=== PATIENT | female | born 1955 | race Caucasian/White ===

== ENCOUNTER → 2017-12-06 16:01 | Outpatient (CLI) | payer BC, SELFPAY | PROVIDERS: Family Provider Family Medicine; PCP Family Medicine; Visit Provider Otolaryngology | DX: J32.9 Chronic sinusitis, unspecified (principal) | CPT/HCPCS: 87070; 87186; 87205 ==

== ENCOUNTER 2018-03-26 16:38 | Emergency (ER) | payer BC, SELFPAY ==
[2018-03-26 16:39] VITALS: BP 154/73; PULSE 101; RESP 16; TEMP 36.1; O2SAT 100; BMI 22.3
--- NOTE | 2018-03-26 17:12 | ED.DCSUM_ITS ---
- ER Visit Summary Date of Service: 03/26/18 Chief Complaint: [Bruising to right hand and wrist] History of Present Illness: The patient is a 63 F [presents the emergency department complaint of bruising to right hand and wrist that started today. Patient was just discharged 2 days ago from the hospital after having a thoracoscopy to remove fluid from her right lung. Patient noticed some swelling to the dorsal aspect of the right hand near the base of the thumb this morning and then increase discoloration to the dorsum of the hand. Patient also noticed some discoloration to the volar aspect of the wrist. Patient denies any recent trauma although she did have 3 IVs in her right arm and hand during her stay at [facility]. Patient denies any chest pain or shortness of breath. Patient denies any injury to the hand or wrist.] Physical Examination: [HEENT-PERRLA, EOMI. Cranial nerves II through XII grossly intact. TMs clear. Mucous membranes moist. No adenopathy. Cardiovascular-regular rate and rhythm without murmur or ectopy Lungs-clear to auscultation, chest wall stable without crepitus or subcu emphysema Abdomen-normoactive bowel sounds, soft, nontender, no rebound or rigidity, no peritoneal signs. Extremities-intact ?4, normal range of motion, normal pulses. Patient has ecchymosis to the volar aspect of the wrist as well as the dorsal aspect of the hand. Normal cap refill in all digits. No edema noted. No evidence of cellulitis. She is neurovascular intact. Test Results: [None indicated] Emergency Department Course and Treatment: [I did review with patient CBC from 2 days ago she had normal hemoglobin and her platelet count was over 500,000. At this point I suspect likely bruising or hematoma related to either IV start or spontaneous blood vessel rupture.] Treatment Plan: [Advised use ice to the area] Disposition: [Discharged home in stable condition] Impression: [Hematoma/bruising right hand and wrist] This note was generated with [employer] dictation software. It may contain incorrect words, spelling, and punctuation that were not noted in review of the chart prior to signing ED Disposition - Plan for ED Patient: Chief Complaint: Upper Extremity Injury Referrals: Atul Garcia MD [Primary Care Provider] -
--- NOTE | 2018-03-26 17:12 | ED.DEP ---
ED Disposition - Plan for ED Patient: Chief Complaint: Upper Extremity Injury Instructions: ED Hematoma Referrals: Atul Garcia MD [Primary Care Provider] - 5-7 Days
== END 2018-03-26 17:27 | disposition home or self-care (01) ==
PROVIDERS: Emergency Provider Emergency Medicine; Family Provider Family Medicine; PCP Family Medicine
DX: S60.221A Contusion of right hand, initial encounter (principal); S60.211A Contusion of right wrist, initial encounter; X58.XXXA Exposure to other specified factors, initial encounter; Y93.9 Activity, unspecified; Y92.9 Unspecified place or not applicable; J44.9 Chronic obstructive pulmonary disease, unspecified; Z79.82 Long term (current) use of aspirin; Z79.899 Other long term (current) drug therapy
CPT/HCPCS: 99282

== ENCOUNTER 2020-06-17 21:23 | Inpatient (IN) | payer BC, SELFPAY ==
[2020-06-17 21:23] VITALS: BP 166/94; PULSE 89; RESP 28; TEMP 36.2; O2SAT 87; BMI 20.6
--- NOTE | 2020-06-17 21:35 | EKG12_ITS ---
Test Reason : CP Blood Pressure : / mmHG Vent. Rate : 083 BPM Atrial Rate : 083 BPM P-R Int : 128 ms QRS Dur : 074 ms QT Int : 384 ms P-R-T Axes : 057 025 034 degrees QTc Int : 451 ms Normal sinus rhythm Possible Inferior infarct , age undetermined Abnormal ECG Confirmed by NABEEL WELCH, RAJESH ([id number]), slot editor LIV HOPKINS ([id number]) on 06/19/2020 1:49:14 PM Referred By: JOÃO Confirmed By:RAJESH LEES MD
--- NOTE | 2020-06-17 21:35 | ED.VIS.CHEST ---
History of Present Illness Chief Complaint: Chest Pain Informant: Patient Onset: Hours - 2 Activity at onset: Rest Timing: Continuous Quality: Pain Location: Substernal - without radiation Current Severity: Mild Maximum Severity: Severe Worsened By: Nothing Relieved By: - - unknown; pt took antacid, drank carbonated beverage and milk, and discomfort is not as bad now. Narrative: Patient had this discomfort is started about 2 hours ago when she was standing in her kitchen. It was associated with feeling diaphoretic, near syncopal, she did not feel her heart skipping or racing. He does not recall having had this before. She has COPD and is not on home oxygen. She has had pleural effusions in the past, and in the process of treating and working those up, she had a heart cath within the past month, she states it was abnormal and it was done at [facility] but she did not receive any stents. As a result of this, she is scheduled for a stress test this week. CVD Risk Factors: Smoking - Quit. Negative for: Hypertension, Diabetes, Hypercholesterolemia, Family History 1' </=55 - Past Medical History (1) COPD (chronic obstructive pulmonary disease) Status: Chronic (2) Bronchiectasis Status: Chronic Past Medical History - Allergies and Home Meds Allergies/Adverse Reactions: Allergies amoxicillin [From Augmentin] Allergy (Verified 06/17/20 21:28) Rash clavulanic acid [From Augmentin] Allergy (Verified 06/17/20 21:28) Rash doxycycline Allergy (Verified 06/17/20 21:28) Rash budesonide [From Symbicort] Adverse Reaction (Verified 06/17/20 21:28) Other fluticasone [From Flonase] Adverse Reaction (Verified 06/17/20 21:28) HEADACHES formoterol [From Symbicort] Adverse Reaction (Verified 06/17/20 21:28) HIGH FEELING Primary Care Physician: Atul Garcia MD [Primary Care Provider] - Doctors: [facility] - Dr. Pittman Lives: Alone Smoking Status: Former smoker - Family History Maternal Family History: Reports: No pertinent history Review of Systems General: Reports: Malaise - Near syncopal, Sweats. Denies: Chills, Fever Eyes: Denies: Visual changes - bilaterally, Diplopia ENT: Denies: Bilateral ear pain, Rhinorrhea, Sore throat Cardiovascular: Reports: Chest pain. Denies: Palpitations, Heart racing Respiratory: Reports: Dyspnea - Resolved. Denies: Cough, Dyspnea on exertion Gastrointestinal: Denies: Abdominal pain, Nausea, Vomiting, Diarrhea, Melena, Hematochezia Genitourinary: Denies: Dysuria, Hematuria, Frequency Musculoskeletal: Denies: Myalgias, Back pain, Swelling, Extremity Pain Skin: Denies: Rash, Wounds Neurological: Denies: Headache, Weakness, Numbness Physical Exam Vital Signs/Narrative: Vital Signs Temp Pulse Resp BP Pulse Ox 06/17/20 21:23 97.2 F L 89 28 H 166/94 H 87 Inital Vital Signs reviewed: Yes General: Well nourished, Well developed, No Acute Distress Head: Normocephalic, Atraumatic Eyes: Perrl, EOMI ENT: Moist mucous membranes, No rhinorrhea Neck: Supple, Nontender, No lymphadenopathy, No JVD Cardiovascular: Regular rate, Regular rhythm, No murmurs, - - Equal bilateral 2+/4 radial pulses Respiratory: No distress, CTA bilaterally, Chest nontender Abdomen: Soft, Nontender, Nondistended, Normal bowel sounds Back: Nontender, Normal Inspection Extremities: Nontender, No edema. Negative for: Calf Tenderness Skin: Normal color, No rash, No Trauma Neurological: Alert, Oriented x3, Cranial nerves II-XII grossly intact, Normal Strength, Normal Sensation Psychological: Normal affect, Normal Mood Diagnostic/Tx/Re-eval Impressions Chest X-Ray 06/17/20 21:44 IMPRESSION: Bilateral pleural effusions, left more than right. Basilar consolidations cannot be excluded. Right apical pleural thickening. Electronically Signed: Goran Restrepo DO at 22:11 EDT Tel [phone], Service support , 06/17/20 21:44 Chest 1 View (Portable) [RAD] Stat Laboratory Results 06/17/20 06/17/20 06/18/20 21:28 21:28 00:45 WBC 11.4 H RBC 4.91 Hgb 11.6 L Hct 38.2 MCV 77.8 L MCH 23.6 L MCHC 30.4 L RDW Std Deviation 52.6 H RDW Coeff of Angie 19.1 H Plt Count 511 H MPV 10.7 Immature Gran % (Auto) 0.300 Neut % (Auto) 79.2 H Lymph % (Auto) 5.4 L [place] % (Auto) 8.8 Eos % (Auto) 5.5 H Baso % (Auto) 0.8 Absolute Neuts (auto) 9.0 H Absolute Lymphs (auto) 0.61 L Nucleated RBC % 0 Sodium 136 Potassium 4.1 Chloride 103 Carbon Dioxide 27.0 Anion Gap 6 BUN 20 H Creatinine 1.12 H Estim Creat Clear Calc 38.80 Est GFR (MDRD) Af Amer 63 Est GFR (MDRD) Non-Af 52 L BUN/Creatinine Ratio 17.9 Glucose 92 Calcium 9.1 Troponin I 0.035 1.140 H* - Rhythm Strip Rhythm Strip: Sinus Rhythm Rate: 83 Ectopy: None - EKG Initial EKG Interpretation: Sinus Rhythm, No Acute Injury Pattern, - - Inferior Q waves without ST segment depression or elevation, or any reciprocal changes. 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 She was pain-free after nitroglycerin, and did not have any recurrence of chest discomfort during her ED stay. Given her recently diagnosed history of coronary disease, I was very concerned about her history tonight. Patient was able to bring up some of her chart in the [facility] system, and about 1 month ago or more she had CT and MRI of the chest, which showed good cardiac function and bilateral pleural effusions and a pericardial effusion. Currently, clinically, she does not have any evidence of pericardial tamponade. She did not have the effusion drained. She is supposed to follow-up at [facility] after her stress test with the semiconductor packages leak tester that she has seen so far there. Patient does not want to go there tonight, so I discussed with cardiology here. They advised doing a delta troponin since the patient is pain-free, and if negative, she can go home and talk with her doctor and get her scheduled stress test if they are comfortable with that. However her delta troponin came back well over 1, indicating a non-STEMI was likely. She is still pain-free. Nitroglycerin paste was placed on her chest. After discussing all this with her, I attempted to transfer to [facility], however they do not have the capacity to accept her at this time due to lack of bed availability. The patient prefers to stay here at [place] if possible. After this I was able to secure a report of her heart cath which was performed 04/30/2020 and shows moderate to severe stenosis (angiographically indeterminate) in the mid and distal segments of the dominant RCA. There are mild luminal irregularities elsewhere and a normal left main. After discussing all this again with Dr. Pulido, he agrees to see the patient and that she may stay here for possible intervention. He advises to make sure she got aspirin and Plavix 300 mg, the patient is still pain-free so no anticoagulation at this time. Discussed with hospitalist. ED Disposition - Plan for ED Patient: Disposition: [facility] Diagnosis: NSTEMI (non-ST elevated myocardial infarction) Referrals: Atul Garcia MD [Primary Care Provider] -
[2020-06-17 21:37] VITALS: O2SAT 94
--- NOTE | 2020-06-17 21:44 | RAD_ITS ---
STUDY: X-RAY CHEST REASON FOR EXAM: Female, 65 years old. CHEST PAIN x2 HOURS -- HX OF CAD, CHF, HTN AND COPD/ ASTHMA TECHNIQUE: Frontal view COMPARISON: 09/07/2016 FINDINGS: The lungs are expanded. Bilateral pleural effusions, left more than right. Basilar consolidations cannot be excluded. Right apical pleural thickening. Normal size heart. Normal mediastinum and agapito. Normal visualized pulmonary arteries. Normal visualized aortic arch and descending thoracic aorta. Normal visualized thoracic spine. Normal visualized ribs, clavicles, and shoulders. There is no demonstrated abnormality of the visualized soft tissue structures of the upper abdomen. RAD/Chest 1 View (Portable) IMPRESSION: Bilateral pleural effusions, left more than right. Basilar consolidations cannot be excluded. Right apical pleural thickening. Electronically Signed: Goran Restrepo DO at 22:11 EDT Tel [phone], Service support ,
[2020-06-17 21:47] VITALS: BP 129/85; PULSE 98; RESP 18; O2SAT 94
[2020-06-17 22:08] LABS: Anion Gap 6 (5-15); BUN 20 mg/dL (7-18); BUN/Creat Ratio 17.9 RATIO (10-20); Calcium,Total 9.1 mg/dL (8.5-10.1); Chloride 103 mmol/L (98-107); Creatinine, Serum 1.12 mg/dL (0.55-1.02); EST Glomerular Filtration Rate 52 mL/min (>60); Est Glom Filt Rate - Afr Amer 63 mL/min (>60); Glucose 92 mg/dL (74-106); Potassium 4.1 mmol/L (3.5-5.1); Sodium Level 136 mmol/L (136-145)
[2020-06-17 22:17] LABS: Absolute Lymphocyte Count 0.61 X10^3/uL (0.83-4.51); Basophil# 0.09 X10^3/uL; Basophil% 0.8 % (0-1); Eosinophil# 0.63 X10^3/uL; Eosinophils% 5.5 % (0-5); Hematocrit 38.2 % (37-47); Hemoglobin 11.6 g/dL (12.0-15.0); Lymphocyte # 0.61 X10^3/ul (4.0); Lymphocyte % 5.4 % (19-41); Mean Corp Hgb Conc 30.4 g/dL (32-36); Mean Corpuscular Hgb 23.6 pg (27.0-32.0); Mean Corpuscular Volume 77.8 fL (81-99); Mean Platelet Vol. 10.7 fl (6.2-12.0); Monocyte% 8.8 % (0-10); NRBC Flagged by Analyzer 0 % (0-5); Neutrophil # 9.01 X10^3/uL (2.7-7.7); Neutrophil % 79.2 % (47-70); Platelet Count 511 K/mm3 (150-450); RBC Distribution Width CV 19.1 % (11.6-14.6); RBC Distribution Width SD 52.6 fl (35.1-43.9); Red Blood Count 4.91 M/mm3 (4.2-5.4); White Blood Count 11.4 K/mm3 (4.4-11.0)
[2020-06-17 22:20] VITALS: BP 129/85; PULSE 89
[2020-06-17] MEDS: Nitroglycerin SL (ED/IMG/CATH) 0.4 MG TABLET SUBLINGUAL (22:20)
[2020-06-17] MEDS: 0.9% Normal Saline 1,000 ML 150 ML IV (22:39)
[2020-06-17 23:00] VITALS: BP 127/78; PULSE 89; RESP 18; O2SAT 96
[2020-06-18] VITALS (27 sets, daily range): BP systolic 94–147; BP diastolic 63–86; PULSE 71–100; RESP 16–19; TEMP 36.4–36.9; O2SAT 91–96; BMI 19.3
[2020-06-18] MEDS: Nitroglycerin Oint 1 INCH PACKET TRANSDERM. (01:47)
--- NOTE | 2020-06-18 02:58 | HP.PCM_ITS ---
Problem List (1) NSTEMI (non-ST elevated myocardial infarction) Status: Acute (2) Bronchiectasis Status: Chronic (3) Former smoker Status: Resolved (4) COPD (chronic obstructive pulmonary disease) Status: Chronic Qualifiers: COPD type: unspecified COPD Qualified Code(s): J44.9 - Chronic obstructive pulmonary disease, unspecified History of Present Illness Date of Admission: 06/18/20 Chief Complaint: chest pain The patient is a 65 year old F with a significant history of COPD and bronchiectasis who presented to the emergency department with substernal chest pain that started about 2 hours before presentation. Her chest pain occurred while at rest. She thought she was having a heart attack. She called her son. Patient and family called her PCP's office who advised the patient to come to the emergency department. Her pain is nonradiating. Associated with her symptom was shortness of breath; diaphoresis and presyncope. She denies nausea or vomiting. She denies any aggravating factors to the pain. She took 2 tablets of 325 mg of aspirin at home. She thinks that the aspirin helped improve the pain. She has a history of pleural effusion and has had thoracentesis. She saw cardiothoracic surgeon and cardiology at [facility]. She had a CT scan and MRI chest. In April 2019 heart cath was done. Her cath showed RCA lesions that were radiographically indeterminate. Stress test was scheduled on 06/19/2020 at [facility]. Emergency department discussed the case with [facility]. Unfortunately [facility] did not have a bed. Emergent department doctor reportedly discussed the case with mechanical and auto body car checker on-call at [facility]. Cardiology accepted to see the patient on consult. Per ED doctor a loading dose of Plavix was recommended by cardiology. Past Medical History Past Medical History (Chronic Problems): Chronic Problems Bronchiectasis (Chronic) COPD (chronic obstructive pulmonary disease) (Chronic) Allergies amoxicillin [From Augmentin] Allergy (Verified 06/17/20 21:28) Rash clavulanic acid [From Augmentin] Allergy (Verified 06/17/20 21:28) Rash doxycycline Allergy (Verified 06/17/20 21:28) Rash budesonide [From Symbicort] Adverse Reaction (Verified 06/17/20 21:28) Other fluticasone [From Flonase] Adverse Reaction (Verified 06/17/20 21:28) HEADACHES formoterol [From Symbicort] Adverse Reaction (Verified 06/17/20 21:28) HIGH FEELING Home Medications: Ambulatory Orders Medication Instructions Recorded Albuterol Inhaler [Ventolin Hfa] 2 puff INHALATION Q4H PRN PRN 09/07/16 Guaifenesin/Pseudoephedrne HCl 1 each PO BID 09/07/16 [Mucinex D ER 1,200-120 mg Tab] Montelukast [Singulair] 10 mg PO DAILY 09/07/16 Multivitamin [Daily Multiple 1 each PO DAILY 09/07/16 Vitamin] Omeprazole [Prilosec] 20 mg PO DAILY 09/07/16 Vitamin B Complex 1 tab PO DAILY 09/07/16 Ascorbic Acid [Vitamin C] 500 mg PO DAILY 09/26/16 Aspirin/Caffeine [Anacin 400-32 mg 1 each PO DAILY PRN 09/26/16 Tablet] Lorazepam [Ativan] 0.5 mg PO BID PRN PRN 09/26/16 Budesonide Inhaler 180 mcg 1 puff INHALATION BID 06/17/20 [Pulmicort Inhaler 180 mcg] Bumetanide [Bumex] 0.5 mg PO DAILY 06/17/20 Colchicine [Colcrys] 0.6 mg PO DAILY 06/17/20 Ipratropium/Albuterol Respimat 1 puff INHALATION 4X/DAY 06/17/20 [Combivent Respimat Inhal [place]] Levothyroxine [Synthroid] 100 mcg PO DAILY 06/17/20 Potassium Chloride 30 meq PO BID 06/17/20 Spironolactone 12.5 mg PO DAILY 06/17/20 Azithromycin 250 mg PO 06/18/20 Surgical History: - - History of thoracentesis. Lives: Alone Smoking Status: Former smoker - *Family History Maternal History Items: Cancer - Colon, Diabetes Paternal History Items: Heart Disease Review of Systems Constitutional: Denies: Chills, Fever, Weight Change HEENT: Denies: Head Aches, Sinus Congestion, Sinus Drainage Cardiovascular: Reports: Chest Pain. Denies: Palpitations Respiratory: Denies: Cough, Shortness of breath at rest, Sputum production Gastrointestinal: Denies: Abdominal Pain, Nausea, Vomiting Genitourinary: Denies: Dysuria Musculoskeletal: Denies: Joint Pain, Joint Tenderness Skin: Denies: Rash, Wounds Neurological: Denies: Numbness, Tingling, Focal weakness Psychiatric: Denies: Anxiety, Depression, Homicidal Ideations, Suicidal Ideations Hematologic/ Lymphatic: Denies: Easy Bruising, Easy Bleeding VTE Information - Inpt Only VTE Present on Admission: No VTE Mechan Device Prophylaxis: None VTE Pharm Prophylaxis ordered?: Yes Patient Problems: Active and Suspected Problems NSTEMI (non-ST elevated myocardial infarction) (Acute) - Physical Exam Vitals/I&O's: Vital Signs Temp Pulse Resp BP Pulse Ox 97.2 F L 87 18 145/84 H 93 06/17/20 21:23 06/18/20 01:50 06/18/20 01:50 06/18/20 01:50 06/18/20 01:50 Oxygen Delivery Method Room Air Weight: 49.6 kg Body Mass Index (BMI) 20.6 General: Alert, Oriented x3, Cooperative HEENT: Atraumatic, PERRLA, EOMI, Normocephalic Neck: Supple, No JVD, Negative Carotid Bruits Lungs: Clear to auscultation, Normal air movement Cardiovascular: Regular rate, No murmurs Abdomen: Bowel Sounds Present, Soft, Non Tender Extremities: No edema, Capillary Refill Less than 3 Seconds, Edema - Bilateral feet edema left more than right. Skin: No rashes, No breakdown Musculoskeletal: No Tenderness to Palpation of Joints or Extremities Neurological: Cranial nerves II-XII grossly intact Psych/Mental Status: Normal Affect, Appropriate Laboratory Results 06/17/20 21:28: WBC 11.4 H, RBC 4.91, Hgb 11.6 L, Hct 38.2, MCV 77.8 L, MCH 23.6 L, MCHC 30.4 L, RDW Std Deviation 52.6 H, RDW Coeff of Angie 19.1 H, Plt Count 511 H, MPV 10.7, Immature Gran % (Auto) 0.300, Neut % (Auto) 79.2 H, Lymph % (Auto) 5.4 L, [place] % (Auto) 8.8, Eos % (Auto) 5.5 H, Baso % (Auto) 0.8, Absolute Neuts (auto) 9.0 H, Absolute Lymphs (auto) 0.61 L, Nucleated RBC % 0 06/17/20 21:28: Sodium 136, Potassium 4.1, Chloride 103, Carbon Dioxide 27.0, Anion Gap 6, BUN 20 H, Creatinine 1.12 H, Estim Creat Clear Calc 38.80, Est GFR (MDRD) Af Amer 63, Est GFR (MDRD) Non-Af 52 L, BUN/Creatinine Ratio 17.9, Glucose 92, Calcium 9.1, Troponin I 0.035 06/18/20 00:45: Troponin I 1.140 H* Current Medications Sodium Chloride () 1,000 mls @ 150 mls/hr IV .Q6H40M ADRIANA Last Admin: 06/17/20 22:39 Dose: 150 mls/hr Documented by: Nitroglycerin (Nitroglycerin Sl (Ed/Img/Cath) 0.4 Mg Tablet) 0.4 mg SUBLINGUAL Q5M PRN PRN Reason: Chest pain Last Admin: 06/17/20 22:20 Dose: 0.4 mg Documented by: Assessment/Plan All Active Problems NSTEMI (non-ST elevated myocardial infarction) (Acute) Former smoker (Resolved) Non-ST elevation AR Place on a monitored bed at PCU Chest x-ray was interpreted by radiologist and actual chest x-ray image reviewed by me: Bilateral pleural effusion, left more than right. Basilar consolidation, excluded. Right apical pleural thickening. EKG shows sinus rhythm. ASA 81 mg p.o. daily ordered Nitroglycerin paste was placed at the emergency department, continued. Morphine as needed for pain ordered We will check lipid panel. Statin: Lipitor 40 mg nightly. Initial troponin was 0.035. He trended to 1.140. Continue trend troponin. Stat EKG as needed for chest pain We will keep patient n.p.o. On home bumetanide for pleural effusion and pericardial effusion held in the setting of a possible cardiac cath. Gentle IV hydration. Cardiology consult Hypothyroidism Synthroid continued HTN Blood pressure was not within goal Aldactone continued Demadex held secondary to possible cardiac cath. Trend blood pressure and adjust blood pressure medications. DVT prophylaxis SCD ordered. Inpatient E&M: [id number] Init Hosp L3
[2020-06-18] MEDS: Clopidogrel Bisulfate 300 MG Tablet PO (03:14)
--- NOTE | 2020-06-18 03:27 | EKG12_ITS ---
Test Reason : ADMISSION EKG Blood Pressure : / mmHG Vent. Rate : 092 BPM Atrial Rate : 092 BPM P-R Int : 134 ms QRS Dur : 074 ms QT Int : 372 ms P-R-T Axes : 052 011 016 degrees QTc Int : 460 ms Normal sinus rhythm Inferior infarct , age undetermined Abnormal ECG When compared with ECG of 17-JUN-2020 21:30, MANUAL COMPARISON REQUIRED, DATA IS UNCONFIRMED Confirmed by NABEEL WELCH, RAJESH ([id number]), content editor LIV HOPKINS ([id number]) on 06/19/2020 1:59:58 PM Referred By: CHRISTINE Confirmed By:RAJESH LEES MD
[2020-06-18] MEDS: 0.9% Normal Saline 1,000 ML 75 ML IV (03:30)
[2020-06-18 04:00] LABS: Cholesterol 148 mg/dL (200); High Density Lipoprotein 54 mg/dL; Triglycerides 112 mg/dL; Very Low Density Lipoprotein 22 mg/dL (5-40)
[2020-06-18] MEDS: Atorvastatin Calcium 40 MG Tablet PO ×2 (04:56→21:29)
[2020-06-18] MEDS: Levothyroxine 100 MCG Tablet PO (04:57)
[2020-06-18] MEDS: Budesonide Respules 0.5 MG/2 ML AMPUL.NEB. INHALATION ×2 (06:41→18:45)
[2020-06-18] MEDS: Ipratropium/Albuterol Sulfate 3 ML AMPUL.NEB INHALATION ×2 (06:41→18:45)
[2020-06-18] MEDS: Clopidogrel Bisulfate 75 MG Tablet PO (07:46)
[2020-06-18] MEDS: Aspirin E.C. 81 MG Tablet PO (07:46)
[2020-06-18] MEDS: Pantoprazole Sodium 20 MG Tablet PO (07:46)
[2020-06-18] MEDS: guaiFENesin 1,200 MG Tablet 1200 MG PO ×2 (07:46→21:30)
--- NOTE | 2020-06-18 07:50 | CON.PCM_ITS ---
Reason for Consult Date of Consultation: 06/18/20 Reason for Consultation: Chest discomfort. History of Present Illness: The patient is a 65 year old F with a history of bronchiectasis who was being followed by the cable repairer at the [facility] system. She apparently has had bilateral pleural effusions which have been undergoing investigation. She was transferred to [facility] where she underwent a cardiac catheterization according to her in April of this year. She was noted to have indeterminate lesions in the right coronary artery and she was scheduled to have a stress test in a few days presumably to assess the significance of these lesions. She presented to the emergency room yesterday with chest discomfort which was retrosternal woke her up from sleep. Her initial EKG was unremarkable and troponins were unremarkable. Attempts to campbell sfer her to her primary injection maintenance technician at the [facility] in [place] were unsuccessful due to bed issues. In the meantime her troponins were noted to be elevated. We were asked to see her for further consideration and treatment. At this particular time she appears to be free of any chest discomfort. She has been short of breath with minimal exertion. She has a history of previous bilateral pleural effusions which are being investigated. [] Past Medical History Allergies/Adverse Reactions: Allergies amoxicillin [From Augmentin] Allergy (Verified 06/17/20 21:28) Rash clavulanic acid [From Augmentin] Allergy (Verified 06/17/20 21:28) Rash doxycycline Allergy (Verified 06/17/20 21:28) Rash tiotropium Adverse Reaction (Unknown, Verified 06/18/20 03:54) PT UNSURE OF REACTION budesonide [From Symbicort] Adverse Reaction (Verified 06/17/20 21:28) Other bumetanide Adverse Reaction (Verified 06/18/20 03:54) PT UNSURE OF REACTION cefdinir Adverse Reaction (Verified 06/18/20 03:54) Bleeding pt reported red stool clindamycin Adverse Reaction (Verified 06/18/20 03:54) Abd cramps/diarrhea GI upset fluticasone [From Flonase] Adverse Reaction (Verified 06/17/20 21:28) HEADACHES formoterol [From Symbicort] Adverse Reaction (Verified 06/17/20 21:28) HIGH FEELING furosemide Adverse Reaction (Verified 06/18/20 03:54) NEEDS FOLLOW-UP pt reports dry mouth and weakness w/ many diuretics spironolactone Adverse Reaction (Verified 06/18/20 03:54) NEEDS FOLLOW-UP pt reports dry mouth and weakness w/ many diuretics umeclidinium Adverse Reaction (Verified 06/18/20 03:54) Shortness of breath SOB, myalgia Home Medications: Ambulatory Orders Medication Instructions Recorded Albuterol Inhaler [Ventolin Hfa] 2 puff INHALATION Q4H PRN PRN 09/07/16 Guaifenesin/Pseudoephedrne HCl 1 each PO BID 09/07/16 [Mucinex D ER 1,200-120 mg Tab] Montelukast [Singulair] 10 mg PO DAILY 09/07/16 Multivitamin [Daily Multiple 1 each PO DAILY 09/07/16 Vitamin] Omeprazole [Prilosec] 20 mg PO DAILY 09/07/16 Vitamin B Complex 1 tab PO DAILY 09/07/16 Ascorbic Acid [Vitamin C] 500 mg PO DAILY 09/26/16 Aspirin/Caffeine [Anacin 400-32 mg 1 each PO DAILY PRN 09/26/16 Tablet] Lorazepam [Ativan] 0.5 mg PO BID PRN PRN 09/26/16 Budesonide Inhaler 180 mcg 1 puff INHALATION BID 06/17/20 [Pulmicort Inhaler 180 mcg] Bumetanide [Bumex] 0.5 mg PO DAILY 06/17/20 Colchicine [Colcrys] 0.6 mg PO DAILY 06/17/20 Ipratropium/Albuterol Respimat 1 puff INHALATION 4X/DAY 06/17/20 [Combivent Respimat Inhal [place]] Levothyroxine [Synthroid] 100 mcg PO DAILY 06/17/20 Potassium Chloride 30 meq PO BID 06/17/20 Spironolactone 12.5 mg PO DAILY 06/17/20 Azithromycin 250 mg PO 06/18/20 Past Medical History (Chronic Problems): Chronic Problems Bronchiectasis (Chronic) COPD (chronic obstructive pulmonary disease) (Chronic) Surgical History: - - History of thoracentesis. - *Family History Maternal History Items: Cancer - Colon, Diabetes Paternal History Items: Heart Disease Lives: Alone Smoking Status: Former smoker Tobacco Use: Cigarettes Review of Systems - Review of Systems General: Denies: Fever, Night Sweats, Fatigue HEENT: Denies: Vision Change Cardiovascular: Reports: Chest Discomfort, Chest Discomfort at Rest, Shortness of Breath. Denies: Orthopnea, PND, Peripheral Edema, Palpitations, Lightheadedness, Dizziness, Near Syncope, Syncope Respiratory: Denies: Cough, Sputum Production, Hemoptysis Gastrointestinal: Denies: Hematemesis, Hematochezia, Melena Genitourinary: Denies: Dysuria, Hematuria Muscoloskeletal: Denies: Myalgias Skin: Denies: Rash Neurological: Denies: Dizziness Hematologic/ Lymphatic: Denies: Lymph Node Enlargement Subjectve: Patient seen and evaluated. Appears to be stable Objective: Vital Signs Temp Pulse Resp BP Pulse Ox 98.4 F 97 19 H 147/86 H 93 06/18/20 03:27 06/18/20 04:02 06/18/20 03:27 06/18/20 03:27 06/18/20 03:27 Oxygen Delivery Method Room Air Weight: 102 lb 4.712 oz Body Mass Index (BMI) 19.3 Intake and Output for Last 24 Hours 06/16/20 06/17/20 06/18/20 23:59 23:59 23:59 Intake Total 885 / 885 Balance 885 / 885 General: Awake, Alert, Oriented x 3 HEENT: PERRL, EOMI, Sclera Non Icteric Neck: Supple, Good ROM, No Lymph Node Enlargement Lungs: Clear to auscultation Cardiovascular: Regular Rhythm, Normal S1, Normal S2, No Murmurs, No Rubs, No Gallops Vascular: No Carotid Bruits, Normal Femoral Pulses, Normal Radial Pulses, Normal Dorsalis Pedal Pulse, Normal Posterior Tibial Pulses Abdomen: Bowel Sounds Present, Soft, Non Tender, No HSM, No Organomegaly Extremities: No Cyanosis, No Clubbing, No edema Musculoskeletal: No Erythema Skin: No Rashes Lymphatic: No Lymph Node Enlargement Neurological: No Focal Motor or Sensory Deficit Psych/Mental Status: Appropriate 06/17/20 21:28: WBC 11.4 H, RBC 4.91, Hgb 11.6 L, Hct 38.2, MCV 77.8 L, MCH 23.6 L, MCHC 30.4 L, Plt Count 511 H, MPV 10.7, Immature Gran % (Auto) 0.300, Neut % (Auto) 79.2 H, Lymph % (Auto) 5.4 L, [place] % (Auto) 8.8, Eos % (Auto) 5.5 H, Baso % (Auto) 0.8, Absolute Neuts (auto) 9.0 H, Nucleated RBC % 0 06/17/20 21:28: Sodium 136, Potassium 4.1, Chloride 103, Carbon Dioxide 27.0, Anion Gap 6, BUN 20 H, Creatinine 1.12 H, Est GFR (MDRD) Af Amer 63, Est GFR (MDRD) Non-Af 52 L, BUN/Creatinine Ratio 17.9, Glucose 92, Calcium 9.1, Troponin I 0.035 06/18/20 00:45: Troponin I 1.140 H* 06/18/20 03:38: Triglycerides 112, Cholesterol 148, LDL Cholesterol 72, VLDL Cholesterol 22, HDL Cholesterol 54 06/18/20 03:38: Troponin I 1.480 H* Rhythm: EKG: Normal sinus rhythm with no acute changes ECHO: Stress Test: Cardiac Cath: PCI: CT Surgery: Holter monitor: EPS: PPM: CXR: Chest CT Scan: Assessment/Plan 1. Non-ST elevation myocardial infarction. * Patient presents with chest discomfort and is noted to have a non-ST elevation myocardial infarction. On the basis of the above the patient will be evaluated with a cardiac catheterization. The risk benefits and alternatives have been explained to her she understands and agrees to proceed. * Would administer aspirin * Continue clopidogrel * Will attempt low-dose beta-guzman * High intensity statin. * Depending on the findings further recommendations will be made. * 2. Bilateral pleural effusions the * The above will be evaluated and investigated per the previous regimen. * * Thank you for allowing me to participate in the care of your patient. Please don't hesitate to call if any issues arise. * Addendum: Normal left main coronary artery. Left anterior descending artery with minimal disease. Left circumflex artery with minimal disease. Right coronary artery which is calcified tortuous with multiple areas of moderate to moderately severe disease. Preserved left ventricular ejection fraction with almost hypertrophic cardiomyopathy appearance. Based on the above angiographic findings we will consider angioplasty and stenting to the right coronary artery.
--- NOTE | 2020-06-18 09:00 | CASEMGMT ---
According to the [place] website, the following are in-network tertiary facilities: [facility], [place], [facility], [facility], [facility], [facility], [facility], and . Miky MEDRANO CM
[2020-06-18 10:15] LABS: ACT Activated Clotting Time 197 sec (74-137)
--- NOTE | 2020-06-18 10:48 | CASEMGMT ---
MARCELA JAIMES assessment: Face to Face with patient for initial transition planning/care coordination assessment. MARCELA JAIMES introduced self and role at [facility], pt voices understanding and consents to assessment at this time. Pt is sitting up in bed in no distress at this time. Pt's son, Damion Everett, is at bedside. Pt is A/Ox4 at this time and answers all questions appropriately at this time. Care providers, pharmacy, and demographics verified/updated at this time. Presentation: Pt presents with CP starting about 2 hours ago when she was changing clothes Admitting dx: NSTEMI PCP: Jose Specialists: scottie Tripathi; Everette, cardio in [place] Preferred Pharmacy: [facility] Insurance: [employer] Prescription Benefit: [employer] Living Will/HPOA: Pt states has HPOA and her son brought it in to be copied at this time. Copy placed on chart by Raheem U special education secretary and copy back to pt/son at this time. Pt's son, Damion Everett, is HPOA. LNOK: Damion Everett, son Living Arrangements: Pt states lives alone in 1 story home with laundry in basement and states no concerns at home at this time. Pt states is independent with ADL's. Transportation: Pt states drives self and states no transportation concerns at this time. DME/HHC: Pt states no current DME or need for any at this time. Pt states no hx of HHC or SNF in the past. Pt states no concerns with going home at time of discharge. Pt states is retired. Pt states does not smoke cigarettes but does occasionally drink ETOH. Pt states no further concerns/needs at this time. CM to follow for any further discharge planning/needs. Advised pt to ask for CM if any further questions/concerns/needs arise, voices understanding. Pt Goal: Home Plan[place] MARCELA JAIMES
[2020-06-18] MEDS: 0.9% Normal Saline 1,000 ML 30 ML IV (11:00)
--- NOTE | 2020-06-18 11:00 | EKG12_ITS ---
Test Reason : AM EKG Blood Pressure : / mmHG Vent. Rate : 073 BPM Atrial Rate : 073 BPM P-R Int : 138 ms QRS Dur : 080 ms QT Int : 410 ms P-R-T Axes : 048 005 021 degrees QTc Int : 451 ms Normal sinus rhythm Inferior infarct (cited on or before 17-JUN-2020) Abnormal ECG When compared with ECG of 18-JUN-2020 11:21, Nonspecific T wave abnormality has replaced inverted T waves in Inferior leads Confirmed by NABEEL WELCH, RAJESH ([id number]), publications editor LIV HOPKINS ([id number]) on 06/24/2020 1:47:16 PM Referred By: GÉNESIS Confirmed By:RAJESH LEES MD
--- NOTE | 2020-06-18 11:00 | CL.PCI_ITS ---
PCI Cardiac Cath Report PCI Report: Procedure: Stenting of the proximal and distal right coronary artery Clinical history: 65-year-old Y female with non-STEMI and no history of severe distal right coronary artery stenosis Indication: Non-STEMI Heart failure: Chronic diastolic left ventricular dysfunction Stress/imaging: Not available CAD presentation: Non-STEMI with functional class IV angina Summary: #1 successful stenting of the distal right coronary artery before bifurcation. 80% stenosis was reduced to 0%. HELENA-3 flow was maintained. Type A lesion #2 Successful stenting of the proximal to mid right coronary artery type B2 lesion with some calcification. Pre intervention stenoses was 60 to 70%. Post residual stenosis was 0%. HELENA-3 flow was maintained #3 preserved left ventricular systolic wall motion #4 beta-guzman and diuretic as well as RASHAUN inhibitor with statin will be managed by Dr. Pulido Procedure Details The risks, benefits, complications, treatment options, and expected outcomes were discussed with the patient. The patient and/or family concurred with the proposed plan, giving informed consent. Patient was brought to the label stitcher after IV hydration . Patient was further sedated with IV conscious sedation. Subject was prepped and draped in the usual manner. Using the modified Seldinger access technique, a 6 Persian sheath was placed in the right radial artery. Standard diagnostic catheters were used. Exchanges were performed over J-wire. At the end of the procedures, all catheters and sheaths were removed and bleeding was stopped with closure device using TR band Findings: Moderate Sedation: Conscious sedation was administered under my supervision with cardiorespiratory monitoring performed by independent and qualified nursing personnel. Medications and dosages are recorded separately in the electronic medical record. Hemodynamics: Dominance: Right Coronary Anatomy: Right Coronary Artery: The PCI was performed after the diagnostic angiogram. The left coronary system anatomy has been mentioned in Dr. Pulido cardiac catheterization report. The right coronary artery was a large ectatic vessel with mild degree of calcification. There was 60 to 70% stenoses in multiple area in the proximal to mid segment. The distal right coronary artery had a short segment of stenosis compromising lumen by 80%. The posterolateral branches and posterior descending were normal in caliber and free of significant disease Intervention Lesion: Stenting of the right coronary artery Guiding Catheter used 6 Persian AL 0.75 Guide Wire used: Run-through balloon used: [place] Cutting Balloon: 2.5x10 stents Used: Synergy: 3.0x20, 3.5x24. Guide liner was used Procedure in detail: Run-through had no difficulty passing down the distal right coronary artery. With the guide liner, the cutting balloon was able to go down to the distal right coronary artery. 2 inflation was done at 16 carter. A 3.0 stent was then deployed distally and inflated to 12 carter. Residual stenosis was 0%. HELENA-3 flow was maintained. The 3.5 stent was then deployed from the proximal to the midportion and inflated to 18 carter. This was postdilated with a 4.0 NC balloon at 16 carter. Residual stenosis was 0%. HELENA-3 flow was maintained Estimated Blood Loss: Minimal} Complications: None Disposition condition: Stable This note was generated with [employer] dictation software. It may contain incorrect words, spelling, and punctuation that were not noted in checking the note before signing.
--- NOTE | 2020-06-18 11:16 | PCM.PN.HOSP ---
Patient Problems: Active and Suspected Problems NSTEMI (non-ST elevated myocardial infarction) (Acute) Subjective: He was better, no chest pain this morning. Vitals/I&O's: Vital Signs Temp Pulse Resp BP Pulse Ox 97.5 F L 91 18 118/83 H 93 06/18/20 10:30 06/18/20 11:00 06/18/20 11:00 06/18/20 11:00 06/18/20 11:00 Oxygen Flow Rate (L/min) 2 Oxygen Delivery Method Room Air Weight: 102 lb 4.712 oz Body Mass Index (BMI) 19.3 Intake and Output for Last 24 Hours 06/16/20 06/17/20 06/18/20 23:59 23:59 23:59 Intake Total 885 / 885 Balance 885 / 885 General: Alert, Oriented x3, Cooperative, No apparent distress HEENT: Atraumatic, PERRLA, EOMI, Normocephalic Oral: Moist Mucosa Neck: Supple, No JVD Lungs: Clear to auscultation, Normal air movement, No rhonchi, No wheeze, No rales, Diminished Cardiovascular: Regular rate, Regular Rhythm, Normal S1, Normal S2, No murmurs Abdomen: Soft, Non Tender, Non-Distended, No Hepato-splenomegaly Extremities: No edema, Capillary Refill Less than 3 Seconds Skin: No rashes, No breakdown Neurological: Neuro grossly intact, Sensory exam intact to light touch and pain Psych/Mental Status: Normal Affect, Appropriate Laboratory Results 06/17/20 21:28: WBC 11.4 H, RBC 4.91, Hgb 11.6 L, Hct 38.2, MCV 77.8 L, MCH 23.6 L, MCHC 30.4 L, RDW Std Deviation 52.6 H, RDW Coeff of Angie 19.1 H, Plt Count 511 H, MPV 10.7, Immature Gran % (Auto) 0.300, Neut % (Auto) 79.2 H, Lymph % (Auto) 5.4 L, [place] % (Auto) 8.8, Eos % (Auto) 5.5 H, Baso % (Auto) 0.8, Absolute Neuts (auto) 9.0 H, Absolute Lymphs (auto) 0.61 L, Nucleated RBC % 0 06/17/20 21:28: Sodium 136, Potassium 4.1, Chloride 103, Carbon Dioxide 27.0, Anion Gap 6, BUN 20 H, Creatinine 1.12 H, Estim Creat Clear Calc 38.80, Est GFR (MDRD) Af Amer 63, Est GFR (MDRD) Non-Af 52 L, BUN/Creatinine Ratio 17.9, Glucose 92, Calcium 9.1, Troponin I 0.035 06/18/20 00:45: Troponin I 1.140 H* 06/18/20 03:38: Triglycerides 112, Cholesterol 148, LDL Cholesterol 72, VLDL Cholesterol 22, HDL Cholesterol 54 06/18/20 03:38: Troponin I 1.480 H* 06/18/20 09:43: Activated Clotting Time 197 H Current Medications Albuterol Sulfate (Albuterol 2.5 Mg/3 Ml Vial.Neb.) 2.5 mg INHALATION Q4H PRN PRN PRN Reason: Bronchodialation Albuterol/Ipratropium (Ipratropium/Albuterol Sulfate 3 Ml Ampul.Neb) 3 ml INHALATION Q6HWA.RT [facility] Last Admin: 06/18/20 06:41 Dose: 3 ml Documented by: Ascorbic Acid (Ascorbic Acid 500 Mg Tablet) 500 mg PO DAILY [facility] Aspirin (Aspirin E.C. 81 Mg Tablet) 81 mg PO DAILY@0800 [facility] Last Admin: 06/18/20 07:46 Dose: 81 mg Documented by: Atorvastatin Calcium (Atorvastatin Calcium 40 Mg Tablet) 40 mg PO QHS [facility] Last Admin: 06/18/20 04:56 Dose: 40 mg Documented by: Budesonide (Budesonide Respules 0.5 Mg/2 Ml Ampul.Neb.) 0.5 mg INHALATION Q12H.RT [facility] Last Admin: 06/18/20 06:41 Dose: 0.5 mg Documented by: Clopidogrel Bisulfate (Clopidogrel Bisulfate 75 Mg Tablet) 75 mg PO DAILY [facility] Last Admin: 06/18/20 07:46 Dose: 75 mg Documented by: Colchicine (Colchicine 0.6 Mg Tablet) 0.6 mg PO DAILY [facility] Guaifenesin (Guaifenesin 1,200 Mg Tablet) 1,200 mg PO BID [facility] Last Admin: 06/18/20 07:46 Dose: 1,200 mg Documented by: Heparin Sodium (Beef Lung) (Heparin Lock 500 Unit/5 Ml In 10 Ml Syringe) 500 unit IV UD PRN PRN Reason: HEPARIN FLUSH Sodium Chloride () 1,000 mls @ 30 mls/hr IV .[id number] [facility] Labetalol HCl (Labetalol (Prefilled) 20 Mg/4 Ml) 5 mg IV X1 PRN PRN Reason: SBP >160 when pulling sheath Stop: 06/20/20 10:54 Levothyroxine Sodium (Levothyroxine 100 Mcg Tablet) 100 mcg PO DAILY@0600 [facility] Last Admin: 06/18/20 04:57 Dose: 100 mcg Documented by: Lorazepam (Lorazepam 0.5 Mg Tablet) 0.5 mg PO BID PRN PRN PRN Reason: ANXIETY Metoprolol Tartrate (Metoprolol Tartrate 50 Mg Tablet) 50 mg PO BID [facility] Montelukast Sodium (Montelukast 10 Mg Tablet) 10 mg PO DAILY [facility] Morphine Sulfate (Morphine 2 Mg/Ml Syringe) 2 mg IV Q3H PRN PRN PRN Reason: Pain Score 6-10 Multivitamins (Multivitamins,Therapeutic Tablet) [facility] Multivitamins (Vitamin B Comp W-C Capsule) 1 capsule PO DAILY [facility] Nutritional Formula (Lactose Free) (Ensure Enlive 120 Ml Liquid) 120 ml PO 4X/DAY [facility] Ondansetron HCl (Ondansetron 4 Mg/2 Ml Vial) 4 mg IV Q8H PRN PRN PRN Reason: NAUSEA/VOMITING Pantoprazole Sodium (Pantoprazole Sodium 20 Mg Tablet) 20 mg PO DAILY [facility] Last Admin: 06/18/20 07:46 Dose: 20 mg Documented by: Pseudoephedrine HCl (Pseudoephedrine 60 Mg Tablet) 60 mg PO Q6 [facility] Last Admin: 06/18/20 04:57 Dose: 60 mg Documented by: Sodium Chloride (0.9% Saline Lock 10 Ml Syringe) 10 - 40 ml IV UD PRN PRN Reason: SALINE FLUSH Sodium Chloride (0.9% Normal Saline 500 Ml Iv.Soln.) 500 ml IV BOLUS PRN PRN Reason: VASO-VAGAL PROTOCOL Spironolactone (Spironolactone 25 Mg Tablet) 12.5 mg PO DAILY [facility] STROKE Vital Signs/Narrative: Vital Signs Temp Pulse Resp BP Pulse Ox 06/18/20 11:00 91 18 118/83 H 93 06/18/20 10:46 100 18 121/79 H 96 06/18/20 10:30 97.5 F L 91 18 118/84 H 95 Medical Necessity - Tobacco Use Smoking Status: Former smoker Tobacco Use: Cigarettes Assessment/Plan All Active Problems NSTEMI (non-ST elevated myocardial infarction) (Acute) Former smoker (Resolved) 1. Non-STEMI/HTN/HLD -Says that her doctor was concerned that it could possibly either coronary artery disease or pericarditis. They were slow in starting any medications given all of her allergies to medications. -She underwent a cardiac cath 06/18/2020, and she had 2 drug-eluting stents placed in her right coronary artery -Continue with beta-guzman and diuretics as well as RASHAUN inhibitor and a statin. She also need to be on dual antiplatelets -Given the fact that she had significant coronary artery disease, can likely discontinue her colchicine on discharge 2. COPD not in exacerbation -Stable -Continue with budesonide -Continue with Singulair as well as duo nebs 3. Hypothyroidism -Stable -Continue with Synthroid 4. GERD -Stable -Continue with PPI DVT: SCDs
[2020-06-18] MEDS: Furosemide 40 MG/4 ML Vial IV (11:25)
[2020-06-18] MEDS: 0.9% Saline Lock 10 ML Syringe IV (11:25)
[2020-06-18] MEDS: Metoprolol Tartrate 50 MG Tablet PO ×2 (11:27→21:29)
[2020-06-18 11:52] LABS: Ferritin 5 ng/mL (8-252); Iron 22 ug/dL (50-170); Iron Binding Capacity,Total 327 ug/dL (250-450); PERCENT IRON SATURATION 6.7 % (15.0-55.0)
[2020-06-18] MEDS: Vitamin B Comp W-C Capsule 1 CAP PO (13:02)
[2020-06-18] MEDS: Ascorbic Acid 500 MG Tablet PO (13:02)
[2020-06-18] MEDS: Spironolactone 25 MG Tablet 12.5 MG PO (13:03)
[2020-06-18] MEDS: Multivitamins,Therapeutic Tablet 1 TABLET PO (13:03)
--- NOTE | 2020-06-18 13:31 | CRPHASE1_ITS ---
Patient Communication PHII Cardiac Rehab Discussed with Patient:: Yes Guide to Cardiac Rehab Given to Patient:: Yes Cardiac Rehab Facility Choice List Given to Patient:: Yes Choice Program [facility] CR PHII:: Communication Given to CR Choice Program Other:: Communication Given to CR Last Repairer Helper:: Carlos Pulido Phase II Cardiac Rehab:: Yes Sessions:: 36 sessions - 3 days/wk, 12 weeks Risk Factors/Lifestyle Smoking Status: Former smoker Second-Hand Smoke:: No Hx Hypertension: No Hx Diabetes Mellitus Type 1: No Hx Diabetes Mellitus Type 2: No Hx Metabolic Disorders: No Hx Dyslipidemia: No Hx Obesity: No Post-Menopausal: Yes ETOH: No Caffeine: No Substance Abuse: No Risk Factor for Sedentary Lifestyle: Moderate Risk Past Cardiac Illness: Coronary Artery Disease, Myocardial Infarction Laboratory Values: Cardiac Rehab Phase I Labs Triglycerides 112 mg/dL (-199) 06/18/20 03:38 Cholesterol 148 mg/dL (200) 06/18/20 03:38 LDL Cholesterol 72 mg/dL (0-130) 06/18/20 03:38 HDL Cholesterol 54 mg/dL (40-) 06/18/20 03:38 Phase I Education Given On:: [place], Nutrition, Antiplatelet medication Issues Affecting Care:: None Knowledge of Condition:: No Learning Preferences: Verbal Cardiac Rehabilitation Info Cardiac Rehabilitation Program Information: Cardiac Rehabilitation is important for patients like you who are recovering from a heart problem. Cardiac rehabilitation programs are recognized as integral to the continued care of the patient with coronary heart disease. The cardiac rehabilitation program is designed to optimize a patient's physical, psychological, and social functioning. Health neonatal intensive care nurse work in cardiac rehabilitation programs and assist you with getting the treatments you need to get stronger and healthier - like exercise, healthy eating habits, and medications. Cardiac rehabilitation has been show to help people with heart problems live longer and have better life enjoyment than people who do not go to cardiac rehabilitation. Please contact the Cardiac Rehabilitation Program at [facility] at in two weeks if you have not heard from them.
--- NOTE | 2020-06-18 13:35 | CRPH1.INSTRU ---
General Education CAD and cardiac anatomy and function:: Patient communicates acknowledgment, Family communicates acknowledgment Explanation of diagnoses and procedures:: Patient communicates acknowledgment, Family communicates acknowledgment Sign/Symptoms of PA:: Patient communicates acknowledgment, Family communicates acknowledgment Antiplatelet therapy: Patient communicates acknowledgment, Family communicates acknowledgment Proper use of NTG-SL: Patient communicates acknowledgment, Family communicates acknowledgment Emergency procedures and activation of EMS: Patient communicates acknowledgment, Family communicates acknowledgment Compliance of all prescribed medications: Patient communicates acknowledgment, Family communicates acknowledgment Smoking Recommendations Include:: Previous smoker; encourage continued cessation Nicotine/Smoking Response Code:: Patient communicates acknowledgment Sedentary Patient Sedentary Risk Factors Are:: Lack of regular exercise Recommendations Include:: Aerobic exercise 5-7 times/week for 20-30 minutes continuously, Benefits of regular exercise, Discussed home walking program, Monitored Outpatient Cardiac Rehab Sedentary Response Code:: Patient communicates acknowledgment
--- NOTE | 2020-06-18 17:07 | CL.D_ITS ---
Patient Name: LOUISE ROSALES Study Date: 06/18/2020 Performing: Carlos Pulido MD Ht: 61 inches 155 cm : 1955 Wt: 101.5 lbs 46 kg Age: 65 Gender: female BSA: 1.42 PROCEDURE(S) PERFORMED [id number] W OR WO PTCA, SINGLE CORONARY ARTERY CLINICAL PROFILE AND INDICATIONS Indications: Suspected CAD Heart Failure: None Stress/Imaging Stress/Image Study Performed: No CONCLUSIONS Significant diffuse ectatic disease noted in the right coronary artery in a vessel which is mildly ca lcified. The distal right coronary artery appears to be more significantly diseased with a 75% steno tic lesion. Minimal disease noted in the left anterior descending artery and circumflex artery.. RECOMMENDATIONS Referred for immediate PCI DESCRIPTION OF PROCEDURE The patient arrived to the procedure lab. The risks and benefits of the procedure as well as a full d escription of our services here and current unavailability of surgical backup were fully explained to the patient and/or their significant other prior to the catheterization. The Timeout was completed, verifying the correct patient and procedure. The patient's procedural site was prepped and draped in the usual fashion. Local anesthetic was given subcutaneously to right radial region with Lidocaine 2% . Using a modified Seldinger technique, arterial access was obtained via the right radial artery, a 6 Fr sheath was inserted. Right Coronary Artery selective angiography was then performed in multiple v iews using a 5 Fr. 4.0 [place] catheter. Left Coronary Artery selective angiography was performed in mu ltiple views using a 5 Fr. 4.0 [place] catheter. Left Ventriculography was performed in YATES projection using a 5 Fr. Pig[place] catheter. LV to AO pullback pressures were then recorded.The arterial sheath was pulled and a TR Band was applied for hemostasis CORONARY ANGIOGRAPHY DOMINANCE: Right Dominant LEFT HEART ASSESSMENT Left Ventricular Ejection Fraction: by LV Gram 70 % Normal LV wall motion Normal Left Ventricular systolic function LEFT MAIN: Mild calcification, Angiographically normal LEFT ANTERIOR DESCENDING ARTERY: Mild luminal irregularities less than 30% CIRCUMFLEX ARTERY: Mild luminal irregularities less than 30% RIGHT CORONARY ARTERY: PROX RCA: Diffusely diseased up to 60 % MID RCA: Diffusely diseased up to 60 % DISTAL RCA: Diffusely diseased up to 75 % COMPLICATIONS No Complications PROCEDURE MEDICATIONS Versed 1 mg IV Fentanyl 50 mcg IV Oxygen: 2 L/min via nasal cannula Heparin given IA 06/18/2020 08:49:24 Heparin 4000 unit(s) IV 06/18/2020 09:36:31 Heparin 2000 unit(s) IV 06/18/2020 09:46:45 Nitro 100 mcg IC 06/18/2020 10:03:48 Verapamil 2.5mg, Ntg 100mcgs, 2000 units of Heparin given IA 06/18/2020 08:49:24 SUMMARY OF HEMODYNAMIC DATA Time AIR REST ECG 08:43:12 AO 134/100 (115) SA 08:50:15 LV 149/40, 42 08:56:07 LV 144/31, 34 08:56:14 LV 141/35, 37 08:57:06 LV 136/35, 38 08:57:12 LVp 145/39, 41 08:57:19 AOp 146/100 (123) 08:57:24 AO 137/76 (106) 10:04:30 Signed By Carlos Pulido MD On 06/18/2020 17:06:18 Carlos Pulido MD
[2020-06-19] VITALS (16 sets, daily range): BP systolic 98–108; BP diastolic 61–66; PULSE 71–86; RESP 16–20; TEMP 36.5–37.2; O2SAT 87–98
[2020-06-19] MEDS: Acetaminophen 325 MG Tablet 650 MG PO (05:39)
[2020-06-19] MEDS: Levothyroxine 100 MCG Tablet PO (05:39)
[2020-06-19] MEDS: Ipratropium/Albuterol Sulfate 3 ML AMPUL.NEB INHALATION ×3 (06:55→19:54)
[2020-06-19] MEDS: Budesonide Respules 0.5 MG/2 ML AMPUL.NEB. INHALATION ×2 (06:55→19:54)
[2020-06-19 06:57] LABS: Absolute Lymphocyte Count 0.42 X10^3/uL (0.83-4.51); Absolute Neutrophil Count 6.6 X10^3/uL (2.0-7.7); Basophil# 0.05 X10^3/uL; Basophil% 0.6 % (0-1); Eosinophil# 0.37 X10^3/uL; Eosinophils% 4.5 % (0-5); Hematocrit 33.3 % (37-47); Hemoglobin 10.3 g/dL (12.0-15.0); Lymphocyte # 0.42 X10^3/ul (4.0); Lymphocyte % 5.1 % (19-41); Mean Corp Hgb Conc 30.9 g/dL (32-36); Mean Corpuscular Hgb 23.6 pg (27.0-32.0); Mean Corpuscular Volume 76.4 fL (81-99); Mean Platelet Vol. 10.3 fl (6.2-12.0); Monocyte# 0.83 X10^3/uL; NRBC Flagged by Analyzer 0 % (0-5); Neutrophil # 6.59 X10^3/uL (2.7-7.7); Neutrophil % 79.4 % (47-70); POSITIVE DIFFERENTIAL YES; Platelet Count 430 K/mm3 (150-450); RBC Distribution Width CV 18.5 % (11.6-14.6); RBC Distribution Width SD 50.8 fl (35.1-43.9); Red Blood Count 4.36 M/mm3 (4.2-5.4); White Blood Count 8.3 K/mm3 (4.4-11.0)
[2020-06-19 07:06] LABS: Differential Indicated SCAN CRITERIA MET
[2020-06-19 07:27] LABS: Differential Comment SCANNED
[2020-06-19 07:29] LABS: ALB/GLOB Ratio 0.9 RATIO (0.9-2.4); AST(SGOT) 20 U/L (15-37); Alanine Aminotransfer ALT/SGPT 22 U/L (13-56); Alkaline Phosphatase 80 U/L (45-117); Anion Gap 5 (5-15); BUN 18 mg/dL (7-18); BUN/Creat Ratio 29.8 RATIO (10-20); Calcium,Total 8.5 mg/dL (8.5-10.1); Chloride 99 mmol/L (98-107); EST Glomerular Filtration Rate 106 mL/min (>60); Est Glom Filt Rate - Afr Amer 129 mL/min (>60); Globulin 3.4 g/dL (2.2-4.2); Glucose 107 mg/dL (74-106); Potassium 3.6 mmol/L (3.5-5.1); Protein, Total 6.4 g/dL (6.4-8.2); Sodium Level 130 mmol/L (136-145)
--- NOTE | 2020-06-19 08:20 | PN.CARD_ITS ---
Subjectve: Patient seen and evaluated. Objective: Vital Signs Temp Pulse Resp BP Pulse Ox 99.0 F 76 16 104/62 90 06/19/20 02:20 06/19/20 06:56 06/19/20 06:56 06/19/20 02:20 06/19/20 06:56 Oxygen Flow Rate (L/min) 2 Oxygen Delivery Method Room Air Weight: 102 lb 4.712 oz Body Mass Index (BMI) 19.3 Intake and Output for Last 24 Hours 06/17/20 06/18/20 06/19/20 23:59 23:59 23:59 Intake Total 2487.25 / 2847.25 660 / 660 Output Total 1200 / 1550 675 / 675 Balance 1287.25 / 1297.25 -15 / -15 General: Awake, Alert, Oriented x 3 HEENT: PERRL, EOMI, Sclera Non Icteric Neck: Supple, Good ROM, No Lymph Node Enlargement Lungs: Clear to auscultation Cardiovascular: Regular Rhythm, Normal S1, Normal S2, No Murmurs, No Rubs, No Gallops Vascular: No Carotid Bruits, Normal Femoral Pulses, Normal Radial Pulses, Normal Dorsalis Pedal Pulse, Normal Posterior Tibial Pulses Abdomen: Bowel Sounds Present, Soft, Non Tender, No HSM, No Organomegaly Extremities: No Cyanosis, No Clubbing, No edema Musculoskeletal: No Erythema Skin: No Rashes Lymphatic: No Lymph Node Enlargement Neurological: No Focal Motor or Sensory Deficit Psych/Mental Status: Appropriate 06/18/20 03:38: Iron 22 L, TIBC 327, Iron Saturation 6.7 L, Ferritin 5 L 06/19/20 06:34: WBC 8.3, RBC 4.36, Hgb 10.3 L, Hct 33.3 L, MCV 76.4 L, MCH 23.6 L, MCHC 30.9 L, Plt Count 430, MPV 10.3, Immature Gran % (Auto) 0.400, Neut % (Auto) 79.4 H, Lymph % (Auto) 5.1 L, [place] % (Auto) 10.0, Eos % (Auto) 4.5, Baso % (Auto) 0.6, Absolute Neuts (auto) 6.6, Nucleated RBC % 0 06/19/20 06:34: Sodium 130 L, Potassium 3.6, Chloride 99, Carbon Dioxide 26.0, Anion Gap 5, BUN 18, Creatinine 0.60, Est GFR (MDRD) Af Amer 129, Est GFR (MDRD) Non-Af 106, BUN/Creatinine Ratio 29.8 H, Glucose 107 H, Calcium 8.5, Total Bilirubin 0.30 Rhythm: EKG: ECHO: Stress Test: Cardiac Cath: PCI: CT Surgery: Holter monitor: EPS: PPM: CXR: Chest CT Scan: Medical Necessity - Tobacco Use Smoking Status: Former smoker Tobacco Use: Cigarettes Assessment/Plan 1. Non-ST elevation myocardial infarction. * Patient presents with chest discomfort and is noted to have a non-ST elevation myocardial infarction. * Would administer aspirin * Continue clopidogrel * Will continue low-dose beta-guzman * High intensity statin. * Depending on the findings further recommendations will be made. * 2. Bilateral pleural effusions the * The above will be evaluated and investigated per the previous regimen. * Would also recommend low-dose diuretic with Bumex 0.5 mg a day as well as spinal lactone 12.5 mg daily. * Thank you for allowing me to participate in the care of your patient. Please don't hesitate to call if any issues arise. * Addendum: Normal left main coronary artery. Left anterior descending artery with minimal disease. Left circumflex artery with minimal disease. Right coronary artery which is calcified tortuous with multiple areas of mode rate to moderately severe disease. Preserved left ventricular ejection fraction with almost hypertrophic cardiomyopathy appearance. Based on the above angiographic findings we will consider angioplasty and stenting to the right coronary artery. The patient underwent the above procedure and is doing quite well this morning and will be discharged for outpatient follow-up.
[2020-06-19] MEDS: Aspirin E.C. 81 MG Tablet PO (09:01)
[2020-06-19] MEDS: Montelukast 10 MG Tablet PO (09:01)
[2020-06-19] MEDS: guaiFENesin 1,200 MG Tablet 1200 MG PO ×2 (09:01→21:49)
[2020-06-19] MEDS: Metoprolol Tartrate 50 MG Tablet PO ×2 (09:01→21:48)
[2020-06-19] MEDS: Pantoprazole Sodium 20 MG Tablet PO (09:01)
[2020-06-19] MEDS: Clopidogrel Bisulfate 75 MG Tablet PO (09:01)
[2020-06-19] MEDS: Vitamin B Comp W-C Capsule 1 CAP PO (09:01)
[2020-06-19] MEDS: Multivitamins,Therapeutic Tablet 1 TABLET PO (09:01)
[2020-06-19] MEDS: Spironolactone 25 MG Tablet 12.5 MG PO (09:02)
[2020-06-19] MEDS: Bumetanide 0.5 MG Tablet PO (09:14)
--- NOTE | 2020-06-19 10:43 | CASEMGMT ---
Addendum entered by Catalina De Leon 06/20/20 10:48: 06/19/2020 1445 Pt still qualifies for home oxygen at this time and Dr. Bunn states will keep pt one more night at this time. Miky MEDRANO CM Original Note: Pt does qualify for home oxygen, 2liters w/ exertion at this time. This RN CM to room to discuss with pt at this time. Per pt and Jami MEDRANO, pt work with incentive spirometer and will be re-checked this afternoon. Pt states would rather not go home with O2 but states would like [employer] for [employer] company, if she needs to go home with oxygen at discharge. CM to follow. Miky MEDRANO CM
--- NOTE | 2020-06-19 11:00 | EKG12_ITS ---
Test Reason : Blood Pressure : / mmHG Vent. Rate : 092 BPM Atrial Rate : 092 BPM P-R Int : 140 ms QRS Dur : 070 ms QT Int : 392 ms P-R-T Axes : 038 000 004 degrees QTc Int : 484 ms Normal sinus rhythm Inferior infarct , age undetermined , cannot be excluded Abnormal ECG Confirmed by RIA WELCH, JOHNATHAN ([id number]), electronic news gathering editor LIV HOPKINS ([id number]) on 06/20/2020 9:19:47 AM Referred By: CHRISTINE Confirmed By:JOHNATHAN ROLLINS MD
[2020-06-19] MEDS: Ascorbic Acid 500 MG Tablet PO ×2 (12:17→17:09)
[2020-06-19] MEDS: Ferrous Sulfate 325 MG Tablet PO ×2 (12:17→17:09)
--- NOTE | 2020-06-19 12:54 | PCM.PN.HOSP ---
Patient Problems: Active and Suspected Problems NSTEMI (non-ST elevated myocardial infarction) (Acute) Subjective: Doing well today, no chest pain however she is requiring oxygen. Vitals/I&O's: Vital Signs Temp Pulse Resp BP Pulse Ox 97.7 F L 83 18 102/66 96 06/19/20 08:55 06/19/20 09:01 06/19/20 08:55 06/19/20 09:01 06/19/20 08:55 Oxygen Flow Rate (L/min) [ 2 AMBULATION with Oxygen] Oxygen Flow Rate (L/min) [ 0 AMBULATING on Room Air] Oxygen Flow Rate (L/min) [At 0 REST on Room Air] Oxygen Flow Rate (L/min) 2 Oxygen Delivery Method Nasal Cannula Weight: 102 lb 4.712 oz Body Mass Index (BMI) 19.3 Intake and Output for Last 24 Hours 06/17/20 06/18/20 06/19/20 23:59 23:59 23:59 Intake Total 2487.25 / 2847.25 1020 / 1020 Output Total 1200 / 1550 675 / 675 Balance 1287.25 / 1297.25 345 / 345 General: Alert, Oriented x3, Cooperative, No apparent distress HEENT: Atraumatic, PERRLA, EOMI, Normocephalic Oral: Moist Mucosa Neck: Supple, No JVD Lungs: Clear to auscultation, Normal air movement, No rhonchi, No wheeze, No rales, Diminished Cardiovascular: Regular rate, Regular Rhythm, Normal S1, Normal S2, No murmurs Abdomen: Soft, Non Tender, Non-Distended, No Hepato-splenomegaly Extremities: No edema, Capillary Refill Less than 3 Seconds Skin: No rashes, No breakdown Neurological: Neuro grossly intact, Sensory exam intact to light touch and pain Psych/Mental Status: Normal Affect, Appropriate Laboratory Results 06/19/20 06:34: WBC 8.3, RBC 4.36, Hgb 10.3 L, Hct 33.3 L, MCV 76.4 L, MCH 23.6 L, MCHC 30.9 L, RDW Std Deviation 50.8 H, RDW Coeff of Angie 18.5 H, Plt Count 430, MPV 10.3, Immature Gran % (Auto) 0.400, Neut % (Auto) 79.4 H, Lymph % (Auto) 5.1 L, [place] % (Auto) 10.0, Eos % (Auto) 4.5, Baso % (Auto) 0.6, Absolute Neuts (auto) 6.6, Absolute Lymphs (auto) 0.42 L, Nucleated RBC % 0, Differential Comment SCANNED 06/19/20 06:34: Sodium 130 L, Potassium 3.6, Chloride 99, Carbon Dioxide 26.0, Anion Gap 5, BUN 18, Creatinine 0.60, Estim Creat Clear Calc 70.30, Est GFR (MDRD) Af Amer 129, Est GFR (MDRD) Non-Af 106, BUN/Creatinine Ratio 29.8 H, Glucose 107 H, Calcium 8.5, Total Bilirubin 0.30, AST 20, ALT 22, Alkaline Phosphatase 80, Total Protein 6.4, Albumin 3.0 L, Globulin 3.4, Albumin/Globulin Ratio 0.9 Current Medications Acetaminophen (Acetaminophen 325 Mg Tablet) 650 mg PO Q6H PRN PRN PRN Reason: Pain Score 1-10 Last Admin: 06/19/20 05:39 Dose: 650 mg Documented by: Albuterol Sulfate (Albuterol 2.5 Mg/3 Ml Vial.Neb.) 2.5 mg INHALATION Q4H PRN PRN PRN Reason: Bronchodialation Albuterol/Ipratropium (Ipratropium/Albuterol Sulfate 3 Ml Ampul.Neb) 3 ml INHALATION Q6HWA.RT [facility] Last Admin: 06/19/20 06:55 Dose: 3 ml Documented by: Ascorbic Acid (Ascorbic Acid 500 Mg Tablet) 500 mg PO BID@1200,1700 [facility] Last Admin: 06/19/20 12:17 Dose: 500 mg Documented by: Aspirin (Aspirin E.C. 81 Mg Tablet) 81 mg PO DAILY@0800 [facility] Last Admin: 06/19/20 09:01 Dose: 81 mg Documented by: Atorvastatin Calcium (Atorvastatin Calcium 40 Mg Tablet) 40 mg PO QHS [facility] Last Admin: 06/18/20 21:29 Dose: 40 mg Documented by: Budesonide (Budesonide Respules 0.5 Mg/2 Ml Ampul.Neb.) 0.5 mg INHALATION Q12H.RT [facility] Last Admin: 06/19/20 06:55 Dose: 0.5 mg Documented by: Bumetanide (Bumetanide 0.5 Mg Tablet) 0.5 mg PO DAILY [facility] Last Admin: 06/19/20 09:14 Dose: 0.5 mg Documented by: Clopidogrel Bisulfate (Clopidogrel Bisulfate 75 Mg Tablet) 75 mg PO DAILY [facility] Last Admin: 06/19/20 09:01 Dose: 75 mg Documented by: Ferrous Sulfate (Ferrous Sulfate 325 Mg Tablet) 325 mg PO 1200,1700 [facility] Last Admin: 06/19/20 12:17 Dose: 325 mg Documented by: Guaifenesin (Guaifenesin 1,200 Mg Tablet) 1,200 mg PO BID [facility] Last Admin: 06/19/20 09:01 Dose: 1,200 mg Documented by: Heparin Sodium (Beef Lung) (Heparin Lock 500 Unit/5 Ml In 10 Ml Syringe) 500 unit IV UD PRN PRN Reason: HEPARIN FLUSH Labetalol HCl (Labetalol (Prefilled) 20 Mg/4 Ml) 5 mg IV X1 PRN PRN Reason: SBP >160 when pulling sheath Stop: 06/20/20 10:54 Levothyroxine Sodium (Levothyroxine 100 Mcg Tablet) 100 mcg PO DAILY@0600 [facility] Last Admin: 06/19/20 05:39 Dose: 100 mcg Documented by: Lorazepam (Lorazepam 0.5 Mg Tablet) 0.5 mg PO BID PRN PRN PRN Reason: ANXIETY Metoprolol Tartrate (Metoprolol Tartrate 50 Mg Tablet) 50 mg PO BID [facility] Last Admin: 06/19/20 09:01 Dose: 50 mg Documented by: Montelukast Sodium (Montelukast 10 Mg Tablet) 10 mg PO DAILY [facility] Last Admin: 06/19/20 09:01 Dose: 10 mg Documented by: Morphine Sulfate (Morphine 2 Mg/Ml Syringe) 2 mg IV Q3H PRN PRN PRN Reason: Pain Score 6-10 Multivitamins ([facility]it[facility],Therapeutic Tablet) [facility] Last Admin: 06/19/20 09:01 Dose: 1 tablet Documented by: Multivitamins (Vitamin B Comp W-C Capsule) 1 capsule PO DAILY [facility] Last Admin: 06/19/20 09:01 Dose: 1 capsule Documented by: Nutritional Formula (Lactose Free) (Ensure Enlive 120 Ml Liquid) 120 ml PO 4X/DAY [facility] Last Admin: 06/19/20 09:02 Dose: 120 ml Documented by: Ondansetron HCl (Ondansetron 4 Mg/2 Ml Vial) 4 mg IV Q8H PRN PRN PRN Reason: NAUSEA/VOMITING Pantoprazole Sodium (Pantoprazole Sodium 20 Mg Tablet) 20 mg PO DAILY [facility] Last Admin: 06/19/20 09:01 Dose: 20 mg Documented by: Pseudoephedrine HCl (Pseudoephedrine 60 Mg Tablet) 60 mg PO Q6 [facility] Last Admin: 06/19/20 12:17 Dose: 60 mg Documented by: Sodium Chloride (0.9% Saline Lock 10 Ml Syringe) 10 - 40 ml IV UD PRN PRN Reason: SALINE FLUSH Last Admin: 06/18/20 11:25 Dose: 20 ml Documented by: Sodium Chloride (0.9% Normal Saline 500 Ml Iv.Soln.) 500 ml IV BOLUS PRN PRN Reason: VASO-VAGAL PROTOCOL Spironolactone (Spironolactone 25 Mg Tablet) 12.5 mg PO DAILY [facility] Last Admin: 06/19/20 09:02 Dose: 12.5 mg Documented by: STROKE Vital Signs/Narrative: Vital Signs Temp Pulse Resp BP Pulse Ox 06/19/20 09:01 83 102/66 06/19/20 08:55 97.7 F L 83 18 102/66 96 Medical Necessity - Tobacco Use Smoking Status: Former smoker Tobacco Use: Cigarettes Assessment/Plan All Active Problems NSTEMI (non-ST elevated myocardial infarction) (Acute) Former smoker (Resolved) 1. Non-STEMI/HTN/HLD -Says that her doctor was concerned that it could possibly either coronary artery disease or pericarditis. They were slow in starting any medications given all of her allergies to medications. -She underwent a cardiac cath 06/18/2020, and she had 2 drug-eluting stents placed in her right coronary artery -Continue with beta-guzman and diuretics as well as RASHAUN inhibitor and a statin. She also need to be on dual antiplatelets -Given the fact that she had significant coronary artery disease, can likely discontinue her colchicine on discharge 2. COPD not in exacerbation -Stable -Continue with budesonide -Continue with Singulair as well as duo nebs 3. Hypothyroidism -Stable -Continue with Synthroid 4. GERD -Stable -Continue with PPI 5. Iron deficiency anemia -Iron is low as is iron saturation and ferritin -Continue with twice daily iron supplementation DVT: SCDs Inpatient E&M: 02891 Subs Hosp L2
[2020-06-19] MEDS: Atorvastatin Calcium 40 MG Tablet PO (21:44)
[2020-06-20] VITALS (11 sets, daily range): BP systolic 103–116; BP diastolic 66–69; PULSE 69–95; RESP 16–18; TEMP 36.4–36.9; O2SAT 90–94
[2020-06-20] MEDS: Levothyroxine 100 MCG Tablet PO (05:45)
[2020-06-20] MEDS: Ipratropium/Albuterol Sulfate 3 ML AMPUL.NEB INHALATION (06:55)
[2020-06-20] MEDS: Budesonide Respules 0.5 MG/2 ML AMPUL.NEB. INHALATION (06:55)
[2020-06-20] MEDS: Pantoprazole Sodium 20 MG Tablet PO (08:45)
[2020-06-20] MEDS: Clopidogrel Bisulfate 75 MG Tablet PO (08:45)
[2020-06-20] MEDS: Bumetanide 0.5 MG Tablet PO (08:45)
[2020-06-20] MEDS: guaiFENesin 1,200 MG Tablet 1200 MG PO (08:45)
[2020-06-20] MEDS: Aspirin E.C. 81 MG Tablet PO (08:46)
[2020-06-20] MEDS: Spironolactone 25 MG Tablet 12.5 MG PO (08:46)
[2020-06-20] MEDS: Montelukast 10 MG Tablet PO (08:46)
[2020-06-20] MEDS: Multivitamins,Therapeutic Tablet 1 TABLET PO (08:47)
[2020-06-20] MEDS: Vitamin B Comp W-C Capsule 1 CAP PO (08:47)
[2020-06-20] MEDS: Metoprolol Tartrate 50 MG Tablet PO (08:49)
--- NOTE | 2020-06-20 10:25 | PCM.DC ---
- Discharge Diagnoses Current Active Problems: Current Active and Chronic Problems NSTEMI (non-ST elevated myocardial infarction) (Acute) Bronchiectasis (Chronic) COPD (chronic obstructive pulmonary disease) (Chronic) You will use the following diet at home:: Cardiac Your food should be the consistency of: Regular Your liquids should be the consistency of: Regular/Thin Discharge Activity: Return to Normal Activity Call your doctor if you observe: Fever of 101 or Higher, Shortness of breath, Dizziness, Fainting spells, Swelling in the ankles, Chest pain, Increased palpitations (irregular heartbeat) Allergies/Adverse Reactions: Allergies amoxicillin [From Augmentin] Allergy (Verified 06/17/20 21:28) Rash clavulanic acid [From Augmentin] Allergy (Verified 06/17/20:) Rash doxycycline Allergy (Verified 06/17/20:) Rash tiotropium Adverse Reaction (Unknown, Verified 06/18/20 03:54) PT UNSURE OF REACTION budesonide [From Symbicort] Adverse Reaction (Verified 06/17/20 21:28) Other bumetanide Adverse Reaction (Verified 06/18/20 03:54) PT UNSURE OF REACTION cefdinir Adverse Reaction (Verified 06/18/20 03:54) Bleeding pt reported red stool clindamycin Adverse Reaction (Verified 06/18/20 03:54) Abd cramps/diarrhea GI upset fluticasone [From Flonase] Adverse Reaction (Verified 06/17/20 21:28) HEADACHES formoterol [From Symbicort] Adverse Reaction (Verified 06/17/20 21:28) HIGH FEELING furosemide Adverse Reaction (Verified 06/18/20 03:54) NEEDS FOLLOW-UP pt reports dry mouth and weakness w/ many diuretics spironolactone Adverse Reaction (Verified 06/18/20 03:54) NEEDS FOLLOW-UP pt reports dry mouth and weakness w/ many diuretics umeclidinium Adverse Reaction (Verified 06/18/20 03:54) Shortness of breath SOB, myalgia Medications to take at Discharge Albuterol Inhaler [Ventolin Hfa] 2 puff INHALATION Q4H PRN PRN 09/07/16 Guaifenesin/Pseudoephedrne HCl [Mucinex D ER 1,200-120 mg Tab] 1 each PO BID 09/07/16 Montelukast [Singulair] 10 mg PO DAILY 09/07/16 Multivitamin [Daily Multiple Vitamin] 1 each PO DAILY 09/07/16 Omeprazole [Prilosec] 20 mg PO DAILY 09/07/16 Vitamin B Complex 1 tab PO DAILY 09/07/16 Lorazepam [Ativan] 0.5 mg PO BID PRN PRN 09/26/16 Budesonide Inhaler 180 mcg [Pulmicort Inhaler 180 mcg] 1 puff INHALATION BID 06/17/20 Bumetanide [Bumex] 0.5 mg PO DAILY 06/17/20 Ipratropium/Albuterol Respimat [Combivent Respimat Inhal [place]] 1 puff INHALATION 4X/DAY 06/17/20 Levothyroxine [Synthroid] 100 mcg PO DAILY 06/17/20 Potassium Chloride 30 meq PO BID 06/17/20 Spironolactone 12.5 mg PO DAILY 06/17/20 Ascorbic Acid [Vitamin C] 500 mg PO BIDCM #0 06/20/20 Aspirin E.C. [Ecotrin] 81 mg PO DAILY@0800 #90 tab 06/20/20 Atorvastatin Calcium [Lipitor] 40 mg PO QHS #90 tab 06/20/20 Clopidogrel Bisulfate [Plavix] 75 mg PO DAILY #90 tab 06/20/20 Ferrous Sulfate 325 mg PO 1200,1700 #120 tab 06/20/20 Metoprolol Tartrate [Lopressor (beta guzman)] 50 mg PO BID #120 tab 06/20/20 The following prescriptions were given: Aspirin E.C. [Ecotrin] 81 mg PO DAILY@0800 #90 tab Transmission Status: Pending to [facility] Ferrous Sulfate 325 mg PO 1200,1700 #120 tab Transmission Status: Pending to [facility] Atorvastatin Calcium [Lipitor] 40 mg PO QHS #90 tab Transmission Status: Pending to [facility] Metoprolol Tartrate [Lopressor (beta guzman)] 50 mg PO BID #120 tab Transmission Status: Pending to [facility] Clopidogrel Bisulfate [Plavix] 75 mg PO DAILY #90 tab Transmission Status: Pending to [facility] Primary Care Physician: Atul Garcia MD [Primary Care Provider] - Please follow up with your Primary Care Physician in: 3-5 days Test Results: Test results from this visit will be discussed in further detail at your follow-up appointment, if applicable. Please Follow Up With: Carlos Pulido MD When: 2-4 weeks
--- NOTE | 2020-06-20 10:50 | CASEMGMT ---
Pt testes for home oxygen again at this time and pt does not need home oxygen at this time. Pt ambulates well in hallway and states no need for any further resources/therapy at this time. Miky MEDRANO CM
[2020-06-20] MEDS: Ferrous Sulfate 325 MG Tablet PO (11:15)
[2020-06-20] MEDS: Ascorbic Acid 500 MG Tablet PO (11:16)
--- NOTE | 2020-06-20 14:17 | DS.PCM_ITS ---
Discharge Date and Diagnosis - Problem List Patient Problems: Active and Suspected Problems NSTEMI (non-ST elevated myocardial infarction) (Acute) Date of Admission: 06/18/20 Date of Discharge: 06/20/20 - Primary Discharge Diagnosis Acute Problems: Active Problems NSTEMI (non-ST elevated myocardial infarction) (Acute) - Secondary Discharge Diagnosis Chronic Problems: Chronic Problems Bronchiectasis (Chronic) COPD (chronic obstructive pulmonary disease) (Chronic) Hospital Course and Treatment Imaging Results: Clinical Impression(s) from Imaging Studies Chest X-Ray 06/17/20 21:44 IMPRESSION: Bilateral pleural effusions, left more than right. Basilar consolidations cannot be excluded. Right apical pleural thickening. Electronically Signed: Goran Restrepo DO at 22:11 EDT Tel [phone], Service support , Cardiac Cath: PROCEDURE(S) PERFORMED [id number] W OR WO PTCA, SINGLE CORONARY ARTERY CLINICAL PROFILE AND INDICATIONS Indications: Suspected CAD Heart Failure: None Stress/Imaging Stress/Image Study Performed: No CONCLUSIONS Significant diffuse ectatic disease noted in the right coronary artery in a vessel which is mildly calcified. The distal right coronary artery appears to be more significantly diseased with a 75% stenotic lesion. Minimal disease noted in the left anterior descending artery and circumflex artery.. RECOMMENDATIONS Referred for immediate PCI PCI Cardiac Cath Report PCI Report: Procedure: Stenting of the proximal and distal right coronary artery Clinical history: 65-year-old Y female with non-STEMI and no history of severe distal right coronary artery stenosis Indication: Non-STEMI Heart failure: Chronic diastolic left ventricular dysfunction Stress/imaging: Not available CAD presentation: Non-STEMI with functional class IV angina Summary: #1 successful stenting of the distal right coronary artery before bifurcation. 80% stenosis was reduced to 0%. HELENA-3 flow was maintained. Type A lesion #2 Successful stenting of the proximal to mid right coronary artery type B2 lesion with some calcification. Pre intervention stenoses was 60 to 70%. Post residual stenosis was 0%. HELENA-3 flow was maintained #3 preserved left ventricular systolic wall motion #4 beta-guzman and diuretic as well as RASHAUN inhibitor with statin will be managed by Dr. Pulido Operations: None Procedures: Cardiac catheterization Summary of Care Provided: Per HPI: The patient is a 65 year old F with a significant history of COPD and bronchiectasis who presented to the emergency department with substernal chest pain that started about 2 hours before presentation. Her chest pain occurred while at rest. She thought she was having a heart attack. She called her son. Patient and family called her PCP's office who advised the patient to come to the emergency department. Her pain is nonradiating. Associated with her symptom was shortness of breath; diaphoresis and presyncope. She denies nausea or vomiting. She denies any aggravating factors to the pain. She took 2 tablets of 325 mg of aspirin at home. She thinks that the aspirin helped improve the pain. She has a history of pleural effusion and has had thoracentesis. She saw cardiothoracic surgeon and cardiology at [facility]. She had a CT scan and MRI chest. In April 2019 heart cath was done. Her cath showed RCA lesions that were radiographically indeterminate. Stress test was scheduled on 06/19/2020 at [facility]. Emergency department discussed the case with [facility]. Unfortunately [facility] did not have a bed. Emergent department doctor reportedly discussed the case with consumer electronics merchandiser on-call at [facility]. Cardiology accepted to see the patient on consult. Per ED doctor a loading dose of Plavix was recommended by cardiology. Hospital Course: 1. Non-STEMI/HTN/HLD -Says that her doctor was concerned that it could possibly either be be coronary artery disease or pericarditis. They were slow in starting any medications given all of her allergies to medications. -She underwent a cardiac cath 06/18/2020, and she had 2 drug-eluting stents placed in her right coronary artery -Continue with beta-guzman and diuretics as well as a statin. She also need to be on dual antiplatelets -Given the fact that she had significant coronary artery disease, can likely discontinue her colchicine on discharge -After the procedure she did require some oxygen which improved with ambulation, and senna spirometry, and her diuretic. -Today she did not require any further oxygen. The plan for discharge was discussed with her and she expressed understanding of the risks and benefits of going home today. 2. COPD not in exacerbation -Stable -Continue with budesonide -Continue with Singulair as well as duo nebs 3. Hypothyroidism -Stable -Continue with Synthroid 4. GERD -Stable -Continue with PPI 5. Iron deficiency anemia -Iron is low as is iron saturation and ferritin -Continue with twice daily iron supplementation Patient Problems: Active and Suspected Problems NSTEMI (non-ST elevated myocardial infarction) (Acute) - Physical Exam Vitals/I&O's: Vital Signs Temp Pulse Resp BP Pulse Ox 97.7 F L 85 16 103/66 93 06/20/20 10:32 06/20/20 10:32 06/20/20 10:32 06/20/20 10:32 06/20/20 10:32 Oxygen Flow Rate (L/min) [ 2 AMBULATION with Oxygen] Oxygen Flow Rate (L/min) [ 0 AMBULATING on Room Air] Oxygen Flow Rate (L/min) [At 0 REST on Room Air] Oxygen Flow Rate (L/min) 1 Oxygen Delivery Method Room Air Weight: 102 lb 4.712 oz Body Mass Index (BMI) 19.3 Intake and Output for Last 24 Hours 06/18/20 06/19/20 06/20/20 23:59 23:59 23:59 Intake Total 2487.25 / 2847.25 1380 / 1380 460 / 460 Output Total 1200 / 1550 1675 / 1675 900 / 900 Balance 1287.25 / 1297.25 -295 / -295 -440 / -440 General: Alert, Oriented x3, Cooperative, No apparent distress HEENT: Atraumatic, PERRLA, EOMI, Normocephalic Oral: Moist Mucosa Neck: Supple, No JVD Lungs: Clear to auscultation, Normal air movement, No rhonchi, No wheeze, No rales, Diminished Cardiovascular: Regular rate, Regular Rhythm, Normal S1, Normal S2, No murmurs Abdomen: Soft, Non Tender, Non-Distended, No Hepato-splenomegaly Extremities: No edema, Capillary Refill Less than 3 Seconds Skin: No rashes, No breakdown Neurological: Neuro grossly intact, Sensory exam intact to light touch and pain Psych/Mental Status: Normal Affect, Appropriate Discharge Activity: Return to Normal Activity Call your doctor if you observe: Fever of 101 or Higher, Shortness of breath, Dizziness, Fainting spells, Swelling in the ankles, Chest pain, Increased palpitations (irregular heartbeat) Home Medications: Medications to take at Discharge Albuterol Inhaler [Ventolin Hfa] 2 puff INHALATION Q4H PRN PRN 09/07/16 Guaifenesin/Pseudoephedrne HCl [Mucinex D ER 1,200-120 mg Tab] 1 each PO BID 09/07/16 Montelukast [Singulair] 10 mg PO DAILY 09/07/16 Multivitamin [Daily Multiple Vitamin] 1 each PO DAILY 09/07/16 Omeprazole [Prilosec] 20 mg PO DAILY 09/07/16 Vitamin B Complex 1 tab PO DAILY 09/07/16 Lorazepam [Ativan] 0.5 mg PO BID PRN PRN 09/26/16 Budesonide Inhaler 180 mcg [Pulmicort Inhaler 180 mcg] 1 puff INHALATION BID 06/17/20 Bumetanide [Bumex] 0.5 mg PO DAILY 06/17/20 Ipratropium/Albuterol Respimat [Combivent Respimat Inhal [place]] 1 puff INHALATION 4X/DAY 06/17/20 Levothyroxine [Synthroid] 100 mcg PO DAILY 06/17/20 Potassium Chloride 30 meq PO BID 06/17/20 Spironolactone 12.5 mg PO DAILY 06/17/20 Ascorbic Acid [Vitamin C] 500 mg PO BIDCM #0 06/20/20 Aspirin E.C. [Ecotrin] 81 mg PO DAILY@0800 #90 tab 06/20/20 Atorvastatin Calcium [Lipitor] 40 mg PO QHS #90 tab 06/20/20 Clopidogrel Bisulfate [Plavix] 75 mg PO DAILY #90 tab 06/20/20 Ferrous Sulfate 325 mg PO 1200,1700 #120 tab 06/20/20 Metoprolol Tartrate [Lopressor (beta guzman)] 50 mg PO BID #120 tab 06/20/20 Following Prescriptions Were Given to Patient: Aspirin E.C. [Ecotrin] 81 mg PO DAILY@0800 #90 tab Transmission Status: Received by [facility] Ferrous Sulfate 325 mg PO 1200,1700 #120 tab Transmission Status: Received by [facility] Atorvastatin Calcium [Lipitor] 40 mg PO QHS #90 tab Transmission Status: Received by [facility] Metoprolol Tartrate [Lopressor (beta guzman)] 50 mg PO BID #120 tab Transmission Status: Received by [facility] Clopidogrel Bisulfate [Plavix] 75 mg PO DAILY #90 tab Transmission Status: Received by [facility] Primary Care Physician: Atul Garcia MD [Primary Care Provider] - Please follow up with your Primary Care Physician in: 3-5 days Please Follow Up With: Carlos Pulido MD When: 2-4 weeks Please Follow Up With: Dr. Garcia When: 3-5 days Disposition: Home Minutes spent on discharge:: 35 Patient Condition:: Stable Medical Necessity - Tobacco Use Smoking Status: Former smoker Tobacco Use: Cigarettes Meaningful Use Info Meaningful Use Diagnoses (Choose all that apply): None applicable Inpatient E&M: 54714 Disch Hosp
--- NOTE | 2020-06-21 15:07 | CASEMGMT ---
MARCELA JAIMES Discharge Follow-up Phone Call: CASSANDRA: Jerica Strata: 3 Call Date: 06/21/2020 Discharge Date: 06/20/2020 Time of Call: [id number] Duration: 1 min Admitting Diagnosis: NSTEMI RN THEODORE attempted to complete follow-up phone call after recent hospitalization. No answer, voice message left with return contact information.
== END 2020-06-20 13:10 | disposition home health service (06) | DRG 247 ==
LOC: ED 06-18 02:13 → PCU 06-18 02:42
PROVIDERS: Admitting Provider Hospitalist; Emergency Provider Emergency Medicine; PCP Family Medicine; Visit Provider Family Medicine
DX: I21.4 Non-ST elevation (NSTEMI) myocardial infarction (principal); I50.32 Chronic diastolic (congestive) heart failure; I11.0 Hypertensive heart disease with heart failure; I25.119 Atherosclerotic heart disease of native coronary artery with unspecified angina pectoris; E03.9 Hypothyroidism, unspecified; J44.9 Chronic obstructive pulmonary disease, unspecified; K21.9 Gastro-esophageal reflux disease without esophagitis; D50.9 Iron deficiency anemia, unspecified; Z87.891 Personal history of nicotine dependence; Z79.02 Long term (current) use of antithrombotics/antiplatelets; Z79.82 Long term (current) use of aspirin; Z79.890 Hormone replacement therapy; Z79.899 Other long term (current) drug therapy
CPT/HCPCS: 36415; 71045; 80048; 80053; 80061; 82728; 83540; 83550; 84484; 85025; 85347; 92928; 93005; 93458; 94640; 97802; 99152; 99153; 99251; 99285; C1725; J7030; A4216; C1769; C1874; C1887; C1894; C9600; G0463; J1940; J2405; Q9967

== ENCOUNTER → 2020-07-30 17:13 | Outpatient (CLI) | payer BC, SELFPAY ==
[2020-07-30 11:25] VITALS: BMI 19.4
== END ==
PROVIDERS: PCP Family Medicine; Referring Provider Physician Assistant Medical; Visit Provider Physician Assistant Medical
DX: R06.00 Dyspnea, unspecified (principal); J90 Pleural effusion, not elsewhere classified
CPT/HCPCS: 87635; C9803; U0003

== ENCOUNTER 2020-10-07 11:58 | Emergency (ER) | payer BC, SELFPAY ==
[2020-07-30 11:25] VITALS: BMI 19.4
[2020-10-07] VITALS (8 sets, daily range): BP systolic 129–147; BP diastolic 84–96; PULSE 66–86; RESP 16–18; TEMP 36.2–36.8; O2SAT 92–97; BMI 19.1
--- NOTE | 2020-10-07 12:37 | EKG12_ITS ---
Test Reason : SOB Blood Pressure : / mmHG Vent. Rate : 070 BPM Atrial Rate : 070 BPM P-R Int : 142 ms QRS Dur : 072 ms QT Int : 394 ms P-R-T Axes : 042 002 018 degrees QTc Int : 425 ms Normal sinus rhythm Low voltage QRS Cannot rule out Inferior infarct (cited on or before 17-JUN-2020) Abnormal ECG Confirmed by RIA WELCH, JOHNATHAN ([id number]), online editor LAKEISHA KHAN ([id number]) on 10/10/2020 1:35:42 PM Referred By: BEBETO Confirmed By:JOHNATHAN ROLLINS MD
--- NOTE | 2020-10-07 12:38 | ED.VIS.GEN ---
History of Present Illness Chief Complaint: Shortness of Breath Informant: Patient Narrative: 65-year-old female presenting with shortness of breath. She states she has a history of COPD and CHF. Patient states she is more short of breath over the last month. She was seen by her PCP outpatient and had a BNP that was elevated. Patient states that she does have some left upper chest discomfort. She not had a fever. She has the same cough she always has. She states she can only ambulate short distances without becoming significantly short of breath. No history of DVT/PE. - Past Medical History (1) History of coronary artery stent placement Status: Chronic Comment: [id number] RCA w/ 3.0 x 20 mm Synergy Stent and Prox-Mid RCA w/ 3.5 x 24 mm Synergy Stent 06/18/2020 (2) History of non-ST elevation myocardial infarction (NSTEMI) Status: Resolved Past Medical History - Allergies and Home Meds Allergies/Adverse Reactions: Allergies amoxicillin [From Augmentin] Allergy (Verified 10/07/20 12:00) Rash clavulanic acid [From Augmentin] Allergy (Verified 10/07/20 12:00) Rash doxycycline Allergy (Verified 10/07/20 12:00) Rash tiotropium Adverse Reaction (Unknown, Verified 10/07/20 12:00) PT UNSURE OF REACTION budesonide [From Symbicort] Adverse Reaction (Verified 10/07/20 12:00) Other bumetanide Adverse Reaction (Verified 10/07/20 12:00) PT UNSURE OF REACTION cefdinir Adverse Reaction (Verified 10/07/20 12:00) Bleeding pt reported red stool clindamycin Adverse Reaction (Verified 10/07/20 12:00) Abd cramps/diarrhea GI upset fluticasone [From Flonase] Adverse Reaction (Verified 10/07/20 12:00) HEADACHES formoterol [From Symbicort] Adverse Reaction (Verified 10/07/20 12:00) HIGH FEELING furosemide Adverse Reaction (Verified 10/07/20 12:00) NEEDS FOLLOW-UP pt reports dry mouth and weakness w/ many diuretics spironolactone Adverse Reaction (Verified 10/07/20 12:00) NEEDS FOLLOW-UP pt reports dry mouth and weakness w/ many diuretics umeclidinium Adverse Reaction (Verified 10/07/20 12:00) Shortness of breath SOB, myalgia Primary Care Physician: Atul Garcia MD [Primary Care Provider] - Prior records reviewed: Yes Past Medical History: - - CHF, COPD Surgical History: - - History of thoracentesis. Cardiac stents Smoking Status: Former smoker Alcohol: None Drugs: None - Family History Maternal Family History: Family History (Last Reviewed 07/30/20 @ 12:03 by Lilliam Samuels PA, PA) Mother Colon cancer Father Heart disease Family History: Reports: Cancer - Colon, Diabetes Paternal Family History: Family History (Last Reviewed 07/30/20 @ 12:03 by Lilliam Samuels PA, PA) Mother Colon cancer Father Heart disease Family History: Reports: Heart Disease Review of Systems General: Denies: Chills, Fever, Sweats Eyes: Denies: Visual changes - bilaterally, Diplopia ENT: Denies: Rhinorrhea, Sore throat Cardiovascular: Reports: Chest pain Respiratory: Reports: Dyspnea, Cough, Dyspnea on exertion Gastrointestinal: Denies: Abdominal pain, Nausea Genitourinary: Denies: Dysuria, Hematuria Musculoskeletal: Denies: Myalgias, Arthralgias Skin: Denies: Rash, Abscess Neurological: Denies: Headache, Weakness, Parasthesia Psych: Denies: Depression, Anxiety Physical Exam Vital Signs/Narrative: Vital Signs Temp Pulse Resp BP Pulse Ox 10/07/20 12:24 97.1 F L 66 16 147/91 H 96 10/07/20 12:00 97.1 F L 66 16 147/91 H 96 Inital Vital Signs reviewed: Yes General: Well nourished, No Acute Distress Head: Normocephalic, Atraumatic Eyes: Perrl ENT: Moist mucous membranes, No rhinorrhea Cardiovascular: Regular rate, Regular rhythm Abdomen: Nondistended Extremities: Nontender, No edema Skin: Normal color, No rash. Negative for: Cyanosis, Diaphoresis Neurological: Alert, Oriented x3, Cranial nerves II-XII grossly intact Psychological: Normal affect, Normal Mood Diagnostic/Tx/Re-eval Clinical Impression(s) from Imaging Studies Chest X-Ray 10/07/20 12:39 IMPRESSION: Stable pleural parenchymal changes at the left lung base. Interval increase in size of the right pleural effusion with right basilar atelectasis. Electronically Signed: Bert Hirsch MD at 13:10 EST , Service support , Laboratory Data 10/07/20 10/07/20 10/07/20 12:15 12:15 12:15 WBC 7.0 RBC 4.64 Hgb 14.2 Hct 42.6 MCV 91.8 MCH 30.6 MCHC 33.3 RDW Std Deviation 47.4 H RDW Coeff of Angie 14.8 H Plt Count 371 MPV 10.8 Immature Gran % (Auto) 0.400 Neut % (Auto) 75.5 H Lymph % (Auto) 7.3 L Gibson % (Auto) 10.2 H Eos % (Auto) 6.0 H Baso % (Auto) 0.6 Absolute Neuts (auto) 5.3 Absolute Lymphs (auto) 0.51 L Nucleated RBC % 0 D-Dimer Quant (PE/DVT) 0.42 Sodium 132 L Potassium 3.8 Chloride 97 L Carbon Dioxide 30.0 Anion Gap 5 BUN 12 Creatinine 0.70 Estim Creat Clear Calc 59.49 Est GFR (MDRD) Af Amer 108 Est GFR (MDRD) Non-Af 89 BUN/Creatinine Ratio 17.0 Glucose 93 Calcium 9.2 Troponin I < 0.015 B-Natriuretic Peptide 10/07/20 12:15 WBC RBC Hgb Hct MCV MCH MCHC RDW Std Deviation RDW Coeff of Angie Plt Count MPV Immature Gran % (Auto) Neut % (Auto) Lymph % (Auto) Gibson % (Auto) Eos % (Auto) Baso % (Auto) Absolute Neuts (auto) Absolute Lymphs (auto) Nucleated RBC % D-Dimer Quant (PE/DVT) Sodium Potassium Chloride Carbon Dioxide Anion Gap BUN Creatinine Estim Creat Clear Calc Est GFR (MDRD) Af Amer Est GFR (MDRD) Non-Af BUN/Creatinine Ratio Glucose Calcium Troponin I B-Natriuretic Peptide 73.4 - EKG Initial EKG Interpretation: Sinus Rhythm, No Acute Injury Pattern - Medical Decision Making 64-year-old female presenting because she had an elevated proBNP. She does state that she has been more short of breath recently. She states she has known pleural effusions and had to have thoracentesis bilaterally previously. She states she currently has pleural effusion on the right. Patient's not having any chest pain. EKG performed on arrival shows a sinus rhythm without signs of ischemic change. Chest x-ray is interpreted by myself shows an increase in size of the size of her right pleural effusion however no other acute findings. Work showed no leukocytosis. Renal function is normal. Ambulatory pulse ox is 93%. Her BNP was normal given patient's symptoms I did test her for Covid-19. She will go home and quarantine. She is counseled on return precautions. 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 Impression: 1. Shortness of breath 2. Pleural effusion ED Disposition - Plan for ED Patient: Disposition: Home or Assisted Living Instructions: Coronavirus Disease 2019 (COVID-19): Overview, ED Dyspnea Referrals: Atul Garcia MD [Primary Care Provider] -
--- NOTE | 2020-10-07 12:39 | RAD_ITS ---
STUDY: X-RAY CHEST REASON FOR EXAM: Female, 65 years old. SOB, LEFT SHOULDER PAIN -- HX OF ASTHMA AND CARDIAC STENT TECHNIQUE: Single AP portable view of the chest. COMPARISON: Comparison is made with prior study 06/17/2020. FINDINGS: EKG electrodes are seen. Persistent left pleural effusion with left basilar infiltration and/or atelectasis. Since prior study, there has been progressive infiltrate in the right lower lobe and small right pleural effusion. Surgical sutures are seen in the right lower lobe. Normal size heart. Normal mediastinum and agapito. Normal visualized pulmonary arteries. Normal visualized aortic arch and descending thoracic aorta. Normal visualized thoracic spine. Normal visualized ribs, clavicles, and shoulders. There is no demonstrated abnormality of the visualized soft tissue structures of the upper abdomen. RAD/Chest 1 View (Portable) IMPRESSION: Stable pleural parenchymal changes at the left lung base. Interval increase in size of the right pleural effusion with right basilar atelectasis. Electronically Signed: Bert Hirsch MD at 13:10 EST , Service support ,
[2020-10-07 12:51] LABS: Absolute Lymphocyte Count 0.51 X10^3/uL (0.83-4.51); Absolute Neutrophil Count 5.3 X10^3/uL (2.0-7.7); Basophil# 0.04 X10^3/uL; Basophil% 0.6 % (0-1); Eosinophil# 0.42 X10^3/uL; Hematocrit 42.6 % (37-47); Hemoglobin 14.2 g/dL (12.0-15.0); Lymphocyte # 0.51 X10^3/ul (4.0); Lymphocyte % 7.3 % (19-41); Mean Corp Hgb Conc 33.3 g/dL (32-36); Mean Corpuscular Hgb 30.6 pg (27.0-32.0); Mean Corpuscular Volume 91.8 fL (81-99); Mean Platelet Vol. 10.8 fl (6.2-12.0); Monocyte# 0.71 X10^3/uL; Monocyte% 10.2 % (0-10); NRBC Flagged by Analyzer 0 % (0-5); Neutrophil # 5.25 X10^3/uL (2.7-7.7); Neutrophil % 75.5 % (47-70); POSITIVE DIFFERENTIAL YES; Platelet Count 371 K/mm3 (150-450); RBC Distribution Width CV 14.8 % (11.6-14.6); RBC Distribution Width SD 47.4 fl (35.1-43.9); Red Blood Count 4.64 M/mm3 (4.2-5.4)
[2020-10-07 12:53] LABS: Differential Indicated SCAN CRITERIA MET
[2020-10-07 12:56] LABS: D-Dimer Quantitative (DVT/PE) 0.42 FEU/ug/m (0.27-0.49)
[2020-10-07 13:01] LABS: Anion Gap 5 (5-15); BUN 12 mg/dL (7-18); Calcium,Total 9.2 mg/dL (8.5-10.1); Chloride 97 mmol/L (98-107); EST Glomerular Filtration Rate 89 mL/min (>60); Est Glom Filt Rate - Afr Amer 108 mL/min (>60); Estimated Creatinine Clearance 59.49 ml/min; Glucose 93 mg/dL (74-106); Potassium 3.8 mmol/L (3.5-5.1); Sodium Level 132 mmol/L (136-145)
[2020-10-07 13:11] LABS: BNP,B-Type NATRIURETIC PEPTIDE 73.4 pg/mL (0-100)
== END 2020-10-07 16:51 | disposition home or self-care (01) ==
PROVIDERS: Emergency Provider Student in an Organized Health Care Education/Training Program; PCP Family Medicine
DX: J90 Pleural effusion, not elsewhere classified (principal); I25.2 Old myocardial infarction; I50.9 Heart failure, unspecified; J44.9 Chronic obstructive pulmonary disease, unspecified; Z95.5 Presence of coronary angioplasty implant and graft; Z79.82 Long term (current) use of aspirin; Z79.899 Other long term (current) drug therapy; Z87.891 Personal history of nicotine dependence
CPT/HCPCS: 71045; 80048; 83880; 84484; 85025; 85379; 87635; 93005; 99284; A4216; U0002

== ENCOUNTER → 2020-11-27 09:44 | Outpatient (CLI) | payer BC, SELFPAY ==
[2020-11-12 11:12] VITALS: BMI 19.3
--- NOTE | 2020-11-27 09:48 | ECHOD_ITS ---
Version 3 Reason For Study: Pericardial disease Procedure This was a 2D Doppler, Color Flow transthoracic echocardiogram. Myocardial strain analysis was performed in this exam to aid in the assessment of cardiac function. Exam performed in department. Left Ventricle Normal LV size. Left ventricular systolic function is normal. The estimated ejection fraction is 55 %. Stage 1 diastolic dysfunction. No regional wall motion abnormalities noted. Right Ventricle Normal RV size. Normal systolic function. Atria Normal left atrium. Normal right atrium. Mitral Valve Normal mitral valve. Tricuspid Valve Normal tricuspid valve. Aortic Valve Trisinus/trileaflet aortic valve. Mild focal aortic valve calcification. Pulmonic Valve Normal pulmonic valve. Trivial pulmonic valve insufficiency. Pericardium/Pleural Small pericardial effusion. There are no echocardiographic indications of cardiac tamponade. Moderate size left pleural effusion. MMode/2D Measurements & Calculations LVIDd: 3.1 cm IVSd: 1.2 cm Ao root diam: 3.1 cm LVIDs: 1.8 cm LVPWd: 0.83 cm RVDd: 2.9 cm FS: 40.8 % LAV(MOD-bp): 32.8 ml EDV(MOD-sp4): 37.5 ml EDV(MOD-sp2): 41.3 ml LAV(MOD-bp) Indexed: 23.1 ml/m2 ESV(MOD-sp4): 14.1 ml EF(MOD-sp2): 59.0 % LAV(MOD-sp2): 37.4 ml EF(MOD-sp4): 62.5 % LAV(MOD-sp4): 25.9 ml SV(MOD-sp4): 23.4 ml SV(MOD-sp2): 24.4 ml LA A4 area: 12.4 cm2 RA A4 area: 10.0 cm2 Doppler Measurements & Calculations MV E max sandro: 88.5 cm/sec Lat Peak E' Sandro: 8.0 cm/sec Med Peak E' Sandro: 7.5 cm/sec MV A max sandro: 108.9 cm/sec E/E' lat: 11.0 E/E' med: 11.8 MV E/A: 0.81 Ao V2 max: 109.9 cm/sec LV V1 max: 91.4 cm/sec PA V2 max: 57.1 cm/sec Ao max P.8 mmHg LV V1 max P.3 mmHg ECHO/Echo Complete Interpretation Summary Normal LV size. Left ventricular systolic function is normal. The estimated ejection fraction is 55 %. Small pericardial effusion. There are no echocardiographic indications of cardiac tamponade. Stage 1 diastolic dysfunction. Moderate size left pleural effusion. The global longitudinal strain is normal. The global longitudinal strain = -19. 7 % (normal). Ordering Physician: Carlos Pulido Referring Physician: MD Jose Atul Performed By: Tanisha Berry, [facility]
== END ==
PROVIDERS: PCP Family Medicine; Referring Provider Internal Medicine Cardiovascular Disease; Visit Provider Internal Medicine Cardiovascular Disease
DX: I31.3 Pericardial effusion (noninflammatory) (principal); I31.9 Disease of pericardium, unspecified
CPT/HCPCS: 93306

== ENCOUNTER → 2021-02-17 12:57 | Outpatient (CLI) | payer BC, SELFPAY ==
[2020-11-12 11:12] VITALS: BMI 19.3
[2021-02-11 12:50] VITALS: BMI 19.4
--- NOTE | 2021-02-17 13:01 | ECHOD_ITS ---
Reason For Study: Pericardial effusion Procedure This was a 2D Doppler, Color Flow transthoracic echocardiogram. Bubble study performed. Exam performed in department. Left Ventricle Normal LV size. Left ventricular systolic function is normal. The estimated ejection fraction is 60 %. Stage 1 diastolic dysfunction. No regional wall motion abnormalities noted. Right Ventricle Normal RV size. Normal systolic function. Atria Normal left atrium. Normal right atrium. Bubble contrast study negative for right to left interatrial shunt. Mitral Valve Normal mitral valve. Tricuspid Valve Normal tricuspid valve. Aortic Valve Normal aortic valve. Trisinus/trileaflet aortic valve. Pulmonic Valve Normal pulmonic valve. Great Vessels Normal aortic root. The pulmonary artery is normal size. Normal inferior vena cava. Pericardium/Pleural No pericardial effusion. Moderate size left pleural effusion. Medication 22 gauge I.V. with prn adaptor inserted into right arm. Performed a rapid injection of agitated mix of 9 cc saline and 1cc air to assess for atrial septal defect. MMode/2D Measurements & Calculations LVIDd: 3.1 cm IVSd: 0.61 cm LA dimension: 3.4 cm LVIDs: 1.7 cm LVPWd: 0.73 cm FS: 44.5 % LAV(MOD-bp): 31.1 ml LA A4 area: 12.8 cm2 RA A4 area: 8.8 cm2 LAV(MOD-bp) Indexed: 21.8 ml/m2 LAV(MOD-sp2): 31.9 ml LAV(MOD-sp4): 29.7 ml Time Measurements MV dec time: 0.22 sec Doppler Measurements & Calculations MV E max sandro: 106.9 cm/sec Lat Peak E' Sandro: 9.0 cm/sec Med Peak E' Sandro: 7.8 cm/sec MV A max sandro: 120.0 cm/sec E/E' lat: 11.9 E/E' med: 13.7 MV E/A: 0.89 MV V2 max: 115.1 cm/sec MV P1/2t max sandro: 106.1 cm/sec Ao V2 max: 103.0 cm/sec MV max P.3 mmHg MV P1/2t: 95.3 msec Ao max P.2 mmHg MV V2 mean: 67.0 cm/sec MV dec slope: 326.1 cm/sec2 MV mean P.1 mmHg MV V2 VTI: 35.1 cm MVA(P1/2t): 2.3 cm2 LV V1 max: 107.2 cm/sec PA V2 max: 61.6 cm/sec LV V1 max P.6 mmHg ECHO/Echo Complete Interpretation Summary Normal LV size. Left ventricular systolic function is normal. The estimated ejection fraction is 60 %. Bubble contrast study negative for right to left interatrial shunt. Stage 1 diastolic dysfunction. Moderate size left pleural effusion. The global longitudinal strain is normal. The global longitudinal strain = -18. 8 % (normal). Ordering Physician: Lilliam Samuels Referring Physician: MD Jose Atul Performed By: Kerwin Lamb RCS
== END ==
PROVIDERS: PCP Family Medicine; Referring Provider Physician Assistant Medical; Visit Provider Physician Assistant Medical
DX: I31.3 Pericardial effusion (noninflammatory) (principal); I31.9 Disease of pericardium, unspecified
CPT/HCPCS: 93306; A4216

== ENCOUNTER → 2022-01-20 | Outpatient (CLI) | payer BC, SELFPAY ==
[2022-01-20 17:20] LABS: Anion Gap 4 (5-15); BUN 22 mg/dL (7-18); BUN/Creat Ratio 25.4 RATIO (10-20); Chloride 107 mmol/L (98-107); Creatinine, Serum 0.86 mg/dL (0.55-1.02); EST Glomerular Filtration Rate 70 mL/min (>60); Est Glom Filt Rate - Afr Amer 85 mL/min (>60); Glucose 130 mg/dL (74-106); Potassium 4.3 mmol/L (3.5-5.1); Sodium Level 139 mmol/L (136-145); Thyroid Stim Hormone (TSH) 1.17 uIU/mL (0.358-3.74)
== END | disposition home or self-care (01) ==
LOC: LAB 16:28
PROVIDERS: PCP Family Medicine; Referring Provider Internal Medicine Cardiovascular Disease; Visit Provider Internal Medicine Cardiovascular Disease
DX: R06.00 Dyspnea, unspecified (principal); J90 Pleural effusion, not elsewhere classified
CPT/HCPCS: 36415; 80048; 83735; 84443

== ENCOUNTER 2022-02-01 10:21 | Emergency (ER) | payer OTHER, BC, SELFPAY ==
[2022-02-01 10:22] VITALS: BP 94/69; PULSE 98; RESP 98; TEMP 37.1; O2SAT 91; BMI 18.5
--- NOTE | 2022-02-01 10:32 | EDS_ITS ---
HPI <MICHAEL Pierce - Last Filed: 02/01/22 11:53> History of Present Illness Chief Complaint: Laceration Narrative Narrative: 66-year-old female with history of COPD presents the emergency department with a right lower leg injury. Patient was on her way to work, she works at [employer] when a another employee accidentally struck her in the back of the leg with a shopping cart. Patient has a 5 to 6 cm laceration to the medial aspect of her left right lower leg just above her ankle. She denies any other injury. She is on Plavix for cardiac issues. She arrives by EMS [facility] <MICHAEL Pierce - Last Filed: 02/01/22 11:53> [facility] Medical History (Updated 02/01/22 @ 11:53 by MICHAEL Pierce) Angioedema Atherosclerotic heart disease of [place] coronary artery without angina pectoris Bronchiectasis COPD (chronic obstructive pulmonary disease) Elevated transaminase level Former smoker GERD (gastroesophageal reflux disease) History of non-ST elevation myocardial infarction (NSTEMI) (06/18/20) Hypothyroidism Iron deficiency anemia Pericardial effusion Restrictive pericarditis Secondary pulmonary arterial hypertension Home Medications albuterol sulfate 2 puff INHALATION Q4H PRN PRN 09/07/16 [History Last Taken 09/07/16] multivitamin 1 ea PO DAILY 09/07/16 [History Last Taken 09/06/16] omeprazole 20 mg PO DAILY 09/07/16 [History Last Taken 09/07/16] lorazepam 0.5 mg PO BID PRN PRN 09/26/16 [History Last Taken Unknown] ipratropium-albuterol 1 puff INHALATION 4X/DAY 06/17/20 [History Last Taken Unknown] ascorbic acid (vitamin C) 500 mg PO BIDCM #0 06/20/20 [Rx Last Taken Unknown] budesonide 180 mcg/actuation breath activated powder inhaler 1 inh INHALATION BID 02/11/21 [History Last Taken Unknown] montelukast 10 mg tablet 10 mg PO DAILY tab 02/11/21 [History Last Taken Unknown] vitamin B complex 1 tab PO DAILY 02/11/21 [History Last Taken Unknown] spironolactone 25 mg tablet 25 mg PO DAILY #90 tablet 03/31/21 [Rx Last Taken Unknown] aspirin 81 mg tablet,delayed release 81 mg PO DAILY #90 tab 08/20/21 [Rx Last Taken Unknown] atorvastatin 40 mg tablet 40 mg PO QHS #90 tab 08/20/21 [Rx Last Taken Unknown] bumetanide 1 mg tablet 1 mg PO DAILY #90 tab 08/20/21 [Rx Last Taken Unknown] clopidogrel 75 mg tablet 75 mg PO DAILY #90 tab 08/21/21 [Rx Last Taken Unknown] colchicine 0.6 mg tablet 0.6 mg PO DAILY #30 tablet 01/14/22 [Rx Last Taken Unknown] levothyroxine 88 mcg tablet 88 mcg PO DAILY tablet 01/20/22 [History Last Taken Unknown] metoprolol tartrate 25 mg tablet 12.5 mg PO BID #120 tab 01/20/22 [Rx Last Taken Unknown] potassium chloride 10 mEq tablet,extended release 10 meq PO TID tab 01/20/22 [History Last Taken Unknown] Allergy/AdvReac Type Severity Reaction Status Date / Time amoxicillin [From Augmentin] Allergy Rash Verified 02/01/22 10:22 clavulanic acid Allergy Rash Verified 02/01/22 10:22 [From Augmentin] doxycycline Allergy Rash Verified 02/01/22 10:22 tiotropium AdvReac Unknown PT UNSURE Verified 02/01/22 10:22 OF REACTION budesonide [From Symbicort] AdvReac Other Verified 02/01/22 10:22 bumetanide AdvReac PT UNSURE Verified 02/01/22 10:22 OF REACTION cefdinir AdvReac Bleeding Verified 02/01/22 10:22 clindamycin AdvReac Abd Verified 02/01/22 10:22 cramps/diarrhea fluticasone [From Flonase] AdvReac HEADACHES Verified 02/01/22 10:22 formoterol [From Symbicort] AdvReac HIGH Verified 02/01/22 10:22 FEELING furosemide AdvReac NEEDS Verified 02/01/22 10:22 FOLLOW-UP spironolactone AdvReac NEEDS Verified 02/01/22 10:22 FOLLOW-UP umeclidinium AdvReac Shortness Verified 02/01/22 10:22 of breath Family History Mother Colon cancer Father Heart disease Surgical History History of coronary artery stent placement (06/18/20) History of right and left heart catheterization (05/01/20) History of thoracentesis (11/06/20) Social History Smoking Status: Former smoker ROS <MICHAEL Pierce - Last Filed: 02/01/22 11:53> ROS ED ROS Narrative Constitutional: Negative for fever, chills, weight loss, weakness Eyes: Negative for vision loss, vision change, double vision ENT: Negative for any sore throat, ear pain, congestion Cardiovascular: Negative for any chest pain, tightness, palpitations Respiratory: Negative for any cough, sputum production, hemoptysis, dyspnea, dyspnea on exertion, orthopnea Gastrointestinal: Negative for any abdominal pain, nausea, vomiting, diarrhea, constipation, blood in stool, blood in vomit : Negative for any urinary frequency, dysuria, retention, blood in urine Muscle skeletal: Negative for any muscle joint pain, stiffness, myalgias, arthralgias, neck pain, back pain Neurological: Negative for any headache, syncope, numbness or tingling, dizziness Skin: Negative for any rashes, lumps, itching, abrasions, positive laceration of the right lower leg Psychiatric: Negative for any depression, anxiety, stress, suicidal ideation, homicidal ideation Hematologic: Negative for any easy bruising, excessive bruising, easy bleeding Allergies: Negative for any eczema, hives, rash EXAM <MICHAEL Pierce - Last Filed: 02/01/22 11:53> Physical Exam Narrative Exam Narrative: Vital signs reviewed. Extremities: Patient has a 6 cm diagonal linear laceration to the distal tibia- fibula, there is soft tissue exposed. Negative for any foreign body. There is ecchymosis, edema. Patient has full range of motion of the foot. +2 pedal pulse. Neuro: Cranial nerves II through XII intact, no focal neurological deficits. Skin: Clean dry and intact with no rash, purpura, petechiae, vesicles or pustules. Backs/flank: No CVA tenderness, no midline spinal tenderness, no deformity. Psych: Normal mood and affect. No SI, HI or acute psychosis. Const Vital Signs: 02/01/22 10:22 Temperature 98.7 F Temperature Source Temporal Pulse Rate 98 Respiratory Rate 98 H Blood Pressure 94/69 Blood Pressure Mean 77 Pulse Ox 91 Oxygen Delivery Method Room Air Positive well nourished and well developed General Appearance ED: well developed <Dr. Giovanny Wallace DO - Last Filed: 02/01/22 10:39> Physical Exam Const Vital Signs: 02/01/22 10:22 Temperature 98.7 F Temperature Source Temporal Pulse Rate 98 Respiratory Rate 98 H Blood Pressure 94/69 Blood Pressure Mean 77 Pulse Ox 91 Oxygen Delivery Method Room Air MDM <Alexandro CallesMICHAEL - Last Filed: 02/01/22 11:53> [facility] Narrative Medical decision making narrative: Patient appears well, patient appears nontoxic, vital signs are stable. Patient presents to the emergency department with a laceration to the right leg that happened at [facility] at her job. Patient 's wound is sick centimeters in a diagonal linear fashion to the posterior medial right lower leg just above the ankle. This area was anesthetized with lidocaine with epinephrine, irrigated copiously with 500 cc of normal saline. There is no foreign body found. Patient's wound was closed with 15 simple interrupted 4-0 Ethilon sutures. Patient tolerated well. The edges approximated nicely. Sterile gloves, sterile drapes were used. The patient had a bacitracin dressing applied with Coban for pressure. Patient was ambulatory and did well. All proper Workmen's Comp. paperwork was completed, the patient will follow up with corporate care. Patient was given wound care instructions. And will follow-up for any worsening redness, drainage from the wound. Patient will have these removed in 10 to 14 days <Dr. Giovanny Wallace, DO - Last Filed: 02/01/22 10:39> [facility] Narrative Medical decision making narrative: I have personally performed a face to face assessment of the patient and have reviewed the HERBER Note. I performed a substantive portion of the visit including all aspects of the following. My oliveira findings include: History is [patient presents to the emergency department via EMS after sustaining an injury to her right lower extremity. Patient states that she was walking into work at [facility] when an employee accidentally pushed a cart into her leg. Patient sustained a laceration. EMS was called and patient was brought to the emergency department. She was not allowed to walk afterwards. Patient unsure of her last tetanus. Patient is on Plavix.] Exam is [HEENT-PERRLA, EOMI. Cranial nerves II through XII grossly intact. TMs clear. Mucous membranes moist. No adenopathy. Cardiovascular-regular rate and rhythm without murmur or ectopy Lungs-clear to auscultation, chest wall stable without crepitus or subcu emphysema Abdomen-normoactive bowel sounds, soft, nontender, no rebound or rigidity, no peritoneal signs. Extremities-intact ?4, normal range of motion, normal pulses. Right lower extremity-patient has a 7.5 cm laceration to the posterior aspect of the distal calf. She has no bony tenderness on exam over the tibia or fibula. She has normal flexion extension of the foot with no defect palpated in the Achilles tendon. Neurovascular intact.] Medical Decison Making [patient will require suture repair. Patient was seen in conjunction with physician physical therapy assistant instructor who will repair the wound. Please see his note. Patient to follow-up with corporate care to have sutures removed in 10 days. Patient advised to return if increasing pain, redness, swelling, purulent drainage, or condition should worsen anyway.] Other additions or changes: [None] Procedures <MICHAEL Pierce - Last Filed: 02/01/22 11:53> Lacerations Leg Lacerations: Length: 2.36 in Depth: Sub Q Shape: Linear Prep: Micha Laceration repair: Irrigated and Lidocaine with epi Irrigated (ml): 500 Number of Sutures/[place]: 15 Suture Information: Ethilon Comment: Sterile gloves, sterile drapes were used. Discharge Plan Triage Chief Complaint: Laceration ED Midlevel Provider: Alexandro Calles ED Provider: Giovanny Wallace Dx/Rx/DC Orders Clinical Impression: Laceration Instructions: ED Laceration: All Closures, ED Scar Tips to Minimize, ED Wound Check (No Infection) Prescriptions: No Action potassium chloride 10 mEq tablet extended release 10 meq PO TID RF: 0 levothyroxine 88 mcg tablet 88 mcg PO DAILY RF: 0 montelukast 10 mg tablet 10 mg PO DAILY RF: 0 vitamin B complex [B Complex-Vitamin B12] Tablet 1 tab PO DAILY RF: 0 bumetanide 1 mg tablet 1 mg PO DAILY Qty: 90 RF: 3 aspirin 81 mg tablet,delayed release (DR/EC) 81 mg PO DAILY Qty: 90 RF: 3 atorvastatin 40 mg tablet 40 mg PO QHS Qty: 90 RF: 3 metoprolol tartrate 25 mg tablet 12.5 mg PO BID Qty: 120 RF: 3 multivitamin 1 EACH tablet 1 ea PO DAILY RF: 0 omeprazole 20 MG capsule 20 mg PO DAILY RF: 0 albuterol sulfate 1 INHALER inhaler 2 puff INHALATION Q4H PRN PRN (Reason: Bronchodialation) RF: 0 lorazepam 0.5 MG tablet 0.5 mg PO BID PRN PRN (Reason: Anxiety) RF: 0 ipratropium-albuterol 1 PUFF inhaler 1 puff INHALATION 4X/DAY RF: 0 ascorbic acid (vitamin C) 500 MG tablet,chewable 500 mg PO BIDCM Qty: 0 RF: 0 budesonide 180 mcg/actuation aerosol powdr breath activated 1 inh INHALATION BID RF: 0 spironolactone 25 mg tablet 25 mg PO DAILY Qty: 90 RF: 3 clopidogrel 75 mg tablet 75 mg PO DAILY Qty: 90 RF: 3 colchicine 0.6 mg tablet 0.6 mg PO DAILY Qty: 30 RF: 11 Primary Care Provider: Atul Garcia Referrals: [facility] [GROUP OF PHYSICIANS] - Atul Garcia MD [Primary Care Provider] - Activity Restrictions/Additional Instructions: You had 15 sutures, he will keep this area clean and dry. Please have a bandage. Some drainage of clear bloody fluid is acceptable. Please return for any signs or symptoms of infection. These need to be removed in 10 to 14 days. Please follow-up with [facility] care. Print Language: Mongolian Disposition Disposition: Home, Self Care
[2022-02-01] MEDS: Acetaminophen 500 MG Tablet 1000 MG PO (10:39)
[2022-02-01] MEDS: Diphth,Pertuss(Acell),Tet Vac 0.5 ML Vial IM (10:40)
[2022-02-01] MEDS: Lidocaine 1% /Epi 1:100 (20ml) 20 ML Vial 5 ML INFILT (11:00)
== END 2022-02-01 12:13 | disposition home or self-care (01) ==
PROVIDERS: Emergency Provider Emergency Medicine; PCP Family Medicine; Visit Provider Emergency Medicine
DX: S81.811A Laceration without foreign body, right lower leg, initial encounter (principal); J44.9 Chronic obstructive pulmonary disease, unspecified; I27.21 Secondary pulmonary arterial hypertension; Z87.891 Personal history of nicotine dependence; I10 Essential (primary) hypertension; I25.10 Atherosclerotic heart disease of native coronary artery without angina pectoris; W22.8XXA Striking against or struck by other objects, initial encounter; Y92.512 Supermarket, store or market as the place of occurrence of the external cause; Z79.02 Long term (current) use of antithrombotics/antiplatelets; Z79.899 Other long term (current) drug therapy; K21.9 Gastro-esophageal reflux disease without esophagitis; E03.9 Hypothyroidism, unspecified; I25.2 Old myocardial infarction; D50.9 Iron deficiency anemia, unspecified; Z79.82 Long term (current) use of aspirin; Z95.5 Presence of coronary angioplasty implant and graft; Z23 Encounter for immunization
CPT/HCPCS: 12002; 90471; 90715; 99284

== ENCOUNTER 2022-02-11 17:42 | Emergency (ER) | payer OTHER, BC, SELFPAY ==
[2022-02-11 17:42] VITALS: BP 110/78; PULSE 104; RESP 14; TEMP 36.8; O2SAT 97; BMI 19.1
--- NOTE | 2022-02-11 18:23 | ED.RN ---
Patient see on February 01 for work injury. Patient seen today for same work injury. FROI filled out from original visit on
--- NOTE | 2022-02-11 18:36 | EX.ED.DYSGE1 ---
HPI History of Present Illness Chief Complaint: Lower Extremity Injury Informant: patient Onset/Context/Timing Onset: Days Narrative Narrative: Patient presents secondary to right leg swelling. She was hit by a cart on the back of her right lower leg on February 01 at [facility]. She was seen here for laceration repair. She has been following with Worker's Comp. and has just recently been referred to wound center. She was started on Bactrim yesterday for some surrounding erythema. She has now noted some increased swelling of her right lower leg. [facility] Medical History (Updated 02/11/22 @ 19:[address] Cassidy Tello MD) Angioedema Atherosclerotic heart disease of [place] coronary artery without angina pectoris Bronchiectasis COPD (chronic obstructive pulmonary disease) Elevated transaminase level Former smoker GERD (gastroesophageal reflux disease) History of non-ST elevation myocardial infarction (NSTEMI) (06/18/20) Hypothyroidism Iron deficiency anemia Pericardial effusion Restrictive pericarditis Secondary pulmonary arterial hypertension Home Medications albuterol sulfate 90 mcg/actuation aerosol inhaler 2 puff inhalation Q4H PRN PRN Bronchodialation 09/07/16 [History Last Taken 09/07/16] multivitamin 1 ea PO DAILY supplement 09/07/16 [History Last Taken 09/06/16] omeprazole 20 mg capsule,delayed release 20 mg PO DAILY GERD 09/07/16 [History Last Taken 09/07/16] lorazepam 0.5 mg tablet 0.5 mg PO BID PRN PRN Anxiety 09/26/16 [History Last Taken Unknown] ipratropium 20 mcg-albuterol 100 mcg/actuation mist for inhalation 1 puff inhalation 4X/DAY COPD 06/17/20 [History Last Taken Unknown] ascorbic acid (vitamin C) 500 mg chewable tablet 500 mg PO BIDCM supplement ##0 06/20/20 [Rx Last Taken Unknown] budesonide 180 mcg/actuation breath activated powder inhaler 1 inh inhalation BID COPD 02/11/21 [History Last Taken Unknown] montelukast 10 mg tablet 10 mg PO DAILY 02/11/21 [History Last Taken Unknown] vitamin B complex (B Complex-Vitamin B12) 1 tab PO DAILY 02/11/21 [History Last Taken Unknown] spironolactone 25 mg tablet 25 mg PO DAILY #90 tabs 03/31/21 [Rx Last Taken Unknown] aspirin 81 mg tablet,delayed release 81 mg PO DAILY #90 tabs 08/20/21 [Rx Last Taken Unknown] atorvastatin 40 mg tablet 40 mg PO QHS #90 tabs 08/20/21 [Rx Last Taken Unknown] bumetanide 1 mg tablet 1 mg PO DAILY water pill #90 tabs 08/20/21 [Rx Last Taken Unknown] clopidogrel 75 mg tablet 75 mg PO DAILY #90 tabs 08/21/21 [Rx Last Taken Unknown] colchicine 0.6 mg tablet 0.6 mg PO DAILY gout #30 tabs 01/14/22 [Rx Last Taken Unknown] levothyroxine 88 mcg tablet 88 mcg PO DAILY 01/20/22 [History Last Taken Unknown] metoprolol tartrate 25 mg tablet 12.5 mg PO BID #120 tabs 01/20/22 [Rx Last Taken Unknown] potassium chloride 10 mEq tablet,extended release 10 meq PO TID 01/20/22 [History Last Taken Unknown] sulfamethoxazole 800 mg-trimethoprim 160 mg tablet (Bactrim DS) 1 tab PO Q12H 7 days #14 tabs 02/10/22 [Rx Last Taken Unknown] Allergy/AdvReac Type Severity Reaction Status Date / Time amoxicillin [From Augmentin] Allergy Rash Verified 02/11/22 17:42 clavulanic acid Allergy Rash Verified 02/11/22 17:42 [From Augmentin] doxycycline Allergy Rash Verified 02/11/22 17:42 tiotropium AdvReac Unknown PT UNSURE Verified 02/11/22 17:42 OF REACTION budesonide [From Symbicort] AdvReac Other Verified 02/11/22 17:42 bumetanide AdvReac PT UNSURE Verified 02/11/22 17:42 OF REACTION cefdinir AdvReac Bleeding Verified 02/11/22 17:42 clindamycin AdvReac Abd Verified 02/11/22 17:42 cramps/diarrhea fluticasone [From Flonase] AdvReac HEADACHES Verified 02/11/22 17:42 formoterol [From Symbicort] AdvReac HIGH Verified 02/11/22 17:42 FEELING furosemide AdvReac NEEDS Verified 02/11/22 17:42 FOLLOW-UP spironolactone AdvReac NEEDS Verified 02/11/22 17:42 FOLLOW-UP umeclidinium AdvReac Shortness Verified 02/11/22 17:42 of breath Family History Mother Colon cancer Father Heart disease Surgical History History of coronary artery stent placement (06/18/20) History of right and left heart catheterization (05/01/20) History of thoracentesis (11/06/20) Social History Smoking Status: Former smoker ROS ROS ED Constitutional Constitutional ED: Denies chills or fever(s) Eyes Eyes: Denies change in vision or discharge from eye(s) ENT ENT ED: Denies discharge from eye(s), rhinorrhea or sore throat Cardiovascular Cardiovascular: Denies chest pain or palpitations Respiratory/Chest Respiratory/Chest: Denies cough or dyspnea Gastrointestinal Gastrointestinal: Denies abdominal pain, diarrhea, nausea or vomiting Genitourinary Genitourinary ED: Denies difficulty urinating or dysuria Musculoskeletal Musculoskeletal: Reports extremity pain; Denies back pain Integumentary Reports other Details: Right calf laceration wound Neurologic Neurologic: Denies headache(s) or weakness Allergic/Immunologic Allergic/Immunologic ED: Denies lip swelling or urticaria EXAM Physical Exam Const Vital Signs: 02/11/22 17:42 Temperature 98.2 F Temperature Source Temporal Pulse Rate 104 H Respiratory Rate 14 Blood Pressure 110/78 Blood Pressure Mean 88 Pulse Ox 97 Oxygen Delivery Method Room Air Positive well nourished and well developed General Appearance ED: well developed HEENT Reports normocephalic and head/scalp atraumatic Eyes PERRL and EOMs intact bilaterally Neck supple Chest Wall inspection of chest normal and palpation of chest normal Resp normal respiratory effort and clear to auscultation bilaterally Cardio regular rate and regular rhythm GI normal to inspection, nondistended, normoactive bowel sounds Palpation: soft Extremity Extremity Narrative: Healing 7 cm laceration with sutures intact over the right posterior calf. Surrounding ecchymosis/eschar. Mild erythema noted from her ankle to mid ro. No wound drainage. Mild edema is noted to the right leg. Neuro oriented x3 and no sensory deficits noted Sensorium / Orientation: alert Motor Exam: strength 5/5 throughout Psych mental status grossly normal MDM MDM MDM Narrative Medical decision making narrative: Patient sent for venous ultrasound of the right leg. Radiography Diagnostic Testing: Clinical Impression(s) from Imaging Studies Venous Duplex 02/11/22 18:40 IMPRESSION: There is no demonstrated deep venous thrombosis. Electronically Signed: Gee Cloud MD at 19:24 EDT Reading Location ID and State: [facility] / [place] , Service support , Treatment and Re-Evaluation Narrative: Venous ultrasound reveals no evidence of DVT. Wound is cleansed and 5 of the sutures are removed. In light of her slow healing I only removed a fraction of the total sutures. Antibiotic ointment is placed and dressing applied. Should be written off work the next 2 days. She is to follow-up with [facility] on Wednesday. Discharge Plan Triage Chief Complaint: Lower Extremity Injury ED Provider: Cassidy Tello Dx/Rx/DC Orders Clinical Impression: Leg wound, right Instructions: ED Contusion, Lower Extremity, ED Wound Care Prescriptions: No Action potassium chloride 10 mEq tablet extended release 10 meq PO TID levothyroxine 88 mcg tablet 88 mcg PO DAILY Rx Instructions: one and one half tablet wednesday montelukast 10 mg tablet 10 mg PO DAILY vitamin B complex [B Complex-Vitamin B12] Tablet 1 tab PO DAILY bumetanide 1 mg tablet 1 mg PO DAILY Qty: 90 3RF aspirin 81 mg tablet,delayed release (DR/EC) 81 mg PO DAILY Qty: 90 3RF atorvastatin 40 mg tablet 40 mg PO QHS Qty: 90 3RF metoprolol tartrate 25 mg tablet 12.5 mg PO BID Qty: 120 3RF sulfamethoxazole-trimethoprim [Bactrim DS] 800-160 mg tablet 1 tab PO Q12H 7 Days Qty: 14 0RF multivitamin 1 EACH tablet 1 ea PO DAILY Label Comments: SUPPLEMENT omeprazole 20 MG capsule 20 mg PO DAILY Label Comments: ACID REFLUX albuterol sulfate 1 INHALER inhaler 2 puff INHALATION Q4H PRN PRN (Reason: Bronchodialation) Label Comments: SHORTNESS OF BREATH lorazepam 0.5 MG tablet 0.5 mg PO BID PRN PRN (Reason: Anxiety) Label Comments: Anxiety ipratropium-albuterol 1 PUFF inhaler 1 puff INHALATION 4X/DAY Label Comments: INHALE 1 PUFF BY MOUTH DIRECTED 4 TIMES DAILY ascorbic acid (vitamin C) 500 MG tablet,chewable 500 mg PO BIDCM Qty: 0 0RF Rx Instructions: Take with iron budesonide 180 mcg/actuation aerosol powdr breath activated 1 inh INHALATION BID spironolactone 25 mg tablet 25 mg PO DAILY Qty: 90 3RF clopidogrel 75 mg tablet 75 mg PO DAILY Qty: 90 3RF colchicine 0.6 mg tablet 0.6 mg PO DAILY Qty: 30 11RF Stand Alone Forms: ED Work / School Excuse Primary Care Provider: Atul Garcia Referrals: Atul Garcia MD [Primary Care Provider] - Activity Restrictions/Additional Instructions: Follow-up with Worker's Comp. on Wednesday as scheduled. Disposition Disposition: Home, Self Care
--- NOTE | 2022-02-11 18:40 | US_ITS ---
STUDY: VENOUS DOPPLER ULTRASOUND - RIGHT LOWER EXTREMITY REASON FOR EXAM: Female, 66 years old. LEG PAIN AND SWELLING RT LOWER MEDIAL LEG SWELLING/REDNESS- HIT BY A SHOPPING CART-- STITCHES TECHNIQUE: Ultrasound evaluation of the deep vein system to include parrish-scale imaging and compression was performed. Parrish-scale imaging and Doppler sonographic evaluation, including duplex spectral analysis and qualitative color flow sonography, was performed. COMPARISON: None. FINDINGS: Common Femoral Vein: Normal compression, spontaneity and augmentation. Normal color Doppler. Common Femoral Vein/Greater Saphenous Junction: Normal compression, spontaneity and augmentation. Normal color Doppler. Superficial Femoral Proximal: Normal compression, spontaneity and augmentation. Normal color Doppler. Superficial Femoral Middle: Normal compression, spontaneity and augmentation. Normal color Doppler. Superficial Femoral Distal: Normal compression, spontaneity and augmentation. Normal color Doppler. Popliteal Vein: Normal compression, spontaneity and augmentation. Normal color Doppler. Posterior Tibial Vein: Normal compression, spontaneity and augmentation. Normal color Doppler. Peroneal Vein: Normal compression, spontaneity and augmentation. Normal color Doppler. Leg swelling. There is no demonstrated deep venous thrombosis. US/Venous Duplex Imag/Limited/Uni IMPRESSION: There is no demonstrated deep venous thrombosis. Electronically Signed: Gee Cloud MD at 19:24 EDT ,
[2022-02-11 20:07] VITALS: PULSE 90; RESP 16; O2SAT 96
== END 2022-02-11 20:08 | disposition home or self-care (01) ==
PROVIDERS: Emergency Provider Emergency Medicine; PCP Family Medicine; Visit Provider Emergency Medicine
DX: S81.801A Unspecified open wound, right lower leg, initial encounter (principal); J44.9 Chronic obstructive pulmonary disease, unspecified; I27.21 Secondary pulmonary arterial hypertension; W22.8XXA Striking against or struck by other objects, initial encounter; I25.10 Atherosclerotic heart disease of native coronary artery without angina pectoris; Z87.891 Personal history of nicotine dependence; I25.2 Old myocardial infarction; K21.9 Gastro-esophageal reflux disease without esophagitis; E03.9 Hypothyroidism, unspecified; D50.9 Iron deficiency anemia, unspecified; Z79.899 Other long term (current) drug therapy; Z79.82 Long term (current) use of aspirin; Z95.5 Presence of coronary angioplasty implant and graft
CPT/HCPCS: 93971; 99282

== ENCOUNTER → 2022-02-17 | Outpatient (CLI) | payer BC, SELFPAY | END | disposition home or self-care (01) | LOC: LABSPEC 15:27 | PROVIDERS: PCP Family Medicine; Referring Provider Physician Assistant Surgical; Visit Provider Physician Assistant Surgical | DX: S81.801A Unspecified open wound, right lower leg, initial encounter (principal) | CPT/HCPCS: 87070; 87205 ==

== ENCOUNTER 2022-03-20 07:50 | Outpatient (RCR) | payer OTHER, SELFPAY ==
[2022-03-20 08:06] VITALS: BP 144/93; PULSE 100; TEMP 36.2
--- NOTE | 2022-03-20 10:14 | PCM.WC.HP ---
History of Present Illness Date of Service: 03/20/22 Chief Complaint: Right posterior leg ulcers after being hit with a shopping cart. History of Wound: Patient is a 67 year old female who presents to the wound center with a workman's comp injury to her right leg on 02/01/2022 when a cart was pushed into her leg. She initially went to the ED and received 15 sutures. Since then she has been seeing [facility] until she was approved to come see the wound center. She has been putting antibiotic ointment on the wounds and covering with non adherent gauze and co band. She had a Venous Duplex on 02/11/22 of her right lower extremity which showed no demonstrated deep venous thrombosis. She has a significant cardiac history with placement of stents x2, COPD, quit smoking 10 years ago, she is on Plavix. Today she denies fever, chills, nausea and vomiting. Progress of Wound: Right posterior leg ulcers with significant amount of slough and nonviable tissue. On the superior ulcer is a thick area of eschar. She has a significant amount of swelling in her right lower extremity. [facility] Medical History (Updated 03/20/22 @ 15:11 by Alivia Liriano DIRECTOR OF PATIENT FINANCIAL SERVICES, DIRECTOR OF PATIENT FINANCIAL SERVICES-C) Angioedema Atherosclerotic heart disease of [place] coronary artery without angina pectoris Bronchiectasis COPD (chronic obstructive pulmonary disease) Elevated transaminase level Former smoker GERD (gastroesophageal reflux disease) History of non-ST elevation myocardial infarction (NSTEMI) (06/18/20) Hypothyroidism Iron deficiency anemia Pericardial effusion Restrictive pericarditis Secondary pulmonary arterial hypertension Home Medications albuterol sulfate 90 mcg/actuation aerosol inhaler 2 puff inhalation Q4H PRN PRN Bronchodialation 09/07/16 [History Last Taken 09/07/16] multivitamin 1 ea PO DAILY supplement 09/07/16 [History Last Taken 09/06/16] omeprazole 20 mg capsule,delayed release 20 mg PO DAILY GERD 09/07/16 [History Last Taken 09/07/16] lorazepam 0.5 mg tablet 0.5 mg PO BID PRN PRN Anxiety 09/26/16 [History Last Taken Unknown] ipratropium 20 mcg-albuterol 100 mcg/actuation mist for inhalation 1 puff inhalation 4X/DAY COPD 06/17/20 [History Last Taken Unknown] ascorbic acid (vitamin C) 500 mg chewable tablet 500 mg PO BIDCM supplement ##0 06/20/20 [Rx Last Taken Unknown] budesonide 180 mcg/actuation breath activated powder inhaler 1 inh inhalation BID COPD 02/11/21 [History Last Taken Unknown] montelukast 10 mg tablet 10 mg PO DAILY 02/11/21 [History Last Taken Unknown] vitamin B complex (B Complex-Vitamin B12 tablet) 1 tab PO DAILY 02/11/21 [History Last Taken Unknown] spironolactone 25 mg tablet 25 mg PO DAILY #90 tabs 03/31/21 [Rx Last Taken Unknown] aspirin 81 mg tablet,delayed release 81 mg PO DAILY #90 tabs 08/20/21 [Rx Last Taken Unknown] atorvastatin 40 mg tablet 40 mg PO QHS #90 tabs 08/20/21 [Rx Last Taken Unknown] bumetanide 1 mg tablet 1 mg PO DAILY water pill #90 tabs 08/20/21 [Rx Last Taken Unknown] clopidogrel 75 mg tablet 75 mg PO DAILY #90 tabs 08/21/21 [Rx Last Taken Unknown] colchicine 0.6 mg tablet 0.6 mg PO DAILY gout #30 tabs 01/14/22 [Rx Last Taken Unknown] levothyroxine 88 mcg tablet 88 mcg PO DAILY 01/20/22 [History Last Taken Unknown] metoprolol tartrate 25 mg tablet 12.5 mg PO BID #120 tabs 01/20/22 [Rx Last Taken Unknown] potassium chloride 10 mEq tablet,extended release 10 meq PO TID 01/20/22 [History Last Taken Unknown] Allergy/AdvReac Type Severity Reaction Status Date / Time amoxicillin [From Augmentin] Allergy Rash Verified 03/10/22 10:50 clavulanic acid Allergy Rash Verified 03/10/22 10:50 [From Augmentin] doxycycline Allergy Rash Verified 03/10/22 10:50 tiotropium AdvReac Unknown PT UNSURE Verified 03/10/22 10:50 OF REACTION budesonide [From Symbicort] AdvReac Other Verified 03/10/22 10:50 bumetanide AdvReac PT UNSURE Verified 03/10/22 10:50 OF REACTION cefdinir AdvReac Bleeding Verified 03/10/22 10:50 clindamycin AdvReac Abd Verified 03/10/22 10:50 cramps/diarrhea fluticasone [From Flonase] AdvReac HEADACHES Verified 03/10/22 10:50 formoterol [From Symbicort] AdvReac HIGH Verified 03/10/22 10:50 FEELING furosemide AdvReac NEEDS Verified 03/10/22 10:50 FOLLOW-UP spironolactone AdvReac NEEDS Verified 03/10/22 10:50 FOLLOW-UP umeclidinium AdvReac Shortness Verified 03/10/22 10:50 of breath Family History (Reviewed 03/20/22 @ 13:56 by Alivia Liriano DIRECTOR OF PATIENT FINANCIAL SERVICES, DIRECTOR OF PATIENT FINANCIAL SERVICES-C) Mother Colon cancer Father Heart disease Surgical History (Reviewed 03/20/22 @ 13:56 by Alivia Liriano DIRECTOR OF PATIENT FINANCIAL SERVICES, DIRECTOR OF PATIENT FINANCIAL SERVICES-C) History of coronary artery stent placement (06/18/20) History of right and left heart catheterization (05/01/20) History of thoracentesis (11/06/20) Social History (Reviewed 03/20/22 @ 13:56 by Alivia Liriano DIRECTOR OF PATIENT FINANCIAL SERVICES, DIRECTOR OF PATIENT FINANCIAL SERVICES-C) Smoking Status: Former smoker ROS Constitutional Constitutional: Denies chills, fatigue, fever(s) or frequent falls Eyes Eyes: Reports none ENT HEENT: Reports none Cardiovascular Cardiovascular: Reports dyspnea on exertion, leg edema and leg ulcers; Denies chest pain or dizziness Respiratory/Chest Respiratory/Chest: Reports cough, dyspnea and dyspnea on exertion Gastrointestinal Gastrointestinal: Reports none Musculoskeletal Musculoskeletal: Denies atrophy Integumentary Integumentary: Reports skin pain and skin ulcer Psychiatric Psychiatric: Reports systems reviewed and no addt'l complaints, except as documented Endocrine Endocrinology: Reports cold intolerance and fatigue Vital Signs Vital Signs Vital Signs: 03/20/22 08:06 Temperature 97.2 F L Temperature Source Temporal Pulse Rate 100 Blood Pressure 144/93 H Blood Pressure Mean 110 Blood Pressure Source Monitor Blood Pressure Position Sitting Blood Pressure Location Right Arm Physical Exam Const alert and oriented x3 General Appearance: cooperative, comfortable and well kempt HEENT normocephalic, head/scalp atraumatic and hearing grossly normal bilaterally Neck full ROM Resp normal respiratory effort, normal air movement and no retractions Effort and Inspection: able to speak in complete sentences Cardio regular rate and regular rhythm Peripheral Pulses: dorsalis pedis pulses present right 1+ and diminished GI soft to palpation and non-tender Extremity full ROM and normal capillary refill Extremity Narrative: Right lower leg with +2 pitting edema. The surrounding skin is darker and shiny in appearance. Pedal pulses are diminished +1 bilaterally. Skin Wound Narrative: Right posterior superior ulcer with thick eschar in place. It was removed along with nonviable tissue. The right posterior, inferior incision with increased non viable, fibrous tissue. Tunneling present. Neuro oriented x3 Psych mental status grossly normal Debridement Note Debridement Note Wound debrided: posterior, superior ulcer Laterality: Right Wound Grade/Stage: Stage IV Type of Debridement: Excisional debridement Anesthesia Used: 5% Lidocaine Gel Depth: Down to and including healthy tissue and in the subcutaneous layer Percentage of wound debrided: 100 Instrument Used: 5mm curette Tissue Removed: Non viable tissue and slough Severity: Fat Layer Exposed Amount of bleeding with debridement: Mild Bleeding Controlled with: Pressure and Compression and gauze Patient tolerated procedure: Patient tolerated procedure well Debridement Free Text: Patient did well with debridement, even though it was very painful for her. Post-Debridement Measurements and Additional Note: Post-Debridement Measurements/Treatment - Nurse 1 - General Ulcer Assessment Start: 03/20/22 08:06 Freq: Status: Active Protocol: AB.EDWINAT Activity Type Activity Date Activity User E-sign Co-sign Detail Recorded Client Recorded Date Recorded By Document 03/20/22 08:06 [id number] 03/20/22 08:16 TOOTIE 03/20/22 08:06 - Today's Visit Information Type of service Initial Visit Arrival Mode Ambulatory,Cane Patient Identification Verified (Name & Yes ) Vital Signs Temperature (97.8 F-99.1 F) 97.2 F L Temperature Source Temporal Pulse Rate (60-100) 100 Pulse Location Monitor Blood Pressure (90/60-120/80) 144/93 H Blood Pressure Mean 110 Source Monitor Position Sitting Blood Pressure Location Right Arm History Since Last Visit- (Skip if this is Patient's initial visit) Have you changed medications since your No last visit? Any new allergies or adverse reactions No Had a fall/change in ADL's that may No increase risk of falls Signs or symptoms of abuse and/or No neglect since last visit Have you been in the hospital since your No last visit? Has dressing in place as prescribed Yes Has compression in place as prescribed Yes Has offloadiing in place as prescribed N/A Experienced any changes in pain level or No management Left Footwear Regular Shoe Right Footwear Regular Shoe Pain Scale: 0-10 Numeric Is Patient Pain Free? Yes WC - Nurse 1 - General Ulcer Measurement Start: 03/20/22 08:06 Freq: Status: Active Protocol: Activity Type Activity Date Activity User E-sign Co-sign Detail Recorded Client Recorded Date Recorded By Document 03/20/22 08:06 TOOTIE [id number] 03/20/22 08:16 TOOTIE 03/20/22 08:06 Wound Center Nurse 1 #2 Right Inferior calf cluster -Current Size (cm) - Length 2.4 -Current Size (cm) - Width 5 -Current Size (cm) - Depth 0.2 -Total Square Cm 12.0 -Exudate Amt Medium -Exudate Type Yellow/Green -Wound Margin Distinct, Outline Attached -Granulation Amt Small (1-33%) -Granulation Quality Cool -Necrosis Amt Large (67-100%) -Necrotic Tissue Type Adherent Slough -Texture (Aneta-wound Skin Appearance) Assessed, Scarring -Moisture (Aneta-wound Skin Appearance) No Abnormality, Assessed -Color (Aneta-wound Skin Appearance) No Abnormality, Assessed -Temperature (Aneta-wound Skin No Abnormality Appearance) (Pt Warm) -Tenderness on Palpation (Aneta-wound No Skin Appearance) -Ulcer Cleansing Rinsed/ Irrigated with Saline -Foul Odor after Cleansing No -Anesthetic Used 5% Lidocaine Gel #1 Right Superior -Current Size (cm) - Length 3.4 -Current Size (cm) - Width 3.8 -Current Size (cm) - Depth 0.1 -Total Square Cm 12.92 -Exudate Amt Medium -Exudate Type Serosanguineous -Wound Margin Distinct, Outline Attached -Granulation Amt None Present (0 %) -Necrosis Amt Large (67-100%) -Necrotic Tissue Type Eschar -Texture (Aneta-wound Skin Appearance) Assessed, Scarring -Moisture (Aneta-wound Skin Appearance) No Abnormality, Assessed -Color (Aneta-wound Skin Appearance) No Abnormality, Assessed -Temperature (Aneta-wound Skin No Abnormality Appearance) (Pt Warm) -Tenderness on Palpation (Aneta-wound No Skin Appearance) -Ulcer Cleansing Rinsed/ Irrigated with Saline -Foul Odor after Cleansing No -Anesthetic Used 5% Lidocaine Gel Right Calf (cm) 31.7 Right Ankle (cm) 32.4 WC - Nurse 2 - General Ulcer CM Notes Start: 03/20/22 08:06 Freq: Status: Active Protocol: Activity Type Activity Date Activity User E-sign Co-sign Detail Recorded Client Recorded Date Recorded By Document 03/20/22 08:37 [id number] 03/20/22 08:56 03/20/22 08:37 Wound Center Nurse 2 #2 Right Inferior calf cluster -Time 08:37 -Correct Patient Yes -Correct Side, Site, Position Yes -Correct Procedure Yes -Procedure Performed Yes -Type of Procedure Debridement -Clinical Debridement Subcutaneous -Tissue Removed Dermis -Post Debridement (cm) - Length 2.8 -Post Debridement (cm) - Width 2.8 -Post Debridement (cm) - Depth 2.0 -Total Square (Post) (cm) 7.84 -Area of Debridement (cm) - Length 2.8 -Area of Debridement (cm) - Width 2.8 -Total Square (Area) (cm) 7.84 -Tunneling Yes -Tunneling Position (O'clock) 5 -Tunneling Distance (cm) 2.7 -Undermining/Tunneling No -Circular Undermining No -Wound/Ulcer Outcome Not Healed -Ulcer Cleansing Rinsed/ Irrigated with Saline -Foul Odor after Cleansing No -Bioengineered Tissue No -Bleeding Controlled with Pressure -Treatment Response Procedure Tolerated Well -Offloading No -Debridement - Subq, 1st 20sq cm No #1 Right Superior -Time 08:38 -Correct Patient Yes -Correct Side, Site, Position Yes -Correct Procedure Yes -Procedure Performed Yes -Type of Procedure Debridement -Clinical Debridement Subcutaneous -Tissue Removed Subcutaneous -Post Debridement (cm) - Length 3.5 -Post Debridement (cm) - Width 3.6 -Post Debridement (cm) - Depth 0.3 -Total Square (Post) (cm) 12.60 -Area of Debridement (cm) - Length 3.5 -Area of Debridement (cm) - Width 3.6 -Total Square (Area) (cm) 12.60 -Tunneling No -Undermining/Tunneling Yes -Undermining/Tunneling Starts (O'clock 11 ) -Undermining/Tunneling Ends (O'clock) 5 -Maximum Distance (cm) 0.3 -Circular Undermining No -Wound/Ulcer Outcome Not Healed -Ulcer Cleansing Rinsed/ Irrigated with Saline -Foul Odor after Cleansing No -Bioengineered Tissue No -Bleeding Controlled with Pressure -Treatment Response Procedure Tolerated Well -Offloading No -Debridement - Subq, 1st 20sq cm Yes Pain Scale: 0-10 Numeric Is Patient Pain Free? Yes - Nurse 3 - General Ulcer D/C NN Start: 03/20/22 08:06 Freq: Status: Active Protocol: Activity Type Activity Date Activity User E-sign Co-sign Detail Recorded Client Recorded Date Recorded By Document 03/20/22 09:57 TOOTIE [id number] 03/20/22 09:58 TOOTIE 03/20/22 09:57 Wound Care Nurse 3 #2 Right Inferior calf cluster -Ulcer Cleansing Rinsed/ Irrigated with Saline -Primary Dressing Applied Aquacel AG 4x4 -Primary Dressing Covered/Secured with Dry Gauze, Secured with Tape -Aquacel AG 4x4 1 #1 Right Superior -Ulcer Cleansing Rinsed/ Irrigated with Saline -Primary Dressing Applied Aquacel AG 4x4 -Primary Dressing Covered/Secured with Dry Gauze,Dry Gauze & Roll Gauze,Secured with Tape -Aquacel AG 4x4 1 Right -Tubular Bandage Double Layer -Size of Tubigrip Used Size D -Size D ($) 2 Left -Tubular Bandage Double Layer -Size of Tubigrip Used Size D -Size D ($) 2 Pain Scale: 0-10 Numeric Is Patient Pain Free? Yes - Visit Discharge Discharge Condition Stable Ambulatory Status Ambulatory,Cane Transportation Private Auto Additional Wound Wound debrided: posterior, inferior ulcer Laterality: Right Wound Grade/Stage: Stage IV Type of Debridement: Excisional debridement Anesthesia Used: 5% Lidocaine Gel Depth: Down to and including healthy tissue and in the subcutaneous layer Percentage of wound debrided: 100 Instrument Used: 3mm curette Tissue Removed: Non viable tissue and slough Severity: Fat Layer Exposed Amount of bleeding with debridement: Mild Bleeding Controlled with: Pressure and Compression and gauze Patient tolerated procedure: Patient tolerated procedure well Charges/Coding Visit Charges Office Visits / Consults: 28712 OV L4 Est (25 modifier) Procedures Integumentary [id number]: [id number] Susie subq tissue 20 sq cm/< Add On Codes: [id number] Susie subq tissue add-on (x 1) Assessment/Plan Assessment/Plan (1) Ulcer of right lower extremity with fat layer exposed: CODE(S): L97.912 - Non-pressure chronic ulcer of unspecified part of right lower leg with fat layer exposed (2) Edema of right lower extremity: CODE(S): R60.0 - Localized edema (3) Non-healing ulcer of ankle with fat layer exposed: CODE(S): L97.302 - Non-pressure chronic ulcer of unspecified ankle with fat layer exposed (4) Leg wound, right: CODE(S): S81.801A - Unspecified open wound, right lower leg, initial encounter PLAN: Plan Patient was evaluated in the wound center today. Subcutaneous debridement was performed as previously documented. The ulcers had a significant amount of nonviable tissue. Hopefully with proper management of the ulcers and helping get edema under control, she will start to be able to heal this ulcer. Wound care -we will place Aquacel?AG into the base of both ulcers. She will need to pack the Aquacel into the posterior inferior ulcer tunnel. She will cover these ulcers with gauze. The dressing changes will be done daily. At the time of the dressing change she will wash with soap and water and pat dry. A wound culture was obtained today. Depending on the results of the wound culture it may necessitate the need for treatment with antibiotics. Will order arterial studies. She already had an ultrasound on 02/11/22. Will use double layer tubigrip for compression until arterial studies are complete. Instructed her to keep leg elevated when sitting. Encouraged her to walk and to avoid standing for long periods of time. She is back to work with as 10 lb weight lifting/pushing/pulling restriction. Encouraged her to elevate her right leg when she is on her break. Encouraged increase protein in take and to increase vitamin C intake to 1,000 mg daily. Follow up one week. She is to call or come in sooner if she develops any concerns. Over 35 minutes was spent with patient, organizing plan of care, reviewing previous records and test results.
== END 2022-03-22 23:59 | disposition home or self-care (01) ==
LOC: WC 07:50
PROVIDERS: PCP Family Medicine; Referring Provider Nurse Practitioner Family; Visit Provider Nurse Practitioner Family
DX: S81.811A Laceration without foreign body, right lower leg, initial encounter (principal); L97.812 Non-pressure chronic ulcer of other part of right lower leg with fat layer exposed; L97.302 Non-pressure chronic ulcer of unspecified ankle with fat layer exposed; J44.9 Chronic obstructive pulmonary disease, unspecified; I27.21 Secondary pulmonary arterial hypertension; J47.9 Bronchiectasis, uncomplicated; R60.0 Localized edema; B96.1 Klebsiella pneumoniae [K. pneumoniae] as the cause of diseases classified elsewhere; W22.8XXA Striking against or struck by other objects, initial encounter; Y99.0 Civilian activity done for income or pay; M79.89 Other specified soft tissue disorders; I25.10 Atherosclerotic heart disease of native coronary artery without angina pectoris; D50.9 Iron deficiency anemia, unspecified; E03.9 Hypothyroidism, unspecified; K21.9 Gastro-esophageal reflux disease without esophagitis; Z79.51 Long term (current) use of inhaled steroids; Z79.82 Long term (current) use of aspirin; Z79.02 Long term (current) use of antithrombotics/antiplatelets; Z79.890 Hormone replacement therapy; Z79.899 Other long term (current) drug therapy; I25.2 Old myocardial infarction; Z87.891 Personal history of nicotine dependence; Z95.5 Presence of coronary angioplasty implant and graft
CPT/HCPCS: 11042; 11045; 87070; 87075; 87077; 87186; 87205; 99214; G0463

== ENCOUNTER 2022-04-15 14:30 | Outpatient (RCR) | payer OTHER, SELFPAY ==
[2022-03-23 00:41] VITALS: BP 144/93; PULSE 100; TEMP 36.2
[2022-03-27 08:09] VITALS: BP 119/70; PULSE 89; TEMP 36.3
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
[2022-04-08 13:35] VITALS: BP 128/78; PULSE 94; TEMP 35.7
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
[2022-04-15 14:40] VITALS: BP 101/68; PULSE 72; TEMP 36.1
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
== END 2022-04-22 23:59 | disposition home or self-care (01) ==
LOC: WC 14:30
PROVIDERS: PCP Family Medicine; Visit Provider Nurse Practitioner Family
DX: L97.812 Non-pressure chronic ulcer of other part of right lower leg with fat layer exposed (principal); L97.302 Non-pressure chronic ulcer of unspecified ankle with fat layer exposed; J44.9 Chronic obstructive pulmonary disease, unspecified; S80.11XS Contusion of right lower leg, sequela; S81.811S Laceration without foreign body, right lower leg, sequela; Y99.0 Civilian activity done for income or pay; R60.0 Localized edema; Z79.02 Long term (current) use of antithrombotics/antiplatelets; Z87.891 Personal history of nicotine dependence; Z95.5 Presence of coronary angioplasty implant and graft
CPT/HCPCS: 11042

== ENCOUNTER 2022-05-18 13:00 | Outpatient (RCR) | payer OTHER, SELFPAY ==
[2022-04-23 00:38] VITALS: BP 101/68; PULSE 72; TEMP 36.1
[2022-04-30 15:04] VITALS: BP 114/72; PULSE 96; RESP 18; TEMP 36.4
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
[2022-05-11 08:54] VITALS: BP 118/74; PULSE 93; RESP 18; TEMP 36.3
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
--- NOTE | 2022-05-18 10:53 | ART_ITS ---
Reason For Study: Ulcer Procedure A bilateral lower extremity continuous wave Doppler with analog waveform analysis,segmental pressures,and ankle brachial indexes without exercise. Left Segmental Pressures Left brachial= 103mmHg. Left posterior tibial artery = 117mmHg. Left dorsalis pedis artery = 112mmHg. Left digit = 79 mmHg. Right Segmental Pressures Right brachial= 103mmHg. Right posterior tibial artery = 122mmHg. Right dorsalis pedis artery = 137mmHg. Right digit = 62 mmHg. Indices The right ankle brachial index by the posterior tibial artery is 1.18. The right ankle brachial index by the dorsalis pedis is 1.33. The right digital-brachial index is 0.60. The left ankle brachial index by the posterior tibial artery is 1.14. The left ankle brachial index by the dorsalis pedis is 1.09. The left digital-brachial index is 0.77. VL/Lower Ext Art Exam w/o Exercis Interpretation Summary Triphasic Doppler waveforms are noted at ankle level bilaterally. Pulse-volume recordings appear diminished at digital level bilaterally, but satisfactory at all other levels b ilaterally. Resting ankle-brachial indices are normal bilaterally. The right digital-brachial index is mildly diminished. The left digital-brachial index is normal. Arterial flow appears normal at ankle level bilaterally, and at digital level o n the left. There is evidence of mild arterial occlusive disease at digital level on the right. Ordering Physician: Alivia Liriano Referring Physician: Atul Garcia Performed By: Arline Grullon RDCS/RVT
[2022-05-18 12:47] VITALS: BP 119/99; PULSE 96; TEMP 36.8
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
== END 2022-05-22 23:59 | disposition home or self-care (01) ==
LOC: WC 13:00
PROVIDERS: PCP Family Medicine; Referring Provider Nurse Practitioner Family; Visit Provider Nurse Practitioner Family
DX: L97.812 Non-pressure chronic ulcer of other part of right lower leg with fat layer exposed (principal); I70.238 Atherosclerosis of native arteries of right leg with ulceration of other part of lower leg; J44.9 Chronic obstructive pulmonary disease, unspecified; Z87.891 Personal history of nicotine dependence; R53.1 Weakness; S81.811S Laceration without foreign body, right lower leg, sequela; S80.11XS Contusion of right lower leg, sequela; R60.0 Localized edema; Z79.02 Long term (current) use of antithrombotics/antiplatelets; W22.8XXS Striking against or struck by other objects, sequela; Y99.0 Civilian activity done for income or pay
CPT/HCPCS: 11042; 15271; 93923; Q4186

== ENCOUNTER 2022-06-08 08:30 | Outpatient (RCR) | payer OTHER, SELFPAY ==
[2022-05-23 01:29] VITALS: BP 119/99; PULSE 96; RESP 18; TEMP 36.8
[2022-05-25 08:33] VITALS: BP 122/101; PULSE 76; TEMP 36.1
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
[2022-06-01 08:36] VITALS: BP 118/77; PULSE 79; TEMP 36.1
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
[2022-06-08 08:40] VITALS: BP 128/81; PULSE 79; TEMP 36.4
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
== END 2022-06-10 15:08 | disposition home or self-care (01) ==
LOC: WC 08:30
PROVIDERS: PCP Family Medicine; Referring Provider Nurse Practitioner Family; Visit Provider Nurse Practitioner Family
DX: L97.312 Non-pressure chronic ulcer of right ankle with fat layer exposed (principal); J44.9 Chronic obstructive pulmonary disease, unspecified; R60.0 Localized edema; S81.811S Laceration without foreign body, right lower leg, sequela; S80.11XS Contusion of right lower leg, sequela; W22.8XXS Striking against or struck by other objects, sequela; Y99.0 Civilian activity done for income or pay; Z79.82 Long term (current) use of aspirin; Z79.02 Long term (current) use of antithrombotics/antiplatelets; Z79.899 Other long term (current) drug therapy; Z95.5 Presence of coronary angioplasty implant and graft; Z87.891 Personal history of nicotine dependence
CPT/HCPCS: 15271; 97597; 99213; Q4186; G0463

== ENCOUNTER 2022-06-17 10:27 | Inpatient (IN) | payer BC, MEDICARE, SELFPAY ==
[2022-06-17] VITALS (15 sets, daily range): BP systolic 109–145; BP diastolic 71–77; PULSE 78–113; RESP 16–24; TEMP 36.5–37.3; O2SAT 75–98; BMI 18.6; BMI 14.7
--- NOTE | 2022-06-17 10:50 | RAD_ITS ---
EXAM: XR CHEST, 1 VIEW CLINICAL INDICATION: sob TECHNIQUE: Frontal view of the chest. This report was created using [employer] report generation technology. COMPARISON: XR Chest dated 10/07/2020 FINDINGS: LUNGS AND PLEURAL SPACES: Bilateral pleural effusions greater in size on the left than right associated with compression atelectasis of lower lobes. Similar findings noted on prior exam. No pneumothorax. HEART: Stable heart size. MEDIASTINUM: No mediastinal or hilar mass. BONES/JOINTS: No acute abnormality. SOFT TISSUES: Normal. RAD/Chest 1 View (Portable) IMPRESSION: Bilateral pleural effusions with compression atelectasis of the lower lobe/pneumonia. Electronically Signed: Liam Duggan MD at 11:09 EDT ,
[2022-06-17 10:54] LABS: Absolute Lymphocyte Count 0.28 X10^3/uL (0.83-4.51); Absolute Neutrophil Count 10.2 X10^3/uL (2.0-7.7); Basophil# 0.03 X10^3/uL; Basophil% 0.3 % (0-1); Eosinophil# 0.07 X10^3/uL; Eosinophils% 0.6 % (0-5); Hematocrit 37.6 % (37-47); Hemoglobin 11.5 g/dL (12.0-15.0); Lymphocyte # 0.28 X10^3/ul (0.83-4.51); Lymphocyte % 2.4 % (19-41); Mean Corp Hgb Conc 30.6 g/dL (32-36); Mean Corpuscular Hgb 25.7 pg (27.0-32.0); Mean Corpuscular Volume 83.9 fL (81-99); Monocyte# 0.89 X10^3/uL; Monocyte% 7.7 % (0-10); NRBC Flagged by Analyzer 0 % (0-5); Neutrophil # 10.18 X10^3/uL (2.7-7.7); Neutrophil % 88.6 % (47-70); POSITIVE DIFFERENTIAL YES; Platelet Count 414 K/mm3 (150-450); RBC Distribution Width CV 16.8 % (11.6-14.6); RBC Distribution Width SD 51.8 fl (35.1-43.9); Red Blood Count 4.48 M/mm3 (4.2-5.4); White Blood Count 11.5 K/mm3 (4.4-11.0)
[2022-06-17 10:58] LABS: Differential Indicated SCAN CRITERIA MET
[2022-06-17 11:06] LABS: Anion Gap 6 (5-15); BUN 24 mg/dL (7-18); BUN/Creat Ratio 30.3 RATIO (10-20); Calcium,Total 9.1 mg/dL (8.5-10.1); Chloride 101 mmol/L (98-107); Creatinine, Serum 0.79 mg/dL (0.55-1.02); EST Glomerular Filtration Rate 77 mL/min (>60); Est Glom Filt Rate - Afr Amer 94 mL/min (>60); Estimated Creatinine Clearance 48.42 ml/min; Glucose 125 mg/dL (74-106); Sodium Level 135 mmol/L (136-145)
[2022-06-17 11:17] LABS: Differential Comment SCANNED
--- NOTE | 2022-06-17 12:02 | CT_ITS ---
EXAM: CT HEAD WITHOUT INTRAVENOUS CONTRAST CLINICAL INDICATION: Trauma TECHNIQUE: Multiple axial images were obtained of the head without intravenous contrast. This CT exam was performed using one or more of the following dose reduction techniques: automated exposure control, adjustment of the mA and/or kV according to patient size, and/or use of iterative reconstruction technique. This report was created using [employer] report generation technology. COMPARISON: None. FINDINGS: BRAIN AND EXTRA-AXIAL SPACES: Areas of diminished white matter density noted within both cerebral hemispheres suggestive of chronic microvascular change. No intra- or extra-axial hemorrhage. No evidence of acute infarct. No intracranial mass or mass effect. There is preservation of the lebron/white matter interface. Posterior fossa structures are unremarkable. Ventricles are appropriate for age. No hydrocephalus. Basal cisterns are patent. BONES/JOINTS: Normal. No discrete lytic or blastic abnormalities. SINUSES: Partial opacification of the paranasal and right mastoid sinuses. MASTOID AIR CELLS: See above. ORBITS: Visualized globes, extraocular muscles, optic nerves and retrobulbar fat appear unremarkable. CT/Brain/Head without Contrast IMPRESSION: 1. No acute intracranial abnormality. 2. Chronic microvascular changes. 3. Paranasal and right mastoid sinusitis Electronically Signed: Liam Duggan MD at 12:15 EDT ,
--- NOTE | 2022-06-17 12:53 | EDS_ITS ---
HPI History of Present Illness Chief Complaint: Syncope Informant: patient Narrative Narrative: 67-year-old female appearing older than stated age presenting to the emergency room following syncopal episode. Patient states that today she was preparing in her normal fashion and was scheduled to have a thoracentesis for recurrent pleural effusion this afternoon. She states that she had a syncopal episode at the table and struck her head on the table. She denies any current bleeding. She states that she has noticed that her dyspnea is worse than normal. She is still been able to lay flat however but would prefer not to. She does not know why she has pleural effusions but from what she describes it sounds like she underwent pleurodesis on the right side. [facility] Medical History (Updated 06/17/22 @ 16:[address] 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 Bronchiectasis COPD (chronic obstructive pulmonary disease) Elevated transaminase level Former smoker GERD (gastroesophageal reflux disease) History of non-ST elevation myocardial infarction (NSTEMI) (06/18/20) Hypothyroidism Iron deficiency anemia Pericardial effusion Restrictive pericarditis Secondary pulmonary arterial hypertension Home Medications albuterol sulfate 90 mcg/actuation aerosol inhaler 2 puff inhalation Q4H PRN PRN Bronchodialation 09/07/16 [History Last Taken 06/17/22] multivitamin 1 ea PO DAILY supplement 09/07/16 [History Last Taken 09/06/16] omeprazole 20 mg capsule,delayed release 20 mg PO DAILY GERD 09/07/16 [History Last Taken 06/17/22] lorazepam 0.5 mg tablet 0.5 mg PO BID PRN PRN Anxiety 09/26/16 [History Last Taken 06/17/22] ascorbic acid (vitamin C) 500 mg chewable tablet 500 mg PO BIDCM supplement ##0 06/20/20 [Rx Last Taken 06/16/22] budesonide 180 mcg/actuation breath activated powder inhaler 1 inh inhalation BID COPD 02/11/21 [History Last Taken 06/17/22] montelukast 10 mg tablet 10 mg PO DAILY 02/11/21 [History Last Taken 06/16/22] vitamin B complex (B Complex-Vitamin B12 tablet) 1 tab PO DAILY 02/11/21 [History Last Taken 06/17/22] aspirin 81 mg tablet,delayed release 81 mg PO DAILY #90 tabs 08/20/21 [Rx Last Taken 06/16/22] atorvastatin 40 mg tablet 40 mg PO QHS #90 tabs 08/20/21 [Rx Last Taken 06/16/22] bumetanide 1 mg tablet 1 mg PO DAILY water pill #90 tabs 08/20/21 [Rx Last Taken 06/17/22] clopidogrel 75 mg tablet 75 mg PO DAILY #90 tabs 08/21/21 [Rx Last Taken 06/17/22] colchicine 0.6 mg tablet 0.6 mg PO DAILY gout #30 tabs 01/14/22 [Rx Last Taken 06/16/22] levothyroxine 88 mcg tablet 88 mcg PO MOTUWETHFRSA 01/20/22 [History Last Taken 06/17/22] metoprolol tartrate 25 mg tablet 12.5 mg PO BID #120 tabs 01/20/22 [Rx Last Taken 06/17/22] potassium chloride 10 mEq tablet,extended release 30 meq PO BID 01/20/22 [History Last Taken 06/17/22] spironolactone 25 mg tablet 25 mg PO DAILY #90 tabs 03/23/22 [Rx Last Taken 06/16/22] guaifenesin 1,200 mg tablet, extended release 12 hr (Mucinex) 1,200 mg PO BID CONGESTION 06/17/22 [History Last Taken 06/17/22] levothyroxine 88 mcg tablet 132 mcg PO GEORGES 06/17/22 [History Last Taken 06/14/22] Allergy/AdvReac Type Severity Reaction Status Date / Time amoxicillin [From Augmentin] Allergy Rash Verified 05/29/22 09:07 clavulanic acid Allergy Rash Verified 05/29/22 09:07 [From Augmentin] doxycycline Allergy Rash Verified 05/29/22 09:07 tiotropium AdvReac Unknown PT UNSURE Verified 05/29/22 09:07 OF REACTION budesonide [From Symbicort] AdvReac Other Verified 05/29/22 09:07 bumetanide AdvReac PT UNSURE Verified 05/29/22 09:07 OF REACTION cefdinir AdvReac Bleeding Verified 05/29/22 09:07 clindamycin AdvReac Abd Verified 05/29/22 09:07 cramps/diarrhea fluticasone [From Flonase] AdvReac HEADACHES Verified 05/29/22 09:07 formoterol [From Symbicort] AdvReac HIGH Verified 05/29/22 09:07 FEELING furosemide AdvReac NEEDS Verified 05/29/22 09:07 FOLLOW-UP spironolactone AdvReac NEEDS Verified 05/29/22 09:07 FOLLOW-UP umeclidinium AdvReac Shortness Verified 05/29/22 09:07 of breath Family History Mother Colon cancer Father Heart disease Surgical History (Updated 06/17/22 @ 15:[address] Bertin Frost DO) History of coronary artery stent placement (06/18/20) History of right and left heart catheterization (05/01/20) History of thoracentesis (11/06/20) Social History (Updated 06/17/22 @ 12:[address] Bertin Frost DO) Smoking Status: Never smoker substance use type: does not use ROS ROS ED Constitutional Constitutional ED: Denies chills or weight loss Eyes Eyes: Denies change in vision or diplopia ENT ENT ED: Denies ear pain, rhinorrhea or sore throat Cardiovascular Cardiovascular: Reports other Details: Syncope ; Denies chest pain, orthopnea, palpitations or racing heartbeat Respiratory/Chest Respiratory/Chest: Reports cough, dyspnea and dyspnea on exertion; Denies orthopnea Gastrointestinal Gastrointestinal: Denies abdominal pain, diarrhea, nausea or vomiting Genitourinary Genitourinary ED: Denies dysuria, hematuria or urinary frequency Musculoskeletal Musculoskeletal: Denies arthralgias or myalgias Integumentary Denies abscess or rash Neurologic Neurologic: Denies headache(s) or weakness Psychiatric Psychiatric: Denies anxiety, depression, suicidal ideation or suicidal thoughts Endocrine Endocrinology: Denies polydipsia, polyphagia or polyuria Allergic/Immunologic Allergic/Immunologic ED: Denies mouth swelling, tongue swelling or urticaria EXAM Physical Exam Const Vital Signs: 06/17/22 10:27 06/17/22 10:34 06/17/22 10:36 Temperature 98.1 F 98.1 F Temperature Source Oral Temporal Pulse Rate 92 96 Respiratory Rate 18 20 H Respiratory Pattern Normal Blood Pressure 133/77 H 133/77 H Blood Pressure Mean 95 95 Pulse Ox 80 97 Oxygen Delivery Method Room Air Nasal Cannula Oxygen Flow Rate (L/min) 2 06/17/22 13:00 06/17/22 13:07 06/17/22 15:40 Temperature 97.8 F 98.6 F Temperature Source Temporal Pulse Rate 88 78 Respiratory Rate 16 16 20 H Respiratory Pattern Normal Blood Pressure 145/72 H 142/72 H Blood Pressure Mean 96 Pulse Ox 94 93 Oxygen Delivery Method Nasal Cannula Oxygen Flow Rate (L/min) 2 06/17/22 16:02 06/17/22 16:11 Temperature 98.9 F Temperature Source Temporal Pulse Rate 99 Respiratory Rate 20 H Respiratory Pattern Blood Pressure 122/71 H Blood Pressure Mean 88 Pulse Ox 97 98 Oxygen Delivery Method Nasal Cannula Nasal Cannula Oxygen Flow Rate (L/min) 2 2 Positive well nourished and well developed General Appearance ED: well developed HEENT Reports normocephalic, head/scalp atraumatic and moist mucous membranes Eyes PERRL and EOMs intact bilaterally Neck no lymphadenopathy, supple and no JVD Resp normal respiratory effort Auscultation: diminished lung sounds Cardio regular rate, regular rhythm and no murmurs GI normal to inspection, nondistended, normoactive bowel sounds and non-tender Palpation: soft Back/Spine no CVA tenderness and normal ROM Extremity normal to inspection General Extremety ED: Negative for edema General Extremity: Negative for edema Neuro oriented x3 and CN's II-XII intact bilaterally Sensorium / Orientation: alert Motor Exam: strength 5/5 throughout Psych mental status grossly normal Mood & Affect: Negative for depressed or tearful Skin no rashes or lesions noted and no wounds MDM MDM MDM Narrative Medical decision making narrative: Basic blood work was negative. White count 11.5. BMP with a glucose of 125. Chest x-ray shows bilateral pleural effusions. CT of the brain was negative. Patient was discussed with radiology and they are able to do her thoracentesis earlier than scheduled. She does not have home oxygen. After the thoracentesis she was noted to be hypoxic on room air. She is brought back to the emergency room. She states that she has not felt this short of breath in the past. She does not know why she would be so short of breath. She has had an increasing cough but no change in sputum. Her lungs are not particularly wheezy. I suspect that she does not have much reserve. CTA of the chest was obtained. This demonstrated a small pneumothorax. I do not think the patient needs a pigtail catheter or chest tube. I spoke with Dr. Mcguire from pulmonology as well as Dr. Bunn from medicine. Plan is admission. Lab Data Labs: Laboratory Results - last 24 hr 06/17/22 06/17/22 10:38 10:38 WBC 11.5 H RBC 4.48 Hgb 11.5 L Hct 37.6 MCV 83.9 MCH 25.7 L MCHC 30.6 L RDW Std Deviation 51.8 H RDW Coeff of Angie 16.8 H Plt Count 414 MPV 11.0 Immature Gran % (Auto) 0.400 Neut % (Auto) 88.6 H Lymph % (Auto) 2.4 L Tucker % (Auto) 7.7 Eos % (Auto) 0.6 Baso % (Auto) 0.3 Absolute Neuts (auto) 10.2 H Absolute Lymphs (auto) 0.28 L Nucleated RBC % 0 Differential Comment SCANNED Sodium 135 L Potassium 4.0 Chloride 101 Carbon Dioxide 28.0 Anion Gap 6 BUN 24 H Creatinine 0.79 Estim Creat Clear Calc 48.42 Est GFR (MDRD) Af Amer 94 Est GFR (MDRD) Non-Af 77 BUN/Creatinine Ratio 30.3 H Glucose 125 H Calcium 9.1 Radiography Diagnostic Testing: Clinical Impression(s) from Imaging Studies Chest X-Ray 06/17/22 10:50 IMPRESSION: Bilateral pleural effusions with compression atelectasis of the lower lobe/pneumonia. Electronically Signed: Liam Duggan MD at 11:09 EDT , Brain CT 06/17/22 12:02 IMPRESSION: 1. No acute intracranial abnormality. 2. Chronic microvascular changes. 3. Paranasal and right mastoid sinusitis Electronically Signed: Liam Duggan MD at 12:15 EDT , Chest CTA 06/17/22 14:58 IMPRESSION: 1. No evidence of acute pulmonary embolism. 2. Bilateral pleural effusions with bibasilar right middle lobe atelectasis. 3. Pulmonary emphysema. 4. 20% left pneumothorax without evidence of tension. Electronically Signed: Liam Duggan MD at 15:50 EDT , ADDENDUM: 06/17/22 1614 IMPRESSION: 1. No evidence of acute pulmonary embolism. 2. Bilateral pleural effusions with bibasilar right middle lobe atelectasis. 3. Pulmonary emphysema. 4. 20% left pneumothorax without evidence of tension. N.B. : The above Results were Read Back by Liam Duggan MD to Dr. Prabha MD, and understanding confirmed on 06/17/2022 16:07:41 (ET). Electronically Signed: Liam Duggan MD at 15:50 EDT , Discharge Plan Dx/Rx/DC Orders Clinical Impression: Bilateral pleural effusion, Syncope and collapse, Abrasion of forehead, Secondary pulmonary arterial hypertension, History of coronary artery stent placement, Atherosclerotic heart disease of nondalton coronary artery without angina pectoris, Pneumothorax Disposition Disposition: Acute Care Hospital [facility] Discharge Date/Time: 06/17/22 13:08
--- NOTE | 2022-06-17 14:17 | ED.RN ---
PT RETURNS TO ED FROM RADIOLOGY AFTER THORACENTESIS. PT HAD 550ML DRAINED FROM LEFT SIDE PER WINDOW [employer]AMER SREEDHAR. PT VS BP 107/70, HR 101, RESPIRES 22, AND PT SATTING 98% ON 2LNC. PT REPORTS 09/01 TO LEFT SIDE.
--- NOTE | 2022-06-17 14:58 | CT_ITS ---
We are attempting to reach an attending provider to discuss findings. An addendum with communication details will be sent when the communication is complete. EXAM: CT ANGIOGRAPHY CHEST WITHOUT AND WITH INTRAVENOUS CONTRAST CLINICAL INDICATION: dyspnea TECHNIQUE: Helically acquired angiography images were obtained of the chest without and with intravenous contrast. This CT exam was performed using one or more of the following dose reduction techniques: automated exposure control, adjustment of the mA and/or kV according to patient size, and/or use of iterative reconstruction technique. This report was created using [employer] report generation technology. MIP reconstructed images were created and reviewed. CONTRAST: IV 75mL [id number] COMPARISON: Chest radiograph 06/17/2022 FINDINGS: PULMONARY ARTERIES: Normal. Normal in caliber. No evidence of pulmonary embolism. AORTA: Normal. Normal in caliber. No evidence of dissection. GREAT VESSELS OF AORTIC ARCH: Normal. Normal in caliber. No evidence of dissection. INFERIOR VENA CAVA: Contrast refluxes into distended inferior vena cava and hepatic veins indicative of increased right-sided heart pressure. LUNGS AND PLEURAL SPACES: Bilateral pleural effusions noted with compression atelectasis of the lower lobes and right middle lobe. Prominent centrilobular emphysematous changes of the upper lobes. Less than 20% left-sided pneumothorax. No mass. HEART: Small pericardial effusion. Mild coronary artery calcification. MEDIASTINUM: Normal. No mediastinal or hilar adenopathy. Esophagus is unremarkable. No hiatal hernia. THYROID: Normal. No thyroid lesions. BONES/JOINTS: Normal. No suspicious lytic or blastic abnormality. CT/CTA Chest W/WO Contrast IMPRESSION: 1. No evidence of acute pulmonary embolism. 2. Bilateral pleural effusions with bibasilar right middle lobe atelectasis. 3. Pulmonary emphysema. 4. 20% left pneumothorax without evidence of tension. Electronically Signed: Liam Duggan MD at 15:50 EDT ,
[2022-06-17] MEDS: Ipratropium/Albuterol Sulfate 3 ML AMPUL.NEB INHALATION ×2 (15:40→19:54)
[2022-06-17] MEDS: MethylPREDNISolone 125 MG/2 ML Vial IV (15:51)
--- NOTE | 2022-06-17 16:26 | NURSING ---
MED SURG KOTSONIS HYPOXIA WITH PNEUMOTHORAX
--- NOTE | 2022-06-17 16:27 | HP.PCM.HOS_ITS ---
HPI - General General Date of Admission: 06/17/22 HPI Narrative LOUISE ROSALES, is a 67 F who presents to the hospital after syncopal episode. She states that it occurred when she was having a coughing fit, she is note that she is been coughing more in the last several days. No fevers or sick contacts at home. She does have a history of pleural effusions on the left and she is had previous thoracenteses, she states that she has been worked up as an outpatient for these and states that she does not know why she has a thoracocentesis. On presentation to the hospital she was hypoxic requiring oxygen and she proceeded with her thoracentesis and the plan was for discharge after the procedure however she needed more oxygen after the procedure and a CTA of her chest when she returned to the ER from radiology demonstrated a 20% left pneumothorax. [facility] Medical History (Updated 06/17/22 @ 16:[address] Bertin Frost, ) Angioedema Atherosclerotic heart disease of [place] coronary artery without angina pectoris Bronchiectasis COPD (chronic obstructive pulmonary disease) Elevated transaminase level Former smoker GERD (gastroesophageal reflux disease) History of non-ST elevation myocardial infarction (NSTEMI) (06/18/20) Hypothyroidism Iron deficiency anemia Pericardial effusion Restrictive pericarditis Secondary pulmonary arterial hypertension Home Medications albuterol sulfate 90 mcg/actuation aerosol inhaler 2 puff inhalation Q4H PRN PRN Bronchodialation 09/07/16 [History Last Taken 06/17/22] multivitamin 1 ea PO DAILY supplement 09/07/16 [History Last Taken 09/06/16] omeprazole 20 mg capsule,delayed release 20 mg PO DAILY GERD 09/07/16 [History Last Taken 06/17/22] lorazepam 0.5 mg tablet 0.5 mg PO BID PRN PRN Anxiety 09/26/16 [History Last Taken 06/17/22] ascorbic acid (vitamin C) 500 mg chewable tablet 500 mg PO BIDCM supplement ##0 06/20/20 [Rx Last Taken 06/16/22] budesonide 180 mcg/actuation breath activated powder inhaler 1 inh inhalation BID COPD 02/11/21 [History Last Taken 06/17/22] montelukast 10 mg tablet 10 mg PO DAILY 02/11/21 [History Last Taken 06/16/22] vitamin B complex (B Complex-Vitamin B12 tablet) 1 tab PO DAILY 02/11/21 [History Last Taken 06/17/22] aspirin 81 mg tablet,delayed release 81 mg PO DAILY #90 tabs 08/20/21 [Rx Last Taken 06/16/22] atorvastatin 40 mg tablet 40 mg PO QHS #90 tabs 08/20/21 [Rx Last Taken 06/16/22] bumetanide 1 mg tablet 1 mg PO DAILY water pill #90 tabs 08/20/21 [Rx Last Taken 06/17/22] clopidogrel 75 mg tablet 75 mg PO DAILY #90 tabs 08/21/21 [Rx Last Taken 06/17/22] colchicine 0.6 mg tablet 0.6 mg PO DAILY gout #30 tabs 01/14/22 [Rx Last Taken 06/16/22] levothyroxine 88 mcg tablet 88 mcg PO MOTUWETHFRSA 01/20/22 [History Last Taken 06/17/22] metoprolol tartrate 25 mg tablet 12.5 mg PO BID #120 tabs 01/20/22 [Rx Last Taken 06/17/22] potassium chloride 10 mEq tablet,extended release 30 meq PO BID 01/20/22 [History Last Taken 06/17/22] spironolactone 25 mg tablet 25 mg PO DAILY #90 tabs 03/23/22 [Rx Last Taken 06/16/22] guaifenesin 1,200 mg tablet, extended release 12 hr (Mucinex) 1,200 mg PO BID CONGESTION 06/17/22 [History Last Taken 06/17/22] levothyroxine 88 mcg tablet 132 mcg PO GEORGES 06/17/22 [History Last Taken 06/14/22] Allergy/AdvReac Type Severity Reaction Status Date / Time amoxicillin [From Augmentin] Allergy Rash Verified 05/29/22 09:07 clavulanic acid Allergy Rash Verified 05/29/22 09:07 [From Augmentin] doxycycline Allergy Rash Verified 05/29/22 09:07 tiotropium AdvReac Unknown PT UNSURE Verified 05/29/22 09:07 OF REACTION budesonide [From Symbicort] AdvReac Other Verified 05/29/22 09:07 bumetanide AdvReac PT UNSURE Verified 05/29/22 09:07 OF REACTION cefdinir AdvReac Bleeding Verified 05/29/22 09:07 clindamycin AdvReac Abd Verified 05/29/22 09:07 cramps/diarrhea fluticasone [From Flonase] AdvReac HEADACHES Verified 05/29/22 09:07 formoterol [From Symbicort] AdvReac HIGH Verified 05/29/22 09:07 FEELING furosemide AdvReac NEEDS Verified 05/29/22 09:07 FOLLOW-UP spironolactone AdvReac NEEDS Verified 05/29/22 09:07 FOLLOW-UP umeclidinium AdvReac Shortness Verified 05/29/22 09:07 of breath Family History Mother Colon cancer Father Heart disease Surgical History (Updated 06/17/22 @ 15:[address] Bertin Frost DO) History of coronary artery stent placement (06/18/20) History of right and left heart catheterization (05/01/20) History of thoracentesis (11/06/20) Social History (Updated 06/17/22 @ 12:[address] Bertin Frost DO) Smoking Status: Never smoker substance use type: does not use ROS Constitutional Constitutional: Denies chills, fatigue, fever(s) or malaise Eyes Eyes: Denies blurry vision ENT HEENT: Denies headache(s) or nasal discharge Cardiovascular Cardiovascular: Reports syncope; Denies chest pain or dyspnea on exertion Respiratory/Chest Respiratory/Chest: Reports cough and shortness of breath at rest; Denies shortness of breath with exertion Gastrointestinal Gastrointestinal: Denies constipation, diarrhea, nausea or vomiting Genitourinary Genitourinary: Denies dysuria Neurologic Neurologic: Denies focal weakness, numbness or tremor(s) Psychiatric Psychiatric: Denies anxiety or depression Vital Signs Vital Signs Vital Signs: 06/17/22 10:27 06/17/22 10:34 06/17/22 10:36 Temperature 98.1 F 98.1 F Temperature Source Oral Temporal Pulse Rate 92 96 Respiratory Rate 18 20 H Respiratory Pattern Normal Blood Pressure 133/77 H 133/77 H Blood Pressure Mean 95 95 Pulse Ox 80 97 Oxygen Delivery Method Room Air Nasal Cannula Oxygen Flow Rate (L/min) 2 06/17/22 13:00 06/17/22 13:07 06/17/22 15:40 Temperature 97.8 F 98.6 F Temperature Source Temporal Pulse Rate 88 78 Respiratory Rate 16 16 20 H Respiratory Pattern Normal Blood Pressure 145/72 H 142/72 H Blood Pressure Mean 96 Pulse Ox 94 93 Oxygen Delivery Method Nasal Cannula Oxygen Flow Rate (L/min) 2 06/17/22 16:02 06/17/22 16:11 Temperature 98.9 F Temperature Source Temporal Pulse Rate 99 Respiratory Rate 20 H Respiratory Pattern Blood Pressure 122/71 H Blood Pressure Mean 88 Pulse Ox 97 98 Oxygen Delivery Method Nasal Cannula Nasal Cannula Oxygen Flow Rate (L/min) 2 2 Weight Weight: 95 lb 3.835 oz Body Mass Index (BMI) 18.6 Physical Exam Narrative General: Alert, Oriented x3, Cooperative, No apparent distress HEENT: Atraumatic, PERRLA, EOMI, Normocephalic, respiratory cachexia Oral: Moist Mucosa Neck: Supple, No JVD Lungs: Diminished left greater than right, Normal air movement, No rhonchi, No w heeze, No rales Cardiovascular: Regular rate, Regular Rhythm, Normal S1, Normal S2, No murmurs Abdomen: Soft, Non Tender, Non-Distended, No Hepato-splenomegaly Extremities: No edema, Capillary Refill Less than 3 Seconds Skin: No rashes, No breakdown Musculoskeletal: No Tenderness to Palpation of Joints or Extremities Neurological: Cranial nerves II-XII grossly intact, Motor Exam 5/5 strength throughout, Sensory exam intact to light touch and pain Psych/Mental Status: Normal Affect, Appropriate Results Lab / Micro Data Result Diagrams: 06/17/22 10:38 06/17/22 10:38 Labs: Laboratory Results - last 24 hr 06/17/22 10:38: WBC 11.5 H, RBC 4.48, Hgb 11.5 L, Hct 37.6, MCV 83.9, MCH 25.7 L , MCHC 30.6 L, RDW Std Deviation 51.8 H, RDW Coeff of Angie 16.8 H, Plt Count 414, MPV 11.0, Immature Gran % (Auto) 0.400, Neut % (Auto) 88.6 H, Lymph % (Auto) 2.4 L, [place] % (Auto) 7.7, Eos % (Auto) 0.6, Baso % (Auto) 0.3, Absolute Neuts (auto) 10.2 H, Absolute Lymphs (auto) 0.28 L, Nucleated RBC % 0, Differential Comment SCANNED 06/17/22 10:38: Sodium 135 L, Potassium 4.0, Chloride 101, Carbon Dioxide 28.0, Anion Gap 6, BUN 24 H, Creatinine 0.79, Estim Creat Clear Calc 48.42, Est GFR (MDRD) Af Amer 94, Est GFR (MDRD) Non-Af 77, BUN/Creatinine Ratio 30.3 H, Glucose 125 H, Calcium 9.1 Radiology Impression Chest X-Ray 06/17/22 10:50 IMPRESSION: Bilateral pleural effusions with compression atelectasis of the lower lobe/pneumonia. Electronically Signed: Liam Duggan MD at 11:09 EDT , Brain CT 06/17/22 12:02 IMPRESSION: 1. No acute intracranial abnormality. 2. Chronic microvascular changes. 3. Paranasal and right mastoid sinusitis Electronically Signed: Liam Duggan MD at 12:15 EDT , Chest CTA 06/17/22 14:58 IMPRESSION: 1. No evidence of acute pulmonary embolism. 2. Bilateral pleural effusions with bibasilar right middle lobe atelectasis. 3. Pulmonary emphysema. 4. 20% left pneumothorax without evidence of tension. Electronically Signed: Liam Duggan MD at 15:50 EDT , ADDENDUM: 06/17/22 1614 IMPRESSION: 1. No evidence of acute pulmonary embolism. 2. Bilateral pleural effusions with bibasilar right middle lobe atelectasis. 3. Pulmonary emphysema. 4. 20% left pneumothorax without evidence of tension. N.B. : The above Results were Read Back by Liam Duggan MD to Dr. Prabha MD, and understanding confirmed on 06/17/2022 16:07:41 (ET). Electronically Signed: Liam Duggan MD at 15:50 EDT , Assessment & Plan Assessment/Plan (1) Syncope and collapse: (2) Pneumothorax: PLAN: Plan 1. Vasovagal syncope due to coughing/acute hypoxic respiratory failure secondary to bronchitis as well as pleural effusion and 20% pneumothorax on the left in the setting of emphysema and possible COPD exacerbation ? We will continue to liters nasal cannula, she does not normally require oxygen at home. ? We will consult pulmonology can repeat chest x-ray in 4 hours per the recommendation we will also repeat chest x-ray in the morning ? We will start her on prednisone as well as breathing treatments ? We will place her on Levaquin and obtain a sputum culture ? Continue with her montelukast ? Because this thoracentesis was an outpatient order there was no lab work done on the fluid 2. HTN/HLD/CAD status post stents ? Blood pressures are stable, can resume her home blood pressure medication ? We will hold her aspirin and a statin secondary to a possible chest tube placement if her pneumothorax gets worse, her last stent was placed in 2019 ? Continue with Lipitor ? She does have stage I diastolic dysfunction on echo was in 2020 with a normal EF ? Continue with her Bumex as well as her Aldactone 3. Hypothyroidism ? Stable ? Continue with thyroid 4. GERD ? Stable ? Continue with PPI neck line 5. Gout ? Stable ? Continue with colchicine DVT: SCDs Charges/Coding Visit Charges Inpatient E&M: 83353 Init Hosp L3
[2022-06-17] MEDS: levoFLOXacin IV 500 MG/100 ML BAG 100 MG IV (19:44)
--- NOTE | 2022-06-17 20:00 | RAD_ITS ---
STUDY: X-RAY CHEST REASON FOR EXAM: Female, 67 years old. Left pneumothorax TECHNIQUE: XR Chest 1 View COMPARISON: Study done earlier today. FINDINGS: There is atherosclerotic calcification of the aortic arch with tortuosity. There are diffuse degenerative changes of the visualized thoracic spine. There is degenerative osteoarthritis of the bilateral shoulders. There are bilateral pleural effusions. There are bilateral infiltrates. Left pneumothorax. Normal size heart. Normal mediastinum and agapito. Normal visualized pulmonary arteries. There is no demonstrated abnormality of the visualized soft tissue structures of the upper abdomen. RAD/Chest 1 View (Portable) IMPRESSION: Stable left pneumothorax. Electronically Signed: Gee Cloud MD at 20:35 EDT ,
[2022-06-17] MEDS: Metoprolol Tartrate 25 MG Tablet 12.5 MG PO (21:48)
[2022-06-17] MEDS: 0.9% Saline Lock 10 ML Syringe IV (21:48)
[2022-06-17] MEDS: guaiFENesin 1,200 MG Tablet 1200 MG PO (21:48)
[2022-06-17] MEDS: Atorvastatin Calcium 40 MG Tablet PO (21:48)
[2022-06-17] MEDS: LORazepam 0.5 MG Tablet PO (21:48)
[2022-06-18] VITALS (11 sets, daily range): BP systolic 105–119; BP diastolic 72–87; PULSE 88–110; RESP 18–20; TEMP 36.4–36.9; O2SAT 92–100
[2022-06-18] MEDS: Acetaminophen 325 MG Tablet 650 MG PO (04:01)
[2022-06-18] MEDS: Levothyroxine 88 MCG Tablet PO (04:01)
--- NOTE | 2022-06-18 05:55 | RAD_ITS ---
INDICATION: Left pneumothorax EXAMINATION/TECHNIQUE: X-RAY - AP view of chest COMPARISON: Chest x-ray and chest CT from one day prior. FINDINGS: LINES/DEVICES: None. LUNGS: Emphysematous upper lungs. Persistent bibasilar opacification with bilateral pleural effusions. Sutures within right lower lung. Stable small left pneumothorax. MEDIASTINUM AND CARDIOVASCULAR STRUCTURES: Heart size within normal limits for imaging technique. Atherosclerotic calcifications along aorta. BONES AND SOFT TISSUES: Skeletal degenerative changes. RAD/Chest 1 View (Portable) IMPRESSION: COPD with persistent bibasilar opacification, bilateral pleural effusions and small left pneumothorax. Electronically Signed: Atul Davila MD at 7:36 EDT ,
[2022-06-18 06:57] LABS: Absolute Lymphocyte Count 0.24 X10^3/uL (0.83-4.51); Absolute Neutrophil Count 4.4 X10^3/uL (2.0-7.7); Basophil# 0.01 X10^3/uL; Basophil% 0.2 % (0-1); Hematocrit 32.9 % (37-47); Hemoglobin 10.3 g/dL (12.0-15.0); Lymphocyte # 0.24 X10^3/ul (0.83-4.51); Lymphocyte % 4.9 % (19-41); Mean Corp Hgb Conc 31.3 g/dL (32-36); Mean Corpuscular Hgb 25.7 pg (27.0-32.0); Mean Platelet Vol. 10.9 fl (6.2-12.0); Monocyte# 0.23 X10^3/uL; Monocyte% 4.7 % (0-10); NRBC Flagged by Analyzer 0 % (0-5); Neutrophil # 4.38 X10^3/uL (2.7-7.7); Neutrophil % 89.6 % (47-70); POSITIVE DIFFERENTIAL YES; Platelet Count 399 K/mm3 (150-450); RBC Distribution Width CV 16.6 % (11.6-14.6); RBC Distribution Width SD 50.2 fl (35.1-43.9); Red Blood Count 4.01 M/mm3 (4.2-5.4); White Blood Count 4.9 K/mm3 (4.4-11.0)
[2022-06-18 07:04] LABS: Differential Indicated SCAN CRITERIA MET
[2022-06-18] MEDS: Ipratropium/Albuterol Sulfate 3 ML AMPUL.NEB INHALATION ×4 (07:06→19:20)
[2022-06-18 07:21] LABS: Anion Gap 6 (5-15); BUN 19 mg/dL (7-18); BUN/Creat Ratio 26.6 RATIO (10-20); Calcium,Total 8.7 mg/dL (8.5-10.1); Chloride 100 mmol/L (98-107); Creatinine, Serum 0.71 mg/dL (0.55-1.02); EST Glomerular Filtration Rate 87 mL/min (>60); Est Glom Filt Rate - Afr Amer 106 mL/min (>60); Estimated Creatinine Clearance 48.65 ml/min; Glucose 161 mg/dL (74-106); Potassium 4.1 mmol/L (3.5-5.1); Sodium Level 133 mmol/L (136-145)
[2022-06-18] MEDS: predniSONE 20 MG Tablet 40 MG PO (08:56)
[2022-06-18] MEDS: guaiFENesin 1,200 MG Tablet 1200 MG PO ×2 (08:56→20:55)
[2022-06-18] MEDS: Vitamin B Comp W-C Capsule 1 CAP PO (08:56)
[2022-06-18] MEDS: Potassium Chloride Oral Tablet 10 MEQ 30 MEQ PO ×2 (08:56→17:20)
[2022-06-18] MEDS: Spironolactone 25 MG Tablet PO (08:56)
[2022-06-18] MEDS: Colchicine 0.6 MG TABLET PO (08:56)
[2022-06-18] MEDS: Metoprolol Tartrate 25 MG Tablet 12.5 MG PO ×2 (08:57→20:56)
[2022-06-18] MEDS: Bumetanide 2 MG Tablet 1 MG PO (08:57)
[2022-06-18] MEDS: Pantoprazole Sodium 20 MG Tablet PO (08:57)
[2022-06-18] MEDS: 0.9% Saline Lock 10 ML Syringe IV (09:07)
[2022-06-18] MEDS: levoFLOXacin IV 500 MG/100 ML BAG 100 MG IV (09:07)
--- NOTE | 2022-06-18 09:40 | CON.PCM.CC_ITS ---
Assessment & Plan Assessment/Plan (1) Iatrogenic pneumothorax: (2) Restrictive pericarditis: (3) Syncope and collapse: PLAN: Plan RECOMMENDATIONS: 1. Continue oxygen at 4 to 5 L/min to help with pneumothorax resolution 2. Add nasal saline 3. Obtain records from [facility] to establish baseline 4. No chest tube at this time 5. Repeat chest x-ray in a.m. 6. Walking oximetry prior to discharge IMPRESSIONS: 1. Acute hypoxic respiratory insufficiency secondary to a 20% iatrogenic pneumothorax in the setting of reported COPD/bronchiectasis Patient reportedly does not require supplemental oxygen at baseline, but did saturate 80% on presentation. Clinical suspicion for multifactorial etiology with underlying lung disease, history of congestive heart failure and pneumothorax leading to current condition. X-ray shows no worsening of pneumothorax. Will use hyper oxygen therapy to attempt to resolve pneumothorax quickly. Patient will need a walking oximetry prior to discharge. Patient is requesting follow-up in our office following this procedure. Cannot exclude the need for eventual pleurodesis on the left. Clinical suspicion is for transudate pattern as labs were not ordered on repeat thoracentesis, but this needs to be confirmed. Patient does not have a significant leukocytosis, so likely okay to discontinue Levaquin once cultures are negative. 2. Hypertension/hyperlipidemia/CAD/chronic diastolic CHF Patient typically followed by the heart group. Okay to continue with diuretics at this time. Patient is not showing any stigmata of acute heart failure from my perspective. Defer to hospitalist on involving cardiology, but I believe the patient is doing okay from my perspective. 3. Hypothyroidism/GERD/gout/advanced age/frailty Complicates care, management, recovery and prognosis. Okay to continue with baseline medications. We will need to watch renal function closely given diuretic therapy. Glucose is slightly elevated today, but we will hold on any basal insulin at this time HPI Consult Data Date of Consult: 06/18/22 HPI Narrative Reason for Consultation: Pneumothorax HPI Narrative: LOUISE ROSALES is a 67 F, with past medical history listed below, who presents to [facility] on 06/17/2022 secondary to a syncopal episode. Patient reportedly had a thoracentesis earlier in the day and then had a syncopal episode following. Patient did strike her head, but denied any bleeding. Patient states that her shortness of breath had progressed and she was having difficulty lying flat. Patient does have a history of bilateral pleural effusions but underwent a pleurodesis on the right side previously, so was only getting thoracentesis on the left. Patient states that this is the quickest she is required a procedure. In the ER, patient was afebrile, but tachypneic at 20 breaths/min. Patient was placed on supplemental oxygen after being found to have a saturation of 80% on room air. Patient does not wear supplemental oxygen at baseline. Laboratory data showed a white blood cell count of 11.5, hemoglobin of 11.5 and platelets of 414. Chemistries were relatively unremarkable except for a bicarbonate of 28. Chest x-ray earlier in the day showed bilateral pleural effusions with lower lobe atelectasis. However, following thoracentesis a CTA of the chest showed no PE, but a 20% left pneumothorax with no evidence of tension. Given the minimal pneumothorax, patient was admitted without a chest tube. Since being admitted, patient still reports more shortness of breath than her baseline. Patient has also reported some nasal congestion that she attributes to the use of supplemental oxygen. Patient was clear that she does not feel worse than yesterday. Patient states that she has been seen by Dr. Tripathi in the past. Patient also follows with Dr. Pulido for cardiac issues. Patient states that she has been slow to establish with a new mid level clinician. Patient states that she is not aware of the underlying etiology of the recurrent pleural effusions. Patient states she did have a chest tube with pleurodesis on the right, but was fearful of getting this on the left because then where would the fluid go. Patient states she has been compliant with her diuretic therapy as prescribed by [facility]. Patient is not reporting any increase in salt intake. Patient does not report any chest trauma, but did have a syncopal event while at work. Patient states that she did have PFTs earlier in the year, but is unaware of the results. Review of systems otherwise negative from a constitutional, HEENT, respiratory, cardiovascular, GI, genitourinary, musculoskeletal, skin, neurologic, psychiat sharon and hematologic system unless stated above. [facility] Medical History Angioedema Anxiety Atherosclerotic heart disease of [place] coronary artery without angina pectoris Bronchiectasis COPD (chronic obstructive pulmonary disease) Elevated transaminase level Former smoker GERD (gastroesophageal reflux disease) History of non-ST elevation myocardial infarction (NSTEMI) (06/18/20) Hypothyroidism Iron deficiency anemia Pericardial effusion Restrictive pericarditis Secondary pulmonary arterial hypertension Home Medications albuterol sulfate 90 mcg/actuation aerosol inhaler 2 puff inhalation Q4H PRN PRN Bronchodialation 09/07/16 [History Last Taken 06/17/22] multivitamin 1 ea PO DAILY supplement 09/07/16 [History Last Taken 09/06/16] omeprazole 20 mg capsule,delayed release 20 mg PO DAILY GERD 09/07/16 [History Last Taken 06/17/22] lorazepam 0.5 mg tablet 0.5 mg PO BID PRN PRN Anxiety 09/26/16 [History Last Taken 06/17/22] ascorbic acid (vitamin C) 500 mg chewable tablet 500 mg PO BIDCM supplement ##0 06/20/20 [Rx Last Taken 06/16/22] budesonide 180 mcg/actuation breath activated powder inhaler 1 inh inhalation BID COPD 02/11/21 [History Last Taken 06/17/22] montelukast 10 mg tablet 10 mg PO DAILY 02/11/21 [History Last Taken 06/16/22] vitamin B complex (B Complex-Vitamin B12 tablet) 1 tab PO DAILY 02/11/21 [History Last Taken 06/17/22] aspirin 81 mg tablet,delayed release 81 mg PO DAILY #90 tabs 08/20/21 [Rx Last Taken 06/16/22] atorvastatin 40 mg tablet 40 mg PO QHS #90 tabs 08/20/21 [Rx Last Taken 06/16/22] bumetanide 1 mg tablet 1 mg PO DAILY water pill #90 tabs 08/20/21 [Rx Last Taken 06/17/22] clopidogrel 75 mg tablet 75 mg PO DAILY #90 tabs 08/21/21 [Rx Last Taken 06/17/22] colchicine 0.6 mg tablet 0.6 mg PO DAILY gout #30 tabs 01/14/22 [Rx Last Taken 06/16/22] levothyroxine 88 mcg tablet 88 mcg PO MOTUWETHFRSA 01/20/22 [History Last Taken 06/17/22] metoprolol tartrate 25 mg tablet 12.5 mg PO BID #120 tabs 01/20/22 [Rx Last Taken 06/17/22] potassium chloride 10 mEq tablet,extended release 30 meq PO BID 01/20/22 [History Last Taken 06/17/22] spironolactone 25 mg tablet 25 mg PO DAILY #90 tabs 03/23/22 [Rx Last Taken 06/16/22] acetaminophen 500 mg tablet 1,000 mg PO Q6H PRN Pain 06/17/22 [History Last Mendoza en 06/16/22] guaifenesin 1,200 mg tablet, extended release 12 hr (Mucinex) 1,200 mg PO BID CONGESTION 06/17/22 [History Last Taken 06/17/22] levothyroxine 88 mcg tablet 132 mcg PO GEORGES 06/17/22 [History Last Taken 06/14/22] Allergy/AdvReac Type Severity Reaction Status Date / Time amoxicillin [From Augmentin] Allergy Rash Verified 05/29/22 09:07 clavulanic acid Allergy Rash Verified 05/29/22 09:07 [From Augmentin] doxycycline Allergy Rash Verified 05/29/22 09:07 tiotropium AdvReac Unknown PT UNSURE Verified 05/29/22 09:07 OF REACTION budesonide [From Symbicort] AdvReac Other Verified 05/29/22 09:07 bumetanide AdvReac PT UNSURE Verified 05/29/22 09:07 OF REACTION cefdinir AdvReac Bleeding Verified 05/29/22 09:07 clindamycin AdvReac Abd Verified 05/29/22 09:07 cramps/diarrhea fluticasone [From Flonase] AdvReac HEADACHES Verified 05/29/22 09:07 formoterol [From Symbicort] AdvReac HIGH Verified 05/29/22 09:07 FEELING furosemide AdvReac NEEDS Verified 05/29/22 09:07 FOLLOW-UP spironolactone AdvReac NEEDS Verified 05/29/22 09:07 FOLLOW-UP umeclidinium AdvReac Shortness Verified 05/29/22 09:07 of breath Family History Mother Colon cancer Father Heart disease Surgical History History of coronary artery stent placement (06/18/20) History of right and left heart catheterization (05/01/20) History of thoracentesis (11/06/20) Social History Smoking Status: Former smoker substance use type: does not use ROS ROS Narrative See HPI Physical Exam Const oriented x3 and no apparent distress General Appearance: frail; Negative for in distress HEENT normocephalic and head/scalp atraumatic; Negative for moist oral mucous membranes Eyes PERRL, EOMs intact bilaterally and conjunctivae normal Neck full ROM Lymph Lymphatic: no lymphadenopathy noted Resp Effort and Inspection: tachypneic and prolonged expiratory phase; Negative for actively coughing or uses accessory muscles Auscultation: diminished lung sounds; Negative for rales, rhonchi or wheezes Cardio regular rhythm, S1 normal heart sound, S2 normal heart sound, no murmurs, no rub, no gallops and no JVD Rate: tachycardic GI normal to inspection, nondistended, normoactive bowel sounds and soft to pal pation Narrative: Mild CVA tenderness noted Extremity no clubbing, cyanosis or edema Skin no rashes or lesions noted Neuro oriented x3, CN's II-XII intact bilaterally and moves all extremities Psych cooperative and affect normal Lab / Micro Data Attestation: I reviewed the patient's lab results. Result Diagrams: 06/18/22 06:00 06/18/22 06:00 Labs: Laboratory Results - last 24 hr 06/17/22 10:38: WBC 11.5 H, RBC 4.48, Hgb 11.5 L, Hct 37.6, MCV 83.9, MCH 25.7 L , MCHC 30.6 L, RDW Std Deviation 51.8 H, RDW Coeff of Angie 16.8 H, Plt Count 414, MPV 11.0, Immature Gran % (Auto) 0.400, Neut % (Auto) 88.6 H, Lymph % (Auto) 2.4 L, [place] % (Auto) 7.7, Eos % (Auto) 0.6, Baso % (Auto) 0.3, Absolute Neuts (auto) 10.2 H, Absolute Lymphs (auto) 0.28 L, Nucleated RBC % 0, Differential Comment SCANNED 06/17/22 10:38: Sodium 135 L, Potassium 4.0, Chloride 101, Carbon Dioxide 28.0, Anion Gap 6, BUN 24 H, Creatinine 0.79, Estim Creat Clear Calc 48.42, Est GFR (MDRD) Af Amer 94, Est GFR (MDRD) Non-Af 77, BUN/Creatinine Ratio 30.3 H, Glucose 125 H, Calcium 9.1 06/18/22 06:00: WBC 4.9, RBC 4.01 L, Hgb 10.3 L, Hct 32.9 L, MCV 82.0, MCH 25.7 L, MCHC 31.3 L, RDW Std Deviation 50.2 H, RDW Coeff of Angie 16.6 H, Plt Count 399, MPV 10.9, Immature Gran % (Auto) 0.600, Neut % (Auto) 89.6 H, Lymph % (Auto) 4.9 L, [place] % (Auto) 4.7, Eos % (Auto) 0.0, Baso % (Auto) 0.2, Absolute Neuts (auto) 4.4, Absolute Lymphs (auto) 0.24 L, Nucleated RBC % 0 06/18/22 06:00: Sodium 133 L, Potassium 4.1, Chloride 100, Carbon Dioxide 27.0, Anion Gap 6, BUN 19 H, Creatinine 0.71, Estim Creat Clear Calc 48.65, Est GFR (MDRD) Af Amer 106, Est GFR (MDRD) Non-Af 87, BUN/Creatinine Ratio 26.6 H, Glucose 161 H, Calcium 8.7 Radiology Impression Chest X-Ray 06/17/22 10:50 IMPRESSION: Bilateral pleural effusions with compression atelectasis of the lower lobe/pneumonia. Electronically Signed: Liam Duggan MD at 11:09 EDT , Brain CT 06/17/22 12:02 IMPRESSION: 1. No acute intracranial abnormality. 2. Chronic microvascular changes. 3. Paranasal and right mastoid sinusitis Electronically Signed: Liam Duggan MD at 12:15 EDT , Chest CTA 06/17/22 14:58 IMPRESSION: 1. No evidence of acute pulmonary embolism. 2. Bilateral pleural effusions with bibasilar right middle lobe atelectasis. 3. Pulmonary emphysema. 4. 20% left pneumothorax without evidence of tension. Electronically Signed: Liam Duggan MD at 15:50 EDT , ADDENDUM: 06/17/22 1614 IMPRESSION: 1. No evidence of acute pulmonary embolism. 2. Bilateral pleural effusions with bibasilar right middle lobe atelectasis. 3. Pulmonary emphysema. 4. 20% left pneumothorax without evidence of tension. N.B. : The above Results were Read Back by Liam Duggan MD to Dr. Prabha MD, and understanding confirmed on 06/17/2022 16:07:41 (ET). Electronically Signed: Liam Duggan MD at 15:50 EDT , Chest X-Ray 06/17/22 20:00 IMPRESSION: Stable left pneumothorax. Electronically Signed: Gee Cloud MD at 20:35 EDT , Chest X-Ray 06/18/22 05:55 IMPRESSION: COPD with persistent bibasilar opacification, bilateral pleural effusions and small left pneumothorax. Electronically Signed: Atul Davila MD at 7:36 EDT , Charges/Coding Visit Charges Inpatient E&M: 35476 Init Hosp L3
--- NOTE | 2022-06-18 11:20 | CASEMGMT ---
MARCELA JAIMES Assessment: Face to Face with pt for initial transition planning/care coordination assessment. MARCELA JAIMES introduced self and role at [facility], pt voices understanding and consents to assessment. Pt is A/O x4 and answers all questions appropriately at this time. Pt in bed. Appears to be in no distress. Care providers, pharmacy, and demographics verified/updated. Admitting Dx: Hypoxia with Pneumothorax. PCP: Jose. Specialists: Tess, Cardio; Maynor, Pulmonary. Preferred [facility]acy[facility]. Insurance: [employer], Medicare A. Prescription Benefit: yes. LW/HPOA: Son, Damion, as HPOA. Advised LW not on file. Encouraged to bring a copy in if desired. LNOK: Damion Everett, son. Bijan Everett, son. Living Arrangements: Pt's son, Damion, stays with the pt when help is needed. Pt lives in a one story home with a couple steps leading into the home. Pt denied having a hand rail. Pt reports being I in ADLs. Pt advised she tries to remain independent and still works at [employer]. Transportation: Pt drives self and denies concerns with transportation. If pt would need transportation to medical appointments, pt advised she will find someone. DME/HHC/SNF: Pt denied any DME at home. Pt denied current or past HHC, including therapy. Pt denied any past SNF stays. Pt currently is wearing oxygen. Pt denied using oxygen at home. Verbal, local in-network list of DME providers given. Pt chose [facility]. Pt reports having a pulse ox at home. Pt states no concerns with going home at time of dc. Pt states no further concerns/needs. CM to follow. Advised pt to ask CM if any further question/concerns/needs arise, voices understanding. Pt Goal: Home. Plan: Home.
--- NOTE | 2022-06-18 16:11 | CASEMGMT ---
Social Work Pt has a Health care POA on file naming his son Damion Everett. Pt made aware by RNCM that Living will is not on file and can be brought in for scanning into EMR. JACOB Hay
--- NOTE | 2022-06-18 16:12 | PCM.PN.HOSP ---
Subjective Subjective Patient reports that her shortness of breath is better today. She reports that she had previously followed with pulmonology but they have since retired and she has not followed up probably within the last year for pulmonology. She does indicate she had a slight change in sputum production and therefore antibiotics were initiated on admission. Objective Data Objective Data Vital Signs: Vital Signs Temp Pulse Resp BP Pulse Ox O2 Del Method O2 Flow Rate 97.6 F L 95 20 H 105/72 100 Nasal Cannula 5 06/18/22 14:55 06/18/22 14:55 06/18/22 14:55 06/18/22 14:55 06/18/22 14:55 06/18/22 14:57 06/18/22 14:57 Oxygen Flow Rate (L/min) 5 Oxygen Delivery Method Nasal Cannula Weight: 39.009 kg Body Mass Index (BMI) 14.7 Intake & Output: Intake and Output for Last 24 Hours 06/16/22 06/17/22 06/18/22 23:59 23:59 23:59 Intake Total 100 / 100 100 / 100 Balance 100 / 100 100 / 100 Medical Nutrition Assessment Dietitian: Malnutrition Criteria Met Start: 06/18/22 14:11 Freq: Status: Active Protocol: Document 06/18/22 14:23 (Rec: 06/18/22 14:23 [id number]) Nutrition Malnutrition Evidence of Malnutrition Exists Yes Malnutrition (severe): Chronic Evidenced By Suboptimal Energy Intake ( Severe),Weight Loss (Severe), Physical Changes (Severe) Clinical Problem Chronic Disease or Condition Related Malnutrition Etiology severe, related to COPD Signs/Symptoms as evidenced by 10.7lbs (11%) weight loss in 6 months, <75% PO intake of estimated energy needs for >1 month, and severe temporal and orbital fat and muscle loss. Status Active Problem Recommendation Dietitian Recommendations/Changes RD will liberalize diet to Regular ERIKA to optimize oral intakes. RD will order 118mL Ensure Compact with medpass 4x daily. Lab / Micro Data Result Diagrams: 06/18/22 06:00 06/18/22 06:00 Labs: Laboratory Results - last 24 hr 06/18/22 06:00: WBC 4.9, RBC 4.01 L, Hgb 10.3 L, Hct 32.9 L, MCV 82.0, MCH 25.7 L, MCHC 31.3 L, RDW Std Deviation 50.2 H, RDW Coeff of Angie 16.6 H, Plt Count 399, MPV 10.9, Immature Gran % (Auto) 0.600, Neut % (Auto) 89.6 H, Lymph % (Auto) 4.9 L, [place] % (Auto) 4.7, Eos % (Auto) 0.0, Baso % (Auto) 0.2, Absolute Neuts (auto) 4.4, Absolute Lymphs (auto) 0.24 L, Nucleated RBC % 0 06/18/22 06:00: Sodium 133 L, Potassium 4.1, Chloride 100, Carbon Dioxide 27.0, Anion Gap 6, BUN 19 H, Creatinine 0.71, Estim Creat Clear Calc 48.65, Est GFR (MDRD) Af Amer 106, Est GFR (MDRD) Non-Af 87, BUN/Creatinine Ratio 26.6 H, Glucose 161 H, Calcium 8.7 Micro: Microbiology 06/18/22 07:50 Sputum, Expectorated/Coughed Gram Stain - Final 06/18/22 11:10 Interface Orders Legionella Antigen - Final 06/18/22 11:10 Interface Orders Streptococcus pneumoniae Antigen (M - Final Radiography Diagnostic Testing: Radiology Impression Chest CTA 06/17/22 14:58 IMPRESSION: 1. No evidence of acute pulmonary embolism. 2. Bilateral pleural effusions with bibasilar right middle lobe atelectasis. 3. Pulmonary emphysema. 4. 20% left pneumothorax without evidence of tension. Electronically Signed: Liam Duggan MD at 15:50 EDT , ADDENDUM: 06/17/22 3584 IMPRESSION: 1. No evidence of acute pulmonary embolism. 2. Bilateral pleural effusions with bibasilar right middle lobe atelectasis. 3. Pulmonary emphysema. 4. 20% left pneumothorax without evidence of tension. N.B. : The above Results were Read Back by Liam Duggan MD to Dr. Prabha MD, and understanding confirmed on 06/17/2022 16:07:41 (ET). Electronically Signed: Liam Duggan MD at 15:50 EDT , Chest X-Ray 06/17/22 20:00 IMPRESSION: Stable left pneumothorax. Electronically Signed: Gee Cloud MD at 20:35 EDT , Chest X-Ray 06/18/22 05:55 IMPRESSION: COPD with persistent bibasilar opacification, bilateral pleural effusions and small left pneumothorax. Electronically Signed: Atul Davila MD at 7:36 EDT , Physical Exam Const alert and oriented x3 Constitutional Narrative: Enrique Olivares Assessment & Plan Assessment/Plan (1) Severe malnutrition: (2) Iatrogenic pneumothorax: (3) Hypoxia: PLAN: Plan Acute hypoxia without failure secondary to iatrogenic pneumothorax -Patient has been undergoing periodic thoracenteses for some time -? For pleurodesis -Will need to obtain labs if follow-up thoracentesis is performed to assess because of recurrent pleural effusion -Cause is yet to be determined -Unfortunately suffered an iatrogenic pneumothorax--> seems to be resolving with chest x-ray -Continue hyperoxygenation to help with resolution -Repeat chest x-ray in a.m. -Strep pneumo and Legionella antigens negative -Sputum cultures pending -We will continue antibiotics until cultures result and if negative will discontinue -Continue steroids -Continue aerosols -Pulmonary medicine following-appreciate input -Patient to establish with [place] pulmonary medicine after discharge History of recurrent pleural effusion -Patient to follow-up outpatient with pulmonary medicine after discharge -? need for pleurodesis versus VATS -We will need follow-up fluid analysis on next Thora -Continue home diuretics Severe malnutrition -BMI 14.8 -Suspect pulmonary cachexia -Dietitian is following -Supplements were added -Would recommend outpatient supplements be ordered at the time of discharge COPD -History of tobacco abuse-remote -Restart inhalers on discharge -Continue current pulmonary toilet -Pulmonary medicine following CAD -Continue home aspirin Plavix -No current active disease -Continue home Bumex Hypothyroidism -Continue home levothyroxine Hypertension -Continue home metoprolol -Continue home Aldactone GERD -Continue PPI Hyperlipidemia -Continue home atorvastatin Chronic diastolic heart failure -Currently compensated -Continue home diuretics History of gout -No active issues History of tobacco abuse -Remote -Continue to encourage cessation DVT prophylaxis -Start subcu heparin CODE STATUS -Full code Charges/Coding Visit Charges Inpatient E&M: 50825 Subs Hosp L2
[2022-06-18] MEDS: Atorvastatin Calcium 40 MG Tablet PO (20:55)
[2022-06-18] MEDS: Heparin Injection (Vial) 5,000 UNIT/ML VIAL 5000 UNIT SC (20:55)
[2022-06-18] MEDS: Montelukast 10 MG Tablet PO (20:56)
[2022-06-18] MEDS: LORazepam 0.5 MG Tablet PO (22:29)
[2022-06-19] VITALS (13 sets, daily range): BP systolic 90–122; BP diastolic 56–78; PULSE 71–97; RESP 12–24; TEMP 36.5–36.9; O2SAT 78–98
[2022-06-19] MEDS: Levothyroxine 88 MCG Tablet PO (03:48)
--- NOTE | 2022-06-19 05:55 | RAD_ITS ---
STUDY: X-RAY CHEST REASON FOR EXAM: Female, 67 years old. PTX TECHNIQUE: Single AP portable view of the chest. COMPARISON: Comparison is made with prior study dated 06/18/2022. FINDINGS: Stable tiny right apical pneumothorax. Stable small bilateral pleural effusions and bibasilar atelectasis. RAD/Chest 1 View (Portable) IMPRESSION: Stable tiny left apical pneumothorax. Stable small bilateral pleural effusions with bibasilar atelectasis. Electronically Signed: Bert Hirsch MD at 8:55 EDT ,
--- NOTE | 2022-06-19 07:13 | PN.HOSP_ITS ---
Subjective Subjective Follow-up for acute hypoxic respiratory insufficiency due to pneumothorax Patient has a history of COPD/bronchiectasis. Patient is still has conversational dyspnea. On walking her oxygen requirement went high 6 L along with shortness of breath Objective Data Objective Data Vital Signs: Vital Signs Temp Pulse Resp BP Pulse Ox O2 Del Method O2 Flow Rate 98.5 F 92 18 122/78 H 94 Nasal Cannula 5 06/19/22 03:30 06/19/22 03:30 06/19/22 03:30 06/19/22 03:30 06/19/22 03:30 06/19/22 03:30 06/19/22 03:30 Oxygen Flow Rate (L/min) 5 Oxygen Delivery Method Nasal Cannula Weight: 86 lb 0.002 oz Body Mass Index (BMI) 14.7 Intake & Output: Intake and Output for Last 24 Hours 06/17/22 06/18/22 06/19/22 23:59 23:59 23:59 Intake Total 100 / 100 100 / 100 Balance 100 / 100 100 / 100 Medical Nutrition Assessment Dietitian: Malnutrition Criteria Met Start: 06/18/22 14:11 Freq: Status: Active Protocol: Document 06/18/22 14:23 (Rec: 06/18/22 14:23 [id number]) Nutrition Malnutrition Evidence of Malnutrition Exists Yes Malnutrition (severe): Chronic Evidenced By Suboptimal Energy Intake ( Severe),Weight Loss (Severe), Physical Changes (Severe) Clinical Problem Chronic Disease or Condition Related Malnutrition Etiology severe, related to COPD Signs/Symptoms as evidenced by 10.7lbs (11%) weight loss in 6 months, <75% PO intake of estimated energy needs for >1 month, and severe temporal and orbital fat and muscle loss. Status Active Problem Recommendation Dietitian Recommendations/Changes RD will liberalize diet to Regular ERIKA to optimize oral intakes. RD will order 118mL Ensure Compact with medpass 4x daily. Lab / Micro Data Result Diagrams: 06/18/22 06:00 06/18/22 06:00 Labs: Laboratory Results - last 24 hr 06/18/22 06:00: Sodium 133 L, Potassium 4.1, Chloride 100, Carbon Dioxide 27.0, Anion Gap 6, BUN 19 H, Creatinine 0.71, Estim Creat Clear Calc 48.65, Est GFR (MDRD) Af Amer 106, Est GFR (MDRD) Non-Af 87, BUN/Creatinine Ratio 26.6 H, Glucose 161 H, Calcium 8.7 Micro: Microbiology 06/18/22 07:50 Sputum, Expectorated/Coughed Gram Stain - Final 06/18/22 11:10 Interface Orders Legionella Antigen - Final 06/18/22 11:10 Interface Orders Streptococcus pneumoniae Antigen (M - Final Radiography Diagnostic Testing: Radiology Impression Chest X-Ray 06/18/22 05:55 IMPRESSION: COPD with persistent bibasilar opacification, bilateral pleural effusions and small left pneumothorax. Electronically Signed: Atul Davila MD at 7:36 EDT , Physical Exam Narrative General: Alert, Oriented x3, Cooperative HEENT: Atraumatic, PERRLA, EOMI, Normocephalic Oral: No Gingival or Mucosal Lesions/ Ulcerations Neck: Supple, No JVD, Negative Carotid Bruits Lungs: Mild conversational dyspnea probably chronic. Air entry severely diminished in bilateral lung bases. No crepitation/rhonchi Cardiovascular: Regular rate, Regular Rhythm, Normal S1, Normal S2, No murmurs Abdomen: Bowel Sounds Present, Soft, Non Tender, Non-Distended : No renal angle tenderness. No suprapubic tenderness. Extremities: No edema, Capillary Refill Less than 3 Seconds Skin: No rashes, No breakdown Musculoskeletal: No Tenderness to Palpation of Joints or Extremities. Moderate muscle atrophy of extremities Neurological: Cranial nerves II-XII grossly intact, DTR 2+/4, muscle strength 4+/5 at major joints of LE Psych/Mental Status: Normal Affect, Appropriate. Assessment & Plan Assessment/Plan (1) Severe malnutrition: (2) Iatrogenic pneumothorax: (3) Hypoxia: PLAN: Plan Acute respiratory insufficiency with acute hypoxia without respiratory failure secondary to iatrogenic pneumothorax: Patient had iatrogenic pneumothorax after routine periodic thoracocentesis. He had chest x-ray done in the morning shows a small left pneumothorax and bilateral pleural effusion. Discussed with the pin machine tender. On walking, pulse ox 78% on room air, 88% on 4 L and she required 6 L of oxygen for 91%. Currently on 5 L of oxygen at rest. -Strep pneumo and Legionella antigens negative -Sputum cultures pending continue antibiotics until cultures result and if negative will discontinue -Continue steroids -Continue aerosols -Pulmonary medicine following-appreciate input -Patient to establish with [facility] after discharge History of recurrent pleural effusion -Patient to follow-up outpatient with pulmonary medicine after discharge Resident further determination of pleurodesis versus VATS as outpatient after recovery from pneumothorax as an outpatient. On diuretic Severe malnutrition -BMI 14.8 -Suspect pulmonary cachexia -Dietitian is following -Supplements were added -Would recommend outpatient supplements be ordered at the time of discharge COPD -History of tobacco abuse-remote -Restart inhalers on discharge -Continue current pulmonary toilet -Pulmonary medicine following CAD -Continue home aspirin Plavix -No current active disease -Continue home Bumex Hypothyroidism -Continue home levothyroxine Hypertension -Continue home metoprolol -Continue home Aldactone GERD -Continue PPI Hyperlipidemia -Continue home atorvastatin Chronic diastolic heart failure -Currently compensated -Continue home diuretics History of gout -No active issues History of tobacco abuse -Remote -Continue to encourage cessation DVT prophylaxis -Start subcu heparin CODE STATUS -Full code Charges/Coding Visit Charges Inpatient E&M: 07121 Subs Hosp L2
[2022-06-19] MEDS: Ipratropium/Albuterol Sulfate 3 ML AMPUL.NEB INHALATION ×5 (07:37→23:24)
[2022-06-19] MEDS: Sodium Chloride 0.65% 1 SPRAY SPRAY.BTL 2 SPRAY NASAL (07:58)
[2022-06-19] MEDS: Vitamin B Comp W-C Capsule 1 CAP PO (08:01)
[2022-06-19] MEDS: predniSONE 20 MG Tablet 40 MG PO (08:01)
[2022-06-19] MEDS: Potassium Chloride Oral Tablet 10 MEQ 30 MEQ PO ×2 (08:01→16:55)
--- NOTE | 2022-06-19 09:48 | PN.CC_ITS ---
Assessment & Plan Assessment/Plan (1) Iatrogenic pneumothorax: (2) Restrictive pericarditis: (3) Syncope and collapse: PLAN: Plan RECOMMENDATIONS: 1. Attempt room air walking oximetry 2. Potential discharge if able to tolerate room air 3. If require supplemental oxygen with ambulation, reinitiate 5 L and repeat chest x-ray tomorrow morning 4. No chest tube at this time 5. Potential discharge later today with follow-up in our office in 2 to 3 weeks IMPRESSIONS: 1. Acute hypoxic respiratory insufficiency secondary to a 20% iatrogenic pneumothorax in the setting of reported COPD/bronchiectasis Patient reportedly does not require supplemental oxygen at baseline, but did saturate 80% on presentation. Clinical suspicion for multifactorial etiology with underlying lung disease, history of congestive heart failure and pneumothorax leading to current condition. X-ray shows no worsening of pneumothorax. Likely okay to discontinue antibiotics from my perspective. Pneumothorax has not significantly changed despite 24 hours. Patient likely okay to be discharged if able to ambulate without supplemental oxygen. If patient does require supplemental oxygen, reinitiate 5 L/min and repeat chest x- ray tomorrow morning. 2. Hypertension/hyperlipidemia/CAD/chronic diastolic CHF Patient typically followed by the heart group. Okay to continue with diuretics at this time. Patient is not showing any stigmata of acute heart failure from my perspective. Defer to hospitalist on involving cardiology, but I believe the patient is doing okay from my perspective. Review of the [facility] medical record shows patient has a history of restrictive pericarditis. 3. Hypothyroidism/GERD/gout/advanced age/frailty Complicates care, management, recovery and prognosis. Okay to continue with baseline medications. We will need to watch renal function closely given diuretic therapy. Glucose is slightly elevated today, but we will hold on any basal insulin at this time Subjective Subjective Patient did well overnight. No acute issues were reported. Patient overall feels subjectively unchanged compared to previous. Patient is not reporting any chest pain. Objective Data Objective Data Vital Signs: Vital Signs Temp Pulse Resp BP Pulse Ox O2 Del Method O2 Flow Rate 36.6 C 92 18 103/70 96 Nasal Cannula 5 06/19/22 08:08 06/19/22 08:08 06/19/22 08:08 06/19/22 08:08 06/19/22 08:08 06/19/22 08:25 06/19/22 08:25 Oxygen Flow Rate (L/min) 5 Oxygen Delivery Method Nasal Cannula Weight: 39.009 kg Body Mass Index (BMI) 14.7 Intake & Output: Intake and Output for Last 24 Hours 06/17/22 06/18/22 06/19/22 23:59 23:59 23:59 Intake Total 100 / 100 100 / 100 Balance 100 / 100 100 / 100 Medical Nutrition Assessment Dietitian: Malnutrition Criteria Met Start: 06/18/22 14:11 Freq: Status: Active Protocol: Document 06/18/22 14:23 LO (Rec: 06/18/22 14:23 [id number]) Nutrition Malnutrition Evidence of Malnutrition Exists Yes Malnutrition (severe): Chronic Evidenced By Suboptimal Energy Intake ( Severe),Weight Loss (Severe), Physical Changes (Severe) Clinical Problem Chronic Disease or Condition Related Malnutrition Etiology severe, related to COPD Signs/Symptoms as evidenced by 10.7lbs (11%) weight loss in 6 months, <75% PO intake of estimated energy needs for >1 month, and severe temporal and orbital fat and muscle loss. Status Active Problem Recommendation Dietitian Recommendations/Changes RD will liberalize diet to Regular ERIKA to optimize oral intakes. RD will order 118mL Ensure Compact with medpass 4x daily. Lab / Micro Data Attestation: I reviewed the patient's lab results. Result Diagrams: 06/18/22 06:00 06/18/22 06:00 Micro: Microbiology 06/18/22 07:50 Sputum, Expectorated/Coughed Gram Stain - Final 06/18/22 11:10 Interface Orders Legionella Antigen - Final 06/18/22 11:10 Interface Orders Streptococcus pneumoniae Antigen (M - Final Radiography Diagnostic Testing: Radiology Impression Chest X-Ray 06/19/22 05:55 IMPRESSION: Stable tiny left apical pneumothorax. Stable small bilateral pleural effusions with bibasilar atelectasis. Electronically Signed: Bert Hirsch MD at 8:55 EDT , Physical Exam Const oriented x3 and no apparent distress General Appearance: frail; Negative for in distress HEENT normocephalic and head/scalp atraumatic; Negative for moist oral mucous membranes Eyes PERRL, EOMs intact bilaterally and conjunctivae normal Neck full ROM Lymph Lymphatic: no lymphadenopathy noted Resp Effort and Inspection: tachypneic and prolonged expiratory phase; Negative for actively coughing or uses accessory muscles Auscultation: diminished lung sounds; Negative for rales, rhonchi or wheezes Cardio regular rhythm, S1 normal heart sound, S2 normal heart sound, no murmurs, no rub, no gallops and no JVD Rate: tachycardic GI normal to inspection, nondistended, normoactive bowel sounds and soft to palpa tion Narrative: Mild CVA tenderness noted Extremity no clubbing, cyanosis or edema Skin no rashes or lesions noted Neuro oriented x3, CN's II-XII intact bilaterally and moves all extremities Psych cooperative and affect normal Charges/Coding Visit Charges Inpatient E&M: 38426 Subs Hosp L2
[2022-06-19] MEDS: Pantoprazole Sodium 20 MG Tablet PO (10:03)
[2022-06-19] MEDS: Metoprolol Tartrate 25 MG Tablet 12.5 MG PO ×2 (10:03→20:38)
[2022-06-19] MEDS: guaiFENesin 1,200 MG Tablet 1200 MG PO ×2 (10:03→20:39)
[2022-06-19] MEDS: 0.9% Saline Lock 10 ML Syringe IV (10:04)
[2022-06-19] MEDS: Heparin Injection (Vial) 5,000 UNIT/ML VIAL 5000 UNIT SC ×2 (10:04→20:38)
[2022-06-19] MEDS: Colchicine 0.6 MG TABLET PO (10:04)
[2022-06-19] MEDS: levoFLOXacin IV 500 MG/100 ML BAG 100 MG IV (10:05)
[2022-06-19] MEDS: Spironolactone 25 MG Tablet PO (10:05)
[2022-06-19] MEDS: Bumetanide 2 MG Tablet 1 MG PO (12:26)
[2022-06-19] MEDS: FLU VACC QS2022-23(6MOS UP)/PF 60 MCG/0.5 ML SYRINGE IM (12:27)
[2022-06-19] MEDS: Atorvastatin Calcium 40 MG Tablet PO (20:38)
[2022-06-19] MEDS: Montelukast 10 MG Tablet PO (20:38)
[2022-06-19] MEDS: LORazepam 0.5 MG Tablet PO (23:19)
[2022-06-20] VITALS (15 sets, daily range): BP systolic 112–122; BP diastolic 61–78; PULSE 72–108; RESP 16–22; TEMP 36.6–36.8; O2SAT 88–98
[2022-06-20] MEDS: Acetaminophen 325 MG Tablet 650 MG PO (02:44)
--- NOTE | 2022-06-20 05:05 | RAD_ITS ---
INDICATION: Follow-up pneumothorax EXAMINATION/TECHNIQUE: X-RAY - XR Chest 1 View COMPARISON: 06/19/2022. FINDINGS: LINES/DEVICES: None. LUNGS: No definite pneumothorax is seen at this time. Persistent bibasilar atelectatic changes and effusions unchanged. MEDIASTINUM AND CARDIOVASCULAR STRUCTURES: Cardiac silhouette not enlarged. Central airways and mediastinal contour are unremarkable. BONES AND SOFT TISSUES: Unchanged. RAD/Chest 1 View (Portable) IMPRESSION: No definite pneumothorax. Otherwise no significant change. Electronically Signed: Chaz Concepcion MD at 14:55 EDT ,
[2022-06-20 06:00] LABS: Basophil# 0.01 X10^3/uL; Basophil% 0.1 % (0-1); Eosinophil# 0.01 X10^3/uL; Eosinophils% 0.1 % (0-5); Hemoglobin 10.3 g/dL (12.0-15.0); Lymphocyte % 5.1 % (19-41); Mean Corp Hgb Conc 31.2 g/dL (32-36); Mean Corpuscular Hgb 26.3 pg (27.0-32.0); Mean Corpuscular Volume 84.2 fL (81-99); Mean Platelet Vol. 10.7 fl (6.2-12.0); Monocyte# 1.24 X10^3/uL; Monocyte% 12.7 % (0-10); NRBC Flagged by Analyzer 0 % (0-5); Neutrophil # 7.99 X10^3/uL (2.7-7.7); Neutrophil % 81.6 % (47-70); POSITIVE DIFFERENTIAL YES; Platelet Count 427 K/mm3 (150-450); RBC Distribution Width CV 16.8 % (11.6-14.6); RBC Distribution Width SD 52.4 fl (35.1-43.9); Red Blood Count 3.92 M/mm3 (4.2-5.4); White Blood Count 9.8 K/mm3 (4.4-11.0)
[2022-06-20 06:02] LABS: Differential Indicated SCAN CRITERIA MET
[2022-06-20] MEDS: Levothyroxine 88 MCG Tablet PO (06:30)
[2022-06-20 06:36] LABS: Anion Gap 6 (5-15); BUN 27 mg/dL (7-18); BUN/Creat Ratio 36.6 RATIO (10-20); Calcium,Total 8.8 mg/dL (8.5-10.1); Chloride 97 mmol/L (98-107); Creatinine, Serum 0.74 mg/dL (0.55-1.02); EST Glomerular Filtration Rate 84 mL/min (>60); Est Glom Filt Rate - Afr Amer 102 mL/min (>60); Estimated Creatinine Clearance 46.67 ml/min; Glucose 97 mg/dL (74-106); Sodium Level 135 mmol/L (136-145)
[2022-06-20] MEDS: Sodium Chloride 0.65% 1 SPRAY SPRAY.BTL 2 SPRAY NASAL ×2 (06:36→20:13)
[2022-06-20 06:41] LABS: Differential Comment SCANNED
[2022-06-20] MEDS: Ipratropium/Albuterol Sulfate 3 ML AMPUL.NEB INHALATION ×4 (07:04→18:50)
[2022-06-20] MEDS: predniSONE 20 MG Tablet 40 MG PO (08:48)
[2022-06-20] MEDS: Potassium Chloride Oral Tablet 10 MEQ 30 MEQ PO ×2 (08:48→16:56)
[2022-06-20] MEDS: guaiFENesin 1,200 MG Tablet 1200 MG PO ×2 (08:49→20:05)
[2022-06-20] MEDS: Metoprolol Tartrate 25 MG Tablet 12.5 MG PO ×2 (08:50→20:05)
[2022-06-20] MEDS: Vitamin B Comp W-C Capsule 1 CAP PO (08:50)
[2022-06-20] MEDS: Pantoprazole Sodium 20 MG Tablet PO (08:50)
[2022-06-20] MEDS: Spironolactone 25 MG Tablet PO (08:51)
--- NOTE | 2022-06-20 08:51 | PCM.PN.INT ---
Assessment & Plan Assessment/Plan (1) Iatrogenic pneumothorax: (2) Restrictive pericarditis: (3) Syncope and collapse: PLAN: Plan RECOMMENDATIONS: 1. Attempt room air walking oximetry 2. Okay to discharge if patient is willing to go on supplemental oxygen 3. If require supplemental oxygen with ambulation, reinitiate 5 L and repeat chest x-ray tomorrow morning 4. No chest tube at this time 5. Potential discharge later today with follow-up in our office in 2 to 3 weeks 6. Wean steroids over 12 to 14 days if discharge IMPRESSIONS: 1. Acute hypoxic respiratory insufficiency secondary to a 20% iatrogenic pneumothorax in the setting of reported COPD/bronchiectasis Patient reportedly does not require supplemental oxygen at baseline, but did saturate 80% on presentation. Clinical suspicion for multifactorial etiology with underlying lung disease, history of congestive heart failure and pneumothorax leading to current condition. X-ray shows no worsening of pneumothorax. Discontinue antibiotics. Wean steroids over 12 to 14 days. Pneumothorax has not significantly changed despite 24 hours. Patient likely okay to be discharged if open to being discharged on supplemental oxygen. If patient does require supplemental oxygen, reinitiate 5 L/min and repeat chest x-ray tomorrow morning. 2. Hypertension/hyperlipidemia/CAD/chronic diastolic CHF Patient typically followed by the heart group. Okay to continue with diuretics at this time. Patient is not showing any stigmata of acute heart failure from my perspective. Defer to hospitalist on involving cardiology, but I believe the patient is doing okay from my perspective. Review of the electronic medical record shows patient has a history of restrictive pericarditis. 3. Hypothyroidism/GERD/gout/advanced age/frailty Complicates care, management, recovery and prognosis. Okay to continue with baseline medications. We will need to watch renal function closely given diuretic therapy. Glucose is slightly elevated today, but we will hold on any basal insulin at this time Subjective Subjective Patient overall feels subjectively slightly improved compared to yesterday. Patient was not able to be discharged yesterday secondary to high oxygen requirements with ambulation. Patient is a little apprehensive about going home with oxygen as this is never been needed before. Objective Data Objective Data Vital Signs: Vital Signs Temp Pulse Resp BP Pulse Ox O2 Del Method O2 Flow Rate 36.6 C 100 18 122/77 H 97 Nasal Cannula 5 06/20/22 02:35 06/20/22 07:02 06/20/22 07:02 06/20/22 02:35 06/20/22 07:02 06/20/22 07:02 06/20/22 07:02 Oxygen Flow Rate (L/min) [ 6 AMBULATING with Oxygen #2] Oxygen Flow Rate (L/min) [ 4 AMBULATING with Oxygen #1] Oxygen Flow Rate (L/min) [At 4 REST with Oxygen] Oxygen Flow Rate (L/min) 5 Oxygen Delivery Method Nasal Cannula Weight: 39.009 kg Body Mass Index (BMI) 14.7 Intake & Output: Intake and Output for Last 24 Hours 06/18/22 06/19/22 06/20/22 23:59 23:59 23:59 Intake Total 100 / 100 1300 / 1300 Balance 100 / 100 1300 / 1300 Medical Nutrition Assessment Dietitian: Malnutrition Criteria Met Start: 06/18/22 14:11 Freq: Status: Active Protocol: Document 06/18/22 14:23 LO (Rec: 06/18/22 14:23 [id number]) Nutrition Malnutrition Evidence of Malnutrition Exists Yes Malnutrition (severe): Chronic Evidenced By Suboptimal Energy Intake ( Severe),Weight Loss (Severe), Physical Changes (Severe) Clinical Problem Chronic Disease or Condition Related Malnutrition Etiology severe, related to COPD Signs/Symptoms as evidenced by 10.7lbs (11%) weight loss in 6 months, <75% PO intake of estimated energy needs for >1 month, and severe temporal and orbital fat and muscle loss. Status Active Problem Recommendation Dietitian Recommendations/Changes RD will liberalize diet to Regular ERIKA to optimize oral intakes. RD will order 118mL Ensure Compact with medpass 4x daily. Lab / Micro Data Attestation: I reviewed the patient's lab results. Result Diagrams: 06/20/22 05:00 06/20/22 05:00 Labs: Laboratory Results - last 24 hr 06/20/22 05:00: WBC 9.8, RBC 3.92 L, Hgb 10.3 L, Hct 33.0 L, MCV 84.2, MCH 26.3 L, MCHC 31.2 L, RDW Std Deviation 52.4 H, RDW Coeff of Angie 16.8 H, Plt Count 427, MPV 10.7, Immature Gran % (Auto) 0.400, Neut % (Auto) 81.6 H, Lymph % (Auto) 5.1 L, [place] % (Auto) 12.7 H, Eos % (Auto) 0.1, Baso % (Auto) 0.1, Absolute Neuts (auto) 8.0 H, Absolute Lymphs (auto) 0.50 L, Nucleated RBC % 0, Differential Comment SCANNED 06/20/22 05:00: Sodium 135 L, Potassium 4.0, Chloride 97 L, Carbon Dioxide 32.0, Anion Gap 6, BUN 27 H, Creatinine 0.74, Estim Creat Clear Calc 46.67, Est GFR (MDRD) Af Amer 102, Est GFR (MDRD) Non-Af 84, BUN/Creatinine Ratio 36.6 H, Glucose 97, Calcium 8.8 Micro: Microbiology 06/18/22 07:50 Sputum, Expectorated/Coughed Gram Stain - Final 06/18/22 07:50 Sputum, Expectorated/Coughed Respiratory Culture - Preliminary Appears to be normal respiratory dayana. Further studies to follow. 06/18/22 11:10 Interface Orders Legionella Antigen - Final 06/18/22 11:10 Interface Orders Streptococcus pneumoniae Antigen (M - Final Radiography Diagnostic Testing: Radiology Impression Chest X-Ray 06/19/22 05:55 IMPRESSION: Stable tiny left apical pneumothorax. Stable small bilateral pleural effusions with bibasilar atelectasis. Electronically Signed: Bert Hirsch MD at 8:55 EDT , Physical Exam Const oriented x3 and no apparent distress General Appearance: frail; Negative for in distress HEENT normocephalic and head/scalp atraumatic; Negative for moist oral mucous membranes Eyes PERRL, EOMs intact bilaterally and conjunctivae normal Neck full ROM Lymph Lymphatic: no lymphadenopathy noted Resp Effort and Inspection: tachypneic and prolonged expiratory phase; Negative for actively coughing or uses accessory muscles Auscultation: diminished lung sounds; Negative for rales, rhonchi or wheezes Cardio regular rhythm, S1 normal heart sound, S2 normal heart sound, no murmurs, no rub, no gallops and no JVD Rate: tachycardic GI normal to inspection, nondistended, normoactive bowel sounds and soft to palpation Narrative: Mild CVA tenderness noted Extremity no clubbing, cyanosis or edema Skin no rashes or lesions noted Neuro oriented x3, CN's II-XII intact bilaterally and moves all extremities Psych cooperative and affect normal Charges/Coding Visit Charges Inpatient E&M: 20671 Subs Hosp L2
[2022-06-20] MEDS: Colchicine 0.6 MG TABLET PO (08:52)
[2022-06-20] MEDS: Heparin Injection (Vial) 5,000 UNIT/ML VIAL 5000 UNIT SC ×2 (08:53→20:07)
--- NOTE | 2022-06-20 09:57 | DCINST_ITS ---
Discharge Instructions Diet Discharge Diet: 2000 mg Sodium Diet Dressing / Incision Call your doctor if you observe: Fever of 101 or Higher, Coldness, Increased Pain, Numbness or Tingling, Change in Color, Inability to urinate, Inability to have a bowel movement, Using more than 1 pad per hour, Shortness of breath, Dizziness, Fainting spells, Swelling in the ankles, Chest pain, Prolonged hiccupping, Increased palpitations (irregular heartbeat), Calf discomfort and Uncontrolled pain Follow Up Care Test Results: Test results from this visit will be discussed in further detail at your follow- up appointment, if applicable. Discharge Plan Admission Admit Date/Time: 06/17/22 16:17 Primary Reason for Your Visit: Acute hypoxic respiratory insufficiency. Echogenic pneumothorax Attending Provider: Adrian Mcmanus Primary Care Provider: Atul Garcia Consulting Providers: Bernard Mcguire ; Darrin Meredith ; Navi Peterson ; Mal Iniguez ; Vicki Sahu [employer] ; Nomi Bunn ; Bailey Mcelroy Discharge Orders/Prescriptions Prescriptions: [place] Nasal 0.65 % Aerosol,[place] 2 spray NASAL TID PRN PRN (Reason: NASAL DRYNESS) Qty: 0 0RF prednisone 10 mg tablets,dose pack See Taper PO DAILY Qty: 40 0RF Taper: Prednisone Taper 40 mg WITH BREAKFAST for 4 Days and 0 Hour 30 mg WITH BREAKFAST for 4 Days and 0 Hour 20 mg WITH BREAKFAST for 4 Days and 0 Hour 10 mg WITH BREAKFAST for 4 Days and 0 Hour Continued potassium chloride 10 mEq tablet extended release 30 meq PO BID levothyroxine 88 mcg tablet 88 mcg PO MOTUWETHFRSA Rx Instructions: one and one half tablet wednesday montelukast 10 mg tablet 10 mg PO DAILY vitamin B complex [B Complex-Vitamin B12] Tablet 1 tab PO DAILY bumetanide 1 mg tablet 1 mg PO DAILY Qty: 90 3RF aspirin 81 mg tablet,delayed release (DR/EC) 81 mg PO DAILY Qty: 90 3RF atorvastatin 40 mg tablet 40 mg PO QHS Qty: 90 3RF metoprolol tartrate 25 mg tablet 12.5 mg PO BID Qty: 120 3RF multivitamin 1 EACH tablet 1 ea PO DAILY Label Comments: SUPPLEMENT omeprazole 20 MG capsule 20 mg PO DAILY Label Comments: ACID REFLUX albuterol sulfate 1 INHALER inhaler 2 puff INHALATION Q4H PRN PRN (Reason: Bronchodialation) Label Comments: SHORTNESS OF BREATH lorazepam 0.5 MG tablet 0.5 mg PO BID PRN PRN (Reason: Anxiety) Label Comments: Anxiety ascorbic acid (vitamin C) 500 MG tablet,chewable 500 mg PO BIDCM Qty: 0 0RF Rx Instructions: Take with iron budesonide 180 mcg/actuation aerosol powdr breath activated 1 inh INHALATION BID levothyroxine 88 mcg tablet 132 mcg PO GEORGES Label Comments: TAKE 1 TABLET BY MOUTH ONCE DAILY EXCEPT WEDNESDAY TAKE 1&1/2 TABLET ON AN EMPTY STOMACH Mucinex 1,200 mg Tablet Extended Release 12hr 1,200 mg PO BID acetaminophen 500 mg Tablet 1,000 mg PO Q6H PRN (Reason: Pain) clopidogrel 75 mg tablet 75 mg PO DAILY Qty: 90 3RF colchicine 0.6 mg tablet 0.6 mg PO DAILY Qty: 30 11RF spironolactone 25 mg tablet 25 mg PO DAILY Qty: 90 3RF Referrals / Follow Up: Brenard Mcguire MD [Med Staff - Active Staff] - Within 2 Weeks Atul Garcia MD [Primary Care Provider] - Keep [facility] appointment Disposition Disposition (needs filled in before D/C Order can be placed): Home, Self Care
--- NOTE | 2022-06-20 10:52 | NURSING ---
pt had emesis while coughing and does not wish to do walking pox at this time
--- NOTE | 2022-06-20 11:06 | PCM.DC.SUM ---
Providers Date of Admission: 06/17/22 Date of Discharge: 06/20/22 Primary Care Physician: Dr. 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 Code(s): I31.9 - Disease of pericardium, unspecified (3) Syncope and collapse: Status: Acute Code(s): R55 - Syncope and collapse Medications at Discharge Home Medications albuterol sulfate 90 mcg/actuation aerosol inhaler 2 puff inhalation Q4H PRN PRN Bronchodialation 09/07/16 multivitamin 1 ea PO DAILY supplement 09/07/16 omeprazole 20 mg capsule,delayed release 20 mg PO DAILY GERD 09/07/16 lorazepam 0.5 mg tablet 0.5 mg PO BID PRN PRN Anxiety 09/26/16 ascorbic acid (vitamin C) 500 mg chewable tablet 500 mg PO BIDCM supplement ##0 06/20/20 budesonide 180 mcg/actuation breath activated powder inhaler 1 inh inhalation BID COPD 02/11/21 montelukast 10 mg tablet 10 mg PO DAILY 02/11/21 vitamin B complex (B Complex-Vitamin B12 tablet) 1 tab PO DAILY 02/11/21 aspirin 81 mg tablet,delayed release 81 mg PO DAILY #90 tabs 08/20/21 atorvastatin 40 mg tablet 40 mg PO QHS #90 tabs 08/20/21 bumetanide 1 mg tablet 1 mg PO DAILY water pill #90 tabs 08/20/21 clopidogrel 75 mg tablet 75 mg PO DAILY #90 tabs 08/21/21 colchicine 0.6 mg tablet 0.6 mg PO DAILY gout #30 tabs 01/14/22 levothyroxine 88 mcg tablet 88 mcg PO MOTUWETHFRSA 01/20/22 metoprolol tartrate 25 mg tablet 12.5 mg PO BID #120 tabs 01/20/22 potassium chloride 10 mEq tablet,extended release 30 meq PO BID 01/20/22 spironolactone 25 mg tablet 25 mg PO DAILY #90 tabs 03/23/22 acetaminophen 500 mg tablet 1,000 mg PO Q6H PRN Pain 06/17/22 guaifenesin 1,200 mg tablet, extended release 12 hr (Mucinex) 1,200 mg PO BID CONGESTION 06/17/22 levothyroxine 88 mcg tablet 132 mcg PO GEORGES 06/17/22 prednisone 10 mg tablets in a dose pack See Taper PO DAILY #40 tabs 06/20/22 sodium chloride 0.65 % nasal spray aerosol (Deep Sea Nasal) 2 spray NASAL TID PRN PRN NASAL DRYNESS #0 mL 06/20/22 Hospital Course Summary of Care Provided Hospital Course: This 67-year-old female came to ED for syncopal episode probably due to coughing fit which has gotten worse for last several days prior to admission. No fever or sick. Patient has history of bilateral pleural effusion left more than right for which she had thoracocentesis as an outpatient and developed 20% left pneumothorax and thereafter admitted. Acute respiratory insufficiency with acute hypoxia without respiratory failure secondary to iatrogenic pneumothorax: Patient had iatrogenic pneumothorax after routine periodic thoracocentesis. He had chest x-ray done in the morning shows a small left pneumothorax and bilateral pleural effusion. 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 On walking, pulse ox 78% on room air, 88% on 4 L and she required 6 L of oxygen for 91%. Currently on 5 L of oxygen at rest. -Strep pneumo and Legionella antigens negative -Sputum cultures pending continue antibiotics until cultures result and if negative will discontinue -Continue steroids -Continue aerosols 06/20-Patient is still requires 5 L of oxygen, pulse ox 96%. Repeat chest x-ray did not show much change as compared to yesterday. Patient is discharged on patient is oxygen with follow-up in pulmonary clinic in 2 weeks. Patient is discharged on extended dose of prednisone taper over 16 days. History of recurrent pleural effusion -Patient to follow-up outpatient with pulmonary medicine after discharge Resident further determination of pleurodesis versus VATS as outpatient after recovery from pneumothorax as an outpatient. On diuretic Severe malnutrition -BMI 14.8 -Suspect pulmonary cachexia -Dietitian is following -Supplements were added -Would recommend outpatient supplements be ordered at the time of discharge COPD -History of tobacco abuse-remote -Restart inhalers on discharge -Continue current pulmonary toilet -Pulmonary medicine following CAD -Continue home aspirin Plavix -No current active disease -Continue home Bumex Hypothyroidism -Continue home levothyroxine Hypertension -Continue home metoprolol -Continue home Aldactone GERD -Continue PPI Hyperlipidemia -Continue home atorvastatin Chronic diastolic heart failure -Currently compensated -Continue home diuretics History of gout -No active issues History of tobacco abuse -Remote -Continue to encourage cessation DVT prophylaxis -Start subcu heparin CODE STATUS -Full code Discharge medication reconciliation done. Discharge follow-up instructions completed. Discharge process discussed with the patient and all questions were answered to patient's satisfaction. Total time spent, exact 35 minutes on discharge meds reconciliation, examination, coordination of care with nurses and ancillary staff, review of imaging and blood test and discussion with the patient on follow-up instructions. Physical Exam Narrative Seen and examined. Discussed with patient preference as patient might need oxygen for several days to week. She agreed for home oxygen. Patient discharged on oxygen. General: Alert, Oriented x3, Cooperative HEENT: Atraumatic, PERRLA, EOMI, Normocephalic Oral: No Gingival or Mucosal Lesions/ Ulcerations Neck: Supple, No JVD, Negative Carotid Bruits Lungs: Dyspnea is much improved. Air entry severely diminished in bilateral lung bases. No crepitation/rhonchi Cardiovascular: Regular rate, Regular Rhythm, Normal S1, Normal S2, No murmurs Abdomen: Bowel Sounds Present, Soft, Non Tender, Non-Distended : No renal angle tenderness. No suprapubic tenderness. Extremities: No edema, Capillary Refill Less than 3 Seconds Skin: No rashes, No breakdown Musculoskeletal: No Tenderness to Palpation of Joints or Extremities. Moderate muscle atrophy of extremities Neurological: Cranial nerves II-XII grossly intact, DTR 2+/4, muscle strength 4+/5 at major joints of LE Psych/Mental Status: Normal Affect, Appropriate. Medical Records Data Medical Nutrition Assessment Dietitian: Malnutrition Criteria Met Start: 06/18/22 14:11 Freq: Status: Active Protocol: Document 06/18/22 14:23 (Rec: 06/18/22 14:23 [id number]) Nutrition Malnutrition Evidence of Malnutrition Exists Yes Malnutrition (severe): Chronic Evidenced By Suboptimal Energy Intake ( Severe),Weight Loss (Severe), Physical Changes (Severe) Clinical Problem Chronic Disease or Condition Related Malnutrition Etiology severe, related to COPD Signs/Symptoms as evidenced by 10.7lbs (11%) weight loss in 6 months, <75% PO intake of estimated energy needs for >1 month, and severe temporal and orbital fat and muscle loss. Status Active Problem Recommendation Dietitian Recommendations/Changes RD will liberalize diet to Regular ERIKA to optimize oral intakes. RD will order 118mL Ensure Compact with medpass 4x daily. Weight / BMI Weight Weight: 86 lb 0.002 oz Body Mass Index (BMI) 14.7 ABG / Lab / Microbiology Data Result Diagrams: 06/20/22 05:00 06/20/22 05:00 Laboratory: Laboratory Results - last 24 hr 06/20/22 05:00: WBC 9.8, RBC 3.92 L, Hgb 10.3 L, Hct 33.0 L, MCV 84.2, MCH 26.3 L, MCHC 31.2 L, RDW Std Deviation 52.4 H, RDW Coeff of Angie 16.8 H, Plt Count 427, MPV 10.7, Immature Gran % (Auto) 0.400, Neut % (Auto) 81.6 H, Lymph % (Auto) 5.1 L, [place] % (Auto) 12.7 H, Eos % (Auto) 0.1, Baso % (Auto) 0.1, Absolute Neuts (auto) 8.0 H, Absolute Lymphs (auto) 0.50 L, Nucleated RBC % 0, Differential Comment SCANNED 06/20/22 05:00: Sodium 135 L, Potassium 4.0, Chloride 97 L, Carbon Dioxide 32.0, Anion Gap 6, BUN 27 H, Creatinine 0.74, Estim Creat Clear Calc 46.67, Est GFR (MDRD) Af Amer 102, Est GFR (MDRD) Non-Af 84, BUN/Creatinine Ratio 36.6 H, Glucose 97, Calcium 8.8 Microbiology: Microbiology 06/18/22 07:50 Sputum, Expectorated/Coughed Gram Stain - Final 06/18/22 07:50 Sputum, Expectorated/Coughed Respiratory Culture - Final 06/18/22 11:10 Interface Orders Legionella Antigen - Final 06/18/22 11:10 Interface Orders Streptococcus pneumoniae Antigen (M - Final D/C Instructions Discharge Diet: 2000 mg Sodium Diet Call your doctor if you observe: Fever of 101 or Higher, Coldness, Increased Pain, Numbness or Tingling, Change in Color, Inability to urinate, Inability to have a bowel movement, Using more than 1 pad per hour, Shortness of breath, Dizziness, Fainting spells, Swelling in the ankles, Chest pain, Prolonged hiccupping, Increased palpitations (irregular heartbeat), Calf discomfort and Uncontrolled pain Meaningful Use Info Meaningful Use Diagnoses (Choose all that apply): None applicable Discharge Plan Admission Admit Date/Time: 06/17/22 16:17 Primary Reason for Your Visit: Acute hypoxic respiratory insufficiency. Echogenic pneumothorax Attending Provider: Adrian Mcmanus Primary Care Provider: Atul Garcia Consulting Providers: Bernard Mcguire ; Darrin Meredith ; Navi Peterson ; Mal Iniguez ; Vicki Sahu NP ; Nomi Bunn ; Bailey Mcelroy Discharge Orders/Prescriptions Prescriptions: New Deep Sea Nasal 0.65 % Aerosol,[place] 2 spray NASAL TID PRN PRN (Reason: NASAL DRYNESS) Qty: 0 0RF prednisone 10 mg tablets,dose pack See Taper PO DAILY Qty: 40 0RF Taper: Prednisone Taper 40 mg WITH BREAKFAST for 4 Days and 0 Hour 30 mg WITH BREAKFAST for 4 Days and 0 Hour 20 mg WITH BREAKFAST for 4 Days and 0 Hour 10 mg WITH BREAKFAST for 4 Days and 0 Hour Continued potassium chloride 10 mEq tablet extended release 30 meq PO BID levothyroxine 88 mcg tablet 88 mcg PO MOTUWETHFRSA Rx Instructions: one and one half tablet wednesday montelukast 10 mg tablet 10 mg PO DAILY vitamin B complex [B Complex-Vitamin B12] Tablet 1 tab PO DAILY bumetanide 1 mg tablet 1 mg PO DAILY Qty: 90 3RF aspirin 81 mg tablet,delayed release (DR/EC) 81 mg PO DAILY Qty: 90 3RF atorvastatin 40 mg tablet 40 mg PO QHS Qty: 90 3RF metoprolol tartrate 25 mg tablet 12.5 mg PO BID Qty: 120 3RF multivitamin 1 EACH tablet 1 ea PO DAILY Label Comments: SUPPLEMENT omeprazole 20 MG capsule 20 mg PO DAILY Label Comments: ACID REFLUX albuterol sulfate 1 INHALER inhaler 2 puff INHALATION Q4H PRN PRN (Reason: Bronchodialation) Label Comments: SHORTNESS OF BREATH lorazepam 0.5 MG tablet 0.5 mg PO BID PRN PRN (Reason: Anxiety) Label Comments: Anxiety ascorbic acid (vitamin C) 500 MG tablet,chewable 500 mg PO BIDCM Qty: 0 0RF Rx Instructions: Take with iron budesonide 180 mcg/actuation aerosol powdr breath activated 1 inh INHALATION BID levothyroxine 88 mcg tablet 132 mcg PO GEORGES Label Comments: TAKE 1 TABLET BY MOUTH ONCE DAILY EXCEPT WEDNESDAY TAKE 1&1/2 TABLET ON AN EMPTY STOMACH Mucinex 1,200 mg Tablet Extended Release 12hr 1,200 mg PO BID acetaminophen 500 mg Tablet 1,000 mg PO Q6H PRN (Reason: Pain) clopidogrel 75 mg tablet 75 mg PO DAILY Qty: 90 3RF colchicine 0.6 mg tablet 0.6 mg PO DAILY Qty: 30 11RF spironolactone 25 mg tablet 25 mg PO DAILY Qty: 90 3RF Referrals / Follow Up: Bernard Mcguire MD [Med Staff - Active Staff] - Within 2 Weeks Atul Garcia MD [Primary Care Provider] - [facility] appointment Disposition Disposition (needs filled in before D/C Order can be placed): Home, Self Care Charges/Coding Visit Charges Inpatient E&M: 74602 Disch Hosp
[2022-06-20] MEDS: Bumetanide 2 MG Tablet 1 MG PO (16:58)
[2022-06-20] MEDS: Atorvastatin Calcium 40 MG Tablet PO (20:05)
[2022-06-20] MEDS: Montelukast 10 MG Tablet PO (20:05)
[2022-06-20] MEDS: 0.9% Saline Lock 10 ML Syringe IV (20:06)
[2022-06-20] MEDS: LORazepam 0.5 MG Tablet PO (22:19)
[2022-06-21] VITALS (8 sets, daily range): BP systolic 113–120; BP diastolic 78–80; PULSE 92–110; RESP 18–20; TEMP 36.6–36.7; O2SAT 86–99
[2022-06-21] MEDS: Levothyroxine 88 MCG Tablet 132 MCG PO (06:06)
[2022-06-21 06:52] LABS: Absolute Lymphocyte Count 0.47 X10^3/uL (0.83-4.51); Basophil# 0.01 X10^3/uL; Basophil% 0.1 % (0-1); Eosinophil# 0.01 X10^3/uL; Eosinophils% 0.1 % (0-5); Hematocrit 34.7 % (37-47); Hemoglobin 10.9 g/dL (12.0-15.0); Lymphocyte # 0.47 X10^3/ul (0.83-4.51); Lymphocyte % 6.1 % (19-41); Mean Corp Hgb Conc 31.4 g/dL (32-36); Mean Corpuscular Hgb 26.2 pg (27.0-32.0); Mean Corpuscular Volume 83.4 fL (81-99); Mean Platelet Vol. 10.3 fl (6.2-12.0); Monocyte# 1.13 X10^3/uL; Monocyte% 14.7 % (0-10); NRBC Flagged by Analyzer 0 % (0-5); Neutrophil # 6.04 X10^3/uL (2.7-7.7); Neutrophil % 78.7 % (47-70); POSITIVE DIFFERENTIAL YES; Platelet Count 468 K/mm3 (150-450); RBC Distribution Width CV 16.8 % (11.6-14.6); RBC Distribution Width SD 51.8 fl (35.1-43.9); Red Blood Count 4.16 M/mm3 (4.2-5.4); White Blood Count 7.7 K/mm3 (4.4-11.0)
[2022-06-21] MEDS: Ipratropium/Albuterol Sulfate 3 ML AMPUL.NEB INHALATION ×3 (07:10→15:16)
[2022-06-21 07:12] LABS: Differential Indicated SCAN CRITERIA MET
[2022-06-21 07:15] LABS: Anion Gap 4 (5-15); BUN 26 mg/dL (7-18); BUN/Creat Ratio 44.2 RATIO (10-20); Chloride 95 mmol/L (98-107); Creatinine, Serum 0.59 mg/dL (0.55-1.02); EST Glomerular Filtration Rate 109 mL/min (>60); Est Glom Filt Rate - Afr Amer 132 mL/min (>60); Estimated Creatinine Clearance 58.54 ml/min; Glucose 87 mg/dL (74-106); Sodium Level 134 mmol/L (136-145)
[2022-06-21 07:16] LABS: Differential Comment SCANNED
[2022-06-21] MEDS: Vitamin B Comp W-C Capsule 1 CAP PO (08:18)
[2022-06-21] MEDS: predniSONE 20 MG Tablet 40 MG PO (08:19)
[2022-06-21] MEDS: Potassium Chloride Oral Tablet 10 MEQ 30 MEQ PO ×2 (08:19→17:04)
--- NOTE | 2022-06-21 08:43 | PN.CC_ITS ---
Assessment & Plan Assessment/Plan (1) Iatrogenic pneumothorax: (2) Restrictive pericarditis: (3) Syncope and collapse: PLAN: Plan RECOMMENDATIONS: 1. Attempt room air walking oximetry 2. Okay to discharge if patient is willing to go on supplemental oxygen 3. Patient can be off work until evaluated in the office 4. No chest tube at this time 5. Potential discharge later today with follow-up in our office in 7 to 10 days 6. Wean steroids over 12 to 14 days if discharge IMPRESSIONS: 1. Acute hypoxic respiratory insufficiency secondary to a 20% iatrogenic pneumothorax in the setting of reported COPD/bronchiectasis Patient reportedly does not require supplemental oxygen at baseline, but did saturate 80% on presentation. Clinical suspicion for multifactorial etiology with underlying lung disease, history of congestive heart failure and pneumothorax leading to current condition. X-ray shows no worsening of pneumothorax. Discontinue antibiotics. Wean steroids over 12 to 14 days. Pneumothorax is resolved on chest x-ray from yesterday. This does not need to be repeated. Clinical suspicion is patient has comorbidities leading to continued oxygen requirement such as pulmonary hypertension 2. Hypertension/hyperlipidemia/CAD/chronic diastolic CHF Patient typically followed by the heart group. Okay to continue with diuretics at this time. Patient is not showing any stigmata of acute heart failure from my perspective. Defer to hospitalist on involving cardiology, but I believe the patient is doing okay from my perspective. Review of the electronic medical record shows patient has a history of restrictive pericarditis. 3. Hypothyroidism/GERD/gout/advanced age/frailty Complicates care, management, recovery and prognosis. Okay to continue with baseline medications. We will need to watch renal function closely given diuretic therapy. Glucose is slightly elevated today, but we will hold on any basal insulin at this time Subjective Subjective Patient did well overnight. No acute issues were reported. Patient's discharge was held secondary to a need for 6 L nasal cannula with ambulation. Patient states she feels subjectively unchanged compared to yesterday. Objective Data Objective Data Vital Signs: Vital Signs Temp Pulse Resp BP Pulse Ox O2 Del Method O2 Flow Rate 36.7 C 92 18 113/80 99 Nasal Cannula 3 06/21/22 05:44 06/21/22 07:10 06/21/22 07:10 06/21/22 05:44 06/21/22 07:10 06/21/22 07:10 06/21/22 07:10 Oxygen Flow Rate (L/min) [ 5 AMBULATING with Oxygen #3] Oxygen Flow Rate (L/min) [ 4 AMBULATING with Oxygen #2] Oxygen Flow Rate (L/min) [ 3 AMBULATING with Oxygen #1] Oxygen Flow Rate (L/min) [At 3 REST with Oxygen] Oxygen Flow Rate (L/min) 3 Oxygen Delivery Method Nasal Cannula Weight: 39.009 kg Body Mass Index (BMI) 14.7 Intake & Output: Intake and Output for Last 24 Hours 06/19/22 06/20/22 06/21/22 23:59 23:59 23:59 Intake Total 1300 / 1300 650 / 650 Balance 1300 / 1300 650 / 650 Medical Nutrition Assessment Dietitian: Malnutrition Criteria Met Start: 06/18/22 14:11 Freq: Status: Active Protocol: Document 06/18/22 14:23 LO (Rec: 06/18/22 14:23 [id number]) Nutrition Malnutrition Evidence of Malnutrition Exists Yes Malnutrition (severe): Chronic Evidenced By Suboptimal Energy Intake ( Severe),Weight Loss (Severe), Physical Changes (Severe) Clinical Problem Chronic Disease or Condition Related Malnutrition Etiology severe, related to COPD Signs/Symptoms as evidenced by 10.7lbs (11%) weight loss in 6 months, <75% PO intake of estimated energy needs for >1 month, and severe temporal and orbital fat and muscle loss. Status Active Problem Recommendation Dietitian Recommendations/Changes RD will liberalize diet to Regular ERIKA to optimize oral intakes. RD will order 118mL Ensure Compact with medpass 4x daily. Lab / Micro Data Result Diagrams: 06/21/22 06:25 06/21/22 06:25 Labs: Laboratory Results - last 24 hr 06/21/22 06:25: WBC 7.7, RBC 4.16 L, Hgb 10.9 L, Hct 34.7 L, MCV 83.4, MCH 26.2 L, MCHC 31.4 L, RDW Std Deviation 51.8 H, RDW Coeff of Angie 16.8 H, Plt Count 468 H, MPV 10.3, Immature Gran % (Auto) 0.300, Neut % (Auto) 78.7 H, Lymph % (Auto) 6.1 L, [place] % (Auto) 14.7 H, Eos % (Auto) 0.1, Baso % (Auto) 0.1, Absolute Neuts (auto) 6.0, Absolute Lymphs (auto) 0.47 L, Nucleated RBC % 0, Differential Co mment SCANNED 06/21/22 06:25: Sodium 134 L, Potassium 4.0, Chloride 95 L, Carbon Dioxide 35.0 H, Anion Gap 4 L, BUN 26 H, Creatinine 0.59, Estim Creat Clear Calc 58.54, Est GFR (MDRD) Af Amer 132, Est GFR (MDRD) Non-Af 109, BUN/Creatinine Ratio 44.2 H, Glucose 87, Calcium 9.0 Micro: Microbiology 06/18/22 07:50 Sputum, Expectorated/Coughed Gram Stain - Final 06/18/22 07:50 Sputum, Expectorated/Coughed Respiratory Culture - Final 06/18/22 11:10 Interface Orders Legionella Antigen - Final 06/18/22 11:10 Interface Orders Streptococcus pneumoniae Antigen (M - Final Radiography Diagnostic Testing: Radiology Impression Chest X-Ray 06/20/22 05:05 IMPRESSION: No definite pneumothorax. Otherwise no significant change. Electronically Signed: Chaz Concepcion MD at 14:55 EDT , Physical Exam Const oriented x3 and no apparent distress General Appearance: frail; Negative for in distress HEENT normocephalic and head/scalp atraumatic; Negative for moist oral mucous membranes Eyes PERRL, EOMs intact bilaterally and conjunctivae normal Neck full ROM Lymph Lymphatic: no lymphadenopathy noted Resp Effort and Inspection: tachypneic and prolonged expiratory phase; Negative for actively coughing or uses accessory muscles Auscultation: diminished lung sounds; Negative for rales, rhonchi or wheezes Cardio regular rhythm, S1 normal heart sound, S2 normal heart sound, no murmurs, no rub, no gallops and no JVD Rate: tachycardic GI normal to inspection, nondistended, normoactive bowel sounds and soft to palpation Narrative: Mild CVA tenderness noted Extremity no clubbing, cyanosis or edema Skin no rashes or lesions noted Neuro oriented x3, CN's II-XII intact bilaterally and moves all extremities Psych cooperative and affect normal Charges/Coding Visit Charges Inpatient E&M: 77362 Subs Hosp L2
--- NOTE | 2022-06-21 09:00 | PCM.DC.SUM ---
Providers Date of Admission: 06/17/22 Date of Discharge: 06/21/22 Primary Care Physician: Dr. 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 He had chest x-ray done in the morning shows a small left pneumothorax and bilateral pleural effusion. Discussed with the electronics technician. On walking, pulse ox 78% on room air, 88% on 4 L and she required 6 L of oxygen for 91%. Currently on 5 L of oxygen at rest. -Strep pneumo and Legionella antigens negative -Sputum cultures pending continue antibiotics until cultures result and if negative will discontinue -Continue steroids -Continue aerosols -Pulmonary medicine following-appreciate input -Patient to establish with [place] pulmonary medicine after discharge History of recurrent pleural effusion -Patient to follow-up outpatient with pulmonary medicine after discharge Resident further determination of pleurodesis versus VATS as outpatient after recovery from pneumothorax as an outpatient. On diuretic Severe malnutrition -BMI 14.8 -Suspect pulmonary cachexia -Dietitian is following -Supplements were added -Would recommend outpatient supplements be ordered at the time of discharge COPD -History of tobacco abuse-remote -Restart inhalers on discharge -Continue current pulmonary toilet -Pulmonary medicine following CAD -Continue home aspirin Plavix -No current active disease -Continue home Bumex Hypothyroidism -Continue home levothyroxine Hypertension -Continue home metoprolol -Continue home Aldactone GERD -Continue PPI Hyperlipidemia -Continue home atorvastatin Chronic diastolic heart failure -Currently compensated -Continue home diuretics History of gout -No active issues History of tobacco abuse -Remote -Continue to encourage cessation DVT prophylaxis -Start subcu heparin CODE STATUS -Full code Medications at Discharge Home Medications albuterol sulfate 90 mcg/actuation aerosol inhaler 2 puff inhalation Q4H PRN PRN Bronchodialation 09/07/16 multivitamin 1 ea PO DAILY supplement 09/07/16 omeprazole 20 mg capsule,delayed release 20 mg PO DAILY GERD 09/07/16 lorazepam 0.5 mg tablet 0.5 mg PO BID PRN PRN Anxiety 09/26/16 ascorbic acid (vitamin C) 500 mg chewable tablet 500 mg PO BIDCM supplement ##0 06/20/20 budesonide 180 mcg/actuation breath activated powder inhaler 1 inh inhalation BID COPD 02/11/21 montelukast 10 mg tablet 10 mg PO DAILY 02/11/21 vitamin B complex (B Complex-Vitamin B12 tablet) 1 tab PO DAILY 02/11/21 aspirin 81 mg tablet,delayed release 81 mg PO DAILY #90 tabs 08/20/21 atorvastatin 40 mg tablet 40 mg PO QHS #90 tabs 08/20/21 bumetanide 1 mg tablet 1 mg PO DAILY water pill #90 tabs 08/20/21 clopidogrel 75 mg tablet 75 mg PO DAILY #90 tabs 08/21/21 colchicine 0.6 mg tablet 0.6 mg PO DAILY gout #30 tabs 01/14/22 levothyroxine 88 mcg tablet 88 mcg PO MOTUWETHFRSA 01/20/22 metoprolol tartrate 25 mg tablet 12.5 mg PO BID #120 tabs 01/20/22 potassium chloride 10 mEq tablet,extended release 30 meq PO BID 01/20/22 spironolactone 25 mg tablet 25 mg PO DAILY #90 tabs 03/23/22 acetaminophen 500 mg tablet 1,000 mg PO Q6H PRN Pain 06/17/22 guaifenesin 1,200 mg tablet, extended release 12 hr (Mucinex) 1,200 mg PO BID CONGESTION 06/17/22 levothyroxine 88 mcg tablet 132 mcg PO GEORGES 06/17/22 prednisone 10 mg tablets in a dose pack See Taper PO DAILY #40 tabs 06/20/22 sodium chloride 0.65 % nasal spray aerosol (Deep Sea Nasal) 2 spray NASAL TID PRN PRN NASAL DRYNESS #0 mL 06/20/22 Hospital Course Summary of Care Provided Hospital Course: This 67-year-old female came to ED for syncopal episode probably due to coughing fit which has gotten worse for last several days prior to admission.? No fever or sick.? Patient has history of bilateral pleural effusion left more than right for which she had thoracocentesis as an outpatient and developed 20% left pneumothorax and thereafter admitted. Acute respiratory insufficiency with acute hypoxia without respiratory failure secondary to iatrogenic pneumothorax: Patient had iatrogenic pneumothorax after routine periodic thoracocentesis.? He had chest x-ray done in the morning shows a small left pneumothorax and bilateral? pleural effusion.? Discussed with the electronics technician.? On walking, pulse ox 78% on room air, 88% on 4 L and she required 6 L of oxygen for 91%.? Currently on 5 L of oxygen at rest. -Strep pneumo and Legionella antigens negative -Sputum cultures pending ?continue antibiotics until cultures result and if negative will discontinue -Continue steroids -Continue aerosols 06/20-Patient is still requires? 5 L of oxygen, pulse ox 96%.? Discharge was held as patient pulse ox was 93% on 6 L of oxygen on ambulation, 88% on 3 L of oxygen with ambulation. 06/21: Today, pulse ox 98% on 5 L of oxygen on ambulation and 95% on 3 L of oxygen at rest. Patient is discharged on patient? is oxygen with follow-up in pulmonary clinic in 2 weeks. Chest x-ray finding discussed with the patient which did not show definite pneumothorax. Discussed with the electronics technician and nevin for discharge and follow-up in pulmonary clinic. Patient is discharged on extended dose of prednisone taper over 16 days. History of recurrent pleural effusion -Patient to follow-up outpatient with pulmonary medicine after discharge Resident further determination of pleurodesis versus VATS as outpatient after recovery from pneumothorax as an outpatient. On diuretic Severe malnutrition -BMI 14.8 -Suspect pulmonary cachexia -Dietitian is following -Supplements were added -Would recommend outpatient supplements be ordered at the time of discharge COPD -History of tobacco abuse-remote -Restart inhalers on discharge -Continue current pulmonary toilet -Pulmonary medicine following CAD -Continue home aspirin Plavix -No current active disease -Continue home Bumex Hypothyroidism -Continue home levothyroxine Hypertension -Continue home metoprolol -Continue home Aldactone GERD -Continue PPI Hyperlipidemia -Continue home atorvastatin Chronic diastolic heart failure -Currently compensated -Continue home diuretics History of gout -No active issues History of tobacco abuse -Remote -Continue to encourage cessation DVT prophylaxis -Start subcu heparin CODE STATUS -Full code Discharge medication reconciliation done.? Discharge follow-up instructions completed.? Discharge process discussed with the patient and? all questions were answered to patient's satisfaction.? Total time spent, exact 35 minutes on discharge meds reconciliation, examination,? coordination of care with nurses and ancillary staff, review of imaging and blood test and discussion with the patient? on follow-up instructions. Physical Exam Narrative Seen and examined. Chest x-ray 06/20 shows no definite pneumothorax. Chest x-ray initially reviewed and discussed with electronics technician. Oxygen requirement decreased to 3 L/min at rest and 5 L on ambulation. Physical exam General: Alert, Oriented x3, Cooperative HEENT: Atraumatic, PERRLA, EOMI, Normocephalic Oral: No Gingival or Mucosal Lesions/ Ulcerations Neck: Supple, No JVD, Negative Carotid Bruits Lungs: No dyspnea at rest. Air entry severely diminished in bilateral lung bases. No crepitation/rhonchi Cardiovascular: Regular rate, Regular Rhythm, Normal S1, Normal S2, No murmurs Abdomen: Bowel Sounds Present, Soft, Non Tender, Non-Distended : No renal angle tenderness. No suprapubic tenderness. Extremities: No edema, Capillary Refill Less than 3 Seconds Skin: No rashes, No breakdown Musculoskeletal: No Tenderness to Palpation of Joints or Extremities. Moderate muscle atrophy of extremities Neurological: Cranial nerves II-XII grossly intact, DTR 2+/4, muscle strength 4+/5 at major joints of LE Psych/Mental Status: Normal Affect, Appropriate. Medical Records Data Medical Nutrition Assessment Dietitian: Malnutrition Criteria Met Start: 06/18/22 14:11 Freq: Status: Active Protocol: Document 06/18/22 14:23 (Rec: 06/18/22 14:23 [id number]) Nutrition Malnutrition Evidence of Malnutrition Exists Yes Malnutrition (severe): Chronic Evidenced By Suboptimal Energy Intake ( Severe),Weight Loss (Severe), Physical Changes (Severe) Clinical Problem Chronic Disease or Condition Related Malnutrition Etiology severe, related to COPD Signs/Symptoms as evidenced by 10.7lbs (11%) weight loss in 6 months, <75% PO intake of estimated energy needs for >1 month, and severe temporal and orbital fat and muscle loss. Status Active Problem Recommendation Dietitian Recommendations/Changes RD will liberalize diet to Regular ERIKA to optimize oral intakes. RD will order 118mL Ensure Compact with medpass 4x daily. Weight / BMI Weight Weight: 86 lb 0.002 oz Body Mass Index (BMI) 14.7 ABG / Lab / Microbiology Data Result Diagrams: 06/21/22 06:25 06/21/22 06:25 Laboratory: Laboratory Results - last 24 hr 06/21/22 06:25: WBC 7.7, RBC 4.16 L, Hgb 10.9 L, Hct 34.7 L, MCV 83.4, MCH 26.2 L, MCHC 31.4 L, RDW Std Deviation 51.8 H, RDW Coeff of Angie 16.8 H, Plt Count 468 H, MPV 10.3, Immature Gran % (Auto) 0.300, Neut % (Auto) 78.7 H, Lymph % (Auto) 6.1 L, [place] % (Auto) 14.7 H, Eos % (Auto) 0.1, Baso % (Auto) 0.1, Absolute Neuts (auto) 6.0, Absolute Lymphs (auto) 0.47 L, Nucleated RBC % 0, Differential Comment SCANNED 06/21/22 06:25: Sodium 134 L, Potassium 4.0, Chloride 95 L, Carbon Dioxide 35.0 H, Anion Gap 4 L, BUN 26 H, Creatinine 0.59, Estim Creat Clear Calc 58.54, Est GFR (MDRD) Af Amer 132, Est GFR (MDRD) Non-Af 109, BUN/Creatinine Ratio 44.2 H, Glucose 87, Calcium 9.0 Microbiology: Microbiology 06/18/22 07:50 Sputum, Expectorated/Coughed Gram Stain - Final 06/18/22 07:50 Sputum, Expectorated/Coughed Respiratory Culture - Final 06/18/22 11:10 Interface Orders Legionella Antigen - Final 06/18/22 11:10 Interface Orders Streptococcus pneumoniae Antigen (M - Final Radiography Diagnostic Testing: Radiology Impression Chest X-Ray 06/20/22 05:05 IMPRESSION: No definite pneumothorax. Otherwise no significant change. Electronically Signed: Chaz Concepcion MD at 14:55 EDT , D/C Instructions Discharge Diet: 2000 mg Sodium Diet Call your doctor if you observe: Fever of 101 or Higher, Coldness, Increased Pain, Numbness or Tingling, Change in Color, Inability to urinate, Inability to have a bowel movement, Using more than 1 pad per hour, Shortness of breath, Dizziness, Fainting spells, Swelling in the ankles, Chest pain, Prolonged hiccupping, Increased palpitations (irregular heartbeat), Calf discomfort and Uncontrolled pain Meaningful Use Info Meaningful Use Diagnoses (Choose all that apply): None applicable Discharge Plan Admission Admit Date/Time: 06/17/22 16:17 Primary Reason for Your Visit: Acute hypoxic respiratory insufficiency. Echogenic pneumothorax Attending Provider: Adrian Mcmanus Primary Care Provider: Atul Garcia Consulting Providers: Bernard Mcguire ; Darrin Meredith ; Navi Peterson ; Mal Iniguez ; Vicki Sahu CONSTRUCTION TECHNICIAN ; Nomi Bunn ; Bailey Mcelroy Discharge Orders/Prescriptions Prescriptions: New Deep Sea Nasal 0.65 % Aerosol,[place] 2 spray NASAL TID PRN PRN (Reason: NASAL DRYNESS) Qty: 0 0RF prednisone 10 mg tablets,dose pack See Taper PO DAILY Qty: 40 0RF Taper: Prednisone Taper 40 mg WITH BREAKFAST for 4 Days and 0 Hour 30 mg WITH BREAKFAST for 4 Days and 0 Hour 20 mg WITH BREAKFAST for 4 Days and 0 Hour 10 mg WITH BREAKFAST for 4 Days and 0 Hour Continued potassium chloride 10 mEq tablet extended release 30 meq PO BID levothyroxine 88 mcg tablet 88 mcg PO MOTUWETHFRSA Rx Instructions: one and one half tablet wednesday montelukast 10 mg tablet 10 mg PO DAILY vitamin B complex [B Complex-Vitamin B12] Tablet 1 tab PO DAILY bumetanide 1 mg tablet 1 mg PO DAILY Qty: 90 3RF aspirin 81 mg tablet,delayed release (DR/EC) 81 mg PO DAILY Qty: 90 3RF atorvastatin 40 mg tablet 40 mg PO QHS Qty: 90 3RF metoprolol tartrate 25 mg tablet 12.5 mg PO BID Qty: 120 3RF multivitamin 1 EACH tablet 1 ea PO DAILY Label Comments: SUPPLEMENT omeprazole 20 MG capsule 20 mg PO DAILY Label Comments: ACID REFLUX albuterol sulfate 1 INHALER inhaler 2 puff INHALATION Q4H PRN PRN (Reason: Bronchodialation) Label Comments: SHORTNESS OF BREATH lorazepam 0.5 MG tablet 0.5 mg PO BID PRN PRN (Reason: Anxiety) Label Comments: Anxiety ascorbic acid (vitamin C) 500 MG tablet,chewable 500 mg PO BIDCM Qty: 0 0RF Rx Instructions: Take with iron budesonide 180 mcg/actuation aerosol powdr breath activated 1 inh INHALATION BID levothyroxine 88 mcg tablet 132 mcg PO GEORGES Label Comments: TAKE 1 TABLET BY MOUTH ONCE DAILY EXCEPT WEDNESDAY TAKE 1&1/2 TABLET ON AN EMPTY STOMACH Mucinex 1,200 mg Tablet Extended Release 12hr 1,200 mg PO BID acetaminophen 500 mg Tablet 1,000 mg PO Q6H PRN (Reason: Pain) clopidogrel 75 mg tablet 75 mg PO DAILY Qty: 90 3RF colchicine 0.6 mg tablet 0.6 mg PO DAILY Qty: 30 11RF spironolactone 25 mg tablet 25 mg PO DAILY Qty: 90 3RF Referrals / Follow Up: Bernard Mcguire MD [Med Staff - Active Staff] - Within 2 Weeks Atul Garcia MD [Primary Care Provider] - Keep [facility] appointment Disposition Disposition (needs filled in before D/C Order can be placed): Home, Self Care Charges/Coding Visit Charges Inpatient E&M: 22137 Disch Hosp
[2022-06-21] MEDS: Pantoprazole Sodium 20 MG Tablet PO (10:04)
[2022-06-21] MEDS: guaiFENesin 1,200 MG Tablet 1200 MG PO (10:04)
[2022-06-21] MEDS: Heparin Injection (Vial) 5,000 UNIT/ML VIAL 5000 UNIT SC (10:05)
[2022-06-21] MEDS: Colchicine 0.6 MG TABLET PO (10:06)
[2022-06-21] MEDS: Metoprolol Tartrate 25 MG Tablet 12.5 MG PO (10:06)
[2022-06-21] MEDS: Spironolactone 25 MG Tablet PO (10:06)
[2022-06-21] MEDS: Sodium Chloride 0.65% 1 SPRAY SPRAY.BTL 2 SPRAY NASAL (10:14)
[2022-06-21] MEDS: Bumetanide 2 MG Tablet 1 MG PO (12:45)
--- NOTE | 2022-06-21 12:56 | NURSING ---
1245 decreased O2 to 2L NC pox 91-92%. patient comfortable will monitor Homa Cao RN
== END 2022-06-21 18:40 | disposition home or self-care (01) | DRG 199 ==
LOC: ED 12:53 → MS3 17:06
PROVIDERS: Admitting Provider Family Medicine; Emergency Provider Emergency Medicine; PCP Family Medicine; Visit Provider Internal Medicine
DX: J95.811 Postprocedural pneumothorax (principal); E43 Unspecified severe protein-calorie malnutrition; I31.9 Disease of pericardium, unspecified; I50.32 Chronic diastolic (congestive) heart failure; J90 Pleural effusion, not elsewhere classified; Z68.1 Body mass index [BMI] 19.9 or less, adult; I27.21 Secondary pulmonary arterial hypertension; I11.0 Hypertensive heart disease with heart failure; J43.9 Emphysema, unspecified; J47.9 Bronchiectasis, uncomplicated; M10.9 Gout, unspecified; S00.81XA Abrasion of other part of head, initial encounter; K21.9 Gastro-esophageal reflux disease without esophagitis; E78.5 Hyperlipidemia, unspecified; I25.10 Atherosclerotic heart disease of native coronary artery without angina pectoris; E03.9 Hypothyroidism, unspecified; J40 Bronchitis, not specified as acute or chronic; I25.2 Old myocardial infarction; W01.190A Fall on same level from slipping, tripping and stumbling with subsequent striking against furniture, initial encounter; R73.9 Hyperglycemia, unspecified; Z23 Encounter for immunization; R09.02 Hypoxemia; R55 Syncope and collapse; Z79.02 Long term (current) use of antithrombotics/antiplatelets; Z79.51 Long term (current) use of inhaled steroids; Z79.899 Other long term (current) drug therapy; Z79.82 Long term (current) use of aspirin; Z87.891 Personal history of nicotine dependence; Z95.5 Presence of coronary angioplasty implant and graft
CPT/HCPCS: 36415; 70450; 71045; 71275; 80048; 85025; 87070; 87205; 87449; 94640; 97802; 99285; Q9967; 90686; A4216

== ENCOUNTER → 2022-06-17 | Outpatient (CLI) | payer BC, SELFPAY ==
--- NOTE | 2022-06-17 13:14 | US_ITS ---
PROCEDURE: ULTRASOUND GUIDED THORACENTESIS. DATE: 06/17/2022.. INDICATION: Female, 67 years old. Left pleural effusion. PHYSICIAN: Bert Hirsch M.D. PROCEDURE: The risks, benefits, and alternatives to the procedure were explained to the patient. The specific risks of bleeding, infection, and pneumothorax requiring chest tube insertion were discussed and accepted. Written informed consent was obtained. Ultrasonographic evaluation of the left lower pleural space was carried out. An adequate pocket was identified. The patient was placed in the sitting, upright position. The overlying skin was prepped and draped in sterile fashion. 1% lidocaine was administered subcutaneously for local anesthesia. Under ultrasound guidance, a 5 [place] thoracentesis needle/catheter system was advanced into the left posterior lower pleural fluid collection. Approximately 550 mL of stephen-colored fluid was drained. The patient asked us to stop the procedure before completion. The catheter was removed, and a sterile dressing was applied. A specimen was collected and sent to the laboratory for analysis, as requested by the referring clinician. The patient tolerated the procedure well. A chest x-ray was ordered. US/Thoracentesis W US IMPRESSION: Ultrasound-guided left thoracentesis. Electronically Signed: Bert Hirsch MD at 14:39 EDT ,
[2022-06-17 13:35] VITALS: BP 103/63; BP 110/72; BP 111/69; BP 118/75; PULSE 102; PULSE 103; PULSE 104; PULSE 92; RESP 20; RESP 22; TEMP 37.3; O2SAT 90; O2SAT 92; O2SAT 93; O2SAT 94
--- NOTE | 2022-06-17 14:00 | RAD_ITS ---
STUDY: X-RAY CHEST REASON FOR EXAM: Female, 67 years old. Pneumothorax -- immediately post thoracentesis TECHNIQUE: AP inspiration and expiration views. COMPARISON: Comparison is made with prior study done earlier today at 10:56 AM. FINDINGS: The patient is status post left thoracentesis. Residual pleural parenchymal changes at the lung bases. Normal size heart. Normal mediastinum and agapito. Normal visualized pulmonary arteries. There is atherosclerotic calcification of the aortic arch with tortuosity. RAD/Chest Insp/Exp 2 View IMPRESSION: Status post left thoracentesis. There is no evidence of pneumothorax. Electronically Signed: Bert Hirsch MD at 14:14 EDT ,
== END | disposition home or self-care (01) ==
LOC: US 13:13
PROVIDERS: PCP Family Medicine; Referring Provider Physician Assistant; Visit Provider Physician Assistant
DX: J90 Pleural effusion, not elsewhere classified (principal)
CPT/HCPCS: 32555; 71046

== ENCOUNTER 2022-07-14 11:11 | Outpatient (CLI) | payer BC, SELFPAY ==
[2022-07-14 11:30] VITALS: PULSE 112; PULSE 114; PULSE 115; PULSE 116; PULSE 117; O2SAT 90; O2SAT 91; O2SAT 92; O2SAT 93; O2SAT 95
--- NOTE | 2022-07-15 06:14 | CPS ---
Testing done by Lucia Mccloud RRT. Documentation confirmed by her to be accurate.
--- NOTE | 2022-07-16 10:10 | PCM.PSN.6M ---
PSN 6 Minute Walk Test 6 Minute Walk Test 6 Minute Walk Test: 6 Minute Walk Test PSN:6-Minute Walk Test Start: 07/15/22 06:10 Freq: Status: Discharge Protocol: [id number] Document 07/14/22 11:30 [email or web address] (Rec: 07/15/22 06:15 [email or web address] [email or web address]) 6 Minute Walk Test Date Performed 07/14/22 Time Performed 11:30 Height 5 ft Weight: 40.37 kg Weight in Pounds 89.[address]: Vicki Sahu BUILDING AND CONSTRUCTION MANAGER Assistive device used: Cane Pre-test Oxygen Delivery Method Room Air Pulse Ox (%) 93 Pulse Rate (60-100 beats/min) 114 H Dyspnea Trevin Scale (0-10) 1 Exertion Trevin Scale (6-20) 6 1st minute Oxygen Delivery Method Room Air Pulse Ox (%) 93 Pulse Rate (60-100 beats/min) 116 H 2nd minute Oxygen Delivery Method Room Air Pulse Ox (%) 91 Pulse Rate (60-100 beats/min) 116 H 3rd minute Oxygen Delivery Method Room Air Pulse Ox (%) 92 Pulse Rate (60-100 beats/min) 116 H 4th minute Oxygen Delivery Method Room Air Pulse Ox (%) 92 Pulse Rate (60-100 beats/min) 117 H 5th minute Oxygen Delivery Method Room Air Pulse Ox (%) 90 Pulse Rate (60-100 beats/min) 115 H 6th minute Oxygen Delivery Method Room Air Pulse Ox (%) 90 Pulse Rate (60-100 beats/min) 112 H Dyspnea Trevin Scale (0-10) 2 Exertion Trevin Scale (6-20) 11 Post-test Oxygen Delivery Method Room Air Pulse Ox (%) 95 Pulse Rate (60-100 beats/min) 112 H Full Laps Walked 5 Partial Lap, Number of Tiles Walked 26 Total Distance Walked (ft) 321 07/15/22 06:14 Cardiopulmonary Services by Yudi Arriaga Testing done by Lucia Mccloud TRIM TECHNICIAN. Documentation confirmed by her to be accurate. Initialized on 07/15/22 06:14 - END OF NOTE Interpretation Interpretation: The patient was able to ambulate 321 feet over the course of 6 minutes on room air with the assistance of a cane and no breaks. The patient was noted to have a lower baseline saturation of 93% and did desaturate as low as 90% with ambulation. Patient did have persistent tachycardia throughout testing with a peak heart rate of 117 beats per minute. These findings are consistent with a cardiopulmonary limitation exercise tolerance. Further delineation would require a complex exercise oximetry Recommendations Recommendations: Patient requires no supplemental oxygen at this time, but does need to be followed closely given level of desaturation
== END 2022-07-14 23:59 | disposition home or self-care (01) ==
LOC: PSN 11:15
PROVIDERS: PCP Family Medicine; Visit Provider Nurse Practitioner Acute Care
DX: R09.02 Hypoxemia (principal)
CPT/HCPCS: 94618

== ENCOUNTER 2022-07-15 13:53 | Outpatient (CLI) | payer BC, SELFPAY ==
--- NOTE | 2022-07-15 13:57 | ECHOD_ITS ---
Reason For Study: DYSPNEA Procedure This was a 2D Doppler, Color Flow transthoracic echocardiogram. Exam performed in department. Left Ventricle Normal LV size. Left ventricular systolic function is normal. The estimated ejection fraction is 60 %. No regional wall motion abnormalities noted. Right Ventricle Normal RV size. Normal systolic function. Atria Normal left atrium. Normal right atrium. Mitral Valve Normal mitral valve. Tricuspid Valve Normal tricuspid valve. Unable to estimate RV systolic pressure due to insufficient tricuspid regurgitant envelope. Aortic Valve Trisinus/trileaflet aortic valve. Pulmonic Valve Normal pulmonic valve. Great Vessels Normal aortic root. The pulmonary artery is normal size. Inferior vena cava collapse with respiration. Pericardium/Pleural Trivial pericardial effusion. Small left pleural effusion. MMode/2D Measurements & Calculations RVDd: 2.9 cm LAV(MOD-bp): 23.4 ml LVAd ap4: 15.3 cm2 LAV(MOD-bp) Indexed: 17.7 ml/m2 LVLd ap4: 7.0 cm LAV(MOD-sp2): 29.6 ml EDV(MOD-sp4): 27.4 ml LAV(MOD-sp4): 17.4 ml EDV(sp4-el): 28.5 ml LVAs ap4: 7.5 cm2 LVLs ap4: 5.2 cm ESV(MOD-sp4): 9.2 ml ESV(sp4-el): 9.2 ml EF(MOD-sp4): 66.3 % EF(sp4-el): 67.5 % SV(MOD-sp4): 18.2 ml SV(sp4-el): 19.2 ml LA A4 area: 10.3 cm2 LA dimension(2D): 2.9 cm RA A4 area: 11.2 cm2 Time Measurements MV dec time: 0.17 sec Doppler Measurements & Calculations MV E max sandro: 77.9 cm/sec Lat Peak E' Sandro: 9.8 cm/sec Med Peak E' Sandro: 10.2 cm/sec MV A max sandro: 103.9 cm/sec E/E' lat: 7.9 E/E' med: 7.7 MV E/A: 0.75 MV V2 max: 116.6 cm/sec MV dec slope: 451.8 cm/sec2 Ao V2 max: 130.3 cm/sec MV max P.4 mmHg Ao max P.8 mmHg MV V2 mean: 63.6 cm/sec Ao V2 mean: 96.8 cm/sec MV mean P.0 mmHg Ao mean P.2 mmHg MV V2 VTI: 23.2 cm Ao V2 VTI: 26.1 cm LV V1 max: 141.5 cm/sec PA V2 max: 62.3 cm/sec LV V1 max P.0 mmHg PA V2 mean: 45.7 cm/sec LV V1 mean P.2 mmHg LV V1 mean: 95.5 cm/sec LV V1 VTI: 27.4 cm ECHO/Echo Complete Interpretation Summary Normal LV size. Left ventricular systolic function is normal. The estimated ejection fraction is 60 %. Trivial pericardial effusion. Ordering Physician: Carlos Pulido Referring Physician: Carlos Pulido Performed By: Rachna Portillo RCS
== END 2022-07-15 23:59 | disposition home or self-care (01) ==
LOC: CVS 13:56
PROVIDERS: PCP Family Medicine; Referring Provider Internal Medicine Cardiovascular Disease; Visit Provider Internal Medicine Cardiovascular Disease
DX: R06.00 Dyspnea, unspecified (principal)
CPT/HCPCS: 93306

== ENCOUNTER → 2022-09-15 | Outpatient (CLI) | payer BC, SELFPAY ==
--- NOTE | 2022-09-15 11:06 | US_ITS ---
PROCEDURE: ULTRASOUND GUIDED THORACENTESIS. DATE: 09/15/2022. INDICATION: Female, 67 years old. Left pleural effusion. PHYSICIAN: Bert Hirsch M.D. PROCEDURE: The risks, benefits, and alternatives to the procedure were explained to the patient. The specific risks of bleeding, infection, and pneumothorax requiring chest tube insertion were discussed and accepted. Written informed consent was obtained. Ultrasonographic evaluation of the left lower pleural space was carried out. An adequate pocket was identified. The patient was placed in the sitting, upright position. The overlying skin was prepped and draped in sterile fashion. 1% lidocaine was administered subcutaneously for local anesthesia. Under ultrasound guidance, a 5 Mosotho thoracentesis needle/catheter system was advanced into the left posterior lower pleural fluid collection. Approximately 600 mL of stephen-colored fluid fluid was drained. The catheter was removed, and a sterile dressing was applied. The patient tolerated the procedure well. A chest x-ray was ordered. US/Thoracentesis W US IMPRESSION: Ultrasound-guided left thoracentesis. Electronically Signed: Bert Hirsch MD at 12:56 EST ,
[2022-09-15 12:11] VITALS: BP 101/64; BP 112/59; PULSE 83; PULSE 85; PULSE 89; RESP 20; TEMP 37.1; O2SAT 91; O2SAT 93; O2SAT 96
[2022-09-15] MEDS: Lidocaine 2% (20 ml mdv) 20 ML Vial INFILT (12:15)
--- NOTE | 2022-09-15 12:20 | RAD_ITS ---
STUDY: X-RAY CHEST REASON FOR EXAM: Female, 67 years old. Post thora TECHNIQUE: AP inspiration and expiration views. COMPARISON: Comparison is made with prior study dated 06/20/2022. FINDINGS: The patient is status post left thoracentesis. There is no evidence of pneumothorax. RAD/Chest Insp/Exp 2 View IMPRESSION: No evidence of pneumothorax on the post left thoracentesis images. Electronically Signed: Bert Hirsch MD at 12:35 EST ,
== END | disposition home or self-care (01) ==
LOC: US 11:04
PROVIDERS: PCP Family Medicine; Referring Provider Nurse Practitioner Acute Care; Visit Provider Nurse Practitioner Acute Care
DX: J90 Pleural effusion, not elsewhere classified (principal)
CPT/HCPCS: 32555; 71046

== ENCOUNTER 2022-10-19 12:36 | Emergency (ER) | payer BC, SELFPAY ==
[2022-10-19 12:38] VITALS: BP 136/77; PULSE 109; RESP 18; TEMP 36.6; O2SAT 88
--- NOTE | 2022-10-19 13:19 | RAD_ITS ---
STUDY: X-RAY CHEST REASON FOR EXAM: Female, 67 years old. Chest pain TECHNIQUE: Single AP portable view of the chest. COMPARISON: Comparison is made with prior study dated 09/15/2022. FINDINGS: EKG electrodes are seen. Bilateral pleural effusions with bibasilar atelectasis and/or infiltrates worse on the left side. These have progressed as compared to prior study. Normal size heart. Normal mediastinum and agapito. Normal visualized pulmonary arteries. There is atherosclerotic calcification of the aortic arch with tortuosity. There is a mild dextroscoliosis of the thoracic spine. Normal visualized ribs, clavicles, and shoulders. There is no demonstrated abnormality of the visualized soft tissue structures of the upper abdomen. RAD/Chest 1 View (Portable) IMPRESSION: Increasing bilateral pleural effusions with bibasilar atelectasis and/or infiltrates worse at the left lung base. Electronically Signed: Bert Hirsch MD at 14:04 EST ,
--- NOTE | 2022-10-19 13:26 | EDS_ITS ---
HPI History of Present Illness Chief Complaint: Chest Pain Informant: patient and family Onset/Context/Timing Onset: Days Activity at onset: gradual Timing: Intermittent Quality: Positive for Indigestion Location: - (Epigastric.) Current Severity: Mild Maximum Severity: Mild Worsened By: Eating and - (Worsened by eating, drinking or ingesting pills. But able to swallow.); Not Worsened By Exertion, Movement of Arm or Movement of Torso Relieved By: Nothing Associated Symptoms: Negative for Nausea, Vomiting, Diaphoresis, Dyspnea, Cough, Fever, Lightheadedness, Acid Reflux or Palpitations Narrative Narrative: 67-year-old female. History of COPD on oxygen at home as needed. Prior GA with coronary artery disease and 1 stent. Patient states she has had chest discomfort intermittently the last several weeks. Worse with eating and drinking. Really does not have it associated with exertion. No worsening of her shortness of breath. Says she can swallow but notices difficulty swallowing pills. Not so much with food. She cannot remember any recent upper endoscopy. No history of DVT or PE. No hemoptysis. No leg pain or swelling. No recent travel, surgery or immobilization. Pain is not pleuritic. Prior Similar Symptoms: Yes Recent Illness/Hospitalization: No CVD Risk Factors: Negative for Hypertension or Diabetes PE Risk Factors: Negative for Recent Travel/Surgery, Recent Immobilization, Prior DVT or PE, Cancer or OCP + Smoking + >/=35 TAD Risk Factors: Negative for Marfan's Syndrome [facility] Medical History Angioedema Anxiety Atherosclerotic heart disease of [place] coronary artery without angina pectoris Bilateral pleural effusion Bronchiectasis Contusion of right lower leg, initial encounter COPD (chronic obstructive pulmonary disease) Edema of right lower extremity Elevated transaminase level Former smoker GERD (gastroesophageal reflux disease) History of non-ST elevation myocardial infarction (NSTEMI) (06/18/20) Hypothyroidism Hypoxia Iatrogenic pneumothorax (06/17/22) Iron deficiency anemia Laceration without foreign body, right lower leg, initial encounter Leg wound, right Non-healing ulcer of ankle with fat layer exposed Pericardial effusion Pneumothorax Recurrent pleural effusion Restrictive pericarditis Secondary pulmonary arterial hypertension Severe malnutrition Syncope (06/17/22) Ulcer of right lower extremity with fat layer exposed Home Medications albuterol sulfate 90 mcg/actuation aerosol inhaler 2 puff inhalation Q4H PRN PRN Bronchodialation 01/16/17 [History Last Taken 06/17/22] omeprazole 20 mg capsule,delayed release 20 mg PO DAILY GERD 09/07/16 [History Last Taken 06/17/22] lorazepam 0.5 mg tablet 0.5 mg PO BID PRN PRN Anxiety 09/26/16 [History Last Taken 06/17/22] ascorbic acid (vitamin C) 500 mg chewable tablet 500 mg PO BIDCM supplement ##0 06/20/20 [Rx Last Taken 06/16/22] budesonide 180 mcg/actuation breath activated powder inhaler 1 inh inhalation BID COPD 02/11/21 [History Last Taken 06/17/22] montelukast 10 mg tablet 10 mg PO DAILY 02/11/21 [History Last Taken 06/16/22] vitamin B complex (B Complex-Vitamin B12 tablet) 1 tab PO DAILY 02/11/21 [History Last Taken 06/17/22] colchicine 0.6 mg tablet 0.6 mg PO DAILY gout #30 tabs 01/14/22 [Rx Last Taken 06/16/22] levothyroxine 88 mcg tablet 88 mcg PO MOTUWETHFRSA 01/20/22 [History Last Taken 06/17/22] metoprolol tartrate 25 mg tablet 12.5 mg PO BID #120 tabs 01/20/22 [Rx Last Taken 06/17/22] potassium chloride 10 mEq tablet,extended release 30 meq PO BID 01/20/22 [History Last Taken 06/17/22] spironolactone 25 mg tablet 25 mg PO DAILY #90 tabs 03/23/22 [Rx Last Taken 06/16/22] acetaminophen 500 mg tablet 1,000 mg PO Q6H PRN Pain 06/17/22 [History Last Take n 06/16/22] guaifenesin 1,200 mg tablet, extended release 12 hr (Mucinex) 1,200 mg PO BID CONGESTION 06/17/22 [History Last Taken 06/17/22] levothyroxine 88 mcg tablet 132 mcg PO GEORGES 06/17/22 [History Last Taken 06/14/22] sodium chloride 0.65 % nasal spray aerosol (Deep Sea Nasal) 2 spray NASAL TID PRN PRN NASAL DRYNESS #0 mL 06/20/22 [Rx Last Taken Unknown] ipratropium 20 mcg-albuterol 100 mcg/actuation mist for inhalation 1 puff inhalation Q4H #4 grams 07/08/22 [Rx Last Taken Unknown] multivitamin 1 tab PO DAILY supplement 07/08/22 [History Last Taken Unknown] aspirin 81 mg tablet,delayed release 81 mg PO DAILY #90 tabs 09/01/22 [Rx Last Taken Unknown] atorvastatin 40 mg tablet 40 mg PO QHS #90 tabs 09/01/22 [Rx Last Taken Unknown] clopidogrel 75 mg tablet 75 mg PO DAILY #90 tabs 09/01/22 [Rx Last Taken Unknown] bumetanide 1 mg tablet 1 mg PO DAILY water pill #90 tabs 09/21/22 [Rx Last Taken Unknown] alendronate 70 mg tablet tablet PO 10/01/22 [History Last Taken Unknown] pantoprazole 20 mg tablet,delayed release (Protonix) 20 mg PO DAILY reflux #40 tabs 10/19/22 [Rx Last Taken Unknown] Allergy/AdvReac Type Severity Reaction Status Date / Time amoxicillin [From Augmentin] Allergy Rash Verified 10/19/22 12:38 clavulanic acid Allergy Rash Verified 10/19/22 12:38 [From Augmentin] doxycycline Allergy Rash Verified 10/19/22 12:38 tiotropium AdvReac Unknown PT UNSURE Verified 10/19/22 12:38 OF REACTION budesonide [From Symbicort] AdvReac Other Verified 10/19/22 12:38 bumetanide AdvReac PT UNSURE Verified 10/19/22 12:38 OF REACTION cefdinir AdvReac Bleeding Verified 10/19/22 12:38 clindamycin AdvReac Abd Verified 10/19/22 12:38 cramps/diarrhea fluticasone [From Flonase] AdvReac HEADACHES Verified 10/19/22 12:38 formoterol [From Symbicort] AdvReac HIGH Verified 10/19/22 12:38 FEELING furosemide AdvReac NEEDS Verified 10/19/22 12:38 FOLLOW-UP spironolactone AdvReac NEEDS Verified 10/19/22 12:38 FOLLOW-UP umeclidinium AdvReac Shortness Verified 10/19/22 12:38 of breath Family History Mother Colon cancer Father Heart disease Surgical History History of coronary artery stent placement (06/18/20) History of right and left heart catheterization (05/01/20) History of thoracentesis (06/17/22) Social History Smoking Status: Former smoker alcohol intake: current alcohol intake frequency: holidays/special occasions only substance use type: does not use caffeine: Yes Type: coffee Number of servings: 1 ROS ROS ED ROS Narrative Chest pain primarily with swallowing. Not exertional. Review of Systems ROS Unobtainable: Denies due to encephalopathy Constitutional Constitutional ED: Denies chills or fever(s) Eyes Eyes: Reports none ENT ENT ED: Denies ear pain Cardiovascular Cardiovascular: Reports as per HPI and chest pain; Denies palpitations or racing heartbeat Respiratory/Chest Respiratory/Chest: Denies cough or dyspnea Gastrointestinal Gastrointestinal: Denies abdominal pain, constipation, diarrhea, melena, nausea or vomiting Genitourinary Genitourinary ED: Denies dysuria Musculoskeletal Musculoskeletal: Denies arthralgias Integumentary Denies abscess Neurologic Neurologic: Denies headache(s) Psychiatric Psychiatric: Denies anxiety Endocrine Endocrinology: Denies cold intolerance Hematologic/Lymphatic Hematologic/Lymphatic: Denies easy bleeding or easy bruising Allergic/Immunologic Allergic/Immunologic ED: Denies mouth swelling or tongue swelling EXAM Physical Exam Narrative Exam Narrative: 67-year-old female vital signs are stable she is hypoxic at 80% she has stage III COPD is on oxygen and has pleural effusions in the past. She is in no respiratory distress. H EENT exam unremarkable. Neck nontender. Lungs clear to auscultation bilaterally. Heart tachycardic rate about 105 no murmur. Chest wall nontender. Abdomen soft nontender. No epigastric pain. Moving all 4 extremities. Calves are nontender that edema or cords. Neurologically she is awake and alert with no focal motor deficits. Const Vital Signs: 10/19/22 12:38 10/19/22 13:12 Temperature 97.8 F Temperature Source Temporal Pulse Rate 109 H Respiratory Rate 18 Respiratory Effort Normal Blood Pressure 136/77 H Blood Pressure Mean 96 Pulse Ox 88 Oxygen Delivery Method Room Air Positive well nourished and well developed; Negative for obese, cachectic, contractures or unkempt General Appearance ED: well developed and NAD; Negative for unkempt, cachectic, contractures or pallor Nutritional Appearance: Negative for cachectic or obese HEENT Reports moist mucous membranes normocephalic and atraumatic; Negative for trauma or tenderness Eyes PERRL and EOMs intact bilaterally General Eye ED: Negative for pale conjunctiva, scleral icterus or other Neck no lymphadenopathy, supple and no JVD General: Negative for tenderness Chest Wall inspection of chest normal and palpation of chest normal Chest: Negative for tenderness Resp normal respiratory effort and clear to auscultation bilaterally Effort and Inspection: Negative for respiratory distress Auscultation: Negative for rales, rhonchi or wheezes Cardio regular rhythm, S1 normal heart sound, S2 normal heart sound and no murmurs; Negative for regular rate Rate: tachycardic Peripheral Pulses: pulses 2+ throughout GI normal to inspection, nondistended, normoactive bowel sounds, soft to palpation, non-tender, non-distended and no masses Auscultation: Negative for hyperactive bowel sounds Palpation: Negative for splenomegaly or mass Back/Spine no CVA tenderness General Back: Negative for CVA tenderness Cervical Spine: Negative for cervical spine tenderness Extremity normal to inspection General Extremety ED: Negative for edema or pulses abnormal General Extremity: Negative for edema or pulses abnormal Neuro oriented x3 and CN's II-XII intact bilaterally Sensorium / Orientation: awake, alert, oriented to person, oriented to place and oriented to time; Negative for confused, lethargic or stuporous Psych mental status grossly normal Appearance: Negative for unkempt Attitude: No agitated Mood & Affect: Negative for depressed, anxious or tearful Skin no rashes or lesions noted and no wounds General Skin Exam: Negative for jaundice or pallor Rashes: No rashes noted Trauma: Negative for abrasion or laceration MDM MDM MDM Narrative Medical decision making narrative: 67-year-old atypical chest pain primarily with swallowing medications. Most likely secondary to reflux. Or other GI issues. Clinically I do not think it is cardiac but she will undergo a cardiac work-up because she had an atypical presentation of GA at 1 time. She will be given a GI cocktail and Protonix to see if it relieves her symptoms. Repeat exam patient is doing well at 2:50 PM. She had improvement of her symptoms with a GI cocktail and the Protonix. Clinically I think this is GI related. We discussed all of her lab and test results. She has improvement with decreasing hemoglobin. She has had the pleural effusions before. She will be discharged home with a prescription for Protonix 40 mg a day for 2 weeks and then 20 mg a day. Follow-up with her primary care physician she may need upper endoscopy for further evaluation and to make sure she is not developing esophageal narrowing. Patient and family are comfortable with the plan. She will be discharged home. Lab Data Attestation: I reviewed the patient's lab results. Lab results narrative: CBC shows normal white count 7.6. H&H 9.8 and 33. Platelets 444. Electrolytes show a gap of 7 normal BUN of 16 creatinine 0.67. Glucose 91. Liver enzymes normal. Troponin is normal at 5. Lipase is only 54. Patient's hemoglobins have been trending down slowly over the last 5 months. This is along her baseline at 9.8 she has been running around 10-10.5. Labs: Laboratory Results - last 24 hr 10/19/22 10/19/22 10/19/22 13:00 13:00 13:00 WBC 7.6 RBC 4.47 Hgb 9.8 L Hct 33.7 L MCV 75.4 L MCH 21.9 L MCHC 29.1 L RDW Std Deviation 53.0 H RDW Coeff of Angie 19.7 H Plt Count 444 MPV 10.6 Immature Gran % (Auto) 0.300 Neut % (Auto) 77.5 H Lymph % (Auto) 7.0 L Starke % (Auto) 9.5 Eos % (Auto) 4.5 Baso % (Auto) 1.2 H Absolute Neuts (auto) 5.9 Absolute Lymphs (auto) 0.53 L Nucleated RBC % 0 Hypochromasia 1+ Sodium 140 Potassium 3.7 Chloride 106 Carbon Dioxide 27.0 Anion Gap 7 BUN 16 Creatinine 0.67 Estim Creat Clear Calc 58.15 Est GFR (MDRD) Af Amer 114 Est GFR (MDRD) Non-Af 94 BUN/Creatinine Ratio 23.9 H Glucose 91 Calcium 9.0 Total Bilirubin 0.30 Direct Bilirubin 0.10 AST 20 ALT 19 Alkaline Phosphatase 95 Troponin I High Sens 5 Total Protein 7.2 Albumin 3.4 Globulin 3.8 Lipase 54 L Radiography Chest X-Ray - ED: 1 View, Read by ED Physician, Heart, Mediastinum, Bony Structures and Chronic Changes Diagnostic Testing: Clinical Impression(s) from Imaging Studies Chest X-Ray 10/19/22 13:19 IMPRESSION: Increasing bilateral pleural effusions with bibasilar atelectasis and/or infiltrates worse at the left lung base. Electronically Signed: Bert Hirsch MD at 14:04 EST , X-ray, portable, single view, interpreted both by myself and the radiologist shows bilateral pleural effusions left greater than right. Chronic changes. He thinks Rhythm Strip Rhythm Strip: Sinus Tach Rate: 102 Ectopy: None EKG Initial EKG: Attestation: I personally reviewed and interpreted this EKG as follows: Interpretation: No Acute Injury Pattern and Sinus Tachycardia Comments: Sinus tachycardia rate of 102. No acute signs of GA or ischemia. No significant change from an EKG from September 2020. Prior EKG tracings: available for review Prior: Unchanged Discharge Plan Triage Chief Complaint: Chest Pain Other Complaint: Abd Pain Shortness of Breath ED Provider: Fab Roberts Dx/Rx/DC Orders Clinical Impression: Acid reflux, Chronic anemia, History of pleural effusion, History of GA (myocardial infarction), History of COPD Instructions: ED GERD (Adult) Prescriptions: New pantoprazole [Protonix] 20 mg tablet,delayed release (DR/EC) 20 mg PO DAILY Qty: 40 0RF Rx Instructions: For the first 10 days take the Protonix 40 mg or 2 pills once a day. After the first 10 days take 1 pill a day. This should improve your symptoms. No Action potassium chloride 10 mEq tablet extended release 30 meq PO BID levothyroxine 88 mcg tablet 88 mcg PO MOTUWETHFRSA Rx Instructions: one and one half tablet wednesday montelukast 10 mg tablet 10 mg PO DAILY vitamin B complex [B Complex-Vitamin B12] Tablet 1 tab PO DAILY metoprolol tartrate 25 mg tablet 12.5 mg PO BID Qty: 120 3RF ipratropium-albuterol 20-100 mcg/actuation mist 1 puff inhalation Q4H Qty: 4 11RF alendronate 70 mg tablet PO omeprazole 20 MG capsule 20 mg PO DAILY Label Comments: ACID REFLUX albuterol sulfate 1 INHALER inhaler 2 puff INHALATION Q4H PRN PRN (Reason: Bronchodialation) Label Comments: SHORTNESS OF BREATH multivitamin Tablet 1 tab PO DAILY Label Comments: SUPPLEMENT lorazepam 0.5 MG tablet 0.5 mg PO BID PRN PRN (Reason: Anxiety) Label Comments: Anxiety ascorbic acid (vitamin C) 500 MG tablet,chewable 500 mg PO BIDCM Qty: 0 0RF Rx Instructions: Take with iron budesonide 180 mcg/actuation aerosol powdr breath activated 1 inh INHALATION BID levothyroxine 88 mcg tablet 132 mcg PO GEORGES Label Comments: TAKE 1 TABLET BY MOUTH ONCE DAILY EXCEPT WEDNESDAY TAKE 1&1/2 TABLET ON AN EMPTY STOMACH Mucinex 1,200 mg Tablet Extended Release 12hr 1,200 mg PO BID acetaminophen 500 mg Tablet 1,000 mg PO Q6H PRN (Reason: Pain) Deep Sea Nasal 0.65 % Aerosol,[place] 2 spray NASAL TID PRN PRN (Reason: NASAL DRYNESS) Qty: 0 0RF colchicine 0.6 mg tablet 0.6 mg PO DAILY Qty: 30 11RF spironolactone 25 mg tablet 25 mg PO DAILY Qty: 90 3RF atorvastatin 40 mg tablet 40 mg PO QHS Qty: 90 3RF aspirin 81 mg tablet,delayed release (DR/EC) 81 mg PO DAILY Qty: 90 3RF clopidogrel 75 mg tablet 75 mg PO DAILY Qty: 90 3RF bumetanide 1 mg tablet 1 mg PO DAILY Qty: 90 3RF Primary Care Provider: Atul Garcia Referrals: Atul Garcia MD [Primary Care Provider] - As soon as possible Activity Restrictions/Additional Instructions: Follow-up with your primary care physician. Chest x-ray your blood count is slowly getting lower today your hemoglobin was 9.8. They should recheck that in several moves. Today I I think the discomfort and trouble swallowing is most likely from reflux but could also be from narrowing of your lower esophagus. The Protonix for that. Also you may or may not need an upper scope to evaluate for reflux and/or esophageal narrowing. Protonic 2 pills or 40 mg once a day for 10 days and then 20 mg and after that. If it works well for a your doctor evaluated another prescription for it. Disposition Disposition: Home, Self Care
--- NOTE | 2022-10-19 13:30 | EKG12_ITS ---
Test Reason : Blood Pressure : / mmHG Vent. Rate : 102 BPM Atrial Rate : 102 BPM P-R Int : 118 ms QRS Dur : 064 ms QT Int : 340 ms P-R-T Axes : 050 010 023 degrees QTc Int : 443 ms Sinus tachycardia Possible Inferior infarct , age undetermined Abnormal ECG Confirmed by NABEEL WELCH, RAJESH ([id number]), story editor LIV HOPKINS ([id number]) on 10/20/2022 9:13:28 AM Referred By: TONY Confirmed By:RAJESH LEES MD
[2022-10-19] MEDS: Mag Hydrox/Al Hydrox/Simeth 30 ML UDC PO (13:41)
[2022-10-19] MEDS: Pantoprazole Sodium 40 MG Tablet PO (13:41)
[2022-10-19 13:44] LABS: Absolute Lymphocyte Count 0.53 X10^3/uL (0.83-4.51); Absolute Neutrophil Count 5.9 X10^3/uL (2.0-7.7); Basophil# 0.09 X10^3/uL; Basophil% 1.2 % (0-1); Differential Indicated SCAN CRITERIA MET; Eosinophil# 0.34 X10^3/uL; Eosinophils% 4.5 % (0-5); Hematocrit 33.7 % (37-47); Hemoglobin 9.8 g/dL (12.0-15.0); Lymphocyte # 0.53 X10^3/ul (0.83-4.51); Mean Corp Hgb Conc 29.1 g/dL (32-36); Mean Corpuscular Hgb 21.9 pg (27.0-32.0); Mean Corpuscular Volume 75.4 fL (81-99); Mean Platelet Vol. 10.6 fl (6.2-12.0); Monocyte# 0.72 X10^3/uL; Monocyte% 9.5 % (0-10); NRBC Flagged by Analyzer 0 % (0-5); Neutrophil # 5.86 X10^3/uL (2.7-7.7); Neutrophil % 77.5 % (47-70); POSITIVE DIFFERENTIAL YES; Platelet Count 444 K/mm3 (150-450); RBC Distribution Width CV 19.7 % (11.6-14.6); Red Blood Count 4.47 M/mm3 (4.2-5.4); White Blood Count 7.6 K/mm3 (4.4-11.0)
[2022-10-19 13:51] VITALS: BMI 18.9
[2022-10-19 14:00] LABS: Anion Gap 7 (5-15); BUN 16 mg/dL (7-18); BUN/Creat Ratio 23.9 RATIO (10-20); Chloride 106 mmol/L (98-107); Creatinine, Serum 0.67 mg/dL (0.55-1.02); EST Glomerular Filtration Rate 94 mL/min (>60); Est Glom Filt Rate - Afr Amer 114 mL/min (>60); Estimated Creatinine Clearance 58.15 ml/min; Glucose 91 mg/dL (74-106); Lipase 54 U/L (73-393); Potassium 3.7 mmol/L (3.5-5.1); Sodium Level 140 mmol/L (136-145); Troponin-I HS (w/2H Reflex) 5 pg/mL (3.0-54.0)
[2022-10-19 14:03] LABS: AST(SGOT) 20 U/L (15-37); Alanine Aminotransfer ALT/SGPT 19 U/L (13-56); Albumin, Serum 3.4 g/dL (3.2-5.0); Alkaline Phosphatase 95 U/L (45-117); Globulin 3.8 g/dL (2.2-4.2); Protein, Total 7.2 g/dL (6.4-8.2)
[2022-10-19 14:15] LABS: Hypochromasia 1+
[2022-10-19 15:25] VITALS: BP 108/77; PULSE 93; RESP 16; O2SAT 98
[2022-10-19 15:41] LABS: Reflex Troponin-HS? (from REC) Y
== END 2022-10-19 15:27 | disposition home or self-care (01) ==
PROVIDERS: Emergency Provider Emergency Medicine; PCP Family Medicine; Visit Provider Emergency Medicine
DX: K21.9 Gastro-esophageal reflux disease without esophagitis (principal); J44.9 Chronic obstructive pulmonary disease, unspecified; Z87.891 Personal history of nicotine dependence; R10.9 Unspecified abdominal pain; D64.9 Anemia, unspecified; I25.10 Atherosclerotic heart disease of native coronary artery without angina pectoris; R07.9 Chest pain, unspecified; R06.02 Shortness of breath; I25.2 Old myocardial infarction; Z87.09 Personal history of other diseases of the respiratory system
CPT/HCPCS: 71045; 80048; 80076; 83690; 84484; 85025; 93005; 99285; A4216

== ENCOUNTER 2022-10-26 12:30 | Outpatient (RCR) | payer BC, OTHER, SELFPAY ==
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
--- NOTE | 2022-08-27 14:29 | HP.PTREVAL ---
Alivia Liriano, DEQUAN-C, It has been my pleasure to treat LOUISE ROSALES over the last 9 visits for LE Weakness and Contusion to Right Leg. Please see the progress note below for an update on the physical therapy plan of care! Subjective: Patient reports that she feels that she is getting better. She feels that she is getting stronger and she can stand but its still painful. She stood for 2 hours and she was a 6-7/10 in the thighs and where the wound is. Feels like the tissue around the wound it stretching. She reports that if she is moving she is better. Some days are better than others. Objective/Function: Posture: FH, RS- can correct with verbal cues but does not maintain. Gait: no deviation noted but she does have a slow sergio and she tires quickly- poor endurance- does turn toes out on the right LE as she fatigues HR/TR: able with UE A. SLS: 12 sec. Sit to Stand: no UE . Stairs: reports asc/desc 8 recip with 1 HR. Palpation: mild tenderness to right lower leg with gentle palpation. Girth: 6 above patella: Right: 38.5 cm Left: 40 cm. ROM: WFL in all planes. Strength: Core: fair, Hip: 4/5, Knee: 4+/5 quad set visible but not strong- SLR: no lag. Flex: HS: moderate Gastroc: moderate Quad: moderate Plan Plan: 08/27/21: Hold- pt to reach out for new C9- she would be appropriate to continue towards goals and increase proprioception and endurance. Cont per POC to help increase ROM, strength and endurance to help assist in ADL tolerance. Balance/Gait/Functional tests - Balance/Special Test Scores Lower Extremity Functional Score: 39 Goals Goal 1:: Patient will be I with HEP and progression Goal Time Frame: 4-6 Weeks Goal Progress: Progressing Goal 2:: Patient will asc/desc 8 stairs recip with 1 HR Goal Time Frame: 4-6 Weeks Goal Progress: Progressing Goal 3:: Patient will ambulate >300 feet with a normalized gait pattern Goal Time Frame: 4-6 Weeks Goal Progress: Progressing Goal 4:: Patient will have equal girth 6 above Goal Time Frame: 4-6 Weeks Goal Progress: Progressing Goal 5:: Patient will report 80% improvement Goal Time Frame: 4-6 Weeks Goal Progress: Progressing Anticipated Interventions Patient/Client Instruction: Educate patient on: Benefits of Fitness Program Therapeutic Exercise to Include: Strength training, Endurance training, Balance training, Coordination, Agility training, Body mechanics, Postural training, Flexibilty training, Gait and locomotor training, Neuromotor development, Dynamic Lumbar Stabilization Please do not hesitate to contact me at [phone] by phone or if you have questions or concerns regarding this new plan of care! Sincerely, EDVIN BallesterosT
--- NOTE | 2022-10-14 10:29 | HP.PTREVAL ---
Alivia Liriano, DEQUAN-C, It has been my pleasure to treat LOUISE ROSALES over the last 10 visits for LE Weakness and Contusion to Right Leg. Please see the progress note below for an update on the physical therapy plan of care! Subjective: Patient reports that she feels like this all went backwards very quick even if she tried to keep up with some of it at home. She is standing at work but it hurts. By the end of the day she feels that she is going to fall. She is working 7.5 hour shifts but is working talking about cutting back. She has not had any falls. She has been doing sit to stands at home and doing some counter exercises. At the end of the last PT session she felt comfortable stepping on up the stools at work but not anymore. She does not have pain its more a weakness- as soon as she puts her compression stockings and shoes her right leg feels almost tingling but has a hard time describing the pain- the feeling goes away when she takes off the compression and shoes off. She has not been back to the wound clinic- she has not gone to see her PCP. She was suggested by the [facility] to see her supervisor [employer]. Last visit 49 days ago she felt that she was 60% better now she feels that she is only 10-20% better. She is working 5 days a week- she would like to keep working for awhile- but may need to cut back. Objective/Function: Posture: FH, RS- can correct with verbal cues but does not maintain. Gait: decreased stance on the right LE- slow sergio and she tires quickly- poor endurance- does turn toes out on the right LE as she fatigues HR/TR: able with UE A. SLS: 3 sec. Sit to Stand: no UE but slow and controlled . Stairs: reports asc/desc 8 recip with 2 HR. Palpation: mild tenderness to right lower leg with gentle palpation. ROM: WFL in all planes. Strength: Core: fair, Hip: 4/5, Knee: 4+/5 quad set visible but not strong- SLR: no lag. Flex: HS: moderate Gastroc: moderate Quad: moderate Plan Plan: 10/14/22: Continue 2-3x a week for 4 weeks focus on functional mobility. 08/27/21: Hold- pt to reach out for new C9- she would be appropriate to continue towards goals and increase proprioception and endurance. Cont per POC to help increase ROM, strength and endurance to help assist in ADL tolerance. Balance/Gait/Functional tests - Balance/Special Test Scores Lower Extremity Functional Score: 37 TUG Test Time Seconds: 21 Tug Test: 20-30sec.=variable mobility 30 Second Chair Rise Test Seconds: 4 Goals Goal 1:: Patient will be I with HEP and progression Goal Time Frame: 4-6 Weeks Goal Progress: Progressing Goal 2:: Patient will asc/desc 8 stairs recip with 1 HR Goal Time Frame: 4-6 Weeks Goal Progress: Progressing Goal 3:: Patient will ambulate >300 feet with a normalized gait pattern Goal Time Frame: 4-6 Weeks Goal Progress: Progressing Goal 4:: Patient will have equal girth 6 above Goal Time Frame: 4-6 Weeks Goal Progress: Progressing Goal 5:: Patient will report 80% improvement Goal Time Frame: 4-6 Weeks Goal Progress: Progressing Anticipated Interventions Patient/Client Instruction: Educate patient on: Benefits of Fitness Program Therapeutic Exercise to Include: Strength training, Endurance training, Balance training, Coordination, Agility training, Body mechanics, Postural training, Flexibilty training, Gait and locomotor training, Neuromotor development, Dynamic Lumbar Stabilization Please do not hesitate to contact me at [phone] by phone or if you have questions or concerns regarding this new plan of care! Sincerely, Jocelyn Amezquita DPT
== END 2022-10-26 19:00 | disposition home or self-care (01) ==
LOC: PT 12:30
PROVIDERS: PCP Family Medicine; Referring Provider Nurse Practitioner Family; Visit Provider Physician Assistant Surgical
DX: S80.11XD Contusion of right lower leg, subsequent encounter (principal); S81.811D Laceration without foreign body, right lower leg, subsequent encounter
CPT/HCPCS: 97110; 97161; 97164

== ENCOUNTER → 2022-11-09 | Outpatient (CLI) | payer BC, SELFPAY ==
--- NOTE | 2022-11-09 14:24 | RAD_ITS ---
STUDY: X-RAY CHEST REASON FOR EXAM: Female, 67 years old. Left pleural effusion. TECHNIQUE: PA and lateral views of the chest. COMPARISON: October 19, 2022. FINDINGS: The lungs are well expanded. Bilateral pleural effusions, left greater than right. These appear similar to the previous study. There is associated dependent change at the lung bases. Normal size heart. Normal mediastinum and agapito. Normal visualized pulmonary arteries. Normal visualized aortic arch and descending thoracic aorta. Normal visualized thoracic spine. Normal visualized ribs, clavicles, and shoulders. There is no demonstrated abnormality of the visualized soft tissue structures of the upper abdomen. RAD/Chest PA and Lateral IMPRESSION: Stable pleural effusions and atelectasis. Electronically Signed: Ori Maki DO at 19:11 EDT ,
== END | disposition home or self-care (01) ==
LOC: RAD 14:23
PROVIDERS: PCP Family Medicine; Visit Provider Internal Medicine Critical Care Medicine
DX: J90 Pleural effusion, not elsewhere classified (principal)
CPT/HCPCS: 71046

== ENCOUNTER → 2022-11-17 | Outpatient (CLI) | payer BC, SELFPAY ==
--- NOTE | 2022-11-17 07:34 | US_ITS ---
PROCEDURE: ULTRASOUND GUIDED THORACENTESIS. DATE: November 17, 2022. INDICATION: Female, 67 years old. Left pleural effusion. PHYSICIAN: Bert Hirsch M.D. PROCEDURE: The risks, benefits, and alternatives to the procedure were explained to the patient. The specific risks of bleeding, infection, and pneumothorax requiring chest tube insertion were discussed and accepted. Written informed consent was obtained. Ultrasonographic evaluation of the left lower pleural space was carried out. An adequate pocket was identified. The patient was placed in the sitting, upright position. The overlying skin was prepped and draped in sterile fashion. 1% lidocaine was administered subcutaneously for local anesthesia. Under ultrasound guidance, a 5 [place] thoracentesis needle/catheter system was advanced into the left posterior lower pleural fluid collection. Approximately 560 mL of stephen-colored fluid was drained. The catheter was removed, and a sterile dressing was applied. The patient tolerated the procedure well. A chest x-ray was ordered. US/Thoracentesis W US IMPRESSION: Ultrasound-guided left thoracentesis. Electronically Signed: Bert Hirsch MD at 8:43 EDT ,
[2022-11-17 07:59] VITALS: BP 88/64; BP 90/61; BP 91/65; PULSE 86; PULSE 88; PULSE 95; RESP 16; RESP 18; O2SAT 92; O2SAT 94; O2SAT 95
[2022-11-17] MEDS: Lidocaine 2% (20 ml mdv) 20 ML Vial INFILT (08:10)
--- NOTE | 2022-11-17 08:10 | RAD_ITS ---
STUDY: X-RAY CHEST REASON FOR EXAM: Female, 67 years old. Post thora TECHNIQUE: AP inspiration and expiration views. COMPARISON: Comparison is made with prior study dated November 09, 2022. FINDINGS: The patient is status post left thoracentesis. There is no evidence of pneumothorax. Mild persistent bibasilar pleural-parenchymal changes. RAD/Chest Insp/Exp 2 View IMPRESSION: Status post left thoracentesis. There is no evidence of pneumothorax. Electronically Signed: Bert Hirsch MD at 8:41 EDT ,
== END | disposition home or self-care (01) ==
LOC: US 07:33
PROVIDERS: PCP Family Medicine; Visit Provider Nurse Practitioner Acute Care
DX: J90 Pleural effusion, not elsewhere classified (principal)
CPT/HCPCS: 32555; 71046

== ENCOUNTER 2022-11-19 13:10 | Inpatient (IN) | payer BC, MEDICARE, SELFPAY ==
[2022-11-19] VITALS (13 sets, daily range): BP systolic 84–112; BP diastolic 58–80; PULSE 97–130; RESP 18–24; TEMP 36.6–37; O2SAT 87–97; BMI 17.9; BMI 17.7
--- NOTE | 2022-11-19 13:28 | EKG12_ITS ---
Test Reason : SOB Blood Pressure : / mmHG Vent. Rate : 109 BPM Atrial Rate : 109 BPM P-R Int : 118 ms QRS Dur : 072 ms QT Int : 320 ms P-R-T Axes : 037 030 031 degrees QTc Int : 430 ms Sinus tachycardia Low voltage QRS Borderline ECG Confirmed by JESSICA WELCH, SYDNEY ([id number]), legal editor JUAN C MAGUIRE ([id number]) on 11/23/2022 10:50:12 AM Referred By: SHARON Confirmed By:YIMI LOPEZ MD
--- NOTE | 2022-11-19 13:40 | RAD_ITS ---
STUDY: X-RAY CHEST REASON FOR EXAM: Female, 67 years old. Chest pain TECHNIQUE: PA and lateral views of the chest. COMPARISON: Comparison is made with prior study November 09, 2022. FINDINGS: EKG electrodes are seen. Since prior study, there has been an increase in the left pleural effusion with left basilar atelectasis. Stable pleural parenchymal changes at the right lung base. Normal size heart. Normal mediastinum and agapito. Normal visualized pulmonary arteries. Normal visualized aortic arch and descending thoracic aorta. Normal visualized thoracic spine. Normal visualized ribs, clavicles, and shoulders. There is no demonstrated abnormality of the visualized soft tissue structures of the upper abdomen. RAD/Chest PA and Lateral IMPRESSION: Increasing left pleural effusion with left basilar atelectasis and/or infiltration. Electronically Signed: Bert Hirsch MD at 14:24 EDT ,
[2022-11-19 13:46] LABS: Absolute Lymphocyte Count 0.28 X10^3/uL (0.83-4.51); Absolute Neutrophil Count 10.3 X10^3/uL (2.0-7.7); Basophil# 0.03 X10^3/uL; Basophil% 0.3 % (0-1); Eosinophil# 0.01 X10^3/uL; Eosinophils% 0.1 % (0-5); Hematocrit 35.7 % (37-47); Hemoglobin 11.1 g/dL (12.0-15.0); Lymphocyte # 0.28 X10^3/ul (0.83-4.51); Lymphocyte % 2.4 % (19-41); Mean Corp Hgb Conc 31.1 g/dL (32-36); Mean Corpuscular Hgb 23.2 pg (27.0-32.0); Mean Corpuscular Volume 74.7 fL (81-99); Mean Platelet Vol. 10.9 fl (6.2-12.0); Monocyte# 0.93 X10^3/uL; NRBC Flagged by Analyzer 0 % (0-5); Neutrophil # 10.34 X10^3/uL (2.7-7.7); Neutrophil % 88.5 % (47-70); POSITIVE DIFFERENTIAL YES; POSITIVE MORPHOLOGY YES; Platelet Count 332 K/mm3 (150-450); RBC Distribution Width CV 27.4 % (11.6-14.6); RBC Distribution Width SD 72.4 fl (35.1-43.9); Red Blood Count 4.78 M/mm3 (4.2-5.4); White Blood Count 11.7 K/mm3 (4.4-11.0)
[2022-11-19 13:48] LABS: Differential Indicated SCAN CRITERIA MET
[2022-11-19 13:56] LABS: Anion Gap 5 (5-15); BUN 29 mg/dL (7-18); BUN/Creat Ratio 37.2 RATIO (10-20); Calcium,Total 9.2 mg/dL (8.5-10.1); Chloride 103 mmol/L (98-107); Creatinine, Serum 0.78 mg/dL (0.55-1.02); EST Glomerular Filtration Rate 79 mL/min (>60); Est Glom Filt Rate - Afr Amer 95 mL/min (>60); Estimated Creatinine Clearance 47.11 ml/min; Glucose 103 mg/dL (74-106); Potassium 3.9 mmol/L (3.5-5.1); Sodium Level 134 mmol/L (136-145); Troponin-I HS 4 pg/mL (3.0-54.0)
--- NOTE | 2022-11-19 14:06 | ED.VIS.DYS ---
HPI History of Present Illness Chief Complaint: Shortness of Breath Detail of Chief Complaint: Status postthoracentesis yesterday. Informant: patient Onset/Context/Timing Onset: Today and Yesterday Context: gradual Timing: Continuous Current Severity: Mild Maximum Severity: Mild Worsened by: Exertion and Lying flat Relieved by: Nothing Associated Symptoms Chest Pain: Positive for Pleuritic Narrative Narrative: 67-year-old female history of pleural effusions, anemia, CHF, stage III COPD. She is on oxygen at home at night and as needed. She had a thoracentesis done yesterday here at the hospital they took fluid off. She states since that time she has had more pain in her back primarily with deep breathing and is felt short of breath. She denies any history of DVT or PE. No hemoptysis. No fever or chills. PE Risk Factors: Negative for Cancer, OCP + Smoking + > 35, Prior DVT or PE, Recent immobilization, Recent surgery or Recent travel Prior similar symptoms: Yes Recent Illness/Hospitalization: No PFSH PFSH Medical History Angioedema Anxiety Atherosclerotic heart disease of [place] coronary artery without angina pectoris Bilateral pleural effusion Bronchiectasis Contusion of right lower leg, initial encounter COPD (chronic obstructive pulmonary disease) Edema of right lower extremity Elevated transaminase level Former smoker GERD (gastroesophageal reflux disease) History of non-ST elevation myocardial infarction (NSTEMI) (06/18/20) Hypothyroidism Hypoxia Iatrogenic pneumothorax (06/17/22) Iron deficiency anemia Laceration without foreign body, right lower leg, initial encounter Leg wound, right Non-healing ulcer of ankle with fat layer exposed Pericardial effusion Pneumothorax Recurrent pleural effusion Restrictive pericarditis Secondary pulmonary arterial hypertension Severe malnutrition Syncope (06/17/22) Ulcer of right lower extremity with fat layer exposed Home Medications albuterol sulfate 90 mcg/actuation aerosol inhaler 2 puff inhalation Q4H PRN PRN Bronchodialation 09/07/16 [History Last Taken 06/17/22] omeprazole 20 mg capsule,delayed release 20 mg PO DAILY GERD 09/07/16 [History Last Taken 06/17/22] lorazepam 0.5 mg tablet 0.5 mg PO BID PRN PRN Anxiety 09/26/16 [History Last Taken 06/17/22] ascorbic acid (vitamin C) 500 mg chewable tablet 500 mg PO BIDCM supplement ##0 06/20/20 [Rx Last Taken 06/16/22] budesonide 180 mcg/actuation breath activated powder inhaler 1 inh inhalation BID COPD 02/11/21 [History Last Taken 06/17/22] montelukast 10 mg tablet 10 mg PO DAILY 02/11/21 [History Last Taken 06/16/22] vitamin B complex (B Complex-Vitamin B12 tablet) 1 tab PO DAILY 02/11/21 [History Last Taken 06/17/22] colchicine 0.6 mg tablet 0.6 mg PO DAILY gout #30 tabs 01/14/22 [Rx Last Taken 06/16/22] levothyroxine 88 mcg tablet 88 mcg PO MOTUWETHFRSA 01/20/22 [History Last Taken 06/17/22] metoprolol tartrate 25 mg tablet 12.5 mg PO BID #120 tabs 01/20/22 [Rx Last Taken 06/17/22] potassium chloride 10 mEq tablet,extended release 30 meq PO BID 01/20/22 [History Last Taken 06/17/22] spironolactone 25 mg tablet 25 mg PO DAILY #90 tabs 03/23/22 [Rx Last Taken 06/16/22] acetaminophen 500 mg tablet 1,000 mg PO Q6H PRN Pain 06/17/22 [History Last Taken 06/16/22] guaifenesin 1,200 mg tablet, extended release 12 hr (Mucinex) 1,200 mg PO BID CONGESTION 06/17/22 [History Last Taken 06/17/22] levothyroxine 88 mcg tablet 132 mcg PO GEORGES 06/17/22 [History Last Taken 06/14/22] sodium chloride 0.65 % nasal spray aerosol (Deep Sea Nasal) 2 spray NASAL TID PRN PRN NASAL DRYNESS #0 mL 06/20/22 [Rx Last Taken Unknown] ipratropium 20 mcg-albuterol 100 mcg/actuation mist for inhalation 1 puff inhalation Q4H #4 grams 07/08/22 [Rx Last Taken Unknown] multivitamin 1 tab PO DAILY supplement 07/08/22 [History Last Taken Unknown] aspirin 81 mg tablet,delayed release 81 mg PO DAILY #90 tabs 09/01/22 [Rx Last Taken Unknown] atorvastatin 40 mg tablet 40 mg PO QHS #90 tabs 09/01/22 [Rx Last Taken Unknown] clopidogrel 75 mg tablet 75 mg PO DAILY #90 tabs 09/01/22 [Rx Last Taken Unknown] bumetanide 1 mg tablet 1 mg PO DAILY water pill #90 tabs 09/21/22 [Rx Last Taken Unknown] alendronate 70 mg tablet tablet PO 10/01/22 [History Last Taken Unknown] pantoprazole 20 mg tablet,delayed release (Protonix) 20 mg PO DAILY reflux #40 tabs 10/19/22 [Rx Last Taken Unknown] Allergy/AdvReac Type Severity Reaction Status Date / Time amoxicillin [From Augmentin] Allergy Rash Verified 11/19/22 13:12 clavulanic acid Allergy Rash Verified 11/19/22 13:12 [From Augmentin] doxycycline Allergy Rash Verified 11/19/22 13:12 tiotropium AdvReac Unknown PT UNSURE Verified 11/19/22 13:12 OF REACTION budesonide [From Symbicort] AdvReac Other Verified 11/19/22 13:12 bumetanide AdvReac PT UNSURE Verified 11/19/22 13:12 OF REACTION cefdinir AdvReac Bleeding Verified 11/19/22 13:12 clindamycin AdvReac Abd Verified 11/19/22 13:12 cramps/diarrhea fluticasone [From Flonase] AdvReac HEADACHES Verified 11/19/22 13:12 formoterol [From Symbicort] AdvReac HIGH Verified 11/19/22 13:12 FEELING furosemide AdvReac NEEDS Verified 11/19/22 13:12 FOLLOW-UP spironolactone AdvReac NEEDS Verified 11/19/22 13:12 FOLLOW-UP umeclidinium AdvReac Shortness Verified 11/19/22 13:12 of breath Family History Mother Colon cancer Father Heart disease Surgical History History of coronary artery stent placement (06/18/20) History of right and left heart catheterization (05/01/20) History of thoracentesis (06/17/22) Social History Smoking Status: Former smoker alcohol intake: current alcohol intake frequency: holidays/special occasions only substance use type: does not use caffeine: Yes Type: coffee Number of servings: 1 ROS ROS ED ROS Narrative Shortness of breath. Pleuritic back pain. Review of Systems ROS Unobtainable: Denies due to encephalopathy Constitutional Constitutional ED: Denies chills or fever(s) Eyes Eyes: Denies blurry vision ENT ENT ED: Denies ear pain Cardiovascular Cardiovascular: Reports chest pain Respiratory/Chest Respiratory/Chest: Reports dyspnea Gastrointestinal Gastrointestinal: Denies abdominal pain Genitourinary Genitourinary ED: Denies dysuria or hematuria Musculoskeletal Musculoskeletal: Denies arthralgias Integumentary Denies abscess or Abrasions Neurologic Neurologic: Denies headache(s) Psychiatric Psychiatric: Denies anxiety or depression Endocrine Endocrinology: Denies cold intolerance Hematologic/Lymphatic Hematologic/Lymphatic: Denies easy bleeding Allergic/Immunologic Allergic/Immunologic ED: Denies mouth swelling EXAM Physical Exam Narrative Exam Narrative: 62-year-old female vital signs are stable. Pulse ox 87% on room air 96% on 2 L. She is on 2 L as needed at home. Heart rate 113. Afebrile. She is not septic or toxic. She is in no distress. H EENT exam unremarkable. Neck nontender. Lungs diminished in both bases. No rales or rhonchi. Heart tachycardic rate about 110. No murmur. Abdomen soft nontender. Moving all 4 extremities. Calves are nontender that edema or cords. Back there is no significant tenderness to her back. Where prior thoracentesis done the site looks good. There is no bruising. There is no cellulitis. There is no subcu air. There is no bony tenderness. Neurologically she is awake and alert with no focal motor deficits. Const Vital Signs: 11/19/22 13:12 11/19/22 13:16 11/19/22 13:16 Temperature 98.2 F 98.2 F Temperature Source Oral Oral Pulse Rate 113 H 114 H Respiratory Rate 24 H 24 H Respiratory Effort Respiratory Pattern Blood Pressure 104/64 104/64 Blood Pressure Mean 77 77 Pulse Ox 87 96 96 Oxygen Delivery Method Room Air Nasal Cannula Nasal Cannula Oxygen Flow Rate (L/min) 2 2 11/19/22 13:19 11/19/22 13:39 Temperature Temperature Source Pulse Rate Respiratory Rate Respiratory Effort Short of Breath Labored Respiratory Pattern Tachypnea Blood Pressure Blood Pressure Mean Pulse Ox Oxygen Delivery Method Room Air Nasal Cannula Oxygen Flow Rate (L/min) 2 Positive well nourished and well developed; Negative for obese, cachectic, contractures or unkempt General Appearance ED: well developed and NAD; Negative for unkempt, cachectic, contractures or pallor Nutritional Appearance: Negative for cachectic or obese HEENT Reports moist mucous membranes; Denies dry mucous membranes atraumatic; Negative for trauma or tenderness Mouth ED: No dry mucous membranes Mouth: No dry mucous membranes Eyes PERRL and EOMs intact bilaterally General Eye ED: Negative for pale conjunctiva or scleral icterus Neck no lymphadenopathy, supple, no meningeal signs and no JVD General: Negative for tenderness Lymph Lymphatic: Negative for other Chest Wall Chest: Negative for other Resp normal respiratory effort and clear to auscultation bilaterally Resp Narrative: Diminished breath sounds bilaterally in the bases. Auscultation: diminished lung sounds; Negative for rales, rhonchi or wheezes Cardio regular rhythm, S1 normal heart sound, S2 normal heart sound and no murmurs; Negative for regular rate Rate: tachycardic GI non-tender, non-distended and no masses Inspection: Negative for other Auscultation: normoactive bowel sounds Palpation: soft; Negative for tender or guarding Back/Spine no CVA tenderness and normal to inspection General Back: Negative for CVA tenderness Extremity normal to inspection General Extremety ED: Negative for edema or tenderness General Extremity: Negative for edema Neuro oriented x3 and CN's II-XII intact bilaterally Sensorium / Orientation: alert, oriented to person, oriented to place and oriented to time; Negative for orientation impaired or confused Speech: speech normal Motor Exam: strength 5/5 throughout Psych mental status grossly normal Appearance: Negative for unkempt Attitude: No agitated Mood & Affect: Negative for depressed or anxious Thought Process: normal thought process Skin no wounds General Skin Exam: Negative for jaundice or pallor Lesions: no lesions Rashes: no rashes Trauma: Negative for abrasion or laceration MDM MDM MDM Narrative Medical decision making narrative: 67-year-old female status post thoracentesis yesterday with recurrent shortness of breath and pleuritic chest pain. She underwent a cardiac work-up. Chest x-ray looks worse than it did after the thoracentesis yesterday with reaccumulation of fluid. Worse on the left but she has bilateral pleural effusions. Otherwise her labs are baseline anemia. I discussed this with our interventional radiology GI she saw and cared for the patient yesterday. He reviewed her films. He offered to draw off more fluid with a repeat thoracentesis which I discussed with the patient and she is okay with the plan. She will be taken down to radiology for a repeat thoracentesis. Jewelry Estimator found that the patient had a loculated pleural effusion. He did not feel that a thoracentesis would do her significant benefit and thought she needed a higher level of care. I also spoke to general surgery who reviewed her images and agrees. Patient will most likely need either interventional radiology or cardiothoracic surgery intervention. She has been evaluated for this before and treated in [facility]. I spoke to the transfer line. They will accept her in transfer they cannot take her at this time. They have 38 other patients awaiting transfer and admission. We will speak to our hospitalist here about admission. Currently the patient is doing well at 5:10 PM. She will be given for morphine for pain and Zofran to prevent nausea. Hospitalist is on page. The patient be checked out to the afternoon physician. History & Record Review Discussion w/independent historian: Patient Lab Data Attestation: I reviewed the patient's lab results. Lab results narrative: CBC shows a white 11.7. H&H 11.1 and 35.7. Platelets 332. Electrolytes show sodium 134 gap of 5 BUN 29 creatinine 0.70. Glucose 103. Troponin 4. Chest x-ray shows bilateral pleural effusions worse on the left. Compared to yesterday's chest x-ray the pleural effusion on the left is worse than after the thoracentesis was performed. Labs: Laboratory Results - last 24 hr 11/19/22 11/19/22 13:25 13:25 WBC 11.7 H RBC 4.78 Hgb 11.1 L Hct 35.7 L MCV 74.7 L MCH 23.2 L MCHC 31.1 L RDW Std Deviation 72.4 H RDW Coeff of Angie 27.4 H Plt Count 332 MPV 10.9 Immature Gran % (Auto) 0.700 Neut % (Auto) 88.5 H Lymph % (Auto) 2.4 L Kinney % (Auto) 8.0 Eos % (Auto) 0.1 Baso % (Auto) 0.3 Absolute Neuts (auto) 10.3 H Absolute Lymphs (auto) 0.28 L Nucleated RBC % 0 Differential Comment SCANNED Hypochromasia 2+ Target Cells 1+ Crenated Cell 1+ Sodium 134 L Potassium 3.9 Chloride 103 Carbon Dioxide 26.0 Anion Gap 5 BUN 29 H Creatinine 0.78 Estim Creat Clear Calc 47.11 Est GFR (MDRD) Af Amer 95 Est GFR (MDRD) Non-Af 79 BUN/Creatinine Ratio 37.2 H Glucose 103 Calcium 9.2 Troponin I High Sens 4 Radiography Chest X-Ray - ED: 1 View, Read by ED Physician, Heart, Mediastinum, Bony Structures, Right Effusion and Left Effusion Diagnostic Testing: Clinical Impression(s) from Imaging Studies Chest X-Ray 11/19/22 13:40 IMPRESSION: Increasing left pleural effusion with left basilar atelectasis and/or infiltration. Electronically Signed: Bert Hirsch MD at 14:24 EDT , Chest Ultrasound 11/19/22 14:08 IMPRESSION: Multiloculated collection at the left lung base. Electronically Signed: Bert Hirsch MD at 15:33 EDT , Chest x-ray, portable, single view interpreted by myself shows bilateral pleural effusions. Left greater than right. When compared to the chest x-ray from yesterday the pleural effusion on the left is reaccumulated and worse than it was postthoracentesis. Rhythm Strip Rhythm Strip: Sinus Tach Rate: 109 Differential Diagnosis Chest pain/SOB: pulmonary embolism, ACS, pneumothorax, pneumonia and CHF Management Discussion w/another healthcare provider: Digital Associate Media Director and Radiologist Discharge Plan Triage Chief Complaint: Shortness of Breath Other Complaint: Other, Pain/Inj ED Provider: Fab Roberts Dx/Rx/DC Orders Clinical Impression: Acute dyspnea, COPD (chronic obstructive pulmonary disease), Recurrent pleural effusion, History of acute heart failure Instructions: ANTONY RN Thoracentesis Dc Prescriptions: No Action potassium chloride 10 mEq tablet extended release 30 meq PO BID levothyroxine 88 mcg tablet 88 mcg PO MOTUWETHFRSA Rx Instructions: one and one half tablet wednesday montelukast 10 mg tablet 10 mg PO DAILY vitamin B complex [B Complex-Vitamin B12] Tablet 1 tab PO DAILY metoprolol tartrate 25 mg tablet 12.5 mg PO BID Qty: 120 3RF ipratropium-albuterol 20-100 mcg/actuation mist 1 puff inhalation Q4H Qty: 4 11RF alendronate 70 mg tablet PO omeprazole 20 MG capsule 20 mg PO DAILY Label Comments: ACID REFLUX albuterol sulfate 1 INHALER inhaler 2 puff INHALATION Q4H PRN PRN (Reason: Bronchodialation) Label Comments: SHORTNESS OF BREATH multivitamin Tablet 1 tab PO DAILY Label Comments: SUPPLEMENT lorazepam 0.5 MG tablet 0.5 mg PO BID PRN PRN (Reason: Anxiety) Label Comments: Anxiety ascorbic acid (vitamin C) 500 MG tablet,chewable 500 mg PO BIDCM Qty: 0 0RF Rx Instructions: Take with iron budesonide 180 mcg/actuation aerosol powdr breath activated 1 inh INHALATION BID levothyroxine 88 mcg tablet 132 mcg PO GEORGES Label Comments: TAKE 1 TABLET BY MOUTH ONCE DAILY EXCEPT WEDNESDAY TAKE 1&1/2 TABLET ON AN EMPTY STOMACH Mucinex 1,200 mg Tablet Extended Release 12hr 1,200 mg PO BID acetaminophen 500 mg Tablet 1,000 mg PO Q6H PRN (Reason: Pain) Deep Sea Nasal 0.65 % Aerosol,[place] 2 spray NASAL TID PRN PRN (Reason: NASAL DRYNESS) Qty: 0 0RF pantoprazole [Protonix] 20 mg tablet,delayed release (DR/EC) 20 mg PO DAILY Qty: 40 0RF Rx Instructions: For the first 10 days take the Protonix 40 mg or 2 pills once a day. After the first 10 days take 1 pill a day. This should improve your symptoms. colchicine 0.6 mg tablet 0.6 mg PO DAILY Qty: 30 11RF spironolactone 25 mg tablet 25 mg PO DAILY Qty: 90 3RF atorvastatin 40 mg tablet 40 mg PO QHS Qty: 90 3RF aspirin 81 mg tablet,delayed release (DR/EC) 81 mg PO DAILY Qty: 90 3RF clopidogrel 75 mg tablet 75 mg PO DAILY Qty: 90 3RF bumetanide 1 mg tablet 1 mg PO DAILY Qty: 90 3RF Primary Care Provider: Atul Garcia Referrals: Atul Garcia MD [Primary Care Provider] -
--- NOTE | 2022-11-19 14:08 | US_ITS ---
STUDY: SUPERFICIAL ULTRASOUND - LEFT PLEURAL SPACE. REASON FOR EXAM: Female, 67 years old. Shortness of breath with moderate left pleural eff TECHNIQUE: A superficial ultrasound was performed with real-time and static lebron-scale imaging. COMPARISON: Comparison is made with prior examination dated November 17, 2022. FINDINGS: There is evidence of heterogeneous infiltration the left lung base with multiple septated cystic structures. Thoracentesis is limited with this type of presentation. US/Chest IMPRESSION: Multiloculated collection at the left lung base. Electronically Signed: Bert Hirsch MD at 15:33 EDT ,
[2022-11-19 14:12] LABS: Differential Comment SCANNED; Hypochromasia 2+; Target Cells 1+
[2022-11-19 14:13] LABS: Crenated RBC 1+
--- NOTE | 2022-11-19 14:20 | ED.RN ---
PT TO RADIOLOGY PER RADIOLOGY STAFF FOR THORACENTESIS
[2022-11-19] MEDS: Acetaminophen 500 MG Tablet 1000 MG PO (14:54)
[2022-11-19] MEDS: Morphine 4 MG/ML Syringe IV (17:17)
[2022-11-19] MEDS: Ondansetron 4 MG/2 ML Vial IV (17:17)
--- NOTE | 2022-11-19 17:32 | ED.RN ---
[facility] CC CALLED BACK. ACCEPTING DOC IS . UPDATED THAT PT WILL BE ADMITTED TO [facility]
--- NOTE | 2022-11-19 19:53 | PCM.HP.STD ---
[facility] Date of Admission: 11/19/22 Date of Service: 11/19/22 Chief Complaint: Shortness of breath [facility] Narrative LOUISE ROSALES, is a 67 F who presents to the emergency room at [facility] with complaints of shortness of breath, she underwent a left thoracentesis yesterday due to a chronic left pleural effusion, she is on chronic oxygen at home at 2 L/min. She came to the emergency room today with increasing shortness of breath, work-up in the emergency room included a chest x-ray showing an increasing left pleural effusion with left basilar atelectasis and/or infiltration, she had a chest ultrasound performed today which showed a multiloculated collection at the left lung base. The emergency room physician talked with general surgery about her care and it was advised that the patient be sent to a tertiary hospital for further treatment of the left pleural effusion with insertion of chest tubes and or thoracoscopy. Unfortunately [facility] did not have a bed for the patient. She is currently on a waiting list for transfer there. Patient will be admitted to [place] [id number] for hypoxia and increased left pleural effusion, she will continue on her home medications and her pulse ox will be monitored. [facility], [facility] Medical History (Updated 11/19/22 @ 18:19 by Sonya Maldonado) Alcohol abuse Angioedema Anxiety Atherosclerotic heart disease of [place] coronary artery without angina pectoris Bilateral pleural effusion Bronchiectasis Congestive heart failure (CHF) Contusion of right lower leg, initial encounter COPD (chronic obstructive pulmonary disease) Edema of right lower extremity Elevated transaminase level Former smoker GERD (gastroesophageal reflux disease) History of non-ST elevation myocardial infarction (NSTEMI) (06/18/20) Hypothyroidism Hypoxia Iatrogenic pneumothorax (06/17/22) Iron deficiency anemia Laceration without foreign body, right lower leg, initial encounter Leg wound, right Myocardial infarct Non-healing ulcer of ankle with fat layer exposed Pericardial effusion Pneumothorax Recurrent pleural effusion Restrictive pericarditis Secondary pulmonary arterial hypertension Severe malnutrition Syncope (06/17/22) Ulcer of right lower extremity with fat layer exposed Home Medications albuterol sulfate 90 mcg/actuation aerosol inhaler 2 puff inhalation Q4H PRN PRN Bronchodialation 09/07/16 [History Last Taken 06/17/22] omeprazole 20 mg capsule,delayed release 40 mg PO DAILY GERD 09/07/16 [History Last Taken 06/17/22] lorazepam 0.5 mg tablet 0.5 mg PO BID PRN PRN Anxiety 09/26/16 [History Last Taken 06/17/22] ascorbic acid (vitamin C) 500 mg chewable tablet 500 mg PO BIDCM supplement ##0 06/20/20 [Rx Last Taken 06/16/22] budesonide 180 mcg/actuation breath activated powder inhaler 1 inh inhalation BID COPD 02/11/21 [History Last Taken 06/17/22] montelukast 10 mg tablet 10 mg PO DAILY 02/11/21 [History Last Taken 06/16/22] vitamin B complex (B Complex-Vitamin B12 tablet) 1 tab PO DAILY 02/11/21 [History Last Taken 06/17/22] colchicine 0.6 mg tablet 0.6 mg PO DAILY gout #30 tabs 01/14/22 [Rx Last Taken 06/16/22] levothyroxine 88 mcg tablet 88 mcg PO MOTUWETHFRSA 01/20/22 [History Last Taken 06/17/22] metoprolol tartrate 25 mg tablet 12.5 mg PO BID #120 tabs 01/20/22 [Rx Last Taken 06/17/22] potassium chloride 10 mEq tablet,extended release 60 meq PO BID 01/20/22 [History Last Taken 06/17/22] spironolactone 25 mg tablet 25 mg PO DAILY #90 tabs 03/23/22 [Rx Last Taken 06/16/22] acetaminophen 500 mg tablet 1,000 mg PO Q6H PRN Pain 06/17/22 [History Last Taken 06/16/22] guaifenesin 1,200 mg tablet, extended release 12 hr (Mucinex) 1,200 mg PO BID CONGESTION 06/17/22 [History Last Taken 06/17/22] levothyroxine 88 mcg tablet 132 mcg PO GEORGES 06/17/22 [History Last Taken 06/14/22] ipratropium 20 mcg-albuterol 100 mcg/actuation mist for inhalation 1 puff inhalation Q4H #4 grams 07/08/22 [Rx Last Taken Unknown] multivitamin 1 tab PO DAILY supplement 07/08/22 [History Last Taken Unknown] aspirin 81 mg tablet,delayed release 81 mg PO DAILY #90 tabs 09/01/22 [Rx Last Taken Unknown] atorvastatin 40 mg tablet 40 mg PO QHS #90 tabs 09/01/22 [Rx Last Taken Unknown] clopidogrel 75 mg tablet 75 mg PO DAILY #90 tabs 09/01/22 [Rx Last Taken Unknown] bumetanide 1 mg tablet 1 mg PO DAILY water pill #90 tabs 09/21/22 [Rx Last Taken Unknown] alendronate 70 mg tablet tablet PO 10/01/22 [History Last Taken 11/05/22 06:00] Allergy/AdvReac Type Severity Reaction Status Date / Time amoxicillin [From Augmentin] Allergy Rash Verified 11/19/22 18:15 clavulanic acid Allergy Rash Verified 11/19/22 18:15 [From Augmentin] doxycycline Allergy Rash Verified 11/19/22 18:15 tiotropium AdvReac Unknown PT UNSURE Verified 11/19/22 18:15 OF REACTION budesonide [From Symbicort] AdvReac high Verified 11/19/22 18:15 feeling bumetanide AdvReac PT UNSURE Verified 11/19/22 18:15 OF REACTION cefdinir AdvReac Bleeding Verified 11/19/22 18:15 clindamycin AdvReac Abd Verified 11/19/22 18:15 cramps/diarrhea fluticasone [From Flonase] AdvReac HEADACHES Verified 11/19/22 18:15 formoterol [From Symbicort] AdvReac HIGH Verified 11/19/22 18:15 FEELING furosemide AdvReac NEEDS Verified 11/19/22 13:12 FOLLOW-UP spironolactone AdvReac NEEDS Verified 11/19/22 13:12 FOLLOW-UP umeclidinium AdvReac Shortness Verified 11/19/22 13:12 of breath Family History Mother Colon cancer Father Heart disease Surgical History History of coronary artery stent placement (06/18/20) History of right and left heart catheterization (05/01/20) History of thoracentesis (06/17/22) Social History Smoking Status: Former smoker alcohol intake: current alcohol intake frequency: holidays/special occasions only substance use type: does not use caffeine: Yes Type: coffee Number of servings: 1 ROS Constitutional Constitutional: Denies anorexia, change in weight, fever(s), night sweats or weakness Eyes Eyes: Denies blurry vision, change in vision, discharge from eye(s) or eye pain Cardiovascular Cardiovascular: Reports dyspnea on exertion; Denies chest pain, claudication, edema or palpitations Respiratory/Chest Respiratory/Chest: Reports dyspnea, shortness of breath at rest and shortness of breath with exertion; Denies cough or hemoptysis Gastrointestinal Gastrointestinal: Denies abdominal pain, constipation, diarrhea, hematemesis, hematochezia, melena, nausea or vomiting Genitourinary Genitourinary: Denies dysuria, hematuria, urinary frequency, urinary hesitancy, urinary incontinence or urinary urgency Musculoskeletal Musculoskeletal: Denies back pain, joint pain, joint stiffness, joint swelling, myalgias or neck pain Neurologic Neurologic: Denies abnormal gait, abnormal speech, confusion, disequilibrium, dizziness, focal weakness, headache(s), loss of vision, numbness, other visual disturbances, paresthesias, syncope or tingling Psychiatric Psychiatric: Denies anxiety, cognitive impairment, depression, irritability, mood swings or suicidal ideation Endocrine Endocrinology: Denies change in body appearance, cold intolerance, excessive sweating, heat intolerance, polydipsia or polyuria Hematologic/Lymphatic Hematologic/Lymphatic: Denies none, anemia, easy bleeding, easy bruising or lymphadenopathy Allergic/Immunologic Allergic/Immunologic: Denies rhinitis, urticaria, eczemia or asthma Vital Signs Vital Signs Vital Signs: 11/19/22 13:12 11/19/22 13:16 11/19/22 13:16 Temperature 98.2 F 98.2 F Temperature Source Oral Oral Pulse Rate 113 H 114 H Respiratory Rate 24 H 24 H Respiratory Effort Respiratory Pattern Blood Pressure 104/64 104/64 Blood Pressure Mean 77 77 Blood Pressure Source Blood Pressure Position Blood Pressure Location Pulse Ox 87 96 96 Oxygen Delivery Method Room Air Nasal Cannula Nasal Cannula Oxygen Flow Rate (L/min) 2 2 11/19/22 13:19 11/19/22 13:39 11/19/22 15:11 Temperature Temperature Source Pulse Rate 114 H Respiratory Rate 24 H Respiratory Effort Short of Breath Labored Respiratory Pattern Tachypnea Blood Pressure 101/63 Blood Pressure Mean 75 Blood Pressure Source Blood Pressure Position Blood Pressure Location Pulse Ox 94 Oxygen Delivery Method Room Air Nasal Cannula Oxygen Flow Rate (L/min) 2 11/19/22 17:11 11/19/22 17:27 11/19/22 18:50 Temperature 98 F 98.6 F Temperature Source Temporal Temporal Pulse Rate 125 H 125 H 123 H Respiratory Rate 23 H 23 H 21 H Respiratory Effort Respiratory Pattern Blood Pressure 112/66 112/66 100/69 Blood Pressure Mean 81 81 79 Blood Pressure Source Monitor Blood Pressure Position Semi-Fowlers Blood Pressure Location Right Arm Pulse Ox 92 92 93 Oxygen Delivery Method Room Air Oxygen Flow Rate (L/min) 3 11/19/22 19:48 Temperature 98.5 F Temperature Source Oral Pulse Rate 113 H Respiratory Rate 24 H Respiratory Effort Respiratory Pattern Blood Pressure 105/69 Blood Pressure Mean 81 Blood Pressure Source Monitor Blood Pressure Position Semi-Fowlers Blood Pressure Location Right Arm Pulse Ox 95 Oxygen Delivery Method Nasal Cannula Oxygen Flow Rate (L/min) 3 Weight Weight: 38.51 kg Body Mass Index (BMI) 17.7 Physical Exam Const alert, oriented x3 and no apparent distress Constitutional Narrative: Patient appears frail and cachectic General Appearance: cooperative and well kempt Orientation / Consciousness: awake, oriented to person, oriented to place and oriented to time HEENT normocephalic, head/scalp atraumatic, hearing grossly normal bilaterally and moist oral mucous membranes Eyes PERRL, EOMs intact bilaterally and conjunctivae normal Neck supple, no JVD, thyroid normal and no carotid bruits General: trachea midline Resp normal respiratory effort, no retractions and no use of accessory muscles Resp Narrative: Breath sounds are distant bilaterally Auscultation: Negative for rales, rhonchi or wheezes Cardio regular rate, regular rhythm, S1 normal heart sound, S2 normal heart sound, no murmurs, no rub and no gallops GI normal to inspection, nondistended, normoactive bowel sounds, soft to palpation, non-tender and non-distended Extremity no clubbing, cyanosis or edema Skin no rashes or lesions noted General Skin Exam: no breakdown Neuro oriented x3, CN's II-XII intact bilaterally, moves all extremities, no focal motor deficits and no sensory deficits noted Sensorium / Orientation: awake, alert, oriented to person, oriented to place and oriented to time Speech: speech normal Psych affect normal Results Lab / Micro Data Result Diagrams: 11/20/22 06:21 11/19/22 13:25 Labs: Laboratory Results - last 24 hr 11/19/22 13:25: WBC 11.7 H, RBC 4.78, Hgb 11.1 L, Hct 35.7 L, MCV 74.7 L, MCH 23.2 L, MCHC 31.1 L, RDW Std Deviation 72.4 H, RDW Coeff of Angie 27.4 H, Plt Count 332, MPV 10.9, Immature Gran % (Auto) 0.700, Neut % (Auto) 88.5 H, Lymph % (Auto) 2.4 L, [place] % (Auto) 8.0, Eos % (Auto) 0.1, Baso % (Auto) 0.3, Absolute Neuts (auto) 10.3 H, Absolute Lymphs (auto) 0.28 L, Nucleated RBC % 0, Differential Comment SCANNED, Hypochromasia 2+, Target Cells 1+, Crenated Cell 1+ 11/19/22 13:25: Sodium 134 L, Potassium 3.9, Chloride 103, Carbon Dioxide 26.0, Anion Gap 5, BUN 29 H, Creatinine 0.78, Estim Creat Clear Calc 47.11, Est GFR (MDRD) Af Amer 95, Est GFR (MDRD) Non-Af 79, BUN/Creatinine Ratio 37.2 H, Glucose 103, Calcium 9.2, Troponin I High Sens 4 Rhythm Strip Rhythm Strip: Sinus Tach Rate: 109 Radiology Impression Chest X-Ray 11/19/22 13:40 IMPRESSION: Increasing left pleural effusion with left basilar atelectasis and/or infiltration. Electronically Signed: Bert Hirsch MD at 14:24 EDT , Chest Ultrasound 11/19/22 14:08 IMPRESSION: Multiloculated collection at the left lung base. Electronically Signed: Bert Hirsch MD at 15:33 EDT , Assessment & Plan Assessment/Plan (1) Acute dyspnea: PLAN: Plan 1. Dyspnea secondary to recurrent left pleural effusion-patient was admitted to [facility], she had been seen by general surgery who recommended transfer to a tertiary facility for thoracoscopy or chest tube placement, she is on a waiting list for [facility], she will remain in the hospital here until she is transferred to [facility]. #2 recurrent left pleural effusion-etiology unclear, provide supportive care including monitoring supplemental oxygen via pulse ox #3 chronic hypoxic respiratory failure-patient is on 2 L of oxygen at home, pulse ox will be monitored, oxygen will be adjusted accordingly #4 hyperlipidemia-patient is on Lipitor #5 chronic severe protein and caloric malnutrition-patient will be seen by nutritional services #6 chronic obstructive pulmonary disease-patient will continue on aerosol treatments #7 coronary artery disease-patient will remain on Plavix and aspirin #8 hypothyroidism-patient will remain on Synthroid #9 essential hypertension-patient will remain on her home medications #10 chronic diastolic congestive heart failure-patient remains on Bumex Total clinical time spent by myself addressing the patient's medical issues, reviewing all of her data, and collaborating with patient's care team: 75 minutes Charges/Coding Visit Charges Inpatient E&M: 98344 Init Hosp L3
[2022-11-19] MEDS: Acetaminophen 325 MG Tablet 650 MG PO (21:20)
[2022-11-19] MEDS: Heparin Injection (Vial) 5,000 UNIT/ML VIAL 5000 UNIT SC (21:20)
[2022-11-19] MEDS: Metoprolol Tartrate 25 MG Tablet 12.5 MG PO (21:21)
[2022-11-19] MEDS: Atorvastatin Calcium 40 MG Tablet PO (21:21)
[2022-11-19] MEDS: Temazepam 15 MG Capsule PO (21:21)
[2022-11-19] MEDS: guaiFENesin 1,200 MG Tablet 1200 MG PO (21:24)
[2022-11-19] MEDS: Montelukast 10 MG Tablet PO (21:31)
[2022-11-19] MEDS: Morphine 2 MG/ML Syringe IV (21:52)
[2022-11-19] MEDS: 0.9% Saline Lock 10 ML Syringe IV (21:53)
[2022-11-19] MEDS: Budesonide Respules 0.5 MG/2 ML AMPUL.NEB. INHALATION (23:10)
[2022-11-19] MEDS: Ipratropium/Albuterol Sulfate 3 ML AMPUL.NEB INHALATION (23:10)
[2022-11-20] VITALS (36 sets, daily range): BP systolic 87–143; BP diastolic 55–90; PULSE 78–134; RESP 15–33; TEMP 36.6–39.4; O2SAT 83–100
[2022-11-20] MEDS: Acetaminophen 325 MG Tablet 650 MG PO ×3 (03:25→21:56)
[2022-11-20] MEDS: Levothyroxine 88 MCG Tablet PO (04:52)
[2022-11-20] MEDS: 0.9% Normal Saline 1,000 ML 100 ML IV (06:02)
[2022-11-20 06:47] LABS: Absolute Lymphocyte Count 0.23 X10^3/uL (0.83-4.51); Absolute Neutrophil Count 9.9 X10^3/uL (2.0-7.7); Basophil# 0.04 X10^3/uL; Basophil% 0.4 % (0-1); Hematocrit 35.3 % (37-47); Hemoglobin 10.4 g/dL (12.0-15.0); Lymphocyte # 0.23 X10^3/ul (0.83-4.51); Lymphocyte % 2.1 % (19-41); Mean Corp Hgb Conc 29.5 g/dL (32-36); Mean Corpuscular Hgb 22.7 pg (27.0-32.0); Mean Corpuscular Volume 77.1 fL (81-99); Mean Platelet Vol. 11.1 fl (6.2-12.0); Monocyte# 0.98 X10^3/uL; Monocyte% 8.8 % (0-10); NRBC Flagged by Analyzer 0 % (0-5); Neutrophil # 9.89 X10^3/uL (2.7-7.7); Neutrophil % 88.2 % (47-70); POSITIVE DIFFERENTIAL YES; POSITIVE MORPHOLOGY YES; Platelet Count 322 K/mm3 (150-450); RBC Distribution Width CV 27.8 % (11.6-14.6); RBC Distribution Width SD 75.7 fl (35.1-43.9); Red Blood Count 4.58 M/mm3 (4.2-5.4); White Blood Count 11.2 K/mm3 (4.4-11.0)
[2022-11-20 07:17] LABS: Anisocytosis 1+; Differential Comment SCANNED
[2022-11-20] MEDS: Budesonide Respules 0.5 MG/2 ML AMPUL.NEB. INHALATION ×2 (07:43→19:30)
[2022-11-20] MEDS: Ipratropium/Albuterol Sulfate 3 ML AMPUL.NEB INHALATION ×2 (07:43→19:30)
[2022-11-20] MEDS: Potassium Chloride Oral Tablet 10 MEQ 30 MEQ PO (08:26)
[2022-11-20] MEDS: guaiFENesin 1,200 MG Tablet 1200 MG PO ×2 (10:41→21:34)
[2022-11-20] MEDS: Heparin Injection (Vial) 5,000 UNIT/ML VIAL 5000 UNIT SC ×2 (10:41→21:33)
[2022-11-20] MEDS: Colchicine 0.6 MG TABLET PO (10:41)
[2022-11-20] MEDS: Pantoprazole Sodium 20 MG Tablet PO (10:41)
[2022-11-20] MEDS: Aspirin E.C. 81 MG Tablet PO (10:41)
[2022-11-20] MEDS: Clopidogrel Bisulfate 75 MG Tablet PO (10:41)
[2022-11-20] MEDS: Ensure Plus High Protein 120 ML LIQUID PO (10:52)
[2022-11-20] MEDS: Albuterol 2.5 MG/3 ML VIAL.NEB. INHALATION ×2 (11:15→16:07)
[2022-11-20] MEDS: Metoprolol Tartrate 25 MG Tablet 12.5 MG PO ×2 (11:17→21:34)
[2022-11-20] MEDS: Spironolactone 25 MG Tablet PO (11:17)
[2022-11-20] MEDS: LORazepam 0.5 MG Tablet PO (11:37)
--- NOTE | 2022-11-20 11:50 | RAD_ITS ---
STUDY: X-RAY CHEST REASON FOR EXAM: Female, 67 years old. Hypoxia TECHNIQUE: Single AP portable view of the chest. COMPARISON: Comparison is made with prior study November 19, 2022. FINDINGS: EKG markings are seen. There now is evidence of complete opacification of the left hemithorax with shift of the heart and mediastinal structures to the left side of the midline suggestive of atelectasis of the left lung. Stable small right pleural effusion with right basilar atelectasis and/or infiltration. Normal size heart. Normal mediastinum and [place]. Normal visualized pulmonary arteries. Normal visualized aortic arch and descending thoracic aorta. There are diffuse degenerative changes of the visualized thoracic spine. Normal visualized ribs, clavicles, and shoulders. There is no demonstrated abnormality of the visualized soft tissue structures of the upper abdomen. RAD/Chest 1 View (Portable) IMPRESSION: Complete opacification of the left lung with shift of the heart and mediastinal structures towards the left side of the line suggestive of a atelectasis of the left lung and small left effusion. Small right pleural effusion with right basilar atelectasis. Electronically Signed: Bert Hirsch MD at 12:12 EDT ,
--- NOTE | 2022-11-20 12:42 | NURSING ---
1100 DrLeonardo notified of BP and patients c/o chest tightness with more difficulty breathing. Verbal to hold Bumex at this time and okay to give PRN medications with BP. Respiratory called at that time for PRN breathing tx and recommendations. O2 sat 87-88 at 6L O2 NC. Patient given Ativan to help with anxiety. Respiratory increased O2 high flow 8L- O2 sat not better with increase. Pulmonary in to see patient. IV flow rate decreased and start BiPAP per Respiratory therapy started Patient on BiPAP- at 100% on BiPAP before transfer to ICU.
--- NOTE | 2022-11-20 12:54 | EX.PCM.CONCC ---
Assessment & Plan Assessment/Plan (1) Acute and chronic respiratory failure with hypoxia: PLAN: The patient has been placed on noninvasive ventilation to stabilize her respiratory status, at current settings of 12/6, rate 22, FiO2 100%. This will be titrated as necessary - The patient stated she would want to be intubated if necessary, she may need a therapeutic bronchoscopy if routine bronchopulmonary hygiene and noninvasive ventilation fail to stabilize her respiratory status - Postural drainage - Bronchodilator treatment every 4 hours continuously [id number] - Titrate FiO2 to keep saturation greater than 92% - Avoid sedation that could impair her respiratory drive. (2) Complete atelectasis of left lung: PLAN: Bronchopulmonary hygiene initially, followed by therapeutic bronchoscopy if necessary (3) Bronchiectasis, non-tuberculous: PLAN: The etiology of her right middle lobe cystic bronchiectasis with associated bilateral exudative pleural effusions has not been diagnosed, despite a pleural biopsy in 2017, video-assisted thoracoscopy in February 2018 with pleurodesis, a Pleurx catheter and multiple thoracenteses. Notably however the AFB smear and culture on 1 occasion in October 2020 was negative. (4) Cachexia: PLAN: The patient has had approximately 20 pound weight loss since 1 year ago, documented by weight of [address] [facility] 10/28/2021. (5) Recurrent pleural effusion: PLAN: - After many years, the etiology of these bilateral effusions remain undiagnosed. The patient has had bilateral pleural effusions since at least 2019, noncardiac origin. I did not identify a prior bronchoscopy or evaluation for nontuberculous Mycobacterium, nocardia, Acinetobacter, actinomyces, fungus or HIV. I will look further into immunology work-up which may have been ordered by Darrin Meredith DO in October 2020. We will request old pathology, microbiology, mycobacterial, chemistry, and immunologic studies on her pleural fluid from the past. The results that are available in our EMR are summarized in the HPI. I believe the last time pleural fluid chemistries were done were in November 06, 2020. I did not identify a prior PPD or QuantiFERON test. - See orders for additional testing once the patient has been stabilized and old records have been located. (6) History of coronary artery stent placement: PLAN: Interestingly, her BNP's have always been normal except only mild elevation on 1 occasion in October 2020, her echocardiogram June 2022 showed normal left ventricular systolic function with ejection fraction of 60%, and normal RV, no pulmonary hypertension. She has had cardiac stents placed with a non-STEMI, but has no recent angina and her cardiac disease has been well controlled. Therefore it is very unlikely that her bilateral effusions are due to cardiac reasons. She is also showed no signs of right-sided failure or pulmonary hypertension on her single echocardiogram June 2022. (7) COPD (chronic obstructive pulmonary disease): QUALIFIERS: COPD type: unspecified COPD Qualified Code(s): J44.9 - Chronic obstructive pulmonary disease, unspecified PLAN: The patient's pulmonary function tests in February 2014 and October 2020 suggest but not diagnostic of mild to moderate restriction, and mild to moderate COPD which may be underestimated due to decreased forced vital capacity and lack of pre and postbronchodilator studies. No lung volume studies have been done in the records we have. Methacholine challenge testing was not clearly diagnostic of reactive airways disease (positive at high dose methacholine). PLAN: Plan Continue every 4 hour DuoNeb Would hold steroids for now. Manage mechanical impairment due to inability to raise sputum Complete cultures including C&S, AFB smear and culture x3, fungus, and unusual pathogens such as actinomyces, Acinetobacter, nocardia Complete respiratory PCR panel Urine for Legionella and strep QuantiFERON gold test HPI Consult Data Date of Consult: 11/20/22 HPI Narrative Reason for Consultation: Acute on chronic hypoxic respiratory failure, left lung atelectasis HPI Narrative: LOUISE ROSALES, is a 67 F former [id number] smoker quit July 2011, with a very complex pulmonary history. 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 including Dr. Masoud Tripathi. She has had chronic bilateral pleural effusions documented on CT scan with right late mid lung bronchiectasis, apical fibrotic changes, since before 2019, with no clear diagnosis. Highlights of her history include: Pleural biopsy in 2018 [facility] that showed lymphocytic chronic inflammatory change. She had no positive response to a trial of colchicine. Thoracentesis in October 2020 was exudative, with glucose of 105, LDH of 65, protein of 5.0, with negative AFB smear and culture, and negative cytology. At the time BNP was 58 TSH was 4.6 She had a right-sided video-assisted thoracoscopy with pleurodesis talc on the right side 03/14/2018. She had a left-sided Pleurx catheter placed October 06, 2019 for a brief period for chronic and recurrent left pleural effusion, this was removed in the pleural fluid reaccumulated with several subsequent thoracenteses. On 04/30/2021 she had a left thoracentesis of 800 cc, CT angiogram 06/17/2022 had right middle lobe atelectasis/infiltrate with bilateral effusions left greater than right. CT of the chest 06/23/2021 showed fibrocalcific scarring that was stable, loculated effusions and punctate calcified hepatic granuloma. Demeter medial right upper lobe multiple granulomas, 3 mm right apical nodule which was stable and bandlike atelectasis in the right middle/right lower lobes were again noted, with compressive atelectasis of the left lower lobe. On December 03, 2021 she had a left thoracentesis at [facility]. At that time her weight was 102 pounds and note was made of stable right lung apical fibrosis and bilateral left greater than right effusions. On November 17, 2022 she had another left thoracentesis yielding 560 mL of stephen fluid at [facility]. There were no chemistries or other studies available from this fluid. A follow-up thoracentesis on November 19, 2022 was canceled due to loculated fluid in the residual She carries a diagnosis of COPD and is maintained on Combivent which she finds helpful, albuterol as needed, and Singulair. Her exercise tolerance is very limited, but she works at [employer]. Pulmonary function testing 10/29/2020 had a forced vital capacity 53% predicted FEV1 36% predicted, FEV1/FVC 68%, and FEF 25 7519% predicted. No lung volume studies or DLCO was done. Pulmonary function testing February 26, 2014 had a FVC of 72% predicted, FEV1 54% predicted, FEV1/FVC 58%. Methacholine challenge testing was done at that time and showed a 29% drop in FEV1 at 10 mg/mL of methacholine, nonspecific reaction at high dose, and not diagnostic of reactive airways disease. Echocardiogram 07/15/2022 showed normal RV, normal left ventricular systolic function and ejection fraction of 60%. There was no significant tricuspid regurgitation therefore pulmonary artery pressure was not measured. There was a trivial trivial pericardial effusion and a small left pleural effusion. Multiple measurements of BNP were normal except for 1 elevation on 10/29/2020 of 296. Her immunizations are up-to-date including pneumonia vaccine in 2013, Tdap in 2011, 3 Moderna vaccines completed by 2020, yearly influenza vaccination. She came into the hospital today for worsening dyspnea after her thoracentesis of 11/17/2022. Chest x-ray today showed complete atelectasis of the left lung with leftward shift of the mediastinum contents. Clinically, she has a weak cough and rhonchi, unable to expectorate. Likely consistent with mucoid atelectasis. She has been started on noninvasive ventilation with aggressive bronchopulmonary hygiene, which will be followed up with therapeutic bronchoscopy if needed. My discussion with the patient today shows that she would want to be intubated if necessary to save her life. She therefore is verified as a full code. [facility] Medical History (Updated 11/20/22 @ 13:[address] Navi Peterson MD) Acute and chronic respiratory failure with hypoxia Alcohol abuse Angioedema Anxiety Atherosclerotic heart disease of [place] coronary artery without angina pectoris Bilateral pleural effusion Bronchiectasis Bronchiectasis, non-tuberculous Cachexia Complete atelectasis of left lung Congestive heart failure (CHF) Contusion of right lower leg, initial encounter COPD (chronic obstructive pulmonary disease) Edema of right lower extremity Elevated transaminase level Former smoker GERD (gastroesophageal reflux disease) History of non-ST elevation myocardial infarction (NSTEMI) (06/18/20) Hypothyroidism Hypoxia Iatrogenic pneumothorax (06/17/22) Iron deficiency anemia Laceration without foreign body, right lower leg, initial encounter Leg wound, right Myocardial infarct Non-healing ulcer of ankle with fat layer exposed Pericardial effusion Pneumothorax Recurrent pleural effusion Restrictive pericarditis Secondary pulmonary arterial hypertension Severe malnutrition Syncope (06/17/22) Ulcer of right lower extremity with fat layer exposed Home Medications albuterol sulfate 90 mcg/actuation aerosol inhaler 2 puff inhalation Q4H PRN PRN Bronchodialation 09/07/16 [History Last Taken 06/17/22] omeprazole 20 mg capsule,delayed release 40 mg PO DAILY GERD 09/07/16 [History Last Taken 06/17/22] lorazepam 0.5 mg tablet 0.5 mg PO BID PRN PRN Anxiety 09/26/16 [History Last Taken 06/17/22] ascorbic acid (vitamin C) 500 mg chewable tablet 500 mg PO BIDCM supplement ##0 06/20/20 [Rx Last Taken 06/16/22] budesonide 180 mcg/actuation breath activated powder inhaler 1 inh inhalation BID COPD 02/11/21 [History Last Taken 06/17/22] montelukast 10 mg tablet 10 mg PO DAILY 02/11/21 [History Last Taken 06/16/22] vitamin B complex (B Complex-Vitamin B12 tablet) 1 tab PO DAILY 02/11/21 [History Last Taken 06/17/22] colchicine 0.6 mg tablet 0.6 mg PO DAILY gout #30 tabs 01/14/22 [Rx Last Taken 06/16/22] levothyroxine 88 mcg tablet 88 mcg PO MOTUWETHFRSA 01/20/22 [History Last Taken 06/17/22] metoprolol tartrate 25 mg tablet 12.5 mg PO BID #120 tabs 01/20/22 [Rx Last Taken 06/17/22] potassium chloride 10 mEq tablet,extended release 60 meq PO BID 01/20/22 [History Last Taken 06/17/22] spironolactone 25 mg tablet 25 mg PO DAILY #90 tabs 03/23/22 [Rx Last Taken 06/16/22] acetaminophen 500 mg tablet 1,000 mg PO Q6H PRN Pain 06/17/22 [History Last Taken 06/16/22] guaifenesin 1,200 mg tablet, extended release 12 hr (Mucinex) 1,200 mg PO BID CONGESTION 06/17/22 [History Last Taken 06/17/22] levothyroxine 88 mcg tablet 132 mcg PO GEORGES 06/17/22 [History Last Taken 06/14/22] ipratropium 20 mcg-albuterol 100 mcg/actuation mist for inhalation 1 puff inhalation Q4H #4 grams 07/08/22 [Rx Last Taken Unknown] multivitamin 1 tab PO DAILY supplement 07/08/22 [History Last Taken Unknown] aspirin 81 mg tablet,delayed release 81 mg PO DAILY #90 tabs 09/01/22 [Rx Last Taken Unknown] atorvastatin 40 mg tablet 40 mg PO QHS #90 tabs 09/01/22 [Rx Last Taken Unknown] clopidogrel 75 mg tablet 75 mg PO DAILY #90 tabs 09/01/22 [Rx Last Taken Unknown] bumetanide 1 mg tablet 1 mg PO DAILY water pill #90 tabs 09/21/22 [Rx Last Taken Unknown] alendronate 70 mg tablet tablet PO 10/01/22 [History Last Taken 11/05/22 06:00] Allergy/AdvReac Type Severity Reaction Status Date / Time amoxicillin [From Augmentin] Allergy Rash Verified 11/19/22 18:15 clavulanic acid Allergy Rash Verified 11/19/22 18:15 [From Augmentin] doxycycline Allergy Rash Verified 11/19/22 18:15 tiotropium AdvReac Unknown PT UNSURE Verified 11/19/22 18:15 OF REACTION budesonide [From Symbicort] AdvReac high Verified 11/19/22 18:15 feeling bumetanide AdvReac PT UNSURE Verified 11/19/22 18:15 OF REACTION cefdinir AdvReac Bleeding Verified 11/19/22 18:15 clindamycin AdvReac Abd Verified 11/19/22 18:15 cramps/diarrhea fluticasone [From Flonase] AdvReac HEADACHES Verified 11/19/22 18:15 formoterol [From Symbicort] AdvReac HIGH Verified 11/19/22 18:15 FEELING furosemide AdvReac NEEDS Verified 11/19/22 13:12 FOLLOW-UP spironolactone AdvReac NEEDS Verified 11/19/22 13:12 FOLLOW-UP umeclidinium AdvReac Shortness Verified 11/19/22 13:12 of breath Family History Mother Colon cancer Father Heart disease Surgical History History of coronary artery stent placement (06/18/20) History of right and left heart catheterization (05/01/20) History of thoracentesis (06/17/22) Social History Smoking Status: Former smoker alcohol intake: current alcohol intake frequency: holidays/special occasions only substance use type: does not use caffeine: Yes Type: coffee Number of servings: 1 ROS ROS Narrative The patient was too short of breath today on 15 L of oxygen and saturation of 85% to 2 a review of systems. Physical Exam Narrative Well-developed cachectic woman, in moderate respiratory distress, somewhat lethargic after having been given Ativan 0.5 mg IV. Her weight and October 2021 was noted to be 102 pounds. Today she is 84 pounds. HEENT: Normocephalic atraumatic, musculature and soft tissue of the face neck?supraclavicular areas are sunken consistent with cachexia. Mouth has dry mucous membranes, no thrush Chest has bilateral rhonchi that are audible in the room, ineffective cough, states she produces brownish sputum which was not visible today. There are no wheezes. There is poor air movement. Rhonchi are present, diminished breath sounds on the left. Heart tachycardic S1-S2 with no murmurs Abdomen is soft, nontender, small umbilical hernia present easily reducible. No masses. Extremities have no clubbing cyanosis or edema. Neuro is grossly nonfocal, she is sleepy but able to give a reasonable short history about immediate symptoms. Skin is cool and dry. Hair is not coarse. Medical Records Data Attestation: I reviewed the patient's medical records Medical records narrative: Summarized in HPI from [facility]'s pulmonary consultations. 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 Status Active Problem Recommendation Dietitian Recommendations/Changes Continue regular diet as ordered Continue 4 oz ensure plus high protein 4x/day w/ medpass Provide 4 oz ensure clear tid w/ meals Lab / Micro Data Attestation: I reviewed the patient's lab results. Lab results narrative: Pleural fluid results from 11/06/2020 were as in HPI. Pulmonary function studies HPI. Result Diagrams: 11/20/22 06:21 11/19/22 13:25 Labs: Laboratory Results - last 24 hr 11/19/22 13:25: WBC 11.7 H, RBC 4.78, Hgb 11.1 L, Hct 35.7 L, MCV 74.7 L, MCH 23.2 L, MCHC 31.1 L, RDW Std Deviation 72.4 H, RDW Coeff of Angie 27.4 H, Plt Count 332, MPV 10.9, Immature Gran % (Auto) 0.700, Neut % (Auto) 88.5 H, Lymph % (Auto) 2.4 L, Lanier % (Auto) 8.0, Eos % (Auto) 0.1, Baso % (Auto) 0.3, Absolute Neuts (auto) 10.3 H, Absolute Lymphs (auto) 0.28 L, Nucleated RBC % 0, Differential Comment SCANNED, Hypochromasia 2+, Target Cells 1+, Crenated Cell 1+ 11/19/22 13:25: Sodium 134 L, Potassium 3.9, Chloride 103, Carbon Dioxide 26.0, Anion Gap 5, BUN 29 H, Creatinine 0.78, Estim Creat Clear Calc 47.11, Est GFR (MDRD) Af Amer 95, Est GFR (MDRD) Non-Af 79, BUN/Creatinine Ratio 37.2 H, Glucose 103, Calcium 9.2, Troponin I High Sens 4 11/20/22 06:21: WBC 11.2 H, RBC 4.58, Hgb 10.4 L, Hct 35.3 L, MCV 77.1 L, MCH 22.7 L, MCHC 29.5 L D, RDW Std Deviation 75.7 H, RDW Coeff of Angie 27.8 H, Plt Count 322, MPV 11.1, Immature Gran % (Auto) 0.500, Neut % (Auto) 88.2 H, Lymph % (Auto) 2.1 L, Lanier % (Auto) 8.8, Eos % (Auto) 0.0, Baso % (Auto) 0.4, Absolute Neuts (auto) 9.9 H, Absolute Lymphs (auto) 0.23 L, Nucleated RBC % 0, Differential Comment SCANNED, Anisocytosis 1+ Rhythm Strip Rhythm Strip: Sinus Tach Rate: 109 Radiology Impression Chest X-Ray 11/19/22 13:40 IMPRESSION: Increasing left pleural effusion with left basilar atelectasis and/or infiltration. Electronically Signed: Bert Hirsch MD at 14:24 EDT , Chest Ultrasound 11/19/22 14:08 IMPRESSION: Multiloculated collection at the left lung base. Electronically Signed: Bert Hirsch MD at 15:33 EDT , Chest X-Ray 11/20/22 11:50 IMPRESSION: Complete opacification of the left lung with shift of the heart and mediastinal structures towards the left side of the line suggestive of a atelectasis of the left lung and small left effusion. Small right pleural effusion with right basilar atelectasis. Electronically Signed: Bert Hirsch MD at 12:12 EDT , Charges/Coding Procedures Hospitalists Procedures: [id number] Critial Care 1st Hr (and [id number] due to 2 hours of critical care time, review of old complex records, bedside management of respiratory failure. No procedures are included. )
--- NOTE | 2022-11-20 13:25 | NURSING ---
Attempted to call son Bijan x 2 to update. Left message to return call.
--- NOTE | 2022-11-20 13:48 | NURSING ---
Spoke with Lavon Bruno and Bijan, Updated on transfer to ICU.
[2022-11-20 14:43] LABS: Lactic Acid 1.1 mmol/L (0.4-1.9)
--- NOTE | 2022-11-20 15:00 | RAD_ITS ---
INDICATION: L lung atelectasis, after BiPAP and chest PT EXAMINATION/TECHNIQUE: X-RAY - XR Chest 1 View COMPARISON: November 20, 2022 at 11:47 hours. FINDINGS: LINES/DEVICES: None. LUNGS: There is a moderate left pleural effusion with left infiltrates, improved since the previous study. Mild right pleural effusion with basilar consolidation/atelectasis. No pneumothorax. MEDIASTINUM AND CARDIOVASCULAR STRUCTURES: Cardiac silhouette not enlarged. Central airways and mediastinal contour are unremarkable. BONES AND SOFT TISSUES: Unremarkable. RAD/Chest 1 View (Portable) IMPRESSION: There is a moderate left pleural effusion with left infiltrates, improved since the previous study. Mild right pleural effusion with basilar consolidation/atelectasis. Electronically Signed: Goran Restrepo DO at 22:39 EDT Reading Location ID and State: [facility] / [place] Tel [phone], Service support ,
--- NOTE | 2022-11-20 15:01 | PCM.PN.HOSP ---
Reason for Visit Reason for Visit: Diagnoses Chronic obstructive pulmonary disease, unspecified (11/20/22) Bronchiectasis, uncomplicated (11/20/22) Pleural effusion, not elsewhere classified (11/20/22) Acute and chronic respiratory failure with hypoxia (11/20/22) Atelectasis (11/20/22) Dyspnea, unspecified (11/20/22) Cachexia (11/20/22) Presence of coronary angioplasty implant and graft (11/20/22) Subjective Subjective Was seen and examined today, her oxygen requirement elevated this morning and she had to be placed on BiPAP, she was transferred into the ICU and a chest x-ray was obtained which showed complete opacification of the left lung with a shift of the heart and mediastinal structures for the left side suggestive of atelectasis of the left lung with a small left effusion. Patient will be seen by critical care, early this afternoon she spiked a temperature and I placed her on meropenem, obtained a lactic acid and blood cultures as well as sputum cultures and urine cultures. Objective Data Objective Data Vital Signs: Vital Signs Temp Pulse Resp BP Pulse Ox O2 Del Method O2 Flow Rate 103 F H 115 H 22 H 107/71 94 Bi-pap 12 11/20/22 14:00 11/20/22 14:00 11/20/22 14:00 11/20/22 14:00 11/20/22 14:00 11/20/22 14:00 11/20/22 11:57 FiO2 75 11/20/22 14:00 Oxygen Flow Rate (L/min) 12 Oxygen Delivery Method Bi-pap Weight: 38.51 kg Body Mass Index (BMI) 17.7 Intake & Output: Intake and Output for Last 24 Hours 11/18/22 11/19/22 11/20/22 23:59 23:59 23:59 Intake Total 1005.67 / 1005.67 Balance 1005.67 / 1005.67 Medical Nutrition Assessment Dietitian: Malnutrition Criteria Met Start: 11/20/22 11:25 Freq: Status: Active Protocol: Document 11/20/22 11:26 JAYCE (Rec: 11/20/22 11:26 JAYCE [id number]) Nutrition Malnutrition Evidence of Malnutrition Exists Yes Malnutrition (moderate): Chronic Evidenced By Suboptimal Energy Intake ( Severe),Physical Changes ( Moderate) Clinical Problem Chronic Disease or Condition Related Malnutrition Etiology related to inadequate oral energy intake Signs/Symptoms as evidenced by lousy appetite and 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 Status Active Problem Recommendation Dietitian Recommendations/Changes Continue regular diet as ordered Continue 4 oz ensure plus high protein 4x/day w/ medpass Provide 4 oz ensure clear tid w/ meals Lab / Micro Data Result Diagrams: 11/20/22 06:21 11/19/22 13:25 Labs: Laboratory Results - last 24 hr 11/20/22 06:21: WBC 11.2 H, RBC 4.58, Hgb 10.4 L, Hct 35.3 L, MCV 77.1 L, MCH 22.7 L, MCHC 29.5 L D, RDW Std Deviation 75.7 H, RDW Coeff of Angie 27.8 H, Plt Count 322, MPV 11.1, Immature Gran % (Auto) 0.500, Neut % (Auto) 88.2 H, Lymph % (Auto) 2.1 L, [place] % (Auto) 8.8, Eos % (Auto) 0.0, Baso % (Auto) 0.4, Absolute Neuts (auto) 9.9 H, Absolute Lymphs (auto) 0.23 L, Nucleated RBC % 0, Differential Comment SCANNED, Anisocytosis 1+ 11/20/22 14:00: Lactic Acid 1.1 Radiography Diagnostic Testing: Radiology Impression Chest Ultrasound 11/19/22 14:08 IMPRESSION: Multiloculated collection at the left lung base. Electronically Signed: Bert Hirsch MD at 15:33 EDT , Chest X-Ray 11/20/22 11:50 IMPRESSION: Complete opacification of the left lung with shift of the heart and mediastinal structures towards the left side of the line suggestive of a atelectasis of the left lung and small left effusion. Small right pleural effusion with right basilar atelectasis. Electronically Signed: Bert Hirsch MD at 12:12 EDT , Rhythm Strip Rhythm Strip: Sinus Tach Rate: 109 Physical Exam Const alert and oriented x3 Constitutional Narrative: Patient appears much older than her stated age, she appears cachectic and unwell General Appearance: cooperative, well kempt and well developed Orientation / Consciousness: awake, oriented to person, oriented to place and oriented to time HEENT normocephalic, head/scalp atraumatic and moist oral mucous membranes Eyes PERRL, EOMs intact bilaterally and conjunctivae normal Neck supple, no JVD, thyroid normal and no carotid bruits General: trachea midline Resp Resp Narrative: Patient is using accessory muscles, she appears dyspneic, lung sounds are distant bilaterally worse on the left Auscultation: Negative for rales, rhonchi or wheezes Cardio regular rate, regular rhythm, S1 normal heart sound, S2 normal heart sound, no murmurs, no rub and no gallops GI normal to inspection, nondistended, normoactive bowel sounds, soft to palpation, non-tender and non-distended Extremity no clubbing, cyanosis or edema Skin no rashes or lesions noted General Skin Exam: no breakdown Neuro oriented x3, CN's II-XII intact bilaterally, moves all extremities, no focal motor deficits and no sensory deficits noted Sensorium / Orientation: awake, alert, oriented to person and oriented to place Speech: speech normal Psych affect normal Assessment & Plan Assessment/Plan (1) Acute and chronic respiratory failure with hypoxia: (2) Acute dyspnea: PLAN: Plan 1. Acute on chronic hypoxic respiratory failure-secondary to atelectasis of the left lung, left pleural effusion, and possible community-acquired pneumonia-again patient was moved to the ICU, she was placed on meropenem, she will be seen by pulmonary medicine and monitored closely, according to pulmonary medicine, patient wants to be a full code. At the present time, patient is on a waiting list for [facility] transfer to address her chronic left pleural effusion. #2 recurrent left pleural effusion-etiology unclear, patient is awaiting transfer to [facility] for evaluation of treatment for this pleural effusion. #3 chronic hypoxic respiratory failure-patient is on 2 L of oxygen at home #4 hyperlipidemia-patient is on Lipitor #5 chronic severe protein and caloric malnutrition-patient will be seen by nutritional services #6 chronic obstructive pulmonary disease-patient will continue on aerosol treatments #7 coronary artery disease-patient will remain on Plavix and aspirin #8 hypothyroidism-patient will remain on Synthroid #9 essential hypertension-patient will remain on her home medications #10 chronic diastolic congestive heart failure-patient remains on Bumex Total clinical time spent by myself addressing the patient's medical issues, reviewing all of her data, and collaborating with patient's care team: 35 minutes Charges/Coding Visit Charges Inpatient E&M: 68190 Subs Hosp L2
[2022-11-20 15:21] LABS: Base Excess 2 mmol/L (-2 to +2); Bicarbonate 27.1 mmol/L (22-26); Blood Gas Specimen Type ART; FI02 70; O2 Delivery Device BiPAP; PEEP 6; PO2 67 mmHG (75-100); PS 12; SITE R Brach; SO2 92 % (95-99); Total Carbon Dioxide 29 mmol/L; pH 7.37 (7.35-7.45)
--- NOTE | 2022-11-20 17:49 | CPS ---
Patient did not tolerate laying flat or trendelenbug for the vest. She could only tolerate 2 minutes of the vest.
[2022-11-20] MEDS: 0.9% Normal Saline 250 ML IV.SOLN. IV (20:55)
[2022-11-20] MEDS: Montelukast 10 MG Tablet PO (21:34)
[2022-11-20] MEDS: Atorvastatin Calcium 40 MG Tablet PO (21:34)
[2022-11-20] MEDS: Temazepam 15 MG Capsule PO (22:02)
[2022-11-21] VITALS (36 sets, daily range): BP systolic 78–108; BP diastolic 44–77; PULSE 100–128; RESP 11–28; TEMP 36.8–38.8; O2SAT 83–100; BMI 19.1
--- NOTE | 2022-11-21 00:13 | NURSING ---
[facility] call center called to check on pt status; informed that pt was transferred to ICU status on 11/20 around noon d/t increased O2 demands and placed on NIV for extended pleural effusion. This RN informed since pt was given a tele bed, and pt is no longer tele status she is being placed on a different wait list for one of [facility]'s unit beds.
[2022-11-21] MEDS: Ipratropium/Albuterol Sulfate 3 ML AMPUL.NEB INHALATION ×4 (01:30→19:16)
--- NOTE | 2022-11-21 06:03 | RAD_ITS ---
STUDY: XR Chest 1 View 11/21/2022 5:59 AM REASON FOR EXAM: Female, 67 years old. CHEST PAIN left pneumonia COMPARISON: Study done yesterday TECHNIQUE: XR Chest 1 View FINDINGS: There are bilateral pleural effusions. There are bilateral infiltrates. There are multiple overlying cardiac monitoring leads. There is no pneumothorax. Left apical mass. Enlarged heart size. Normal mediastinum. Normal agapito. Prominent appearing increased interstitial lung markings. Normal visualized pulmonary arteries. There is atherosclerotic calcification of the aortic arch with tortuosity. There are diffuse degenerative changes of the visualized thoracic spine. There is degenerative osteoarthritis of the bilateral shoulders. There is no demonstrated abnormality of the visualized soft tissue structures of the upper abdomen. RAD/Chest 1 View (Portable) IMPRESSION: Pulmonary findings appear worse. Electronically Signed: Gee Cloud MD at 16:37 EDT ,
--- NOTE | 2022-11-21 06:34 | NURSING ---
[facility] call center notified this RN that it will be days before a unit bed is open to accept this pt. Center recommended placing pt at a different facility. informed.
[2022-11-21] MEDS: Budesonide Respules 0.5 MG/2 ML AMPUL.NEB. INHALATION (07:23)
[2022-11-21] MEDS: Potassium Chloride Oral Tablet 10 MEQ 30 MEQ PO (08:07)
[2022-11-21] MEDS: Bumetanide 2 MG Tablet 1 MG PO (08:08)
[2022-11-21] MEDS: Spironolactone 25 MG Tablet PO (08:08)
[2022-11-21] MEDS: Metoprolol Tartrate 25 MG Tablet 12.5 MG PO (08:09)
[2022-11-21] MEDS: Colchicine 0.6 MG TABLET PO (08:09)
[2022-11-21] MEDS: Aspirin E.C. 81 MG Tablet PO (08:09)
[2022-11-21] MEDS: Heparin Injection (Vial) 5,000 UNIT/ML VIAL 5000 UNIT SC ×2 (08:11→22:25)
[2022-11-21] MEDS: Clopidogrel Bisulfate 75 MG Tablet PO (08:11)
[2022-11-21] MEDS: Pantoprazole Sodium 20 MG Tablet PO (08:11)
[2022-11-21] MEDS: Morphine 2 MG/ML Syringe IV (08:27)
[2022-11-21 08:55] LABS: Base Excess 0 mmol/L (-2 to +2); Bicarbonate 25.8 mmol/L (22-26); Blood Gas Specimen Type ART; Comment 12; FI02 80; O2 Delivery Device BiPAP; PEEP 8; PO2 53 mmHG (75-100); SITE R Radial; SO2 85 % (95-99); Total Carbon Dioxide 27 mmol/L; pCO2 48.3 mmHg (35-45); pH 7.34 (7.35-7.45)
[2022-11-21 11:06] LABS: Allen Test Positive; Base Excess 2 mmol/L (-2 to +2); Bicarbonate 28.1 mmol/L (22-26); Blood Gas Specimen Type ART; FI02 100; O2 Delivery Device BiPAP; PEEP 6; PO2 73 mmHG (75-100); SITE R Radial; SO2 93 % (95-99); Total Carbon Dioxide 30 mmol/L; pCO2 53.1 mmHg (35-45); pH 7.33 (7.35-7.45)
--- NOTE | 2022-11-21 12:51 | PN.HOSP_ITS ---
Reason for Visit Reason for Visit: Diagnoses Chronic obstructive pulmonary disease, unspecified (11/20/22) Bronchiectasis, uncomplicated (11/20/22) Pleural effusion, not elsewhere classified (11/20/22) Acute and chronic respiratory failure with hypoxia (11/20/22) Atelectasis (11/20/22) Dyspnea, unspecified (11/20/22) Cachexia (11/20/22) Presence of coronary angioplasty implant and graft (11/20/22) Subjective Subjective Patient was seen and examined today, she remains on BiPAP, chest x-ray shows continued atelectasis of the left lung. Patient is currently on BiPAP with 100% oxygen. Arterial blood gas today showed a pH of 7.33, PCO2 of 53, and a PO2 of 73. Objective Data Objective Data Vital Signs: Vital Signs Temp Pulse Resp BP Pulse Ox O2 Del Method O2 Flow Rate 101.8 F H 115 H 23 H 96/64 92 Bi-pap 15 11/21/22 12:00 11/21/22 12:00 11/21/22 12:00 11/21/22 12:00 11/21/22 12:00 11/21/22 12:00 11/20/22 16:00 FiO2 100 11/21/22 12:00 Oxygen Flow Rate (L/min) 15 Oxygen Delivery Method Bi-pap Weight: 41.2 kg Body Mass Index (BMI) 19.1 Intake & Output: Intake and Output for Last 24 Hours 11/19/22 11/20/22 11/21/22 23:59 23:59 23:59 Intake Total 1125.67 / 1365.67 360 / 360 Output Total 450 / 550 600 / 600 Balance 675.67 / 815.67 -240 / -240 Medical Nutrition Assessment Dietitian: Malnutrition Criteria Met Start: 11/20/22 11:25 Freq: Status: Active Protocol: Document 11/21/22 11:22 RMA (Rec: 11/21/22 11:22 RMA [id number]) Nutrition Malnutrition Evidence of Malnutrition Exists Yes Malnutrition (severe): Chronic Evidenced By Suboptimal Energy Intake ( Severe),Weight Loss (Severe), Physical Changes (Moderate) Intake Problem Inadequate Oral Intake Etiology related to increased oxygen needs/BiPAP Signs/Symptoms as evidenced by NPO Status Active Problem Clinical Problem Chronic Disease or Condition Related Malnutrition Etiology Severe protein-calorie malnutrition in the context of chronic disease related to inadequate oral/energy intake Signs/Symptoms as evidenced by currently NPO, 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 Resume PO diet as tolerated with liberalized regular diet and ONS for additional greyson/pro . Resume 120 ml ensure plus high protein 4 times per day w/ medpass as able to take PO nutrition. Enteral nutrition support as needed if pt will require intubation; will follow-up. Lab / Micro Data Result Diagrams: 11/20/22 06:21 11/19/22 13:25 Labs: Laboratory Results - last 24 hr 11/20/22 14:00: Lactic Acid 1.1 Micro: Microbiology 11/20/22 15:55 Sputum, Expectorated/Coughed Respiratory Culture - Preliminary Mixed normal respiratory dayana. No Haemophilus, Streptococcus pneumoniae, beta-hemolytic Streptococcus or Staphylococcus aureus isolated. 11/20/22 13:50 Urine Catheter - Catheter Urine Culture - Preliminary Culture exhibits no growth. 11/20/22 14:00 Blood Culture (Wb) - Anticubital Left Bacteria Detection (PCR) - Final Streptococcus pneumonia Ag 11/20/22 14:00 Blood Culture (Wb) - Anticubital Left Blood Culture - Preliminary 11/20/22 13:55 Blood Culture (Wb) - Anticubital Right Blood Culture - Preliminary 11/20/22 14:57 Mucosa - Nasopharyngeal Influenza Types A,B Direct FA (SAMANTHA) - Final 11/20/22 13:50 Urine Catheter - Catheter Legionella Antigen - Final 11/20/22 13:50 Urine Catheter - Catheter Streptococcus pneumoniae Antigen (M - Final ABG Data ABG results: ABG 11/20/22 11/21/22 11/21/22 15:17 08:52 11:00 Specimen Type ART ART ART Sample Site R Brach R Radial R Radial pH 7.37 7.34 L 7.33 L Bicarbonate Actual 27.1 H 25.8 28.1 H Total CO2 29 27 30 Base Excess 2 0 2 O2 Saturation 92 L 85 L 93 L O2 % 70 80 100 ABG pCO2 47.0 H 48.3 H 53.1 H ABG pO2 67 L 53 L 73 L Finesse Test Positive O2 Delivery Device BiPAP BiPAP BiPAP POC PEEP 6 8 6 POC Pressure Suppt 12 Clinical Comments 12 Rhythm Strip Rhythm Strip: Sinus Tach Rate: 109 Physical Exam Narrative alert, oriented x3 and no apparent distress Constitutional Narrative: Patient appears frail and cachectic and unwell General Appearance: cooperative and well kempt Orientation / Consciousness: awake, oriented to person, oriented to place and oriented to time HEENT normocephalic, head/scalp atraumatic, hearing grossly normal bilaterally and moist oral mucous membranes Eyes PERRL, EOMs intact bilaterally and conjunctivae normal Neck supple, no JVD, thyroid normal and no carotid bruits General: trachea midline Resp normal respiratory effort, no retractions and no use of accessory muscles Resp Narrative: Breath sounds are distant bilaterally Auscultation: Negative for rales, rhonchi or wheezes Cardio regular rate, regular rhythm, S1 normal heart sound, S2 normal heart sound, no murmurs, no rub and no gallops GI normal to inspection, nondistended, normoactive bowel sounds, soft to palpation, non-tender and non-distended Extremity no clubbing, cyanosis or edema Skin no rashes or lesions noted General Skin Exam: no breakdown Neuro oriented x3, CN's II-XII intact bilaterally, moves all extremities, no focal motor deficits and no sensory deficits noted Sensorium / Orientation: awake, alert, oriented to person, oriented to place and oriented to time Speech: speech normal Psych affect normal Assessment & Plan Assessment/Plan (1) Acute and chronic respiratory failure with hypoxia: (2) Acute dyspnea: PLAN: Plan 1. Acute on chronic hypoxic respiratory failure-secondary to atelectasis of the left lung, left pleural effusion, and possible community-acquired pneumonia- patient remains on IV antibiotics and BiPAP as well as aerosol treatments. [facility] had called last night and confirmed that she had been on a medical floor but because she was in the ICU, this transfer was canceled. I have elected at this time not to try to get the patient back up to [facility], I believe her condition is too frail right now for transport. Critical care is participating in her care at this time. #2 recurrent left pleural effusion-etiology unclear, at this time, patient's transfer to [facility] has been canceled #3 chronic hypoxic respiratory failure-patient is on 2 L of oxygen at home #4 hyperlipidemia-patient is on Lipitor #5 chronic severe protein and caloric malnutrition-patient will be seen by nutritional services #6 chronic obstructive pulmonary disease-patient will continue on aerosol treatments #7 coronary artery disease-patient will remain on Plavix and aspirin #8 hypothyroidism-patient will remain on Synthroid #9 essential hypertension-patient will remain on her home medications #10 chronic diastolic congestive heart failure-patient remains on Bumex Total clinical time spent by myself addressing the patient's medical issues, reviewing all of her data, and collaborating with patient's care team: 39 [address] Charges/Coding Visit Charges Inpatient E&M: 75508 Subs Hosp L2
[2022-11-21] MEDS: Propofol 10MG/Ml 1,000 MG/100 ML Bottle 2.5 MG CONT INF (14:45)
[2022-11-21] MEDS: Succinylcholine Chloride 200 MG/10 ML SYRINGE 50 MG IV (14:48)
[2022-11-21] MEDS: Midazolam 2 MG/2 ML Syringe 5 MG IV (14:48)
--- NOTE | 2022-11-21 14:52 | NURSING ---
Patient placed in trendelenberg by Dr Peterson after being placed on the ventilator.
--- NOTE | 2022-11-21 14:52 | NURSING ---
Per Dr. Peterson turn propofol up to 20mcg/kg/min at this time
--- NOTE | 2022-11-21 14:56 | PCM.OP.PRO ---
Assessment & Plan Assessment/Plan (1) Acute and chronic respiratory failure with hypoxia: PLAN: Patient failed ICU trial of bronchopulmonary hygiene with noninvasive ventilation, proceeding to intubation and ventilation for tenuous oxygenation and inability to manage secretions (2) Complete atelectasis of left lung: Procedure Report Date of Procedure: 11/21/22 The course of treatment was discussed with the patient, and the need to move to intubation for better airway and secretion management and stabilization of hypoxia was discussed. She agreed to intubation. Her son was also informed of the change in plan and the need to escalate care. Patient had been n.p.o. for 2 days except for morning meds with a sip of water. After giving 4 mg of Versed in divided aliquots, and succinylcholine 50 mg IV x1, she was intubated directly off BiPAP with a 7.5 endotracheal tube on the first pass without difficulty. The tube was secured at 23 cm at the teeth, with good color change in the CO2 colorimeter, equal breath sounds bilaterally, and maintenance of O2 saturation greater than 90% throughout the procedure. No significant hypotension was noted. Chest x-ray is ordered, initial ventilator settings are tidal volume 325 times rate 25 x 7 PEEP x 100% Tolerated well. Procedures Pulmonary 9xxxx: [id number] Insert emergency airway
--- NOTE | 2022-11-21 15:00 | RAD_ITS ---
STUDY: XR Chest 1 View 11/21/2022 2:55 PM REASON FOR EXAM: Female, 67 years old. CHEST PAIN intubated- ETT PLACEMENT COMPARISON: Study done earlier today. TECHNIQUE: XR Chest 1 View FINDINGS: There are bilateral pleural effusions. There are bilateral infiltrates. There is an NGT and ET tube in place. There is no pneumothorax. Left apical mass. Normal heart size. Normal mediastinum. Normal agapito. Prominent appearing increased interstitial lung markings. Normal visualized pulmonary arteries. There is atherosclerotic calcification of the aortic arch with tortuosity. There are diffuse degenerative changes of the visualized thoracic spine. There is degenerative osteoarthritis of the bilateral shoulders. There is no demonstrated abnormality of the visualized soft tissue structures of the upper abdomen. RAD/CXR for Line Placement IMPRESSION: Pulmonary findings appear improved. Electronically Signed: Gee Cloud MD at 16:18 EDT ,
--- NOTE | 2022-11-21 15:03 | PN.CC_ITS ---
Assessment & Plan Assessment/Plan (1) Acute and chronic respiratory failure with hypoxia: (2) Complete atelectasis of left lung: (3) Cachexia: (4) Bronchiectasis, non-tuberculous: (5) Recurrent pleural effusion: PLAN: Plan 1. Acute on chronic respiratory failure: Patient has been intubated, and the team was immediately able to suction copious amounts of green thick sputum, with rapid improvement in aeration of the left lung. See postintubation chest x-ray which shows residual left upper lobe atelectasis but clearing of most of the remainder of the left lung. Right side has basilar infiltrate/atelectasis. - Titrate vent settings as needed - Avoid barotrauma - Frequent suctioning and lavage of airway, add therapeutic bronchoscopy if necessary - Sedate to RASS of 0 to -2 - Monitor daily CBC, electrolytes, liver function, ABG and chest x-ray while on ventilator - Reactivate plan to transfer to [facility] for higher level of care regarding VATS pleurodesis of the left pleural space after her pneumonia improves. ([facility] rejected her this morning since she had deteriorated and was on constant BiPAP, making her too unstable for transfer.) 2. Atelectasis of the left lung: This was due to mucous plugging, at some point she should have bronchoscopy to rule out endobronchial lesion and consider biopsies to better understand why she has had recurrent bilateral pleural effusions that have been undiagnosed for years in the setting of a normal ejection fraction. - Sputum C&S, with special plating as needed for nocardia, actinomyces, Acinetobacter, pneumocystis -AFB smear and culture for atypical mycobacteria x3 - Sputum for fungal culture - Sputum for cytology 3. Cachexia - Tube feeds to start with high-protein supplements, caution regarding refeeding 4. Chronic bronchiectasis of right middle lobe 5. Recurrent bilateral pleural effusion, now only on the left due to previous right-sided VATS talc pleurodesis 2018 - Transfer to [facility] for thoracic surgery to consider talc pleurodesis on the left. Unfortunately patient may be a poor surgical candidate due to her progressive weight loss. Other problems as previously noted Subjective Subjective Patient only able to speak a few word sentences. She has been dependent on the BiPAP at 15/6, on 100% FiO2, rate of 15 and is overbreathing at 25. She has not been able to cough productively or manage her secretions. She is extremely weak and will require ventilation to which she agreed. Objective Data Objective Data Vital Signs: Vital Signs Temp Pulse Resp BP Pulse Ox O2 Del Method O2 Flow Rate 101.8 F H 120 H 28 H 96/64 91 Bi-pap 15 11/21/22 12:00 11/21/22 13:35 11/21/22 13:35 11/21/22 12:00 11/21/22 13:35 11/21/22 12:00 11/20/22 16:00 FiO2 100 11/21/22 13:35 Oxygen Flow Rate (L/min) 15 Oxygen Delivery Method Bi-pap changed to mechanical ventilation at 325 tidal volume AC, times rate 25, times PEEP of 7, FiO2 100%. Weight: 90 lb 13.287 oz Body Mass Index (BMI) 19.1 Intake & Output: Intake and Output for Last 24 Hours 11/19/22 11/20/22 11/21/22 23:59 23:59 23:59 Intake Total 1125.67 / 1365.67 480.33 / 480.33 Output Total 450 / 550 600 / 600 Balance 675.67 / 815.67 -119.67 / -119.67 Medical Nutrition Assessment Dietitian: Malnutrition Criteria Met Start: 11/20/22 11:25 Freq: Status: Active Protocol: Document 11/21/22 11:22 RMA (Rec: 11/21/22 11:22 RMA [id number]) Nutrition Malnutrition Evidence of Malnutrition Exists Yes Malnutrition (severe): Chronic Evidenced By Suboptimal Energy Intake ( Severe),Weight Loss (Severe), Physical Changes (Moderate) Intake Problem Inadequate Oral Intake Etiology related to increased oxygen needs/BiPAP Signs/Symptoms as evidenced by NPO Status Active Problem Clinical Problem Chronic Disease or Condition Related Malnutrition Etiology Severe protein-calorie malnutrition in the context of chronic disease related to inadequate oral/energy intake Signs/Symptoms as evidenced by currently NPO, 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 Resume PO diet as tolerated with liberalized regular diet and ONS for additional greyson/pro . Resume 120 ml ensure plus high protein 4 times per day w/ medpass as able to take PO nutrition. Enteral nutrition support as needed if pt will require intubation; will follow-up. Lab / Micro Data Result Diagrams: 11/20/22 06:21 11/19/22 13:25 Micro: Microbiology 11/20/22 15:55 Sputum, Expectorated/Coughed Gram Stain - Final 11/20/22 15:55 Sputum, Expectorated/Coughed Respiratory Culture - Preliminary Mixed normal respiratory dayana. No Haemophilus, Streptococcus pneumoniae, beta-hemolytic Streptococcus or Staphylococcus aureus isolated. 11/20/22 13:50 Urine Catheter - Catheter Urine Culture - Preliminary Culture exhibits no growth. 11/20/22 14:00 Blood Culture (Wb) - Anticubital Left Bacteria Detection (PCR) - Final Streptococcus pneumonia Ag 11/20/22 14:00 Blood Culture (Wb) - Anticubital Left Blood Culture - Prelimi nary 11/20/22 13:55 Blood Culture (Wb) - Anticubital Right Blood Culture - Preliminary 11/20/22 14:57 Mucosa - Nasopharyngeal Influenza Types A,B Direct FA (SAMANTHA) - Final 11/20/22 13:50 Urine Catheter - Catheter Legionella Antigen - Final 11/20/22 13:50 Urine Catheter - Catheter Streptococcus pneumoniae Antigen (M - Final ABG Data ABG results: ABG 11/20/22 11/21/22 11/21/22 15:17 08:52 11:00 Specimen Type ART ART ART Sample Site R Brach R Radial R Radial pH 7.37 7.34 L 7.33 L Bicarbonate Actual 27.1 H 25.8 28.1 H Total CO2 29 27 30 Base Excess 2 0 2 O2 Saturation 92 L 85 L 93 L O2 % 70 80 100 ABG pCO2 47.0 H 48.3 H 53.1 H ABG pO2 67 L 53 L 73 L Finesse Test Positive O2 Delivery Device BiPAP BiPAP BiPAP POC PEEP 6 8 6 POC Pressure Suppt 12 Clinical Comments 12 Attestation: I personally reviewed and interpreted this ABG as follows: Interpretation: 11 AM ABG was prior to intubation, on BiPAP at IPAP 15 EPAP 6 FiO2 100% rate 15, with progressive worsening and respiratory acidosis and adequate oxygenation Radiography Diagnostic Testing: Film and report reviewed. Persistent left lung atelectasis Rhythm Strip Rhythm Strip: Sinus Tach Rate: 109 Physical Exam Narrative Cachectic woman able to speak 3 word sentences in moderate respiratory distress. On BiPAP. HEENT normocephalic atraumatic, extraocular is intact, mucous membranes dry on BiPAP Mallampati 3 airway Lungs have diminished breath sounds on the left, rhonchi present, ineffective cough, moderate rhonchi on the right also. Heart normal tachycardic S1-S2 with no murmurs Abdomen is soft nontender Extremities have no clubbing cyanosis or edema Neuro is nonfocal, diffusely weak, unchanged. Alert and oriented x3. Skin is cool and dry. Charges/Coding Procedures Hospitalists Procedures: 42732 Critial Care 1st Hr
[2022-11-21 16:40] LABS: Absolute Lymphocyte Count 0.22 X10^3/uL (0.83-4.51); Absolute Neutrophil Count 9.4 X10^3/uL (2.0-7.7); Basophil# 0.03 X10^3/uL; Basophil% 0.3 % (0-1); Hematocrit 30.3 % (37-47); Lymphocyte # 0.22 X10^3/ul (0.83-4.51); Mean Corp Hgb Conc 29.7 g/dL (32-36); Mean Corpuscular Volume 77.3 fL (81-99); Monocyte% 11.8 % (0-10); NRBC Flagged by Analyzer 0 % (0-5); Neutrophil # 9.42 X10^3/uL (2.7-7.7); Neutrophil % 85.4 % (47-70); POSITIVE DIFFERENTIAL YES; POSITIVE MORPHOLOGY YES; Platelet Count 355 K/mm3 (150-450); RBC Distribution Width CV 28.3 % (11.6-14.6); RBC Distribution Width SD 77.4 fl (35.1-43.9); Red Blood Count 3.92 M/mm3 (4.2-5.4)
[2022-11-21 16:41] LABS: Differential Indicated SCAN CRITERIA MET
[2022-11-21 17:11] LABS: CPK Total, Creatine Kinase 37 U/L (26-192); Triglycerides 99 mg/dL
[2022-11-21 17:15] LABS: Base Excess -1 mmol/L (-2 to +2); Bicarbonate 23.5 mmol/L (22-26); Blood Gas Specimen Type ART; FI02 85; Mode AC; O2 Delivery Device Adult Vent; PEEP 7; PO2 66 mmHG (75-100); RR 25; SITE Art Line; SO2 94 % (95-99); Total Carbon Dioxide 25 mmol/L; Vt 325; pCO2 34.6 mmHg (35-45); pH 7.44 (7.35-7.45)
[2022-11-21 17:18] LABS: ALB/GLOB Ratio 0.4 RATIO (0.9-2.4); AST(SGOT) 25 U/L (15-37); Alanine Aminotransfer ALT/SGPT 25 U/L (13-56); Albumin, Serum 1.8 g/dL (3.2-5.0); Alkaline Phosphatase 119 U/L (45-117); Anion Gap 5 (5-15); BUN 26 mg/dL (7-18); BUN/Creat Ratio 39.4 RATIO (10-20); Calcium,Total 8.5 mg/dL (8.5-10.1); Chloride 108 mmol/L (98-107); Cholesterol 69 mg/dL (200); Creatinine, Serum 0.66 mg/dL (0.55-1.02); EST Glomerular Filtration Rate 95 mL/min (>60); Est Glom Filt Rate - Afr Amer 115 mL/min (>60); Estimated Creatinine Clearance 55.27 ml/min; Globulin 4.5 g/dL (2.2-4.2); Glucose 106 mg/dL (74-106); High Density Lipoprotein 15 mg/dL; Potassium 4.1 mmol/L (3.5-5.1); Protein, Total 6.3 g/dL (6.4-8.2); Sodium Level 140 mmol/L (136-145); Triglycerides 96 mg/dL; Troponin-I HS 305 pg/mL (3.0-54.0); Very Low Density Lipoprotein 19 mg/dL (5-40)
[2022-11-21 17:25] LABS: Differential Comment SCANNED
[2022-11-21 17:26] LABS: Anisocytosis 2+; Crenated RBC 1+; Hypochromasia 2+; Target Cells 1+
[2022-11-21 17:30] LABS: International Normalized Ratio 1.3; Prothrombin Time (Protime)PT. 15.6 SECONDS (11.7-14.9)
[2022-11-21] MEDS: Dext 5%-0.45% NS 1,000 ML 60 ML IV (18:59)
--- NOTE | 2022-11-21 20:32 | NURSING ---
Nursing communications entered by reviewed, no order entered to maintain pt position in trendelenburg at all times; trendelenburg position ordered for CPT duration to assist w/mobilization of secretions; as CPT is complete now, pt returned to semi-melendez's position w/HOB at 30degrees. Propofol titrated down as RASS was -3 and MAPs in low 60s.
[2022-11-21] MEDS: Chlorhexidine 15 ML PO (22:23)
[2022-11-21] MEDS: Metoprolol Tartrate 5 MG/5 ML Vial 2.5 MG IV (22:24)
[2022-11-21 23:00] LABS: Troponin-I HS 142 pg/mL (3.0-54.0)
[2022-11-22] VITALS (74 sets, daily range): BP systolic 71–111; BP diastolic 42–79; PULSE 89–205; RESP 18–27; TEMP 37.2–38.5; O2SAT 84–100; BMI 19.1
--- NOTE | 2022-11-22 | FLU_PTH ---
PATIENT: LOUISE ROSALES LOC: [facility] U#:[id number] AGE/SX: 67/F ROOM: [facility] RE11/20/[address]: Dr. Juana Cerda MD : 1955 BED: 1 DIS: 12/12/2022 SPEC #: [id number] RECD: 11/22/22 12:40 STATUS: ASTRID REJessica #: [id number] ANDRE: 11/22/22 00:[address]: Atul Mcfadden DEPT: CYTOLOGY RECD BY: Stan Schneider ENTERED: 11/23/22 09:17 SP TYPE: Fluid OTHR DR: MD Dr. Darrin Villegas DO Dr. Lee Ann Baggott, MD Dr. Mark Elderbrock, MD Dr. Tanmay Panchabhai, MD Christina Muller, ELECTRIC MELT OPERATOR-C Tissues: A - Lung, NOS B - Lung, NOS Procedures: PC (control) Special Stain Group II Special Stain Group I Surgery Specimen Level IV AFB Stain (control) GMS Stain (control) Cytospin Fluid HEADER OPERATION: Bronchoscopy with wash PRE-OP DIAGNOSIS: Respiratory failure, left lung atelectasis/pneumonia TISSUE SUBMITTED: A ? Right distal mainstem, B ? Left distal mainstem DIAGNOSIS CYTOLOGY A. Right distal mainstem washing fluid (cytospin and cell block): Negative for malignant cells. See comment. B. Left distal mainstem washing fluid (cytospin and cell block): Negative for malignant cells. See comment. SJ:shari 11/24/2022 COMMENT A & B. Special stains for acid fast bacilli, fungi and Pneumocystis carinii are negative for organisms; matched controls are appropriate. Correlation with clinical findings and appropriate follow up are necessary. CYTOLOGY STUDY Slides are reviewed. CYTOLOGY GROSS A - Received is 15 ml of clear fluid labeled with the patient's name and and designated per the requisition as right distal mainstem. Submitted for cytology preparation including cell block. B - Received is 20 ml of clear fluid labeled with the patient's name and and designated per the requisition as left distal mainstem. Submitted for cytology preparation including cell block. / shari 11/23/2022 TC:5 CPT: 04066 x2, 03691 x2, 65143 x6
[2022-11-22] MEDS: Acetaminophen 325 MG Tablet PO (00:48)
[2022-11-22] MEDS: Ipratropium/Albuterol Sulfate 3 ML AMPUL.NEB INHALATION ×4 (01:39→19:48)
[2022-11-22] MEDS: Propofol 10MG/Ml 1,000 MG/100 ML Bottle 1.2 MG CONT INF ×2 (02:53→15:27)
[2022-11-22 03:56] LABS: Absolute Lymphocyte Count 0.22 X10^3/uL (0.83-4.51); Absolute Neutrophil Count 11.2 X10^3/uL (2.0-7.7); Basophil# 0.03 X10^3/uL; Basophil% 0.2 % (0-1); Eosinophil# 0.01 X10^3/uL; Eosinophils% 0.1 % (0-5); Hematocrit 30.3 % (37-47); Hemoglobin 9.4 g/dL (12.0-15.0); Lymphocyte # 0.22 X10^3/ul (0.83-4.51); Lymphocyte % 1.7 % (19-41); Mean Corpuscular Hgb 22.9 pg (27.0-32.0); Mean Corpuscular Volume 73.7 fL (81-99); Mean Platelet Vol. 10.5 fl (6.2-12.0); Monocyte# 1.42 X10^3/uL; NRBC Flagged by Analyzer 0 % (0-5); Neutrophil # 11.21 X10^3/uL (2.7-7.7); Neutrophil % 86.6 % (47-70); POSITIVE DIFFERENTIAL YES; POSITIVE MORPHOLOGY YES; Platelet Count 387 K/mm3 (150-450); RBC Distribution Width CV 28.4 % (11.6-14.6); RBC Distribution Width SD 73.9 fl (35.1-43.9); Red Blood Count 4.11 M/mm3 (4.2-5.4); White Blood Count 12.9 K/mm3 (4.4-11.0)
[2022-11-22 03:59] LABS: International Normalized Ratio 1.3
[2022-11-22 04:06] LABS: Differential Indicated SCAN CRITERIA MET
[2022-11-22 04:15] LABS: ALB/GLOB Ratio 0.4 RATIO (0.9-2.4); AST(SGOT) 25 U/L (15-37); Alanine Aminotransfer ALT/SGPT 22 U/L (13-56); Albumin, Serum 1.7 g/dL (3.2-5.0); Alkaline Phosphatase 115 U/L (45-117); Anion Gap 6 (5-15); BUN 29 mg/dL (7-18); BUN/Creat Ratio 47.8 RATIO (10-20); Calcium,Total 8.2 mg/dL (8.5-10.1); Chloride 110 mmol/L (98-107); Creatinine, Serum 0.61 mg/dL (0.55-1.02); EST Glomerular Filtration Rate 105 mL/min (>60); Est Glom Filt Rate - Afr Amer 127 mL/min (>60); Globulin 4.2 g/dL (2.2-4.2); Glucose 130 mg/dL (74-106); Phosphorus 2.1 mg/dL (2.5-4.9); Potassium 3.8 mmol/L (3.5-5.1); Protein, Total 5.9 g/dL (6.4-8.2); Sodium Level 141 mmol/L (136-145); Thyroid Stim Hormone (TSH) 1.28 uIU/mL (0.358-3.74)
[2022-11-22 05:00] LABS: Base Excess -1 mmol/L (-2 to +2); Bicarbonate 23.7 mmol/L (22-26); Blood Gas Specimen Type ART; FI02 100; Mode AC; O2 Delivery Device Adult Vent; PEEP 7; PO2 140 mmHG (75-100); RR 18; SITE Art Line; SO2 99 % (95-99); Total Carbon Dioxide 25 mmol/L; Vt 325; pCO2 40.2 mmHg (35-45); pH 7.38 (7.35-7.45)
--- NOTE | 2022-11-22 05:00 | RAD_ITS ---
STUDY: X-RAY CHEST REASON FOR EXAM: Female, 67 years old. Follow-up. On mechanical ventilation. TECHNIQUE: Single frontal view of the chest. COMPARISON: November 21, 2022. FINDINGS: Stable support devices in anatomic position. Cardiomegaly, aortic tortuosity, marked diffuse interstitial pattern with bibasilar predominance, large left apical pulmonary mass and bilateral effusions, left greater than right. No acute or emergent finding. RAD/Chest 1 View (Portable) IMPRESSION: Stable chest with no acute or emergent finding. Electronically Signed: Antoine Sykes, at 10:54 EDT ,
[2022-11-22 05:01] LABS: Anisocytosis 1+; Differential Comment SCANNED
[2022-11-22] MEDS: CHLORHEXIDINE GLUC 2% CLOTH 1 EACH TOWELETTE TOPICAL (05:46)
[2022-11-22] MEDS: Levothyroxine 88 MCG Tablet 132 MCG PO (05:53)
[2022-11-22] MEDS: Chlorhexidine 15 ML PO ×2 (09:10→20:30)
[2022-11-22] MEDS: Lidocaine 2% (5ml sdv) 5 ML VIAL.MPF INFILT (10:55)
--- NOTE | 2022-11-22 11:50 | NURSING ---
Dr. Peterson at bedside performing bronch w/ OR staff
--- NOTE | 2022-11-22 11:57 | NURSING ---
HR 180s-200s, levo held per Dr. Peterson
[2022-11-22] MEDS: Aspirin 81 MG TAB.CHEW GT (12:12)
[2022-11-22] MEDS: Clopidogrel Bisulfate 75 MG Tablet GT (12:12)
[2022-11-22] MEDS: Acetaminophen 650 MG/20 ML UDC 325 MG GT (12:12)
[2022-11-22] MEDS: Lactulose 20 GM/30 ML UDC GT (12:12)
[2022-11-22 12:53] LABS: Cytology, Washings SEE PATHOLOGY REPORT
[2022-11-22 12:56] LABS: Cytology, Washings SEE PATHOLOGY REPORT
--- NOTE | 2022-11-22 12:57 | PCM.OP.PRO ---
Assessment & Plan Assessment/Plan (1) Acute and chronic respiratory failure with hypoxia: (2) Recurrent pleural effusion: (3) Complete atelectasis of left lung: (4) Bronchiectasis, non-tuberculous: (5) Cachexia: (6) History of coronary artery stent placement: PLAN: Plan 1. Acute on chronic respiratory failure: Multifactorial, due to recurrent pleural effusion, previous pleurodesis, severe cachexia with muscle wasting and weakness, ineffective cough, right middle lobe pneumonia, mucous plugging of the left lung. She required intubation and has been on mechanical ventilation 11/21/22. - Rapid improvement in aeration of the left lung with suctioning. - Bronchoscopy today (washings only, no biopsies or brushings) showed minimal thin mucoid secretions easily suctioned from both lungs, with severely swollen, edematous, narrowed (50% or greater proximally) bronchi bilaterally. There was no endobronchial lesion identified, but the procedure was stopped before complete airway inspection and biopsies could be obtained because of acute onset of rapid atrial fibrillation. - The patient's son stated she had a bronchoscopy November 17 at [facility], we will inquire regarding these results. - Titrate vent settings as needed, wean as tolerated. Patient may benefit from 1 or 2 extra days on the ventilator to get enough rest and begin to regain strength. She has been deteriorating steadily for quite some time. - Avoid barotrauma - Frequent suctioning and lavage of airway as needed - Sedate to RASS of 0 to -2 - Monitor daily CBC, electrolytes, liver function, ABG and chest x-ray while on ventilator - Reactivate plan to transfer to [facility] for higher level of care regarding VATS pleurodesis of the left pleural space after her pneumonia improves. ([facility] rejected her this morning since she had deteriorated and was on constant BiPAP, making her too unstable for transfer.) 2. Atelectasis of the left lung: This was due to mucous plugging, resolving with intubation 11/21 for airway control, suctioning, therapeutic bronchoscopy today. - Sputum C&S, with special plating as needed for nocardia, actinomyces, Acinetobacter, pneumocystis -AFB smear and culture for atypical mycobacteria daily x3 - Sputum and bronch wash for fungal culture - Sputum and bronch wash for cytology - if present, sample endobronchial lesion. 3. Pneumococcal sepsis with septic shock: Blood cultures returned positive in 2 out of 2 sets for pneumococcus. The patient was hypotensive this morning and febrile, she responded to fluid infusion sepsis protocol initially, required addition of low-dose norepinephrine. - Meropenem, and de-escalate to Rocephin if her respiratory cultures are negative. 4. cachexia - Tube feeds to start with high-protein supplements after bronch, caution regarding refeeding 5. Chronic bronchiectasis of right middle lobe 6. Recurrent bilateral pleural effusion, UNKNOWN ETIOLOGY - now only on the left due to previous right-sided VATS talc pleurodesis 2018 showing lymphocytic cells - Transfer to [facility] for thoracic surgery to consider talc pleurodesis on the left. Unfortunately patient may be a poor surgical candidate due to her progressive weight loss and arrhythmias. Other problems as previously noted Procedure Report Patient's son Mauri provided consent for the procedure. Prebronchoscopy labs were checked and found to be acceptable for the procedure. Patient was in sinus rhythm/sinus tachycardia prior to the procedure with adequate blood pressure on sedation and mechanical ventilation, intubated. Preprocedure timeout was done, she was given additional boluses of propofol and fentanyl, see nursing notes. After an adequate level of sedation was obtained, a large bronchoscope was introduced via the 7.5 endotracheal tube without difficulty. The trachea was normal throughout its length as visualized in a limited fashion through the endotracheal tube. The upper airway was not examined due to the presence of the ET tube. The kun was abnormal: It was swollen, the angle of the kun was not sharp. See photo in chart. There was no discrete endobronchial lesion seen, this did not seem to be due to extrinsic compression, was rather abnormal soft tissue throughout the airways bilaterally. Secretions were minimal thin, clear and mucoid bilaterally. They were easily suctioned clean, the purulent secretions that were seen when the patient was first intubated were resolved by the time of this procedure. There were no mucous plugs seen. No bleeding was encountered. Photos 1 and 2 were taken. The patient had a brief episode of rapid atrial fibrillation in the 190s, the procedure was paused with the scope out and the patient spontaneously converted to normal sinus tachycardia within a few minutes. See nursing notes. The scope was then changed to the small bronchoscope to better visualize right and left airway anatomy. After the patient had stable vital signs and oxygenation, the small scope was introduced into the endotracheal tube, and advanced to the distal right mainstem bronchus and left lower lobe. Photos 3 and 4 were taken. No endobronchial lesions were seen, but 50 to 70% diffuse narrowing of all proximal and distal airways were again noted, due to diffuse swelling of the airways circumferentially and bilaterally. The patient again developed rapid atrial fibrillation and the procedure was terminated before left lower lobe washes or biopsies could be obtained. Samples included washings of the right lung (sample 1) and left lung (sample 2). No biopsies or brushings were done. 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 The patient remained in the ICU, intubated and ventilated after the procedure. She had again spontaneously converted from rapid atrial fibrillation to normal sinus rhythm within a few minutes of scope withdrawal. Impression: 1. Mucous plugging and left lower lobe atelectasis relieved 2. Diffuse bilateral swelling of the airways from uncertain process was noted. No biopsies were possible due to atrial fibrillation. Plan: 1. Await results of the above samples 2. Request results from the bronchoscopy that the patient's son stated the patient had at [facility] on 11/17/2022. 3. Continue current treatments including antibiotics, ventilation, hemodynamic and nutritional support 4. Wean and extubate when patient is able to tolerate spontaneous ventilation, cough adequately, and maintaining her airway. 5. The patient's son Mauri was informed of the procedure, findings, and plans. Procedures Pulmonary CF Procedures 30xxx-[id number]: [id number] Dx bronchoscope/lavage
--- NOTE | 2022-11-22 13:24 | PCM.PN.INT ---
Assessment & Plan Assessment/Plan (1) Acute and chronic respiratory failure with hypoxia: (2) Recurrent pleural effusion: (3) Complete atelectasis of left lung: (4) Cachexia: (5) History of coronary artery stent placement: (6) Bronchiectasis, non-tuberculous: Objective Data Objective Data 2021: ECHO/Echo Complete Interpretation Summary Normal LV size. Left ventricular systolic function is normal. The estimated ejection fraction is 60 %. Trivial pericardial effusion. Vital Signs: Vital Signs Temp Pulse Resp BP Pulse Ox O2 Del Method O2 Flow Rate 100.9 F H 127 H 18 76/47 L 95 Mechanical Ventilator 15 11/22/22 12:00 11/22/22 12:30 11/22/22 12:30 11/22/22 12:30 11/22/22 12:30 11/22/22 12:30 11/20/22 16:00 FiO2 80 11/22/22 09:41 Oxygen Flow Rate (L/min) 15 Oxygen Delivery Method Mechanical Ventilator AC mode, tidal volume 350, rate 15, FiO2 80%, PEEP 7 Weight: 91 lb 0.815 oz Body Mass Index (BMI) 19.1 Intake & Output: Intake and Output for Last 24 Hours 11/20/22 11/21/22 11/22/22 23:59 23:59 23:59 Intake Total 1125.67 / 1365.67 1434.38 / 1440.58 1655.21 / 1655.21 Output Total 450 / 550 1250 / 1250 250 / 250 Balance 675.67 / 815.67 184.38 / 190.58 1405.21 / 1405.21 Medical Nutrition Assessment Dietitian: Malnutrition Criteria Met Start: 11/20/22 11:25 Freq: Status: Active Protocol: Document 11/22/22 11:26 RMA (Rec: 11/22/22 11:27 RMA [id number]) Nutrition Malnutrition Evidence of Malnutrition Exists Yes Malnutrition (severe): Chronic Evidenced By Suboptimal Energy Intake ( Severe),Weight Loss (Severe), Physical Changes (Moderate) Intake Problem Inadequate Oral Intake Etiology related to increased oxygen needs/intubated state Signs/Symptoms as evidenced by NPO Status Active Problem Clinical Problem Chronic Disease or Condition Related Malnutrition Etiology Severe protein-calorie malnutrition in the context of chronic disease related to inadequate oral/energy intake Signs/Symptoms as evidenced by currently NPO, 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 Peterson's order. Will order TF via OG tube to start with Vital AF 1.2 PATRICIO @ 20 ml/hr and increase rate as tolerated by 10 ml/hr Q 6-8 hours to goal rate of 40 ml/hr. Water flush with 120 ml Q 6 hours. TF at goal and water flushes will provide 1152 kcal, 72 gm pro and 1259 ml free water per day. Will monitor TF tolerance as established and adjust enteral nutrition support as indicated. Lab / Micro Data Result Diagrams: 11/22/22 03:30 11/22/22 03:30 Labs: Laboratory Results - last 24 hr 11/21/22 16:15: Total Creatine Kinase 37, Triglycerides 99 11/21/22 16:15: Sodium 140, Potassium 4.1, Chloride 108 H, Carbon Dioxide 27.0, Anion Gap 5, BUN 26 H, Creatinine 0.66, Estim Creat Clear Calc 55.27, Est GFR (MDRD) Af Amer 115, Est GFR (MDRD) Non-Af 95, BUN/Creatinine Ratio 39.4 H, Glucose 106, Calcium 8.5, Total Bilirubin 0.50, AST 25, ALT 25, Alkaline Phosphatase 119 H, Troponin I High Sens 305 H*, Total Protein 6.3 L, Albumin 1.8 L, Globulin 4.5 H, Albumin/Globulin Ratio 0.4 L, Triglycerides 96, Cholesterol 69, LDL Cholesterol 35, VLDL Cholesterol 19, HDL Cholesterol 15 L 11/21/22 16:15: WBC 11.0, RBC 3.92 L, Hgb 9.0 L, Hct 30.3 L, MCV 77.3 L, MCH 23.0 L, MCHC 29.7 L, RDW Std Deviation 77.4 H, RDW Coeff of Angie 28.3 H, Plt Count 355, MPV TNP, Immature Gran % (Auto) 0.500, Neut % (Auto) 85.4 H, Lymph % (Auto) 2.0 L, [place] % (Auto) 11.8 H, Eos % (Auto) 0.0, Baso % (Auto) 0.3, Absolute Neuts (auto) 9.4 H, Absolute Lymphs (auto) 0.22 L, Nucleated RBC % 0, Differential Comment SCANNED, Hypochromasia 2+, Anisocytosis 2+, Target Cells 1+, Crenated Cell 1+ 11/21/22 17:10: PT 15.6 H, INR 1.3 11/21/22 22:15: Troponin I High Sens 142 H* 11/22/22 03:30: WBC 12.9 H, RBC 4.11 L, Hgb 9.4 L, Hct 30.3 L, MCV 73.7 L, MCH 22.9 L, MCHC 31.0 L, RDW Std Deviation 73.9 H, RDW Coeff of Angie 28.4 H, Plt Count 387, MPV 10.5, Immature Gran % (Auto) 0.400, Neut % (Auto) 86.6 H, Lymph % (Auto) 1.7 L, [place] % (Auto) 11.0 H, Eos % (Auto) 0.1, Baso % (Auto) 0.2, Absolute Neuts (auto) 11.2 H, Absolute Lymphs (auto) 0.22 L, Nucleated RBC % 0, Differential Comment SCANNED, Anisocytosis 1+ 11/22/22 03:30: PT 16.0 H, INR 1.3 11/22/22 03:30: Sodium 141, Potassium 3.8, Chloride 110 H, Carbon Dioxide 25.0, Anion Gap 6, BUN 29 H, Creatinine 0.61, Estim Creat Clear Calc 59.80, Est GFR (MDRD) Af Amer 127, Est GFR (MDRD) Non-Af 105, BUN/Creatinine Ratio 47.8 H, Glucose 130 H, Calcium 8.2 L, Phosphorus 2.1 L, Magnesium 2.0, Total Bilirubin 0.40, AST 25, ALT 22, Alkaline Phosphatase 115, Total Protein 5.9 L, Albumin 1.7 L, Globulin 4.2, Albumin/Globulin Ratio 0.4 L, TSH 1.28 Micro: Microbiology 11/21/22 16:35 Sputum, Induced/Lukens Gram Stain - Final 11/21/22 16:35 Sputum, Induced/Lukens Respiratory Culture - Preliminary Appears to be normal respiratory dayana. Further studies to follow. 11/20/22 14:00 Blood Culture (Wb) - Anticubital Left Bacteria Detection (PCR) - Final Streptococcus pneumoniae 11/20/22 14:00 Blood Culture (Wb) - Anticubital Left Blood Culture - Preliminary Alpha hemolytic organism 11/20/22 13:55 Blood Culture (Wb) - Anticubital Right Blood Culture - Preliminary Alpha hemolytic organism 11/20/22 15:55 Sputum, Expectorated/Coughed Gram Stain - Final 11/20/22 15:55 Sputum, Expectorated/Coughed Respiratory Culture - Preliminary 11/20/22 13:50 Urine Catheter - Catheter Urine Culture - Final Culture exhibits no growth. 11/20/22 14:57 Mucosa - Nasopharyngeal Influenza Types A,B Direct FA (SAMANTHA) - Final 11/20/22 13:50 Urine Catheter - Catheter Legionella Antigen - Final 11/20/22 13:50 Urine Catheter - Catheter Streptococcus pneumoniae Antigen (M - Final ABG Data ABG results: ABG 11/21/22 11/22/22 17:12 05:55 Specimen Type ART ART Sample Site Art Line Art Line pH 7.44 7.38 Bicarbonate Actual 23.5 23.7 Total CO2 25 25 Base Excess -1 -1 O2 Saturation 94 L 99 O2 % 85 100 ABG pCO2 34.6 L 40.2 ABG pO2 66 L 140 H Respiration Rate 25 18 O2 Delivery Device Adult Vent Adult Vent Vent Mode AC AC Tidal Volume 325 325 POC PEEP 7 7 Attestation: I personally reviewed and interpreted this ABG as follows: Interpretation: Adequate ventilation and hyperoxygenation on mechanical ventilation at setting noted. Radiography Diagnostic Testing: Date of Exam: STUDY: ? X-RAY PORTABLE CHEST 11/22/22: [[id number]] REASON FOR EXAM: ? Female, 67 years old.? Follow-up. On mechanical ventilation. TECHNIQUE: ? Single frontal view of the chest. COMPARISON: ? November 21, 2022. FINDINGS: Stable support devices in anatomic position. Cardiomegaly, aortic tortuosity, marked diffuse interstitial pattern with bibasilar predominance, large left apical pulmonary mass and bilateral effusions, left greater than right. No acute or emergent finding. RAD/Chest 1 View (Portable) IMPRESSION: Stable chest with no acute or emergent finding. X ray chest portable 11/20/22 15:00 IMPRESSION: There is a moderate left pleural effusion with left infiltrates, improved since the previous study. Mild right pleural effusion with basilar consolidation/atelectasis. Electronically Signed: Goran Restrepo DO at 22:39 EDT , Chest X-Ray 11/21/22 06:03 IMPRESSION: Pulmonary findings appear worse. Electronically Signed: Gee Cloud MD at 16:37 EDT , Chest X-Ray 11/21/22 15:00 IMPRESSION: Pulmonary findings appear improved. Electronically Signed: Gee Cloud MD at 16:18 EDT , Chest X-Ray 11/22/22 05:00 IMPRESSION: Stable chest with no acute or emergent finding. Electronically Signed: Antoine Sykes, at 10:54 EDT , Rhythm Strip Rhythm Strip: Sinus Tach Rate: 109 Physical Exam Narrative Acutely and chronically ill cachectic woman who is sedated and comfortable on mechanical ventilation. She was able to communicate by writing during sedation lightening HEENT: Endotracheal tube is in good position 24 cm at the upper teeth, mucous membranes are dry Neck is supple with JVD present at 30 degrees custodial to the mandible Chest is mildly rhonchorous bilaterally with no wheezes rales or consolidation. Left base diminished Heart tachycardic S1-S2 regular rhythm (note patient went into atrial fibrillation with rapid rate twice and spontaneously converted today) Abdomen is soft nontender Extremities have no clubbing cyanosis or edema Neurologic exam is diffusely weak but nonfocal Skin is cool and dry. Charges/Coding Procedures Hospitalists Procedures: 67260 Critial Care 1st Hr
[2022-11-22 15:17] LABS: Appearance/Body Fluid CLEAR; Color/Body Fluid COLORLESS; Source- Body Fluid BRONCHIAL LAVAGE
[2022-11-22 15:18] LABS: Body Fluid QC Type(s) BF1Q; Red Cell Count/Body Fluid 25 /mm3; White Blood Count/Body Fluid 305 /mm3
[2022-11-22 15:20] LABS: Appearance/Body Fluid CLEAR; Body Fluid QC Type(s) BF1Q; Color/Body Fluid COLORLESS; Red Cell Count/Body Fluid 10 /mm3; Source- Body Fluid BRONCHIAL LAVAGE; White Blood Count/Body Fluid 175 /mm3
[2022-11-22] MEDS: Dext 5%-0.45% NS 1,000 ML 60 ML IV (15:26)
[2022-11-22] MEDS: 0.9% Saline Lock 10 ML Syringe IV (15:27)
[2022-11-22 15:49] LABS: Lymphocytes 8 %; Macrophages 1 %; Neutrophil (Segs) 7 %; Other Cell Type/BF 84 %
[2022-11-22 15:56] LABS: Lymphocytes 18 %; Macrophages 1 %; Mesothelial Cells 1 %; Monocytes 1 %; Neutrophil (Segs) 20 %; Other Cell Type/BF 59 %
[2022-11-22 16:14] LABS: Auto B Fluid Analyzer BKGD Ct COUNTS W/IN LIMITS (W/IN LIMITS)
[2022-11-22] MEDS: Vital AF 1.2 Cal Liquid 1,000 ML 20 ML GT (16:14)
--- NOTE | 2022-11-22 17:24 | PN.HOSP_ITS ---
Reason for Visit Reason for Visit: Diagnoses Chronic obstructive pulmonary disease, unspecified (11/20/22) Bronchiectasis, uncomplicated (11/20/22) Pleural effusion, not elsewhere classified (11/20/22) Acute and chronic respiratory failure with hypoxia (11/20/22) Atelectasis (11/20/22) Dyspnea, unspecified (11/20/22) Cachexia (11/20/22) Presence of coronary angioplasty implant and graft (11/20/22) Dependence on respirator [ventilator] status (11/20/22) Subjective Subjective Was seen and examined today, she remains sedated and on the ventilator, I talked with pulmonary medicine about her care. Patient underwent bronchoscopy today. Objective Data Objective Data Vital Signs: Vital Signs Temp Pulse Resp BP Pulse Ox O2 Del Method O2 Flow Rate 99.5 F H 110 H 19 H 88/54 L 97 Mechanical Ventilator 15 11/22/22 17:00 11/22/22 17:00 11/22/22 17:00 11/22/22 17:00 11/22/22 17:00 11/22/22 17:00 11/20/22 16:00 FiO2 100 11/22/22 16:00 Oxygen Flow Rate (L/min) 15 Oxygen Delivery Method Mechanical Ventilator Weight: 41.3 kg Body Mass Index (BMI) 19.1 Intake & Output: Intake and Output for Last 24 Hours 11/20/22 11/21/22 11/22/22 23:59 23:59 23:59 Intake Total 1125.67 / 1365.67 1434.38 / 1440.58 2587.79 / 2587.79 Output Total 450 / 550 1250 / 1250 310 / 310 Balance 675.67 / 815.67 184.38 / 190.58 2277.79 / 2277.79 Medical Nutrition Assessment Dietitian: Malnutrition Criteria Met Start: 11/20/22 11:25 Freq: Status: Active Protocol: Document 11/22/22 11:26 RMA (Rec: 11/22/22 11:27 RMA [id number]) Nutrition Malnutrition Evidence of Malnutrition Exists Yes Malnutrition (severe): Chronic Evidenced By Suboptimal Energy Intake ( Severe),Weight Loss (Severe), Physical Changes (Moderate) Intake Problem Inadequate Oral Intake Etiology related to increased oxygen needs/intubated state Signs/Symptoms as evidenced by NPO Status Active Problem Clinical Problem Chronic Disease or Condition Related Malnutrition Etiology Severe protein-calorie malnutrition in the context of chronic disease related to inadequate oral/energy intake Signs/Symptoms as evidenced by currently NPO, 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 Peterson's order. Will order TF via OG tube to start with Vital AF 1.2 PATRICIO @ 20 ml/hr and increase rate as tolerated by 10 ml/hr Q 6-8 hours to goal rate of 40 ml/hr. Water flush with 120 ml Q 6 hours. TF at goal and water flushes will provide 1152 kcal, 72 gm pro and 1259 ml free water per day. Will monitor TF tolerance as established and adjust enteral nutrition support as indicated. Lab / Micro Data Result Diagrams: 11/22/22 03:30 11/22/22 03:30 Labs: Laboratory Results - last 24 hr 11/21/22 16:15: Differential Comment SCANNED, Hypochromasia 2+, Anisocytosis 2+, Target Cells 1+, Crenated Cell 1+ 11/21/22 17:10: PT 15.6 H, INR 1.3 11/21/22 22:15: Troponin I High Sens 142 H* 11/22/22 03:30: WBC 12.9 H, RBC 4.11 L, Hgb 9.4 L, Hct 30.3 L, MCV 73.7 L, MCH 22.9 L, MCHC 31.0 L, RDW Std Deviation 73.9 H, RDW Coeff of Angie 28.4 H, Plt Count 387, MPV 10.5, Immature Gran % (Auto) 0.400, Neut % (Auto) 86.6 H, Lymph % (Auto) 1.7 L, [place] % (Auto) 11.0 H, Eos % (Auto) 0.1, Baso % (Auto) 0.2, Absolute Neuts (auto) 11.2 H, Absolute Lymphs (auto) 0.22 L, Nucleated RBC % 0, Differential Comment SCANNED, Anisocytosis 1+ 11/22/22 03:30: PT 16.0 H, INR 1.3 11/22/22 03:30: Sodium 141, Potassium 3.8, Chloride 110 H, Carbon Dioxide 25.0, Anion Gap 6, BUN 29 H, Creatinine 0.61, Estim Creat Clear Calc 59.80, Est GFR (MDRD) Af Amer 127, Est GFR (MDRD) Non-Af 105, BUN/Creatinine Ratio 47.8 H, Glucose 130 H, Calcium 8.2 L, Phosphorus 2.1 L, Magnesium 2.0, Total Bilirubin 0.40, AST 25, ALT 22, Alkaline Phosphatase 115, Total Protein 5.9 L, Albumin 1.7 L, Globulin 4.2, Albumin/Globulin Ratio 0.4 L, TSH 1.28 11/22/22 12:40: Fluid Source BRONCHIAL LAVAGE, Fluid Color COLORLESS, Fluid Appearance CLEAR, Fluid WBC 175, Fluid RBC 10, Fluid Tot Cell Count Not Reportable, Fluid Neutrophils 7, Fluid Lymphocytes 8, Fluid Macrophages 1, Fluid Other Cells 84, Fl Pathologist Comment May follow, Fluid Comment 2 Not Reportable 11/22/22 12:40: Fluid Source BRONCHIAL LAVAGE, Fluid Color COLORLESS, Fluid Appearance CLEAR, Fluid WBC 305, Fluid RBC 25, Fluid Tot Cell Count Not Rep ortable, Fluid Neutrophils 20, Fluid Lymphocytes 18, Fluid Monocytes 1, Fluid Macrophages 1, Fld Mesothelial Cells 1, Fluid Other Cells 59, Fl Pathologist Comment May follow, Fluid Comment 2 Not Reportable Micro: Microbiology 11/21/22 16:35 Sputum, Induced/Lukens Gram Stain - Final 11/21/22 16:35 Sputum, Induced/Lukens Respiratory Culture - Preliminary Appears to be normal respiratory dayana. Further studies to follow. 11/20/22 14:00 Blood Culture (Wb) - Anticubital Left Bacteria Detection (PCR) - Final Streptococcus pneumoniae 11/20/22 14:00 Blood Culture (Wb) - Anticubital Left Blood Culture - Preliminary Alpha hemolytic organism 11/20/22 13:55 Blood Culture (Wb) - Anticubital Right Blood Culture - Preliminary Alpha hemolytic organism 11/20/22 15:55 Sputum, Expectorated/Coughed Gram Stain - Final 11/20/22 15:55 Sputum, Expectorated/Coughed Respiratory Culture - Preliminary 11/20/22 13:50 Urine Catheter - Catheter Urine Culture - Final Culture exhibits no growth. 11/20/22 14:57 Mucosa - Nasopharyngeal Influenza Types A,B Direct FA (SAMANTHA) - Final 11/20/22 13:50 Urine Catheter - Catheter Legionella Antigen - Final 11/20/22 13:50 Urine Catheter - Catheter Streptococcus pneumoniae Antigen (M - Final ABG Data ABG results: ABG 11/22/22 05:55 Specimen Type ART Sample Site Art Line pH 7.38 Bicarbonate Actual 23.7 Total CO2 25 Base Excess -1 O2 Saturation 99 O2 % 100 ABG pCO2 40.2 ABG pO2 140 H Respiration Rate 18 O2 Delivery Device Adult Vent Vent Mode AC Tidal Volume 325 POC PEEP 7 Radiography Diagnostic Testing: Radiology Impression Chest X-Ray 11/20/22 15:00 IMPRESSION: There is a moderate left pleural effusion with left infiltrates, improved since the previous study. Mild right pleural effusion with basilar consolidation/atelectasis. Electronically Signed: Goran Restrepo, DO at 22:39 EDT , Chest X-Ray 11/22/22 05:00 IMPRESSION: Stable chest with no acute or emergent finding. Electronically Signed: Antoine Sykes, at 10:54 EDT , Rhythm Strip Rhythm Strip: Sinus Tach Rate: 109 Physical Exam Const average body habitus Constitutional Narrative: Patient is sedated and on the ventilator HEENT head/scalp atraumatic Eyes conjunctivae normal Neck no JVD Resp normal respiratory effort, no retractions, no use of accessory muscles and clear to auscultation bilaterally Cardio regular rate, regular rhythm, S1 normal heart sound, S2 normal heart sound and no murmurs GI normal to inspection, nondistended, normoactive bowel sounds and non-distended Extremity no clubbing, cyanosis or edema Neuro Neuro Narrative: Patient is sedated and on the ventilator Psych Psych Narrative: Patient is sedated and on the ventilator Assessment & Plan Assessment/Plan (1) Acute and chronic respiratory failure with hypoxia: (2) Acute dyspnea: PLAN: Plan 1. Acute on chronic hypoxic respiratory failure-secondary to atelectasis of the left lung, left pleural effusion, and possible community-acquired pneumonia- patient was intubated yesterday and remains on the ventilator at this time, pulmonary medicine is participating in her care #2 recurrent left pleural effusion-etiology unclear, at this time, patient's transfer to [facility] has been canceled #3 chronic hypoxic respiratory failure-patient is on 2 L of oxygen at home #4 hyperlipidemia-patient is on Lipitor #5 chronic severe protein and caloric malnutrition-patient will be seen by [facility] #6 chronic obstructive pulmonary disease-patient will continue on aerosol treatments #7 coronary artery disease-patient will remain on Plavix and aspirin #8 hypothyroidism-patient will remain on Synthroid #9 essential hypertension-patient will remain on her home medications #10 chronic diastolic congestive heart failure-patient remains on Bumex Total clinical time spent by myself addressing the patient's medical issues, reviewing all of her data, and collaborating with patient's care team: 35 minutes Charges/Coding Visit Charges Inpatient E&M: 91167 Subs Hosp L2
--- NOTE | 2022-11-22 20:07 | EKG12_ITS ---
Test Reason : TACHYCARDIA Blood Pressure : / mmHG Vent. Rate : 191 BPM Atrial Rate : 267 BPM P-R Int : 000 ms QRS Dur : 064 ms QT Int : 254 ms P-R-T Axes : 000 025 -61 degrees QTc Int : 452 ms Atrial fibrillation with right ventricular involvement Low voltage QRS Abnormal ECG Confirmed by JESSICA WELCH, SYDNEY ([id number]), fashion editor LIV HOPKINS ([id number]) on 11/25/2022 10:25:13 AM Referred By: SURAJ Confirmed By:YIMI LOPEZ MD
--- NOTE | 2022-11-22 20:08 | EKG12_ITS ---
Test Reason : TACHYCARDIA Blood Pressure : / mmHG Vent. Rate : 189 BPM Atrial Rate : 241 BPM P-R Int : 000 ms QRS Dur : 068 ms QT Int : 264 ms P-R-T Axes : 000 035 -39 degrees QTc Int : 468 ms Atrial fibrillation with premature ventricular or aberrantly conducted complexes Low voltage QRS Nonspecific T wave abnormality Abnormal ECG When compared with ECG of 22-NOV-2022 20:07, MANUAL COMPARISON REQUIRED, DATA IS UNCONFIRMED Confirmed by JESSICA WELCH, SYDNEY ([id number]), health editor LIV HOPKINS ([id number]) on 11/25/2022 10:24:41 AM Referred By: SURAJ Confirmed By:YIMI LOPEZ MD
[2022-11-22] MEDS: Heparin Injection (Vial) 5,000 UNIT/ML VIAL 5000 UNIT SC (20:30)
--- NOTE | 2022-11-22 22:02 | MDS.RN ---
Following respiratory therapy doing vest therapy, pt's HR was in the 180-210s. EKG obtained which showed afib RVR. After multiple unsuccessful attempts to deep suction pt, this RN called Dr. Peterson who gave orders for a cardizem gtt.
[2022-11-23] VITALS (51 sets, daily range): BP systolic 83–105; BP diastolic 52–70; PULSE 92–147; RESP 16–27; TEMP 37.1–37.9; O2SAT 84–98
[2022-11-23] MEDS: Ipratropium/Albuterol Sulfate 3 ML AMPUL.NEB INHALATION ×4 (01:49→20:01)
--- NOTE | 2022-11-23 02:20 | RAD_ITS ---
EXAM: XR CHEST, 1 VIEW CLINICAL INDICATION: hypoxia -- portable hypoxia -- portable TECHNIQUE: Frontal view of the chest. This report was created using [employer] report generation technology. COMPARISON: Chest x-rays 11/22/2022, 11/20/2022, and 11/09/2022. FINDINGS: LUNGS AND PLEURAL SPACES: There is a large left pleural effusion with loculation in the left upper lung field, not significantly different from last previous study. There is a small right pleural effusion, not significantly changed. There is overlying atelectasis and/or infiltration in the left lung, which appears worsened from last previous study. There is atelectasis or infiltration right lower lung field which appears slightly improved from last previous study. No pneumothorax. HEART: Unremarkable. Cardiac silhouette not enlarged. MEDIASTINUM: Central airways and mediastinal contour are unremarkable. BONES/JOINTS: Unremarkable. SOFT TISSUES: Unremarkable. TUBES, LINES AND DEVICES: The endotracheal tube (ETT) is in satisfactory position with tip 1.7 cm above the kun. There is a nasogastric tube in adequate position. There is a left-sided PICC line catheter with its tip overlying the distal superior vena cava. RAD/Chest 1 View (Portable) IMPRESSION: 1. Tubes are in adequate position. 2. Bilateral pleural effusions are not significantly changed from last previous study. 3. Slightly worsened infiltration or atelectasis in the left lung. Slightly improved infiltration or atelectasis in the right lower lung field. Electronically Signed: Kevyn Bowers MD at 3:38 EDT Reading Location ID and State: [facility] / [place] , Service support ,
[2022-11-23 03:48] LABS: Absolute Lymphocyte Count 0.16 X10^3/uL (0.83-4.51); Absolute Neutrophil Count 19.2 X10^3/uL (2.0-7.7); Basophil# 0.04 X10^3/uL; Basophil% 0.2 % (0-1); Eosinophil# 0.04 X10^3/uL; Eosinophils% 0.2 % (0-5); Hematocrit 31.5 % (37-47); Hemoglobin 9.5 g/dL (12.0-15.0); Lymphocyte # 0.16 X10^3/ul (0.83-4.51); Lymphocyte % 0.8 % (19-41); Mean Corp Hgb Conc 30.2 g/dL (32-36); Mean Corpuscular Hgb 22.6 pg (27.0-32.0); Mean Corpuscular Volume 74.8 fL (81-99); Mean Platelet Vol. 10.2 fl (6.2-12.0); Monocyte% 3.9 % (0-10); NRBC Flagged by Analyzer 0.1 % (0-5); Neutrophil # 19.22 X10^3/uL (2.7-7.7); Neutrophil % 94.1 % (47-70); POSITIVE DIFFERENTIAL YES; POSITIVE MORPHOLOGY YES; Platelet Count 438 K/mm3 (150-450); RBC Distribution Width CV 28.5 % (11.6-14.6); RBC Distribution Width SD 74.3 fl (35.1-43.9); Red Blood Count 4.21 M/mm3 (4.2-5.4); White Blood Count 20.4 K/mm3 (4.4-11.0)
[2022-11-23] MEDS: CHLORHEXIDINE GLUC 2% CLOTH 1 EACH TOWELETTE TOPICAL (03:59)
[2022-11-23] MEDS: Propofol 10MG/Ml 1,000 MG/100 ML Bottle 2.5 MG CONT INF (03:59)
[2022-11-23 04:06] LABS: Differential Indicated SCAN CRITERIA MET
[2022-11-23 04:10] LABS: Anisocytosis 2+; Microcytosis 1+
[2022-11-23 04:17] LABS: International Normalized Ratio 1.3
[2022-11-23 04:21] LABS: ALB/GLOB Ratio 0.3 RATIO (0.9-2.4); AST(SGOT) 84 U/L (15-37); Alanine Aminotransfer ALT/SGPT 66 U/L (13-56); Albumin, Serum 1.5 g/dL (3.2-5.0); Alkaline Phosphatase 485 U/L (45-117); Anion Gap 5 (5-15); BUN 30 mg/dL (7-18); BUN/Creat Ratio 48.3 RATIO (10-20); Calcium,Total 8.3 mg/dL (8.5-10.1); Chloride 112 mmol/L (98-107); Creatinine, Serum 0.62 mg/dL (0.55-1.02); EST Glomerular Filtration Rate 102 mL/min (>60); Est Glom Filt Rate - Afr Amer 124 mL/min (>60); Estimated Creatinine Clearance 58.98 ml/min; Globulin 4.7 g/dL (2.2-4.2); Glucose 216 mg/dL (74-106); Magnesium 2.1 mg/dL (1.6-2.6); Phosphorus 2.2 mg/dL (2.5-4.9); Protein, Total 6.2 g/dL (6.4-8.2); Sodium Level 140 mmol/L (136-145)
[2022-11-23] MEDS: Levothyroxine 88 MCG Tablet GT (05:23)
[2022-11-23] MEDS: TITRATION PARAMETER CHANGE 1 EACH IV (06:12)
[2022-11-23] MEDS: Dext 5%-0.45% NS 1,000 ML 60 ML IV (07:26)
--- NOTE | 2022-11-23 08:04 | PCM.PN.INT ---
Assessment & Plan Assessment/Plan (1) Acute and chronic respiratory failure with hypoxia: PLAN: Plan RECOMMENDATIONS: 1. Continue assist-control mode of mechanical ventilation. Wean FiO2 and PEEP for saturations greater than 90%. 2. Discontinue Cardizem. 3. Continue to hold diuretics. 4. Wean Levophed to maintain a mean arterial pressure at or above 65 mmHg. 5. Continue bronchodilators and steroids. 6. If pleural effusion were to enlarge, could consider repeat thoracentesis. 7. Initiate bowel regimen and resume tube feeds as tolerated. 8. Continue appropriate DVT prophylaxis. IMPRESSIONS: 1. Acute on chronic hypoxemic respiratory failure The patient has a known history of underlying bronchiectasis and recurrent pleural effusion, which according to documentation, was previously felt to be cardiac in etiology. The patient did undergo a VATS and pleurodesis on the right and in 2019 had a Pleurx catheter on the left side. There has been discussion in the past about the patient proceeding with thoracic surgery evaluation for left-sided pleural intervention. However, the patient has declined to pursue the work-up. The patient does appear on chest imaging to have bilateral pleural effusions, left greater than right, which appears loculated in appearance. The patient will be continued on assist control mode mechanical ventilation, with plans to wean FiO2 and PEEP to maintain oxygen saturations at or above 90%. Plan to continue empiric broad-spectrum antimicrobials. Ultimately, I do not feel that the patient requires any emergent intervention regarding her pleural space, as this is a chronic finding. If needed, the patient could be considered for an ultrasound-guided thoracentesis on the left if it meant assisting in weaning from invasive mechanical ventilatory support. The patient will require aggressive bronchopulmonary hygiene following extubation given her cachexia and generalized deconditioning. I do suspect that her acute decompensation during this hospitalization was likely secondary to mucous plugging coupled with atrial fibrillation with RVR. Ultimately, the patient would benefit from diuresis once hemodynamic status improves. 2. Septic shock secondary to pneumococcal bacteremia/pneumonia Continue antimicrobials as ordered. Continue to wean Levophed as tolerated to maintain a mean arterial pressure at or above 65 mmHg. 3. Paroxysmal atrial fibrillation The patient has transition back to normal sinus rhythm. Therefore, we will attempt to discontinue Cardizem at this time. 4. COPD with chronic bronchitis Continue bronchodilator therapy and steroids as ordered. 5. Pulmonary cachexia/hypothyroidism/GERD Complicates care, management, recovery and prognosis. Continue supportive measures as noted above including tube feeds as tolerated. TIME: 40 minutes of critical care time, independent of procedures, was spent addressing the patient's acute on chronic hypoxemic respiratory failure, septic shock, paroxysmal atrial fibrillation, COPD, review of all data and collaboration with the care team. Subjective Subjective The patient was seen and examined at the bedside this morning. Events from the last 24 hours have been reviewed. The patient currently has a low-grade fever and remains on Levophed at 10 mcg/min to maintain hemodynamic stability. The patient is being maintained on assist control mode mechanical ventilation with an FiO2 requirement of 100% and PEEP of 10. Today is vent day #3 for the patient. She is currently documented to be overall net +5.6 L for the hospitalization. White count is elevated at 20,000. The patient last underwent an ultrasound-guided thoracentesis on November 17 with 560 mL of fluid drained from the left hemithorax. However, pleural fluid studies were never sent. The patient does have a history of a recurrent bilateral pleural effusions, left greater than right with suspected cardiac etiology. The patient also has known severe COPD with elements of chronic bronchitis and emphysema. The patient has demonstrated exudative pleural fluid indices in the past, without any recent pleural fluid analyses being completed. The patient is status post VATS and pleurodesis on the right. In 2019, she also had a left Pleurx catheter in place. There has been discussion in the past about the patient proceeding with thoracic surgery evaluation for left-sided pleural intervention, which the patient has declined to pursue. Objective Data Objective Data The patient's most recent lab work, culture data and imaging studies have all been personally reviewed. Surface echocardiogram from January 2021 demonstrated normal LV size and function with an ejection fraction of 60% and stage I diastolic dysfunction. Vital Signs: Vital Signs Temp Pulse Resp BP Pulse Ox O2 Del Method O2 Flow Rate 99.7 F H 97 21 H 85/56 L 93 Mechanical Ventilator 15 11/23/22 06:00 11/23/22 07:03 11/23/22 07:03 11/23/22 07:00 11/23/22 07:03 11/23/22 07:00 11/20/22 16:00 FiO2 90 11/23/22 07:03 Oxygen Flow Rate (L/min) 15 Oxygen Delivery Method Mechanical Ventilator Weight: 95 lb 7.362 oz Body Mass Index (BMI) 20.0 Intake & Output: Intake and Output for Last 24 Hours 11/21/22 11/22/22 11/23/22 23:59 23:59 23:59 Intake Total 1434.38 / 1440.58 3240.68 / 3264.08 2118.78 / 78 Output Total 1250 / 1250 460 / 460 125 / 125 Balance 184.38 / 190.58 2780.68 / 2804.08 / Medical Nutrition Assessment Dietitian: Malnutrition Criteria Met Start: 11/20/22 11:25 Freq: Status: Active Protocol: Document 11/22/22 11:26 RMA (Rec: 11/22/22 11:27 RMA [id number]) Nutrition Malnutrition Evidence of Malnutrition Exists Yes Malnutrition (severe): Chronic Evidenced By Suboptimal Energy Intake ( Severe),Weight Loss (Severe), Physical Changes (Moderate) Intake Problem Inadequate Oral Intake Etiology related to increased oxygen needs/intubated state Signs/Symptoms as evidenced by NPO Status Active Problem Clinical Problem Chronic Disease or Condition Related Malnutrition Etiology Severe protein-calorie malnutrition in the context of chronic disease related to inadequate oral/energy intake Signs/Symptoms as evidenced by currently NPO, 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 Peterson's order. Will order TF via OG tube to start with Vital AF 1.2 PATRICIO @ 20 ml/hr and increase rate as tolerated by 10 ml/hr Q 6-8 hours to goal rate of 40 ml/hr. Water flush with 120 ml Q 6 hours. TF at goal and water flushes will provide 1152 kcal, 72 gm pro and 1259 ml free water per day. Will monitor TF tolerance as established and adjust enteral nutrition support as indicated. Lab / Micro Data Attestation: I reviewed the patient's lab results. Result Diagrams: 11/24/22 03:50 11/24/22 03:50 Labs: Laboratory Results - last 24 hr 11/22/22 12:40: Fluid Source BRONCHIAL LAVAGE, Fluid Color COLORLESS, Fluid Appearance CLEAR, Fluid WBC 175, Fluid RBC 10, Fluid Tot Cell Count Not Reportable, Fluid Neutrophils 7, Fluid Lymphocytes 8, Fluid Macrophages 1, Fluid Other Cells 84, Fl Pathologist Comment May follow, Fluid Comment 2 Not Reportable 11/22/22 12:40: Fluid Source BRONCHIAL LAVAGE, Fluid Color COLORLESS, Fluid Appearance CLEAR, Fluid WBC 305, Fluid RBC 25, Fluid Tot Cell Count Not Reportable, Fluid Neutrophils 20, Fluid Lymphocytes 18, Fluid Monocytes 1, Fluid Macrophages 1, Fld Mesothelial Cells 1, Fluid Other Cells 59, Fl Pathologist Comment May follow, Fluid Comment 2 Not Reportable 11/23/22 03:36: WBC 20.4 H, RBC 4.21, Hgb 9.5 L, Hct 31.5 L, MCV 74.8 L, MCH 22.6 L, MCHC 30.2 L, RDW Std Deviation 74.3 H, RDW Coeff of Angie 28.5 H, Plt Count 438, MPV 10.2, Immature Gran % (Auto) 0.800, Neut % (Auto) 94.1 H, Lymph % (Auto) 0.8 L, [place] % (Auto) 3.9, Eos % (Auto) 0.2, Baso % (Auto) 0.2, Absolute Neuts (auto) 19.2 H, Absolute Lymphs (auto) 0.16 L, Nucleated RBC % 0.1, Anisocytosis 2+, Microcytosis 1+ 11/23/22 03:36: PT 16.0 H, INR 1.3 11/23/22 03:36: Sodium 140, Potassium 4.0, Chloride 112 H, Carbon Dioxide 23.0, Anion Gap 5, BUN 30 H, Creatinine 0.62, Estim Creat Clear Calc 58.98, Est GFR (MDRD) Af Amer 124, Est GFR (MDRD) Non-Af 102, BUN/Creatinine Ratio 48.3 H, Glucose 216 H, Calcium 8.3 L, Phosphorus 2.2 L, Magnesium 2.1, Total Bilirubin 0.40, AST 84 H, ALT 66 H, Alkaline Phosphatase 485 H, Total Protein 6.2 L, Albumin 1.5 L, Globulin 4.7 H, Albumin/Globulin Ratio 0.3 L Micro: Microbiology 11/21/22 16:35 Sputum, Induced/Lukens Gram Stain - Final 11/21/22 16:35 Sputum, Induced/Lukens Respiratory Culture - Preliminary Appears to be normal respiratory dayana. Further studies to follow. 11/20/22 14:00 Blood Culture (Wb) - Anticubital Left Bacteria Detection (PCR) - Final Streptococcus pneumoniae 11/20/22 14:00 Blood Culture (Wb) - Anticubital Left Blood Culture - Preliminary Alpha hemolytic organism 11/20/22 13:55 Blood Culture (Wb) - Anticubital Right Blood Culture - Preliminary Alpha hemolytic organism 11/20/22 15:55 Sputum, Expectorated/Coughed Gram Stain - Final 11/20/22 15:55 Sputum, Expectorated/Coughed Respiratory Culture - Preliminary 11/20/22 13:50 Urine Catheter - Catheter Urine Culture - Final Culture exhibits no growth. 11/20/22 14:57 Mucosa - Nasopharyngeal Influenza Types A,B Direct FA (SAMANTHA) - Final 11/20/22 13:50 Urine Catheter - Catheter Legionella Antigen - Final 11/20/22 13:50 Urine Catheter - Catheter Streptococcus pneumoniae Antigen (M - Final Radiography Diagnostic Testing: Radiology Impression Chest X-Ray 11/22/22 05:00 IMPRESSION: Stable chest with no acute or emergent finding. Electronically Signed: Antoine Sykes, at 10:54 EDT , Chest X-Ray 11/23/22 02:20 IMPRESSION: 1. Tubes are in adequate position. 2. Bilateral pleural effusions are not significantly changed from last previous study. 3. Slightly worsened infiltration or atelectasis in the left lung. Slightly improved infiltration or atelectasis in the right lower lung field. Electronically Signed: Kevyn Bowers MD at 3:38 EDT , Rhythm Strip Rhythm Strip: Sinus Tach Rate: 109 Physical Exam Const Constitutional Narrative: Intubated, sedated and mechanically ventilated. No ventilator dyssynchrony. HEENT normocephalic and head/scalp atraumatic Mouth: endotracheal tube in place and OG tube in place Eyes PERRL Neck supple General: trachea midline Chest inspection of chest normal Resp normal respiratory effort Auscultation: rhonchi and diminished lung sounds Cardio S1 normal heart sound and S2 normal heart sound Rate: tachycardic GI normal to inspection, nondistended, normoactive bowel sounds Extremity no clubbing, cyanosis or edema Skin no rashes or lesions noted Neuro Sensorium / Orientation: sedated on vent Charges/Coding Procedures Hospitalists Procedures: 52476 Critial Care 1st Hr
--- NOTE | 2022-11-23 08:14 | ECHOD_ITS ---
Reason For Study: CONGENTIAL HEART DISEASE Procedure This was a limited 2D transthoracic echocardiogram. Exam performed portable in ICU/CCU. Left Ventricle Normal LV size. The estimated ejection fraction is 70 %. Unable to assess diastolic dysfunction. No regional wall motion abnormalities noted. Right Ventricle Severely dilated right ventricle. Moderate global right ventricular systolic dysfunction. Atria Normal left atrium. Normal right atrium. No doppler evidence for ASD. Mitral Valve There is moderate mitral annular calcification. There is no mitral valve stenosis. No mitral valve insufficiency. Tricuspid Valve There is no tricuspid stenosis. Trivial tricuspid valve insufficiency. Pulmonary artery systolic pressure is 55-60 mmHg. Aortic Valve Trisinus/trileaflet aortic valve. Aortic sclerosis, no stenosis. There is no aortic stenosis. No aortic valve insufficiency. Pulmonic Valve There is no pulmonic valvular stenosis. No pulmonic valve insufficiency. Great Vessels Normal aortic root. Pericardium/Pleural Trivial pericardial effusion. MMode/2D Measurements & Calculations LVIDd: 2.4 cm IVSd: 0.61 cm Ao root diam: 3.0 cm LVIDs: 1.7 cm LVPWd: 0.85 cm FS: 28.3 % LAV(MOD-sp4): 21.5 ml LVAd ap4: 17.4 cm2 SV(MOD-sp4): 23.3 ml LVLd ap4: 7.3 cm EDV(MOD-sp4): 34.2 ml EDV(sp4-el): 35.3 ml LVAs ap4: 8.4 cm2 LVLs ap4: 5.9 cm ESV(MOD-sp4): 10.9 ml ESV(sp4-el): 10.2 ml EF(MOD-sp4): 68.1 % EF(sp4-el): 71.1 % SV(sp4-el): 25.1 ml LA A4 area: 10.2 cm2 LA dimension(2D): 3.1 cm RA A4 area: 13.6 cm2 Doppler Measurements & Calculations TR max rin: 320.4 cm/sec TR max P.1 mmHg ECHO/Echo, Limited Study Interpretation Summary The estimated ejection fraction is 70 %. Severely dilated right ventricle. Moderate global right ventricular systolic dysfunction. Trivial pericardial effusion. Aortic sclerosis, no stenosis. Unable to assess diastolic dysfunction. Ordering Physician: Darrin Meredith Referring Physician: BO Performed By: Rachna Portillo RCS
[2022-11-23] MEDS: Chlorhexidine 15 ML PO ×2 (08:39→21:06)
[2022-11-23 08:49] LABS: BNP,B-Type NATRIURETIC PEPTIDE 1084.4 pg/mL (0-100)
[2022-11-23] MEDS: Polyethylene Glycol 3350 17 GM PACKET GT ×2 (10:02→20:55)
[2022-11-23] MEDS: Senna/Docusate Sodium 1 Tablet 2 TABLET GT ×2 (10:02→20:55)
[2022-11-23] MEDS: Heparin Injection (Vial) 5,000 UNIT/ML VIAL 5000 UNIT SC (10:02)
[2022-11-23] MEDS: Clopidogrel Bisulfate 75 MG Tablet GT (10:02)
[2022-11-23] MEDS: Aspirin 81 MG TAB.CHEW GT (10:03)
--- NOTE | 2022-11-23 12:15 | PN.HOSP_ITS ---
Reason for Visit Reason for Visit: Diagnoses Chronic obstructive pulmonary disease, unspecified (11/20/22) Bronchiectasis, uncomplicated (11/20/22) Pleural effusion, not elsewhere classified (11/20/22) Acute and chronic respiratory failure with hypoxia (11/20/22) Atelectasis (11/20/22) Dyspnea, unspecified (11/20/22) Cachexia (11/20/22) Presence of coronary angioplasty implant and graft (11/20/22) Dependence on respirator [ventilator] status (11/20/22) Subjective Subjective Patient was seen and examined today, she is sedated and on the ventilator, she is on an FiO2 of 0.9. 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 Meredith here. I do not think it is beneficial to try to get the patient transferred to a tertiary hospital at this time, she is on the vent on high flow oxygen, I do not think they would address the patient's left pleural effusion which appears to be chronic. Objective Data Objective Data Vital Signs: Vital Signs Temp Pulse Resp BP Pulse Ox O2 Del Method O2 Flow Rate 99.9 F H 94 18 91/53 L 95 Mechanical Ventilator 15 11/23/22 12:00 11/23/22 12:00 11/23/22 12:00 11/23/22 12:00 11/23/22 12:00 11/23/22 12:00 11/20/22 16:00 FiO2 90 11/23/22 12:00 Oxygen Flow Rate (L/min) 15 Oxygen Delivery Method Mechanical Ventilator Weight: 43.3 kg Body Mass Index (BMI) 20.0 Intake & Output: Intake and Output for Last 24 Hours 11/21/22 11/22/22 11/23/22 23:59 23:59 23:59 Intake Total 1434.38 / 1440.58 3240.68 / 3264.08 2743.78 / 2743.78 Output Total 1250 / 1250 460 / 460 350 / 350 Balance 184.38 / 190.58 2780.68 / 2804.08 2393.78 / 2393.78 Medical Nutrition Assessment Dietitian: Malnutrition Criteria Met Start: 11/20/22 11:25 Freq: Status: Active Protocol: Document 11/23/22 11:35 RMA (Rec: 11/23/22 11:35 RMA [id number]) Nutrition Malnutrition Evidence of Malnutrition Exists Yes Malnutrition (severe): Chronic Evidenced By Suboptimal Energy Intake ( Severe),Weight Loss (Severe), Physical Changes (Moderate) Intake Problem Inadequate Oral Intake Etiology related to increased oxygen needs/intubated state Signs/Symptoms as evidenced by NPO Status Resolved Problem Clinical Problem Chronic Disease or Condition Related Malnutrition Etiology Severe protein-calorie malnutrition in the context of chronic disease related to inadequate oral/energy intake Signs/Symptoms as evidenced by currently NPO, 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 TF via OG tube of Vital AF 1.2 PATRICIO @ 20 ml/hr and increase rate as tolerated by 10 ml/hr Q 6-8 hours to goal rate of 40 ml/hr . Water flush with 120 ml Q 6 hours. TF at goal and water flushes will provide 1152 kcal , 72 gm pro and 1259 ml free water per day. Will monitor TF tolerance as established and adjust enteral nutrition support as indicated. Lab / Micro Data Result Diagrams: 11/23/22 03:36 11/23/22 03:36 Labs: Laboratory Results - last 24 hr 11/22/22 12:40: Fluid Source BRONCHIAL LAVAGE, Fluid Color COLORLESS, Fluid Appearance CLEAR, Fluid WBC 175, Fluid RBC 10, Fluid Tot Cell Count Not Reportable, Fluid Neutrophils 7, Fluid Lymphocytes 8, Fluid Macrophages 1, Fluid Other Cells 84, Fl Pathologist Comment May follow, Fluid Comment 2 Not Reportable 11/22/22 12:40: Fluid Source BRONCHIAL LAVAGE, Fluid Color COLORLESS, Fluid Appearance CLEAR, Fluid WBC 305, Fluid RBC 25, Fluid Tot Cell Count Not Reportable, Fluid Neutrophils 20, Fluid Lymphocytes 18, Fluid Monocytes 1, Fluid Macrophages 1, Fld Mesothelial Cells 1, Fluid Other Cells 59, Fl Pathologist Comment May follow, Fluid Comment 2 Not Reportable 11/23/22 03:36: WBC 20.4 H, RBC 4.21, Hgb 9.5 L, Hct 31.5 L, MCV 74.8 L, MCH 22.6 L, MCHC 30.2 L, RDW Std Deviation 74.3 H, RDW Coeff of Angie 28.5 H, Plt Count 438, MPV 10.2, Immature Gran % (Auto) 0.800, Neut % (Auto) 94.1 H, Lymph % (Auto) 0.8 L, [place] % (Auto) 3.9, Eos % (Auto) 0.2, Baso % (Auto) 0.2, Absolute Neuts (auto) 19.2 H, Absolute Lymphs (auto) 0.16 L, Nucleated RBC % 0.1, Anisocytosis 2+, Microcytosis 1+ 11/23/22 03:36: PT 16.0 H, INR 1.3 11/23/22 03:36: Sodium 140, Potassium 4.0, Chloride 112 H, Carbon Dioxide 23.0, Anion Gap 5, BUN 30 H, Creatinine 0.62, Estim Creat Clear Calc 58.98, Est GFR (MDRD) Af Amer 124, Est GFR (MDRD) Non-Af 102, BUN/Creatinine Ratio 48.3 H, Glucose 216 H, Calcium 8.3 L, Phosphorus 2.2 L, Magnesium 2.1, Total Bilirubin 0.40, AST 84 H, ALT 66 H, Alkaline Phosphatase 485 H, Total Protein 6.2 L, Albumin 1.5 L, Globulin 4.7 H, Albumin/Globulin Ratio 0.3 L 11/23/22 03:36: B-Natriuretic Peptide 1084.4 H Micro: Microbiology 11/22/22 12:40 Wash - Bronchial Wash Respiratory Culture - Preliminary Appears to be normal respiratory dayana. Further studies to follow. 11/22/22 12:40 Wash - Bronchial Wash Respiratory Culture - Preliminary Appears to be normal respiratory dayana. Further studies to follow. 11/20/22 15:55 Sputum, Expectorated/Coughed Gram Stain - Final 11/20/22 15:55 Sputum, Expectorated/Coughed Respiratory Culture - Pre liminary Appears to be normal respiratory dayana. Further studies to follow. 11/21/22 16:35 Sputum, Induced/Lukens Gram Stain - Final 11/21/22 16:35 Sputum, Induced/Lukens Respiratory Culture - Final Presumptive C albicans 11/20/22 14:00 Blood Culture (Wb) - Anticubital Left Bacteria Detection (PCR) - Final Streptococcus pneumoniae 11/20/22 14:00 Blood Culture (Wb) - Anticubital Left Blood Culture - Final Alpha hemolytic organism 11/20/22 13:55 Blood Culture (Wb) - Anticubital Right Blood Culture - Final Streptococcus pneumoniae 11/20/22 13:50 Urine Catheter - Catheter Urine Culture - Final Culture exhibits no growth. 11/20/22 14:57 Mucosa - Nasopharyngeal Influenza Types A,B Direct FA (SAMANTHA) - Final 11/20/22 13:50 Urine Catheter - Catheter Legionella Antigen - Final 11/20/22 13:50 Urine Catheter - Catheter Streptococcus pneumoniae Antigen (M - Final Radiography Diagnostic Testing: Radiology Impression Chest X-Ray 11/23/22 02:20 IMPRESSION: 1. Tubes are in adequate position. 2. Bilateral pleural effusions are not significantly changed from last previous study. 3. Slightly worsened infiltration or atelectasis in the left lung. Slightly improved infiltration or atelectasis in the right lower lung field. Electronically Signed: Kevyn Bowers MD at 3:38 EDT Reading Location ID and State: [facility] / [place] , Service support , Rhythm Strip Rhythm Strip: Sinus Tach Rate: 109 Physical Exam Narrative Patient appears cachectic and older than her stated age Constitutional Narrative: Patient is sedated and on the ventilator HEENT head/scalp atraumatic Eyes conjunctivae normal Neck no JVD Resp normal respiratory effort, no retractions, no use of accessory muscles and clear to auscultation bilaterally Cardio regular rate, regular rhythm, S1 normal heart sound, S2 normal heart sound and no murmurs GI normal to inspection, nondistended, normoactive bowel sounds and non-distended Extremity no clubbing, cyanosis or edema Neuro Neuro Narrative: Patient is sedated and on the ventilator Psych Psych Narrative: Patient is sedated and on the ventilator Assessment & Plan Assessment/Plan (1) Acute and chronic respiratory failure with hypoxia: (2) Acute dyspnea: PLAN: Plan 1. Acute on chronic hypoxic respiratory failure-secondary to atelectasis of the left lung, left pleural effusion, and possible community-acquired pneumonia- patient remains on the ventilator at this time #2 recurrent left pleural effusion-etiology unclear, this appears to be chronic in nature according to medical records obtained from her physician, at this time, patient's transfer to [facility] has been canceled-I do not think it would be of benefit to the patient at this time to transfer to [facility]. #3 chronic hypoxic respiratory failure-patient is on 2 L of oxygen at home #4 hyperlipidemia-patient is on Lipitor #5 chronic severe protein and caloric malnutrition-patient will be seen by nutritional services #6 chronic obstructive pulmonary disease-patient will continue on aerosol treatments #7 coronary artery disease-patient will remain on Plavix and aspirin #8 hypothyroidism-patient will remain on Synthroid #9 essential hypertension-patient will remain on her home medications #10 chronic diastolic congestive heart failure-patient remains on Bumex #11 chronic severe protein and caloric malnutrition in the context of chronic disease related to inadequate oral/energy intake as evidenced by current n.p.o. status n.p.o. status meeting less than 50% of estimated nutritional needs more than 3 weeks with a BMI of 17.7-tube feeds were started with vital AF 1.2- calorie at 20 cc/h to increase rate as tolerated by 10 cc/h every 6-8 hours to goal rate of 40 MLS per hour water flushes 120 cc every 6 hours, nutritional services will monitor patient Total clinical time spent by myself addressing the patient's medical issues, reviewing all of her data, and collaborating with patient's care team: 37 minutes Charges/Coding Visit Charges Inpatient E&M: 01830 Subs Hosp L2
[2022-11-23] MEDS: 0.9% Saline Lock 10 ML Syringe IV (13:00)
[2022-11-23 13:17] LABS: Pathologist Comment/Body Fluid Reviewed
--- NOTE | 2022-11-23 13:18 | CHAPLAIN ---
Type of Pastoral Visit _x__ Initial Visit ___ Follow-up Visit ___ On-call Visit ___ General Patient Visit ___ Spiritual Assessment ___ Family Conference ___ Bereavement ___ Rapid Response ___ Code Blue ___ Other (describe below) Pastoral Care Referral From _x__ Patient ___ Family ___ Nurse ___ Physician ___ [employer] ___ Managing Manager ___ Other (describe below) Sacrament/Intervention ___ Active listening ___ Anointing ___ Latter Day ___ Bereavement ___ Communion ___ Angie exploration ___ ___ Life review _x__ Prayer ___ Reconciliation ___ Sacrament of Sick _x__ Supportive presence ___ Wedding ___ Other (describe below) Pastoral Comments patient is intubated but awake; pt can nod her head and does so when asked if she wanted prayer; gave calm presence and reassurance of care and support
[2022-11-23] MEDS: Propofol 10MG/Ml 1,000 MG/100 ML Bottle 2.6 MG CONT INF (14:51)
[2022-11-23] MEDS: Vital AF 1.2 Cal Liquid 1,000 ML 10 ML GT (15:57)
--- NOTE | 2022-11-23 17:22 | CT_ITS ---
We are attempting to reach an attending provider to discuss findings. An addendum with communication details will be sent when the communication is complete. EXAM: CT ANGIOGRAPHY CHEST WITHOUT AND WITH INTRAVENOUS CONTRAST CLINICAL INDICATION: suspicion of PE, respiratory failure TECHNIQUE: Helically acquired angiography images were obtained of the chest without and with intravenous contrast. This CT exam was performed using one or more of the following dose reduction techniques: automated exposure control, adjustment of the mA and/or kV according to patient size, and/or use of iterative reconstruction technique. This report was created using [employer] ([employer]) report generation technology. MIP reconstructed images were created and reviewed. CONTRAST: IV 75mL [id number] COMPARISON: 06/17/2022. FINDINGS: PULMONARY ARTERIES: Subsegmental pulmonary emboli noted in the right upper lobe. Normal in caliber. AORTA: Unremarkable. Normal in caliber. No evidence of dissection. GREAT VESSELS OF AORTIC ARCH: Unremarkable. Normal in caliber. No evidence of dissection. LUNGS AND PLEURAL SPACES: Moderate bilateral pleural effusions. Moderate centrilobular emphysema bilaterally. Extensive granulomatous calcifications, greatest in the lung bases. Moderate compressive atelectasis bilaterally. No mass. No pneumothorax. HEART: RV/LV ratio = 1.2, consistent with heart strain. No pericardial effusion. MEDIASTINUM: Unremarkable. No mediastinal or hilar adenopathy. Esophagus is unremarkable. No hiatal hernia. THYROID: Unremarkable. No thyroid lesions. BONES/JOINTS: Unremarkable. No suspicious lytic or blastic abnormality. TUBES, LINES AND DEVICES: ET tube terminates 5 mm above the kun. This should be repositioned. NG tube terminates in the stomach as seen on the correspondence representative view. CT/CTA Chest W/WO Contrast IMPRESSION: 1. Mild PE with heart strain. 2. ET tube at the kun. This should be retracted 1.5 to 2 cm. 3. Moderate bilateral pleural effusions. 4. COPD. 5. Old granulomatous disease. Electronically Signed: Anayeli Dailey MD at 20:27 EDT Reading Location ID and State: [id number] / Tel , Service support ,
--- NOTE | 2022-11-23 17:23 | PCM.HOSP.N ---
Hospitalist Note I received a call from cardiology today, patient had echocardiogram which showed right heart strain, I talked with critical care and they recommended the patient undergo CT of the chest to rule out pulmonary embolism, this was ordered this afternoon.
--- NOTE | 2022-11-23 20:53 | PN_ITS ---
Progress Note Notified by Dr. Allison Coffman who talked to [facility] radiology. Patient with mild pulmonary emboli in the upper lobe with evidence of heart strain. Echocardiogram has already been obtained. Per reports patient has ET tube at kun and she retracted. Notified nursing team who discussed with respiratory therapy. Stop prophylactic subcu heparin. Start patient on heparin drip.
[2022-11-23] MEDS: Heparin Injection (Vial) 5,000 UNIT/ML VIAL 3500 UNIT IV (22:15)
[2022-11-23] MEDS: HEPARIN/D5w 25,000 UNITS 25,000 UNITS/250 ML IV.SOLN. 7 UNITS CONT INF (22:16)
[2022-11-24] VITALS (60 sets, daily range): BP systolic 75–115; BP diastolic 44–101; PULSE 71–100; RESP 18–27; TEMP 37–37.5; O2SAT 90–96; BMI 20.7
[2022-11-24] MEDS: Ipratropium/Albuterol Sulfate 3 ML AMPUL.NEB INHALATION (01:45)
[2022-11-24] MEDS: Propofol 10MG/Ml 1,000 MG/100 ML Bottle 2.6 MG CONT INF ×2 (03:00→15:26)
--- NOTE | 2022-11-24 03:22 | CPS ---
MEDIA PROMOTER and RN discussed ETT Tube placement after suggestion from Dr. Pompa of moving tube out and found it would be best for patient to keep ETT tube remaining at 23cm. at patient lip. Due to the fact that this is where the ETT tube has been since intubated.
[2022-11-24 04:04] LABS: Absolute Neutrophil Count 25.5 X10^3/uL (2.0-7.7); Basophil# 0.06 X10^3/uL; Basophil% 0.2 % (0-1); Eosinophil# 0.06 X10^3/uL; Eosinophils% 0.2 % (0-5); Hematocrit 30.6 % (37-47); Hemoglobin 9.5 g/dL (12.0-15.0); Lymphocyte % 0.7 % (19-41); Mean Corpuscular Hgb 22.8 pg (27.0-32.0); Mean Corpuscular Volume 73.6 fL (81-99); Mean Platelet Vol. 10.6 fl (6.2-12.0); Monocyte# 1.08 X10^3/uL; NRBC Flagged by Analyzer 0.1 % (0-5); Neutrophil # 25.54 X10^3/uL (2.7-7.7); Neutrophil % 93.4 % (47-70); POSITIVE DIFFERENTIAL YES; POSITIVE MORPHOLOGY YES; Platelet Count 440 K/mm3 (150-450); RBC Distribution Width SD 72.9 fl (35.1-43.9); Red Blood Count 4.16 M/mm3 (4.2-5.4); White Blood Count 27.3 K/mm3 (4.4-11.0)
[2022-11-24 04:07] LABS: Differential Indicated SCAN CRITERIA MET
[2022-11-24 04:19] LABS: ALB/GLOB Ratio 0.3 RATIO (0.9-2.4); AST(SGOT) 189 U/L (15-37); Alanine Aminotransfer ALT/SGPT 137 U/L (13-56); Albumin, Serum 1.6 g/dL (3.2-5.0); Alkaline Phosphatase 205 U/L (45-117); Anion Gap 5 (5-15); BUN 32 mg/dL (7-18); BUN/Creat Ratio 56.3 RATIO (10-20); Calcium,Total 8.8 mg/dL (8.5-10.1); Chloride 111 mmol/L (98-107); Creatinine, Serum 0.57 mg/dL (0.55-1.02); EST Glomerular Filtration Rate 113 mL/min (>60); Est Glom Filt Rate - Afr Amer 137 mL/min (>60); Estimated Creatinine Clearance 67.26 ml/min; Globulin 4.7 g/dL (2.2-4.2); Glucose 166 mg/dL (74-106); Magnesium 2.5 mg/dL (1.6-2.6); Phosphorus 1.9 mg/dL (2.5-4.9); Potassium 3.9 mmol/L (3.5-5.1); Protein, Total 6.3 g/dL (6.4-8.2); Sodium Level 141 mmol/L (136-145)
[2022-11-24 04:21] LABS: Partial Thromboplast Time 74.7 Seconds (24.1-36.2)
[2022-11-24 04:28] LABS: International Normalized Ratio 1.3; Prothrombin Time (Protime)PT. 15.8 SECONDS (11.7-14.9)
[2022-11-24] MEDS: Levothyroxine 88 MCG Tablet GT (05:01)
[2022-11-24] MEDS: Metoprolol Tartrate 5 MG/5 ML Vial 2.5 MG IV (05:09)
--- NOTE | 2022-11-24 05:12 | RAD_ITS ---
STUDY: X-RAY CHEST REASON FOR EXAM: Female, 67 years old. Acute respiratory failure with hypoxemia TECHNIQUE: Single AP portable view of the chest. COMPARISON: Comparison is made with prior chest radiograph dated November 23, 2022. FINDINGS: An endotracheal tube is in situ. The tip is at the level of the kun. This should be withdrawn approximately 2 cm. An orogastric tube is seen with the tip below the left hemidiaphragm. A left-sided PICC line catheter is seen with the tip at the junction of the superior vena cava and right atrium. EKG electrodes are seen. Improved aeration of the left upper lobe as well as at the lung bases. Residual pleural parenchymal changes at the lung bases slightly worse on the left side. Normal size heart. Normal mediastinum and agapito. Normal visualized pulmonary arteries. There is atherosclerotic calcification of the aortic arch with tortuosity. Normal visualized thoracic spine. Normal visualized ribs, clavicles, and shoulders. There is no demonstrated abnormality of the visualized soft tissue structures of the upper abdomen. RAD/Chest 1 View (Portable) IMPRESSION: The tip of the endotracheal tube is at the level of the kun. This should be withdrawn approximately 2 cm. Improved aeration of both lungs with residual pleural-parenchymal changes seen at the lung bases. Electronically Signed: Bert Hirsch MD at 9:59 EDT ,
[2022-11-24 06:26] LABS: Macrocytosis 1+
[2022-11-24 06:28] LABS: Anisocytosis 2+
--- NOTE | 2022-11-24 07:39 | PCM.PN.INT ---
Assessment & Plan Assessment/Plan (1) Acute and chronic respiratory failure with hypoxia: PLAN: Plan RECOMMENDATIONS: 1. Continue assist-control mode of mechanical ventilation. Wean FiO2 and PEEP for saturations greater than 90%. 2. Continue amiodarone as ordered. Restart low-dose home beta-guzman. 3. Discontinue DuoNebs and transition to Atrovent aerosols. 4. Decrease Solu-Medrol to 40 mg once daily. 5. Continue to hold diuretics. 6. Wean Levophed to maintain a mean arterial pressure at or above 65 mmHg. 7. If pleural effusion were to enlarge, could consider repeat thoracentesis. 8. Continue bowel regimen and tube feeds as tolerated. 9. Continue heparin infusion as ordered. IMPRESSIONS: 1. Acute on chronic hypoxemic respiratory failure The patient has a known history of underlying bronchiectasis and recurrent pleural effusion, which according to documentation, was previously felt to be cardiac in etiology. The patient did undergo a VATS and pleurodesis on the right and in 2019 had a Pleurx catheter on the left side in 2019. There has been discussion in the past about the patient proceeding with thoracic surgery evaluation for left-sided pleural intervention. However, the patient has declined to pursue the work-up. The patient does appear on chest imaging to have bilateral pleural effusions, left greater than right, which appears loculated and chronic in appearance. The patient will be continued on assist control mode mechanical ventilation, with plans to wean FiO2 and PEEP to maintain oxygen saturations at or above 90%. Plan to continue empiric broad-spectrum antimicrobials. Ultimately, I do not feel that the patient requires any emergent intervention regarding her pleural space, as this is a chronic finding. If needed, the patient could be considered for an ultrasound-guided thoracentesis on the left if it meant assisting in weaning from invasive mechanical ventilatory support. The patient will require aggressive bronchopulmonary hygiene following extubation given her cachexia and generalized deconditioning. I do suspect that her acute decompensation during this hospitalization was likely secondary to mucous plugging coupled with atrial fibrillation with RVR and recently identified PE. Ultimately, the patient would benefit from diuresis once hemodynamic status improves. 2. Septic shock secondary to pneumococcal bacteremia/pneumonia Continue antimicrobials as ordered. Continue to wean Levophed as tolerated to maintain a mean arterial pressure at or above 65 mmHg. 3. Paroxysmal atrial fibrillation Plan to continue amiodarone as ordered. Okay to restart home low-dose beta-guzman regimen. 4. Subsegmental PE with RV dysfunction and pulmonary hypertension Continue systemic anticoagulation with heparin as ordered. The patient will require eventual diuresis once her hemodynamic status has improved. 5. COPD with chronic bronchitis In light of the patient's tachycardia, will transition from DuoNebs to Atrovent aerosols. Steroids will be decreased to 40 mg daily. 6. Pulmonary cachexia/hypothyroidism/GERD Complicates care, management, recovery and prognosis. Continue supportive measures as noted above including tube feeds as tolerated. TIME: 34 minutes of critical care time, independent of procedures, was spent addressing the patient's acute on chronic hypoxemic respiratory failure, septic shock, paroxysmal atrial fibrillation, COPD, review of all data and collaboration with the care team. Subjective Subjective The patient was seen and examined at the bedside this morning. Events from the last 24 hours have been reviewed. The patient is currently afebrile and maintaining appropriate hemodynamic status on Levophed at 4 mcg/min. Limited repeat echocardiogram yesterday demonstrated a severely dilated RV with moderate global RV systolic dysfunction and pulmonary hypertension. Therefore, a CTA chest was obtained, which demonstrated subsegmental pulmonary emboli in the right upper lobe. There was continued evidence of bilateral pleural effusions. The patient remains on assist control mode mechanical ventilation with an FiO2 requirement of 60% and PEEP of 8. The patient did go back into atrial fibrillation yesterday when her CT chest was completed. She was subsequently placed back on amiodarone and has since converted back to normal sinus rhythm. Objective Data Objective Data The patient's most recent lab work, culture data and imaging studies have all been personally reviewed. Surface echocardiogram from November 23, 2022 demonstrated an ejection fraction of 70% with a severely dilated RV and moderate global RV systolic dysfunction. Pulmonary artery systolic pressure was estimated to be 55 to 60 mmHg. Blood cultures dated November 20 were positive for Streptococcus pneumonia. Vital Signs: Vital Signs Temp Pulse Resp BP Pulse Ox O2 Del Method O2 Flow Rate 99.5 F H 94 18 101/60 94 Mechanical Ventilator 15 11/24/22 07:00 11/24/22 07:00 11/24/22 07:00 11/24/22 07:00 11/24/22 07:00 11/24/22 07:00 11/20/22 16:00 FiO2 60 11/24/22 07:00 Oxygen Flow Rate (L/min) 15 Oxygen Delivery Method Mechanical Ventilator Weight: 99 lb 3.328 oz Body Mass Index (BMI) 20.7 Intake & Output: Intake and Output for Last 24 Hours 11/22/22 11/23/22 11/24/22 23:59 23:59 23:59 Intake Total 3240.68 / 3264.08 3526.55 / 3601.95 702.92 / 702.92 Output Total 460 / 460 900 / 900 200 / 200 Balance 2780.68 / 2804.08 2626.55 / 2701.95 502.92 / 502.92 Medical Nutrition Assessment Dietitian: Malnutrition Criteria Met Start: 11/20/22 11:25 Freq: Status: Active Protocol: Document 11/23/22 11:35 RMA (Rec: 11/23/22 11:35 RMA [id number]) Nutrition Malnutrition Evidence of Malnutrition Exists Yes Malnutrition (severe): Chronic Evidenced By Suboptimal Energy Intake ( Severe),Weight Loss (Severe), Physical Changes (Moderate) Intake Problem Inadequate Oral Intake Etiology related to increased oxygen needs/intubated state Signs/Symptoms as evidenced by NPO Status Resolved Problem Clinical Problem Chronic Disease or Condition Related Malnutrition Etiology Severe protein-calorie malnutrition in the context of chronic disease related to inadequate oral/energy intake Signs/Symptoms as evidenced by currently NPO, 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 TF via OG tube of Vital AF 1.2 PATRICIO @ 20 ml/hr and increase rate as tolerated by 10 ml/hr Q 6-8 hours to goal rate of 40 ml/hr . Water flush with 120 ml Q 6 hours. TF at goal and water flushes will provide 1152 kcal , 72 gm pro and 1259 ml free water per day. Will monitor TF tolerance as established and adjust enteral nutrition support as indicated. Lab / Micro Data Attestation: I reviewed the patient's lab results. Result Diagrams: 11/24/22 03:50 11/24/22 03:50 Labs: Laboratory Results - last 24 hr 11/22/22 12:40: Fl Pathologist Comment Reviewed 11/23/22 03:36: B-Natriuretic Peptide 1084.4 H 11/23/22 22:05: APTT 31.0 11/24/22 03:50: WBC 27.3 H, RBC 4.16 L, Hgb 9.5 L, Hct 30.6 L, MCV 73.6 L, MCH 22.8 L, MCHC 31.0 L, RDW Std Deviation 72.9 H, RDW Coeff of Angie 28.0 H, Plt Count 440, MPV 10.6, Immature Gran % (Auto) 1.500 H, Neut % (Auto) 93.4 H, Lymph % (Auto) 0.7 L, Irion % (Auto) 4.0, Eos % (Auto) 0.2, Baso % (Auto) 0.2, Absolute Neuts (auto) 25.5 H, Absolute Lymphs (auto) 0.20 L, Nucleated RBC % 0.1, Anisocytosis 2+, Macrocytosis 1+ 11/24/22 03:50: PT 15.8 H, INR 1.3 11/24/22 03:50: Sodium 141, Potassium 3.9, Chloride 111 H, Carbon Dioxide 25.0, Anion Gap 5, BUN 32 H, Creatinine 0.57, Estim Creat Clear Calc 67.26, Est GFR (MDRD) Af Amer 137, Est GFR (MDRD) Non-Af 113, BUN/Creatinine Ratio 56.3 H, Glucose 166 H, Calcium 8.8, Phosphorus 1.9 L, Magnesium 2.5, Total Bilirubin 0.40, AST 189 H, ALT 137 H, Alkaline Phosphatase 205 H, Total Protein 6.3 L, Albumin 1.6 L, Globulin 4.7 H, Albumin/Globulin Ratio 0.3 L 11/24/22 03:50: APTT 74.7 H Micro: Microbiology 11/22/22 12:40 Wash - Bronchial Wash Gram Stain - Final 11/22/22 12:40 Wash - Bronchial Wash Respiratory Culture - Preliminary Appears to be normal respiratory dayana. Further studies to follow. 11/22/22 12:40 Wash - Bronchial Wash Gram Stain - Final 11/22/22 12:40 Wash - Bronchial Wash Respiratory Culture - Preliminary Appears to be normal respiratory dayana. Further studies to follow. 11/20/22 15:55 Sputum, Expectorated/Coughed Gram Stain - Final 11/20/22 15:55 Sputum, Expectorated/Coughed Respiratory Culture - Preliminary Appears to be normal respiratory dayana. Further studies to follow. 11/21/22 16:35 Sputum, Induced/Lukens Gram Stain - Final 11/21/22 16:35 Sputum, Induced/Lukens Respiratory Culture - Final Presumptive C albicans 11/20/22 14:00 Blood Culture (Wb) - Anticubital Left Bacteria Detection (PCR) - Final Streptococcus pneumoniae 11/20/22 14:00 Blood Culture (Wb) - Anticubital Left Blood Culture - Final Alpha hemolytic organism 11/20/22 13:55 Blood Culture (Wb) - Anticubital Right Blood Culture - Final Streptococcus pneumoniae 11/20/22 13:50 Urine Catheter - Catheter Urine Culture - Final Culture exhibits no growth. 11/20/22 14:57 Mucosa - Nasopharyngeal Influenza Types A,B Direct FA (SAMANTHA) - Final 11/20/22 13:50 Urine Catheter - Catheter Legionella Antigen - Final 11/20/22 13:50 Urine Catheter - Catheter Streptococcus pneumoniae Antigen (M - Final Radiography Diagnostic Testing: Radiology Impression Echocardiogram 11/23/22 08:14 Interpretation Summary The estimated ejection fraction is 70 %. Severely dilated right ventricle. Moderate global right ventricular systolic dysfunction. Trivial pericardial effusion. Aortic sclerosis, no stenosis. Unable to assess diastolic dysfunction. Ordering Physician: Darrin Meredith Referring Physician: BO Performed By: Rachna Portillo RCS Chest CTA 11/23/22 17:22 IMPRESSION: 1. Mild PE with heart strain. 2. ET tube at the kun. This should be retracted 1.5 to 2 cm. 3. Moderate bilateral pleural effusions. 4. COPD. 5. Old granulomatous disease. Electronically Signed: Anayeli Dailey MD at 20:27 EDT Reading Location ID and State: [place] Tel , Service support , ADDENDUM: 11/23/222050 IMPRESSION: 1. Mild PE with heart strain. 2. ET tube at the kun. This should be retracted 1.5 to 2 cm. 3. Moderate bilateral pleural effusions. 4. COPD. 5. Old granulomatous disease. N.B. : The above Results were Read Back by Anayeli Dailey MD to Allison berrios MD, and understanding confirmed on 11/23/2022 20:44:15 (ET). Electronically Signed: Anayeli Dailey MD at 20:27 EDT Reading Location ID and State: [place] Tel , Service support , Rhythm Strip Rhythm Strip: Sinus Tach Rate: 109 Physical Exam Const Constitutional Narrative: Intubated, sedated and mechanically ventilated. No ventilator dyssynchrony. HEENT normocephalic and head/scalp atraumatic Mouth: endotracheal tube in place and OG tube in place Eyes PERRL and EOMs intact bilaterally Neck supple General: trachea midline Chest inspection of chest normal Resp normal respiratory effort Auscultation: diminished lung sounds; Negative for rales, rhonchi or wheezes Cardio regular rhythm, S1 normal heart sound and S2 normal heart sound Cardio Narrative: Currently in normal sinus rhythm GI normal to inspection, nondistended, normoactive bowel sounds Extremity no clubbing, cyanosis or edema Skin no rashes or lesions noted Neuro Neuro Narrative: Alert and able to follow simple commands. Sensorium / Orientation: sedated on vent Charges/Coding Procedures Hospitalists Procedures: [id number] Critial Care 1st Hr
[2022-11-24] MEDS: Polyethylene Glycol 3350 17 GM PACKET GT ×2 (08:44→20:48)
[2022-11-24] MEDS: Senna/Docusate Sodium 1 Tablet 2 TABLET GT ×2 (08:45→20:48)
[2022-11-24] MEDS: Aspirin 81 MG TAB.CHEW GT (08:45)
[2022-11-24] MEDS: Chlorhexidine 15 ML PO ×2 (08:46→20:49)
[2022-11-24] MEDS: Clopidogrel Bisulfate 75 MG Tablet GT (08:46)
--- NOTE | 2022-11-24 09:49 | PN.HOSP_ITS ---
Subjective Subjective Intubated and sedated Objective Data Objective Data Vital Signs: Vital Signs Temp Pulse Resp BP Pulse Ox O2 Del Method O2 Flow Rate 99.5 F H 100 26 H 102/61 92 Mechanical Ventilator 15 11/24/22 08:00 11/24/22 09:16 11/24/22 09:16 11/24/22 09:00 11/24/22 09:16 11/24/22 09:00 11/20/22 16:00 FiO2 60 11/24/22 09:16 Oxygen Flow Rate (L/min) 15 Oxygen Delivery Method Mechanical Ventilator Weight: 99 lb 3.328 oz Body Mass Index (BMI) 20.7 Intake & Output: Intake and Output for Last 24 Hours 11/23/22 11/24/22 11/25/22 03:59 03:59 03:59 Intake Total 3740.66 / 3774.50 3431.82 / 3470.62 536.67 / 536.67 Output Total 460 / 460 900 / 900 200 / 200 Balance 3280.66 / 3314.50 2531.82 / 2570.62 336.67 / 336.67 Medical Nutrition Assessment Dietitian: Malnutrition Criteria Met Start: 11/20/22 11:25 Freq: Status: Active Protocol: Document 11/23/22 11:35 RMA (Rec: 11/23/22 11:35 RMA [id number]) Nutrition Malnutrition Evidence of Malnutrition Exists Yes Malnutrition (severe): Chronic Evidenced By Suboptimal Energy Intake ( Severe),Weight Loss (Severe), Physical Changes (Moderate) Intake Problem Inadequate Oral Intake Etiology related to increased oxygen needs/intubated state Signs/Symptoms as evidenced by NPO Status Resolved Problem Clinical Problem Chronic Disease or Condition Related Malnutrition Etiology Severe protein-calorie malnutrition in the context of chronic disease related to inadequate oral/energy intake Signs/Symptoms as evidenced by currently NPO, 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 TF via OG tube of Vital AF 1.2 PATRICIO @ 20 ml/hr and increase rate as tolerated by 10 ml/hr Q 6-8 hours to goal rate of 40 ml/hr . Water flush with 120 ml Q 6 hours. TF at goal and water flushes will provide 1152 kcal , 72 gm pro and 1259 ml free water per day. Will monitor TF tolerance as established and adjust enteral nutrition support as indicated. Lab / Micro Data Result Diagrams: 11/24/22 03:50 11/24/22 03:50 Labs: Laboratory Results - last 24 hr 11/22/22 12:40: Fl Pathologist Comment Reviewed 11/23/22 22:05: APTT 31.0 11/24/22 03:50: WBC 27.3 H, RBC 4.16 L, Hgb 9.5 L, Hct 30.6 L, MCV 73.6 L, MCH 22.8 L, MCHC 31.0 L, RDW Std Deviation 72.9 H, RDW Coeff of Angie 28.0 H, Plt C ount 440, MPV 10.6, Immature Gran % (Auto) 1.500 H, Neut % (Auto) 93.4 H, Lymph % (Auto) 0.7 L, [place] % (Auto) 4.0, Eos % (Auto) 0.2, Baso % (Auto) 0.2, Absolute Neuts (auto) 25.5 H, Absolute Lymphs (auto) 0.20 L, Nucleated RBC % 0.1, Anisocytosis 2+, Macrocytosis 1+ 11/24/22 03:50: PT 15.8 H, INR 1.3 11/24/22 03:50: Sodium 141, Potassium 3.9, Chloride 111 H, Carbon Dioxide 25.0, Anion Gap 5, BUN 32 H, Creatinine 0.57, Estim Creat Clear Calc 67.26, Est GFR (MDRD) Af Amer 137, Est GFR (MDRD) Non-Af 113, BUN/Creatinine Ratio 56.3 H, Glucose 166 H, Calcium 8.8, Phosphorus 1.9 L, Magnesium 2.5, Total Bilirubin 0.40, AST 189 H, ALT 137 H, Alkaline Phosphatase 205 H, Total Protein 6.3 L, Albumin 1.6 L, Globulin 4.7 H, Albumin/Globulin Ratio 0.3 L 11/24/22 03:50: APTT 74.7 H Micro: Microbiology 11/22/22 12:40 Wash - Bronchial Wash Gram Stain - Final 11/22/22 12:40 Wash - Bronchial Wash Respiratory Culture - Preliminary Culture exhibits no growth. 11/22/22 12:40 Wash - Bronchial Wash Gram Stain - Final 11/22/22 12:40 Wash - Bronchial Wash Respiratory Culture - Preliminary Culture exhibits no growth. 11/20/22 15:55 Sputum, Expectorated/Coughed Gram Stain - Final 11/20/22 15:55 Sputum, Expectorated/Coughed Respiratory Culture - Preliminary Streptococcus pneumoniae 11/21/22 16:35 Sputum, Induced/Lukens Gram Stain - Final 11/21/22 16:35 Sputum, Induced/Lukens Respiratory Culture - Final Presumptive C albicans 11/20/22 14:00 Blood Culture (Wb) - Anticubital Left Bacteria Detection (PCR) - Final Streptococcus pneumoniae 11/20/22 14:00 Blood Culture (Wb) - Anticubital Left Blood Culture - Final Alpha hemolytic organism 11/20/22 13:55 Blood Culture (Wb) - Anticubital Right Blood Culture - Final Streptococcus pneumoniae 11/20/22 13:50 Urine Catheter - Catheter Urine Culture - Final Culture exhibits no growth. 11/20/22 14:57 Mucosa - Nasopharyngeal Influenza Types A,B Direct FA (SAMANTHA) - Final 11/20/22 13:50 Urine Catheter - Catheter Legionella Antigen - Final 11/20/22 13:50 Urine Catheter - Catheter Streptococcus pneumoniae Antigen (M - Final Radiography Diagnostic Testing: Radiology Impression Echocardiogram 11/23/22 08:14 Interpretation Summary The estimated ejection fraction is 70 %. Severely dilated right ventricle. Moderate global right ventricular systolic dysfunction. Trivial pericardial effusion. Aortic sclerosis, no stenosis. Unable to assess diastolic dysfunction. Ordering Physician: Darrin Meredith Referring Physician: BO Performed By: Rachna Portillo RCS Chest CTA 11/23/22 17:22 IMPRESSION: 1. Mild PE with heart strain. 2. ET tube at the kun. This should be retracted 1.5 to 2 cm. 3. Moderate bilateral pleural effusions. 4. COPD. 5. Old granulomatous disease. Electronically Signed: Anayeli Dailey MD at 20:27 EDT Reading Location ID and State: [address] Tel , Service support , ADDENDUM: 11/23/222050 IMPRESSION: 1. Mild PE with heart strain. 2. ET tube at the kun. This should be retracted 1.5 to 2 cm. 3. Moderate bilateral pleural effusions. 4. COPD. 5. Old granulomatous disease. N.B. : The above Results were Read Back by Anayeli Dailey MD to Allison berrios MD, and understanding confirmed on 11/23/2022 20:44:15 (ET). Electronically Signed: Anayeli Dailey MD at 20:27 EDT Reading Location ID and State: [address] / Tel , Service support , Rhythm Strip Rhythm Strip: Sinus Tach Rate: 109 Physical Exam Const General Appearance: intubated and patient mechanically ventilated HEENT normocephalic Eyes PERRL and conjunctivae normal Neck supple and no JVD Resp normal respiratory effort, no retractions and no use of accessory muscles Auscultation: Negative for crackles, rales, rhonchi or wheezes Cardio regular rate, regular rhythm, S1 normal heart sound, S2 normal heart sound and no murmurs GI soft to palpation and non-distended; Negative for hepatosplenomegaly Extremity no clubbing, cyanosis or edema Skin no rashes or lesions noted Neuro Sensorium / Orientation: sedated on vent Psych Appearance: intubated Assessment & Plan Assessment/Plan (1) Acute and chronic respiratory failure with hypoxia: (2) Acute dyspnea: PLAN: Plan 1. Acute on chronic hypoxic respiratory failure secondary to continued left pleural effusion and community-acquired pneumonia and strep bacteremia with septic versus cardiogenic shock secondary to PEs and right heart strain/COPD ? Blood cultures demonstrates strep pneumonia ? We will continue with broad spectrum antibiotics ? Continue with anticoagulation for subsegmental PEs, echo did demonstrate right heart strain ? In discussions with the bottle carrier it does not appear that the left pleural effusion is significantly changed from baseline at this time no need to transfer ? Continue pressors wean as able ? Continue with treatments and steroids 2. CAD status post stent/HTN/HLD/chronic diastolic CHF ? Can continue with aspirin via G-tube as well as Lipitor ? Blood pressures are stable can continue with the low-dose metoprolol ? We will hold diuretics at this time 3. Hypothyroidism ? Stable ? Continue with Synthroid 4. Severe chronic protein calorie malnutrition ? Continue with nutritional evaluation 5. GERD ? Stable ? Continue with PPI DVT: Heparin drip Charges/Coding Visit Charges Inpatient E&M: 41659 Subs Hosp L2
[2022-11-24] MEDS: Metoprolol Tartrate 25 MG Tablet 12.5 MG GT ×2 (09:58→20:52)
[2022-11-24] MEDS: Lactulose 20 GM/30 ML UDC GT (09:59)
[2022-11-24 10:36] LABS: Partial Thromboplast Time 77.6 Seconds (24.1-36.2)
[2022-11-24] MEDS: Midodrine HCl 5 MG Tablet 10 MG PO ×2 (11:13→16:54)
[2022-11-24 12:09] LABS: Anti-Centromere B Ab <0.2 AI (0.0-0.9); Anti-Chromatin <0.2 AI (0.0-0.9); Anti-Jo <0.2 AI (0.0-0.9); Anti-Scleroderma-70 AB <0.2 AI (0.0-0.9); RNP Ab <0.2 AI (0.0-0.9); SJOGREN'S Anti-SS-A test < 0.2 AI (0.0-0.9); SJOGREN'S Anti-SS-B test < 0.2 AI (0.0-0.9); Smith Ab <0.2 AI (0.0-0.9)
[2022-11-24 13:16] LABS: Pathologist Comment/Body Fluid Reviewed
[2022-11-24] MEDS: Ipratropium 0.5 MG/2.5 ML SOLUTION INHALATION ×2 (13:42→19:00)
--- NOTE | 2022-11-24 13:58 | CASEMGMT ---
MARCELA JAIMES Assessment: TC to pt son/DPOA Damion Everett for initial transition planning/care coordination assessment. RN CM introduced self and role at [facility], pt son voices understanding and consents to assessment. Care providers, pharmacy, and demographics verified/updated. Admitting Dx: left pleural effusion, hypoxia PCP:Jose Specialists:scottie Ernst Preferred Pharmacy: [facility] Insurance: [employer] [facility] A Prescription Benefit: yes LNOK: Damion Everett, son; Bijan Everett, son Living Arrangements: Pt lives with son Damion in a single story home with 2 steps to enter without a rail. Pt son reports pt was I in ADL's prior to hospitalization. Pt son does laundry which is in the basement. Pt stays on main level. Transportation: Pt drove self prior to hospitalization. DME/HHC/SNF: Pt has oxygen through [employer], message to rep to verify liter flow. Pt has portable tanks at home as well. Pt has a pox at home and a cane. Pt typically does not use AD. Pt does not have any hx of HHC or SNF stays. Pt son states no further concerns/needs. CM to follow. Advised pt son to ask CM if any further question/concerns/needs arise, voices understanding. Pt Son Goal: Pt to return home Plan: TBD
[2022-11-24] MEDS: Vital AF 1.2 Cal Liquid 1,000 ML 40 ML GT (15:26)
[2022-11-24 16:36] LABS: Anti-dsDNA Ab 2 IU/mL (0-9)
[2022-11-24 17:04] LABS: Partial Thromboplast Time 48.6 Seconds (24.1-36.2)
[2022-11-24] MEDS: Heparin Injection (Vial) 5,000 UNIT/ML VIAL IV (17:56)
[2022-11-24 22:07] LABS: QNTFERON TB Mitogen Value 0.28 IU/mL (.); QNTFERON TB Nil Value 0 IU/mL (.); QNTFERON TB1+ Ag Value 0 IU/mL (.); QNTFERON TB2+ Ag Value 0 IU/mL (.)
[2022-11-25] VITALS (39 sets, daily range): BP systolic 77–136; BP diastolic 37–95; PULSE 62–102; RESP 12–27; TEMP 37–37.5; O2SAT 90–96; BMI 21.2
[2022-11-25 00:44] LABS: Partial Thromboplast Time 63.7 Seconds (24.1-36.2)
[2022-11-25] MEDS: Propofol 10MG/Ml 1,000 MG/100 ML Bottle 2.6 MG CONT INF (03:26)
[2022-11-25 04:01] LABS: Absolute Lymphocyte Count 0.33 X10^3/uL (0.83-4.51); Absolute Neutrophil Count 22.2 X10^3/uL (2.0-7.7); Basophil# 0.08 X10^3/uL; Basophil% 0.3 % (0-1); Hematocrit 30.1 % (37-47); Hemoglobin 9.3 g/dL (12.0-15.0); Lymphocyte # 0.33 X10^3/ul (0.83-4.51); Lymphocyte % 1.4 % (19-41); Mean Corp Hgb Conc 30.9 g/dL (32-36); Mean Corpuscular Hgb 22.6 pg (27.0-32.0); Mean Corpuscular Volume 73.1 fL (81-99); Mean Platelet Vol. 10.9 fl (6.2-12.0); Monocyte# 0.91 X10^3/uL; Monocyte% 3.8 % (0-10); NRBC Flagged by Analyzer 0.3 % (0-5); Neutrophil # 22.23 X10^3/uL (2.7-7.7); Neutrophil % 92.7 % (47-70); POSITIVE DIFFERENTIAL YES; POSITIVE MORPHOLOGY YES; Platelet Count 424 K/mm3 (150-450); RBC Distribution Width CV 28.6 % (11.6-14.6); RBC Distribution Width SD 72.9 fl (35.1-43.9); Red Blood Count 4.12 M/mm3 (4.2-5.4)
[2022-11-25 04:02] LABS: Differential Indicated SCAN CRITERIA MET
[2022-11-25 04:15] LABS: Microcytosis 2+
[2022-11-25 04:16] LABS: ALB/GLOB Ratio 0.4 RATIO (0.9-2.4); AST(SGOT) 422 U/L (15-37); Alanine Aminotransfer ALT/SGPT 378 U/L (13-56); Albumin, Serum 1.6 g/dL (3.2-5.0); Alkaline Phosphatase 229 U/L (45-117); Anion Gap 4 (5-15); Anisocytosis 2+; BUN 35 mg/dL (7-18); BUN/Creat Ratio 71.6 RATIO (10-20); Calcium,Total 8.9 mg/dL (8.5-10.1); Chloride 109 mmol/L (98-107); Creatinine, Serum 0.49 mg/dL (0.55-1.02); EST Glomerular Filtration Rate 135 mL/min (>60); Est Glom Filt Rate - Afr Amer 163 mL/min (>60); Estimated Creatinine Clearance 81.31 ml/min; Globulin 4.5 g/dL (2.2-4.2); Glucose 145 mg/dL (74-106); Protein, Total 6.1 g/dL (6.4-8.2); Sodium Level 140 mmol/L (136-145)
[2022-11-25] MEDS: Levothyroxine 88 MCG Tablet GT (04:53)
--- NOTE | 2022-11-25 05:55 | RAD_ITS ---
EXAM: XR CHEST, 1 VIEW CLINICAL INDICATION: acute respiratory failure with hypoxemia TECHNIQUE: Frontal view of the chest. This report was created using [employer] report generation technology. COMPARISON: 11/24/2022 FINDINGS: LUNGS AND PLEURAL SPACES: Moderate pleural effusions and patchy bilateral airspace disease. No pneumothorax. HEART: Unremarkable. Cardiac silhouette not enlarged. MEDIASTINUM: Central airways and mediastinal contour are unremarkable. BONES/JOINTS: Unremarkable. SOFT TISSUES: Unremarkable. TUBES, LINES AND DEVICES: Endotracheal tube with tip 1.4 cm above the kun. Stable left PICC and enteric tube. RAD/Chest 1 View (Portable) IMPRESSION: Moderate pleural effusions and patchy bilateral airspace disease. Findings likely indicate pneumonia. Electronically Signed: Gee Gilliland MD at 7:08 EDT ,
[2022-11-25 06:24] LABS: Partial Thromboplast Time 55.8 Seconds (24.1-36.2)
[2022-11-25] MEDS: Ipratropium 0.5 MG/2.5 ML SOLUTION INHALATION ×3 (07:21→19:05)
[2022-11-25] MEDS: Clopidogrel Bisulfate 75 MG Tablet GT (07:55)
[2022-11-25] MEDS: Senna/Docusate Sodium 1 Tablet 2 TABLET GT ×2 (07:55→20:50)
[2022-11-25] MEDS: Midodrine HCl 5 MG Tablet 10 MG PO ×3 (07:56→17:50)
[2022-11-25] MEDS: Aspirin 81 MG TAB.CHEW GT (07:56)
[2022-11-25] MEDS: Chlorhexidine 15 ML PO ×2 (07:56→20:50)
[2022-11-25] MEDS: Metoprolol Tartrate 25 MG Tablet 12.5 MG GT (07:57)
[2022-11-25] MEDS: Polyethylene Glycol 3350 17 GM PACKET GT ×2 (07:58→20:51)
[2022-11-25] MEDS: Bisacodyl 5 MG Tablet 10 MG PO (08:05)
[2022-11-25] MEDS: HEPARIN/D5w 25,000 UNITS 25,000 UNITS/250 ML IV.SOLN. 8 UNITS CONT INF (08:06)
--- NOTE | 2022-11-25 08:32 | PCM.PN.HOSP ---
Subjective Subjective Intubated and sedated no new issues overnight Objective Data Objective Data Vital Signs: Vital Signs Temp Pulse Resp BP Pulse Ox O2 Del Method O2 Flow Rate 99.3 F H 94 27 H 130/95 H 92 Mechanical Ventilator 15 11/25/22 07:00 11/25/22 07:57 11/25/22 07:22 11/25/22 07:57 11/25/22 07:22 11/25/22 07:22 11/20/22 16:00 FiO2 75 11/25/22 07:22 Oxygen Flow Rate (L/min) 15 Oxygen Delivery Method Mechanical Ventilator Weight: 101 lb 6.602 oz Body Mass Index (BMI) 21.2 Intake & Output: Intake and Output for Last 24 Hours 11/24/22 11/25/22 11/26/22 03:59 03:59 03:59 Intake Total 3431.82 / 3470.62 2370.88 / 2403.95 143.44 / 143.44 Output Total 900 / 900 675 / 675 0 / 0 Balance 2531.82 / 2570.62 1695.88 / 1728.95 143.44 / 143.44 Medical Nutrition Assessment Dietitian: Malnutrition Criteria Met Start: 11/20/22 11:25 Freq: Status: Active Protocol: Document 11/24/22 10:45 RMA (Rec: 11/24/22 10:45 RMA [id number]) Nutrition Malnutrition Evidence of Malnutrition Exists Yes Malnutrition (severe): Chronic Evidenced By Suboptimal Energy Intake ( Severe),Weight Loss (Severe), Physical Changes (Moderate) Intake Problem Inadequate Oral Intake Etiology related to increased oxygen needs/intubated state Signs/Symptoms as evidenced by NPO Status Resolved Problem Clinical Problem Chronic Disease or Condition Related Malnutrition Etiology Severe protein-calorie malnutrition in the context of chronic disease related to inadequate oral/energy intake Signs/Symptoms as evidenced by currently NPO, 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 TF via OG tube of Vital AF 1.2 PATRICIO @ 20 ml/hr and increase rate as tolerated by 10 ml/hr Q 6-8 hours to goal rate of 40 ml/hr . Water flush with 120 ml Q 6 hours. TF at goal and water flushes will provide 1152 kcal , 72 gm pro and 1259 ml free water per day. Will monitor TF tolerance as established and adjust enteral nutrition support/water flushes as indicated. Lab / Micro Data Result Diagrams: 11/25/22 03:45 11/25/22 03:45 Labs: Laboratory Results - last 24 hr 11/22/22 10:25: JOSIE-1 Antibody <0.2, SS-A/Ro IgG Antibody < 0.2, SS-B/La IgG Antibody < 0.2, Sm ([place]) Antibody <0.2, OCCUPATIONAL THERAPY ASSIST Antibody <0.2, Scl-70 Scleroderma Ab <0.2, Double Strand DNA Ab 2, Centromere B Antibody <0.2 11/22/22 12:40: Fl Pathologist Comment Reviewed 11/24/22 09:55: APTT 77.6 H 11/24/22 16:45: APTT 48.6 H 11/25/22 00:15: APTT 63.7 H 11/25/22 03:45: WBC 24.0 H, RBC 4.12 L, Hgb 9.3 L, Hct 30.1 L, MCV 73.1 L, MCH 22.6 L, MCHC 30.9 L, RDW Std Deviation 72.9 H, RDW Coeff of Angie 28.6 H, Plt Count 424, MPV 10.9, Immature Gran % (Auto) 1.800 H, Neut % (Auto) 92.7 H, Lymph % (Auto) 1.4 L, [place] % (Auto) 3.8, Eos % (Auto) 0.0, Baso % (Auto) 0.3, Absolute Neuts (auto) 22.2 H, Absolute Lymphs (auto) 0.33 L, Nucleated RBC % 0.3, Anisocytosis 2+, Microcytosis 2+ 11/25/22 03:45: Sodium 140, Potassium 4.0, Chloride 109 H, Carbon Dioxide 27.0, Anion Gap 4 L, BUN 35 H, Creatinine 0.49 L, Estim Creat Clear Calc 81.31, Est GFR (MDRD) Af Amer 163, Est GFR (MDRD) Non-Af 135, BUN/Creatinine Ratio 71.6 H, Glucose 145 H, Calcium 8.9, Total Bilirubin 0.30, AST 422 H, ALT 378 H, Alkaline Phosphatase 229 H, Total Protein 6.1 L, Albumin 1.6 L, Globulin 4.5 H, Albumin/Globulin Ratio 0.4 L 11/25/22 06:00: APTT 55.8 H Micro: Microbiology 11/22/22 12:40 Wash - Bronchial Wash Gram Stain - Final 11/22/22 12:40 Wash - Bronchial Wash Respiratory Culture - Final Culture exhibits no growth. 11/22/22 12:40 Wash - Bronchial Wash Gram Stain - Final 11/22/22 12:40 Wash - Bronchial Wash Respiratory Culture - Final Culture exhibits no growth. 11/20/22 15:55 Sputum, Expectorated/Coughed Gram Stain - Final 11/20/22 15:55 Sputum, Expectorated/Coughed Respiratory Culture - Final Streptococcus pneumoniae 11/21/22 16:35 Sputum, Induced/Lukens Gram Stain - Final 11/21/22 16:35 Sputum, Induced/Lukens Respiratory Culture - Final Presumptive C albicans 11/20/22 14:00 Blood Culture (Wb) - Anticubital Left Bacteria Detection (PCR) - Final Streptococcus pneumoniae 11/20/22 14:00 Blood Culture (Wb) - Anticubital Left Blood Culture - Final Alpha hemolytic organism 11/20/22 13:55 Blood Culture (Wb) - Anticubital Right Blood Culture - Final Streptococcus pneumoniae 11/20/22 13:50 Urine Catheter - Catheter Urine Culture - Final Culture exhibits no growth. 11/20/22 14:57 Mucosa - Nasopharyngeal Influenza Types A,B Direct FA (SAMANTHA) - Final 11/20/22 13:50 Urine Catheter - Catheter Legionella Antigen - Final 11/20/22 13:50 Urine Catheter - Catheter Streptococcus pneumoniae Antigen (M - Final Radiography Diagnostic Testing: Radiology Impression Chest X-Ray 11/24/22 05:12 IMPRESSION: The tip of the endotracheal tube is at the level of the kun. This should be withdrawn approximately 2 cm. Improved aeration of both lungs with residual pleural-parenchymal changes seen at the lung bases. Electronically Signed: Bert Hirsch MD at 9:59 EDT , Chest X-Ray 11/25/22 05:55 IMPRESSION: Moderate pleural effusions and patchy bilateral airspace disease. Findings likely indicate pneumonia. Electronically Signed: Gee Gilliland MD at 7:08 EDT Reading Location ID and State: [facility] / [place] Tel , Service support , Rhythm Strip Rhythm Strip: Sinus Tach Rate: 109 Physical Exam Narrative Const General Appearance: intubated and patient mechanically ventilated HEENT normocephalic Eyes PERRL and conjunctivae normal Neck supple and no JVD Resp normal respiratory effort, no retractions and no use of accessory muscles Auscultation: Negative for crackles, rales, rhonchi or wheezes Cardio regular rate, regular rhythm, S1 normal heart sound, S2 normal heart sound and no murmurs GI soft to palpation and non-distended; Negative for hepatosplenomegaly Extremity no clubbing, cyanosis or edema Skin no rashes or lesions noted Neuro Sensorium / Orientation: sedated on vent Psych Appearance: intubated Assessment & Plan Assessment/Plan (1) Acute and chronic respiratory failure with hypoxia: (2) Acute dyspnea: PLAN: Plan 1. Acute on chronic hypoxic respiratory failure secondary to continued left pleural effusion and community-acquired pneumonia and strep bacteremia with septic versus cardiogenic shock secondary to PEs and right heart strain/COPD ? Blood cultures demonstrates strep pneumonia ? We will continue with broad spectrum antibiotics ? We will initiate diuretics ? Continue with anticoagulation for subsegmental PEs, echo did demonstrate right heart strain ? In discussions with the project structural engineer it does not appear that the left pleural effusion is significantly changed from baseline at this time no need to transfer ? Continue pressors wean as able ? Continue with treatments and steroids 2. CAD status post stent/HTN/HLD/chronic diastolic CHF/paroxysmal A-fib ? Can continue with aspirin via G-tube as well as Lipitor ? Blood pressures are stable can continue with the low-dose metoprolol ? Can restart diuretics and continue with amiodarone 3. Hypothyroidism ? Stable ? Continue with Synthroid 4. Severe chronic protein calorie malnutrition ? Continue with nutritional evaluation 5. GERD ? Stable ? Continue with PPI DVT: Heparin drip Charges/Coding Visit Charges Inpatient E&M: 64534 Subs Hosp L2
--- NOTE | 2022-11-25 08:41 | PCM.PN.INT ---
Assessment & Plan Assessment/Plan (1) Acute and chronic respiratory failure with hypoxia: PLAN: Plan RECOMMENDATIONS: 1. Continue assist-control mode of mechanical ventilation. Wean FiO2 and PEEP for saturations greater than 90%. 2. Continue amiodarone and beta-guzman regimen. 3. Continue scheduled Atrovent aerosols. 4. Continue Solu-Medrol to 40 mg once daily. 5. Initiate low-dose Lasix today. 6. Wean Levophed to maintain a mean arterial pressure at or above 65 mmHg. 7. If pleural effusion were to enlarge, could consider repeat thoracentesis. 8. Continue bowel regimen and tube feeds as tolerated. 9. Continue heparin infusion as ordered. 10. Check GGT and liver ultrasound. IMPRESSIONS: 1. Acute on chronic hypoxemic respiratory failure The patient has a known history of underlying bronchiectasis and recurrent pleural effusion, which according to documentation, was previously felt to be cardiac in etiology. The patient did undergo a VATS and pleurodesis on the right and in 2019 had a Pleurx catheter on the left side in 2019. There has been discussion in the past about the patient proceeding with thoracic surgery evaluation for left-sided pleural intervention. However, the patient has declined to pursue the work-up. The patient does appear on chest imaging to have bilateral pleural effusions, left greater than right, which appears loculated and chronic in appearance. The patient will be continued on assist control mode mechanical ventilation, with plans to wean FiO2 and PEEP to maintain oxygen saturations at or above 90%. Plan to continue empiric broad-spectrum antimicrobials. Ultimately, I do not feel that the patient requires any emergent intervention regarding her pleural space, as this is a chronic finding. If needed, the patient could be considered for an ultrasound-guided thoracentesis on the left if it meant assisting in weaning from invasive mechanical ventilatory support. The patient will require aggressive bronchopulmonary hygiene following extubation given her cachexia and generalized deconditioning. I do suspect that her acute decompensation during this hospitalization was likely secondary to mucous plugging coupled with atrial fibrillation with RVR and hypervolemia. Ultimately, the patient would benefit from diuresis once hemodynamic status improves. 2. Septic shock secondary to pneumococcal bacteremia/pneumonia Continue antimicrobials as ordered. Continue to wean Levophed as tolerated to maintain a mean arterial pressure at or above 65 mmHg. 3. Paroxysmal atrial fibrillation Plan to continue amiodarone and beta-guzman as ordered. 4. Subsegmental PE with RV dysfunction and pulmonary hypertension Continue systemic anticoagulation with heparin as ordered. The patient will require eventual diuresis once her hemodynamic status has improved. 5. COPD with chronic bronchitis Continue scheduled Atrovent aerosols. Continue IV steroids 40 mg daily. 6. Pulmonary cachexia/hypothyroidism/GERD Complicates care, management, recovery and prognosis. Continue supportive measures as noted above including tube feeds as tolerated. TIME: 32 minutes of critical care time, independent of procedures, was spent addressing the patient's acute on chronic hypoxemic respiratory failure, septic shock, paroxysmal atrial fibrillation, COPD, review of all data and collaboration with the care team. Subjective Subjective The patient was seen and examined at the bedside this morning. Events from the last 24 hours have been reviewed. The patient is currently afebrile and remains on assist control mode mechanical ventilation with an FiO2 requirement of 65% and PEEP of 5. The patient is on low-dose Levophed at 1 mcg/min to maintain hemodynamic stability. Today is vent day #5. The patient remains on amiodarone. She is documented to be overall net +8.5 L for the hospitalization. White count is elevated at 24,000. AST and ALT are increased to 422 and 378, respectively. Objective Data Objective Data The patient's most recent lab work, culture data and imaging studies have all been personally reviewed. Surface echocardiogram from November 23, 2022 demonstrated an ejection fraction of 70% with a severely dilated RV and moderate global RV systolic dysfunction. Pulmonary artery systolic pressure was estimated to be 55 to 60 mmHg. Blood cultures dated November 20 were positive for Streptococcus pneumonia. Vital Signs: Vital Signs Temp Pulse Resp BP Pulse Ox O2 Del Method O2 Flow Rate 99.3 F H 94 27 H 130/95 H 92 Mechanical Ventilator 15 11/25/22 07:00 11/25/22 07:57 11/25/22 07:22 11/25/22 07:57 11/25/22 07:22 11/25/22 07:22 11/20/22 16:00 FiO2 75 11/25/22 07:22 Oxygen Flow Rate (L/min) 15 Oxygen Delivery Method Mechanical Ventilator Weight: 101 lb 6.602 oz Body Mass Index (BMI) 21.2 Intake & Output: Intake and Output for Last 24 Hours 11/23/22 11/24/22 11/25/22 23:59 23:59 23:59 Intake Total 3526.55 / 3601.95 2149.94 / 2521.81 794.43 / 794.43 Output Total 900 / 900 675 / 675 0 / 0 Balance 2626.55 / 2701.95 1474.94 / 1846.81 794.43 / 794.43 Medical Nutrition Assessment Dietitian: Malnutrition Criteria Met Start: 11/20/22 11:25 Freq: Status: Active Protocol: Document 11/24/22 10:45 RMA (Rec: 11/24/22 10:45 RMA [id number]) Nutrition Malnutrition Evidence of Malnutrition Exists Yes Malnutrition (severe): Chronic Evidenced By Suboptimal Energy Intake ( Severe),Weight Loss (Severe), Physical Changes (Moderate) Intake Problem Inadequate Oral Intake Etiology related to increased oxygen needs/intubated state Signs/Symptoms as evidenced by NPO Status Resolved Problem Clinical Problem Chronic Disease or Condition Related Malnutrition Etiology Severe protein-calorie malnutrition in the context of chronic disease related to inadequate oral/energy intake Signs/Symptoms as evidenced by currently NPO, PO meeting <50% of estimated nutritional needs x > 3 wks caregiver services home, 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 TF via OG tube of Vital AF 1.2 PATRICIO @ 20 ml/hr and increase rate as tolerated by 10 ml/hr Q 6-8 hours to goal rate of 40 ml/hr . Water flush with 120 ml Q 6 hours. TF at goal and water flushes will provide 1152 kcal , 72 gm pro and 1259 ml free water per day. Will monitor TF tolerance as established and adjust enteral nutrition support/water flushes as indicated. Lab / Micro Data Attestation: I reviewed the patient's lab results. Result Diagrams: 11/25/22 03:45 11/25/22 03:45 Labs: Laboratory Results - last 24 hr 11/22/22 10:25: JOSIE-1 Antibody <0.2, SS-A/Ro IgG Antibody < 0.2, SS-B/La IgG Antibody < 0.2, Sm (Sepulveda) Antibody <0.2, SALES APPLICATIONS ENGINEER Antibody <0.2, Scl-70 Scleroderma Ab <0.2, Double Strand DNA Ab 2, Centromere B Antibody <0.2 11/22/22 12:40: Fl Pathologist Comment Reviewed 11/24/22 09:55: APTT 77.6 H 11/24/22 16:45: APTT 48.6 H 11/25/22 00:15: APTT 63.7 H 11/25/22 03:45: WBC 24.0 H, RBC 4.12 L, Hgb 9.3 L, Hct 30.1 L, MCV 73.1 L, MCH 22.6 L, MCHC 30.9 L, RDW Std Deviation 72.9 H, RDW Coeff of Angie 28.6 H, Plt Count 424, MPV 10.9, Immature Gran % (Auto) 1.800 H, Neut % (Auto) 92.7 H, Lymph % (Auto) 1.4 L, Meagher % (Auto) 3.8, Eos % (Auto) 0.0, Baso % (Auto) 0.3, Absolute Neuts (auto) 22.2 H, Absolute Lymphs (auto) 0.33 L, Nucleated RBC % 0.3, Anisocytosis 2+, Microcytosis 2+ 11/25/22 03:45: Sodium 140, Potassium 4.0, Chloride 109 H, Carbon Dioxide 27.0, Anion Gap 4 L, BUN 35 H, Creatinine 0.49 L, Estim Creat Clear Calc 81.31, Est GFR (MDRD) Af Amer 163, Est GFR (MDRD) Non-Af 135, BUN/Creatinine Ratio 71.6 H, Glucose 145 H, Calcium 8.9, Total Bilirubin 0.30, AST 422 H, ALT 378 H, Alkaline Phosphatase 229 H, Total Protein 6.1 L, Albumin 1.6 L, Globulin 4.5 H, Albumin/Globulin Ratio 0.4 L 11/25/22 06:00: APTT 55.8 H Micro: Microbiology 11/22/22 12:40 Wash - Bronchial Wash Gram Stain - Final 11/22/22 12:40 Wash - Bronchial Wash Respiratory Culture - Final Culture exhibits no growth. 11/22/22 12:40 Wash - Bronchial Wash Gram Stain - Final 11/22/22 12:40 Wash - Bronchial Wash Respiratory Culture - Final Culture exhibits no growth. 11/20/22 15:55 Sputum, Expectorated/Coughed Gram Stain - Final 11/20/22 15:55 Sputum, Expectorated/Coughed Respiratory Culture - Final Streptococcus pneumoniae 11/21/22 16:35 Sputum, Induced/Lukens Gram Stain - Final 11/21/22 16:35 Sputum, Induced/Lukens Respiratory Culture - Final Presumptive C albicans 11/20/22 14:00 Blood Culture (Wb) - Anticubital Left Bacteria Detection (PCR) - Final Streptococcus pneumoniae 11/20/22 14:00 Blood Culture (Wb) - Anticubital Left Blood Culture - Final Alpha hemolytic organism 11/20/22 13:55 Blood Culture (Wb) - Anticubital Right Blood Culture - Final Streptococcus pneumoniae 11/20/22 13:50 Urine Catheter - Catheter Urine Culture - Final Culture exhibits no growth. 11/20/22 14:57 Mucosa - Nasopharyngeal Influenza Types A,B Direct FA (SAMANTHA) - Final 11/20/22 13:50 Urine Catheter - Catheter Legionella Antigen - Final 11/20/22 13:50 Urine Catheter - Catheter Streptococcus pneumoniae Antigen (M - Final Radiography Diagnostic Testing: Radiology Impression Chest X-Ray 11/24/22 05:12 IMPRESSION: The tip of the endotracheal tube is at the level of the kun. This should be withdrawn approximately 2 cm. Improved aeration of both lungs with residual pleural-parenchymal changes seen at the lung bases. Electronically Signed: Bert Hirsch MD at 9:59 EDT , Chest X-Ray 11/25/22 05:55 IMPRESSION: Moderate pleural effusions and patchy bilateral airspace disease. Findings likely indicate pneumonia. Electronically Signed: Gee Gilliland MD at 7:08 EDT , Rhythm Strip Rhythm Strip: Sinus Tach Rate: 109 Physical Exam Const Constitutional Narrative: Intubated, sedated and mechanically ventilated. No ventilator dyssynchrony. HEENT normocephalic and head/scalp atraumatic Mouth: endotracheal tube in place and OG tube in place Eyes PERRL and EOMs intact bilaterally Neck supple General: trachea midline Chest inspection of chest normal Resp normal respiratory effort Auscultation: diminished lung sounds; Negative for rales, rhonchi or wheezes Cardio regular rhythm, S1 normal heart sound and S2 normal heart sound Cardio Narrative: Currently in normal sinus rhythm GI normal to inspection, nondistended, normoactive bowel sounds Extremity no clubbing, cyanosis or edema Skin no rashes or lesions noted Neuro Neuro Narrative: Alert and able to follow simple commands. Sensorium / Orientation: sedated on vent Charges/Coding Procedures Hospitalists Procedures: 15535 Critial Care 1st Hr
--- NOTE | 2022-11-25 08:43 | US_ITS ---
STUDY: ABDOMINAL ULTRASOUND - RIGHT UPPER QUADRANT REASON FOR VISIT: Female, 67 years old Transaminitis -- TECHNIQUE: Ultrasound evaluation of the right upper quadrant was performed with real-time and static lebron-scale imaging. TECHNICAL QUALITY: Adequate. COMPARISON: None. FINDINGS: Liver: The liver measures 15.7 cm. There is normal echogenicity of the liver. The bile ducts are within normal limits. There is hepatic color flow. The direction of portal flow is hepatopetal. There is no demonstrated mass lesion. Gallbladder: Normal distended gallbladder. The gallbladder wall measures 3 mm. There is a negative sonographic Ashby''s sign. There is pericholecystic fluid. Sludge is seen within the gallbladder lumen. Common Bile Duct (C.B.D.): The common bile duct measures 4 mm. Pancreas: Normal size of the head, body and tail of the pancreas. There is normal echogenicity of the pancreas. There is no demonstrated pancreatic mass or cyst. Right Kidney: Normal size of the right kidney. The right kidney measures 9.4 cm x 4.7 cm x 3.7 cm. Normal renal cortex. The right cortex measures 1.4 cm. There is no demonstrated renal mass or cyst. There is no right hydronephrosis. Incidental note is made of a right pleural effusion. US/Liver IMPRESSION: Small amount of pericholecystic fluid. Sludge is seen within the gallbladder lumen. Electronically Signed: Bert Hirsch MD at 8:19 EDT ,
[2022-11-25] MEDS: CHLORHEXIDINE GLUC 2% CLOTH 1 EACH TOWELETTE TOPICAL (09:25)
[2022-11-25] MEDS: Furosemide 20 MG/2 ML VIAL IV ×2 (09:25→17:50)
[2022-11-25 09:39] LABS: QNTIFERON TB Positive Criteria Indeterminate (Negative)
[2022-11-25 09:48] LABS: GGTP 248 U/L (5-55)
[2022-11-26] VITALS (39 sets, daily range): BP systolic 77–122; BP diastolic 52–82; PULSE 51–84; RESP 18–23; TEMP 36.9–37.4; O2SAT 91–97; BMI 21.3
--- NOTE | 2022-11-26 | IMM_PTH ---
PATIENT: LOUISE ROSALSE LOC: [facility] U#:[id number] AGE/SX: 67/F ROOM: [facility] RE11/20/[address]: Dr. Juana Cerda MD : 1955 BED: 1 DIS: 12/12/2022 SPEC #: [id number] RECD: 11/30/22 13:32 STATUS: ASTRID REQ #: [id number] ANDRE: 11/26/22 00:[address]: Darrin Meredith DEPT: IMMUNOHISTOCHEMISTRY RECD BY: Faith Ybarra ENTERED: 11/30/22 13:33 SP TYPE: IMMUNO OTHR DR: MD Dr. Navi Villegas MD Dr. Mark Elderbrock, MD Dr. Mark Tereletsky, DO Dr. Nicholas F Kotsonis, MD Dr. Prakash Chand, MD Dr. Tanmay Panchabhai, MD Christina Muller, ASSISTANT FOREMAN-C Tissues: THORACIC FLUID Procedures: Supa Ret (add) CK20 (add) CK5-6 (add) CK7 (add) Pankeratin (initial) P40 (add) CD68 (ADD) PHYSICIAN & [place] [id number] SPECIMEN INFORMATION: Tissue Source: Thoracentesis fluid Clinical Info: Pleural effusion Specimen Number: [id number] CPT code: 46678, 01873 x6 METHODOLOGY: Deparaffinized sections of prefer/formalin-fixed tissue or PAP/DQ stained slides are incubated with monoclonal/polyclonal antibodies/oligonucleotide probes. Localization is made via biotin free immunoperoxidase method. Appropriate controls are performed and reacted as expected. Results on target cell population are indicated in the following table: RESULTS: ANTIBODY / CLONE RESULT AE1-3 (AE1/AE3/PCK26) positive CK7 (OV-TL12/30) positive CK20 (KS20.8) negative CD68 (KP-1) positive CALRET (polyclonal) positive CK5-6 (D5 & 1684) positive P40 (BC28) negative These tests were developed and their performance characteristics determined by [facility]. They may not have been cleared or approved by the U.S. Food and Drug Administration. The FDA has determined that such clearance or approval is not necessary. The above immunohistochemical/dualISH markers are ordered and reviewed by the Pathologist. INTERPRETATION: Thoracentesis fluid (cell block): No evidence of malignancy. AM:shari 12/01/2022
--- NOTE | 2022-11-26 | FLU_PTH ---
PATIENT: LOUISE ROSALES LOC: [facility] U#:[id number] AGE/SX: 67/F ROOM: [facility] RE11/20/[address]: Dr. Juana Cerda MD : 1955 BED: 1 DIS: 12/12/2022 SPEC #: [id number] RECD: 11/27/22 08:15 STATUS: SOUOlman REQ #: [id number] ANDRE: 11/26/22 00:[address]: Darrin Meredith DEPT: CYTOLOGY RECD BY: Stan Schneider ENTERED: 11/27/22 08:16 SP TYPE: Fluid OTHR DR: MD Dr. Darrin Villegas, DO MD Dr. Atul Arnett MD Dr. Mark Tereletsky, DO MD Dr. Adrian Corbett MD Dr. Tanmay Panchabhai, MD Christina Muller, COMMERCIAL SERVICE TECHNICIAN-C Tissues: THORACIC FLUID Procedures: Special Stain Group II Surgery Specimen Level IV Cytospin Fluid Comments: @ Ordering doctor for SSII edited from to [email or web address] Lux by LYNETTE at 11/27/221336 @ Ordering doctor for SUIV edited from to [email or web address] Lux by LYNETTE at 11/27/221336 @ Ordering doctor for CYSPIN edited from to [email or web address] Lux by LYNETTE at 11/27/221336 @ Submitting doctor edited from to [email or web address] Maci OJEDA at 11/27/221336 HEADER OPERATION: Thoracentesis PRE-OP DIAGNOSIS: Pleural effusion TISSUE SUBMITTED: Thoracentesis fluid for cytology DIAGNOSIS CYTOLOGY Thoracentesis fluid for cytology (cytospin and cell block): Negative for malignant cells. See comment. AM:shari 11/30/2022 COMMENT Immunohistochemistry ([id number]) supports the above diagnosis. CYTOLOGY STUDY Slides are reviewed. CYTOLOGY GROSS Received is 80 ml of yellow cloudy fluid labeled with the patient's name and and designated per the requisition as thoracentesis. Submitted for cytology preparation including cell block. / shari 11/27/2022 TC:5 CPT: 66848, 26336
[2022-11-26] MEDS: Levothyroxine 88 MCG Tablet GT (05:33)
--- NOTE | 2022-11-26 05:55 | RAD_ITS ---
INDICATION: acute respiratory failure with hypoxemia EXAMINATION/TECHNIQUE: X-RAY - XR Chest 1 View COMPARISON: November 25, 2022 FINDINGS: LINES/DEVICES: Endotracheal tube in place terminating 1.4 cm above the kun. There is a left-sided central venous catheter in place terminating within the expected region of the superior vena cava. There is an enteric tube in place terminating within the gastric fundus. LUNGS: There are stable bilateral pleural effusions, left greater than right. There is a round opacity within the left upper lung. MEDIASTINUM AND CARDIOVASCULAR STRUCTURES: Cardiac silhouette not enlarged. Central airways and mediastinal contour are unremarkable. BONES AND SOFT TISSUES: Unremarkable. RAD/Chest 1 View (Portable) IMPRESSION: Stable bilateral pleural effusions, left greater than right, cannot exclude associated bibasilar consolidation Indeterminate opacity within the left upper lung which may be secondary to a confluence of shadows however cannot exclude focal consolidation. Electronically Signed: Wanda Chavez MD at 13:43 EDT ,
[2022-11-26 06:08] LABS: Absolute Lymphocyte Count 0.31 X10^3/uL (0.83-4.51); Absolute Neutrophil Count 16.2 X10^3/uL (2.0-7.7); Basophil# 0.04 X10^3/uL; Basophil% 0.2 % (0-1); Eosinophil# 0.01 X10^3/uL; Eosinophils% 0.1 % (0-5); Hematocrit 26.6 % (37-47); Hemoglobin 8.5 g/dL (12.0-15.0); Lymphocyte # 0.31 X10^3/ul (0.83-4.51); Lymphocyte % 1.8 % (19-41); Mean Corpuscular Hgb 22.8 pg (27.0-32.0); Mean Corpuscular Volume 71.3 fL (81-99); Mean Platelet Vol. 11.1 fl (6.2-12.0); Monocyte# 0.88 X10^3/uL; NRBC Flagged by Analyzer 0.3 % (0-5); Neutrophil # 16.23 X10^3/uL (2.7-7.7); Neutrophil % 91.6 % (47-70); POSITIVE DIFFERENTIAL YES; POSITIVE MORPHOLOGY YES; Platelet Count 381 K/mm3 (150-450); RBC Distribution Width CV 28.6 % (11.6-14.6); RBC Distribution Width SD 70.5 fl (35.1-43.9); Red Blood Count 3.73 M/mm3 (4.2-5.4); White Blood Count 17.7 K/mm3 (4.4-11.0)
[2022-11-26 06:16] LABS: Differential Indicated SCAN CRITERIA MET
[2022-11-26 06:23] LABS: Platelet Estimate ADEQUATE (ADEQ)
[2022-11-26 06:24] LABS: Anisocytosis 2+
--- NOTE | 2022-11-26 06:43 | PN.CC_ITS ---
Assessment & Plan Assessment/Plan (1) Acute and chronic respiratory failure with hypoxia: PLAN: Plan RECOMMENDATIONS: 1. Continue assist-control mode of mechanical ventilation. Wean FiO2 and PEEP for saturations greater than 90%. 2. Continue amiodarone. 3. Continue scheduled Atrovent aerosols. 4. Continue Solu-Medrol to 40 mg once daily. 5. Plan to proceed with thoracentesis to facilitate weaning from invasive mechanical ventilatory support. 6. Continue bowel regimen and restart trophic tube feeds. 7. Continue heparin infusion as ordered. 8. Continue PPI therapy. 9. Electrolyte repletion as ordered. IMPRESSIONS: 1. Acute on chronic hypoxemic respiratory failure The patient has a known history of underlying bronchiectasis and recurrent pleural effusion, which according to documentation, was previously felt to be cardiac in etiology. The patient did undergo a VATS and pleurodesis on the right and in 2019 had a Pleurx catheter on the left side in 2019. There has been discussion in the past about the patient proceeding with thoracic surgery evaluation for left-sided pleural intervention. However, the patient has declined to pursue the work-up. The patient does appear on chest imaging to have bilateral pleural effusions, left greater than right, which appears loculated and chronic in appearance. The patient will be continued on assist control mode mechanical ventilation, with plans to wean FiO2 and PEEP to maintain oxygen saturations at or above 90%. Plan to continue empiric broad- spectrum antimicrobials. Ultimately, I do not feel that the patient requires any emergent intervention regarding her pleural space, as this is a chronic finding. If needed, the patient could be considered for an ultrasound-guided thoracentesis on the left if it meant assisting in weaning from invasive mechanical ventilatory support. The patient will require aggressive bronchopulmonary hygiene following extubation given her cachexia and generalized deconditioning. I do suspect that her acute decompensation during this hospitalization was likely secondary to mucous plugging coupled with atrial fibrillation with RVR and hypervolemia. Ultimately, the patient would benefit from diuresis once hemodynamic status improves. 2. Septic shock secondary to pneumococcal bacteremia/pneumonia Improved. Continue antimicrobials as ordered. The patient has been weaned from Levophed and at the present time is hemodynamically stable. 3. Paroxysmal atrial fibrillation Plan to continue amiodarone as ordered. Plan to restart beta-guzman regimen once hemodynamic status stabilizes. 4. Subsegmental PE with RV dysfunction and pulmonary hypertension Continue systemic anticoagulation with heparin as ordered. The patient will require eventual diuresis once her hemodynamic status has improved. 5. COPD with chronic bronchitis Continue scheduled Atrovent aerosols. Continue IV steroids 40 mg daily. 6. Pulmonary cachexia/hypothyroidism/GERD Complicates care, management, recovery and prognosis. Continue supportive measures as noted above including tube feeds as tolerated. TIME: 31 minutes of critical care time, independent of procedures, was spent addressing the patient's acute on chronic hypoxemic respiratory failure, septic shock, paroxysmal atrial fibrillation, COPD, review of all data and collaboration with the care team. Subjective Subjective The patient was seen and examined at the bedside this morning. Events from the last 24 hours have been reviewed. The patient is currently afebrile and hemodynamically stable on assist control mode of mechanical ventilation with an FiO2 requirement of 55% and PEEP of 5. The patient remains on amiodarone and fentanyl. Nursing staff did report that the patient had a witnessed large-volume emesis event overnight. She is documented to be overall net +6.8 L for the hospitalization. Potassium is low this morning at 3.3 with a normal creatinine. Phosphorus was low at 1.7. AST, ALT and alkaline phosphatase are slowly improving. Objective Data Objective Data The patient's most recent lab work, culture data and imaging studies have all been personally reviewed. Surface echocardiogram from November 23, 2022 demonstrated an ejection fraction of 70% with a severely dilated RV and moderate global RV systolic dysfunction. Pulmonary artery systolic pressure was estimated to be 55 to 60 mmHg. Blood cultures dated November 20 were positive for Streptococcus pneumonia. Vital Signs: Vital Signs Temp Pulse Resp BP Pulse Ox O2 Del Method O2 Flow Rate 98.6 F 76 19 H 77/52 L 91 Mechanical Ventilator 15 11/26/22 00:00 11/26/22 04:30 11/26/22 04:30 11/26/22 01:00 11/26/22 04:30 11/26/22 04:00 11/20/22 16:00 FiO2 65 11/26/22 04:30 Oxygen Flow Rate (L/min) 15 Oxygen Delivery Method Mechanical Ventilator Weight: 102 lb 1.184 oz Body Mass Index (BMI) 21.3 Intake & Output: Intake and Output for Last 24 Hours 11/24/22 11/25/22 11/26/22 23:59 23:59 23:59 Intake Total 2149.94 / 2521.81 1713.40 / 1735.10 183.40 / 183.40 Output Total 675 / 675 2800 / 2800 250 / 250 Balance 1474.94 / 1846.81 -1086.60 / -1064.90 -66.60 / -66.60 Medical Nutrition Assessment Dietitian: Malnutrition Criteria Met Start: 11/20/22 11:25 Freq: Status: Active Protocol: Document 11/25/22 09:50 AG (Rec: 11/25/22 09:50 AG [id number]) Nutrition Malnutrition Evidence of Malnutrition Exists Yes Malnutrition (severe): Chronic Evidenced By Suboptimal Energy Intake ( Severe),Weight Loss (Severe), Physical Changes (Moderate) Intake Problem Inadequate Oral Intake Etiology related to increased oxygen needs/intubated state Signs/Symptoms as evidenced by NPO Status Resolved Problem Clinical Problem Chronic Disease or Condition Related Malnutrition Etiology Severe protein-calorie malnutrition in the context of chronic disease related to inadequate oral/energy intake Signs/Symptoms as evidenced by estimated PO intake 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 Continue via OGT- Vital AF 1.2 @ 20 ml/ hr and increase rate as tolerated by 10 ml/hr every 6- 8 hours to goal rate of 40 ml/ hr. Water flush with 120 ml every 6 hours. TF at goal rate will provide 1152 calories, 72 g protein and 1259 ml water per day. Lab / Micro Data Attestation: I reviewed the patient's lab results. Result Diagrams: 11/26/22 03:25 11/26/22 06:50 Labs: Laboratory Results - last 24 hr 11/20/22 18:20: TB Test (QFT) Nil 0, TB Test (QFT) Mitogen 0.28, TB Test (QFT) Ag 1 0, TB Test (QFT) Ag 2 0, TB Test (QFT) Comment, TB Positive Criteria Indeterminate H 11/25/22 09:00: GGT 248 H 11/26/22 03:25: WBC 17.7 H, RBC 3.73 L, Hgb 8.5 L, Hct 26.6 L, MCV 71.3 L, MCH 22.8 L, MCHC 32.0, RDW Std Deviation 70.5 H, RDW Coeff of Angie 28.6 H, Plt Count 381, MPV 11.1, Immature Gran % (Auto) 1.300 H, Neut % (Auto) 91.6 H, Lymph % (Auto) 1.8 L, [place] % (Auto) 5.0, Eos % (Auto) 0.1, Baso % (Auto) 0.2, Absolute Neuts (auto) 16.2 H, Absolute Lymphs (auto) 0.31 L, Nucleated RBC % 0.3, Platelet Estimate ADEQUATE, Poikilocytosis , Anisocytosis 2+ Micro: Microbiology 11/22/22 12:40 Wash - Bronchial Wash Gram Stain - Final 11/22/22 12:40 Wash - Bronchial Wash Respiratory Culture - Final Culture exhibits no growth. 11/22/22 12:40 Wash - Bronchial Wash Gram Stain - Final 11/22/22 12:40 Wash - Bronchial Wash Respiratory Culture - Final Culture exhibits no growth. 11/20/22 15:55 Sputum, Expectorated/Coughed Gram Stain - Final 11/20/22 15:55 Sputum, Expectorated/Coughed Respiratory Culture - Final Streptococcus pneumoniae 11/21/22 16:35 Sputum, Induced/Lukens Gram Stain - Final 11/21/22 16:35 Sputum, Induced/Lukens Respiratory Culture - Final Presumptive C albicans 11/20/22 14:00 Blood Culture (Wb) - Anticubital Left Bacteria Detection (PCR) - Final Streptococcus pneumoniae 11/20/22 14:00 Blood Culture (Wb) - Anticubital Left Blood Culture - Final Alpha hemolytic organism 11/20/22 13:55 Blood Culture (Wb) - Anticubital Right Blood Culture - Final Streptococcus pneumoniae 11/20/22 13:50 Urine Catheter - Catheter Urine Culture - Final Culture exhibits no growth. 11/20/22 14:57 Mucosa - Nasopharyngeal Influenza Types A,B Direct FA (SAMANTHA) - Final 11/20/22 13:50 Urine Catheter - Catheter Legionella Antigen - Final 11/20/22 13:50 Urine Catheter - Catheter Streptococcus pneumoniae Antigen (M - Final Radiography Diagnostic Testing: Radiology Impression Chest X-Ray 11/25/22 05:55 IMPRESSION: Moderate pleural effusions and patchy bilateral airspace disease. Findings likely indicate pneumonia. Electronically Signed: Gee Gilliland MD at 7:08 EDT , Rhythm Strip Rhythm Strip: Sinus Tach Rate: 109 Physical Exam Const Constitutional Narrative: Intubated, minimally sedated and mechanically ventilated. No ventilator dyssynchrony. HEENT normocephalic and head/scalp atraumatic Mouth: endotracheal tube in place and OG tube in place Eyes PERRL and EOMs intact bilaterally Neck supple General: trachea midline Chest inspection of chest normal Resp normal respiratory effort Auscultation: diminished lung sounds; Negative for rales, rhonchi or wheezes Cardio regular rhythm, S1 normal heart sound and S2 normal heart sound Cardio Narrative: Currently in normal sinus rhythm GI normal to inspection, nondistended, normoactive bowel sounds Extremity no clubbing, cyanosis or edema Skin no rashes or lesions noted Neuro Neuro Narrative: Alert and able to follow simple commands. Sensorium / Orientation: sedated on vent Charges/Coding Procedures Hospitalists Procedures: 06628 Critial Care 1st Hr
--- NOTE | 2022-11-26 06:47 | US_ITS ---
PROCEDURE: ULTRASOUND GUIDED THORACENTESIS. DATE: November 26, 2022.. INDICATION: Female, 67 years old. Right pleural effusion. PHYSICIAN: Bert Hirsch M.D. PROCEDURE: The risks, benefits, and alternatives to the procedure were explained to the recent. The specific risks of bleeding, infection, and pneumothorax requiring chest tube insertion were discussed and accepted. Written informed consent was obtained. Ultrasonographic evaluation of the right lower pleural space was carried out. An adequate pocket was identified. The patient was placed in the sitting, upright position. The overlying skin was prepped and draped in sterile fashion. 1% lidocaine was administered subcutaneously for local anesthesia. Under ultrasound guidance, a 5 [place] thoracentesis needle/catheter system was advanced into the right posterior lower pleural fluid collection. Approximately 525 mL of stephen-colored fluid was drained. The catheter was removed, and a sterile dressing was applied. A specimen was collected and sent to the laboratory for analysis, as requested by the referring clinician. The patient tolerated the procedure well. A chest x-ray was ordered. US/Thoracentesis W US IMPRESSION: Ultrasound-guided right thoracentesis. Electronically Signed: Bert Hirsch MD at 14:08 EDT ,
[2022-11-26 07:11] LABS: International Normalized Ratio 1.2; Prothrombin Time (Protime)PT. 14.9 SECONDS (11.7-14.9)
[2022-11-26 07:20] LABS: ALB/GLOB Ratio 0.4 RATIO (0.9-2.4); AST(SGOT) 214 U/L (15-37); Alanine Aminotransfer ALT/SGPT 352 U/L (13-56); Albumin, Serum 1.5 g/dL (3.2-5.0); Alkaline Phosphatase 184 U/L (45-117); Anion Gap 5 (5-15); BUN 36 mg/dL (7-18); BUN/Creat Ratio 72.4 RATIO (10-20); Calcium,Total 8.4 mg/dL (8.5-10.1); Chloride 103 mmol/L (98-107); EST Glomerular Filtration Rate 132 mL/min (>60); Est Glom Filt Rate - Afr Amer 160 mL/min (>60); Estimated Creatinine Clearance 81.99 ml/min; Globulin 4.2 g/dL (2.2-4.2); Glucose 115 mg/dL (74-106); LDH 239 U/L (84-246); Phosphorus 1.7 mg/dL (2.5-4.9); Potassium 3.3 mmol/L (3.5-5.1); Protein, Total 5.7 g/dL (6.4-8.2); Sodium Level 140 mmol/L (136-145)
--- NOTE | 2022-11-26 07:51 | PCM.PN.HOSP ---
Objective Data Objective Data Vital Signs: Vital Signs Temp Pulse Resp BP Pulse Ox O2 Del Method O2 Flow Rate 98.9 F 77 18 101/77 91 Mechanical Ventilator 15 11/26/22 07:00 11/26/22 07:00 11/26/22 07:00 11/26/22 07:00 11/26/22 07:00 11/26/22 07:00 11/20/22 16:00 FiO2 70 11/26/22 07:00 Oxygen Flow Rate (L/min) 15 Oxygen Delivery Method Mechanical Ventilator Weight: 102 lb 1.184 oz Body Mass Index (BMI) 21.3 Intake & Output: Intake and Output for Last 24 Hours 11/25/22 11/26/22 11/27/22 03:59 03:59 03:59 Intake Total 2370.88 / 2403.95 1245.81 / 1245.81 442.83 / 442.83 Output Total 675 / 675 3050 / 3050 0 / 0 Balance 1695.88 / 1728.95 -1804.19 / -1804.19 442.83 / 442.83 Medical Nutrition Assessment Dietitian: Malnutrition Criteria Met Start: 11/20/22 11:25 Freq: Status: Active Protocol: Document 11/25/22 09:50 AG (Rec: 11/25/22 09:50 AG [id number]) Nutrition Malnutrition Evidence of Malnutrition Exists Yes Malnutrition (severe): Chronic Evidenced By Suboptimal Energy Intake ( Severe),Weight Loss (Severe), Physical Changes (Moderate) Intake Problem Inadequate Oral Intake Etiology related to increased oxygen needs/intubated state Signs/Symptoms as evidenced by NPO Status Resolved Problem Clinical Problem Chronic Disease or Condition Related Malnutrition Etiology Severe protein-calorie malnutrition in the context of chronic disease related to inadequate oral/energy intake Signs/Symptoms as evidenced by estimated PO intake meeting <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 Continue via OGT- Vital AF 1.2 @ 20 ml/ hr and increase rate as tolerated by 10 ml/hr every 6- 8 hours to goal rate of 40 ml/ hr. Water flush with 120 ml every 6 hours. TF at goal rate will provide 1152 calories, 72 g protein and 1259 ml water per day. Lab / Micro Data Result Diagrams: 11/26/22 03:25 11/26/22 06:50 Labs: Laboratory Results - last 24 hr 11/20/22 18:20: TB Test (QFT) Nil 0, TB Test (QFT) Mitogen 0.28, TB Test (QFT) Ag 1 0, TB Test (QFT) Ag 2 0, TB Test (QFT) Comment, TB Positive Criteria Indeterminate H 11/25/22 09:00: GGT 248 H 11/26/22 03:25: WBC 17.7 H, RBC 3.73 L, Hgb 8.5 L, Hct 26.6 L, MCV 71.3 L, MCH 22.8 L, MCHC 32.0, RDW Std Deviation 70.5 H, RDW Coeff of Angie 28.6 H, Plt Count 381, MPV 11.1, Immature Gran % (Auto) 1.300 H, Neut % (Auto) 91.6 H, Lymph % (Auto) 1.8 L, [place] % (Auto) 5.0, Eos % (Auto) 0.1, Baso % (Auto) 0.2, Absolute Neuts (auto) 16.2 H, Absolute Lymphs (auto) 0.31 L, Nucleated RBC % 0.3, Platelet Estimate ADEQUATE, Poikilocytosis , Anisocytosis 2+ 11/26/22 06:50: Sodium 140, Potassium 3.3 L, Chloride 103, Carbon Dioxide 32.0, Anion Gap 5, BUN 36 H, Creatinine 0.50 L, Estim Creat Clear Calc 81.99, Est GFR (MDRD) Af Amer 160, Est GFR (MDRD) Non-Af 132, BUN/Creatinine Ratio 72.4 H, Glucose 115 H, Calcium 8.4 L, Phosphorus 1.7 L, Magnesium 2.0, Total Bilirubin 0.40, AST 214 H, ALT 352 H, Alkaline Phosphatase 184 H, Lactate Dehydrogenase 239, Total Protein 5.7 L, Albumin 1.5 L, Globulin 4.2, Albumin/Globulin Ratio 0.4 L 11/26/22 06:50: PT 14.9, INR 1.2 Micro: Microbiology 11/22/22 12:40 Wash - Bronchial Wash Gram Stain - Final 11/22/22 12:40 Wash - Bronchial Wash Respiratory Culture - Final Culture exhibits no growth. 11/22/22 12:40 Wash - Bronchial Wash Gram Stain - Final 11/22/22 12:40 Wash - Bronchial Wash Respiratory Culture - Final Culture exhibits no growth. 11/20/22 15:55 Sputum, Expectorated/Coughed Gram Stain - Final 11/20/22 15:55 Sputum, Expectorated/Coughed Respiratory Culture - Final Streptococcus pneumoniae 11/21/22 16:35 Sputum, Induced/Lukens Gram Stain - Final 11/21/22 16:35 Sputum, Induced/Lukens Respiratory Culture - Final Presumptive C albicans 11/20/22 14:00 Blood Culture (Wb) - Anticubital Left Bacteria Detection (PCR) - Final Streptococcus pneumoniae 11/20/22 14:00 Blood Culture (Wb) - Anticubital Left Blood Culture - Final Alpha hemolytic organism 11/20/22 13:55 Blood Culture (Wb) - Anticubital Right Blood Culture - Final Streptococcus pneumoniae 11/20/22 13:50 Urine Catheter - Catheter Urine Culture - Final Culture exhibits no growth. 11/20/22 14:57 Mucosa - Nasopharyngeal Influenza Types A,B Direct FA (SAMANTHA) - Final 11/20/22 13:50 Urine Catheter - Catheter Legionella Antigen - Final 11/20/22 13:50 Urine Catheter - Catheter Streptococcus pneumoniae Antigen (M - Final Rhythm Strip Rhythm Strip: Sinus Tach Rate: 109
--- NOTE | 2022-11-26 08:06 | PN.HOSP_ITS ---
Subjective Subjective Remains intubated but sedation is off, she does open her eyes but she is unable to focus. No issues overnight Objective Data Objective Data Vital Signs: Vital Signs Temp Pulse Resp BP Pulse Ox O2 Del Method O2 Flow Rate 98.9 F 77 18 101/77 91 Mechanical Ventilator 15 11/26/22 07:00 11/26/22 07:00 11/26/22 07:00 11/26/22 07:00 11/26/22 07:00 11/26/22 07:00 11/20/22 16:00 FiO2 70 11/26/22 07:00 Oxygen Flow Rate (L/min) 15 Oxygen Delivery Method Mechanical Ventilator Weight: 102 lb 1.184 oz Body Mass Index (BMI) 21.3 Intake & Output: Intake and Output for Last 24 Hours 11/25/22 11/26/22 11/27/22 03:59 03:59 03:59 Intake Total 2370.88 / 2403.95 1245.81 / 1245.81 442.83 / 442.83 Output Total 675 / 675 3050 / 3050 0 / 0 Balance 1695.88 / 1728.95 -1804.19 / -1804.19 442.83 / 442.83 Medical Nutrition Assessment Dietitian: Malnutrition Criteria Met Start: 11/20/22 11:25 Freq: Status: Active Protocol: Document 11/25/22 09:50 AG (Rec: 11/25/22 09:50 AG [id number]) Nutrition Malnutrition Evidence of Malnutrition Exists Yes Malnutrition (severe): Chronic Evidenced By Suboptimal Energy Intake ( Severe),Weight Loss (Severe), Physical Changes (Moderate) Intake Problem Inadequate Oral Intake Etiology related to increased oxygen needs/intubated state Signs/Symptoms as evidenced by NPO Status Resolved Problem Clinical Problem Chronic Disease or Condition Related Malnutrition Etiology Severe protein-calorie malnutrition in the context of chronic disease related to inadequate oral/energy intake Signs/Symptoms as evidenced by estimated PO intake meeting <50% of 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 Continue via OGT- Vital AF 1.2 @ 20 ml/ hr and increase rate as tolerated by 10 ml/hr every 6- 8 hours to goal rate of 40 ml/ hr. Water flush with 120 ml every 6 hours. TF at goal rate will provide 1152 calories, 72 g protein and 1259 ml water per day. Lab / Micro Data Result Diagrams: 11/26/22 03:25 11/26/22 06:50 Labs: Laboratory Results - last 24 hr 11/20/22 18:20: TB Test (QFT) Nil 0, TB Test (QFT) Mitogen 0.28, TB Test (QFT) Ag 1 0, TB Test (QFT) Ag 2 0, TB Test (QFT) Comment, TB Positive Criteria Indeterminate H 11/25/22 09:00: GGT 248 H 11/26/22 03:25: WBC 17.7 H, RBC 3.73 L, Hgb 8.5 L, Hct 26.6 L, MCV 71.3 L, MCH 22.8 L, MCHC 32.0, RDW Std Deviation 70.5 H, RDW Coeff of Angie 28.6 H, Plt Count 381, MPV 11.1, Immature Gran % (Auto) 1.300 H, Neut % (Auto) 91.6 H, Lymph % (Auto) 1.8 L, [place] % (Auto) 5.0, Eos % (Auto) 0.1, Baso % (Auto) 0.2, Absolute Neuts (auto) 16.2 H, Absolute Lymphs (auto) 0.31 L, Nucleated RBC % 0.3, Platelet Estimate ADEQUATE, Poikilocytosis , Anisocytosis 2+ 11/26/22 06:50: Sodium 140, Potassium 3.3 L, Chloride 103, Carbon Dioxide 32.0, Anion Gap 5, BUN 36 H, Creatinine 0.50 L, Estim Creat Clear Calc 81.99, Est GFR (MDRD) Af Amer 160, Est GFR (MDRD) Non-Af 132, BUN/Creatinine Ratio 72.4 H, Glucose 115 H, Calcium 8.4 L, Phosphorus 1.7 L, Magnesium 2.0, Total Bilirubin 0.40, AST 214 H, ALT 352 H, Alkaline Phosphatase 184 H, Lactate Dehydrogenase 239, Total Protein 5.7 L, Albumin 1.5 L, Globulin 4.2, Albumin/Globulin Ratio 0.4 L 11/26/22 06:50: PT 14.9, INR 1.2 Micro: Microbiology 11/22/22 12:40 Wash - Bronchial Wash Gram Stain - Final 11/22/22 12:40 Wash - Bronchial Wash Respiratory Culture - Final Culture exhibits no growth. 11/22/22 12:40 Wash - Bronchial Wash Gram Stain - Final 11/22/22 12:40 Wash - Bronchial Wash Respiratory Culture - Final Culture exhibits no growth. 11/20/22 15:55 Sputum, Expectorated/Coughed Gram Stain - Final 11/20/22 15:55 Sputum, Expectorated/Coughed Respiratory Culture - Final Streptococcus pneumoniae 11/21/22 16:35 Sputum, Induced/Lukens Gram Stain - Final 11/21/22 16:35 Sputum, Induced/Lukens Respiratory Culture - Final Presumptive C albicans 11/20/22 14:00 Blood Culture (Wb) - Anticubital Left Bacteria Detection (PCR) - Final Streptococcus pneumoniae 11/20/22 14:00 Blood Culture (Wb) - Anticubital Left Blood Culture - Final Alpha hemolytic organism 11/20/22 13:55 Blood Culture (Wb) - Anticubital Right Blood Culture - Final Streptococcus pneumoniae 11/20/22 13:50 Urine Catheter - Catheter Urine Culture - Final Culture exhibits no growth. 11/20/22 14:57 Mucosa - Nasopharyngeal Influenza Types A,B Direct FA (SAMANTHA) - Final 11/20/22 13:50 Urine Catheter - Catheter Legionella Antigen - Final 11/20/22 13:50 Urine Catheter - Catheter Streptococcus pneumoniae Antigen (M - Final Rhythm Strip Rhythm Strip: Sinus Tach Rate: 109 Physical Exam Narrative Const General Appearance: intubated and patient mechanically ventilated, she does open her eyes unable to focus HEENT normocephalic Eyes PERRL and conjunctivae normal Neck supple and no JVD Resp normal respiratory effort, no retractions and no use of accessory muscles Auscultation: Negative for crackles, rales, rhonchi or wheezes Cardio regular rate, regular rhythm, S1 normal heart sound, S2 normal heart sound and no murmurs GI soft to palpation and non-distended; Negative for hepatosplenomegaly Extremity no clubbing, cyanosis or edema Skin no rashes or lesions noted Neuro Sensorium / Orientation: sedated on vent Psych Appearance: intubated Assessment & Plan Assessment/Plan (1) Acute and chronic respiratory failure with hypoxia: (2) Acute dyspnea: PLAN: Plan 1.? Acute on chronic hypoxic respiratory failure secondary to continued left pleural effusion and community-acquired pneumonia and strep bacteremia with septic versus cardiogenic shock secondary to PEs and right heart strain/COPD ? Blood cultures demonstrates strep pneumonia ? We will continue with broad spectrum antibiotics ? We will initiate diuretics ? Continue with anticoagulation for subsegmental PEs, echo did demonstrate right heart strain ? 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 Continue pressors wean as able ? Continue with treatments and steroids 2.? CAD status post stent/HTN/HLD/chronic diastolic CHF/paroxysmal A-fib ? Can continue with aspirin via G-tube as well as Lipitor ? Blood pressures are stable can continue with the low-dose metoprolol ? Can restart diuretics and continue with amiodarone 3.? Hypothyroidism ? Stable ? Continue with Synthroid 4.? Severe chronic protein calorie malnutrition ? Continue with nutritional evaluation 5.? GERD ? Stable ? Continue with PPI DVT: Heparin drip Charges/Coding Visit Charges Inpatient E&M: 60128 Subs Hosp L2
[2022-11-26] MEDS: Ipratropium 0.5 MG/2.5 ML SOLUTION INHALATION ×4 (08:13→19:56)
[2022-11-26 08:23] LABS: Partial Thromboplast Time 55.2 Seconds (24.1-36.2)
[2022-11-26] MEDS: Potassium Chloride 20mEq/100mL 20 MEQ/100 ML IV.SOLN. 100 MEQ IV BOLUS ×2 (08:46→09:58)
[2022-11-26] MEDS: Chlorhexidine 15 ML PO ×2 (08:56→22:03)
[2022-11-26] MEDS: Polyethylene Glycol 3350 17 GM PACKET GT ×2 (08:56→22:09)
[2022-11-26] MEDS: Senna/Docusate Sodium 1 Tablet 2 TABLET GT ×2 (08:56→22:09)
[2022-11-26] MEDS: Midodrine HCl 5 MG Tablet 10 MG PO ×3 (08:56→18:17)
[2022-11-26] MEDS: 0.9% Saline Lock 10 ML Syringe IV ×2 (09:18→22:01)
[2022-11-26] MEDS: CHLORHEXIDINE GLUC 2% CLOTH 1 EACH TOWELETTE TOPICAL (10:00)
[2022-11-26] MEDS: Propofol 10MG/Ml 1,000 MG/100 ML Bottle 1.3 MG CONT INF ×2 (10:15→22:08)
[2022-11-26] MEDS: Ondansetron 4 MG/2 ML Vial 2 MG IV (10:24)
[2022-11-26] MEDS: Lidocaine 2% (20 ml mdv) 20 ML Vial INFILT (13:53)
[2022-11-26 13:54] LABS: Cytology, Body Fluid / CSF SEE PATHOLOGY REPORT
--- NOTE | 2022-11-26 14:05 | RAD_ITS ---
STUDY: X-RAY CHEST REASON FOR EXAM: Female, 67 years old. Post thora TECHNIQUE: AP inspiration and expiration views. COMPARISON: Comparison is made with prior study done earlier in the day. FINDINGS: The patient is status post right thoracentesis. There is no evidence of pneumothorax. RAD/Chest Insp/Exp 2 View IMPRESSION: Status post right thoracentesis. There is no evidence of pneumothorax. Electronically Signed: Bert Hirsch MD at 14:23 EDT ,
[2022-11-26 14:31] LABS: Body Fluid Mononuclear WBC # 0.608 10^3/uL; Body Fluid Mononuclear WBC % 91.7 %; Body Fluid Polynuclear WBC # 0.055 10^3/uL; Body Fluid Polynuclear WBC % 8.3 %; Body Fluid Total Cells Counted 0.943 10^3/ul; White Blood Count/Body Fluid 0.663 10^3/uL
[2022-11-26 15:01] LABS: Protein, Body Fluid 2.9 g/dL (Not Establ.)
[2022-11-26 15:21] LABS: Appearance/Body Fluid CLEAR; Auto B Fluid Analyzer BKGD Ct COUNTS W/IN LIMITS (W/IN LIMITS); Color/Body Fluid YELLOW; Red Cell Count/Body Fluid 2574 /mm3; Source- Body Fluid THORACENTESIS
[2022-11-26] MEDS: Vital AF 1.2 Cal Liquid 1,000 ML 10 ML GT (15:50)
[2022-11-26 16:02] LABS: LDH,Body Fluid 149 Units/l (Not Establ.)
[2022-11-26 16:03] LABS: Lymphocytes 45 %; Macrophages 22 %; Mesothelial Cells 5 %; Neutrophil (Segs) 7 %; Other Cell Type/BF 11 %; Plasma Cell/BodyFluid 10 %
[2022-11-26 16:13] LABS: Body Fluid QC Type(s) BF1Q,BF2Q
[2022-11-26 20:53] LABS: Partial Thromboplast Time 57.6 Seconds (24.1-36.2)
[2022-11-26] MEDS: HEPARIN/D5w 25,000 UNITS 25,000 UNITS/250 ML IV.SOLN. 8 UNITS CONT INF (22:02)
[2022-11-27] VITALS (41 sets, daily range): BP systolic 77–166; BP diastolic 53–95; PULSE 50–90; RESP 12–24; TEMP 37.1–37.3; O2SAT 77–98; BMI 21.2
[2022-11-27 02:40] LABS: Absolute Lymphocyte Count 0.48 X10^3/uL (0.83-4.51); Absolute Neutrophil Count 16.2 X10^3/uL (2.0-7.7); Basophil# 0.03 X10^3/uL; Basophil% 0.2 % (0-1); Eosinophil# 0.01 X10^3/uL; Eosinophils% 0.1 % (0-5); Hematocrit 28.5 % (37-47); Lymphocyte # 0.48 X10^3/ul (0.83-4.51); Lymphocyte % 2.7 % (19-41); Mean Corp Hgb Conc 31.6 g/dL (32-36); Mean Corpuscular Hgb 22.5 pg (27.0-32.0); Mean Corpuscular Volume 71.3 fL (81-99); Monocyte# 0.87 X10^3/uL; Monocyte% 4.9 % (0-10); NRBC Flagged by Analyzer 0.2 % (0-5); Neutrophil # 16.17 X10^3/uL (2.7-7.7); Neutrophil % 90.3 % (47-70); POSITIVE DIFFERENTIAL YES; POSITIVE MORPHOLOGY YES; Platelet Count 484 K/mm3 (150-450); RBC Distribution Width CV 29.5 % (11.6-14.6); RBC Distribution Width SD 71.3 fl (35.1-43.9); White Blood Count 17.9 K/mm3 (4.4-11.0)
[2022-11-27 02:53] LABS: Partial Thromboplast Time 63.6 Seconds (24.1-36.2)
[2022-11-27 02:55] LABS: Differential Indicated SCAN CRITERIA MET
[2022-11-27 03:01] LABS: Microcytosis 2+; Platelet Estimate SLT INC (ADEQ)
[2022-11-27 03:03] LABS: Anisocytosis 2+
[2022-11-27 03:04] LABS: Anion Gap 4 (5-15); BUN 34 mg/dL (7-18); BUN/Creat Ratio 70.2 RATIO (10-20); Chloride 103 mmol/L (98-107); Creatinine, Serum 0.48 mg/dL (0.55-1.02); Differential Comment SCANNED; EST Glomerular Filtration Rate 136 mL/min (>60); Est Glom Filt Rate - Afr Amer 165 mL/min (>60); Estimated Creatinine Clearance 85.41 ml/min; Glucose 105 mg/dL (74-106); Potassium 4.3 mmol/L (3.5-5.1); Sodium Level 138 mmol/L (136-145)
[2022-11-27] MEDS: 0.9% Saline Lock 10 ML Syringe IV (06:35)
[2022-11-27] MEDS: Levothyroxine 88 MCG Tablet GT (06:36)
[2022-11-27] MEDS: Ipratropium 0.5 MG/2.5 ML SOLUTION INHALATION ×3 (06:44→19:56)
[2022-11-27] MEDS: Senna/Docusate Sodium 1 Tablet 2 TABLET GT (07:37)
[2022-11-27] MEDS: Midodrine HCl 5 MG Tablet 10 MG PO (07:37)
[2022-11-27] MEDS: Polyethylene Glycol 3350 17 GM PACKET GT (07:38)
[2022-11-27] MEDS: Clopidogrel Bisulfate 75 MG Tablet GT (07:38)
[2022-11-27] MEDS: Aspirin 81 MG TAB.CHEW GT (07:38)
--- NOTE | 2022-11-27 07:38 | PN.HOSP_ITS ---
Reason for Visit Reason for Visit: Diagnoses Chronic obstructive pulmonary disease, unspecified (11/20/22) Bronchiectasis, uncomplicated (11/20/22) Pleural effusion, not elsewhere classified (11/20/22) Acute and chronic respiratory failure with hypoxia (11/20/22) Atelectasis (11/20/22) Dyspnea, unspecified (11/20/22) Cachexia (11/20/22) Presence of coronary angioplasty implant and graft (11/20/22) Dependence on respirator [ventilator] status (11/20/22) Follow-up for respiratory failure, shock probably septic shock or cardiogenic shock from strep pneumoniae pneumonia with bacteremia Objective Data Objective Data Vital Signs: Vital Signs Temp Pulse Resp BP Pulse Ox O2 Del Method O2 Flow Rate 99 F 80 15 89/59 L 93 Mechanical Ventilator 15 11/27/22 06:00 11/27/22 06:45 11/27/22 06:45 11/27/22 06:00 11/27/22 06:45 11/27/22 06:00 11/20/22 16:00 FiO2 40 11/27/22 06:00 Oxygen Flow Rate (L/min) 15 Oxygen Delivery Method Mechanical Ventilator Weight: 101 lb 10.13 oz Body Mass Index (BMI) 21.2 Intake & Output: Intake and Output for Last 24 Hours 11/25/22 11/26/22 11/27/22 23:59 23:59 23:59 Intake Total 1713.40 / 1735.10 2321.09 / 2576.19 907.35 / 907.35 Output Total 2800 / 2800 510 / 660 300 / 300 Balance -1086.60 / -1064.90 1811.09 / 1916.19 607.35 / 607.35 Medical Nutrition Assessment Dietitian: Malnutrition Criteria Met Start: 11/20/22 11:25 Freq: Status: Active Protocol: Document 11/25/22 09:50 AG (Rec: 11/25/22 09:50 AG [id number]) Nutrition Malnutrition Evidence of Malnutrition Exists Yes Malnutrition (severe): Chronic Evidenced By Suboptimal Energy Intake ( Severe),Weight Loss (Severe), Physical Changes (Moderate) Intake Problem Inadequate Oral Intake Etiology related to increased oxygen needs/intubated state Signs/Symptoms as evidenced by NPO Status Resolved Problem Clinical Problem Chronic Disease or Condition Related Malnutrition Etiology Severe protein-calorie malnutrition in the context of chronic disease related to inadequate oral/energy intake Signs/Symptoms as evidenced by estimated PO intake 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 Continue via OGT- Vital AF 1.2 @ 20 ml/ hr and increase rate as tolerated by 10 ml/hr every 6- 8 hours to goal rate of 40 ml/ hr. Water flush with 120 ml every 6 hours. TF at goal rate will provide 1152 calories, 72 g protein and 1259 ml water per day. Lab / Micro Data Result Diagrams: 11/27/22 02:30 11/27/22 02:30 Labs: Laboratory Results - last 24 hr 11/26/22 03:25: APTT 55.2 H 11/26/22 13:52: Fluid Total Protein 2.9 11/26/22 13:52: Fluid Glucose TNP, Fluid LDH 149 11/26/22 13:52: Fluid Source THORACENTESIS, Fluid Color YELLOW, Fluid Appearance CLEAR, Fluid WBC 0.663, Fluid RBC 2574, Fluid Tot Cell Count 0.943 H, Fld Polynuclear WBCs # 0.055, Fld Polynuclear WBCs % 8.3, Fluid Mononuclear WBCs 0.608, Fld Mononuclear WBCs % 91.7, Fluid Neutrophils 7, Fluid Lymphocytes 45, Fluid Plasma Cells 10, Fluid Macrophages 22, Fld Mesothelial Cells 5, Fluid Other Cells 11, Fl Pathologist Comment May follow, Fluid Comment 2 SEE COMMENT 11/26/22 20:05: APTT 57.6 H 11/27/22 02:30: APTT 63.6 H 11/27/22 02:30: WBC 17.9 H, RBC 4.00 L, Hgb 9.0 L, Hct 28.5 L, MCV 71.3 L, MCH 22.5 L, MCHC 31.6 L, RDW Std Deviation 71.3 H, RDW Coeff of Angie 29.5 H, Plt Count 484 H, Immature Gran % (Auto) 1.800 H, Neut % (Auto) 90.3 H, Lymph % (Auto) 2.7 L, [place] % (Auto) 4.9, Eos % (Auto) 0.1, Baso % (Auto) 0.2, Absolute Neuts (auto) 16.2 H, Absolute Lymphs (auto) 0.48 L, Nucleated RBC % 0.2, Differential Comment SCANNED, Platelet Estimate SLT INC, Anisocytosis 2+, Microcytosis 2+ 11/27/22 02:30: Sodium 138, Potassium 4.3, Chloride 103, Carbon Dioxide 31.0, Anion Gap 4 L, BUN 34 H, Creatinine 0.48 L, Estim Creat Clear Calc 85.41, Est GFR (MDRD) Af Amer 165, Est GFR (MDRD) Non-Af 136, BUN/Creatinine Ratio 70.2 H, Glucose 105, Calcium 8.0 L Micro: Microbiology 11/26/22 13:52 Fluid - Thoracentesis Fluid Gram Stain - Final 11/22/22 12:40 Wash - Bronchial Wash Gram Stain - Final 11/22/22 12:40 Wash - Bronchial Wash Respiratory Culture - Final Culture exhibits no growth. 11/22/22 12:40 Wash - Bronchial Wash Gram Stain - Final 11/22/22 12:40 Wash - Bronchial Wash Respiratory Culture - Final Culture exhibits no growth. 11/20/22 15:55 Sputum, Expectorated/Coughed Gram Stain - Final 11/20/22 15:55 Sputum, Expectorated/Coughed Respiratory Culture - Final Streptococcus pneumoniae 11/21/22 16:35 Sputum, Induced/Lukens Gram Stain - Final 11/21/22 16:35 Sputum, Induced/Lukens Respiratory Culture - Final Presumptive C albicans 11/20/22 14:00 Blood Culture (Wb) - Anticubital Left Bacteria Detection (PCR) - Final Streptococcus pneumoniae 11/20/22 14:00 Blood Culture (Wb) - Anticubital Left Blood Culture - Final Alpha hemolytic organism 11/20/22 13:55 Blood Culture (Wb) - Anticubital Right Blood Culture - Final Streptococcus pneumoniae 11/20/22 13:50 Urine Catheter - Catheter Urine Culture - Final Culture exhibits no growth. 11/20/22 14:57 Mucosa - Nasopharyngeal Influenza Types A,B Direct FA (SAMANTHA) - Final 11/20/22 13:50 Urine Catheter - Catheter Legionella Antigen - Final 11/20/22 13:50 Urine Catheter - Catheter Streptococcus pneumoniae Antigen (M - Final Radiography Diagnostic Testing: Radiology Impression Liver Ultrasound 11/25/22 08:43 IMPRESSION: Small amount of pericholecystic fluid. Sludge is seen within the gallbladder lumen. Electronically Signed: Bert Hirsch MD at 8:19 EDT , Chest X-Ray 11/26/22 05:55 IMPRESSION: Stable bilateral pleural effusions, left greater than right, cannot exclude associated bibasilar consolidation Indeterminate opacity within the left upper lung which may be secondary to a confluence of shadows however cannot exclude focal consolidation. Electronically Signed: Wanda Chavez MD at 13:43 EDT , Thoracentesis Ultrasound 11/26/22 06:47 IMPRESSION: Ultrasound-guided right thoracentesis. Electronically Signed: Bert Hirsch MD at 14:08 EDT , Chest X-Ray 11/26/22 14:05 IMPRESSION: Status post right thoracentesis. There is no evidence of pneumothorax. Electronically Signed: Bert Hirsch MD at 14:23 EDT , Rhythm Strip Rhythm Strip: Sinus Tach Rate: 109 Physical Exam Narrative Patient is awake and responds to simple commands by nodding head or squeezing hand. Sedatives are off in preparation for possible extubation. Levophed is tapered off. Patient has low urine volume about 250 mils dark yellow, since midnight. Yesterday 660 mL in 24 hours. Physical exam General: Alert, simple questions, Cooperative HEENT: Atraumatic, PERRLA, EOMI, Normocephalic Oral: ET and OG tube. Neck: Supple, No JVD, Negative Carotid Bruits Lungs: Air entry diminished in bilateral lung bases. On vent support. Bilateral coarse crepitations. Cardiovascular: Sinus tachycardia, Normal S1, Normal S2, No murmurs Abdomen: Bowel Sounds Present, Soft, Non Tender, Non-Distended : Andino catheter. Dark color urine. No renal angle tenderness. No suprapubic tenderness. Extremities: No edema, Capillary Refill Less than 3 Seconds Skin: No rashes, No breakdown Musculoskeletal: No Tenderness to Palpation of Joints or Extremities. ROM full. Neurological: Cranial nerves II-XII grossly intact, DTR 2+/4 Psych/Mental Status: Flat affect. Assessment & Plan Assessment/Plan (1) Acute and chronic respiratory failure with hypoxia: (2) Acute dyspnea: PLAN: Plan 1.? Acute on chronic hypoxic respiratory failure secondary to continued right pleural effusion and community-acquired pneumonia and strep bacteremia with septic shock Patient also had mild PE with heart strain as documented in CTPA chest subsegmental pulmonary embolism in the right upper lobe. Less likely cardioge vivien shock. Patient patient had right thoracocentesis 525 ml of stephen-colored fluid drained on 11/26/2022. ? Blood cultures demonstrates strep pneumonia ?Continue broad spectrum antibiotics ?Continue diuretics depending upon hemodynamics and kidney function ? Continue with anticoagulation for subsegmental PEs, echo did demonstrate right heart strain 11/27: Patient is extubated today. Prior to that patient weaned off sedative and Levophed. On midodrine. On IV meropenem. 2.? CAD status post stent/HTN/HLD/chronic diastolic CHF/paroxysmal A-fib ? Can continue with aspirin via G-tube as well as Lipitor ?Weaned off norepinephrine. BP 115/72. On IV heparin drip. ? Diuretic on hold. 3.? Hypothyroidism ? Continue with Synthroid 4.? Severe chronic protein calorie malnutrition ? Continue with nutritional evaluation 5.? GERD ? Stable ? Continue with PPI DVT: Heparin drip Charges/Coding Visit Charges Inpatient E&M: 10409 Subs Hosp L3
[2022-11-27 07:45] LABS: Allen Test Positive; Base Excess 8 mmol/L (-2 to +2); Bicarbonate 31.1 mmol/L (22-26); Blood Gas Specimen Type ART; FI02 40; Mode CPAP/PS; O2 Delivery Device Adult Vent; PEEP 5; PO2 76 mmHG (75-100); PS 8; SITE R Radial; SO2 96 % (95-99); Total Carbon Dioxide 32 mmol/L; pCO2 41.7 mmHg (35-45); pH 7.48 (7.35-7.45)
--- NOTE | 2022-11-27 09:53 | PN.CC_ITS ---
Assessment & Plan Assessment/Plan (1) On mechanically assisted ventilation: PLAN: Patient extubated uneventfully. She is on 4 L nasal cannula - Routine post ventilator orders and mobilization - Chest x-ray daily x2 (2) Cachexia: PLAN: Swallowing study today - Advance diet as tolerated (3) Bronchiectasis, non-tuberculous: PLAN: Chronic (4) Acute and chronic respiratory failure with hypoxia: PLAN: As above, monitor. See orders. (5) Complete atelectasis of left lung: PLAN: Monitor closely now that patient is off mechanical ventilation. (6) History of acute heart failure: PLAN: Currently stable (7) Recurrent pleural effusion: PLAN: Thoracentesis of 525 cc from the right pleural space done yesterday by IR, left could not be drained due to loculation. Await results PLAN: Plan Critical care time spent with patient at bedside, review of documentation, lab results, radiology and other test results, discussion with colleagues and ancillary staff, clinical management of patient, and updating family if applicable, was 40 minutes. This time does not include any procedures, if performed[place] [address]. Subjective Subjective Alert and oriented, extubated today uneventfully. Speech is very weak not talking much but able to nod appropriately. No complaints. Objective Data Objective Data Events of overnight reviewed, patient seen at bedside, and again with interdisciplinary team. Now the patient has been extubated, plan swallowing study today, out of bed to chair, OT PT speech to start. Vital Signs: Vital Signs Temp Pulse Resp BP Pulse Ox O2 Del Method O2 Flow Rate 98.9 F 73 14 97/64 96 Mechanical Ventilator 15 11/27/22 08:00 11/27/22 08:00 11/27/22 08:00 11/27/22 08:00 11/27/22 08:00 11/27/22 08:00 11/20/22 16:00 FiO2 40 11/27/22 08:00 Oxygen Flow Rate (L/min) 15 Oxygen Delivery Method Mechanical Ventilator Weight: 101 lb 10.13 oz Body Mass Index (BMI) 21.2 Intake & Output: Intake and Output for Last 24 Hours 11/25/22 11/26/22 11/27/22 23:59 23:59 23:59 Intake Total 1713.40 / 1735.10 2321.09 / 2576.19 1176.10 / 1176.10 Output Total 2800 / 2800 510 / 660 300 / 300 Balance -1086.60 / -1064.90 1811.09 / 1916.19 876.10 / 876.10 Medical Nutrition Assessment Dietitian: Malnutrition Criteria Met Start: 11/20/22 11:25 Freq: Status: Active Protocol: Document 11/25/22 09:50 AG (Rec: 11/25/22 09:50 AG [id number]) Nutrition Malnutrition Evidence of Malnutrition Exists Yes Malnutrition (severe): Chronic Evidenced By Suboptimal Energy Intake ( Severe),Weight Loss (Severe), Physical Changes (Moderate) Intake Problem Inadequate Oral Intake Etiology related to increased oxygen needs/intubated state Signs/Symptoms as evidenced by NPO Status Resolved Problem Clinical Problem Chronic Disease or Condition Related Malnutrition Etiology Severe protein-calorie malnutrition in the context of chronic disease related to inadequate oral/energy intake Signs/Symptoms as evidenced by estimated PO intake 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 Continue via OGT- Vital AF 1.2 @ 20 ml/ hr and increase rate as tolerated by 10 ml/hr every 6- 8 hours to goal rate of 40 ml/ hr. Water flush with 120 ml every 6 hours. TF at goal rate will provide 1152 calories, 72 g protein and 1259 ml water per day. Lab / Micro Data Result Diagrams: 11/27/22 02:30 11/27/22 02:30 Labs: Laboratory Results - last 24 hr 11/26/22 03:25: WBC Cancelled, Corrected WBC Cancelled, RBC Cancelled, Hgb Cancelled, Hct Cancelled, MCV Cancelled, MCH Cancelled, MCHC Cancelled, RDW Std Deviation Cancelled, RDW Coeff of Angie Cancelled, Plt Count Cancelled, MPV Cancelled, Immature Gran % (Auto) Cancelled, Neut % (Auto) Cancelled, Lymph % (Auto) Cancelled, [place] % (Auto) Cancelled, Eos % (Auto) Cancelled, Baso % (Auto) Cancelled, Absolute Neuts (auto) Cancelled, Absolute Lymphs (auto) Cancelled, Total Counted Cancelled, Neutrophils % (Manual) Cancelled, Band Neutrophils % Cancelled, Lymphocytes % (Manual) Cancelled, Monocytes % (Manual) Cancelled, Eosinophils % (Manual) Cancelled, Basophils % (Manual) Cancelled, Metamyelocytes % Cancelled, Myelocytes % Cancelled, Promyelocytes % Cancelled, Blast Cells % Cancelled, Plasma Cell % (Manual) Cancelled, Other Cells % Cancelled, Nucleated RBC % Cancelled, Nucleated RBCs/100 WBC Cancelled, Differential Comment Cancelled, Diff Path Review Cancelled, Hypersegmented Neuts Cancelled, Atypical Lymphocytes Cancelled, Reactive Lymphocytes Cancelled, Smudge Cells Cancelled, Toxic Granulation Cancelled, Toxic Vacuolation Cancelled, Dohle Bodies Cancelled, Paige Rods Cancelled, Platelet Estimate Cancelled, Plt Morphology Comment Cancelled, RBC Morphology Cancelled, Polychromasia Cancelled, Hypochromasia Cancelled, Poikilocytosis Cancelled, Basophilic Stippling Cancelled, Anisocytosis Cancelled, Microcytosis Cancelled, Macrocytosis Cancelled, Spherocytes Cancelled, Sickle Cells Cancelled, Target Cells Cancelled, Tear Drop Cells Cancelled, Ovalocytes Cancelled, Stomatocytes Cancelled, [place] Bodies Cancelled, [place] Cells Cancelled, Bite Cells Cancelled, Crenated Cell Cancelled, Acanthocytes (Spur) Cancelled, Rouleaux Cancelled, Schistocytes Cancelled 11/26/22 13:52: Fluid Total Protein 2.9 11/26/22 13:52: Fluid Glucose TNP, Fluid LDH 149 11/26/22 13:52: Fluid Source THORACENTESIS, Fluid Color YELLOW, Fluid Appearance CLEAR, Fluid WBC 0.663, Fluid RBC 2574, Fluid Tot Cell Count 0.943 H, Fld Polynuclear WBCs # 0.055, Fld Polynuclear WBCs % 8.3, Fluid Mononuclear WBCs 0.608, Fld Mononuclear WBCs % 91.7, Fluid Neutrophils 7, Fluid Lymphocytes 45, Fluid Plasma Cells 10, Fluid Macrophages 22, Fld Mesothelial Cells 5, Fluid Other Cells 11, Fl Pathologist Comment May follow, Fluid Comment 2 SEE COMMENT 11/26/22 20:05: APTT 57.6 H 11/27/22 02:30: APTT 63.6 H 11/27/22 02:30: WBC 17.9 H, RBC 4.00 L, Hgb 9.0 L, Hct 28.5 L, MCV 71.3 L, MCH 22.5 L, MCHC 31.6 L, RDW Std Deviation 71.3 H, RDW Coeff of Angie 29.5 H, Plt Count 484 H, Immature Gran % (Auto) 1.800 H, Neut % (Auto) 90.3 H, Lymph % (Auto) 2.7 L, [place] % (Auto) 4.9, Eos % (Auto) 0.1, Baso % (Auto) 0.2, Absolute Neuts (auto) 16.2 H, Absolute Lymphs (auto) 0.48 L, Nucleated RBC % 0.2, Differential Comment SCANNED, Platelet Estimate SLT INC, Anisocytosis 2+, Microcytosis 2+ 11/27/22 02:30: Sodium 138, Potassium 4.3, Chloride 103, Carbon Dioxide 31.0, Anion Gap 4 L, BUN 34 H, Creatinine 0.48 L, Estim Creat Clear Calc 85.41, Est GFR (MDRD) Af Amer 165, Est GFR (MDRD) Non-Af 136, BUN/Creatinine Ratio 70.2 H, Glucose 105, Calcium 8.0 L Micro: Microbiology 11/26/22 13:52 Fluid - Thoracentesis Fluid Gram Stain - Final 11/22/22 12:40 Wash - Bronchial Wash Gram Stain - Final 11/22/22 12:40 Wash - Bronchial Wash Respiratory Culture - Final Culture exhibits no growth. 11/22/22 12:40 Wash - Bronchial Wash Gram Stain - Final 11/22/22 12:40 Wash - Bronchial Wash Respiratory Culture - Final Culture exhibits no growth. 11/20/22 15:55 Sputum, Expectorated/Coughed Gram Stain - Final 11/20/22 15:55 Sputum, Expectorated/Coughed Respiratory Culture - Final Streptococcus pneumoniae 11/21/22 16:35 Sputum, Induced/Lukens Gram Stain - Final 11/21/22 16:35 Sputum, Induced/Lukens Respiratory Culture - Final Presumptive C albicans 11/20/22 14:00 Blood Culture (Wb) - Anticubital Left Bacteria Detection (PCR) - Final Streptococcus pneumoniae 11/20/22 14:00 Blood Culture (Wb) - Anticubital Left Blood Culture - Final Alpha hemolytic organism 11/20/22 13:55 Blood Culture (Wb) - Anticubital Right Blood Culture - Final Streptococcus pneumoniae 11/20/22 13:50 Urine Catheter - Catheter Urine Culture - Final Culture exhibits no growth. 11/20/22 14:57 Mucosa - Nasopharyngeal Influenza Types A,B Direct FA (SAMANTHA) - Final 11/20/22 13:50 Urine Catheter - Catheter Legionella Antigen - Final 11/20/22 13:50 Urine Catheter - Catheter Streptococcus pneumoniae Antigen (M - Final ABG Data ABG results: ABG 11/27/22 07:38 Specimen Type ART Sample Site R Radial pH 7.48 H Bicarbonate Actual 31.1 H Total CO2 32 Base Excess 8 H O2 Saturation 96 O2 % 40 ABG pCO2 41.7 ABG pO2 76 Finesse Test Positive O2 Delivery Device Adult Vent Vent Mode CPAP/PS POC PEEP 5 POC Pressure Suppt 8 Radiography Diagnostic Testing: Radiology Impression Chest X-Ray 11/26/22 05:55 IMPRESSION: Stable bilateral pleural effusions, left greater than right, cannot exclude associated bibasilar consolidation Indeterminate opacity within the left upper lung which may be secondary to a confluence of shadows however cannot exclude focal consolidation. Electronically Signed: Wanda Chavez MD at 13:43 EDT , Thoracentesis Ultrasound 11/26/22 06:47 IMPRESSION: Ultrasound-guided right thoracentesis. Electronically Signed: Bert Hirsch MD at 14:08 EDT , Chest X-Ray 11/26/22 14:05 IMPRESSION: Status post right thoracentesis. There is no evidence of pneumothorax. Electronically Signed: Bert Hirsch MD at 14:23 EDT , Rhythm Strip Rhythm Strip: Sinus Tach Rate: 109 Charges/Coding Procedures Hospitalists Procedures: 93376 Critial Care 1st Hr
[2022-11-27 12:56] LABS: Pathologist Comment/Body Fluid Reviewed
--- NOTE | 2022-11-27 16:10 | CASEMGMT ---
SW met with patient. Introduced self and role at [facility]. senior care facility is being recommended for patient. SW explained recommendations. SW provided patient with a list of [facility]dc facility providers including quality and resource use data and consistent with patient?s preferred geographic region, medical needs, and insurance network were provided from the [employer]. SW went over the facilities on the list. Patient asked SW to call her son Damion. SW called patient's son Damion and let him know fdc facility short term for rehab is being recommended. SW also let Damion know that the list of facilities that take patient's insurance is in patient's room and she was requesting his help with picking a facility. Damion said he will be in Wednesday or Wednesday and will help patient with the list. SW also let Damion know that they just need to pick 2-3 facilities and SW will take care of contacting facilities. Gisella Pires [employer] TECHNIC[employer]H
[2022-11-28] VITALS (32 sets, daily range): BP systolic 96–135; BP diastolic 66–87; PULSE 68–88; RESP 12–26; TEMP 37.2–37.4; O2SAT 91–100; BMI 22.8
[2022-11-28 04:33] LABS: Absolute Neutrophil Count 15.4 X10^3/uL (2.0-7.7); Basophil# 0.03 X10^3/uL; Basophil% 0.2 % (0-1); Eosinophil# 0.01 X10^3/uL; Eosinophils% 0.1 % (0-5); Hematocrit 31.6 % (37-47); Hemoglobin 9.9 g/dL (12.0-15.0); Lymphocyte % 2.4 % (19-41); Mean Corp Hgb Conc 31.3 g/dL (32-36); Mean Corpuscular Hgb 22.9 pg (27.0-32.0); Mean Corpuscular Volume 73.1 fL (81-99); Monocyte# 0.86 X10^3/uL; Monocyte% 5.1 % (0-10); NRBC Flagged by Analyzer 0 % (0-5); Neutrophil # 15.42 X10^3/uL (2.7-7.7); Neutrophil % 90.7 % (47-70); POSITIVE DIFFERENTIAL YES; POSITIVE MORPHOLOGY YES; Platelet Count 484 K/mm3 (150-450); RBC Distribution Width CV 29.5 % (11.6-14.6); RBC Distribution Width SD 74.3 fl (35.1-43.9); Red Blood Count 4.32 M/mm3 (4.2-5.4)
[2022-11-28 04:39] LABS: Differential Indicated SCAN CRITERIA MET
[2022-11-28 04:56] LABS: ALB/GLOB Ratio 0.4 RATIO (0.9-2.4); AST(SGOT) 50 U/L (15-37); Alanine Aminotransfer ALT/SGPT 183 U/L (13-56); Albumin, Serum 1.5 g/dL (3.2-5.0); Alkaline Phosphatase 155 U/L (45-117); Anion Gap 1 (5-15); BUN 24 mg/dL (7-18); Calcium,Total 8.2 mg/dL (8.5-10.1); Chloride 101 mmol/L (98-107); Creatinine, Serum 0.36 mg/dL (0.55-1.02); EST Glomerular Filtration Rate 193 mL/min (>60); Est Glom Filt Rate - Afr Amer 234 mL/min (>60); Estimated Creatinine Clearance 113.38 ml/min; Glucose 82 mg/dL (74-106); Protein, Total 5.5 g/dL (6.4-8.2); Sodium Level 136 mmol/L (136-145)
[2022-11-28 04:59] LABS: Partial Thromboplast Time 117.4 Seconds (24.1-36.2)
[2022-11-28 05:30] LABS: Stomatocyte 1+; Target Cells 3+
[2022-11-28 05:33] LABS: Anisocytosis 2+; Poikilocytosis 2+
[2022-11-28] MEDS: Ipratropium 0.5 MG/2.5 ML SOLUTION INHALATION ×3 (06:49→18:58)
[2022-11-28] MEDS: HEPARIN/D5w 25,000 UNITS 25,000 UNITS/250 ML IV.SOLN. 5 UNITS CONT INF (08:22)
[2022-11-28] MEDS: Amiodarone 200 MG Tablet PO ×2 (10:05→22:01)
[2022-11-28] MEDS: Aspirin 81 MG TAB.CHEW GT (10:06)
[2022-11-28] MEDS: Clopidogrel Bisulfate 75 MG Tablet GT (10:06)
--- NOTE | 2022-11-28 10:46 | PCM.PN.INT ---
Assessment & Plan Assessment/Plan (1) Acute and chronic respiratory failure with hypoxia: PLAN: Patient remained stable for 2 days postextubation. - Monitor closely - Continue nocturnal noninvasive ventilation as needed at settings of 12/6, 40% FiO2 - Continue daytime nasal O2 at 4 L/min baseline and 6 L for any exertion. - Continue incentive spirometry, currently able to do 500 cc. (2) History of coronary artery stent placement: PLAN: Stable (3) Bronchiectasis, non-tuberculous: PLAN: Stable, sputum is nonpurulent (4) Recurrent pleural effusion: PLAN: The left effusion is loculated and unable to be tapped. The right was tapped on 11/26/2022 and had no growth to date. Exudative. Some results still pending. (5) Cachexia: PLAN: Discussed TPN versus PEG placement and intermediate term tube feeds to improve her nutritional status and strength. The patient agreed to this as did her brother who provided telephone consent today. - Gastroenterology consulted for PEG tube placement when available. (6) Sepsis due to Streptococcus pneumoniae with acute hypoxic respiratory failure and septic shock: PLAN: Septic shock is resolved. - Patient completed meropenem today. Blood pressure normalized, currently on midodrine. 10 mg 3 times daily - Surveillance cultures as needed PLAN: Plan As above Routine ICU prophylaxis with aspirin 81 mg daily, pantoprazole 40 mg daily IV, Zofran as needed 2 mg every 8 hours, polyethylene glycol 17 g twice daily, senna COPD treatment with budesonide 180 mcg twice daily, ipratropium nebulizer every 6 hours while awake, Singulair 10 mg daily, methylprednisolone 40 mg IV daily, oxygen Stent and cardiac prophylaxis with Plavix 75 mg daily, metoprolol 12.5 mg twice daily hold for hypotension; spironolactone 25 mg daily, potassium chloride 60 p.o. twice daily. Atorvastatin 40 mg at bedtime, Bumex 1 mg daily Continue treating hypothyroidism with levothyroxine 132 mcg daily on Wednesday and 88 mg daily other days Cut the dose of lorazepam by half because of the patient's small size and drug distribution Patient is on heparin drip for atrial fibrillation but has remained in normal sinus rhythm for a few days. Amiodarone 200 mg p.o. twice daily with drip stopped today, stop heparin drip. Critical care time spent with patient at bedside, review of documentation, lab results, radiology and other test results, discussion with colleagues and ancillary staff, clinical management of patient, and updating family if applicable, was 40 minutes. This time does not include any procedures, if performed. [place] [address]. Subjective Subjective Patient's voice is stronger, she is breathing comfortably, coughing a little stronger, minimal secretions, speech is intelligible and articulate. 3-5 word sentences. No chest pain, dyspnea, n,v. No fevers, complains of positional leg pain. Overnight was stable; events reviewed with ICU nursing staff. Yesterday desaturated briefly OOB to chair, able to walk 2 steps with PT, increased to 6 LPM O2 with good recovery. Thoracentesis fluid 4/6 NGTD. When patient was asked about a PEG tube she stated I thought I already had one she may have misunderstood the PICC tube in her left arm. She remains NPO having failed another swallowing test. Receiving IV D5 1/2NS at 60cc/hr pending PEG tube placement by GI. I updated her son Damion today by phone, who stated he would be in later. He consented to (as did patient, who was a little confused0 to PEG tube for nutrition and hydration. Objective Data Objective Data Vital Signs: Vital Signs Temp Pulse Resp BP Pulse Ox O2 Del Method O2 Flow Rate 99.4 F H 87 22 H 113/66 93 Nasal Cannula 4 11/28/22 10:00 11/28/22 10:00 11/28/22 10:00 11/28/22 10:00 11/28/22 10:00 11/28/22 10:00 11/28/22 10:00 FiO2 40 11/28/22 04:18 Oxygen Flow Rate (L/min) 4 Oxygen Delivery Method Nasal Cannula Weight: 109 lb 2.061 oz Body Mass Index (BMI) 22.8 Intake & Output: Intake and Output for Last 24 Hours 11/26/22 11/27/22 11/28/22 23:59 23:59 23:59 Intake Total 2321.09 / 2576.19 1393.63 / 1393.63 750.17 / 750.17 Output Total 510 / 660 700 / 850 330 / 330 Balance 1811.09 / 1916.19 693.63 / 543.63 420.17 / 420.17 Medical Nutrition Assessment Dietitian: Malnutrition Criteria Met Start: 11/20/22 11:25 Freq: Status: Active Protocol: Document 11/28/22 10:28 (Rec: 11/28/22 10:28 [id number]) Nutrition Malnutrition Evidence of Malnutrition Exists Yes Malnutrition (severe): Chronic Evidenced By Suboptimal Energy Intake ( Severe),Weight Loss (Severe), Physical Changes (Moderate) Intake Problem Inadequate Oral Intake Etiology related to chewing/swallowing difficulty Signs/Symptoms as evidenced by NPO x 2 days Status Active Problem Clinical Problem Chronic Disease or Condition Related Malnutrition Etiology Severe protein-calorie malnutrition in the context of chronic disease related to inadequate oral/energy intake Signs/Symptoms as evidenced by estimated PO intake meeting <50% of 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 Lab results narrative: WBC steadily decreased from 27 to 24 to 17 today after pneumococca septic shock earlier this week. Result Diagrams: 11/28/22 04:25 11/28/22 04:25 Labs: Laboratory Results - last 24 hr 11/26/22 13:52: Fl Pathologist Comment Reviewed 11/28/22 04:25: APTT 117.4 H* 11/28/22 04:25: WBC 17.0 H, RBC 4.32, Hgb 9.9 L, Hct 31.6 L, MCV 73.1 L, MCH 22.9 L, MCHC 31.3 L, RDW Std Deviation 74.3 H, RDW Coeff of Angie 29.5 H, Plt Count 484 H, MPV 11.0, Immature Gran % (Auto) 1.500 H, Neut % (Auto) 90.7 H, Lymph % (Auto) 2.4 L, [place] % (Auto) 5.1, Eos % (Auto) 0.1, Baso % (Auto) 0.2, Absolute Neuts (auto) 15.4 H, Absolute Lymphs (auto) 0.40 L, Total Counted ELECTRONICS COMMODITY MANAGER, Neutrophils % (Manual) Not Reportable, Lymphocytes % (Manual) Not Reportable, Monocytes % (Manual) Not Reportable, Eosinophils % (Manual) Not Reportable, Metamyelocytes % Not Reportable, Myelocytes % Not Reportable, Promyelocytes % Not Reportable, Nucleated RBC % 0, Differential Comment COMMENT, Diff Path Review N/A, Platelet Estimate Not Reportable, Plt Morphology Comment Not Reportable, Poikilocytosis 2+, Anisocytosis 2+, Target Cells 3+, Stomatocytes 1+ 11/28/22 04:25: Sodium 136, Potassium 4.0, Chloride 101, Carbon Dioxide 34.0 H, Anion Gap 1 L, BUN 24 H, Creatinine 0.36 L, Estim Creat Clear Calc 113.38, Est GFR (MDRD) Af Amer 234, Est GFR (MDRD) Non-Af 193, BUN/Creatinine Ratio 67.0 H, Glucose 82, Calcium 8.2 L, Total Bilirubin 0.30, AST 50 H, ALT 183 H, Alkaline Phosphatase 155 H, Total Protein 5.5 L, Albumin 1.5 L, Globulin 4.0, Albumin/Globulin Ratio 0.4 L Micro: Microbiology 11/26/22 13:52 Fluid - Thoracentesis Fluid Gram Stain - Final 11/26/22 13:52 Fluid - Thoracentesis Fluid Body Fluid Culture - Preliminary No growth-Final to follow 11/26/22 13:52 Fluid - Thoracentesis Fluid Anaerobic Culture - Preliminary No growth in 48 hours. 11/22/22 12:40 Wash - Bronchial Wash Gram Stain - Final 11/22/22 12:40 Wash - Bronchial Wash Respiratory Culture - Final Culture exhibits no growth. 11/22/22 12:40 Wash - Bronchial Wash Gram Stain - Final 11/22/22 12:40 Wash - Bronchial Wash Respiratory Culture - Final Culture exhibits no growth. 11/20/22 15:55 Sputum, Expectorated/Coughed Gram Stain - Final 11/20/22 15:55 Sputum, Expectorated/Coughed Respiratory Culture - Final Streptococcus pneumoniae 11/21/22 16:35 Sputum, Induced/Lukens Gram Stain - Final 11/21/22 16:35 Sputum, Induced/Lukens Respiratory Culture - Final Presumptive C albicans 11/20/22 14:00 Blood Culture (Wb) - Anticubital Left Bacteria Detection (PCR) - Final Streptococcus pneumoniae 11/20/22 14:00 Blood Culture (Wb) - Anticubital Left Blood Culture - Final Alpha hemolytic organism 11/20/22 13:55 Blood Culture (Wb) - Anticubital Right Blood Culture - Final Streptococcus pneumoniae 11/20/22 13:50 Urine Catheter - Catheter Urine Culture - Final Culture exhibits no growth. 11/20/22 14:57 Mucosa - Nasopharyngeal Influenza Types A,B Direct FA (SAMANTHA) - Final 11/20/22 13:50 Urine Catheter - Catheter Legionella Antigen - Final 11/20/22 13:50 Urine Catheter - Catheter Streptococcus pneumoniae Antigen (M - Final Rhythm Strip Rhythm Strip: Sinus Tach Rate: 109 Physical Exam Narrative Well-developed cachectic woman who appears very weak but slightly stronger over the past 2 days. No acute distress. Appears very depressed. HEENT: Mucous membranes moist Chest is diminished but clear bilaterally with no wheezes rales or rhonchi. She seemed able to expectorate her secretions with a [place] Heart normal S1-S2 with no murmurs Abdomen soft nontender. There is no PEG or PEG scar in place. Extremities have no clubbing cyanosis or edema, her PICC line is in the left antecubital, infusing well, with no erythema or exudate. Neuro is diffusely weak but grossly nonfocal. Cranial nerves are intact. Skin unremarkable Charges/Coding Procedures Hospitalists Procedures: 89189 Critial Care 1st Hr
--- NOTE | 2022-11-28 10:56 | PN.HOSP_ITS ---
Reason for Visit Reason for Visit: Diagnoses Chronic obstructive pulmonary disease, unspecified (11/20/22) Bronchiectasis, uncomplicated (11/20/22) Pleural effusion, not elsewhere classified (11/20/22) Acute and chronic respiratory failure with hypoxia (11/20/22) Atelectasis (11/20/22) Dyspnea, unspecified (11/20/22) Cachexia (11/20/22) Personal history of other diseases of the circulatory system (11/20/22) Presence of coronary angioplasty implant and graft (11/20/22) Dependence on respirator [ventilator] status (11/20/22) Follow-up for respiratory failure status postextubation and shock. Objective Data Objective Data Vital Signs: Vital Signs Temp Pulse Resp BP Pulse Ox O2 Del Method O2 Flow Rate 99.4 F H 87 22 H 113/66 93 Nasal Cannula 4 11/28/22 10:00 11/28/22 10:00 11/28/22 10:00 11/28/22 10:00 11/28/22 10:00 11/28/22 10:00 11/28/22 10:00 FiO2 40 11/28/22 04:18 Oxygen Flow Rate (L/min) 4 Oxygen Delivery Method Nasal Cannula Weight: 109 lb 2.061 oz Body Mass Index (BMI) 22.8 Intake & Output: Intake and Output for Last 24 Hours 11/26/22 11/27/22 11/28/22 23:59 23:59 23:59 Intake Total 2321.09 / 2576.19 1393.63 / 1393.63 750.17 / 750.17 Output Total 510 / 660 700 / 850 330 / 330 Balance 1811.09 / 1916.19 693.63 / 543.63 420.17 / 420.17 Medical Nutrition Assessment Dietitian: Malnutrition Criteria Met Start: 11/20/22 11:25 Freq: Status: Active Protocol: Document 11/28/22 10:28 AG (Rec: 11/28/22 10:28 AG [id number]) Nutrition Malnutrition Evidence of Malnutrition Exists Yes Malnutrition (severe): Chronic Evidenced By Suboptimal Energy Intake ( Severe),Weight Loss (Severe), Physical Changes (Moderate) Intake Problem Inadequate Oral Intake Etiology related to chewing/swallowing difficulty Signs/Symptoms as evidenced by NPO x 2 days Status Active Problem Clinical Problem Chronic Disease or Condition Related Malnutrition Etiology Severe protein-calorie malnutrition in the context of chronic disease related to inadequate oral/energy intake Signs/Symptoms as evidenced by estimated PO intake meeting <50% 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, muscle/fat wasting visible in face, upper/lower extremities and torso and weight loss ~9% x less than 6 months with fluid likely masking additional wt loss Status Active Problem Recommendation Dietitian Recommendations/Changes Will maintain NPO status until appropriate for PO intake; recommend cardiac diet when medically indicated- texture/ consistency modifications per HOSPITALITY COORDINATOR Lab / Micro Data Result Diagrams: 11/28/22 04:25 11/28/22 04:25 Labs: Laboratory Results - last 24 hr 11/26/22 13:52: Fl Pathologist Comment Reviewed 11/28/22 04:25: APTT 117.4 H* 11/28/22 04:25: WBC 17.0 H, RBC 4.32, Hgb 9.9 L, Hct 31.6 L, MCV 73.1 L, MCH 22.9 L, MCHC 31.3 L, RDW Std Deviation 74.3 H, RDW Coeff of Angie 29.5 H, Plt Count 484 H, MPV 11.0, Immature Gran % (Auto) 1.500 H, Neut % (Auto) 90.7 H, Ly mph % (Auto) 2.4 L, [place] % (Auto) 5.1, Eos % (Auto) 0.1, Baso % (Auto) 0.2, A bsolute Neuts (auto) 15.4 H, Absolute Lymphs (auto) 0.40 L, Total Counted DISTRICT WILDLIFE MANAGER, Neutrophils % (Manual) Not Reportable, Lymphocytes % (Manual) Not Reportable, Monocytes % (Manual) Not Reportable, Eosinophils % (Manual) Not Reportable, Metamyelocytes % Not Reportable, Myelocytes % Not Reportable, Promyelocytes % Not Reportable, Nucleated RBC % 0, Differential Comment COMMENT, Diff Path Review N/A, Platelet Estimate Not Reportable, Plt Morphology Comment Not Reportable, Poikilocytosis 2+, Anisocytosis 2+, Target Cells 3+, Stomatocytes 1+ 11/28/22 04:25: Sodium 136, Potassium 4.0, Chloride 101, Carbon Dioxide 34.0 H, Anion Gap 1 L, BUN 24 H, Creatinine 0.36 L, Estim Creat Clear Calc 113.38, Est GFR (MDRD) Af Amer 234, Est GFR (MDRD) Non-Af 193, BUN/Creatinine Ratio 67.0 H, Glucose 82, Calcium 8.2 L, Total Bilirubin 0.30, AST 50 H, ALT 183 H, Alkaline Phosphatase 155 H, Total Protein 5.5 L, Albumin 1.5 L, Globulin 4.0, Albumin/Globulin Ratio 0.4 L Micro: Microbiology 11/26/22 13:52 Fluid - Thoracentesis Fluid Gram Stain - Final 11/26/22 13:52 Fluid - Thoracentesis Fluid Body Fluid Culture - Preliminary No growth-Final to follow 11/26/22 13:52 Fluid - Thoracentesis Fluid Anaerobic Culture - Preliminary No growth in 48 hours. 11/22/22 12:40 Wash - Bronchial Wash Gram Stain - Final 11/22/22 12:40 Wash - Bronchial Wash Respiratory Culture - Final Culture exhibits no growth. 11/22/22 12:40 Wash - Bronchial Wash Gram Stain - Final 11/22/22 12:40 Wash - Bronchial Wash Respiratory Culture - Final Culture exhibits no growth. 11/20/22 15:55 Sputum, Expectorated/Coughed Gram Stain - Final 11/20/22 15:55 Sputum, Expectorated/Coughed Respiratory Culture - Final Streptococcus pneumoniae 11/21/22 16:35 Sputum, Induced/Lukens Gram Stain - Final 11/21/22 16:35 Sputum, Induced/Lukens Respiratory Culture - Final Presumptive C albicans 11/20/22 14:00 Blood Culture (Wb) - Anticubital Left Bacteria Detection (PCR) - Final Streptococcus pneumoniae 11/20/22 14:00 Blood Culture (Wb) - Anticubital Left Blood Culture - Final Alpha hemolytic organism 11/20/22 13:55 Blood Culture (Wb) - Anticubital Right Blood Culture - Final Streptococcus pneumoniae 11/20/22 13:50 Urine Catheter - Catheter Urine Culture - Final Culture exhibits no growth. 11/20/22 14:57 Mucosa - Nasopharyngeal Influenza Types A,B Direct FA (SAMANTHA) - Final 11/20/22 13:50 Urine Catheter - Catheter Legionella Antigen - Final 11/20/22 13:50 Urine Catheter - Catheter Streptococcus pneumoniae Antigen (M - Final Rhythm Strip Rhythm Strip: Sinus Tach Rate: 109 Physical Exam Narrative Patient is awake and alert. Extubated on 11/27/2022. Patient understands and follow commands. Patient still very weak and fatigued. Physical exam General: Alert, simple questions, Cooperative HEENT: Atraumatic, PERRLA, EOMI, Normocephalic Oral: ET and OG tube. Neck: Supple, No JVD, Negative Carotid Bruits Lungs: Air entry diminished in bilateral lung bases. On vent support. Bilateral coarse crepitations. Cardiovascular: Sinus tachycardia, Normal S1, Normal S2, No murmurs Abdomen: Bowel Sounds Present, Soft, Non Tender, Non-Distended : Andino catheter. Dark color urine. No renal angle tenderness. No suprapubic tenderness. Extremities: No edema, Capillary Refill Less than 3 Seconds Skin: No rashes, No breakdown Musculoskeletal: No Tenderness to Palpation of Joints or Extremities. ROM full. Neurological: Cranial nerves II-XII grossly intact, DTR 2+/4 Psych/Mental Status: Flat affect. Assessment & Plan Assessment/Plan (1) Acute and chronic respiratory failure with hypoxia: (2) Acute dyspnea: PLAN: Plan 1.? Acute on chronic hypoxic respiratory failure secondary to continued right pleural effusion and community-acquired pneumonia and strep bacteremia with septic shock Patient also had mild PE with heart strain as documented in CTPA chest subsegmental pulmonary embolism in the right upper lobe. Less likely cardiog enic shock. Patient patient had right thoracocentesis 525 ml of stehpen-colored fluid drained on 11/26/2022. ? Blood cultures demonstrates strep pneumonia ?Continue broad spectrum antibiotics ?Continue diuretics depending upon hemodynamics and kidney function ? Continue with anticoagulation for subsegmental PEs, echo did demonstrate right heart strain 11/27: Patient is extubated today. Prior to that patient weaned off sedative and Levophed. On midodrine. On IV meropenem. 11/28: Patient was extubated yesterday. Very weak and fatigued. PT and OT. Thoracocentesis and bronc culture does not show any growth. Urine output 350 mL since midnight. 850 mL last 24 hours yesterday 2.? CAD status post stent/HTN/HLD/chronic diastolic CHF/paroxysmal A-fib ? Can continue with aspirin via G-tube as well as Lipitor ?Weaned off norepinephrine. BP 115/72. On IV heparin drip. ? Diuretic on hold. 11/28: Heart rate is controlled. Patient amiodarone drip changed to amiodarone oral. 3. Oropharyngeal dysphagia: Patient failed swallow. GI is consulted for PEG tube. On D5W for nutrition. 3.? Hypothyroidism ? Continue with Synthroid 4.? Severe chronic protein calorie malnutrition ? Continue with nutritional evaluation 5.? GERD ? Stable ? Continue with PPI DVT: Heparin drip Charges/Coding Visit Charges Inpatient E&M: 21892 [facility] Hosp L3
--- NOTE | 2022-11-28 13:44 | CASEMGMT ---
Social Work Note SW met with patient and introduced herself and role as [facility] Passenger Screener. Patient was seated in hospital chair and agreeable to speak with SW. SW inquired if patient and patient's son were able to review SNF list. Patient reports Damion hasn't been in yet but patient knows she is interested in [facility]. SW reviewed referral process and explained she could send a referral to . Patient in agreement and agreeable for SW to contact her son to further discuss. SW contacted patient's son and introduced herself and role as [facility] Passenger Screener. SW reviewed conversation with patient and patient's interest in [facility]. Damion reports he plans to come in this weekend to further review options but is in agreement with patient's request for [facility]. SW reviewed referral process, patient's son reports understanding and voiced no questions. SW sent referral via [facility] to Parminder Sanchez. SW to follow up with additional SNF options if needed. Plan: SNF with acceptance when patient is medically ready Rocío AREVALO, FARRAH
[2022-11-28 14:05] LABS: Partial Thromboplast Time 46.3 Seconds (24.1-36.2)
[2022-11-28] MEDS: Heparin Injection (Vial) 5,000 UNIT/ML VIAL IV (14:12)
[2022-11-28] MEDS: 0.9% Saline Lock 10 ML Syringe IV (14:12)
--- NOTE | 2022-11-28 18:22 | CON.PCM.GI_ITS ---
HPI Consult Data Date of Consult: 11/28/22 HPI Narrative Reason for Consultation: PEG tube placement HPI Narrative: LOUISE ROSALES, is a 67 F who presented to the ED with worsening shortness of breath on 11/19/2022. She has a history of complicated chronic bilateral pleural effusions?on home oxygen. She had undergone a left thoracentesis the day prior to admission due to a chronic left pleural effusion, she is on chronic oxygen at home at 2 L/min.? She came to the emergency room today with increasing shortness of breath, work- up in the emergency room included a chest x-ray showing an increasing left pleural effusion with left basilar atelectasis and/or infiltration, she had a chest ultrasound performed today which showed a multiloculated collection at the left lung base. She went into respiratory failure and shock probably septic shock or cardiogenic shock from strep pneumoniae pneumonia with bacteremia. She was intubated and then successfully extubated. She is close to her baseline regarding oxygen requirements. Since being extubated she underwent a swallowing eval and was unsuccessful. I was consulted for percutaneous endoscopic gastrostomy tube placement. [facility] Medical History (Updated 11/28/22 @ 18:[address] Murray Friend, DO) Acute and chronic respiratory failure with hypoxia Alcohol abuse Angioedema Anxiety Atherosclerotic heart disease of [place] coronary artery without angina pectoris Bilateral pleural effusion Bronchiectasis, non-tuberculous Cachexia Congestive heart failure (CHF) Contusion of right lower leg, initial encounter COPD (chronic obstructive pulmonary disease) Edema of right lower extremity Elevated transaminase level Former smoker GERD (gastroesophageal reflux disease) History of non-ST elevation myocardial infarction (NSTEMI) (06/18/20) Hypothyroidism Iatrogenic pneumothorax (06/17/22) Iron deficiency anemia Laceration without foreign body, right lower leg, initial encounter Leg wound, right Myocardial infarct Non-healing ulcer of ankle with fat layer exposed Pericardial effusion Pneumothorax Recurrent pleural effusion Restrictive pericarditis Secondary pulmonary arterial hypertension Sepsis due to Streptococcus pneumoniae with acute hypoxic respiratory failure and septic shock Severe malnutrition Syncope (06/17/22) Ulcer of right lower extremity with fat layer exposed Home Medications albuterol sulfate 90 mcg/actuation aerosol inhaler 2 puff inhalation Q4H PRN PRN Bronchodialation 09/07/16 [History Last Taken 06/17/22] omeprazole 20 mg capsule,delayed release 40 mg PO DAILY GERD 09/07/16 [History Last Taken 06/17/22] lorazepam 0.5 mg tablet 0.5 mg PO BID PRN PRN Anxiety 09/26/16 [History Last Taken 06/17/22] ascorbic acid (vitamin C) 500 mg chewable tablet 500 mg PO BIDCM supplement ##0 06/20/20 [Rx Last Taken 06/16/22] budesonide 180 mcg/actuation breath activated powder inhaler 1 inh inhalation BID COPD 02/11/21 [History Last Taken 06/17/22] montelukast 10 mg tablet 10 mg PO DAILY 02/11/21 [History Last Taken 06/16/22] vitamin B complex (B Complex-Vitamin B12 tablet) 1 tab PO DAILY 02/11/21 [History Last Taken 06/17/22] colchicine 0.6 mg tablet 0.6 mg PO DAILY gout #30 tabs 01/14/22 [Rx Last Taken 06/16/22] levothyroxine 88 mcg tablet 88 mcg PO MOTUWETHFRSA 01/20/22 [History Last Taken 06/17/22] metoprolol tartrate 25 mg tablet 12.5 mg PO BID #120 tabs 01/20/22 [Rx Last Taken 06/17/22] potassium chloride 10 mEq tablet,extended release 60 meq PO BID 01/20/22 [History Last Taken 06/17/22] spironolactone 25 mg tablet 25 mg PO DAILY #90 tabs 03/23/22 [Rx Last Taken 06/16/22] acetaminophen 500 mg tablet 1,000 mg PO Q6H PRN Pain 06/17/22 [History Last Taken 06/16/22] guaifenesin 1,200 mg tablet, extended release 12 hr (Mucinex) 1,200 mg PO BID CONGESTION 06/17/22 [History Last Taken 06/17/22] levothyroxine 88 mcg tablet 132 mcg PO GEORGES 06/17/22 [History Last Taken 06/14/22] ipratropium 20 mcg-albuterol 100 mcg/actuation mist for inhalation 1 puff inhalation Q4H #4 grams 07/08/22 [Rx Last Taken Unknown] multivitamin 1 tab PO DAILY supplement 07/08/22 [History Last Taken Unknown] aspirin 81 mg tablet,delayed release 81 mg PO DAILY #90 tabs 09/01/22 [Rx Last Taken Unknown] atorvastatin 40 mg tablet 40 mg PO QHS #90 tabs 09/01/22 [Rx Last Taken Unknown] clopidogrel 75 mg tablet 75 mg PO DAILY #90 tabs 09/01/22 [Rx Last Taken Unknown] bumetanide 1 mg tablet 1 mg PO DAILY water pill #90 tabs 09/21/22 [Rx Last Taken Unknown] alendronate 70 mg tablet tablet PO 10/01/22 [History Last Taken 11/05/22 06:00] Allergy/AdvReac Type Severity Reaction Status Date / Time amoxicillin [From Augmentin] Allergy Rash Verified 11/19/22 18:15 clavulanic acid Allergy Rash Verified 11/19/22 18:15 [From Augmentin] doxycycline Allergy Rash Verified 11/19/22 18:15 tiotropium AdvReac Unknown PT UNSURE Verified 11/19/22 18:15 OF REACTION budesonide [From Symbicort] AdvReac high Verified 11/19/22 18:15 feeling bumetanide AdvReac PT UNSURE Verified 11/19/22 18:15 OF REACTION cefdinir AdvReac Bleeding Verified 11/19/22 18:15 clindamycin AdvReac Abd Verified 11/19/22 18:15 cramps/diarrhea fluticasone [From Flonase] AdvReac HEADACHES Verified 11/19/22 18:15 formoterol [From Symbicort] AdvReac HIGH Verified 11/19/22 18:15 FEELING furosemide AdvReac NEEDS Verified 11/19/22 13:12 FOLLOW-UP spironolactone AdvReac NEEDS Verified 11/19/22 13:12 FOLLOW-UP umeclidinium AdvReac Shortness Verified 11/19/22 13:12 of breath Family History Mother Colon cancer Father Heart disease Surgical History History of coronary artery stent placement (06/18/20) History of right and left heart catheterization (05/01/20) History of thoracentesis (06/17/22) Social History Smoking Status: Former smoker alcohol intake: current alcohol intake frequency: holidays/special occasions only substance use type: does not use caffeine: Yes Type: coffee Number of servings: 1 ROS ROS Narrative The patient was too short of breath today on 15 L of oxygen and saturation of 85% to 2 a review of systems. Constitutional Constitutional: Denies anorexia, change in weight, fever(s), night sweats or weakness Eyes Eyes: Denies blurry vision, change in vision, discharge from eye(s) or eye pain Cardiovascular Cardiovascular: Reports dyspnea on exertion; Denies chest pain, claudication, edema or palpitations Respiratory/Chest Respiratory/Chest: Reports dyspnea, shortness of breath at rest and shortness of breath with exertion; Denies cough or hemoptysis Gastrointestinal Gastrointestinal: Denies abdominal pain, constipation, diarrhea, hematemesis, hematochezia, melena, nausea or vomiting Genitourinary Genitourinary: Denies dysuria, hematuria, urinary frequency, urinary hesitancy, urinary incontinence or urinary urgency Musculoskeletal Musculoskeletal: Denies back pain, joint pain, joint stiffness, joint swelling, myalgias or neck pain Neurologic Neurologic: Denies abnormal gait, abnormal speech, confusion, disequilibrium, dizziness, focal weakness, headache(s), loss of vision, numbness, other visual disturbances, paresthesias, syncope or tingling Psychiatric Psychiatric: Denies anxiety, cognitive impairment, depression, irritability, mood swings or suicidal ideation Endocrine Endocrinology: Denies change in body appearance, cold intolerance, excessive sweating, heat intolerance, polydipsia or polyuria Hematologic/Lymphatic Hematologic/Lymphatic: Denies none, anemia, easy bleeding, easy bruising or lymphadenopathy Allergic/Immunologic Allergic/Immunologic: Denies rhinitis, urticaria, eczemia or asthma Physical Exam Narrative Patient is awake and alert. Patient still very weak and fatigued. Physical exam General: Alert, simple questions, Cooperative HEENT: Atraumatic, PERRLA, EOMI, Normocephalic Oral: ET and OG tube. Neck: Supple, No JVD, Negative Carotid Bruits Lungs: Air entry diminished in bilateral lung bases. On vent support. Bilateral coarse crepitations. Cardiovascular: Sinus tachycardia, Normal S1, Normal S2, No murmurs Abdomen: Bowel Sounds Present, Soft, Non Tender, Non-Distended : Andino catheter. Dark color urine. No renal angle tenderness. No suprapubic tenderness. Extremities: No edema, Capillary Refill Less than 3 Seconds Skin: No rashes, No breakdown Musculoskeletal: No Tenderness to Palpation of Joints or Extremities. ROM full. Neurological: Cranial nerves II-XII grossly intact, DTR 2+/4 Psych/Mental Status: Flat affect. Medical Records Data Medical Nutrition Assessment Dietitian: Malnutrition Criteria Met Start: 11/20/22 11:25 Freq: Status: Active Protocol: Document 11/28/22 10:28 (Rec: 11/28/22 10:28 [id number]) Nutrition Malnutrition Evidence of Malnutrition Exists Yes Malnutrition (severe): Chronic Evidenced By Suboptimal Energy Intake ( Severe),Weight Loss (Severe), Physical Changes (Moderate) Intake Problem Inadequate Oral Intake Etiology related to chewing/swallowing difficulty Signs/Symptoms as evidenced by NPO x 2 days Status Active Problem Clinical Problem Chronic Disease or Condition Related Malnutrition Etiology Severe protein-calorie malnutrition in the context of chronic disease related to inadequate oral/energy intake Signs/Symptoms as evidenced by estimated PO intake 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, muscle/fat wasting visible in face, upper/lower extremities and torso and weight loss ~9% x less than 6 months with fluid likely masking additional wt loss Status Active Problem Recommendation Dietitian Recommendations/Changes Will maintain NPO status until appropriate for PO intake; recommend cardiac diet when medically indicated- texture/ consistency modifications per PUNCH CARD OPERATOR Lab / Micro Data Result Diagrams: 11/28/22 04:25 11/28/22 04:25 Labs: Laboratory Results - last 24 hr 11/28/22 04:25: APTT 117.4 H* 11/28/22 04:25: WBC 17.0 H, RBC 4.32, Hgb 9.9 L, Hct 31.6 L, MCV 73.1 L, MCH 22.9 L, MCHC 31.3 L, RDW Std Deviation 74.3 H, RDW Coeff of Angie 29.5 H, Plt Count 484 H, MPV 11.0, Immature Gran % (Auto) 1.500 H, Neut % (Auto) 90.7 H, Ly mph % (Auto) 2.4 L, [place] % (Auto) 5.1, Eos % (Auto) 0.1, Baso % (Auto) 0.2, A bsolute Neuts (auto) 15.4 H, Absolute Lymphs (auto) 0.40 L, Total Counted NOC ANALYST, Neutrophils % (Manual) Not Reportable, Lymphocytes % (Manual) Not Reportable, Monocytes % (Manual) Not Reportable, Eosinophils % (Manual) Not Reportable, Metamyelocytes % Not Reportable, Myelocytes % Not Reportable, Promyelocytes % Not Reportable, Nucleated RBC % 0, Differential Comment COMMENT, Diff Path Review N/A, Platelet Estimate Not Reportable, Plt Morphology Comment Not Reportable, Poikilocytosis 2+, Anisocytosis 2+, Target Cells 3+, Stomatocytes 1+ 11/28/22 04:25: Sodium 136, Potassium 4.0, Chloride 101, Carbon Dioxide 34.0 H, Anion Gap 1 L, BUN 24 H, Creatinine 0.36 L, Estim Creat Clear Calc 113.38, Est GFR (MDRD) Af Amer 234, Est GFR (MDRD) Non-Af 193, BUN/Creatinine Ratio 67.0 H, Glucose 82, Calcium 8.2 L, Total Bilirubin 0.30, AST 50 H, ALT 183 H, Alkaline Phosphatase 155 H, Total Protein 5.5 L, Albumin 1.5 L, Globulin 4.0, Albumin/Globulin Ratio 0.4 L 11/28/22 13:40: APTT 46.3 H Micro: Microbiology 11/26/22 13:52 Fluid - Thoracentesis Fluid Gram Stain - Final 11/26/22 13:52 Fluid - Thoracentesis Fluid Body Fluid Culture - Preliminary No growth-Final to follow 11/26/22 13:52 Fluid - Thoracentesis Fluid Anaerobic Culture - Preliminary No growth in 48 hours. Rhythm Strip Rhythm Strip: Sinus Tach Rate: 109 Assessment & Plan Assessment/Plan (1) Acute and chronic respiratory failure with hypoxia: (2) Acute dyspnea: (3) Oropharyngeal dysphagia: (4) Cachexia: PLAN: Plan 67-year-old with history of chronic bilateral pleural effusions who presented with acute on chronic hypoxic respiratory failure secondary to continued right pleural effusion and community-acquired pneumonia and strep bacteremia with septic shock. On this admission she was discovered to have a subsegmental pulmonary embolism in the right upper lobe. She was intubated and successfully extubated. She recently failed a swallow study and was determined to have oropharyngeal dysphagia and is not able to orally provide proper nutrition. Recommendation: Percutaneous endoscopic gastrostomy tube placement. Heparin drip should be held tomorrow night on 11/29/2022 at midnight for PEG tube placement on 11/30/2022. I spoke with the hospitalist team at and they are okay with this plan and will keep her on D5W and monitor electrolytes. She is on broad-spectrum antibiotics so she will not need any antibiotics prior to her having PEG tube placement. Charges/Coding Visit Charges Inpatient E&M: 41258 Init Hosp L3
[2022-11-28 20:45] LABS: Partial Thromboplast Time 76.6 Seconds (24.1-36.2)
[2022-11-29] VITALS (32 sets, daily range): BP systolic 89–134; BP diastolic 58–100; PULSE 64–87; RESP 12–24; TEMP 36.9–37.6; O2SAT 88–99; BMI 21.4
[2022-11-29 03:15] LABS: Partial Thromboplast Time 73.9 Seconds (24.1-36.2)
[2022-11-29 04:53] LABS: Absolute Lymphocyte Count 0.32 X10^3/uL (0.83-4.51); Basophil# 0.02 X10^3/uL; Basophil% 0.1 % (0-1); Hematocrit 34.2 % (37-47); Hemoglobin 10.3 g/dL (12.0-15.0); Lymphocyte # 0.32 X10^3/ul (0.83-4.51); Mean Corp Hgb Conc 30.1 g/dL (32-36); Mean Corpuscular Hgb 22.7 pg (27.0-32.0); Mean Corpuscular Volume 75.5 fL (81-99); Monocyte% 4.9 % (0-10); NRBC Flagged by Analyzer 0 % (0-5); Neutrophil # 14.98 X10^3/uL (2.7-7.7); Neutrophil % 91.8 % (47-70); POSITIVE DIFFERENTIAL YES; POSITIVE MORPHOLOGY YES; Platelet Count 579 K/mm3 (150-450); RBC Distribution Width CV 30.1 % (11.6-14.6); RBC Distribution Width SD 78.5 fl (35.1-43.9); Red Blood Count 4.53 M/mm3 (4.2-5.4); White Blood Count 16.3 K/mm3 (4.4-11.0)
[2022-11-29 04:54] LABS: Differential Indicated SCAN CRITERIA MET
[2022-11-29 05:03] LABS: Anion Gap -1 (5-15); BUN 16 mg/dL (7-18); BUN/Creat Ratio 45.1 RATIO (10-20); Calcium,Total 8.3 mg/dL (8.5-10.1); Chloride 98 mmol/L (98-107); Creatinine, Serum 0.36 mg/dL (0.55-1.02); EST Glomerular Filtration Rate 195 mL/min (>60); Est Glom Filt Rate - Afr Amer 236 mL/min (>60); Estimated Creatinine Clearance 121.74 ml/min; Glucose 91 mg/dL (74-106); Potassium 3.8 mmol/L (3.5-5.1); Sodium Level 131 mmol/L (136-145)
--- NOTE | 2022-11-29 06:32 | RAD_ITS ---
EXAM: XR CHEST, 1 VIEW CLINICAL INDICATION: Acute respiratory failure with hypoxemia Acute respiratory failure with hypoxemia TECHNIQUE: Frontal view of the chest. This report was created using [employer] report generation technology. COMPARISON: 11/26/2022. FINDINGS: LUNGS AND PLEURAL SPACES: There is a small right pleural effusion and there is a [id number] left pleural effusion. There is overlying atelectasis or infiltration the lung bases. No pneumothorax. HEART: Unremarkable. Cardiac silhouette not enlarged. MEDIASTINUM: Central airways and mediastinal contour are unremarkable. BONES/JOINTS: Unremarkable. SOFT TISSUES: Unremarkable. TUBES, LINES AND DEVICES: There is a left-sided PICC line with its tip overlying the superior vena cava. RAD/Chest 1 View (Portable) IMPRESSION: 1. Pleural effusions with overlying infiltration or atelectasis, not definitely changed. 2. PICC line in place. Electronically Signed: Kevyn Bowers MD at 7:25 EDT ,
[2022-11-29 06:44] LABS: Anisocytosis 3+; Microcytosis 1+; Platelet Estimate MOD INC (ADEQ)
[2022-11-29] MEDS: Ipratropium 0.5 MG/2.5 ML SOLUTION INHALATION ×3 (06:51→18:43)
--- NOTE | 2022-11-29 07:34 | PN.HOSP_ITS ---
Reason for Visit Reason for Visit: Diagnoses Sepsis due to Streptococcus pneumoniae (11/20/22) Chronic obstructive pulmonary disease, unspecified (11/20/22) Bronchiectasis, uncomplicated (11/20/22) Pleural effusion, not elsewhere classified (11/20/22) Acute respiratory failure with hypoxia (11/20/22) Acute and chronic respiratory failure with hypoxia (11/20/22) Atelectasis (11/20/22) Dyspnea, unspecified (11/20/22) Cachexia (11/20/22) Severe sepsis with septic shock (11/20/22) Personal history of other diseases of the circulatory system (11/20/22) Presence of coronary angioplasty implant and graft (11/20/22) Dependence on respirator [ventilator] status (11/20/22) Follow-up for respiratory failure, aspiration and shock Objective Data Objective Data Patient is relatively doing well after extubation but pulse ox still fluctuates. Vital Signs: Vital Signs Temp Pulse Resp BP Pulse Ox O2 Del Method O2 Flow Rate 98.8 F 66 19 H 133/80 H 95 Nasal Cannula 4 11/29/22 06:00 11/29/22 07:00 11/29/22 07:00 11/29/22 07:00 11/29/22 07:00 11/29/22 07:00 11/29/22 07:00 FiO2 40 11/29/22 06:00 Oxygen Flow Rate (L/min) 4 Oxygen Delivery Method Nasal Cannula Weight: 102 lb 1.184 oz Body Mass Index (BMI) 21.4 Intake & Output: Intake and Output for Last 24 Hours 11/27/22 11/28/22 11/29/22 23:59 23:59 23:59 Intake Total 1393.63 / 1393.63 1067.30 / 1067.30 37 / 37 Output Total 700 / 850 1030 / 1555 525 / 525 Balance 693.63 / 543.63 37.30 / -487.70 -488 / -488 Medical Nutrition Assessment Dietitian: Malnutrition Criteria Met Start: 11/20/22 11:25 Freq: Status: Active Protocol: Document 11/28/22 10:28 AG (Rec: 11/28/22 10:28 AG [id number]) Nutrition Malnutrition Evidence of Malnutrition Exists Yes Malnutrition (severe): Chronic Evidenced By Suboptimal Energy Intake ( Severe),Weight Loss (Severe), Physical Changes (Moderate) Intake Problem Inadequate Oral Intake Etiology related to chewing/swallowing difficulty Signs/Symptoms as evidenced by NPO x 2 days Status Active Problem Clinical Problem Chronic Disease or Condition Related Malnutrition Etiology Severe protein-calorie malnutrition in the context of chronic disease related to inadequate oral/energy intake Signs/Symptoms as evidenced by estimated PO intake 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, muscle/fat wasting visible in face, upper/lower extremities and torso and weight loss ~9% x less than 6 months with fluid likely masking additional wt loss Status Active Problem Recommendation Dietitian Recommendations/Changes Will maintain NPO status until appropriate for PO intake; recommend cardiac diet when medically indicated- texture/ consistency modifications per DUMB WAITER OPERATOR Lab / Micro Data Result Diagrams: 11/29/22 02:40 11/29/22 02:40 Labs: Laboratory Results - last 24 hr 11/28/22 13:40: APTT 46.3 H 11/28/22 20:20: APTT 76.6 H 11/29/22 02:40: APTT 73.9 H 11/29/22 02:40: WBC 16.3 H, RBC 4.53, Hgb 10.3 L, Hct 34.2 L, MCV 75.5 L, MCH 22.7 L, MCHC 30.1 L, RDW Std Deviation 78.5 H, RDW Coeff of Angie 30.1 H, Plt Count 579 H, Immature Gran % (Auto) 1.200 H, Neut % (Auto) 91.8 H, Lymph % (Au to) 2.0 L, [place] % (Auto) 4.9, Eos % (Auto) 0.0, Baso % (Auto) 0.1, Absolute N euts (auto) 15.0 H, Absolute Lymphs (auto) 0.32 L, Nucleated RBC % 0, Platelet Estimate MOD INC, Anisocytosis 3+, Microcytosis 1+ 11/29/22 02:40: Sodium 131 L, Potassium 3.8, Chloride 98, Carbon Dioxide 34.0 H, Anion Gap -1 L, BUN 16, Creatinine 0.36 L, Estim Creat Clear Calc 121.74, Est GFR (MDRD) Af Amer 236, Est GFR (MDRD) Non-Af 195, BUN/Creatinine Ratio 45.1 H, Glucose 91, Calcium 8.3 L Micro: Microbiology 11/26/22 13:52 Fluid - Thoracentesis Fluid Gram Stain - Final 11/26/22 13:52 Fluid - Thoracentesis Fluid Body Fluid Culture - Preliminary No growth-Final to follow 11/26/22 13:52 Fluid - Thoracentesis Fluid Anaerobic Culture - Preliminary No growth in 48 hours. 11/22/22 12:40 Wash - Bronchial Wash Gram Stain - Final 11/22/22 12:40 Wash - Bronchial Wash Respiratory Culture - Final Culture exhibits no growth. 11/22/22 12:40 Wash - Bronchial Wash Gram Stain - Final 11/22/22 12:40 Wash - Bronchial Wash Respiratory Culture - Final Culture exhibits no growth. 11/20/22 15:55 Sputum, Expectorated/Coughed Gram Stain - Final 11/20/22 15:55 Sputum, Expectorated/Coughed Respiratory Culture - Final Streptococcus pneumoniae 11/21/22 16:35 Sputum, Induced/Lukens Gram Stain - Final 11/21/22 16:35 Sputum, Induced/Lukens Respiratory Culture - Final Presumptive C albicans 11/20/22 14:00 Blood Culture (Wb) - Anticubital Left Bacteria Detection (PCR) - Final Streptococcus pneumoniae 11/20/22 14:00 Blood Culture (Wb) - Anticubital Left Blood Culture - Final Alpha hemolytic organism 11/20/22 13:55 Blood Culture (Wb) - Anticubital Right Blood Culture - Final Streptococcus pneumoniae 11/20/22 13:50 Urine Catheter - Catheter Urine Culture - Final Culture exhibits no growth. 11/20/22 14:57 Mucosa - Nasopharyngeal Influenza Types A,B Direct FA (SAMANTHA) - Final 11/20/22 13:50 Urine Catheter - Catheter Legionella Antigen - Final 11/20/22 13:50 Urine Catheter - Catheter Streptococcus pneumoniae Antigen (M - Final Radiography Diagnostic Testing: Radiology Impression Chest X-Ray 11/29/22 06:32 IMPRESSION: 1. Pleural effusions with overlying infiltration or atelectasis, not definitely changed. 2. PICC line in place. Electronically Signed: Kevyn Bowers MD at 7:25 EDT , Rhythm Strip Rhythm Strip: Sinus Tach Rate: 109 Physical Exam Narrative Patient is awake and alert. Extubated on 11/27/2022. Right pinna is erythematous and warm but no tenderness. Small scab present but no active wound or ulcer. Physical exam General: Alert, simple questions, Cooperative HEENT: Atraumatic, PERRLA, EOMI, Normocephalic Oral: ET and OG tube. Neck: Supple, No JVD, Negative Carotid Bruits Lungs: Air entry diminished in bilateral lung bases. On vent support. crepitations. Cardiovascular: Sinus , Normal S1, Normal S2, No murmurs Abdomen: Bowel Sounds Present, Soft, Non Tender, Non-Distended : Andino catheter. Dark color urine. No renal angle tenderness. No suprapubic tenderness. Extremities: No edema, Capillary Refill Less than 3 Seconds Skin: No rashes, No breakdown Musculoskeletal: No Tenderness to Palpation of Joints or Extremities. ROM full. Muscle strength 4/5 at major lower extremity joints Neurological: Cranial nerves II-XII grossly intact, DTR 2+/4 Psych/Mental Status: Flat affect. Assessment & Plan Assessment/Plan (1) Acute and chronic respiratory failure with hypoxia: (2) Acute dyspnea: PLAN: Plan 1.? Acute on chronic hypoxic respiratory failure secondary to continued right pleural effusion and community-acquired pneumonia and strep bacteremia with septic shock Patient also had mild PE with heart strain as documented in CTPA chest subsegmental pulmonary embolism in the right upper lobe. Less likely cardiogenic shock. Patient patient had right thoracocentesis 525 ml of stephen-colored fluid drained on 11/26/2022. ? Blood cultures demonstrates strep pneumonia ?Continue broad spectrum antibiotics ?Continue diuretics depending upon hemodynamics and kidney function ? Continue with anticoagulation for subsegmental PEs, echo did demonstrate right heart strain 11/27: Patient is extubated today. Prior to that patient weaned off sedative and Levophed. On midodrine. On IV meropenem. 11/28: Patient was extubated yesterday. Very weak and fatigued. PT and OT. Thoracocentesis and bronc culture does not show any growth. Urine output 350 mL since midnight. 850 mL last 24 hours yesterday 11/29: Patient on oxygen nasal cannula. Tmax 99.2 Fahrenheit. On Bumex 1 mg daily. Amiodarone 200 mg twice daily baby aspirin Plavix, and atorvastatin. 2.? CAD status post stent/HTN/HLD/chronic diastolic CHF/paroxysmal A-fib ? Can continue with aspirin via G-tube as well as Lipitor ?Weaned off norepinephrine. BP 115/72. On IV heparin drip. 11/28: Heart rate is controlled. Patient amiodarone drip changed to amiodarone oral. 3. Oropharyngeal dysphagia: Patient failed swallow. GI is consulted for PEG tu be. On D5W for nutrition. 11/29: Seen by GI Dr. Friend. Plan for PEG tube tomorrow AM. Hold heparin drip midnight today. 3.? Hypothyroidism ? Continue with Synthroid 4.? Severe chronic protein calorie malnutrition ? Continue with nutritional evaluation 5.? GERD ? Stable ? Continue with PPI DVT: Heparin drip Charges/Coding Visit Charges Inpatient E&M: 52294 Subs Hosp L3
[2022-11-29] MEDS: 0.9% Saline Lock 10 ML Syringe IV (07:38)
[2022-11-29] MEDS: Levothyroxine 88 MCG Tablet 132 MCG GT (07:42)
[2022-11-29] MEDS: Aspirin 81 MG TAB.CHEW PO (07:42)
[2022-11-29] MEDS: Midodrine HCl 5 MG Tablet 10 MG PO ×3 (07:43→16:13)
[2022-11-29] MEDS: Bumetanide 0.5 MG Tablet PO (10:14)
[2022-11-29] MEDS: Dextrose 5%/0.9% NaCl 1,000 ML 60 ML IV (10:14)
[2022-11-29] MEDS: Clopidogrel Bisulfate 75 MG Tablet PO (10:15)
[2022-11-29] MEDS: Amiodarone 200 MG Tablet PO ×2 (10:15→21:45)
--- NOTE | 2022-11-29 15:03 | PCM.PROGNOTE ---
Subjective Subjective Patient had some respiratory distress overnight and was placed on BiPAP. At this time she is on nasal oxygen and able to speak appropriately. She does have a mild cough. She denies any chest pain or shortness of breath at this time. Her son is at the bedside. Objective Data Objective Data Vital Signs: Vital Signs Temp Pulse Resp BP Pulse Ox O2 Del Method O2 Flow Rate 99.5 F H 79 24 H 106/65 94 Nasal Cannula 5 11/29/22 14:00 11/29/22 14:00 11/29/22 14:00 11/29/22 14:00 11/29/22 14:00 11/29/22 14:00 11/29/22 14:00 FiO2 40 11/29/22 06:00 Oxygen Flow Rate (L/min) 5 Oxygen Delivery Method Nasal Cannula Weight: 102 lb 1.184 oz Body Mass Index (BMI) 21.4 Intake & Output: Intake and Output for Last 24 Hours 11/27/22 11/28/22 11/29/22 23:59 23:59 23:59 Intake Total 1393.63 / 1393.63 1067.30 / 1067.30 1628 / 1628 Output Total 700 / 850 1030 / 1555 2150 / 2150 Balance 693.63 / 543.63 37.30 / -487.70 -522 / -522 Medical Nutrition Assessment Dietitian: Malnutrition Criteria Met Start: 11/20/22 11:25 Freq: Status: Active Protocol: Document 11/28/22 10:28 (Rec: 11/28/22 10:28 [id number]) Nutrition Malnutrition Evidence of Malnutrition Exists Yes Malnutrition (severe): Chronic Evidenced By Suboptimal Energy Intake ( Severe),Weight Loss (Severe), Physical Changes (Moderate) Intake Problem Inadequate Oral Intake Etiology related to chewing/swallowing difficulty Signs/Symptoms as evidenced by NPO x 2 days Status Active Problem Clinical Problem Chronic Disease or Condition Related Malnutrition Etiology Severe protein-calorie malnutrition in the context of chronic disease related to inadequate oral/energy intake Signs/Symptoms as evidenced by estimated PO intake meeting <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, muscle/fat wasting visible in face, upper/lower extremities and torso and weight loss ~9% x less than 6 months with fluid likely masking additional wt loss Status Active Problem Recommendation Dietitian Recommendations/Changes Will maintain NPO status until appropriate for PO intake; recommend cardiac diet when medically indicated- texture/ consistency modifications per ENTERPRISE RECORDS ANALYST Lab / Micro Data Result Diagrams: 11/29/22 02:40 11/29/22 02:40 Labs: Laboratory Results - last 24 hr 11/28/22 20:20: APTT 76.6 H 11/29/22 02:40: APTT 73.9 H 11/29/22 02:40: WBC 16.3 H, RBC 4.53, Hgb 10.3 L, Hct 34.2 L, MCV 75.5 L, MCH 22.7 L, MCHC 30.1 L, RDW Std Deviation 78.5 H, RDW Coeff of Angie 30.1 H, Plt Count 579 H, Immature Gran % (Auto) 1.200 H, Neut % (Auto) 91.8 H, Lymph % (Auto) 2.0 L, Banner % (Auto) 4.9, Eos % (Auto) 0.0, Baso % (Auto) 0.1, Absolute Neuts (auto) 15.0 H, Absolute Lymphs (auto) 0.32 L, Nucleated RBC % 0, Platelet Estimate MOD INC, Anisocytosis 3+, Microcytosis 1+ 11/29/22 02:40: Sodium 131 L, Potassium 3.8, Chloride 98, Carbon Dioxide 34.0 H, Anion Gap -1 L, BUN 16, Creatinine 0.36 L, Estim Creat Clear Calc 121.74, Est GFR (MDRD) Af Amer 236, Est GFR (MDRD) Non-Af 195, BUN/Creatinine Ratio 45.1 H, Glucose 91, Calcium 8.3 L Micro: Microbiology 11/29/22 10:55 Stool C. difficile DNA Amplification - Final 11/26/22 13:52 Fluid - Thoracentesis Fluid Gram Stain - Final 11/26/22 13:52 Fluid - Thoracentesis Fluid Body Fluid Culture - Preliminary No growth-Final to follow 11/26/22 13:52 Fluid - Thoracentesis Fluid Anaerobic Culture - Preliminary No growth in 48 hours. 11/22/22 12:40 Wash - Bronchial Wash Gram Stain - Final 11/22/22 12:40 Wash - Bronchial Wash Respiratory Culture - Final Culture exhibits no growth. 11/22/22 12:40 Wash - Bronchial Wash Gram Stain - Final 11/22/22 12:40 Wash - Bronchial Wash Respiratory Culture - Final Culture exhibits no growth. 11/20/22 15:55 Sputum, Expectorated/Coughed Gram Stain - Final 11/20/22 15:55 Sputum, Expectorated/Coughed Respiratory Culture - Final Streptococcus pneumoniae 11/21/22 16:35 Sputum, Induced/Lukens Gram Stain - Final 11/21/22 16:35 Sputum, Induced/Lukens Respiratory Culture - Final Presumptive C albicans 11/20/22 14:00 Blood Culture (Wb) - Anticubital Left Bacteria Detection (PCR) - Final Streptococcus pneumoniae 11/20/22 14:00 Blood Culture (Wb) - Anticubital Left Blood Culture - Final Alpha hemolytic organism 11/20/22 13:55 Blood Culture (Wb) - Anticubital Right Blood Culture - Final Streptococcus pneumoniae 11/20/22 13:50 Urine Catheter - Catheter Urine Culture - Final Culture exhibits no growth. 11/20/22 14:57 Mucosa - Nasopharyngeal Influenza Types A,B Direct FA (SAMANTHA) - Final 11/20/22 13:50 Urine Catheter - Catheter Legionella Antigen - Final 11/20/22 13:50 Urine Catheter - Catheter Streptococcus pneumoniae Antigen (M - Final Radiography Diagnostic Testing: Radiology Impression Chest X-Ray 11/29/22 06:32 IMPRESSION: 1. Pleural effusions with overlying infiltration or atelectasis, not definitely changed. 2. PICC line in place. Electronically Signed: Kevyn Bowers MD at 7:25 EDT Reading Location ID and State: [facility] / [place] , Service support , Rhythm Strip Rhythm Strip: Sinus Tach Rate: 109 Physical Exam Narrative Patient is awake and alert. Extubated on 11/27/2022. Physical exam General: Alert, simple questions, Cooperative HEENT: Atraumatic, PERRLA, EOMI, Normocephalic Oral: ET and OG tube. Neck: Supple, No JVD, Negative Carotid Bruits Lungs: Air entry diminished in bilateral lung bases. On vent support. crepitations. Cardiovascular: Sinus , Normal S1, Normal S2, No murmurs Abdomen: Bowel Sounds Present, Soft, Non Tender, Non-Distended : Andino catheter. Dark color urine. No renal angle tenderness. No suprapubic tenderness. Extremities: No edema, Capillary Refill Less than 3 Seconds Skin: No rashes, No breakdown Musculoskeletal: No Tenderness to Palpation of Joints or Extremities. ROM full. Muscle strength 4/5 at major lower extremity joints Neurological: Cranial nerves II-XII grossly intact, DTR 2+/4 Psych/Mental Status: Flat affect. Assessment & Plan Assessment/Plan (1) Acute and chronic respiratory failure with hypoxia: (2) Acute dyspnea: (3) Oropharyngeal dysphagia: (4) Cachexia: PLAN: Plan 67-year-old with history of chronic bilateral pleural effusions who presented with acute on chronic hypoxic respiratory failure secondary to continued right pleural effusion and community-acquired pneumonia and strep bacteremia with septic shock. On this admission she was discovered to have a subsegmental pulmonary embolism in the right upper lobe. She was intubated and successfully extubated. She recently failed a swallow study and was determined to have oropharyngeal dysphagia and is not able to orally provide proper nutrition. Recommendation: Percutaneous endoscopic gastrostomy tube placement. Heparin drip should be held tomorrow night on 11/29/2022 at midnight for PEG tube placement on 11/30/2022. I spoke with the hospitalist team at and they are okay with this plan and will keep her on D5W and monitor electrolytes. She is on broad-spectrum antibiotics so she will not need any antibiotics prior to her having PEG tube placement. Charges/Coding Visit Charges Inpatient E&M: 49807 Subs Hosp L3
[2022-11-29] MEDS: Loperamide 2 MG Capsule PO (16:12)
--- NOTE | 2022-11-29 17:31 | PN.CC_ITS ---
Assessment & Plan Assessment/Plan (1) Acute and chronic respiratory failure with hypoxia: PLAN: Patient has a rare and undiagnosed lung (and possibly systemic) disease, undiagnosed by [facility] (see description in my original consult note) and [facility]. Possible amyloid. - She remains stable, postextubation since 11/27. - continue supportive care - Monitor closely - Continue nocturnal noninvasive ventilation as needed at settings of 12/6, 40% FiO2 - Continue daytime nasal O2 at 4 - 6 L/min baseline and HFNCfor any exertion. - Continue incentive spirometry, currently able to do 510 cc. - may go to PCU in next 24-48h but remains tenuous - PT, OT to continue - PEG tube - Follow up final path results from thora and bronch (2) History of coronary artery stent placement: PLAN: Stable (3) Bronchiectasis, non-tuberculous: PLAN: Stable, sputum is nonpurulent, cultures from thoracentesis and bronchoscopy last week are no growth. (4) Recurrent pleural effusion: PLAN: The left effusion is loculated and unable to be tapped. The right was tapped on 11/26/2022 and had no growth to date. Exudative. Some results still pending. (5) Cachexia: PLAN: PEG tube has been strongly advocated to the patient to allow her to gain strength and thereby hopefully avoid respiratory failure due to inability to cough and manage secretions. - Gastroenterology consulted for PEG tube placement when available. (6) Sepsis due to Streptococcus pneumoniae with acute hypoxic respiratory failure and septic shock: PLAN: Septic shock is resolved. - Patient completed meropenem today. Blood pressure normalized, currently on midodrine. 10 mg 3 times daily - Surveillance cultures as needed PLAN: Plan As above Routine ICU prophylaxis with aspirin 81 mg daily, pantoprazole 40 mg daily IV, Zofran as needed 2 mg every 8 hours, polyethylene glycol 17 g twice daily, senna COPD treatment with budesonide 180 mcg twice daily, ipratropium nebulizer every 6 hours while awake, Singulair 10 mg daily, methylprednisolone 40 mg IV daily, oxygen Stent and cardiac prophylaxis with Plavix 75 mg daily, metoprolol 12.5 mg twice daily hold for hypotension; spironolactone 25 mg daily, potassium chloride 60 p.o. twice daily. Atorvastatin 40 mg at bedtime, Bumex 1 mg daily Continue treating hypothyroidism with levothyroxine 132 mcg daily on Wednesday and 88 mg daily other days Cut the dose of lorazepam by half because of the patient's small size and drug distribution Patient is on heparin drip for atrial fibrillation but has remained in normal sinus rhythm for a few days. Amiodarone 200 mg p.o. twice daily with drip stopped today, stop heparin drip. Critical care time spent with patient at bedside, review of documentation, lab results, radiology and other test results, discussion with colleagues and ancillary staff, clinical management of patient, and updating family if appl icable, was 40 minutes[place] [address]. Subjective Subjective Patient is doing well today looks stronger, able to suction her secretions with a Yankauer, no complaint of pain, will try high flow nasal cannula with exercise since she still desaturates on 6 L but was up at bedside today. Cough is productive of scant amounts of clear sputum. I discussed PEG tube for approximately 15 minutes, pros and cons, and encouraged its placement earlier this week by gastroenterology to allow stable, constant nutrition and hydration without needing IV access. Seen and examined at bedside, reviewed data and discussed with ICU staff interdisciplinary rounds. Objective Data Objective Data Vital Signs: Vital Signs Temp Pulse Resp BP Pulse Ox O2 Del Method O2 Flow Rate 99.2 F H 69 21 H 108/82 H 99 Room Air 4 11/29/22 16:00 11/29/22 17:00 11/29/22 17:00 11/29/22 17:00 11/29/22 17:00 11/29/22 17:00 11/29/22 16:00 FiO2 40 11/29/22 06:00 Oxygen Flow Rate (L/min) 4 Oxygen Delivery Method nasal cannula, and high flow nasal cannula with exercise up to 15 L/min. Weight: 102 lb 1.184 oz Body Mass Index (BMI) 21.4 Intake & Output: Intake and Output for Last 24 Hours 11/27/22 11/28/22 11/29/22 23:59 23:59 23:59 Intake Total 1393.63 / 1393.63 1067.30 / 1067.30 1648 / 1648 Output Total 700 / 850 1030 / 1555 2850 / 2850 Balance 693.63 / 543.63 37.30 / -487.70 -1202 / -1202 total I's and O's today is net +693 cc. Medical Nutrition Assessment Dietitian: Malnutrition Criteria Met Start: 11/20/22 11:25 Freq: Status: Active Protocol: Document 11/28/22 10:28 (Rec: 11/28/22 10:28 AG [id number]) Nutrition Malnutrition Evidence of Malnutrition Exists Yes Malnutrition (severe): Chronic Evidenced By Suboptimal Energy Intake ( Severe),Weight Loss (Severe), Physical Changes (Moderate) Intake Problem Inadequate Oral Intake Etiology related to chewing/swallowing difficulty Signs/Symptoms as evidenced by NPO x 2 days Status Active Problem Clinical Problem Chronic Disease or Condition Related Malnutrition Etiology Severe protein-calorie malnutrition in the context of chronic disease related to inadequate oral/energy intake Signs/Symptoms as evidenced by estimated PO intake meeting <50% 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, muscle/fat wasting visible in face, upper/lower extremities and torso and weight loss ~9% x less than 6 months with fluid likely masking additional wt loss Status Active Problem Recommendation Dietitian Recommendations/Changes Will maintain NPO status until appropriate for PO intake; recommend cardiac diet when medically indicated- texture/ consistency modifications per ELECTRICAL TECHNICIAN Lab / Micro Data Attestation: I reviewed the patient's lab results. Lab results narrative: White count continues to improve. Patient started on D5 normal saline at 60 cc/h due to hyponatremia and pending PEG tube placement this week. All cultures negative to date Result Diagrams: 11/29/22 02:40 11/29/22 02:40 Labs: Laboratory Results - last 24 hr 11/28/22 20:20: APTT 76.6 H 11/29/22 02:40: APTT 73.9 H 11/29/22 02:40: WBC 16.3 H, RBC 4.53, Hgb 10.3 L, Hct 34.2 L, MCV 75.5 L, MCH 22.7 L, MCHC 30.1 L, RDW Std Deviation 78.5 H, RDW Coeff of Angie 30.1 H, Plt Count 579 H, Immature Gran % (Auto) 1.200 H, Neut % (Auto) 91.8 H, Lymph % (Aut o) 2.0 L, Meagher % (Auto) 4.9, Eos % (Auto) 0.0, Baso % (Auto) 0.1, Absolute Neuts (auto) 15.0 H, Absolute Lymphs (auto) 0.32 L, Nucleated RBC % 0, Platelet Estimate MOD INC, Anisocytosis 3+, Microcytosis 1+ 11/29/22 02:40: Sodium 131 L, Potassium 3.8, Chloride 98, Carbon Dioxide 34.0 H, Anion Gap -1 L, BUN 16, Creatinine 0.36 L, Estim Creat Clear Calc 121.74, Est GFR (MDRD) Af Amer 236, Est GFR (MDRD) Non-Af 195, BUN/Creatinine Ratio 45.1 H, Glucose 91, Calcium 8.3 L Micro: Microbiology 11/29/22 10:55 Stool C. difficile DNA Amplification - Final 11/26/22 13:52 Fluid - Thoracentesis Fluid Gram Stain - Final 11/26/22 13:52 Fluid - Thoracentesis Fluid Body Fluid Culture - Preliminary No growth-Final to follow 11/26/22 13:52 Fluid - Thoracentesis Fluid Anaerobic Culture - Preliminary No growth in 48 hours. 11/22/22 12:40 Wash - Bronchial Wash Gram Stain - Final 11/22/22 12:40 Wash - Bronchial Wash Respiratory Culture - Final Culture exhibits no growth. 11/22/22 12:40 Wash - Bronchial Wash Gram Stain - Final 11/22/22 12:40 Wash - Bronchial Wash Respiratory Culture - Final Culture exhibits no growth. 11/20/22 15:55 Sputum, Expectorated/Coughed Gram Stain - Final 11/20/22 15:55 Sputum, Expectorated/Coughed Respiratory Culture - Final Streptococcus pneumoniae 11/21/22 16:35 Sputum, Induced/Lukens Gram Stain - Final 11/21/22 16:35 Sputum, Induced/Lukens Respiratory Culture - Final Presumptive C albicans 11/20/22 14:00 Blood Culture (Wb) - Anticubital Left Bacteria Detection (PCR) - Final Streptococcus pneumoniae 11/20/22 14:00 Blood Culture (Wb) - Anticubital Left Blood Culture - Final Alpha hemolytic organism 11/20/22 13:55 Blood Culture (Wb) - Anticubital Right Blood Culture - Final Streptococcus pneumoniae 11/20/22 13:50 Urine Catheter - Catheter Urine Culture - Final Culture exhibits no growth. 11/20/22 14:57 Mucosa - Nasopharyngeal Influenza Types A,B Direct FA (SAMANTHA) - Final 11/20/22 13:50 Urine Catheter - Catheter Legionella Antigen - Final 11/20/22 13:50 Urine Catheter - Catheter Streptococcus pneumoniae Antigen (M - Final Radiography Diagnostic Testing: Radiology Impression Chest X-Ray 11/29/22 06:32 IMPRESSION: 1. Pleural effusions with overlying infiltration or atelectasis, not definitely changed. 2. PICC line in place. Electronically Signed: Kevyn Bowers MD at 7:25 EDT , Rhythm Strip Rhythm Strip: Sinus Tach Rate: 109 Physical Exam Narrative Well-developed cachectic, no acute distress. Diffusely weak but appears slightly stronger and her voice is stronger. Cough is still partially effective needing Yankauer to help raise completely. HEENT unchanged Chest has no rhonchi or wheezes. Diminished breath sounds, unable to take a deep breath Incentive spirometry today is 510 cc. She also uses the PAP device. Heart normal S1-S2 sinus rhythm on monitor Abdomen is soft nontender Extremities have no clubbing cyanosis or edema Neurologic is nonfocal patient is alert and oriented and converses well but weakly in 5 word sentences. Charges/Coding Visit Charges Inpatient E&M: 67010 Subs Hosp L3
[2022-11-29] MEDS: Zolpidem Tartrate 5 MG Tablet PO (21:45)
[2022-11-30] VITALS (34 sets, daily range): BP systolic 83–120; BP diastolic 54–85; PULSE 56–86; RESP 13–23; TEMP 36.4–37.4; O2SAT 90–100; BMI 21.7
[2022-11-30] MEDS: Dextrose 5%/0.9% NaCl 1,000 ML 60 ML IV (02:55)
[2022-11-30 04:06] LABS: Absolute Lymphocyte Count 0.31 X10^3/uL (0.83-4.51); Basophil# 0.01 X10^3/uL; Basophil% 0.1 % (0-1); Eosinophil# 0.02 X10^3/uL; Eosinophils% 0.1 % (0-5); Hematocrit 30.9 % (37-47); Hemoglobin 9.2 g/dL (12.0-15.0); Lymphocyte # 0.31 X10^3/ul (0.83-4.51); Lymphocyte % 2.3 % (19-41); Mean Corp Hgb Conc 29.8 g/dL (32-36); Mean Corpuscular Hgb 22.8 pg (27.0-32.0); Mean Corpuscular Volume 76.5 fL (81-99); Mean Platelet Vol. 11.7 fl (6.2-12.0); Monocyte# 0.95 X10^3/uL; Monocyte% 7.1 % (0-10); NRBC Flagged by Analyzer 0 % (0-5); Neutrophil # 11.98 X10^3/uL (2.7-7.7); Neutrophil % 89.3 % (47-70); POSITIVE DIFFERENTIAL YES; POSITIVE MORPHOLOGY YES; Platelet Count 579 K/mm3 (150-450); RBC Distribution Width CV 29.9 % (11.6-14.6); Red Blood Count 4.04 M/mm3 (4.2-5.4); White Blood Count 13.4 K/mm3 (4.4-11.0)
[2022-11-30 04:10] LABS: Anion Gap 1 (5-15); BUN 18 mg/dL (7-18); BUN/Creat Ratio 50.1 RATIO (10-20); Calcium,Total 7.9 mg/dL (8.5-10.1); Chloride 103 mmol/L (98-107); Creatinine, Serum 0.36 mg/dL (0.55-1.02); EST Glomerular Filtration Rate 193 mL/min (>60); Est Glom Filt Rate - Afr Amer 233 mL/min (>60); Estimated Creatinine Clearance 113.87 ml/min; Glucose 98 mg/dL (74-106); Potassium 3.7 mmol/L (3.5-5.1); Sodium Level 137 mmol/L (136-145)
[2022-11-30 04:19] LABS: Differential Indicated SCAN CRITERIA MET
[2022-11-30 04:30] LABS: Platelet Estimate MOD INC (ADEQ)
[2022-11-30 04:31] LABS: Partial Thromboplast Time 63.2 Seconds (24.1-36.2)
[2022-11-30] MEDS: 0.9% Saline Lock 10 ML Syringe IV ×2 (06:06→20:53)
[2022-11-30] MEDS: Levothyroxine 88 MCG Tablet GT (06:06)
[2022-11-30] MEDS: levoFLOXacin IV 500 MG/100 ML BAG 100 MG IV (06:07)
[2022-11-30] MEDS: Ipratropium 0.5 MG/2.5 ML SOLUTION INHALATION ×3 (07:34→19:40)
--- NOTE | 2022-11-30 08:00 | PCM.PN.HOSP ---
Reason for Visit Reason for Visit: Diagnoses Sepsis due to Streptococcus pneumoniae (11/20/22) Chronic obstructive pulmonary disease, unspecified (11/20/22) Bronchiectasis, uncomplicated (11/20/22) Pleural effusion, not elsewhere classified (11/20/22) Acute respiratory failure with hypoxia (11/20/22) Acute and chronic respiratory failure with hypoxia (11/20/22) Atelectasis (11/20/22) Dyspnea, unspecified (11/20/22) Dysphagia, oropharyngeal phase (11/20/22) Cachexia (11/20/22) Severe sepsis with septic shock (11/20/22) Personal history of other diseases of the circulatory system (11/20/22) Presence of coronary angioplasty implant and graft (11/20/22) Dependence on respirator [ventilator] status (11/20/22) Follow-up for acute on chronic hypoxic respiratory failure. Recurrent left pleural effusion, bronchiectasis. Objective Data Objective Data Vital Signs: Vital Signs Temp Pulse Resp BP Pulse Ox O2 Del Method O2 Flow Rate 98.4 F 82 19 H 116/69 96 Nasal Cannula 3 11/30/22 06:00 11/30/22 07:00 11/30/22 07:00 11/30/22 07:00 11/30/22 07:00 11/30/22 07:00 11/30/22 07:00 FiO2 30 11/30/22 03:00 Oxygen Flow Rate (L/min) 3 Oxygen Delivery Method Nasal Cannula Weight: 103 lb 2.821 oz Body Mass Index (BMI) 21.7 Intake & Output: Intake and Output for Last 24 Hours 11/28/22 11/29/22 11/30/22 23:59 23:59 23:59 Intake Total 1067.30 / 1067.30 1773.2 / 1773.2 1100 / 1100 Output Total 1030 / 1555 3050 / 3050 100 / 100 Balance 37.30 / -487.70 -1276.8 / -1276.8 1000 / 1000 Medical Nutrition Assessment Dietitian: Malnutrition Criteria Met Start: 11/20/22 11:25 Freq: Status: Active Protocol: Document 11/28/22 10:28 (Rec: 11/28/22 10:28 [id number]) Nutrition Malnutrition Evidence of Malnutrition Exists Yes Malnutrition (severe): Chronic Evidenced By Suboptimal Energy Intake ( Severe),Weight Loss (Severe), Physical Changes (Moderate) Intake Problem Inadequate Oral Intake Etiology related to chewing/swallowing difficulty Signs/Symptoms as evidenced by NPO x 2 days Status Active Problem Clinical Problem Chronic Disease or Condition Related Malnutrition Etiology Severe protein-calorie malnutrition in the context of chronic disease related to inadequate oral/energy intake Signs/Symptoms as evidenced by estimated PO intake meeting <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, muscle/fat wasting visible in face, upper/lower extremities and torso and weight loss ~9% x less than 6 months with fluid likely masking additional wt loss Status Active Problem Recommendation Dietitian Recommendations/Changes Will maintain NPO status until appropriate for PO intake; recommend cardiac diet when medically indicated- texture/ consistency modifications per ORTHOPAEDIC NURSE Lab / Micro Data Result Diagrams: 11/30/22 03:45 11/30/22 03:45 Labs: Laboratory Results - last 24 hr 11/30/22 03:45: APTT 63.2 H 11/30/22 03:45: WBC 13.4 H, RBC 4.04 L, Hgb 9.2 L, Hct 30.9 L, MCV 76.5 L, MCH 22.8 L, MCHC 29.8 L, RDW Std Deviation 79.0 H, RDW Coeff of Angie 29.9 H, Plt Count 579 H, MPV 11.7, Immature Gran % (Auto) 1.100 H, Neut % (Auto) 89.3 H, Lymph % (Auto) 2.3 L, [place] % (Auto) 7.1, Eos % (Auto) 0.1, Baso % (Auto) 0.1, Absolute Neuts (auto) 12.0 H, Absolute Lymphs (auto) 0.31 L, Nucleated RBC % 0, Differential Comment COMMENT, Platelet Estimate MOD INC 11/30/22 03:45: Sodium 137, Potassium 3.7, Chloride 103, Carbon Dioxide 33.0 H, Anion Gap 1 L, BUN 18, Creatinine 0.36 L, Estim Creat Clear Calc 113.87, Est GFR (MDRD) Af Amer 233, Est GFR (MDRD) Non-Af 193, BUN/Creatinine Ratio 50.1 H, Glucose 98, Calcium 7.9 L Micro: Microbiology 11/29/22 10:55 Stool C. difficile DNA Amplification - Final 11/26/22 13:52 Fluid - Thoracentesis Fluid Gram Stain - Final 11/26/22 13:52 Fluid - Thoracentesis Fluid Body Fluid Culture - Preliminary No growth-Final to follow 11/26/22 13:52 Fluid - Thoracentesis Fluid Anaerobic Culture - Preliminary No growth in 48 hours. 11/22/22 12:40 Wash - Bronchial Wash Gram Stain - Final 11/22/22 12:40 Wash - Bronchial Wash Respiratory Culture - Final Culture exhibits no growth. 11/22/22 12:40 Wash - Bronchial Wash Gram Stain - Final 11/22/22 12:40 Wash - Bronchial Wash Respiratory Culture - Final Culture exhibits no growth. 11/20/22 15:55 Sputum, Expectorated/Coughed Gram Stain - Final 11/20/22 15:55 Sputum, Expectorated/Coughed Respiratory Culture - Final Streptococcus pneumoniae 11/21/22 16:35 Sputum, Induced/Lukens Gram Stain - Final 11/21/22 16:35 Sputum, Induced/Lukens Respiratory Culture - Final Presumptive C albicans 11/20/22 14:00 Blood Culture (Wb) - Anticubital Left Bacteria Detection (PCR) - Final Streptococcus pneumoniae 11/20/22 14:00 Blood Culture (Wb) - Anticubital Left Blood Culture - Final Alpha hemolytic organism 11/20/22 13:55 Blood Culture (Wb) - Anticubital Right Blood Culture - Final Streptococcus pneumoniae 11/20/22 13:50 Urine Catheter - Catheter Urine Culture - Final Culture exhibits no growth. 11/20/22 14:57 Mucosa - Nasopharyngeal Influenza Types A,B Direct FA (SAMANTHA) - Final 11/20/22 13:50 Urine Catheter - Catheter Legionella Antigen - Final 11/20/22 13:50 Urine Catheter - Catheter Streptococcus pneumoniae Antigen (M - Final Rhythm Strip Rhythm Strip: Sinus Tach Rate: 109 Physical Exam Narrative Patient is awake and alert. Extubated on 11/27/2022. Right penalize improving. Physical exam General: Alert, responds appropriately to simple questions, Cooperative HEENT: Atraumatic, PERRLA, EOMI, Normocephalic Oral: ET and OG tube. Neck: Supple, No JVD, Negative Carotid Bruits Lungs: Air entry diminished in bilateral lung bases. Coarse crepitations. Cardiovascular: Sinus , Normal S1, Normal S2, systolic murmur at LUSB Abdomen: Bowel Sounds Present, Soft, Non Tender, Non-Distended : Andino catheter. Dark urine. No renal angle tenderness. No suprapubic tenderness. Extremities: No edema, Capillary Refill Less than 3 Seconds Skin: No rashes, No breakdown Musculoskeletal: No Tenderness to Palpation of Joints or Extremities. ROM full. Muscle strength 4/5 at major lower extremity joints Neurological: Cranial nerves II-XII grossly intact, DTR 2+/4 Psych/Mental Status: Flat affect. Assessment & Plan Assessment/Plan (1) Acute and chronic respiratory failure with hypoxia: (2) Acute dyspnea: PLAN: Plan 1.? Acute on chronic hypoxic respiratory failure secondary to continued right pleural effusion and community-acquired pneumonia and strep bacteremia with septic shock Patient also had mild PE with heart strain as documented in CTPA chest subsegmental pulmonary embolism in the right upper lobe. Less likely cardiogenic shock. Patient patient had right thoracocentesis 525 ml of stephen-colored fluid drained on 11/26/2022. ? Blood cultures demonstrates strep pneumonia ?Continue broad spectrum antibiotics ?Continue diuretics depending upon hemodynamics and kidney function ? Continue with anticoagulation for subsegmental PEs, echo did demonstrate right heart strain 11/27: Patient is extubated today. Prior to that patient weaned off sedative and Levophed. On midodrine. On IV meropenem. 11/28: Patient was extubated yesterday. Very weak and fatigued. PT and OT. Thoracocentesis and bronc culture does not show any growth. Urine output 350 mL since midnight. 850 mL last 24 hours yesterday 11/29: Patient on oxygen nasal cannula. Tmax 99.2 Fahrenheit. On Bumex 1 mg daily. Amiodarone 200 mg twice daily baby aspirin Plavix, and atorvastatin. 11/30: Patient has a rare and undiagnosed probably systemic disease and diagnosed by [facility] by extensive work-up. Patient on oxygen support on NIPPV at night. 2.? CAD status post stent/HTN/HLD/chronic diastolic CHF/paroxysmal A-fib ? Can continue with aspirin via G-tube as well as Lipitor ?Weaned off norepinephrine. BP 115/72. On IV heparin drip. 11/28: Heart rate is controlled. Patient amiodarone drip changed to amiodarone oral. 3. Oropharyngeal dysphagia: Patient failed swallow. GI is consulted for PEG tube. On D5W for nutrition. 11/29: Seen by GI Dr. Carter. Plan for PEG tube tomorrow AM. Hold heparin drip midnight today. 11/30: Plan for PEG tube today. Patient will stay in ICU after PEG tube for monitoring and then transferred to PCU. Discussed with pensions retirement plan specialist. 3.? Hypothyroidism ? Continue with Synthroid 4.? Severe chronic protein calorie malnutrition ? Continue with nutritional evaluation 5.? GERD ? Stable ? Continue with PPI DVT: Heparin drip on hold for the procedure. Charges/Coding Visit Charges Inpatient E&M: 01531 Subs Hosp L3
--- NOTE | 2022-11-30 08:16 | PCM.PN.INT ---
Assessment & Plan Assessment/Plan (1) Acute and chronic respiratory failure with hypoxia: (2) History of coronary artery stent placement: (3) Bronchiectasis, non-tuberculous: (4) Recurrent pleural effusion: (5) Cachexia: (6) Sepsis due to Streptococcus pneumoniae with acute hypoxic respiratory failure and septic shock: PLAN: Plan RECOMMENDATIONS: 1. Continue midodrine 2. Completed 10 days of antibiotics 3. Await results of PEG. If tolerates, likely okay to go to floor 4. Continue aggressive pulmonary toileting 5. Will need evaluated by CT surgery for possible pleurodesis 6. PT/OT secondary to debility IMPRESSIONS: 1. Acute on chronic hypoxic respiratory failure secondary to pneumonia and possible amyloid Patient appears to be back to her baseline respiratory status. Patient does have a significant loculated left pleural effusion. Patient may have an element of aspiration adding to complications. We will continue with BiPAP with sleep. Patient will likely need a walking oximetry prior to discharge. Defer to hospitalist on whether patient will be transferred directly from hospital to hospital or follow-up with CT surgery as an outpatient. Endobronchial biopsy specimens are currently pending. Patient may benefit from a VATS evaluation if already undergoing a pleurodesis, but defer to CT surgery 2. Recurrent pleural effusion/bronchiectasis/sepsis secondary to pneumococcus Patient appears to be doing okay at this time. Patient still has significant bronchial secretions, but this would be expected. Patient does have adequate blood pressure at this time. Could consider weaning off of midodrine in the future. Patient has completed a course of antibiotics. 3. Debility/dysphagia Patient with significant cachexia and debility. Patient discussed with GI and has agreed to a PEG tube to standardize nutrition. Patient will likely need a pleurodesis in the future and may benefit from optimization. 4. CAD/COPD/advanced age/anemia/history of iatrogenic pneumothorax Complicates care, management, recovery and prognosis. Patient potentially could go to the floor following PEG tube, but given comorbidities. Would like to evaluate in the ICU prior to her for transfer after PEG. Subjective Subjective Patient did well overnight. Patient remains weak and has been able to tolerate secretions with suctioning. No significant change in respiratory status. Patient did discuss with GI yesterday and has agreed to a PEG tube. Patient has been using BiPAP with sleep and tolerating this well. Patient is not reporting any change in secretion color, consistency or volume. Objective Data Objective Data Vital Signs: Vital Signs Temp Pulse Resp BP Pulse Ox O2 Del Method O2 Flow Rate 37.0 C 80 19 H 106/81 H 96 Nasal Cannula 3 11/30/22 08:00 11/30/22 08:00 11/30/22 08:00 11/30/22 08:00 11/30/22 08:00 11/30/22 08:00 11/30/22 08:00 FiO2 30 11/30/22 03:00 Oxygen Flow Rate (L/min) 3 Oxygen Delivery Method Nasal Cannula Weight: 46.8 kg Body Mass Index (BMI) 21.7 Intake & Output: Intake and Output for Last 24 Hours 11/28/22 11/29/22 11/30/22 23:59 23:59 23:59 Intake Total 1067.30 / 1067.30 1773.2 / 1773.2 1100 / 1100 Output Total 1030 / 1555 3050 / 3050 100 / 100 Balance 37.30 / -487.70 -1276.8 / -1276.8 1000 / 1000 Medical Nutrition Assessment Dietitian: Malnutrition Criteria Met Start: 11/20/22 11:25 Freq: Status: Active Protocol: Document 11/28/22 10:28 (Rec: 11/28/22 10:28 [id number]) Nutrition Malnutrition Evidence of Malnutrition Exists Yes Malnutrition (severe): Chronic Evidenced By Suboptimal Energy Intake ( Severe),Weight Loss (Severe), Physical Changes (Moderate) Intake Problem Inadequate Oral Intake Etiology related to chewing/swallowing difficulty Signs/Symptoms as evidenced by NPO x 2 days Status Active Problem Clinical Problem Chronic Disease or Condition Related Malnutrition Etiology Severe protein-calorie malnutrition in the context of chronic disease related to inadequate oral/energy intake Signs/Symptoms as evidenced by estimated PO intake meeting <50% 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 Result Diagrams: 11/30/22 03:45 11/30/22 03:45 Labs: Laboratory Results - last 24 hr 11/30/22 03:45: APTT 63.2 H 11/30/22 03:45: WBC 13.4 H, RBC 4.04 L, Hgb 9.2 L, Hct 30.9 L, MCV 76.5 L, MCH 22.8 L, MCHC 29.8 L, RDW Std Deviation 79.0 H, RDW Coeff of Angie 29.9 H, Plt Count 579 H, MPV 11.7, Immature Gran % (Auto) 1.100 H, Neut % (Auto) 89.3 H, Lymph % (Auto) 2.3 L, [place] % (Auto) 7.1, Eos % (Auto) 0.1, Baso % (Auto) 0.1, Absolute Neuts (auto) 12.0 H, Absolute Lymphs (auto) 0.31 L, Nucleated RBC % 0, Differential Comment COMMENT, Platelet Estimate MOD INC 11/30/22 03:45: Sodium 137, Potassium 3.7, Chloride 103, Carbon Dioxide 33.0 H, Anion Gap 1 L, BUN 18, Creatinine 0.36 L, Estim Creat Clear Calc 113.87, Est GFR (MDRD) Af Amer 233, Est GFR (MDRD) Non-Af 193, BUN/Creatinine Ratio 50.1 H, Glucose 98, Calcium 7.9 L Micro: Microbiology 11/29/22 10:55 Stool C. difficile DNA Amplification - Final 11/26/22 13:52 Fluid - Thoracentesis Fluid Gram Stain - Final 11/26/22 13:52 Fluid - Thoracentesis Fluid Body Fluid Culture - Preliminary No growth-Final to follow 11/26/22 13:52 Fluid - Thoracentesis Fluid Anaerobic Culture - Preliminary No growth in 48 hours. 11/22/22 12:40 Wash - Bronchial Wash Gram Stain - Final 11/22/22 12:40 Wash - Bronchial Wash Respiratory Culture - Final Culture exhibits no growth. 11/22/22 12:40 Wash - Bronchial Wash Gram Stain - Final 11/22/22 12:40 Wash - Bronchial Wash Respiratory Culture - Final Culture exhibits no growth. 11/20/22 15:55 Sputum, Expectorated/Coughed Gram Stain - Final 11/20/22 15:55 Sputum, Expectorated/Coughed Respiratory Culture - Final Streptococcus pneumoniae 11/21/22 16:35 Sputum, Induced/Lukens Gram Stain - Final 11/21/22 16:35 Sputum, Induced/Lukens Respiratory Culture - Final Presumptive C albicans 11/20/22 14:00 Blood Culture (Wb) - Anticubital Left Bacteria Detection (PCR) - Final Streptococcus pneumoniae 11/20/22 14:00 Blood Culture (Wb) - Anticubital Left Blood Culture - Final Alpha hemolytic organism 11/20/22 13:55 Blood Culture (Wb) - Anticubital Right Blood Culture - Final Streptococcus pneumoniae 11/20/22 13:50 Urine Catheter - Catheter Urine Culture - Final Culture exhibits no growth. 11/20/22 14:57 Mucosa - Nasopharyngeal Influenza Types A,B Direct FA (SAMANTHA) - Final 11/20/22 13:50 Urine Catheter - Catheter Legionella Antigen - Final 11/20/22 13:50 Urine Catheter - Catheter Streptococcus pneumoniae Antigen (M - Final Rhythm Strip Rhythm Strip: Sinus Tach Rate: 61 Physical Exam Const alert and oriented x3 Constitutional Narrative: Mild conversational dyspnea. Suctioning her own secretions General Appearance: frail HEENT normocephalic and head/scalp atraumatic Eyes PERRL, EOMs intact bilaterally and conjunctivae normal Neck supple General: trachea midline Chest inspection of chest normal Resp Resp Narrative: Slightly increased respiratory effort Auscultation: rhonchi throughout (Improves with cough and suctioning) and diminished lung sounds; Negative for rales or wheezes Cardio regular rhythm, S1 normal heart sound and S2 normal heart sound Cardio Narrative: Currently in normal sinus rhythm GI normal to inspection, nondistended, normoactive bowel sounds Extremity no clubbing, cyanosis or edema Skin no rashes or lesions noted Neuro oriented x3, CN's II-XII intact bilaterally, moves all extremities and no focal motor deficits Psych cooperative Charges/Coding Visit Charges Inpatient E&M: 32835 Subs Hosp L3
--- NOTE | 2022-11-30 11:30 | CASEMGMT ---
Social Work clinical updates sent to Parminder Sanchez for determination on acceptance. JACOB Hay
--- NOTE | 2022-11-30 11:46 | OP.CCLET_ITS ---
11/30/2022 Atul Garcia [address] [place] [address] Re : Upper GI endoscopy procedure for Kaitlin Karlos Dear Dr. Gracia This procedure was performed on Wednesday, November 30, 2022. My impressions and recommendations are as follows: Impressions : - No endoscopic esophageal abnormality to explain patient's dysphagia. - Erythematous mucosa in the gastric body. - Normal duodenal bulb and examined duodenum. - An endoscopically removable PEG placement was successfully completed. - No specimens collected. Recommendations : - Please follow the post-PEG recommendations including: Nutrition consult for formula and volume and advance food and medications per primary care provider. - Continue present medications. My findings are described in the full procedure note, which is enclosed. If I can be of further assistance, please feel free to contact me at . Sincerely, Trevor Carter, 11/30/2022 11:45:37 AM This report has been signed electronically.
--- NOTE | 2022-11-30 11:46 | OP.EGD_ITS ---
Patient Name: Kaitlin Everett Procedure Date: 11/30/2022 11:19 AM Date of : 1955 Age: 67 Procedure: Upper GI endoscopy Indications: Place PEG due to impaired swallowing Providers: Trevor Carter DO Medicines: Monitored Anesthesia Care Patient Profile: This is a 67 year old female. Refer to note in patient chart for documentation of history and physical. Patient has symptoms of dysphagia with both liquids and solids. Complications: No immediate complications. Procedure: Pre-Anesthesia Assessment: - Prior to the procedure, a History and Physical was performed, and patient medications and allergies were reviewed. The patient is competent. The risks and benefits of the procedure and the sedation options and risks were discussed with the patient. All questions were answered and informed consent was obtained. Patient identification and proposed procedure were verified by the physician in the pre-procedure area. Mental Status Examination: alert and oriented. Respiratory Examination: clear to auscultation. CV Examination: normal. Prophylactic Antibiotics: The patient does not require prophylactic antibiotics. Prior Anticoagulants: The patient has taken no previous anticoagulant or antiplatelet agents. ASA Grade Assessment: II - A patient with mild systemic disease. After reviewing the risks and benefits, the patient was deemed in satisfactory condition to undergo the procedure. The anesthesia plan was to use moderate sedation / analgesia (conscious sedation). Immediately prior to administration of medications, the patient was re-assessed for adequacy to receive sedatives. The heart rate, respiratory rate, oxygen saturations, blood pressure, adequacy of pulmonary ventilation, and response to care were monitored throughout the procedure. The physical status of the patient was re-assessed after the procedure. After obtaining informed consent, the endoscope was passed under direct vision. Throughout the procedure, the patient's blood pressure, pulse, and oxygen saturations were monitored continuously. The gastroscope was introduced through the mouth, and advanced to the second part of duodenum. The upper GI endoscopy was accomplished without difficulty. The patient tolerated the procedure well. Scope In: 11:30:29 AM Scope Out: 11:40:03 AM Total Procedure Duration Time 0 hours 9 minutes 34 seconds Findings: No endoscopic abnormality was evident in the esophagus to explain the patient's complaint of dysphagia. Patchy mildly erythematous mucosa without bleeding was found in the gastric body. The patient was placed in the supine position for PEG placement. The stomach was insufflated to appose gastric and abdominal beck. A site was located in the fundus with excellent transillumination for placement. The abdominal wall was marked and prepped in a sterile manner. The area was anesthetized with 1 mL of 0.5% lidocaine. The trocar needle was introduced through the abdominal wall and into the stomach under direct endoscopic view. A snare was introduced through the endoscope and opened in the gastric lumen. The guide wire was passed through the trocar and into the open snare. The snare was closed around the guide wire. The endoscope and snare were removed, pulling the wire out through the mouth. A skin incision was made at the site of needle insertion. The endoscopically removable 20 Fr Bard gastrostomy tube was lubricated. The G-tube was tied to the guide wire and pulled through the mouth and into the stomach. The trocar needle was removed, and the gastrostomy tube was pulled out from the stomach through the skin. The external bumper was attached to the gastrostomy tube, and the tube was cut to remove the guide wire. The final position of the gastrostomy tube was confirmed by relook endoscopy, and skin marking noted to be 4 cm at the external bumper. The final tension and compression of the abdominal wall by the PEG tube and external bumper were checked. The feeding tube was capped, and the tube site cleaned and dressed. The duodenal bulb and examined duodenum were normal. Impression: - No endoscopic esophageal abnormality to explain patient's dysphagia. - Erythematous mucosa in the gastric body. - Normal duodenal bulb and examined duodenum. - An endoscopically removable PEG placement was successfully completed. - No specimens collected. Recommendation: - Please follow the post-PEG recommendations including: Nutrition consult for formula and volume and advance food and medications per primary care provider. - Continue present medications. Procedure Code(s): --- Professional --- 49624, Esophagogastroduodenoscopy, flexible, transoral; with directed placement of percutaneous gastrostomy tube CPT copyright 2017 [employer]. All rights reserved. The codes documented in this report are preliminary and upon tour escort review may be revised to meet current compliance requirements. Trevor Carter DO 11/30/2022 11:45:37 AM This report has been signed electronically. Number of Addenda: 0 Note Initiated On: 11/30/2022 11:19 AM
[2022-11-30] MEDS: Amiodarone 200 MG Tablet PO ×2 (12:28→20:41)
[2022-11-30] MEDS: Midodrine HCl 5 MG Tablet 10 MG PO ×2 (12:29→16:49)
[2022-11-30] MEDS: Clopidogrel Bisulfate 75 MG Tablet PO (12:29)
[2022-11-30] MEDS: Aspirin 81 MG TAB.CHEW PO (12:30)
[2022-11-30] MEDS: Bumetanide 0.5 MG Tablet PO (12:31)
[2022-11-30] MEDS: Acetaminophen 325 MG Tablet 650 MG PO (12:57)
[2022-11-30] MEDS: Menthol/Lanolin/Calamine/Znox 113 GM Tube 1 APPLIC TOPICAL ×2 (14:27→20:41)
[2022-11-30] MEDS: HEPARIN/D5w 25,000 UNITS 25,000 UNITS/250 ML IV.SOLN. 6 UNITS CONT INF (14:32)
[2022-11-30] MEDS: Jevity 1.5 1,000 ML 20 ML GT (15:39)
[2022-11-30 21:16] LABS: Partial Thromboplast Time 69.1 Seconds (24.1-36.2)
[2022-11-30] MEDS: Zolpidem Tartrate 5 MG Tablet PO (22:33)
[2022-12-01] VITALS (24 sets, daily range): BP systolic 88–123; BP diastolic 58–86; PULSE 65–90; RESP 12–24; TEMP 36.6–37.7; O2SAT 90–99; BMI 21.4
[2022-12-01 03:40] LABS: Absolute Lymphocyte Count 0.25 X10^3/uL (0.83-4.51); Absolute Neutrophil Count 16.8 X10^3/uL (2.0-7.7); Basophil# 0.02 X10^3/uL; Basophil% 0.1 % (0-1); Hematocrit 32.4 % (37-47); Hemoglobin 9.8 g/dL (12.0-15.0); Lymphocyte # 0.25 X10^3/ul (0.83-4.51); Lymphocyte % 1.4 % (19-41); Mean Corp Hgb Conc 30.2 g/dL (32-36); Mean Corpuscular Hgb 23.1 pg (27.0-32.0); Mean Corpuscular Volume 76.4 fL (81-99); Monocyte# 0.65 X10^3/uL; Monocyte% 3.6 % (0-10); NRBC Flagged by Analyzer 0 % (0-5); Neutrophil # 16.82 X10^3/uL (2.7-7.7); Neutrophil % 93.9 % (47-70); POSITIVE DIFFERENTIAL YES; POSITIVE MORPHOLOGY YES; Platelet Count 688 K/mm3 (150-450); RBC Distribution Width CV 30.1 % (11.6-14.6); RBC Distribution Width SD 78.2 fl (35.1-43.9); Red Blood Count 4.24 M/mm3 (4.2-5.4); White Blood Count 17.9 K/mm3 (4.4-11.0)
[2022-12-01 03:53] LABS: Partial Thromboplast Time 73.2 Seconds (24.1-36.2)
[2022-12-01 03:58] LABS: Differential Indicated SCAN CRITERIA MET
[2022-12-01 04:08] LABS: Anisocytosis RARE
[2022-12-01 04:37] LABS: Anion Gap 1 (5-15); BUN 24 mg/dL (7-18); BUN/Creat Ratio 43.9 RATIO (10-20); Calcium,Total 7.9 mg/dL (8.5-10.1); Chloride 103 mmol/L (98-107); Creatinine, Serum 0.55 mg/dL (0.55-1.02); EST Glomerular Filtration Rate 118 mL/min (>60); Est Glom Filt Rate - Afr Amer 143 mL/min (>60); Estimated Creatinine Clearance 75.34 ml/min; Glucose 124 mg/dL (74-106); Potassium 4.1 mmol/L (3.5-5.1); Sodium Level 136 mmol/L (136-145)
[2022-12-01] MEDS: Menthol/Lanolin/Calamine/Znox 113 GM Tube 1 APPLIC TOPICAL ×3 (05:24→21:06)
[2022-12-01] MEDS: 0.9% Saline Lock 10 ML Syringe IV (05:24)
[2022-12-01] MEDS: Levothyroxine 88 MCG Tablet GT (05:24)
--- NOTE | 2022-12-01 07:20 | PCM.PN.INT ---
Assessment & Plan Assessment/Plan (1) Acute and chronic respiratory failure with hypoxia: (2) History of coronary artery stent placement: (3) Bronchiectasis, non-tuberculous: (4) Recurrent pleural effusion: (5) Cachexia: (6) Sepsis due to Streptococcus pneumoniae with acute hypoxic respiratory failure and septic shock: PLAN: Plan RECOMMENDATIONS: 1. Continue midodrine 2. Completed 10 days of antibiotics 3. Okay to advance tube feeds 4. Continue aggressive pulmonary toileting 5. Will need evaluated by CT surgery for possible pleurodesis 6. PT/OT secondary to debility 7. Hemodynamically stable on minimal nasal cannula. Will sign off from a critical care/pulmonary perspective IMPRESSIONS: 1. Acute on chronic hypoxic respiratory failure secondary to pneumonia and possible amyloid Patient appears to be back to her baseline respiratory status. Patient does have a significant loculated left pleural effusion that will eventually require pleurodesis by CT surgery. Patient may have an element of aspiration adding to complications, which should improve following PEG. We will continue with BiPAP with sleep. Patient will likely need a walking oximetry prior to discharge if significantly ambulatory. Defer to hospitalist on whether patient will be transferred directly from hospital to hospital or follow-up with CT surgery as an outpatient. Endobronchial biopsy specimens are currently pending. Patient may benefit from a VATS evaluation if already undergoing a pleurodesis, but defer to CT surgery. 2. Recurrent pleural effusion/bronchiectasis/sepsis secondary to pneumococcus Patient appears to be doing okay at this time. Patient still has significant bronchial secretions, but this would be expected. Patient does have adequate blood pressure at this time. Could consider weaning off of midodrine slowly in the future. Patient has completed a course of antibiotics. 3. Debility/dysphagia Patient with significant cachexia and debility. Patient discussed with GI and has agreed to a PEG tube to standardize nutrition. Patient will likely need a pleurodesis in the future and may benefit from nutritional optimization. 4. CAD/COPD/advanced age/anemia/history of iatrogenic pneumothorax Complicates care, management, recovery and prognosis. Patient potentially could go to the floor following PEG tube, but given comorbidities. Patient appears to be at her baseline at this time. Will sign off from a pulmonary/critical care perspective. Patient follow-up in office as previously planned Subjective Subjective Patient did well overnight. No acute issues were reported. Patient has not had any bleeding complications per patient or nursing. Patient has had some soreness at the PEG site, but no nausea has been reported. Patient is not reporting any new respiratory complaints. Patient continues to have a cough productive of sputum Objective Data Objective Data Vital Signs: Vital Signs Temp Pulse Resp BP Pulse Ox O2 Del Method O2 Flow Rate 37.4 C H 78 20 H 96/65 98 Nasal Cannula 2 12/01/22 05:00 12/01/22 07:00 12/01/22 07:00 12/01/22 07:00 12/01/22 07:00 12/01/22 07:00 12/01/22 07:00 FiO2 30 12/01/22 01:30 Oxygen Flow Rate (L/min) 2 Oxygen Delivery Method Nasal Cannula Weight: 46.4 kg Body Mass Index (BMI) 21.4 Intake & Output: Intake and Output for Last 24 Hours 11/29/22 11/30/22 12/01/22 23:59 23:59 23:59 Intake Total 1773.2 / 1773.2 1968.3 / 1968.3 164 / 164 Output Total 3050 / 3050 1250 / 1250 150 / 150 Balance -1276.8 / -1276.8 718.3 / 718.3 Medical Nutrition Assessment Dietitian: Malnutrition Criteria Met Start: 11/20/22 11:25 Freq: Status: Active Protocol: Document 11/28/22 10:28 (Rec: 11/28/22 10:28 [id number]) Nutrition Malnutrition Evidence of Malnutrition Exists Yes Malnutrition (severe): Chronic Evidenced By Suboptimal Energy Intake ( Severe),Weight Loss (Severe), Physical Changes (Moderate) Intake Problem Inadequate Oral Intake Etiology related to chewing/swallowing difficulty Signs/Symptoms as evidenced by NPO x 2 days Status Active Problem Clinical Problem Chronic Disease or Condition Related Malnutrition Etiology Severe protein-calorie malnutrition in the context of chronic disease related to inadequate oral/energy intake Signs/Symptoms as evidenced by estimated PO intake meeting <50% of 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, muscle/fat wasting visible in face, upper/lower extremities and torso and weight loss ~9% x less than 6 months with fluid likely masking additional wt loss Status Active Problem Recommendation Dietitian Recommendations/Changes Will maintain NPO status until appropriate for PO intake; recommend cardiac diet when medically indicated- texture/ consistency modifications per CLEANER AND PREPARER Lab / Micro Data Attestation: I reviewed the patient's lab results. Result Diagrams: 12/01/22 03:32 12/01/22 03:32 Labs: Laboratory Results - last 24 hr 11/30/22 20:55: APTT 69.1 H 12/01/22 03:32: WBC 17.9 H, RBC 4.24, Hgb 9.8 L, Hct 32.4 L, MCV 76.4 L, MCH 23.1 L, MCHC 30.2 L, RDW Std Deviation 78.2 H, RDW Coeff of Angie 30.1 H, Plt Count 688 H, MPV 11.0, Immature Gran % (Auto) 1.000 H, Neut % (Auto) 93.9 H, Lymph % (Auto) 1.4 L, [place] % (Auto) 3.6, Eos % (Auto) 0.0, Baso % (Auto) 0.1, Absolute Neuts (auto) 16.8 H, Absolute Lymphs (auto) 0.25 L, Nucleated RBC % 0, Differential Comment COMMENT, Anisocytosis RARE 12/01/22 03:32: Sodium 136, Potassium 4.1, Chloride 103, Carbon Dioxide 32.0, Anion Gap 1 L, BUN 24 H, Creatinine 0.55, Estim Creat Clear Calc 75.34, Est GFR (MDRD) Af Amer 143, Est GFR (MDRD) Non-Af 118, BUN/Creatinine Ratio 43.9 H, Glucose 124 H, Calcium 7.9 L 12/01/22 03:32: APTT 73.2 H Micro: Microbiology 11/26/22 13:52 Fluid - Thoracentesis Fluid Gram Stain - Final 11/26/22 13:52 Fluid - Thoracentesis Fluid Body Fluid Culture - Final No growth aerobically. 11/26/22 13:52 Fluid - Thoracentesis Fluid Anaerobic Culture - Preliminary No growth in 48 hours. 11/29/22 10:55 Stool C. difficile DNA Amplification - Final 11/22/22 12:40 Wash - Bronchial Wash Gram Stain - Final 11/22/22 12:40 Wash - Bronchial Wash Respiratory Culture - Final Culture exhibits no growth. 11/22/22 12:40 Wash - Bronchial Wash Gram Stain - Final 11/22/22 12:40 Wash - Bronchial Wash Respiratory Culture - Final Culture exhibits no growth. 11/20/22 15:55 Sputum, Expectorated/Coughed Gram Stain - Final 11/20/22 15:55 Sputum, Expectorated/Coughed Respiratory Culture - Final Streptococcus pneumoniae 11/21/22 16:35 Sputum, Induced/Lukens Gram Stain - Final 11/21/22 16:35 Sputum, Induced/Lukens Respiratory Culture - Final Presumptive C albicans 11/20/22 14:00 Blood Culture (Wb) - Anticubital Left Bacteria Detection (PCR) - Final Streptococcus pneumoniae 11/20/22 14:00 Blood Culture (Wb) - Anticubital Left Blood Culture - Final Alpha hemolytic organism 11/20/22 13:55 Blood Culture (Wb) - Anticubital Right Blood Culture - Final Streptococcus pneumoniae 11/20/22 13:50 Urine Catheter - Catheter Urine Culture - Final Culture exhibits no growth. 11/20/22 14:57 Mucosa - Nasopharyngeal Influenza Types A,B Direct FA (SAMANTHA) - Final 11/20/22 13:50 Urine Catheter - Catheter Legionella Antigen - Final 11/20/22 13:50 Urine Catheter - Catheter Streptococcus pneumoniae Antigen (M - Final Rhythm Strip Rhythm Strip: Sinus Rhythm Rate: 82 Physical Exam Const alert and oriented x3 Constitutional Narrative: No conversational dyspnea. No longer suctioning her own secretions General Appearance: frail HEENT normocephalic and head/scalp atraumatic Eyes PERRL, EOMs intact bilaterally and conjunctivae normal Neck supple General: trachea midline Chest inspection of chest normal Resp Resp Narrative: Slightly increased respiratory effort Auscultation: rhonchi throughout (Improves with cough and suctioning) and diminished lung sounds; Negative for rales or wheezes Cardio regular rhythm, S1 normal heart sound and S2 normal heart sound Cardio Narrative: Currently in normal sinus rhythm GI normal to inspection, nondistended, normoactive bowel sounds GI Narrative: PEG is clean, dry and intact Inspection: GI tube present Extremity no clubbing, cyanosis or edema Skin no rashes or lesions noted Neuro oriented x3, CN's II-XII intact bilaterally, moves all extremities and no focal motor deficits Psych cooperative Charges/Coding Visit Charges Inpatient E&M: 04815 Subs Hosp L2
[2022-12-01] MEDS: Ipratropium 0.5 MG/2.5 ML SOLUTION INHALATION ×3 (07:24→20:23)
[2022-12-01] MEDS: Midodrine HCl 5 MG Tablet 10 MG PO ×3 (07:55→16:19)
[2022-12-01] MEDS: Aspirin 81 MG TAB.CHEW PO (07:55)
[2022-12-01] MEDS: Clopidogrel Bisulfate 75 MG Tablet PO (07:56)
[2022-12-01] MEDS: Amiodarone 200 MG Tablet PO ×2 (07:56→21:07)
[2022-12-01] MEDS: Bumetanide 0.5 MG Tablet PO (07:56)
[2022-12-01] MEDS: Lansoprazole 15 MG Capsule.DR 30 MG GT (10:03)
--- NOTE | 2022-12-01 10:53 | CASEMGMT ---
Social Work ROSMERY called to confirm pt is to return to [facility] at discharge, message left. ROSMERY attempted to call daughter, it does not go through. ROSMERY called Admissions at [facility]. is in [facility] at present. and daughter live with Rosalind Mendez([phone]), she may have a number for Macy. ROSMERY called Rosalind, she had Macy call ROSMERY. Macy called, confirmed plan is for pt to return to [facility] when ready. Macy does not need a list of long-term facilities in the area. Support offered to Macy as both parents are in the hospital. Macy's number is [phone], SW will update demographics. Macy states she was told there was to be a family meeting. ROSMERY checked w/battery recharger, bedside RN and hospitalist, none aware of meeting. ROSMERY let Macy know, will call her back if ROSMERY learns anything different. ROSMERY sent all updates to [facility] via [employer]. Plan: Return to [facility] when ready. ADELAIDA Vogt
--- NOTE | 2022-12-01 11:34 | CASEMGMT ---
Social Work Parminder Sanchez responded in [facility] inquiring if pt still on vent. SW responded that no, pt is not on vent. Updates sent and SW inquired if they can accept pt. SW will continue to follow, awaiting a response. ADELAIDA Vogt
--- NOTE | 2022-12-01 11:54 | PCM.PN.HOSP ---
Reason for Visit Reason for Visit: Diagnoses Sepsis due to Streptococcus pneumoniae (11/20/22) Chronic obstructive pulmonary disease, unspecified (11/20/22) Bronchiectasis, uncomplicated (11/20/22) Pleural effusion, not elsewhere classified (11/20/22) Acute respiratory failure with hypoxia (11/20/22) Acute and chronic respiratory failure with hypoxia (11/20/22) Atelectasis (11/20/22) Dyspnea, unspecified (11/20/22) Dysphagia, oropharyngeal phase (11/20/22) Cachexia (11/20/22) Severe sepsis with septic shock (11/20/22) Personal history of other diseases of the circulatory system (11/20/22) Presence of coronary angioplasty implant and graft (11/20/22) Dependence on respirator [ventilator] status (11/20/22) Objective Data Objective Data Vital Signs: Vital Signs Temp Pulse Resp BP Pulse Ox O2 Del Method O2 Flow Rate 99.8 F H 84 22 H 105/69 90 Nasal Cannula 2 12/01/22 11:00 12/01/22 11:00 12/01/22 11:00 12/01/22 11:00 12/01/22 11:00 12/01/22 11:00 12/01/22 10:00 FiO2 2 12/01/22 11:00 Oxygen Flow Rate (L/min) 2 Oxygen Delivery Method Nasal Cannula Weight: 102 lb 4.712 oz Body Mass Index (BMI) 21.4 Intake & Output: Intake and Output for Last 24 Hours 11/29/22 11/30/22 12/01/22 23:59 23:59 23:59 Intake Total 1773.2 / 1773.2 1968.3 / 1968.3 164 / 164 Output Total 3050 / 3050 1250 / 1250 950 / 950 Balance -1276.8 / -1276.8 718.3 / 718.3 -786 / -786 Medical Nutrition Assessment Dietitian: Malnutrition Criteria Met Start: 11/20/22 11:25 Freq: Status: Active Protocol: Document 11/28/22 10:28 (Rec: 11/28/22 10:28 [id number]) Nutrition Malnutrition Evidence of Malnutrition Exists Yes Malnutrition (severe): Chronic Evidenced By Suboptimal Energy Intake ( Severe),Weight Loss (Severe), Physical Changes (Moderate) Intake Problem Inadequate Oral Intake Etiology related to chewing/swallowing difficulty Signs/Symptoms as evidenced by NPO x 2 days Status Active Problem Clinical Problem Chronic Disease or Condition Related Malnutrition Etiology Severe protein-calorie malnutrition in the context of chronic disease related to inadequate oral/energy intake Signs/Symptoms as evidenced by estimated PO intake meeting <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, muscle/fat wasting visible in face, upper/lower extremities and torso and weight loss ~9% x less than 6 months with fluid likely masking additional wt loss Status Active Problem Recommendation Dietitian Recommendations/Changes Will maintain NPO status until appropriate for PO intake; recommend cardiac diet when medically indicated- texture/ consistency modifications per POST DOC FELLOWSHIP Lab / Micro Data Result Diagrams: 12/01/22 03:32 12/01/22 03:32 Labs: Laboratory Results - last 24 hr 11/30/22 20:55: APTT 69.1 H 12/01/22 03:32: WBC 17.9 H, RBC 4.24, Hgb 9.8 L, Hct 32.4 L, MCV 76.4 L, MCH 23.1 L, MCHC 30.2 L, RDW Std Deviation 78.2 H, RDW Coeff of Angie 30.1 H, Plt Count 688 H, MPV 11.0, Immature Gran % (Auto) 1.000 H, Neut % (Auto) 93.9 H, Lymph % (Auto) 1.4 L, [place] % (Auto) 3.6, Eos % (Auto) 0.0, Baso % (Auto) 0.1, Absolute Neuts (auto) 16.8 H, Absolute Lymphs (auto) 0.25 L, Nucleated RBC % 0, Differential Comment COMMENT, Anisocytosis RARE 12/01/22 03:32: Sodium 136, Potassium 4.1, Chloride 103, Carbon Dioxide 32.0, Anion Gap 1 L, BUN 24 H, Creatinine 0.55, Estim Creat Clear Calc 75.34, Est GFR (MDRD) Af Amer 143, Est GFR (MDRD) Non-Af 118, BUN/Creatinine Ratio 43.9 H, Glucose 124 H, Calcium 7.9 L 12/01/22 03:32: APTT 73.2 H Micro: Microbiology 11/26/22 13:52 Fluid - Thoracentesis Fluid Gram Stain - Final 11/26/22 13:52 Fluid - Thoracentesis Fluid Body Fluid Culture - Final No growth aerobically. 11/26/22 13:52 Fluid - Thoracentesis Fluid Anaerobic Culture - Final No anaerobic bacteria isolated. 11/29/22 10:55 Stool C. difficile DNA Amplification - Final 11/22/22 12:40 Wash - Bronchial Wash Gram Stain - Final 11/22/22 12:40 Wash - Bronchial Wash Respiratory Culture - Final Culture exhibits no growth. 11/22/22 12:40 Wash - Bronchial Wash Gram Stain - Final 11/22/22 12:40 Wash - Bronchial Wash Respiratory Culture - Final Culture exhibits no growth. 11/20/22 15:55 Sputum, Expectorated/Coughed Gram Stain - Final 11/20/22 15:55 Sputum, Expectorated/Coughed Respiratory Culture - Final Streptococcus pneumoniae 11/21/22 16:35 Sputum, Induced/Lukens Gram Stain - Final 11/21/22 16:35 Sputum, Induced/Lukens Respiratory Culture - Final Presumptive C albicans 11/20/22 14:00 Blood Culture (Wb) - Anticubital Left Bacteria Detection (PCR) - Final Streptococcus pneumoniae 11/20/22 14:00 Blood Culture (Wb) - Anticubital Left Blood Culture - Final Alpha hemolytic organism 11/20/22 13:55 Blood Culture (Wb) - Anticubital Right Blood Culture - Final Streptococcus pneumoniae 11/20/22 13:50 Urine Catheter - Catheter Urine Culture - Final Culture exhibits no growth. 11/20/22 14:57 Mucosa - Nasopharyngeal Influenza Types A,B Direct FA (SAMANTHA) - Final 11/20/22 13:50 Urine Catheter - Catheter Legionella Antigen - Final 11/20/22 13:50 Urine Catheter - Catheter Streptococcus pneumoniae Antigen (M - Final Rhythm Strip Rhythm Strip: Sinus Rhythm Rate: 82 Physical Exam Narrative Patient is awake and alert. Extubated on 11/27/2022. Patient had PEG tube 08/1022. Gradual improvement in breathing and blood pressure. Still very weak and dyspnea on exertion Physical exam General: Alert, responds appropriately to simple questions, Cooperative HEENT: Atraumatic, PERRLA, EOMI, Normocephalic Oral: ET and OG tube. Neck: Supple, No JVD, Negative Carotid Bruits Lungs: Air entry diminished in bilateral lung bases. Coarse crepitations. Cardiovascular: Sinus rhythm, Normal S1, Normal S2, PVCs, systolic murmur at LUSB Abdomen: Bowel Sounds Present, Soft, Non Tender, Non-Distended : Andino catheter. No renal angle tenderness. No suprapubic tenderness. Extremities: No edema, Capillary Refill Less than 3 Seconds Skin: No rashes, No breakdown Musculoskeletal: No Tenderness to Palpation of Joints or Extremities. ROM full. Muscle strength 4/5 at major lower extremity joints Neurological: Cranial nerves II-XII grossly intact, DTR 2+/4 Psych/Mental Status: Flat affect. Assessment & Plan Assessment/Plan (1) Acute and chronic respiratory failure with hypoxia: (2) Acute dyspnea: PLAN: Plan 1.? Acute on chronic hypoxic respiratory failure secondary to continued right pleural effusion and community-acquired pneumonia and strep bacteremia with septic shock Patient also had mild PE with heart strain as documented in CTPA chest subsegmental pulmonary embolism in the right upper lobe. Less likely cardiogenic shock. Patient patient had right thoracocentesis 525 ml of stephen-colored fluid drained on 11/26/2022. ? Blood cultures demonstrates strep pneumonia ?Continue broad spectrum antibiotics ?Continue diuretics depending upon hemodynamics and kidney function ? Continue with anticoagulation for subsegmental PEs, echo did demonstrate right heart strain 11/27: Patient is extubated today. Prior to that patient weaned off sedative and Levophed. On midodrine. On IV meropenem. 11/28: Patient was extubated yesterday. Very weak and fatigued. PT and OT. Thoracocentesis and bronc culture does not show any growth. Urine output 350 mL since midnight. 850 mL last 24 hours yesterday 11/29: Patient on oxygen nasal cannula. Tmax 99.2 Fahrenheit. On Bumex 1 mg daily. Amiodarone 200 mg twice daily baby aspirin Plavix, and atorvastatin. 11/30: Patient has a rare and undiagnosed probably systemic disease and diagnosed by [facility] by extensive work-up. Patient on oxygen support on NIPPV at night. 12/01: I talked to patient and she said she wants to get a strong with rehab and then think of pleurodesis. Drum Stenciler and I agree with her plan. Therefore discharge plan will be SNF. We will continue NIPPV as needed. . 2.? CAD status post stent/HTN/HLD/chronic diastolic CHF/paroxysmal A-fib ? Can continue with aspirin via G-tube as well as Lipitor ?Weaned off norepinephrine. BP 115/72. On IV heparin drip. 11/28: Heart rate is controlled. Patient amiodarone drip changed to amiodarone oral. 11/29: Patient on Eliquis, baby aspirin and Plavix. H&H 9.8/32%. Platelet count 688. 3. Oropharyngeal dysphagia: Patient failed swallow. GI is consulted for PEG tube. On D5W for nutrition. 11/29: Seen by GI Dr. Carter. Plan for PEG tube tomorrow AM. Hold heparin drip midnight today. 11/30: Plan for PEG tube today. Patient will stay in ICU after PEG tube for monitoring and then transferred to PCU. Discussed with restaurant hourly manager. 12/01: PEG tube. Patient tolerating tube feed. 3.? Hypothyroidism ? Continue with Synthroid 4.? Severe chronic protein calorie malnutrition ? Continue with nutritional evaluation 5.? GERD ? Stable ? Continue with PPI DVT: On Eliquis after the procedure PEG tube. Charges/Coding Visit Charges Inpatient E&M: 61864 [facility] Hosp L3
--- NOTE | 2022-12-01 15:06 | CASEMGMT ---
ROSMERY called Parminder Sanchez and left a message for Laurence in admissions asking if they are able to accept patient or not. Gisella Pires ASSISTANT CREDIT MANAGER FARRAH
[2022-12-01] MEDS: Jevity 1.5 1,000 ML 38 ML GT (16:18)
--- NOTE | 2022-12-01 16:29 | PCM.PROGNOTE ---
Subjective Subjective Patient underwent percutaneous endoscopic gastrostomy tube placement yesterday. No complications during the procedure. She does not have any abdominal pain at this time. She is tolerating tube feedings without high residuals. Objective Data Objective Data Vital Signs: Vital Signs Temp Pulse Resp BP Pulse Ox O2 Del Method O2 Flow Rate 99.7 F H 80 18 114/71 93 Nasal Cannula 2 12/01/22 12:00 12/01/22 13:22 12/01/22 13:22 12/01/22 12:00 12/01/22 14:19 12/01/22 12:00 12/01/22 14:19 FiO2 2 12/01/22 11:00 Oxygen Flow Rate (L/min) 2 Oxygen Delivery Method Nasal Cannula Weight: 102 lb 4.712 oz Body Mass Index (BMI) 21.4 Intake & Output: Intake and Output for Last 24 Hours 11/29/22 11/30/22 12/01/22 23:59 23:59 23:59 Intake Total 1773.2 / 1773.2 1968.3 / 1968.3 1224.2 / 1224.2 Output Total 3050 / 3050 1250 / 1250 950 / 950 Balance -1276.8 / -1276.8 718.3 / 718.3 274.2 / 274.2 Medical Nutrition Assessment Dietitian: Malnutrition Criteria Met Start: 11/20/22 11:25 Freq: Status: Active Protocol: Document 11/28/22 10:28 (Rec: 11/28/22 10:28 [id number]) Nutrition Malnutrition Evidence of Malnutrition Exists Yes Malnutrition (severe): Chronic Evidenced By Suboptimal Energy Intake ( Severe),Weight Loss (Severe), Physical Changes (Moderate) Intake Problem Inadequate Oral Intake Etiology related to chewing/swallowing difficulty Signs/Symptoms as evidenced by NPO x 2 days Status Active Problem Clinical Problem Chronic Disease or Condition Related Malnutrition Etiology Severe protein-calorie malnutrition in the context of chronic disease related to inadequate oral/energy intake Signs/Symptoms as evidenced by estimated PO intake meeting <50% of estimated nutritional needs 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, muscle/fat wasting visible in face, upper/lower extremities and torso and weight loss ~9% x less than 6 months with fluid likely masking additional wt loss Status Active Problem Recommendation Dietitian Recommendations/Changes Will maintain NPO status until appropriate for PO intake; recommend cardiac diet when medically indicated- texture/ consistency modifications per PRODUCTION CONSULTANT Lab / Micro Data Result Diagrams: 12/01/22 03:32 12/01/22 03:32 Labs: Laboratory Results - last 24 hr 11/30/22 20:55: APTT 69.1 H 12/01/22 03:32: WBC 17.9 H, RBC 4.24, Hgb 9.8 L, Hct 32.4 L, MCV 76.4 L, MCH 23.1 L, MCHC 30.2 L, RDW Std Deviation 78.2 H, RDW Coeff of Angie 30.1 H, Plt Count 688 H, MPV 11.0, Immature Gran % (Auto) 1.000 H, Neut % (Auto) 93.9 H, Lymph % (Auto) 1.4 L, Lyman % (Auto) 3.6, Eos % (Auto) 0.0, Baso % (Auto) 0.1, Absolute Neuts (auto) 16.8 H, Absolute Lymphs (auto) 0.25 L, Nucleated RBC % 0, Differential Comment COMMENT, Anisocytosis RARE 12/01/22 03:32: Sodium 136, Potassium 4.1, Chloride 103, Carbon Dioxide 32.0, Anion Gap 1 L, BUN 24 H, Creatinine 0.55, Estim Creat Clear Calc 75.34, Est GFR (MDRD) Af Amer 143, Est GFR (MDRD) Non-Af 118, BUN/Creatinine Ratio 43.9 H, Glucose 124 H, Calcium 7.9 L 12/01/22 03:32: APTT 73.2 H Micro: Microbiology 11/26/22 13:52 Fluid - Thoracentesis Fluid Gram Stain - Final 11/26/22 13:52 Fluid - Thoracentesis Fluid Body Fluid Culture - Final No growth aerobically. 11/26/22 13:52 Fluid - Thoracentesis Fluid Anaerobic Culture - Final No anaerobic bacteria isolated. 11/29/22 10:55 Stool C. difficile DNA Amplification - Final 11/22/22 12:40 Wash - Bronchial Wash Gram Stain - Final 11/22/22 12:40 Wash - Bronchial Wash Respiratory Culture - Final Culture exhibits no growth. 11/22/22 12:40 Wash - Bronchial Wash Gram Stain - Final 11/22/22 12:40 Wash - Bronchial Wash Respiratory Culture - Final Culture exhibits no growth. 11/20/22 15:55 Sputum, Expectorated/Coughed Gram Stain - Final 11/20/22 15:55 Sputum, Expectorated/Coughed Respiratory Culture - Final Streptococcus pneumoniae 11/21/22 16:35 Sputum, Induced/Lukens Gram Stain - Final 11/21/22 16:35 Sputum, Induced/Lukens Respiratory Culture - Final Presumptive C albicans 11/20/22 14:00 Blood Culture (Wb) - Anticubital Left Bacteria Detection (PCR) - Final Streptococcus pneumoniae 11/20/22 14:00 Blood Culture (Wb) - Anticubital Left Blood Culture - Final Alpha hemolytic organism 11/20/22 13:55 Blood Culture (Wb) - Anticubital Right Blood Culture - Final Streptococcus pneumoniae 11/20/22 13:50 Urine Catheter - Catheter Urine Culture - Final Culture exhibits no growth. 11/20/22 14:57 Mucosa - Nasopharyngeal Influenza Types A,B Direct FA (SAMANTHA) - Final 11/20/22 13:50 Urine Catheter - Catheter Legionella Antigen - Final 11/20/22 13:50 Urine Catheter - Catheter Streptococcus pneumoniae Antigen (M - Final Rhythm Strip Rhythm Strip: Sinus Rhythm Rate: 82 Physical Exam Narrative Patient is awake and alert. Extubated on 11/27/2022. Patient had PEG tube 08/1022. Gradual improvement in breathing and blood pressure. Still very weak and dyspnea on exertion Physical exam General: Alert, responds appropriately to simple questions, Cooperative HEENT: Atraumatic, PERRLA, EOMI, Normocephalic Oral: ET and OG tube. Neck: Supple, No JVD, Negative Carotid Bruits Lungs: Air entry diminished in bilateral lung bases. Coarse crepitations. Cardiovascular: Sinus rhythm, Normal S1, Normal S2, PVCs, systolic murmur at LUSB Abdomen: Bowel Sounds Present, Soft, Non Tender, Non-Distended : Andino catheter. No renal angle tenderness. No suprapubic tenderness. Extremities: No edema, Capillary Refill Less than 3 Seconds Skin: No rashes, No breakdown Musculoskeletal: No Tenderness to Palpation of Joints or Extremities. ROM full. Muscle strength 4/5 at major lower extremity joints Neurological: Cranial nerves II-XII grossly intact, DTR 2+/4 Psych/Mental Status: Flat affect. Assessment & Plan Assessment/Plan (1) Acute and chronic respiratory failure with hypoxia: (2) Acute dyspnea: (3) Oropharyngeal dysphagia: (4) Cachexia: PLAN: Plan 67-year-old with history of chronic bilateral pleural effusions who presented with acute on chronic hypoxic respiratory failure secondary to continued right pleural effusion and community-acquired pneumonia and strep bacteremia with septic shock. On this admission she was discovered to have a subsegmental pulmonary embolism in the right upper lobe. She was intubated and successfully extubated. She recently failed a swallow study and was determined to have oropharyngeal dysphagia and is not able to orally provide proper nutrition. She underwent endoscopic percutaneous gastrostomy tube placement. Recommendation: No problem with anticoagulation. Tube feedings as per primary team and nutrition services. Charges/Coding Visit Charges Inpatient E&M: 114[address] [facility] [place] Hosp L2
[2022-12-01] MEDS: APIXABAN 5 MG TABLET GT (21:07)
[2022-12-01] MEDS: Atorvastatin Calcium 40 MG Tablet PO (21:08)
[2022-12-01] MEDS: Zolpidem Tartrate 5 MG Tablet PO (21:45)
[2022-12-02] VITALS (11 sets, daily range): BP systolic 117–123; BP diastolic 70–81; PULSE 78–89; RESP 12–28; TEMP 36.3–36.7; O2SAT 86–98; BMI 21.7
--- NOTE | 2022-12-02 02:25 | NURSING ---
Pt called out states that something is beeping in the room. Pulse ox is at 80%. Encouraged pt to take some deep breaths through her nose. Pt was placed on bipap after discussion with RT increased from 30% on the bipap to 40% oxygen. Pt's pulse ox increased to 94% on the 40% o2.
--- NOTE | 2022-12-02 02:30 | CPS ---
RN called and stated pt spo2 had dropped and was 4L , few min later called again. Pt keeps dropping o2 sats. Bipap back on.
[2022-12-02 04:39] LABS: Absolute Lymphocyte Count 0.24 X10^3/uL (0.83-4.51); Basophil# 0.01 X10^3/uL; Basophil% 0.1 % (0-1); Eosinophil# 0.01 X10^3/uL; Eosinophils% 0.1 % (0-5); Hemoglobin 10.1 g/dL (12.0-15.0); Lymphocyte # 0.24 X10^3/ul (0.83-4.51); Lymphocyte % 1.6 % (19-41); Mean Corp Hgb Conc 29.7 g/dL (32-36); Mean Corpuscular Hgb 22.9 pg (27.0-32.0); Mean Corpuscular Volume 76.9 fL (81-99); Mean Platelet Vol. 11.4 fl (6.2-12.0); Monocyte# 0.94 X10^3/uL; Monocyte% 6.1 % (0-10); NRBC Flagged by Analyzer 0 % (0-5); Neutrophil # 14.02 X10^3/uL (2.7-7.7); Neutrophil % 91.4 % (47-70); POSITIVE DIFFERENTIAL YES; POSITIVE MORPHOLOGY YES; Platelet Count 705 K/mm3 (150-450); RBC Distribution Width CV 30.5 % (11.6-14.6); Red Blood Count 4.42 M/mm3 (4.2-5.4); White Blood Count 15.3 K/mm3 (4.4-11.0)
[2022-12-02 04:46] LABS: Differential Indicated SCAN CRITERIA MET
[2022-12-02 04:48] LABS: Partial Thromboplast Time 29.2 Seconds (24.1-36.2)
[2022-12-02 05:11] LABS: Anion Gap 2 (5-15); BUN 20 mg/dL (7-18); BUN/Creat Ratio 40.8 RATIO (10-20); Calcium,Total 8.1 mg/dL (8.5-10.1); Chloride 101 mmol/L (98-107); Creatinine, Serum 0.49 mg/dL (0.55-1.02); EST Glomerular Filtration Rate 134 mL/min (>60); Est Glom Filt Rate - Afr Amer 163 mL/min (>60); Estimated Creatinine Clearance 84.75 ml/min; Glucose 127 mg/dL (74-106); Potassium 3.9 mmol/L (3.5-5.1); Sodium Level 135 mmol/L (136-145)
[2022-12-02 05:28] LABS: Anisocytosis 1+; Differential Comment SCANNED
[2022-12-02 05:29] LABS: Hypochromasia 1+
[2022-12-02] MEDS: Menthol/Lanolin/Calamine/Znox 113 GM Tube 1 APPLIC TOPICAL ×3 (05:41→23:48)
[2022-12-02] MEDS: Levothyroxine 88 MCG Tablet GT (05:41)
--- NOTE | 2022-12-02 06:58 | NURSING ---
Pt's O2 sat was not maintining. oxygen level was at 84% on 4l nc. Placed pt back on AVAPS and notified respiratory. pt's oxygen increased to 94% on the avaps at 40%
[2022-12-02] MEDS: Ipratropium 0.5 MG/2.5 ML SOLUTION INHALATION ×3 (07:18→19:05)
--- NOTE | 2022-12-02 08:18 | PCM.PN.HOSP ---
Reason for Visit Reason for Visit: Diagnoses Sepsis due to Streptococcus pneumoniae (11/20/22) Chronic obstructive pulmonary disease, unspecified (11/20/22) Bronchiectasis, uncomplicated (11/20/22) Pleural effusion, not elsewhere classified (11/20/22) Acute respiratory failure with hypoxia (11/20/22) Acute and chronic respiratory failure with hypoxia (11/20/22) Atelectasis (11/20/22) Dyspnea, unspecified (11/20/22) Dysphagia, oropharyngeal phase (11/20/22) Cachexia (11/20/22) Severe sepsis with septic shock (11/20/22) Personal history of other diseases of the circulatory system (11/20/22) Presence of coronary angioplasty implant and graft (11/20/22) Dependence on respirator [ventilator] status (11/20/22) Objective Data Objective Data Vital Signs: Vital Signs Temp Pulse Resp BP Pulse Ox O2 Del Method O2 Flow Rate 98.1 F 80 20 H 117/73 93 Bi-pap 4 12/02/22 03:15 12/02/22 04:30 12/02/22 03:15 12/02/22 03:15 12/02/22 04:30 12/02/22 03:30 12/02/22 01:25 FiO2 40 12/02/22 04:30 Oxygen Flow Rate (L/min) 4 Oxygen Delivery Method Bi-pap Weight: 103 lb 6.349 oz Body Mass Index (BMI) 21.7 Intake & Output: Intake and Output for Last 24 Hours 11/30/22 12/01/22 12/02/22 23:59 23:59 23:59 Intake Total 1968.3 / 1968.3 1322.2 / 1422.2 1844 / 1844 Output Total 1250 / 1250 1550 / 2150 900 / 900 Balance 718.3 / 718.3 -227.8 / -727.8 944 / 944 Medical Nutrition Assessment Dietitian: Malnutrition Criteria Met Start: 11/20/22 11:25 Freq: Status: Active Protocol: Document 11/28/22 10:28 (Rec: 11/28/22 10:28 AG [id number]) Nutrition Malnutrition Evidence of Malnutrition Exists Yes Malnutrition (severe): Chronic Evidenced By Suboptimal Energy Intake ( Severe),Weight Loss (Severe), Physical Changes (Moderate) Intake Problem Inadequate Oral Intake Etiology related to chewing/swallowing difficulty Signs/Symptoms as evidenced by NPO x 2 days Status Active Problem Clinical Problem Chronic Disease or Condition Related Malnutrition Etiology Severe protein-calorie malnutrition in the context of chronic disease related to inadequate oral/energy intake Signs/Symptoms as evidenced by estimated PO intake meeting <50% of 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, muscle/fat wasting visible in face, upper/lower extremities and torso and weight loss ~9% x less than 6 months with fluid likely masking additional wt loss Status Active Problem Recommendation Dietitian Recommendations/Changes Will maintain NPO status until appropriate for PO intake; recommend cardiac diet when medically indicated- texture/ consistency modifications per DEVICE REPAIR TECHNICIAN Lab / Micro Data Result Diagrams: 12/02/22 03:54 12/02/22 03:54 Labs: Laboratory Results - last 24 hr 11/22/22 12:40: Miscellaneous Cytology SEE PATHOLOGY REPORT 11/22/22 12:40: Miscellaneous Cytology SEE PATHOLOGY REPORT 11/26/22 13:52: Miscellaneous Cytology SEE PATHOLOGY REPORT 12/02/22 03:54: WBC 15.3 H, RBC 4.42, Hgb 10.1 L, Hct 34.0 L, MCV 76.9 L, MCH 22.9 L, MCHC 29.7 L, RDW Std Deviation 81.0 H, RDW Coeff of Angie 30.5 H, Plt Count 705 H, MPV 11.4, Immature Gran % (Auto) 0.700, Neut % (Auto) 91.4 H, Lymph % (Auto) 1.6 L, Milam % (Auto) 6.1, Eos % (Auto) 0.1, Baso % (Auto) 0.1, Absolute Neuts (auto) 14.0 H, Absolute Lymphs (auto) 0.24 L, Nucleated RBC % 0, Differential Comment SCANNED, Hypochromasia 1+, Anisocytosis 1+ 12/02/22 03:54: Sodium 135 L, Potassium 3.9, Chloride 101, Carbon Dioxide 32.0, Anion Gap 2 L, BUN 20 H, Creatinine 0.49 L, Estim Creat Clear Calc 84.75, Est GFR (MDRD) Af Amer 163, Est GFR (MDRD) Non-Af 134, BUN/Creatinine Ratio 40.8 H, Glucose 127 H, Calcium 8.1 L 12/02/22 03:54: APTT 29.2 Micro: Microbiology 11/26/22 13:52 Fluid - Thoracentesis Fluid Gram Stain - Final 11/26/22 13:52 Fluid - Thoracentesis Fluid Body Fluid Culture - Final No growth aerobically. 11/26/22 13:52 Fluid - Thoracentesis Fluid Anaerobic Culture - Final No anaerobic bacteria isolated. 11/29/22 10:55 Stool C. difficile DNA Amplification - Final 11/22/22 12:40 Wash - Bronchial Wash Gram Stain - Final 11/22/22 12:40 Wash - Bronchial Wash Respiratory Culture - Final Culture exhibits no growth. 11/22/22 12:40 Wash - Bronchial Wash Gram Stain - Final 11/22/22 12:40 Wash - Bronchial Wash Respiratory Culture - Final Culture exhibits no growth. 11/20/22 15:55 Sputum, Expectorated/Coughed Gram Stain - Final 11/20/22 15:55 Sputum, Expectorated/Coughed Respiratory Culture - Final Streptococcus pneumoniae 11/21/22 16:35 Sputum, Induced/Lukens Gram Stain - Final 11/21/22 16:35 Sputum, Induced/Lukens Respiratory Culture - Final Presumptive C albicans 11/20/22 14:00 Blood Culture (Wb) - Anticubital Left Bacteria Detection (PCR) - Final Streptococcus pneumoniae 11/20/22 14:00 Blood Culture (Wb) - Anticubital Left Blood Culture - Final Alpha hemolytic organism 11/20/22 13:55 Blood Culture (Wb) - Anticubital Right Blood Culture - Final Streptococcus pneumoniae 11/20/22 13:50 Urine Catheter - Catheter Urine Culture - Final Culture exhibits no growth. 11/20/22 14:57 Mucosa - Nasopharyngeal Influenza Types A,B Direct FA (SAMANTHA) - Final 11/20/22 13:50 Urine Catheter - Catheter Legionella Antigen - Final 11/20/22 13:50 Urine Catheter - Catheter Streptococcus pneumoniae Antigen (M - Final Rhythm Strip Rhythm Strip: Sinus Rhythm Rate: 82 Physical Exam Narrative Patient is awake and alert. Extubated on 11/27/2022. Patient had PEG tube 08/1022. Gradual improvement in breathing and blood pressure. Still very weak and dyspnea on exertion Physical exam General: Alert, responds appropriately to simple questions, Cooperative HEENT: Atraumatic, PERRLA, EOMI, Normocephalic Oral: ET and OG tube. Neck: Supple, No JVD, Negative Carotid Bruits Lungs: Air entry diminished in bilateral lung bases. Coarse crepitations. Dyspnea on exertion Cardiovascular: Sinus rhythm, Normal S1, Normal S2, PVCs, systolic murmur at LUSB Abdomen: Bowel Sounds Present, Soft, Non Tender, Non-Distended : Andino catheter. No renal angle tenderness. No suprapubic tenderness. Extremities: No edema, Capillary Refill Less than 3 Seconds Skin: No rashes, No breakdown Musculoskeletal: No Tenderness to Palpation of Joints or Extremities. ROM full. Muscle strength 4/5 at major lower extremity joints Neurological: Cranial nerves II-XII grossly intact, DTR 2+/4 Psych/Mental Status: Flat affect. Assessment & Plan Assessment/Plan (1) Acute and chronic respiratory failure with hypoxia: (2) Acute dyspnea: PLAN: Plan 1.? Acute on chronic hypoxic respiratory failure secondary to continued right pleural effusion and community-acquired pneumonia and strep bacteremia with septic shock Patient also had mild PE with heart strain as documented in CTPA chest subsegmental pulmonary embolism in the right upper lobe. Less likely cardiogenic shock. Patient patient had right thoracocentesis 525 ml of stephen-colored fluid drained on 11/26/2022. ? Blood cultures demonstrates strep pneumonia ?Continue broad spectrum antibiotics ?Continue diuretics depending upon hemodynamics and kidney function ? Continue with anticoagulation for subsegmental PEs, echo did demonstrate right heart strain 11/27: Patient is extubated today. Prior to that patient weaned off sedative and Levophed. On midodrine. On IV meropenem. 11/28: Patient was extubated yesterday. Very weak and fatigued. PT and OT. Thoracocentesis and [facility] culture does not show any growth. Urine output 350 mL since midnight. 850 mL last 24 hours yesterday 11/29: Patient on oxygen nasal cannula. Tmax 99.2 Fahrenheit. On Bumex 1 mg daily. Amiodarone 200 mg twice daily baby aspirin Plavix, and atorvastatin. 11/30: Patient has a rare and undiagnosed probably systemic disease and diagnosed by [facility] by extensive work-up. Patient on oxygen support on NIPPV at night. 12/01: I talked to patient and she said she wants to get a strong with rehab and then think of pleurodesis. Bevel Face Stoner And Polisher and I agree with her plan. Therefore discharge plan will be SNF. We will continue NIPPV as needed. 12/02: No significant change. Patient on 40% FiO2. Dyspnea on exertion. Thoracocentesis fluid negative for malignancy. BAL negative for malignant cells. 2.? CAD status post stent/HTN/HLD/chronic diastolic CHF/paroxysmal A-fib ? Can continue with aspirin via G-tube as well as Lipitor ?Weaned off norepinephrine. BP 115/72. On IV heparin drip. 11/28: Heart rate is controlled. Patient amiodarone drip changed to amiodarone oral. 11/29: Patient on Eliquis, baby aspirin and Plavix. H&H 9.8/32%. Platelet count 688. 3. Oropharyngeal dysphagia: Patient failed swallow. GI is consulted for PEG tube. On D5W for nutrition. 11/29: Seen by GI Dr. Carter. Plan for PEG tube tomorrow AM. Hold heparin drip midnight today. 11/30: Plan for PEG tube today. Patient will stay in ICU after PEG tube for monitoring and then transferred to PCU. Discussed with spacecraft systems engineer. 12/01: PEG tube. Patient tolerating tube feed. 12/02: Plan for cookie swallow test. 3.? Hypothyroidism ? Continue with Synthroid 4.? Severe chronic protein calorie malnutrition ? Continue with nutritional evaluation 5.? GERD ? Stable ? Continue with PPI 6. Chronic debilitation. PT and OT and plan for SNF DVT: On Eliquis after the procedure PEG tube. Charges/Coding Visit Charges Inpatient E&M: 57969 Subs Hosp L2
--- NOTE | 2022-12-02 08:54 | CASEMGMT ---
SW received a voice mail from Laurence at [facility]. They will re-review referral as they were initially thinking they could not manage patient due to her O2. Gisella Pires FIRESTOPPER INSTALLER FARRAH
--- NOTE | 2022-12-02 09:54 | CASEMGMT ---
SW was informed by SUPERVISOR SAFETY DEPOSIT that patient told her yesterday she wants to go to [facility]. Patient told RN that she knows someone at [facility] and knows they have beds and take patient's insurance. SW sent a referral to [facility] via [facility]. Gisella YAN
[2022-12-02] MEDS: Lansoprazole 15 MG Capsule.DR 30 MG GT (10:51)
[2022-12-02] MEDS: Midodrine HCl 5 MG Tablet 10 MG PO ×3 (10:51→17:35)
[2022-12-02] MEDS: Polyethylene Glycol 3350 17 GM PACKET GT (10:51)
[2022-12-02] MEDS: Bumetanide 0.5 MG Tablet PO (10:52)
[2022-12-02] MEDS: Aspirin 81 MG TAB.CHEW PO (10:52)
[2022-12-02] MEDS: Spironolactone 25 MG Tablet GT (10:52)
[2022-12-02] MEDS: APIXABAN 5 MG TABLET GT ×2 (10:53→23:46)
[2022-12-02] MEDS: Clopidogrel Bisulfate 75 MG Tablet PO (10:53)
[2022-12-02] MEDS: 0.9% Saline Lock 10 ML Syringe IV (11:07)
--- NOTE | 2022-12-02 11:09 | CASEMGMT ---
Alexsander Fernandes is asking when patient will be ready as patient looks complicated. ROSMERY spoke with physician and he thinks patient will be ready in the next day or so. ROSMERY also sent peg tube operative report and tube feed recommendations. ROSMERY let Alexsander Fernandes know this information. Gisella Pires UI PROGRAMMER FARRAH
[2022-12-02] MEDS: Amiodarone 200 MG Tablet PO ×2 (11:11→23:46)
--- NOTE | 2022-12-02 11:33 | CASEMGMT ---
[facility] feels patient is too complicated to be ready for discharge in the next day or so. However, they have not declined patient. Gisella Pires SAP ABAP DEVELOPER FARRAH
--- NOTE | 2022-12-02 11:47 | SP.MBSS_ITS ---
Modified Barium Swallow - Patient Information Study Date: 12/02/22 Study Time: 09:30 Direct Billable Minutes: 120 Total Minutes procedure & reportin Diagnosis: Oropharyngeal dysphagia (R13.12), COPD (J44.9) Referring Physician: Adrian Mcmanus Reason for Referral: Objectively assess swallow function, assess risk for aspiration, and determine recommendations for least restrictive diet textures and compensatory strategies to improve safety of swallow. Medical History: Kaitlin Everett is a 67 F who presented to the ED 11/19/22 at [facility] with complaints of shortness of breath, she underwent a left thoracentesis day before admission due to a chronic left pleural effusion, she is on chronic oxygen at home at 2 L/min. She came to the emergency room today with increasing shortness of breath, work- up in the emergency room included a chest x-ray showing an increasing left pleural effusion with left basilar atelectasis and/or infiltration. She was admitted to [place] [id number] for hypoxia and increased left pleural effusion. Pt was intubated 11/21/22 and extubated 11/27/22 at 0855. She was evaluated at bedside by ST and recommended NPO with plans for MBSS 11/30/22 prior to diet advancement. Pt was planned for PEG tube to be placed 11/30/22, so MBSS could not be completed that date. Study rescheduled to today. PMH includes alcohol abuse, CHF, COPD, former smoker, hx of NSTEMI, hypoxia, severe malnutrition (SEE H&P in EMR for full PMH). Current Diet Ordered: NPO w/ sips and chips Dentition: Natural Teeth, Missing Teeth Mental Status: WNL Respiratory Status: Oxygenating on 4L/M nasal cannula - 6L O2 via nasal cannula - Penetration-Aspiration Scale Penetration-Aspiration Scale: OBJECTIVE ASSESSMENT OF SWALLOW FUNCTION (QUANTITATIVE ? PER TRIAL): PENETRATION / ASPIRATION SCALE (JAVED): 1 = does not enter airway 2 = enters airway/above vocal folds/ejected 3 = enters airway/above vocal folds/not ejected 4 = enters airway/contacts vocal folds/ejected 5 = enters airway/contacts vocal folds/not ejected 6 = enters airway/below vocal folds/ejected 7 = enters airway/below vocal folds/not ejected despite effort 8 = enters airway/below vocal folds/no effort VIDEOFLOROSCOPIC SCALE SCORE (JAVED): Grade I = aspiration of material that has penetrated into the laryngeal vestibule, intact cough reflex Grade II = aspiration < 10 % of the bolus, intact cough reflex Grade III = aspiration of < 10 % of the bolus, reduced cough reflex or aspiration of > 10 % of the bolus, intact cough reflex Grade IV = aspiration of > 10 % of the bolus, reduced cough reflex - Penetration-Aspiration Scale Score Thin Liquid via teaspoon Result: 5= enters airways/contacts vocal folds/not ejected Thin Liquid via teaspoon Effortful swallow Result: 5= enters airways/contacts vocal folds/not ejected Farrell Thick Liquid via teaspoon Result: 5= enters airways/contacts vocal folds/not ejected - cued cough and re- swallow, which was mostly effective Thin Liquid via small single sip from cup Effortful swallow Result: 2= enter airway/above vocal folds/ejected Pudding via teaspoon with esophageal screen Result: 1= does not enter airway - silent post prandial aspiration of previous trial Thin Liquid via single sip from straw with esophageal screen Result: 8= enters airway/below vocal folds/no effort - cued cough and re- swallow, which was mostly effective in clearing contrast from the trachea and laryngeal vestibule Thin Liquid via small single sip from cup Effortful swallow Trial 2 Result: 5= enters airways/contacts vocal folds/not ejected Honey Thick Liquid via teaspoon Result: 1= does not enter airway - silent post prandial aspiration of previous trial, which was observed during this trial and the following two trials 1/4 Cookie Result: 1= does not enter airway Honey Thick Liquid via small single sip from cup Result: 1= does not enter airway - Oral Phase Labial Seal: Interlabial escape, no progression to anterior lip Tongue Control During Bolus Hold: Cohesive bolus between tongue to palatal seal Bolus Preparation/Mastication: Slow prolonged chewing/mashing with complete recollection Bolus Transport/Lingual Motion: Brisk tongue motion Oral Residue: Majority of bolus remaining - Pharyngeal Phase Initiation of Pharyngeal Swallow: Bolus head in valleculae Soft Palate Elevation: No bolus between soft palate and pharyngeal wall Laryngeal Elevation: Partial superior movement thyroid cart/partial apprx aryt- epig petiole Anterior Hyoid Excursion: Partial anterior movement Epiglottic Movement: No inversion Laryngeal Vestibule Closure at Height of Swallow: Incomplete; narrow column of air/contrast in laryngeal vestibule Pharyngeal Stripping Wave: Present - diminished Pharyngoesophageal Segment Opening: Minimal distension and minimal duration; marked obstruction of flow Tongue Base Retraction: Narrow column of contrast between tongue base & post. pharyngeal wall Pharyngeal Residue: Collection of residue within or on pharyngeal structures - Esophageal Phase Esophageal Clearance: Esophageal retention w/ retrograde flow below pharyngoesophageal seg. - Diagnosis/Impression Diagnosis: Mild-moderate oropharyngeal phase dysphagia (R13.12) Impression: Pt appeared and verbalized she was short of breath upon arrival to [facility]. BOTTLING MACHINE OPERATOR called RNHolly, who stated pt did require BIPAP this morning. BOTTLING MACHINE OPERATOR requested Holly's presence for study as the patient has been requiring increased oxygen demands this morning. Pt arrived on 4L O2/min via nasal cannula, RN increased O2 to 6L for study. SpO2 monitored by RN throughout study, and patient maintained appropriate saturations (mid-upper 90s) throughout study. The oral phase is primarily marked by... -Prolonged, but adequate mastication of 1/4 cookie. -Piecemeal deglutition observed during cookie trial; although, majority of cookie did effectively clear from oral cavity after 2 swallows, which the patient independently initiated. The pharyngeal phase is primarily marked by... -Decreased airway closure during the swallow due to decreased anterior hyoid excursion and laryngeal elevation. Little to no epiglottic inversion observed during the study. -Mild pharyngeal residues due decreased tongue base retraction, mildly diminished pharyngeal stripping wave, and mildly decreased UES opening/duration. -SILENT aspiration of thin liquid via straw, SILENT post prandial aspiration of residues remaining in the laryngeal vestibule after the swallow - likely thin liquids via cup with effortful swallow. Deep laryngeal penetration of thin by tsp, nectar by tsp, and thin by small cup sip with effortful swallow that did not fully eject after the swallow, placing patient at increased risk for post prandial aspiration. Cued cough was somewhat effective at clearing contrast from the laryngeal vestibule after the swallow. The esophageal phase is primarily marked by... -Retention of pudding barium throughout the esophagus with min retrograde flow remaining below UES, which mostly cleared with thin liquid wash by straw. - Recommendations Diet: NPO - PEG tube for maintaining nutrition and hydration needs. Comment: Will recommend skilled meal analysis of soft and bite size textures (IDDSI Level 6) and honey/moderately thick liquids (IDDSI Level 3) with BOTTLING MACHINE OPERATOR prior to diet advancement to ensure patient can tolerate the diet. Compensatory strategies will include small bites/sips, slow rate, alternate bites/sips 1:1 ratio, sitting upright, remain upright 30-60 min after meals. Due to patient requiring increased oxygen demands today and experiencing increased fatigue, will not recommend oral diet advancement on this date. Recommend Repeat Modified Barium Swallow: Yes Need for Skilled Speech Therapy Services: Yes Comment: Will recommend the patient for dysphagia therapy to address deficits in oropharyngeal swallow function. Will recommend the patient for oropharyngeal strengthening to improve lingual coordination, laryngeal elevation, and hyoid excursion. Would recommend exercises including Lingual Resistance, Kathy, CTAR, Effortful Swallow, and Miguel A. The patient would benefit from thorough education regarding diet recommendations and recommended compensatory strategies. Consider repeat MBSS after 2-4 weeks of implementation of oropharyngeal exercise program prior to diet advancement due to SILENT nature of aspiration. Recommended Referrals: GI Consult - If concerns for increased s/s of reflux or regurgitation despite use of strategies listed above once diet has been initiated, would consider GI consult. Education Completed: 1. Described result of evaluation., 7. Pt requires further education on strategies & risks. - Status Active ST Patient: Active - Contact Information [facility] Speech Therapy:: Ebony Locke M.A. [facility]-BOTTLING MACHINE OPERATOR Speech-Language Pathologist [facility] [address] [place] [address] [email or web address] [phone] 12/02/22 12:07
[2022-12-02] MEDS: guaiFENesin 10 ML UDC (200MG/10ML) GT ×3 (13:27→23:47)
[2022-12-02] MEDS: LORazepam 0.5 MG Tablet GT ×2 (13:27→23:47)
--- NOTE | 2022-12-02 14:22 | CASEMGMT ---
ROSMERY spoke with Parminder Sanchez about patient. They like [place] are also concerned with patient's respiratory status. SW let her know SW will keep them updated. Gisella Pires GROUND TRANSPORTATION OPERATOR FARRAH
--- NOTE | 2022-12-02 16:00 | CHAPLAIN ---
Type of Pastoral Visit ___ Initial Visit _x__ Follow-up Visit ___ On-call Visit ___ General Patient Visit ___ Spiritual Assessment ___ Family Conference ___ Bereavement ___ Rapid Response ___ Code Blue ___ Other (describe below) Pastoral Care Referral From _x__ Patient ___ Family ___ Nurse ___ Physician ___ Hr Business Partner ___ Fundraising Consultant ___ Other (describe below) Sacrament/Intervention _x__ Active listening ___ Anointing ___ Scientology ___ Bereavement ___ Communion ___ Angie exploration ___ _x__ Life review _x_ Prayer ___ Reconciliation ___ Sacrament of Sick _x__ Supportive presence ___ Wedding ___ Other (describe below) Pastoral Comments patient admits to having a rough night and some anxiety over her health; pt given calm presence at bedside with assurance of care; pt welcomes presence so she could talk about her feelings; she welcomes prayers; pt expresses thankfulness for support of her son
--- NOTE | 2022-12-02 17:15 | PCM.PROGNOTE ---
Subjective Subjective Patient said that she had a little bit of oral intake today. She is tolerating tube feedings without any problems. She has not developed any diarrhea from the tube feedings. Objective Data Objective Data Vital Signs: Vital Signs Temp Pulse Resp BP Pulse Ox O2 Del Method O2 Flow Rate 97.4 F L 83 18 123/70 H 97 Nasal Cannula 5 12/02/22 15:46 12/02/22 15:46 12/02/22 15:46 12/02/22 15:46 12/02/22 15:46 12/02/22 15:50 12/02/22 15:50 FiO2 40 12/02/22 10:45 Oxygen Flow Rate (L/min) 5 Oxygen Delivery Method Nasal Cannula Weight: 103 lb 6.349 oz Body Mass Index (BMI) 21.7 Intake & Output: Intake and Output for Last 24 Hours 11/30/22 12/01/22 12/02/22 23:59 23:59 23:59 Intake Total 1968.3 / 1968.3 1322.2 / 1422.2 2182 / 2182 Output Total 1250 / 1250 1550 / 2150 900 / 900 Balance 718.3 / 718.3 -227.8 / -727.8 1282 / 1282 Medical Nutrition Assessment Dietitian: Malnutrition Criteria Met Start: 11/20/22 11:25 Freq: Status: Active Protocol: Document 11/28/22 10:28 (Rec: 11/28/22 10:28 [id number]) Nutrition Malnutrition Evidence of Malnutrition Exists Yes Malnutrition (severe): Chronic Evidenced By Suboptimal Energy Intake ( Severe),Weight Loss (Severe), Physical Changes (Moderate) Intake Problem Inadequate Oral Intake Etiology related to chewing/swallowing difficulty Signs/Symptoms as evidenced by NPO x 2 days Status Active Problem Clinical Problem Chronic Disease or Condition Related Malnutrition Etiology Severe protein-calorie malnutrition in the context of chronic disease related to inadequate oral/energy intake Signs/Symptoms as evidenced by estimated PO intake meeting <50% of estimated nutritional needs x > 3 wks lpta, 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, muscle/fat wasting visible in face, upper/lower extremities and torso and weight loss ~9% x less than 6 months with fluid likely masking additional wt loss Status Active Problem Recommendation Dietitian Recommendations/Changes Will maintain NPO status until appropriate for PO intake; recommend cardiac diet when medically indicated- texture/ consistency modifications per INSOLVENCY PRACTITIONER Lab / Micro Data Result Diagrams: 12/02/22 03:54 12/02/22 03:54 Labs: Laboratory Results - last 24 hr 11/22/22 12:40: Miscellaneous Cytology SEE PATHOLOGY REPORT 11/22/22 12:40: Miscellaneous Cytology SEE PATHOLOGY REPORT 11/26/22 13:52: Miscellaneous Cytology SEE PATHOLOGY REPORT 12/02/22 03:54: WBC 15.3 H, RBC 4.42, Hgb 10.1 L, Hct 34.0 L, MCV 76.9 L, MCH 22.9 L, MCHC 29.7 L, RDW Std Deviation 81.0 H, RDW Coeff of Angie 30.5 H, Plt Count 705 H, MPV 11.4, Immature Gran % (Auto) 0.700, Neut % (Auto) 91.4 H, Lymph % (Auto) 1.6 L, Morrow % (Auto) 6.1, Eos % (Auto) 0.1, Baso % (Auto) 0.1, Absolute Neuts (auto) 14.0 H, Absolute Lymphs (auto) 0.24 L, Nucleated RBC % 0, Differential Comment SCANNED, Hypochromasia 1+, Anisocytosis 1+ 12/02/22 03:54: Sodium 135 L, Potassium 3.9, Chloride 101, Carbon Dioxide 32.0, Anion Gap 2 L, BUN 20 H, Creatinine 0.49 L, Estim Creat Clear Calc 84.75, Est GFR (MDRD) Af Amer 163, Est GFR (MDRD) Non-Af 134, BUN/Creatinine Ratio 40.8 H, Glucose 127 H, Calcium 8.1 L 12/02/22 03:54: APTT 29.2 Micro: Microbiology 11/26/22 13:52 Fluid - Thoracentesis Fluid Gram Stain - Final 11/26/22 13:52 Fluid - Thoracentesis Fluid Body Fluid Culture - Final No growth aerobically. 11/26/22 13:52 Fluid - Thoracentesis Fluid Anaerobic Culture - Final No anaerobic bacteria isolated. 11/29/22 10:55 Stool C. difficile DNA Amplification - Final 11/22/22 12:40 Wash - Bronchial Wash Gram Stain - Final 11/22/22 12:40 Wash - Bronchial Wash Respiratory Culture - Final Culture exhibits no growth. 11/22/22 12:40 Wash - Bronchial Wash Gram Stain - Final 11/22/22 12:40 Wash - Bronchial Wash Respiratory Culture - Final Culture exhibits no growth. 11/20/22 15:55 Sputum, Expectorated/Coughed Gram Stain - Final 11/20/22 15:55 Sputum, Expectorated/Coughed Respiratory Culture - Final Streptococcus pneumoniae 11/21/22 16:35 Sputum, Induced/Lukens Gram Stain - Final 11/21/22 16:35 Sputum, Induced/Lukens Respiratory Culture - Final Presumptive C albicans 11/20/22 14:00 Blood Culture (Wb) - Anticubital Left Bacteria Detection (PCR) - Final Streptococcus pneumoniae 11/20/22 14:00 Blood Culture (Wb) - Anticubital Left Blood Culture - Final Alpha hemolytic organism 11/20/22 13:55 Blood Culture (Wb) - Anticubital Right Blood Culture - Final Streptococcus pneumoniae 11/20/22 13:50 Urine Catheter - Catheter Urine Culture - Final Culture exhibits no growth. 11/20/22 14:57 Mucosa - Nasopharyngeal Influenza Types A,B Direct FA (SAMANTHA) - Final 11/20/22 13:50 Urine Catheter - Catheter Legionella Antigen - Final 11/20/22 13:50 Urine Catheter - Catheter Streptococcus pneumoniae Antigen (M - Final Rhythm Strip Rhythm Strip: Sinus Rhythm Rate: 82 Physical Exam Narrative Patient is awake and alert. Extubated on 11/27/2022. Patient had PEG tube 08/1022. Gradual improvement in breathing and blood pressure. Still very weak and dyspnea on exertion Physical exam General: Alert, responds appropriately to simple questions, Cooperative HEENT: Atraumatic, PERRLA, EOMI, Normocephalic Oral: ET and OG tube. Neck: Supple, No JVD, Negative Carotid Bruits Lungs: Air entry diminished in bilateral lung bases. Coarse crepitations. Dyspnea on exertion Cardiovascular: Sinus rhythm, Normal S1, Normal S2, PVCs, systolic murmur at LUSB Abdomen: Bowel Sounds Present, Soft, Non Tender, Non-Distended : Andino catheter. No renal angle tenderness. No suprapubic tenderness. Extremities: No edema, Capillary Refill Less than 3 Seconds Skin: No rashes, No breakdown Musculoskeletal: No Tenderness to Palpation of Joints or Extremities. ROM full. Muscle strength 4/5 at major lower extremity joints Neurological: Cranial nerves II-XII grossly intact, DTR 2+/4 Psych/Mental Status: Flat affect. Assessment & Plan Assessment/Plan (1) Acute and chronic respiratory failure with hypoxia: (2) Acute dyspnea: (3) Oropharyngeal dysphagia: (4) Cachexia: PLAN: Plan 67-year-old with history of chronic bilateral pleural effusions who presented with acute on chronic hypoxic respiratory failure secondary to continued right pleural effusion and community-acquired pneumonia and strep bacteremia with septic shock. On this admission she was discovered to have a subsegmental pulmonary embolism in the right upper lobe. She was intubated and successfully extubated. She recently failed a swallow study and was determined to have oropharyngeal dysphagia and is not able to orally provide proper nutrition. She underwent endoscopic percutaneous gastrostomy tube placement. Recommendation: No problem with anticoagulation. Tube feedings as per primary team and nutrition services. Encourage p.o. intake if cleared by speech pathology. Charges/Coding Visit Charges Inpatient E&M: 85168 [facility] L3
[2022-12-02] MEDS: Jevity 1.5 1,000 ML 38 ML GT (17:52)
[2022-12-02] MEDS: Atorvastatin Calcium 40 MG Tablet PO (23:46)
[2022-12-03] VITALS (27 sets, daily range): BP systolic 89–140; BP diastolic 58–106; PULSE 73–100; RESP 12–29; TEMP 36.4–37.8; O2SAT 86–100; BMI 21.7
[2022-12-03] MEDS: Levothyroxine 88 MCG Tablet GT (05:32)
[2022-12-03] MEDS: guaiFENesin 10 ML UDC (200MG/10ML) GT ×5 (05:32→21:43)
[2022-12-03] MEDS: Menthol/Lanolin/Calamine/Znox 113 GM Tube 1 APPLIC TOPICAL ×3 (05:32→21:48)
[2022-12-03] MEDS: LORazepam 0.5 MG Tablet GT ×2 (05:46→21:42)
[2022-12-03] MEDS: Ipratropium 0.5 MG/2.5 ML SOLUTION INHALATION ×3 (06:58→20:00)
--- NOTE | 2022-12-03 07:54 | TREXTCAR_ITS ---
Diet Diet Order/Speech Therapy: 11/27/22 09:48 Diet: Nothing Per Oral Is pt able to select menu?: Yes Diet Comments: ok for sips and chips, critical oral meds in puree Wound(s) coccyx: Wound Type: Pressure Injury rt ear: Wound Type: Abrasion abd: Wound Type: Surgical Incision Problem/Diagnosis (1) Acute and chronic respiratory failure with hypoxia: Status: Chronic Code(s): J96.21 - Acute and chronic respiratory failure with hypoxia (2) Acute dyspnea: Status: Deleted Code(s): R06.00 - Dyspnea, unspecified (3) Oropharyngeal dysphagia: Status: Acute Code(s): R13.12 - Dysphagia, oropharyngeal phase (4) Cachexia: Status: Acute Code(s): R64 - Cachexia Plan 1.? Acute on chronic hypoxic respiratory failure secondary to continued right pleural effusion and community-acquired pneumonia and strep bacteremia with septic shock Patient also had mild PE with heart strain as documented in CTPA chest subsegmental pulmonary embolism in the right upper lobe. Less likely cardiogenic shock. Patient patient had right thoracocentesis 525 ml of stephen-colored fluid drained on 11/26/2022. ? Blood cultures demonstrates strep pneumonia ?Continue broad spectrum antibiotics ?Continue diuretics depending upon hemodynamics and kidney function ? Continue with anticoagulation for subsegmental PEs, echo did demonstrate right heart strain 11/27: Patient is extubated today. Prior to that patient weaned off sedative and Levophed. On midodrine. On IV meropenem. 11/28: Patient was extubated yesterday. Very weak and fatigued. PT and OT. Thoracocentesis and bronc culture does not show any growth. Urine output 350 mL since midnight. 850 mL last 24 hours yesterday 11/29: Patient on oxygen nasal cannula. Tmax 99.2 Fahrenheit. On Bumex 1 mg daily. Amiodarone 200 mg twice daily baby aspirin Plavix, and atorvastatin. 11/30: Patient has a rare and undiagnosed probably systemic disease and diagnosed by [facility] by extensive work-up. Patient on oxygen support on NIPPV at night. 12/01: I talked to patient and she said she wants to get a strong with rehab and then think of pleurodesis. Pelt Inspector and I agree with her plan. Therefore discharge plan will be SNF. We will continue NIPPV as needed. 12/02: No significant change. Patient on 40% FiO2. Dyspnea on exertion. Thoracocentesis fluid negative for malignancy. BAL negative for malignant cells. 2.? CAD status post stent/HTN/HLD/chronic diastolic CHF/paroxysmal A-fib ? Can continue with aspirin via G-tube as well as Lipitor ?Weaned off norepinephrine. BP 115/72. On IV heparin drip. 11/28: Heart rate is controlled. Patient amiodarone drip changed to amiodarone oral. 11/29: Patient on Eliquis, baby aspirin and Plavix. H&H 9.8/32%. Platelet count 688. 3. Oropharyngeal dysphagia: Patient failed swallow. GI is consulted for PEG tube. On D5W for nutrition. 11/29: Seen by GI DrLeonardo Carter. Plan for PEG tube tomorrow AM. Hold heparin drip midnight today. 11/30: Plan for PEG tube today. Patient will stay in ICU after PEG tube for monitoring and then transferred to PCU. Discussed with still operator gin. 12/01: PEG tube. Patient tolerating tube feed. 12/02: Plan for cookie swallow test. 3.? Hypothyroidism ? Continue with Synthroid 4.? Severe chronic protein calorie malnutrition ? Continue with nutritional evaluation 5.? GERD ? Stable ? Continue with PPI 6. Chronic debilitation. PT and OT and plan for SNF DVT: On Eliquis after the procedure PEG tube. Allergies/Procedures Done in Hospital Allergies amoxicillin [From Augmentin] Allergy (Verified 11/19/22 18:15) Rash clavulanic acid [From Augmentin] Allergy (Verified 11/19/22 18:15) Rash doxycycline Allergy (Verified 11/19/22 18:15) Rash tiotropium Adverse Reaction (Unknown, Verified 11/19/22 18:15) PT UNSURE OF REACTION budesonide [From Symbicort] Adverse Reaction (Verified 11/19/22 18:15) high feeling bumetanide Adverse Reaction (Verified 11/19/22 18:15) PT UNSURE OF REACTION cefdinir Adverse Reaction (Verified 11/19/22 18:15) Bleeding pt reported red stool clindamycin Adverse Reaction (Verified 11/19/22 18:15) Abd cramps/diarrhea GI upset fluticasone [From Flonase] Adverse Reaction (Verified 11/19/22 18:15) HEADACHES formoterol [From Symbicort] Adverse Reaction (Verified 11/19/22 18:15) HIGH FEELING furosemide Adverse Reaction (Verified 11/19/22 13:12) NEEDS FOLLOW-UP pt reports dry mouth and weakness w/ many diuretics spironolactone Adverse Reaction (Verified 11/19/22 13:12) NEEDS FOLLOW-UP pt reports dry mouth and weakness w/ many diuretics umeclidinium Adverse Reaction (Verified 11/19/22 13:12) Shortness of breath SOB, myalgia Dietary and Speech Recommendations Dietitian Recommendations/Changes: NPO per CUMULATIVE EFFECTS ANALYST;Will continue via PEG Jevity 1.5 at 38mL/hr with 95mL H2O flush q4 hours to provide 1368kcal, 58 grams protein and 1263mL water. Will monitor tolerance and transition to bolus feeds as indicated. Discharge Plan Admission Admit Date/Time: 11/20/22 12:09 Attending Provider: Adrian Mcmanus Primary Care Provider: Atul Garcia Consulting Providers: Atul Mcfadden ; Nomi Bunn ; Bernard Mcguire ; Darrin Meredith ; Navi Peterson ; Mal Iniguez ; Vicki Sahu FIRE PREVENTION SPECIALIST Instructions Patient Instructions: ANTONY RN Thoracentesis Dc Discharge Orders/Prescriptions Prescriptions: No Action potassium chloride 10 mEq tablet extended release 60 meq PO BID levothyroxine 88 mcg tablet 88 mcg PO MOTUWETHFRSA Rx Instructions: one and one half tablet wednesday montelukast 10 mg tablet 10 mg PO DAILY vitamin B complex [B Complex-Vitamin B12] Tablet 1 tab PO DAILY metoprolol tartrate 25 mg tablet 12.5 mg PO BID Qty: 120 3RF ipratropium-albuterol 20-100 mcg/actuation mist 1 puff inhalation Q4H Qty: 4 11RF alendronate 70 mg tablet PO omeprazole 20 MG capsule 40 mg PO DAILY Label Comments: ACID REFLUX albuterol sulfate 1 INHALER inhaler 2 puff INHALATION Q4H PRN PRN (Reason: Bronchodialation) Label Comments: SHORTNESS OF BREATH multivitamin Tablet 1 tab PO DAILY Label Comments: SUPPLEMENT lorazepam 0.5 MG tablet 0.5 mg PO BID PRN PRN (Reason: Anxiety) Label Comments: Anxiety ascorbic acid (vitamin C) 500 MG tablet,chewable 500 mg PO BIDCM Qty: 0 0RF Rx Instructions: Take with iron budesonide 180 mcg/actuation aerosol powdr breath activated 1 inh INHALATION BID levothyroxine 88 mcg tablet 132 mcg PO GEORGES Label Comments: TAKE 1 TABLET BY MOUTH ONCE DAILY EXCEPT WEDNESDAY TAKE 1&1/2 TABLET ON AN EMPTY STOMACH Mucinex 1,200 mg Tablet Extended Release 12hr 1,200 mg PO BID acetaminophen 500 mg Tablet 1,000 mg PO Q6H PRN (Reason: Pain) colchicine 0.6 mg tablet 0.6 mg PO DAILY Qty: 30 11RF spironolactone 25 mg tablet 25 mg PO DAILY Qty: 90 3RF atorvastatin 40 mg tablet 40 mg PO QHS Qty: 90 3RF aspirin 81 mg tablet,delayed release (DR/EC) 81 mg PO DAILY Qty: 90 3RF clopidogrel 75 mg tablet 75 mg PO DAILY Qty: 90 3RF bumetanide 1 mg tablet 1 mg PO DAILY Qty: 90 3RF Referrals / Follow Up: Atul Garcia MD [Primary Care Provider] -
[2022-12-03] MEDS: Midodrine HCl 5 MG Tablet 10 MG PO ×2 (09:00→21:42)
[2022-12-03] MEDS: Aspirin 81 MG TAB.CHEW PO (09:00)
[2022-12-03] MEDS: Clopidogrel Bisulfate 75 MG Tablet PO (09:21)
[2022-12-03] MEDS: Spironolactone 25 MG Tablet GT (09:21)
[2022-12-03] MEDS: APIXABAN 5 MG TABLET GT ×2 (09:21→21:42)
[2022-12-03] MEDS: Lansoprazole 15 MG Capsule.DR 30 MG GT (09:21)
[2022-12-03] MEDS: Bumetanide 0.5 MG Tablet PO (09:22)
[2022-12-03] MEDS: Amiodarone 200 MG Tablet PO ×2 (09:22→21:42)
[2022-12-03] MEDS: 0.9% Saline Lock 10 ML Syringe IV (09:25)
--- NOTE | 2022-12-03 09:39 | CASEMGMT ---
ROSMERY updated [place] and Parminder Sanchez that patient will be going to ICU today and ROSMERY will keep them informed. Gisella Pires INSTRUCTOR INDUSTRIAL DESIGN INSIDE SALES COORDINATOR
[2022-12-03] MEDS: Loperamide 2 MG Capsule PO (10:44)
--- NOTE | 2022-12-03 10:50 | RAD_ITS ---
INDICATION: hypoxia EXAMINATION/TECHNIQUE: X-RAY - XR Chest 1 View COMPARISON: November 29, 2022 FINDINGS: LINES/DEVICES: There is a left-sided PICC line in place terminating within the expected region of the superior vena cava. LUNGS: There are grossly stable bilateral pleural effusions, left greater than right. MEDIASTINUM AND CARDIOVASCULAR STRUCTURES: Cardiac silhouette not enlarged. Central airways and mediastinal contour are unremarkable. BONES AND SOFT TISSUES: Unremarkable. RAD/Chest 1 View (Portable) IMPRESSION: Stable bilateral pleural effusions, left greater than right, cannot exclude associated bibasilar consolidation. Electronically Signed: Wanda Chavez MD at 11:29 EDT ,
--- NOTE | 2022-12-03 12:32 | PN.CC_ITS ---
Assessment & Plan Assessment/Plan (1) Acute and chronic respiratory failure with hypoxia: (2) History of coronary artery stent placement: (3) Bronchiectasis, non-tuberculous: (4) Recurrent pleural effusion: (5) Cachexia: (6) Sepsis due to Streptococcus pneumoniae with acute hypoxic respiratory failure and septic shock: PLAN: Plan RECOMMENDATIONS: 1. Wean midodrine 2. Completed 10 days of antibiotics. Would not reinitiate 3. Advance tube feeds. Okay to use Imodium 4. Continue aggressive pulmonary toileting 5. Will need evaluated by CT surgery for possible pleurodesis 6. PT/OT secondary to debility 7. We will attempt BiPAP breaks in the next 1 to 2 hours. IMPRESSIONS: 1. Acute on chronic hypoxic respiratory failure secondary to pneumonia and possible amyloid Patient appears to be back to her baseline respiratory status. Patient does have a significant loculated left pleural effusion that will eventually require pleurodesis by CT surgery. Patient may have an element of aspiration adding to complications, which should improve following PEG. Patient appears to be doing well with rapid decrease in FiO2. Patient does have bilateral pleural effusions. 2. Recurrent pleural effusion/bronchiectasis/sepsis secondary to pneumococcus Patient appears to be doing okay at this time. Patient still has significant bronchial secretions, but this would be expected. Patient does have adequate blood pressure at this time. Blood pressure is much improved. Will attempt to decrease midodrine therapy. Patient has completed a course of antibiotics. 3. Debility/dysphagia Patient with significant cachexia and debility. Patient discussed with GI and has been given a PEG tube to standardize nutrition. Patient will likely need a pleurodesis in the future and may benefit from nutritional optimization. Patient is having some osmotic diarrhea, so Imodium will be given. 4. CAD/COPD/advanced age/anemia/history of iatrogenic pneumothorax Complicates care, management, recovery and prognosis. Patient potentially could go to the floor following PEG tube, but given comorbidities. Patient appears to be at her baseline at this time. Patient follow-up in office as previously planned Subjective Subjective Called to see the patient emergently after being transferred back to the intensive care unit. Patient reportedly has been on BiPAP for almost 24 hours with progressively increasing oxygen requirements. Patient had reported increased dyspnea. Patient denied any change in cough. Patient reportedly was on AVAPS 100% FiO2 to maintain saturations. On arrival to the intensive care unit, pulse oximeter was changed in location. Saturations were noted to be 100%. Chest x-ray showed bilateral pleural effusions. FiO2 has been slowly weaned, but patient is still requiring BiPAP therapy. Patient is not reporting any change in condition with decrease in FiO2. No hypotension has been noted. Objective Data Objective Data Vital Signs: Vital Signs Temp Pulse Resp BP Pulse Ox O2 Del Method O2 Flow Rate 37.8 C H 87 16 98/65 94 Bi-pap 4 12/03/22 12:00 12/03/22 12:00 12/03/22 12:00 12/03/22 12:00 12/03/22 12:00 12/03/22 12:00 12/03/22 09:29 FiO2 45 12/03/22 12:00 Oxygen Flow Rate (L/min) 4 Oxygen Delivery Method Bi-pap Weight: 46.9 kg Body Mass Index (BMI) 21.7 Intake & Output: Intake and Output for Last 24 Hours 12/01/22 12/02/22 12/03/22 23:59 23:59 23:59 Intake Total 1322.2 / 1422.2 4019.53 / 4019.53 290 / 290 Output Total 1550 / 2150 2650 / 3450 1750 / 1750 Balance -227.8 / -727.8 1369.53 / 569.53 -1460 / -1460 Medical Nutrition Assessment Dietitian: Malnutrition Criteria Met Start: 11/20/22 11:25 Freq: Status: Active Protocol: Document 11/28/22 10:28 (Rec: 11/28/22 10:28 [id number]) Nutrition Malnutrition Evidence of Malnutrition Exists Yes Malnutrition (severe): Chronic Evidenced By Suboptimal Energy Intake ( Severe),Weight Loss (Severe), Physical Changes (Moderate) Intake Problem Inadequate Oral Intake Etiology related to chewing/swallowing difficulty Signs/Symptoms as evidenced by NPO x 2 days Status Active Problem Clinical Problem Chronic Disease or Condition Related Malnutrition Etiology Severe protein-calorie malnutrition in the context of chronic disease related to inadequate oral/energy intake Signs/Symptoms as evidenced by estimated PO intake meeting <50% of estimated nutritional needs 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, muscle/fat wasting visible in face, upper/lower extremities and torso and weight loss ~9% x less than 6 months with fluid likely masking additional wt loss Status Active Problem Recommendation Dietitian Recommendations/Changes Will maintain NPO status until appropriate for PO intake; recommend cardiac diet when medically indicated- texture/ consistency modifications per STORE GROCERY MERCHANDISER Lab / Micro Data Attestation: I reviewed the patient's lab results. Result Diagrams: 12/02/22 03:54 12/02/22 03:54 Micro: Microbiology 11/26/22 13:52 Fluid - Thoracentesis Fluid Gram Stain - Final 11/26/22 13:52 Fluid - Thoracentesis Fluid Body Fluid Culture - Final No growth aerobically. 11/26/22 13:52 Fluid - Thoracentesis Fluid Anaerobic Culture - Final No anaerobic bacteria isolated. 11/29/22 10:55 Stool C. difficile DNA Amplification - Final 11/22/22 12:40 Wash - Bronchial Wash Gram Stain - Final 11/22/22 12:40 Wash - Bronchial Wash Respiratory Culture - Final Culture exhibits no growth. 11/22/22 12:40 Wash - Bronchial Wash Gram Stain - Final 11/22/22 12:40 Wash - Bronchial Wash Respiratory Culture - Final Culture exhibits no growth. 11/20/22 15:55 Sputum, Expectorated/Coughed Gram Stain - Final 11/20/22 15:55 Sputum, Expectorated/Coughed Respiratory Culture - Final Streptococcus pneumoniae 11/21/22 16:35 Sputum, Induced/Lukens Gram Stain - Final 11/21/22 16:35 Sputum, Induced/Lukens Respiratory Culture - Final Presumptive C albicans 11/20/22 14:00 Blood Culture (Wb) - Anticubital Left Bacteria Detection (P CR) - Final Streptococcus pneumoniae 11/20/22 14:00 Blood Culture (Wb) - Anticubital Left Blood Culture - Final Alpha hemolytic organism 11/20/22 13:55 Blood Culture (Wb) - Anticubital Right Blood Culture - Final Streptococcus pneumoniae 11/20/22 13:50 Urine Catheter - Catheter Urine Culture - Final Culture exhibits no growth. 11/20/22 14:57 Mucosa - Nasopharyngeal Influenza Types A,B Direct FA (SAMANTHA) - Final 11/20/22 13:50 Urine Catheter - Catheter Legionella Antigen - Final 11/20/22 13:50 Urine Catheter - Catheter Streptococcus pneumoniae Antigen (M - Final Radiography Diagnostic Testing: Radiology Impression Chest X-Ray 12/03/22 10:50 IMPRESSION: Stable bilateral pleural effusions, left greater than right, cannot exclude associated bibasilar consolidation. Electronically Signed: Wanda Chavez MD at 11:29 EDT , Rhythm Strip Rhythm Strip: Sinus Rhythm Rate: 87 Physical Exam Const alert and oriented x3 Constitutional Narrative: On BiPAP during my evaluation. Good synchrony noted. No accessory muscle use noted. General Appearance: frail HEENT normocephalic and head/scalp atraumatic Eyes PERRL, EOMs intact bilaterally and conjunctivae normal Neck supple General: trachea midline Chest inspection of chest normal Resp Resp Narrative: Slightly increased respiratory effort Auscultation: diminished lung sounds; Negative for rales, rhonchi or wheezes Percussion: dullness Lower: right and left Cardio regular rate, regular rhythm, S1 normal heart sound and S2 normal heart sound Cardio Narrative: Currently in normal sinus rhythm GI normal to inspection, nondistended, normoactive bowel sounds GI Narrative: PEG is clean, dry and intact Inspection: GI tube present Extremity no clubbing, cyanosis or edema Skin no rashes or lesions noted Neuro oriented x3, CN's II-XII intact bilaterally, moves all extremities and no focal motor deficits Psych cooperative Charges/Coding Visit Charges Inpatient E&M: 97826 Subs Hosp L3
--- NOTE | 2022-12-03 13:09 | PN.HOSP_ITS ---
Reason for Visit Reason for Visit: Diagnoses Sepsis due to Streptococcus pneumoniae (11/20/22) Chronic obstructive pulmonary disease, unspecified (11/20/22) Bronchiectasis, uncomplicated (11/20/22) Pleural effusion, not elsewhere classified (11/20/22) Acute respiratory failure with hypoxia (11/20/22) Acute and chronic respiratory failure with hypoxia (11/20/22) Atelectasis (11/20/22) Dyspnea, unspecified (11/20/22) Dysphagia, oropharyngeal phase (11/20/22) Cachexia (11/20/22) Severe sepsis with septic shock (11/20/22) Personal history of other diseases of the circulatory system (11/20/22) Presence of coronary angioplasty implant and graft (11/20/22) Dependence on respirator [ventilator] status (11/20/22) Follow-up for acute on chronic hypoxic respiratory failure. Objective Data Objective Data Vital Signs: Vital Signs Temp Pulse Resp BP Pulse Ox O2 Del Method O2 Flow Rate 100.1 F H 87 16 98/65 94 Bi-pap 4 12/03/22 12:00 12/03/22 12:00 12/03/22 12:00 12/03/22 12:00 12/03/22 12:00 12/03/22 12:00 12/03/22 09:29 FiO2 45 12/03/22 12:00 Oxygen Flow Rate (L/min) 4 Oxygen Delivery Method Bi-pap Weight: 103 lb 6.349 oz Body Mass Index (BMI) 21.7 Intake & Output: Intake and Output for Last 24 Hours 12/01/22 12/02/22 12/03/22 23:59 23:59 23:59 Intake Total 1322.2 / 1422.2 4019.53 / 4019.53 290 / 290 Output Total 1550 / 2150 2650 / 3450 1750 / 1750 Balance -227.8 / -727.8 1369.53 / 569.53 -1460 / -1460 Medical Nutrition Assessment Dietitian: Malnutrition Criteria Met Start: 11/20/22 11:25 Freq: Status: Active Protocol: Document 11/28/22 10:28 AG (Rec: 11/28/22 10:28 AG [id number]) Nutrition Malnutrition Evidence of Malnutrition Exists Yes Malnutrition (severe): Chronic Evidenced By Suboptimal Energy Intake ( Severe),Weight Loss (Severe), Physical Changes (Moderate) Intake Problem Inadequate Oral Intake Etiology related to chewing/swallowing difficulty Signs/Symptoms as evidenced by NPO x 2 days Status Active Problem Clinical Problem Chronic Disease or Condition Related Malnutrition Etiology Severe protein-calorie malnutrition in the context of chronic disease related to inadequate oral/energy intake Signs/Symptoms as evidenced by estimated PO intake meeting <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, muscle/fat wasting visible in face, upper/lower extremities and torso and weight loss ~9% x less than 6 months with fluid likely masking additional wt loss Status Active Problem Recommendation Dietitian Recommendations/Changes Will maintain NPO status until appropriate for PO intake; recommend cardiac diet when medically indicated- texture/ consistency modifications per STUDIO MODEL Lab / Micro Data Result Diagrams: 12/02/22 03:54 12/02/22 03:54 Micro: Microbiology 11/26/22 13:52 Fluid - Thoracentesis Fluid Gram Stain - Final 11/26/22 13:52 Fluid - Thoracentesis Fluid Body Fluid Culture - Final No growth aerobically. 11/26/22 13:52 Fluid - Thoracentesis Fluid Anaerobic Culture - Final No anaerobic bacteria isolated. 11/29/22 10:55 Stool C. difficile DNA Amplification - Final 11/22/22 12:40 Wash - Bronchial Wash Gram Stain - Final 11/22/22 12:40 Wash - Bronchial Wash Respiratory Culture - Final Culture exhibits no growth. 11/22/22 12:40 Wash - Bronchial Wash Gram Stain - Final 11/22/22 12:40 Wash - Bronchial Wash Respiratory Culture - Final Culture exhibits no growth. 11/20/22 15:55 Sputum, Expectorated/Coughed Gram Stain - Final 11/20/22 15:55 Sputum, Expectorated/Coughed Respiratory Culture - Final Streptococcus pneumoniae 11/21/22 16:35 Sputum, Induced/Lukens Gram Stain - Final 11/21/22 16:35 Sputum, Induced/Lukens Respiratory Culture - Final Presumptive C albicans 11/20/22 14:00 Blood Culture (Wb) - Anticubital Left Bacteria Detection (PCR) - Final Streptococcus pneumoniae 11/20/22 14:00 Blood Culture (Wb) - Anticubital Left Blood Culture - Final Alpha hemolytic organism 11/20/22 13:55 Blood Culture (Wb) - Anticubital Right Blood Culture - Final Streptococcus pneumoniae 11/20/22 13:50 Urine Catheter - Catheter Urine Culture - Final Culture exhibits no growth. 11/20/22 14:57 Mucosa - Nasopharyngeal Influenza Types A,B Direct FA (SAMANTHA) - Final 11/20/22 13:50 Urine Catheter - Catheter Legionella Antigen - Final 11/20/22 13:50 Urine Catheter - Catheter Streptococcus pneumoniae Antigen (M - Final Radiography Diagnostic Testing: Radiology Impression Chest X-Ray 12/03/22 10:50 IMPRESSION: Stable bilateral pleural effusions, left greater than right, cannot exclude associated bibasilar consolidation. Electronically Signed: Wanda Chavez MD at 11:29 EDT , Rhythm Strip Rhythm Strip: Sinus Rhythm Rate: 87 Physical Exam Narrative Patient is awake, mild lethargy. Extubated on 11/27/2022. Patient had PEG tube 08/1022. Patient short of breath. On AVAPS, went into respiratory distress during nursing change of diaper. Tidal volume increased him to 800 mL may be due to air leak/respiratory distress. Tachypneic. Patient transferred to ICU. Physical exam General: Awake, fatigued, lethargy. On AVAPS HEENT: Atraumatic, PERRLA, EOMI, Normocephalic Oral: On AVAPS. Neck: Supple, No JVD, Negative Carotid Bruits Lungs:?Moderate respiratory distress on AVAPS. BiPAP alarm. Dyspnea at rest. Tachypneic/labored breathing. Cardiovascular: Sinus rhythm, Normal S1, Normal S2, PVCs, systolic murmur at LUSB Abdomen: PEG tube. On feeding. Bowel Sounds Present, Soft, Non Tender, Non- Distended : Andino catheter. No renal angle tenderness.? No suprapubic tenderness. Extremities: No edema, Capillary Refill Less than 3 Seconds Skin: No rashes, No breakdown Musculoskeletal: No Tenderness to Palpation of Joints or Extremities.? ROM full.? Muscle strength 4/5 at major lower extremity joints Neurological: Cranial nerves II-XII grossly intact, DTR? 2+/4 Psych/Mental Status: Flat affect. Assessment & Plan Assessment/Plan (1) Acute and chronic respiratory failure with hypoxia: (2) Acute dyspnea: (3) Oropharyngeal dysphagia: (4) Cachexia: PLAN: Plan 1.? Acute on chronic hypoxic respiratory failure secondary to continued right pleural effusion and community-acquired pneumonia and strep bacteremia with septic shock Patient also had mild PE with heart strain as documented in CTPA chest subsegmental pulmonary embolism in the right upper lobe.? Less likely cardiogenic shock. Patient patient had right thoracocentesis 525 ml of stephen-colored fluid drained on 11/26/2022. ? Blood cultures demonstrates strep pneumonia ?Continue broad spectrum antibiotics ?Continue diuretics depending upon hemodynamics and kidney function ? Continue with anticoagulation for subsegmental PEs, echo did demonstrate right heart strain 11/27: Patient is extubated today.? Prior to that patient weaned off sedative and Levophed.? On midodrine.? On IV meropenem. 11/28: Patient was extubated yesterday.? Very weak and fatigued.? PT and OT.? Thoracocentesis and bronc culture does not show any growth.? Urine output 350 mL since midnight.? 850 mL last 24 hours yesterday 11/29: Patient on oxygen nasal cannula.? Tmax 99.2 Fahrenheit.? On Bumex 1 mg daily.? Amiodarone 200 mg twice daily baby aspirin Plavix, and atorvastatin. 11/30: Patient has a rare and undiagnosed probably systemic disease and diagnosed by [facility] by extensive work-up.? Patient on oxygen support on NIPPV? at night. 12/01: I talked to patient and she said she wants to get a strong with rehab and then think of pleurodesis.? Flux Plant Operator and I agree with her plan.? Therefore discharge plan will be SNF. We will continue NIPPV as needed. 12/02: No significant change.? Patient on 40% FiO2.? Dyspnea on exertion.? Thoracocentesis fluid negative for malignancy.? BAL negative for malignant cells. 12/03: Patient was found to be in respiratory distress with alarm on AVAPS setting. Tidal volume at times going up to 800 probably due to air leak or respiratory distress therefore patient transferred back to ICU. Discussed with the gluing machine offbearer. 2.? CAD status post stent/HTN/HLD/chronic diastolic CHF/paroxysmal A-fib ? Can continue with aspirin via G-tube as well as Lipitor ?Weaned off norepinephrine.? BP 115/72.? On IV heparin drip. 11/28: Heart rate is controlled.? Patient amiodarone drip changed to amiodarone oral. 11/29: Patient on Eliquis, baby aspirin and Plavix.? H&H 9.8/32%.? Platelet count 688. 12/03: Hemoglobin 10.1 on baseline. 3.? Oropharyngeal dysphagia: Patient failed swallow.? GI is consulted for PEG tube.? On D5W for nutrition. 11/29: Seen by GI Dr. Carter.? Plan for PEG tube tomorrow AM.? Hold heparin drip midnight today. 11/30: Plan for PEG tube today.? Patient will stay in ICU after PEG tube for monitoring and then transferred to PCU.? Discussed with gluing machine offbearer. 12/01: PEG tube.? Patient tolerating tube feed. 12/02: Plan for cookie swallow test. 12/03: Modified barium swallow reported mild to moderate oropharyngeal dysphagia with esophageal retention. Speech therapist recommended n.p.o. with PEG tube feeding and hydration. 3.? Hypothyroidism ? Continue with Synthroid 4.? Severe chronic protein calorie malnutrition ? Continue with nutritional evaluation 5.? GERD ? Stable ? Continue with PPI 6.? Chronic debilitation.? PT and OT and plan for SNF DVT: On Eliquis after the procedure PEG tube. Charges/Coding Addendum Addendum: Total time of the visit including total time spent in counseling or coordination of care, (more than 50% of the total time, spent in obtaining medical information from nurses and other ancillary care providers,explaining to the patient about labs, imaging, diagnosis and management of active complex medical conditions), discussion with gluing machine offbearer, respiratory therapist, review of labs and imaging is 50 minutes. Visit Charges Inpatient E&M: 70185 Subs Hosp L3
[2022-12-03] MEDS: Acetaminophen 325 MG Tablet 650 MG PO ×2 (13:29→19:36)
--- NOTE | 2022-12-03 15:41 | NURSING ---
12/03/22@0900- PT FOUND TO BE 78% ON BIPAP AVAPS 40%. PT WAS INCREASED TO 100% AND RT AND DR. BRAGA WAS CALLED TO BEDSIDE. PT APPEARS FATIGUED AND STATES I AM TIRED. PT TOOK OVER 20 MINS TO IMPROVE SATURATIONS TO 84%. DR. BRAGA WANTS PT MOVED TO ICU FOR INCREASED MONITORING. PT CARL HOOKER WAS CALLED AT WORK, #[phone], AND WAS UPDATED. REPORT CALLED TO MARCELA CANAS ON ICU.
--- NOTE | 2022-12-03 16:33 | PCM.PROGNOTE ---
Subjective Subjective Patient is still very weak and requiring supplemental oxygen. She underwent a swallow study today. Objective Data Objective Data Vital Signs: Vital Signs Temp Pulse Resp BP Pulse Ox O2 Del Method O2 Flow Rate 99.8 F H 88 22 H 90/62 95 Nasal Cannula 3 12/03/22 16:00 12/03/22 16:00 12/03/22 16:00 12/03/22 16:00 12/03/22 16:00 12/03/22 16:00 12/03/22 16:00 FiO2 45 12/03/22 12:00 Oxygen Flow Rate (L/min) 3 Oxygen Delivery Method Nasal Cannula Weight: 103 lb 2.821 oz Body Mass Index (BMI) 21.7 Intake & Output: Intake and Output for Last 24 Hours 12/01/22 12/02/22 12/03/22 23:59 23:59 23:59 Intake Total 1322.2 / 1422.2 4019.53 / 4019.53 385 / 385 Output Total 1550 / 2150 2650 / 3450 1750 / 1750 Balance -227.8 / -727.8 1369.53 / 569.53 -1365 / -1365 Medical Nutrition Assessment Dietitian: Malnutrition Criteria Met Start: 11/20/22 11:25 Freq: Status: Active Protocol: Document 11/28/22 10:28 (Rec: 11/28/22 10:28 [id number]) Nutrition Malnutrition Evidence of Malnutrition Exists Yes Malnutrition (severe): Chronic Evidenced By Suboptimal Energy Intake ( Severe),Weight Loss (Severe), Physical Changes (Moderate) Intake Problem Inadequate Oral Intake Etiology related to chewing/swallowing difficulty Signs/Symptoms as evidenced by NPO x 2 days Status Active Problem Clinical Problem Chronic Disease or Condition Related Malnutrition Etiology Severe protein-calorie malnutrition in the context of chronic disease related to inadequate oral/energy intake Signs/Symptoms as evidenced by estimated PO intake 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, muscle/fat wasting visible in face, upper/lower extremities and torso and weight loss ~9% x less than 6 months with fluid likely masking additional wt loss Status Active Problem Recommendation Dietitian Recommendations/Changes Will maintain NPO status until appropriate for PO intake; recommend cardiac diet when medically indicated- texture/ consistency modifications per FAMILY NURSE PRACTITIONER Lab / Micro Data Result Diagrams: 12/02/22 03:54 12/02/22 03:54 Micro: Microbiology 11/26/22 13:52 Fluid - Thoracentesis Fluid Gram Stain - Final 11/26/22 13:52 Fluid - Thoracentesis Fluid Body Fluid Culture - Final No growth aerobically. 11/26/22 13:52 Fluid - Thoracentesis Fluid Anaerobic Culture - Final No anaerobic bacteria isolated. 11/29/22 10:55 Stool C. difficile DNA Amplification - Final 11/22/22 12:40 Wash - Bronchial Wash Gram Stain - Final 11/22/22 12:40 Wash - Bronchial Wash Respiratory Culture - Final Culture exhibits no growth. 11/22/22 12:40 Wash - Bronchial Wash Gram Stain - Final 11/22/22 12:40 Wash - Bronchial Wash Respiratory Culture - Final Culture exhibits no growth. 11/20/22 15:55 Sputum, Expectorated/Coughed Gram Stain - Final 11/20/22 15:55 Sputum, Expectorated/Coughed Respiratory Culture - Final Streptococcus pneumoniae 11/21/22 16:35 Sputum, Induced/Lukens Gram Stain - Final 11/21/22 16:35 Sputum, Induced/Lukens Respiratory Culture - Final Presumptive C albicans 11/20/22 14:00 Blood Culture (Wb) - Anticubital Left Bacteria Detection (PCR) - Final Streptococcus pneumoniae 11/20/22 14:00 Blood Culture (Wb) - Anticubital Left Blood Culture - Final Alpha hemolytic organism 11/20/22 13:55 Blood Culture (Wb) - Anticubital Right Blood Culture - Final Streptococcus pneumoniae 11/20/22 13:50 Urine Catheter - Catheter Urine Culture - Final Culture exhibits no growth. 11/20/22 14:57 Mucosa - Nasopharyngeal Influenza Types A,B Direct FA (SAMANTHA) - Final 11/20/22 13:50 Urine Catheter - Catheter Legionella Antigen - Final 11/20/22 13:50 Urine Catheter - Catheter Streptococcus pneumoniae Antigen (M - Final Radiography Diagnostic Testing: Radiology Impression Chest X-Ray 12/03/22 10:50 IMPRESSION: Stable bilateral pleural effusions, left greater than right, cannot exclude associated bibasilar consolidation. Electronically Signed: Wanda Chavez MD at 11:29 EDT , Rhythm Strip Rhythm Strip: Sinus Rhythm Rate: 87 Physical Exam Narrative Patient is awake and alert. Extubated on 11/27/2022. Patient had PEG tube 08/1022. Gradual improvement in breathing and blood pressure. Still very weak and dyspnea on exertion Physical exam General: Alert, responds appropriately to simple questions, Cooperative HEENT: Atraumatic, PERRLA, EOMI, Normocephalic Oral: ET and OG tube. Neck: Supple, No JVD, Negative Carotid Bruits Lungs: Air entry diminished in bilateral lung bases. Coarse crepitations. Dyspnea on exertion Cardiovascular: Sinus rhythm, Normal S1, Normal S2, PVCs, systolic murmur at LUSB Abdomen: Bowel Sounds Present, Soft, Non Tender, Non-Distended : Andino catheter. No renal angle tenderness. No suprapubic tenderness. Extremities: No edema, Capillary Refill Less than 3 Seconds Skin: No rashes, No breakdown Musculoskeletal: No Tenderness to Palpation of Joints or Extremities. ROM full. Muscle strength 4/5 at major lower extremity joints Neurological: Cranial nerves II-XII grossly intact, DTR 2+/4 Psych/Mental Status: Flat affect. Assessment & Plan Assessment/Plan (1) Acute and chronic respiratory failure with hypoxia: (2) Acute dyspnea: (3) Oropharyngeal dysphagia: (4) Cachexia: PLAN: Plan 67-year-old with history of chronic bilateral pleural effusions who presented with acute on chronic hypoxic respiratory failure secondary to continued right pleural effusion and community-acquired pneumonia and strep bacteremia with septic shock. On this admission she was discovered to have a subsegmental pulmonary embolism in the right upper lobe. She was intubated and successfully extubated. She recently failed a swallow study and was determined to have oropharyngeal dysphagia and is not able to orally provide proper nutrition. She underwent endoscopic percutaneous gastrostomy tube placement. Recommendation: No problem with anticoagulation. Tube feedings as per primary team and nutrition services. Modified barium swallow reported mild to moderate oropharyngeal dysphagia with esophageal retention.? Speech therapist recommended n.p.o. with PEG tube feeding and hydration. Charges/Coding Visit Charges Inpatient E&M: 90254 Subs Hosp L3
[2022-12-03] MEDS: Jevity 1.5 1,000 ML 38 ML GT (16:34)
[2022-12-03] MEDS: Atorvastatin Calcium 40 MG Tablet PO (21:42)
[2022-12-04] VITALS (24 sets, daily range): BP systolic 89–127; BP diastolic 66–79; PULSE 72–96; RESP 14–26; TEMP 36.7–37.9; O2SAT 90–99; BMI 20.7
[2022-12-04 03:50] LABS: Absolute Lymphocyte Count 0.26 X10^3/uL (0.83-4.51); Absolute Neutrophil Count 13.6 X10^3/uL (2.0-7.7); Basophil# 0.01 X10^3/uL; Basophil% 0.1 % (0-1); Eosinophil# 0.01 X10^3/uL; Eosinophils% 0.1 % (0-5); Hematocrit 33.3 % (37-47); Hemoglobin 9.8 g/dL (12.0-15.0); Lymphocyte # 0.26 X10^3/ul (0.83-4.51); Lymphocyte % 1.7 % (19-41); Mean Corp Hgb Conc 29.4 g/dL (32-36); Mean Corpuscular Hgb 22.9 pg (27.0-32.0); Mean Corpuscular Volume 77.8 fL (81-99); Mean Platelet Vol. 10.8 fl (6.2-12.0); Monocyte# 1.07 X10^3/uL; Monocyte% 7.1 % (0-10); NRBC Flagged by Analyzer 0 % (0-5); Neutrophil # 13.58 X10^3/uL (2.7-7.7); Neutrophil % 90.3 % (47-70); POSITIVE DIFFERENTIAL YES; POSITIVE MORPHOLOGY YES; Platelet Count 728 K/mm3 (150-450); RBC Distribution Width CV 30.5 % (11.6-14.6); RBC Distribution Width SD 79.5 fl (35.1-43.9); Red Blood Count 4.28 M/mm3 (4.2-5.4)
[2022-12-04 03:54] LABS: Differential Indicated SCAN CRITERIA MET
[2022-12-04 04:03] LABS: Differential Comment SCANNED; Platelet Estimate MKD INC (ADEQ); Platelet Morphology LARGE
[2022-12-04 04:05] LABS: Anion Gap 0 (5-15); BUN 20 mg/dL (7-18); BUN/Creat Ratio 44.7 RATIO (10-20); Calcium,Total 8.3 mg/dL (8.5-10.1); Chloride 97 mmol/L (98-107); Creatinine, Serum 0.45 mg/dL (0.55-1.02); EST Glomerular Filtration Rate 149 mL/min (>60); Est Glom Filt Rate - Afr Amer 181 mL/min (>60); Estimated Creatinine Clearance 92.08 ml/min; Glucose 101 mg/dL (74-106); Potassium 4.6 mmol/L (3.5-5.1); Sodium Level 135 mmol/L (136-145)
[2022-12-04] MEDS: Menthol/Lanolin/Calamine/Znox 113 GM Tube 1 APPLIC TOPICAL ×3 (05:33→21:52)
[2022-12-04] MEDS: Levothyroxine 88 MCG Tablet GT (05:33)
[2022-12-04] MEDS: Acetaminophen 325 MG Tablet 650 MG PO ×2 (05:33→17:10)
[2022-12-04] MEDS: guaiFENesin 10 ML UDC (200MG/10ML) GT ×4 (05:33→16:59)
[2022-12-04] MEDS: 0.9% Saline Lock 10 ML Syringe IV (05:34)
[2022-12-04] MEDS: Ipratropium 0.5 MG/2.5 ML SOLUTION INHALATION ×3 (07:00→19:42)
--- NOTE | 2022-12-04 07:17 | PCM.PN.INT ---
Assessment & Plan Assessment/Plan (1) Acute and chronic respiratory failure with hypoxia: (2) History of coronary artery stent placement: (3) Bronchiectasis, non-tuberculous: (4) Recurrent pleural effusion: (5) Cachexia: (6) Sepsis due to Streptococcus pneumoniae with acute hypoxic respiratory failure and septic shock: PLAN: Plan RECOMMENDATIONS: 1. Wean midodrine. Possibly discontinue tomorrow 2. Completed 10 days of antibiotics. Would not reinitiate 3. Advance tube feeds. Okay to use Imodium 4. Continue aggressive pulmonary toileting 5. Will need evaluated by CT surgery for possible pleurodesis 6. PT/OT secondary to debility 7. We will attempt to use BiPAP only with sleep IMPRESSIONS: 1. Acute on chronic hypoxic respiratory failure secondary to pneumonia and possible amyloid Patient appears to be back to her baseline respiratory status. Patient does have a significant loculated left pleural effusion that will eventually require pleurodesis by CT surgery. Patient may have an element of aspiration adding to complications, which should improve following PEG. Patient tolerating nasal cannula at this time. We will continue with supportive care. 2. Recurrent pleural effusion/bronchiectasis/sepsis secondary to pneumococcus Patient appears to be doing okay at this time. Patient still has significant bronchial secretions, but this would be expected. Patient does have adequate blood pressure at this time. Blood pressure is much improved. We will continue to wean midodrine. Will attempt to decrease midodrine therapy. Patient has completed a course of antibiotics. Low clinical suspicion for recurrence of infection given rapid improvement 3. Debility/dysphagia Patient with significant cachexia and debility. Patient discussed with GI and has been given a PEG tube to standardize nutrition. Patient will likely need a pleurodesis in the future and may benefit from nutritional optimization. Patient is having some osmotic diarrhea, so Imodium will be given. 4. CAD/COPD/advanced age/anemia/history of iatrogenic pneumothorax Complicates care, management, recovery and prognosis. Patient potentially could go to the floor following PEG tube, but given comorbidities. Patient appears to be at her baseline at this time. Patient follow-up in office as previously planned Subjective Subjective Patient did well overnight. Patient was able to be weaned to nasal cannula oxygen yesterday evening. Patient did use BiPAP overnight. Patient responded well to Imodium and has been tolerating tube feeds. Patient is not reporting any chest pain. Objective Data Objective Data Vital Signs: Vital Signs Temp Pulse Resp BP Pulse Ox O2 Del Method O2 Flow Rate 37.4 C H 95 18 117/71 95 Nasal Cannula 3 12/04/22 05:00 12/04/22 07:00 12/04/22 07:00 12/04/22 07:00 12/04/22 07:00 12/04/22 07:00 12/04/22 07:00 FiO2 40 12/04/22 03:00 Oxygen Flow Rate (L/min) 3 Oxygen Delivery Method Nasal Cannula Weight: 44.7 kg Body Mass Index (BMI) 20.7 Intake & Output: Intake and Output for Last 24 Hours 12/02/22 12/03/22 12/04/22 23:59 23:59 23:59 Intake Total 4019.53 / 4019.53 1442.6 / 1537.6 190 / 190 Output Total 2650 / 3450 3575 / 3575 250 / 250 Balance 1369.53 / 569.53 -2132.4 / -2037.4 -60 / -60 Medical Nutrition Assessment Dietitian: Malnutrition Criteria Met Start: 11/20/22 11:25 Freq: Status: Active Protocol: Document 11/28/22 10:28 AG (Rec: 11/28/22 10:28 [id number]) Nutrition Malnutrition Evidence of Malnutrition Exists Yes Malnutrition (severe): Chronic Evidenced By Suboptimal Energy Intake ( Severe),Weight Loss (Severe), Physical Changes (Moderate) Intake Problem Inadequate Oral Intake Etiology related to chewing/swallowing difficulty Signs/Symptoms as evidenced by NPO x 2 days Status Active Problem Clinical Problem Chronic Disease or Condition Related Malnutrition Etiology Severe protein-calorie malnutrition in the context of chronic disease related to inadequate oral/energy intake Signs/Symptoms as evidenced by estimated PO intake 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 Result Diagrams: 12/04/22 03:45 12/04/22 03:45 Labs: Laboratory Results - last 24 hr 12/04/22 03:45: WBC 15.0 H, RBC 4.28, Hgb 9.8 L, Hct 33.3 L, MCV 77.8 L, MCH 22.9 L, MCHC 29.4 L, RDW Std Deviation 79.5 H, RDW Coeff of Angie 30.5 H, Plt Count 728 H, MPV 10.8, Immature Gran % (Auto) 0.700, Neut % (Auto) 90.3 H, Lymph % (Auto) 1.7 L, [place] % (Auto) 7.1, Eos % (Auto) 0.1, Baso % (Auto) 0.1, Absolute Neuts (auto) 13.6 H, Absolute Lymphs (auto) 0.26 L, Nucleated RBC % 0, Differential Comment SCANNED, Platelet Estimate MKD INC, Plt Morphology Comment LARGE 12/04/22 03:45: Sodium 135 L, Potassium 4.6, Chloride 97 L, Carbon Dioxide 38.0 H, Anion Gap 0 L, BUN 20 H, Creatinine 0.45 L, Estim Creat Clear Calc 92.08, Est GFR (MDRD) Af Amer 181, Est GFR (MDRD) Non-Af 149, BUN/Creatinine Ratio 44.7 H, Glucose 101, Calcium 8.3 L Micro: Microbiology 11/26/22 13:52 Fluid - Thoracentesis Fluid Gram Stain - Final 11/26/22 13:52 Fluid - Thoracentesis Fluid Body Fluid Culture - Final No growth aerobically. 11/26/22 13:52 Fluid - Thoracentesis Fluid Anaerobic Culture - Final No anaerobic bacteria isolated. 11/29/22 10:55 Stool C. difficile DNA Amplification - Final 11/22/22 12:40 Wash - Bronchial Wash Gram Stain - Final 11/22/22 12:40 Wash - Bronchial Wash Respiratory Culture - Final Culture exhibits no growth. 11/22/22 12:40 Wash - Bronchial Wash Gram Stain - Final 11/22/22 12:40 Wash - Bronchial Wash Respiratory Culture - Final Culture exhibits no growth. 11/20/22 15:55 Sputum, Expectorated/Coughed Gram Stain - Final 11/20/22 15:55 Sputum, Expectorated/Coughed Respiratory Culture - Final Streptococcus pneumoniae 11/21/22 16:35 Sputum, Induced/Lukens Gram Stain - Final 11/21/22 16:35 Sputum, Induced/Lukens Respiratory Culture - Final Presumptive C albicans 11/20/22 14:00 Blood Culture (Wb) - Anticubital Left Bacteria Detection (PCR) - Final Streptococcus pneumoniae 11/20/22 14:00 Blood Culture (Wb) - Anticubital Left Blood Culture - Final Alpha hemolytic organism 11/20/22 13:55 Blood Culture (Wb) - Anticubital Right Blood Culture - Final Streptococcus pneumoniae 11/20/22 13:50 Urine Catheter - Catheter Urine Culture - Final Culture exhibits no growth. 11/20/22 14:57 Mucosa - Nasopharyngeal Influenza Types A,B Direct FA (SAMANTHA) - Final 11/20/22 13:50 Urine Catheter - Catheter Legionella Antigen - Final 11/20/22 13:50 Urine Catheter - Catheter Streptococcus pneumoniae Antigen (M - Final Radiography Diagnostic Testing: Radiology Impression Chest X-Ray 12/03/22 10:50 IMPRESSION: Stable bilateral pleural effusions, left greater than right, cannot exclude associated bibasilar consolidation. Electronically Signed: Wanda hCavez MD at 11:29 EDT , Rhythm Strip Rhythm Strip: Sinus Rhythm Rate: 76 Physical Exam Const alert and oriented x3 Constitutional Narrative: On nasal cannula during my evaluation. Good synchrony noted. No accessory muscle use noted. General Appearance: frail HEENT normocephalic and head/scalp atraumatic Eyes PERRL, EOMs intact bilaterally and conjunctivae normal Neck supple General: trachea midline Chest inspection of chest normal Resp Resp Narrative: Only mild conversational dyspnea Auscultation: diminished lung sounds; Negative for rales, rhonchi or wheezes Percussion: dullness Lower: right and left Cardio regular rate, regular rhythm, S1 normal heart sound and S2 normal heart sound Cardio Narrative: Currently in normal sinus rhythm GI normal to inspection, nondistended, normoactive bowel sounds GI Narrative: PEG is clean, dry and intact Inspection: GI tube present Extremity no clubbing, cyanosis or edema Skin no rashes or lesions noted Neuro oriented x3, CN's II-XII intact bilaterally, moves all extremities and no focal motor deficits Psych cooperative Charges/Coding Visit Charges Inpatient E&M: 49515 Subs Hosp L2
[2022-12-04] MEDS: LORazepam 0.5 MG Tablet GT ×2 (08:23→21:30)
[2022-12-04] MEDS: Aspirin 81 MG TAB.CHEW PO (08:24)
[2022-12-04] MEDS: Clopidogrel Bisulfate 75 MG Tablet PO (08:26)
[2022-12-04] MEDS: APIXABAN 5 MG TABLET GT ×2 (08:26→21:30)
[2022-12-04] MEDS: Lansoprazole 15 MG Capsule.DR 30 MG GT (08:27)
[2022-12-04] MEDS: Bumetanide 0.5 MG Tablet PO (08:27)
[2022-12-04] MEDS: Spironolactone 25 MG Tablet GT (08:28)
[2022-12-04] MEDS: Amiodarone 200 MG Tablet PO ×2 (08:28→21:28)
[2022-12-04] MEDS: predniSONE 20 MG Tablet GT (08:30)
[2022-12-04] MEDS: Midodrine HCl 5 MG Tablet 10 MG PO (08:37)
--- NOTE | 2022-12-04 10:37 | PN.HOSP_ITS ---
Subjective Subjective No issues overnight, doing well. Has been weaned to nasal cannula and she states that she was able to get some sleep last night Objective Data Objective Data Vital Signs: Vital Signs Temp Pulse Resp BP Pulse Ox O2 Del Method O2 Flow Rate 99.4 F H 95 18 117/71 90 Nasal Cannula 3 12/04/22 05:00 12/04/22 07:01 12/04/22 07:01 12/04/22 07:00 12/04/22 07:01 12/04/22 07:01 12/04/22 07:01 FiO2 40 12/04/22 03:00 Oxygen Flow Rate (L/min) 3 Oxygen Delivery Method Nasal Cannula Weight: 98 lb 8.746 oz Body Mass Index (BMI) 20.7 Intake & Output: Intake and Output for Last 24 Hours 12/03/22 12/04/22 12/05/22 03:59 03:59 03:59 Intake Total 3821.53 / 3821.53 1537.6 / 1632.6 95 / 95 Output Total 2850 / 2850 2775 / 2775 250 / 250 Balance 971.53 / 971.53 -1237.4 / -1142.4 -155 / -155 Medical Nutrition Assessment Dietitian: Malnutrition Criteria Met Start: 11/20/22 11:25 Freq: Status: Active Protocol: Document 11/28/22 10:28 (Rec: 11/28/22 10:28 [id number]) Nutrition Malnutrition Evidence of Malnutrition Exists Yes Malnutrition (severe): Chronic Evidenced By Suboptimal Energy Intake ( Severe),Weight Loss (Severe), Physical Changes (Moderate) Intake Problem Inadequate Oral Intake Etiology related to chewing/swallowing difficulty Signs/Symptoms as evidenced by NPO x 2 days Status Active Problem Clinical Problem Chronic Disease or Condition Related Malnutrition Etiology Severe protein-calorie malnutrition in the context of chronic disease related to inadequate oral/energy intake Signs/Symptoms as evidenced by estimated PO intake meeting <50% 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, muscle/fat wasting visible in face, upper/lower extremities and torso and weight loss ~9% x less than 6 months with fluid likely masking additional wt loss Status Active Problem Recommendation Dietitian Recommendations/Changes Will maintain NPO status until appropriate for PO intake; recommend cardiac diet when medically indicated- texture/ consistency modifications per PATIENT ACCOUNT LIAISON Lab / Micro Data Result Diagrams: 12/04/22 03:45 12/04/22 03:45 Labs: Laboratory Results - last 24 hr 12/04/22 03:45: WBC 15.0 H, RBC 4.28, Hgb 9.8 L, Hct 33.3 L, MCV 77.8 L, MCH 22.9 L, MCHC 29.4 L, RDW Std Deviation 79.5 H, RDW Coeff of Angie 30.5 H, Plt Count 728 H, MPV 10.8, Immature Gran % (Auto) 0.700, Neut % (Auto) 90.3 H, Lymph % (Auto) 1.7 L, [place] % (Auto) 7.1, Eos % (Auto) 0.1, Baso % (Auto) 0.1, Absolute Neuts (auto) 13.6 H, Absolute Lymphs (auto) 0.26 L, Nucleated RBC % 0, Differential Comment SCANNED, Platelet Estimate MKD INC, Plt Morphology Comment LARGE 12/04/22 03:45: Sodium 135 L, Potassium 4.6, Chloride 97 L, Carbon Dioxide 38.0 H, Anion Gap 0 L, BUN 20 H, Creatinine 0.45 L, Estim Creat Clear Calc 92.08, Est GFR (MDRD) Af Amer 181, Est GFR (MDRD) Non-Af 149, BUN/Creatinine Ratio 44.7 H, Glucose 101, Calcium 8.3 L Micro: Microbiology 11/26/22 13:52 Fluid - Thoracentesis Fluid Gram Stain - Final 11/26/22 13:52 Fluid - Thoracentesis Fluid Body Fluid Culture - Final No growth aerobically. 11/26/22 13:52 Fluid - Thoracentesis Fluid Anaerobic Culture - Final No anaerobic bacteria isolated. 11/29/22 10:55 Stool C. difficile DNA Amplification - Final 11/22/22 12:40 Wash - Bronchial Wash Gram Stain - Final 11/22/22 12:40 Wash - Bronchial Wash Respiratory Culture - Final Culture exhibits no growth. 11/22/22 12:40 Wash - Bronchial Wash Gram Stain - Final 11/22/22 12:40 Wash - Bronchial Wash Respiratory Culture - Final Culture exhibits no growth. 11/20/22 15:55 Sputum, Expectorated/Coughed Gram Stain - Final 11/20/22 15:55 Sputum, Expectorated/Coughed Respiratory Culture - Final Streptococcus pneumoniae 11/21/22 16:35 Sputum, Induced/Lukens Gram Stain - Final 11/21/22 16:35 Sputum, Induced/Lukens Respiratory Culture - Final Presumptive C albicans 11/20/22 14:00 Blood Culture (Wb) - Anticubital Left Bacteria Detection (PCR) - Final Streptococcus pneumoniae 11/20/22 14:00 Blood Culture (Wb) - Anticubital Left Blood Culture - Final Alpha hemolytic organism 11/20/22 13:55 Blood Culture (Wb) - Anticubital Right Blood Culture - Final Streptococcus pneumoniae 11/20/22 13:50 Urine Catheter - Catheter Urine Culture - Final Culture exhibits no growth. 11/20/22 14:57 Mucosa - Nasopharyngeal Influenza Types A,B Direct FA (SAMANTHA) - Final 11/20/22 13:50 Urine Catheter - Catheter Legionella Antigen - Final 11/20/22 13:50 Urine Catheter - Catheter Streptococcus pneumoniae Antigen (M - Final Radiography Diagnostic Testing: Radiology Impression Chest X-Ray 12/03/22 10:50 IMPRESSION: Stable bilateral pleural effusions, left greater than right, cannot exclude associated bibasilar consolidation. Electronically Signed: Wanda Chavez MD at 11:29 EDT , Rhythm Strip Rhythm Strip: Sinus Rhythm Rate: 76 Physical Exam Narrative General: Alert, Oriented x3, Cooperative, No apparent distress HEENT: Atraumatic, PERRLA, EOMI, Normocephalic Oral: Moist Mucosa Neck: Supple, No JVD Lungs: Diminished, Normal air movement, No rhonchi, No wheeze, No rales Cardiovascular: Regular rate, Regular Rhythm, Normal S1, Normal S2, No murmurs Abdomen: Soft, Non Tender, Non-Distended, No Hepato-splenomegaly Extremities: No edema, Capillary Refill Less than 3 Seconds Skin: No rashes, No breakdown Musculoskeletal: No Tenderness to Palpation of Joints or Extremities Neurological: Cranial nerves II-XII grossly intact, Motor Exam 5/5 strength throughout, Sensory exam intact to light touch and pain Psych/Mental Status: Normal Affect, Appropriate Assessment & Plan Assessment/Plan (1) Acute and chronic respiratory failure with hypoxia: (2) Acute dyspnea: (3) Oropharyngeal dysphagia: (4) Cachexia: PLAN: Plan 1.? Acute on chronic hypoxic respiratory failure secondary to continued right pleural effusion and community-acquired pneumonia and strep bacteremia with septic shock Patient also had mild PE with heart strain as documented in CTPA chest subsegmental pulmonary embolism in the right upper lobe.? Less likely cardiogenic shock. Patient patient had right thoracocentesis 525 ml of stephen-colored fluid drained on 11/26/2022. ? Blood cultures demonstrates strep pneumonia ?Continue broad spectrum antibiotics ?Continue diuretics depending upon hemodynamics and kidney function ? Continue with anticoagulation for subsegmental PEs, echo did demonstrate right heart strain 11/27: Patient is extubated today.? Prior to that patient weaned off sedative and Levophed.? On midodrine.? On IV meropenem. 11/28: Patient was extubated yesterday.? Very weak and fatigued.? PT and OT.? Thoracocentesis and bronc culture does not show any growth.? Urine output 350 mL since midnight.? 850 mL last 24 hours yesterday 11/29: Patient on oxygen nasal cannula.? Tmax 99.2 Fahrenheit.? On Bumex 1 mg daily.? Amiodarone 200 mg twice daily baby aspirin Plavix, and atorvastatin. 11/30: Patient has a rare and undiagnosed probably systemic disease and diagnosed by [facility] by extensive work-up.? Patient on oxygen support on NIPPV? at night. 12/01: I talked to patient and she said she wants to get a strong with rehab and then think of pleurodesis.? Sustainable Development Policy Analyst and I agree with her plan.? Therefore discharge plan will be SNF. We will continue NIPPV as needed. 12/02: No significant change.? Patient on 40% FiO2.? Dyspnea on exertion.? Thoracocentesis fluid negative for malignancy.? BAL negative for malignant cells. 12/03: Patient was found to be in respiratory distress with alarm on AVAPS setting. Tidal volume at times going up to 800 probably due to air leak or respiratory distress therefore patient transferred back to ICU. Discussed with the loft rigger. 12/04: Doing well maintaining oxygen saturations on nasal cannula we will continue to monitor 2.? CAD status post stent/HTN/HLD/chronic diastolic CHF/paroxysmal A-fib ? Can continue with aspirin via G-tube as well as Lipitor ?Weaned off norepinephrine.? BP 115/72.? On IV heparin drip. 11/28: Heart rate is controlled.? Patient amiodarone drip changed to amiodarone oral. 11/29: Patient on Eliquis, baby aspirin and Plavix.? H&H 9.8/32%.? Platelet count 688. 12/03: Hemoglobin 10.1 on baseline. 3.? Oropharyngeal dysphagia: Patient failed swallow.? GI is consulted for PEG tube.? On D5W for nutrition. 11/29: Seen by GI DrLeonardo Carter.? Plan for PEG tube tomorrow AM.? Hold heparin drip midnight today. 11/30: Plan for PEG tube today.? Patient will stay in ICU after PEG tube for monitoring and then transferred to PCU.? Discussed with loft rigger. 12/01: PEG tube.? Patient tolerating tube feed. 12/02: Plan for cookie swallow test. 12/03: Modified barium swallow reported mild to moderate oropharyngeal dysphagia with esophageal retention. Speech therapist recommended n.p.o. with PEG tube feeding and hydration. 3.? Hypothyroidism ? Continue with Synthroid 4.? Severe chronic protein calorie malnutrition ? Continue with nutritional evaluation 5.? GERD ? Stable ? Continue with PPI 6.? Chronic debilitation.? PT and OT and plan for SNF DVT: This Charges/Coding Visit Charges Inpatient E&M: 04590 Subs Hosp L2
--- NOTE | 2022-12-04 11:03 | CASEMGMT ---
Addendum entered by Erika Mae 12/04/22 11:40: Social Work Pt's son called SW back, we spoke about discharge plan for pt, SW explained that we do not have an acceptance from [facility] or [facility], but will follow up Wednesday when pt may be closer to ready for discharge. Son states that their choices for SNF are 1. [facility], 2. [facility], 3. [facility]. Pt's son states concern about pt going to [facility]. He is aware that TCU may not be able to take pt due to insurance. If none of these top 3 choices can take pt, they may still prefer someplace else than [facility]. SW explained we will reach out to [facility] Wednesday, to see if they can take pt, and if not, make the referrals to [facility] then [facility]. Son states understanding. Plan continues to be SNF, facility TBD. ADELAIDA Vogt Original Note: Social Work SW met w/pt in room, confirmed her first choice is [facility] and second choice is [facility]. SW explained we do not have an answer yet from either facility is pt is not medically ready. Pt states understanding. SW inquired if pt's children know what the plan is, she states they do not as she did not know the plan. Pt gave SW permission to call son Damion to update him. (Damion is POA, form scanned into summary tab of [employer]). SW called Damion, message left. SW texted physician, he states pt will not be ready for discharge until early next week. SW sent updates via [facility] to [facility] and [facility]. SW will follow up next week with referrals. ADELAIDA Vogt
--- NOTE | 2022-12-04 15:44 | NURSING ---
report called to [facility] for transfer to room 118, family notified of transfer
--- NOTE | 2022-12-04 17:04 | NURSING ---
[email or web address] per bed with o2 to room 118 , message left for son notifying of room #
[2022-12-04] MEDS: Atorvastatin Calcium 40 MG Tablet PO (21:31)
[2022-12-04] MEDS: Jevity 1.5 1,000 ML 38 ML GT (21:49)
[2022-12-05] VITALS (13 sets, daily range): BP systolic 95–116; BP diastolic 63–75; PULSE 83–96; RESP 12–32; TEMP 36.4–37.1; O2SAT 90–97; BMI 20.1
[2022-12-05] MEDS: Acetaminophen 325 MG Tablet 650 MG PO (03:37)
[2022-12-05] MEDS: Levothyroxine 88 MCG Tablet GT (06:09)
[2022-12-05] MEDS: Menthol/Lanolin/Calamine/Znox 113 GM Tube 1 APPLIC TOPICAL ×3 (06:09→23:30)
[2022-12-05] MEDS: Silver Nitrate (BKC) 1 EACH TOPICAL (07:32)
[2022-12-05] MEDS: Epinephrine (1 mg/ml) 1 MG/ML VIAL OPERA.SITE (07:33)
[2022-12-05 07:42] LABS: Absolute Lymphocyte Count 0.41 X10^3/uL (0.83-4.51); Absolute Neutrophil Count 14.8 X10^3/uL (2.0-7.7); Basophil# 0.03 X10^3/uL; Basophil% 0.2 % (0-1); Eosinophil# 0.05 X10^3/uL; Eosinophils% 0.3 % (0-5); Hematocrit 31.1 % (37-47); Hemoglobin 9.2 g/dL (12.0-15.0); Lymphocyte # 0.41 X10^3/ul (0.83-4.51); Lymphocyte % 2.5 % (19-41); Mean Corp Hgb Conc 29.6 g/dL (32-36); Mean Corpuscular Hgb 23.1 pg (27.0-32.0); Mean Corpuscular Volume 78.1 fL (81-99); Mean Platelet Vol. 11.4 fl (6.2-12.0); Monocyte% 7.8 % (0-10); NRBC Flagged by Analyzer 0 % (0-5); Neutrophil % 88.4 % (47-70); POSITIVE DIFFERENTIAL YES; POSITIVE MORPHOLOGY YES; Platelet Count 690 K/mm3 (150-450); RBC Distribution Width SD 82.2 fl (35.1-43.9); Red Blood Count 3.98 M/mm3 (4.2-5.4); White Blood Count 16.7 K/mm3 (4.4-11.0)
[2022-12-05 07:46] LABS: Differential Indicated SCAN CRITERIA MET
[2022-12-05 08:19] LABS: Platelet Estimate MOD INC (ADEQ); Platelet Morphology LARGE
[2022-12-05 08:20] LABS: Anisocytosis 1+; Hypochromasia 1+
[2022-12-05] MEDS: Ipratropium 0.5 MG/2.5 ML SOLUTION INHALATION ×3 (08:21→20:31)
[2022-12-05 08:29] LABS: Anion Gap 5 (5-15); BUN 22 mg/dL (7-18); BUN/Creat Ratio 46.7 RATIO (10-20); Calcium,Total 8.4 mg/dL (8.5-10.1); Chloride 96 mmol/L (98-107); Creatinine, Serum 0.47 mg/dL (0.55-1.02); EST Glomerular Filtration Rate 141 mL/min (>60); Est Glom Filt Rate - Afr Amer 170 mL/min (>60); Estimated Creatinine Clearance 81.95 ml/min; Glucose 91 mg/dL (74-106); Sodium Level 134 mmol/L (136-145)
--- NOTE | 2022-12-05 09:27 | PN.CC_ITS ---
Assessment & Plan Assessment/Plan (1) Acute and chronic respiratory failure with hypoxia: (2) History of coronary artery stent placement: (3) Bronchiectasis, non-tuberculous: (4) Recurrent pleural effusion: (5) Cachexia: (6) Sepsis due to Streptococcus pneumoniae with acute hypoxic respiratory failure and septic shock: PLAN: Plan RECOMMENDATIONS: 1. Discontinue midodrine 2. Completed 10 days of antibiotics. Would not reinitiate 3. Continue tube feeds. Okay to use Imodium 4. Continue aggressive pulmonary toileting 5. Will need evaluated by CT surgery for possible pleurodesis 6. PT/OT secondary to debility 7. We will attempt to use BiPAP only with sleep 8. Discharge planning IMPRESSIONS: 1. Acute on chronic hypoxic respiratory failure secondary to pneumonia and possible amyloid Patient appears to be back to her baseline respiratory status. Patient does have a significant loculated left pleural effusion that will eventually require pleurodesis by CT surgery. Patient may have an element of aspiration adding to complications, which should be improved following PEG. Patient tolerating nasal cannula at this time. We will continue with supportive care. 2. Recurrent pleural effusion/bronchiectasis/sepsis secondary to pneumococcus Patient appears to be doing okay at this time. Patient still has significant bronchial secretions, but this would be expected. Patient does have adequate blood pressure at this time. Blood pressure is much improved. Discontinue midodrine therapy. Patient has completed a course of antibiotics. Low clinical suspicion for recurrence of infection given rapid improvement 3. Debility/dysphagia Patient with significant cachexia and debility. Patient discussed with GI and has been given a PEG tube to standardize nutrition. Patient will likely need a pleurodesis in the future and may benefit from nutritional optimization. Patient is having some osmotic diarrhea, so Imodium will be given. 4. CAD/COPD/advanced age/anemia/history of iatrogenic pneumothorax Complicates care, management, recovery and prognosis. Patient potentially could go to the floor following PEG tube, but given comorbidities. Patient appears to be at her baseline at this time. Patient follow-up in office as previously planned Subjective Subjective Patient did well overnight. No acute issues were reported. Patient states the diarrhea is improved with Imodium. Patient subjectively feels stable from a r espiratory standpoint. Objective Data Objective Data Vital Signs: Vital Signs Temp Pulse Resp BP Pulse Ox O2 Del Method O2 Flow Rate 36.4 C L 84 18 108/75 96 Bi-pap 3 12/05/22 03:30 12/05/22 03:30 12/05/22 03:30 12/05/22 03:30 12/05/22 03:30 12/05/22 03:34 12/04/22 21:30 FiO2 40 12/05/22 03:34 Oxygen Flow Rate (L/min) 3 Oxygen Delivery Method Bi-pap Weight: 43.5 kg Body Mass Index (BMI) 20.1 Intake & Output: Intake and Output for Last 24 Hours 12/03/22 12/04/22 12/05/22 23:59 23:59 23:59 Intake Total 1442.6 / 1537.6 1525 / 1525 Output Total 3575 / 3575 1950 / 1950 300 / 300 Balance -2132.4 / -2037.4 -425 / -425 -300 / -300 Medical Nutrition Assessment Dietitian: Malnutrition Criteria Met Start: 11/20/22 11:25 Freq: Status: Active Protocol: Document 11/28/22 10:28 (Rec: 11/28/22 10:28 [id number]) Nutrition Malnutrition Evidence of Malnutrition Exists Yes Malnutrition (severe): Chronic Evidenced By Suboptimal Energy Intake ( Severe),Weight Loss (Severe), Physical Changes (Moderate) Intake Problem Inadequate Oral Intake Etiology related to chewing/swallowing difficulty Signs/Symptoms as evidenced by NPO x 2 days Status Active Problem Clinical Problem Chronic Disease or Condition Related Malnutrition Etiology Severe protein-calorie malnutrition in the context of chronic disease related to inadequate oral/energy intake Signs/Symptoms as evidenced by estimated PO intake meeting <50% of 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, muscle/fat wasting visible in face, upper/lower extremities and torso and weight loss ~9% x less than 6 months with fluid likely masking additional wt loss Status Active Problem Recommendation Dietitian Recommendations/Changes Will maintain NPO status until appropriate for PO intake; recommend cardiac diet when medically indicated- texture/ consistency modifications per PROPERTY INSURANCE INSPECTOR Lab / Micro Data Result Diagrams: 12/05/22 06:45 12/05/22 06:45 Labs: Laboratory Results - last 24 hr 12/05/22 06:45: WBC 16.7 H, RBC 3.98 L, Hgb 9.2 L, Hct 31.1 L, MCV 78.1 L, MCH 23.1 L, MCHC 29.6 L, RDW Std Deviation 82.2 H, RDW Coeff of Angie 31.0 H, Plt Count 690 H, MPV 11.4, Immature Gran % (Auto) 0.800, Neut % (Auto) 88.4 H, Lymph % (Auto) 2.5 L, [place] % (Auto) 7.8, Eos % (Auto) 0.3, Baso % (Auto) 0.2, Absolute Neuts (auto) 14.8 H, Absolute Lymphs (auto) 0.41 L, Nucleated RBC % 0, Platelet Estimate MOD INC, Plt Morphology Comment LARGE, Hypochromasia 1+, Anisocytosis 1+ 12/05/22 06:45: Sodium 134 L, Potassium 4.0, Chloride 96 L, Carbon Dioxide 33.0 H, Anion Gap 5, BUN 22 H, Creatinine 0.47 L, Estim Creat Clear Calc 81.95, Est GFR (MDRD) Af Amer 170, Est GFR (MDRD) Non-Af 141, BUN/Creatinine Ratio 46.7 H, Glucose 91, Calcium 8.4 L Micro: Microbiology 11/26/22 13:52 Fluid - Thoracentesis Fluid Gram Stain - Final 11/26/22 13:52 Fluid - Thoracentesis Fluid Body Fluid Culture - Final No growth aerobically. 11/26/22 13:52 Fluid - Thoracentesis Fluid Anaerobic Culture - Final No anaerobic bacteria isolated. 11/29/22 10:55 Stool C. difficile DNA Amplification - Final 11/22/22 12:40 Wash - Bronchial Wash Gram Stain - Final 11/22/22 12:40 Wash - Bronchial Wash Respiratory Culture - Final Culture exhibits no growth. 11/22/22 12:40 Wash - Bronchial Wash Gram Stain - Final 11/22/22 12:40 Wash - Bronchial Wash Respiratory Culture - Final Culture exhibits no growth. 11/20/22 15:55 Sputum, Expectorated/Coughed Gram Stain - Final 11/20/22 15:55 Sputum, Expectorated/Coughed Respiratory Culture - Final Streptococcus pneumoniae 11/21/22 16:35 Sputum, Induced/Lukens Gram Stain - Final 11/21/22 16:35 Sputum, Induced/Lukens Respiratory Culture - Final Presumptive C albicans 11/20/22 14:00 Blood Culture (Wb) - Anticubital Left Bacteria Detection (PCR) - Final Streptococcus pneumoniae 11/20/22 14:00 Blood Culture (Wb) - Anticubital Left Blood Culture - Final Alpha hemolytic organism 11/20/22 13:55 Blood Culture (Wb) - Anticubital Right Blood Culture - Final Streptococcus pneumoniae 11/20/22 13:50 Urine Catheter - Catheter Urine Culture - Final Culture exhibits no growth. 11/20/22 14:57 Mucosa - Nasopharyngeal Influenza Types A,B Direct FA (SAMANTHA) - Final 11/20/22 13:50 Urine Catheter - Catheter Legionella Antigen - Final 11/20/22 13:50 Urine Catheter - Catheter Streptococcus pneumoniae Antigen (M - Final Rhythm Strip Rhythm Strip: Sinus Rhythm Rate: 76 Physical Exam Const alert and oriented x3 Constitutional Narrative: On nasal cannula during my evaluation. No accessory muscle use noted. General Appearance: frail HEENT normocephalic and head/scalp atraumatic Eyes PERRL, EOMs intact bilaterally and conjunctivae normal Neck supple General: trachea midline Chest inspection of chest normal Resp normal respiratory effort Auscultation: diminished lung sounds; Negative for rales, rhonchi or wheezes Percussion: dullness Lower: right and left Cardio regular rate, regular rhythm, S1 normal heart sound and S2 normal heart sound Cardio Narrative: Currently in normal sinus rhythm GI normal to inspection, nondistended, normoactive bowel sounds GI Narrative: PEG is clean, dry and intact Inspection: GI tube present Extremity no clubbing, cyanosis or edema Skin no rashes or lesions noted Neuro oriented x3, CN's II-XII intact bilaterally, moves all extremities and no focal motor deficits Neuro Narrative: Alert and able to follow simple commands. Sensorium / Orientation: sedated on vent Psych cooperative Charges/Coding Visit Charges Inpatient E&M: 53003 Subs Hosp L2
[2022-12-05] MEDS: Bumetanide 0.5 MG Tablet PO (09:30)
[2022-12-05] MEDS: Amiodarone 200 MG Tablet PO (09:30)
[2022-12-05] MEDS: APIXABAN 5 MG TABLET GT ×2 (09:30→23:29)
[2022-12-05] MEDS: predniSONE 20 MG Tablet GT (09:31)
[2022-12-05] MEDS: Aspirin 81 MG TAB.CHEW PO (09:31)
[2022-12-05] MEDS: Spironolactone 25 MG Tablet GT (09:31)
[2022-12-05] MEDS: Lansoprazole 15 MG Capsule.DR 30 MG GT (09:32)
[2022-12-05] MEDS: Clopidogrel Bisulfate 75 MG Tablet PO (09:32)
[2022-12-05] MEDS: LORazepam 0.5 MG Tablet GT ×2 (09:46→23:29)
--- NOTE | 2022-12-05 12:06 | PN.HOSP_ITS ---
Subjective Subjective Doing well, no issues overnight. Her oxygen was turned down to 2 L nasal cannula and she is adjusted fine Objective Data Objective Data Vital Signs: Vital Signs Temp Pulse Resp BP Pulse Ox O2 Del Method O2 Flow Rate 98.2 F 87 18 95/63 92 Nasal Cannula 2 12/05/22 09:57 12/05/22 09:57 12/05/22 09:57 12/05/22 09:57 12/05/22 09:57 12/05/22 09:57 12/05/22 09:57 FiO2 40 12/05/22 03:34 Oxygen Flow Rate (L/min) 2 Oxygen Delivery Method Nasal Cannula Weight: 95 lb 14.417 oz Body Mass Index (BMI) 20.1 Intake & Output: Intake and Output for Last 24 Hours 12/04/22 12/05/22 12/06/22 03:59 03:59 03:59 Intake Total 1537.6 / 1632.6 1430 / 1430 Output Total 2775 / 2775 1950 / 1950 300 / 300 Balance -1237.4 / -1142.4 -520 / -520 -300 / -300 Medical Nutrition Assessment Dietitian: Malnutrition Criteria Met Start: 11/20/22 11:25 Freq: Status: Active Protocol: Document 11/28/22 10:28 (Rec: 11/28/22 10:28 [id number]) Nutrition Malnutrition Evidence of Malnutrition Exists Yes Malnutrition (severe): Chronic Evidenced By Suboptimal Energy Intake ( Severe),Weight Loss (Severe), Physical Changes (Moderate) Intake Problem Inadequate Oral Intake Etiology related to chewing/swallowing difficulty Signs/Symptoms as evidenced by NPO x 2 days Status Active Problem Clinical Problem Chronic Disease or Condition Related Malnutrition Etiology Severe protein-calorie malnutrition in the context of chronic disease related to inadequate oral/energy intake Signs/Symptoms as evidenced by estimated PO intake meeting <50% 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, muscle/fat wasting visible in face, upper/lower extremities and torso and weight loss ~9% x less than 6 months with fluid likely masking additional wt loss Status Active Problem Recommendation Dietitian Recommendations/Changes Will maintain NPO status until appropriate for PO intake; recommend cardiac diet when medically indicated- texture/ consistency modifications per MANUFACTURING SYSTEMS ENGINEER Lab / Micro Data Result Diagrams: 12/05/22 06:45 12/05/22 06:45 Labs: Laboratory Results - last 24 hr 12/05/22 06:45: WBC 16.7 H, RBC 3.98 L, Hgb 9.2 L, Hct 31.1 L, MCV 78.1 L, MCH 23.1 L, MCHC 29.6 L, RDW Std Deviation 82.2 H, RDW Coeff of Angie 31.0 H, Plt Count 690 H, MPV 11.4, Immature Gran % (Auto) 0.800, Neut % (Auto) 88.4 H, Lymph % (Auto) 2.5 L, [place] % (Auto) 7.8, Eos % (Auto) 0.3, Baso % (Auto) 0.2, Absolute Neuts (auto) 14.8 H, Absolute Lymphs (auto) 0.41 L, Nucleated RBC % 0, Platelet Estimate MOD INC, Plt Morphology Comment LARGE, Hypochromasia 1+, Anisocytosis 1+ 12/05/22 06:45: Sodium 134 L, Potassium 4.0, Chloride 96 L, Carbon Dioxide 33.0 H, Anion Gap 5, BUN 22 H, Creatinine 0.47 L, Estim Creat Clear Calc 81.95, Est GFR (MDRD) Af Amer 170, Est GFR (MDRD) Non-Af 141, BUN/Creatinine Ratio 46.7 H, Glucose 91, Calcium 8.4 L Micro: Microbiology 11/26/22 13:52 Fluid - Thoracentesis Fluid Gram Stain - Final 11/26/22 13:52 Fluid - Thoracentesis Fluid Body Fluid Culture - Final No growth aerobically. 11/26/22 13:52 Fluid - Thoracentesis Fluid Anaerobic Culture - Final No anaerobic bacteria isolated. 11/29/22 10:55 Stool C. difficile DNA Amplification - Final 11/22/22 12:40 Wash - Bronchial Wash Gram Stain - Final 11/22/22 12:40 Wash - Bronchial Wash Respiratory Culture - Final Culture exhibits no growth. 11/22/22 12:40 Wash - Bronchial Wash Gram Stain - Final 11/22/22 12:40 Wash - Bronchial Wash Respiratory Culture - Final Culture exhibits no growth. 11/20/22 15:55 Sputum, Expectorated/Coughed Gram Stain - Final 11/20/22 15:55 Sputum, Expectorated/Coughed Respiratory Culture - Final Streptococcus pneumoniae 11/21/22 16:35 Sputum, Induced/Lukens Gram Stain - Final 11/21/22 16:35 Sputum, Induced/Lukens Respiratory Culture - Final Presumptive C albicans 11/20/22 14:00 Blood Culture (Wb) - Anticubital Left Bacteria Detection (PCR) - Final Streptococcus pneumoniae 11/20/22 14:00 Blood Culture (Wb) - Anticubital Left Blood Culture - Final Alpha hemolytic organism 11/20/22 13:55 Blood Culture (Wb) - Anticubital Right Blood Culture - Final Streptococcus pneumoniae 11/20/22 13:50 Urine Catheter - Catheter Urine Culture - Final Culture exhibits no growth. 11/20/22 14:57 Mucosa - Nasopharyngeal Influenza Types A,B Direct FA (SAMANTHA) - Final 11/20/22 13:50 Urine Catheter - Catheter Legionella Antigen - Final 11/20/22 13:50 Urine Catheter - Catheter Streptococcus pneumoniae Antigen (M - Final Rhythm Strip Rhythm Strip: Sinus Rhythm Rate: 76 Physical Exam Narrative General: Alert, Oriented x3, Cooperative, No apparent distress HEENT: Atraumatic, PERRLA, EOMI, Normocephalic Oral: Moist Mucosa Neck: Supple, No JVD Lungs: Diminished, Normal air movement, No rhonchi, No wheeze, No rales Cardiovascular: Regular rate, Regular Rhythm, Normal S1, Normal S2, No murmurs Abdomen: Soft, Non Tender, Non-Distended, No Hepato-splenomegaly, PEG tube in place Extremities: No edema, Capillary Refill Less than 3 Seconds Skin: No rashes, No breakdown Musculoskeletal: No Tenderness to Palpation of Joints or Extremities Neurological: Cranial nerves II-XII grossly intact, Motor Exam 5/5 strength throughout, Sensory exam intact to light touch and pain Psych/Mental Status: Normal Affect, Appropriate Assessment & Plan Assessment/Plan (1) Acute and chronic respiratory failure with hypoxia: (2) Acute dyspnea: (3) Oropharyngeal dysphagia: (4) Cachexia: PLAN: Plan 1.? Acute on chronic hypoxic respiratory failure secondary to continued right pleural effusion and community-acquired pneumonia and strep bacteremia with septic shock Patient also had mild PE with heart strain as documented in CTPA chest subsegmental pulmonary embolism in the right upper lobe.? Less likely cardiogenic shock. Patient patient had right thoracocentesis 525 ml of stephen-colored fluid drained on 11/26/2022. ? Blood cultures demonstrates strep pneumonia ?Continue broad spectrum antibiotics ?Continue diuretics depending upon hemodynamics and kidney function ? Continue with anticoagulation for subsegmental PEs, echo did demonstrate right heart strain 11/27: Patient is extubated today.? Prior to that patient weaned off sedative and Levophed.? On midodrine.? On IV meropenem. 11/28: Patient was extubated yesterday.? Very weak and fatigued.? PT and OT.? Thoracocentesis and bronc culture does not show any growth.? Urine output 350 mL since midnight.? 850 mL last 24 hours yesterday 11/29: Patient on oxygen nasal cannula.? Tmax 99.2 Fahrenheit.? On Bumex 1 mg daily.? Amiodarone 200 mg twice daily baby aspirin Plavix, and atorvastatin. 11/30: Patient has a rare and undiagnosed probably systemic disease and diagnosed by [facility] by extensive work-up.? Patient on oxygen support on NIPPV? at night. 12/01: I talked to patient and she said she wants to get a strong with rehab and then think of pleurodesis.? 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 Therefore discharge plan will be SNF. We will continue NIPPV as needed. 12/02: No significant change.? Patient on 40% FiO2.? Dyspnea on exertion.? Thoracocentesis fluid negative for malignancy.? BAL negative for malignant cells. 12/03: Patient was found to be in respiratory distress with alarm on AVAPS sett ing. Tidal volume at times going up to 800 probably due to air leak or respiratory distress therefore patient transferred back to ICU. Discussed with the phlebotomist supervisor/instructor. 12/04: Doing well maintaining oxygen saturations on nasal cannula we will continue to monitor 12/05: We will initiate discharge planning, will continue to wean oxygen as able and limit BiPAP when she sleeps per pulmonology's note 2.? CAD status post stent/HTN/HLD/chronic diastolic CHF/paroxysmal A-fib ? Can continue with aspirin via G-tube as well as Lipitor ?Weaned off norepinephrine.? BP 115/72.? On IV heparin drip. 11/28: Heart rate is controlled.? Patient amiodarone drip changed to amiodarone oral. 11/29: Patient on Eliquis, baby aspirin and Plavix.? H&H 9.8/32%.? Platelet count 688. 12/03: Hemoglobin 10.1 on baseline. 3.? Oropharyngeal dysphagia: Patient failed swallow.? GI is consulted for PEG tube.? On D5W for nutrition. 11/29: Seen by GI Dr. Carter.? Plan for PEG tube tomorrow AM.? Hold heparin drip midnight today. 11/30: Plan for PEG tube today.? Patient will stay in ICU after PEG tube for monitoring and then transferred to PCU.? Discussed with phlebotomist supervisor/instructor. 12/01: PEG tube.? Patient tolerating tube feed. 12/02: Plan for cookie swallow test. 12/03: Modified barium swallow reported mild to moderate oropharyngeal dysphagia with esophageal retention. Speech therapist recommended n.p.o. with PEG tube feeding and hydration. 3.? Hypothyroidism ? Continue with Synthroid 4.? Severe chronic protein calorie malnutrition ? Continue with nutritional evaluation 5.? GERD ? Stable ? Continue with PPI 6.? Chronic debilitation.? PT and OT and plan for SNF DVT: Eliquis Charges/Coding Visit Charges Inpatient E&M: 33899 Subs Hosp L2
[2022-12-05] MEDS: Acetaminophen 650 MG/20 ML UDC GT (23:28)
[2022-12-05] MEDS: Atorvastatin Calcium 40 MG Tablet GT (23:29)
[2022-12-05] MEDS: Amiodarone 200 MG Tablet GT (23:29)
[2022-12-06] VITALS (11 sets, daily range): BP systolic 96–106; BP diastolic 64–75; PULSE 85–98; RESP 14–22; TEMP 36.6–36.8; O2SAT 89–95; BMI 20.4
[2022-12-06] MEDS: Jevity 1.5 1,000 ML 38 ML GT (00:08)
[2022-12-06] MEDS: Menthol/Lanolin/Calamine/Znox 113 GM Tube 1 APPLIC TOPICAL ×3 (05:01→22:48)
[2022-12-06] MEDS: Levothyroxine 88 MCG Tablet 132 MCG GT (05:02)
[2022-12-06] MEDS: Ipratropium 0.5 MG/2.5 ML SOLUTION INHALATION ×3 (07:41→20:02)
[2022-12-06] MEDS: Acetaminophen 650 MG/20 ML UDC GT ×3 (09:03→22:22)
[2022-12-06] MEDS: predniSONE 20 MG Tablet GT (09:04)
[2022-12-06] MEDS: Lansoprazole 15 MG Capsule.DR 30 MG GT (09:04)
[2022-12-06] MEDS: Aspirin 81 MG TAB.CHEW GT (09:04)
[2022-12-06] MEDS: LORazepam 0.5 MG Tablet GT ×2 (09:04→22:23)
[2022-12-06] MEDS: Bumetanide 0.5 MG Tablet GT (09:04)
[2022-12-06] MEDS: Spironolactone 25 MG Tablet GT (09:04)
[2022-12-06] MEDS: Amiodarone 200 MG Tablet GT ×2 (09:04→22:23)
[2022-12-06] MEDS: Clopidogrel Bisulfate 75 MG Tablet GT (09:04)
[2022-12-06] MEDS: APIXABAN 5 MG TABLET GT ×2 (09:04→22:22)
--- NOTE | 2022-12-06 10:01 | PCM.PN.HOSP ---
Subjective Subjective No change from yesterday Objective Data Objective Data Vital Signs: Vital Signs Temp Pulse Resp BP Pulse Ox O2 Del Method O2 Flow Rate 98.1 F 90 18 106/67 94 Nasal Cannula 3 12/06/22 08:52 12/06/22 08:52 12/06/22 08:52 12/06/22 08:52 12/06/22 08:52 12/06/22 08:52 12/06/22 07:42 FiO2 45 12/06/22 03:10 Oxygen Flow Rate (L/min) 3 Oxygen Delivery Method Nasal Cannula Weight: 97 lb 3.582 oz Body Mass Index (BMI) 20.4 Intake & Output: Intake and Output for Last 24 Hours 12/05/22 12/06/22 12/07/22 03:59 03:59 03:59 Intake Total 1430 / 1430 2395 / 2395 Output Total 1950 / 1950 1999 150 / 150 Balance -520 / -520 395 / 395 -150 / -150 Medical Nutrition Assessment Dietitian: Malnutrition Criteria Met Start: 11/20/22 11:25 Freq: Status: Active Protocol: Document 11/28/22 10:28 AG (Rec: 11/28/22 10:28 AG [id number]) Nutrition Malnutrition Evidence of Malnutrition Exists Yes Malnutrition (severe): Chronic Evidenced By Suboptimal Energy Intake ( Severe),Weight Loss (Severe), Physical Changes (Moderate) Intake Problem Inadequate Oral Intake Etiology related to chewing/swallowing difficulty Signs/Symptoms as evidenced by NPO x 2 days Status Active Problem Clinical Problem Chronic Disease or Condition Related Malnutrition Etiology Severe protein-calorie malnutrition in the context of chronic disease related to inadequate oral/energy intake Signs/Symptoms as evidenced by estimated PO intake meeting <50% 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, muscle/fat wasting visible in face, upper/lower extremities and torso and weight loss ~9% x less than 6 months with fluid likely masking additional wt loss Status Active Problem Recommendation Dietitian Recommendations/Changes Will maintain NPO status until appropriate for PO intake; recommend cardiac diet when medically indicated- texture/ consistency modifications per SHIP CONSTRUCTION TEACHER Lab / Micro Data Result Diagrams: 12/05/22 06:45 12/05/22 06:45 Micro: Microbiology 11/26/22 13:52 Fluid - Thoracentesis Fluid Gram Stain - Final 11/26/22 13:52 Fluid - Thoracentesis Fluid Body Fluid Culture - Final No growth aerobically. 11/26/22 13:52 Fluid - Thoracentesis Fluid Anaerobic Culture - Final No anaerobic bacteria isolated. 11/29/22 10:55 Stool C. difficile DNA Amplification - Final 11/22/22 12:40 Wash - Bronchial Wash Gram Stain - Final 11/22/22 12:40 Wash - Bronchial Wash Respiratory Culture - Final Culture exhibits no growth. 11/22/22 12:40 Wash - Bronchial Wash Gram Stain - Final 11/22/22 12:40 Wash - Bronchial Wash Respiratory Culture - Final Culture exhibits no growth. 11/20/22 15:55 Sputum, Expectorated/Coughed Gram Stain - Final 11/20/22 15:55 Sputum, Expectorated/Coughed Respiratory Culture - Final Streptococcus pneumoniae 11/21/22 16:35 Sputum, Induced/Lukens Gram Stain - Final 11/21/22 16:35 Sputum, Induced/Lukens Respiratory Culture - Final Presumptive C albicans 11/20/22 14:00 Blood Culture (Wb) - Anticubital Left Bacteria Detection (PCR) - Final Streptococcus pneumoniae 11/20/22 14:00 Blood Culture (Wb) - Anticubital Left Blood Culture - Final Alpha hemolytic organism 11/20/22 13:55 Blood Culture (Wb) - Anticubital Right Blood Culture - Final Streptococcus pneumoniae 11/20/22 13:50 Urine Catheter - Catheter Urine Culture - Final Culture exhibits no growth. 11/20/22 14:57 Mucosa - Nasopharyngeal Influenza Types A,B Direct FA (SAMANTHA) - Final 11/20/22 13:50 Urine Catheter - Catheter Legionella Antigen - Final 11/20/22 13:50 Urine Catheter - Catheter Streptococcus pneumoniae Antigen (M - Final Rhythm Strip Rhythm Strip: Sinus Rhythm Rate: 76 Physical Exam Narrative General: Alert, Oriented x3, Cooperative, No apparent distress HEENT: Atraumatic, PERRLA, EOMI, Normocephalic Oral: Moist Mucosa Neck: Supple, No JVD Lungs: Diminished, Normal air movement, No rhonchi, No wheeze, No rales Cardiovascular: Regular rate, Regular Rhythm, Normal S1, Normal S2, No murmurs Abdomen: Soft, Non Tender, Non-Distended, No Hepato-splenomegaly, PEG tube in place Extremities: No edema, Capillary Refill Less than 3 Seconds Skin: No rashes, No breakdown Musculoskeletal: No Tenderness to Palpation of Joints or Extremities Neurological: Cranial nerves II-XII grossly intact, Motor Exam 5/5 strength throughout, Sensory exam intact to light touch and pain Psych/Mental Status: Normal Affect, Appropriate Assessment & Plan Assessment/Plan (1) Acute and chronic respiratory failure with hypoxia: (2) Acute dyspnea: (3) Oropharyngeal dysphagia: (4) Cachexia: PLAN: Plan 1.? Acute on chronic hypoxic respiratory failure secondary to continued right pleural effusion and community-acquired pneumonia and strep bacteremia with septic shock Patient also had mild PE with heart strain as documented in CTPA chest subsegmental pulmonary embolism in the right upper lobe.? Less likely cardiogenic shock. Patient patient had right thoracocentesis 525 ml of stephen-colored fluid drained on 11/26/2022. ? Blood cultures demonstrates strep pneumonia ?Continue broad spectrum antibiotics ?Continue diuretics depending upon hemodynamics and kidney function ? Continue with anticoagulation for subsegmental PEs, echo did demonstrate right heart strain 11/27: Patient is extubated today.? Prior to that patient weaned off sedative and Levophed.? On midodrine.? On IV meropenem. 11/28: Patient was extubated yesterday.? Very weak and fatigued.? PT and OT.? Thoracocentesis and bronc culture does not show any growth.? Urine output 350 mL since midnight.? 850 mL last 24 hours yesterday 11/29: Patient on oxygen nasal cannula.? Tmax 99.2 Fahrenheit.? On Bumex 1 mg daily.? Amiodarone 200 mg twice daily baby aspirin Plavix, and atorvastatin. 11/30: Patient has a rare and undiagnosed probably systemic disease and diagnosed by [facility] by extensive work-up.? Patient on oxygen support on NIPPV? at night. 12/01: I talked to patient and she said she wants to get a strong with rehab and then think of pleurodesis.? 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 Therefore discharge plan will be SNF. We will continue NIPPV as needed. 12/02: No significant change.? Patient on 40% FiO2.? Dyspnea on exertion.? Thoracocentesis fluid negative for malignancy.? BAL negative for malignant cells. 12/03: Patient was found to be in respiratory distress with alarm on AVAPS setting. Tidal volume at times going up to 800 probably due to air leak or respiratory distress therefore patient transferred back to ICU. Discussed with the motors assembler. 12/04: Doing well maintaining oxygen saturations on nasal cannula we will continue to monitor 12/05: We will initiate discharge planning, will continue to wean oxygen as able and limit BiPAP when she sleeps per pulmonology's note 12/06: She continues to have an elevated leukocytosis but is afebrile this is likely related to her daily prednisone 2.? CAD status post stent/HTN/HLD/chronic diastolic CHF/paroxysmal A-fib ? Can continue with aspirin via G-tube as well as Lipitor ?Weaned off norepinephrine.? BP 115/72.? On IV heparin drip. 11/28: Heart rate is controlled.? Patient amiodarone drip changed to amiodarone oral. 11/29: Patient on Eliquis, baby aspirin and Plavix.? H&H 9.8/32%.? Platelet count 688. 12/03: Hemoglobin 10.1 on baseline. 3.? Oropharyngeal dysphagia: Patient failed swallow.? GI is consulted for PEG tube.? On D5W for nutrition. 11/29: Seen by GI DrLeonardo Carter.? Plan for PEG tube tomorrow AM.? Hold heparin drip midnight today. 11/30: Plan for PEG tube today.? Patient will stay in ICU after PEG tube for monitoring and then transferred to PCU.? Discussed with motors assembler. 12/01: PEG tube.? Patient tolerating tube feed. 12/02: Plan for cookie swallow test. 12/03: Modified barium swallow reported mild to moderate oropharyngeal dysphagia with esophageal retention. Speech therapist recommended n.p.o. with PEG tube feeding and hydration. 3.? Hypothyroidism ? Continue with Synthroid 4.? Severe chronic protein calorie malnutrition ? Continue with nutritional evaluation 5.? GERD ? Stable ? Continue with PPI Disposition: Chronic debilitation.? PT and OT and plan for SNF DVT: Eliquis Charges/Coding Visit Charges Inpatient E&M: 25539 Subs Hosp L2
--- NOTE | 2022-12-06 12:19 | PN.CC_ITS ---
Assessment & Plan Assessment/Plan (1) Acute and chronic respiratory failure with hypoxia: (2) History of coronary artery stent placement: (3) Bronchiectasis, non-tuberculous: (4) Recurrent pleural effusion: (5) Cachexia: (6) Sepsis due to Streptococcus pneumoniae with acute hypoxic respiratory failure and septic shock: PLAN: Plan RECOMMENDATIONS: 1. Monitor off of midodrine 2. Completed 10 days of antibiotics. Would not reinitiate 3. Continue tube feeds. Okay to use Imodium for osmotic diarrhea 4. Continue aggressive pulmonary toileting 5. Will need evaluated by CT surgery for possible pleurodesis as an outpatient 6. PT/OT secondary to debility 7. We will attempt to use BiPAP only with sleep 8. Discharge planning 9. Hemodynamically stable on baseline nasal cannula oxygen. Will sign off from a pulmonary/critical care perspective IMPRESSIONS: 1. Acute on chronic hypoxic respiratory failure secondary to pneumonia and possible amyloid Patient appears to be back to her baseline respiratory status. Patient does have a significant loculated left pleural effusion that will eventually require pleurodesis by CT surgery. Patient may have an element of aspiration adding to complications, which should be improved following PEG. Patient tolerating nasal cannula at this time. We will continue with supportive care. Patient appears to be at her baseline at this time. Will sign off from a p ulmonary/critical care perspective. 2. Recurrent pleural effusion/bronchiectasis/sepsis secondary to pneumococcus Patient appears to be doing okay at this time. Patient still has significant bronchial secretions, but this would be expected. Patient does have adequate blood pressure at this time. Blood pressure is much improved. Monitor off midodrine therapy. Patient has completed a course of antibiotics. Low clinical suspicion for recurrence of infection. Patient would benefit from an eventual VATS biopsy on the left lung with control of her loculated pleural effusions. 3. Debility/dysphagia Patient with significant cachexia and debility. Patient discussed with GI and has been given a PEG tube to standardize nutrition. Patient will likely need a pleurodesis in the future and may benefit from nutritional optimization. Patient is having some osmotic diarrhea, so Imodium will be given. 4. CAD/COPD/advanced age/anemia/history of iatrogenic pneumothorax Complicates care, management, recovery and prognosis. Patient potentially could go to the floor following PEG tube, but given comorbidities. Patient appears to be at her baseline at this time. Patient follow-up in office as previously planned Subjective Subjective Patient did well overnight. No acute issues were reported. Patient feels subjectively about the same as she did yesterday. Patient continues to have dyspnea on exertion, but feels relatively comfortable at rest. Patient does report that her sleeping is improving. Objective Data Objective Data Vital Signs: Vital Signs Temp Pulse Resp BP Pulse Ox O2 Del Method O2 Flow Rate 36.7 C 90 18 106/67 89 Nasal Cannula 3 12/06/22 08:52 12/06/22 08:52 12/06/22 08:52 12/06/22 08:52 12/06/22 11:51 12/06/22 10:37 12/06/22 11:51 FiO2 45 12/06/22 03:10 Oxygen Flow Rate (L/min) 3 Oxygen Delivery Method Nasal Cannula Weight: 44.1 kg Body Mass Index (BMI) 20.4 Intake & Output: Intake and Output for Last 24 Hours 12/04/22 12/05/22 12/06/22 23:59 23:59 23:59 Intake Total 1525 / 1525 1395 / 1395 1000 / 1000 Output Total 1950 / 1950 1800 / 2000 350 / 350 Balance -425 / -425 -405 / -605 650 / 650 Medical Nutrition Assessment Dietitian: Malnutrition Criteria Met Start: 11/20/22 11:25 Freq: Status: Active Protocol: Document 11/28/22 10:28 (Rec: 11/28/22 10:28 [id number]) Nutrition Malnutrition Evidence of Malnutrition Exists Yes Malnutrition (severe): Chronic Evidenced By Suboptimal Energy Intake ( Severe),Weight Loss (Severe), Physical Changes (Moderate) Intake Problem Inadequate Oral Intake Etiology related to chewing/swallowing difficulty Signs/Symptoms as evidenced by NPO x 2 days Status Active Problem Clinical Problem Chronic Disease or Condition Related Malnutrition Etiology Severe protein-calorie malnutrition in the context of chronic disease related to inadequate oral/energy intake Signs/Symptoms as evidenced by estimated PO intake meeting <50% 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 Result Diagrams: 12/05/22 06:45 12/05/22 06:45 Micro: Microbiology 11/26/22 13:52 Fluid - Thoracentesis Fluid Gram Stain - Final 11/26/22 13:52 Fluid - Thoracentesis Fluid Body Fluid Culture - Final No growth aerobically. 11/26/22 13:52 Fluid - Thoracentesis Fluid Anaerobic Culture - Final No anaerobic bacteria isolated. 11/29/22 10:55 Stool C. difficile DNA Amplification - Final 11/22/22 12:40 Wash - Bronchial Wash Gram Stain - Final 11/22/22 12:40 Wash - Bronchial Wash Respiratory Culture - Final Culture exhibits no growth. 11/22/22 12:40 Wash - Bronchial Wash Gram Stain - Final 11/22/22 12:40 Wash - Bronchial Wash Respiratory Culture - Final Culture exhibits no growth. 11/20/22 15:55 Sputum, Expectorated/Coughed Gram Stain - Final 11/20/22 15:55 Sputum, Expectorated/Coughed Respiratory Culture - Final Streptococcus pneumoniae 11/21/22 16:35 Sputum, Induced/Lukens Gram Stain - Final 11/21/22 16:35 Sputum, Induced/Lukens Respiratory Culture - Final Presumptive C albicans 11/20/22 14:00 Blood Culture (Wb) - Anticubital Left Bacteria Detection (PCR) - Final Streptococcus pneumoniae 11/20/22 14:00 Blood Culture (Wb) - Anticubital Left Blood Culture - Final Alpha hemolytic organism 11/20/22 13:55 Blood Culture (Wb) - Anticubital Right Blood Culture - Final Streptococcus pneumoniae 11/20/22 13:50 Urine Catheter - Catheter Urine Culture - Final Culture exhibits no growth. 11/20/22 14:57 Mucosa - Nasopharyngeal Influenza Types A,B Direct FA (SAMANTHA) - Final 11/20/22 13:50 Urine Catheter - Catheter Legionella Antigen - Final 11/20/22 13:50 Urine Catheter - Catheter Streptococcus pneumoniae Antigen (M - Final Rhythm Strip Rhythm Strip: Sinus Rhythm Rate: 76 Physical Exam Const alert and oriented x3 Constitutional Narrative: On nasal cannula during my evaluation. No accessory muscle use noted. General Appearance: frail HEENT normocephalic and head/scalp atraumatic Eyes PERRL, EOMs intact bilaterally and conjunctivae normal Neck supple General: trachea midline Chest inspection of chest normal Resp normal respiratory effort Auscultation: diminished lung sounds; Negative for rales, rhonchi or wheezes Percussion: dullness Lower: right and left Cardio regular rate, regular rhythm, S1 normal heart sound and S2 normal heart sound Cardio Narrative: Currently in normal sinus rhythm GI normal to inspection, nondistended, normoactive bowel sounds GI Narrative: PEG is clean, dry and intact Inspection: GI tube present Extremity no clubbing, cyanosis or edema Skin no rashes or lesions noted Neuro oriented x3, CN's II-XII intact bilaterally, moves all extremities and no focal motor deficits Psych cooperative Charges/Coding Visit Charges Inpatient E&M: 18718 Subs Hosp L2
[2022-12-06] MEDS: Atorvastatin Calcium 40 MG Tablet GT (22:22)
[2022-12-06] MEDS: 0.9% Saline Lock 10 ML Syringe IV (22:24)
[2022-12-07] VITALS (12 sets, daily range): BP systolic 101–115; BP diastolic 66–75; PULSE 85–98; RESP 14–27; TEMP 36.3–36.6; O2SAT 91–97
[2022-12-07] MEDS: Jevity 1.5 1,000 ML 38 ML GT (02:27)
[2022-12-07 06:06] LABS: Absolute Lymphocyte Count 0.55 X10^3/uL (0.83-4.51); Absolute Neutrophil Count 13.9 X10^3/uL (2.0-7.7); Basophil# 0.02 X10^3/uL; Basophil% 0.1 % (0-1); Eosinophil# 0.04 X10^3/uL; Eosinophils% 0.3 % (0-5); Hematocrit 30.1 % (37-47); Lymphocyte # 0.55 X10^3/ul (0.83-4.51); Lymphocyte % 3.5 % (19-41); Mean Corp Hgb Conc 29.9 g/dL (32-36); Mean Corpuscular Hgb 23.7 pg (27.0-32.0); Mean Corpuscular Volume 79.2 fL (81-99); Mean Platelet Vol. 11.5 fl (6.2-12.0); Monocyte# 1.04 X10^3/uL; Monocyte% 6.6 % (0-10); NRBC Flagged by Analyzer 0 % (0-5); Neutrophil # 13.91 X10^3/uL (2.7-7.7); Neutrophil % 88.7 % (47-70); POSITIVE DIFFERENTIAL YES; POSITIVE MORPHOLOGY YES; Platelet Count 561 K/mm3 (150-450); RBC Distribution Width CV 31.6 % (11.6-14.6); RBC Distribution Width SD 84.6 fl (35.1-43.9); White Blood Count 15.7 K/mm3 (4.4-11.0)
[2022-12-07] MEDS: Levothyroxine 88 MCG Tablet GT (06:08)
[2022-12-07] MEDS: Menthol/Lanolin/Calamine/Znox 113 GM Tube 1 APPLIC TOPICAL ×3 (06:08→22:28)
[2022-12-07 06:10] LABS: Differential Indicated SCAN CRITERIA MET
[2022-12-07 06:33] LABS: Anisocytosis 2+; Differential Comment SCANNED
[2022-12-07 06:41] LABS: Anion Gap 2 (5-15); BUN 22 mg/dL (7-18); BUN/Creat Ratio 54.3 RATIO (10-20); Calcium,Total 8.3 mg/dL (8.5-10.1); Chloride 100 mmol/L (98-107); EST Glomerular Filtration Rate 168 mL/min (>60); Est Glom Filt Rate - Afr Amer 203 mL/min (>60); Estimated Creatinine Clearance 96.07 ml/min; Glucose 94 mg/dL (74-106); Sodium Level 135 mmol/L (136-145)
[2022-12-07] MEDS: Ipratropium 0.5 MG/2.5 ML SOLUTION INHALATION ×3 (07:09→19:10)
[2022-12-07] MEDS: Aspirin 81 MG TAB.CHEW GT (09:00)
[2022-12-07] MEDS: predniSONE 20 MG Tablet GT (09:00)
--- NOTE | 2022-12-07 09:28 | CASEMGMT ---
Updates sent to [facility]. Emelyn Ulloa
[2022-12-07] MEDS: 0.9% Saline Lock 10 ML Syringe IV (10:07)
[2022-12-07] MEDS: Amiodarone 200 MG Tablet GT ×2 (10:09→22:27)
[2022-12-07] MEDS: Bumetanide 0.5 MG Tablet GT (10:09)
[2022-12-07] MEDS: Spironolactone 25 MG Tablet GT (10:09)
[2022-12-07] MEDS: Lansoprazole 15 MG Capsule.DR 30 MG GT (10:09)
[2022-12-07] MEDS: Clopidogrel Bisulfate 75 MG Tablet GT (10:09)
[2022-12-07] MEDS: LORazepam 0.5 MG Tablet GT ×2 (10:34→22:28)
--- NOTE | 2022-12-07 12:14 | PN_ITS ---
Subjective Subjective Patient seen and examined. Her niece was by her bedside. She denied any nausea or vomiting, fever or chills and denied any chest pain. She states she was told she had some blood clots in her urine overnight. Review of systems otherwise negative. He has otherwise remained hemodynamically stable. She is on 4 L of oxygen. Objective Data Objective Data Vital Signs: Vital Signs Temp Pulse Resp BP Pulse Ox O2 Del Method O2 Flow Rate 97.6 F L 95 16 112/68 91 Nasal Cannula 4 12/07/22 09:15 12/07/22 09:15 12/07/22 09:15 12/07/22 09:15 12/07/22 11:21 12/07/22 09:15 12/07/22 11:21 FiO2 30 12/06/22 22:45 Oxygen Flow Rate (L/min) 4 Oxygen Delivery Method Nasal Cannula Weight: 95 lb 10.89 oz Body Mass Index (BMI) 20.0 Intake & Output: Intake and Output for Last 24 Hours 12/05/22 12/06/22 12/07/22 23:59 23:59 23:59 Intake Total 1395 / 1395 1190 / 1190 1000 / 1000 Output Total 1800 / 2000 2450 / 2700 450 / 450 Balance -405 / -605 -1260 / -1510 550 / 550 Medical Nutrition Assessment Dietitian: Malnutrition Criteria Met Start: 11/20/22 11:25 Freq: Status: Active Protocol: Document 11/28/22 10:28 (Rec: 11/28/22 10:28 [id number]) Nutrition Malnutrition Evidence of Malnutrition Exists Yes Malnutrition (severe): Chronic Evidenced By Suboptimal Energy Intake ( Severe),Weight Loss (Severe), Physical Changes (Moderate) Intake Problem Inadequate Oral Intake Etiology related to chewing/swallowing difficulty Signs/Symptoms as evidenced by NPO x 2 days Status Active Problem Clinical Problem Chronic Disease or Condition Related Malnutrition Etiology Severe protein-calorie malnutrition in the context of chronic disease related to inadequate oral/energy intake Signs/Symptoms as evidenced by estimated PO intake meeting <50% 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, muscle/fat wasting visible in face, upper/lower extremities and torso and weight loss ~9% x less than 6 months with fluid likely masking additional wt loss Status Active Problem Recommendation Dietitian Recommendations/Changes Will maintain NPO status until appropriate for PO intake; recommend cardiac diet when medically indicated- texture/ consistency modifications per WALLPAPER HANGER Lab / Micro Data Result Diagrams: 12/07/22 05:35 12/07/22 05:35 Labs: Laboratory Results - last 24 hr 12/07/22 05:35: WBC 15.7 H, RBC 3.80 L, Hgb 9.0 L, Hct 30.1 L, MCV 79.2 L, MCH 23.7 L, MCHC 29.9 L, RDW Std Deviation 84.6 H, RDW Coeff of Angie 31.6 H, Plt Count 561 H, MPV 11.5, Immature Gran % (Auto) 0.800, Neut % (Auto) 88.7 H, Lymph % (Auto) 3.5 L, [place] % (Auto) 6.6, Eos % (Auto) 0.3, Baso % (Auto) 0.1, Absolute Neuts (auto) 13.9 H, Absolute Lymphs (auto) 0.55 L, Nucleated RBC % 0, Differential Comment SCANNED, Anisocytosis 2+ 12/07/22 05:35: Sodium 135 L, Potassium 4.0, Chloride 100, Carbon Dioxide 33.0 H , Anion Gap 2 L, BUN 22 H, Creatinine 0.40 L, Estim Creat Clear Calc 96.07, Est GFR (MDRD) Af Amer 203, Est GFR (MDRD) Non-Af 168, BUN/Creatinine Ratio 54.3 H, Glucose 94, Calcium 8.3 L Micro: Microbiology 11/26/22 13:52 Fluid - Thoracentesis Fluid Gram Stain - Final 11/26/22 13:52 Fluid - Thoracentesis Fluid Body Fluid Culture - Final No growth aerobically. 11/26/22 13:52 Fluid - Thoracentesis Fluid Anaerobic Culture - Final No anaerobic bacteria isolated. 11/29/22 10:55 Stool C. difficile DNA Amplification - Final 11/22/22 12:40 Wash - Bronchial Wash Gram Stain - Final 11/22/22 12:40 Wash - Bronchial Wash Respiratory Culture - Final Culture exhibits no growth. 11/22/22 12:40 Wash - Bronchial Wash Gram Stain - Final 11/22/22 12:40 Wash - Bronchial Wash Respiratory Culture - Final Culture exhibits no growth. 11/20/22 15:55 Sputum, Expectorated/Coughed Gram Stain - Final 11/20/22 15:55 Sputum, Expectorated/Coughed Respiratory Culture - Final Streptococcus pneumoniae 11/21/22 16:35 Sputum, Induced/Lukens Gram Stain - Final 11/21/22 16:35 Sputum, Induced/Lukens Respiratory Culture - Final Presumptive C albicans 11/20/22 14:00 Blood Culture (Wb) - Anticubital Left Bacteria Detection (PCR) - Final Streptococcus pneumoniae 11/20/22 14:00 Blood Culture (Wb) - Anticubital Left Blood Culture - Final Alpha hemolytic organism 11/20/22 13:55 Blood Culture (Wb) - Anticubital Right Blood Culture - Final Streptococcus pneumoniae 11/20/22 13:50 Urine Catheter - Catheter Urine Culture - Final Culture exhibits no growth. 11/20/22 14:57 Mucosa - Nasopharyngeal Influenza Types A,B Direct FA (SAMANTHA) - Final 11/20/22 13:50 Urine Catheter - Catheter Legionella Antigen - Final 11/20/22 13:50 Urine Catheter - Catheter Streptococcus pneumoniae Antigen (M - Final Rhythm Strip Rhythm Strip: Sinus Rhythm Rate: 76 Physical Exam Const alert, oriented x3 and no apparent distress Constitutional Narrative: Very frail HEENT normocephalic, head/scalp atraumatic and moist oral mucous membranes Eyes PERRL and EOMs intact bilaterally Neck no lymphadenopathy and supple General: trachea midline Lymph Lymphatic: no lymphadenopathy noted Resp Resp Narrative: Mildly diminished breath sounds bibasally. No wheezes or crackles. On 4 L of oxygen. Cardio regular rate, regular rhythm, S1 normal heart sound, S2 normal heart sound and no murmurs GI normal to inspection, nondistended, normoactive bowel sounds, soft to palpation, non-tender and non-distended GI Narrative: PEG tube in situ Extremity normal capillary refill and no clubbing, cyanosis or edema Skin General Skin Exam: no breakdown Neuro CN's II-XII intact bilaterally, no focal motor deficits and no sensory deficits noted Psych thought process normal and cooperative Appearance: appropriate Assessment & Plan Assessment/Plan (1) Sepsis due to Streptococcus pneumoniae with acute hypoxic respiratory failure and septic shock: (2) Acute and chronic respiratory failure with hypoxia: (3) Recurrent pleural effusion: PLAN: Plan #Acute on chronic hypoxic respiratory failure due to recurrent right pleural effusion and community acquired pneumonia as well as PE * s/p right thoracentesis on 11/26/2022 with removal of 5-5 mils of stephen-colored fluid. * Blood cultures were positive for strep pneumonia. She was initially intubated in the ICU. She was started on IV meropenem. * She is also s/p bronchoscopy cultures of which showed no growth. She has had a complicated hospital because. She was transferred to the floor but subsequently transferred back to the ICU due to concerns about worsening respiratory distress. * she is now on 4L of oxygen. Titrate oxygen to maintain sats >90% * Also on p.o. prednisone. * Critical care on board. Completed a course of antibiotics. * * #Pulmonary embolism * CTA of the chest showed PE with heart strain. It was a subsegmental PE in the right upper lobe * Currently on Eliquis. On Eliquis 5 mg twice daily due to her nosebleed and hematuria. * #Hematuria: Patient having blood-tinged urine and also states she also occasionally. Currently on Eliquis. Will monitor closely and see. #CAD s/p stents: On aspirin as well as Lipitor and Plavix #Hyperlipidemia: On statin #Paroxysmal A-fib: On amiodarone and eliquis #Oropharyngeal dysphagia * Has PEG tube in place. Barium swallow showed moderate oropharyngeal disease patient with dysphagia retention. * Currently on a modified diet. Speech therapy and on tube feed for supplementation #Hypothyroidism: On Synthroid #Severe protein calorie malnutrition: On tube feeds and a modified diet. Nutrition on board. #GERD: On PPI DVT prophylaxis: on eliquis Charges/Coding Visit Charges Inpatient E&M: 57526 Subs Hosp L3
[2022-12-07] MEDS: Acetaminophen 650 MG/20 ML UDC GT (13:40)
--- NOTE | 2022-12-07 14:53 | CASEMGMT ---
WVM declined. Referral sent to [facility]. Emelyn Ulloa
--- NOTE | 2022-12-07 14:54 | CASEMGMT ---
[facility] and TCU have declined patient. Referral was sent to [facility] via [facility]. Gisella Pires RESIDENTIAL HOUSEKEEPER FARRAH
[2022-12-07] MEDS: Sodium Chloride 0.65% 1 SPRAY SPRAY.BTL 2 SPRAY NASAL (15:23)
--- NOTE | 2022-12-07 15:53 | CASEMGMT ---
VM left with Jackie @ [facility] to check on status of referral. Emelyn Ulloa
[2022-12-07] MEDS: Atorvastatin Calcium 40 MG Tablet GT (22:27)
[2022-12-08] VITALS (11 sets, daily range): BP systolic 105–112; BP diastolic 65–73; PULSE 81–96; RESP 14–20; TEMP 36.4–37; O2SAT 89–96; BMI 19.6
[2022-12-08] MEDS: Jevity 1.5 1,000 ML 38 ML GT (04:05)
[2022-12-08] MEDS: Levothyroxine 88 MCG Tablet GT (05:19)
[2022-12-08] MEDS: Menthol/Lanolin/Calamine/Znox 113 GM Tube 1 APPLIC TOPICAL ×3 (05:19→21:50)
[2022-12-08 05:31] LABS: Absolute Lymphocyte Count 0.44 X10^3/uL (0.83-4.51); Absolute Neutrophil Count 12.7 X10^3/uL (2.0-7.7); Basophil# 0.01 X10^3/uL; Basophil% 0.1 % (0-1); Eosinophil# 0.01 X10^3/uL; Eosinophils% 0.1 % (0-5); Hemoglobin 9.1 g/dL (12.0-15.0); Lymphocyte # 0.44 X10^3/ul (0.83-4.51); Lymphocyte % 3.1 % (19-41); Mean Corp Hgb Conc 30.3 g/dL (32-36); Mean Corpuscular Hgb 23.7 pg (27.0-32.0); Mean Corpuscular Volume 78.1 fL (81-99); Mean Platelet Vol. 11.6 fl (6.2-12.0); Monocyte# 0.82 X10^3/uL; Monocyte% 5.8 % (0-10); NRBC Flagged by Analyzer 0 % (0-5); Neutrophil # 12.65 X10^3/uL (2.7-7.7); Neutrophil % 90.1 % (47-70); POSITIVE DIFFERENTIAL YES; POSITIVE MORPHOLOGY YES; Platelet Count 492 K/mm3 (150-450); RBC Distribution Width SD 84.7 fl (35.1-43.9); Red Blood Count 3.84 M/mm3 (4.2-5.4)
[2022-12-08 05:36] LABS: Differential Indicated SCAN CRITERIA MET
[2022-12-08 05:56] LABS: Anion Gap 2 (5-15); BUN 24 mg/dL (7-18); BUN/Creat Ratio 55.3 RATIO (10-20); Calcium,Total 8.3 mg/dL (8.5-10.1); Chloride 98 mmol/L (98-107); Creatinine, Serum 0.43 mg/dL (0.55-1.02); EST Glomerular Filtration Rate 155 mL/min (>60); Est Glom Filt Rate - Afr Amer 187 mL/min (>60); Estimated Creatinine Clearance 87.51 ml/min; Glucose 93 mg/dL (74-106); Potassium 3.8 mmol/L (3.5-5.1); Sodium Level 133 mmol/L (136-145)
[2022-12-08 06:09] LABS: Anisocytosis 3+; Microcytosis 1+; Platelet Estimate SLT INC (ADEQ)
[2022-12-08 06:10] LABS: Hypochromasia 1+; Macrocytosis 1+
[2022-12-08] MEDS: Ipratropium 0.5 MG/2.5 ML SOLUTION INHALATION ×3 (06:54→20:42)
[2022-12-08] MEDS: Aspirin 81 MG TAB.CHEW GT (09:00)
[2022-12-08] MEDS: predniSONE 20 MG Tablet GT (09:00)
--- NOTE | 2022-12-08 09:13 | CASEMGMT ---
ROSMERY called Jackie at [facility] and she did not get the referral. SW re-sent the referral via [facility]. ROSMERY asked Jackie to let SW know if she does not get the referral. Gisella YAN
[2022-12-08] MEDS: Sodium Chloride 0.65% 1 SPRAY SPRAY.BTL 2 SPRAY NASAL (09:16)
[2022-12-08] MEDS: Bumetanide 0.5 MG Tablet GT (09:17)
[2022-12-08] MEDS: Lansoprazole 15 MG Capsule.DR 30 MG GT (09:17)
[2022-12-08] MEDS: Spironolactone 25 MG Tablet GT (09:17)
[2022-12-08] MEDS: Clopidogrel Bisulfate 75 MG Tablet GT (09:18)
[2022-12-08] MEDS: LORazepam 0.5 MG Tablet GT ×2 (09:18→22:11)
[2022-12-08] MEDS: Amiodarone 200 MG Tablet GT ×2 (09:18→21:51)
[2022-12-08] MEDS: 0.9% Saline Lock 10 ML Syringe IV ×2 (09:19→21:52)
[2022-12-08] MEDS: Acetaminophen 650 MG/20 ML UDC GT ×2 (09:27→22:04)
--- NOTE | 2022-12-08 11:35 | CASEMGMT ---
SW received a call from Jackie at [facility] ([facility]) and they are unable to accept patient as they are full. SW called patient's son Damion and let him know [facility], and [facility] are all unable to accept patient. Damion said to try [facility]. Referral was re-sent to [facility]. Gisella Pires ELECTRON BEAM WELDER FARRAH
--- NOTE | 2022-12-08 12:33 | PN_ITS ---
Subjective Subjective Patient seen and examined.She had no active complaints today. Hematuria has not recurred. She had an uneventful night. Review of systems otherwise negative. Objective Data Objective Data Vital Signs: Vital Signs Temp Pulse Resp BP Pulse Ox O2 Del Method O2 Flow Rate 98.0 F 87 18 109/65 94 Nasal Cannula 3 12/08/22 09:17 12/08/22 09:17 12/08/22 09:17 12/08/22 09:17 12/08/22 09:17 12/08/22 10:00 12/08/22 10:00 FiO2 35 12/08/22 04:17 Oxygen Flow Rate (L/min) 3 Oxygen Delivery Method Nasal Cannula Weight: 93 lb 11.143 oz Body Mass Index (BMI) 19.6 Intake & Output: Intake and Output for Last 24 Hours 12/06/22 12/07/22 12/08/22 23:59 23:59 23:59 Intake Total 1190 / 1190 1885 / 1885 1069.07 / 1069.07 Output Total 2450 / 2700 1450 / 1450 825 / 825 Balance -1260 / -1510 435 / 435 244.07 / 244.07 Medical Nutrition Assessment Dietitian: Malnutrition Criteria Met Start: 11/20/22 11:25 Freq: Status: Active Protocol: Document 12/07/22 13:35 JAYCE (Rec: 12/07/22 13:35 JAYCE [id number]) Nutrition Malnutrition Evidence of Malnutrition Exists Yes Malnutrition (severe): Chronic Evidenced By Suboptimal Energy Intake ( Severe),Weight Loss (Severe), Physical Changes (Moderate) Intake Problem Inadequate Oral Intake Etiology related to chewing/swallowing difficulty Signs/Symptoms as evidenced by altered consistency diet and main source of nutrition via PEG Status Active Problem Clinical Problem Chronic Disease or Condition Related Malnutrition Etiology Severe protein-calorie malnutrition in the context of chronic disease related to inadequate oral/energy intake Signs/Symptoms as evidenced by estimated PO intake meeting <50% of 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, muscle/fat wasting visible in face, upper/lower extremities and torso and weight loss ~9% x less than 6 months with fluid likely masking additional wt loss Status Active Problem Recommendation Dietitian Recommendations/Changes Will continue via PEG Jevity 1 .5 at 38mL/hr with 95mL H2O flush q4 hours to provide 1368kcal, 58 grams protein and 1263mL water. Will monitor tolerance and transition to bolus feeds as indicated. Will liberalize diet to regular - consistency per VP OF TECHNOLOGY. Will provide ensure pudding or magic cup w/ meals tid for increased nutrition if consumed. Lab / Micro Data Result Diagrams: 12/08/22 04:49 12/08/22 04:49 Labs: Laboratory Results - last 24 hr 12/08/22 04:49: WBC 14.0 H, RBC 3.84 L, Hgb 9.1 L, Hct 30.0 L, MCV 78.1 L, MCH 23.7 L, MCHC 30.3 L, RDW Std Deviation 84.7 H, RDW Coeff of Angie 32.0 H, Plt Count 492 H, MPV 11.6, Immature Gran % (Auto) 0.800, Neut % (Auto) 90.1 H, Lymph % (Auto) 3.1 L, [place] % (Auto) 5.8, Eos % (Auto) 0.1, Baso % (Auto) 0.1, Absolute Neuts (auto) 12.7 H, Absolute Lymphs (auto) 0.44 L, Nucleated RBC % 0, Platelet Estimate SLT INC, Hypochromasia 1+, Anisocytosis 3+, Microcytosis 1+, Macrocytosis 1+ 12/08/22 04:49: Sodium 133 L, Potassium 3.8, Chloride 98, Carbon Dioxide 33.0 H, Anion Gap 2 L, BUN 24 H, Creatinine 0.43 L, Estim Creat Clear Calc 87.51, Est GFR (MDRD) Af Amer 187, Est GFR (MDRD) Non-Af 155, BUN/Creatinine Ratio 55.3 H, Glucose 93, Calcium 8.3 L Micro: Microbiology 11/26/22 13:52 Fluid - Thoracentesis Fluid Gram Stain - Final 11/26/22 13:52 Fluid - Thoracentesis Fluid Body Fluid Culture - Final No growth aerobically. 11/26/22 13:52 Fluid - Thoracentesis Fluid Anaerobic Culture - Final No anaerobic bacteria isolated. 11/29/22 10:55 Stool C. difficile DNA Amplification - Final 11/22/22 12:40 Wash - Bronchial Wash Gram Stain - Final 11/22/22 12:40 Wash - Bronchial Wash Respiratory Culture - Final Culture exhibits no growth. 11/22/22 12:40 Wash - Bronchial Wash Gram Stain - Final 11/22/22 12:40 Wash - Bronchial Wash Respiratory Culture - Final Culture exhibits no growth. 11/20/22 15:55 Sputum, Expectorated/Coughed Gram Stain - Final 11/20/22 15:55 Sputum, Expectorated/Coughed Respiratory Culture - Final Streptococcus pneumoniae 11/21/22 16:35 Sputum, Induced/Lukens Gram Stain - Final 11/21/22 16:35 Sputum, Induced/Lukens Respiratory Culture - Final Presumptive C albicans 11/20/22 14:00 Blood Culture (Wb) - Anticubital Left Bacteria Detection (PCR) - Final Streptococcus pneumoniae 11/20/22 14:00 Blood Culture (Wb) - Anticubital Left Blood Culture - Final Alpha hemolytic organism 11/20/22 13:55 Blood Culture (Wb) - Anticubital Right Blood Culture - Final Streptococcus pneumoniae 11/20/22 13:50 Urine Catheter - Catheter Urine Culture - Final Culture exhibits no growth. 11/20/22 14:57 Mucosa - Nasopharyngeal Influenza Types A,B Direct FA (SAMANTHA) - Final 11/20/22 13:50 Urine Catheter - Catheter Legionella Antigen - Final 11/20/22 13:50 Urine Catheter - Catheter Streptococcus pneumoniae Antigen (M - Final Rhythm Strip Rhythm Strip: Sinus Rhythm Rate: 76 Physical Exam Const alert, oriented x3 and no apparent distress Constitutional Narrative: Very frail HEENT normocephalic, head/scalp atraumatic and moist oral mucous membranes Eyes PERRL and EOMs intact bilaterally Neck no lymphadenopathy and supple General: trachea midline Lymph Lymphatic: no lymphadenopathy noted Resp Resp Narrative: Mildly diminished breath sounds bibasally. No wheezes or crackles. On 3 L of oxygen. Cardio regular rate, regular rhythm, S1 normal heart sound, S2 normal heart sound and no murmurs GI normal to inspection, nondistended, normoactive bowel sounds, soft to palpation, non-tender and non-distended GI Narrative: PEG tube in situ Extremity normal capillary refill and no clubbing, cyanosis or edema Skin General Skin Exam: no breakdown Neuro CN's II-XII intact bilaterally, no focal motor deficits and no sensory deficits noted Psych thought process normal and cooperative Appearance: appropriate Assessment & Plan Assessment/Plan (1) Sepsis due to Streptococcus pneumoniae with acute hypoxic respiratory failure and septic shock: (2) Acute and chronic respiratory failure with hypoxia: (3) Recurrent pleural effusion: PLAN: Plan #Acute on chronic hypoxic respiratory failure due to recurrent right pleural effusion and community acquired pneumonia as well as PE * s/p right thoracentesis on 11/26/2022 with removal of 5-5 mils of stephen-colored fluid. * Blood cultures were positive for strep pneumonia. She was initially intubated in the ICU. She was started on IV meropenem. * She is also s/p bronchoscopy cultures of which showed no growth. She has had a complicated hospital because. She was transferred to the floor but subsequently transferred back to the ICU due to concerns about worsening respiratory distress. * she is now on 4L of oxygen. Titrate oxygen to maintain sats >90% * Also on p.o. prednisone. * Critical care on board. Completed a course of antibiotics. * 2D echo showed severely dilated RV with moderate RV systolic dysfunction and pulmonary artery systolic pressure of 55-60mmhg. * #Pulmonary embolism * CTA of the chest showed PE with heart strain. It was a subsegmental PE in the right upper lobe * Currently on Eliquis. On Eliquis 5 mg twice daily due to her nosebleed and hematuria. * Eliquis was held but will resume it today as hematuria and nosebleed have stopped. * #Hematuria: Resolving. Will resume Eliquis today and see. If bleeding recurs, will dc elilquis. #Moderate pulmonary hypertension: pulmonary artery systolic pressure is 55-60%, as above. Likely contributing to her respiratory failure. #CAD s/p stents: On aspirin as well as Lipitor and Plavix. Hold aspirin today due to patient having hematuria #Hyperlipidemia: On statin #Paroxysmal A-fib: On amiodarone; eliquis resumed today #Oropharyngeal dysphagia * Has PEG tube in place. Barium swallow showed moderate oropharyngeal disease patient with dysphagia retention. * Currently on a modified diet. Speech therapy and on tube feed for supplementation #Hypothyroidism: On Synthroid #Severe protein calorie malnutrition: On tube feeds and a modified diet. Nutrition on board. #GERD: On PPI DVT prophylaxis:eliquis resumed today. Disposition: awaiting placement. Charges/Coding Visit Charges Inpatient E&M: 22319 Subs Hosp L2
[2022-12-08] MEDS: APIXABAN 5 MG TABLET PO ×2 (14:26→21:51)
[2022-12-08] MEDS: Atorvastatin Calcium 40 MG Tablet GT (21:51)
[2022-12-09] VITALS (12 sets, daily range): BP systolic 91–114; BP diastolic 64–76; PULSE 84–97; RESP 16–20; TEMP 36.3–37.1; O2SAT 89–96; BMI 19.5
[2022-12-09 05:14] LABS: Absolute Lymphocyte Count 0.46 X10^3/uL (0.83-4.51); Absolute Neutrophil Count 11.3 X10^3/uL (2.0-7.7); Basophil# 0.02 X10^3/uL; Basophil% 0.2 % (0-1); Eosinophil# 0.03 X10^3/uL; Eosinophils% 0.2 % (0-5); Hematocrit 27.9 % (37-47); Hemoglobin 8.5 g/dL (12.0-15.0); Lymphocyte # 0.46 X10^3/ul (0.83-4.51); Lymphocyte % 3.6 % (19-41); Mean Corp Hgb Conc 30.5 g/dL (32-36); Mean Corpuscular Hgb 24.3 pg (27.0-32.0); Mean Corpuscular Volume 79.7 fL (81-99); Mean Platelet Vol. 11.2 fl (6.2-12.0); Monocyte# 0.77 X10^3/uL; Monocyte% 6.1 % (0-10); NRBC Flagged by Analyzer 0 % (0-5); Neutrophil # 11.33 X10^3/uL (2.7-7.7); POSITIVE DIFFERENTIAL YES; POSITIVE MORPHOLOGY YES; Platelet Count 450 K/mm3 (150-450); RBC Distribution Width CV 32.3 % (11.6-14.6); RBC Distribution Width SD 87.5 fl (35.1-43.9); White Blood Count 12.7 K/mm3 (4.4-11.0)
[2022-12-09 05:15] LABS: Differential Indicated SCAN CRITERIA MET
[2022-12-09 05:35] LABS: Anion Gap 2 (5-15); BUN 26 mg/dL (7-18); BUN/Creat Ratio 64.2 RATIO (10-20); Calcium,Total 8.2 mg/dL (8.5-10.1); Chloride 99 mmol/L (98-107); EST Glomerular Filtration Rate 168 mL/min (>60); Est Glom Filt Rate - Afr Amer 203 mL/min (>60); Estimated Creatinine Clearance 93.63 ml/min; Glucose 110 mg/dL (74-106); Sodium Level 134 mmol/L (136-145)
[2022-12-09] MEDS: Menthol/Lanolin/Calamine/Znox 113 GM Tube 1 APPLIC TOPICAL ×3 (06:21→22:39)
[2022-12-09] MEDS: Levothyroxine 88 MCG Tablet GT (06:21)
[2022-12-09 06:31] LABS: Anisocytosis 3+; Hypochromasia RARE; Macrocytosis 1+; Microcytosis 1+; Platelet Morphology LARGE
[2022-12-09] MEDS: Ipratropium 0.5 MG/2.5 ML SOLUTION INHALATION ×3 (07:02→19:13)
[2022-12-09] MEDS: Jevity 1.5 1,000 ML 38 ML GT (08:48)
[2022-12-09] MEDS: APIXABAN 5 MG TABLET PO ×2 (08:54→22:41)
[2022-12-09] MEDS: Amiodarone 200 MG Tablet GT ×2 (08:54→22:41)
[2022-12-09] MEDS: predniSONE 20 MG Tablet GT (08:54)
[2022-12-09] MEDS: Lansoprazole 15 MG Capsule.DR 30 MG GT (08:55)
[2022-12-09] MEDS: Clopidogrel Bisulfate 75 MG Tablet GT (08:55)
[2022-12-09] MEDS: Acetaminophen 650 MG/20 ML UDC GT ×2 (09:15→22:51)
[2022-12-09] MEDS: LORazepam 0.5 MG Tablet GT ×2 (09:15→22:39)
[2022-12-09] MEDS: Bumetanide 0.5 MG Tablet GT (10:28)
--- NOTE | 2022-12-09 10:49 | CASEMGMT ---
Addendum entered by Gisella Pires 12/09/22 12:05: SW spoke with patient and let her know about the other facilities she requested were unable to take her. SW let patient know [facility] able [facility]. Patient thanked ROSMERY for the update. Gisella YAN Original Note: [facility] accepted patient. ROSMERY sent updates regarding peg tube and bipap to [facility]. ROSMERY asked that they start the pre-cert. ROSMERY will talk with patient and notify her of this information. Gisella YAN
[2022-12-09] MEDS: 0.9% Saline Lock 10 ML Syringe IV ×2 (12:05→22:40)
--- NOTE | 2022-12-09 13:05 | PN_ITS ---
Subjective Subjective Patient seen and examined. She had no active complaints. SHe had an uneventful night. Review of systems was otherwise negative. Objective Data Objective Data Vital Signs: Vital Signs Temp Pulse Resp BP Pulse Ox O2 Del Method O2 Flow Rate 98.7 F 92 17 91/64 92 Nasal Cannula 3.5 12/09/22 11:49 12/09/22 11:49 12/09/22 11:49 12/09/22 11:49 12/09/22 11:49 12/09/22 11:49 12/09/22 11:49 FiO2 35 12/08/22 04:17 Oxygen Flow Rate (L/min) 3.5 Oxygen Delivery Method Nasal Cannula Weight: 93 lb 4.089 oz Body Mass Index (BMI) 19.5 Intake & Output: Intake and Output for Last 24 Hours 12/07/22 12/08/22 12/09/22 23:59 23:59 23:59 Intake Total 1885 / 1885 1499.07 / 1499.07 2705 / 2705 Output Total 1450 / 1450 2250 / 2250 750 / 750 Balance 435 / 435 -750.93 / -750.93 1954 / 1954 Medical Nutrition Assessment Dietitian: Malnutrition Criteria Met Start: 11/20/22 11:25 Freq: Status: Active Protocol: Document 12/07/22 13:35 JAYCE (Rec: 12/07/22 13:35 JAYCE [id number]) Nutrition Malnutrition Evidence of Malnutrition Exists Yes Malnutrition (severe): Chronic Evidenced By Suboptimal Energy Intake ( Severe),Weight Loss (Severe), Physical Changes (Moderate) Intake Problem Inadequate Oral Intake Etiology related to chewing/swallowing difficulty Signs/Symptoms as evidenced by altered consistency diet and main source of nutrition via PEG Status Active Problem Clinical Problem Chronic Disease or Condition Related Malnutrition Etiology Severe protein-calorie malnutrition in the context of chronic disease related to inadequate oral/energy intake Signs/Symptoms as evidenced by estimated PO intake meeting <50% 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, muscle/fat wasting visible in face, upper/lower extremities and torso and weight loss ~9% x less than 6 months with fluid likely masking additional wt loss Status Active Problem Recommendation Dietitian Recommendations/Changes Will continue via PEG Jevity 1 .5 at 38mL/hr with 95mL H2O flush q4 hours to provide 1368kcal, 58 grams protein and 1263mL water. Will monitor tolerance and transition to bolus feeds as indicated. Will liberalize diet to regular - consistency per CONFERENCE DIRECTOR. Will provide ensure pudding or magic cup w/ meals tid for increased nutrition if consumed. Lab / Micro Data Result Diagrams: 12/09/22 04:55 12/09/22 04:55 Labs: Laboratory Results - last 24 hr 12/09/22 04:55: WBC 12.7 H, RBC 3.50 L, Hgb 8.5 L, Hct 27.9 L, MCV 79.7 L, MCH 24.3 L, MCHC 30.5 L, RDW Std Deviation 87.5 H, RDW Coeff of Angie 32.3 H, Plt Count 450, MPV 11.2, Immature Gran % (Auto) 0.900, Neut % (Auto) 89.0 H, Lymph % (Auto) 3.6 L, [place] % (Auto) 6.1, Eos % (Auto) 0.2, Baso % (Auto) 0.2, Absolute Neuts (auto) 11.3 H, Absolute Lymphs (auto) 0.46 L, Nucleated RBC % 0, Plt Morphology Comment LARGE, Hypochromasia RARE, Anisocytosis 3+, Microcytosis 1+, Macrocytosis 1+ 12/09/22 04:55: Sodium 134 L, Potassium 4.0, Chloride 99, Carbon Dioxide 33.0 H, Anion Gap 2 L, BUN 26 H, Creatinine 0.40 L, Estim Creat Clear Calc 93.63, Est GFR (MDRD) Af Amer 203, Est GFR (MDRD) Non-Af 168, BUN/Creatinine Ratio 64.2 H, Glucose 110 H, Calcium 8.2 L Micro: Microbiology 11/26/22 13:52 Fluid - Thoracentesis Fluid Gram Stain - Final 11/26/22 13:52 Fluid - Thoracentesis Fluid Body Fluid Culture - Final No growth aerobically. 11/26/22 13:52 Fluid - Thoracentesis Fluid Anaerobic Culture - Final No anaerobic bacteria isolated. 11/29/22 10:55 Stool C. difficile DNA Amplification - Final 11/22/22 12:40 Wash - Bronchial Wash Gram Stain - Final 11/22/22 12:40 Wash - Bronchial Wash Respiratory Culture - Final Culture exhibits no growth. 11/22/22 12:40 Wash - Bronchial Wash Gram Stain - Final 11/22/22 12:40 Wash - Bronchial Wash Respiratory Culture - Final Culture exhibits no growth. 11/20/22 15:55 Sputum, Expectorated/Coughed Gram Stain - Final 11/20/22 15:55 Sputum, Expectorated/Coughed Respiratory Culture - Final Streptococcus pneumoniae 11/21/22 16:35 Sputum, Induced/Lukens Gram Stain - Final 11/21/22 16:35 Sputum, Induced/Lukens Respiratory Culture - Final Presumptive C albicans 11/20/22 14:00 Blood Culture (Wb) - Anticubital Left Bacteria Detection (PCR) - Final Streptococcus pneumoniae 11/20/22 14:00 Blood Culture (Wb) - Anticubital Left Blood Culture - Final Alpha hemolytic organism 11/20/22 13:55 Blood Culture (Wb) - Anticubital Right Blood Culture - Final Streptococcus pneumoniae 11/20/22 13:50 Urine Catheter - Catheter Urine Culture - Final Culture exhibits no growth. 11/20/22 14:57 Mucosa - Nasopharyngeal Influenza Types A,B Direct FA (SAMANTHA) - Final 11/20/22 13:50 Urine Catheter - Catheter Legionella Antigen - Final 11/20/22 13:50 Urine Catheter - Catheter Streptococcus pneumoniae Antigen (M - Final Rhythm Strip Rhythm Strip: Sinus Rhythm Rate: 76 Physical Exam Const alert, oriented x3 and no apparent distress Constitutional Narrative: Very frail HEENT normocephalic, head/scalp atraumatic and moist oral mucous membranes Eyes PERRL and EOMs intact bilaterally Neck no lymphadenopathy and supple General: trachea midline Lymph Lymphatic: no lymphadenopathy noted Resp Resp Narrative: Mildly diminished breath sounds bibasally. No wheezes or crackles. On 4 L of oxygen. Cardio regular rate, regular rhythm, S1 normal heart sound, S2 normal heart sound and no murmurs GI normal to inspection, nondistended, normoactive bowel sounds, soft to palpation, non-tender and non-distended GI Narrative: PEG tube in situ Extremity normal capillary refill and no clubbing, cyanosis or edema Skin General Skin Exam: no breakdown Neuro CN's II-XII intact bilaterally, no focal motor deficits and no sensory deficits noted Psych thought process normal and cooperative Appearance: appropriate Assessment & Plan Assessment/Plan (1) Sepsis due to Streptococcus pneumoniae with acute hypoxic respiratory failure and septic shock: (2) Acute and chronic respiratory failure with hypoxia: (3) Recurrent pleural effusion: PLAN: Plan #Acute on chronic hypoxic respiratory failure due to recurrent right pleural effusion and community acquired pneumonia as well as PE * s/p right thoracentesis on 11/26/2022 with removal of 525 mls of stephen-colored fluid. * Blood cultures were positive for strep pneumonia. She was initially intubated in the ICU. She was started on IV meropenem. * She is also s/p bronchoscopy cultures of which showed no growth. She has had a complicated hospital because. She was transferred to the floor but subsequently transferred back to the ICU due to concerns about worsening respiratory distress. * she is now on 4L of oxygen. Titrate oxygen to maintain sats >90% * Also on p.o. prednisone. * Critical care on board. Completed a course of antibiotics. * 2D echo showed severely dilated RV with moderate RV systolic dysfunction and pulmonary artery systolic pressure of 55-60mmhg. * #Pulmonary embolism * CTA of the chest showed PE with heart strain. It was a subsegmental PE in the right upper lobe * Currently on Eliquis. On Eliquis 5 mg twice daily due to her nosebleed and hematuria. * eliquis resumed yesterday; hasnt had any more hematuria. Will monitor * * #Hematuria: * Resolving. didnt recur overnight. Eliquis resumed. #Moderate pulmonary hypertension: pulmonary artery systolic pressure is 55-60%, as above. Likely contributing to her respiratory failure. #CAD s/p stents: On aspirin as well as Lipitor and Plavix. #Hyperlipidemia: On statin #Paroxysmal A-fib: On amiodarone; on eliquis #Oropharyngeal dysphagia * Has PEG tube in place. Barium swallow showed moderate oropharyngeal disease patient with dysphagia retention. * Currently on a modified diet. Speech therapy and on tube feed for supplementation #Hypothyroidism: On Synthroid #Severe protein calorie malnutrition: On tube feeds and a modified diet. Nutrition on board. #GERD: On PPI DVT prophylaxis:eliquis r Disposition: awaiting placement. Charges/Coding Visit Charges Inpatient E&M: 76440 Subs Hosp L2
--- NOTE | 2022-12-09 17:13 | NURSING ---
Peg tube flushed and turned off.
[2022-12-09] MEDS: Polyethylene Glycol 3350 17 GM PACKET GT (18:38)
[2022-12-09] MEDS: Jevity 1.5. 1,000 ML Bottle 180 ML GT ×2 (21:00→23:00)
[2022-12-09] MEDS: Atorvastatin Calcium 40 MG Tablet GT (22:41)
[2022-12-09] MEDS: Sodium Chloride 0.65% 1 SPRAY SPRAY.BTL 2 SPRAY NASAL (22:43)
[2022-12-10] VITALS (14 sets, daily range): BP systolic 98–116; BP diastolic 73–83; PULSE 79–94; RESP 12–22; TEMP 36.5–36.8; O2SAT 92–98; BMI 19.2
[2022-12-10] MEDS: Jevity 1.5. 1,000 ML Bottle 180 ML GT ×4 (06:02→22:46)
[2022-12-10] MEDS: Levothyroxine 88 MCG Tablet GT (06:02)
[2022-12-10] MEDS: Menthol/Lanolin/Calamine/Znox 113 GM Tube 1 APPLIC TOPICAL ×3 (06:02→22:47)
[2022-12-10 06:15] LABS: Absolute Lymphocyte Count 0.46 X10^3/uL (0.83-4.51); Absolute Neutrophil Count 14.1 X10^3/uL (2.0-7.7); Basophil# 0.02 X10^3/uL; Basophil% 0.1 % (0-1); Eosinophil# 0.07 X10^3/uL; Eosinophils% 0.4 % (0-5); Hematocrit 31.1 % (37-47); Hemoglobin 9.2 g/dL (12.0-15.0); Lymphocyte # 0.46 X10^3/ul (0.83-4.51); Mean Corp Hgb Conc 29.6 g/dL (32-36); Mean Corpuscular Hgb 24.1 pg (27.0-32.0); Mean Corpuscular Volume 81.4 fL (81-99); Monocyte# 0.86 X10^3/uL; Monocyte% 5.5 % (0-10); NRBC Flagged by Analyzer 0 % (0-5); Neutrophil # 14.06 X10^3/uL (2.7-7.7); Neutrophil % 90.2 % (47-70); POSITIVE DIFFERENTIAL YES; POSITIVE MORPHOLOGY YES; Platelet Count 422 K/mm3 (150-450); RBC Distribution Width CV 32.4 % (11.6-14.6); RBC Distribution Width SD 89.9 fl (35.1-43.9); Red Blood Count 3.82 M/mm3 (4.2-5.4); White Blood Count 15.6 K/mm3 (4.4-11.0)
[2022-12-10 06:20] LABS: Differential Indicated SCAN CRITERIA MET
[2022-12-10 06:49] LABS: Anisocytosis 3+; Macrocytosis 1+; Microcytosis 1+; Platelet Morphology LARGE
[2022-12-10 06:53] LABS: Anion Gap 5 (5-15); BUN 31 mg/dL (7-18); BUN/Creat Ratio 66.4 RATIO (10-20); Calcium,Total 8.5 mg/dL (8.5-10.1); Chloride 96 mmol/L (98-107); Creatinine, Serum 0.47 mg/dL (0.55-1.02); EST Glomerular Filtration Rate 142 mL/min (>60); Est Glom Filt Rate - Afr Amer 172 mL/min (>60); Estimated Creatinine Clearance 78.37 ml/min; Glucose 83 mg/dL (74-106); Potassium 3.7 mmol/L (3.5-5.1); Sodium Level 131 mmol/L (136-145)
[2022-12-10] MEDS: Ipratropium 0.5 MG/2.5 ML SOLUTION INHALATION ×3 (07:02→19:45)
--- NOTE | 2022-12-10 10:35 | CASEMGMT ---
ROSMERY spoke with Laurence at [facility]. They will order patient's tube feed formula, but it won't be in until next . Laurence asked if [facility] could send some with him. ROSMERY will have to check on this. Gisella Pires OPERATING ROOM ASSISTANT FARRAH
[2022-12-10] MEDS: Spironolactone 25 MG Tablet GT (11:00)
[2022-12-10] MEDS: Bumetanide 0.5 MG Tablet GT (11:00)
[2022-12-10] MEDS: Acetaminophen 650 MG/20 ML UDC GT ×2 (11:01→20:15)
[2022-12-10] MEDS: Amiodarone 200 MG Tablet GT ×2 (11:01→22:46)
[2022-12-10] MEDS: Lansoprazole 15 MG Capsule.DR 30 MG GT (11:01)
[2022-12-10] MEDS: LORazepam 0.5 MG Tablet GT ×2 (11:01→22:46)
[2022-12-10] MEDS: APIXABAN 5 MG TABLET PO ×2 (11:01→22:47)
[2022-12-10] MEDS: predniSONE 20 MG Tablet GT (11:01)
[2022-12-10] MEDS: Clopidogrel Bisulfate 75 MG Tablet GT (11:03)
--- NOTE | 2022-12-10 11:56 | CHAPLAIN ---
Type of Pastoral Visit ___ Initial Visit _x__ Follow-up Visit ___ On-call Visit ___ General Patient Visit ___ Spiritual Assessment ___ Family Conference ___ Bereavement ___ Rapid Response ___ Code Blue ___ Other (describe below) Pastoral Care Referral From _x__ Patient ___ Family ___ Nurse ___ Physician ___ Logistics Intern ___ Seismic Engineer ___ Other (describe below) Sacrament/Intervention _x__ Active listening ___ Anointing ___ Pentecostal ___ Bereavement ___ Communion ___ Angie exploration ___ ___ Life review _x__ Prayer ___ Reconciliation ___ Sacrament of Sick _x__ Supportive presence ___ Wedding ___ Other (describe below) Pastoral Comments patient has had a long stay in hospital going between ICU and PCU; offer of follow up and ongoing support given; pt welcomes the visit; pt is slow to talk and given that it takes some effort the visit is kept brief; pt states her concern is getting some tasks completed that she needs to do; supportive presence, calming words, and prayer given for patient
--- NOTE | 2022-12-10 13:36 | CPS ---
Bipap settings for SNF: IPAP 12, EPAP 8, Fio2 35% rate 12.
[2022-12-10] MEDS: Polyethylene Glycol 3350 17 GM PACKET GT (14:28)
--- NOTE | 2022-12-10 14:39 | PN_ITS ---
Subjective Subjective Patient seen and examined. She had no complaints and had an uneventful night. Review of systems is otherwise negative. She has remained hemodynamically stable. Objective Data Objective Data Vital Signs: Vital Signs Temp Pulse Resp BP Pulse Ox O2 Del Method O2 Flow Rate 97.7 F L 94 18 101/73 92 Nasal Cannula 3 12/10/22 14:25 12/10/22 14:25 12/10/22 14:25 12/10/22 14:25 12/10/22 14:25 12/10/22 14:25 12/10/22 14:25 FiO2 35 12/10/22 03:09 Oxygen Flow Rate (L/min) 3 Oxygen Delivery Method Nasal Cannula Weight: 91 lb 11.397 oz Body Mass Index (BMI) 19.2 Intake & Output: Intake and Output for Last 24 Hours 12/08/22 12/09/22 12/10/22 23:59 23:59 23:59 Intake Total 1499.07 / 1499.07 4367 / 4727 770 / 770 Output Total 2250 / 2250 750 / 750 350 / 350 Balance -750.93 / -750.93 3617 / 3977 420 / 420 Medical Nutrition Assessment Dietitian: Malnutrition Criteria Met Start: 11/20/22 11:25 Freq: Status: Active Protocol: Document 12/09/22 14:47 AG (Rec: 12/09/22 14:47 AG [id number]) Nutrition Malnutrition Evidence of Malnutrition Exists Yes Malnutrition (severe): Chronic Evidenced By Suboptimal Energy Intake ( Severe),Weight Loss (Severe), Physical Changes (Moderate) Intake Problem Inadequate Oral Intake Etiology related to chewing/swallowing difficulty Signs/Symptoms as evidenced by altered consistency diet and estimated PO intake meeting <50% of estimated energy needs Status Active Problem Clinical Problem Chronic Disease or Condition Related Malnutrition Etiology Severe protein-calorie malnutrition in the context of chronic disease related to inadequate oral/energy intake Signs/Symptoms as evidenced by estimated PO intake meeting <50% of estimated nutritional needs 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 2) Will transition to bolus feeds via PEG- Jevity 1.5 180mL bolus 5x/day w/ 60mL H2O flush before and after each bolus to provide 1350 calories , 57 g protein, and 1284mL fluid/day. Would start w/ 60mL for first bolus, increase by 60mL as tolerated until goal volume is achieved. Discussed feeding schedule w/ pt and agreed to try feeds at 0600, 1000, 1400, 2000, and 2200. 3) Continue daily wts. Lab / Micro Data Result Diagrams: 12/10/22 05:29 12/10/22 05:29 Labs: Laboratory Results - last 24 hr 12/10/22 05:29: WBC 15.6 H, RBC 3.82 L, Hgb 9.2 L, Hct 31.1 L, MCV 81.4, MCH 24.1 L, MCHC 29.6 L, RDW Std Deviation 89.9 H, RDW Coeff of Angie 32.4 H, Plt Count 422, Immature Gran % (Auto) 0.800, Neut % (Auto) 90.2 H, Lymph % (Auto) 3.0 L, Allen % (Auto) 5.5, Eos % (Auto) 0.4, Baso % (Auto) 0.1, Absolute Neuts (auto) 14.1 H, Absolute Lymphs (auto) 0.46 L, Nucleated RBC % 0, Plt Morphology Comment LARGE, Anisocytosis 3+, Microcytosis 1+, Macrocytosis 1+ 12/10/22 05:29: Sodium 131 L, Potassium 3.7, Chloride 96 L, Carbon Dioxide 30.0, Anion Gap 5, BUN 31 H, Creatinine 0.47 L, Estim Creat Clear Calc 78.37, Est GFR (MDRD) Af Amer 172, Est GFR (MDRD) Non-Af 142, BUN/Creatinine Ratio 66.4 H, Glucose 83, Calcium 8.5 Micro: Microbiology 11/26/22 13:52 Fluid - Thoracentesis Fluid Gram Stain - Final 11/26/22 13:52 Fluid - Thoracentesis Fluid Body Fluid Culture - Final No growth aerobically. 11/26/22 13:52 Fluid - Thoracentesis Fluid Anaerobic Culture - Final No anaerobic bacteria isolated. 11/29/22 10:55 Stool C. difficile DNA Amplification - Final 11/22/22 12:40 Wash - Bronchial Wash Gram Stain - Final 11/22/22 12:40 Wash - Bronchial Wash Respiratory Culture - Final Culture exhibits no growth. 11/22/22 12:40 Wash - Bronchial Wash Gram Stain - Final 11/22/22 12:40 Wash - Bronchial Wash Respiratory Culture - Final Culture exhibits no growth. 11/20/22 15:55 Sputum, Expectorated/Coughed Gram Stain - Final 11/20/22 15:55 Sputum, Expectorated/Coughed Respiratory Culture - Final Streptococcus pneumoniae 11/21/22 16:35 Sputum, Induced/Lukens Gram Stain - Final 11/21/22 16:35 Sputum, Induced/Lukens Respiratory Culture - Final Presumptive C albicans 11/20/22 14:00 Blood Culture (Wb) - Anticubital Left Bacteria Detection (PCR) - Final Streptococcus pneumoniae 11/20/22 14:00 Blood Culture (Wb) - Anticubital Left Blood Culture - Final Alpha hemolytic organism 11/20/22 13:55 Blood Culture (Wb) - Anticubital Right Blood Culture - Final Streptococcus pneumoniae 11/20/22 13:50 Urine Catheter - Catheter Urine Culture - Final Culture exhibits no growth. 11/20/22 14:57 Mucosa - Nasopharyngeal Influenza Types A,B Direct FA (SAMANTHA) - Final 11/20/22 13:50 Urine Catheter - Catheter Legionella Antigen - Final 11/20/22 13:50 Urine Catheter - Catheter Streptococcus pneumoniae Antigen (M - Final Rhythm Strip Rhythm Strip: Sinus Rhythm Rate: 76 Physical Exam Const alert, oriented x3 and no apparent distress Constitutional Narrative: Very frail HEENT normocephalic, head/scalp atraumatic and moist oral mucous membranes Eyes PERRL and EOMs intact bilaterally Neck no lymphadenopathy and supple General: trachea midline Lymph Lymphatic: no lymphadenopathy noted Resp Resp Narrative: Mildly diminished breath sounds bibasally. No wheezes or crackles. On 3L of oxygen. Cardio regular rate, regular rhythm, S1 normal heart sound, S2 normal heart sound and no murmurs GI normal to inspection, nondistended, normoactive bowel sounds, soft to palpation, non-tender and non-distended GI Narrative: PEG tube in situ Extremity normal capillary refill and no clubbing, cyanosis or edema Skin General Skin Exam: no breakdown Neuro CN's II-XII intact bilaterally, no focal motor deficits and no sensory deficits noted Psych thought process normal and cooperative Appearance: appropriate Assessment & Plan Assessment/Plan (1) Sepsis due to Streptococcus pneumoniae with acute hypoxic respiratory failure and septic shock: (2) Acute and chronic respiratory failure with hypoxia: (3) Recurrent pleural effusion: PLAN: Plan #Acute on chronic hypoxic respiratory failure due to recurrent right pleural effusion and community acquired pneumonia as well as PE * s/p right thoracentesis on 11/26/2022 with removal of 525 mls of stephen-colored fluid. * Blood cultures were positive for strep pneumonia. She was initially intubated in the ICU. She was started on IV meropenem. * She is also s/p bronchoscopy cultures of which showed no growth. She has had a complicated hospital because. She was transferred to the floor but subsequently transferred back to the ICU due to concerns about worsening respiratory distress. * she is now on 4L of oxygen. Titrate oxygen to maintain sats >90% * Also on p.o. prednisone. * Critical care on board. Completed a course of antibiotics. * 2D echo showed severely dilated RV with moderate RV systolic dysfunction and pulmonary artery systolic pressure of 55-60mmhg. * #Pulmonary embolism * CTA of the chest showed PE with heart strain. It was a subsegmental PE in the right upper lobe * Currently on Eliquis. On Eliquis 5 mg twice daily due to her nosebleed and hematuria. * nose bleed and hematuria havent recurred * #Hematuria: * resolved. Eliquis has been resumed and it hasnt recurred. * #Moderate pulmonary hypertension: pulmonary artery systolic pressure is 55-60%, as above. Likely contributing to her respiratory failure. #CAD s/p stents: On aspirin as well as Lipitor and Plavix. #Hyperlipidemia: On statin #Paroxysmal A-fib: On amiodarone; on eliquis #Oropharyngeal dysphagia * Has PEG tube in place. Barium swallow showed moderate oropharyngeal disease patient with dysphagia retention. * Currently on a modified diet. Speech therapy and on tube feed for supplementation * tube feed held today as patient felt bloated and constipated. #Hypothyroidism: On Synthroid #Severe protein calorie malnutrition: On tube feeds and a modified diet. Nutrition on board. #GERD: On PPI DVT prophylaxis:eliquis Disposition: awaiting placement. Charges/Coding Visit Charges Inpatient E&M: 48953 Subs Hosp L2
--- NOTE | 2022-12-10 15:24 | CASEMGMT ---
ROSMERY sent patient's bipap settings to [facility] via [facility]. Gisella YAN
[2022-12-10] MEDS: Bisacodyl 10 MG Suppository RC (20:28)
[2022-12-10] MEDS: Atorvastatin Calcium 40 MG Tablet GT (22:46)
[2022-12-11] VITALS (14 sets, daily range): BP systolic 98–130; BP diastolic 68–83; PULSE 83–97; RESP 12–22; TEMP 36.4–36.9; O2SAT 90–100; BMI 19.3
[2022-12-11] MEDS: Sodium Chloride 0.65% 1 SPRAY SPRAY.BTL 2 SPRAY NASAL ×3 (03:44→20:32)
[2022-12-11] MEDS: Levothyroxine 88 MCG Tablet GT (06:02)
[2022-12-11] MEDS: Acetaminophen 650 MG/20 ML UDC GT ×2 (06:02→20:23)
[2022-12-11] MEDS: Menthol/Lanolin/Calamine/Znox 113 GM Tube 1 APPLIC TOPICAL ×3 (06:03→22:28)
[2022-12-11 06:30] LABS: Absolute Lymphocyte Count 0.47 X10^3/uL (0.83-4.51); Absolute Neutrophil Count 14.7 X10^3/uL (2.0-7.7); Basophil# 0.02 X10^3/uL; Basophil% 0.1 % (0-1); Eosinophil# 0.02 X10^3/uL; Eosinophils% 0.1 % (0-5); Hematocrit 31.4 % (37-47); Hemoglobin 9.6 g/dL (12.0-15.0); Lymphocyte # 0.47 X10^3/ul (0.83-4.51); Lymphocyte % 2.9 % (19-41); Mean Corp Hgb Conc 30.6 g/dL (32-36); Mean Corpuscular Hgb 24.1 pg (27.0-32.0); Mean Corpuscular Volume 78.7 fL (81-99); Monocyte# 0.74 X10^3/uL; Monocyte% 4.6 % (0-10); NRBC Flagged by Analyzer 0 % (0-5); Neutrophil # 14.68 X10^3/uL (2.7-7.7); Neutrophil % 91.7 % (47-70); POSITIVE DIFFERENTIAL YES; POSITIVE MORPHOLOGY YES; Platelet Count 430 K/mm3 (150-450); RBC Distribution Width CV 32.9 % (11.6-14.6); RBC Distribution Width SD 86.5 fl (35.1-43.9); Red Blood Count 3.99 M/mm3 (4.2-5.4)
[2022-12-11 06:38] LABS: Differential Indicated SCAN CRITERIA MET
[2022-12-11 06:58] LABS: Anisocytosis 3+; Macrocytosis 1+; Microcytosis 1+
[2022-12-11 06:59] LABS: Anion Gap 7 (5-15); BUN 37 mg/dL (7-18); BUN/Creat Ratio 77.2 RATIO (10-20); Calcium,Total 8.7 mg/dL (8.5-10.1); Chloride 92 mmol/L (98-107); Creatinine, Serum 0.48 mg/dL (0.55-1.02); EST Glomerular Filtration Rate 138 mL/min (>60); Est Glom Filt Rate - Afr Amer 167 mL/min (>60); Estimated Creatinine Clearance 77.29 ml/min; Glucose 110 mg/dL (74-106); Potassium 4.2 mmol/L (3.5-5.1); Sodium Level 128 mmol/L (136-145)
[2022-12-11] MEDS: Ipratropium 0.5 MG/2.5 ML SOLUTION INHALATION ×3 (07:33→19:06)
[2022-12-11] MEDS: Amiodarone 200 MG Tablet GT ×2 (09:23→22:29)
[2022-12-11] MEDS: Spironolactone 25 MG Tablet GT (09:23)
[2022-12-11] MEDS: Clopidogrel Bisulfate 75 MG Tablet GT (09:23)
[2022-12-11] MEDS: predniSONE 20 MG Tablet GT (09:23)
[2022-12-11] MEDS: Lansoprazole 15 MG Capsule.DR 30 MG GT (09:24)
[2022-12-11] MEDS: Bumetanide 0.5 MG Tablet GT (09:25)
[2022-12-11] MEDS: APIXABAN 5 MG TABLET PO ×2 (09:25→22:29)
[2022-12-11] MEDS: LORazepam 0.5 MG Tablet GT ×2 (09:28→22:29)
--- NOTE | 2022-12-11 11:09 | PN_ITS ---
Subjective Subjective Patient seen and examined. She had no complaitns today and had an uneventful night. Her oxygen requirements seem to have increased to 6L today, from 3L yesterday. She denies any shortness of breath. Review of systems is otherwise negative. Objective Data Objective Data Vital Signs: Vital Signs Temp Pulse Resp BP Pulse Ox O2 Del Method O2 Flow Rate 97.9 F 84 18 100/68 94 Nasal Cannula 6 12/11/22 09:28 12/11/22 09:28 12/11/22 09:28 12/11/22 09:28 12/11/22 09:28 12/11/22 09:28 12/11/22 09:28 FiO2 35 12/11/22 03:00 Oxygen Flow Rate (L/min) 6 Oxygen Delivery Method Nasal Cannula Weight: 92 lb 5.979 oz Body Mass Index (BMI) 19.3 Intake & Output: Intake and Output for Last 24 Hours 12/09/22 12/10/22 12/11/22 23:59 23:59 23:59 Intake Total 4367 / 4727 1110 / 1210 100 / 100 Output Total 750 / 750 450 / 650 1400 / 1400 Balance 3617 / 3977 660 / 560 -1300 / -1300 Medical Nutrition Assessment Dietitian: Malnutrition Criteria Met Start: 11/20/22 11:25 Freq: Status: Active Protocol: Document 12/09/22 14:47 AG (Rec: 12/09/22 14:47 AG [id number]) Nutrition Malnutrition Evidence of Malnutrition Exists Yes Malnutrition (severe): Chronic Evidenced By Suboptimal Energy Intake ( Severe),Weight Loss (Severe), Physical Changes (Moderate) Intake Problem Inadequate Oral Intake Etiology related to chewing/swallowing difficulty Signs/Symptoms as evidenced by altered consistency diet and estimated PO intake meeting <50% of estimated energy needs Status Active Problem Clinical Problem Chronic Disease or Condition Related Malnutrition Etiology Severe protein-calorie malnutrition in the context of chronic disease related to inadequate oral/energy intake Signs/Symptoms as evidenced by estimated PO intake meeting <50% of estimated nutritional needs 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 2) Will transition to bolus feeds via PEG- Jevity 1.5 180mL bolus 5x/day w/ 60mL H2O flush before and after each bolus to provide 1350 calories , 57 g protein, and 1284mL fluid/day. Would start w/ 60mL for first bolus, increase by 60mL as tolerated until goal volume is achieved. Discussed feeding schedule w/ pt and agreed to try feeds at 0600, 1000, 1400, 2000, and 2200. 3) Continue daily wts. Lab / Micro Data Result Diagrams: 12/11/22 05:44 12/11/22 05:44 Labs: Laboratory Results - last 24 hr 12/11/22 05:44: WBC 16.0 H, RBC 3.99 L, Hgb 9.6 L, Hct 31.4 L, MCV 78.7 L, MCH 24.1 L, MCHC 30.6 L, RDW Std Deviation 86.5 H, RDW Coeff of Angie 32.9 H, Plt Count 430, Immature Gran % (Auto) 0.600, Neut % (Auto) 91.7 H, Lymph % (Auto) 2.9 L, Hall % (Auto) 4.6, Eos % (Auto) 0.1, Baso % (Auto) 0.1, Absolute Neuts (auto) 14.7 H, Absolute Lymphs (auto) 0.47 L, Nucleated RBC % 0, Anisocytosis 3+, Microcytosis 1+, Macrocytosis 1+ 12/11/22 05:44: Sodium 128 L, Potassium 4.2, Chloride 92 L, Carbon Dioxide 29.0, Anion Gap 7, BUN 37 H, Creatinine 0.48 L, Estim Creat Clear Calc 77.29, Est GFR (MDRD) Af Amer 167, Est GFR (MDRD) Non-Af 138, BUN/Creatinine Ratio 77.2 H, Glucose 110 H, Calcium 8.7 Micro: Microbiology 11/26/22 13:52 Fluid - Thoracentesis Fluid Gram Stain - Final 11/26/22 13:52 Fluid - Thoracentesis Fluid Body Fluid Culture - Final No growth aerobically. 11/26/22 13:52 Fluid - Thoracentesis Fluid Anaerobic Culture - Final No anaerobic bacteria isolated. 11/29/22 10:55 Stool C. difficile DNA Amplification - Final 11/22/22 12:40 Wash - Bronchial Wash Gram Stain - Final 11/22/22 12:40 Wash - Bronchial Wash Respiratory Culture - Final Culture exhibits no growth. 11/22/22 12:40 Wash - Bronchial Wash Gram Stain - Final 11/22/22 12:40 Wash - Bronchial Wash Respiratory Culture - Final Culture exhibits no growth. 11/20/22 15:55 Sputum, Expectorated/Coughed Gram Stain - Final 11/20/22 15:55 Sputum, Expectorated/Coughed Respiratory Culture - Final Streptococcus pneumoniae 11/21/22 16:35 Sputum, Induced/Lukens Gram Stain - Final 11/21/22 16:35 Sputum, Induced/Lukens Respiratory Culture - Final Presumptive C albicans 11/20/22 14:00 Blood Culture (Wb) - Anticubital Left Bacteria Detection (PCR) - Final Streptococcus pneumoniae 11/20/22 14:00 Blood Culture (Wb) - Anticubital Left Blood Culture - Final Alpha hemolytic organism 11/20/22 13:55 Blood Culture (Wb) - Anticubital Right Blood Culture - Final Streptococcus pneumoniae 11/20/22 13:50 Urine Catheter - Catheter Urine Culture - Final Culture exhibits no growth. 11/20/22 14:57 Mucosa - Nasopharyngeal Influenza Types A,B Direct FA (SAMANTHA) - Final 11/20/22 13:50 Urine Catheter - Catheter Legionella Antigen - Final 11/20/22 13:50 Urine Catheter - Catheter Streptococcus pneumoniae Antigen (M - Final Rhythm Strip Rhythm Strip: Sinus Rhythm Rate: 76 Physical Exam Const alert, oriented x3 and no apparent distress Constitutional Narrative: Very frail General Appearance: cooperative HEENT normocephalic, head/scalp atraumatic and moist oral mucous membranes Eyes PERRL and EOMs intact bilaterally Neck no lymphadenopathy and supple General: trachea midline Lymph Lymphatic: no lymphadenopathy noted Resp Resp Narrative: Mildly diminished breath sounds bibasally. No wheezes or crackles. On 6L of oxygen. Cardio regular rate, regular rhythm, S1 normal heart sound, S2 normal heart sound and no murmurs GI normal to inspection, nondistended, normoactive bowel sounds, soft to palpation, non-tender and non-distended GI Narrative: PEG tube in situ Extremity normal capillary refill and no clubbing, cyanosis or edema Skin General Skin Exam: no breakdown Neuro CN's II-XII intact bilaterally, no focal motor deficits and no sensory deficits noted Psych thought process normal and cooperative Appearance: appropriate Assessment & Plan Assessment/Plan (1) Sepsis due to Streptococcus pneumoniae with acute hypoxic respiratory failure and septic shock: (2) Acute and chronic respiratory failure with hypoxia: (3) Recurrent pleural effusion: PLAN: Plan #Acute on chronic hypoxic respiratory failure due to recurrent right pleural ef fusion and community acquired pneumonia as well as PE * s/p right thoracentesis on 11/26/2022 with removal of 525 mls of stephen-colored fluid. * Blood cultures were positive for strep pneumonia. She was initially intubated in the ICU. She was started on IV meropenem. * She is also s/p bronchoscopy cultures of which showed no growth. She has had a complicated hospital because. She was transferred to the floor but subsequently transferred back to the ICU due to concerns about worsening respiratory distress. * now on 6L of oxygen, up from 5L yesterday * will get a CXR * titrate oxygen to maintain sats >90% * breathing treatment with bronchodilators. * 2D echo showed severely dilated RV with moderate RV systolic dysfunction and pulmonary artery systolic pressure of 55-60mmhg. * #Pulmonary embolism * CTA of the chest showed PE with heart strain. It was a subsegmental PE in the right upper lobe * Currently on Eliquis. On Eliquis 5 mg twice daily due to her nosebleed and hematuria. * nose bleed and hematuria havent recurred * #Hematuria: * resolved. Eliquis has been resumed and it hasnt recurred. * #Hyponatremia * sodium is 128. May be due to fluid overload as her oxygen requirements is increasing * will diurese with IV lasix due to suspected fluid overload * trend sodium * #Moderate pulmonary hypertension: pulmonary artery systolic pressure is 55-60%, as above. Likely contributing to her respiratory failure. #CAD s/p stents: On aspirin as well as Lipitor and Plavix. #Hyperlipidemia: On statin #Paroxysmal A-fib: On amiodarone; on eliquis #Oropharyngeal dysphagia * Has PEG tube in place. Barium swallow showed moderate oropharyngeal disease patient with dysphagia retention. * Currently on a modified diet. Speech therapy and on tube feed for supplementation * #Hypothyroidism: On Synthroid #Severe protein calorie malnutrition: On tube feeds and a modified diet. Nutrition on board. #GERD: On PPI DVT prophylaxis:eliquis Disposition: awaiting placement. Charges/Coding Visit Charges Inpatient E&M: 71082 Subs Hosp L2
--- NOTE | 2022-12-11 11:30 | RAD_ITS ---
STUDY: X-RAY CHEST REASON FOR EXAM: Female, 67 years old. shortness of breath TECHNIQUE: Single AP portable view of the chest. COMPARISON: Comparison is made with prior study dated December 03, 2022. FINDINGS: EKG electrodes are seen. A left-sided PICC line catheter is in situ and the tip is at the junction of the superior vena cava and right atrium. Stable small bilateral pleural effusions left greater than right with bibasilar atelectasis. Normal size heart. Normal mediastinum and agapito. Normal visualized pulmonary arteries. There is atherosclerotic calcification of the aortic arch with tortuosity. Normal visualized thoracic spine. Normal visualized ribs, clavicles, and shoulders. There is no demonstrated abnormality of the visualized soft tissue structures of the upper abdomen. RAD/Chest 1 View (Portable) IMPRESSION: Stable small bilateral pleural effusions left greater than right with bibasilar atelectasis. Electronically Signed: Bert Hirsch MD at 12:14 EDT ,
[2022-12-11 11:49] LABS: BNP,B-Type NATRIURETIC PEPTIDE 25.2 pg/mL (0-100)
[2022-12-11] MEDS: Furosemide 40 MG/4 ML Vial IV (12:08)
[2022-12-11] MEDS: 0.9% Saline Lock 10 ML Syringe IV ×2 (12:09→22:58)
--- NOTE | 2022-12-11 14:25 | CASEMGMT ---
Patient was approved to go to [facility]. Patient is not ready for d/c today. SW notified [facility]. Green sheet will be placed on patient's chart in the event she is ready tomorrow. Plan: d/c to [facility] when medically ready. Insurance approved patient. Gisella Pires DOOR GLASS INSTALLER FARRAH
--- NOTE | 2022-12-11 15:29 | CASEMGMT ---
Addendum entered by Gisella Pires 12/11/22 15:37: SW notified RN of tube feeds that go with patient. Gisella YAN Original Note: SW notified patient that she was approved by insurance to go to [facility]. SW called patient's son Damion and left him a voice mail letting him know about acceptance at [facility] and insurance approval. SW completed a PASRR in [facility]. [facility] asked if [facility] could send 2 bottles of tube feed with patient. ROSMERY spoke with pharmacy and they brought 2 bottles to the floor. SW placed the bottles in a patient belongings bag and placed in patient's room. ROSMERY notified charge machine operator Saadia and will notify RN. Plan: d/c to [facility] when medically ready. Insurance approved. Gisella YAN
[2022-12-11] MEDS: Jevity 1.5. 1,000 ML Bottle 180 ML GT ×2 (20:23→22:31)
[2022-12-11] MEDS: Atorvastatin Calcium 40 MG Tablet GT (22:30)
--- NOTE | 2022-12-11 23:30 | NURSING ---
pt states she does not want neil catheter at this time and would like to continue using catheter for now.
[2022-12-12] VITALS (9 sets, daily range): BP systolic 98–117; BP diastolic 68–77; PULSE 78–96; RESP 14–23; TEMP 36.3–36.7; O2SAT 92–99; BMI 18.4
[2022-12-12] MEDS: Levothyroxine 88 MCG Tablet GT (05:29)
[2022-12-12] MEDS: Menthol/Lanolin/Calamine/Znox 113 GM Tube 1 APPLIC TOPICAL (05:29)
[2022-12-12] MEDS: Jevity 1.5. 1,000 ML Bottle 180 ML GT (05:29)
[2022-12-12 07:05] LABS: Absolute Lymphocyte Count 0.33 X10^3/uL (0.83-4.51); Absolute Neutrophil Count 10.5 X10^3/uL (2.0-7.7); Basophil# 0.01 X10^3/uL; Basophil% 0.1 % (0-1); Eosinophil# 0.14 X10^3/uL; Eosinophils% 1.2 % (0-5); Hematocrit 29.1 % (37-47); Hemoglobin 8.7 g/dL (12.0-15.0); Lymphocyte # 0.33 X10^3/ul (0.83-4.51); Lymphocyte % 2.9 % (19-41); Mean Corp Hgb Conc 29.9 g/dL (32-36); Mean Corpuscular Hgb 24.4 pg (27.0-32.0); Mean Corpuscular Volume 81.7 fL (81-99); Mean Platelet Vol. 11.4 fl (6.2-12.0); Monocyte# 0.36 X10^3/uL; Monocyte% 3.2 % (0-10); NRBC Flagged by Analyzer 0 % (0-5); Neutrophil # 10.48 X10^3/uL (2.7-7.7); Neutrophil % 91.9 % (47-70); POSITIVE DIFFERENTIAL YES; POSITIVE MORPHOLOGY YES; Platelet Count 368 K/mm3 (150-450); RBC Distribution Width SD 89.2 fl (35.1-43.9); Red Blood Count 3.56 M/mm3 (4.2-5.4); White Blood Count 11.4 K/mm3 (4.4-11.0)
[2022-12-12] MEDS: Ipratropium 0.5 MG/2.5 ML SOLUTION INHALATION ×2 (07:10→14:07)
[2022-12-12 07:14] LABS: Differential Indicated SCAN CRITERIA MET
[2022-12-12 07:29] LABS: Anion Gap 4 (5-15); BUN 35 mg/dL (7-18); BUN/Creat Ratio 63.5 RATIO (10-20); Calcium,Total 8.4 mg/dL (8.5-10.1); Chloride 92 mmol/L (98-107); Creatinine, Serum 0.55 mg/dL (0.55-1.02); EST Glomerular Filtration Rate 117 mL/min (>60); Est Glom Filt Rate - Afr Amer 142 mL/min (>60); Estimated Creatinine Clearance 64.07 ml/min; Glucose 180 mg/dL (74-106); Potassium 3.2 mmol/L (3.5-5.1); Sodium Level 129 mmol/L (136-145)
[2022-12-12] MEDS: Potassium Chloride Oral Tablet 20 MEQ 40 MEQ PO (09:13)
[2022-12-12] MEDS: Clopidogrel Bisulfate 75 MG Tablet GT (09:13)
[2022-12-12] MEDS: Spironolactone 25 MG Tablet GT (09:14)
[2022-12-12] MEDS: APIXABAN 5 MG TABLET PO (09:14)
[2022-12-12] MEDS: Amiodarone 200 MG Tablet GT (09:15)
[2022-12-12] MEDS: predniSONE 20 MG Tablet GT (09:16)
[2022-12-12] MEDS: Lansoprazole 15 MG Capsule.DR 30 MG GT (09:16)
[2022-12-12] MEDS: LORazepam 0.5 MG Tablet GT (09:25)
[2022-12-12 09:39] LABS: Differential Comment SCANNED
[2022-12-12 09:40] LABS: Anisocytosis 2+; Hypochromasia 1+; Macrocytosis 1+; Microcytosis 1+
--- NOTE | 2022-12-12 12:38 | TREXTCAR_ITS ---
Diet Diet Order/Speech Therapy: 12/07/22 13:34 Diet: Regular - General Food consistency:: Mechanical (Minced/Moist) Liquid Consistency:: Honey/Moderately Thick Type of Dietary Supplement:: MC or EP meals tid Is pt able to select menu?: Yes Diet Comments: Direct Supervision & Assist Feeding, Alt bites/sips 1:1 ratio Routine Orders/Code Status Enema Type: Fleetz Enema Frequency: Daily PRN Suppository Type: Dulcolax 10mg Suppository Frequency: Daily PRN O2 Liters per Minute: 3-4L O2 Frequency: Continuous Keep PO Greater than or Equal to (%): 90 Wound(s) coccyx: Wound Type: Pressure Injury rt ear: Wound Type: Abrasion abd: Wound Type: Surgical Incision Therapies Weight Bearing: Weight bearing as tolerated Physical Therapy: Eval and Treat Occupational Therapy: Eval and Treat Problem/Diagnosis (1) Sepsis due to Streptococcus pneumoniae with acute hypoxic respiratory failure and septic shock: Status: Acute Code(s): A40.3 - Sepsis due to Streptococcus pneumoniae; R65.21 - Severe sepsis with septic shock; J96.01 - Acute respiratory failure with hypoxia (2) Acute and chronic respiratory failure with hypoxia: Status: Chronic Code(s): J96.21 - Acute and chronic respiratory failure with hypoxia (3) Recurrent pleural effusion: Status: Acute Code(s): J90 - Pleural effusion, not elsewhere classified Comment: Thoracentesis Right 2017, left 10/2020, 06/17/22 , 11/26/22, bronchoscopy 12/13 Plan #Acute on chronic hypoxic respiratory failure due to recurrent right pleural effusion and community acquired pneumonia as well as PE * s/p right thoracentesis on 11/26/2022 with removal of 525 mls of stephen-colored fluid. * Blood cultures were positive for strep pneumonia. She was initially intubated in the ICU. She was started on IV meropenem. * She is also s/p bronchoscopy cultures of which showed no growth. She has had a complicated hospital because. She was transferred to the floor but subsequently transferred back to the ICU due to concerns about worsening respiratory distress. * now on 6L of oxygen, up from 5L yesterday * will get a CXR * titrate oxygen to maintain sats >90% * breathing treatment with bronchodilators. * 2D echo showed severely dilated RV with moderate RV systolic dysfunction and pulmonary artery systolic pressure of 55-60mmhg. * #Pulmonary embolism * CTA of the chest showed PE with heart strain. It was a subsegmental PE in the right upper lobe * Currently on Eliquis. On Eliquis 5 mg twice daily due to her nosebleed and hematuria. * nose bleed and hematuria havent recurred * #Hematuria: * resolved. Eliquis has been resumed and it hasnt recurred. * #Hyponatremia * sodium is 128. May be due to fluid overload as her oxygen requirements is increasing * will diurese with IV lasix due to suspected fluid overload * trend sodium * #Moderate pulmonary hypertension: pulmonary artery systolic pressure is 55-60%, as above. Likely contributing to her respiratory failure. #CAD s/p stents: On aspirin as well as Lipitor and Plavix. #Hyperlipidemia: On statin #Paroxysmal A-fib: On amiodarone; on eliquis #Oropharyngeal dysphagia * Has PEG tube in place. Barium swallow showed moderate oropharyngeal disease patient with dysphagia retention. * Currently on a modified diet. Speech therapy and on tube feed for supplementation * #Hypothyroidism: On Synthroid #Severe protein calorie malnutrition: On tube feeds and a modified diet. Nutrition on board. #GERD: On PPI DVT prophylaxis:eliquis Disposition: awaiting placement. Allergies/Procedures Done in Hospital Allergies amoxicillin [From Augmentin] Allergy (Verified 11/19/22 18:15) Rash clavulanic acid [From Augmentin] Allergy (Verified 11/19/22 18:15) Rash doxycycline Allergy (Verified 11/19/22 18:15) Rash tiotropium Adverse Reaction (Unknown, Verified 11/19/22 18:15) PT UNSURE OF REACTION budesonide [From Symbicort] Adverse Reaction (Verified 11/19/22 18:15) high feeling bumetanide Adverse Reaction (Verified 11/19/22 18:15) PT UNSURE OF REACTION cefdinir Adverse Reaction (Verified 11/19/22 18:15) Bleeding pt reported red stool clindamycin Adverse Reaction (Verified 11/19/22 18:15) Abd cramps/diarrhea GI upset fluticasone [From Flonase] Adverse Reaction (Verified 11/19/22 18:15) HEADACHES formoterol [From Symbicort] Adverse Reaction (Verified 11/19/22 18:15) HIGH FEELING furosemide Adverse Reaction (Verified 11/19/22 13:12) NEEDS FOLLOW-UP pt reports dry mouth and weakness w/ many diuretics spironolactone Adverse Reaction (Verified 11/19/22 13:12) NEEDS FOLLOW-UP pt reports dry mouth and weakness w/ many diuretics umeclidinium Adverse Reaction (Verified 11/19/22 13:12) Shortness of breath SOB, myalgia Procedures: 2-D Echocardiogram Type of Care/Length of Stay Estimated LOS: Convalescent Care Less Than 30 days Type of Care Needed: Skilled Rehab Potential: Fair Prognosis: Fair Additional Orders/Day of Discharge Additional Orders: BIPAP setting 07/30; FiO2 35%, RR 12 Day of Discharge: 12/12/22 Dietary and Speech Recommendations Dietitian Recommendations/Changes: 1) Continue regular diet- texture/consistency per [employer] w/ ensure pudding or magic cup at meals for additional nutrition if consumed. 2) Will transition to bolus feeds via PEG- Jevity 1.5 180mL bolus 5x/day w/ 60mL H2O flush before and after each bolus to provide 1350 calories, 57 g protein, and 1284mL fluid/day. Would start w/ 60mL for first bolus, increase by 60mL as tolerated until goal volume is achieved. Discussed feeding schedule w/ pt and agreed to try feeds at 0600, 1000, 1400, 2000, and 2200. 3) Continue daily wts. Discharge Plan Admission Admit Date/Time: 11/20/22 12:09 Primary Reason for Your Visit: pulmonary embolism, right pleural effusion, pneumonia Attending Provider: Juana Cerda Primary Care Provider: Atul Garcia Consulting Providers: Atul Mcfadden ; Nomi Bunn ; Adrian Mcmanus ; Bernard Mcguire ; Darrin Meredith ; Navi Peterson ; Mal Iniguez ; Vicki Sahu DAY CARE PROVIDER Instructions Patient Instructions: ANTONY RN Thoracentesis Dc Discharge Orders/Prescriptions Prescriptions: New amiodarone 200 mg Tablet 200 mg PO DAILY Qty: 30 1RF Eliquis 5 mg Tablet 5 mg PO BID Qty: 60 2RF Continued potassium chloride 10 mEq tablet extended release 60 meq PO BID levothyroxine 88 mcg tablet 88 mcg PO MOTUWETHFRSA Rx Instructions: one and one half tablet wednesday montelukast 10 mg tablet 10 mg PO DAILY vitamin B complex [B Complex-Vitamin B12] Tablet 1 tab PO DAILY metoprolol tartrate 25 mg tablet 12.5 mg PO BID Qty: 120 3RF ipratropium-albuterol 20-100 mcg/actuation mist 1 puff inhalation Q4H Qty: 4 11RF alendronate 70 mg tablet PO omeprazole 20 MG capsule 40 mg PO DAILY Label Comments: ACID REFLUX albuterol sulfate 1 INHALER inhaler 2 puff INHALATION Q4H PRN PRN (Reason: Bronchodialation) Label Comments: SHORTNESS OF BREATH multivitamin Tablet 1 tab PO DAILY Label Comments: SUPPLEMENT lorazepam 0.5 MG tablet 0.5 mg PO BID PRN PRN (Reason: Anxiety) Label Comments: Anxiety ascorbic acid (vitamin C) 500 MG tablet,chewable 500 mg PO BIDCM Qty: 0 0RF Rx Instructions: Take with iron budesonide 180 mcg/actuation aerosol powdr breath activated 1 inh INHALATION BID levothyroxine 88 mcg tablet 132 mcg PO GEORGES Label Comments: TAKE 1 TABLET BY MOUTH ONCE DAILY EXCEPT WEDNESDAY TAKE 1&1/2 TABLET ON AN EMPTY STOMACH Mucinex 1,200 mg Tablet Extended Release 12hr 1,200 mg PO BID acetaminophen 500 mg Tablet 1,000 mg PO Q6H PRN (Reason: Pain) colchicine 0.6 mg tablet 0.6 mg PO DAILY Qty: 30 11RF spironolactone 25 mg tablet 25 mg PO DAILY Qty: 90 3RF atorvastatin 40 mg tablet 40 mg PO QHS Qty: 90 3RF aspirin 81 mg tablet,delayed release (DR/EC) 81 mg PO DAILY Qty: 90 3RF clopidogrel 75 mg tablet 75 mg PO DAILY Qty: 90 3RF bumetanide 1 mg tablet 1 mg PO DAILY Qty: 90 3RF Referrals / Follow Up: Carlos Pulido MD [Med Staff - Active Staff] - Within 1 Month (see to establish cardiology care for afib) Atul Garcia MD [Primary Care Provider] - Within 2 Weeks Disposition Disposition (needs filled in before D/C Order can be placed): [facility]
--- NOTE | 2022-12-12 12:41 | DS.PCM_ITS ---
Providers Date of Admission: 11/20/22 Date of Discharge: 12/12/22 Primary Care Physician: Dr. Atul Garcia MD Consultations 11/20/22 12:40 Consult: National Account Director / Pulmonary Medicine Routine Consulting Provider: Pulmonary Medicine bernice [place] Reason for Consult: hypoxia EMERGENT Consult: No Notified: Yes Date Notified: 11/20/22 Time Notified: 11:46 Method of Notification: Verbal 11/28/22 10:27 Consult: Gastroenterology Routine Consulting Provider: [facility] Reason for Consult: peg tube EMERGENT Consult: No Notified: Yes Date Notified: 11/28/22 Time Notified: 10:31 Method of Notification: Verbal Reason For Visit: LEFT PLEURAL EFFUSION, HYPOXIA Diagnosis Discharge Diagnosis (1) Sepsis due to Streptococcus pneumoniae with acute hypoxic respiratory failure and septic shock: Status: Acute Code(s): A40.3 - Sepsis due to Streptococcus pneumoniae; R65.21 - Severe sepsis with septic shock; J96.01 - Acute respiratory failure with hypoxia (2) Acute and chronic respiratory failure with hypoxia: Status: Chronic Code(s): J96.21 - Acute and chronic respiratory failure with hypoxia (3) Recurrent pleural effusion: Status: Acute Code(s): J90 - Pleural effusion, not elsewhere classified Plan #Acute on chronic hypoxic respiratory failure due to recurrent right pleural effusion and community acquired pneumonia as well as PE * s/p right thoracentesis on 11/26/2022 with removal of 525 mls of stephen-colored fluid. * Blood cultures were positive for strep pneumonia. She was initially intubated in the ICU. She was started on IV meropenem. * She is also s/p bronchoscopy cultures of which showed no growth. She has had a complicated hospital because. She was transferred to the floor but subsequently transferred back to the ICU due to concerns about worsening respiratory distress. * now on 6L of oxygen, up from 5L yesterday * will get a CXR * titrate oxygen to maintain sats >90% * breathing treatment with bronchodilators. * 2D echo showed severely dilated RV with moderate RV systolic dysfunction and pulmonary artery systolic pressure of 55-60mmhg. * #Pulmonary embolism * CTA of the chest showed PE with heart strain. It was a subsegmental PE in the right upper lobe * Currently on Eliquis. On Eliquis 5 mg twice daily due to her nosebleed and hematuria. * nose bleed and hematuria havent recurred * #Hematuria: * resolved. Eliquis has been resumed and it hasnt recurred. * #Hyponatremia * sodium is 128. May be due to fluid overload as her oxygen requirements is increasing * will diurese with IV lasix due to suspected fluid overload * trend sodium * #Moderate pulmonary hypertension: pulmonary artery systolic pressure is 55-60%, as above. Likely contributing to her respiratory failure. #CAD s/p stents: On aspirin as well as Lipitor and Plavix. #Hyperlipidemia: On statin #Paroxysmal A-fib: On amiodarone; on eliquis #Oropharyngeal dysphagia * Has PEG tube in place. Barium swallow showed moderate oropharyngeal disease patient with dysphagia retention. * Currently on a modified diet. Speech therapy and on tube feed for supplementation * #Hypothyroidism: On Synthroid #Severe protein calorie malnutrition: On tube feeds and a modified diet. Nutrition on board. #GERD: On PPI DVT prophylaxis:eliquis Disposition: awaiting placement. Medications at Discharge Home Medications albuterol sulfate 90 mcg/actuation aerosol inhaler 2 puff inhalation Q4H PRN PRN Bronchodialation 09/07/16 omeprazole 20 mg capsule,delayed release 40 mg PO DAILY GERD 09/07/16 lorazepam 0.5 mg tablet 0.5 mg PO BID PRN PRN Anxiety 09/26/16 ascorbic acid (vitamin C) 500 mg chewable tablet 500 mg PO BIDCM supplement ##0 06/20/20 budesonide 180 mcg/actuation breath activated powder inhaler 1 inh inhalation BID COPD 02/11/21 montelukast 10 mg tablet 10 mg PO DAILY 02/11/21 vitamin B complex (B Complex-Vitamin B12 tablet) 1 tab PO DAILY 02/11/21 colchicine 0.6 mg tablet 0.6 mg PO DAILY gout #30 tabs 01/14/22 levothyroxine 88 mcg tablet 88 mcg PO MOTUWETHFRSA 01/20/22 metoprolol tartrate 25 mg tablet 12.5 mg PO BID #120 tabs 01/20/22 potassium chloride 10 mEq tablet,extended release 60 meq PO BID 01/20/22 spironolactone 25 mg tablet 25 mg PO DAILY #90 tabs 03/23/22 acetaminophen 500 mg tablet 1,000 mg PO Q6H PRN Pain 06/17/22 guaifenesin 1,200 mg tablet, extended release 12 hr (Mucinex) 1,200 mg PO BID CONGESTION 06/17/22 levothyroxine 88 mcg tablet 132 mcg PO GEORGES 06/17/22 ipratropium 20 mcg-albuterol 100 mcg/actuation mist for inhalation 1 puff inhalation Q4H #4 grams 07/08/22 multivitamin 1 tab PO DAILY supplement 07/08/22 aspirin 81 mg tablet,delayed release 81 mg PO DAILY #90 tabs 09/01/22 atorvastatin 40 mg tablet 40 mg PO QHS #90 tabs 09/01/22 clopidogrel 75 mg tablet 75 mg PO DAILY #90 tabs 09/01/22 bumetanide 1 mg tablet 1 mg PO DAILY water pill #90 tabs 09/21/22 alendronate 70 mg tablet tablet PO 10/01/22 amiodarone 200 mg tablet 200 mg PO DAILY #30 tabs 12/12/22 apixaban 5 mg tablet (Eliquis) 5 mg PO BID #60 tabs 12/12/22 Hospital Course Operations None Procedures 2-D Echocardiogram and Thoracentesis Summary of Care Provided Minutes Spent on Discharge: 55 Hospital Course: Patient is a 67-year-old female with a past medical history as outlined was admitted through the ED on 11/19/2022 with a complaint of shortness of breath. She had had a left sided thoracentesis on the day prior to admission on account of her chronic left pleural effusion. She came to the emergency room on account of work standing shortness of breath. Chest x-ray showed increasing left pleural effusion with left basilar atelectasis and/or infiltration. She had had a chest ultrasound on the day of admission which showed a multiloculated collection at the left lung base. Plan was initially to transfer patient to a tertiary center for further treatment of the loculated left pleural effusion. However there was no bed at the tertiary facility so she was placed on the wait list and admitted. Pulmonology was consulted. She was admitted and managed for acute on chronic hypoxic respiratory failure due to recurrent pleural effusion. She was subsequently sent to the ICU as she could not protect her airway and failed BiPAP treatment. She was intubated also started on broad-spectrum antib iotics. She also had a bronchoscopy during the admission which showed thin secretions which were easily suctioned. During the procedure patient had a brief episode of A-fib. Subsequently developed A-fib with RVR and procedure was terminated before left lower lobe washout of biopsies could be obtained. She was also treated for pneumonia. Decision was made to cancel her transfer to tertiary facility. She was placed on amiodarone and her low-dose beta-guzman was started. Patient also developed septic shock due to pneumonia and required Levophed. She was placed on heparin drip for A-fib. Subsequent CTA done showed subsegmental PE with right ventricular systolic dysfunction and pulmonary hypertension. Of note, patient did have a chronic history of underlying bronchiectasis and recurrent pleural effusion and had had a VATS and pleurodesis on the right side and had had a Pleurx catheter placed on the left side in 2019. She had apparently declined further work-up by thoracic surgery on outpatient basis. Patient had a long protracted hospital course which was complicated by dysphagia. Gastroenterology was consulted and she had a PEG tube inserted. She was started on tube feeds. She was weaned down to 3 L of oxygen. Of note 2D echo showed severely dilated right ventricle with moderate right ventricular systolic dysfunction and pulmonary artery systolic pressure of 55 to 60 mmHg. Hospital course was complicated by hematuria while she was on Eliquis. Eliquis was briefly held. When it was resumed, hematuria did not with care. She was discharged to long-term facility on 12/12/2022. She was discharged on p.o. amiodarone, metoprolol and Eliquis. She is follow-up with her primary care doctor and follow-up with pulmonology within 1 to 2 weeks. Patient was seen and examined prior to discharge. Had no complaints and had an uneventful night. Review of systems otherwise negative. Labs and vitals reviewed. Home medication reviewed and reconciled. Physical Exam Const alert, oriented x3 and no apparent distress Constitutional Narrative: Very frail General Appearance: cooperative and comfortable HEENT normocephalic, head/scalp atraumatic and moist oral mucous membranes Eyes PERRL and EOMs intact bilaterally Neck no lymphadenopathy and supple General: trachea midline Lymph Lymphatic: no lymphadenopathy noted Resp Resp Narrative: Mildly diminished breath sounds bibasally. No wheezes or crackles. On 3L of oxygen. Cardio regular rate, regular rhythm, S1 normal heart sound, S2 normal heart sound and no murmurs GI normal to inspection, nondistended, normoactive bowel sounds, soft to palpation, non-tender and non-distended GI Narrative: PEG tube in situ Extremity normal to inspection, full ROM, normal capillary refill and no clubbing, cyanosis or edema Skin no rashes or lesions noted General Skin Exam: no breakdown Neuro oriented x3, CN's II-XII intact bilaterally, moves all extremities, no focal motor deficits and no sensory deficits noted Sensorium / Orientation: awake and alert Psych thought process normal and cooperative Appearance: appropriate Medical Records Data Medical Nutrition Assessment Dietitian: Malnutrition Criteria Met Start: 11/20/22 11:25 Freq: Status: Active Protocol: Document 12/09/22 14:47 AG (Rec: 12/09/22 14:47 AG [id number]) Nutrition Malnutrition Evidence of Malnutrition Exists Yes Malnutrition (severe): Chronic Evidenced By Suboptimal Energy Intake ( Severe),Weight Loss (Severe), Physical Changes (Moderate) Intake Problem Inadequate Oral Intake Etiology related to chewing/swallowing difficulty Signs/Symptoms as evidenced by altered consistency diet and estimated PO intake meeting <50% of estimated energy needs Status Active Problem Clinical Problem Chronic Disease or Condition Related Malnutrition Etiology Severe protein-calorie malnutrition in the context of chronic disease related to inadequate oral/energy intake Signs/Symptoms as evidenced by estimated PO intake meeting <50% of estimated nutritional needs x > 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, muscle/fat wasting visible in face, upper/lower extremities and torso and weight loss ~9% x less than 6 months with fluid likely masking additional wt loss Status Active Problem Recommendation Dietitian Recommendations/Changes 1) Continue regular diet- texture/consistency per INFANT CHILDCARE PROVIDER w/ ensure pudding or magic cup at meals for additional nutrition if consumed. 2) Will transition to bolus feeds via PEG- Jevity 1.5 180mL bolus 5x/day w/ 60mL H2O flush before and after each bolus to provide 1350 calories , 57 g protein, and 1284mL fluid/day. Would start w/ 60mL for first bolus, increase by 60mL as tolerated until goal volume is achieved. Discussed feeding schedule w/ pt and agreed to try feeds at 0600, 1000, 1400, 2000, and 2200. 3) Continue daily wts. Weight / BMI Weight Weight: 87 lb 11.904 oz Body Mass Index (BMI) 18.4 ABG / Lab / Microbiology Data Result Diagrams: 12/12/22 06:08 12/12/22 06:08 Laboratory: Laboratory Results - last 24 hr 12/12/22 06:08: WBC 11.4 H, RBC 3.56 L, Hgb 8.7 L, Hct 29.1 L, MCV 81.7, MCH 24.4 L, MCHC 29.9 L, RDW Std Deviation 89.2 H, RDW Coeff of Angie 32.0 H, Plt Count 368, MPV 11.4, Immature Gran % (Auto) 0.700, Neut % (Auto) 91.9 H, Lymph % (Auto) 2.9 L, [place]ilion % (Auto) 3.2, Eos % (Auto) 1.2, Baso % (Auto) 0.1, Absolute Neuts (auto) 10.5 H, Absolute Lymphs (auto) 0.33 L, Nucleated RBC % 0, Differential Comment SCANNED, Hypochromasia 1+, Anisocytosis 2+, Microcytosis 1+, Macrocytosis 1+ 12/12/22 06:08: Sodium 129 L, Potassium 3.2 L, Chloride 92 L, Carbon Dioxide 33.0 H, Anion Gap 4 L, BUN 35 H, Creatinine 0.55, Estim Creat Clear Calc 64.07, Est GFR (MDRD) Af Amer 142, Est GFR (MDRD) Non-Af 117, BUN/Creatinine Ratio 63.5 H, Glucose 180 H, Calcium 8.4 L Microbiology: Microbiology 11/26/22 13:52 Fluid - Thoracentesis Fluid Gram Stain - Final 11/26/22 13:52 Fluid - Thoracentesis Fluid Body Fluid Culture - Final No growth aerobically. 11/26/22 13:52 Fluid - Thoracentesis Fluid Anaerobic Culture - Final No anaerobic bacteria isolated. 11/29/22 10:55 Stool C. difficile DNA Amplification - Final 11/22/22 12:40 Wash - Bronchial Wash Gram Stain - Final 11/22/22 12:40 Wash - Bronchial Wash Respiratory Culture - Final Culture exhibits no growth. 11/22/22 12:40 Wash - Bronchial Wash Gram Stain - Final 11/22/22 12:40 Wash - Bronchial Wash Respiratory Culture - Final Culture exhibits no growth. 11/20/22 15:55 Sputum, Expectorated/Coughed Gram Stain - Final 11/20/22 15:55 Sputum, Expectorated/Coughed Respiratory Culture - Final Streptococcus pneumoniae 11/21/22 16:35 Sputum, Induced/Lukens Gram Stain - Final 11/21/22 16:35 Sputum, Induced/Lukens Respiratory Culture - Final Presumptive C albicans 11/20/22 14:00 Blood Culture (Wb) - Anticubital Left Bacteria Detection (PCR) - Final Streptococcus pneumoniae 11/20/22 14:00 Blood Culture (Wb) - Anticubital Left Blood Culture - Final Alpha hemolytic organism 11/20/22 13:55 Blood Culture (Wb) - Anticubital Right Blood Culture - Final Streptococcus pneumoniae 11/20/22 13:50 Urine Catheter - Catheter Urine Culture - Final Culture exhibits no growth. 11/20/22 14:57 Mucosa - Nasopharyngeal Influenza Types A,B Direct FA (SAMANTHA) - Final 11/20/22 13:50 Urine Catheter - Catheter Legionella Antigen - Final 11/20/22 13:50 Urine Catheter - Catheter Streptococcus pneumoniae Antigen (M - Final D/C Instructions Discharge Diet: Low fat / Low cholesterol and - Discharge Activity: Return to Normal Activity Meaningful Use Info Meaningful Use Diagnoses (Choose all that apply): None applicable Discharge Plan Admission Admit Date/Time: 11/20/22 12:09 Primary Reason for Your Visit: pulmonary embolism, right pleural effusion, pneumonia Attending Provider: Juana Cerda Primary Care Provider: Atul Garcia Consulting Providers: Atul Mcfadden ; Nomi Bunn ; Adrian Mcmanus ; Bernard Mcguire ; Darrin Meredith ; Navi Peterson ; Mal Iniguez ; Vicki Sahu CELL PHONE REPAIR TECHNICIAN Instructions Patient Instructions: RAD RN Thoracentesis Dc Discharge Orders/Prescriptions Prescriptions: New amiodarone 200 mg Tablet 200 mg PO DAILY Qty: 30 1RF Eliquis 5 mg Tablet 5 mg PO BID Qty: 60 2RF Continued potassium chloride 10 mEq tablet extended release 60 meq PO BID levothyroxine 88 mcg tablet 88 mcg PO MOTUWETHFRSA Rx Instructions: one and one half tablet wednesday montelukast 10 mg tablet 10 mg PO DAILY vitamin B complex [B Complex-Vitamin B12] Tablet 1 tab PO DAILY metoprolol tartrate 25 mg tablet 12.5 mg PO BID Qty: 120 3RF ipratropium-albuterol 20-100 mcg/actuation mist 1 puff inhalation Q4H Qty: 4 11RF alendronate 70 mg tablet PO omeprazole 20 MG capsule 40 mg PO DAILY Label Comments: ACID REFLUX albuterol sulfate 1 INHALER inhaler 2 puff INHALATION Q4H PRN PRN (Reason: Bronchodialation) Label Comments: SHORTNESS OF BREATH multivitamin Tablet 1 tab PO DAILY Label Comments: SUPPLEMENT lorazepam 0.5 MG tablet 0.5 mg PO BID PRN PRN (Reason: Anxiety) Label Comments: Anxiety ascorbic acid (vitamin C) 500 MG tablet,chewable 500 mg PO BIDCM Qty: 0 0RF Rx Instructions: Take with iron budesonide 180 mcg/actuation aerosol powdr breath activated 1 inh INHALATION BID levothyroxine 88 mcg tablet 132 mcg PO GEORGES Label Comments: TAKE 1 TABLET BY MOUTH ONCE DAILY EXCEPT WEDNESDAY TAKE 1&1/2 TABLET ON AN EMPTY STOMACH Mucinex 1,200 mg Tablet Extended Release 12hr 1,200 mg PO BID acetaminophen 500 mg Tablet 1,000 mg PO Q6H PRN (Reason: Pain) colchicine 0.6 mg tablet 0.6 mg PO DAILY Qty: 30 11RF spironolactone 25 mg tablet 25 mg PO DAILY Qty: 90 3RF atorvastatin 40 mg tablet 40 mg PO QHS Qty: 90 3RF aspirin 81 mg tablet,delayed release (DR/EC) 81 mg PO DAILY Qty: 90 3RF clopidogrel 75 mg tablet 75 mg PO DAILY Qty: 90 3RF bumetanide 1 mg tablet 1 mg PO DAILY Qty: 90 3RF Referrals / Follow Up: Carlos Pulido MD [Med Staff - Active Staff] - Within 1 Month (see to establish cardiology care for afib) Atul Garcia MD [Primary Care Provider] - Within 2 Weeks Disposition Disposition (needs filled in before D/C Order can be placed): Long-Term Facility
== END 2022-12-12 16:38 | disposition skilled nursing facility (03) | DRG 870 ==
LOC: ED 17:36 → MS3 17:47 → ICU 11-20 12:31 → PCU 12-01 19:45 → ICU 12-03 10:33 → PCU 12-04 16:24
PROVIDERS: Family Medicine; Hospitalist; Internal Medicine; Internal Medicine Critical Care Medicine; Internal Medicine Gastroenterology; Admitting Provider Internal Medicine; Emergency Provider Emergency Medicine; PCP Family Medicine; Visit Provider Student in an Organized Health Care Education/Training Program
PROC: 0BJ08ZZ Inspection of Tracheobronchial Tree, Via Natural or Artificial Opening Endoscopic (ICD-10-PCS; CPT 31622; principal; 2022-11-22 12:00)
PROC: 0DJ08ZZ Inspection of Upper Intestinal Tract, Via Natural or Artificial Opening Endoscopic (ICD-10-PCS; CPT 43235; principal; 2022-11-30 11:25)
DX: A40.3 Sepsis due to Streptococcus pneumoniae (principal); J96.21 Acute and chronic respiratory failure with hypoxia; I26.09 Other pulmonary embolism with acute cor pulmonale; J69.0 Pneumonitis due to inhalation of food and vomit; J15.4 Pneumonia due to other streptococci; R65.21 Severe sepsis with septic shock; E43 Unspecified severe protein-calorie malnutrition; E87.1 Hypo-osmolality and hyponatremia; R64 Cachexia; J47.0 Bronchiectasis with acute lower respiratory infection; I50.32 Chronic diastolic (congestive) heart failure; J98.11 Atelectasis; J90 Pleural effusion, not elsewhere classified; I27.20 Pulmonary hypertension, unspecified; I11.0 Hypertensive heart disease with heart failure; I48.0 Paroxysmal atrial fibrillation; J43.9 Emphysema, unspecified; I48.91 Unspecified atrial fibrillation; Z93.1 Gastrostomy status; I25.10 Atherosclerotic heart disease of native coronary artery without angina pectoris; E78.5 Hyperlipidemia, unspecified; E03.9 Hypothyroidism, unspecified; K21.9 Gastro-esophageal reflux disease without esophagitis; D64.9 Anemia, unspecified; Z87.891 Personal history of nicotine dependence; Z79.51 Long term (current) use of inhaled steroids; R07.81 Pleurodynia; Z79.899 Other long term (current) drug therapy; Z95.5 Presence of coronary angioplasty implant and graft; Z79.01 Long term (current) use of anticoagulants; B95.5 Unspecified streptococcus as the cause of diseases classified elsewhere; Z80.0 Family history of malignant neoplasm of digestive organs; R13.12 Dysphagia, oropharyngeal phase; Z68.20 Body mass index [BMI] 20.0-20.9, adult
CPT/HCPCS: 31500; 31720; 32555; 36415; 36569; 36600; 36620; 71045; 71046; 71275; 74230; 76604; 76705; 80048; 80053; 80061; 82550; 82803; 82945; 82977; 83605; 83615; 83735; 83880; 84100; 84156; 84157; 84443; 84478; 84484; 85025; 85610; 85730; 86225; 86235; 86480; 87015; 87040; 87070; 87075; 87077; 87086; 87102; 87116; 87149; 87186; 87205; 87206; 87426; 87449; 87493; 87804; 88108; 88305; 88312; 88313; 88341; 88342; 89050; 92526; 92610; 92611; 93005; 93308; 94002; 94003; 94640; 94667; 94668; 94762; 97110; 97162; 97166; 97530; 97535; 97802; 97803; 99252; 99285; J2185; J7030; J7040; J7050; Q9967; A4216; G0463; J1940; J2405; J3010; J7799

== ENCOUNTER 2022-12-18 08:50 | Inpatient (IN) | payer BC, MEDICARE, SELFPAY ==
[2022-12-18] VITALS (45 sets, daily range): BP systolic 89–113; BP diastolic 59–75; PULSE 91–106; RESP 12–45; TEMP 36.2–37.5; O2SAT 91–100; BMI 19.1; BMI 18.9
--- NOTE | 2022-12-18 09:00 | EKG12_ITS ---
Test Reason : SOB Blood Pressure : / mmHG Vent. Rate : 103 BPM Atrial Rate : 103 BPM P-R Int : 158 ms QRS Dur : 082 ms QT Int : 344 ms P-R-T Axes : 046 032 031 degrees QTc Int : 450 ms Sinus tachycardia Otherwise normal ECG Confirmed by JESSICA WELCH, SYDNEY ([id number]), purchasing expeditor LIV HOPKINS ([id number]) on 12/21/2022 11:26:18 AM Referred By: ELIZA Confirmed By:YIMI LOPEZ MD
--- NOTE | 2022-12-18 09:05 | ED.VIS.DYS ---
HPI History of Present Illness Chief Complaint: Shortness of Breath Informant: patient Narrative Narrative: Patient is a 67-year-old's frail and ill female with history of chronic respiratory failure with hypoxia, atrial fibrillation (on amiodarone and Eliquis), COPD, coronary artery disease and recent diagnosis of pneumonia on chest x-ray at her nursing facility. Patient is a resident of [facility]. She was diagnosed with pneumonia on Wednesday (3 days ago) and was started on Levaquin. This morning she was found to be 70% on 5 L and was placed on her BiPAP. She went up to 86%. EMS was called and she was placed on a nonrebreather with improvement of her O2 saturation. Patient states she has been feeling more short of breath since diagnosed with pneumonia. States she did not receive her morning medications. Has had a junky cough. No other complaints at this time. Chart review shows that patient was admitted from 11/20 to 12/12 for septic shock due to Streptococcus pneumonia with acute hypoxic respiratory failure. She underwent a right thoracentesis on 11/26/2022, was diagnosed with a PE and started on Eliquis and had a PEG tube placed during this hospitalization. She was discharged on 3 L of oxygen. [facility] Medical History Acute and chronic respiratory failure with hypoxia Alcohol abuse Angioedema Anxiety Atherosclerotic heart disease of [place] coronary artery without angina pectoris Bilateral pleural effusion Bronchiectasis, non-tuberculous Cachexia Congestive heart failure (CHF) Contusion of right lower leg, initial encounter COPD (chronic obstructive pulmonary disease) Edema of right lower extremity Elevated transaminase level Former smoker GERD (gastroesophageal reflux disease) History of non-ST elevation myocardial infarction (NSTEMI) (06/18/20) Hypothyroidism Iatrogenic pneumothorax (06/17/22) Iron deficiency anemia Laceration without foreign body, right lower leg, initial encounter Leg wound, right Myocardial infarct Non-healing ulcer of ankle with fat layer exposed Pericardial effusion Pneumothorax Recurrent pleural effusion Restrictive pericarditis Secondary pulmonary arterial hypertension Sepsis due to Streptococcus pneumoniae with acute hypoxic respiratory failure and septic shock Severe malnutrition Syncope (06/17/22) Ulcer of right lower extremity with fat layer exposed Home Medications albuterol sulfate 90 mcg/actuation aerosol inhaler 2 puff inhalation Q4H PRN PRN Bronchodialation 09/07/16 [History Last Taken 10/26/22] omeprazole 20 mg capsule,delayed release 40 mg PO DAILY GERD 09/07/16 [History Last Taken 06/17/22] lorazepam 0.5 mg tablet 0.5 mg PO BID PRN PRN Anxiety 09/26/16 [History Last Taken 06/17/22] ascorbic acid (vitamin C) 500 mg chewable tablet 500 mg PO BIDCM supplement ##0 06/20/20 [Rx Last Taken 06/16/22] budesonide 180 mcg/actuation breath activated powder inhaler 1 inh inhalation BID COPD 02/11/21 [History Last Taken 06/17/22] montelukast 10 mg tablet 10 mg PO DAILY 02/11/21 [History Last Taken 06/16/22] vitamin B complex (B Complex-Vitamin B12 tablet) 1 tab PO DAILY 02/11/21 [History Last Taken 06/17/22] colchicine 0.6 mg tablet 0.6 mg PO DAILY gout #30 tabs 01/14/22 [Rx Last Taken 06/16/22] levothyroxine 88 mcg tablet 88 mcg PO MOTUWETHFRSA 01/20/22 [History Last Taken 06/17/22] metoprolol tartrate 25 mg tablet 12.5 mg PO BID #120 tabs 01/20/22 [Rx Last Taken 06/17/22] potassium chloride 10 mEq tablet,extended release 60 meq PO BID 01/20/22 [History Last Taken 06/17/22] spironolactone 25 mg tablet 25 mg PO DAILY #90 tabs 03/23/22 [Rx Last Taken 06/16/22] acetaminophen 500 mg tablet 1,000 mg PO Q6H PRN Pain 06/17/22 [History Last Taken 06/16/22] guaifenesin 1,200 mg tablet, extended release 12 hr (Mucinex) 1,200 mg PO BID CONGESTION 06/17/22 [History Last Taken 06/17/22] levothyroxine 88 mcg tablet 132 mcg PO GEORGES 06/17/22 [History Last Taken 06/14/22] ipratropium 20 mcg-albuterol 100 mcg/actuation mist for inhalation 1 puff inhalation Q4H #4 grams 07/08/22 [Rx Last Taken Unknown] multivitamin 1 tab PO DAILY supplement 07/08/22 [History Last Taken Unknown] aspirin 81 mg tablet,delayed release 81 mg PO DAILY #90 tabs 09/01/22 [Rx Last Taken Unknown] atorvastatin 40 mg tablet 40 mg PO QHS #90 tabs 09/01/22 [Rx Last Taken Unknown] clopidogrel 75 mg tablet 75 mg PO DAILY #90 tabs 09/01/22 [Rx Last Taken Unknown] bumetanide 1 mg tablet 1 mg PO DAILY water pill #90 tabs 09/21/22 [Rx Last Taken Unknown] alendronate 70 mg tablet tablet PO 10/01/22 [History Last Taken 11/05/22 06:00] amiodarone 200 mg tablet 200 mg PO DAILY #30 tabs 12/12/22 [Rx Last Taken Unknown] apixaban 5 mg tablet (Eliquis) 5 mg PO BID #60 tabs 12/12/22 [Rx Last Taken Unknown] Allergy/AdvReac Type Severity Reaction Status Date / Time amoxicillin [From Augmentin] Allergy Rash Verified 11/19/22 18:15 clavulanic acid Allergy Rash Verified 11/19/22 18:15 [From Augmentin] doxycycline Allergy Rash Verified 11/19/22 18:15 tiotropium AdvReac Unknown PT UNSURE Verified 11/19/22 18:15 OF REACTION budesonide [From Symbicort] AdvReac high Verified 11/19/22 18:15 feeling bumetanide AdvReac PT UNSURE Verified 11/19/22 18:15 OF REACTION cefdinir AdvReac Bleeding Verified 11/19/22 18:15 clindamycin AdvReac Abd Verified 11/19/22 18:15 cramps/diarrhea fluticasone [From Flonase] AdvReac HEADACHES Verified 11/19/22 18:15 formoterol [From Symbicort] AdvReac HIGH Verified 11/19/22 18:15 FEELING furosemide AdvReac NEEDS Verified 11/19/22 13:12 FOLLOW-UP spironolactone AdvReac NEEDS Verified 11/19/22 13:12 FOLLOW-UP umeclidinium AdvReac Shortness Verified 11/19/22 13:12 of breath Family History Mother Colon cancer Father Heart disease Surgical History History of coronary artery stent placement (06/18/20) History of right and left heart catheterization (05/01/20) History of thoracentesis (06/17/22) Social History Smoking Status: Former smoker alcohol intake: current alcohol intake frequency: holidays/special occasions only substance use type: does not use caffeine: Yes Type: coffee Number of servings: 1 ROS ROS ED Constitutional Constitutional ED: Denies chills or fever(s) ENT ENT ED: Denies sore throat Cardiovascular Cardiovascular: Denies chest pain Respiratory/Chest Respiratory/Chest: Reports cough and dyspnea Gastrointestinal Gastrointestinal: Denies nausea or vomiting Musculoskeletal Musculoskeletal: Denies arthralgias or myalgias Integumentary Reports other Details: Pressure wound to the buttocks Neurologic Neurologic: Denies headache(s) or weakness Hematologic/Lymphatic Hematologic/Lymphatic: Reports easy bleeding and easy bruising EXAM Physical Exam Const Vital Signs: 12/18/22 08:52 12/18/22 08:56 12/18/22 08:58 Temperature 99.5 F H 99.5 F H Temperature Source Temporal Temporal Pulse Rate 103 H 103 H Respiratory Rate 29 H 33 H Respiratory Effort Short of Breath Accessory Muscle Use Respiratory Depth Shallow Respiratory Pattern Tachypnea Blood Pressure 113/72 113/72 Blood Pressure Mean 85 85 Pulse Ox 100 100 Oxygen Delivery Method Non-Rebreather Non-Rebreather Non-Rebreather Oxygen Flow Rate (L/min) Fraction of Inspired Oxygen (FIO2) 12/18/22 09:15 12/18/22 09:15 12/18/22 09:16 Temperature Temperature Source Pulse Rate 98 Respiratory Rate 36 H Respiratory Effort Respiratory Depth Respiratory Pattern Blood Pressure Blood Pressure Mean Pulse Ox 98 94 Oxygen Delivery Method Non-Rebreather Nasal Cannula Oxygen Flow Rate (L/min) 10 6 Fraction of Inspired Oxygen (FIO2) 12/18/22 09:56 12/18/22 09:02 12/18/22 09:10 Temperature 99.1 F Temperature Source Temporal Pulse Rate 96 104 H 104 H Respiratory Rate 31 H 30 H 31 H Respiratory Effort Respiratory Depth Respiratory Pattern Blood Pressure 97/68 Blood Pressure Mean 77 Pulse Ox 94 99 98 Oxygen Delivery Method Bi-pap Oxygen Flow Rate (L/min) Fraction of Inspired Oxygen (FIO2) 12/18/22 09:15 12/18/22 09:20 12/18/22 09:30 Temperature Temperature Source Pulse Rate 105 H 103 H Respiratory Rate 32 H 29 H Respiratory Effort Respiratory Depth Respiratory Pattern Blood Pressure 107/72 102/67 Blood Pressure Mean 84 79 Pulse Ox 95 96 Oxygen Delivery Method Oxygen Flow Rate (L/min) Fraction of Inspired Oxygen (FIO2) 12/18/22 09:30 12/18/22 09:40 12/18/22 09:45 Temperature Temperature Source Pulse Rate 104 H 98 98 Respiratory Rate 40 H 34 H 37 H Respiratory Effort Respiratory Depth Respiratory Pattern Blood Pressure 103/73 Blood Pressure Mean 83 Pulse Ox 94 96 94 Oxygen Delivery Method Oxygen Flow Rate (L/min) Fraction of Inspired Oxygen (FIO2) 12/18/22 09:50 12/18/22 10:00 12/18/22 10:00 Temperature Temperature Source Pulse Rate 98 98 98 Respiratory Rate 35 H 38 H 38 H Respiratory Effort Respiratory Depth Respiratory Pattern Blood Pressure 100/68 Blood Pressure Mean 78 Pulse Ox 95 95 95 Oxygen Delivery Method Oxygen Flow Rate (L/min) Fraction of Inspired Oxygen (FIO2) 12/18/22 10:10 12/18/22 10:15 12/18/22 09:40 Temperature Temperature Source Pulse Rate 97 97 100 Respiratory Rate 35 H 37 H 38 H Respiratory Effort Respiratory Depth Respiratory Pattern Tachypnea Blood Pressure 97/68 Blood Pressure Mean 78 Pulse Ox 95 94 95 Oxygen Delivery Method Oxygen Flow Rate (L/min) Fraction of Inspired Oxygen (FIO2) 30 12/18/22 10:05 12/18/22 10:15 12/18/22 10:20 Temperature Temperature Source Pulse Rate 97 96 Respiratory Rate 37 H 30 H Respiratory Effort Respiratory Depth Respiratory Pattern Blood Pressure Blood Pressure Mean Pulse Ox 94 95 Oxygen Delivery Method Oxygen Flow Rate (L/min) Fraction of Inspired Oxygen (FIO2) 50 12/18/22 10:30 12/18/22 10:30 Temperature Temperature Source Pulse Rate Respiratory Rate 42 H 42 H Respiratory Effort Respiratory Depth Respiratory Pattern Blood Pressure 92/63 Blood Pressure Mean 73 Pulse Ox 100 100 Oxygen Delivery Method Oxygen Flow Rate (L/min) Fraction of Inspired Oxygen (FIO2) Positive cachectic General Appearance ED: cachectic Nutritional Appearance: cachectic HEENT Reports dry mucous membranes atraumatic Mouth ED: Yes dry mucous membranes Mouth: dry mucous membranes Eyes PERRL and EOMs intact bilaterally Neck supple Neck Narrative: Positive JVD Resp Resp Narrative: Tachypneic, increased work of breathing. Rhonchi throughout. Significantly diminished breath sounds at the left base Cardio no murmurs Rate: tachycardic GI non-tender and non-distended GI Narrative: PEG tube in place Extremity Extremity Narrative: Pitting edema of the right foot compared to the left. Neuro oriented x3 Sensorium / Orientation: alert Motor Exam: general weakness Psych mental status grossly normal Skin Rashes: no rashes MDM MDM MDM Narrative Medical decision making narrative: Patient evaluated for acute on chronic hypoxic respiratory failure. Patient is quite tachypneic. She is initially on a nonrebreather upon arrival and is 99%. She is weaned down to high flow nasal cannula however she continues to be tachypneic. She has rhonchorous breath sounds with diminished at the left base. She does have some asymmetric edema of her right lower extremity. Clinically she appears dehydrated with very dry mucosal membranes. I am more concerned at this time for an infectious etiology. Her blood pressure is soft. She has a low-grade temperature of 99.5. Low suspicion for DVT/PE as she is on Eliquis. She is a mild leukocytosis of 12.9 and a downtrending anemia with a hemoglobin of 7.5. Patient's BUN is mildly elevated. Occults will be sent. Her lactate is normal at 1.1. BNP is mildly elevated at 200 which is up from her most recent 1 however on admission she had a significantly elevated BNP last month. Patient does not have any significant electrolyte abnormalities. Patient does seem improved after aerosols and BiPAP. She is started on broad-spectrum antibiotics with vancomycin and meropenem given antibiotic allergies and recent hospitalization. Cultures are obtained. Type and screen is ordered. Patient will be admitted to the ICU. Case discussed with physician, Dr. Bunn. Lab Data Labs: Laboratory Results - last 24 hr 12/18/22 12/18/22 12/18/22 09:10 09:10 09:10 WBC 12.9 H RBC 3.05 L Hgb 7.5 L Hct 25.7 L MCV 84.3 MCH 24.6 L MCHC 29.2 L RDW Std Deviation Not Reportable RDW Coeff of Angie Not Reportable Plt Count 402 MPV 10.6 Immature Gran % (Auto) 1.200 H Neut % (Auto) 90.4 H Lymph % (Auto) 1.1 L [place] % (Auto) 6.5 Eos % (Auto) 0.6 Baso % (Auto) 0.2 Absolute Neuts (auto) 11.6 H Absolute Lymphs (auto) 0.14 L Nucleated RBC % 0 Hypochromasia 2+ Anisocytosis 2+ Sodium Potassium Chloride Carbon Dioxide Anion Gap BUN Creatinine Estim Creat Clear Calc Est GFR (MDRD) Af Amer Est GFR (MDRD) Non-Af BUN/Creatinine Ratio Glucose Lactic Acid 1.1 Calcium Total Bilirubin AST ALT Alkaline Phosphatase Troponin I High Sens 8 B-Natriuretic Peptide Total Protein Albumin Globulin Albumin/Globulin Ratio Blood Type Antibody Screen 12/18/22 12/18/22 12/18/22 09:10 09:10 10:10 WBC RBC Hgb Hct MCV MCH MCHC RDW Std Deviation RDW Coeff of Angie Plt Count MPV Immature Gran % (Auto) Neut % (Auto) Lymph % (Auto) [place] % (Auto) Eos % (Auto) Baso % (Auto) Absolute Neuts (auto) Absolute Lymphs (auto) Nucleated RBC % Hypochromasia Anisocytosis Sodium 136 Potassium 5.1 Chloride 109 H Carbon Dioxide 26.0 Anion Gap 1 L BUN 29 H Creatinine 0.47 L Estim Creat Clear Calc 77.62 Est GFR (MDRD) Af Amer 169 Est GFR (MDRD) Non-Af 140 BUN/Creatinine Ratio 61.3 H Glucose 138 H Lactic Acid Calcium 7.9 L Total Bilirubin 0.20 AST 59 H ALT 90 H Alkaline Phosphatase 100 Troponin I High Sens B-Natriuretic Peptide 200.1 H Total Protein 5.9 L Albumin 1.9 L Globulin 4.0 Albumin/Globulin Ratio 0.5 L Blood Type A POSITIVE Antibody Screen NEGATIVE ABG Data ABG results: ABG 12/18/22 10:17 Specimen Type ART Sample Site L Brach pH 7.39 Bicarbonate Actual 24.3 Total CO2 26 Base Excess -1 O2 Saturation 92 L O2 % 30 ABG pCO2 40.2 ABG pO2 65 L Finesse Test Positive Respiration Rate 14 O2 Delivery Device BiPAP Tidal Volume 350 POC PEEP 8 Clinical Comments [facility] Radiography Chest X-Ray - ED: 1 View, Read by ED Physician, Read by Radiologist, Chronic Changes, Left Infiltrate and Left Effusion Diagnostic Testing: Clinical Impression(s) from Imaging Studies Chest X-Ray 12/18/22 09:30 IMPRESSION: Increasing left pleural effusion with left basilar atelectasis. Stable pleural parenchymal changes at the right lung base. Questionable early infiltrate in the left upper lobe. Electronically Signed: Bert Hirsch MD at 10:17 EDT , Rhythm Strip Rhythm Strip: Sinus Tach Rate: 103 Ectopy: None EKG Initial EKG: Attestation: I personally reviewed and interpreted this EKG as follows: Interpretation: Sinus Tachycardia Comments: Sinus tachycardia rate of 103 bpm Normal axis Normal intervals Normal ST segments Discharge Plan Dx/Rx/DC Orders Clinical Impression: Recurrent pleural effusion, Dyspnea, Acute and chronic respiratory failure with hypoxia, Left upper lobe pneumonia Disposition Disposition: Acute Care Hospital [facility] Discharge Date/Time: 12/18/22 12:08
[2022-12-18] MEDS: Ipratropium/Albuterol Sulfate 3 ML AMPUL.NEB INHALATION (09:14)
[2022-12-18 09:24] LABS: Absolute Lymphocyte Count 0.14 X10^3/uL (0.83-4.51); Absolute Neutrophil Count 11.6 X10^3/uL (2.0-7.7); Basophil# 0.02 X10^3/uL; Basophil% 0.2 % (0-1); Eosinophil# 0.08 X10^3/uL; Eosinophils% 0.6 % (0-5); Hematocrit 25.7 % (37-47); Hemoglobin 7.5 g/dL (12.0-15.0); Lymphocyte # 0.14 X10^3/ul (0.83-4.51); Lymphocyte % 1.1 % (19-41); Mean Corp Hgb Conc 29.2 g/dL (32-36); Mean Corpuscular Hgb 24.6 pg (27.0-32.0); Mean Corpuscular Volume 84.3 fL (81-99); Mean Platelet Vol. 10.6 fl (6.2-12.0); Monocyte# 0.84 X10^3/uL; Monocyte% 6.5 % (0-10); NRBC Flagged by Analyzer 0 % (0-5); Neutrophil # 11.63 X10^3/uL (2.7-7.7); Neutrophil % 90.4 % (47-70); POSITIVE DIFFERENTIAL YES; POSITIVE MORPHOLOGY YES; Platelet Count 402 K/mm3 (150-450); Red Blood Count 3.05 M/mm3 (4.2-5.4); White Blood Count 12.9 K/mm3 (4.4-11.0)
[2022-12-18 09:30] LABS: Differential Indicated SCAN CRITERIA MET
--- NOTE | 2022-12-18 09:30 | RAD_ITS ---
STUDY: X-RAY CHEST REASON FOR EXAM: Female, 67 years old. Sob TECHNIQUE: Single AP portable view of the chest. COMPARISON: Comparison is made with prior study December 11, 2022. FINDINGS: EKG electrodes are seen. The left-sided PICC line catheter has been removed. Bilateral effusions with bibasilar atelectasis is more prominent on the left side. The left pleural-parenchymal changes of progressed as compared to the prior study. Questionable early infiltrate in the left upper lobe. Normal size heart. Normal mediastinum and agapito. Normal visualized pulmonary arteries. There is atherosclerotic tortuosity of the aortic arch and descending thoracic aorta. Normal visualized thoracic spine. Normal visualized ribs, clavicles, and shoulders. A PEG tube is seen within the stomach. RAD/Chest 1 View (Portable) IMPRESSION: Increasing left pleural effusion with left basilar atelectasis. Stable pleural parenchymal changes at the right lung base. Questionable early infiltrate in the left upper lobe. Electronically Signed: Bert Hirsch MD at 10:17 EDT ,
[2022-12-18] MEDS: Acetaminophen 650 MG/20 ML UDC JT (09:38)
[2022-12-18] MEDS: Amiodarone 200 MG Tablet GT (09:38)
[2022-12-18] MEDS: 0.9% Normal Saline 1,000 ML 999 ML IV (09:39)
[2022-12-18 09:41] LABS: BNP,B-Type NATRIURETIC PEPTIDE 200.1 pg/mL (0-100); Troponin-I HS 8 pg/mL (3.0-54.0)
[2022-12-18 09:50] LABS: Lactic Acid 1.1 mmol/L (0.4-1.9)
[2022-12-18 09:58] LABS: Anisocytosis 2+; Hypochromasia 2+
[2022-12-18 10:21] LABS: Allen Test Positive; Base Excess -1 mmol/L (-2 to +2); Bicarbonate 24.3 mmol/L (22-26); Blood Gas Specimen Type ART; Comment AVAPS; FI02 30; O2 Delivery Device BiPAP; PEEP 8; PO2 65 mmHG (75-100); RR 14; SITE L Brach; SO2 92 % (95-99); Total Carbon Dioxide 26 mmol/L; Vt 350; pCO2 40.2 mmHg (35-45); pH 7.39 (7.35-7.45)
[2022-12-18] MEDS: Albuterol 2.5 MG/3 ML VIAL.NEB. INHALATION (10:38)
[2022-12-18 10:42] LABS: ALB/GLOB Ratio 0.5 RATIO (0.9-2.4); AST(SGOT) 59 U/L (15-37); Alanine Aminotransfer ALT/SGPT 90 U/L (13-56); Albumin, Serum 1.9 g/dL (3.2-5.0); Alkaline Phosphatase 100 U/L (45-117); Anion Gap 1 (5-15); BUN 29 mg/dL (7-18); BUN/Creat Ratio 61.3 RATIO (10-20); Calcium,Total 7.9 mg/dL (8.5-10.1); Chloride 109 mmol/L (98-107); Creatinine, Serum 0.47 mg/dL (0.55-1.02); EST Glomerular Filtration Rate 140 mL/min (>60); Est Glom Filt Rate - Afr Amer 169 mL/min (>60); Estimated Creatinine Clearance 77.62 ml/min; Glucose 138 mg/dL (74-106); Potassium 5.1 mmol/L (3.5-5.1); Protein, Total 5.9 g/dL (6.4-8.2); Sodium Level 136 mmol/L (136-145)
[2022-12-18] MEDS: Vancomycin IV 1,000 MG/200 ML BAG 200 MG IV (10:53)
--- NOTE | 2022-12-18 12:40 | PCM.RX.CS ---
Consult Pharmacy has been consulted to manage selected antiobiotic: Vancomycin Type of Consult: New start Prior Doses of Antibiotics Received/Current Regimen: Medications Discontinued Medications Vancomycin HCl (Vancomycin) 1,000 mg in 200 mls @ 200 mls/hr 25 mg/kg (1000 mg) IV X1 ONE Stop: 12/18/22 10:50 Last Admin: 12/18/22 11:58 Dose: Infused Labs: Sodium 136 mmol/L (136-145) 12/18/22 09:10 Potassium 5.1 mmol/L (3.5-5.1) 12/18/22 09:10 Chloride 109 mmol/L (98-107) H 12/18/22 09:10 Carbon Dioxide 26.0 mmol/L (21.0-32.0) 12/18/22 09:10 Anion Gap 1 (5-15) L 12/18/22 09:10 BUN 29 mg/dL (7-18) H 12/18/22 09:10 Creatinine 0.47 mg/dL (0.55-1.02) L 12/18/22 09:10 Est GFR (MDRD) Af Amer 169 mL/min (>60) 12/18/22 09:10 Est GFR (MDRD) Non-Af 140 mL/min (>60) 12/18/22 09:10 BUN/Creatinine Ratio 61.3 RATIO (10-20) H 12/18/22 09:10 Glucose 138 mg/dL (74-106) H 12/18/22 09:10 Weight used for dosin kg Estimated Creatinine Clearance: 50 Goal Trough: 15-20 mcg/mL Pharmacy Plan for Drug Dosinmg IV x1, 500mg IV q12h with trough prior to 4th dose per policy. Pharmacy Service will continue to monitor and adjust dosing as required. Follow-Up Labs: Trough Vancomycin - 12/19 @ 2130
--- NOTE | 2022-12-18 12:44 | CON.PCM.CC_ITS ---
Assessment & Plan Assessment/Plan (1) Acute and chronic respiratory failure with hypoxia: (2) History of coronary artery stent placement: (3) Bronchiectasis, non-tuberculous: (4) Recurrent pleural effusion: (5) Cachexia: (6) Sepsis due to Streptococcus pneumoniae with acute hypoxic respiratory failure and septic shock: PLAN: Plan RECOMMENDATIONS: 1. Hold on additional IV fluids 2. Agree with broad-spectrum antibiotics pending cultures 3. Okay to continue tube feeds by PEG 4. Continue aggressive pulmonary toileting 5. Possible thoracentesis in the future 6. PT/OT secondary to debility 7. Continue BiPAP with breaks as tolerated. Continue BiPAP with sleep IMPRESSIONS: 1. Acute on chronic hypoxic respiratory failure secondary to pneumonia and possible amyloid Patient appears to be back to her baseline respiratory status. Patient does have a significant loculated left pleural effusion that will eventually require pleurodesis by CT surgery. Patient may have an element of aspiration adding to complications, which should be improved following PEG. Patient was significant decline over the last 24 to 48 hours. Patient was treated with Levaquin, so stepping up in therapy to vancomycin and cefepime are appropriate until further information is available. Patient does have bilateral pleural eff usions, but these do not appear to be significantly worse compared to previous. Would hold on additional fluids. BNP is slightly elevated, so an element of congestive heart failure cannot be excluded. Recent echocardiogram was significant for cor pulmonale with severely dilated RV and an EF of 70%. Possibly attempted diuresis in the next 24 to 48 hours once patient's infection status is more clear 2. Recurrent pleural effusion/bronchiectasis/sepsis secondary to pneumococcus Patient appears to be doing okay at this time. Patient still has significant bronchial secretions, but this would be expected. Patient does have adequate blood pressure at this time. Patient may require stress dose steroids if develops hypotension. Blood pressure adequate at this time, but patient has tolerated midodrine in the past. Patient has completed a course of antibiotics recently. Low clinical suspicion for recurrence of infection. Patient would benefit from an eventual VATS biopsy on the left lung with control of her loculated pleural effusions. 3. Debility/dysphagia Patient with significant cachexia and debility. Patient discussed with GI and has been given a PEG tube to standardize nutrition. Patient will likely need a pleurodesis in the future and may benefit from nutritional optimization. Patient is having some osmotic diarrhea, so Imodium will be given. 4. CAD/COPD/advanced age/anemia/history of iatrogenic pneumothorax Complicates care, management, recovery and prognosis. Patient is not acting like an acute coronary event at this time. Patient may have an element of tachypnea secondary to anemia, but would not transfuse at this time. TIME: 33 minutes critical care time spent addressing patient's acute on chronic hypoxic respiratory failure, pleural effusions, review of all data and collaboration with care team HPI Consult Data Date of Consult: 12/18/22 HPI Narrative Reason for Consultation: Respiratory failure HPI Narrative: LOUISE ROSALES is a 67 F, with past medical history listed below and well-known to me from previous visits, who presents to [facility] on 12/18/2022 secondary to progressive shortness of breath over the previous 3 days. Patient reportedly had [facility] and started on Levaquin therapy. This morning, patient was noted to be 70% on 5 L nasal cannula. Patient was placed on BiPAP therapy, but was transported to the emergency room for further evaluation. Patient reportedly did not receive her morning medications and has had a wet cough. Patient was recently admitted [facility] from 331 until 422 secondary to septic shock secondary to pneumococcal pneumonia. Patient has had a thoracentesis on 11/26/2022 and was diagnosed with a PE requiring Eliquis. Due to debility, patient did have a PEG tube placed and was discharged on 3 L nasal cannula at that time. In the ER, patient was noted to have a temperature of 99.5 ?F, tachycardic at 103 bpm and tachypneic at 33 breaths/min. Patient was saturating 100% on nonrebreather initially. Patient was not hypotensive. Laboratories in the ER showed a white blood cell count of 12.9, hemoglobin of 7.5 and platelets of 402. Chemistry showed a bicarbonate of 26, potassium of 5.1 and creatinine of 0.47. Glucose was slightly elevated at 138 and BNP was 200. Given accessory muscle use, patient was placed on a BiPAP. ABG showed normal acid-base with adequate ventilation and increased AA gradient. On arrival to the intensive care unit, patient was on BiPAP and remained tachypneic. Patient not able to give much additional history secondary to rapid respiratory rate. Extensive hospital records were reviewed. Patient did receive fluids in the ER, but these events subsequently stopped. Patient did not report any aspiration. Patient states she did not receive any medications this morning, but believes she has been getting her diuretics at the [facility]. [facility] Medical History Acute and chronic respiratory failure with hypoxia Alcohol abuse Angioedema Anxiety Atherosclerotic heart disease of [place] coronary artery without angina pectoris Bilateral pleural effusion Bronchiectasis, non-tuberculous Cachexia Congestive heart failure (CHF) Contusion of right lower leg, initial encounter COPD (chronic obstructive pulmonary disease) Edema of right lower extremity Elevated transaminase level Former smoker GERD (gastroesophageal reflux disease) History of non-ST elevation myocardial infarction (NSTEMI) (06/18/20) Hypothyroidism Iatrogenic pneumothorax (06/17/22) Iron deficiency anemia Laceration without foreign body, right lower leg, initial encounter Leg wound, right Myocardial infarct Non-healing ulcer of ankle with fat layer exposed Pericardial effusion Pneumothorax Recurrent pleural effusion Restrictive pericarditis Secondary pulmonary arterial hypertension Sepsis due to Streptococcus pneumoniae with acute hypoxic respiratory failure and septic shock Severe malnutrition Syncope (06/17/22) Ulcer of right lower extremity with fat layer exposed Home Medications albuterol sulfate 90 mcg/actuation aerosol inhaler 2 puff inhalation Q4H PRN PRN Bronchodialation 09/07/16 [History Last Taken 06/17/22] omeprazole 20 mg capsule,delayed release 40 mg PO DAILY GERD 09/07/16 [History Last Taken 06/17/22] lorazepam 0.5 mg tablet 0.5 mg PO BID PRN PRN Anxiety 09/26/16 [History Last Taken 06/17/22] ascorbic acid (vitamin C) 500 mg chewable tablet 500 mg PO BIDCM supplement ##0 06/20/20 [Rx Last Taken 06/16/22] budesonide 180 mcg/actuation breath activated powder inhaler 1 inh inhalation BID COPD 02/11/21 [History Last Taken 06/17/22] montelukast 10 mg tablet 10 mg PO DAILY 02/11/21 [History Last Taken 06/16/22] vitamin B complex (B Complex-Vitamin B12 tablet) 1 tab PO DAILY 02/11/21 [History Last Taken 06/17/22] colchicine 0.6 mg tablet 0.6 mg PO DAILY gout #30 tabs 01/14/22 [Rx Last Taken 06/16/22] levothyroxine 88 mcg tablet 88 mcg PO MOTUWETHFRSA 01/20/22 [History Last Taken 06/17/22] metoprolol tartrate 25 mg tablet 12.5 mg PO BID #120 tabs 01/20/22 [Rx Last Taken 06/17/22] potassium chloride 10 mEq tablet,extended release 60 meq PO BID 01/20/22 [History Last Taken 06/17/22] spironolactone 25 mg tablet 25 mg PO DAILY #90 tabs 03/23/22 [Rx Last Taken 06/16/22] acetaminophen 500 mg tablet 1,000 mg PO Q6H PRN Pain 06/17/22 [History Last Taken 06/16/22] guaifenesin 1,200 mg tablet, extended release 12 hr (Mucinex) 1,200 mg PO BID CONGESTION 06/17/22 [History Last Taken 06/17/22] levothyroxine 88 mcg tablet 132 mcg PO GEORGES 06/17/22 [History Last Taken 06/14/22] ipratropium 20 mcg-albuterol 100 mcg/actuation mist for inhalation 1 puff inhalation Q4H #4 grams 07/08/22 [Rx Last Taken Unknown] multivitamin 1 tab PO DAILY supplement 07/08/22 [History Last Taken Unknown] aspirin 81 mg tablet,delayed release 81 mg PO DAILY #90 tabs 09/01/22 [Rx Last Taken Unknown] atorvastatin 40 mg tablet 40 mg PO QHS #90 tabs 09/01/22 [Rx Last Taken Unknown] clopidogrel 75 mg tablet 75 mg PO DAILY #90 tabs 09/01/22 [Rx Last Taken Unknown] bumetanide 1 mg tablet 1 mg PO DAILY water pill #90 tabs 09/21/22 [Rx Last Taken Unknown] alendronate 70 mg tablet tablet PO 10/01/22 [History Last Taken 11/05/22 06:00] amiodarone 200 mg tablet 200 mg PO DAILY #30 tabs 12/12/22 [Rx Last Taken Unknown] apixaban 5 mg tablet (Eliquis) 5 mg PO BID #60 tabs 12/12/22 [Rx Last Taken Unknown] Allergy/AdvReac Type Severity Reaction Status Date / Time amoxicillin [From Augmentin] Allergy Rash Verified 11/19/22 18:15 clavulanic acid Allergy Rash Verified 11/19/22 18:15 [From Augmentin] doxycycline Allergy Rash Verified 11/19/22 18:15 tiotropium AdvReac Unknown PT UNSURE Verified 11/19/22 18:15 OF REACTION budesonide [From Symbicort] AdvReac high Verified 11/19/22 18:15 feeling bumetanide AdvReac PT UNSURE Verified 11/19/22 18:15 OF REACTION cefdinir AdvReac Bleeding Verified 11/19/22 18:15 clindamycin AdvReac Abd Verified 11/19/22 18:15 cramps/diarrhea fluticasone [From Flonase] AdvReac HEADACHES Verified 11/19/22 18:15 formoterol [From Symbicort] AdvReac HIGH Verified 11/19/22 18:15 FEELING furosemide AdvReac NEEDS Verified 11/19/22 13:12 FOLLOW-UP spironolactone AdvReac NEEDS Verified 11/19/22 13:12 FOLLOW-UP umeclidinium AdvReac Shortness Verified 11/19/22 13:12 of breath Family History Mother Colon cancer Father Heart disease Surgical History History of coronary artery stent placement (06/18/20) History of right and left heart catheterization (05/01/20) History of thoracentesis (06/17/22) Social History Smoking Status: Former smoker alcohol intake: current alcohol intake frequency: holidays/special occasions only substance use type: does not use caffeine: Yes Type: coffee Number of servings: 1 ROS ROS Narrative Unable to obtain secondary to respiratory distress Physical Exam Const alert and oriented x3 Constitutional Narrative: Seen on BiPAP therapy. Accessory muscle use noted. General Appearance: cooperative, comfortable and frail HEENT normocephalic, head/scalp atraumatic and moist oral mucous membranes General Ear: hearing grossly impaired Eyes PERRL and EOMs intact bilaterally Neck no lymphadenopathy and supple General: trachea midline Lymph Lymphatic: no lymphadenopathy noted Resp Resp Narrative: Difficult to hear adventitial sounds secondary to BiPAP and tachypnea Auscultation: diminished lung sounds; Negative for rales, rhonchi or wheezes Cardio regular rhythm, S1 normal heart sound, S2 normal heart sound and no murmurs Rate: tachycardic GI normal to inspection, nondistended, normoactive bowel sounds, soft to palpation, non-tender and non-distended Inspection: GI tube present Extremity normal to inspection, full ROM, normal capillary refill and no clubbing, cyanosis or edema Skin no rashes or lesions noted Skin Narrative: Significant dermal atrophy noted General Skin Exam: no breakdown Neuro CN's II-XII intact bilaterally, moves all extremities, no focal motor deficits and no sensory deficits noted Psych thought process normal and cooperative Appearance: appropriate Medical Records Data Attestation: I reviewed the patient's medical records Lab / Micro Data Attestation: I reviewed the patient's lab results. Result Diagrams: 12/18/22 09:10 12/18/22 09:10 Labs: Laboratory Results - last 24 hr 12/18/22 09:10: WBC 12.9 H, RBC 3.05 L, Hgb 7.5 L, Hct 25.7 L, MCV 84.3, MCH 24.6 L, MCHC 29.2 L, RDW Std Deviation Not Reportable, RDW Coeff of Angie Not Repo rtable, Plt Count 402, MPV 10.6, Immature Gran % (Auto) 1.200 H, Neut % (Auto) 90.4 H, Lymph % (Auto) 1.1 L, Boundary % (Auto) 6.5, Eos % (Auto) 0.6, Baso % (Auto) 0.2, Absolute Neuts (auto) 11.6 H, Absolute Lymphs (auto) 0.14 L, Nucleated RBC % 0, Hypochromasia 2+, Anisocytosis 2+ 12/18/22 09:10: Troponin I High Sens 8 12/18/22 09:10: Lactic Acid 1.1 12/18/22 09:10: B-Natriuretic Peptide 200.1 H 12/18/22 09:10: Sodium 136, Potassium 5.1, Chloride 109 H, Carbon Dioxide 26.0, Anion Gap 1 L, BUN 29 H, Creatinine 0.47 L, Estim Creat Clear Calc 77.62, Est GFR (MDRD) Af Amer 169, Est GFR (MDRD) Non-Af 140, BUN/Creatinine Ratio 61.3 H, Glucose 138 H, Calcium 7.9 L, Total Bilirubin 0.20, AST 59 H, ALT 90 H, Alkaline Phosphatase 100, Total Protein 5.9 L, Albumin 1.9 L, Globulin 4.0, Albumin/Globulin Ratio 0.5 L 12/18/22 10:10: Blood Type A POSITIVE, Antibody Screen NEGATIVE ABG Data ABG results: ABG 12/18/22 10:17 Specimen Type ART Sample Site L Brach pH 7.39 Bicarbonate Actual 24.3 Total CO2 26 Base Excess -1 O2 Saturation 92 L O2 % 30 ABG pCO2 40.2 ABG pO2 65 L Finesse Test Positive Respiration Rate 14 O2 Delivery Device BiPAP Tidal Volume 350 POC PEEP 8 Clinical Comments AVAPS Attestation: I personally reviewed and interpreted this ABG as follows: (See HPI) Rhythm Strip Rhythm Strip: Sinus Tach Rate: 103 Ectopy: None Radiology Impression Chest X-Ray 12/18/22 09:30 IMPRESSION: Increasing left pleural effusion with left basilar atelectasis. Stable pleural parenchymal changes at the right lung base. Questionable early infiltrate in the left upper lobe. Electronically Signed: Bert Hirsch MD at 10:17 EDT ,
--- NOTE | 2022-12-18 13:47 | HP.PCM.HOS_ITS ---
HPI - General General Date of Admission: 12/18/22 HPI Narrative LOUISE ROSALES, is a 67 F who presents to the hospital from the assisted with shortness of breath. She states that she did not start really feeling short of breath until yesterday however documentation states that she was started on Levaquin 3 days ago for shortness of breath. There is concern for new bacterial pneumonia. Per report she was 5 L nasal cannula this morning and was satting only 70%. When she came in she was in respiratory distress with tachypnea and retractions and initially was placed on a nonrebreather and then with a continued tachypnea was transitioned to BiPAP. ABG does not demonstrate hypercapnia but it does show hypoxia. In the ER she has a slight leukocytosis as well as an anemia, renal function is stable and her BNP is slightly elevated to 200 which is less than what it was during her last admission here for septic shock between the end of October and the end of November. [facility] Medical History Acute and chronic respiratory failure with hypoxia Alcohol abuse Angioedema Anxiety Atherosclerotic heart disease of [place] coronary artery without angina pectoris Bilateral pleural effusion Bronchiectasis, non-tuberculous Cachexia Congestive heart failure (CHF) Contusion of right lower leg, initial encounter COPD (chronic obstructive pulmonary disease) Edema of right lower extremity Elevated transaminase level Former smoker GERD (gastroesophageal reflux disease) History of non-ST elevation myocardial infarction (NSTEMI) (06/18/20) Hypothyroidism Iatrogenic pneumothorax (06/17/22) Iron deficiency anemia Laceration without foreign body, right lower leg, initial encounter Leg wound, right Myocardial infarct Non-healing ulcer of ankle with fat layer exposed Pericardial effusion Pneumothorax Recurrent pleural effusion Restrictive pericarditis Secondary pulmonary arterial hypertension Sepsis due to Streptococcus pneumoniae with acute hypoxic respiratory failure and septic shock Severe malnutrition Syncope (06/17/22) Ulcer of right lower extremity with fat layer exposed Home Medications albuterol sulfate 90 mcg/actuation aerosol inhaler 2 puff inhalation Q4H PRN PRN Bronchodialation 09/07/16 [History Last Taken 06/17/22] omeprazole 20 mg capsule,delayed release 40 mg PO DAILY GERD 09/07/16 [History Last Taken 06/17/22] lorazepam 0.5 mg tablet 0.5 mg PO BID PRN PRN Anxiety 09/26/16 [History Last Taken 06/17/22] ascorbic acid (vitamin C) 500 mg chewable tablet 500 mg PO BIDCM supplement ##0 06/20/20 [Rx Last Taken 06/16/22] budesonide 180 mcg/actuation breath activated powder inhaler 1 inh inhalation BID COPD 02/11/21 [History Last Taken 06/17/22] montelukast 10 mg tablet 10 mg PO DAILY 02/11/21 [History Last Taken 06/16/22] vitamin B complex (B Complex-Vitamin B12 tablet) 1 tab PO DAILY 02/11/21 [History Last Taken 06/17/22] colchicine 0.6 mg tablet 0.6 mg PO DAILY gout #30 tabs 01/14/22 [Rx Last Taken 06/16/22] levothyroxine 88 mcg tablet 88 mcg PO MOTUWETHFRSA 01/20/22 [History Last Taken 06/17/22] metoprolol tartrate 25 mg tablet 12.5 mg PO BID #120 tabs 01/20/22 [Rx Last Taken 06/17/22] potassium chloride 10 mEq tablet,extended release 60 meq PO BID 01/20/22 [History Last Taken 06/17/22] spironolactone 25 mg tablet 25 mg PO DAILY #90 tabs 03/23/22 [Rx Last Taken 06/16/22] acetaminophen 500 mg tablet 1,000 mg PO Q6H PRN Pain 06/17/22 [History Last Taken 06/16/22] guaifenesin 1,200 mg tablet, extended release 12 hr (Mucinex) 1,200 mg PO BID CONGESTION 06/17/22 [History Last Taken 06/17/22] levothyroxine 88 mcg tablet 132 mcg PO GEORGES 06/17/22 [History Last Taken 06/14/22] ipratropium 20 mcg-albuterol 100 mcg/actuation mist for inhalation 1 puff inhalation Q4H #4 grams 07/08/22 [Rx Last Taken Unknown] multivitamin 1 tab PO DAILY supplement 07/08/22 [History Last Taken Unknown] aspirin 81 mg tablet,delayed release 81 mg PO DAILY #90 tabs 09/01/22 [Rx Last Taken Unknown] atorvastatin 40 mg tablet 40 mg PO QHS #90 tabs 09/01/22 [Rx Last Taken Unknown] clopidogrel 75 mg tablet 75 mg PO DAILY #90 tabs 09/01/22 [Rx Last Taken Unknown] bumetanide 1 mg tablet 1 mg PO DAILY water pill #90 tabs 09/21/22 [Rx Last Taken Unknown] alendronate 70 mg tablet tablet PO 10/01/22 [History Last Taken 11/05/22 06:00] amiodarone 200 mg tablet 200 mg PO DAILY #30 tabs 12/12/22 [Rx Last Taken Unknown] apixaban 5 mg tablet (Eliquis) 5 mg PO BID #60 tabs 12/12/22 [Rx Last Taken Unknown] Allergy/AdvReac Type Severity Reaction Status Date / Time amoxicillin [From Augmentin] Allergy Rash Verified 11/19/22 18:15 clavulanic acid Allergy Rash Verified 11/19/22 18:15 [From Augmentin] doxycycline Allergy Rash Verified 11/19/22 18:15 tiotropium AdvReac Unknown PT UNSURE Verified 11/19/22 18:15 OF REACTION budesonide [From Symbicort] AdvReac high Verified 11/19/22 18:15 feeling bumetanide AdvReac PT UNSURE Verified 11/19/22 18:15 OF REACTION cefdinir AdvReac Bleeding Verified 11/19/22 18:15 clindamycin AdvReac Abd Verified 11/19/22 18:15 cramps/diarrhea fluticasone [From Flonase] AdvReac HEADACHES Verified 11/19/22 18:15 formoterol [From Symbicort] AdvReac HIGH Verified 11/19/22 18:15 FEELING furosemide AdvReac NEEDS Verified 11/19/22 13:12 FOLLOW-UP spironolactone AdvReac NEEDS Verified 11/19/22 13:12 FOLLOW-UP umeclidinium AdvReac Shortness Verified 11/19/22 13:12 of breath Family History Mother Colon cancer Father Heart disease Surgical History History of coronary artery stent placement (06/18/20) History of right and left heart catheterization (05/01/20) History of thoracentesis (06/17/22) Social History Smoking Status: Former smoker alcohol intake: current alcohol intake frequency: holidays/special occasions only substance use type: does not use caffeine: Yes Type: coffee Number of servings: 1 ROS Constitutional Constitutional: Reports fatigue; Denies chills, fever(s) or malaise Eyes Eyes: Denies blurry vision ENT HEENT: Denies headache(s) or nasal discharge Cardiovascular Cardiovascular: Denies chest pain, dyspnea on exertion or syncope Respiratory/Chest Respiratory/Chest: Reports cough and shortness of breath at rest; Denies productive cough or shortness of breath with exertion Gastrointestinal Gastrointestinal: Denies constipation, diarrhea, nausea or vomiting Genitourinary Genitourinary: Denies dysuria Neurologic Neurologic: Denies focal weakness, numbness or tremor(s) Psychiatric Psychiatric: Denies anxiety or depression Vital Signs Vital Signs Vital Signs: 12/18/22 08:52 12/18/22 08:56 12/18/22 08:58 Temperature 99.5 F H 99.5 F H Temperature Source Temporal Temporal Pulse Rate 103 H 103 H Respiratory Rate 29 H 33 H Respiratory Effort Short of Breath Accessory Muscle Use Respiratory Depth Shallow Respiratory Pattern Tachypnea Blood Pressure 113/72 113/72 Blood Pressure Mean 85 85 Pulse Ox 100 100 Oxygen Delivery Method Non-Rebreather Non-Rebreather Non-Rebreather Oxygen Flow Rate (L/min) Fraction of Inspired Oxygen (FIO2) 12/18/22 09:15 12/18/22 09:15 12/18/22 09:16 Temperature Temperature Source Pulse Rate 98 Respiratory Rate 36 H Respiratory Effort Respiratory Depth Respiratory Pattern Blood Pressure Blood Pressure Mean Pulse Ox 98 94 Oxygen Delivery Method Non-Rebreather Nasal Cannula Oxygen Flow Rate (L/min) 10 6 Fraction of Inspired Oxygen (FIO2) 12/18/22 09:56 12/18/22 09:02 12/18/22 09:10 Temperature 99.1 F Temperature Source Temporal Pulse Rate 96 104 H 104 H Respiratory Rate 31 H 30 H 31 H Respiratory Effort Respiratory Depth Respiratory Pattern Blood Pressure 97/68 Blood Pressure Mean 77 Pulse Ox 94 99 98 Oxygen Delivery Method Bi-pap Oxygen Flow Rate (L/min) Fraction of Inspired Oxygen (FIO2) 12/18/22 09:15 12/18/22 09:20 12/18/22 09:30 Temperature Temperature Source Pulse Rate 105 H 103 H Respiratory Rate 32 H 29 H Respiratory Effort Respiratory Depth Respiratory Pattern Blood Pressure 107/72 102/67 Blood Pressure Mean 84 79 Pulse Ox 95 96 Oxygen Delivery Method Oxygen Flow Rate (L/min) Fraction of Inspired Oxygen (FIO2) 12/18/22 09:30 12/18/22 09:40 12/18/22 09:45 Temperature Temperature Source Pulse Rate 104 H 98 98 Respiratory Rate 40 H 34 H 37 H Respiratory Effort Respiratory Depth Respiratory Pattern Blood Pressure 103/73 Blood Pressure Mean 83 Pulse Ox 94 96 94 Oxygen Delivery Method Oxygen Flow Rate (L/min) Fraction of Inspired Oxygen (FIO2) 12/18/22 09:50 12/18/22 10:00 12/18/22 10:00 Temperature Temperature Source Pulse Rate 98 98 98 Respiratory Rate 35 H 38 H 38 H Respiratory Effort Respiratory Depth Respiratory Pattern Blood Pressure 100/68 Blood Pressure Mean 78 Pulse Ox 95 95 95 Oxygen Delivery Method Oxygen Flow Rate (L/min) Fraction of Inspired Oxygen (FIO2) 12/18/22 10:10 12/18/22 10:15 12/18/22 10:39 Temperature Temperature Source Pulse Rate 97 97 94 Respiratory Rate 35 H 37 H 37 H Respiratory Effort Respiratory Depth Respiratory Pattern Tachypnea Blood Pressure 97/68 Blood Pressure Mean 78 Pulse Ox 95 94 Oxygen Delivery Method Oxygen Flow Rate (L/min) Fraction of Inspired Oxygen (FIO2) 12/18/22 09:40 12/18/22 10:05 12/18/22 11:59 Temperature 97.6 F L Temperature Source Temporal Pulse Rate 100 92 Respiratory Rate 38 H 25 H Respiratory Effort Respiratory Depth Respiratory Pattern Tachypnea Blood Pressure 94/70 Blood Pressure Mean 78 Pulse Ox 95 100 Oxygen Delivery Method Room Air Oxygen Flow Rate (L/min) Fraction of Inspired Oxygen (FIO2) 30 50 12/18/22 10:15 12/18/22 10:20 12/18/22 10:30 Temperature Temperature Source Pulse Rate 97 96 Respiratory Rate 37 H 30 H 42 H Respiratory Effort Respiratory Depth Respiratory Pattern Blood Pressure 92/63 Blood Pressure Mean 73 Pulse Ox 94 95 100 Oxygen Delivery Method Oxygen Flow Rate (L/min) Fraction of Inspired Oxygen (FIO2) 12/18/22 10:30 12/18/22 10:40 12/18/22 10:45 Temperature Temperature Source Pulse Rate 94 Respiratory Rate 42 H 33 H Respiratory Effort Respiratory Depth Respiratory Pattern Blood Pressure 94/65 Blood Pressure Mean 75 Pulse Ox 100 99 Oxygen Delivery Method Oxygen Flow Rate (L/min) Fraction of Inspired Oxygen (FIO2) 12/18/22 10:50 12/18/22 11:00 12/18/22 11:00 Temperature Temperature Source Pulse Rate 95 96 96 Respiratory Rate 35 H 36 H 36 H Respiratory Effort Respiratory Depth Respiratory Pattern Blood Pressure 97/68 Blood Pressure Mean 78 Pulse Ox 99 99 99 Oxygen Delivery Method Oxygen Flow Rate (L/min) Fraction of Inspired Oxygen (FIO2) 12/18/22 11:10 12/18/22 11:15 12/18/22 11:20 Temperature Temperature Source Pulse Rate 93 95 93 Respiratory Rate 32 H 40 H 27 H Respiratory Effort Respiratory Depth Respiratory Pattern Blood Pressure 89/73 L Blood Pressure Mean 80 Pulse Ox 100 100 100 Oxygen Delivery Method Oxygen Flow Rate (L/min) Fraction of Inspired Oxygen (FIO2) 12/18/22 11:30 12/18/22 11:30 12/18/22 11:40 Temperature Temperature Source Pulse Rate 94 94 93 Respiratory Rate 34 H 34 H 32 H Respiratory Effort Respiratory Depth Respiratory Pattern Blood Pressure 96/68 Blood Pressure Mean 78 Pulse Ox 100 100 100 Oxygen Delivery Method Oxygen Flow Rate (L/min) Fraction of Inspired Oxygen (FIO2) 12/18/22 11:45 12/18/22 11:50 12/18/22 12:00 Temperature Temperature Source Pulse Rate 92 95 92 Respiratory Rate 17 32 H 28 H Respiratory Effort Respiratory Depth Respiratory Pattern Blood Pressure 94/70 Blood Pressure Mean 79 Pulse Ox 100 100 100 Oxygen Delivery Method Oxygen Flow Rate (L/min) Fraction of Inspired Oxygen (FIO2) 12/18/22 12:38 Temperature Temperature Source Pulse Rate Respiratory Rate Respiratory Effort Respiratory Depth Respiratory Pattern Blood Pressure Blood Pressure Mean Pulse Ox Oxygen Delivery Method Oxygen Flow Rate (L/min) Fraction of Inspired Oxygen (FIO2) 35 Weight Weight: 90 lb 6.232 oz Body Mass Index (BMI) 18.9 Physical Exam Narrative General: Alert, Oriented x3, Cooperative, moderate respiratory distress HEENT: Atraumatic, PERRLA, EOMI, Normocephalic Oral: Moist Mucosa Neck: Supple, No JVD Lungs: Diminished, Normal air movement, No rhonchi, No wheeze, No rales, tachypnea, retractions Cardiovascular: Tachycardic stroke team, Regular Rhythm, Normal S1, Normal S2, No murmurs Abdomen: Soft, Non Tender, Non-Distended, No Hepato-splenomegaly Extremities: Right foot edema, Capillary Refill Less than 3 Seconds Skin: No rashes, No breakdown Musculoskeletal: No Tenderness to Palpation of Joints or Extremities Neurological: Motor Exam 5/5 strength throughout, Sensory exam intact to light touch and pain Psych/Mental Status: Normal Affect, Appropriate Results Lab / Micro Data Result Diagrams: 12/18/22 09:10 12/18/22 09:10 Labs: Laboratory Results - last 24 hr 12/18/22 09:10: WBC 12.9 H, RBC 3.05 L, Hgb 7.5 L, Hct 25.7 L, MCV 84.3, MCH 24.6 L, MCHC 29.2 L, RDW Std Deviation Not Reportable, RDW Coeff of Angie Not Reportable, Plt Count 402, MPV 10.6, Immature Gran % (Auto) 1.200 H, Neut % (Auto) 90.4 H, Lymph % (Auto) 1.1 L, [place] % (Auto) 6.5, Eos % (Auto) 0.6, Baso % (Auto) 0.2, Absolute Neuts (auto) 11.6 H, Absolute Lymphs (auto) 0.14 L, Nucleated RBC % 0, Hypochromasia 2+, Anisocytosis 2+ 12/18/22 09:10: Troponin I High Sens 8 12/18/22 09:10: Lactic Acid 1.1 12/18/22 09:10: B-Natriuretic Peptide 200.1 H 12/18/22 09:10: Sodium 136, Potassium 5.1, Chloride 109 H, Carbon Dioxide 26.0, Anion Gap 1 L, BUN 29 H, Creatinine 0.47 L, Estim Creat Clear Calc 77.62, Est GFR (MDRD) Af Amer 169, Est GFR (MDRD) Non-Af 140, BUN/Creatinine Ratio 61.3 H, Glucose 138 H, Calcium 7.9 L, Total Bilirubin 0.20, AST 59 H, ALT 90 H, Alkaline Phosphatase 100, Total Protein 5.9 L, Albumin 1.9 L, Globulin 4.0, Albumin/Globulin Ratio 0.5 L 12/18/22 10:10: Blood Type A POSITIVE, Antibody Screen NEGATIVE ABG Data ABG results: ABG 12/18/22 10:17 Specimen Type ART Sample Site L Brach pH 7.39 Bicarbonate Actual 24.3 Total CO2 26 Base Excess -1 O2 Saturation 92 L O2 % 30 ABG pCO2 40.2 ABG pO2 65 L Fines[place] Test Positive Respiration Rate 14 O2 Delivery Device BiPAP Tidal Volume 350 POC PEEP 8 Clinical Comments AVAPS Rhythm Strip Rhythm Strip: Sinus Tach Rate: 103 Ectopy: None Radiology Impression Chest X-Ray 12/18/22 09:30 IMPRESSION: Increasing left pleural effusion with left basilar atelectasis. Stable pleural parenchymal changes at the right lung base. Questionable early infiltrate in the left upper lobe. Electronically Signed: Bert Hirsch MD at 10:17 EDT , Assessment & Plan Assessment/Plan (1) Acute and chronic respiratory failure with hypoxia: PLAN: Plan 1.? Acute on chronic hypoxic respiratory failure secondary to continued left pleural effusion and healthcare associated versus aspiration pneumonia in the setting of recent PEs and septic shock for pneumococcal pneumonia/COPD/anemia unknown etiology ? Blood cultures are pending ? We will continue with broad spectrum antibiotics ?We will hold off on diuretics for the moment but will also not provide any further fluids given her slight increase in her BNP ?She did have recent PEs and an echo that demonstrated right heart strain, will discuss with the field party manager on whether to hold anticoagulation or start on a h eparin drip since she has an anemia of unknown etiology at the moment ? Fecal occult is pending ?Continued left pleural effusion, may need to thoracentesis in the future ? Continue pressors wean as able ? Continue with treatments and steroids ? Did have an 18-minute advance care planning discussion with both her and her son about CODE STATUS and prognosis 2.? CAD status post stent/HTN/HLD/chronic diastolic CHF/paroxysmal A-fib ? Can continue with aspirin via G-tube as well as Lipitor ? Blood pressures are stable but low, will hold her blood pressure medication for now ?We will hold her diuretics but can resume amiodarone when verified 3.? Hypothyroidism ? Stable ? Continue with Synthroid when verified 4.? Severe chronic protein calorie malnutrition ? Continue with nutritional evaluation 5.? GERD ? Stable ? Continue with PPI DVT:SCDs Charges/Coding Visit Charges Inpatient E&M: 01304 Init Hosp L3 Procedures Hospitalists Procedures: 61920 Advncd Care Plan 30 Min
[2022-12-18] MEDS: LORazepam 2 MG/ML Syringe 0.5 MG IV (16:35)
[2022-12-18] MEDS: 0.9% Saline Lock 10 ML Syringe IV ×2 (16:38→22:21)
[2022-12-18 16:47] LABS: International Normalized Ratio 1.4; Prothrombin Time (Protime)PT. 16.8 SECONDS (11.7-14.9)
[2022-12-18] MEDS: Heparin Injection (Vial) 5,000 UNIT/ML VIAL 3000 UNIT IV (17:22)
[2022-12-18] MEDS: HEPARIN/D5w 25,000 UNITS 25,000 UNITS/250 ML IV.SOLN. 5.5 UNITS CONT INF (17:23)
[2022-12-18] MEDS: Jevity 1.5 1,000 ML 20 ML GT (17:28)
[2022-12-18 18:56] LABS: Hematocrit 25.7 % (37-47); Hemoglobin 7.4 g/dL (12.0-15.0)
[2022-12-18] MEDS: Acetaminophen 650 MG/20 ML UDC GT (20:25)
[2022-12-18] MEDS: Ipratropium 0.5 MG/2.5 ML SOLUTION INHALATION (20:25)
[2022-12-18] MEDS: Morphine 2 MG/ML Syringe IV (22:21)
[2022-12-18] MEDS: Vancomycin IV 500 MG/100 ML BAG 100 MG IV (22:54)
[2022-12-19] VITALS (33 sets, daily range): BP systolic 85–110; BP diastolic 53–73; PULSE 93–107; RESP 12–39; TEMP 36.1–36.6; O2SAT 92–100; BMI 18.1
[2022-12-19 00:08] LABS: Partial Thromboplast Time 69.9 Seconds (24.1-36.2)
[2022-12-19] MEDS: Sodium Chloride 0.65% 1 SPRAY SPRAY.BTL 2 SPRAY NASAL ×3 (00:20→20:08)
[2022-12-19] MEDS: 0.9% Saline Lock 10 ML Syringe IV ×3 (06:29→23:26)
[2022-12-19 07:13] LABS: Absolute Lymphocyte Count 0.24 X10^3/uL (0.83-4.51); Absolute Neutrophil Count 12.2 X10^3/uL (2.0-7.7); Basophil# 0.08 X10^3/uL; Basophil% 0.6 % (0-1); Eosinophil# 0.24 X10^3/uL; Eosinophils% 1.7 % (0-5); Hematocrit 28.9 % (37-47); Hemoglobin 8.2 g/dL (12.0-15.0); Lymphocyte # 0.24 X10^3/ul (0.83-4.51); Lymphocyte % 1.7 % (19-41); Mean Corp Hgb Conc 28.4 g/dL (32-36); Mean Corpuscular Hgb 24.7 pg (27.0-32.0); Mean Platelet Vol. 10.3 fl (6.2-12.0); Monocyte# 0.81 X10^3/uL; Monocyte% 5.9 % (0-10); NRBC Flagged by Analyzer 0.1 % (0-5); Neutrophil # 12.22 X10^3/uL (2.7-7.7); Neutrophil % 89.1 % (47-70); POSITIVE DIFFERENTIAL YES; POSITIVE MORPHOLOGY YES; Platelet Count 382 K/mm3 (150-450); Red Blood Count 3.32 M/mm3 (4.2-5.4); White Blood Count 13.7 K/mm3 (4.4-11.0)
[2022-12-19] MEDS: Ipratropium 0.5 MG/2.5 ML SOLUTION INHALATION ×3 (07:14→19:21)
[2022-12-19 07:23] LABS: Differential Indicated SCAN CRITERIA MET
[2022-12-19 07:26] LABS: Anion Gap 5 (5-15); BUN 24 mg/dL (7-18); Calcium,Total 7.9 mg/dL (8.5-10.1); Chloride 107 mmol/L (98-107); Creatinine, Serum 0.34 mg/dL (0.55-1.02); EST Glomerular Filtration Rate 206 mL/min (>60); Est Glom Filt Rate - Afr Amer 250 mL/min (>60); Estimated Creatinine Clearance 102.34 ml/min; Glucose 116 mg/dL (74-106); Potassium 4.2 mmol/L (3.5-5.1); Sodium Level 138 mmol/L (136-145)
[2022-12-19 08:08] LABS: Acanthocytes 1+; Anisocytosis 2+; Differential Comment SCANNED; Hypochromasia 1+; Macrocytosis 1+; Microcytosis 1+; Polychromasia 1+
--- NOTE | 2022-12-19 08:30 | PN.CC_ITS ---
Assessment & Plan Assessment/Plan (1) Acute and chronic respiratory failure with hypoxia: (2) History of coronary artery stent placement: (3) Bronchiectasis, non-tuberculous: (4) Recurrent pleural effusion: (5) Cachexia: (6) Sepsis due to Streptococcus pneumoniae with acute hypoxic respiratory failure and septic shock: PLAN: Plan RECOMMENDATIONS: 1. Consider aggressive rate control 2. Agree with broad-spectrum antibiotics pending cultures 3. Okay to continue tube feeds by PEG 4. Continue aggressive pulmonary toileting 5. Hold on thoracentesis if patient continues to tolerate nasal cannula 6. PT/OT secondary to debility 7. Continue BiPAP with breaks as tolerated. Continue BiPAP with sleep 8. Potential transfer from the intensive care unit tomorrow IMPRESSIONS: 1. Acute on chronic hypoxic respiratory failure secondary to possible flash pulmonary edema Patient appears to be back to her baseline respiratory status. Patient does have a significant loculated left pleural effusion that will eventually require pleurodesis by CT surgery. Patient may have an element of aspiration adding to complications, which should be improved following PEG. Patient was significant decline over the last 24 to 48 hours. Patient has had multiple previous similar episodes. Concern for flash pulmonary edema leading to rapid decompensation and recovery. Patient would benefit from heart rate control and angiolytics. 2. Recurrent pleural effusion/bronchiectasis/sepsis secondary to pneumoc occus Patient appears to be doing okay at this time. Patient still has significant bronchial secretions, but this would be expected. Patient does have adequate blood pressure at this time. Patient may require stress dose steroids if develops hypotension. Blood pressure adequate at this time, but patient has tolerated midodrine in the past. If patient continues to require only nasal cannula, previous effusions have been transudate so likely do not require repeat thoracentesis unless symptomatic. Patient would benefit from an eventual VATS biopsy on the left lung with control of her loculated pleural effusions. 3. Debility/dysphagia Patient with significant cachexia and debility. Patient discussed with GI and has been given a PEG tube to standardize nutrition. Patient will likely need a pleurodesis in the future and may benefit from nutritional optimization. Patient is having some osmotic diarrhea, so Imodium will be given. 4. CAD/COPD/advanced age/anemia/history of iatrogenic pneumothorax Complicates care, management, recovery and prognosis. Patient is not acting like an acute coronary event at this time. Patient may have an element of tachypnea secondary to anemia, but would not transfuse at this time. Subjective Subjective Patient did well overnight. Patient was transitioned to nasal cannula this morning and was tolerating it well. Patient not reporting any significant pain. Patient was able to reiterate that she was feeling well on the day prior to presentation. Patient denying any pain at this time. Objective Data Objective Data Vital Signs: Vital Signs Temp Pulse Resp BP Pulse Ox O2 Del Method O2 Flow Rate 36.6 C 100 24 H 104/63 99 Nasal Cannula 5 12/19/22 05:31 12/19/22 07:00 12/19/22 07:00 12/19/22 07:00 12/19/22 07:00 12/19/22 07:00 12/19/22 07:00 FiO2 35 12/19/22 04:00 Oxygen Flow Rate (L/min) 5 Oxygen Delivery Method Nasal Cannula Weight: 39.3 kg Body Mass Index (BMI) 18.1 Intake & Output: Intake and Output for Last 24 Hours 12/17/22 12/18/22 12/19/22 23:59 23:59 23:59 Intake Total 1645 / 1645 725.13 / 725.13 Output Total 300 / 300 100 / 100 Balance 1345 / 1345 625.13 / 625.13 Medical Nutrition Assessment Dietitian: Malnutrition Criteria Met Start: 12/18/22 15:10 Freq: Status: Active Protocol: Document 12/18/22 15:10 JAYCE (Rec: 12/18/22 15:10 [facility] [id number]) Nutrition Malnutrition Evidence of Malnutrition Exists Yes Malnutrition (severe): Chronic Evidenced By Suboptimal Energy Intake ( Severe),Weight Loss (Severe), Physical Changes (Severe) Clinical Problem Chronic Disease or Condition Related Malnutrition Etiology severe related to inadequate energy intake Signs/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 Status Active Problem Biting/Chewing Difficulty Etiology swallowing related to dysphagia Signs/Symptoms as evidenced by [facility] altered diet prior to adm Status Active Problem Recommendation Dietitian Recommendations/Changes Will order Jevity 1.5 via PEG at goal rate 40 ml/hr w/ 120 ml water flush every 4 hours to provide ~ 1440 greyson/ 61 gm pro/ 1449 ml free water/day. Start tf at 20 ml/hr and increase to goal rate after 8- 12 hours as pt tolerates. When medically able, rec BRUCE to liberal Regular - consistency per [facility] w/ ONS at meals or medpass for increased nutrition if consumed. Lab / Micro Data Attestation: I reviewed the patient's lab results. Result Diagrams: 12/19/22 06:40 12/19/22 06:40 Labs: Laboratory Results - last 24 hr 12/18/22 09:10: WBC 12.9 H, RBC 3.05 L, Hgb 7.5 L, Hct 25.7 L, MCV 84.3, MCH 24.6 L, MCHC 29.2 L, RDW Std Deviation Not Reportable, RDW Coeff of Angie Not Reportable, Plt Count 402, MPV 10.6, Immature Gran % (Auto) 1.200 H, Neut % (Auto) 90.4 H, Lymph % (Auto) 1.1 L, [place] % (Auto) 6.5, Eos % (Auto) 0.6, Baso % (Auto) 0.2, Absolute Neuts (auto) 11.6 H, Absolute Lymphs (auto) 0.14 L, Nucleated RBC % 0, Hypochromasia 2+, Anisocytosis 2+ 12/18/22 09:10: Troponin I High Sens 8 12/18/22 09:10: Lactic Acid 1.1 12/18/22 09:10: B-Natriuretic Peptide 200.1 H 12/18/22 09:10: Sodium 136, Potassium 5.1, Chloride 109 H, Carbon Dioxide 26.0, Anion Gap 1 L, BUN 29 H, Creatinine 0.47 L, Estim Creat Clear Calc 77.62, Est GFR (MDRD) Af Amer 169, Est GFR (MDRD) Non-Af 140, BUN/Creatinine Ratio 61.3 H, Glucose 138 H, Calcium 7.9 L, Total Bilirubin 0.20, AST 59 H, ALT 90 H, Alkaline Phosphatase 100, Total Protein 5.9 L, Albumin 1.9 L, Globulin 4.0, Albumin/Globulin Ratio 0.5 L 12/18/22 10:10: Blood Type A POSITIVE, Antibody Screen NEGATIVE 12/18/22 16:20: APTT 30.0 12/18/22 16:20: PT 16.8 H, INR 1.4 12/18/22 18:45: Hgb 7.4 L, Hct 25.7 L 12/18/22 23:30: APTT 69.9 H 12/19/22 06:40: WBC 13.7 H, RBC 3.32 L, Hgb 8.2 L, Hct 28.9 L, MCV 87.0, MCH 24.7 L, MCHC 28.4 L, RDW Std Deviation Not Reportable, RDW Coeff of Angie Not Reportable, Plt Count 382, MPV 10.3, Immature Gran % (Auto) 1.000 H, Neut % (Auto) 89.1 H, Lymph % (Auto) 1.7 L, [place] % (Auto) 5.9, Eos % (Auto) 1.7, Baso % (Auto) 0.6, Absolute Neuts (auto) 12.2 H, Absolute Lymphs (auto) 0.24 L, Nucleated RBC % 0.1, Differential Comment SCANNED, Polychromasia 1+, Hypochromasia 1+, Anisocytosis 2+, Microcytosis 1+, Macrocytosis 1+, Acanthocytes (Spur) 1+ 12/19/22 06:40: Sodium 138, Potassium 4.2, Chloride 107, Carbon Dioxide 26.0, Anion Gap 5, BUN 24 H, Creatinine 0.34 L, Estim Creat Clear Calc 102.34, Est GFR (MDRD) Af Amer 250, Est GFR (MDRD) Non-Af 206, BUN/Creatinine Ratio 71.0 H, Glucose 116 H, Calcium 7.9 L 12/19/22 06:40: APTT Cancelled ABG Data ABG results: ABG 12/18/22 10:17 Specimen Type ART Sample Site L Brach pH 7.39 Bicarbonate Actual 24.3 Total CO2 26 Base Excess -1 O2 Saturation 92 L O2 % 30 ABG pCO2 40.2 ABG pO2 65 L Finesse Test Positive Respiration Rate 14 O2 Delivery Device BiPAP Tidal Volume 350 POC PEEP 8 Clinical Comments AVAPS Radiography Diagnostic Testing: Radiology Impression Chest X-Ray 12/18/22 09:30 IMPRESSION: Increasing left pleural effusion with left basilar atelectasis. Stable pleural parenchymal changes at the right lung base. Questionable early infiltrate in the left upper lobe. Electronically Signed: Bert Hirsch MD at 10:17 EDT , Rhythm Strip Rhythm Strip: Sinus Rhythm Rate: 98 Ectopy: None Physical Exam Const alert and oriented x3 Constitutional Narrative: Patient breathing comfortably on nasal cannula General Appearance: cooperative, comfortable and frail HEENT normocephalic, head/scalp atraumatic and moist oral mucous membranes Eyes PERRL and EOMs intact bilaterally Neck no lymphadenopathy and supple General: trachea midline Lymph Lymphatic: no lymphadenopathy noted Resp Resp Narrative: Difficult to hear adventitial sounds secondary to BiPAP and tachypnea Auscultation: diminished lung sounds; Negative for rales, rhonchi or wheezes Cardio regular rate, regular rhythm, S1 normal heart sound, S2 normal heart sound and no murmurs GI normal to inspection, nondistended, normoactive bowel sounds, soft to palpation, non-tender and non-distended Inspection: GI tube present Extremity normal to inspection, full ROM, normal capillary refill and no clubbing, cyanosis or edema Skin no rashes or lesions noted Skin Narrative: Significant dermal atrophy noted General Skin Exam: no breakdown Neuro CN's II-XII intact bilaterally, moves all extremities, no focal motor deficits and no sensory deficits noted Psych thought process normal and cooperative Appearance: appropriate Charges/Coding Visit Charges Inpatient E&M: 92092 Subs Hosp L3
[2022-12-19] MEDS: LORazepam 2 MG/ML Syringe 0.5 MG IV ×2 (08:45→22:01)
[2022-12-19 09:38] LABS: Partial Thromboplast Time 42.5 Seconds (24.1-36.2)
--- NOTE | 2022-12-19 09:45 | CASEMGMT ---
Addendum entered by Erika Mae 12/19/22 13:18: Social Work SW spoke w/pt and son in room to confirm plans. SW did provide jail facility, as described below, to pt and son. They are unsure where they would like referrals sent, if they want pt to return to [facility] or have a new referral sent. Son states initially they were thinking [facility] but now are not certain. Son also mentioned [facility] and [facility]. They aren't sure what their first choice is at this point however. SW explained we can check back with them on Wednesday. Plan: SNF, facility TBD, will speak w/pt and son Wednesday and make referrals. ADELAIDA Vogt Addendum entered by Erika Mae 12/19/22 12:19: Social Work Pt's son called back. We discussed discharge options, if he and pt want to return to [facility], or try a different facility. Son states pt really wanted to go to [facility] last time, would like to try again. He is not certain if [facility] would be the next choice after [facility]. He states will be here later to speak w/the pt about it. SW explained we do have a list of jail facilities to review should they want to try anyplace else. Son states understanding. He is to call SW when he is here. SW will provide to pt and son a list of jail facilities in their preferred geographic area, complete with quality and resource use data and in pt's insurance network later today. ADELAIDA Vogt Original Note: Social Work Pt is here from [facility]. SW called balta Bruno, message left. SW will continue to follow to see if pt and son would like to return to [facility] at discharge, or if they would like a referral elsewhere. SW will continue to follow. ADELAIDA Vogt
--- NOTE | 2022-12-19 09:47 | PCM.PN.HOSP ---
Subjective Subjective Breathing little bit better today, down to 5 L nasal cannula off BiPAP. Unclear whether or not she has flash pulmonary edema secondary to tachycardia or if her respiratory distress is due to anxiety Objective Data Objective Data Vital Signs: Vital Signs Temp Pulse Resp BP Pulse Ox O2 Del Method O2 Flow Rate 97.8 F 100 24 H 104/63 99 Nasal Cannula 5 12/19/22 05:31 12/19/22 07:00 12/19/22 07:00 12/19/22 07:00 12/19/22 07:00 12/19/22 07:00 12/19/22 07:00 FiO2 35 12/19/22 04:00 Oxygen Flow Rate (L/min) 5 Oxygen Delivery Method Nasal Cannula Weight: 86 lb 10.267 oz Body Mass Index (BMI) 18.1 Intake & Output: Intake and Output for Last 24 Hours 12/18/22 12/19/22 12/20/22 03:59 03:59 03:59 Intake Total 1683.13 / 2295.13 687 / 687 Output Total 300 / 400 100 / 100 Balance 1383.13 / 1895.13 587 / 587 Medical Nutrition Assessment Dietitian: Malnutrition Criteria Met Start: 12/18/22 15:10 Freq: Status: Active Protocol: Document 12/18/22 15:10 JAYCE (Rec: 12/18/22 15:10 JAYCE [id number]) Nutrition Malnutrition Evidence of Malnutrition Exists Yes Malnutrition (severe): Chronic Evidenced By Suboptimal Energy Intake ( Severe),Weight Loss (Severe), Physical Changes (Severe) Clinical Problem Chronic Disease or Condition Related Malnutrition Etiology severe related to inadequate energy intake 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 Status Active Problem Biting/Chewing Difficulty Etiology swallowing related to dysphagia Signs/Symptoms as evidenced by [facility] altered diet prior to adm Status Active Problem Recommendation Dietitian Recommendations/Changes Will order Jevity 1.5 via PEG at goal rate 40 ml/hr w/ 120 ml water flush every 4 hours to provide ~ 1440 greyson/ 61 gm pro/ 1449 ml free water/day. Start tf at 20 ml/hr and increase to goal rate after 8- 12 hours as pt tolerates. When medically able, rec BRUCE to liberal Regular - consistency per [employer] w/ ONS at meals or medpass for increased nutrition if consumed. Lab / Micro Data Result Diagrams: 12/19/22 06:40 12/19/22 06:40 Labs: Laboratory Results - last 24 hr 12/18/22 09:10: Hypochromasia 2+, Anisocytosis 2+ 12/18/22 09:10: Lactic Acid 1.1 12/18/22 09:10: Sodium 136, Potassium 5.1, Chloride 109 H, Carbon Dioxide 26.0, Anion Gap 1 L, BUN 29 H, Creatinine 0.47 L, Estim Creat Clear Calc 77.62, Est GFR (MDRD) Af Amer 169, Est GFR (MDRD) Non-Af 140, BUN/Creatinine Ratio 61.3 H, Glucose 138 H, Calcium 7.9 L, Total Bilirubin 0.20, AST 59 H, ALT 90 H, Alkaline Phosphatase 100, Total Protein 5.9 L, Albumin 1.9 L, Globulin 4.0, Albumin/Globulin Ratio 0.5 L 12/18/22 10:10: Blood Type A POSITIVE, Antibody Screen NEGATIVE 12/18/22 16:20: APTT 30.0 12/18/22 16:20: PT 16.8 H, INR 1.4 12/18/22 18:45: Hgb 7.4 L, Hct 25.7 L 12/18/22 23:30: APTT 69.9 H 12/19/22 06:40: WBC 13.7 H, RBC 3.32 L, Hgb 8.2 L, Hct 28.9 L, MCV 87.0, MCH 24.7 L, MCHC 28.4 L, RDW Std Deviation Not Reportable, RDW Coeff of Angie Not Reportable, Plt Count 382, MPV 10.3, Immature Gran % (Auto) 1.000 H, Neut % (Auto) 89.1 H, Lymph % (Auto) 1.7 L, [place] % (Auto) 5.9, Eos % (Auto) 1.7, Baso % (Auto) 0.6, Absolute Neuts (auto) 12.2 H, Absolute Lymphs (auto) 0.24 L, Nucleated RBC % 0.1, Differential Comment SCANNED, Polychromasia 1+, Hypochromasia 1+, Anisocytosis 2+, Microcytosis 1+, Macrocytosis 1+, Acanthocytes (Spur) 1+ 12/19/22 06:40: Sodium 138, Potassium 4.2, Chloride 107, Carbon Dioxide 26.0, Anion Gap 5, BUN 24 H, Creatinine 0.34 L, Estim Creat Clear Calc 102.34, Est GFR (MDRD) Af Amer 250, Est GFR (MDRD) Non-Af 206, BUN/Creatinine Ratio 71.0 H, Glucose 116 H, Calcium 7.9 L 12/19/22 06:40: APTT Cancelled 12/19/22 08:50: APTT 42.5 H ABG Data ABG results: ABG 12/18/22 10:17 Specimen Type ART Sample Site L Brach pH 7.39 Bicarbonate Actual 24.3 Total CO2 26 Base Excess -1 O2 Saturation 92 L O2 % 30 ABG pCO2 40.2 ABG pO2 65 L Finesse Test Positive Respiration Rate 14 O2 Delivery Device BiPAP Tidal Volume 350 POC PEEP 8 Clinical Comments AVAPS Radiography Diagnostic Testing: Radiology Impression Chest X-Ray 12/18/22 09:30 IMPRESSION: Increasing left pleural effusion with left basilar atelectasis. Stable pleural parenchymal changes at the right lung base. Questionable early infiltrate in the left upper lobe. Electronically Signed: Bert Hirsch MD at 10:17 EDT , Rhythm Strip Rhythm Strip: Sinus Rhythm Rate: 98 Ectopy: None Physical Exam Narrative General: Alert, Oriented x3, Cooperative, mild respiratory distress HEENT: Atraumatic, PERRLA, EOMI, Normocephalic Oral: Moist Mucosa Neck: Supple, No JVD Lungs: Diminished, Normal air movement, No rhonchi, No wheeze, No rales, tachypnea Cardiovascular: Tachycardic stroke team, Regular Rhythm, Normal S1, Normal S2, No murmurs Abdomen: Soft, Non Tender, Non-Distended, No Hepato-splenomegaly Extremities: Right foot edema, Capillary Refill Less than 3 Seconds Skin: No rashes, No breakdown Musculoskeletal: No Tenderness to Palpation of Joints or Extremities Neurological: Motor Exam 5/5 strength throughout, Sensory exam intact to light touch and pain Psych/Mental Status: Normal Affect, Appropriate Assessment & Plan Assessment/Plan (1) Acute and chronic respiratory failure with hypoxia: PLAN: Plan 1.? Acute on chronic hypoxic respiratory failure secondary to continued left pleural effusion and healthcare associated versus aspiration pneumonia in the setting of recent PEs and septic shock for pneumococcal pneumonia/COPD/anemia unknown etiology ? Blood cultures are pending ? We will continue with broad spectrum antibiotics ?We will hold off on diuretics for the moment but will also not provide any further fluids given her slight increase in her BNP ?She did have recent PEs and an echo that demonstrated right heart strain, will place her on a heparin drip, hemoglobin is back up to 8.2 ? Fecal occult is pending ?Continued left pleural effusion, may need to thoracentesis in the future ? Continue pressors wean as able ? Continue with treatments and steroids 2.? CAD status post stent/HTN/HLD/chronic diastolic CHF/paroxysmal A-fib ? Can continue with aspirin via G-tube as well as Lipitor ? Blood pressures are stable but low, will hold her blood pressure medication for now ?We will hold her diuretics but can resume amiodarone when verified 3.? Hypothyroidism ? Stable ? Continue with Synthroid when verified 4.? Severe chronic protein calorie malnutrition ? Continue with nutritional evaluation 5.? GERD ? Stable ? Continue with PPI DVT: Heparin drip Charges/Coding Visit Charges Inpatient E&M: 92393 Subs Hosp L2
[2022-12-19] MEDS: Vancomycin IV 500 MG/100 ML BAG 100 MG IV (09:50)
[2022-12-19 16:55] LABS: Partial Thromboplast Time 40.8 Seconds (24.1-36.2)
[2022-12-19 22:11] LABS: Vancomycin, Trough Level 8.9 ug/mL (5.0-15.0)
[2022-12-19] MEDS: Vancomycin IV 1,000 MG/200 ML BAG 200 MG IV (22:25)
--- NOTE | 2022-12-19 22:26 | PHA.PHARE_ITS ---
Consult Pharmacy has been consulted to manage selected antiobiotic: Vancomycin Type of Consult: Follow-up Prior Doses of Antibiotics Received/Current Regimen: Medications Vancomycin HCl (Vancomycin) 1,000 mg in 200 mls @ 200 mls/hr IV Q12H [facility] Last Admin: 12/19/22 22:25 Dose: 200 mls/hr Discontinued Medications Vancomycin HCl () 500 mg in 100 mls @ 100 mls/hr IV Q12H [facility] Last Admin: 12/19/22 10:50 Dose: Infused Labs: Sodium 138 mmol/L (136-145) 12/19/22 06:40 Potassium 4.2 mmol/L (3.5-5.1) 12/19/22 06:40 Chloride 107 mmol/L (98-107) 12/19/22 06:40 Carbon Dioxide 26.0 mmol/L (21.0-32.0) 12/19/22 06:40 Anion Gap 5 (5-15) 12/19/22 06:40 BUN 24 mg/dL (7-18) H 12/19/22 06:40 Creatinine 0.34 mg/dL (0.55-1.02) L 12/19/22 06:40 Est GFR (MDRD) Af Amer 250 mL/min (>60) 12/19/22 06:40 Est GFR (MDRD) Non-Af 206 mL/min (>60) 12/19/22 06:40 BUN/Creatinine Ratio 71.0 RATIO (10-20) H 12/19/22 06:40 Glucose 116 mg/dL (74-106) H 12/19/22 06:40 Vancomycin Trough 8.9 ug/mL (5.0-15.0) 12/19/22 21:22 Weight used for dosin.3 kg Estimated Creatinine Clearance: 102 Goal Trough: 15-20 mcg/mL Pharmacy Plan for Drug Dosing: Vancomycin trough level of 8.9, drawn 11.5 hours post-dose, was lower than the target range of 15-20. Per dosing calculator, a new dose of 1000mg q12h should give an estimated trough of 17.6. Will initiate now, and re-draw a trough prior to the fourth dose of new regimen. Pharmacy Service will continue to monitor and adjust dosing as required. Follow-Up Labs: Trough Vancomycin Labs to be done on [date and time ordered]: 12/21/22 @1000
[2022-12-20] VITALS (32 sets, daily range): BP systolic 84–101; BP diastolic 52–67; PULSE 91–106; RESP 12–42; TEMP 36.1–36.7; O2SAT 89–100; BMI 18.6
[2022-12-20] MEDS: Jevity 1.5 1,000 ML 40 ML GT (03:34)
[2022-12-20] MEDS: Sodium Chloride 0.65% 1 SPRAY SPRAY.BTL 2 SPRAY NASAL (06:35)
[2022-12-20] MEDS: LORazepam 2 MG/ML Syringe 0.5 MG IV ×3 (06:35→22:06)
[2022-12-20] MEDS: 0.9% Saline Lock 10 ML Syringe IV (06:35)
[2022-12-20 06:39] LABS: Absolute Lymphocyte Count 0.25 X10^3/uL (0.83-4.51); Absolute Neutrophil Count 10.4 X10^3/uL (2.0-7.7); Basophil# 0.06 X10^3/uL; Basophil% 0.5 % (0-1); Eosinophil# 0.19 X10^3/uL; Eosinophils% 1.6 % (0-5); Hematocrit 23.4 % (37-47); Hemoglobin 6.7 g/dL (12.0-15.0); Lymphocyte # 0.25 X10^3/ul (0.83-4.51); Lymphocyte % 2.1 % (19-41); Mean Corp Hgb Conc 28.6 g/dL (32-36); Mean Corpuscular Hgb 24.5 pg (27.0-32.0); Mean Corpuscular Volume 85.4 fL (81-99); Mean Platelet Vol. 10.5 fl (6.2-12.0); Monocyte% 6.8 % (0-10); NRBC Flagged by Analyzer 0.2 % (0-5); Neutrophil # 10.36 X10^3/uL (2.7-7.7); Neutrophil % 87.4 % (47-70); POSITIVE DIFFERENTIAL YES; POSITIVE MORPHOLOGY YES; Platelet Count 374 K/mm3 (150-450); RBC Distribution Width CV 31.2 % (11.6-14.6); RBC Distribution Width SD 92.8 fl (35.1-43.9); Red Blood Count 2.74 M/mm3 (4.2-5.4); White Blood Count 11.9 K/mm3 (4.4-11.0)
[2022-12-20 06:41] LABS: Differential Indicated SCAN CRITERIA MET
[2022-12-20 06:46] LABS: Partial Thromboplast Time 67.1 Seconds (24.1-36.2)
[2022-12-20 06:52] LABS: Anion Gap 4 (5-15); BUN 21 mg/dL (7-18); BUN/Creat Ratio 72.4 RATIO (10-20); Calcium,Total 7.6 mg/dL (8.5-10.1); Chloride 106 mmol/L (98-107); Creatinine, Serum 0.29 mg/dL (0.55-1.02); EST Glomerular Filtration Rate 246 mL/min (>60); Est Glom Filt Rate - Afr Amer 298 mL/min (>60); Estimated Creatinine Clearance 123.04 ml/min; Glucose 115 mg/dL (74-106); Potassium 3.9 mmol/L (3.5-5.1); Sodium Level 139 mmol/L (136-145)
--- NOTE | 2022-12-20 07:08 | PN.CC_ITS ---
Assessment & Plan Assessment/Plan (1) Acute and chronic respiratory failure with hypoxia: (2) History of coronary artery stent placement: (3) Bronchiectasis, non-tuberculous: (4) Recurrent pleural effusion: (5) Cachexia: (6) Sepsis due to Streptococcus pneumoniae with acute hypoxic respiratory failure and septic shock: PLAN: Plan RECOMMENDATIONS: 1. Transfuse 1 unit of packed red blood cells 2. Likely discontinue antibiotics once cultures negative 3. Okay to continue tube feeds by PEG 4. Continue aggressive pulmonary toileting 5. Hold on thoracentesis if patient continues to tolerate nasal cannula 6. PT/OT secondary to debility 7. Continue BiPAP with breaks as tolerated. Continue BiPAP with sleep 8. Potential transfer from the intensive care unit IMPRESSIONS: 1. Acute on chronic hypoxic respiratory failure secondary to possible flash pulmonary edema Patient appears to be back to her baseline respiratory status. Patient does have a significant loculated left pleural effusion that will eventually require pleurodesis by CT surgery. Patient may have an element of aspiration adding to complications, which should be improved following PEG. Patient was significant decline over the last 24 to 48 hours prior to admission. Patient has had multiple previous similar episodes. Concern for flash pulmonary edema leading to rapid decompensation and recovery. Patient would benefit from heart rate control and angiolytics. We will transfuse 1 unit of packed red blood cells. Patient may require diuretics following volume. Potential transfer from the intensive care unit later today 2. Recurrent pleural effusion/bronchiectasis/sepsis secondary to pneumococcus Patient appears to be doing okay at this time. Patient still has significant bronchial secretions, but this would be expected. Patient does have adequate blood pressure at this time. Patient may require stress dose steroids if develops hypotension. Blood pressure adequate at this time, but patient has tolerated midodrine in the past. If patient continues to require only nasal cannula, previous effusions have been transudate so likely do not require repeat thoracentesis unless symptomatic. Patient would benefit from an eventual VATS biopsy on the left lung with control of her loculated pleural effusions. 3. Debility/dysphagia Patient with significant cachexia and debility. Patient discussed with GI and has been given a PEG tube to standardize nutrition. Patient will likely need a pleurodesis in the future and may benefit from nutritional optimization. Patient is having some osmotic diarrhea, so Imodium will be given. 4. CAD/COPD/advanced age/anemia/history of iatrogenic pneumothorax Complicates care, management, recovery and prognosis. Patient is not acting like an acute coronary event at this time. Patient may have an element of tachypnea secondary to anemia, but would not transfuse at this time. Subjective Subjective Patient did okay overnight. Patient has been tolerating her tube feeds. Patient did wear BiPAP overnight and tolerated this well. Patient is not reporting any pain this morning. No active blood loss has been reported Objective Data Objective Data Vital Signs: Vital Signs Temp Pulse Resp BP Pulse Ox O2 Del Method O2 Flow Rate 36.5 C L 99 34 H 93/58 L 98 Nasal Cannula 5 12/20/22 03:00 12/20/22 07:00 12/20/22 07:00 12/20/22 07:00 12/20/22 07:00 12/20/22 07:00 12/20/22 07:00 FiO2 40 12/20/22 06:00 Oxygen Flow Rate (L/min) 5 Oxygen Delivery Method Nasal Cannula Weight: 40.3 kg Body Mass Index (BMI) 18.6 Intake & Output: Intake and Output for Last 24 Hours 12/18/22 12/19/22 12/20/22 23:59 23:59 23:59 Intake Total 1645 / 1645 1456.10 / 1456.10 1088.64 / 1088.64 Output Total 300 / 300 250 / 400 150 / 150 Balance 1345 / 1345 1206.10 / 1056.10 938.64 / 938.64 Medical Nutrition Assessment Dietitian: Malnutrition Criteria Met Start: 12/18/22 15:10 Freq: Status: Active Protocol: Document 12/19/22 10:10 JAYCE (Rec: 12/19/22 10:10 [id number]) Nutrition Malnutrition Evidence of Malnutrition Exists Yes Malnutrition (severe): Chronic Evidenced By Suboptimal Energy Intake ( Severe),Weight Loss (Severe), Physical Changes (Severe) Clinical Problem Chronic Disease or Condition Related Malnutrition Etiology severe related to inadequate energy intake Signs/Symptoms as 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 Status Active Problem Biting/Chewing Difficulty Etiology swallowing related to dysphagia Signs/Symptoms as evidenced by [facility] altered diet prior to adm Status Active Problem Recommendation Dietitian Recommendations/Changes Will continue Jevity 1.5 via PEG at goal rate 40 ml/hr w/ 120 ml water flush every 4 hours to provide ~ 1440 greyson/ 61 gm pro/ 1449 ml free water/ day. 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 Lab / Micro Data Attestation: I reviewed the patient's lab results. Result Diagrams: 12/20/22 06:30 12/20/22 06:30 Labs: Laboratory Results - last 24 hr 12/19/22 06:40: WBC 13.7 H, RBC 3.32 L, Hgb 8.2 L, Hct 28.9 L, MCV 87.0, MCH 24.7 L, MCHC 28.4 L, RDW Std Deviation Not Reportable, RDW Coeff of Angie Not Reportable, Plt Count 382, MPV 10.3, Immature Gran % (Auto) 1.000 H, Neut % (Auto) 89.1 H, Lymph % (Auto) 1.7 L, [place] % (Auto) 5.9, Eos % (Auto) 1.7, Baso % (Auto) 0.6, Absolute Neuts (auto) 12.2 H, Absolute Lymphs (auto) 0.24 L, Nucleated RBC % 0.1, Differential Comment SCANNED, Polychromasia 1+, Hypochro masia 1+, Anisocytosis 2+, Microcytosis 1+, Macrocytosis 1+, Acanthocytes (Spur) 1+ 12/19/22 06:40: Sodium 138, Potassium 4.2, Chloride 107, Carbon Dioxide 26.0, Anion Gap 5, BUN 24 H, Creatinine 0.34 L, Estim Creat Clear Calc 102.34, Est GFR (MDRD) Af Amer 250, Est GFR (MDRD) Non-Af 206, BUN/Creatinine Ratio 71.0 H, Glucose 116 H, Calcium 7.9 L 12/19/22 06:40: APTT Cancelled 12/19/22 08:50: APTT 42.5 H 12/19/22 16:30: APTT 40.8 H 12/19/22 21:22: Vancomycin Trough 8.9 12/19/22 23:25: APTT 49.0 H 12/20/22 06:30: APTT 67.1 H 12/20/22 06:30: WBC 11.9 H, RBC 2.74 L, Hgb 6.7 L, Hct 23.4 L, MCV 85.4, MCH 24.5 L, MCHC 28.6 L, RDW Std Deviation 92.8 H, RDW Coeff of Angie 31.2 H, Plt Count 374, MPV 10.5, Immature Gran % (Auto) 1.600 H, Neut % (Auto) 87.4 H, Lymph % (Auto) 2.1 L, [place] % (Auto) 6.8, Eos % (Auto) 1.6, Baso % (Auto) 0.5, Absolute Neuts (auto) 10.4 H, Absolute Lymphs (auto) 0.25 L, Nucleated RBC % 0.2 12/20/22 06:30: Sodium 139, Potassium 3.9, Chloride 106, Carbon Dioxide 29.0, Anion Gap 4 L, BUN 21 H, Creatinine 0.29 L, Estim Creat Clear Calc 123.04, Est GFR (MDRD) Af Amer 298, Est GFR (MDRD) Non-Af 246, BUN/Creatinine Ratio 72.4 H, Glucose 115 H, Calcium 7.6 L Rhythm Strip Rhythm Strip: Sinus Rhythm Rate: 93 Ectopy: None Physical Exam Const alert and oriented x3 Constitutional Narrative: Patient breathing comfortably on nasal cannula General Appearance: cooperative, comfortable and frail HEENT normocephalic, head/scalp atraumatic and moist oral mucous membranes Eyes PERRL and EOMs intact bilaterally Neck no lymphadenopathy and supple General: trachea midline Lymph Lymphatic: no lymphadenopathy noted Resp Auscultation: diminished lung sounds; Negative for rales, rhonchi or wheezes Cardio regular rate, regular rhythm, S1 normal heart sound, S2 normal heart sound and no murmurs GI normal to inspection, nondistended, normoactive bowel sounds, soft to palpation, non-tender and non-distended Inspection: GI tube present Extremity normal to inspection, full ROM, normal capillary refill and no clubbing, cyanosis or edema Skin no rashes or lesions noted Skin Narrative: Significant dermal atrophy noted General Skin Exam: no breakdown Neuro CN's II-XII intact bilaterally, moves all extremities, no focal motor deficits and no sensory deficits noted Psych thought process normal and cooperative Appearance: appropriate Charges/Coding Visit Charges Inpatient E&M: 83894 Subs Hosp L3
--- NOTE | 2022-12-20 07:11 | EX.PCM.CON.G ---
HPI Consult Data Date of Consult: 12/21/22 HPI Narrative Reason for Consultation: Anemia HPI Narrative: LOUISE ROSALES, is a 67 F who presented with worsening respiratory failure to the ED. She has a history of chronic respiratory failure with hypoxia, atrial fibrillation (on amiodarone and Eliquis), COPD, coronary artery disease and recent diagnosis of pneumonia on chest x-ray at her nursing facility.? Patient is a resident of [facility].? She was diagnosed with pneumonia on Wednesday (3 days ago) and was started on Levaquin.? This morning she was found to be 70% on 5 L and was placed on her BiPAP.? She went up to 86%.? EMS was called and she was placed on a nonrebreather with improvement of her O2 saturation.? Patient states she has been feeling more short of breath since diagnosed with pneumonia.? Chart review shows that patient was admitted from 11/20 to 12/12 for septic shock due to Streptococcus pneumonia with acute hypoxic respiratory failure.? She underwent a right thoracentesis on 11/26/2022, was diagnosed with a PE and started on Eliquis and had a PEG tube placed during this hospitalization.? She was discharged on 3 L of oxygen. She was transferred to the ICU for acute on chronic respiratory failure and worsening left-sided pleural effusion. She has been receiving supplemental oxygen. At this time she is on 2 L of oxygen which is her baseline. I have been consulted secondary to worsening anemia. Her hemoglobin dropped down to 6.7. Her baseline runs in between 8 and 9. She has been on a heparin drip as Eliquis has been held. [facility] Medical History Acute and chronic respiratory failure with hypoxia Alcohol abuse Angioedema Anxiety Atherosclerotic heart disease of [place] coronary artery without angina pectoris Bilateral pleural effusion Bronchiectasis, non-tuberculous Cachexia Congestive heart failure (CHF) Contusion of right lower leg, initial encounter COPD (chronic obstructive pulmonary disease) Edema of right lower extremity Elevated transaminase level Former smoker GERD (gastroesophageal reflux disease) History of non-ST elevation myocardial infarction (NSTEMI) (06/18/20) Hypothyroidism Iatrogenic pneumothorax (06/17/22) Iron deficiency anemia Laceration without foreign body, right lower leg, initial encounter Leg wound, right Myocardial infarct Non-healing ulcer of ankle with fat layer exposed Pericardial effusion Pneumothorax Recurrent pleural effusion Restrictive pericarditis Secondary pulmonary arterial hypertension Sepsis due to Streptococcus pneumoniae with acute hypoxic respiratory failure and septic shock Severe malnutrition Syncope (06/17/22) Ulcer of right lower extremity with fat layer exposed Home Medications albuterol sulfate 90 mcg/actuation aerosol inhaler 2 puff inhalation Q4H PRN PRN Bronchodialation 09/07/16 [History Last Taken 06/17/22] omeprazole 20 mg capsule,delayed release 40 mg PO DAILY GERD 09/07/16 [History Last Taken 06/17/22] lorazepam 0.5 mg tablet 0.5 mg PO BID PRN PRN Anxiety 09/26/16 [History Last Taken 06/17/22] ascorbic acid (vitamin C) 500 mg chewable tablet 500 mg PO BIDCM supplement ##0 06/20/20 [Rx Last Taken 06/16/22] budesonide 180 mcg/actuation breath activated powder inhaler 1 inh inhalation BID COPD 02/11/21 [History Last Taken 06/17/22] montelukast 10 mg tablet 10 mg PO DAILY Breathing 02/11/21 [History Last Taken 06/16/22] vitamin B complex (B Complex-Vitamin B12 tablet) 1 tab PO DAILY Supplement 02/11/21 [History Last Taken 06/17/22] colchicine 0.6 mg tablet 0.6 mg PO DAILY gout #30 tabs 01/14/22 [Rx Last Taken 06/16/22] levothyroxine 88 mcg tablet 88 mcg PO MOTUWETHFRSA Thyroid 01/20/22 [History Last Taken 06/17/22] potassium chloride 10 mEq tablet,extended release 60 meq PO BID Supplement 01/20/22 [History Last Taken 06/17/22] acetaminophen 500 mg tablet 1,000 mg PO Q6H PRN Pain 06/17/22 [History Last Taken 06/16/22] guaifenesin 1,200 mg tablet, extended release 12 hr (Mucinex) 1,200 mg PO BID CONGESTION 06/17/22 [History Last Taken 06/17/22] levothyroxine 88 mcg tablet 132 mcg PO GEORGES Thyroid 06/17/22 [History Last Taken 06/14/22] multivitamin 1 tab PO DAILY supplement 07/08/22 [History Last Taken Unknown] bumetanide 1 mg tablet 1 mg PO DAILY water pill #90 tabs 09/21/22 [Rx Last Taken Unknown] alendronate 70 mg tablet 1 tablet PO DAILY Bone health 10/01/22 [History Last Taken 11/05/22 06:00] amiodarone 200 mg tablet 200 mg PO DAILY Heart Rhythm 12/20/22 [History Last Taken Unknown] apixaban 5 mg tablet (Eliquis) 5 mg PO BID Blood thinner afib 12/20/22 [History Last Taken Unknown] aspirin 81 mg tablet,delayed release 81 mg PO DAILY Heart health 12/20/22 [History Last Taken Unknown] atorvastatin 40 mg tablet 40 mg PO QHS Cholestrol 12/20/22 [History Last Taken Unknown] clopidogrel 75 mg tablet 75 mg PO DAILY Blood thinner 12/20/22 [History Last Taken Unknown] ipratropium 20 mcg-albuterol 100 mcg/actuation mist for inhalation 1 puff inhalation Q4H Breathing 12/20/22 [History Last Taken Unknown] metoprolol tartrate 25 mg tablet 12.5 mg PO BID Blood pressure 12/20/22 [History Last Taken Unknown] spironolactone 25 mg tablet 25 mg PO DAILY Blood pressure 12/20/22 [History Last Taken Unknown] Allergy/AdvReac Type Severity Reaction Status Date / Time amoxicillin [From Augmentin] Allergy Rash Verified 11/19/22 18:15 clavulanic acid Allergy Rash Verified 11/19/22 18:15 [From Augmentin] doxycycline Allergy Rash Verified 11/19/22 18:15 tiotropium AdvReac Unknown PT UNSURE Verified 11/19/22 18:15 OF REACTION budesonide [From Symbicort] AdvReac high Verified 11/19/22 18:15 feeling bumetanide AdvReac PT UNSURE Verified 11/19/22 18:15 OF REACTION cefdinir AdvReac Bleeding Verified 11/19/22 18:15 clindamycin AdvReac Abd Verified 11/19/22 18:15 cramps/diarrhea fluticasone [From Flonase] AdvReac HEADACHES Verified 11/19/22 18:15 formoterol [From Symbicort] AdvReac HIGH Verified 11/19/22 18:15 FEELING furosemide AdvReac NEEDS Verified 11/19/22 13:12 FOLLOW-UP spironolactone AdvReac NEEDS Verified 11/19/22 13:12 FOLLOW-UP umeclidinium AdvReac Shortness Verified 11/19/22 13:12 of breath Family History Mother Colon cancer Father Heart disease Surgical History History of coronary artery stent placement (06/18/20) History of right and left heart catheterization (05/01/20) History of thoracentesis (06/17/22) Social History Smoking Status: Former smoker alcohol intake: current alcohol intake frequency: holidays/special occasions only substance use type: does not use caffeine: Yes Type: coffee Number of servings: 1 ROS Constitutional Constitutional: Reports fatigue; Denies chills, fever(s) or malaise Eyes Eyes: Denies blurry vision ENT HEENT: Denies headache(s) or nasal discharge Cardiovascular Cardiovascular: Denies chest pain, dyspnea on exertion or syncope Respiratory/Chest Respiratory/Chest: Reports cough and shortness of breath at rest; Denies productive cough or shortness of breath with exertion Gastrointestinal Gastrointestinal: Denies constipation, diarrhea, nausea or vomiting Genitourinary Genitourinary: Denies dysuria Neurologic Neurologic: Denies focal weakness, numbness or tremor(s) Psychiatric Psychiatric: Denies anxiety or depression Physical Exam Narrative General: Alert, Oriented x3, Cooperative, mild respiratory distress HEENT: Atraumatic, PERRLA, EOMI, Normocephalic Oral: Moist Mucosa Neck: Supple, No JVD Lungs: Diminished, Normal air movement, No rhonchi, No wheeze, No rales, tachypnea Cardiovascular: Tachycardic stroke team, Regular Rhythm, Normal S1, Normal S2, No murmurs Abdomen: Soft, Non Tender, Non-Distended, No Hepato-splenomegaly, PEG tube in place Extremities: Right foot edema, Capillary Refill Less than 3 Seconds Skin: No rashes, No breakdown Musculoskeletal: No Tenderness to Palpation of Joints or Extremities Neurological: Motor Exam 5/5 strength throughout, Sensory exam intact to light touch and pain Psych/Mental Status: Normal Affect, Appropriate Medical Records Data Medical Nutrition Assessment Dietitian: Malnutrition Criteria Met Start: 12/18/22 15:10 Freq: Status: Active Protocol: Document 12/19/22 10:10 JAYCE (Rec: 12/19/22 10:10 SLA [id number]) Nutrition Malnutrition Evidence of Malnutrition Exists Yes Malnutrition (severe): Chronic Evidenced By Suboptimal Energy Intake ( Severe),Weight Loss (Severe), Physical Changes (Severe) Clinical Problem Chronic Disease or Condition Related Malnutrition Etiology severe related to inadequate energy intake Signs/Symptoms as evidenced by <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 Status Active Problem Biting/Chewing Difficulty Etiology swallowing related to dysphagia Signs/Symptoms as evidenced by [facility] altered diet prior to adm Status Active Problem Recommendation Dietitian Recommendations/Changes Will continue Jevity 1.5 via PEG at goal rate 40 ml/hr w/ 120 ml water flush every 4 hours to provide ~ 1440 greyson/ 61 gm pro/ 1449 ml free water/ day. 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 Lab / Micro Data Result Diagrams: 12/21/22 04:31 12/21/22 04:31 Labs: Laboratory Results - last 24 hr 12/18/22 10:10: Crossmatch See Detail 12/20/22 06:30: Hypochromasia 2+, Anisocytosis 3+, Microcytosis 1+, Macrocytosis 1+ 12/20/22 13:20: APTT 57.7 H 12/21/22 04:31: APTT 53.9 H 12/21/22 04:31: WBC 10.1, RBC 3.24 L, Hgb 8.2 L, Hct 27.5 L, MCV 84.9, MCH 25.3 L, MCHC 29.8 L, RDW Std Deviation 85.6 H, RDW Coeff of Angie 28.3 H, Plt Count 310, MPV 10.4, Immature Gran % (Auto) 2.400 H, Neut % (Auto) 84.7 H, Lymph % (Auto) 2.9 L, [place] % (Auto) 8.2, Eos % (Auto) 1.1, Baso % (Auto) 0.7, Absolute Neuts (auto) 8.5 H, Absolute Lymphs (auto) 0.29 L, Nucleated RBC % 0.3, Polychromasia 1+, Hypochromasia 1+, Anisocytosis 3+, Microcytosis 1+, Macrocytosis 1+ 12/21/22 04:31: Sodium 138, Potassium 3.6, Chloride 107, Carbon Dioxide 26.0, Anion Gap 5, BUN 18, Creatinine 0.24 L, Estim Creat Clear Calc 148.68, Est GFR (MDRD) Af Amer 362, Est GFR (MDRD) Non-Af 299, BUN/Creatinine Ratio 73.5 H, Glucose 128 H, Calcium 7.3 L Micro: Microbiology 12/18/22 09:10 Blood Culture (Wb) #2 - Anticubital Left Blood Culture - Preliminary No growth in 48 hours. 12/18/22 09:10 Blood Culture (Wb) - Anticubital Right Blood Culture - Preliminary No growth in 48 hours. 12/20/22 08:30 Stool Stool Occult Blood (SAMANTHA) - Final Occult Blood Positive Rhythm Strip Rhythm Strip: Sinus Rhythm Rate: 93 Ectopy: None Assessment & Plan Assessment/Plan (1) Sepsis due to Streptococcus pneumoniae with acute hypoxic respiratory failure and septic shock: (2) Acute and chronic respiratory failure with hypoxia: (3) Recurrent pleural effusion: (4) Anemia: PLAN: Plan #Acute on chronic hypoxic respiratory failure due to recurrent right pleural effusion and community acquired pneumonia as well as PE s/p right thoracentesis on 11/26/2022 with removal of 525 mls of stephen-colored fluid. Blood cultures were positive for strep pneumonia. She was initially intubated in the ICU. She was started on IV meropenem. She is also s/p bronchoscopy cultures of which showed no growth. She has had a complicated hospital because. now on 2L of oxygen 2D echo showed severely dilated RV with moderate RV systolic dysfunction and pulmonary artery systolic pressure of 55-60mmhg. #Pulmonary embolism CTA of the chest showed PE with heart strain. It was a subsegmental PE in the right upper lobe She was on Eliquis. She is on heparin drip. She has a history of nose bleed and hematuria havent recurred #Anemia Hold the heparin drip for EGD today Hold tube feedings for EGD today #Hematuria: resolved. Eliquis has been resumed and it hasn't recurred. #Hyponatremia sodium is 128. May be due to fluid overload as her oxygen requirements is increasing will diurese with IV lasix due to suspected fluid overload trend sodium #Moderate pulmonary hypertension: pulmonary artery systolic pressure is 55-60%, as above. Likely contributing to her respiratory failure. #CAD s/p stents: On aspirin as well as Lipitor and Plavix. #Hyperlipidemia: On statin #Paroxysmal A-fib: On amiodarone; on eliquis #Oropharyngeal dysphagia Has PEG tube in place. Barium swallow showed moderate oropharyngeal disease patient with dysphagia retention. Currently on a modified diet. Speech therapy and on tube feed for supplementation #Hypothyroidism: On Synthroid #Severe protein calorie malnutrition: On tube feeds and a modified diet. Nutrition on board. #GERD: On PPI DVT prophylaxis:eliquis Disposition: awaiting placement. Charges/Coding Visit Charges Inpatient E&M: 56555 Init Hosp L3
[2022-12-20 07:12] LABS: Anisocytosis 3+; Hypochromasia 2+; Macrocytosis 1+; Microcytosis 1+
[2022-12-20] MEDS: Ipratropium 0.5 MG/2.5 ML SOLUTION INHALATION ×4 (07:48→19:27)
--- NOTE | 2022-12-20 09:59 | PCM.PN.HOSP ---
Subjective Subjective Had to be placed on BiPAP overnight but is back to nasal cannula today. She tolerating tube feeds, her hemoglobin did drop so she is being transfused 1 unit Objective Data Objective Data Vital Signs: Vital Signs Temp Pulse Resp BP Pulse Ox O2 Del Method O2 Flow Rate 97.2 F L 104 H 36 H 93/52 L 92 Nasal Cannula 4 12/20/22 09:30 12/20/22 09:30 12/20/22 09:30 12/20/22 09:30 12/20/22 09:30 12/20/22 09:30 12/20/22 09:30 FiO2 40 12/20/22 06:00 Oxygen Flow Rate (L/min) 4 Oxygen Delivery Method Nasal Cannula Weight: 88 lb 13.541 oz Body Mass Index (BMI) 18.6 Intake & Output: Intake and Output for Last 24 Hours 12/19/22 12/20/22 12/21/22 03:59 03:59 03:59 Intake Total 1683.13 / 2295.13 2457.86 / 2457.86 48.75 / 48.75 Output Total 300 / 400 400 / 400 0 / 0 Balance 1383.13 / 1895.13 2057.86 / 2057.86 48.75 / 48.75 Medical Nutrition Assessment Dietitian: Malnutrition Criteria Met Start: 12/18/22 15:10 Freq: Status: Active Protocol: Document 12/19/22 10:10 JAYCE (Rec: 12/19/22 10:10 JAYCE [id number]) Nutrition Malnutrition Evidence of Malnutrition Exists Yes Malnutrition (severe): Chronic Evidenced By Suboptimal Energy Intake ( Severe),Weight Loss (Severe), Physical Changes (Severe) Clinical Problem Chronic Disease or Condition Related Malnutrition Etiology severe related to inadequate energy intake Signs/Symptoms as evidenced by <50% po intake x 5 days recovery 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 Status Active Problem Biting/Chewing Difficulty Etiology swallowing related to dysphagia Signs/Symptoms as evidenced by [facility] [place] altered diet prior to adm Status Active Problem Recommendation Dietitian Recommendations/Changes Will continue Jevity 1.5 via PEG at goal rate 40 ml/hr w/ 120 ml water flush every 4 hours to provide ~ 1440 greyson/ 61 gm pro/ 1449 ml free water/ day. When medically able, rec BRUCE to liberal Regular - consistency per RAMP BOSS w/ ONS at meals or medpass for increased nutrition if consumed. Lab / Micro Data Result Diagrams: 12/20/22 06:30 12/20/22 06:30 Labs: Laboratory Results - last 24 hr 12/18/22 10:10: Crossmatch See Detail 12/19/22 16:30: APTT 40.8 H 12/19/22 21:22: Vancomycin Trough 8.9 12/19/22 23:25: APTT 49.0 H 12/20/22 06:30: APTT 67.1 H 12/20/22 06:30: WBC 11.9 H, RBC 2.74 L, Hgb 6.7 L, Hct 23.4 L, MCV 85.4, MCH 24.5 L, MCHC 28.6 L, RDW Std Deviation 92.8 H, RDW Coeff of Angie 31.2 H, Plt Count 374, MPV 10.5, Immature Gran % (Auto) 1.600 H, Neut % (Auto) 87.4 H, Lymph % (Auto) 2.1 L, [place] % (Auto) 6.8, Eos % (Auto) 1.6, Baso % (Auto) 0.5, Absolute Neuts (auto) 10.4 H, Absolute Lymphs (auto) 0.25 L, Nucleated RBC % 0.2, Hypochromasia 2+, Anisocytosis 3+, Microcytosis 1+, Macrocytosis 1+ 12/20/22 06:30: Sodium 139, Potassium 3.9, Chloride 106, Carbon Dioxide 29.0, Anion Gap 4 L, BUN 21 H, Creatinine 0.29 L, Estim Creat Clear Calc 123.04, Est GFR (MDRD) Af Amer 298, Est GFR (MDRD) Non-Af 246, BUN/Creatinine Ratio 72.4 H, Glucose 115 H, Calcium 7.6 L Micro: Microbiology 12/20/22 08:30 Stool Stool Occult Blood (SAMANTHA) - Final Occult Blood Positive Rhythm Strip Rhythm Strip: Sinus Rhythm Rate: 93 Ectopy: None Physical Exam Narrative General: Alert, Oriented x3, Cooperative, mild respiratory distress HEENT: Atraumatic, PERRLA, EOMI, Normocephalic Oral: Moist Mucosa Neck: Supple, No JVD Lungs: Diminished, Normal air movement, No rhonchi, No wheeze, No rales, tachypnea Cardiovascular: Tachycardic stroke team, Regular Rhythm, Normal S1, Normal S2, No murmurs Abdomen: Soft, Non Tender, Non-Distended, No Hepato-splenomegaly, PEG tube in place Extremities: Right foot edema, Capillary Refill Less than 3 Seconds Skin: No rashes, No breakdown Musculoskeletal: No Tenderness to Palpation of Joints or Extremities Neurological: Motor Exam 5/5 strength throughout, Sensory exam intact to light touch and pain Psych/Mental Status: Normal Affect, Appropriate Assessment & Plan Assessment/Plan (1) Acute and chronic respiratory failure with hypoxia: PLAN: Plan 1.? Acute on chronic hypoxic respiratory failure secondary to continued left pleural effusion and healthcare associated versus aspiration pneumonia in the setting of recent PEs and septic shock for pneumococcal pneumonia/COPD/acute blood loss anemia ? Blood cultures are pending ? We will continue with broad spectrum antibiotics ?We will hold off on diuretics for the moment but will also not provide any further fluids given her slight increase in her BNP ?She did have recent PEs and an echo that demonstrated right heart strain, will place her on a heparin drip, is down to less than 7, will transfuse 1 unit ? Fecal occult is positive, will consult gastroenterology for scope ?Continued left pleural effusion, may need to thoracentesis in the future ? Continue pressors wean as able ? Continue with treatments and steroids 2.? CAD status post stent/HTN/HLD/chronic diastolic CHF/paroxysmal A-fib ? Can continue with aspirin via G-tube as well as Lipitor ? Blood pressures are stable but low, will hold her blood pressure medication for now ?We will hold her diuretics but can resume amiodarone when verified 3.? Hypothyroidism ? Stable ? Continue with Synthroid when verified 4.? Severe chronic protein calorie malnutrition ? Continue with nutritional evaluation 5.? GERD ? Stable ? Continue with PPI DVT: Heparin drip Charges/Coding Visit Charges Inpatient E&M: 77654 Subs Hosp L2
[2022-12-20] MEDS: HEPARIN/D5w 25,000 UNITS 25,000 UNITS/250 ML IV.SOLN. 7.5 UNITS CONT INF (11:27)
[2022-12-20] MEDS: Vancomycin IV 1,000 MG/200 ML BAG 200 MG IV ×2 (12:12→22:44)
[2022-12-20 13:37] LABS: Partial Thromboplast Time 57.7 Seconds (24.1-36.2)
[2022-12-20] MEDS: Morphine 2 MG/ML Syringe IV (22:06)
[2022-12-21] VITALS (38 sets, daily range): BP systolic 87–149; BP diastolic 56–78; PULSE 90–116; RESP 12–38; TEMP 36.3–37.3; O2SAT 81–100; BMI 20.1
[2022-12-21 04:57] LABS: Anion Gap 5 (5-15); BUN 18 mg/dL (7-18); BUN/Creat Ratio 73.5 RATIO (10-20); Calcium,Total 7.3 mg/dL (8.5-10.1); Chloride 107 mmol/L (98-107); Creatinine, Serum 0.24 mg/dL (0.55-1.02); EST Glomerular Filtration Rate 299 mL/min (>60); Est Glom Filt Rate - Afr Amer 362 mL/min (>60); Estimated Creatinine Clearance 148.68 ml/min; Glucose 128 mg/dL (74-106); Potassium 3.6 mmol/L (3.5-5.1); Sodium Level 138 mmol/L (136-145)
[2022-12-21 05:05] LABS: Partial Thromboplast Time 53.9 Seconds (24.1-36.2)
[2022-12-21] MEDS: LORazepam 2 MG/ML Syringe 0.5 MG IV ×3 (05:06→22:46)
[2022-12-21] MEDS: 0.9% Saline Lock 10 ML Syringe IV ×4 (05:06→22:46)
[2022-12-21] MEDS: Sodium Chloride 0.65% 1 SPRAY SPRAY.BTL 2 SPRAY NASAL ×2 (05:10→18:23)
[2022-12-21 05:16] LABS: Absolute Lymphocyte Count 0.29 X10^3/uL (0.83-4.51); Absolute Neutrophil Count 8.5 X10^3/uL (2.0-7.7); Basophil# 0.07 X10^3/uL; Basophil% 0.7 % (0-1); Eosinophil# 0.11 X10^3/uL; Eosinophils% 1.1 % (0-5); Hematocrit 27.5 % (37-47); Hemoglobin 8.2 g/dL (12.0-15.0); Lymphocyte # 0.29 X10^3/ul (0.83-4.51); Lymphocyte % 2.9 % (19-41); Mean Corp Hgb Conc 29.8 g/dL (32-36); Mean Corpuscular Hgb 25.3 pg (27.0-32.0); Mean Corpuscular Volume 84.9 fL (81-99); Mean Platelet Vol. 10.4 fl (6.2-12.0); Monocyte# 0.83 X10^3/uL; Monocyte% 8.2 % (0-10); NRBC Flagged by Analyzer 0.3 % (0-5); Neutrophil # 8.53 X10^3/uL (2.7-7.7); Neutrophil % 84.7 % (47-70); POSITIVE DIFFERENTIAL YES; POSITIVE MORPHOLOGY YES; Platelet Count 310 K/mm3 (150-450); RBC Distribution Width CV 28.3 % (11.6-14.6); RBC Distribution Width SD 85.6 fl (35.1-43.9); Red Blood Count 3.24 M/mm3 (4.2-5.4); White Blood Count 10.1 K/mm3 (4.4-11.0)
[2022-12-21 05:19] LABS: Differential Indicated SCAN CRITERIA MET
[2022-12-21] MEDS: Jevity 1.5 1,000 ML 40 ML GT (05:56)
[2022-12-21 06:20] LABS: Anisocytosis 3+; Hypochromasia 1+; Macrocytosis 1+; Microcytosis 1+; Polychromasia 1+
[2022-12-21] MEDS: Ipratropium 0.5 MG/2.5 ML SOLUTION INHALATION ×3 (06:58→18:45)
--- NOTE | 2022-12-21 07:43 | PCM.PN.INT ---
Assessment & Plan Assessment/Plan (1) Acute and chronic respiratory failure with hypoxia: PLAN: Plan RECOMMENDATIONS: 1. Continue to wean supplemental oxygen to maintain saturations at or above 90%. 2. Continue empiric antimicrobials, while awaiting finalized infectious work-up. 3. Continue scheduled Atrovent aerosols. 4. Consider diuresis if the patient fails to improve from a respiratory perspective. 5. Encourage incentive spirometer use and mobilize patient as tolerated. 6. Recommend BiPAP therapy with sleep. IMPRESSIONS: 1. Acute on chronic hypoxemic respiratory failure Most likely secondary to flash pulmonary edema. The patient has a known history of underlying bronchiectasis and recurrent pleural effusion, which according to documentation, was previously felt to be cardiac in etiology.? The patient did undergo a VATS and pleurodesis on the right and in 2019 had a Pleurx catheter on the left side in 2019.? The patient has had discussion with her primary brisket puller, Dr. Bernard Mcguire, regarding the feasibility of a left-sided pleurodesis. Given concerns for potential superimposed infection as well, plan to continue empiric antimicrobials, while awaiting finalized culture data. Diuresis can be considered if the patient's oxygenation status necessitates. 2.??History of subsegmental PE with RV dysfunction and pulmonary hypertension Continue systemic anticoagulation with heparin as ordered.? Okay to resume Eliquis from my perspective at discharge. 3.??COPD with chronic bronchitis Continue scheduled Atrovent aerosols.? 4.??Pulmonary cachexia/hypothyroidism/GERD Complicates care, management, recovery and prognosis.? Continue supportive measures as noted above including tube feeds as tolerated. This note was generated with [employer] dictation software. It may contain incorrect words, spelling, and punctuation that were not noted in checking the note before signing. Subjective Subjective The patient was seen and examined at the bedside this morning. Events from the last 24 hours have been reviewed. The patient is currently afebrile, hemodynamically stable and maintaining appropriate oxygen saturations on 3 L/min via nasal cannula. The patient is currently documented to be overall net +6.2 L for the hospitalization. Hemoglobin is stable at 8.2 g/dL. The patient denies any resting shortness of breath. Objective Data Objective Data The patient's most recent lab work, culture data and imaging studies have all been personally reviewed. Surface echocardiogram from November 2022 demonstrated normal LV size and function with an ejection fraction of 70%. Pulmonary artery systolic pressure was estimated to be 55 to 60 mmHg. Sputum culture is pending. Vital Signs: Vital Signs Temp Pulse Resp BP Pulse Ox O2 Del Method O2 Flow Rate 97.5 F L 102 H 25 H 90/62 98 Nasal Cannula 4 12/21/22 04:00 12/21/22 06:59 12/21/22 06:59 12/21/22 06:00 12/21/22 06:59 12/21/22 06:59 12/21/22 06:59 FiO2 40 12/21/22 04:00 Oxygen Flow Rate (L/min) 4 Oxygen Delivery Method Nasal Cannula Weight: 95 lb 14.417 oz Body Mass Index (BMI) 20.1 Intake & Output: Intake and Output for Last 24 Hours 12/19/22 12/20/22 12/21/22 23:59 23:59 23:59 Intake Total 1456.10 / 1456.10 2515.52 / 2635.52 1353 / 1353 Output Total 250 / 400 150 / 150 Balance 1206.10 / 1056.10 2365.52 / 2485.52 1353 / 1353 Medical Nutrition Assessment Dietitian: Malnutrition Criteria Met Start: 12/18/22 15:10 Freq: Status: Active Protocol: Document 12/19/22 10:10 JAYCE (Rec: 12/19/22 10:10 JAYCE [id number]) Nutrition Malnutrition Evidence of Malnutrition Exists Yes Malnutrition (severe): Chronic Evidenced By Suboptimal Energy Intake ( Severe),Weight Loss (Severe), Physical Changes (Severe) Clinical Problem Chronic Disease or Condition Related Malnutrition Etiology severe related to inadequate energy intake Signs/Symptoms as evidenced by <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 Status Active Problem Biting/Chewing Difficulty Etiology swallowing related to dysphagia Signs/Symptoms as evidenced by [facility] altered diet prior to adm Status Active Problem Recommendation Dietitian Recommendations/Changes Will continue Jevity 1.5 via PEG at goal rate 40 ml/hr w/ 120 ml water flush every 4 hours to provide ~ 1440 greyson/ 61 gm pro/ 1449 ml free water/ day. When medically able, rec BRUCE to liberal Regular - consistency per EVALUATOR TRANSFER STUDENTS w/ ONS at meals or medpass for increased nutrition if consumed. Lab / Micro Data Attestation: I reviewed the patient's lab results. Result Diagrams: 12/22/22 04:25 12/22/22 04:25 Labs: Laboratory Results - last 24 hr 12/18/22 10:10: Crossmatch See Detail 12/20/22 13:20: APTT 57.7 H 12/21/22 04:31: APTT 53.9 H 12/21/22 04:31: WBC 10.1, RBC 3.24 L, Hgb 8.2 L, Hct 27.5 L, MCV 84.9, MCH 25.3 L, MCHC 29.8 L, RDW Std Deviation 85.6 H, RDW Coeff of Angie 28.3 H, Plt Count 310, MPV 10.4, Immature Gran % (Auto) 2.400 H, Neut % (Auto) 84.7 H, Lymph % (Auto) 2.9 L, [place] % (Auto) 8.2, Eos % (Auto) 1.1, Baso % (Auto) 0.7, Absolute Neuts (auto) 8.5 H, Absolute Lymphs (auto) 0.29 L, Nucleated RBC % 0.3, Polychromasia 1+, Hypochromasia 1+, Anisocytosis 3+, Microcytosis 1+, Macrocytosis 1+ 12/21/22 04:31: Sodium 138, Potassium 3.6, Chloride 107, Carbon Dioxide 26.0, Anion Gap 5, BUN 18, Creatinine 0.24 L, Estim Creat Clear Calc 148.68, Est GFR (MDRD) Af Amer 362, Est GFR (MDRD) Non-Af 299, BUN/Creatinine Ratio 73.5 H, Glucose 128 H, Calcium 7.3 L Micro: Microbiology 12/18/22 09:10 Blood Culture (Wb) #2 - Anticubital Left Blood Culture - Preliminary No growth in 48 hours. 12/18/22 09:10 Blood Culture (Wb) - Anticubital Right Blood Culture - Preliminary No growth in 48 hours. 12/20/22 08:30 Stool Stool Occult Blood (SAMANTHA) - Final Occult Blood Positive Rhythm Strip Rhythm Strip: Sinus Rhythm Rate: 93 Ectopy: None Physical Exam Const alert and no apparent distress General Appearance: cooperative and frail HEENT normocephalic and head/scalp atraumatic Eyes PERRL, EOMs intact bilaterally and conjunctivae normal Neck supple General: trachea midline Chest inspection of chest normal Resp normal respiratory effort Auscultation: rales left and diminished lung sounds Cardio regular rate and regular rhythm GI normal to inspection, nondistended, normoactive bowel sounds Inspection: GI tube present Extremity no clubbing, cyanosis or edema Skin no rashes or lesions noted Neuro CN's II-XII intact bilaterally and no focal motor deficits Psych cooperative and affect normal Charges/Coding Visit Charges Inpatient E&M: 86257 Subs Hosp L2
--- NOTE | 2022-12-21 09:17 | WOUNDNOTE ---
wound photo: maritza
[2022-12-21] MEDS: Nystatin Powder 15gm Bottle 1 APPLIC TOPICAL ×2 (10:00→20:22)
[2022-12-21 10:54] LABS: Vancomycin, Trough Level 15.9 ug/mL (5.0-15.0)
[2022-12-21] MEDS: Metoclopramide 10 MG/2 ML Vial IV (11:37)
--- NOTE | 2022-12-21 11:43 | CASEMGMT ---
Addendum entered by Denise Sim 12/21/22 11:59: Daphne from TCU reviewed floor and informed no beds open for the next few days and not sure when an opening will happen. Will await determination on acceptance from [facility]. Original Note: Social Work SW handoff from weekend stated to check in with pt and pt son, Damion, on decision for alternative SNF choices. SW to pt room to discuss. Pt of the floor at this time for medical procedure. SW called pt son, Damion. Damion explained had discussed with pt and choices were [facility] and then [facility]. Damion stated had been told by previous SW that TCU may not be able to take due to pt having [place]. Damion requested SW still send referral. SW did send [facility] to [facility] D[facility] informed there are no beds at [facility] right now and unsure when one would be open. ROSMERY updated d/c retail assistant, Emelyn, to send referral to [facility]. ROSMERY also inquired with MD Cerda on ADOD. SW informed pt will likely be medically ready in the next day or two. Plan: TCU vs. [facility] JACOB García
--- NOTE | 2022-12-21 11:59 | CASEMGMT ---
Discharge Planning Referral sent to [facility] via [facility]. Emelyn Ulloa
--- NOTE | 2022-12-21 13:05 | SUR.PREOP ---
PATIENT RESPONDED TO THIS NURSE AND IS AWAKE. FAMILY MEMBERS JUST ARRIVED AT THE BEDSIDE.
--- NOTE | 2022-12-21 14:00 | CASEMGMT ---
Social Work SW informed by lindsay Dunaway/mohamud chemistry research assistant that [facility] has no female beds open at this time. SW attempted to meet with pt in pt room. Pt still off the floor at this time. SW called pt son, Damion, again to discuss and report neither choice able to accept pt at this time. SW received VM. Left messaged with update and requested a phone call back. PLAN: SNF-pending updated choices JACOB García
--- NOTE | 2022-12-21 14:19 | CASEMGMT ---
Discharge Planning [facility] declined d/t no available female bed. Emelyn Ulloa
--- NOTE | 2022-12-21 14:48 | OP.EGD_ITS ---
Patient Name: Kaitlin Everett Procedure Date: 12/21/2022 12:24 PM Date of : 1955 Age: 67 Procedure: Upper GI endoscopy Indications: Epigastric abdominal pain, Iron deficiency anemia Providers: Trevor Carter DO Medicines: Monitored Anesthesia Care Patient Profile: This is a 67 year old female. Refer to note in patient chart for documentation of history and physical. Patient has symptoms of acute epigastric abdominal pain. Complications: No immediate complications. Procedure: Pre-Anesthesia Assessment: - Prior to the procedure, a History and Physical was performed, and patient medications and allergies were reviewed. The patient is competent. The risks and benefits of the procedure and the sedation options and risks were discussed with the patient. All questions were answered and informed consent was obtained. Patient identification and proposed procedure were verified by the physician. Mental Status Examination: alert and oriented. Airway Examination: normal oropharyngeal airway and neck mobility. Respiratory Examination: clear to auscultation. CV Examination: normal. Prophylactic Antibiotics: The patient does not require prophylactic antibiotics. Prior Anticoagulants: The patient has taken no previous anticoagulant or antiplatelet agents. ASA Grade Assessment: II - A patient with mild systemic disease. After reviewing the risks and benefits, the patient was deemed in satisfactory condition to undergo the procedure. The anesthesia plan was to use monitored anesthesia care (MAC). Immediately prior to administration of medications, the patient was re-assessed for adequacy to receive sedatives. The heart rate, respiratory rate, oxygen saturations, blood pressure, adequacy of pulmonary ventilation, and response to care were monitored throughout the procedure. The physical status of the patient was re-assessed after the procedure. After obtaining informed consent, the endoscope was passed under direct vision. Throughout the procedure, the patient's blood pressure, pulse, and oxygen saturations were monitored continuously. The gastroscope was introduced through the mouth, and advanced to the second part of duodenum. The upper GI endoscopy was accomplished without difficulty. The patient tolerated the procedure well. Scope In: 2:19:16 PM Scope Out: 2:27:32 PM Total Procedure Duration Time 0 hours 8 minutes 16 seconds Findings: The examined esophagus was normal. There was evidence of an intact gastrostomy with a patent G-tube present on the greater curvature of the stomach. A single 5 mm bleeding angiodysplastic lesion was found in the gastric body. Coagulation for hemostasis using heater probe was successful. Evidence of a patent Billroth I gastroduodenostomy was found. A gastric pouch 1 cm wide with a normal size was found. The second portion of the duodenum was normal. Impression: - Normal esophagus. - Intact gastrostomy with a patent G-tube present. - A single bleeding angiodysplastic lesion in the stomach. Treated with a heater probe. - Patent Billroth I gastroduodenostomy was found. - Normal second portion of the duodenum. - No specimens collected. Recommendation: - [facility]. - Use Protonix (pantoprazole) 40 mg IV 12hr - Continue present medications. - Colonoscopy in the future when medically stable - Outpatient capsule endoscopy Procedure Code(s): --- Professional --- 77945, Esophagogastroduodenoscopy, flexible, transoral; with control of bleeding, any method CPT copyright 2017 [employer]. All rights reserved. The codes documented in this report are preliminary and upon kiln door repairer review may be revised to meet current compliance requirements. Trevor Carter DO 12/21/2022 2:48:17 PM This report has been signed electronically. Number of Addenda: 0 Note Initiated On: 12/21/2022 12:24 PM
--- NOTE | 2022-12-21 14:49 | OP.CCLET_ITS ---
12/21/2022 Atul Garcia [address] [place] [address] Re : Upper GI endoscopy procedure for Kaitlin Karlos Dear Dr. Garcia This procedure was performed on Wednesday, December 21, 2022. My impressions and recommendations are as follows: Impressions : - Normal esophagus. - Intact gastrostomy with a patent G-tube present. - A single bleeding angiodysplastic lesion in the stomach. Treated with a heater probe. - Patent Billroth I gastroduodenostomy was found. - Normal second portion of the duodenum. - No specimens collected. Recommendations : - [facility]. - Use Protonix (pantoprazole) 40 mg IV 12hr - Continue present medications. - Colonoscopy in the future when medically stable - Outpatient capsule endoscopy My findings are described in the full procedure note, which is enclosed. If I can be of further assistance, please feel free to contact me at . Sincerely, Trevor Carter, 12/21/2022 2:48:17 PM This report has been signed electronically.
--- NOTE | 2022-12-21 15:01 | RAD_ITS ---
INDICATION: SHORTNESS OF BREATH EXAMINATION/TECHNIQUE: X-RAY - portable upright AP chest x-ray COMPARISON: 12/18/2022 FINDINGS: LINES/DEVICES: Stable PEG tube position. LUNGS: Minimal change in the bilateral pleural effusions. Bibasilar airspace disease, mildly increased on the right. Mild progression of left upper lung field diffuse hazy opacities. No vascular congestion. MEDIASTINUM AND CARDIOVASCULAR STRUCTURES: Cardiac silhouette stable within upper normal limits. BONES AND SOFT TISSUES: No acute changes. RAD/Chest 1 View (Portable) IMPRESSION: Increasing airspace disease in the left upper lung field and right lung base with stable bilateral pleural effusions. Electronically Signed: Stephen German MD at 15:32 EDT ,
[2022-12-21] MEDS: Furosemide 40 MG/4 ML Vial IV (15:15)
--- NOTE | 2022-12-21 15:44 | PCM.RX.CS ---
Consult Pharmacy has been consulted to manage selected antiobiotic: Vancomycin Type of Consult: Follow-up Labs: Sodium 138 mmol/L (136-145) 12/21/22 04:31 Potassium 3.6 mmol/L (3.5-5.1) 12/21/22 04:31 Chloride 107 mmol/L (98-107) 12/21/22 04:31 Carbon Dioxide 26.0 mmol/L (21.0-32.0) 12/21/22 04:31 Anion Gap 5 (5-15) 12/21/22 04:31 BUN 18 mg/dL (7-18) 12/21/22 04:31 Creatinine 0.24 mg/dL (0.55-1.02) L 12/21/22 04:31 Est GFR (MDRD) Af Amer 362 mL/min (>60) 12/21/22 04:31 Est GFR (MDRD) Non-Af 299 mL/min (>60) 12/21/22 04:31 BUN/Creatinine Ratio 73.5 RATIO (10-20) H 12/21/22 04:31 Glucose 128 mg/dL (74-106) H 12/21/22 04:31 Vancomycin Trough 15.9 ug/mL (5.0-15.0) H 12/21/22 10:00 Microbiology: Microbiology 12/20/22 08:30 Sputum, Induced/Lukens Gram Stain - Final 12/18/22 09:10 Blood Culture (Wb) #2 - Anticubital Left Blood Culture - Preliminary No growth in 48 hours. 12/18/22 09:10 Blood Culture (Wb) - Anticubital Right Blood Culture - Preliminary No growth in 48 hours. 12/20/22 08:30 Stool Stool Occult Blood (SAMANTHA) - Final Occult Blood Positive Goal Trough: 15-20 mcg/mL Pharmacy Plan for Drug Dosing: VANCOMYCIN LEVEL RECEIVED Current Vancomycin Dose: 1000MG Q12 Number of Doses Received: 6 Vancomycin Level: 15.9 MG/DL Hours Since Last Dose: 11 Renal Function: SCR 0.24, CRCL 46.8 ML/MIN (USING ADJ SCR TO 0.8 MG/DL DUE TO AGE) Renal Function Trend: STABLE Lab/Micro: BLOOD CX-NG, SCX PENDING Vancomycin Plan/Comments: THERAPEUTIC TROUGH CAME BACK THIS MORNING AT 15.9 MG/DL. WILL CONTINUE CURRENT DOSING AND GET A TROUGH IN 2 DAYS. PATIENT WAS IN ENDO FOR PROCEDURE AND NURSE WAS NOT ABLE TO HANG DOSE PRIOR TO PATIENT LEAVING. PATIENT IN NOW BACK IN ICU, RESCHEDULING 1030 DOSE FOR 1600 TODAY. WILL GET TROUGH PRIOR TO 4TH DOSE OF ADJUSTED SCHEDULE. Pending Level: 12/23/22 @ 0330 Pharmacy Service will continue to monitor and adjust dosing as required.
[2022-12-21] MEDS: Vancomycin IV 1,000 MG/200 ML BAG 200 MG IV (15:45)
--- NOTE | 2022-12-21 16:39 | PN_ITS ---
Subjective Subjective Patient seen and examined. She had no active complaints. She denied any chest pain, palpitation, dizziness or shortness of breath. Review of systems otherwise negative. She was mildly tachycardic and also tachypneic. Objective Data Objective Data Vital Signs: Vital Signs Temp Pulse Resp BP Pulse Ox O2 Del Method O2 Flow Rate 99.1 F 109 H 33 H 118/74 98 Bi-pap 10 12/21/22 15:23 12/21/22 15:47 12/21/22 15:47 12/21/22 15:23 12/21/22 15:47 12/21/22 15:23 12/21/22 14:45 FiO2 100 12/21/22 15:47 Oxygen Flow Rate (L/min) 10 Oxygen Delivery Method Bi-pap Weight: 95 lb 14.417 oz Body Mass Index (BMI) 20.1 Intake & Output: Intake and Output for Last 24 Hours 12/19/22 12/20/22 12/21/22 23:59 23:59 23:59 Intake Total 1456.10 / 1456.10 2515.52 / 2635.52 2080.57 / 2080.57 Output Total 250 / 400 150 / 150 Balance 1206.10 / 1056.10 2365.52 / 2485.52 2080.57 / 2080.57 Medical Nutrition Assessment Dietitian: Malnutrition Criteria Met Start: 12/18/22 15:10 Freq: Status: Active Protocol: Document 12/21/22 09:27 [facility] (Rec: 12/21/22 09:27 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 Status Active Problem Biting/Chewing Difficulty Etiology swallowing related to dysphagia Signs/Symptoms as evidenced by [facility] altered diet prior to adm Status Active Problem Recommendation Dietitian Recommendations/Changes When medically able, rec resume Jevity 1.5 via PEG at goal rate 40 ml/hr w/ 120 ml water flush every 4 hours to provide ~ 1440 greyson/ 61 gm pro/ 1449 ml free water/day to meet estimated nutrition needs . When medically able, advance BRUCE to Regular - consistency per SUPERINTENDENT JOB w/ ONS at meals or medpass for increased nutrition if consumed. Rec JEANETTE bid to help w/ wound healing if warranted Lab / Micro Data Result Diagrams: 12/21/22 04:31 12/21/22 04:31 Labs: Laboratory Results - last 24 hr 12/18/22 10:10: Crossmatch See Detail 12/21/22 04:31: APTT 53.9 H 12/21/22 04:31: WBC 10.1, RBC 3.24 L, Hgb 8.2 L, Hct 27.5 L, MCV 84.9, MCH 25.3 L, MCHC 29.8 L, RDW Std Deviation 85.6 H, RDW Coeff of Angie 28.3 H, Plt Count 310, MPV 10.4, Immature Gran % (Auto) 2.400 H, Neut % (Auto) 84.7 H, Lymph % (Auto) 2.9 L, [place] % (Auto) 8.2, Eos % (Auto) 1.1, Baso % (Auto) 0.7, Absolute Neuts (auto) 8.5 H, Absolute Lymphs (auto) 0.29 L, Nucleated RBC % 0.3, Polychromasia 1+, Hypochromasia 1+, Anisocytosis 3+, Microcytosis 1+, Macrocytosis 1+ 12/21/22 04:31: Sodium 138, Potassium 3.6, Chloride 107, Carbon Dioxide 26.0, Anion Gap 5, BUN 18, Creatinine 0.24 L, Estim Creat Clear Calc 148.68, Est GFR (MDRD) Af Amer 362, Est GFR (MDRD) Non-Af 299, BUN/Creatinine Ratio 73.5 H, Glucose 128 H, Calcium 7.3 L 12/21/22 10:00: Vancomycin Trough 15.9 H Micro: Microbiology 12/20/22 08:30 Sputum, Induced/Lukens Gram Stain - Final 12/18/22 09:10 Blood Culture (Wb) #2 - Anticubital Left Blood Culture - Preliminary No growth in 48 hours. 12/18/22 09:10 Blood Culture (Wb) - Anticubital Right Blood Culture - Preliminary No growth in 48 hours. 12/20/22 08:30 Stool Stool Occult Blood (SAMANTHA) - Final Occult Blood Positive Radiography Diagnostic Testing: Radiology Impression Chest X-Ray 12/21/22 15:01 IMPRESSION: Increasing airspace disease in the left upper lung field and right lung base with stable bilateral pleural effusions. Electronically Signed: Stephen German MD at 15:32 EDT , Rhythm Strip Rhythm Strip: Sinus Rhythm Rate: 93 Ectopy: None Physical Exam Const alert, oriented x3 and no apparent distress Constitutional Narrative: Frail HEENT normocephalic, moist oral mucous membranes and oropharynx normal Eyes PERRL and EOMs intact bilaterally Neck no lymphadenopathy and supple Lymph Lymphatic: no lymphadenopathy noted and no lymphedema noted Resp Resp Narrative: Mildly diminished breath sounds bibasally. No wheezes or crackles. On 3L of oxygen by nasal canula Cardio regular rhythm, S1 normal heart sound, S2 normal heart sound and no murmurs Cardio Narrative: tachypneic GI normal to inspection, nondistended, normoactive bowel sounds, soft to palpation, non-tender and non-distended GI Narrative: PEG tube in situ Extremity normal capillary refill, no clubbing, cyanosis or edema and no calf tenderness Skin General Skin Exam: no breakdown Neuro CN's II-XII intact bilaterally, no focal motor deficits, no sensory deficits noted and deep tendon reflexes 2+ bilaterally Motor Exam: strength 5/5 throughout Psych thought process normal Appearance: appropriate Assessment & Plan Assessment/Plan (1) Acute and chronic respiratory failure with hypoxia: (2) Left upper lobe pneumonia: PLAN: Plan #Acute on chronic hypoxic respiratory failure due to aspiration pneumonia versus health assisted pneumonia and left pleural effusion * Was on 3 L at time of review this morning but subsequently required BiPAP. * On broad-spectrum antibiotics. She was recently admitted for similar complaints. * Breathing treatments of bronchodilators. Titrate oxygen to maintain saturation above 90%. * #CAD s/p stents: On aspirin and high intensity statin. Also on plavix #Chronic diastolic heart failure: Diuretics on hold due to blood pressure running low. Will monitor. #Acute on chronic anemia: * Hemoglobin was low so she was transfused. * Stool for occult blood was also positive. He had EGD today which showed intact gastrostomy with patent G-tube and a single bleeding angiodysplastic lesion in the stomach which was treated with heater probe * #Paroxysmal A-fib: On amiodarone. Eliquis held, on heparin drip #Hypothyroidism: On Synthroid #Severe protein calorie malnutrition: Nutrition on board. On tube feeds #History of PE, was diagnosed with PE during the most recent admission. Currently on heparin drip. #Oropharyngeal dysphagia: PEG tube in place. On tube feeds. #GERD: On PPI DVT prophylaxis: on heparin drip Charges/Coding Visit Charges Inpatient E&M: 29839 Subs Hosp L2
[2022-12-22] VITALS (18 sets, daily range): BP systolic 83–108; BP diastolic 54–72; PULSE 91–107; RESP 12–35; TEMP 36.2–36.7; O2SAT 90–100; BMI 19.1
[2022-12-22] MEDS: Ipratropium 0.5 MG/2.5 ML SOLUTION INHALATION ×4 (01:40→19:50)
[2022-12-22] MEDS: Nystatin Powder 15gm Bottle 1 APPLIC TOPICAL ×2 (04:26→12:52)
[2022-12-22] MEDS: Vancomycin IV 1,000 MG/200 ML BAG 200 MG IV ×2 (04:26→16:20)
[2022-12-22] MEDS: HEPARIN/D5w 25,000 UNITS 25,000 UNITS/250 ML IV.SOLN. 9.5 UNITS CONT INF (04:27)
[2022-12-22 04:44] LABS: Absolute Lymphocyte Count 0.32 X10^3/uL (0.83-4.51); Absolute Neutrophil Count 11.4 X10^3/uL (2.0-7.7); Basophil# 0.08 X10^3/uL; Basophil% 0.6 % (0-1); Eosinophil# 0.02 X10^3/uL; Eosinophils% 0.2 % (0-5); Hematocrit 28.8 % (37-47); Hemoglobin 8.7 g/dL (12.0-15.0); Lymphocyte # 0.32 X10^3/ul (0.83-4.51); Lymphocyte % 2.4 % (19-41); Mean Corp Hgb Conc 30.2 g/dL (32-36); Mean Corpuscular Hgb 25.2 pg (27.0-32.0); Mean Corpuscular Volume 83.5 fL (81-99); Mean Platelet Vol. 10.6 fl (6.2-12.0); Monocyte# 1.02 X10^3/uL; Monocyte% 7.8 % (0-10); NRBC Flagged by Analyzer 0.2 % (0-5); Neutrophil # 11.41 X10^3/uL (2.7-7.7); Neutrophil % 86.9 % (47-70); POSITIVE DIFFERENTIAL YES; POSITIVE MORPHOLOGY YES; Platelet Count 461 K/mm3 (150-450); RBC Distribution Width CV 27.6 % (11.6-14.6); RBC Distribution Width SD 81.8 fl (35.1-43.9); Red Blood Count 3.45 M/mm3 (4.2-5.4); White Blood Count 13.1 K/mm3 (4.4-11.0)
[2022-12-22 05:02] LABS: Partial Thromboplast Time 102.1 Seconds (24.1-36.2)
[2022-12-22 05:03] LABS: Differential Indicated SCAN CRITERIA MET
[2022-12-22 05:26] LABS: Anion Gap 4 (5-15); BUN 16 mg/dL (7-18); BUN/Creat Ratio 44.3 RATIO (10-20); Chloride 98 mmol/L (98-107); Creatinine, Serum 0.36 mg/dL (0.55-1.02); EST Glomerular Filtration Rate 191 mL/min (>60); Est Glom Filt Rate - Afr Amer 231 mL/min (>60); Estimated Creatinine Clearance 101.33 ml/min; Glucose 144 mg/dL (74-106); Potassium 3.1 mmol/L (3.5-5.1); Sodium Level 137 mmol/L (136-145)
[2022-12-22 05:32] LABS: Anisocytosis 3+; Macrocytosis 1+; Microcytosis 1+
[2022-12-22 05:33] LABS: Hypochromasia 1+; Platelet Estimate SLT INC (ADEQ); Polychromasia RARE
[2022-12-22 05:34] LABS: Platelet Morphology LARGE
[2022-12-22] MEDS: LORazepam 2 MG/ML Syringe 0.5 MG IV ×3 (05:38→22:10)
--- NOTE | 2022-12-22 07:07 | PCM.PN.INT ---
Assessment & Plan Assessment/Plan (1) Acute and chronic respiratory failure with hypoxia: PLAN: Plan RECOMMENDATIONS: 1. Continue to wean supplemental oxygen to maintain saturations at or above 90%. 2. Continue empiric antimicrobials, while awaiting finalized infectious work-up. 3. Continue scheduled Atrovent aerosols. 4. Continue AVAPS therapy nightly. 5. Continue nutritional support via G-tube. 6. If hemoglobin remains stable today, the patient can be transitioned from heparin back to her baseline Eliquis. 7. Encourage incentive spirometer use and mobilize patient as tolerated. IMPRESSIONS: 1. Acute on chronic hypoxemic respiratory failure Most likely secondary to flash pulmonary edema. The patient has a known history of underlying bronchiectasis and recurrent pleural effusion, which according to documentation, was previously felt to be cardiac in etiology.? The patient did undergo a VATS and pleurodesis on the right and in 2019 had a Pleurx catheter on the left side in 2019.? The patient has had discussion with her primary care program resident, Dr. Bernard Mcguire, regarding the feasibility of a left-sided pleurodesis. Given concerns for potential superimposed infection as well, plan to continue empiric antimicrobials, while awaiting finalized culture data. Continue AVAPS therapy with naps and nightly. 2.??History of subsegmental PE with RV dysfunction and pulmonary hypertension Continue systemic anticoagulation with heparin as ordered.? Okay to resume Eliquis from my perspective tomorrow, if the patient's hemoglobin remains stable. 3.??COPD with chronic bronchitis Continue scheduled Atrovent aerosols.? 4.??Pulmonary cachexia/hypothyroidism/GERD Complicates care, management, recovery and prognosis.? Continue supportive measures as noted above including tube feeds as tolerated. This note was generated with [employer] dictation software. It may contain incorrect words, spelling, and punctuation that were not noted in checking the note before signing. Subjective Subjective The patient was seen and examined at the bedside this morning. Events from the last 24 hours have been reviewed. The patient is currently afebrile and hemodynamically stable. The patient decompensated from a respiratory perspective yesterday afternoon after she was taken for upper endoscopy. EGD did reveal a single bleeding angiodysplastic lesion in the stomach which was treated with a heater probe. Postprocedure, the patient received a one-time dose of IV Lasix. She was maintained on AVAPS overnight. This morning, the patient was weaned to nasal cannula supplemental oxygen at 3 L/min. She is currently documented to be overall net +6.8 L for the hospitalization. Hemoglobin is stable at 8.7 g/dL. Potassium is low at 3.1. Objective Data Objective Data The patient's most recent lab work, culture data and imaging studies have all been personally reviewed. Surface echocardiogram from November 2022 demonstrated normal LV size and function with an ejection fraction of 70%. Pulmonary artery systolic pressure was estimated to be 55 to 60 mmHg. Sputum culture is pending. Vital Signs: Vital Signs Temp Pulse Resp BP Pulse Ox O2 Del Method O2 Flow Rate 97.5 F L 96 20 H 95/60 96 Bi-pap 3 12/22/22 06:00 12/22/22 06:00 12/22/22 06:00 12/22/22 06:00 12/22/22 06:00 12/22/22 06:00 12/21/22 23:00 FiO2 40 12/22/22 06:00 Oxygen Flow Rate (L/min) 3 Oxygen Delivery Method Bi-pap Weight: 90 lb 13.287 oz Body Mass Index (BMI) 19.1 Intake & Output: Intake and Output for Last 24 Hours 12/20/22 12/21/22 12/22/22 23:59 23:59 23:59 Intake Total 2515.52 / 2635.52 2931.70 / 3051.70 601.37 / 601.37 Output Total 150 / 150 1150 / 1400 400 / 400 Balance 2365.52 / 2485.52 1781.70 / 1651.70 201.37 / 201.37 Medical Nutrition Assessment Dietitian: Malnutrition Criteria Met Start: 12/18/22 15:10 Freq: Status: Active Protocol: Document 12/21/22 09:27 [facility] (Rec: 12/21/22 09:27 [facility] [id number]) Nutrition Malnutrition Evidence of Malnutrition Exists Yes Malnutrition (severe): Chronic Evidenced By Suboptimal Energy Intake ( Severe),Weight Loss (Severe), Physical Changes (Severe) Intake Problem Increased Nutrient Needs (specify) Etiology protein r/t skin status Signs/Symptoms as evidenced by PI to coccyx and spine Status Active Problem Clinical Problem Chronic Disease or Condition Related Malnutrition Etiology severe related to inadequate energy intake Signs/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 Status Active Problem Biting/Chewing Difficulty Etiology swallowing related to dysphagia Signs/Symptoms as evidenced by [facility] altered diet prior to adm Status Active Problem Recommendation Dietitian Recommendations/Changes When medically able, rec resume Jevity 1.5 via PEG at goal rate 40 ml/hr w/ 120 ml water flush every 4 hours to provide ~ 1440 greyson/ 61 gm pro/ 1449 ml free water/day to meet estimated nutrition needs . When medically able, advance BRUCE to Regular - consistency per CRIME INVESTIGATOR SPECIAL AGENT w/ ONS at meals or medpass for increased nutrition if consumed. Rec JEANETTE bid to help w/ wound healing if warranted Lab / Micro Data Attestation: I reviewed the patient's lab results. Result Diagrams: 12/22/22 04:25 12/22/22 04:25 Labs: Laboratory Results - last 24 hr 12/18/22 10:10: Crossmatch See Detail 12/21/22 10:00: Vancomycin Trough 15.9 H 12/21/22 22:00: APTT 48.0 H 12/22/22 04:25: WBC 13.1 H, RBC 3.45 L, Hgb 8.7 L, Hct 28.8 L, MCV 83.5, MCH 25.2 L, MCHC 30.2 L, RDW Std Deviation 81.8 H, RDW Coeff of Angie 27.6 H, Plt Count 461 H, MPV 10.6, Immature Gran % (Auto) 2.100 H, Neut % (Auto) 86.9 H, Lymph % (Auto) 2.4 L, [place] % (Auto) 7.8, Eos % (Auto) 0.2, Baso % (Auto) 0.6, Absolute Neuts (auto) 11.4 H, Absolute Lymphs (auto) 0.32 L, Nucleated RBC % 0.2, Platelet Estimate SLT INC, Plt Morphology Comment LARGE, Polychromasia RARE, Hypochromasia 1+, Anisocytosis 3+, Microcytosis 1+, Macrocytosis 1+ 12/22/22 04:25: Sodium 137, Potassium 3.1 L, Chloride 98, Carbon Dioxide 35.0 H, Anion Gap 4 L, BUN 16, Creatinine 0.36 L, Estim Creat Clear Calc 101.33, Est GFR (MDRD) Af Amer 231, Est GFR (MDRD) Non-Af 191, BUN/Creatinine Ratio 44.3 H, Glucose 144 H, Calcium 8.0 L 12/22/22 04:25: APTT 102.1 H* Micro: Microbiology 12/20/22 08:30 Sputum, Induced/Lukens Gram Stain - Final 12/18/22 09:10 Blood Culture (Wb) #2 - Anticubital Left Blood Culture - Preliminary No growth in 48 hours. 12/18/22 09:10 Blood Culture (Wb) - Anticubital Right Blood Culture - Preliminary No growth in 48 hours. 12/20/22 08:30 Stool Stool Occult Blood (SAMANTHA) - Final Occult Blood Positive Radiography Diagnostic Testing: Radiology Impression Chest X-Ray 12/21/22 15:01 IMPRESSION: Increasing airspace disease in the left upper lung field and right lung base with stable bilateral pleural effusions. Electronically Signed: Stephen German MD at 15:32 EDT , Rhythm Strip Rhythm Strip: Sinus Rhythm Rate: 93 Ectopy: None Physical Exam Const alert and no apparent distress General Appearance: cooperative and frail HEENT normocephalic and head/scalp atraumatic Eyes PERRL, EOMs intact bilaterally and conjunctivae normal Neck supple General: trachea midline Chest inspection of chest normal Resp normal respiratory effort Effort and Inspection: tachypneic Auscultation: diminished lung sounds; Negative for rales, rhonchi or wheezes Cardio regular rate and regular rhythm GI normal to inspection, nondistended, normoactive bowel sounds Inspection: GI tube present Extremity no clubbing, cyanosis or edema Skin no rashes or lesions noted Neuro CN's II-XII intact bilaterally and no focal motor deficits Psych cooperative and affect normal Charges/Coding Visit Charges Inpatient E&M: 62995 Subs Hosp L2
[2022-12-22] MEDS: Potassium Chloride Oral Soln 20 MEQ/15 ML UDC 40 MEQ GT (08:53)
--- NOTE | 2022-12-22 09:07 | CASEMGMT ---
Social Work SW received VM from Shelia [facility] [place] and pt's legal guardian. Shelia left a new work cell number. ROSMERY updated pt demographics with new number provided. ROSMERY called Shelia at the number and received VM. ROSMERY left message inquiring about pt discharge plan and left contact number for Shelia to call len. JACOB García
--- NOTE | 2022-12-22 09:17 | CASEMGMT ---
Social work SW called pt son, Damion, to gather new choices for SNF. ROSMERY received VM. Left message and requested Damion call ROSMERY back. JACOB García
--- NOTE | 2022-12-22 12:24 | PN_ITS ---
Subjective Subjective Patient seen and examined. She had no complaints. She had EGD yesterday, and post procedure she became hypoxic and required BIPAP. She was subsequently weaned down to 3L of oxygen. She remains on 3L of oxygen today. REview of systems was otherwise negative. Objective Data Objective Data Vital Signs: Vital Signs Temp Pulse Resp BP Pulse Ox O2 Del Method O2 Flow Rate 97.3 F L 100 35 H 97/57 L 94 Nasal Cannula 3 12/22/22 12:00 12/22/22 12:00 12/22/22 12:00 12/22/22 12:00 12/22/22 12:00 12/22/22 12:00 12/22/22 12:00 FiO2 40 12/22/22 06:00 Oxygen Flow Rate (L/min) 3 Oxygen Delivery Method Nasal Cannula Weight: 90 lb 13.287 oz Body Mass Index (BMI) 19.1 Intake & Output: Intake and Output for Last 24 Hours 12/20/22 12/21/22 12/22/22 23:59 23:59 23:59 Intake Total 2515.52 / 2635.52 2931.70 / 3051.70 1436.70 / 1436.70 Output Total 150 / 150 1150 / 1400 500 / 500 Balance 2365.52 / 2485.52 1781.70 / 1651.70 936.70 / 936.70 Medical Nutrition Assessment Dietitian: Malnutrition Criteria Met Start: 12/18/22 15:10 Freq: Status: Active Protocol: Document 12/21/22 09:27 [facility] (Rec: 12/21/22 09:27 JAYCE [id number]) Nutrition Malnutrition Evidence of Malnutrition Exists Yes Malnutrition (severe): Chronic Evidenced By Suboptimal Energy Intake ( Severe),Weight Loss (Severe), Physical Changes (Severe) Intake Problem Increased Nutrient Needs (specify) Etiology protein r/t skin status Signs/Symptoms as evidenced by PI to coccyx and spine Status Active Problem Clinical Problem Chronic Disease or Condition Related Malnutrition Etiology severe related to inadequate energy intake 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 Status Active Problem Biting/Chewing Difficulty Etiology swallowing related to dysphagia Signs/Symptoms as evidenced by [facility] altered diet prior to adm Status Active Problem Recommendation Dietitian Recommendations/Changes When medically able, rec resume Jevity 1.5 via PEG at goal rate 40 ml/hr w/ 120 ml water flush every 4 hours to provide ~ 1440 greyson/ 61 gm pro/ 1449 ml free water/day to meet estimated nutrition needs . When medically able, advance BRUCE to Regular - consistency per NUCLEAR CONTROL ROOM OPERATOR w/ ONS at meals or medpass for increased nutrition if consumed. Rec JEANETTE bid to help w/ wound healing if warranted Lab / Micro Data Result Diagrams: 12/22/22 04:25 12/22/22 04:25 Labs: Laboratory Results - last 24 hr 12/21/22 22:00: APTT 48.0 H 12/22/22 04:25: WBC 13.1 H, RBC 3.45 L, Hgb 8.7 L, Hct 28.8 L, MCV 83.5, MCH 25.2 L, MCHC 30.2 L, RDW Std Deviation 81.8 H, RDW Coeff of Angie 27.6 H, Plt Count 461 H, MPV 10.6, Immature Gran % (Auto) 2.100 H, Neut % (Auto) 86.9 H, Lymph % (Auto) 2.4 L, [place] % (Auto) 7.8, Eos % (Auto) 0.2, Baso % (Auto) 0.6, Absolute Neuts (auto) 11.4 H, Absolute Lymphs (auto) 0.32 L, Nucleated RBC % 0.2, Platelet Estimate SLT INC, Plt Morphology Comment LARGE, Polychromasia RARE, Hypochromasia 1+, Anisocytosis 3+, Microcytosis 1+, Macrocytosis 1+ 12/22/22 04:25: Sodium 137, Potassium 3.1 L, Chloride 98, Carbon Dioxide 35.0 H, Anion Gap 4 L, BUN 16, Creatinine 0.36 L, Estim Creat Clear Calc 101.33, Est GFR (MDRD) Af Amer 231, Est GFR (MDRD) Non-Af 191, BUN/Creatinine Ratio 44.3 H, Glucose 144 H, Calcium 8.0 L 12/22/22 04:25: APTT 102.1 H* Micro: Microbiology 12/20/22 08:30 Sputum, Induced/Lukens Gram Stain - Final 12/18/22 09:10 Blood Culture (Wb) #2 - Anticubital Left Blood Culture - Preliminary No growth in 48 hours. 12/18/22 09:10 Blood Culture (Wb) - Anticubital Right Blood Culture - Preliminary No growth in 48 hours. 12/20/22 08:30 Stool Stool Occult Blood (SAMANTHA) - Final Occult Blood Positive Radiography Diagnostic Testing: Radiology Impression Chest X-Ray 12/21/22 15:01 IMPRESSION: Increasing airspace disease in the left upper lung field and right lung base with stable bilateral pleural effusions. Electronically Signed: Stephen German MD at 15:32 EDT , Rhythm Strip Rhythm Strip: Sinus Rhythm Rate: 93 Ectopy: None Physical Exam Const alert, oriented x3 and no apparent distress Constitutional Narrative: Frail HEENT normocephalic, moist oral mucous membranes and oropharynx normal Eyes PERRL and EOMs intact bilaterally Neck no lymphadenopathy and supple Lymph Lymphatic: no lymphadenopathy noted and no lymphedema noted Resp Resp Narrative: Mildly diminished breath sounds bibasally. No wheezes or crackles. On 3L of oxygen by nasal canula, Tachypneic Cardio regular rate, regular rhythm, S1 normal heart sound, S2 normal heart sound and no murmurs GI normal to inspection, nondistended, normoactive bowel sounds, soft to palpation, non-tender and non-distended GI Narrative: PEG tube in situ Extremity normal capillary refill, no clubbing, cyanosis or edema and no calf tenderness Skin General Skin Exam: no breakdown Neuro CN's II-XII intact bilaterally, no focal motor deficits, no sensory deficits noted and deep tendon reflexes 2+ bilaterally Motor Exam: strength 5/5 throughout Psych thought process normal Appearance: appropriate Assessment & Plan Assessment/Plan (1) Acute and chronic respiratory failure with hypoxia: (2) Left upper lobe pneumonia: PLAN: Plan #Acute on chronic hypoxic respiratory failure due to aspiration pneumonia versus health assisted pneumonia and left pleural effusion * remains on 3L of oxyen by nasal canula. * on IV * On broad-spectrum antibiotics-vancomycin and cefepime. She was recently admitted for similar complaints. * Breathing treatments of bronchodilators. Titrate oxygen to maintain satu ration above 90%. * #CAD s/p stents: On aspirin and high intensity statin. Also on plavix #Chronic diastolic heart failure: Diuretics on hold due to blood pressure running low. Will monitor. #Acute on chronic anemia: * Hemoglobin was low so she was transfused. * Stool for occult blood was also positive. He had EGD today which showed intact gastrostomy with patent G-tube and a single bleeding angiodysplastic lesion in the stomach which was treated with heater probe * #Paroxysmal A-fib: On amiodarone. Eliquis held, on heparin drip #Hypothyroidism: On Synthroid #Severe protein calorie malnutrition: Nutrition on board. On tube feeds. carafate switched to PO misoprostol so patient can have continuous tube feeds. #History of PE, was diagnosed with PE during the most recent admission. C urrently on heparin drip. Will switch to eliquis via PEG tube #Oropharyngeal dysphagia: PEG tube in place. On tube feeds. #GERD: On PPI DVT prophylaxis: on heparin drip Disposition; transfer out of ICU to PCU Charges/Coding Visit Charges Inpatient E&M: 08610 Subs Hosp L2
[2022-12-22] MEDS: Sodium Chloride 0.65% 1 SPRAY SPRAY.BTL 2 SPRAY NASAL (13:01)
[2022-12-22 13:08] LABS: Partial Thromboplast Time 55.6 Seconds (24.1-36.2)
--- NOTE | 2022-12-22 13:18 | CASEMGMT ---
Social Work Handoff from Denise Sim on discharge planning status, and need for additional choice for SNF. Patient is from [facility], but patient and son decided to look at alternative options from this admission. Noted that [facility] and [facility] are not options at this time due bed availability. Attempted to call son Damion, who is the patient's POC, at [phone]. Called two times with phone ringing, then appearing to be picked up without any sound or response. No way to leave a voicemail. Presented to ICU. Patient in bed and awake. Introduced to self and role. Updated to status of discharge planning. 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 Patient reports to be feeling better than when admitted to [facility] this admission, but still tired. Patient admits to feeling like not coping the best right now. Emotional support offered to patient and explored if anything helps patient at this point. Patient reports to enjoy watching #waywire movies. Explored whether patient has any nesha community, to which patient denied, stating unfortunately. Explored whether hospital booster pump oiler has been by to visit, and patient reports has had a couple of visit. Supportive encouragement provided, acknowledging patient has had a lot of change in short period of time. Emotional support offered. Regarding discharge planning, patient reports choice to go back to [facility]. Patient denies had any concerns with care at [facility], only that had originally hoped to go to one of the alternatives tried during this admission. Patient reports to be comfortable with this choice. Collaboration with Emelyn Ulloa, discharge sales planning analyst, for referral back to [facility]. PASRR completed at time of original admission to [facility]. No break to community, so no need to complete another PASRR process. Plan: Anticipate return to [facility] skilled level of care when precert is obtained. -MARIKA Ga, PAN PUSHER
--- NOTE | 2022-12-22 13:27 | CASEMGMT ---
Discharge Planning Referral sent to Parminder Sanchez via [facility]. Emelyn Ulloa
[2022-12-22] MEDS: 0.9% Saline Lock 10 ML Syringe IV ×2 (14:45→22:11)
[2022-12-22] MEDS: Juven (unflavored) Packet 1 PACKET GT (16:20)
--- NOTE | 2022-12-22 19:17 | PN_ITS ---
Subjective Subjective She underwent EGD yesterday without any issues. Objective Data Objective Data Vital Signs: Vital Signs Temp Pulse Resp BP Pulse Ox O2 Del Method O2 Flow Rate 97.7 F L 94 18 108/72 97 Nasal Cannula 4 12/22/22 18:05 12/22/22 18:05 12/22/22 18:05 12/22/22 18:05 12/22/22 18:05 12/22/22 18:05 12/22/22 18:05 FiO2 40 12/22/22 06:00 Oxygen Flow Rate (L/min) 4 Oxygen Delivery Method Nasal Cannula Weight: 90 lb 13.287 oz Body Mass Index (BMI) 19.1 Intake & Output: Intake and Output for Last 24 Hours 12/20/22 12/21/22 12/22/22 23:59 23:59 23:59 Intake Total 2515.52 / 2635.52 2931.70 / 3051.70 2458.62 / 2458.62 Output Total 150 / 150 1150 / 1400 650 / 650 Balance 2365.52 / 2485.52 1781.70 / 1651.70 1808.62 / 1808.62 Medical Nutrition Assessment Dietitian: Malnutrition Criteria Met Start: 12/18/22 15:10 Freq: Status: Active Protocol: Document 12/22/22 09:15 AG (Rec: 12/22/22 14:27 AG [id number]) Nutrition Malnutrition Evidence of Malnutrition Exists Yes Malnutrition (severe): Chronic Evidenced By Suboptimal Energy Intake ( Severe),Physical Changes ( Severe) Intake Problem Increased Nutrient Needs (specify) Etiology protein r/t skin status Signs/Symptoms as evidenced by PI to coccyx and spine Status Active Problem Clinical Problem Swallowing Difficulty Etiology related to dysphagia Signs/Symptoms as evidenced by inability to consume PO nutrition Status Active Problem Chronic Disease or Condition Related Malnutrition Etiology chronic, severe malnutrition related to inadequate energy intake Signs/Symptoms as evidenced by estimated PO intake meeting <75% of estimated energy needs > 3 months, severe fat/muscle wasting per physical exam in orbital, temporal, clavicle, and acromion areas, BMI 19.1 Status Active Problem Biting/Chewing Difficulty Status Inactive Problem Recommendation Dietitian Recommendations/Changes 1) Continue via PEG- Jevity 1. 5 at goal rate of 40mL/hour w/ 120mL H2O flush every 4 hours to provide 1440 calories, 61 g protein, and 1449mL total fluid/day. 2) John BID via PEG. 3) Will monitor ability to resume PO diet and adjust enteral nutrition as indicated . Recommend regular diet- texture/consistency per SURGERY TECHNICIAN. 4) Continue daily wts. Lab / Micro Data Result Diagrams: 12/22/22 04:25 12/22/22 04:25 Labs: Laboratory Results - last 24 hr 12/21/22 22:00: APTT 48.0 H 12/22/22 04:25: WBC 13.1 H, RBC 3.45 L, Hgb 8.7 L, Hct 28.8 L, MCV 83.5, MCH 25.2 L, MCHC 30.2 L, RDW Std Deviation 81.8 H, RDW Coeff of Angie 27.6 H, Plt Count 461 H, MPV 10.6, Immature Gran % (Auto) 2.100 H, Neut % (Auto) 86.9 H, Lymph % (Auto) 2.4 L, [place] % (Auto) 7.8, Eos % (Auto) 0.2, Baso % (Auto) 0.6, Absolute Neuts (auto) 11.4 H, Absolute Lymphs (auto) 0.32 L, Nucleated RBC % 0.2, Platelet Estimate SLT INC, Plt Morphology Comment LARGE, Polychromasia RARE, Hypochromasia 1+, Anisocytosis 3+, Microcytosis 1+, Macrocytosis 1+ 12/22/22 04:25: Sodium 137, Potassium 3.1 L, Chloride 98, Carbon Dioxide 35.0 H, Anion Gap 4 L, BUN 16, Creatinine 0.36 L, Estim Creat Clear Calc 101.33, Est GFR (MDRD) Af Amer 231, Est GFR (MDRD) Non-Af 191, BUN/Creatinine Ratio 44.3 H, Glucose 144 H, Calcium 8.0 L 12/22/22 04:25: APTT 102.1 H* 12/22/22 12:45: APTT 55.6 H Micro: Microbiology 12/20/22 08:30 Sputum, Induced/Lukens Gram Stain - Final 12/18/22 09:10 Blood Culture (Wb) #2 - Anticubital Left Blood Culture - Preliminary No growth in 48 hours. 12/18/22 09:10 Blood Culture (Wb) - Anticubital Right Blood Culture - Preliminary No growth in 48 hours. 12/20/22 08:30 Stool Stool Occult Blood (SAMANTHA) - Final Occult Blood Positive Rhythm Strip Rhythm Strip: Sinus Rhythm Rate: 93 Ectopy: None Physical Exam Const alert, oriented x3 and no apparent distress Constitutional Narrative: Frail HEENT normocephalic, moist oral mucous membranes and oropharynx normal Eyes PERRL and EOMs intact bilaterally Neck no lymphadenopathy and supple Lymph Lymphatic: no lymphadenopathy noted and no lymphedema noted Resp Resp Narrative: Mildly diminished breath sounds bibasally. No wheezes or crackles. On 3L of oxygen by nasal canula, Tachypneic Cardio regular rate, regular rhythm, S1 normal heart sound, S2 normal heart sound and no murmurs GI normal to inspection, nondistended, normoactive bowel sounds, soft to palpation, non-tender and non-distended GI Narrative: PEG tube in situ Extremity normal capillary refill, no clubbing, cyanosis or edema and no calf tenderness Skin General Skin Exam: no breakdown Neuro CN's II-XII intact bilaterally, no focal motor deficits, no sensory deficits noted and deep tendon reflexes 2+ bilaterally Motor Exam: strength 5/5 throughout Psych thought process normal Appearance: appropriate Assessment & Plan Assessment/Plan (1) Sepsis due to Streptococcus pneumoniae with acute hypoxic respiratory failure and septic shock: (2) Acute and chronic respiratory failure with hypoxia: (3) Recurrent pleural effusion: (4) Anemia: PLAN: Plan #Acute on chronic hypoxic respiratory failure due to recurrent right pleural effusion and community acquired pneumonia as well as PE * s/p right thoracentesis on 11/26/2022 with removal of 525 mls of stephen-colored fluid. * Blood cultures were positive for strep pneumonia. She was initially intubated in the ICU. She was started on IV meropenem. * She is also s/p bronchoscopy cultures of which showed no growth. She has had a complicated hospital because. * now on 2L of oxygen * 2D echo showed severely dilated RV with moderate RV systolic dysfunction and pulmonary artery systolic pressure of 55-60mmhg. #Pulmonary embolism * CTA of the chest showed PE with heart strain. It was a subsegmental PE in the right upper lobe * She was on Eliquis. She is on heparin drip. * She has a history of nose bleed and hematuria havent recurred #Anemia * Status post EGD with a active bleeding in the stomach secondary to angiodysplastic lesion that was treated endoscopically. Her hemoglobin seems to be a little bit stable at this time. 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 Eventually she will likely need a capsule study and likely a colonoscopy. #Hematuria: * resolved. Eliquis has been resumed and it hasn't recurred. #Hyponatremia * sodium is 128. May be due to fluid overload as her oxygen requirements is increasing * will diurese with IV lasix due to suspected fluid overload * trend sodium * #Moderate pulmonary hypertension: pulmonary artery systolic pressure is 55-60%, as above. Likely contributing to her respiratory failure. #CAD s/p stents: On aspirin as well as Lipitor and Plavix. #Hyperlipidemia: On statin #Paroxysmal A-fib: On amiodarone; on eliquis #Oropharyngeal dysphagia * Has PEG tube in place. Barium swallow showed moderate oropharyngeal disease patient with dysphagia retention. * Currently on a modified diet. Speech therapy and on tube feed for supplementation #Hypothyroidism: On Synthroid #Severe protein calorie malnutrition: On tube feeds and a modified diet. Nutrition on board. #GERD: On PPI DVT prophylaxis:eliquis Disposition: awaiting placement. Charges/Coding Visit Charges Inpatient E&M: 89060 [facility] Hosp L3
[2022-12-22 19:37] LABS: Partial Thromboplast Time 67.8 Seconds (24.1-36.2)
--- NOTE | 2022-12-22 19:52 | NURSING ---
Pt requests getting up to Bedside commode to have, pt noted on 2L 02 via NC, Pt with minimal assistance x1 to commode. pt noted with sp02 72% 02 increased at this time to 15L NN pt sp02 91%. pt unable to pass stool at this time. Pt returned to bed and repositioned for comfort, pt noted with sp02 79% BIPAP applied at 35%. sp02 100%. will monitor.
[2022-12-22] MEDS: Jevity 1.5 1,000 ML 40 ML GT (21:16)
[2022-12-23] VITALS (14 sets, daily range): BP systolic 94–106; BP diastolic 60–70; PULSE 89–104; RESP 12–38; TEMP 36.3–36.8; O2SAT 93–99; BMI 19.9
[2022-12-23] MEDS: Nystatin Powder 15gm Bottle 1 APPLIC TOPICAL ×4 (00:21→20:47)
[2022-12-23 02:15] LABS: Partial Thromboplast Time 89.4 Seconds (24.1-36.2)
[2022-12-23 04:20] LABS: Absolute Lymphocyte Count 0.45 X10^3/uL (0.83-4.51); Absolute Neutrophil Count 11.2 X10^3/uL (2.0-7.7); Basophil% 0.8 % (0-1); Eosinophil# 0.13 X10^3/uL; Hematocrit 28.5 % (37-47); Hemoglobin 8.5 g/dL (12.0-15.0); Lymphocyte # 0.45 X10^3/ul (0.83-4.51); Lymphocyte % 3.4 % (19-41); Mean Corp Hgb Conc 29.8 g/dL (32-36); Mean Corpuscular Hgb 24.9 pg (27.0-32.0); Mean Corpuscular Volume 83.6 fL (81-99); Mean Platelet Vol. 10.4 fl (6.2-12.0); Monocyte# 0.92 X10^3/uL; NRBC Flagged by Analyzer 0 % (0-5); Neutrophil # 11.21 X10^3/uL (2.7-7.7); Neutrophil % 85.3 % (47-70); POSITIVE DIFFERENTIAL YES; POSITIVE MORPHOLOGY YES; Platelet Count 438 K/mm3 (150-450); RBC Distribution Width CV 27.2 % (11.6-14.6); RBC Distribution Width SD 79.9 fl (35.1-43.9); Red Blood Count 3.41 M/mm3 (4.2-5.4); White Blood Count 13.1 K/mm3 (4.4-11.0)
[2022-12-23] MEDS: Vancomycin IV 1,000 MG/200 ML BAG 200 MG IV ×2 (04:32→15:40)
[2022-12-23] MEDS: 0.9% Saline Lock 10 ML Syringe IV ×2 (04:33→23:42)
[2022-12-23] MEDS: LORazepam 2 MG/ML Syringe 0.5 MG IV ×3 (04:33→23:42)
[2022-12-23 05:08] LABS: Anion Gap 3 (5-15); BUN 14 mg/dL (7-18); BUN/Creat Ratio 57.6 RATIO (10-20); Calcium,Total 8.2 mg/dL (8.5-10.1); Chloride 99 mmol/L (98-107); Creatinine, Serum 0.24 mg/dL (0.55-1.02); EST Glomerular Filtration Rate 302 mL/min (>60); Est Glom Filt Rate - Afr Amer 365 mL/min (>60); Estimated Creatinine Clearance 158.64 ml/min; Glucose 102 mg/dL (74-106); Potassium 3.7 mmol/L (3.5-5.1); Sodium Level 136 mmol/L (136-145)
[2022-12-23 05:10] LABS: Vancomycin, Trough Level 17.4 ug/mL (5.0-15.0)
--- NOTE | 2022-12-23 05:20 | PCM.RX.CS ---
Consult Pharmacy has been consulted to manage selected antiobiotic: Vancomycin Type of Consult: Follow-up Suspected Infection: Pneumonia Prior Doses of Antibiotics Received/Current Regimen: Medications Vancomycin HCl (Vancomycin) 1,000 mg in 200 mls @ 200 mls/hr IV Q12H ADRIANA Last Admin: 12/23/22 04:32 Dose: 200 mls/hr Labs: Sodium 136 mmol/L (136-145) 12/23/22 04:06 Potassium 3.7 mmol/L (3.5-5.1) 12/23/22 04:06 Chloride 99 mmol/L (98-107) 12/23/22 04:06 Carbon Dioxide 34.0 mmol/L (21.0-32.0) H 12/23/22 04:06 Anion Gap 3 (5-15) L 12/23/22 04:06 BUN 14 mg/dL (7-18) 12/23/22 04:06 Creatinine 0.24 mg/dL (0.55-1.02) L 12/23/22 04:06 Est GFR (MDRD) Af Amer 365 mL/min (>60) 12/23/22 04:06 Est GFR (MDRD) Non-Af 302 mL/min (>60) 12/23/22 04:06 BUN/Creatinine Ratio 57.6 RATIO (10-20) H 12/23/22 04:06 Glucose 102 mg/dL (74-106) 12/23/22 04:06 Vancomycin Trough 17.4 ug/mL (5.0-15.0) H 12/23/22 04:06 Microbiology: Microbiology 12/20/22 08:30 Sputum, Induced/Lukens Gram Stain - Final 12/18/22 09:10 Blood Culture (Wb) #2 - Anticubital Left Blood Culture - Preliminary No growth in 48 hours. 12/18/22 09:10 Blood Culture (Wb) - Anticubital Right Blood Culture - Preliminary No growth in 48 hours. 12/20/22 08:30 Stool Stool Occult Blood (SAMANTHA) - Final Occult Blood Positive Weight used for dosin kg Estimated Creatinine Clearance: 159 Goal Trough: 15-20 mcg/mL Pharmacy Plan for Drug Dosing: Vancomycin trough level, drawn 11.75hrs post-dose, was 17.4 - within the target range of 15-20. Will continue dosing at 1000mg q12h, and re-draw a trough in four days. Pharmacy Service will continue to monitor and adjust dosing as required. Follow-Up Labs: Trough Vancomycin Labs to be done on [date and time ordered]: 12/27/22 @1254
[2022-12-23 06:00] LABS: Differential Indicated SCAN CRITERIA MET
[2022-12-23 06:42] LABS: Anisocytosis 3+; Macrocytosis 1+; Microcytosis 1+
[2022-12-23 06:44] LABS: Polychromasia 1+
[2022-12-23] MEDS: Ipratropium 0.5 MG/2.5 ML SOLUTION INHALATION ×3 (07:00→19:32)
[2022-12-23] MEDS: Juven (unflavored) Packet 1 PACKET GT (07:47)
[2022-12-23 08:33] LABS: Partial Thromboplast Time 64.1 Seconds (24.1-36.2)
--- NOTE | 2022-12-23 08:49 | CASEMGMT ---
Discharge Planning Updates sent to Parminder Sanchez. Emelyn Ulloa
--- NOTE | 2022-12-23 09:57 | PCM.PN.INT ---
Assessment & Plan Assessment/Plan (1) Acute and chronic respiratory failure with hypoxia: PLAN: Plan RECOMMENDATIONS: 1. Continue to wean supplemental oxygen to maintain saturations at or above 90%. 2. Continue empiric antimicrobials to complete 7-day treatment course. 3. Continue scheduled Atrovent aerosols. 4. Continue AVAPS therapy nightly. 5. Continue nutritional support via G-tube. 6. Given stability in hemoglobin, okay to transition from heparin back to baseline Eliquis. 7. Encourage incentive spirometer use and mobilize patient as tolerated. IMPRESSIONS: 1. Acute on chronic hypoxemic respiratory failure Most likely secondary to flash pulmonary edema. The patient has a known history of underlying bronchiectasis and recurrent pleural effusion, which according to documentation, was previously felt to be cardiac in etiology.? The patient did undergo a VATS and pleurodesis on the right and in 2019 had a Pleurx catheter on the left side in 2019.? The patient has had discussion with her primary shared services and outsourcing manager, Dr. Bernard Mcguire, regarding the feasibility of a left-sided pleurodesis. Given concerns for potential superimposed infection as well, plan to continue empiric antimicrobials. Continue AVAPS therapy with naps and nightly. 2.??History of subsegmental PE with RV dysfunction and pulmonary hypertension Okay to resume Eliquis from my perspective, given stability in the patient's hemoglobin. 3.??COPD with chronic bronchitis Continue scheduled Atrovent aerosols.? 4.??Pulmonary cachexia/hypothyroidism/GERD Complicates care, management, recovery and prognosis.? Continue supportive measures as noted above including tube feeds as tolerated. This note was generated with [employer] dictation software. It may contain incorrect words, spelling, and punctuation that were not noted in checking the note before signing. Subjective Subjective The patient was seen and examined at the bedside this morning. Events from the last 24 hours have been reviewed. The patient is currently afebrile, hemodynamically stable and maintaining appropriate oxygen saturations on 3 L/min via nasal cannula. The patient was again compliant with PAP therapy overnight. She is documented to be overall net +9.4 L for the hospitalization. Hemoglobin remains stable at 8.5 g/dL. Objective Data Objective Data The patient's most recent lab work, culture data and imaging studies have all been personally reviewed. Surface echocardiogram from November 2022 demonstrated normal LV size and function with an ejection fraction of 70%. Pulmonary artery systolic pressure was estimated to be 55 to 60 mmHg. Sputum culture is pending. Vital Signs: Vital Signs Temp Pulse Resp BP Pulse Ox O2 Del Method O2 Flow Rate 97.4 F L 91 22 H 106/66 94 Nasal Cannula 3 12/23/22 03:56 12/23/22 07:00 12/23/22 07:38 12/23/22 03:56 12/23/22 09:32 12/23/22 09:32 12/23/22 09:32 FiO2 40 12/23/22 07:38 Oxygen Flow Rate (L/min) 3 Oxygen Delivery Method Nasal Cannula Weight: 94 lb 12.78 oz Body Mass Index (BMI) 19.9 Intake & Output: Intake and Output for Last 24 Hours 12/21/22 12/22/22 12/23/22 23:59 23:59 23:59 Intake Total 2931.70 / 3051.70 2764.33 / 2764.33 653.74 / 653.74 Output Total 1150 / 1400 650 / 650 Balance 1781.70 / 1651.70 2114.33 / 2114.33 653.74 / 653.74 Medical Nutrition Assessment Dietitian: Malnutrition Criteria Met Start: 12/18/22 15:10 Freq: Status: Active Protocol: Document 12/22/22 09:15 AG (Rec: 12/22/22 14:27 [id number]) Nutrition Malnutrition Evidence of Malnutrition Exists Yes Malnutrition (severe): Chronic Evidenced By Suboptimal Energy Intake ( Severe),Physical Changes ( Severe) Intake Problem Increased Nutrient Needs (specify) Etiology protein r/t skin status Signs/Symptoms as evidenced by PI to coccyx and spine Status Active Problem Clinical Problem Swallowing Difficulty Etiology related to dysphagia Signs/Symptoms as evidenced by inability to consume PO nutrition Status Active Problem Chronic Disease or Condition Related Malnutrition Etiology chronic, severe malnutrition related to inadequate energy intake Signs/Symptoms as evidenced by estimated PO intake meeting <75% of estimated energy needs > 3 months, severe fat/muscle wasting per physical exam in orbital, temporal, clavicle, and acromion areas, BMI 19.1 Status Active Problem Biting/Chewing Difficulty Status Inactive Problem Recommendation Dietitian Recommendations/Changes 1) Continue via PEG- Jevity 1. 5 at goal rate of 40mL/hour w/ 120mL H2O flush every 4 hours to provide 1440 calories, 61 g protein, and 1449mL total fluid/day. 2) John BID via PEG. 3) Will monitor ability to resume PO diet and adjust enteral nutrition as indicated . Recommend regular diet- texture/consistency per PLASTIC EXTRUSION OPERATOR. 4) Continue daily wts. Lab / Micro Data Attestation: I reviewed the patient's lab results. Result Diagrams: 12/23/22 04:06 12/23/22 04:06 Labs: Laboratory Results - last 24 hr 12/22/22 12:45: APTT 55.6 H 12/22/22 18:55: APTT 67.8 H 12/23/22 01:45: APTT 89.4 H 12/23/22 04:06: Vancomycin Trough 17.4 H 12/23/22 04:06: WBC 13.1 H, RBC 3.41 L, Hgb 8.5 L, Hct 28.5 L, MCV 83.6, MCH 24.9 L, MCHC 29.8 L, RDW Std Deviation 79.9 H, RDW Coeff of Angie 27.2 H, Plt Count 438, MPV 10.4, Immature Gran % (Auto) 2.500 H, Neut % (Auto) 85.3 H, Lymph % (Auto) 3.4 L, [place] % (Auto) 7.0, Eos % (Auto) 1.0, Baso % (Auto) 0.8, Absolute Neuts (auto) 11.2 H, Absolute Lymphs (auto) 0.45 L, Nucleated RBC % 0, Polychromasia 1+, Anisocytosis 3+, Microcytosis 1+, Macrocytosis 1+ 12/23/22 04:06: Sodium 136, Potassium 3.7, Chloride 99, Carbon Dioxide 34.0 H, Anion Gap 3 L, BUN 14, Creatinine 0.24 L, Estim Creat Clear Calc 158.64, Est GFR (MDRD) Af Amer 365, Est GFR (MDRD) Non-Af 302, BUN/Creatinine Ratio 57.6 H, Glucose 102, Calcium 8.2 L 12/23/22 07:10: APTT 64.1 H Micro: Microbiology 12/20/22 08:30 Sputum, Induced/Lukens Gram Stain - Final 12/20/22 08:30 Sputum, Induced/Lukens Respiratory Culture - Final Ivanna albicans 12/18/22 09:10 Blood Culture (Wb) #2 - Anticubital Left Blood Culture - Preliminary No growth in 48 hours. 12/18/22 09:10 Blood Culture (Wb) - Anticubital Right Blood Culture - Preliminary No growth in 48 hours. 12/20/22 08:30 Stool Stool Occult Blood (SAMANTHA) - Final Occult Blood Positive Radiography Diagnostic Testing: Radiology Impression Chest X-Ray 12/21/22 15:01 IMPRESSION: Increasing airspace disease in the left upper lung field and right lung base with stable bilateral pleural effusions. Electronically Signed: Stephen German MD at 15:32 EDT , Rhythm Strip Rhythm Strip: Sinus Rhythm Rate: 93 Ectopy: None Physical Exam Const alert and no apparent distress General Appearance: cooperative and frail HEENT normocephalic and head/scalp atraumatic Eyes PERRL, EOMs intact bilaterally and conjunctivae normal Neck supple General: trachea midline Chest inspection of chest normal Resp normal respiratory effort Effort and Inspection: tachypneic Auscultation: diminished lung sounds; Negative for rales, rhonchi or wheezes Cardio regular rate and regular rhythm GI normal to inspection, nondistended, normoactive bowel sounds Inspection: GI tube present Extremity no clubbing, cyanosis or edema Skin no rashes or lesions noted Neuro CN's II-XII intact bilaterally and no focal motor deficits Psych cooperative and affect normal Charges/Coding Visit Charges Inpatient E&M: 82361 Subs Hosp L2
[2022-12-23] MEDS: Acetaminophen 650 MG/20 ML UDC GT (09:59)
--- NOTE | 2022-12-23 10:13 | CASEMGMT ---
Discharge Planning Parminder Sanchez notified of anticipated discharge date. No response yet if they plan to take her back. Emelyn Ulloa
--- NOTE | 2022-12-23 11:16 | PN_ITS ---
Subjective Subjective Patient seen and examined. She was frail. She had no active complaints. She denied any chest pain, palpitations, dizziness, nausea, vomiting or diarrhea. Review of systems is otherwise negative. On 4L of oxygen at time of review. Objective Data Objective Data Vital Signs: Vital Signs Temp Pulse Resp BP Pulse Ox O2 Del Method O2 Flow Rate 97.8 F 94 22 H 104/62 94 Nasal Cannula 4 12/23/22 10:00 12/23/22 10:00 12/23/22 10:00 12/23/22 10:00 12/23/22 10:00 12/23/22 10:00 12/23/22 10:00 FiO2 40 12/23/22 07:38 Oxygen Flow Rate (L/min) 4 Oxygen Delivery Method Nasal Cannula Weight: 94 lb 12.78 oz Body Mass Index (BMI) 19.9 Intake & Output: Intake and Output for Last 24 Hours 12/21/22 12/22/22 12/23/22 23:59 23:59 23:59 Intake Total 2931.70 / 3051.70 2764.33 / 2764.33 703.74 / 703.74 Output Total 1150 / 1400 650 / 650 Balance 1781.70 / 1651.70 2114.33 / 2114.33 703.74 / 703.74 Medical Nutrition Assessment Dietitian: Malnutrition Criteria Met Start: 12/18/22 15:10 Freq: Status: Active Protocol: Document 12/22/22 09:15 AG (Rec: 12/22/22 14:27 AG [id number]) Nutrition Malnutrition Evidence of Malnutrition Exists Yes Malnutrition (severe): Chronic Evidenced By Suboptimal Energy Intake ( Severe),Physical Changes ( Severe) Intake Problem Increased Nutrient Needs (specify) Etiology protein r/t skin status Signs/Symptoms as evidenced by PI to coccyx and spine Status Active Problem Clinical Problem Swallowing Difficulty Etiology related to dysphagia Signs/Symptoms as evidenced by inability to consume PO nutrition Status Active Problem Chronic Disease or Condition Related Malnutrition Etiology chronic, severe malnutrition related to inadequate energy intake Signs/Symptoms as evidenced by estimated PO intake meeting <75% of estimated energy needs > 3 months, severe fat/muscle wasting per physical exam in orbital, temporal, clavicle, and acromion areas, BMI 19.1 Status Active Problem Biting/Chewing Difficulty Status Inactive Problem Recommendation Dietitian Recommendations/Changes 1) Continue via PEG- Jevity 1. 5 at goal rate of 40mL/hour w/ 120mL H2O flush every 4 hours to provide 1440 calories, 61 g protein, and 1449mL total fluid/day. 2) John BID via PEG. 3) Will monitor ability to resume PO diet and adjust enteral nutrition as indicated . Recommend regular diet- texture/consistency per FINANCIAL SALES CONSULTANT. 4) Continue daily wts. Lab / Micro Data Result Diagrams: 12/23/22 04:06 12/23/22 04:06 Labs: Laboratory Results - last 24 hr 12/22/22 12:45: APTT 55.6 H 12/22/22 18:55: APTT 67.8 H 12/23/22 01:45: APTT 89.4 H 12/23/22 04:06: Vancomycin Trough 17.4 H 12/23/22 04:06: WBC 13.1 H, RBC 3.41 L, Hgb 8.5 L, Hct 28.5 L, MCV 83.6, MCH 24.9 L, MCHC 29.8 L, RDW Std Deviation 79.9 H, RDW Coeff of Angie 27.2 H, Plt Count 438, MPV 10.4, Immature Gran % (Auto) 2.500 H, Neut % (Auto) 85.3 H, Lymph % (Auto) 3.4 L, [place] % (Auto) 7.0, Eos % (Auto) 1.0, Baso % (Auto) 0.8, Absolute Neuts (auto) 11.2 H, Absolute Lymphs (auto) 0.45 L, Nucleated RBC % 0, Polychromasia 1+, Anisocytosis 3+, Microcytosis 1+, Macrocytosis 1+ 12/23/22 04:06: Sodium 136, Potassium 3.7, Chloride 99, Carbon Dioxide 34.0 H, Anion Gap 3 L, BUN 14, Creatinine 0.24 L, Estim Creat Clear Calc 158.64, Est GFR (MDRD) Af Amer 365, Est GFR (MDRD) Non-Af 302, BUN/Creatinine Ratio 57.6 H, Glucose 102, Calcium 8.2 L 12/23/22 07:10: APTT 64.1 H Micro: Microbiology 12/20/22 08:30 Sputum, Induced/Lukens Gram Stain - Final 12/20/22 08:30 Sputum, Induced/Lukens Respiratory Culture - Final Ivanna albicans 12/18/22 09:10 Blood Culture (Wb) #2 - Anticubital Left Blood Culture - Preliminary No growth in 48 hours. 12/18/22 09:10 Blood Culture (Wb) - Anticubital Right Blood Culture - Preliminary No growth in 48 hours. 12/20/22 08:30 Stool Stool Occult Blood (SAMANTHA) - Final Occult Blood Positive Rhythm Strip Rhythm Strip: Sinus Rhythm Rate: 93 Ectopy: None Physical Exam Const alert, oriented x3 and no apparent distress Constitutional Narrative: Frail HEENT normocephalic, moist oral mucous membranes and oropharynx normal Eyes PERRL and EOMs intact bilaterally Neck no lymphadenopathy and supple Lymph Lymphatic: no lymphadenopathy noted and no lymphedema noted Resp Resp Narrative: Mildly diminished breath sounds bibasally. No wheezes or crackles. On 3L of oxygen by nasal canula, mildly tachypneic Cardio regular rhythm, S1 normal heart sound, S2 normal heart sound and no murmurs Cardio Narrative: tachypneic GI normal to inspection, nondistended, normoactive bowel sounds, soft to palpation, non-tender and non-distended GI Narrative: PEG tube in situ Extremity normal capillary refill, no clubbing, cyanosis or edema and no calf tenderness Skin General Skin Exam: no breakdown Neuro CN's II-XII intact bilaterally, no focal motor deficits, no sensory deficits noted and deep tendon reflexes 2+ bilaterally Motor Exam: strength 5/5 throughout Psych thought process normal Appearance: appropriate Assessment & Plan Assessment/Plan (1) Acute and chronic respiratory failure with hypoxia: (2) Left upper lobe pneumonia: PLAN: Plan #Acute on chronic hypoxic respiratory failure due to aspiration pneumonia versus health assisted pneumonia and left pleural effusion * remains on 3L of oxyen by nasal canula. * On broad-spectrum antibiotics-vancomycin and cefepime. She was recently admitted for similar complaints. * Breathing treatments of bronchodilators. Titrate oxygen to maintain saturation above 90%. * * #CAD s/p stents: On aspirin and high intensity statin. Also on plavix #Chronic diastolic heart failure: Diuretics on hold due to blood pressure running low. Will monitor. #Acute on chronic anemia: * Hemoglobin was low so she was transfused. * Stool for occult blood was also positive. * He had EGD which showed intact gastrostomy with patent G-tube and a single bleeding angiodysplastic lesion in the stomach which was treated with heater probe * #Paroxysmal A-fib: On amiodarone. Eliquis held, on heparin drip #Hypothyroidism: On Synthroid #Severe protein calorie malnutrition: * Nutrition on board. On tube feeds. * carafate switched to PO misoprostol so patient can have continuous tube feeds. #History of PE, was diagnosed with PE during the most recent admission. Currently on heparin drip. Will switch to eliquis via PEG tube #Oropharyngeal dysphagia: PEG tube in place. On tube feeds. #GERD: On PPI DVT prophylaxis: on heparin drip Disposition; awaiting placement Charges/Coding Visit Charges Inpatient E&M: 70118 Subs Hosp L2
--- NOTE | 2022-12-23 11:38 | WOUNDNOTE ---
wound photo: back
--- NOTE | 2022-12-23 11:39 | WOUNDNOTE ---
wound photo: sacrum
--- NOTE | 2022-12-23 12:54 | CASEMGMT ---
SW spoke with patient and she did talk with Jose Cruz. Patient said she would like to go to [facility]. SW told patient that [facility] has assisted living as well and maybe she could transition to their AL. Patient said she would like to do that. ROSMERY told patient that SW will contact her pillowcase cutter at [facility] regarding this. ROSMERY asked d/c materials planning analyst Emelyn to send a referral to [facility]. Gisella YAN
[2022-12-23 13:07] LABS: Partial Thromboplast Time 44.5 Seconds (24.1-36.2)
--- NOTE | 2022-12-23 13:32 | CASEMGMT ---
Discharge Planning Updates [facility]
[2022-12-23] MEDS: APIXABAN 5 MG TABLET GT ×2 (13:34→20:32)
--- NOTE | 2022-12-23 15:39 | CHAPLAIN ---
Type of Pastoral Visit ___ Initial Visit _x__ Follow-up Visit ___ On-call Visit ___ General Patient Visit ___ Spiritual Assessment ___ Family Conference ___ Bereavement ___ Rapid Response ___ Code Blue ___ Other (describe below) Pastoral Care Referral From _x__ Patient ___ Family ___ Nurse ___ Physician ___ Sharepoint Web Developer ___ Social Insurance Analyst ___ Other (describe below) Sacrament/Intervention ___ Active listening ___ Anointing ___ Yarsanism ___ Bereavement ___ Communion ___ Angie exploration ___ ___ Life review _x__ Prayer ___ Reconciliation ___ Sacrament of Sick _x__ Supportive presence ___ Wedding ___ Other (describe below) Pastoral Comments patient is awake but speaks slowly and softly from apparent weakness; pt states I'm back. I wish I didn't have to come back again. But I'm here.; offer of presence and support; pt requests a prayer; calming words and assurance of the care she deserves
--- NOTE | 2022-12-23 17:56 | PN_ITS ---
Subjective Subjective Patient is doing well from a GI standpoint. She had no signs or symptoms of bleeding yesterday. Objective Data Objective Data Vital Signs: Vital Signs Temp Pulse Resp BP Pulse Ox O2 Del Method O2 Flow Rate 97.8 F 102 H 38 H 104/62 94 Nasal Cannula 3 12/23/22 10:00 12/23/22 15:33 12/23/22 15:33 12/23/22 10:00 12/23/22 15:33 12/23/22 14:00 12/23/22 11:17 FiO2 40 12/23/22 15:33 Oxygen Flow Rate (L/min) 3 Oxygen Delivery Method Nasal Cannula Weight: 94 lb 12.78 oz Body Mass Index (BMI) 19.9 Intake & Output: Intake and Output for Last 24 Hours 12/21/22 12/22/22 12/23/22 23:59 23:59 23:59 Intake Total 2931.70 / 3051.70 2764.33 / 2764.33 1595.74 / 1595.74 Output Total 1150 / 1400 650 / 650 Balance 1781.70 / 1651.70 2114.33 / 2114.33 1595.74 / 1595.74 Medical Nutrition Assessment Dietitian: Malnutrition Criteria Met Start: 12/18/22 15:10 Freq: Status: Active Protocol: Document 12/23/22 14:33 (Rec: 12/23/22 14:33 [id number]) Nutrition Malnutrition Evidence of Malnutrition Exists Yes Malnutrition (severe): Chronic Evidenced By Suboptimal Energy Intake ( Severe),Physical Changes ( Severe) Intake Problem Increased Nutrient Needs (specify) Etiology protein r/t skin status Signs/Symptoms as evidenced by PI to coccyx and spine Status Active Problem Clinical Problem Swallowing Difficulty Etiology related to dysphagia Signs/Symptoms as evidenced by inability to consume PO nutrition Status Active Problem Chronic Disease or Condition Related Malnutrition Etiology chronic, severe malnutrition related to inadequate energy intake Signs/Symptoms as evidenced by estimated PO intake meeting <75% of estimated energy needs > 3 months, severe fat/muscle wasting per physical exam in orbital, temporal, clavicle, and acromion areas, BMI 19.1 Status Active Problem Biting/Chewing Difficulty Status Inactive Problem Recommendation Dietitian Recommendations/Changes 1) Will transition to bolus feeds via PEG- Jevity 1.5 180mL bolus 5x/day w/ 60mL H2O flush before and after each bolus to provide 1350 calories , 57 g protein, and 1284mL fluid/day. Would start w/ 60mL for first bolus, increase by 60mL as tolerated until goal volume is achieved. 2) John BID via PEG. 3) Will monitor ability to resume PO diet and adjust enteral nutrition as indicated . Recommend regular diet- texture/consistency per PROTOTYPER. 4) Continue daily wts. Lab / Micro Data Result Diagrams: 12/23/22 04:06 12/23/22 04:06 Labs: Laboratory Results - last 24 hr 12/22/22 18:55: APTT 67.8 H 12/23/22 01:45: APTT 89.4 H 12/23/22 04:06: Vancomycin Trough 17.4 H 12/23/22 04:06: WBC 13.1 H, RBC 3.41 L, Hgb 8.5 L, Hct 28.5 L, MCV 83.6, MCH 24.9 L, MCHC 29.8 L, RDW Std Deviation 79.9 H, RDW Coeff of Angie 27.2 H, Plt Count 438, MPV 10.4, Immature Gran % (Auto) 2.500 H, Neut % (Auto) 85.3 H, Lymph % (Auto) 3.4 L, [place] % (Auto) 7.0, Eos % (Auto) 1.0, Baso % (Auto) 0.8, Absolute Neuts (auto) 11.2 H, Absolute Lymphs (auto) 0.45 L, Nucleated RBC % 0, Polychromasia 1+, Anisocytosis 3+, Microcytosis 1+, Macrocytosis 1+ 12/23/22 04:06: Sodium 136, Potassium 3.7, Chloride 99, Carbon Dioxide 34.0 H, Anion Gap 3 L, BUN 14, Creatinine 0.24 L, Estim Creat Clear Calc 158.64, Est GFR (MDRD) Af Amer 365, Est GFR (MDRD) Non-Af 302, BUN/Creatinine Ratio 57.6 H, Glucose 102, Calcium 8.2 L 12/23/22 07:10: APTT 64.1 H 12/23/22 12:50: APTT 44.5 H Micro: Microbiology 12/18/22 09:10 Blood Culture (Wb) #2 - Anticubital Left Blood Culture - Final No growth in 5 days. 12/18/22 09:10 Blood Culture (Wb) - Anticubital Right Blood Culture - Final No growth in 5 days. 12/20/22 08:30 Sputum, Induced/Lukens Gram Stain - Final 12/20/22 08:30 Sputum, Induced/Lukens Respiratory Culture - Final Ivanna albicans 12/20/22 08:30 Stool Stool Occult Blood (SAMANTHA) - Final Occult Blood Positive Rhythm Strip Rhythm Strip: Sinus Rhythm Rate: 93 Ectopy: None Physical Exam Const alert, oriented x3 and no apparent distress Constitutional Narrative: Frail HEENT normocephalic, moist oral mucous membranes and oropharynx normal Eyes PERRL and EOMs intact bilaterally Neck no lymphadenopathy and supple Lymph Lymphatic: no lymphadenopathy noted and no lymphedema noted Resp Resp Narrative: Mildly diminished breath sounds bibasally. No wheezes or crackles. On 3L of oxygen by nasal canula, mildly tachypneic Cardio regular rhythm, S1 normal heart sound, S2 normal heart sound and no murmurs Cardio Narrative: tachypneic GI normal to inspection, nondistended, normoactive bowel sounds, soft to palpation, non-tender and non-distended GI Narrative: PEG tube in situ Extremity normal capillary refill, no clubbing, cyanosis or edema and no calf tenderness Skin General Skin Exam: no breakdown Neuro CN's II-XII intact bilaterally, no focal motor deficits, no sensory deficits noted and deep tendon reflexes 2+ bilaterally Motor Exam: strength 5/5 throughout Psych thought process normal Appearance: appropriate Assessment & Plan Assessment/Plan (1) Sepsis due to Streptococcus pneumoniae with acute hypoxic respiratory failure and septic shock: (2) Acute and chronic respiratory failure with hypoxia: (3) Recurrent pleural effusion: (4) Anemia: PLAN: Plan #Acute on chronic hypoxic respiratory failure due to recurrent right pleural effusion and community acquired pneumonia as well as PE * s/p right thoracentesis on 11/26/2022 with removal of 525 mls of stephen-colored fluid. * Blood cultures were positive for strep pneumonia. She was initially intubated in the ICU. She was started on IV meropenem. * She is also s/p bronchoscopy cultures of which showed no growth. She has had a complicated hospital because. * now on 2L of oxygen * 2D echo showed severely dilated RV with moderate RV systolic dysfunction and pulmonary artery systolic pressure of 55-60mmhg. #Pulmonary embolism * CTA of the chest showed PE with heart strain. It was a subsegmental PE in the right upper lobe * She was on Eliquis. She is on heparin drip. * She has a history of nose bleed and hematuria havent recurred #Anemia * Status post EGD with a active bleeding in the stomach secondary to angiodysplastic lesion that was treated endoscopically. Her hemoglobin seems to be a little bit stable at this time. 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 Eventually she will likely need a capsule study and likely a colonoscopy. #Hematuria: * resolved. Eliquis has been resumed and it hasn't recurred. #Hyponatremia * sodium is 128. May be due to fluid overload as her oxygen requirements is increasing * will diurese with IV lasix due to suspected fluid overload * trend sodium * #Moderate pulmonary hypertension: pulmonary artery systolic pressure is 55-60%, as above. Likely contributing to her respiratory failure. #CAD s/p stents: On aspirin as well as Lipitor and Plavix. #Hyperlipidemia: On statin #Paroxysmal A-fib: On amiodarone; on eliquis #Oropharyngeal dysphagia * Has PEG tube in place. Barium swallow showed moderate oropharyngeal disease patient with dysphagia retention. * Currently on a modified diet. Speech therapy and on tube feed for supplementation #Hypothyroidism: On Synthroid #Severe protein calorie malnutrition: On tube feeds and a modified diet. Nutrition on board. #GERD: On PPI DVT prophylaxis:eliquis Disposition: awaiting placement. Charges/Coding Visit Charges Inpatient E&M: 95101 Subs Hosp L3
[2022-12-23] MEDS: Jevity 1.5. 1,000 ML Bottle 180 ML GT ×2 (20:48→22:44)
[2022-12-24] VITALS (18 sets, daily range): BP systolic 88–114; BP diastolic 63–66; PULSE 90–106; RESP 12–34; TEMP 36.5–36.9; O2SAT 84–100; BMI 20.4
[2022-12-24] MEDS: Vancomycin IV 1,000 MG/200 ML BAG 200 MG IV ×2 (03:21→15:10)
[2022-12-24] MEDS: Sodium Chloride 0.65% 1 SPRAY SPRAY.BTL 2 SPRAY NASAL ×2 (05:36→15:20)
[2022-12-24] MEDS: Jevity 1.5. 1,000 ML Bottle 180 ML GT ×4 (05:37→21:08)
[2022-12-24] MEDS: 0.9% Saline Lock 10 ML Syringe IV ×5 (06:02→23:29)
[2022-12-24] MEDS: LORazepam 2 MG/ML Syringe 0.5 MG IV ×3 (06:02→23:29)
[2022-12-24] MEDS: Nystatin Powder 15gm Bottle 1 APPLIC TOPICAL ×3 (06:03→21:09)
[2022-12-24 06:34] LABS: Absolute Lymphocyte Count 0.37 X10^3/uL (0.83-4.51); Absolute Neutrophil Count 12.4 X10^3/uL (2.0-7.7); Basophil# 0.06 X10^3/uL; Basophil% 0.4 % (0-1); Eosinophils% 0.7 % (0-5); Hematocrit 28.2 % (37-47); Hemoglobin 8.3 g/dL (12.0-15.0); Lymphocyte # 0.37 X10^3/ul (0.83-4.51); Lymphocyte % 2.7 % (19-41); Mean Corp Hgb Conc 29.4 g/dL (32-36); Mean Corpuscular Hgb 24.7 pg (27.0-32.0); Mean Corpuscular Volume 83.9 fL (81-99); Mean Platelet Vol. 10.2 fl (6.2-12.0); Monocyte# 0.67 X10^3/uL; Monocyte% 4.8 % (0-10); NRBC Flagged by Analyzer 0 % (0-5); Neutrophil # 12.37 X10^3/uL (2.7-7.7); Neutrophil % 89.1 % (47-70); POSITIVE DIFFERENTIAL YES; POSITIVE MORPHOLOGY YES; Platelet Count 525 K/mm3 (150-450); RBC Distribution Width CV 26.7 % (11.6-14.6); RBC Distribution Width SD 80.2 fl (35.1-43.9); Red Blood Count 3.36 M/mm3 (4.2-5.4); White Blood Count 13.9 K/mm3 (4.4-11.0)
[2022-12-24 06:44] LABS: Differential Indicated SCAN CRITERIA MET
[2022-12-24 07:02] LABS: Anion Gap 5 (5-15); BUN 13 mg/dL (7-18); BUN/Creat Ratio 48.9 RATIO (10-20); Chloride 97 mmol/L (98-107); Creatinine, Serum 0.27 mg/dL (0.55-1.02); EST Glomerular Filtration Rate 272 mL/min (>60); Est Glom Filt Rate - Afr Amer 329 mL/min (>60); Estimated Creatinine Clearance 144.62 ml/min; Glucose 126 mg/dL (74-106); Potassium 3.7 mmol/L (3.5-5.1); Sodium Level 136 mmol/L (136-145)
[2022-12-24 08:02] LABS: Hypochromasia 1+; Platelet Estimate SLT INC (ADEQ); Platelet Morphology LARGE
[2022-12-24] MEDS: Ipratropium 0.5 MG/2.5 ML SOLUTION INHALATION ×4 (08:11→19:03)
--- NOTE | 2022-12-24 09:22 | PCM.PN.INT ---
Assessment & Plan Assessment/Plan (1) Acute and chronic respiratory failure with hypoxia: PLAN: Plan RECOMMENDATIONS: 1. Continue to wean supplemental oxygen to maintain saturations at or above 90%. 2. Continue empiric antimicrobials to complete 7-day treatment course. 3. Continue scheduled Atrovent aerosols. 4. Continue AVAPS therapy nightly. 5. Continue nutritional support via G-tube. 6. Continue Eliquis per home regimen. 7. Encourage incentive spirometer use and mobilize patient as tolerated. 8. We will sign off. Please call with any additional questions. IMPRESSIONS: 1. Acute on chronic hypoxemic respiratory failure Most likely secondary to flash pulmonary edema. The patient has a known history of underlying bronchiectasis and recurrent pleural effusion, which according to documentation, was previously felt to be cardiac in etiology.? The patient did undergo a VATS and pleurodesis on the right and in 2019 had a Pleurx catheter on the left side in 2019.? The patient has had discussion with her primary crew truck driver, Dr. Bernard Mcguire, regarding the feasibility of a left-sided pleurodesis. Given concerns for potential superimposed infection as well, plan to continue empiric antimicrobials. Continue AVAPS therapy with naps and nightly. 2.??History of subsegmental PE with RV dysfunction and pulmonary hypertension Okay to continue Eliquis from my perspective, given stability in the patient's hemoglobin. 3.??COPD with chronic bronchitis Continue scheduled Atrovent aerosols.? 4.??Pulmonary cachexia/hypothyroidism/GERD Complicates care, management, recovery and prognosis.? Continue supportive measures as noted above including tube feeds as tolerated. This note was generated with [employer] dictation software. It may contain incorrect words, spelling, and punctuation that were not noted in checking the note before signing. Subjective Subjective The patient was seen and examined at the bedside this morning. Events from the last 24 hours have been reviewed. The patient is currently afebrile, hemodynamically stable and maintaining appropriate oxygen saturations on 4 L/min via nasal cannula. The patient is documented to be overall net +10.7 L for the hospitalization. Hemoglobin is again stable. The patient is tentatively scheduled for a cookie swallow this afternoon. Objective Data Objective Data The patient's most recent lab work, culture data and imaging studies have all been personally reviewed. Surface echocardiogram from November 2022 demonstrated normal LV size and function with an ejection fraction of 70%. Pulmonary artery systolic pressure was estimated to be 55 to 60 mmHg. Vital Signs: Vital Signs Temp Pulse Resp BP Pulse Ox O2 Del Method O2 Flow Rate 97.7 F L 103 H 20 H 94/64 90 Nasal Cannula 4 12/24/22 04:20 12/24/22 08:14 12/24/22 08:14 12/24/22 04:20 12/24/22 08:14 12/24/22 08:14 12/24/22 08:14 FiO2 40 12/24/22 04:20 Oxygen Flow Rate (L/min) 4 Oxygen Delivery Method Nasal Cannula Weight: 97 lb 3.582 oz Body Mass Index (BMI) 20.4 Intake & Output: Intake and Output for Last 24 Hours 12/22/22 12/23/22 12/24/22 23:59 23:59 23:59 Intake Total 2764.33 / 2764.33 1755.74 / 1755.74 200 / 200 Output Total 650 / 650 Balance 2114.33 / 2114.33 1755.74 / 1755.74 200 / 200 Medical Nutrition Assessment Dietitian: Malnutrition Criteria Met Start: 12/18/22 15:10 Freq: Status: Active Protocol: Document 12/23/22 14:33 AG (Rec: 12/23/22 14:33 [id number]) Nutrition Malnutrition Evidence of Malnutrition Exists Yes Malnutrition (severe): Chronic Evidenced By Suboptimal Energy Intake ( Severe),Physical Changes ( Severe) Intake Problem Increased Nutrient Needs (specify) Etiology protein r/t skin status Signs/Symptoms as evidenced by PI to coccyx and spine Status Active Problem Clinical Problem Swallowing Difficulty Etiology related to dysphagia Signs/Symptoms as evidenced by inability to consume PO nutrition Status Active Problem Chronic Disease or Condition Related Malnutrition Etiology chronic, severe malnutrition related to inadequate energy intake Signs/Symptoms as evidenced by estimated PO intake meeting <75% of estimated energy needs > 3 months, severe fat/muscle wasting per physical exam in orbital, temporal, clavicle, and acromion areas, BMI 19.1 Status Active Problem Biting/Chewing Difficulty Status Inactive Problem Recommendation Dietitian Recommendations/Changes 1) Will transition to bolus feeds via PEG- Jevity 1.5 180mL bolus 5x/day w/ 60mL H2O flush before and after each bolus to provide 1350 calories , 57 g protein, and 1284mL fluid/day. Would start w/ 60mL for first bolus, increase by 60mL as tolerated until goal volume is achieved. 2) John BID via PEG. 3) Will monitor ability to resume PO diet and adjust enteral nutrition as indicated . Recommend regular diet- texture/consistency per TORPEDO WORKER. 4) Continue daily wts. Lab / Micro Data Attestation: I reviewed the patient's lab results. Result Diagrams: 12/25/22 05:05 12/25/22 05:05 Labs: Laboratory Results - last 24 hr 12/23/22 12:50: APTT 44.5 H 12/24/22 06:20: WBC 13.9 H, RBC 3.36 L, Hgb 8.3 L, Hct 28.2 L, MCV 83.9, MCH 24.7 L, MCHC 29.4 L, RDW Std Deviation 80.2 H, RDW Coeff of Angie 26.7 H, Plt Count 525 H, MPV 10.2, Immature Gran % (Auto) 2.300 H, Neut % (Auto) 89.1 H, Lymph % (Auto) 2.7 L, [place] % (Auto) 4.8, Eos % (Auto) 0.7, Baso % (Auto) 0.4, Absolute Neuts (auto) 12.4 H, Absolute Lymphs (auto) 0.37 L, Nucleated RBC % 0, Platelet Estimate SLT [employer], Plt Morphology Comment LARGE, Hypochromasia 1+ 12/24/22 06:20: Sodium 136, Potassium 3.7, Chloride 97 L, Carbon Dioxide 34.0 H, Anion Gap 5, BUN 13, Creatinine 0.27 L, Estim Creat Clear Calc 144.62, Est GFR (MDRD) Af Amer 329, Est GFR (MDRD) Non-Af 272, BUN/Creatinine Ratio 48.9 H, Glucose 126 H, Calcium 8.0 L Micro: Microbiology 12/18/22 09:10 Blood Culture (Wb) #2 - Anticubital Left Blood Culture - Final No growth in 5 days. 12/18/22 09:10 Blood Culture (Wb) - Anticubital Right Blood Culture - Final No growth in 5 days. 12/20/22 08:30 Sputum, Induced/Lukens Gram Stain - Final 12/20/22 08:30 Sputum, Induced/Lukens Respiratory Culture - Final Ivanna albicans 12/20/22 08:30 Stool Stool Occult Blood (SAMANTHA) - Final Occult Blood Positive Radiography Diagnostic Testing: Radiology Impression Chest X-Ray 12/21/22 15:01 IMPRESSION: Increasing airspace disease in the left upper lung field and right lung base with stable bilateral pleural effusions. Electronically Signed: Stephen German MD at 15:32 EDT Reading Location ID and State: [facility] / [place] Tel , Service support , Rhythm Strip Rhythm Strip: Sinus Rhythm Rate: 93 Ectopy: None Physical Exam Const alert and no apparent distress General Appearance: cooperative and frail HEENT normocephalic and head/scalp atraumatic Eyes PERRL, EOMs intact bilaterally and conjunctivae normal Neck supple General: trachea midline Chest inspection of chest normal Resp normal respiratory effort Effort and Inspection: tachypneic Auscultation: diminished lung sounds; Negative for rales, rhonchi or wheezes Cardio regular rate and regular rhythm GI normal to inspection, nondistended, normoactive bowel sounds Inspection: GI tube present Extremity no clubbing, cyanosis or edema Skin no rashes or lesions noted Neuro CN's II-XII intact bilaterally and no focal motor deficits Psych Mood & Affect: flat affect Charges/Coding Visit Charges Inpatient E&M: 03518 Subs Hosp L2
[2022-12-24] MEDS: Juven (unflavored) Packet 1 PACKET GT ×2 (09:39→17:53)
[2022-12-24] MEDS: APIXABAN 5 MG TABLET GT ×2 (09:50→21:09)
[2022-12-24] MEDS: Acetaminophen 650 MG/20 ML UDC GT ×2 (10:01→21:33)
--- NOTE | 2022-12-24 11:14 | CASEMGMT ---
Discharge Planning Received call from Parminder Sanchez. They have accepted and requested updated notes to submit with pre-cert. [facility] Emelyn Ulloa
--- NOTE | 2022-12-24 13:18 | SP.MBSS_ITS ---
Modified Barium Swallow - Patient Information Study Date: 12/24/22 Study Time: 13:30 Direct Billable Minutes: 115 Total Minutes procedure & reportin Diagnosis: Acute & Chronic Respiratory Failure w/hypoxia(J96.21),COPD(J44.) Referring Physician: Juana Cerda Reason for Referral: Objectively assess swallow function, assess risk for aspiration, and determine recommendations for least restrictive diet textures and compensatory strategies to improve safety of swallow. Medical History: Kaitlin Everett is a 67-year-old female with a history of acute and chronic respiratory failure with hypoxia, alcohol abuse, angioedema, recurrent pleural effusion, bronchiectasis non-tuberculous, cachexia, CHF, contusion of right lower leg, initial encounter, COPD, former smoker, GERD, hx of non-ST elevation myocardial infarction (NSTEMI) (06/18/20), hypothyroidism, restrictive pericarditis, secondary pulmonary arterial hypertension, sepsis due to S treptococcus pneumoniae with acute hypoxic respiratory failure and septic shock, and severe malnutrition. [facility]. She stated that she did not start really feeling short of breath until yesterday however documentation states that she was started on Levaquin 3 days ago for shortness of breath. There was concern for new bacterial pneumonia. Per reported she was 5 L nasal cannula the morning of admission and was satting only 70%. When she came in she was in respiratory distress with tachypnea and retractions and initially was placed on a nonrebreather and then with a continued tachypnea was transitioned to BiPAP. ABG did not demonstrate hypercapnia, but it does show hypoxia.??In the ER she has a slight leukocytosis as well as an anemia, renal function is stable, and her BNP is slightly elevated to 200 which is less than what it was during her last admission here for septic shock between the end of October and the end of November.??Pt was intubated 11/21/22 and extubated 11/27/22. She was evaluated at bedside by ST and recommended NPO during previous admission, with plans for MBSS prior to diet advancement. PEG tube was placed 11/30/22. MBSS completed on 12/02/22 and was recommended to remain NPO with consideration for advancement to soft and bite size textures and honey/moderately thick liquids with use of st rategies upon a skilled meal analysis. See MBSS on 12/02/22 for full report. Per skilled meal analysis, and patient preference, patient was recommended puree textures and honey/moderately thick liquids. Patient was discharged and recommended for nectar/mildly thick liquids, and puree textures by [facility] speech therapist. Chest X-Ray completed on 12/18/2022 increasing left pleural effusion with left basilar atelectasis, stable pleural parenchymal changes at the right lung base, and questionable early infiltrate in the left upper lobe. EDG completed on 12/21/22 with a single bleeding angiodysplastic lesion in the stomach, ans was treated with a heater probe. See report for full details. Patient re-evaluated for speech therapy on 12/18/22, following current admission, and recommended to remain NPO, due to overt s/s of aspiration, and current respiratory status, and to re-assess risk/presence of aspiration and determine LRD. Patient required bipap for a few days, and deemed not appropriate, by CORRECTIVE THERAPY AIDE, for MBSS until 12/24/22. Current Diet Ordered: NPO Dentition: Missing Teeth Respiratory Status: Oxygenating on 4L/M nasal cannula - Penetration-Aspiration Scale Penetration-Aspiration Scale: OBJECTIVE ASSESSMENT OF SWALLOW FUNCTION (QUANTITATIVE ? PER TRIAL): PENETRATION / ASPIRATION SCALE (JAVED): 1 = does not enter airway 2 = enters airway/above vocal folds/ejected 3 = enters airway/above vocal folds/not ejected 4 = enters airway/contacts vocal folds/ejected 5 = enters airway/contacts vocal folds/not ejected 6 = enters airway/below vocal folds/ejected 7 = enters airway/below vocal folds/not ejected despite effort 8 = enters airway/below vocal folds/no effort VIDEOFLOROSCOPIC SCALE SCORE (JAVED): Grade I = aspiration of material that has penetrated into the laryngeal vestibule, intact cough reflex Grade II = aspiration < 10 % of the bolus, intact cough reflex Grade III = aspiration of < 10 % of the bolus, reduced cough reflex or aspiration of > 10 % of the bolus, intact cough reflex Grade IV = aspiration of > 10 % of the bolus, reduced cough reflex - Penetration-Aspiration Scale Score Thin Liquid via teaspoon Result: 3= enters airways/above vocal folds/not ejected - reflexive cough, seen on VF during the next trial Thin Liquid via teaspoon cued cough X2 Result: 8= enters airway/below vocal folds/no effort [place] Thick Liquid via teaspoon Result: 7= enters airways/below vocal folds/not ejected despite effort Honey Thick Liquid via teaspoon Result: 2= enter airway/above vocal folds/ejected Honey Thick Liquid via small single sip from cup Result: 2= enter airway/above vocal folds/ejected Pudding via teaspoon w/esophageal screen Result: 1= does not enter airway Honey Thick Liquid via teaspoon w/esophageal screen Result: 2= enter airway/above vocal folds/ejected 1/4 Cookie Result: 1= does not enter airway - Oral Phase Labial Seal: Interlabial escape, no progression to anterior lip Tongue Control During Bolus Hold: Escape to lateral buccal cavity/floor of mouth Bolus Preparation/Mastication: Slow prolonged chewing/mashing with complete recollection Bolus Transport/Lingual Motion: Repetitive/disorganized tongue motion Oral Residue: Residue collection on oral structures - Pharyngeal Phase Initiation of Pharyngeal Swallow: Bolus head in valleculae Soft Palate Elevation: No bolus between soft palate and pharyngeal wall Laryngeal Elevation: Partial superior movement thyroid cart/partial apprx aryt- epig petiole Anterior Hyoid Excursion: Partial anterior movement Epiglottic Movement: Partial inversion Laryngeal Vestibule Closure at Height of Swallow: Incomplete; narrow column of air/contrast in laryngeal vestibule Pharyngeal Stripping Wave: Present - diminished Pharyngoesophageal Segment Opening: Parital distension and partial duration; parital obstruction of flow Tongue Base Retraction: Wide column of contrast between tongue base & post. pharyngeal wall Pharyngeal Residue: Collection of residue within or on pharyngeal structures - Esophageal Phase Esophageal Clearance: Esophageal retention w/ retrograde flow below pharyngoesophageal seg. - Treatment Strategies Effects of treatment strategies attemped:: cough & re-swallow = not effective - Diagnosis/Impression Diagnosis: Moderate Oropharyngeal Dysphagia (R13.12), Esophageal Dysphagia (R13.14) Impression: The oral phase is primarily marked by... -Prolonged mastication of 1/4 cookie with pieces left unchewed. -Repetitive and prolonged tongue movement. -Piecemeal deglutition observed during cookie trial; although, majority of cookie did effectively clear from oral cavity after 2 swallows, which the patient independently initiated. ? The pharyngeal phase is primarily marked by... -Decreased airway closure during the swallow due to decreased anterior hyoid excursion and laryngeal elevation. Little to no epiglottic inversion observed during the study. ?-Mild-moderate pharyngeal residues due moderately decreased tongue base retraction, mild-moderately diminished pharyngeal stripping wave, and mildly decreased UES opening/duration. ?-SILENT aspiration of thin liquid. Cued cough was not effective to clear contrast from the laryngeal vestibule after the swallow. Overt aspiration of nectar/mildly thick liquids, which did not reliably eject after independent cough. Deep laryngeal penetration of thin by tsp, which did not fully eject after reflexive cough, placing patient at increased risk for post prandial aspiration. ? The esophageal phase is primarily marked by... -Retention of pudding barium throughout the esophagus with min retrograde flow remaining below UES, which did not reliably clear with honey/moderately thick liquid wash. - Recommendations Diet: NPO Comment: Would NOT recommend patient advance diet at this time due to esophageal concerns. CORRECTIVE THERAPY AIDE has placed call to Dr. Carter to inquire about appropriateness for further GI work up to address esophageal dysphagia concerns, awaiting response. CORRECTIVE THERAPY AIDE is recommending patient for trials of ice chips with CORRECTIVE THERAPY AIDE in upcoming sessions to consider appropriateness for Modified [place] Free Water Protocol (ice chips, one at a time w/ supervision and after oral care). Will also consider the patient for limited trials (2-3 bites/sips of each) of moist purees (IDDSI Level 4), and honey/moderately thick liquids (IDDSI Level 3) with speech therapy only - STOP if s/s of reflux or regurgitation. Consider further diet advancement to moist purees / honey/moderately thick liquids if GI is able to address poor esophageal clearance of thicker viscosities AND pt tolerates meal trial with CORRECTIVE THERAPY AIDE. Compensatory strategies would include small bites/sips, slow rate, alternate bites/sips, sitting upright, remain upright 30-60 min after meals. Recommend Repeat Modified Barium Swallow: Yes Need for Skilled Speech Therapy Services: Yes Comment: Will recommend the patient for dysphagia therapy to address deficits in oropharyngeal swallow function. Will recommend the patient for oropharyngeal strengthening to improve lingual coordination, laryngeal elevation, and hyoid excursion. Would recommend exercises including Lingual Resistance, Kathy, CTAR, Effortful Swallow, and Miguel A. The patient would benefit from thorough education regarding diet recommendations and recommended compensatory strategies. Consider repeat MBSS after 2-4 weeks of implementation of oropharyngeal exercise program prior to diet advancement due to SILENT nature of aspiration. Education Completed: 1. Described result of evaluation., 2. Pt understands evaluation & agrees with goals and treatment plan., 7. Pt requires further education on strategies & risks. - Status Active ST Patient: Active - Contact Information [facility] Speech Therapy:: Ebony Locke M.A. [facility]-CORRECTIVE THERAPY AIDE Speech-Language Pathologist [facility] [address] [place] [address] [email or web address] [phone] 12/24/22 17:17
--- NOTE | 2022-12-24 13:31 | PN_ITS ---
Subjective Subjective Patient seen and examined. She had no active complaints and feels well. Review of systems is otherwise negative. REview of systems is otherwise negative. Objective Data Objective Data Vital Signs: Vital Signs Temp Pulse Resp BP Pulse Ox O2 Del Method O2 Flow Rate 97.9 F 102 H 20 H 102/64 91 Nasal Cannula 4 12/24/22 09:35 12/24/22 11:19 12/24/22 11:19 12/24/22 09:35 12/24/22 10:36 12/24/22 10:00 12/24/22 10:36 FiO2 40 12/24/22 04:20 Oxygen Flow Rate (L/min) 4 Oxygen Delivery Method Nasal Cannula Weight: 97 lb 3.582 oz Body Mass Index (BMI) 20.4 Intake & Output: Intake and Output for Last 24 Hours 12/22/22 12/23/22 12/24/22 23:59 23:59 23:59 Intake Total 2764.33 / 2764.33 1755.74 / 1755.74 723.25 / 723.25 Output Total 650 / 650 Balance 2114.33 / 2114.33 1755.74 / 1755.74 723.25 / 723.25 Medical Nutrition Assessment Dietitian: Malnutrition Criteria Met Start: 12/18/22 15:10 Freq: Status: Active Protocol: Document 12/23/22 14:33 (Rec: 12/23/22 14:33 [id number]) Nutrition Malnutrition Evidence of Malnutrition Exists Yes Malnutrition (severe): Chronic Evidenced By Suboptimal Energy Intake ( Severe),Physical Changes ( Severe) Intake Problem Increased Nutrient Needs (specify) Etiology protein r/t skin status Signs/Symptoms as evidenced by PI to coccyx and spine Status Active Problem Clinical Problem Swallowing Difficulty Etiology related to dysphagia Signs/Symptoms as evidenced by inability to consume PO nutrition Status Active Problem Chronic Disease or Condition Related Malnutrition Etiology chronic, severe malnutrition related to inadequate energy intake Signs/Symptoms as evidenced by estimated PO intake meeting <75% of estimated energy needs > 3 months, severe fat/muscle wasting per physical exam in orbital, temporal, clavicle, and acromion areas, BMI 19.1 Status Active Problem Biting/Chewing Difficulty Status Inactive Problem Recommendation Dietitian Recommendations/Changes 1) Will transition to bolus feeds via PEG- Jevity 1.5 180mL bolus 5x/day w/ 60mL H2O flush before and after each bolus to provide 1350 calories , 57 g protein, and 1284mL fluid/day. Would start w/ 60mL for first bolus, increase by 60mL as tolerated until goal volume is achieved. 2) John BID via PEG. 3) Will monitor ability to resume PO diet and adjust enteral nutrition as indicated . Recommend regular diet- texture/consistency per ACID CLEANER. 4) Continue daily wts. Lab / Micro Data Result Diagrams: 12/24/22 06:20 12/24/22 06:20 Labs: Laboratory Results - last 24 hr 12/24/22 06:20: WBC 13.9 H, RBC 3.36 L, Hgb 8.3 L, Hct 28.2 L, MCV 83.9, MCH 24.7 L, MCHC 29.4 L, RDW Std Deviation 80.2 H, RDW Coeff of Angie 26.7 H, Plt Count 525 H, MPV 10.2, Immature Gran % (Auto) 2.300 H, Neut % (Auto) 89.1 H, Lymph % (Auto) 2.7 L, Benson % (Auto) 4.8, Eos % (Auto) 0.7, Baso % (Auto) 0.4, Absolute Neuts (auto) 12.4 H, Absolute Lymphs (auto) 0.37 L, Nucleated RBC % 0, Platelet Estimate SLT INC, Plt Morphology Comment LARGE, Hypochromasia 1+ 12/24/22 06:20: Sodium 136, Potassium 3.7, Chloride 97 L, Carbon Dioxide 34.0 H, Anion Gap 5, BUN 13, Creatinine 0.27 L, Estim Creat Clear Calc 144.62, Est GFR (MDRD) Af Amer 329, Est GFR (MDRD) Non-Af 272, BUN/Creatinine Ratio 48.9 H, Glucose 126 H, Calcium 8.0 L Micro: Microbiology 12/18/22 09:10 Blood Culture (Wb) #2 - Anticubital Left Blood Culture - F inal No growth in 5 days. 12/18/22 09:10 Blood Culture (Wb) - Anticubital Right Blood Culture - Final No growth in 5 days. 12/20/22 08:30 Sputum, Induced/Lukens Gram Stain - Final 12/20/22 08:30 Sputum, Induced/Lukens Respiratory Culture - Final Ivanna albicans 12/20/22 08:30 Stool Stool Occult Blood (SAMANTHA) - Final Occult Blood Positive Rhythm Strip Rhythm Strip: Sinus Rhythm Rate: 93 Ectopy: None Physical Exam Const alert, oriented x3 and no apparent distress Constitutional Narrative: Frail HEENT normocephalic, moist oral mucous membranes and oropharynx normal Eyes PERRL and EOMs intact bilaterally Neck no lymphadenopathy and supple Lymph Lymphatic: no lymphadenopathy noted and no lymphedema noted Resp Resp Narrative: Mildly diminished breath sounds bibasally. No wheezes or crackles. Remains on 3L of oxygen by nasal canula, mildly tachypneic Cardio regular rhythm, S1 normal heart sound, S2 normal heart sound and no murmurs Cardio Narrative: mildly tachypneic GI normal to inspection, nondistended, normoactive bowel sounds, soft to palpation, non-tender and non-distended GI Narrative: PEG tube in situ Extremity normal capillary refill, no clubbing, cyanosis or edema and no calf tenderness Skin General Skin Exam: no breakdown Neuro CN's II-XII intact bilaterally, no focal motor deficits, no sensory deficits noted and deep tendon reflexes 2+ bilaterally Motor Exam: strength 5/5 throughout Psych thought process normal Appearance: appropriate Assessment & Plan Assessment/Plan (1) Acute and chronic respiratory failure with hypoxia: (2) Left upper lobe pneumonia: PLAN: Plan #Acute on chronic hypoxic respiratory failure due to aspiration pneumonia versus health assisted pneumonia and left pleural effusion * remains on 3L of oxyen by nasal canula. * On broad-spectrum antibiotics-vancomycin and cefepime. To complete a 7 day course. Will dc antibiotics tomorrow * She was recently admitted for similar complaints. * Breathing treatments of bronchodilators. Titrate oxygen to maintain saturation above 90%. * * #CAD s/p stents: On aspirin and high intensity statin. Also on plavix #Chronic diastolic heart failure: Diuretics on hold due to blood pressure running low. Will monitor. #Acute on chronic anemia: * Hemoglobin was low so she was transfused. * Stool for occult blood was also positive. * He had EGD which showed intact gastrostomy with patent G-tube and a single bleeding angiodysplastic lesion in the stomach which was treated with heater probe * hb today is 8.3 * #Paroxysmal A-fib: On amiodarone. back on eliquis and heparin drip dc'd #Hypothyroidism: On Synthroid #Severe protein calorie malnutrition: * Nutrition on board. On tube feeds. * #History of PE, was diagnosed with PE during the most recent admission. on eliquis via PEG tube #Oropharyngeal dysphagia: PEG tube in place. On tube feeds. #GERD: On PPI DVT prophylaxis: on eliquis Disposition; awaiting placement Charges/Coding Visit Charges Inpatient E&M: 41274 Subs Hosp L2
[2022-12-25] VITALS (28 sets, daily range): BP systolic 100–118; BP diastolic 59–79; PULSE 85–103; RESP 12–28; TEMP 36.3–36.9; O2SAT 86–100; BMI 20.6
--- NOTE | 2022-12-25 00:28 | NURSING ---
Pt was 84% on 4L NC, c/o SOB. Pt has weak nonproductive cough, LS dim. Increased 02 to 6L NC, 02 sats went up to 93%. Encouraged pt to cough and deep breath and use peep device. Cont pulse ox device at bedside.
[2022-12-25] MEDS: Vancomycin IV 1,000 MG/200 ML BAG 200 MG IV ×2 (03:37→16:17)
[2022-12-25] MEDS: Sodium Chloride 0.65% 1 SPRAY SPRAY.BTL 2 SPRAY NASAL ×2 (03:40→10:23)
[2022-12-25 05:55] LABS: Absolute Lymphocyte Count 0.45 X10^3/uL (0.83-4.51); Basophil# 0.07 X10^3/uL; Basophil% 0.5 % (0-1); Eosinophil# 0.04 X10^3/uL; Eosinophils% 0.3 % (0-5); Hematocrit 26.9 % (37-47); Lymphocyte # 0.45 X10^3/ul (0.83-4.51); Mean Corp Hgb Conc 29.7 g/dL (32-36); Mean Corpuscular Hgb 24.9 pg (27.0-32.0); Mean Corpuscular Volume 83.8 fL (81-99); Mean Platelet Vol. 10.5 fl (6.2-12.0); Monocyte# 0.95 X10^3/uL; Monocyte% 6.4 % (0-10); NRBC Flagged by Analyzer 0 % (0-5); Neutrophil # 13.02 X10^3/uL (2.7-7.7); Neutrophil % 88.1 % (47-70); POSITIVE DIFFERENTIAL YES; POSITIVE MORPHOLOGY YES; Platelet Count 598 K/mm3 (150-450); RBC Distribution Width CV 26.5 % (11.6-14.6); RBC Distribution Width SD 79.1 fl (35.1-43.9); Red Blood Count 3.21 M/mm3 (4.2-5.4); White Blood Count 14.8 K/mm3 (4.4-11.0)
[2022-12-25] MEDS: Nystatin Powder 15gm Bottle 1 APPLIC TOPICAL ×3 (06:06→21:01)
[2022-12-25] MEDS: LORazepam 2 MG/ML Syringe 0.5 MG IV ×3 (06:06→21:00)
[2022-12-25] MEDS: 0.9% Saline Lock 10 ML Syringe IV ×2 (06:06→21:01)
[2022-12-25] MEDS: Jevity 1.5. 1,000 ML Bottle 180 ML GT ×4 (06:07→21:06)
[2022-12-25 06:13] LABS: Differential Indicated SCAN CRITERIA MET
[2022-12-25 06:27] LABS: Anion Gap 5 (5-15); BUN 23 mg/dL (7-18); BUN/Creat Ratio 63.5 RATIO (10-20); Chloride 95 mmol/L (98-107); Creatinine, Serum 0.36 mg/dL (0.55-1.02); EST Glomerular Filtration Rate 191 mL/min (>60); Est Glom Filt Rate - Afr Amer 231 mL/min (>60); Estimated Creatinine Clearance 109.69 ml/min; Glucose 162 mg/dL (74-106); Potassium 3.7 mmol/L (3.5-5.1); Sodium Level 133 mmol/L (136-145)
[2022-12-25] MEDS: Ipratropium 0.5 MG/2.5 ML SOLUTION INHALATION ×4 (06:58→20:52)
[2022-12-25 08:10] LABS: Anisocytosis 1+
[2022-12-25] MEDS: APIXABAN 5 MG TABLET GT ×2 (10:23→21:06)
[2022-12-25] MEDS: Juven (unflavored) Packet 1 PACKET GT ×2 (10:23→17:32)
[2022-12-25] MEDS: Acetaminophen 650 MG/20 ML UDC GT ×2 (10:23→17:26)
--- NOTE | 2022-12-25 10:54 | PN_ITS ---
Subjective Subjective Patient seen and examined. She was on BIPAP. She complaiend of her lower extremities being swollen. Review of systems is otherwise negative. She has remained hemodynamically stable otherwise. Objective Data Objective Data Vital Signs: Vital Signs Temp Pulse Resp BP Pulse Ox O2 Del Method O2 Flow Rate 98.1 F 102 H 22 H 108/72 92 High Flow 6 12/25/22 10:20 12/25/22 10:20 12/25/22 10:20 12/25/22 10:20 12/25/22 10:22 12/25/22 10:22 12/25/22 10:22 FiO2 40 12/25/22 06:58 Oxygen Flow Rate (L/min) 6 Oxygen Delivery Method High Flow Weight: 98 lb 5.219 oz Body Mass Index (BMI) 20.6 Intake & Output: Intake and Output for Last 24 Hours 12/23/22 12/24/22 12/25/22 23:59 23:59 23:59 Intake Total 1755.74 / 1755.74 2417.50 / 2417.50 573.75 / 573.75 Balance 1755.74 / 1755.74 2417.50 / 2417.50 573.75 / 573.75 Medical Nutrition Assessment Dietitian: Malnutrition Criteria Met Start: 12/18/22 15:10 Freq: Status: Active Protocol: Document 12/23/22 14:33 AG (Rec: 12/23/22 14:33 [id number]) Nutrition Malnutrition Evidence of Malnutrition Exists Yes Malnutrition (severe): Chronic Evidenced By Suboptimal Energy Intake ( Severe),Physical Changes ( Severe) Intake Problem Increased Nutrient Needs (specify) Etiology protein r/t skin status Signs/Symptoms as evidenced by PI to coccyx and spine Status Active Problem Clinical Problem Swallowing Difficulty Etiology related to dysphagia Signs/Symptoms as evidenced by inability to consume PO nutrition Status Active Problem Chronic Disease or Condition Related Malnutrition Etiology chronic, severe malnutrition related to inadequate energy intake Signs/Symptoms as evidenced by estimated PO intake meeting <75% of estimated energy needs > 3 months, severe fat/muscle wasting per physical exam in orbital, temporal, clavicle, and acromion areas, BMI 19.1 Status Active Problem Biting/Chewing Difficulty Status Inactive Problem Recommendation Dietitian Recommendations/Changes 1) Will transition to bolus feeds via PEG- Jevity 1.5 180mL bolus 5x/day w/ 60mL H2O flush before and after each bolus to provide 1350 calories , 57 g protein, and 1284mL fluid/day. Would start w/ 60mL for first bolus, increase by 60mL as tolerated until goal volume is achieved. 2) John BID via PEG. 3) Will monitor ability to resume PO diet and adjust enteral nutrition as indicated . Recommend regular diet- texture/consistency per WIRE TURNING MACHINE OPERATOR. 4) Continue daily wts. Lab / Micro Data Result Diagrams: 12/25/22 05:05 12/25/22 05:05 Labs: Laboratory Results - last 24 hr 12/25/22 05:05: WBC 14.8 H, RBC 3.21 L, Hgb 8.0 L, Hct 26.9 L, MCV 83.8, MCH 24.9 L, MCHC 29.7 L, RDW Std Deviation 79.1 H, RDW Coeff of Angie 26.5 H, Plt Count 598 H, MPV 10.5, Immature Gran % (Auto) 1.700 H, Neut % (Auto) 88.1 H, Lymph % (Auto) 3.0 L, [place] % (Auto) 6.4, Eos % (Auto) 0.3, Baso % (Auto) 0.5, Absolute Neuts (auto) 13.0 H, Absolute Lymphs (auto) 0.45 L, Nucleated RBC % 0, Differential Comment COMMENT, Anisocytosis 1+ 12/25/22 05:05: Sodium 133 L, Potassium 3.7, Chloride 95 L, Carbon Dioxide 33.0 H, Anion Gap 5, BUN 23 H, Creatinine 0.36 L, Estim Creat Clear Calc 109.69, Est GFR (MDRD) Af Amer 231, Est GFR (MDRD) Non-Af 191, BUN/Creatinine Ratio 63.5 H, Glucose 162 H, Calcium 8.0 L Micro: Microbiology 12/18/22 09:10 Blood Culture (Wb) #2 - Anticubital Left Blood Culture - Final No growth in 5 days. 12/18/22 09:10 Blood Culture (Wb) - Anticubital Right Blood Culture - Final No growth in 5 days. 12/20/22 08:30 Sputum, Induced/Lukens Gram Stain - Final 12/20/22 08:30 Sputum, Induced/Lukens Respiratory Culture - Final Ivanna albicans 12/20/22 08:30 Stool Stool Occult Blood (SAMANTHA) - Final Occult Blood Positive Rhythm Strip Rhythm Strip: Sinus Rhythm Rate: 93 Ectopy: None Physical Exam Const alert, oriented x3 and no apparent distress Constitutional Narrative: Frail HEENT normocephalic, moist oral mucous membranes and oropharynx normal Eyes PERRL and EOMs intact bilaterally Neck no lymphadenopathy and supple Lymph Lymphatic: no lymphadenopathy noted and no lymphedema noted Resp Resp Narrative: Mildly diminished breath sounds bibasally. No wheezes or crackles. on BIPAP this morning, subsequently weaned off to 6L of oxygen by nasal canula Cardio regular rate, regular rhythm, S1 normal heart sound, S2 normal heart sound and no murmurs GI normal to inspection, nondistended, normoactive bowel sounds, soft to palpation, non-tender and non-distended GI Narrative: PEG tube in situ Extremity normal capillary refill and no calf tenderness Extremity Narrative: bilateral 2+ pitting pedal edema Skin General Skin Exam: no breakdown Neuro CN's II-XII intact bilaterally, no focal motor deficits, no sensory deficits noted and deep tendon reflexes 2+ bilaterally Motor Exam: strength 5/5 throughout Psych thought process normal Appearance: appropriate Assessment & Plan Assessment/Plan (1) Acute and chronic respiratory failure with hypoxia: (2) Left upper lobe pneumonia: PLAN: Plan #Acute on chronic hypoxic respiratory failure due to aspiration pneumonia versus health assisted pneumonia and left pleural effusion * remains on 3L of oxyen by nasal canula. * On broad-spectrum antibiotics-vancomycin and cefepime. To complete a 7 day course. Will dc antibiotics today. * She was recently admitted for similar complaints. * Breathing treatments of bronchodilators. Titrate oxygen to maintain saturation above 90%. * * #CAD s/p stents: On aspirin and high intensity statin. Also on plavix #Chronic diastolic heart failure: Diuretics on hold due to blood pressure running low. Will resume diuretics today due to lower exremity edema #Acute on chronic anemia: * Hemoglobin was low so she was transfused. * Stool for occult blood was also positive. * He had EGD which showed intact gastrostomy with patent G-tube and a single bleeding angiodysplastic lesion in the stomach which was treated with heater probe * hb today is 8.3 * #Paroxysmal A-fib: On amiodarone. back on eliquis and heparin drip dc'd #Hypothyroidism: On Synthroid #Severe protein calorie malnutrition: * Nutrition on board. On tube feeds. * #History of PE, was diagnosed with PE during the most recent admission. on eliquis via PEG tube #Oropharyngeal dysphagia: PEG tube in place. On tube feeds. #GERD: On PPI DVT prophylaxis: on eliquis Disposition; awaiting placement. Precert pending Charges/Coding Visit Charges Inpatient E&M: 02209 Subs Hosp L2
[2022-12-25] MEDS: Furosemide 40 MG/4 ML Vial IV (11:28)
--- NOTE | 2022-12-25 12:52 | CASEMGMT ---
ROSMERY called Marbella at [facility] per her request. Marbella stated they are concerned about taking patient with the amount of O2 she requires with movement. Their concentrators only go up to 5L. ROSMERY let Marbella know patient is not ready for discharge today so we can talk again on Wednesday and hopefully she won't require as much O2. Gisella Pires INSULATION WORKER VP [employer]FORMAT[employer]
[2022-12-26] VITALS (25 sets, daily range): BP systolic 89–103; BP diastolic 56–77; PULSE 90–103; RESP 12–36; TEMP 36.1–37.3; O2SAT 66–100; BMI 20.6
[2022-12-26] MEDS: Acetaminophen 650 MG/20 ML UDC GT ×2 (01:46→09:58)
[2022-12-26] MEDS: Nystatin Powder 15gm Bottle 1 APPLIC TOPICAL ×3 (03:41→22:48)
[2022-12-26] MEDS: Vancomycin IV 1,000 MG/200 ML BAG 200 MG IV (03:41)
[2022-12-26] MEDS: LORazepam 2 MG/ML Syringe 0.5 MG IV ×3 (04:20→22:49)
[2022-12-26] MEDS: 0.9% Saline Lock 10 ML Syringe IV ×6 (04:20→23:05)
[2022-12-26] MEDS: Jevity 1.5. 1,000 ML Bottle 180 ML GT ×5 (05:27→22:49)
[2022-12-26] MEDS: Ondansetron 4 MG/2 ML Vial IV (07:01)
[2022-12-26 07:43] LABS: Absolute Lymphocyte Count 0.44 X10^3/uL (0.83-4.51); Absolute Neutrophil Count 12.8 X10^3/uL (2.0-7.7); Basophil# 0.06 X10^3/uL; Basophil% 0.4 % (0-1); Eosinophil# 0.04 X10^3/uL; Eosinophils% 0.3 % (0-5); Hematocrit 28.8 % (37-47); Hemoglobin 8.5 g/dL (12.0-15.0); Lymphocyte # 0.44 X10^3/ul (0.83-4.51); Lymphocyte % 3.1 % (19-41); Mean Corp Hgb Conc 29.5 g/dL (32-36); Mean Corpuscular Hgb 24.8 pg (27.0-32.0); Mean Platelet Vol. 10.5 fl (6.2-12.0); Monocyte# 0.85 X10^3/uL; Monocyte% 5.9 % (0-10); NRBC Flagged by Analyzer 0 % (0-5); Neutrophil # 12.82 X10^3/uL (2.7-7.7); Neutrophil % 89.1 % (47-70); POSITIVE DIFFERENTIAL YES; POSITIVE MORPHOLOGY YES; Platelet Count 642 K/mm3 (150-450); RBC Distribution Width CV 25.8 % (11.6-14.6); RBC Distribution Width SD 78.1 fl (35.1-43.9); Red Blood Count 3.43 M/mm3 (4.2-5.4); White Blood Count 14.4 K/mm3 (4.4-11.0)
[2022-12-26 07:51] LABS: Differential Indicated SCAN CRITERIA MET
[2022-12-26 08:24] LABS: Anion Gap 6 (5-15); Anisocytosis 2+; BUN 22 mg/dL (7-18); BUN/Creat Ratio 66.3 RATIO (10-20); Calcium,Total 8.1 mg/dL (8.5-10.1); Chloride 93 mmol/L (98-107); Creatinine, Serum 0.33 mg/dL (0.55-1.02); EST Glomerular Filtration Rate 211 mL/min (>60); Est Glom Filt Rate - Afr Amer 255 mL/min (>60); Estimated Creatinine Clearance 119.67 ml/min; Glucose 108 mg/dL (74-106); Hypochromasia 2+; Platelet Estimate MOD INC (ADEQ); Potassium 3.3 mmol/L (3.5-5.1); Sodium Level 133 mmol/L (136-145)
[2022-12-26] MEDS: APIXABAN 5 MG TABLET GT ×2 (09:36→22:49)
[2022-12-26] MEDS: Juven (unflavored) Packet 1 PACKET GT ×2 (09:36→16:09)
--- NOTE | 2022-12-26 11:14 | PN_ITS ---
Subjective Subjective Patient seen and examined. She complained of a few episodes of vomiting. BP is running low this morning. Review of systems is otherwise negative. Objective Data Objective Data Vital Signs: Vital Signs Temp Pulse Resp BP Pulse Ox O2 Del Method O2 Flow Rate 98.2 F 94 30 H 89/56 L 94 Nasal Cannula 5 12/26/22 09:08 12/26/22 09:30 12/26/22 09:30 12/26/22 10:00 12/26/22 10:00 12/26/22 10:00 12/26/22 10:00 FiO2 40 12/26/22 01:55 Oxygen Flow Rate (L/min) 5 Oxygen Delivery Method Nasal Cannula Weight: 98 lb 5.219 oz Body Mass Index (BMI) 20.6 Intake & Output: Intake and Output for Last 24 Hours 12/24/22 12/25/22 12/26/22 23:59 23:59 23:59 Intake Total 2417.50 / 2417.50 2713.75 / 2713.75 910 / 910 Balance 2417.50 / 2417.50 2713.75 / 2713.75 910 / 910 Medical Nutrition Assessment Dietitian: Malnutrition Criteria Met Start: 12/18/22 15:10 Freq: Status: Active Protocol: Document 12/23/22 14:33 AG (Rec: 12/23/22 14:33 AG [id number]) Nutrition Malnutrition Evidence of Malnutrition Exists Yes Malnutrition (severe): Chronic Evidenced By Suboptimal Energy Intake ( Severe),Physical Changes ( Severe) Intake Problem Increased Nutrient Needs (specify) Etiology protein r/t skin status Signs/Symptoms as evidenced by PI to coccyx and spine Status Active Problem Clinical Problem Swallowing Difficulty Etiology related to dysphagia Signs/Symptoms as evidenced by inability to consume PO nutrition Status Active Problem Chronic Disease or Condition Related Malnutrition Etiology chronic, severe malnutrition related to inadequate energy intake Signs/Symptoms as evidenced by estimated PO intake meeting <75% of estimated energy needs > 3 months, severe fat/muscle wasting per physical exam in orbital, temporal, clavicle, and acromion areas, BMI 19.1 Status Active Problem Biting/Chewing Difficulty Status Inactive Problem Recommendation Dietitian Recommendations/Changes 1) Will transition to bolus feeds via PEG- Jevity 1.5 180mL bolus 5x/day w/ 60mL H2O flush before and after each bolus to provide 1350 calories , 57 g protein, and 1284mL fluid/day. Would start w/ 60mL for first bolus, increase by 60mL as tolerated until goal volume is achieved. 2) John BID via PEG. 3) Will monitor ability to resume PO diet and adjust enteral nutrition as indicated . Recommend regular diet- texture/consistency per MUTUAL FUND ACCOUNTANT. 4) Continue daily wts. Lab / Micro Data Result Diagrams: 12/26/22 06:44 12/26/22 06:44 Labs: Laboratory Results - last 24 hr 12/26/22 06:44: WBC 14.4 H, RBC 3.43 L, Hgb 8.5 L, Hct 28.8 L, MCV 84.0, MCH 24.8 L, MCHC 29.5 L, RDW Std Deviation 78.1 H, RDW Coeff of Angie 25.8 H, Plt Count 642 H, MPV 10.5, Immature Gran % (Auto) 1.200 H, Neut % (Auto) 89.1 H, Lymph % (Auto) 3.1 L, [place] % (Auto) 5.9, Eos % (Auto) 0.3, Baso % (Auto) 0.4, Absolute Neuts (auto) 12.8 H, Absolute Lymphs (auto) 0.44 L, Nucleated RBC % 0, Platelet Estimate MOD INC, Hypochromasia 2+, Anisocytosis 2+ 12/26/22 06:44: Sodium 133 L, Potassium 3.3 L, Chloride 93 L, Carbon Dioxide 34.0 H, Anion Gap 6, BUN 22 H, Creatinine 0.33 L, Estim Creat Clear Calc 119.67, Est GFR (MDRD) Af Amer 255, Est GFR (MDRD) Non-Af 211, BUN/Creatinine Ratio 66.3 H, Glucose 108 H, Calcium 8.1 L Micro: Microbiology 12/18/22 09:10 Blood Culture (Wb) #2 - Anticubital Left Blood Culture - Final No growth in 5 days. 12/18/22 09:10 Blood Culture (Wb) - Anticubital Right Blood Culture - Final No growth in 5 days. 12/20/22 08:30 Sputum, Induced/Lukens Gram Stain - Final 12/20/22 08:30 Sputum, Induced/Lukens Respiratory Culture - Final Ivanna albicans 12/20/22 08:30 Stool Stool Occult Blood (SAMANTHA) - Final Occult Blood Positive Rhythm Strip Rhythm Strip: Sinus Rhythm Rate: 93 Ectopy: None Physical Exam Const alert, oriented x3 and no apparent distress Constitutional Narrative: Frail HEENT normocephalic, moist oral mucous membranes and oropharynx normal Eyes PERRL and EOMs intact bilaterally Neck no lymphadenopathy and supple Lymph Lymphatic: no lymphadenopathy noted and no lymphedema noted Resp Resp Narrative: Mildly diminished breath sounds bibasally. No wheezes or crackles.on 5L of oxygen by nasal canula Cardio regular rate, regular rhythm, S1 normal heart sound, S2 normal heart sound and no murmurs GI normal to inspection, nondistended, normoactive bowel sounds, soft to palpation, non-tender and non-distended GI Narrative: PEG tube in situ Extremity normal capillary refill and no calf tenderness Extremity Narrative: bilateral 2+ pitting pedal edema Skin General Skin Exam: no breakdown Neuro CN's II-XII intact bilaterally, no focal motor deficits, no sensory deficits not ed and deep tendon reflexes 2+ bilaterally Motor Exam: strength 5/5 throughout Psych thought process normal Appearance: appropriate Assessment & Plan Assessment/Plan (1) Acute and chronic respiratory failure with hypoxia: (2) Left upper lobe pneumonia: PLAN: Plan #Acute on chronic hypoxic respiratory failure due to aspiration pneumonia versus health assisted pneumonia and left pleural effusion * remains on 3L of oxyen by nasal canula. * completed a 7 day course of IV antibiotics * She was recently admitted for similar complaints. * Breathing treatments of bronchodilators. Titrate oxygen to maintain saturation above 90%. * * #CAD s/p stents: On aspirin and high intensity statin. Also on plavix #Chronic diastolic heart failure:diuretics resumed yesterday due to LE edema. However, she is mildly hypotensive this morning. Will therefore hold diuretics #Acute on chronic anemia: * Hemoglobin was low so she was transfused. * Stool for occult blood was also positive. * He had EGD which showed intact gastrostomy with patent G-tube and a single bleeding angiodysplastic lesion in the stomach which was treated with heater probe * hb today is 8.5 * #Paroxysmal A-fib: On amiodarone. back on eliquis and heparin drip dc'd #Hypothyroidism: On Synthroid #Severe protein calorie malnutrition: * Nutrition on board. On tube feeds. * #History of PE, was diagnosed with PE during the most recent admission. on eliquis via PEG tube #Oropharyngeal dysphagia: PEG tube in place. On tube feeds. #GERD: On PPI DVT prophylaxis: on eliquis Disposition; awaiting placement to [facility]. Precert pending Charges/Coding Visit Charges Inpatient E&M: 69353 Subs Hosp L2
--- NOTE | 2022-12-26 13:21 | RAD_ITS ---
INDICATION: shortness of breath EXAMINATION/TECHNIQUE: X-RAY - portable upright AP chest x-ray COMPARISON: 12/21/2022 FINDINGS: LINES/DEVICES: None. LUNGS: Persistent bilateral pleural effusions and bibasilar airspace disease. Improved aeration of the left upper lung field. MEDIASTINUM AND CARDIOVASCULAR STRUCTURES: Cardiac silhouette stable. BONES AND SOFT TISSUES: No acute changes. RAD/Chest 1 View (Portable) IMPRESSION: Stable bibasilar airspace disease with pleural effusions. Electronically Signed: Stephen German MD at 16:10 EDT ,
[2022-12-26] MEDS: Furosemide 40 MG/4 ML Vial IV (13:41)
--- NOTE | 2022-12-26 14:12 | NURSING ---
Radiology at bedside to do chest x-ray
--- NOTE | 2022-12-26 17:44 | CPS ---
pt just got put back on bu-pap bc of desat and got dose of lasix so refused tx bc she was feeling terrible.
[2022-12-26] MEDS: Ipratropium 0.5 MG/2.5 ML SOLUTION INHALATION (19:27)
[2022-12-27] VITALS (20 sets, daily range): BP systolic 85–94; BP diastolic 55–71; PULSE 87–99; RESP 12–30; TEMP 36.2–36.8; O2SAT 88–100; BMI 20.2
[2022-12-27] MEDS: Acetaminophen 650 MG/20 ML UDC GT ×3 (01:21→14:27)
[2022-12-27 03:58] LABS: Absolute Lymphocyte Count 0.37 X10^3/uL (0.83-4.51); Absolute Neutrophil Count 12.7 X10^3/uL (2.0-7.7); Basophil# 0.07 X10^3/uL; Basophil% 0.5 % (0-1); Eosinophil# 0.04 X10^3/uL; Eosinophils% 0.3 % (0-5); Hematocrit 25.6 % (37-47); Hemoglobin 7.3 g/dL (12.0-15.0); Lymphocyte # 0.37 X10^3/ul (0.83-4.51); Lymphocyte % 2.6 % (19-41); Mean Corp Hgb Conc 28.5 g/dL (32-36); Mean Corpuscular Hgb 24.7 pg (27.0-32.0); Mean Corpuscular Volume 86.5 fL (81-99); Monocyte# 1.08 X10^3/uL; Monocyte% 7.5 % (0-10); NRBC Flagged by Analyzer 0 % (0-5); Neutrophil # 12.71 X10^3/uL (2.7-7.7); Neutrophil % 87.8 % (47-70); POSITIVE DIFFERENTIAL YES; POSITIVE MORPHOLOGY YES; Platelet Count 605 K/mm3 (150-450); RBC Distribution Width CV 25.7 % (11.6-14.6); RBC Distribution Width SD 79.6 fl (35.1-43.9); Red Blood Count 2.96 M/mm3 (4.2-5.4); White Blood Count 14.5 K/mm3 (4.4-11.0)
[2022-12-27 04:03] LABS: Differential Indicated SCAN CRITERIA MET
[2022-12-27 04:12] LABS: Anion Gap 5 (5-15); BUN 32 mg/dL (7-18); BUN/Creat Ratio 101.3 RATIO (10-20); Calcium,Total 8.1 mg/dL (8.5-10.1); Chloride 94 mmol/L (98-107); Creatinine, Serum 0.32 mg/dL (0.55-1.02); EST Glomerular Filtration Rate 223 mL/min (>60); Est Glom Filt Rate - Afr Amer 270 mL/min (>60); Glucose 98 mg/dL (74-106); Potassium 3.4 mmol/L (3.5-5.1); Sodium Level 139 mmol/L (136-145)
[2022-12-27 04:26] LABS: Differential Comment SCANNED; Hypochromasia 2+; Polychromasia 1+
[2022-12-27 04:27] LABS: Anisocytosis 2+
[2022-12-27 04:28] LABS: Macrocytosis 1+; Microcytosis 1+
[2022-12-27 04:41] LABS: Vancomycin, Trough Level 12.9 ug/mL (5.0-15.0)
[2022-12-27] MEDS: 0.9% Saline Lock 10 ML Syringe IV (06:11)
[2022-12-27] MEDS: LORazepam 2 MG/ML Syringe 0.5 MG IV ×2 (06:11→22:23)
[2022-12-27] MEDS: Ipratropium 0.5 MG/2.5 ML SOLUTION INHALATION ×4 (07:33→19:56)
[2022-12-27] MEDS: Juven (unflavored) Packet 1 PACKET GT ×2 (08:14→18:19)
[2022-12-27] MEDS: APIXABAN 5 MG TABLET GT ×2 (08:14→22:24)
[2022-12-27] MEDS: Jevity 1.5. 1,000 ML Bottle 180 ML GT ×3 (08:15→22:24)
[2022-12-27] MEDS: Potassium Chloride Oral Tablet 20 MEQ 40 MEQ GT (08:26)
--- NOTE | 2022-12-27 11:06 | PN_ITS ---
Subjective Subjective Patient seen and examined. She had no complaints. She was on 4 L of oxygen at time of review. Her blood pressure was running low so Lasix held today. She has otherwise remained hemodynamically stable. Objective Data Objective Data Vital Signs: Vital Signs Temp Pulse Resp BP Pulse Ox O2 Del Method O2 Flow Rate 97.2 F L 89 20 H 94/60 96 Nasal Cannula 4 12/27/22 08:00 12/27/22 08:00 12/27/22 08:00 12/27/22 08:00 12/27/22 08:00 12/27/22 08:03 12/27/22 08:03 FiO2 40 12/27/22 01:33 Oxygen Flow Rate (L/min) 4 Oxygen Delivery Method Nasal Cannula Weight: 96 lb 8.999 oz Body Mass Index (BMI) 20.2 Intake & Output: Intake and Output for Last 24 Hours 12/25/22 12/26/22 12/27/22 23:59 23:59 23:59 Intake Total 2713.75 / 2713.75 19390 520 / 520 Balance 2713.75 / 2713.75 1939 520 / 520 Medical Nutrition Assessment Dietitian: Malnutrition Criteria Met Start: 12/18/22 15:10 Freq: Status: Active Protocol: Document 12/23/22 14:33 AG (Rec: 12/23/22 14:33 AG [id number]) Nutrition Malnutrition Evidence of Malnutrition Exists Yes Malnutrition (severe): Chronic Evidenced By Suboptimal Energy Intake ( Severe),Physical Changes ( Severe) Intake Problem Increased Nutrient Needs (specify) Etiology protein r/t skin status Signs/Symptoms as evidenced by PI to coccyx and spine Status Active Problem Clinical Problem Swallowing Difficulty Etiology related to dysphagia Signs/Symptoms as evidenced by inability to consume PO nutrition Status Active Problem Chronic Disease or Condition Related Malnutrition Etiology chronic, severe malnutrition related to inadequate energy intake Signs/Symptoms as evidenced by estimated PO intake meeting <75% of estimated energy needs > 3 months, severe fat/muscle wasting per physical exam in orbital, temporal, clavicle, and acromion areas, BMI 19.1 Status Active Problem Biting/Chewing Difficulty Status Inactive Problem Recommendation Dietitian Recommendations/Changes 1) Will transition to bolus feeds via PEG- Jevity 1.5 180mL bolus 5x/day w/ 60mL H2O flush before and after each bolus to provide 1350 calories , 57 g protein, and 1284mL fluid/day. Would start w/ 60mL for first bolus, increase by 60mL as tolerated until goal volume is achieved. 2) John BID via PEG. 3) Will monitor ability to resume PO diet and adjust enteral nutrition as indicated . Recommend regular diet- texture/consistency per MANAGER RADIATION. 4) Continue daily wts. Lab / Micro Data Result Diagrams: 12/27/22 03:40 12/27/22 03:40 Labs: Laboratory Results - last 24 hr 12/27/22 03:40: WBC 14.5 H, RBC 2.96 L, Hgb 7.3 L, Hct 25.6 L, MCV 86.5, MCH 24.7 L, MCHC 28.5 L, RDW Std Deviation 79.6 H, RDW Coeff of Angie 25.7 H, Plt Count 605 H, MPV 10.0, Immature Gran % (Auto) 1.300 H, Neut % (Auto) 87.8 H, Lymph % (Auto) 2.6 L, [place] % (Auto) 7.5, Eos % (Auto) 0.3, Baso % (Auto) 0.5, Absolute Neuts (auto) 12.7 H, Absolute Lymphs (auto) 0.37 L, Nucleated RBC % 0, Differential Comment SCANNED, Polychromasia 1+, Hypochromasia 2+, Anisocytosis 2+, Microcytosis 1+, Macrocytosis 1+ 12/27/22 03:40: Sodium 139, Potassium 3.4 L, Chloride 94 L, Carbon Dioxide 40.0 H, Anion Gap 5, BUN 32 H, Creatinine 0.32 L, Estim Creat Clear Calc 123.40, Est GFR (MDRD) Af Amer 270, Est GFR (MDRD) Non-Af 223, BUN/Creatinine Ratio 101.3 H, Glucose 98, Calcium 8.1 L 12/27/22 03:40: Vancomycin Trough 12.9 Micro: Microbiology 12/18/22 09:10 Blood Culture (Wb) #2 - Anticubital Left Blood Culture - Final No growth in 5 days. 12/18/22 09:10 Blood Culture (Wb) - Anticubital Right Blood Culture - Final No growth in 5 days. 12/20/22 08:30 Sputum, Induced/Lukens Gram Stain - Final 12/20/22 08:30 Sputum, Induced/Lukens Respiratory Culture - Final Ivanna albicans 12/20/22 08:30 Stool Stool Occult Blood (SAMANTHA) - Final Occult Blood Positive Radiography Diagnostic Testing: Radiology Impression Chest X-Ray 12/26/22 13:21 IMPRESSION: Stable bibasilar airspace disease with pleural effusions. Electronically Signed: Stephen German MD at 16:10 EDT Reading Location ID and State: [facility] / ID Tel , Service support , Rhythm Strip Rhythm Strip: Sinus Rhythm Rate: 93 Ectopy: None Physical Exam Const alert, oriented x3 and no apparent distress Constitutional Narrative: Frail HEENT normocephalic, moist oral mucous membranes and oropharynx normal Eyes PERRL and EOMs intact bilaterally Neck no lymphadenopathy and supple Lymph Lymphatic: no lymphadenopathy noted and no lymphedema noted Resp Resp Narrative: Mildly diminished breath sounds bibasally. No wheezes or crackles.on 4L of oxygen by nasal canula Cardio regular rate, regular rhythm, S1 normal heart sound, S2 normal heart sound and no murmurs GI normal to inspection, nondistended, normoactive bowel sounds, soft to palpation, non-tender and non-distended GI Narrative: PEG tube in situ Extremity normal capillary refill, no clubbing, cyanosis or edema and no calf tenderness Extremity Narrative: bilateral 1+ pitting pedal edema; lower extremity edema is improving Skin General Skin Exam: no breakdown Neuro CN's II-XII intact bilaterally, no focal motor deficits, no sensory deficits noted and deep tendon reflexes 2+ bilaterally Motor Exam: strength 5/5 throughout Psych thought process normal Appearance: appropriate Assessment & Plan Assessment/Plan (1) Acute and chronic respiratory failure with hypoxia: (2) Left upper lobe pneumonia: PLAN: Plan #Acute on chronic hypoxic respiratory failure due to aspiration pneumonia versus health assisted pneumonia and left pleural effusion * on 4L of oxyen by nasal canula. * completed a 7 day course of IV antibiotics * She was recently admitted for similar complaints. * Breathing treatments of bronchodilators. Titrate oxygen to maintain saturation above 90%. * * #CAD s/p stents: On aspirin and high intensity statin. Also on plavix #Chronic diastolic heart failure: * diuretics resumed due to lower extremity edema which is improving. Will hold diuretics due to hypotension. #Acute on chronic anemia: * Hemoglobin was low so she was transfused. * Stool for occult blood was also positive. * He had EGD which showed intact gastrostomy with patent G-tube and a single bleeding angiodysplastic lesion in the stomach which was treated with heater probe * hb today is down to 7.3. Will monitor and transfuse if Hb ,7 * #Paroxysmal A-fib: On amiodarone. back on eliquis and heparin drip dc'd #Hypothyroidism: On Synthroid #Severe protein calorie malnutrition: * Nutrition on board. On tube feeds. * #History of PE, was diagnosed with PE during the most recent admission. on eliquis via PEG tube #Oropharyngeal dysphagia: PEG tube in place. On tube feeds. #GERD: On PPI DVT prophylaxis: on eliquis Disposition; awaiting placement to [facility]. Precert pending Charges/Coding Visit Charges Inpatient E&M: 68336 Subs Hosp L2
[2022-12-27] MEDS: Nystatin Powder 15gm Bottle 1 APPLIC TOPICAL ×2 (14:20→22:22)
--- NOTE | 2022-12-27 15:28 | NURSING ---
This RN taking over care of pt at this time.
[2022-12-28] VITALS (14 sets, daily range): BP systolic 83–123; BP diastolic 52–71; PULSE 89–102; RESP 16–30; TEMP 36.2–36.7; O2SAT 93–100; BMI 20.2
--- NOTE | 2022-12-28 02:55 | CPS ---
RN notified RT that patient no longer was willing to tolerate the BIPAP at this time. RN took patient off BIPAP and placed her back on 3L nasal cannula.
[2022-12-28] MEDS: Jevity 1.5. 1,000 ML Bottle 180 ML GT ×5 (05:17→23:07)
[2022-12-28] MEDS: Nystatin Powder 15gm Bottle 1 APPLIC TOPICAL ×3 (05:17→22:57)
[2022-12-28] MEDS: LORazepam 2 MG/ML Syringe 0.5 MG IV (05:17)
[2022-12-28 06:24] LABS: Absolute Lymphocyte Count 0.37 X10^3/uL (0.83-4.51); Absolute Neutrophil Count 14.4 X10^3/uL (2.0-7.7); Basophil# 0.09 X10^3/uL; Basophil% 0.6 % (0-1); Eosinophil# 0.04 X10^3/uL; Eosinophils% 0.3 % (0-5); Hematocrit 27.5 % (37-47); Hemoglobin 7.8 g/dL (12.0-15.0); Lymphocyte # 0.37 X10^3/ul (0.83-4.51); Lymphocyte % 2.3 % (19-41); Mean Corp Hgb Conc 28.4 g/dL (32-36); Mean Corpuscular Hgb 24.7 pg (27.0-32.0); Mean Platelet Vol. 10.3 fl (6.2-12.0); Monocyte# 0.89 X10^3/uL; Monocyte% 5.6 % (0-10); NRBC Flagged by Analyzer 0 % (0-5); Neutrophil # 14.43 X10^3/uL (2.7-7.7); Neutrophil % 90.4 % (47-70); POSITIVE DIFFERENTIAL YES; POSITIVE MORPHOLOGY YES; Platelet Count 700 K/mm3 (150-450); RBC Distribution Width CV 25.8 % (11.6-14.6); RBC Distribution Width SD 80.2 fl (35.1-43.9); Red Blood Count 3.16 M/mm3 (4.2-5.4); White Blood Count 15.9 K/mm3 (4.4-11.0)
[2022-12-28 07:04] LABS: Anion Gap 3 (5-15); BUN 33 mg/dL (7-18); BUN/Creat Ratio 120.9 RATIO (10-20); Calcium,Total 8.4 mg/dL (8.5-10.1); Chloride 96 mmol/L (98-107); Creatinine, Serum 0.27 mg/dL (0.55-1.02); EST Glomerular Filtration Rate 264 mL/min (>60); Est Glom Filt Rate - Afr Amer 319 mL/min (>60); Estimated Creatinine Clearance 143.96 ml/min; Glucose 140 mg/dL (74-106); Potassium 3.7 mmol/L (3.5-5.1); Sodium Level 139 mmol/L (136-145)
[2022-12-28 07:05] LABS: Differential Indicated SCAN CRITERIA MET
[2022-12-28 07:19] LABS: Anisocytosis 1+; Differential Comment SCANNED
[2022-12-28] MEDS: Ipratropium 0.5 MG/2.5 ML SOLUTION INHALATION ×3 (07:43→15:29)
[2022-12-28] MEDS: APIXABAN 5 MG TABLET GT ×2 (08:05→22:56)
[2022-12-28] MEDS: Juven (unflavored) Packet 1 PACKET GT ×2 (08:05→16:11)
[2022-12-28] MEDS: Furosemide 40 MG/4 ML Vial IV (08:05)
[2022-12-28] MEDS: 0.9% Saline Lock 10 ML Syringe IV ×2 (08:16→23:11)
--- NOTE | 2022-12-28 09:38 | CASEMGMT ---
Discharge Planning Updates sent to Parminder Sanchez. Emelyn Ulloa
--- NOTE | 2022-12-28 10:34 | CASEMGMT ---
ROSMERY called [facility] and spoke with Lily about patient. ROSMERY asked if they are able to get a concentrator that goes up to 10L. Lily said one was delivered however, no one actually ordered it. Staff is looking over her stuff now. Await return call. Gisella Pires MSW FARRAH
--- NOTE | 2022-12-28 10:40 | PN.HOSP_ITS ---
Reason for Visit Reason for Visit: Diagnoses Sepsis due to Streptococcus pneumoniae (12/18/22) Anemia, unspecified (12/18/22) Pneumonia, unspecified organism (12/18/22) Bronchiectasis, uncomplicated (12/18/22) Pleural effusion, not elsewhere classified (12/18/22) Acute respiratory failure with hypoxia (12/18/22) Acute and chronic respiratory failure with hypoxia (12/18/22) Cachexia (12/18/22) Severe sepsis with septic shock (12/18/22) Presence of coronary angioplasty implant and graft (12/18/22) Subjective Subjective Reports feeling roughly the same but has been somewhat intermittently dropping her O2 sat on 3 L of O2 this was turned up on the room. Does have a cough which feels congested and like she has been unable to cough it up, does sound to have phlegm Objective Data Objective Data Vital Signs: Vital Signs Temp Pulse Resp BP Pulse Ox O2 Del Method O2 Flow Rate 98.1 F 102 H 22 H 85/56 L 96 Nasal Cannula 5 12/28/22 10:08 12/28/22 10:08 12/28/22 10:08 12/28/22 10:08 12/28/22 10:08 12/28/22 10:08 12/28/22 10:08 FiO2 40 12/27/22 22:47 Oxygen Flow Rate (L/min) 5 Oxygen Delivery Method Nasal Cannula Weight: 43.9 kg Body Mass Index (BMI) 20.2 Intake & Output: Intake and Output for Last 24 Hours 12/26/22 12/27/22 12/28/22 23:59 23:59 23:59 Intake Total 1939 520 / 780 1020 / 1020 Balance 1939 520 / 780 1020 / 1020 Medical Nutrition Assessment Dietitian: Malnutrition Criteria Met Start: 12/18/22 15:10 Freq: Status: Active Protocol: Document 12/28/22 07:54 AG (Rec: 12/28/22 07:54 AG [id number]) Nutrition Malnutrition Evidence of Malnutrition Exists Yes Malnutrition (severe): Chronic Evidenced By Suboptimal Energy Intake ( Severe),Physical Changes ( Severe) Intake Problem Increased Nutrient Needs (specify) Etiology protein r/t skin status Signs/Symptoms as evidenced by PI to coccyx and spine Status Active Problem Clinical Problem Swallowing Difficulty Etiology related to dysphagia Signs/Symptoms as evidenced by inability to consume PO nutrition Status Active Problem Chronic Disease or Condition Related Malnutrition Etiology chronic, severe malnutrition related to inadequate energy intake Signs/Symptoms as evidenced by estimated PO intake meeting <75% of estimated energy needs > 3 months, severe fat/muscle wasting per physical exam in orbital, temporal, clavicle, and acromion areas, BMI 19.1 Status Active Problem Biting/Chewing Difficulty Status Inactive Problem Recommendation Dietitian Recommendations/Changes 1) Continue bolus feeds via PEG- Jevity 1.5 180mL bolus 5x /day w/ 60mL H2O flush before and after each bolus to provide 1350 calories, 57 g protein, and 1284mL fluid/day. 2) John BID via PEG. 3) Will monitor ability to resume PO diet and adjust enteral nutrition as indicated . Recommend regular diet- texture/consistency per RN NEUROSURGICAL as appropriate. 4) Continue daily wts. Lab / Micro Data Result Diagrams: 12/28/22 05:55 12/28/22 05:55 Labs: Laboratory Results - last 24 hr 12/28/22 05:55: WBC 15.9 H, RBC 3.16 L, Hgb 7.8 L, Hct 27.5 L, MCV 87.0, MCH 24.7 L, MCHC 28.4 L, RDW Std Deviation 80.2 H, RDW Coeff of Angie 25.8 H, Plt Count 700 H, MPV 10.3, Immature Gran % (Auto) 0.800, Neut % (Auto) 90.4 H, Lymph % (Auto) 2.3 L, [place] % (Auto) 5.6, Eos % (Auto) 0.3, Baso % (Auto) 0.6, Absolute Neuts (auto) 14.4 H, Absolute Lymphs (auto) 0.37 L, Nucleated RBC % 0, Differential Comment SCANNED, Anisocytosis 1+ 12/28/22 05:55: Sodium 139, Potassium 3.7, Chloride 96 L, Carbon Dioxide 40.0 H, Anion Gap 3 L, BUN 33 H, Creatinine 0.27 L, Estim Creat Clear Calc 143.96, Est GFR (MDRD) Af Amer 319, Est GFR (MDRD) Non-Af 264, BUN/Creatinine Ratio 120.9 H, Glucose 140 H, Calcium 8.4 L Micro: Microbiology 12/18/22 09:10 Blood Culture (Wb) #2 - Anticubital Left Blood Culture - Final No growth in 5 days. 12/18/22 09:10 Blood Culture (Wb) - Anticubital Right Blood Culture - Final No growth in 5 days. 12/20/22 08:30 Sputum, Induced/Lukens Gram Stain - Final 12/20/22 08:30 Sputum, Induced/Lukens Respiratory Culture - Final Ivanna albicans 12/20/22 08:30 Stool Stool Occult Blood (SAMANTHA) - Final Occult Blood Positive Rhythm Strip Rhythm Strip: Sinus Rhythm Rate: 93 Ectopy: None Physical Exam Narrative General: Alert, oriented, no apparent distress HEENT: Atraumatic, normocephalic Eyes: Anicteric, normal conjunctiva, extraocular movements grossly intact Neck: Supple Respiratory: Does not appear to be having increased respiratory effort but slightly tachypneic, poor air movement at the bases, transmitted upper airway sounds Cardiovascular: Regular rate and rhythm GI: Soft, nontender, nondistended Extremities: 1+ bilateral lower extremity edema Musculoskeletal: Moving all extremities Neuro: No overt focal neurological deficits Skin: No rashes appreciated Psych: Cooperative Assessment & Plan Assessment/Plan (1) Acute and chronic respiratory failure with hypoxia: (2) Left upper lobe pneumonia: PLAN: Plan 67 F presented 12/18 from [facility] with inc SOB. She was started on levaquin 3 D prior to admission. Was on 5L NC day of admission w/ O2 sat 70%. Required bipap and was admitted for acute on chronic respiratory failure. #Acute on chronic hypoxic resp failure 2/2 aspiration PNA with possible flash pulmonary edema complicated by underlying bronchiectasis, mod pulm HTN, recent PEs, hx chronic hfpef, and recurrent pleural effusions -Chest x-ray on admission with bilateral pleural effusions with bibasilar atelectasis more prominent on left side and possible early infiltrate left upper lobe -3-4 L O2 by NC now -Completed 7 day course of IV abx -Cx negative -Continue breathing treatments -This AM had variable O2 sats with good pleth and suspected this was in part to mucous plugging, chest x-ray similar to previous though official read pending -Encouraged flutter valve, I/S, and ordered mucinex and vest therapy and she needs to have improved -Most recent echo after PEs noted showed severely dilated RV w/ mod RV dysfxn and PASP of 55-60mm hg #Bilateral pleural effusions left greater than right -Had previous VATS and pleurodesis on the right and in 2019 had Pleurx catheter on the left -Last admission had R thoracentesis 11/26/22 w/ removal of 525cc stephen colored fluid -pulmonology was following and ultimately decided against further intervention with effusion at this time. #Acute on chronic anemia/thrombocytosis -Required transfusion earlier in course -FOBT + -EGD 12/21 w/ intact gastrostomy w/ gtube and single bleeding angiodysplastic lesion in stomach treated w/ heater probe -Transfuse if <7 -Given the bleeding and thrombocytosis will obtain iron studies as this may be contributing to both, hemoglobin overall has been stable however -Eventually will need colonoscopy and capsule endoscopy on outpt basis #CAhxD s/p stents -asa, plavix, statin #Chronic diastolic heart failure -BNP 200 on arrival, higher than previous -On diuretics d/t LE edema but has been hypotensive and seems to have contractio n alkalosis -Will deescalate diuretics at this time -Daily weights #Paroxysmal A-fib -Amio, eliquis #Hypothyroidism: On Synthroid #Severe protein calorie malnutrition: * Nutrition on board #History of PE, was diagnosed with PE during the most recent admission. on eliquis #Oropharyngeal dysphagia: PEG tube placed 11/30/2022 after she required intubation during hospitalization from 11/21/2022 to 11/27/2022 and had persistent dysphagia. Continues to maintain nutrition via PEG tube but speech continuing to follow and recommendations noted #GERD: On PPI DVT prophylaxis: on eliquis Disposition; awaiting placement to [facility]. Charges/Coding Visit Charges Inpatient E&M: 46986 Subs Hosp L2
--- NOTE | 2022-12-28 11:15 | CASEMGMT ---
ROSMERY received notification from d/c pastry assistant Emelyn that [facility] is asking if they can send patient's referral to their sister facility, [facility] in [place]. SW spoke with patient and her son and let them know this information. They were not interested in patient going to [place]. SW asked for some other options. Their next choices would be [facility]. [facility], and [facility] in no particular order. SW notified d/c pastry assistant Lori to please make referrals to these facilities. Gisella Pires RULING MACHINE SET UP OPERATOR [facility]
--- NOTE | 2022-12-28 11:54 | CASEMGMT ---
Discharge Planning New referral sent to [facility] via [facility]. Emelyn Ulloa
--- NOTE | 2022-12-28 11:59 | CASEMGMT ---
Discharge Planning New referrals sent to [facility] and [facility] via [facility]. Emelyn Ulloa
--- NOTE | 2022-12-28 12:00 | CASEMGMT ---
Discharge Planning Marjan saravia/[facility] called asking to send referral to their sister facility, [facility]. This information was given to SW. Per SW, patient and family do not wish to have referral shared with [facility]. [facility] updated.
[2022-12-28] MEDS: guaiFENesin 1,200 MG Tablet 1200 MG PO (13:07)
--- NOTE | 2022-12-28 13:20 | CASEMGMT ---
[facility] ROSMERY asked if they will have the 10L concentrator onsite. Lily said they will have it on site for patient. ROSMERY spoke with patient and her son and let them know this information. Patient said she will return to [facility] as long as they have the 10L concentrator. ROSMERY notified d/c policy and planning manager and asked that she notify facilities. Plan: d/c back to [facility] pending insurance approval. Pre-cert was started last week. Gisella Pires SERVICE STATION OPERATOR FARRAH
--- NOTE | 2022-12-28 13:40 | RAD_ITS ---
STUDY: X-RAY CHEST REASON FOR EXAM: Female, 67 years old. ordered for any changes TECHNIQUE: Single AP portable view of the chest. COMPARISON: 12/26/2022 FINDINGS: Stable appearance of density in the mid and lower lung veliz bilaterally with atelectasis or infiltrate and small to moderate pleural effusions. There is mild cardiac enlargement. Normal mediastinum and agapito. Normal visualized pulmonary arteries. Normal visualized aortic arch and descending thoracic aorta. Normal visualized thoracic spine. Normal visualized ribs, clavicles, and shoulders. There is no demonstrated abnormality of the visualized soft tissue structures of the upper abdomen. RAD/Chest 1 View (Portable) IMPRESSION: No change since 2 days prior. Electronically Signed: Karsten Mcgowan MD at 18:14 EDT ,
--- NOTE | 2022-12-28 14:03 | WOUNDNOTE ---
wound photo: sacrum
--- NOTE | 2022-12-28 14:04 | WOUNDNOTE ---
wound photo: mid back
--- NOTE | 2022-12-28 16:01 | CASEMGMT ---
Discharge Planning Parminder Sanchez notified of tentative discharge date. Emelyn Ulloa
[2022-12-28] MEDS: Acetaminophen 650 MG/20 ML UDC GT ×2 (16:11→23:06)
[2022-12-28] MEDS: Ipratropium/Albuterol Sulfate 3 ML AMPUL.NEB INHALATION (20:16)
[2022-12-28] MEDS: Budesonide Respules 0.5 MG/2 ML AMPUL.NEB. INHALATION (20:16)
[2022-12-28] MEDS: Montelukast 10 MG Tablet PO (22:56)
[2022-12-28] MEDS: Atorvastatin Calcium 40 MG Tablet PO (22:56)
[2022-12-28] MEDS: LORazepam 0.5 MG Tablet 0.25 MG PO (23:06)
[2022-12-28] MEDS: guaiFENesin 10 ML UDC (200MG/10ML) GT (23:07)
[2022-12-29] VITALS (17 sets, daily range): BP systolic 88–109; BP diastolic 59–82; PULSE 85–100; RESP 20–30; TEMP 36.2–36.9; O2SAT 93–100; BMI 20.9
[2022-12-29] MEDS: Ipratropium/Albuterol Sulfate 3 ML AMPUL.NEB INHALATION ×4 (02:43→20:37)
[2022-12-29] MEDS: guaiFENesin 10 ML UDC (200MG/10ML) GT ×4 (05:06→23:27)
[2022-12-29] MEDS: Jevity 1.5. 1,000 ML Bottle 180 ML GT ×5 (05:06→22:29)
[2022-12-29] MEDS: Levothyroxine 88 MCG Tablet PO (05:06)
[2022-12-29] MEDS: Nystatin Powder 15gm Bottle 1 APPLIC TOPICAL ×3 (05:07→22:29)
[2022-12-29 06:32] LABS: Absolute Lymphocyte Count 0.29 X10^3/uL (0.83-4.51); Absolute Neutrophil Count 11.4 X10^3/uL (2.0-7.7); Basophil# 0.07 X10^3/uL; Basophil% 0.6 % (0-1); Eosinophil# 0.06 X10^3/uL; Eosinophils% 0.5 % (0-5); Hematocrit 27.2 % (37-47); Hemoglobin 7.7 g/dL (12.0-15.0); Lymphocyte # 0.29 X10^3/ul (0.83-4.51); Lymphocyte % 2.3 % (19-41); Mean Corp Hgb Conc 28.3 g/dL (32-36); Mean Corpuscular Hgb 24.8 pg (27.0-32.0); Mean Corpuscular Volume 87.5 fL (81-99); Mean Platelet Vol. 9.9 fl (6.2-12.0); Monocyte# 0.83 X10^3/uL; Monocyte% 6.5 % (0-10); NRBC Flagged by Analyzer 0 % (0-5); Neutrophil # 11.37 X10^3/uL (2.7-7.7); Neutrophil % 89.5 % (47-70); POSITIVE DIFFERENTIAL YES; POSITIVE MORPHOLOGY YES; Platelet Count 672 K/mm3 (150-450); RBC Distribution Width CV 25.2 % (11.6-14.6); RBC Distribution Width SD 78.7 fl (35.1-43.9); Red Blood Count 3.11 M/mm3 (4.2-5.4); White Blood Count 12.7 K/mm3 (4.4-11.0)
[2022-12-29 06:37] LABS: Differential Indicated SCAN CRITERIA MET
[2022-12-29] MEDS: LORazepam 0.5 MG Tablet 0.25 MG PO ×3 (06:44→23:26)
[2022-12-29 06:59] LABS: Anisocytosis 1+; Differential Comment SCANNED; Hypochromasia 2+; Microcytosis 1+; Stomatocyte RARE
[2022-12-29 07:03] LABS: ALB/GLOB Ratio 0.4 RATIO (0.9-2.4); AST(SGOT) 19 U/L (15-37); Alanine Aminotransfer ALT/SGPT 28 U/L (13-56); Albumin, Serum 1.7 g/dL (3.2-5.0); Alkaline Phosphatase 91 U/L (45-117); Anion Gap 4 (5-15); BUN 34 mg/dL (7-18); BUN/Creat Ratio 90.7 RATIO (10-20); Calcium,Total 8.3 mg/dL (8.5-10.1); Chloride 94 mmol/L (98-107); Creatinine, Serum 0.38 mg/dL (0.55-1.02); EST Glomerular Filtration Rate 183 mL/min (>60); Est Glom Filt Rate - Afr Amer 221 mL/min (>60); Estimated Creatinine Clearance 105.32 ml/min; Ferritin 31 ng/mL (8-252); Globulin 4.1 g/dL (2.2-4.2); Glucose 158 mg/dL (74-106); Iron 17 ug/dL (50-170); Iron Binding Capacity,Total 216 ug/dL (250-450); Potassium 3.4 mmol/L (3.5-5.1); Protein, Total 5.8 g/dL (6.4-8.2); Sodium Level 138 mmol/L (136-145)
[2022-12-29] MEDS: Budesonide Respules 0.5 MG/2 ML AMPUL.NEB. INHALATION ×2 (07:27→20:37)
[2022-12-29] MEDS: Amiodarone 200 MG Tablet PO (10:01)
[2022-12-29] MEDS: Potassium Chloride Oral Soln 20 MEQ/15 ML UDC 40 MEQ PO (10:01)
[2022-12-29] MEDS: Iron Polysaccharide Complex 150 MG CAPSULE PO (10:01)
[2022-12-29] MEDS: Juven (unflavored) Packet 1 PACKET GT ×2 (10:02→16:28)
[2022-12-29] MEDS: APIXABAN 5 MG TABLET GT ×2 (10:02→22:29)
[2022-12-29] MEDS: Aspirin E.C. 81 MG Tablet PO (10:02)
[2022-12-29] MEDS: Acetaminophen 650 MG/20 ML UDC GT ×2 (13:51→20:45)
--- NOTE | 2022-12-29 14:47 | CASEMGMT ---
Discharge Planning Updates sent to Parmin[facility] Sanchez via [facility]. Emelyn Ulloa
--- NOTE | 2022-12-29 14:51 | PCM.PN.HOSP ---
Reason for Visit Reason for Visit: Diagnoses Sepsis due to Streptococcus pneumoniae (12/18/22) Anemia, unspecified (12/18/22) Pneumonia, unspecified organism (12/18/22) Bronchiectasis, uncomplicated (12/18/22) Pleural effusion, not elsewhere classified (12/18/22) Acute respiratory failure with hypoxia (12/18/22) Acute and chronic respiratory failure with hypoxia (12/18/22) Cachexia (12/18/22) Severe sepsis with septic shock (12/18/22) Presence of coronary angioplasty implant and graft (12/18/22) Subjective Subjective Reports she is feeling better, finds the Robitussin helpful Objective Data Objective Data Vital Signs: Vital Signs Temp Pulse Resp BP Pulse Ox O2 Del Method O2 Flow Rate 97.3 F L 85 20 H 104/82 H 97 Nasal Cannula 8 12/29/22 09:59 12/29/22 13:11 12/29/22 13:11 12/29/22 09:59 12/29/22 10:06 12/29/22 10:02 12/29/22 10:06 FiO2 50 12/29/22 07:27 Oxygen Flow Rate (L/min) 8 Oxygen Delivery Method Nasal Cannula Weight: 45.2 kg Body Mass Index (BMI) 20.9 Intake & Output: Intake and Output for Last 24 Hours 12/27/22 12/28/22 12/29/22 23:59 23:59 23:59 Intake Total 520 / 780 2060 / 2145 1245 / 1245 Balance 520 / 780 2060 / 2145 1245 / 1245 Medical Nutrition Assessment Dietitian: Malnutrition Criteria Met Start: 12/18/22 15:10 Freq: Status: Active Protocol: Document 12/28/22 07:54 AG (Rec: 12/28/22 07:54 [id number]) Nutrition Malnutrition Evidence of Malnutrition Exists Yes Malnutrition (severe): Chronic Evidenced By Suboptimal Energy Intake ( Severe),Physical Changes ( Severe) Intake Problem Increased Nutrient Needs (specify) Etiology protein r/t skin status Signs/Symptoms as evidenced by PI to coccyx and spine Status Active Problem Clinical Problem Swallowing Difficulty Etiology related to dysphagia Signs/Symptoms as evidenced by inability to consume PO nutrition Status Active Problem Chronic Disease or Condition Related Malnutrition Etiology chronic, severe malnutrition related to inadequate energy intake Signs/Symptoms as evidenced by estimated PO intake meeting <75% of estimated energy needs > 3 months, severe fat/muscle wasting per physical exam in orbital, temporal, clavicle, and acromion areas, BMI 19.1 Status Active Problem Biting/Chewing Difficulty Status Inactive Problem Recommendation Dietitian Recommendations/Changes 1) Continue bolus feeds via PEG- Jevity 1.5 180mL bolus 5x /day w/ 60mL H2O flush before and after each bolus to provide 1350 calories, 57 g protein, and 1284mL fluid/day. 2) John BID via PEG. 3) Will monitor ability to resume PO diet and adjust enteral nutrition as indicated . Recommend regular diet- texture/consistency per INSPECTOR AND TESTER as appropriate. 4) Continue daily wts. Lab / Micro Data Result Diagrams: 12/29/22 06:15 12/29/22 06:15 Labs: Laboratory Results - last 24 hr 12/29/22 06:15: WBC 12.7 H, RBC 3.11 L, Hgb 7.7 L, Hct 27.2 L, MCV 87.5, MCH 24.8 L, MCHC 28.3 L, RDW Std Deviation 78.7 H, RDW Coeff of Angie 25.2 H, Plt Count 672 H, MPV 9.9, Immature Gran % (Auto) 0.600, Neut % (Auto) 89.5 H, Lymph % (Auto) 2.3 L, [place] % (Auto) 6.5, Eos % (Auto) 0.5, Baso % (Auto) 0.6, Absolute Neuts (auto) 11.4 H, Absolute Lymphs (auto) 0.29 L, Nucleated RBC % 0, Differential Comment SCANNED, Hypochromasia 2+, Anisocytosis 1+, Microcytosis 1+, Stomatocytes RARE 12/29/22 06:15: Sodium 138, Potassium 3.4 L, Chloride 94 L, Carbon Dioxide 40.0 H, Anion Gap 4 L, BUN 34 H, Creatinine 0.38 L, Estim Creat Clear Calc 105.32, Est GFR (MDRD) Af Amer 221, Est GFR (MDRD) Non-Af 183, BUN/Creatinine Ratio 90.7 H, Glucose 158 H, Calcium 8.3 L, Iron 17 L, TIBC 216 L, Ferritin 31, Total Bilirubin 0.20, AST 19, ALT 28, Alkaline Phosphatase 91, Total Protein 5.8 L, Albumin 1.7 L, Globulin 4.1, Albumin/Globulin Ratio 0.4 L Micro: Microbiology 12/18/22 09:10 Blood Culture (Wb) #2 - Anticubital Left Blood Culture - Final No growth in 5 days. 12/18/22 09:10 Blood Culture (Wb) - Anticubital Right Blood Culture - Final No growth in 5 days. 12/20/22 08:30 Sputum, Induced/Lukens Gram Stain - Final 12/20/22 08:30 Sputum, Induced/Lukens Respiratory Culture - Final Ivanna albicans 12/20/22 08:30 Stool Stool Occult Blood (SAMANTHA) - Final Occult Blood Positive Radiography Diagnostic Testing: Radiology Impression Chest X-Ray 12/28/22 13:40 IMPRESSION: No change since 2 days prior. Electronically Signed: Karsten Mcgowan MD at 18:14 EDT , Rhythm Strip Rhythm Strip: Sinus Rhythm Rate: 93 Ectopy: None Physical Exam Narrative General: Alert, oriented, no apparent distress HEENT: Atraumatic, normocephalic Eyes: Anicteric, normal conjunctiva, extraocular movements grossly intact Neck: Supple Respiratory: Still suboptimal air movement but no wheezes or rhonchi, no increased work of breathing Cardiovascular: Regular rate and rhythm GI: Soft, nontender, nondistended Extremities: 1+ bilateral lower extremity edema but slight wrinkles today Musculoskeletal: Moving all extremities Neuro: No overt focal neurological deficits Skin: No rashes appreciated Psych: Cooperative Assessment & Plan Assessment/Plan (1) Acute and chronic respiratory failure with hypoxia: (2) Left upper lobe pneumonia: PLAN: Plan 67 F presented [facility]18 [facility]B. She was started on levaquin 3 D prior to admission. Was on 5L NC day of admission w/ O2 sat 70%. Required bipap and was admitted for acute on chronic respiratory failure. #Acute on chronic hypoxic resp failure 2/2 aspiration PNA with possible flash pulmonary edema complicated by underlying bronchiectasis, mod pulm HTN, recent PEs, hx chronic hfpef, and recurrent pleural effusions -Chest x-ray on admission with bilateral pleural effusions with bibasilar atelectasis more prominent on left side and possible early infiltrate left upper lobe -3-4 L O2 by NC now -Completed 7 day course of IV abx -Cx negative -Continue breathing treatments -This AM had variable O2 sats with good pleth and suspected this was in part to mucous plugging, chest x-ray similar to previous though official read pending -Encouraged flutter valve, I/S, and ordered mucinex and vest therapy and she needs to have improved -Most recent echo after PEs noted showed severely dilated RV w/ mod RV dysfxn and PASP of 55-60mm hg -12/29: Appears to be slightly intravascularly dry so Lasix held today and will resume at 40 mg daily tomorrow, suspect edema in extremities is multifactorial and in part is due to low albumin/nutrition. Legs to be wrapped today. #Bilateral pleural effusions left greater than right -Had previous VATS and pleurodesis on the right and in 2019 had Pleurx catheter on the left -Last admission had R thoracentesis 11/26/22 w/ removal of 525cc stephen colored fluid -pulmonology was following and ultimately decided against further intervention with effusion at this time. #Acute on chronic anemia/thrombocytosis -Required transfusion earlier in course -FOBT + -EGD 12/21 w/ intact gastrostomy w/ gtube and single bleeding angiodysplastic lesion in stomach treated w/ heater probe -Transfuse if <7 -Given the bleeding and thrombocytosis will obtain iron studies as this may be contributing to both, hemoglobin overall has been stable however -Eventually will need colonoscopy and capsule endoscopy on outpt basis -12/29: Was noted to have low iron, added iron supplementation #hx CAD s/p stents -[id number] RCA w/ 3.0 x 20 mm Synergy Stent and Prox-Mid RCA w/ 3.5 x 24 mm Synergy Stent 06/18/2020 -Had been on asa, plavix, and eliquis, doubt triple therapy is indicated, will further assess and adjust medications #Chronic diastolic heart failure -BNP 200 on arrival, higher than previous -On diuretics d/t LE edema but has been hypotensive and seems to have contraction alkalosis -Will deescalate diuretics at this time -Daily weights #Paroxysmal A-fib -Amio, eliquis #Hypothyroidism: On Synthroid #Severe protein calorie malnutrition: Nutrition on board #History of PE, was diagnosed with PE during the most recent admission. on eliquis #Oropharyngeal dysphagia: PEG tube placed 11/30/2022 after she required intubation during hospitalization from 11/21/2022 to 11/27/2022 and had persistent dysphagia. Continues to maintain nutrition via PEG tube but speech continuing to follow and recommendations noted #GERD: On PPI DVT prophylaxis: on eliquis Disposition; awaiting placement to [facility]. Charges/Coding Visit Charges Inpatient E&M: 29342 Subs Hosp L2
[2022-12-29] MEDS: Albuterol 2.5 MG/3 ML VIAL.NEB. INHALATION (17:03)
[2022-12-29] MEDS: Montelukast 10 MG Tablet PO (20:43)
[2022-12-29] MEDS: Atorvastatin Calcium 40 MG Tablet PO (20:44)
[2022-12-29] MEDS: 0.9% Saline Lock 10 ML Syringe IV (21:07)
[2022-12-30] VITALS (8 sets, daily range): BP systolic 97–141; BP diastolic 57–84; PULSE 85–103; RESP 12–28; TEMP 36.2–36.7; O2SAT 84–100; BMI 20.7
[2022-12-30] MEDS: Levothyroxine 88 MCG Tablet PO (05:05)
[2022-12-30] MEDS: Nystatin Powder 15gm Bottle 1 APPLIC TOPICAL ×2 (05:05→14:28)
[2022-12-30] MEDS: guaiFENesin 10 ML UDC (200MG/10ML) GT ×2 (05:05→09:39)
[2022-12-30] MEDS: Jevity 1.5. 1,000 ML Bottle 180 ML GT ×3 (05:05→14:28)
[2022-12-30 05:25] LABS: Absolute Lymphocyte Count 0.37 X10^3/uL (0.83-4.51); Absolute Neutrophil Count 10.6 X10^3/uL (2.0-7.7); Basophil# 0.06 X10^3/uL; Basophil% 0.5 % (0-1); Eosinophil# 0.05 X10^3/uL; Eosinophils% 0.4 % (0-5); Hematocrit 26.3 % (37-47); Hemoglobin 7.5 g/dL (12.0-15.0); Lymphocyte # 0.37 X10^3/ul (0.83-4.51); Mean Corp Hgb Conc 28.5 g/dL (32-36); Mean Corpuscular Volume 87.7 fL (81-99); Mean Platelet Vol. 9.9 fl (6.2-12.0); Monocyte# 1.02 X10^3/uL; Monocyte% 8.4 % (0-10); NRBC Flagged by Analyzer 0 % (0-5); Neutrophil # 10.58 X10^3/uL (2.7-7.7); Neutrophil % 87.1 % (47-70); POSITIVE DIFFERENTIAL YES; POSITIVE MORPHOLOGY YES; Platelet Count 687 K/mm3 (150-450); RBC Distribution Width CV 25.2 % (11.6-14.6); RBC Distribution Width SD 78.6 fl (35.1-43.9); White Blood Count 12.2 K/mm3 (4.4-11.0)
[2022-12-30 05:28] LABS: Differential Indicated SCAN CRITERIA MET
[2022-12-30 05:41] LABS: Anisocytosis 1+; Differential Comment SCANNED; Hypochromasia 2+; Microcytosis 1+; Stomatocyte RARE
[2022-12-30 05:56] LABS: ALB/GLOB Ratio 0.4 RATIO (0.9-2.4); AST(SGOT) 18 U/L (15-37); Alanine Aminotransfer ALT/SGPT 28 U/L (13-56); Albumin, Serum 1.7 g/dL (3.2-5.0); Alkaline Phosphatase 88 U/L (45-117); Anion Gap -2 (5-15); BUN 33 mg/dL (7-18); BUN/Creat Ratio 117.9 RATIO (10-20); Calcium,Total 8.1 mg/dL (8.5-10.1); Chloride 96 mmol/L (98-107); Creatinine, Serum 0.28 mg/dL (0.55-1.02); EST Glomerular Filtration Rate 256 mL/min (>60); Est Glom Filt Rate - Afr Amer 310 mL/min (>60); Estimated Creatinine Clearance 141.98 ml/min; Glucose 102 mg/dL (74-106); Potassium 4.2 mmol/L (3.5-5.1); Protein, Total 5.7 g/dL (6.4-8.2); Sodium Level 136 mmol/L (136-145)
[2022-12-30] MEDS: Ipratropium/Albuterol Sulfate 3 ML AMPUL.NEB INHALATION ×2 (07:39→12:25)
[2022-12-30] MEDS: Budesonide Respules 0.5 MG/2 ML AMPUL.NEB. INHALATION (07:39)
--- NOTE | 2022-12-30 08:19 | PN.HOSP_ITS ---
Reason for Visit Reason for Visit: Diagnoses Sepsis due to Streptococcus pneumoniae (12/18/22) Anemia, unspecified (12/18/22) Pneumonia, unspecified organism (12/18/22) Bronchiectasis, uncomplicated (12/18/22) Pleural effusion, not elsewhere classified (12/18/22) Acute respiratory failure with hypoxia (12/18/22) Acute and chronic respiratory failure with hypoxia (12/18/22) Cachexia (12/18/22) Severe sepsis with septic shock (12/18/22) Presence of coronary angioplasty implant and graft (12/18/22) Subjective Subjective Resting on BiPAP this morning, mainly has questions about will she ever be able to have G-tube out and wants to increase her Ativan Objective Data Objective Data Vital Signs: Vital Signs Temp Pulse Resp BP Pulse Ox O2 Del Method O2 Flow Rate 97.1 F L 92 28 H 141/84 H 99 Bi-pap 8 12/30/22 02:00 12/30/22 02:00 12/30/22 02:00 12/30/22 02:00 12/30/22 05:44 12/30/22 03:31 12/29/22 22:00 FiO2 45 12/30/22 05:44 Oxygen Flow Rate (L/min) 8 Oxygen Delivery Method Bi-pap Weight: 44.9 kg Body Mass Index (BMI) 20.7 Intake & Output: Intake and Output for Last 24 Hours 12/28/22 12/29/22 12/30/22 23:59 23:59 23:59 Intake Total 0 / 2145 2275 / 2275 300 / 300 Balance 2059 2275 / 2275 300 / 300 Medical Nutrition Assessment Dietitian: Malnutrition Criteria Met Start: 12/18/22 15:10 Freq: Status: Active Protocol: Document 12/28/22 07:54 AG (Rec: 12/28/22 07:54 AG [id number]) Nutrition Malnutrition Evidence of Malnutrition Exists Yes Malnutrition (severe): Chronic Evidenced By Suboptimal Energy Intake ( Severe),Physical Changes ( Severe) Intake Problem Increased Nutrient Needs (specify) Etiology protein r/t skin status Signs/Symptoms as evidenced by PI to coccyx and spine Status Active Problem Clinical Problem Swallowing Difficulty Etiology related to dysphagia Signs/Symptoms as evidenced by inability to consume PO nutrition Status Active Problem Chronic Disease or Condition Related Malnutrition Etiology chronic, severe malnutrition related to inadequate energy intake Signs/Symptoms as evidenced by estimated PO intake meeting <75% of estimated energy needs > 3 months, severe fat/muscle wasting per physical exam in orbital, temporal, clavicle, and acromion areas, BMI 19.1 Status Active Problem Biting/Chewing Difficulty Status Inactive Problem Recommendation Dietitian Recommendations/Changes 1) Continue bolus feeds via PEG- Jevity 1.5 180mL bolus 5x /day w/ 60mL H2O flush before and after each bolus to provide 1350 calories, 57 g protein, and 1284mL fluid/day. 2) John BID via PEG. 3) Will monitor ability to resume PO diet and adjust enteral nutrition as indicated . Recommend regular diet- texture/consistency per SOLAR ENERGY SYSTEMS DESIGNER as appropriate. 4) Continue daily wts. Lab / Micro Data Result Diagrams: 12/30/22 05:04 12/30/22 05:04 Labs: Laboratory Results - last 24 hr 12/30/22 05:04: Sodium 136, Potassium 4.2, Chloride 96 L, Carbon Dioxide 42.0 H, Anion Gap -2 L, BUN 33 H, Creatinine 0.28 L, Estim Creat Clear Calc 141.98, Est GFR (MDRD) Af Amer 310, Est GFR (MDRD) Non-Af 256, BUN/Creatinine Ratio 117.9 H, Glucose 102, Calcium 8.1 L, Total Bilirubin 0.20, AST 18, ALT 28, Alkaline Phosphatase 88, Total Protein 5.7 L, Albumin 1.7 L, Globulin 4.0, Albumin/Globulin Ratio 0.4 L 12/30/22 05:04: WBC 12.2 H, RBC 3.00 L, Hgb 7.5 L, Hct 26.3 L, MCV 87.7, MCH 25.0 L, MCHC 28.5 L, RDW Std Deviation 78.6 H, RDW Coeff of Angie 25.2 H, Plt Count 687 H, MPV 9.9, Immature Gran % (Auto) 0.600, Neut % (Auto) 87.1 H, Lymph % (Auto) 3.0 L, [place] % (Auto) 8.4, Eos % (Auto) 0.4, Baso % (Auto) 0.5, Absolute Neuts (auto) 10.6 H, Absolute Lymphs (auto) 0.37 L, Nucleated RBC % 0, Differential Comment SCANNED, Hypochromasia 2+, Anisocytosis 1+, Microcytosis 1+, Stomatocytes RARE Micro: Microbiology 12/18/22 09:10 Blood Culture (Wb) #2 - Anticubital Left Blood Culture - Final No growth in 5 days. 12/18/22 09:10 Blood Culture (Wb) - Anticubital Right Blood Culture - Final No growth in 5 days. 12/20/22 08:30 Sputum, Induced/Lukens Gram Stain - Final 12/20/22 08:30 Sputum, Induced/Lukens Respiratory Culture - Final Ivanna albicans 12/20/22 08:30 Stool Stool Occult Blood (SAMANTHA) - Final Occult Blood Positive Rhythm Strip Rhythm Strip: Sinus Rhythm Rate: 93 Ectopy: None Physical Exam Narrative General: Alert, oriented, no apparent distress HEENT: Atraumatic, normocephalic Eyes: Anicteric, normal conjunctiva, extraocular movements grossly intact Neck: Supple Respiratory: Still suboptimal air movement but no wheezes or rhonchi, no increased work of breathing, resting on BiPAP Cardiovascular: Regular rate and rhythm GI: Soft, nontender, nondistended Extremities: Improving lower extremity edema Musculoskeletal: Moving all extremities Neuro: No overt focal neurological deficits Skin: No rashes appreciated Psych: Cooperative Assessment & Plan Assessment/Plan (1) Acute and chronic respiratory failure with hypoxia: (2) Left upper lobe pneumonia: PLAN: Plan 67 F presented 12[facility]18 [facility] SOB. She was started on levaquin 3 D prior to admission. Was on 5L NC day of admission w/ O2 sat 70%. Required bipap and was admitted for acute on chronic respiratory failure. #Acute on chronic hypoxic resp failure 2/2 aspiration PNA with possible flash pulmonary edema complicated by underlying bronchiectasis, mod pulm HTN, recent PEs, hx chronic hfpef, and recurrent pleural effusions -Chest x-ray on admission with bilateral pleural effusions with bibasilar atelectasis more prominent on left side and possible early infiltrate left upper lobe -3-4 L O2 by NC now -Completed 7 day course of IV abx -Cx negative -Continue breathing treatments -This AM had variable O2 sats with good pleth and suspected this was in part to mucous plugging, chest x-ray similar to previous though official read pending -Encouraged flutter valve, I/S, and ordered mucinex and vest therapy and she needs to have improved -Most recent echo after PEs noted showed severely dilated RV w/ mod RV dysfxn and PASP of 55-60mm hg -12/29: Appears to be slightly intravascularly dry so Lasix held today and will resume at 40 mg daily tomorrow, suspect edema in extremities is multifactorial and in part is due to low albumin/nutrition. Legs to be wrapped today. -12/30: Continues to improve, legs appear less swollen as well. Awaiting placement #Bilateral pleural effusions left greater than right -Had previous VATS and pleurodesis on the right and in 2019 had Pleurx catheter on the left -Last admission had R thoracentesis 11/26/22 w/ removal of 525cc stephen colored fluid -pulmonology was following and ultimately decided against further intervention with effusion at this time. #Acute on chronic anemia/thrombocytosis -Required transfusion earlier in course -FOBT + -EGD 12/21 w/ intact gastrostomy w/ gtube and single bleeding angiodysplastic lesion in stomach treated w/ heater probe -Transfuse if <7 -Given the bleeding and thrombocytosis will obtain iron studies as this may be contributing to both, hemoglobin overall has been stable however -Eventually will need colonoscopy and capsule endoscopy on outpt basis -12/29: Was noted to have low iron, added iron supplementation #hx CAD s/p stents -AKY-JQU-Chhpox RCA w/ 3.0 x 20 mm Synergy Stent and Prox-Mid RCA w/ 3.5 x 24 mm Synergy Stent 06/18/2020 -Had been on asa, plavix, and eliquis, doubt triple therapy is indicated, will further assess and adjust medications #Chronic diastolic heart failure -BNP 200 on arrival, higher than previous -On diuretics d/t LE edema but has been hypotensive and seems to have contraction alkalosis -Will deescalate diuretics at this time -Daily weights #Paroxysmal A-fib -Amio, eliquis #Hypothyroidism: On Synthroid #Severe protein calorie malnutrition: * Nutrition on board #History of PE, was diagnosed with PE during the most recent admission. on eliquis #Oropharyngeal dysphagia: PEG tube placed 11/30/2022 after she required intubation during hospitalization from 11/21/2022 to 11/27/2022 and had persistent dysphagia. Continues to maintain nutrition via PEG tube but speech continuing to follow and recommendations noted #GERD: On PPI DVT prophylaxis: on eliquis Disposition; awaiting placement to [facility]. Charges/Coding Visit Charges Inpatient E&M: 59028 Subs Hosp L2
[2022-12-30] MEDS: LORazepam 0.5 MG Tablet PO (09:39)
[2022-12-30] MEDS: Iron Polysaccharide Complex 150 MG CAPSULE PO (09:39)
[2022-12-30] MEDS: Juven (unflavored) Packet 1 PACKET GT (09:40)
[2022-12-30] MEDS: APIXABAN 5 MG TABLET GT (09:40)
[2022-12-30] MEDS: Aspirin E.C. 81 MG Tablet PO (09:40)
[2022-12-30] MEDS: Amiodarone 200 MG Tablet PO (09:40)
[2022-12-30] MEDS: Furosemide 40 MG Tablet PO (09:40)
[2022-12-30] MEDS: 0.9% Saline Lock 10 ML Syringe IV (09:49)
--- NOTE | 2022-12-30 09:55 | CASEMGMT ---
ROSMERY received a call from Lily at [facility]. Lily reviewed the updates that were sent yesterday and she is concerned that patient needed 8L. She was also concerned about patient's white blood cell count going up. ROSMERY looked at patient's white blood cell counts and they have gone down the last 2 days. Lily asked for updates from today. ROSMERY told her SW can send her therapy notes, but do not know when they will see her. Lily said they will take patient, but feel she would benefit from a level II. (ROSMERY does not know what this means). [facility]. Patient was on 10L one time this visit and that was December 21. Patient has never been on 10L with therapy, 8L is the highest. Gisella Pires PACKAGING COORDINATOR FARRAH
[2022-12-30] MEDS: Acetaminophen 650 MG/20 ML UDC GT (10:10)
--- NOTE | 2022-12-30 11:04 | CASEMGMT ---
SW spoke with Respiratory therapy and asked that they trial patient on the bipap settings she was discharged on last time to make sure they are still okay. Gisella Pires OPERATOR FARRAH
--- NOTE | 2022-12-30 13:34 | CASEMGMT ---
Discharge Planning Parminder Sanchez received auth. ROSMERY made aware. Emelyn Ulloa
--- NOTE | 2022-12-30 13:46 | CASEMGMT ---
ROSMERY notified physician that patient was approved. ROSMERY spoke with Respiratory therapist Yosi and he had patient on bipap with bipap settings. These will be attached to d/c orders. SW notified RN patient was approved and will need a COVID test. Gisella YAN
--- NOTE | 2022-12-30 14:18 | PCM.TXEXTCAR ---
Diet Diet Order/Speech Therapy: 12/20/22 10:05 NPO [Diet: Nothing Per Oral] Is pt able to select menu?: No Diet Comments: Frequent oral care Tube Feed: Jevity 1.5 180mL bolus 5x/day w/ 60mL H2O flush before and after each bolus Routine Orders/Code Status Suppository Type: Dulcolax 10mg Suppository Frequency: Daily PRN O2 Liters per Minute: 4-8 O2 Frequency: Continuous Keep PO Greater than or Equal to (%): 90 Routine Lab Work: BMP (3-5 days) Code Status: DNRCC-A Wound(s) coccyx: Wound Type: Pressure Injury Dressing Change: Mepilex spine: Wound Type: Pressure Injury Dressing Change: applied new Mepilex dressing Therapies Physical Therapy: Eval and Treat Occupational Therapy: Eval and Treat Speech Therapy: Eval and Treat Problem/Diagnosis (1) Acute and chronic respiratory failure with hypoxia: Status: Chronic Code(s): J96.21 - Acute and chronic respiratory failure with hypoxia (2) Left upper lobe pneumonia: Status: Acute Code(s): J18.9 - Pneumonia, unspecified organism Plan #Acute on chronic hypoxic resp failure 2/2 aspiration PNA with possible flash pulmonary edema complicated by underlying bronchiectasis, mod pulm HTN, recent PEs, hx chronic hfpef, and recurrent pleural effusions #Oropharyngeal dysphagia: PEG tube placed 11/30/2022 after she required intubation during hospitalization from 11/21/2022 to 11/27/2022 and had persistent dysphagia. Continues to maintain nutrition via PEG tube #mod pulm HTN #bronchiectasis #chronic hfpef #recurrent Bilateral pleural effusions left greater than right #recent pulmonary embolism #CAD w/ [id number] RCA w/ 3.0 x 20 mm Synergy Stent and Prox-Mid RCA w/ 3.5 x 24 mm Synergy Stent 06/18/2020 #Chronic anemia #Thrombocytosis #pafib #Hypothyroidism #Severe protein calorie malnutrition 67 F presented 12/18 from [facility] with inc SOB. She was started on levaquin 3 D prior to admission. Was on 5L NC day of admission w/ O2 sat 70%. Required bipap and was admitted for acute on chronic respiratory failure. Chest x-ray on admission with bilateral pleural effusions and bibasilar atelectasis more prominent on the left and possibly early infiltrate on left upper lobe. It was felt that her respiratory failure was secondary to aspiration pneumonia (s/p PEG) on top of her chronic bronchiectasis, recent PEs, recurrent pleural effusions, pulmonary hypertension, and recent pulmonary embolisms. She was seen in combination with pulmonology. During hospitalization she completed 7-day course of IV antibiotics and improved. Did have difficulty with intermittent hypoxia requiring escalating O2 requirements 12/28 with significant congestion and cough but was unable to get up sputum, chest therapy was ordered, flutter valve, I-S, Robitussin and this improved. She was also diuresed during her admission due to concern for possible flash pulmonary edema. She diuresed well and though lower extremity still had some pitting edema she appeared intravascularly depleted so Lasix were held and then resumed at an oral equivalent to her home dose. Leg slowly improving but suspect that edema in extremities is multifactorial in part due to low albumin/nutrition. May benefit from leg wrapping or compression stockings. She has variable requirements from roughly 3 to 8 L which is multifactorial as above and goal for her SPO2 is 90%. In regards to her pleural effusions, had previous VATS and pleurodesis on the right and in 2019 had Pleurx catheter on the left. Last admission had R thoracentesis 11/26/22 w/ removal of 525cc stephen colored fluid. Pulmonology was following and ultimately decided against further intervention with effusion at this time, advise she follows up on an outpatient basis and may need eventual CT surgery referral. Hospital stay complicated by acute on chronic anemia with positive FOBT. EGD 12/21 w/ intact gastrostomy w/ gtube and single bleeding angiodysplastic lesion in stomach treated w/ heater probe. Eventually will need colonoscopy and capsule endoscopy on outpt basis. Iron studies were checked and she was iron deficient likely secondary to the slow bleed with angioid dysplasia and she was started on oral iron supplement. Discharge instructions as below: -Please follow-up with pulmonology upon discharge. Please call their office to schedule hospital follow-up appointment upon discharge. -You will likely need evaluated by cardiothoracic surgery in the future due to your recurrent pleural effusions, this can be discussed further with your outpatient provider on follow-up -I will be very important that you continue BiPAP. Your current settings are 12/8 with a rate of 12 and FiO2 35%. -You will be discharged on continuous oxygen, you may need up to 8 L at all times however this can be titrated to keep your oxygen level greater than 90% -Recommend daily weights to make sure you are not retaining fluid, you will resume your 1 mg of bumetanide daily, your spironolactone has been held during this hospitalization and can be resumed on an outpatient basis depending on your fluid status and blood pressure -Would recommend lab work (BMP) to check your potassium, bicarbonate, kidney function in 3-5 days -Suspect some of the swelling in your legs is due to low protein intake, recommend John twice daily in addition to Jevity. Jevity 1.5 180mL bolus 5x/day w/ 60mL H2O flush before and after each bolus to provide 1350 calories, 57 g protein, and 1284mL fluid/day. Pt would like feeds at 0600, 1000, 1400, 2000, and 2200. -You were admitted on Eliquis, clopidogrel, aspirin but you likely do not need all 3 of these given comorbidities, bleeding risk, timing of stent placement. You will be discharged on Eliquis and aspirin, this can be discussed with your physician for further adjustment or alteration -You will need to follow-up with Dr. Carter with GI in his office upon discharge. Please call his office to schedule your hospital follow-up appointment (ph. [phone]) -You will be started on iron supplementation due to low iron -Please call your primary care provider's office upon discharge to schedule a hospital follow up within 1 week. -For any concerning signs or symptoms please call 911 or proceed to the nearest emergency department Allergies/Procedures Done in Hospital Allergies amoxicillin [From Augmentin] Allergy (Verified 11/19/22 18:15) Rash clavulanic acid [From Augmentin] Allergy (Verified 11/19/22 18:15) Rash doxycycline Allergy (Verified 11/19/22 18:15) Rash tiotropium Adverse Reaction (Unknown, Verified 11/19/22 18:15) PT UNSURE OF REACTION budesonide [From Symbicort] Adverse Reaction (Verified 11/19/22 18:15) high feeling bumetanide Adverse Reaction (Verified 11/19/22 18:15) PT UNSURE OF REACTION cefdinir Adverse Reaction (Verified 11/19/22 18:15) Bleeding pt reported red stool clindamycin Adverse Reaction (Verified 11/19/22 18:15) Abd cramps/diarrhea GI upset fluticasone [From Flonase] Adverse Reaction (Verified 11/19/22 18:15) HEADACHES formoterol [From Symbicort] Adverse Reaction (Verified 11/19/22 18:15) HIGH FEELING furosemide Adverse Reaction (Verified 11/19/22 13:12) NEEDS FOLLOW-UP pt reports dry mouth and weakness w/ many diuretics spironolactone Adverse Reaction (Verified 11/19/22 13:12) NEEDS FOLLOW-UP pt reports dry mouth and weakness w/ many diuretics umeclidinium Adverse Reaction (Verified 11/19/22 13:12) Shortness of breath SOB, myalgia Procedures: 2-D Echocardiogram, EGD and - Type of Care/Length of Stay Estimated LOS: Convalescent Care Less Than 30 days Type of Care Needed: Skilled Rehab Potential: Fair Prognosis: Fair Additional Orders/Day of Discharge Additional Orders: BIPAP qhs: 07/30, rate 12, FiO2 35% Day of Discharge: 12/30/22 Dietary and Speech Recommendations Dietitian Recommendations/Changes: 1) Continue bolus feeds via PEG- Jevity 1.5 180mL bolus 5x/day w/ 60mL H2O flush before and after each bolus to provide 1350 calories, 57 g protein, and 1284mL fluid/day. 2) John BID via PEG. 3) Will monitor ability to resume PO diet and adjust enteral nutrition as indicated. Recommend regular diet- texture/consistency per [employer] as appropriate. 4) Continue daily wts. Discharge Plan Admission Admit Date/Time: 12/18/22 10:31 Primary Reason for Your Visit: Shortness of breath Attending Provider: Lakia Kovacs Primary Care Provider: Atul Garcia Consulting Providers: Nomi Bunn ; Bernard Mcguire ; Darrin Meredith ; Navi Peterson ; Mal Iniguez ; Vicki Sahu NP ; Juana Cerda Instructions Patient Instructions: ED Pneumonia (Adult) Additional Instructions / Restrictions: DISCHARGE INSTRUCTIONS PLEASE READ *Please take this with you to your next doctors appointment* -Please follow-up with pulmonology upon discharge. Please call their office to schedule hospital follow-up appointment upon discharge. -You will likely need evaluated by cardiothoracic surgery in the future due to your recurrent pleural effusions, this can be discussed further with your outpatient provider on follow-up -I will be very important that you continue BiPAP. Your current settings are 12/8 with a rate of 12 and FiO2 35%. -You will be discharged on continuous oxygen, you may need up to 8 L at all times however this can be titrated to keep your oxygen level greater than 90% -Recommend daily weights to make sure you are not retaining fluid, you will resume your 1 mg of bumetanide daily, your spironolactone has been held during this hospitalization and can be resumed on an outpatient basis depending on your fluid status and blood pressure -Would recommend lab work (BMP) to check your potassium, bicarbonate, kidney function in 3-5 days -Suspect some of the swelling in your legs is due to low protein intake, recommend John twice daily in addition to Jevity. Jevity 1.5 180mL bolus 5x/day w/ 60mL H2O flush before and after each bolus to provide 1350 calories, 57 g protein, and 1284mL fluid/day. Pt would like feeds at 0600, 1000, 1400, 2000, and 2200. -You were admitted on Eliquis, clopidogrel, aspirin but you likely do not need all 3 of these given comorbidities, bleeding risk, timing of stent placement. You will be discharged on Eliquis and aspirin, this can be discussed with your physician for further adjustment or alteration -You will need to follow-up with Dr. Carter with GI in his office upon discharge. Please call his office to schedule your hospital follow-up appointment (ph. [phone]) -You will be started on iron supplementation due to low iron -Please call your primary care provider's office upon discharge to schedule a hospital follow up within 1 week. -For any concerning signs or symptoms please call 911 or proceed to the nearest emergency department Discharge Orders/Prescriptions Prescriptions: New guaifenesin 100 mg/5 mL Liquid 200 mg G-tube Q6 Qty: 0 0RF polysaccharide iron complex [Ferrex 150] 150 mg iron Capsule 150 mg PO DAILYCM Qty: 0 0RF Jevity 1.5 Supa 0.06 gram-1.5 kcal/mL Liquid 180 ml G-tube 0600,1000,1400,2000,2200 Qty: 0 0RF John (with collagen) 7-7-1.5 gram Powder In Packet 1 packet G-tube BIDCM Qty: 0 0RF Continued levothyroxine 88 mcg tablet 88 mcg PO MOTUWETHFRSA Rx Instructions: one and one half tablet wednesday montelukast 10 mg tablet 10 mg PO DAILY vitamin B complex [B Complex-Vitamin B12] Tablet 1 tab PO DAILY omeprazole 20 MG capsule 40 mg PO DAILY Label Comments: ACID REFLUX albuterol sulfate 1 INHALER inhaler 2 puff INHALATION Q4H PRN PRN (Reason: Bronchodialation) Label Comments: SHORTNESS OF BREATH multivitamin Tablet 1 tab PO DAILY Label Comments: SUPPLEMENT ascorbic acid (vitamin C) 500 MG tablet,chewable 500 mg PO BIDCM Qty: 0 0RF Rx Instructions: Take with iron budesonide 180 mcg/actuation aerosol powdr breath activated 1 inh INHALATION BID levothyroxine 88 mcg tablet 132 mcg PO GEORGES Label Comments: TAKE 1 TABLET BY MOUTH ONCE DAILY EXCEPT WEDNESDAY TAKE 1&1/2 TABLET ON AN EMPTY STOMACH acetaminophen 500 mg Tablet 1,000 mg PO Q6H PRN (Reason: Pain) atorvastatin 40 mg tablet 40 mg PO QHS amiodarone 200 mg tablet 200 mg PO DAILY aspirin 81 mg tablet,delayed release (DR/EC) 81 mg PO DAILY ipratropium-albuterol 20-100 mcg/actuation mist 1 puff inhalation Q4H lorazepam 0.5 MG tablet 0.5 mg PO BID PRN PRN (Reason: Anxiety) 3 Days Qty: 6 0RF Label Comments: Anxiety metoprolol tartrate 25 mg tablet 12.5 mg PO BID Qty: 30 0RF Rx Instructions: Hold for heart rate <60 or SBP <100 colchicine 0.6 mg tablet 0.6 mg PO DAILY Qty: 30 11RF bumetanide 1 mg tablet 1 mg PO DAILY Qty: 90 3RF Changed alendronate 70 mg tablet 1 tablet PO QWEEK 30 Days Qty: 0 0RF potassium chloride 10 mEq tablet extended release 20 meq PO DAILY 30 Days Qty: 0 0RF Eliquis 5 mg tablet 5 mg feeding tube BID 30 Days Qty: 0 0RF Discontinued Mucinex 1,200 mg Tablet Extended Release 12hr 1,200 mg PO BID clopidogrel 75 mg tablet 75 mg PO DAILY spironolactone 25 mg tablet 25 mg PO DAILY Referrals / Follow Up: Bernard Mcguire MD [Med Staff - Active Staff] - See Referral Note (Please follow-up with Dr. Mcguire upon discharge. Please call their office to schedule hospital follow-up appointment upon discharge.) Atul Garcia MD [Primary Care Provider] - Within 1 Week Trevor Carter DO [Med Staff - Active Staff] - See Referral Note (You will need to follow-up with Dr. Carter with GI in his office upon discharge. Please call his office to schedule your hospital follow-up appointment (ph. [phone])) Disposition Disposition (needs filled in before D/C Order can be placed): Care Home Facility
--- NOTE | 2022-12-30 14:39 | DS.PCM_ITS ---
Providers Date of Admission: 12/18/22 Date of Discharge: 12/30/22 Primary Care Physician: Dr. Atul Garcia MD Consultations 12/18/22 12:29 Consult: Conveyor Technician / Pulmonary Medicine Routine Consulting Provider: Pulmonary Medicine bernice Santacruz Reason for Consult: Pneumonia with hypoxic failure EMERGENT Consult: No Notified: Yes Date Notified: 12/18/22 Time Notified: 10:41 Method of Notification: ED Physician Initiated 12/19/22 17:00 Consult: Onc/Wound/risk specialist Routine Comment: Reason for Consult:: Decubitus ulcer 12/21/22 07:00 Consult: Gastroenterology Routine Consulting Provider: [facility] Reason for Consult: GI bleed EMERGENT Consult: No Notified: Yes Date Notified: 12/20/22 Time Notified: 10:19 Method of Notification: Text Reason For Visit: PNEUMONIA Diagnosis Discharge Diagnosis (1) Acute and chronic respiratory failure with hypoxia: Status: Chronic Code(s): J96.21 - Acute and chronic respiratory failure with hypoxia (2) Left upper lobe pneumonia: Status: Acute Code(s): J18.9 - Pneumonia, unspecified organism Plan #Acute on chronic hypoxic resp failure 2/2 aspiration PNA with possible flash pulmonary edema complicated by underlying bronchiectasis, mod pulm HTN, recent PEs, hx chronic hfpef, and recurrent pleural effusions #Oropharyngeal dysphagia: PEG tube placed 11/30/2022 after she required intubation during hospitalization from 11/21/2022 to 11/27/2022 and had persistent dysphagia. Continues to maintain nutrition via PEG tube #mod pulm HTN #bronchiectasis #chronic hfpef #recurrent Bilateral pleural effusions left greater than right #recent pulmonary embolism #CAD w/ PDS-UAV-Uuzsts RCA w/ 3.0 x 20 mm Synergy Stent and Prox-Mid RCA w/ 3.5 x 24 mm Synergy Stent 06/18/2020 #Chronic anemia #Thrombocytosis #pafib #Hypothyroidism #Severe protein calorie malnutrition Medications at Discharge Home Medications albuterol sulfate 90 mcg/actuation aerosol inhaler 2 puff inhalation Q4H PRN PRN Bronchodialation 09/07/16 omeprazole 20 mg capsule,delayed release 40 mg PO DAILY GERD 09/07/16 ascorbic acid (vitamin C) 500 mg chewable tablet 500 mg PO BIDCM supplement ##0 06/20/20 budesonide 180 mcg/actuation breath activated powder inhaler 1 inh inhalation BID COPD 02/11/21 montelukast 10 mg tablet 10 mg PO DAILY Breathing 02/11/21 vitamin B complex (B Complex-Vitamin B12 tablet) 1 tab PO DAILY Supplement 02/11/21 colchicine 0.6 mg tablet 0.6 mg PO DAILY gout #30 tabs 01/14/22 levothyroxine 88 mcg tablet 88 mcg PO MOTUWETHFRSA Thyroid 01/20/22 acetaminophen 500 mg tablet 1,000 mg PO Q6H PRN Pain 06/17/22 levothyroxine 88 mcg tablet 132 mcg PO GEORGES Thyroid 06/17/22 multivitamin 1 tab PO DAILY supplement 07/08/22 bumetanide 1 mg tablet 1 mg PO DAILY water pill #90 tabs 09/21/22 amiodarone 200 mg tablet 200 mg PO DAILY Heart Rhythm 12/20/22 aspirin 81 mg tablet,delayed release 81 mg PO DAILY Heart health 12/20/22 atorvastatin 40 mg tablet 40 mg PO QHS Cholestrol 12/20/22 ipratropium 20 mcg-albuterol 100 mcg/actuation mist for inhalation 1 puff inhalation Q4H Breathing 12/20/22 alendronate 70 mg tablet 1 tablet PO QWEEK Bone health 30 days #0 tabs 12/30/22 apixaban 5 mg tablet (Eliquis) 5 mg feeding tube BID Blood thinner afib 30 days #0 tabs 12/30/22 arginine 7 gram-glutam 7 gram-CaHMB 1.5 [id number] oral pwd pkt (John (with collagen)) 1 packet G-tube BIDCM #0 ea 12/30/22 guaifenesin 100 mg/5 mL oral liquid 200 mg (10 mL) G-tube Q6 #0 mL 12/30/22 lactose-reduced food with fiber 0.06 gram-1.5 kcal/mL oral liquid (Jevity 1.5 Supa) 180 ml G-tube 0600,1000,1400,2000,2200 #0 mL 12/30/22 lorazepam 0.5 mg tablet 0.5 mg PO BID PRN PRN Anxiety 3 days #6 tabs 12/30/22 metoprolol tartrate 25 mg tablet 12.5 mg PO BID Blood pressure #30 tabs 12/30/22 polysaccharide iron complex 150 mg iron capsule (Ferrex) 150 mg PO DAILYCM #0 caps 12/30/22 potassium chloride 10 mEq tablet,extended release 20 meq PO DAILY Supplement 30 days #0 tabs 12/30/22 Hospital Course Procedures EGD Summary of Care Provided Minutes Spent on Discharge: 50 Hospital Course: 67 F presented 12/18 from long term with inc SOB. She was started on levaquin 3 D prior to admission. Was on 5L NC day of admission w/ O2 sat 70%. Required bipap and was admitted for acute on chronic respiratory failure. Chest x-ray on admission with bilateral pleural effusions and bibasilar atelectasis more prominent on the left and possibly early infiltrate on left upper lobe. It was felt that her respiratory failure was secondary to aspiration pneumonia (s/p PEG) on top of her chronic bronchiectasis, recent PEs, recurrent pleural effusions, pulmonary hypertension, and recent pulmonary embolisms. She was seen in combination with pulmonology. During hospitalization she completed 7-day course of IV antibiotics and improved. Did have difficulty with intermittent hypoxia requiring escalating O2 requirements 12/28 with significant congestion and cough but was unable to get up sputum, chest therapy was ordered, flutter valve, I-S, Robitussin and this improved. She was also diuresed during her admission due to concern for possible flash pulmonary edema. She diuresed well and though lower extremity still had some pitting edema she appeared intravascularly depleted so Lasix were held and then resumed at an oral equivalent to her home dose. Leg slowly improving but suspect that edema in extremities is multifactorial in part due to low albumin/nutrition. May benefit from leg wrapping or compression stockings. She has variable requirements from roughly 3 to 8 L which is multifactorial as above and goal for her SPO2 is 90%. In regards to her pleural effusions, had previous VATS and pleurodesis on the right and in 2019 had Pleurx catheter on the left. Last admission had R thoracentesis 11/26/22 w/ removal of 525cc stephen colored fluid. Pulmonology was following and ultimately decided against further intervention with effusion at this time, advise she follows up on an outpatient basis and may need eventual CT surgery referral. Hospital stay complicated by acute on chronic anemia with positive FOBT. EGD 12/21 w/ intact gastrostomy w/ gtube and single bleeding angiodysplastic lesion in stomach treated w/ heater probe. Eventually will need colonoscopy and capsule endoscopy on outpt basis. Iron studies were checked and she was iron deficient likely secondary to the slow bleed with angioid dysplasia and she was started on oral iron supplement. Discharge instructions as below: -Please follow-up with pulmonology upon discharge. Please call their office to schedule hospital follow-up appointment upon discharge. -You will likely need evaluated by cardiothoracic surgery in the future due to your recurrent pleural effusions, this can be discussed further with your outpatient provider on follow-up -I will be very important that you continue BiPAP. Your current settings are 12/8 with a rate of 12 and FiO2 35%. -You will be discharged on continuous oxygen, you may need up to 8 L at all times however this can be titrated to keep your oxygen level greater than 90% -Recommend daily weights to make sure you are not retaining fluid, you will resume your 1 mg of bumetanide daily, your spironolactone has been held during this hospitalization and can be resumed on an outpatient basis depending on your fluid status and blood pressure -Would recommend lab work (BMP) to check your potassium, bicarbonate, kidney function in 3-5 days -Suspect some of the swelling in your legs is due to low protein intake, recommend John twice daily in addition to Jevity. Jevity 1.5 180mL bolus 5x/day w/ 60mL H2O flush before and after each bolus to provide 1350 calories, 57 g protein, and 1284mL fluid/day. Pt would like feeds at 0600, 1000, 1400, 2000, and 2200. -You were admitted on Eliquis, clopidogrel, aspirin but you likely do not need all 3 of these given comorbidities, bleeding risk, timing of stent placement. You will be discharged on Eliquis and aspirin, this can be discussed with your physician for further adjustment or alteration -You will need to follow-up with Dr. Carter with GI in his office upon discharge. Please call his office to schedule your hospital follow-up appointment (ph. [phone]) -You will be started on iron supplementation due to low iron -Please call your primary care provider's office upon discharge to schedule a hospital follow up within 1 week. -For any concerning signs or symptoms please call 911 or proceed to the nearest emergency department Physical Exam Narrative General: Alert, oriented, no apparent distress HEENT: Atraumatic, normocephalic Eyes: Anicteric, normal conjunctiva, extraocular movements grossly intact Neck: Supple Respiratory: Still dull at the bases, no wheezing,, resting on BiPAP Cardiovascular: Regular rate and rhythm GI: Soft, nontender, nondistended Extremities: Improving lower extremity edema Musculoskeletal: Moving all extremities Neuro: No overt focal neurological deficits Skin: No rashes appreciated Psych: Cooperative Medical Records Data Medical Nutrition Assessment Dietitian: Malnutrition Criteria Met Start: 12/18/22 15:10 Freq: Status: Active Protocol: Document 12/28/22 07:54 AG (Rec: 12/28/22 07:54 [id number]) Nutrition Malnutrition Evidence of Malnutrition Exists Yes Malnutrition (severe): Chronic Evidenced By Suboptimal Energy Intake ( Severe),Physical Changes ( Severe) Intake Problem Increased Nutrient Needs (specify) Etiology protein r/t skin status Signs/Symptoms as evidenced by PI to coccyx and spine Status Active Problem Clinical Problem Swallowing Difficulty Etiology related to dysphagia Signs/Symptoms as evidenced by inability to consume PO nutrition Status Active Problem Chronic Disease or Condition Related Malnutrition Etiology chronic, severe malnutrition related to inadequate energy intake Signs/Symptoms as evidenced by estimated PO intake meeting <75% of estimated energy needs > 3 months, severe fat/muscle wasting per physical exam in orbital, temporal, clavicle, and acromion areas, BMI 19.1 Status Active Problem Biting/Chewing Difficulty Status Inactive Problem Recommendation Dietitian Recommendations/Changes 1) Continue bolus feeds via PEG- Jevity 1.5 180mL bolus 5x /day w/ 60mL H2O flush before and after each bolus to provide 1350 calories, 57 g protein, and 1284mL fluid/day. 2) John BID via PEG. 3) Will monitor ability to resume PO diet and adjust enteral nutrition as indicated . Recommend regular diet- texture/consistency per JEWELRY SETTER as appropriate. 4) Continue daily wts. Weight / BMI Weight Weight: 44.9 kg Body Mass Index (BMI) 20.7 ABG / Lab / Microbiology Data Result Diagrams: 12/30/22 05:04 12/30/22 05:04 Laboratory: Laboratory Results - last 24 hr 12/30/22 05:04: Sodium 136, Potassium 4.2, Chloride 96 L, Carbon Dioxide 42.0 H, Anion Gap -2 L, BUN 33 H, Creatinine 0.28 L, Estim Creat Clear Calc 141.98, Est GFR (MDRD) Af Amer 310, Est GFR (MDRD) Non-Af 256, BUN/Creatinine Ratio 117.9 H, Glucose 102, Calcium 8.1 L, Total Bilirubin 0.20, AST 18, ALT 28, Alkaline Phosphatase 88, Total Protein 5.7 L, Albumin 1.7 L, Globulin 4.0, Albumin/Globulin Ratio 0.4 L 12/30/22 05:04: WBC 12.2 H, RBC 3.00 L, Hgb 7.5 L, Hct 26.3 L, MCV 87.7, MCH 25.0 L, MCHC 28.5 L, RDW Std Deviation 78.6 H, RDW Coeff of Angie 25.2 H, Plt Count 687 H, MPV 9.9, Immature Gran % (Auto) 0.600, Neut % (Auto) 87.1 H, Lymph % (Auto) 3.0 L, [place] % (Auto) 8.4, Eos % (Auto) 0.4, Baso % (Auto) 0.5, Absolute Neuts (auto) 10.6 H, Absolute Lymphs (auto) 0.37 L, Nucleated RBC % 0, Differential Comment SCANNED, Hypochromasia 2+, Anisocytosis 1+, Microcytosis 1+, Stomatocytes RARE Microbiology: Microbiology 12/18/22 09:10 Blood Culture (Wb) #2 - Anticubital Left Blood Culture - Final No growth in 5 days. 12/18/22 09:10 Blood Culture (Wb) - Anticubital Right Blood Culture - Final No growth in 5 days. 12/20/22 08:30 Sputum, Induced/Lukens Gram Stain - Final 12/20/22 08:30 Sputum, Induced/Lukens Respiratory Culture - Final Ivanna albicans 12/20/22 08:30 Stool Stool Occult Blood (SAMANTHA) - Final Occult Blood Positive D/C Instructions Discharge Diet: - (DASH diet, 3000 mg sodium restriction, 2 L fluid restriction) Meaningful Use Info Meaningful Use Diagnoses (Choose all that apply): None applicable Discharge Plan Admission Admit Date/Time: 12/18/22 10:31 Primary Reason for Your Visit: Shortness of breath Attending Provider: Lakia Kovacs Primary Care Provider: Atul Garcia Consulting Providers: Nomi Bunn Bruce ; Darrin Meredith ; Navi Peterson ; Mal Iniguez ; Vicki Sahu NP ; Juana Cerda Instructions Patient Instructions: ED Pneumonia (Adult) Additional Instructions / Restrictions: DISCHARGE INSTRUCTIONS PLEASE READ *Please take this with you to your next doctors appointment* -Please follow-up with pulmonology upon discharge. Please call their office to schedule hospital follow-up appointment upon discharge. -You will likely need evaluated by cardiothoracic surgery in the future due to your recurrent pleural effusions, this can be discussed further with your outpatient provider on follow-up -I will be very important that you continue BiPAP. Your current settings are 12/8 with a rate of 12 and FiO2 35%. -You will be discharged on continuous oxygen, you may need up to 8 L at all times however this can be titrated to keep your oxygen level greater than 90% -Recommend daily weights to make sure you are not retaining fluid, you will resume your 1 mg of bumetanide daily, your spironolactone has been held during this hospitalization and can be resumed on an outpatient basis depending on your fluid status and blood pressure -Would recommend lab work (BMP) to check your potassium, bicarbonate, kidney function in 3-5 days -Suspect some of the swelling in your legs is due to low protein intake, recommend John twice daily in addition to Jevity. Jevity 1.5 180mL bolus 5x/day w/ 60mL H2O flush before and after each bolus to provide 1350 calories, 57 g protein, and 1284mL fluid/day. Pt would like feeds at 0600, 1000, 1400, 2000, and 2200. -You were admitted on Eliquis, clopidogrel, aspirin but you likely do not need all 3 of these given comorbidities, bleeding risk, timing of stent placement. You will be discharged on Eliquis and aspirin, this can be discussed with your physician for further adjustment or alteration -You will need to follow-up with Dr. Carter with GI in his office upon discharge. Please call his office to schedule your hospital follow-up appointment (ph. [phone]) -You will be started on iron supplementation due to low iron -Please call your primary care provider's office upon discharge to schedule a hospital follow up within 1 week. -For any concerning signs or symptoms please call 911 or proceed to the nearest emergency department Discharge Orders/Prescriptions Prescriptions: New guaifenesin 100 mg/5 mL Liquid 200 mg G-tube Q6 Qty: 0 0RF polysaccharide iron complex [Ferrex 150] 150 mg iron Capsule 150 mg PO DAILYCM Qty: 0 0RF Jevity 1.5 Supa 0.06 gram-1.5 kcal/mL Liquid 180 ml G-tube 0600,1000,1400,2000,2200 Qty: 0 0RF John (with collagen) 7-7-1.5 gram Powder In Packet 1 packet G-tube BIDCM Qty: 0 0RF Continued levothyroxine 88 mcg tablet 88 mcg PO MOTUWETHFRSA Rx Instructions: one and one half tablet wednesday montelukast 10 mg tablet 10 mg PO DAILY vitamin B complex [B Complex-Vitamin B12] Tablet 1 tab PO DAILY omeprazole 20 MG capsule 40 mg PO DAILY Label Comments: ACID REFLUX albuterol sulfate 1 INHALER inhaler 2 puff INHALATION Q4H PRN PRN (Reason: Bronchodialation) Label Comments: SHORTNESS OF BREATH multivitamin Tablet 1 tab PO DAILY Label Comments: SUPPLEMENT ascorbic acid (vitamin C) 500 MG tablet,chewable 500 mg PO BIDCM Qty: 0 0RF Rx Instructions: Take with iron budesonide 180 mcg/actuation aerosol powdr breath activated 1 inh INHALATION BID levothyroxine 88 mcg tablet 132 mcg PO GEORGES Label Comments: TAKE 1 TABLET BY MOUTH ONCE DAILY EXCEPT WEDNESDAY TAKE 1&1/2 TABLET ON AN EMPTY STOMACH acetaminophen 500 mg Tablet 1,000 mg PO Q6H PRN (Reason: Pain) atorvastatin 40 mg tablet 40 mg PO QHS amiodarone 200 mg tablet 200 mg PO DAILY aspirin 81 mg tablet,delayed release (DR/EC) 81 mg PO DAILY ipratropium-albuterol 20-100 mcg/actuation mist 1 puff inhalation Q4H lorazepam 0.5 MG tablet 0.5 mg PO BID PRN PRN (Reason: Anxiety) 3 Days Qty: 6 0RF Label Comments: Anxiety metoprolol tartrate 25 mg tablet 12.5 mg PO BID Qty: 30 0RF Rx Instructions: Hold for heart rate <60 or SBP <100 colchicine 0.6 mg tablet 0.6 mg PO DAILY Qty: 30 11RF bumetanide 1 mg tablet 1 mg PO DAILY Qty: 90 3RF Changed alendronate 70 mg tablet 1 tablet PO QWEEK 30 Days Qty: 0 0RF potassium chloride 10 mEq tablet extended release 20 meq PO DAILY 30 Days Qty: 0 0RF Eliquis 5 mg tablet 5 mg feeding tube BID 30 Days Qty: 0 0RF Discontinued Mucinex 1,200 mg Tablet Extended Release 12hr 1,200 mg PO BID clopidogrel 75 mg tablet 75 mg PO DAILY spironolactone 25 mg tablet 25 mg PO DAILY Referrals / Follow Up: Bernard Mcguire MD [Med Staff - Active Staff] - See Referral Note (Please follow- up with Dr. Mcguire upon discharge. Please call their office to schedule hospital follow-up appointment upon discharge.) Atul Garcia MD [Primary Care Provider] - Within 1 Week Trevor Carter DO [Med Staff - Active Staff] - See Referral Note (You will need to follow-up with Dr. Carter with GI in his office upon discharge. Please call his office to schedule your hospital follow-up appointment (ph. [phone])) Disposition Disposition (needs filled in before D/C Order can be placed): [facility] Facility Charges/Coding Visit Charges Inpatient E&M: 36556 Disch Hosp >30min
--- NOTE | 2022-12-30 14:50 | CASEMGMT ---
Discharge Planning Med list, discharge orders, and scripts sent to [facility]. Emelyn Ulloa
--- NOTE | 2022-12-30 15:26 | NURSING ---
report called to Leida Goodwin RN at [facility]
--- NOTE | 2022-12-30 15:29 | CASEMGMT ---
Discharge Planning [facility] and patients son was notified of pickup time. VM was left with son, Damion. Emelyn Ulloa
--- NOTE | 2022-12-30 15:35 | CASEMGMT ---
ROSMERY met with patient. Patient was aware she is leaving at 430 and she already notified her son. Plan: d/c back to [facility] under skilled level of care. Gisella YAN
== END 2022-12-30 16:44 | disposition skilled nursing facility (03) | DRG 177 ==
LOC: ED 10:04 → ICU 11:02 → PCU 12-23 10:51
PROVIDERS: Family Medicine; Hospitalist; Internal Medicine Critical Care Medicine; Internal Medicine Gastroenterology; Student in an Organized Health Care Education/Training Program; Admitting Provider Family Medicine; Emergency Provider Emergency Medicine; PCP Family Medicine; Visit Provider Internal Medicine
PROC: 0DJ08ZZ Inspection of Upper Intestinal Tract, Via Natural or Artificial Opening Endoscopic (ICD-10-PCS; CPT 43235; principal; 2022-12-21 11:25)
DX: J69.0 Pneumonitis due to inhalation of food and vomit (principal); J96.21 Acute and chronic respiratory failure with hypoxia; I26.99 Other pulmonary embolism without acute cor pulmonale; E43 Unspecified severe protein-calorie malnutrition; K31.811 Angiodysplasia of stomach and duodenum with bleeding; R64 Cachexia; J47.0 Bronchiectasis with acute lower respiratory infection; I50.32 Chronic diastolic (congestive) heart failure; J90 Pleural effusion, not elsewhere classified; D62 Acute posthemorrhagic anemia; E87.1 Hypo-osmolality and hyponatremia; R18.8 Other ascites; I27.20 Pulmonary hypertension, unspecified; L89.309 Pressure ulcer of unspecified buttock, unspecified stage; I27.81 Cor pulmonale (chronic); I11.0 Hypertensive heart disease with heart failure; I48.0 Paroxysmal atrial fibrillation; J42 Unspecified chronic bronchitis; J13 Pneumonia due to Streptococcus pneumoniae; Z93.1 Gastrostomy status; K21.9 Gastro-esophageal reflux disease without esophagitis; I25.10 Atherosclerotic heart disease of native coronary artery without angina pectoris; E03.9 Hypothyroidism, unspecified; E78.5 Hyperlipidemia, unspecified; D50.9 Iron deficiency anemia, unspecified; R53.81 Other malaise; Z79.51 Long term (current) use of inhaled steroids; Z80.0 Family history of malignant neoplasm of digestive organs; Z95.5 Presence of coronary angioplasty implant and graft; Z79.899 Other long term (current) drug therapy; Z87.891 Personal history of nicotine dependence; Z79.01 Long term (current) use of anticoagulants; Z86.711 Personal history of pulmonary embolism; Z66 Do not resuscitate; R13.12 Dysphagia, oropharyngeal phase
CPT/HCPCS: 36415; 36600; 71045; 74230; 80048; 80053; 80202; 82274; 82728; 82803; 83540; 83550; 83605; 83880; 84484; 85014; 85018; 85025; 85610; 85730; 86850; 86900; 86901; 86920; 86922; 87040; 87070; 87205; 87426; 92507; 92526; 92610; 92611; 93005; 94002; 94003; 94640; 94668; 94762; 97110; 97163; 97166; 97530; 97535; 97802; 97803; 99285; J2185; J7030; J7040; J7050; J7120; P9016; A4216; J1940; J2405

== ENCOUNTER 2022-12-30 18:45 | Inpatient (IN) | payer BC, MEDICARE, SELFPAY ==
[2022-12-30] VITALS (14 sets, daily range): BP systolic 93–123; BP diastolic 63–78; PULSE 94–115; RESP 12–35; TEMP 36.6–37.2; O2SAT 89–100; BMI 21.7
--- NOTE | 2022-12-30 19:30 | ED.RN ---
1929: PT sating 82% on high flow canula at 12L. RT notified and to room. Patient placed on NRB mask then Bipap now 95%
--- NOTE | 2022-12-30 19:37 | EKG12_ITS ---
Test Reason : DYSRHYTHMIA Blood Pressure : / mmHG Vent. Rate : 102 BPM Atrial Rate : 102 BPM P-R Int : 128 ms QRS Dur : 066 ms QT Int : 366 ms P-R-T Axes : 045 030 038 degrees QTc Int : 477 ms Sinus tachycardia Otherwise normal ECG Confirmed by NABEEL WELCH, RAJESH ([id number]), senior technical editor LIV HOPKINS ([id number]) on 01/01/2023 8:10:07 AM Referred By: RISHABH Confirmed By:RAJESH LEES MD
--- NOTE | 2022-12-30 19:39 | EX.ED.DYSGE1 ---
HPI History of Present Illness Chief Complaint: Shortness of Breath Detail of Chief Complaint: Shortness of breath Informant: patient Narrative Narrative: Patient presents emergency department complaint shortness of breath that started about an hour and a half ago. Patient was discharged from the hospital today and sent to extended care facility. He was to be on BiPAP apparently. Patient complains of a sensation like there is some stuck in his throat. She denies fever or cough. She denies chest pain. Patient does have history of COPD as well as history of CHF and history of prior AR. Patient with prior history of pericardial effusion. [facility] Medical History (Updated 12/30/22 @ 21:[address] Giovanny Wallace, DO) Acute and chronic respiratory failure with hypoxia Alcohol abuse Angioedema Anxiety Atherosclerotic heart disease of [place] coronary artery without angina pectoris Bilateral pleural effusion Bronchiectasis, non-tuberculous Cachexia Congestive heart failure (CHF) Contusion of right lower leg, initial encounter COPD (chronic obstructive pulmonary disease) Edema of right lower extremity Elevated transaminase level Former smoker GERD (gastroesophageal reflux disease) History of acute heart failure History of non-ST elevation myocardial infarction (NSTEMI) (06/18/20) Hypothyroidism Iatrogenic pneumothorax (06/17/22) Iron deficiency anemia Laceration without foreign body, right lower leg, initial encounter Leg wound, right Myocardial infarct Non-healing ulcer of ankle with fat layer exposed Oropharyngeal dysphagia Pericardial effusion Pneumothorax Recurrent pleural effusion Restrictive pericarditis Secondary pulmonary arterial hypertension Sepsis due to Streptococcus pneumoniae with acute hypoxic respiratory failure and septic shock Severe malnutrition Syncope (06/17/22) Ulcer of right lower extremity with fat layer exposed Home Medications albuterol sulfate 90 mcg/actuation aerosol inhaler 2 puff inhalation Q4H PRN PRN Bronchodialation 09/07/16 [History Last Taken 06/17/22] omeprazole 20 mg capsule,delayed release 40 mg PO DAILY GERD 09/07/16 [History Last Taken 06/17/22] ascorbic acid (vitamin C) 500 mg chewable tablet 500 mg PO BIDCM supplement ##0 06/20/20 [Rx Last Taken 06/16/22] budesonide 180 mcg/actuation breath activated powder inhaler 1 inh inhalation BID COPD 02/11/21 [History Last Taken 06/17/22] montelukast 10 mg tablet 10 mg PO DAILY Breathing 02/11/21 [History Last Taken 06/16/22] vitamin B complex (B Complex-Vitamin B12 tablet) 1 tab PO DAILY Supplement 02/11/21 [History Last Taken 06/17/22] colchicine 0.6 mg tablet 0.6 mg PO DAILY gout #30 tabs 01/14/22 [Rx Last Taken 06/16/22] levothyroxine 88 mcg tablet 88 mcg PO MOTUWETHFRSA Thyroid 01/20/22 [History Last Taken 06/17/22] acetaminophen 500 mg tablet 1,000 mg PO Q6H PRN Pain 06/17/22 [History Last Taken 06/16/22] levothyroxine 88 mcg tablet 132 mcg PO GEORGES Thyroid 06/17/22 [History Last Taken 06/14/22] multivitamin 1 tab PO DAILY supplement 07/08/22 [History Last Taken Unknown] bumetanide 1 mg tablet 1 mg PO DAILY water pill #90 tabs 09/21/22 [Rx Last Taken Unknown] amiodarone 200 mg tablet 200 mg PO DAILY Heart Rhythm 12/20/22 [History Last Taken Unknown] aspirin 81 mg tablet,delayed release 81 mg PO DAILY Heart health 12/20/22 [History Last Taken Unknown] atorvastatin 40 mg tablet 40 mg PO QHS Cholestrol 12/20/22 [History Last Taken Unknown] ipratropium 20 mcg-albuterol 100 mcg/actuation mist for inhalation 1 puff inhalation Q4H Breathing 12/20/22 [History Last Taken Unknown] alendronate 70 mg tablet 1 tablet PO QWEEK Bone health 30 days #0 tabs 12/30/22 [Rx Last Taken 11/05/22 06:00] apixaban 5 mg tablet (Eliquis) 5 mg feeding tube BID Blood thinner afib 30 days #0 tabs 12/30/22 [Rx Last Taken Unknown] arginine 7 gram-glutam 7 gram-CaHMB 1.5 [id number]-[id number]-min oral pwd pkt (John (with collagen)) 1 packet G-tube BIDCM #0 ea 12/30/22 [Rx Last Taken Unknown] guaifenesin 100 mg/5 mL oral liquid 200 mg (10 mL) G-tube Q6 #0 mL 12/30/22 [Rx Last Taken Unknown] lactose-reduced food with fiber 0.06 gram-1.5 kcal/mL oral liquid (Jevity 1.5 Supa) 180 ml G-tube 0600,1000,1400,2000,2200 #0 mL 12/30/22 [Rx Last Taken Unknown] lorazepam 0.5 mg tablet 0.5 mg PO BID PRN PRN Anxiety 3 days #6 tabs 12/30/22 [Rx Last Taken 06/17/22] metoprolol tartrate 25 mg tablet 12.5 mg PO BID Blood pressure #30 tabs 12/30/22 [Rx Last Taken Unknown] polysaccharide iron complex 150 mg iron capsule (Ferrex) 150 mg PO DAILYCM #0 caps 12/30/22 [Rx Last Taken Unknown] potassium chloride 10 mEq tablet,extended release 20 meq PO DAILY Supplement 30 days #0 tabs 12/30/22 [Rx Last Taken 06/17/22] Allergy/AdvReac Type Severity Reaction Status Date / Time amoxicillin [From Augmentin] Allergy Rash Verified 11/19/22 18:15 clavulanic acid Allergy Rash Verified 11/19/22 18:15 [From Augmentin] doxycycline Allergy Rash Verified 11/19/22 18:15 tiotropium AdvReac Unknown PT UNSURE Verified 11/19/22 18:15 OF REACTION budesonide [From Symbicort] AdvReac high Verified 11/19/22 18:15 feeling bumetanide AdvReac PT UNSURE Verified 11/19/22 18:15 OF REACTION cefdinir AdvReac Bleeding Verified 11/19/22 18:15 clindamycin AdvReac Abd Verified 11/19/22 18:15 cramps/diarrhea fluticasone [From Flonase] AdvReac HEADACHES Verified 11/19/22 18:15 formoterol [From Symbicort] AdvReac HIGH Verified 11/19/22 18:15 FEELING furosemide AdvReac NEEDS Verified 11/19/22 13:12 FOLLOW-UP spironolactone AdvReac NEEDS Verified 11/19/22 13:12 FOLLOW-UP umeclidinium AdvReac Shortness Verified 11/19/22 13:12 of breath Family History Mother Colon cancer Father Heart disease Surgical History History of coronary artery stent placement (06/18/20) History of right and left heart catheterization (05/01/20) History of thoracentesis (06/17/22) Social History Smoking Status: Former smoker alcohol intake: current alcohol intake frequency: holidays/special occasions only substance use type: does not use caffeine: Yes Type: coffee Number of servings: 1 ROS ROS ED Review of Systems ROS Unobtainable: other Constitutional Constitutional ED: Reports lethargy; Denies chills, fever(s), sweats or weight loss Eyes Eyes: Denies blurry vision, change in vision or diplopia ENT ENT ED: Denies rhinorrhea or sore throat Cardiovascular Cardiovascular: Denies chest pain, orthopnea or racing heartbeat Respiratory/Chest Respiratory/Chest: Reports dyspnea and dyspnea on exertion; Denies cough, orthopnea or sputum Gastrointestinal Gastrointestinal: Denies abdominal pain, diarrhea, nausea or vomiting Genitourinary Genitourinary ED: Denies dysuria, hematuria or urinary frequency Musculoskeletal Musculoskeletal: Denies arthralgias, back pain, myalgias or neck pain Integumentary Denies abscess, Abrasions or rash Neurologic Neurologic: Denies headache(s) or weakness Psychiatric Psychiatric: Denies anxiety, depression or suicidal thoughts Endocrine Endocrinology: Denies polydipsia, polyphagia or polyuria Hematologic/Lymphatic Hematologic/Lymphatic: Denies easy bleeding, easy bruising or lymphadenopathy Allergic/Immunologic Allergic/Immunologic ED: Denies mouth swelling, tongue swelling or urticaria EXAM Physical Exam Const Vital Signs: 12/30/22 18:47 12/30/22 18:52 12/30/22 18:51 Temperature 98.9 F 98.9 F Temperature Source Temporal Temporal Pulse Rate 114 H 115 H 114 H Respiratory Rate 26 H 33 H 34 H Respiratory Effort Respiratory Pattern Blood Pressure 102/67 102/67 Blood Pressure Mean 78 78 Pulse Ox 92 95 98 Oxygen Delivery Method Nasal Cannula Non-Rebreather Non-Rebreather Oxygen Flow Rate (L/min) 6 Fraction of Inspired Oxygen (FIO2) 12/30/22 18:54 12/30/22 19:16 12/30/22 19:50 Temperature 98.7 F 98.5 F Temperature Source Temporal Temporal Pulse Rate 107 H 106 H Respiratory Rate 28 H 24 H Respiratory Effort Short of Breath Respiratory Pattern Blood Pressure 96/65 93/63 Blood Pressure Mean 75 73 Pulse Ox 95 96 Oxygen Delivery Method Non-Rebreather High Flow Bi-pap Oxygen Flow Rate (L/min) 10 Fraction of Inspired Oxygen (FIO2) 12/30/22 19:33 12/30/22 19:49 12/30/22 21:02 Temperature 97.9 F Temperature Source Temporal Pulse Rate 111 H 105 H 95 Respiratory Rate 30 H 26 H 24 H Respiratory Effort Respiratory Pattern Tachypnea Tachypnea Blood Pressure 96/70 Blood Pressure Mean 78 Pulse Ox 96 100 Oxygen Delivery Method Bi-pap Oxygen Flow Rate (L/min) Fraction of Inspired Oxygen (FIO2) 80 Positive well nourished and well developed General Appearance ED: well developed and NAD HEENT Reports TM's clear and moist mucous membranes normocephalic and atraumatic; Negative for trauma or tenderness Tympanic Membrane ED: Yes TM's clear Eyes PERRL and EOMs intact bilaterally General Eye ED: Negative for pale conjunctiva or scleral icterus Neck no lymphadenopathy, supple and no JVD General: Negative for tenderness Chest Wall inspection of chest normal and palpation of chest normal Chest: Negative for tenderness Resp clear to auscultation bilaterally Resp Narrative: Decreased breath sounds bilaterally. On my evaluation the patient patient had already been placed on AVAPS. She has been expiratory wheezes bilaterally. She is tachypneic. Mild accessory muscle use. Effort and Inspection: Negative for respiratory distress or pain with movement Auscultation: Negative for rhonchi, wheezes or diminished lung sounds Cardio regular rate, regular rhythm, S1 normal heart sound, S2 normal heart sound and no murmurs Peripheral Pulses: pulses 2+ throughout GI normal to inspection, nondistended, normoactive bowel sounds, soft to palpation, non-tender, non-distended and no masses Back/Spine no CVA tenderness and no thoracic nor lumbar tenderness Extremity normal to inspection Extremity Narrative: +2 edema both lower extremities. General Extremety ED: Negative for edema General Extremity: Negative for edema Neuro oriented x3, CN's II-XII intact bilaterally, no sensory deficits noted and gait normal Sensorium / Orientation: awake, alert, oriented to person, oriented to place and oriented to time Motor Exam: strength 5/5 throughout and strength abnormal Psych mental status grossly normal Skin no rashes or lesions noted and no wounds MDM MDM MDM Narrative Medical decision making narrative: Patient presents via EMS from assisted living facility with respiratory failure. She was just discharged from the hospital today. Patient was placed on BiPAP on arrival. She has history of chronic respiratory failure. EKG obtained arrival shows sinus rhythm with a ventricular rate of 102 bpm with no acute ST segment changes. CBC with differential showed an elevated white count of 18.1 and thrombocytosis of 823. Chemistries unremarkable. Troponin was normal. Lactate normal at 0.8. Chest x-ray obtained showed bilateral pleural effusions. On arrival she was given DuoNeb aerosol. Patient also given Bumex 1 mg IV. BNP obtained was normal at 90. Lab Data Attestation: I reviewed the patient's lab results. Labs: Laboratory Results - last 24 hr 12/30/22 12/30/22 12/30/22 18:58 18:58 18:58 WBC 18.1 H RBC 3.39 L Hgb 8.3 L Hct 29.0 L MCV 85.5 MCH 24.5 L MCHC 28.6 L RDW Std Deviation 76.1 H RDW Coeff of Angie 25.2 H Plt Count 823 H* MPV 10.5 Immature Gran % (Auto) 0.700 Neut % (Auto) 87.7 H Lymph % (Auto) 3.3 L [place] % (Auto) 7.6 Eos % (Auto) 0.3 Baso % (Auto) 0.4 Absolute Neuts (auto) 15.9 H Absolute Lymphs (auto) 0.59 L Nucleated RBC % 0 Differential Comment SCANNED Diff Path Review May foll Platelet Estimate MKD INC Hypochromasia 2+ Anisocytosis 2+ Target Cells 1+ Sodium 139 Potassium 4.1 Chloride 95 L Carbon Dioxide 39.0 H Anion Gap 5 BUN 28 H Creatinine 0.33 L Estim Creat Clear Calc 126.37 Est GFR (MDRD) Af Amer 258 Est GFR (MDRD) Non-Af 213 BUN/Creatinine Ratio 85.1 H Glucose 96 Lactic Acid 0.8 Calcium 8.2 L Troponin I High Sens 5 B-Natriuretic Peptide 12/30/22 18:58 WBC RBC Hgb Hct MCV MCH MCHC RDW Std Deviation RDW Coeff of Angie Plt Count MPV Immature Gran % (Auto) Neut % (Auto) Lymph % (Auto) Sterling % (Auto) Eos % (Auto) Baso % (Auto) Absolute Neuts (auto) Absolute Lymphs (auto) Nucleated RBC % Differential Comment Diff Path Review Platelet Estimate Hypochromasia Anisocytosis Target Cells Sodium Potassium Chloride Carbon Dioxide Anion Gap BUN Creatinine Estim Creat Clear Calc Est GFR (MDRD) Af Amer Est GFR (MDRD) Non-Af BUN/Creatinine Ratio Glucose Lactic Acid Calcium Troponin I High Sens B-Natriuretic Peptide 90.0 Radiography Diagnostic Testing: Clinical Impression(s) from Imaging Studies Chest X-Ray 12/30/22 19:50 IMPRESSION: Bilateral pleural effusions. Basilar infiltrates cannot be excluded. Electronically Signed: Goran Restrepo DO at 20:14 EDT , 1 view chest x-ray obtained interpreted by myself as bilateral pleural effusions with some mild cardiomegaly. Patient x-ray unchanged from prior on my interpretation. Radiology in agreement with bilateral pleural effusions and basilar infiltrates cannot be excluded. EKG Initial EKG: Attestation: I personally reviewed and interpreted this EKG as follows: Comments: Sinus tachycardia with a rate of 102 bpm with no acute ST segment changes. Critical Care Time Critical care time (excluding procedures): 30-74 minutes, Discussing w/Patient &/or Family/[employer], Discussing w/Consultants, Arranging Admission or Transfer, Performing Direct Patient Care at Bedside and - (30 minutes) Discharge Plan Triage Chief Complaint: Shortness of Breath ED Provider: Giovanny Wallace Dx/Rx/DC Orders Clinical Impression: Dyspnea, Respiratory failure, Pleural effusion, History of COPD, History of chronic CHF Prescriptions: No Action levothyroxine 88 mcg tablet 88 mcg PO MOTUWETHFRSA Rx Instructions: one and one half tablet wednesday montelukast 10 mg tablet 10 mg PO DAILY vitamin B complex [B Complex-Vitamin B12] Tablet 1 tab PO DAILY omeprazole 20 MG capsule 40 mg PO DAILY Label Comments: ACID REFLUX albuterol sulfate 1 INHALER inhaler 2 puff INHALATION Q4H PRN PRN (Reason: Bronchodialation) Label Comments: SHORTNESS OF BREATH multivitamin Tablet 1 tab PO DAILY Label Comments: SUPPLEMENT ascorbic acid (vitamin C) 500 MG tablet,chewable 500 mg PO BIDCM Qty: 0 0RF Rx Instructions: Take with iron budesonide 180 mcg/actuation aerosol powdr breath activated 1 inh INHALATION BID levothyroxine 88 mcg tablet 132 mcg PO GEORGES Label Comments: TAKE 1 TABLET BY MOUTH ONCE DAILY EXCEPT WEDNESDAY TAKE 1&1/2 TABLET ON AN EMPTY STOMACH acetaminophen 500 mg Tablet 1,000 mg PO Q6H PRN (Reason: Pain) atorvastatin 40 mg tablet 40 mg PO QHS amiodarone 200 mg tablet 200 mg PO DAILY aspirin 81 mg tablet,delayed release (DR/EC) 81 mg PO DAILY ipratropium-albuterol 20-100 mcg/actuation mist 1 puff inhalation Q4H guaifenesin 100 mg/5 mL Liquid 200 mg G-tube Q6 Qty: 0 0RF polysaccharide iron complex [Ferrex 150] 150 mg iron Capsule 150 mg PO DAILYCM Qty: 0 0RF Jevity 1.5 Supa 0.06 gram-1.5 kcal/mL Liquid 180 ml G-tube 0600,1000,1400,2000,2200 Qty: 0 0RF John (with collagen) 7-7-1.5 gram Powder In Packet 1 packet G-tube BIDCM Qty: 0 0RF alendronate 70 mg tablet 1 tablet PO QWEEK 30 Days Qty: 0 0RF potassium chloride 10 mEq tablet extended release 20 meq PO DAILY 30 Days Qty: 0 0RF lorazepam 0.5 MG tablet 0.5 mg PO BID PRN PRN (Reason: Anxiety) 3 Days Qty: 6 0RF Label Comments: Anxiety metoprolol tartrate 25 mg tablet 12.5 mg PO BID Qty: 30 0RF Rx Instructions: Hold for heart rate <60 or SBP <100 Eliquis 5 mg tablet 5 mg feeding tube BID 30 Days Qty: 0 0RF colchicine 0.6 mg tablet 0.6 mg PO DAILY Qty: 30 11RF bumetanide 1 mg tablet 1 mg PO DAILY Qty: 90 3RF Primary Care Provider: Atul Garcia Referrals: Atul Garcia MD [Primary Care Provider] - Disposition Disposition: Acute Care Hospital [facility]
[2022-12-30] MEDS: Ipratropium/Albuterol Sulfate 3 ML AMPUL.NEB INHALATION (19:49)
--- NOTE | 2022-12-30 19:50 | RAD_ITS ---
INDICATION: dyspnea EXAMINATION/TECHNIQUE: X-RAY - XR Chest 1 View COMPARISON: December 28, 2022 FINDINGS: LINES/DEVICES: None. LUNGS: Bilateral pleural effusions. Basilar infiltrates cannot be excluded. No pneumothorax. MEDIASTINUM AND CARDIOVASCULAR STRUCTURES: Cardiac silhouette not enlarged. Central airways and mediastinal contour are unremarkable. BONES AND SOFT TISSUES: Unremarkable. RAD/Chest 1 View (Portable) IMPRESSION: Bilateral pleural effusions. Basilar infiltrates cannot be excluded. Electronically Signed: Goran Restrepo DO at 20:14 EDT ,
[2022-12-30 20:02] LABS: Absolute Lymphocyte Count 0.59 X10^3/uL (0.83-4.51); Absolute Neutrophil Count 15.9 X10^3/uL (2.0-7.7); Basophil# 0.08 X10^3/uL; Basophil% 0.4 % (0-1); Eosinophil# 0.05 X10^3/uL; Eosinophils% 0.3 % (0-5); Hemoglobin 8.3 g/dL (12.0-15.0); Lymphocyte # 0.59 X10^3/ul (0.83-4.51); Lymphocyte % 3.3 % (19-41); Mean Corp Hgb Conc 28.6 g/dL (32-36); Mean Corpuscular Hgb 24.5 pg (27.0-32.0); Mean Corpuscular Volume 85.5 fL (81-99); Mean Platelet Vol. 10.5 fl (6.2-12.0); Monocyte# 1.37 X10^3/uL; Monocyte% 7.6 % (0-10); NRBC Flagged by Analyzer 0 % (0-5); Neutrophil # 15.85 X10^3/uL (2.7-7.7); Neutrophil % 87.7 % (47-70); POSITIVE COUNT YES; POSITIVE DIFFERENTIAL YES; POSITIVE MORPHOLOGY YES; RBC Distribution Width CV 25.2 % (11.6-14.6); RBC Distribution Width SD 76.1 fl (35.1-43.9); Red Blood Count 3.39 M/mm3 (4.2-5.4); White Blood Count 18.1 K/mm3 (4.4-11.0)
[2022-12-30 20:04] LABS: Differential Indicated SCAN CRITERIA MET; Platelet Count 823 K/mm3 (150-450)
[2022-12-30 20:22] LABS: Anion Gap 5 (5-15); BUN 28 mg/dL (7-18); BUN/Creat Ratio 85.1 RATIO (10-20); Calcium,Total 8.2 mg/dL (8.5-10.1); Chloride 95 mmol/L (98-107); Creatinine, Serum 0.33 mg/dL (0.55-1.02); EST Glomerular Filtration Rate 213 mL/min (>60); Est Glom Filt Rate - Afr Amer 258 mL/min (>60); Estimated Creatinine Clearance 126.37 ml/min; Glucose 96 mg/dL (74-106); Potassium 4.1 mmol/L (3.5-5.1); Sodium Level 139 mmol/L (136-145); Troponin-I HS 5 pg/mL (3.0-54.0)
[2022-12-30 20:28] LABS: Differential Comment SCANNED; Platelet Estimate MKD INC (ADEQ)
[2022-12-30 20:29] LABS: Anisocytosis 2+; Hypochromasia 2+; Target Cells 1+
[2022-12-30 20:35] LABS: Lactic Acid 0.8 mmol/L (0.4-1.9)
[2022-12-30] MEDS: Bumetanide 1 MG/4 ML Vial IV (21:12)
--- NOTE | 2022-12-30 21:14 | HP.PCM.HOS_ITS ---
HPI - General General Date of Admission: 12/30/22 Date of Service: 12/30/22 Chief Complaint: Shortness of breath HPI Narrative LOUISE ROSALES, is a 67 F with a significant history of congestive heart failure; pericardial effusion; NE; COPD who was discharged from the hospital returning same day with shortness of breath that re-occurred about an hour and half prior to presentation. FOR[facility]LY [facility] Medical History Acute and chronic respiratory failure with hypoxia Alcohol abuse Angioedema Anxiety Atherosclerotic heart disease of [place] coronary artery without angina pectoris Bilateral pleural effusion Bronchiectasis, non-tuberculous Cachexia Congestive heart failure (CHF) Contusion of right lower leg, initial encounter COPD (chronic obstructive pulmonary disease) Edema of right lower extremity Elevated transaminase level Former smoker GERD (gastroesophageal reflux disease) History of acute heart failure History of non-ST elevation myocardial infarction (NSTEMI) (06/18/20) Hypothyroidism Iatrogenic pneumothorax (06/17/22) Iron deficiency anemia Laceration without foreign body, right lower leg, initial encounter Leg wound, right Myocardial infarct Non-healing ulcer of ankle with fat layer exposed Oropharyngeal dysphagia Pericardial effusion Pneumothorax Recurrent pleural effusion Restrictive pericarditis Secondary pulmonary arterial hypertension Sepsis due to Streptococcus pneumoniae with acute hypoxic respiratory failure and septic shock Severe malnutrition Syncope (06/17/22) Ulcer of right lower extremity with fat layer exposed Home Medications albuterol sulfate 90 mcg/actuation aerosol inhaler 2 puff inhalation Q4H PRN PRN Bronchodialation 09/07/16 [History Last Taken 06/17/22] omeprazole 20 mg capsule,delayed release 40 mg PO DAILY GERD 09/07/16 [History Last Taken 06/17/22] ascorbic acid (vitamin C) 500 mg chewable tablet 500 mg PO BIDCM supplement ##0 06/20/20 [Rx Last Taken 06/16/22] budesonide 180 mcg/actuation breath activated powder inhaler 1 inh inhalation BID COPD 02/11/21 [History Last Taken 06/17/22] montelukast 10 mg tablet 10 mg PO DAILY Breathing 02/11/21 [History Last Taken 06/16/22] vitamin B complex (B Complex-Vitamin B12 tablet) 1 tab PO DAILY Supplement 02/11/21 [History Last Taken 06/17/22] colchicine 0.6 mg tablet 0.6 mg PO DAILY gout #30 tabs 01/14/22 [Rx Last Taken 06/16/22] levothyroxine 88 mcg tablet 88 mcg PO MOTUWETHFRSA Thyroid 01/20/22 [History Last Taken 06/17/22] acetaminophen 500 mg tablet 1,000 mg PO Q6H PRN Pain 06/17/22 [History Last Taken 06/16/22] multivitamin 1 tab PO DAILY supplement 07/08/22 [History Last Taken Unknown] bumetanide 1 mg tablet 1 mg PO DAILY water pill #90 tabs 09/21/22 [Rx Last Taken Unknown] amiodarone 200 mg tablet 200 mg PO DAILY Heart Rhythm 12/20/22 [History Last Taken Unknown] aspirin 81 mg tablet,delayed release 81 mg PO DAILY Heart health 12/20/22 [History Last Taken Unknown] atorvastatin 40 mg tablet 40 mg PO QHS Cholestrol 12/20/22 [History Last Taken Unknown] ipratropium 20 mcg-albuterol 100 mcg/actuation mist for inhalation 1 puff inhalation Q4H Breathing 12/20/22 [History Last Taken Unknown] alendronate 70 mg tablet 1 tablet PO QWEEK Bone health 30 days #0 tabs 12/30/22 [Rx Last Taken 11/05/22 06:00] apixaban 5 mg tablet (Eliquis) 5 mg feeding tube BID Blood thinner afib 30 days #0 tabs 12/30/22 [Rx Last Taken Unknown] arginine 7 gram-glutam 7 gram-CaHMB 1.5 [id number] oral pwd pkt (John (with collagen)) 1 packet G-tube BIDCM Check with primary doctor 12/30/22 [History Last Taken Unknown] arginine 7 gram-glutam 7 gram-CaHMB 1.5 [id number]-min oral pwd pkt (John (with collagen)) 1 packet PO BID Check with primary doctor 12/30/22 [History Last Taken Unknown] guaifenesin 100 mg/5 mL oral liquid 200 mg G-tube Q6 Check with primary doctor 12/30/22 [History Last Taken Unknown] lactose-reduced food with fiber 0.06 gram-1.5 kcal/mL oral liquid (Jevity 1.5 Supa) 180 ml G-tube 0600,1000,1400,2000,2200 Check with primary doctor 12/30/22 [History Last Taken Unknown] lorazepam 0.5 mg tablet 0.5 mg PO BID PRN PRN Anxiety 3 days #6 tabs 12/30/22 [Rx Last Taken 06/17/22] metoprolol tartrate 25 mg tablet 12.5 mg PO BID Blood pressure #30 tabs 12/30/22 [Rx Last Taken Unknown] polysaccharide iron complex 150 mg iron capsule (Ferrex) 150 mg PO DAILYCM Check with primary doctor 12/30/22 [History Last Taken Unknown] potassium chloride 10 mEq tablet,extended release 20 meq PO DAILY Supplement 30 days #0 tabs 12/30/22 [Rx Last Taken 06/17/22] Allergy/AdvReac Type Severity Reaction Status Date / Time amoxicillin [From Augmentin] Allergy Rash Verified 11/19/22 18:15 clavulanic acid Allergy Rash Verified 11/19/22 18:15 [From Augmentin] doxycycline Allergy Rash Verified 11/19/22 18:15 tiotropium AdvReac Unknown PT UNSURE Verified 11/19/22 18:15 OF REACTION budesonide [From Symbicort] AdvReac high Verified 11/19/22 18:15 feeling bumetanide AdvReac PT UNSURE Verified 11/19/22 18:15 OF REACTION cefdinir AdvReac Bleeding Verified 11/19/22 18:15 clindamycin AdvReac Abd Verified 11/19/22 18:15 cramps/diarrhea fluticasone [From Flonase] AdvReac HEADACHES Verified 11/19/22 18:15 formoterol [From Symbicort] AdvReac HIGH Verified 11/19/22 18:15 FEELING furosemide AdvReac NEEDS Verified 11/19/22 13:12 FOLLOW-UP spironolactone AdvReac NEEDS Verified 11/19/22 13:12 FOLLOW-UP umeclidinium AdvReac Shortness Verified 11/19/22 13:12 of breath Family History Mother Colon cancer Father Heart disease Surgical History History of coronary artery stent placement (06/18/20) History of right and left heart catheterization (05/01/20) History of thoracentesis (06/17/22) Social History Smoking Status: Former smoker alcohol intake: current alcohol intake frequency: holidays/special occasions only substance use type: does not use caffeine: Yes Type: coffee Number of servings: 1 ROS ROS Narrative Pertinent positives and pertinent negatives as noted in HPI. All other systems were reviewed and are negative Vital Signs Vital Signs Vital Signs: 12/30/22 18:47 12/30/22 18:52 12/30/22 18:51 Temperature 98.9 F 98.9 F Temperature Source Temporal Temporal Pulse Rate 114 H 115 H 114 H Respiratory Rate 26 H 33 H 34 H Respiratory Effort Respiratory Pattern Blood Pressure 102/67 102/67 Blood Pressure Mean 78 78 Pulse Ox 92 95 98 Oxygen Delivery Method Nasal Cannula Non-Rebreather Non-Rebreather Oxygen Flow Rate (L/min) 6 Fraction of Inspired Oxygen (FIO2) 12/30/22 18:54 12/30/22 19:16 12/30/22 19:50 Temperature 98.7 F 98.5 F Temperature Source Temporal Temporal Pulse Rate 107 H 106 H Respiratory Rate 28 H 24 H Respiratory Effort Short of Breath Respiratory Pattern Blood Pressure 96/65 93/63 Blood Pressure Mean 75 73 Pulse Ox 95 96 Oxygen Delivery Method Non-Rebreather High Flow Bi-pap Oxygen Flow Rate (L/min) 10 Fraction of Inspired Oxygen (FIO2) 12/30/22 19:33 12/30/22 19:49 12/30/22 21:02 Temperature 97.9 F Temperature Source Temporal Pulse Rate 111 H 105 H 95 Respiratory Rate 30 H 26 H 24 H Respiratory Effort Respiratory Pattern Tachypnea Tachypnea Blood Pressure 96/70 Blood Pressure Mean 78 Pulse Ox 96 100 Oxygen Delivery Method Bi-pap Oxygen Flow Rate (L/min) Fraction of Inspired Oxygen (FIO2) 80 Weight Weight: 47.1 kg Body Mass Index (BMI) 21.7 Physical Exam Narrative Physical exam: General: Well-nourished, well-developed. Head: Normocephalic, atraumatic, no tenderness Eyes: Vision is grossly intact. EOMI ENT, no trauma, moist mucous membranes, no rhinorrhea Neck: Nontender, No thyromegaly. CVS: Regular rate and rhythm. S1-S2 present. No murmur, gallop or rub. Respiratory : On AVAPS; diminished breath sounds. Abdomen: Soft, nontender, nondistended, normal bowel sounds, no masses : Deferred Back: Nontender, no CVA tenderness, no midline spinal tenderness, deformities, step-offs Extremities: Cachectic. 3-4+ pitting edema from hip to foot; bilateral with right worse than left. Skin: Sacral decubitus wound with fluffy white tissue at the top. Normal color Neuro: Alert, oriented, cranial nerves II through XII grossly intact. Psychiatry: Normal mood. Normal affect. Not depressed. Not anxious. Results Lab / Micro Data Result Diagrams: 12/30/22 18:58 12/30/22 18:58 Labs: Laboratory Results - last 24 hr 12/30/22 18:58: WBC 18.1 H, RBC 3.39 L, Hgb 8.3 L, Hct 29.0 L, MCV 85.5, MCH 24.5 L, MCHC 28.6 L, RDW Std Deviation 76.1 H, RDW Coeff of Angie 25.2 H, Plt Count 823 H*, MPV 10.5, Immature Gran % (Auto) 0.700, Neut % (Auto) 87.7 H, Lymph % (Auto) 3.3 L, Lamar % (Auto) 7.6, Eos % (Auto) 0.3, Baso % (Auto) 0.4, Absolute Neuts (auto) 15.9 H, Absolute Lymphs (auto) 0.59 L, Nucleated RBC % 0, Differential Comment SCANNED, Diff Path Review December, Platelet Estimate MKD INC, Hypochromasia 2+, Anisocytosis 2+, Target Cells 1+ 12/30/22 18:58: Sodium 139, Potassium 4.1, Chloride 95 L, Carbon Dioxide 39.0 H, Anion Gap 5, BUN 28 H, Creatinine 0.33 L, Estim Creat Clear Calc 126.37, Est GFR (MDRD) Af Amer 258, Est GFR (MDRD) Non-Af 213, BUN/Creatinine Ratio 85.1 H, Glucose 96, Calcium 8.2 L, Troponin I High Sens 5 12/30/22 18:58: Lactic Acid 0.8 12/30/22 18:58: B-Natriuretic Peptide 90.0 Radiology Impression Chest X-Ray 12/30/22 19:50 IMPRESSION: Bilateral pleural effusions. Basilar infiltrates cannot be excluded. Electronically Signed: Goran Restrepo DO at 20:14 EDT , Assessment & Plan Assessment/Plan (1) Heart failure with preserved ejection fraction: (2) Flash pulmonary edema: (3) Decubitus ulcer: PLAN: Plan Acute on heart failure with preserved ejection fraction/flash pulm edema Placed on AVAPS at the emergency department and continued. Check ABG. Place on monitored bed on progressive care unit Impression of chest x-ray by radiology: Bilateral pleural effusions. Basilar infiltrates cannot be excluded. Independent interpretation of chest x-ray by hospitalist: Chest x-ray was indep endently interpreted and I agree with radiology interpretation. On recent presentation patient completed a course of antibiotics. Ordered procalcitonin returned negative. We will hold off antibiotics at this time. Weight on admission to the floor; and then daily Strict I&O's Emergency department labs reviewed showed BNP of 90. Bumex IV push ordered. Echocardiogram on 11/23/22: Estimated ejection fraction of 70%. Unable to assess diastolic dysfunction per report. Pulmonary artery systolic pressure 55 to 60 mmHg. Monitor electrolytes and renal function Trend blood pressure Kerlix roll and to bilateral lower extremities Fluid restriction of 1500 mls daily N.p.o. Leukocytosis Presentation white count was 18,100. And white count earlier in the same day was 12,200. Trend. Acute on chronic thrombocytosis Likely reactive, trend. Chronic anemia Stable Trend. Dysphagia/severe protein calorie malnutrition With tube feeding. Dietitian consult for recommendation. Stage III decubitus ulcer Apply wet-to-dry dressing. Wound care consult. DVT prophylaxis/history of PE On Eliquis. Switch to heparin drip while n.p.o. and while patient is surgical candidate for interventions secondary to pleural effusions. Charges/Coding Visit Charges Inpatient E&M: 95401 Init Hosp L3
--- NOTE | 2022-12-30 21:37 | NURSING ---
PCU AGYEPONG RESP FAILURE, COPD EXC, HX OF CHF, PLEURAL EFFUSIONS
[2022-12-30 22:10] LABS: International Normalized Ratio 1.1; Prothrombin Time (Protime)PT. 14.7 SECONDS (11.7-14.9)
--- NOTE | 2022-12-30 22:33 | CPS ---
o2 decreased to 55%
--- NOTE | 2022-12-30 23:13 | CPS ---
decreased to 45%
[2022-12-30 23:51] LABS: Procalcitonin 0.13 ng/mL (0.00-0.09)
[2022-12-31] VITALS (18 sets, daily range): BP systolic 86–107; BP diastolic 56–71; PULSE 88–101; RESP 12–32; TEMP 36.5–36.9; O2SAT 91–100
[2022-12-31] MEDS: HEPARIN/D5w 25,000 UNITS 25,000 UNITS/250 ML IV.SOLN. 7 UNITS CONT INF (00:13)
[2022-12-31 00:30] LABS: Partial Thromboplast Time 30.7 Seconds (24.1-36.2)
[2022-12-31] MEDS: Heparin Injection (Vial) 5,000 UNIT/ML VIAL 3500 UNIT IV (01:11)
[2022-12-31] MEDS: LORazepam 0.5 MG Tablet PO (01:17)
[2022-12-31 06:48] LABS: Absolute Lymphocyte Count 0.36 X10^3/uL (0.83-4.51); Absolute Neutrophil Count 11.5 X10^3/uL (2.0-7.7); Basophil# 0.09 X10^3/uL; Basophil% 0.7 % (0-1); Eosinophil# 0.02 X10^3/uL; Eosinophils% 0.2 % (0-5); Hematocrit 26.7 % (37-47); Hemoglobin 7.9 g/dL (12.0-15.0); Lymphocyte # 0.36 X10^3/ul (0.83-4.51); Lymphocyte % 2.8 % (19-41); Mean Corp Hgb Conc 29.6 g/dL (32-36); Mean Corpuscular Hgb 25.3 pg (27.0-32.0); Mean Corpuscular Volume 85.6 fL (81-99); Mean Platelet Vol. 9.4 fl (6.2-12.0); Monocyte# 0.98 X10^3/uL; Monocyte% 7.5 % (0-10); NRBC Flagged by Analyzer 0 % (0-5); Neutrophil # 11.45 X10^3/uL (2.7-7.7); POSITIVE DIFFERENTIAL YES; POSITIVE MORPHOLOGY YES; Platelet Count 687 K/mm3 (150-450); RBC Distribution Width CV 24.7 % (11.6-14.6); RBC Distribution Width SD 76.3 fl (35.1-43.9); Red Blood Count 3.12 M/mm3 (4.2-5.4)
[2022-12-31 06:59] LABS: Differential Indicated SCAN CRITERIA MET
[2022-12-31 07:29] LABS: Anisocytosis 1+; Differential Comment SCANNED
[2022-12-31 07:30] LABS: Macrocytosis 1+; Partial Thromboplast Time 122.8 Seconds (24.1-36.2); Platelet Estimate SLT INC (ADEQ)
[2022-12-31 07:32] LABS: Anion Gap 3 (5-15); BUN 23 mg/dL (7-18); BUN/Creat Ratio 65.5 RATIO (10-20); Calcium,Total 8.2 mg/dL (8.5-10.1); Chloride 95 mmol/L (98-107); Creatinine, Serum 0.35 mg/dL (0.55-1.02); EST Glomerular Filtration Rate 198 mL/min (>60); Est Glom Filt Rate - Afr Amer 239 mL/min (>60); Estimated Creatinine Clearance 119.15 ml/min; Glucose 96 mg/dL (74-106); Potassium 3.3 mmol/L (3.5-5.1); Sodium Level 139 mmol/L (136-145)
--- NOTE | 2022-12-31 08:51 | PCM.PN.HOSP ---
Reason for Visit Reason for Visit: Diagnoses Unspecified diastolic (congestive) heart failure (12/30/22) Acute pulmonary edema (12/30/22) Pressure ulcer of unspecified site, unspecified stage (12/30/22) Subjective Subjective On BiPAP, feeling anxious and requesting increased dose of Ativan. Objective Data Objective Data Vital Signs: Vital Signs Temp Pulse Resp BP Pulse Ox O2 Del Method O2 Flow Rate 98.1 F 91 28 H 91/68 93 Bi-pap 10 12/31/22 06:00 12/31/22 07:35 12/31/22 07:35 12/31/22 06:00 12/31/22 07:35 12/31/22 06:00 12/30/22 19:16 FiO2 75 12/31/22 07:35 Oxygen Flow Rate (L/min) 10 Oxygen Delivery Method Bi-pap Weight: 47.1 kg Body Mass Index (BMI) 21.7 Intake & Output: Intake and Output for Last 24 Hours 12/29/22 12/30/22 12/31/22 23:59 23:59 23:59 Intake Total 70.96 / 70.96 Balance 70.96 / 70.96 Lab / Micro Data Result Diagrams: 12/31/22 06:35 12/31/22 06:35 Labs: Laboratory Results - last 24 hr 12/30/22 18:58: WBC 18.1 H, RBC 3.39 L, Hgb 8.3 L, Hct 29.0 L, MCV 85.5, MCH 24.5 L, MCHC 28.6 L, RDW Std Deviation 76.1 H, RDW Coeff of Angie 25.2 H, Plt Count 823 H*, MPV 10.5, Immature Gran % (Auto) 0.700, Neut % (Auto) 87.7 H, Lymph % (Auto) 3.3 L, [place] % (Auto) 7.6, Eos % (Auto) 0.3, Baso % (Auto) 0.4, Absolute Neuts (auto) 15.9 H, Absolute Lymphs (auto) 0.59 L, Nucleated RBC % 0, Differential Comment SCANNED, Diff Path Review May , Platelet Estimate MKD INC, Hypochromasia 2+, Anisocytosis 2+, Target Cells 1+ 12/30/22 18:58: Sodium 139, Potassium 4.1, Chloride 95 L, Carbon Dioxide 39.0 H, Anion Gap 5, BUN 28 H, Creatinine 0.33 L, Estim Creat Clear Calc 126.37, Est GFR (MDRD) Af Amer 258, Est GFR (MDRD) Non-Af 213, BUN/Creatinine Ratio 85.1 H, Glucose 96, Calcium 8.2 L, Troponin I High Sens 5 12/30/22 18:58: Lactic Acid 0.8 12/30/22 18:58: B-Natriuretic Peptide 90.0 12/30/22 18:58: PT 14.7, INR 1.1 12/30/22 18:58: APTT 30.7 12/30/22 23:05: Procalcitonin 0.13 H 12/31/22 06:35: WBC 13.0 H, RBC 3.12 L, Hgb 7.9 L, Hct 26.7 L, MCV 85.6, MCH 25.3 L, MCHC 29.6 L, RDW Std Deviation 76.3 H, RDW Coeff of Angie 24.7 H, Plt Count 687 H, MPV 9.4, Immature Gran % (Auto) 0.800, Neut % (Auto) 88.0 H, Lymph % (Auto) 2.8 L, [place] % (Auto) 7.5, Eos % (Auto) 0.2, Baso % (Auto) 0.7, Absolute Neuts (auto) 11.5 H, Absolute Lymphs (auto) 0.36 L, Nucleated RBC % 0, Differential Comment SCANNED, Platelet Estimate SLT INC, Anisocytosis 1+, Macrocytosis 1+ 12/31/22 06:35: Sodium 139, Potassium 3.3 L, Chloride 95 L, Carbon Dioxide 41.0 H, Anion Gap 3 L, BUN 23 H, Creatinine 0.35 L, Estim Creat Clear Calc 119.15, Est GFR (MDRD) Af Amer 239, Est GFR (MDRD) Non-Af 198, BUN/Creatinine Ratio 65.5 H, Glucose 96, Calcium 8.2 L 12/31/22 06:35: APTT 122.8 H* Radiography Diagnostic Testing: Radiology Impression Chest X-Ray 12/30/22 19:50 IMPRESSION: Bilateral pleural effusions. Basilar infiltrates cannot be excluded. Electronically Signed: Gorna Restrepo DO at 20:14 EDT Reading Location ID and State: [facility] / [place] Tel [phone], Service support , Physical Exam Narrative General: Alert, oriented, no apparent distress HEENT: Atraumatic, normocephalic Eyes: Anicteric, normal conjunctiva, extraocular movements grossly intact Neck: Supple Respiratory: On BiPAP, diminished bilaterally Cardiovascular: Regular rate and rhythm GI: Soft, nontender, nondistended Extremities: Improving lower extremity edema Musculoskeletal: Moving all extremities Neuro: No overt focal neurological deficits Skin: No rashes appreciated Psych: Cooperative Assessment & Plan Assessment/Plan (1) Heart failure with preserved ejection fraction: (2) Flash pulmonary edema: (3) Decubitus ulcer: PLAN: Plan #Shortness of breath presumed to be secondary to Acute on chronic heart failure with preserved ejection fraction/flash pulm edema -Discharged earlier the same day of presentation after admission for acute on chronic hypoxic respiratory failure secondary to aspiration pneumonia with possible flash pulmonary edema complicated by recurrent pleural effusions -She had been stabilized on BiPAP nightly and was weaned down to 4 L of O2 at rest and vitals immediately prior to discharge showed a pulse rate of 96 with a BP of 97/62, respiratory rate 19 and her pulse ox was 100% on 3 L nasal cannula -Re-presented with shortness of breath and was placed on AVAPS in the ED, presenting vitals in ED with heart rate of 114, blood pressure 102/67 with a respiratory rate of 26 and 92% on 6 L -Chest x-ray demonstrated bilateral pleural effusions though does have chronic effusions but x-ray appeared worse than 2 days prior, may need CT scan to better evaluate depending on progression -BNP 90, was 200 on arrival last admission -Daily weights, I's and O's -Was placed on IV Bumex and pulmonology consulted -11/23/22: Estimated ejection fraction of 70%. Unable to assess diastolic dysfunction per report. Pulmonary artery systolic pressure 55 to 60 mmHg. -Kerlix roll and to bilateral lower extremities -Fluid restriction of 1500 mls daily -N.p.o. -Resume Robitussin, budesonide, nebs -May need inpatient transfer for CT surgery evaluation. #recurrent pleural effusions -Had previous VATS and pleurodesis on the right and in 2019 had Pleurx catheter on the left -Two admissions ago had R thoracentesis 11/26/22 w/ removal of 525cc stephen colored fluid -pulmonology was following last admission and ultimately decided against further intervention with effusion at this time with plans to optimize clinically/medically w/ outpt CT surgery referral -On diuretics -Pulm consulted #Hx chronic HfpEF/mod pulm HTN/recent PE's/bronchiectasis -On bipap, IV bumex ordered -Eliquis changed to heparin gtt in the event she may need intervention for effusions -Pulmonology to eval #Paroxysmal A-fib -Amio, now hep gtt #Leukocytosis -Presentation white count was 18,100 and white count earlier in the same day was 12,200. -This a.m. 13 #Acute on chronic thrombocytosis -Likely reactive, trend. -Did downtrend in the a.m. #Chronic anemia -Stable -EGD 12/21 w/ intact gastrostomy w/ gtube and single bleeding angiodysplastic lesion in stomach treated w/ heater probe -Transfuse if <7 -Started on PO iron last admission -Will need outpt colonoscopy and capsule endoscopy #hx CAD s/p stents -MFT-FMO-Cgnara RCA w/ 3.0 x 20 mm Synergy Stent and Prox-Mid RCA w/ 3.5 x 24 mm Synergy Stent 06/18/2020 -Was on triple therapy, only on eliquis and asa on d/c #Dysphagia/severe protein calorie malnutrition -PEG tube placed 11/30/2022 after she required intubation during hospitalization from 11/21/2022 to 11/27/2022 and had persistent dysphagia.? Continues to maintain nutrition via PEG tube -With tube feeding. Dietitian consult for recommendation. #Stage III decubitus ulcer -Apply wet-to-dry dressing. Wound care consult. #Hypothyroidism -Continue Synthroid #DVT prophylaxis/history of PE On Eliquis. Switch to heparin drip while n.p.o. and while patient is surgical candidate for interventions secondary to pleural effusions. Charges/Coding Visit Charges Inpatient E&M: 91925 Subs Hosp L2
--- NOTE | 2022-12-31 10:09 | PCM.PN.INT ---
Assessment & Plan Assessment/Plan (1) Acute and chronic respiratory failure with hypoxia: PLAN: Plan RECOMMENDATIONS: 1. Continue to wean supplemental oxygen to maintain saturations at or above 90%. 2. Likely does not require additional antibiotics 3. Continue scheduled Atrovent aerosols. 4. Continue AVAPS therapy nightly and as needed during the day. 5. Continue nutritional support via G-tube. 6. Continue Eliquis per home regimen. 7. Encourage incentive spirometer use and mobilize patient as tolerated. 8. Consider transfer to tertiary center for cardiothoracic evaluation IMPRESSIONS: 1. Acute on chronic hypoxemic respiratory failure Most likely secondary to flash pulmonary edema given rapidity of onset and improvement. The patient has a known history of underlying bronchiectasis and recurrent pleural effusion, which according to documentation, was previously felt to be cardiac in etiology.? The patient did undergo a VATS and pleurodesis on the right and in 2019 had a Pleurx catheter on the left side in 2019.? The original plan was to allow patient to improve her nutritional status prior to having an outpatient evaluation by cardiothoracic surgery. However, given patient's repeated hospitalizations, it may be necessary to do a hospital hospital evaluation for cardiothoracic surgery. Do not believe patient is having repeated infections, so another course of antibiotics are likely not necessary. Patient has responded to diuretics in the past 2.??History of subsegmental PE with RV dysfunction and pulmonary hypertension Okay to continue Eliquis from my perspective, given stability in the patient's hemoglobin. 3.??COPD with chronic bronchitis Continue scheduled Atrovent aerosols.? 4.??Pulmonary cachexia/hypothyroidism/GERD Complicates care, management, recovery and prognosis.? Continue supportive measures as noted above including tube feeds as tolerated. This note was generated with [employer] dictation software. It may contain incorrect words, spelling, and punctuation that were not noted in checking the note before signing. Subjective Subjective Patient has been seen multiple times over repeated hospitalizations. Patient states that she continues to have intermittent issues of extreme shortness of breath upon arriving at the [facility]. Patient is not reporting any inciting incident such as chest pain, palpitations or lower extremity edema. Patient does report she has had somewhat of a sore throat that she attributes to coughing. Patient is feeling much better on BiPAP therapy and oxygen requirements have significantly improved. Objective Data Objective Data Vital Signs: Vital Signs Temp Pulse Resp BP Pulse Ox O2 Del Method O2 Flow Rate 36.7 C 91 28 H 91/68 92 Bi-pap 10 12/31/22 06:00 12/31/22 07:35 12/31/22 07:35 12/31/22 06:00 12/31/22 08:52 12/31/22 08:52 12/30/22 19:16 FiO2 65 12/31/22 08:52 Oxygen Flow Rate (L/min) 10 Oxygen Delivery Method Bi-pap Weight: 47.1 kg Body Mass Index (BMI) 21.7 Intake & Output: Intake and Output for Last 24 Hours 12/29/22 12/30/22 12/31/22 23:59 23:59 23:59 Intake Total 70.96 / 70.96 Balance 70.96 / 70.96 Medical Nutrition Assessment Dietitian: Malnutrition Criteria Met Start: 12/31/22 09:54 Freq: Status: Active Protocol: Document 12/31/22 09:54 (Rec: 12/31/22 09:54 [id number]) Nutrition Malnutrition Evidence of Malnutrition Exists Yes Malnutrition (severe): Chronic Evidenced By Suboptimal Energy Intake ( Severe),Physical Changes ( Severe) Clinical Problem Chronic Disease or Condition Related Malnutrition Etiology chronic severe malnutrition related to inadequate energy intake Signs/Symptoms as evidenced by as evidenced by estimated PO intake meeting <75% of estimated energy needs > 3 months, severe fat/ muscle wasting per physical exam in orbital, temporal, clavicle, and acromion areas Status Active Problem Recommendation Dietitian Recommendations/Changes 1) Bolus feeds via PEG- Jevity 1.5 180mL bolus 5x/day w/ 60mL H2O flush before and after each bolus to provide 1350 calories, 57 g protein, and 1284mL fluid/day. 2) John BID via PEG. 3) Daily wts. Lab / Micro Data Attestation: I reviewed the patient's lab results. Result Diagrams: 12/31/22 06:35 12/31/22 06:35 Labs: Laboratory Results - last 24 hr 12/30/22 18:58: WBC 18.1 H, RBC 3.39 L, Hgb 8.3 L, Hct 29.0 L, MCV 85.5, MCH 24.5 L, MCHC 28.6 L, RDW Std Deviation 76.1 H, RDW Coeff of Angie 25.2 H, Plt Count 823 H*, MPV 10.5, Immature Gran % (Auto) 0.700, Neut % (Auto) 87.7 H, Lymph % (Auto) 3.3 L, [place] % (Auto) 7.6, Eos % (Auto) 0.3, Baso % (Auto) 0.4, Absolute Neuts (auto) 15.9 H, Absolute Lymphs (auto) 0.59 L, Nucleated RBC % 0, Differential Comment SCANNED, Diff Path Review May foll, Platelet Estimate MKD INC, Hypochromasia 2+, Anisocytosis 2+, Target Cells 1+ 12/30/22 18:58: Sodium 139, Potassium 4.1, Chloride 95 L, Carbon Dioxide 39.0 H, Anion Gap 5, BUN 28 H, Creatinine 0.33 L, Estim Creat Clear Calc 126.37, Est GFR (MDRD) Af Amer 258, Est GFR (MDRD) Non-Af 213, BUN/Creatinine Ratio 85.1 H, Glucose 96, Calcium 8.2 L, Troponin I High Sens 5 12/30/22 18:58: Lactic Acid 0.8 12/30/22 18:58: B-Natriuretic Peptide 90.0 12/30/22 18:58: PT 14.7, INR 1.1 12/30/22 18:58: APTT 30.7 12/30/22 23:05: Procalcitonin 0.13 H 12/31/22 06:35: WBC 13.0 H, RBC 3.12 L, Hgb 7.9 L, Hct 26.7 L, MCV 85.6, MCH 25.3 L, MCHC 29.6 L, RDW Std Deviation 76.3 H, RDW Coeff of Angie 24.7 H, Plt Count 687 H, MPV 9.4, Immature Gran % (Auto) 0.800, Neut % (Auto) 88.0 H, Lymph % (Auto) 2.8 L, [place] % (Auto) 7.5, Eos % (Auto) 0.2, Baso % (Auto) 0.7, Absolute Neuts (auto) 11.5 H, Absolute Lymphs (auto) 0.36 L, Nucleated RBC % 0, Differential Comment SCANNED, Platelet Estimate SLT INC, Anisocytosis 1+, Macrocytosis 1+ 12/31/22 06:35: Sodium 139, Potassium 3.3 L, Chloride 95 L, Carbon Dioxide 41.0 H, Anion Gap 3 L, BUN 23 H, Creatinine 0.35 L, Estim Creat Clear Calc 119.15, Est GFR (MDRD) Af Amer 239, Est GFR (MDRD) Non-Af 198, BUN/Creatinine Ratio 65.5 H, Glucose 96, Calcium 8.2 L 12/31/22 06:35: APTT 122.8 H* Radiography Diagnostic Testing: Radiology Impression Chest X-Ray 12/30/22 19:50 IMPRESSION: Bilateral pleural effusions. Basilar infiltrates cannot be excluded. Electronically Signed: Goran Restrepo DO at 20:14 EDT Reading Location ID and State: [facility] / [place] Tel [phone], Service support , Physical Exam Const alert and no apparent distress Constitutional Narrative: On BiPAP during my evaluation General Appearance: cooperative and frail HEENT normocephalic and head/scalp atraumatic Eyes PERRL, EOMs intact bilaterally and conjunctivae normal Neck supple General: trachea midline Chest inspection of chest normal Resp Effort and Inspection: tachypneic; Negative for uses accessory muscles Auscultation: diminished lung sounds; Negative for rales, rhonchi or wheezes Cardio regular rate and regular rhythm GI normal to inspection, nondistended, normoactive bowel sounds Inspection: GI tube present Extremity no clubbing, cyanosis or edema Skin no rashes or lesions noted Neuro CN's II-XII intact bilaterally and no focal motor deficits Psych Mood & Affect: flat affect Charges/Coding Visit Charges Inpatient E&M: 23835 Subs Hosp L3
--- NOTE | 2022-12-31 10:30 | CASEMGMT ---
Patient was just discharged back to [facility] yesterday. Marketing Strategy Lead Dr Mcguire spoke with patient about possible transfer to see a cardio thoracic surgeon. Patient going to a jail to get stronger does not seem to be working. Patient asked physician to call her son. Physician will call patient's son. Gisella YAN
[2022-12-31] MEDS: Potassium Chloride 10mEq/100mL 10 MEQ/100 ML IV.SOLN. 100 MEQ IV BOLUS ×2 (10:51→12:13)
[2022-12-31] MEDS: Bumetanide 1 MG/4 ML Vial IV (11:13)
--- NOTE | 2022-12-31 11:39 | CASEMGMT ---
MARCELA CM NOTE: Insurance review for hospitals In-network with [employer] if transfer is recommended is as follows: [facility], [place], [facility], [facility], [facility], [facility], [facility]), [place], and . Jaime MURRAYN MARCELA CM
--- NOTE | 2022-12-31 11:42 | WOUNDNOTE ---
wound photo: back
--- NOTE | 2022-12-31 11:42 | WOUNDNOTE ---
wound photo: sacrum
[2022-12-31] MEDS: LORazepam 0.5 MG Tablet 0.25 MG PO (12:15)
[2022-12-31] MEDS: guaiFENesin 10 ML UDC (200MG/10ML) GT ×2 (12:20→18:13)
[2022-12-31] MEDS: Amiodarone 200 MG Tablet GT (12:21)
[2022-12-31] MEDS: Aspirin 81 MG TAB.CHEW GT (12:21)
[2022-12-31] MEDS: Potassium Chloride Oral Tablet 20 MEQ GT (12:21)
[2022-12-31] MEDS: Montelukast 10 MG Tablet GT (12:22)
--- NOTE | 2022-12-31 14:51 | CHAPLAIN ---
Type of Pastoral Visit _x__ Initial Visit ___ Follow-up Visit ___ On-call Visit ___ General Patient Visit ___ Spiritual Assessment ___ Family Conference ___ Bereavement ___ Rapid Response ___ Code Blue ___ Other (describe below) Pastoral Care Referral From _x__ Patient ___ Family ___ Nurse ___ Physician ___ Leather Coater ___ Badger Distiller Operator ___ Other (describe below) Sacrament/Intervention ___ Active listening ___ Anointing ___ Jehovah'S Witness ___ Bereavement ___ Communion ___ Angie exploration ___ ___ Life review ___ Prayer ___ Reconciliation ___ Sacrament of Sick ___ Supportive presence ___ Wedding _x__ Other (describe below) Pastoral Comments patient has been seen in recent previous admissions; pt is now on bi-pap and sleeping and thus was not disturbed by this bicycle mechanic today
[2022-12-31] MEDS: Jevity 1.5. 1,000 ML Bottle 180 ML GT ×3 (16:28→22:33)
[2022-12-31] MEDS: Juven (unflavored) Packet 1 PACKET GT (18:11)
[2022-12-31 19:18] LABS: Partial Thromboplast Time 38.2 Seconds (24.1-36.2)
[2022-12-31] MEDS: Ipratropium/Albuterol Sulfate 3 ML AMPUL.NEB INHALATION (21:30)
[2022-12-31] MEDS: Budesonide Respules 0.5 MG/2 ML AMPUL.NEB. INHALATION (21:30)
[2022-12-31] MEDS: Acetaminophen 650 MG/20 ML UDC GT (22:32)
[2022-12-31] MEDS: Atorvastatin Calcium 40 MG Tablet GT (22:33)
[2022-12-31] MEDS: LORazepam 0.5 MG Tablet GT (22:33)
[2023-01-01] VITALS (19 sets, daily range): BP systolic 91–148; BP diastolic 63–84; PULSE 87–103; RESP 12–42; TEMP 35.9–37.4; O2SAT 85–100; BMI 21.6
[2023-01-01] MEDS: guaiFENesin 10 ML UDC (200MG/10ML) GT ×4 (01:19→18:36)
[2023-01-01] MEDS: Ipratropium/Albuterol Sulfate 3 ML AMPUL.NEB INHALATION ×6 (03:50→22:49)
[2023-01-01] MEDS: Levothyroxine 88 MCG Tablet GT (06:00)
[2023-01-01] MEDS: Budesonide Respules 0.5 MG/2 ML AMPUL.NEB. INHALATION ×2 (07:19→19:26)
[2023-01-01 07:39] LABS: Absolute Lymphocyte Count 0.35 X10^3/uL (0.83-4.51); Absolute Neutrophil Count 10.9 X10^3/uL (2.0-7.7); Basophil# 0.08 X10^3/uL; Basophil% 0.6 % (0-1); Eosinophil# 0.05 X10^3/uL; Eosinophils% 0.4 % (0-5); Hematocrit 28.2 % (37-47); Hemoglobin 7.8 g/dL (12.0-15.0); Lymphocyte # 0.35 X10^3/ul (0.83-4.51); Lymphocyte % 2.8 % (19-41); Mean Corp Hgb Conc 27.7 g/dL (32-36); Mean Corpuscular Hgb 24.5 pg (27.0-32.0); Mean Corpuscular Volume 88.4 fL (81-99); Monocyte# 0.89 X10^3/uL; Monocyte% 7.2 % (0-10); NRBC Flagged by Analyzer 0 % (0-5); Neutrophil # 10.91 X10^3/uL (2.7-7.7); Neutrophil % 88.4 % (47-70); POSITIVE DIFFERENTIAL YES; POSITIVE MORPHOLOGY YES; Platelet Count 718 K/mm3 (150-450); RBC Distribution Width CV 24.7 % (11.6-14.6); RBC Distribution Width SD 77.7 fl (35.1-43.9); Red Blood Count 3.19 M/mm3 (4.2-5.4); White Blood Count 12.4 K/mm3 (4.4-11.0)
[2023-01-01 07:43] LABS: Differential Indicated SCAN CRITERIA MET
[2023-01-01 08:10] LABS: ALB/GLOB Ratio 0.4 RATIO (0.9-2.4); AST(SGOT) 19 U/L (15-37); Alanine Aminotransfer ALT/SGPT 26 U/L (13-56); Albumin, Serum 1.9 g/dL (3.2-5.0); Alkaline Phosphatase 106 U/L (45-117); Anion Gap 3 (5-15); BUN 27 mg/dL (7-18); BUN/Creat Ratio 84.9 RATIO (10-20); Calcium,Total 8.6 mg/dL (8.5-10.1); Chloride 94 mmol/L (98-107); Creatinine, Serum 0.32 mg/dL (0.55-1.02); EST Glomerular Filtration Rate 221 mL/min (>60); Est Glom Filt Rate - Afr Amer 268 mL/min (>60); Estimated Creatinine Clearance 129.22 ml/min; Globulin 4.4 g/dL (2.2-4.2); Glucose 108 mg/dL (74-106); Potassium 3.9 mmol/L (3.5-5.1); Protein, Total 6.3 g/dL (6.4-8.2); Sodium Level 137 mmol/L (136-145)
[2023-01-01 08:36] LABS: Partial Thromboplast Time 33.3 Seconds (24.1-36.2)
[2023-01-01 08:52] LABS: Anisocytosis 2+; Polychromasia 1+
[2023-01-01] MEDS: Iron Polysaccharide Complex 150 MG CAPSULE GT (08:58)
[2023-01-01] MEDS: Aspirin 81 MG TAB.CHEW GT (08:58)
[2023-01-01] MEDS: Amiodarone 200 MG Tablet GT (08:58)
[2023-01-01] MEDS: Lansoprazole 15 MG Capsule.DR 30 MG GT (08:58)
[2023-01-01] MEDS: Juven (unflavored) Packet 1 PACKET GT ×2 (08:58→18:37)
[2023-01-01] MEDS: Montelukast 10 MG Tablet GT (08:58)
[2023-01-01] MEDS: LORazepam 0.5 MG Tablet GT ×3 (08:59→22:30)
[2023-01-01] MEDS: Acetaminophen 650 MG/20 ML UDC GT ×2 (08:59→18:36)
[2023-01-01] MEDS: Jevity 1.5. 1,000 ML Bottle 180 ML GT ×4 (09:04→22:34)
[2023-01-01] MEDS: 0.9% Saline Lock 10 ML Syringe IV ×2 (09:18→18:43)
--- NOTE | 2023-01-01 09:52 | PCM.PN.HOSP ---
Reason for Visit Reason for Visit: Diagnoses Unspecified diastolic (congestive) heart failure (12/30/22) Acute pulmonary edema (12/30/22) Acute and chronic respiratory failure with hypoxia (12/30/22) Pressure ulcer of unspecified site, unspecified stage (12/30/22) Subjective Subjective Is feeling better, asking again about increasing Ativan to every 6 hours Objective Data Objective Data Vital Signs: Vital Signs Temp Pulse Resp BP Pulse Ox O2 Del Method O2 Flow Rate 97.7 F L 95 36 H 117/84 H 91 Bi-pap 6 01/01/23 09:00 01/01/23 09:05 01/01/23 09:05 01/01/23 09:00 01/01/23 09:09 01/01/23 09:18 01/01/23 07:19 FiO2 75 01/01/23 09:18 Oxygen Flow Rate (L/min) 6 Oxygen Delivery Method Bi-pap Weight: 46.7 kg Body Mass Index (BMI) 21.6 Intake & Output: Intake and Output for Last 24 Hours 12/30/22 12/31/22 01/01/23 23:59 23:59 23:59 Intake Total 610.96 / 610.96 187.93 / 187.93 Balance 610.96 / 610.96 187.93 / 187.93 Medical Nutrition Assessment Dietitian: Malnutrition Criteria Met Start: 12/31/22 09:54 Freq: Status: Active Protocol: Document 12/31/22 09:54 AG (Rec: 12/31/22 09:54 AG [id number]) Nutrition Malnutrition Evidence of Malnutrition Exists Yes Malnutrition (severe): Chronic Evidenced By Suboptimal Energy Intake ( Severe),Physical Changes ( Severe) Clinical Problem Chronic Disease or Condition Related Malnutrition Etiology chronic severe malnutrition related to inadequate energy intake Signs/Symptoms as evidenced by as evidenced by estimated PO intake meeting <75% of estimated energy needs > 3 months, severe fat/ muscle wasting per physical exam in orbital, temporal, clavicle, and acromion areas Status Active Problem Recommendation Dietitian Recommendations/Changes 1) Bolus feeds via PEG- Jevity 1.5 180mL bolus 5x/day w/ 60mL H2O flush before and after each bolus to provide 1350 calories, 57 g protein, and 1284mL fluid/day. 2) John BID via PEG. 3) Daily wts. Lab / Micro Data Result Diagrams: 01/01/23 06:57 01/01/23 06:57 Labs: Laboratory Results - last 24 hr 12/31/22 18:29: APTT 38.2 H 01/01/23 06:57: WBC 12.4 H, RBC 3.19 L, Hgb 7.8 L, Hct 28.2 L, MCV 88.4, MCH 24.5 L, MCHC 27.7 L D, RDW Std Deviation 77.7 H, RDW Coeff of Angie 24.7 H, Plt Count 718 H, MPV 11.0, Immature Gran % (Auto) 0.600, Neut % (Auto) 88.4 H, Lymph % (Auto) 2.8 L, Clinch % (Auto) 7.2, Eos % (Auto) 0.4, Baso % (Auto) 0.6, Absolute Neuts (auto) 10.9 H, Absolute Lymphs (auto) 0.35 L, Nucleated RBC % 0, Polychromasia 1+, Anisocytosis 2+ 01/01/23 06:57: Sodium 137, Potassium 3.9, Chloride 94 L, Carbon Dioxide 40.0 H, Anion Gap 3 L, BUN 27 H, Creatinine 0.32 L, Estim Creat Clear Calc 129.22, Est GFR (MDRD) Af Amer 268, Est GFR (MDRD) Non-Af 221, BUN/Creatinine Ratio 84.9 H, Glucose 108 H, Calcium 8.6, Total Bilirubin 0.20, AST 19, ALT 26, Alkaline Phosphatase 106, Total Protein 6.3 L, Albumin 1.9 L, Globulin 4.4 H, Albumin/Globulin Ratio 0.4 L 01/01/23 07:55: APTT 33.3 Physical Exam Narrative General: Alert, oriented, no apparent distress HEENT: Atraumatic, normocephalic Eyes: Anicteric, normal conjunctiva, extraocular movements grossly intact Neck: Supple Respiratory: On BiPAP, diminished bilaterally, appears more comfortable however Cardiovascular: Regular rate and rhythm GI: Soft, nontender, nondistended Extremities: Improving lower extremity edema Musculoskeletal: Moving all extremities Neuro: No overt focal neurological deficits Skin: No rashes appreciated Psych: Cooperative Assessment & Plan Assessment/Plan (1) Heart failure with preserved ejection fraction: (2) Flash pulmonary edema: (3) Decubitus ulcer: PLAN: Plan #Shortness of breath presumed to be secondary to Acute on chronic heart failure with preserved ejection fraction/flash pulm edema -Discharged earlier the same day of presentation after admission for acute on chronic hypoxic respiratory failure secondary to aspiration pneumonia with possible flash pulmonary edema complicated by recurrent pleural effusions -She had been stabilized on BiPAP nightly and was weaned down to 4 L of O2 at rest and vitals immediately prior to discharge showed a pulse rate of 96 with a BP of 97/62, respiratory rate 19 and her pulse ox was 100% on 3 L nasal cannula -Re-presented with shortness of breath and was placed on AVAPS in the ED, presenting vitals in ED with heart rate of 114, blood pressure 102/67 with a respiratory rate of 26 and 92% on 6 L -Chest x-ray demonstrated bilateral pleural effusions though does have chronic effusions but x-ray appeared worse than 2 days prior, may need CT scan to better evaluate depending on progression -BNP 90, was 200 on arrival last admission -Daily weights, I's and O's -Was placed on IV Bumex and pulmonology consulted -11/23/22: Estimated ejection fraction of 70%. Unable to assess diastolic dysfunction per report. Pulmonary artery systolic pressure 55 to 60 mmHg. -Kerlix roll and to bilateral lower extremities -Fluid restriction of 1500 mls daily -N.p.o. -Resume Robitussin, budesonide, nebs -May need inpatient transfer for CT surgery evaluation. -01/01: Improved quickly and was 100% on BiPAP but had trial on nasal cannula and then required going back on BiPAP due to tachypnea which then caused O2 sat to drop. Discussed with pulm yesterday evening and given that she is improving fairly quickly again it is unclear if inpatient to inpatient transfer is necessary. Started back on Eliquis. Appreciate pulm recs, continue to IV diuresis and wean BiPAP as tolerated. Continue nebs #recurrent pleural effusions -Had previous VATS and pleurodesis on the right and in 2019 had Pleurx catheter on the left -Two admissions ago had R thoracentesis 11/26/22 w/ removal of 525cc stephen colored fluid -pulmonology was following last admission and ultimately decided against further intervention with effusion at this time with plans to optimize clinically/medically w/ outpt CT surgery referral -On diuretics -Pulm consulted -01/01: Discussed with pulm yesterday evening and given that she is improving fairly quickly again it is unclear if inpatient to inpatient transfer is necessary. Started back on Eliquis. Appreciate pulm recs, continue to IV diuresis and wean BiPAP as tolerated. Continue nebs #Hx chronic HfpEF/mod pulm HTN/recent PE's/bronchiectasis -On bipap, IV bumex ordered -Eliquis changed to heparin gtt in the event she may need intervention for effusions -Pulmonology to eval -01/01: Switch back to Eliquis #Paroxysmal A-fib -Amio, Eliquis #Leukocytosis -Presentation white count was 18,100 and white count earlier in the same day was 12,200. -This a.m. 13 -01/01: Improving, do not suspect repeated infection that would necessitate further antibiotics #Acute on chronic thrombocytosis -Likely reactive, trend. -Did downtrend in the a.m. -01/01: Variable, continue iron #Chronic anemia -Stable -EGD 12/21 w/ intact gastrostomy w/ gtube and single bleeding angiodysplastic lesion in stomach treated w/ heater probe -Transfuse if <7 -Started on PO iron last admission -Will need outpt colonoscopy and capsule endoscopy #hx CAD s/p stents -[id number]-[id number]-Rvalex RCA w/ 3.0 x 20 mm Synergy Stent and Prox-Mid RCA w/ 3.5 x 24 mm Synergy Stent 06/18/2020 -Was on triple therapy, only on eliquis and asa on d/c #Dysphagia/severe protein calorie malnutrition -PEG tube placed 11/30/2022 after she required intubation during hospitalization from 11/21/2022 to 11/27/2022 and had persistent dysphagia.? Continues to maintain nutrition via PEG tube -With tube feeding. Dietitian consult for recommendation. #Stage III decubitus ulcer -Apply wet-to-dry dressing. Wound care consult. #Hypothyroidism -Continue Synthroid #DVT prophylaxis/history of PE On Eliquis. Charges/Coding Visit Charges Inpatient E&M: 70908 Subs Hosp L2
[2023-01-01] MEDS: Potassium Chloride Oral Tablet 20 MEQ GT (11:23)
[2023-01-01] MEDS: busPIRone 5 MG Tablet PO ×3 (11:24→22:31)
[2023-01-01] MEDS: APIXABAN 5 MG TABLET GT ×2 (11:24→22:31)
--- NOTE | 2023-01-01 15:40 | RAD_ITS ---
STUDY: XR Chest 1 View 01/01/2023 3:34 PM REASON FOR EXAM: Female, 67 years old. CHEST PAIN Shortness of breath COMPARISON: Two days ago. TECHNIQUE: XR Chest 1 View FINDINGS: There are bilateral pleural effusions. There are bilateral infiltrates. There are multiple overlying cardiac monitoring leads. There is no pneumothorax. Enlarged heart size. Normal mediastinum. Normal agapito. Prominent appearing increased interstitial lung markings. Normal visualized pulmonary arteries. There is atherosclerotic calcification of the aortic arch with tortuosity. There are diffuse degenerative changes of the visualized thoracic spine. There is degenerative osteoarthritis of the bilateral shoulders. There is no demonstrated abnormality of the visualized soft tissue structures of the upper abdomen. RAD/Chest 1 View (Portable) IMPRESSION: Pulmonary findings appear improved. Electronically Signed: Gee Cloud MD at 16:44 EDT ,
--- NOTE | 2023-01-01 15:43 | CHAPLAIN ---
Type of Pastoral Visit _x__ Initial Visit ___ Follow-up Visit ___ On-call Visit ___ General Patient Visit ___ Spiritual Assessment ___ Family Conference ___ Bereavement ___ Rapid Response ___ Code Blue ___ Other (describe below) Pastoral Care Referral From _x__ Patient ___ Family ___ Nurse ___ Physician ___ Biology Specimen Technician ___ Dental Technician Metal ___ Other (describe below) Sacrament/Intervention ___ Active listening ___ Anointing ___ Mandaen ___ Bereavement ___ Communion ___ Angie exploration ___ ___ Life review _x__ Prayer ___ Reconciliation ___ Sacrament of Sick _x__ Supportive presence ___ Wedding ___ Other (describe below) Pastoral Comments patient has been seen in previous admissions which are recent; son and grandson are in the room; pt is awake and on bi-pap; pt acknowledges presence and gives nod to prayer; affirmation of support to patient; offer of support to family members;
[2023-01-01] MEDS: Bumetanide 1 MG/4 ML Vial IV (18:37)
[2023-01-01 18:48] LABS: Magnesium 2.3 mg/dL (1.6-2.6); Phosphorus 2.7 mg/dL (2.5-4.9)
[2023-01-01] MEDS: Atorvastatin Calcium 40 MG Tablet GT (22:32)
[2023-01-02] VITALS (21 sets, daily range): BP systolic 93–126; BP diastolic 58–80; PULSE 90–103; RESP 12–42; TEMP 36–37; O2SAT 92–100; BMI 20.8
[2023-01-02] MEDS: Ipratropium/Albuterol Sulfate 3 ML AMPUL.NEB INHALATION ×6 (03:28→23:28)
[2023-01-02] MEDS: Levothyroxine 88 MCG Tablet GT (05:17)
[2023-01-02] MEDS: busPIRone 5 MG Tablet PO ×3 (05:17→22:50)
[2023-01-02] MEDS: guaiFENesin 10 ML UDC (200MG/10ML) GT ×3 (05:25→18:45)
[2023-01-02] MEDS: Budesonide Respules 0.5 MG/2 ML AMPUL.NEB. INHALATION ×2 (07:20→19:05)
[2023-01-02 08:12] LABS: Absolute Lymphocyte Count 0.29 X10^3/uL (0.83-4.51); Basophil# 0.07 X10^3/uL; Basophil% 0.4 % (0-1); Eosinophil# 0.04 X10^3/uL; Eosinophils% 0.2 % (0-5); Hematocrit 27.6 % (37-47); Hemoglobin 7.8 g/dL (12.0-15.0); Lymphocyte # 0.29 X10^3/ul (0.83-4.51); Lymphocyte % 1.7 % (19-41); Mean Corp Hgb Conc 28.3 g/dL (32-36); Mean Corpuscular Hgb 24.7 pg (27.0-32.0); Mean Corpuscular Volume 87.3 fL (81-99); Mean Platelet Vol. 10.3 fl (6.2-12.0); Monocyte# 1.17 X10^3/uL; NRBC Flagged by Analyzer 0 % (0-5); Neutrophil # 14.98 X10^3/uL (2.7-7.7); POSITIVE COUNT YES; POSITIVE DIFFERENTIAL YES; POSITIVE MORPHOLOGY YES; RBC Distribution Width CV 24.1 % (11.6-14.6); Red Blood Count 3.16 M/mm3 (4.2-5.4); White Blood Count 16.7 K/mm3 (4.4-11.0)
--- NOTE | 2023-01-02 08:15 | PN.HOSP_ITS ---
Reason for Visit Reason for Visit: Diagnoses Unspecified diastolic (congestive) heart failure (12/30/22) Acute pulmonary edema (12/30/22) Acute and chronic respiratory failure with hypoxia (12/30/22) Pressure ulcer of unspecified site, unspecified stage (12/30/22) Subjective Subjective Patient continues to be on BiPAP with variable requirements adjusted Objective Data Objective Data Vital Signs: Vital Signs Temp Pulse Resp BP Pulse Ox O2 Del Method O2 Flow Rate 98.0 F 100 42 H 111/80 97 Bi-pap 6 01/02/23 05:14 01/02/23 05:14 01/02/23 05:14 01/02/23 05:14 01/02/23 05:14 01/02/23 05:14 01/01/23 07:19 FiO2 75 01/02/23 05:14 Oxygen Flow Rate (L/min) 6 Oxygen Delivery Method Bi-pap Weight: 45 kg Body Mass Index (BMI) 20.8 Intake & Output: Intake and Output for Last 24 Hours 12/31/22 01/01/23 01/02/23 23:59 23:59 23:59 Intake Total 610.96 / 610.96 767.93 / 767.93 Balance 610.96 / 610.96 767.93 / 767.93 Medical Nutrition Assessment Dietitian: Malnutrition Criteria Met Start: 12/31/22 09:54 Freq: Status: Active Protocol: Document 12/31/22 09:54 AG (Rec: 12/31/22 09:54 AG [id number]) Nutrition Malnutrition Evidence of Malnutrition Exists Yes Malnutrition (severe): Chronic Evidenced By Suboptimal Energy Intake ( Severe),Physical Changes ( Severe) Clinical Problem Chronic Disease or Condition Related Malnutrition Etiology chronic severe malnutrition related to inadequate energy intake Signs/Symptoms as evidenced by as evidenced by estimated PO intake meeting <75% of estimated energy needs > 3 months, severe fat/ muscle wasting per physical exam in orbital, temporal, clavicle, and acromion areas Status Active Problem Recommendation Dietitian Recommendations/Changes 1) Bolus feeds via PEG- Jevity 1.5 180mL bolus 5x/day w/ 60mL H2O flush before and after each bolus to provide 1350 calories, 57 g protein, and 1284mL fluid/day. 2) John BID via PEG. 3) Daily wts. Lab / Micro Data Result Diagrams: 01/02/23 07:00 01/02/23 07:00 Labs: Laboratory Results - last 24 hr 01/01/23 06:57: Polychromasia 1+, Anisocytosis 2+ 01/01/23 06:57: Phosphorus 2.7, Magnesium 2.3 01/01/23 07:55: APTT 33.3 Micro: Microbiology 12/30/22 23:10 Blood Culture (Wb) - Anticubital Right Blood Culture - Preliminary No growth in 48 hours. 12/30/22 23:05 Blood Culture (Wb) - Anticubital Left Blood Culture - Preliminary No growth in 48 hours. Radiography Diagnostic Testing: Radiology Impression Chest X-Ray 01/01/23 15:40 IMPRESSION: Pulmonary findings appear improved. Electronically Signed: Gee Cloud MD at 16:44 EDT Reading Location ID and State: [facility] / [place] , Service support , Physical Exam Narrative General: Makes upon exam, appears tired HEENT: Atraumatic, normocephalic Eyes: Anicteric, normal conjunctiva, extraocular movements grossly intact Neck: Supple Respiratory: On BiPAP, diminished bilaterally Cardiovascular: Regular rate and rhythm GI: Soft, nontender, nondistended Extremities: Improving lower extremity edema Musculoskeletal: Moving all extremities Neuro: No overt focal neurological deficits Skin: No rashes appreciated Psych: Cooperative Assessment & Plan Assessment/Plan (1) Heart failure with preserved ejection fraction: (2) Flash pulmonary edema: (3) Decubitus ulcer: PLAN: Plan #Shortness of breath presumed to be secondary to Acute on chronic heart failure with preserved ejection fraction/flash pulm edema -Discharged earlier the same day of presentation after admission for acute on chronic hypoxic respiratory failure secondary to aspiration pneumonia with possible flash pulmonary edema complicated by recurrent pleural effusions -She had been stabilized on BiPAP nightly and was weaned down to 4 L of O2 at rest and vitals immediately prior to discharge showed a pulse rate of 96 with a BP of 97/62, respiratory rate 19 and her pulse ox was 100% on 3 L nasal cannula -Re-presented with shortness of breath and was placed on AVAPS in the ED, presenting vitals in ED with heart rate of 114, blood pressure 102/67 with a respiratory rate of 26 and 92% on 6 L -Chest x-ray demonstrated bilateral pleural effusions though does have chronic effusions but x-ray appeared worse than 2 days prior, may need CT scan to better evaluate depending on progression -BNP 90, was 200 on arrival last admission -Daily weights, I's and O's -Was placed on IV Bumex and pulmonology consulted -11/23/22: Estimated ejection fraction of 70%. Unable to assess diastolic dysfunction per report. Pulmonary artery systolic pressure 55 to 60 mmHg. -Kerlix roll and to bilateral lower extremities -Fluid restriction of 1500 mls daily -N.p.o. -Resume Robitussin, budesonide, nebs -May need inpatient transfer for CT surgery evaluation. -01/01: Improved quickly and was 100% on BiPAP but had trial on nasal cannula and then required going back on BiPAP due to tachypnea which then caused O2 sat to drop. Discussed with pulm yesterday evening and given that she is improving fairly quickly again it is unclear if inpatient to inpatient transfer is necessary. Started back on Eliquis. Appreciate pulm recs, continue to IV diuresis and wean BiPAP as tolerated. Continue nebs -01/02: O2 sats improving but primarily struggling with tachypnea. Patient very fixated on Ativan however suspect this is a cyclical process as it does help with her work of breathing however she is more anxious because she is waiting and anxious about her next dose of Ativan, discussed this with her son and have discussed with patient multiple times the balance between treating the anxiety and helping with the tachypnea with not depleting her respiratory drive and potentially worsening her clinical picture. Remains on diuretics. Chest x-ray yesterday with pulmonary findings appearing improved. Pulmonology saw today and adjusted AVAPS settings #recurrent pleural effusions -Had previous VATS and pleurodesis on the right and in 2019 had Pleurx catheter on the left -Two admissions ago had R thoracentesis 11/26/22 w/ removal of 525cc stephen colored fluid -pulmonology was following last admission and ultimately decided against further intervention with effusion at this time with plans to optimize clinically/med ically w/ outpt CT surgery referral -On diuretics -Pulm consulted -01/01: Discussed with pulm yesterday evening and given that she is improving fairly quickly again it is unclear if inpatient to inpatient transfer is necessary. Started back on Eliquis. Appreciate pulm recs, continue to IV diuresis and wean BiPAP as tolerated. Continue nebs -01/02: Continuing IV diuresis and AVAPS #Hx chronic HfpEF/mod pulm HTN/recent PE's/bronchiectasis -On bipap, IV bumex ordered -Eliquis changed to heparin gtt in the event she may need intervention for effusions -Pulmonology to eval -01/01: Switch back to Eliquis #Paroxysmal A-fib -Amio, Eliquis #Leukocytosis -Presentation white count was 18,100 and white count earlier in the same day was 12,200. -This a.m. 13 -01/01: Improving, do not suspect repeated infection that would necessitate further antibiotics -01/02: Is quite variable. Likely reactive, afebrile. Will add Pro-Supa in the a.m. if not improving with current measures #Acute on chronic thrombocytosis -Likely reactive, trend. -Did downtrend in the a.m. -01/01: Variable, continue iron #Chronic anemia -Stable -EGD 12/21 w/ intact gastrostomy w/ gtube and single bleeding angiodysplastic lesion in stomach treated w/ heater probe -Transfuse if <7 -Started on PO iron last admission -Will need outpt colonoscopy and capsule endoscopy #hx CAD s/p stents -CIH-NNB-Cuaacy RCA w/ 3.0 x 20 mm Synergy Stent and Prox-Mid RCA w/ 3.5 x 24 mm Synergy Stent 06/18/2020 -Was on triple therapy, only on eliquis and asa on d/c #Dysphagia/severe protein calorie malnutrition -PEG tube placed 11/30/2022 after she required intubation during hospitalization from 11/21/2022 to 11/27/2022 and had persistent dysphagia.? Continues to maintain nutrition via PEG tube -With tube feeding. Dietitian consult for recommendation. #Stage III decubitus ulcer -Apply wet-to-dry dressing. Wound care consult. #Hypothyroidism -Continue Synthroid #DVT prophylaxis/history of PE On Eliquis. Charges/Coding Visit Charges Inpatient E&M: 66645 Subs Hosp L2
[2023-01-02 08:16] LABS: Differential Indicated SCAN CRITERIA MET
[2023-01-02 08:18] LABS: Platelet Count 753 K/mm3 (150-450)
[2023-01-02 08:33] LABS: ALB/GLOB Ratio 0.5 RATIO (0.9-2.4); AST(SGOT) 18 U/L (15-37); Alanine Aminotransfer ALT/SGPT 25 U/L (13-56); Alkaline Phosphatase 97 U/L (45-117); Anion Gap 3 (5-15); BUN 29 mg/dL (7-18); BUN/Creat Ratio 106.2 RATIO (10-20); Calcium,Total 8.4 mg/dL (8.5-10.1); Chloride 93 mmol/L (98-107); Creatinine, Serum 0.27 mg/dL (0.55-1.02); EST Glomerular Filtration Rate 264 mL/min (>60); Est Glom Filt Rate - Afr Amer 319 mL/min (>60); Estimated Creatinine Clearance 147.57 ml/min; Globulin 4.2 g/dL (2.2-4.2); Glucose 107 mg/dL (74-106); Potassium 3.6 mmol/L (3.5-5.1); Protein, Total 6.2 g/dL (6.4-8.2); Sodium Level 137 mmol/L (136-145)
[2023-01-02] MEDS: Juven (unflavored) Packet 1 PACKET GT ×2 (09:12→18:09)
[2023-01-02] MEDS: Lansoprazole 15 MG Capsule.DR 30 MG GT (09:13)
[2023-01-02] MEDS: Aspirin 81 MG TAB.CHEW GT (09:13)
[2023-01-02] MEDS: Amiodarone 200 MG Tablet GT (09:13)
[2023-01-02] MEDS: APIXABAN 5 MG TABLET GT ×2 (09:14→22:49)
[2023-01-02] MEDS: Bumetanide 1 MG/4 ML Vial IV ×2 (09:14→18:10)
[2023-01-02] MEDS: Jevity 1.5. 1,000 ML Bottle 180 ML GT ×5 (09:14→22:50)
[2023-01-02] MEDS: Iron Polysaccharide Complex 150 MG CAPSULE GT (09:15)
[2023-01-02] MEDS: Potassium Chloride Oral Tablet 20 MEQ GT (09:15)
[2023-01-02] MEDS: Montelukast 10 MG Tablet GT (09:16)
[2023-01-02] MEDS: Acetaminophen 650 MG/20 ML UDC GT ×2 (11:31→22:47)
[2023-01-02] MEDS: LORazepam 0.5 MG Tablet GT ×2 (11:31→22:48)
--- NOTE | 2023-01-02 11:33 | CPS ---
Per pt's nurse Dr Peterson had changed Bipap settings,EPAP was down to 7 and Rate was increased to 18. Min P was at 14 from 16. Per this therapist the Fio2 was decreased to 50% with a saturation of 94%. Pt's nurse was made aware of O2 change.
[2023-01-02 11:37] LABS: Anisocytosis 2+; Differential Comment SCANNED; Hypochromasia 1+; Macrocytosis 1+; Microcytosis 1+; Platelet Estimate MKD INC (ADEQ); Platelet Morphology LARGE
--- NOTE | 2023-01-02 11:39 | CPS ---
Pt stated she felt like she was struggling. Pt was placed back on previous EPAP of 12 and minP of 16. Pt states she felt better.
--- NOTE | 2023-01-02 11:56 | PCM.PN.INT ---
Assessment & Plan Assessment/Plan (1) Acute and chronic respiratory failure with hypoxia: PLAN: Patient had another episode of flash pulmonary edema, resolved after Lasix yesterday and resumption of AVAPS ventilation continuously. - -New AVAPS settings entered in the computer - Adjust as needed - I will follow-up tomorrow - Consider brief breaks on high flow nasal cannula O2 as tolerated. - DNR CCA DNI. PLAN: Plan This note was generated with [employer] dictation software. It may contain incorrect words, spelling, context and punctuation that were not noted in checking the note before signing. Care time spent with patient at bedside, review of documentation, lab results, radiology and other test results, discussion with colleagues and ancillary staff, clinical management of patient, was 40 minutes. CPT code 36194. Subjective Subjective Getting enough air, minimal cough, dry mucouc membranes on AVAPS mode noninvasive ventilation continuously since yesterday. No chest pain, tolerating mask on face. CHronically very tenuous respiratory status, per Dr. Mcelroy patient worsened yesterday with need for continuous AVAPS, but better today. At the bedside, I was able to wean FiO2 75%-->45% and decrease NIV pressures for comfort. New orders entered. Objective Data Objective Data Pertinent data in EMR and below was personally reviewed, and case discussed with hospitalist. Overnight, I asked the hospitalist to give 40mg IV lasix x 1 due to I/O positive trend lately. Vital Signs: Vital Signs Temp Pulse Resp BP Pulse Ox O2 Del Method O2 Flow Rate 98.2 F 103 H 27 H 104/64 100 Bi-pap 6 01/02/23 11:43 01/02/23 11:43 01/02/23 11:43 01/02/23 11:43 01/02/23 11:43 01/02/23 11:43 01/01/23 07:19 FiO2 50 01/02/23 11:43 Current AVAPS settings 01/02/23: Vt 350, rate 18, EPAP 7, PS min 14, PS max 24, FiO2 45%, which produced a SRR 25-31, Vt 362cc, Ve 11.6, Respiratory was asked via nursing to try breaks on high flow nasal O2 (goal SpO2 >92%.) Oxygen Flow Rate (L/min) 6 Oxygen Delivery Method Bi-pap Weight: 99 lb 3.328 oz Body Mass Index (BMI) 20.8 Intake & Output: Intake and Output for Last 24 Hours 12/31/22 01/01/23 01/02/23 23:59 23:59 23:59 Intake Total 610.96 / 610.96 767.93 / 767.93 360 / 360 Balance 610.96 / 610.96 767.93 / 767.93 360 / 360 Medical Nutrition Assessment Dietitian: Malnutrition Criteria Met Start: 12/31/22 09:54 Freq: Status: Active Protocol: Document 12/31/22 09:54 AG (Rec: 12/31/22 09:54 [id number]) Nutrition Malnutrition Evidence of Malnutrition Exists Yes Malnutrition (severe): Chronic Evidenced By Suboptimal Energy Intake ( Severe),Physical Changes ( Severe) Clinical Problem Chronic Disease or Condition Related Malnutrition Etiology chronic severe malnutrition related to inadequate energy intake Signs/Symptoms as evidenced by as evidenced by estimated PO intake meeting <75% of estimated energy needs > 3 months, severe fat/ muscle wasting per physical exam in orbital, temporal, clavicle, and acromion areas Status Active Problem Recommendation Dietitian Recommendations/Changes 1) Bolus feeds via PEG- Jevity 1.5 180mL bolus 5x/day w/ 60mL H2O flush before and after each bolus to provide 1350 calories, 57 g protein, and 1284mL fluid/day. 2) John BID via PEG. 3) Daily wts. Lab / Micro Data Attestation: I reviewed the patient's lab results. Result Diagrams: 01/02/23 07:00 01/02/23 07:00 Labs: Laboratory Results - last 24 hr 01/01/23 06:57: Phosphorus 2.7, Magnesium 2.3 01/02/23 07:00: WBC 16.7 H, RBC 3.16 L, Hgb 7.8 L, Hct 27.6 L, MCV 87.3, MCH 24.7 L, MCHC 28.3 L, RDW Std Deviation 76.0 H, RDW Coeff of Angie 24.1 H, Plt Count 753 H*, MPV 10.3, Immature Gran % (Auto) 0.700, Neut % (Auto) 90.0 H, Lymph % (Auto) 1.7 L, [place] % (Auto) 7.0, Eos % (Auto) 0.2, Baso % (Auto) 0.4, Absolute Neuts (auto) 15.0 H, Absolute Lymphs (auto) 0.29 L, Nucleated RBC % 0, Differential Comment SCANNED, Diff Path Review May foll, Platelet Estimate MKD INC, Plt Morphology Comment LARGE, Hypochromasia 1+, Anisocytosis 2+, Microcytosis 1+, Macrocytosis 1+ 01/02/23 07:00: Sodium 137, Potassium 3.6, Chloride 93 L, Carbon Dioxide 41.0 H, Anion Gap 3 L, BUN 29 H, Creatinine 0.27 L, Estim Creat Clear Calc 147.57, Est GFR (MDRD) Af Amer 319, Est GFR (MDRD) Non-Af 264, BUN/Creatinine Ratio 106.2 H, Glucose 107 H, Calcium 8.4 L, Total Bilirubin 0.20, AST 18, ALT 25, Alkaline Phosphatase 97, Total Protein 6.2 L, Albumin 2.0 L, Globulin 4.2, Albumin/Globulin Ratio 0.5 L Micro: Microbiology 12/30/22 23:10 Blood Culture (Wb) - Anticubital Right Blood Culture - Preliminary No growth in 48 hours. 12/30/22 23:05 Blood Culture (Wb) - Anticubital Left Blood Culture - Preliminary No growth in 48 hours. Radiography Diagnostic Testing: Radiology Impression Chest X-Ray 01/01/23 15:40 IMPRESSION: Pulmonary findings appear improved. Electronically Signed: Gee Cloud MD at 16:44 EDT Reading Location ID and State: [facility] / [place] , Service support , Physical Exam Narrative Well-developed slender, moderate chronic respiratory distress on BiPAP, Appears chronically ill, BMI is 20.7. Extremely weak diffusely. Able to talk softly, audible with a stethoscope through BiPAP mask. She is awake alert and coherent. HEENT dry mucous membranes, no abrasion at the mask sites Chest is diminished but clear bilaterally with no wheezes rales or rhonchi, very poor air movement, weak cough. No secretions Heart tachycardic S1-S2 with no murmurs Abdomen is soft, nontender. PEG tube is currently not being used, secured and clean, no erythema or purulence at entry site. Bowel sounds positive. Extremities have no clubbing cyanosis or edema except for mild foot edema, 1+ Neuro diffusely weak, nonfocal
--- NOTE | 2023-01-02 11:58 | CPS ---
Pt was placed back at 12 for rate. Nurse aware of changes
--- NOTE | 2023-01-02 12:10 | CPS ---
Dr Peterson was txt a message at 1209 pm in regards to placing pt back on previous AVAP settings.
--- NOTE | 2023-01-02 12:46 | CASEMGMT ---
Social Work POA for Healthcare in summary tab of echart, w/living will provision initialed. Lavon Everett listed as Healthcare POA. ADELAIDA Vogt
[2023-01-02] MEDS: Furosemide 40 MG/4 ML Vial IV (13:01)
--- NOTE | 2023-01-02 15:39 | CPS ---
FIO2 decreased to 40%, Saturation 99%. Nurse aware of change
[2023-01-02] MEDS: Atorvastatin Calcium 40 MG Tablet GT (22:49)
[2023-01-02] MEDS: Nystatin Powder 15gm Bottle 1 APPLIC TOPICAL (22:50)
[2023-01-03] VITALS (17 sets, daily range): BP systolic 95–120; BP diastolic 65–73; PULSE 88–100; RESP 12–32; TEMP 36.3–36.9; O2SAT 88–100; BMI 20.7
[2023-01-03] MEDS: guaiFENesin 10 ML UDC (200MG/10ML) GT ×5 (00:53→23:47)
[2023-01-03 05:24] LABS: Absolute Lymphocyte Count 0.42 X10^3/uL (0.83-4.51); Absolute Neutrophil Count 11.8 X10^3/uL (2.0-7.7); Basophil# 0.05 X10^3/uL; Basophil% 0.4 % (0-1); Eosinophil# 0.11 X10^3/uL; Eosinophils% 0.8 % (0-5); Hematocrit 26.7 % (37-47); Hemoglobin 7.6 g/dL (12.0-15.0); Lymphocyte # 0.42 X10^3/ul (0.83-4.51); Lymphocyte % 3.1 % (19-41); Mean Corp Hgb Conc 28.5 g/dL (32-36); Mean Corpuscular Hgb 24.9 pg (27.0-32.0); Mean Corpuscular Volume 87.5 fL (81-99); Monocyte# 1.07 X10^3/uL; Monocyte% 7.9 % (0-10); NRBC Flagged by Analyzer 0 % (0-5); Neutrophil # 11.78 X10^3/uL (2.7-7.7); Neutrophil % 87.4 % (47-70); POSITIVE DIFFERENTIAL YES; POSITIVE MORPHOLOGY YES; Platelet Count 684 K/mm3 (150-450); RBC Distribution Width CV 23.7 % (11.6-14.6); RBC Distribution Width SD 74.9 fl (35.1-43.9); Red Blood Count 3.05 M/mm3 (4.2-5.4); White Blood Count 13.5 K/mm3 (4.4-11.0)
[2023-01-03 05:54] LABS: Differential Indicated SCAN CRITERIA MET
[2023-01-03] MEDS: Levothyroxine 88 MCG Tablet 132 MCG GT (06:13)
[2023-01-03] MEDS: busPIRone 5 MG Tablet PO ×3 (06:13→21:30)
[2023-01-03] MEDS: Nystatin Powder 15gm Bottle 1 APPLIC TOPICAL ×3 (06:13→21:30)
[2023-01-03 06:15] LABS: ALB/GLOB Ratio 0.5 RATIO (0.9-2.4); AST(SGOT) 20 U/L (15-37); Alanine Aminotransfer ALT/SGPT 24 U/L (13-56); Alkaline Phosphatase 95 U/L (45-117); Anion Gap 3 (5-15); BUN 26 mg/dL (7-18); BUN/Creat Ratio 73.7 RATIO (10-20); Calcium,Total 8.1 mg/dL (8.5-10.1); Chloride 91 mmol/L (98-107); Creatinine, Serum 0.35 mg/dL (0.55-1.02); EST Glomerular Filtration Rate 196 mL/min (>60); Est Glom Filt Rate - Afr Amer 237 mL/min (>60); Estimated Creatinine Clearance 113.84 ml/min; Glucose 106 mg/dL (74-106); Potassium 3.3 mmol/L (3.5-5.1); Sodium Level 139 mmol/L (136-145)
[2023-01-03 06:28] LABS: Anisocytosis 1+; Differential Comment SCANNED; Hypochromasia 1+
[2023-01-03] MEDS: LORazepam 0.5 MG Tablet GT ×3 (06:31→21:52)
[2023-01-03] MEDS: Ipratropium/Albuterol Sulfate 3 ML AMPUL.NEB INHALATION ×4 (06:57→19:22)
[2023-01-03] MEDS: Budesonide Respules 0.5 MG/2 ML AMPUL.NEB. INHALATION ×2 (06:57→19:27)
[2023-01-03] MEDS: Iron Polysaccharide Complex 150 MG CAPSULE GT (07:57)
[2023-01-03] MEDS: Juven (unflavored) Packet 1 PACKET GT ×2 (07:57→17:07)
[2023-01-03] MEDS: Jevity 1.5. 1,000 ML Bottle 180 ML GT ×5 (07:57→23:48)
[2023-01-03] MEDS: Aspirin 81 MG TAB.CHEW GT (07:57)
--- NOTE | 2023-01-03 09:13 | CPS ---
called to pt's room for saturation of 79%. FIO2 was increased to 85% and saturation up to 93%.
[2023-01-03] MEDS: Bumetanide 1 MG/4 ML Vial IV ×2 (10:12→17:07)
[2023-01-03] MEDS: Potassium Chloride 10mEq/100mL 10 MEQ/100 ML IV.SOLN. 100 MEQ IV BOLUS (10:15)
[2023-01-03] MEDS: Lansoprazole 15 MG Capsule.DR 30 MG GT (10:18)
[2023-01-03] MEDS: APIXABAN 5 MG TABLET GT ×2 (10:19→21:30)
[2023-01-03] MEDS: Potassium Chloride Oral Tablet 20 MEQ GT (10:20)
[2023-01-03] MEDS: Amiodarone 200 MG Tablet GT (10:20)
[2023-01-03] MEDS: Montelukast 10 MG Tablet GT (10:21)
--- NOTE | 2023-01-03 11:09 | PCM.PN.INT ---
Assessment & Plan Assessment/Plan (1) BiPAP (biphasic positive airway pressure) dependence: (2) Respiratory failure: (3) Acute and chronic respiratory failure with hypoxia: PLAN: Plan Unsuccessful trial yesterday to wean her BiPAP settings slightly, and giving her high flow nasal cannula breaks. She was unable to tolerate even the change of EPAP to 7 cm and PS minimum of 14. She remains on full AVAPS support. The etiology of her respiratory failure remains uncertain; suspicion of amyloid remains but she is too sick to undergo bronchoscopy and biopsy. Very guarded prognosis, patient's respiratory status can deteriorate at any time Continue current support until patient decides she like to transition to comfort care. If she passes, an autopsy is recommended. No changes made in her ventilator settings at this time. We will continue to follow her, please call if acute input is needed. Navi Peterson MD [facility] [place] Subjective Subjective Patient encountered sleeping on entering her room, she awakened and nodded appropriately with light touch and voice. She is still able to write notes legibly on her bedside writing pad. She feels that she is getting enough air, no cough nausea vomiting or chest discomfort. Objective Data Objective Data Vital Signs: Vital Signs Temp Pulse Resp BP Pulse Ox O2 Del Method O2 Flow Rate 97.6 F L 96 30 H 99/71 93 Bi-pap 60 01/03/23 08:56 01/03/23 09:05 01/03/23 09:05 01/03/23 08:56 01/03/23 09:05 01/03/23 08:56 01/02/23 20:00 FiO2 85 01/03/23 09:05 The patient is on AVAPS noninvasive ventilation, not BiPAP. Has been continuously on NIV since I saw her yesterday, respiratory had to increase her EPAP back to 12 and her FiO2 back to 85% with PS minimum of 16 due to air hunger. On the settings today, minute ventilation is 10.1, tidal volume 267 cc, peak inspiratory pressure 18, spontaneous respiratory rate 36. Saturation is 99%. Oxygen Flow Rate (L/min) 60 Oxygen Delivery Method Bi-pap Weight: 98 lb 8.746 oz Body Mass Index (BMI) 20.7 Intake & Output: Intake and Output for Last 24 Hours 01/01/23 01/02/23 01/03/23 23:59 23:59 23:59 Intake Total 767.93 / 767.93 740 / 740 120 / 120 Balance 767.93 / 767.93 740 / 740 120 / 120 Medical Nutrition Assessment Dietitian: Malnutrition Criteria Met Start: 12/31/22 09:54 Freq: Status: Active Protocol: Document 12/31/22 09:54 AG (Rec: 12/31/22 09:54 AG [id number]) Nutrition Malnutrition Evidence of Malnutrition Exists Yes Malnutrition (severe): Chronic Evidenced By Suboptimal Energy Intake ( Severe),Physical Changes ( Severe) Clinical Problem Chronic Disease or Condition Related Malnutrition Etiology chronic severe malnutrition related to inadequate energy intake Signs/Symptoms as evidenced by as evidenced by estimated PO intake meeting <75% of estimated energy needs > 3 months, severe fat/ muscle wasting per physical exam in orbital, temporal, clavicle, and acromion areas Status Active Problem Recommendation Dietitian Recommendations/Changes 1) Bolus feeds via PEG- Jevity 1.5 180mL bolus 5x/day w/ 60mL H2O flush before and after each bolus to provide 1350 calories, 57 g protein, and 1284mL fluid/day. 2) John BID via PEG. 3) Daily wts. Lab / Micro Data Attestation: I reviewed the patient's lab results. Result Diagrams: 01/03/23 05:05 01/03/23 05:05 Labs: Laboratory Results - last 24 hr 01/02/23 07:00: Differential Comment SCANNED, Diff Path Review December kaitlin, Platelet Estimate MKD INC, Plt Morphology Comment LARGE, Hypochromasia 1+, Anisocytosis 2+, Microcytosis 1+, Macrocytosis 1+ 01/03/23 05:05: WBC 13.5 H, RBC 3.05 L, Hgb 7.6 L, Hct 26.7 L, MCV 87.5, MCH 24.9 L, MCHC 28.5 L, RDW Std Deviation 74.9 H, RDW Coeff of Angie 23.7 H, Plt Count 684 H, MPV 10.0, Immature Gran % (Auto) 0.400, Neut % (Auto) 87.4 H, Lymph % (Auto) 3.1 L, Ashley % (Auto) 7.9, Eos % (Auto) 0.8, Baso % (Auto) 0.4, Absolute Neuts (auto) 11.8 H, Absolute Lymphs (auto) 0.42 L, Nucleated RBC % 0, Differential Comment SCANNED, Hypochromasia 1+, Anisocytosis 1+ 01/03/23 05:05: Sodium 139, Potassium 3.3 L, Chloride 91 L, Carbon Dioxide 45.0 H, Anion Gap 3 L, BUN 26 H, Creatinine 0.35 L, Estim Creat Clear Calc 113.84, Est GFR (MDRD) Af Amer 237, Est GFR (MDRD) Non-Af 196, BUN/Creatinine Ratio 73.7 H, Glucose 106, Calcium 8.1 L, Total Bilirubin 0.20, AST 20, ALT 24, Alkaline Phosphatase 95, Total Protein 6.0 L, Albumin 2.0 L, Globulin 4.0, Albumin/Globulin Ratio 0.5 L 01/03/23 05:05: Procalcitonin 0.10 H Micro: Microbiology 12/30/22 23:10 Blood Culture (Wb) - Anticubital Right Blood Culture - Preliminary No growth in 48 hours. 12/30/22 23:05 Blood Culture (Wb) - Anticubital Left Blood Culture - Preliminary No growth in 48 hours. Physical Exam Narrative 8 system exam unchanged from yesterday, appears tired and weaker. Lungs remain clear. No cough during visit.
--- NOTE | 2023-01-03 11:28 | CPS ---
Rt applied multiple duoderms to pt cheeks. Skin is red and looks irritated. RT did notice some open red spots up by pt eye. Rt told charge master coordinator about this. Readjusted mask as well to try and help the sore spots.
--- NOTE | 2023-01-03 12:47 | PCM.PN.HOSP ---
Reason for Visit Reason for Visit: Diagnoses Unspecified diastolic (congestive) heart failure (12/30/22) Acute pulmonary edema (12/30/22) Acute and chronic respiratory failure with hypoxia (12/30/22) Respiratory failure, unspecified, unspecified whether with hypoxia or hypercapnia (12/30/22) Pressure ulcer of unspecified site, unspecified stage (12/30/22) Dependence on other enabling machines and devices (12/30/22) Subjective Subjective Resting on AVAPS, this a.m. was resting comfortably but continues to have intermittent desats with variable AVAPS requirement Objective Data Objective Data Vital Signs: Vital Signs Temp Pulse Resp BP Pulse Ox O2 Del Method O2 Flow Rate 98.3 F 99 32 H 120/68 91 Bi-pap 70 01/03/23 12:00 01/03/23 12:00 01/03/23 12:00 01/03/23 12:00 01/03/23 12:05 01/03/23 12:05 01/03/23 12:00 FiO2 75 01/03/23 12:05 Oxygen Flow Rate (L/min) 70 Oxygen Delivery Method Bi-pap Weight: 44.7 kg Body Mass Index (BMI) 20.7 Intake & Output: Intake and Output for Last 24 Hours 01/01/23 01/02/23 01/03/23 23:59 23:59 23:59 Intake Total 767.93 / 767.93 740 / 740 780 / 780 Balance 767.93 / 767.93 740 / 740 780 / 780 Medical Nutrition Assessment Dietitian: Malnutrition Criteria Met Start: 12/31/22 09:54 Freq: Status: Active Protocol: Document 12/31/22 09:54 AG (Rec: 12/31/22 09:54 [id number]) Nutrition Malnutrition Evidence of Malnutrition Exists Yes Malnutrition (severe): Chronic Evidenced By Suboptimal Energy Intake ( Severe),Physical Changes ( Severe) Clinical Problem Chronic Disease or Condition Related Malnutrition Etiology chronic severe malnutrition related to inadequate energy intake Signs/Symptoms as evidenced by as evidenced by estimated PO intake meeting <75% of estimated energy needs > 3 months, severe fat/ muscle wasting per physical exam in orbital, temporal, clavicle, and acromion areas Status Active Problem Recommendation Dietitian Recommendations/Changes 1) Bolus feeds via PEG- Jevity 1.5 180mL bolus 5x/day w/ 60mL H2O flush before and after each bolus to provide 1350 calories, 57 g protein, and 1284mL fluid/day. 2) John BID via PEG. 3) Daily wts. Lab / Micro Data Result Diagrams: 01/03/23 05:05 01/03/23 05:05 Labs: Laboratory Results - last 24 hr 01/03/23 05:05: WBC 13.5 H, RBC 3.05 L, Hgb 7.6 L, Hct 26.7 L, MCV 87.5, MCH 24.9 L, MCHC 28.5 L, RDW Std Deviation 74.9 H, RDW Coeff of Angie 23.7 H, Plt Count 684 H, MPV 10.0, Immature Gran % (Auto) 0.400, Neut % (Auto) 87.4 H, Lymph % (Auto) 3.1 L, Glynn % (Auto) 7.9, Eos % (Auto) 0.8, Baso % (Auto) 0.4, Absolute Neuts (auto) 11.8 H, Absolute Lymphs (auto) 0.42 L, Nucleated RBC % 0, Differential Comment SCANNED, Hypochromasia 1+, Anisocytosis 1+ 01/03/23 05:05: Sodium 139, Potassium 3.3 L, Chloride 91 L, Carbon Dioxide 45.0 H, Anion Gap 3 L, BUN 26 H, Creatinine 0.35 L, Estim Creat Clear Calc 113.84, Est GFR (MDRD) Af Amer 237, Est GFR (MDRD) Non-Af 196, BUN/Creatinine Ratio 73.7 H, Glucose 106, Calcium 8.1 L, Total Bilirubin 0.20, AST 20, ALT 24, Alkaline Phosphatase 95, Total Protein 6.0 L, Albumin 2.0 L, Globulin 4.0, Albumin/Globulin Ratio 0.5 L 01/03/23 05:05: Procalcitonin 0.10 H Micro: Microbiology 12/30/22 23:10 Blood Culture (Wb) - Anticubital Right Blood Culture - Preliminary No growth in 48 hours. 12/30/22 23:05 Blood Culture (Wb) - Anticubital Left Blood Culture - Preliminary No growth in 48 hours. Physical Exam Narrative General: Wakes up with prompting, appears tired HEENT: Atraumatic, normocephalic Eyes: Anicteric, normal conjunctiva, extraocular movements grossly intact Neck: Supple Respiratory: On AVAPS, diminished bilaterally Cardiovascular: Regular rate and rhythm GI: Soft, nontender, nondistended Extremities: Fairly stable lower extremity edema Musculoskeletal: Moving all extremities Neuro: No overt focal neurological deficits Skin: No rashes appreciated Psych: Cooperative Assessment & Plan Assessment/Plan (1) Heart failure with preserved ejection fraction: (2) Flash pulmonary edema: (3) Decubitus ulcer: PLAN: Plan #Shortness of breath presumed to be secondary to Acute on chronic heart failure with preserved ejection fraction/flash pulm edema/? COPD -Discharged earlier the same day of presentation after admission for acute on chronic hypoxic respiratory failure secondary to aspiration pneumonia with possible flash pulmonary edema complicated by recurrent pleural effusions -She had been stabilized on BiPAP nightly and was weaned down to 4 L of O2 at rest and vitals immediately prior to discharge showed a pulse rate of 96 with a BP of 97/62, respiratory rate 19 and her pulse ox was 100% on 3 L nasal cannula -Re-presented with shortness of breath and was placed on AVAPS in the ED, presenting vitals in ED with heart rate of 114, blood pressure 102/67 with a respiratory rate of 26 and 92% on 6 L -Chest x-ray demonstrated bilateral pleural effusions though does have chronic effusions but x-ray appeared worse than 2 days prior, may need CT scan to better evaluate depending on progression -BNP 90, was 200 on arrival last admission -Daily weights, I's and O's -Was placed on IV Bumex and pulmonology consulted -11/23/22: Estimated ejection fraction of 70%. Unable to assess diastolic dysfunction per report. Pulmonary artery systolic pressure 55 to 60 mmHg. -Kerlix roll and to bilateral lower extremities -Fluid restriction of 1500 mls daily -N.p.o. -Resume Robitussin, budesonide, nebs -May need inpatient transfer for CT surgery evaluation. -01/01: Improved quickly and was 100% on BiPAP but had trial on nasal cannula and then required going back on BiPAP due to tachypnea which then caused O2 sat to drop. Discussed with puljesus manuel yesterday evening and given that she is improving fairly quickly again it is unclear if inpatient to inpatient transfer is necessary. Started back on Eliquis. Appreciate puljesus manuel recs, continue to IV diuresis and wean BiPAP as tolerated. Continue nebs -01/02: O2 sats improving but primarily struggling with tachypnea. Patient very fixated on Ativan however suspect this is a cyclical process as it does help with her work of breathing however she is more anxious because she is waiting and anxious about her next dose of Ativan, discussed this with her son and have discussed with patient multiple times the balance between treating the anxiety and helping with the tachypnea with not depleting her respiratory drive and potentially worsening her clinical picture. Remains on diuretics. Chest x-ray yesterday with pulmonary findings appearing improved. Pulmonology saw today and adjusted AVAPS settings -01/03: Appears volume status has improved however still BiPAP dependent, on review of old records she is to follow with [facility] and several years ago had an FEV1 of 53% and significant COPD, will give IV steroids and azithromycin to see if this will lead to any improvement. Breath sounds diminished bilaterally with no wheezing but this may just be due to to severity and difficult to assess cough as she has been completely dependent upon the AVAPS #recurrent pleural effusions -Had previous VATS and pleurodesis on the right and in 2019 had Pleurx catheter on the left -Two admissions ago had R thoracentesis 11/26/22 w/ removal of 525cc stephen colored fluid -pulmonology was following last admission and ultimately decided against further intervention with effusion at this time with plans to optimize clinically/medically w/ outpt CT surgery referral -On diuretics -Pulm consulted -01/01: Discussed with pulm yesterday evening and given that she is improving fairly quickly again it is unclear if inpatient to inpatient transfer is necessary. Started back on Eliquis. Appreciate pulm recs, continue to IV diuresis and wean BiPAP as tolerated. Continue nebs -01/02: Continuing IV diuresis and AVAPS #Hx chronic HfpEF/mod pulm HTN/recent PE's/bronchiectasis -On bipap, IV bumex ordered -Eliquis changed to heparin gtt in the event she may need intervention for effusions -Pulmonology to eval -01/01: Switch back to Eliquis #Paroxysmal A-fib -Amio, Eliquis #Leukocytosis -Presentation white count was 18,100 and white count earlier in the same day was 12,200. -This a.m. 13 -01/01: Improving, do not suspect repeated infection that would necessitate further antibiotics -01/02: Is quite variable. Likely reactive, afebrile. Will add Pro-Supa in the a.m. if not improving with current measures -01/03: Do not have high suspicion for infection, continue to monitor for need for antibiotics #Acute on chronic thrombocytosis -Likely reactive, trend. -Did downtrend in the a.m. -01/01: Variable, continue iron #Chronic anemia -Stable -EGD 12/21 w/ intact gastrostomy w/ gtube and single bleeding angiodysplastic lesion in stomach treated w/ heater probe -Transfuse if <7 -Started on PO iron last admission -Will need outpt colonoscopy and capsule endoscopy #hx CAD s/p stents -DOJ-LFQ-Dpejzk RCA w/ 3.0 x 20 mm Synergy Stent and Prox-Mid RCA w/ 3.5 x 24 mm Synergy Stent 06/18/2020 -Was on triple therapy, only on eliquis and asa on d/c #Dysphagia/severe protein calorie malnutrition -PEG tube placed 11/30/2022 after she required intubation during hospitalization from 11/21/2022 to 11/27/2022 and had persistent dysphagia.? Continues to maintain nutrition via PEG tube -With tube feeding. Dietitian consult for recommendation. #Stage III decubitus ulcer -Apply wet-to-dry dressing. Wound care consult. #Hypothyroidism -Continue Synthroid #DVT prophylaxis/history of PE On Eliquis. Charges/Coding Visit Charges Inpatient E&M: 52400 Subs Hosp L2
--- NOTE | 2023-01-03 12:55 | CPS ---
1210 Called to pt's room for pt desaturation and to refit Bipap mask. Upon entering room Pt's saturation was 91-92%. Mask was readjusted to eliminate audible leak. Nurse was notified and asked that this therapist change mask. Nurse was informed that there was no other option of mask to place on pt. Charge nurse and pt's nurse were shown the next size mask down and explained why the mask was not going to be an option. Both nurses agreed when they were shown that the next size down would not be suitable for pt.
[2023-01-03] MEDS: Acetaminophen 650 MG/20 ML UDC GT ×2 (13:19→21:52)
[2023-01-03] MEDS: MethylPREDNISolone 125 MG/2 ML Vial IV (14:50)
--- NOTE | 2023-01-03 17:24 | CPS ---
Called to pt's room to adjust Bipap mask. Pt's saturation was 85-86%. Pt was increased to 80% and saturation came up to 93%. Nurse aware
[2023-01-03] MEDS: Atorvastatin Calcium 40 MG Tablet GT (21:30)
[2023-01-03] MEDS: 0.9% Saline Lock 10 ML Syringe IV (23:47)
[2023-01-03] MEDS: MethylPREDNISolone 125 MG/2 ML Vial 60 MG IV (23:47)
[2023-01-04] VITALS (21 sets, daily range): BP systolic 99–108; BP diastolic 63–73; PULSE 85–96; RESP 14–32; TEMP 36–36.5; O2SAT 75–100; BMI 20.4
[2023-01-04] MEDS: Ipratropium/Albuterol Sulfate 3 ML AMPUL.NEB INHALATION ×3 (00:03→07:02)
[2023-01-04 04:42] LABS: Absolute Lymphocyte Count 0.13 X10^3/uL (0.83-4.51); Basophil# 0.01 X10^3/uL; Basophil% 0.1 % (0-1); Hematocrit 27.9 % (37-47); Hemoglobin 7.9 g/dL (12.0-15.0); Lymphocyte # 0.13 X10^3/ul (0.83-4.51); Lymphocyte % 1.3 % (19-41); Mean Corp Hgb Conc 28.3 g/dL (32-36); Mean Corpuscular Hgb 24.7 pg (27.0-32.0); Mean Corpuscular Volume 87.2 fL (81-99); Mean Platelet Vol. 10.3 fl (6.2-12.0); Monocyte# 0.08 X10^3/uL; Monocyte% 0.8 % (0-10); NRBC Flagged by Analyzer 0 % (0-5); Neutrophil # 10.01 X10^3/uL (2.7-7.7); POSITIVE COUNT YES; POSITIVE DIFFERENTIAL YES; POSITIVE MORPHOLOGY YES; RBC Distribution Width CV 22.9 % (11.6-14.6); RBC Distribution Width SD 72.4 fl (35.1-43.9); White Blood Count 10.3 K/mm3 (4.4-11.0)
[2023-01-04 05:00] LABS: Differential Indicated SCAN CRITERIA MET; Platelet Count 763 K/mm3 (150-450)
[2023-01-04] MEDS: guaiFENesin 10 ML UDC (200MG/10ML) GT ×4 (05:10→23:57)
[2023-01-04] MEDS: MethylPREDNISolone 125 MG/2 ML Vial 60 MG IV ×4 (05:10→23:57)
[2023-01-04] MEDS: Jevity 1.5. 1,000 ML Bottle 180 ML GT ×5 (05:11→22:18)
[2023-01-04] MEDS: 0.9% Saline Lock 10 ML Syringe IV ×8 (05:11→23:57)
[2023-01-04] MEDS: Levothyroxine 88 MCG Tablet GT (05:11)
[2023-01-04] MEDS: Nystatin Powder 15gm Bottle 1 APPLIC TOPICAL ×2 (05:11→22:18)
[2023-01-04] MEDS: busPIRone 5 MG Tablet PO ×3 (05:11→22:17)
[2023-01-04 05:15] LABS: Anisocytosis 2+; Platelet Estimate MKD INC (ADEQ)
[2023-01-04 05:30] LABS: ALB/GLOB Ratio 0.4 RATIO (0.9-2.4); AST(SGOT) 29 U/L (15-37); Alanine Aminotransfer ALT/SGPT 28 U/L (13-56); Albumin, Serum 2.1 g/dL (3.2-5.0); Alkaline Phosphatase 96 U/L (45-117); BUN 28 mg/dL (7-18); Calcium,Total 8.8 mg/dL (8.5-10.1); Carbon Dioxide > 45.0 mmol/L (21.0-32.0); Chloride 87 mmol/L (98-107); Creatinine, Serum 0.28 mg/dL (0.55-1.02); EST Glomerular Filtration Rate 256 mL/min (>60); Est Glom Filt Rate - Afr Amer 310 mL/min (>60); Estimated Creatinine Clearance 139.77 ml/min; Globulin 4.7 g/dL (2.2-4.2); Glucose 155 mg/dL (74-106); Potassium 3.8 mmol/L (3.5-5.1); Protein, Total 6.8 g/dL (6.4-8.2); Sodium Level 135 mmol/L (136-145)
[2023-01-04] MEDS: LORazepam 2 MG/ML Syringe 0.5 MG IV ×4 (05:55→20:23)
--- NOTE | 2023-01-04 05:55 | EKG12_ITS ---
Test Reason : AM EKG Blood Pressure : / mmHG Vent. Rate : 092 BPM Atrial Rate : 092 BPM P-R Int : 124 ms QRS Dur : 076 ms QT Int : 368 ms P-R-T Axes : 046 018 038 degrees QTc Int : 455 ms Normal sinus rhythm Normal ECG When compared with ECG of 30-DEC-2022 19:45, No significant change was found Confirmed by NABEEL WELCH, RAJESH ([id number]), news editor LIV HOPKINS ([id number]) on 01/05/2023 9:59:13 AM Referred By: Confirmed By:RAJESH LEES MD
[2023-01-04] MEDS: Budesonide Respules 0.5 MG/2 ML AMPUL.NEB. INHALATION ×2 (07:02→19:15)
[2023-01-04] MEDS: Acetaminophen 650 MG/20 ML UDC GT ×2 (08:29→15:41)
[2023-01-04] MEDS: Lansoprazole 15 MG Capsule.DR 30 MG GT (08:29)
[2023-01-04] MEDS: Montelukast 10 MG Tablet GT (08:29)
[2023-01-04] MEDS: Amiodarone 200 MG Tablet GT (08:30)
[2023-01-04] MEDS: APIXABAN 5 MG TABLET GT ×2 (08:30→22:17)
[2023-01-04] MEDS: Potassium Chloride Oral Tablet 20 MEQ GT (08:30)
[2023-01-04] MEDS: Juven (unflavored) Packet 1 PACKET GT ×2 (08:30→15:44)
[2023-01-04] MEDS: Aspirin 81 MG TAB.CHEW GT (08:30)
[2023-01-04] MEDS: Iron Polysaccharide Complex 150 MG CAPSULE GT (08:30)
[2023-01-04 09:00] LABS: Pathologist Review Reviewed
--- NOTE | 2023-01-04 09:08 | CASEMGMT ---
Discharge Planning Updates sent to Parminder Sanchez via [facility]. Asked if she'll be able to return. Emelyn Ulloa
--- NOTE | 2023-01-04 09:30 | CASEMGMT ---
ROSMERY spoke with patient's son Damion per his request. Damion wanted ROSMERY to know that patient does not want to go back to [facility]. They still have the list of nursing homes. Gisella Pires SUPERVISOR [employer]
--- NOTE | 2023-01-04 09:35 | RAD_ITS ---
STUDY: X-RAY CHEST REASON FOR EXAM: Female, 67 years old. Respiratory Failure TECHNIQUE: Single AP portable view of the chest. COMPARISON: Comparison is made with prior study dated January 01, 2023. FINDINGS: EKG electrodes are seen. Mild improvement of the pleural parenchymal changes at the left lung base. Stable pleural parenchymal changes at the right lung base. Normal size heart. Normal mediastinum and agapito. Normal visualized pulmonary arteries. There is atherosclerotic calcification of the aortic arch with tortuosity. Normal visualized thoracic spine. Normal visualized ribs, clavicles, and shoulders. A PEG tube is seen in the left upper quadrant. RAD/Chest 1 View (Portable) IMPRESSION: Slight improvement in the left pleural-parenchymal changes. Stable pleural parenchymal changes at the right lung base. Electronically Signed: Bert Hirsch MD at 13:19 EDT ,
--- NOTE | 2023-01-04 09:50 | CASEMGMT ---
Discharge Planning Updated Parminder Sanchez via [facility] that patient wishes to explore other SNF options. Emelyn Ulloa
--- NOTE | 2023-01-04 10:25 | PN.CC_ITS ---
Assessment & Plan Assessment/Plan (1) Acute and chronic respiratory failure with hypoxia: PLAN: Plan RECOMMENDATIONS: 1. Continue AVAPS therapy and wean FiO2 for saturations greater than 90%. 2. Discontinue DuoNebs and transition to Atrovent aerosols to prevent exacerbation of tachyarrhythmia. 3. Obtain follow-up chest x-ray and ABG. Check BNP. 4. Continue nutritional support via G-tube. 5. Continue Eliquis per home regimen. 6. Hold diuretics, given rising bicarbonate. 7. Consider transfer to tertiary center for cardiothoracic evaluation vs initiation of hospice care services. IMPRESSIONS: 1. Acute on chronic hypoxemic respiratory failure Most likely secondary to flash pulmonary edema. The patient has a known history of underlying bronchiectasis and recurrent pleural effusion, which according to documentation, was previously felt to be cardiac in etiology.? The patient did undergo a VATS and pleurodesis on the right and in 2019 had a Pleurx catheter on the left side in 2019.? The original plan was to allow the patient to improve her nutritional status prior to having an outpatient evaluation by cardiothora cic surgery. However, given patient's repeated hospitalizations, it may be necessary to do a hospital hospital evaluation for cardiothoracic surgery. 2.??History of subsegmental PE with RV dysfunction and pulmonary hypertension Okay to continue Eliquis from my perspective, given stability in the patient's hemoglobin. 3.??COPD with chronic bronchitis Continue scheduled Atrovent aerosols.? 4.??Pulmonary cachexia/hypothyroidism/GERD Complicates care, management, recovery and prognosis.? Continue supportive measures as noted above including tube feeds as tolerated. This note was generated with [employer] dictation software. It may contain incorrect words, spelling, and punctuation that were not noted in checking the note before signing. Subjective Subjective The patient was seen and examined at the bedside this morning. Events from the last 24 hours have been reviewed. The patient is currently afebrile, hemodynamically stable and maintaining appropriate oxygen saturations on AVAPS therapy. The patient was lethargic this morning and unable to provide any history. Her son is present at the bedside. The patient is currently do cumented to be overall net +3.6 L for the hospitalization. Chemistry profile was notable for a bicarbonate of greater than 45. Objective Data Objective Data The patient's most recent lab work, culture data and imaging studies have all been personally reviewed. Surface echocardiogram from November 2022 demonstrated normal LV size with an ejection fraction of 70%. Pulmonary artery systolic pressure was estimated to be 55 to 60 mmHg. Vital Signs: Vital Signs Temp Pulse Resp BP Pulse Ox O2 Del Method O2 Flow Rate 97 F L 86 22 H 101/64 97 Bi-pap 70 01/04/23 08:00 01/04/23 08:00 01/04/23 08:15 01/04/23 08:00 01/04/23 08:00 01/04/23 08:15 01/04/23 06:00 FiO2 60 01/04/23 08:15 Oxygen Flow Rate (L/min) 70 Oxygen Delivery Method Bi-pap Weight: 97 lb 7.109 oz Body Mass Index (BMI) 20.4 Intake & Output: Intake and Output for Last 24 Hours 01/02/23 01/03/23 01/04/23 23:59 23:59 23:59 Intake Total 740 / 740 2044 / 5 Output Total 525 / 525 Balance 740 / 740 5 / 1844 -525 / -525 Medical Nutrition Assessment Dietitian: Malnutrition Criteria Met Start: 12/31/22 09:54 Freq: Status: Active Protocol: Document 12/31/22 09:54 AG (Rec: 12/31/22 09:54 [id number]) Nutrition Malnutrition Evidence of Malnutrition Exists Yes Malnutrition (severe): Chronic Evidenced By Suboptimal Energy Intake ( Severe),Physical Changes ( Severe) Clinical Problem Chronic Disease or Condition Related Malnutrition Etiology chronic severe malnutrition related to inadequate energy intake Signs/Symptoms as evidenced by as evidenced by estimated PO intake meeting <75% of estimated energy needs > 3 months, severe fat/ muscle wasting per physical exam in orbital, temporal, clavicle, and acromion areas Status Active Problem Recommendation Dietitian Recommendations/Changes 1) Bolus feeds via PEG- Jevity 1.5 180mL bolus 5x/day w/ 60mL H2O flush before and after each bolus to provide 1350 calories, 57 g protein, and 1284mL fluid/day. 2) John BID via PEG. 3) Daily wts. Lab / Micro Data Attestation: I reviewed the patient's lab results. Result Diagrams: 01/05/23 06:01 01/04/23 04:24 Labs: Laboratory Results - last 24 hr 12/30/22 18:58: Diff Path Review Reviewed 01/04/23 04:24: WBC 10.3, RBC 3.20 L, Hgb 7.9 L, Hct 27.9 L, MCV 87.2, MCH 24.7 L, MCHC 28.3 L, RDW Std Deviation 72.4 H, RDW Coeff of Angie 22.9 H, Plt Count 763 H*, MPV 10.3, Immature Gran % (Auto) 0.800, Neut % (Auto) 97.0 H, Lymph % (Auto) 1.3 L, Kingsbury % (Auto) 0.8, Eos % (Auto) 0.0, Baso % (Auto) 0.1, Absolute Neuts (auto) 10.0 H, Absolute Lymphs (auto) 0.13 L, Nucleated RBC % 0, Diff Path Review May foll, Platelet Estimate MKD INC, Anisocytosis 2+ 01/04/23 04:24: Sodium 135 L, Potassium 3.8, Chloride 87 L, Carbon Dioxide > 45.0 H*, Anion Gap TNP, BUN 28 H, Creatinine 0.28 L, Estim Creat Clear Calc 139.77, Est GFR (MDRD) Af Amer 310, Est GFR (MDRD) Non-Af 256, BUN/Creatinine Ratio 100.0 H, Glucose 155 H, Calcium 8.8, Total Bilirubin 0.20, AST 29, ALT 28, Alkaline Phosphatase 96, Total Protein 6.8, Albumin 2.1 L, Globulin 4.7 H, Albumin/Globulin Ratio 0.4 L Micro: Microbiology 12/30/22 23:10 Blood Culture (Wb) - Anticubital Right Blood Culture - Preliminary No growth in 48 hours. 12/30/22 23:05 Blood Culture (Wb) - Anticubital Left Blood Culture - Preliminary No growth in 48 hours. Physical Exam Const General Appearance: lethargic, ill appearing, frail and on BiPAP HEENT normocephalic and head/scalp atraumatic Eyes PERRL Neck supple General: trachea midline Chest inspection of chest normal Resp normal respiratory effort Auscultation: diminished lung sounds Cardio regular rate and regular rhythm GI normal to inspection, nondistended, normoactive bowel sounds Inspection: GI tube present Extremity General Extremity: edema Skin no rashes or lesions noted Neuro no focal motor deficits Psych Mood & Affect: flat affect Charges/Coding Visit Charges Inpatient E&M: 29129 Subs Hosp L3
[2023-01-04 10:47] LABS: BNP,B-Type NATRIURETIC PEPTIDE 115.6 pg/mL (0-100)
--- NOTE | 2023-01-04 10:52 | PN.HOSP_ITS ---
Reason for Visit Reason for Visit: Diagnoses Unspecified diastolic (congestive) heart failure (12/30/22) Acute pulmonary edema (12/30/22) Acute and chronic respiratory failure with hypoxia (12/30/22) Respiratory failure, unspecified, unspecified whether with hypoxia or hypercapnia (12/30/22) Pressure ulcer of unspecified site, unspecified stage (12/30/22) Dependence on other enabling machines and devices (12/30/22) Objective Data Objective Data Vital Signs: Vital Signs Temp Pulse Resp BP Pulse Ox O2 Del Method O2 Flow Rate 97 F L 86 22 H 101/64 97 Bi-pap 70 01/04/23 08:00 01/04/23 08:00 01/04/23 08:15 01/04/23 08:00 01/04/23 08:00 01/04/23 08:15 01/04/23 06:00 FiO2 60 01/04/23 08:15 Oxygen Flow Rate (L/min) 70 Oxygen Delivery Method Bi-pap Weight: 97 lb 7.109 oz Body Mass Index (BMI) 20.4 Intake & Output: Intake and Output for Last 24 Hours 01/02/23 01/03/23 01/04/23 23:59 23:59 23:59 Intake Total 740 / 740 2044 100 / 100 Output Total 525 / 525 Balance 740 / 740 5 / 1844 -425 / -425 Medical Nutrition Assessment Dietitian: Malnutrition Criteria Met Start: 12/31/22 09:54 Freq: Status: Active Protocol: Document 12/31/22 09:54 AG (Rec: 12/31/22 09:54 [id number]) Nutrition Malnutrition Evidence of Malnutrition Exists Yes Malnutrition (severe): Chronic Evidenced By Suboptimal Energy Intake ( Severe),Physical Changes ( Severe) Clinical Problem Chronic Disease or Condition Related Malnutrition Etiology chronic severe malnutrition related to inadequate energy intake Signs/Symptoms as evidenced by as evidenced by estimated PO intake meeting <75% of estimated energy needs > 3 months, severe fat/ muscle wasting per physical exam in orbital, temporal, clavicle, and acromion areas Status Active Problem Recommendation Dietitian Recommendations/Changes 1) Bolus feeds via PEG- Jevity 1.5 180mL bolus 5x/day w/ 60mL H2O flush before and after each bolus to provide 1350 calories, 57 g protein, and 1284mL fluid/day. 2) John BID via PEG. 3) Daily wts. Lab / Micro Data Result Diagrams: 01/04/23 04:24 01/04/23 04:24 Labs: Laboratory Results - last 24 hr 12/30/22 18:58: Diff Path Review Reviewed 01/04/23 04:24: WBC 10.3, RBC 3.20 L, Hgb 7.9 L, Hct 27.9 L, MCV 87.2, MCH 24.7 L, MCHC 28.3 L, RDW Std Deviation 72.4 H, RDW Coeff of Angie 22.9 H, Plt Count 763 H*, MPV 10.3, Immature Gran % (Auto) 0.800, Neut % (Auto) 97.0 H, Lymph % (Auto) 1.3 L, Pi[place] % (Auto) 0.8, Eos % (Auto) 0.0, Baso % (Auto) 0.1, Absolute Neuts (auto) 10.0 H, Absolute Lymphs (auto) 0.13 L, Nucleated RBC % 0, Diff Path Review May foll, Platelet Estimate MKD INC, Anisocytosis 2+ 01/04/23 04:24: Sodium 135 L, Potassium 3.8, Chloride 87 L, Carbon Dioxide > 45.0 H*, Anion Gap TNP, BUN 28 H, Creatinine 0.28 L, Estim Creat Clear Calc 139.77, Est GFR (MDRD) Af Amer 310, Est GFR (MDRD) Non-Af 256, BUN/Creatinine Ratio 100.0 H, Glucose 155 H, Calcium 8.8, Total Bilirubin 0.20, AST 29, ALT 28, Alkaline Phosphatase 96, Total Protein 6.8, Albumin 2.1 L, Globulin 4.7 H, Albumin/Globulin Ratio 0.4 L 01/04/23 04:24: B-Natriuretic Peptide 115.6 H Micro: Microbiology 12/30/22 23:10 Blood Culture (Wb) - Anticubital Right Blood Culture - Preliminary No growth in 48 hours. 12/30/22 23:05 Blood Culture (Wb) - Anticubital Left Blood Culture - Preliminary No growth in 48 hours. Physical Exam Narrative Patient is still short of breath. Low pitched voice. On BiPAP. Discussed with son. She is also quite talker. Physical exam General: Alert, Oriented x3, Cooperative HEENT: Atraumatic, PERRLA, EOMI, Normocephalic Oral: No Gingival or Mucosal Lesions/ Ulcerations Neck: Supple, No JVD, Negative Carotid Bruits Lungs: Air entry diminished in bilateral lung bases. Bilateral coarse crepitation Cardiovascular: Regular rate, Regular Rhythm, Normal S1, Normal S2, systolic murmur. Abdomen:. Bowel Sounds Present, Soft, Non Tender, Non-Distended : No renal angle tenderness. No suprapubic tenderness. Extremities: Bilateral leg edema. Capillary Refill Less than 3 Seconds Skin: No rashes, No breakdown Musculoskeletal: No Tenderness to Palpation of Joints or Extremities. RLE shorter than LLE, mild contracture right knee, ROM severely limited. Neurological: Cranial nerves II-XII grossly intact, DTR 2+/4 and Symmetrical, Neuro grossly intact Psych/Mental Status: Normal Affect, Appropriate. Assessment & Plan Assessment/Plan (1) Heart failure with preserved ejection fraction: (2) Flash pulmonary edema: (3) Decubitus ulcer: PLAN: Plan #Shortness of breath presumed to be secondary to Acute on chronic heart failure with preserved ejection fraction/flash pulm edema/? COPD -Discharged earlier the same day of presentation after admission for acute on chronic hypoxic respiratory failure secondary to aspiration pneumonia with possible flash pulmonary edema complicated by recurrent pleural effusions -She had been stabilized on BiPAP nightly and was weaned down to 4 L of O2 at rest and vitals immediately prior to discharge showed a pulse rate of 96 with a BP of 97/62, respiratory rate 19 and her pulse ox was 100% on 3 L nasal cannula -Re-presented with shortness of breath and was placed on AVAPS in the ED, presenting vitals in ED with heart rate of 114, blood pressure 102/67 with a respiratory rate of 26 and 92% on 6 L -Chest x-ray demonstrated bilateral pleural effusions though does have chronic effusions but x-ray appeared worse than 2 days prior, may need CT scan to better evaluate depending on progression -BNP 90, was 200 on arrival last admission -Daily weights, I's and O's -Was placed on IV Bumex and pulmonology consulted -11/23/22: Estimated ejection fraction of 70%. Unable to assess diastolic dysfunction per report. Pulmonary artery systolic pressure 55 to 60 mmHg. -Kerlix roll and to bilateral lower extremities -Fluid restriction of 1500 mls daily -N.p.o. -Resume Robitussin, budesonide, nebs -May need inpatient transfer for CT surgery evaluation. -01/01: Improved quickly and was 100% on BiPAP but had trial on nasal cannula and then required going back on BiPAP due to tachypnea which then caused O2 sat to drop. Discussed with pulm yesterday evening and given that she is improving fairly quickly again it is unclear if inpatient to inpatient transfer is necessary. Started back on Eliquis. Appreciate pulm recs, continue to IV diuresis and wean BiPAP as tolerated. Continue nebs -01/02: O2 sats improving but primarily struggling with tachypnea. Patient very fixated on Ativan however suspect this is a cyclical process as it does help with her work of breathing however she is more anxious because she is waiting and anxious about her next dose of Ativan, discussed this with her son and have discussed with patient multiple times the balance between treating the anxiety and helping with the tachypnea with not depleting her respiratory drive and potentially worsening her clinical picture. Remains on diuretics. Chest x-ray yesterday with pulmonary findings appearing improved. Pulmonology saw today and adjusted AVAPS settings -01/03: Appears volume status has improved however still BiPAP dependent, on review of old records she is to follow with [facility] and several years ago had an FEV1 of 53% and significant COPD, will give IV steroids and azithrom ycin to see if this will lead to any improvement. Breath sounds diminished bilaterally with no wheezing but this may just be due to to severity and difficult to assess cough as she has been completely dependent upon the AVAPS #recurrent pleural effusions -Had previous VATS and pleurodesis on the right and in 2019 had Pleurx catheter on the left -Two admissions ago had R thoracentesis 11/26/22 w/ removal of 525cc stephen colored fluid -pulmonology was following last admission and ultimately decided against further intervention with effusion at this time with plans to optimize clinically/medically w/ outpt CT surgery referral -On diuretics -Pulm consulted -01/01: Discussed with pulm yesterday evening and given that she is improving fairly quickly again it is unclear if inpatient to inpatient transfer is necessary. Started back on Eliquis. Appreciate pulm recs, continue to IV diuresis and wean BiPAP as tolerated. Continue nebs -01/02: Continuing IV diuresis and AVAPS #Hx chronic HfpEF/mod pulm HTN/recent PE's/bronchiectasis -On bipap, IV bumex ordered -Eliquis changed to heparin gtt in the event she may need intervention for effusions -Pulmonology to eval -01/01: Switch back to Eliquis #Paroxysmal A-fib -Amio, Eliquis #Leukocytosis -Presentation white count was 18,100 and white count earlier in the same day was 12,200. -This a.m. 13 -01/01: Improving, do not suspect repeated infection that would necessitate further antibiotics -01/02: Is quite variable. Likely reactive, afebrile. Will add Pro-Supa in the a.m. if not improving with current measures -01/03: Do not have high suspicion for infection, continue to monitor for need for antibiotics #Acute on chronic thrombocytosis -Likely reactive, trend. -Did downtrend in the a.m. -01/01: Variable, continue iron #Chronic anemia -Stable -EGD 12/21 w/ intact gastrostomy w/ gtube and single bleeding angiodysplastic lesion in stomach treated w/ heater probe -Transfuse if <7 -Started on PO iron last admission -Will need outpt colonoscopy and capsule endoscopy #hx CAD s/p stents -[id number] RCA w/ 3.0 x 20 mm Synergy Stent and Prox-Mid RCA w/ 3.5 x 24 mm Synergy Stent 06/18/2020 -Was on triple therapy, only on eliquis and asa on d/c #Dysphagia/severe protein calorie malnutrition -PEG tube placed 11/30/2022 after she required intubation during hospitalization from 11/21/2022 to 11/27/2022 and had persistent dysphagia.? Continues to maintain nutrition via PEG tube -With tube feeding. Dietitian consult for recommendation. #Stage III decubitus ulcer -Apply wet-to-dry dressing. Wound care consult. #Hypothyroidism -Continue Synthroid #DVT prophylaxis/history of PE On Eliquis.
--- NOTE | 2023-01-04 10:52 | PCM.PN.HOSP ---
Reason for Visit Reason for Visit: Diagnoses Unspecified diastolic (congestive) heart failure (12/30/22) Acute pulmonary edema (12/30/22) Acute and chronic respiratory failure with hypoxia (12/30/22) Respiratory failure, unspecified, unspecified whether with hypoxia or hypercapnia (12/30/22) Pressure ulcer of unspecified site, unspecified stage (12/30/22) Dependence on other enabling machines and devices (12/30/22) Subjective Subjective Follow-up for acute on chronic hypoxic respiratory failure BiPAP dependent Objective Data Objective Data Vital Signs: Vital Signs Temp Pulse Resp BP Pulse Ox O2 Del Method O2 Flow Rate 97 F L 86 22 H 101/64 97 Bi-pap 70 01/04/23 08:00 01/04/23 08:00 01/04/23 08:15 01/04/23 08:00 01/04/23 08:00 01/04/23 08:15 01/04/23 06:00 FiO2 60 01/04/23 08:15 Oxygen Flow Rate (L/min) 70 Oxygen Delivery Method Bi-pap Weight: 97 lb 7.109 oz Body Mass Index (BMI) 20.4 Intake & Output: Intake and Output for Last 24 Hours 01/02/23 01/03/23 01/04/23 23:59 23:59 23:59 Intake Total 740 / 740 2044 100 / 100 Output Total 525 / 525 Balance 740 / 740 5 / 5 -425 / -425 Medical Nutrition Assessment Dietitian: Malnutrition Criteria Met Start: 12/31/22 09:54 Freq: Status: Active Protocol: Document 12/31/22 09:54 AG (Rec: 12/31/22 09:54 [id number]) Nutrition Malnutrition Evidence of Malnutrition Exists Yes Malnutrition (severe): Chronic Evidenced By Suboptimal Energy Intake ( Severe),Physical Changes ( Severe) Clinical Problem Chronic Disease or Condition Related Malnutrition Etiology chronic severe malnutrition related to inadequate energy intake Signs/Symptoms as evidenced by as evidenced by estimated PO intake meeting <75% of estimated energy needs > 3 months, severe fat/ muscle wasting per physical exam in orbital, temporal, clavicle, and acromion areas Status Active Problem Recommendation Dietitian Recommendations/Changes 1) Bolus feeds via PEG- Jevity 1.5 180mL bolus 5x/day w/ 60mL H2O flush before and after each bolus to provide 1350 calories, 57 g protein, and 1284mL fluid/day. 2) John BID via PEG. 3) Daily wts. Lab / Micro Data Result Diagrams: 01/04/23 04:24 01/04/23 04:24 Labs: Laboratory Results - last 24 hr 12/30/22 18:58: Diff Path Review Reviewed 01/04/23 04:24: WBC 10.3, RBC 3.20 L, Hgb 7.9 L, Hct 27.9 L, MCV 87.2, MCH 24.7 L, MCHC 28.3 L, RDW Std Deviation 72.4 H, RDW Coeff of Angie 22.9 H, Plt Count 763 H*, MPV 10.3, Immature Gran % (Auto) 0.800, Neut % (Auto) 97.0 H, Lymph % (Auto) 1.3 L, [place]rie % (Auto) 0.8, Eos % (Auto) 0.0, Baso % (Auto) 0.1, Absolute Neuts (auto) 10.0 H, Absolute Lymphs (auto) 0.13 L, Nucleated RBC % 0, Diff Path Review May foll, Platelet Estimate MKD INC, Anisocytosis 2+ 01/04/23 04:24: Sodium 135 L, Potassium 3.8, Chloride 87 L, Carbon Dioxide > 45.0 H*, Anion Gap TNP, BUN 28 H, Creatinine 0.28 L, Estim Creat Clear Calc 139.77, Est GFR (MDRD) Af Amer 310, Est GFR (MDRD) Non-Af 256, BUN/Creatinine Ratio 100.0 H, Glucose 155 H, Calcium 8.8, Total Bilirubin 0.20, AST 29, ALT 28, Alkaline Phosphatase 96, Total Protein 6.8, Albumin 2.1 L, Globulin 4.7 H, Albumin/Globulin Ratio 0.4 L 01/04/23 04:24: B-Natriuretic Peptide 115.6 H Micro: Microbiology 12/30/22 23:10 Blood Culture (Wb) - Anticubital Right Blood Culture - Preliminary No growth in 48 hours. 12/30/22 23:05 Blood Culture (Wb) - Anticubital Left Blood Culture - Preliminary No growth in 48 hours. Physical Exam Narrative Patient is still short of breath. Low pitched voice. On BiPAP. Discussed with son. She is also quite talker. Physical exam General: Alert, Oriented x3, Cooperative HEENT: Atraumatic, PERRLA, EOMI, Normocephalic Oral: No Gingival or Mucosal Lesions/ Ulcerations Neck: Supple, No JVD, Negative Carotid Bruits Lungs: Air entry diminished in bilateral lung bases. Bilateral coarse crepitation Cardiovascular: Regular rate, Regular Rhythm, Normal S1, Normal S2, systolic murmur. Abdomen: PEG tube. Bowel Sounds Present, Soft, Non Tender, Non-Distended : No renal angle tenderness. No suprapubic tenderness. Extremities: Bilateral leg edema. Capillary Refill Less than 3 Seconds Skin: No rashes, No breakdown Musculoskeletal: No Tenderness to Palpation of Joints or Extremities. RLE shorter than LLE, mild contracture right knee, ROM severely limited. Neurological: Cranial nerves II-XII grossly intact, DTR 2+/4 and Symmetrical, Neuro grossly intact Psych/Mental Status: Flat affect Assessment & Plan Assessment/Plan (1) Heart failure with preserved ejection fraction: (2) Flash pulmonary edema: (3) Decubitus ulcer: PLAN: Plan #Acute on chronic hypoxic respiratory failure secondary to Acute on chronic heart failure with preserved ejection fraction/flash pulm edema, underlying bronchiectasis and recurrent pleural effusion -Discharged earlier the same day of presentation after admission for acute on chronic hypoxic respiratory failure secondary to aspiration pneumonia with possible flash pulmonary edema complicated by recurrent pleural effusions. Chest x-ray demonstrated bilateral pleural effusions though does have chronic effusions but x-ray appeared worse than 2 days prior. On review of medical record, the patient used to follow with with [facility] and several years ago had an FEV1 of 53% and significant COPD 01/04: Patient respiratory status is stabilized on BiPAP/AVAPS at night and high flow oxygen during daytime. 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 On Atrovent aerosol to prevent tachyarrhythmia exacerbation. Recommended transfer to cardiothoracic surgery evaluation as inpatient versus initiation of hospice care. #recurrent pleural effusions -Had previous VATS and pleurodesis on the right and in 2019 had Pleurx catheter on the left The patient had R thoracentesis 11/26/22 w/ removal of 525cc stephen colored fluid -01/04: Continuing AVAPS. Diuretics held because of rising bicarbonate #Hx chronic HfpEF/mod pulm HTN/recent PE's/bronchiectasis -On bipap, IV diuretics held due to rising bicarbonate -Pulmonology to eval -01/04: Switch back to Eliquis #Paroxysmal A-fib On amiodarone Eliquis #Leukocytosis -Presentation white count was 18,100 and white count earlier in the same day was 12,200. 01/04: WBC count normal. Leukocytosis resolved #Acute on chronic thrombocytosis -Likely reactive, trend. 01/04: #Chronic anemia -Stable -EGD 12/21 w/ intact gastrostomy w/ gtube and single bleeding angiodysplastic lesion in stomach treated w/ heater probe -Transfuse if <7 -Started on PO iron last admission -Will need outpt colonoscopy and capsule endoscopy #hx CAD s/p stents -[id number] RCA w/ 3.0 x 20 mm Synergy Stent and Prox-Mid RCA w/ 3.5 x 24 mm Synergy Stent 06/18/2020 -Was on triple therapy, only on eliquis and asa now. #Dysphagia/severe protein calorie malnutrition -PEG tube placed 11/30/2022 after she required intubation during hospitalization from 11/21/2022 to 11/27/2022 and had persistent dysphagia.? Continues to maintain nutrition via PEG tube -With tube feeding. Dietitian consult for recommendation. #Stage III decubitus ulcer -Apply wet-to-dry dressing. Wound care consult. #Hypothyroidism -Continue Synthroid #DVT prophylaxis/history of PE On Eliquis. Charges/Coding Visit Charges Inpatient E&M: 55724 Subs Hosp L2
[2023-01-04] MEDS: Bumetanide 1 MG/4 ML Vial IV (10:58)
--- NOTE | 2023-01-04 11:15 | CPS ---
Critical values verified times two. Hand delivered results to PCU charge nurse Janki Galvan. Snap shot results to DR. Meredith.
[2023-01-04 11:33] LABS: Allen Test POS; Blood Gas Specimen Type ART; SITE L RADIAL
[2023-01-04 11:34] LABS: FI02 60; O2 Delivery Device Bi Pap; RR 12
[2023-01-04 11:36] LABS: Time Given 1044
[2023-01-04 11:37] LABS: pH 7.47 (7.35-7.45)
[2023-01-04 11:38] LABS: pCO2 75.4 mmHg (35-45)
[2023-01-04 11:39] LABS: Base Excess > 30 mmol/L (-2 to +2); Bicarbonate 54.4 mmol/L (22-26); PO2 70 mmHG (75-100); Total Carbon Dioxide > 50 mmol/L
[2023-01-04 11:40] LABS: SO2 94 % (95-99)
[2023-01-04 12:40] LABS: Pathologist Review Reviewed
[2023-01-04 12:43] LABS: Pathologist Review Reviewed
[2023-01-04] MEDS: Ipratropium 0.5 MG/2.5 ML SOLUTION INHALATION ×2 (14:41→19:15)
--- NOTE | 2023-01-04 18:24 | NURSING ---
Alternate phone number for balta Bruno. Work number between hours of [phone]. .
--- NOTE | 2023-01-04 21:24 | CPS ---
fio2 increased to 75% by RN.
[2023-01-04] MEDS: Atorvastatin Calcium 40 MG Tablet GT (22:18)
[2023-01-05] VITALS (21 sets, daily range): BP systolic 98–142; BP diastolic 61–78; PULSE 83–104; RESP 14–25; TEMP 36.1–36.7; O2SAT 60–100; BMI 19.9
[2023-01-05] MEDS: LORazepam 2 MG/ML Syringe 0.5 MG IV ×6 (00:07→19:03)
[2023-01-05] MEDS: 0.9% Saline Lock 10 ML Syringe IV ×8 (00:10→23:04)
[2023-01-05] MEDS: Levothyroxine 88 MCG Tablet GT (05:17)
[2023-01-05] MEDS: guaiFENesin 10 ML UDC (200MG/10ML) GT ×4 (05:17→23:04)
[2023-01-05] MEDS: busPIRone 5 MG Tablet PO ×3 (05:18→22:52)
[2023-01-05] MEDS: MethylPREDNISolone 125 MG/2 ML Vial 60 MG IV ×4 (05:18→23:04)
[2023-01-05] MEDS: Nystatin Powder 15gm Bottle 1 APPLIC TOPICAL ×3 (05:18→22:53)
[2023-01-05] MEDS: Albuterol 2.5 MG/3 ML VIAL.NEB. INHALATION (06:34)
[2023-01-05] MEDS: Budesonide Respules 0.5 MG/2 ML AMPUL.NEB. INHALATION ×2 (06:34→21:55)
[2023-01-05 06:53] LABS: Absolute Lymphocyte Count 0.22 X10^3/uL (0.83-4.51); Absolute Neutrophil Count 9.9 X10^3/uL (2.0-7.7); Basophil# 0.01 X10^3/uL; Basophil% 0.1 % (0-1); Hematocrit 27.9 % (37-47); Hemoglobin 7.8 g/dL (12.0-15.0); Lymphocyte # 0.22 X10^3/ul (0.83-4.51); Lymphocyte % 2.1 % (19-41); Mean Corpuscular Hgb 24.5 pg (27.0-32.0); Mean Corpuscular Volume 87.7 fL (81-99); Mean Platelet Vol. 10.3 fl (6.2-12.0); Monocyte# 0.24 X10^3/uL; Monocyte% 2.3 % (0-10); NRBC Flagged by Analyzer 0 % (0-5); Neutrophil # 9.93 X10^3/uL (2.7-7.7); POSITIVE DIFFERENTIAL YES; POSITIVE MORPHOLOGY YES; Platelet Count 720 K/mm3 (150-450); RBC Distribution Width CV 23.1 % (11.6-14.6); RBC Distribution Width SD 73.4 fl (35.1-43.9); Red Blood Count 3.18 M/mm3 (4.2-5.4); White Blood Count 10.5 K/mm3 (4.4-11.0)
[2023-01-05 07:18] LABS: Differential Indicated SCAN CRITERIA MET
--- NOTE | 2023-01-05 07:29 | PCM.PN.INT ---
Assessment & Plan Assessment/Plan (1) Acute and chronic respiratory failure with hypoxia: PLAN: Plan RECOMMENDATIONS: 1. Continue AVAPS therapy and wean FiO2 for saturations greater than 90%. 2. Continue scheduled Atrovent aerosols to prevent exacerbation of tachyarrhythmia. 3. Continue nutritional support via G-tube. 4. Continue Eliquis per home regimen. 5. Continue to hold diuretics given underlying metabolic derangements. 6. Consider transfer to tertiary center for cardiothoracic evaluation vs initiation of hospice care services. IMPRESSIONS: 1. Acute on chronic hypoxemic respiratory failure Most likely secondary to flash pulmonary edema. The patient has a known history of underlying bronchiectasis with advanced age COPD and recurrent pleural effusion, which according to documentation, was previously felt to be cardiac in etiology.? The patient did undergo a VATS and pleurodesis on the right and in 2019 had a Pleurx catheter on the left side in 2019.? The original plan was to allow the patient to improve her nutritional status prior to having an outpatient evaluation by cardiothoracic surgery. However, given patient's repeated hospitalizations, it may be necessary to do a hospital hospital evaluation for cardiothoracic surgery. Underlying metabolic derangements and tenuous hemodynamics have limited the use of diuretics. The patient continues to require a high amount of supplemental O2. She will be continued on scheduled bronchodilators, steroids and azithromycin. However, given her wish to pursue aggressive intervention, I would recommend consideration for transfer to a tertiary care facility with cardiothoracic surgery availability. Nevertheless, I do not feel that the patient is likely going to be a candidate for any form of surgical intervention. 2.??History of subsegmental PE with RV dysfunction and pulmonary hypertension Continue Eliquis per home regimen. 3.??COPD with chronic bronchitis Continue scheduled Atrovent aerosols and corticosteroids. 4.??Pulmonary cachexia/hypothyroidism/GERD Complicates care, management, recovery and prognosis.? Continue supportive measures as noted above including tube feeds as tolerated. This note was generated with Pet[employer] dictation software. It may contain incorrect words, spelling, and punctuation that were not noted in checking the note before signing. Subjective Subjective The patient was seen and examined at the bedside this morning. Events from the last 24 hours have been reviewed. The patient is currently afebrile, hemodynamically stable and maintaining appropriate oxygen saturations on BiPAP with an FiO2 requirement of 50%. The patient was only able to be weaned to high flow nasal cannula oxygen for a transient period of time. She is currently documented to be overall net +3.5 L for the hospitalization. I spoke to the patient this morning at the bedside regarding goals of care. She reported that she is interested in pursuing evaluation by thoracic surgeon. Objective Data Objective Data The patient's most recent lab work, culture data and imaging studies have all been personally reviewed. Surface echocardiogram from November 2022 demonstrated normal LV size with an ejection fraction of 70%. Pulmonary artery systolic pressure was estimated to be 55 to 60 mmHg. Vital Signs: Vital Signs Temp Pulse Resp BP Pulse Ox O2 Del Method O2 Flow Rate 97.7 F L 89 18 98/61 87 High Flow 15 01/05/23 06:00 01/05/23 06:00 01/05/23 06:00 01/05/23 06:00 01/05/23 06:00 01/05/23 06:00 01/05/23 06:00 FiO2 45 01/05/23 03:34 Oxygen Flow Rate (L/min) 15 Oxygen Delivery Method High Flow Weight: 94 lb 12.78 oz Body Mass Index (BMI) 19.9 Intake & Output: Intake and Output for Last 24 Hours 01/03/23 01/04/23 01/05/23 23:59 23:59 23:59 Intake Total 2045 / 2045 1095 / 1095 340 / 340 Output Total 1775 / 1775 600 / 600 Balance 2045 / 1845 -680 / -680 -260 / -260 Medical Nutrition Assessment Dietitian: Malnutrition Criteria Met Start: 12/31/22 09:54 Freq: Status: Active Protocol: Document 12/31/22 09:54 (Rec: 12/31/22 09:54 [id number]) Nutrition Malnutrition Evidence of Malnutrition Exists Yes Malnutrition (severe): Chronic Evidenced By Suboptimal Energy Intake ( Severe),Physical Changes ( Severe) Clinical Problem Chronic Disease or Condition Related Malnutrition Etiology chronic severe malnutrition related to inadequate energy intake Signs/Symptoms as evidenced by as evidenced by estimated PO intake meeting <75% of estimated energy needs > 3 months, severe fat/ muscle wasting per physical exam in orbital, temporal, clavicle, and acromion areas Status Active Problem Recommendation Dietitian Recommendations/Changes 1) Bolus feeds via PEG- Jevity 1.5 180mL bolus 5x/day w/ 60mL H2O flush before and after each bolus to provide 1350 calories, 57 g protein, and 1284mL fluid/day. 2) John BID via PEG. 3) Daily wts. Lab / Micro Data Attestation: I reviewed the patient's lab results. Result Diagrams: 01/05/23 06:01 01/05/23 06:01 Labs: Laboratory Results - last 24 hr 12/30/22 18:58: Diff Path Review Reviewed 01/02/23 07:00: Diff Path Review Reviewed 01/04/23 04:24: Diff Path Review Reviewed 01/04/23 04:24: B-Natriuretic Peptide 115.6 H 01/05/23 06:01: WBC 10.5, RBC 3.18 L, Hgb 7.8 L, Hct 27.9 L, MCV 87.7, MCH 24.5 L, MCHC 28.0 L, RDW Std Deviation 73.4 H, RDW Coeff of Angie 23.1 H, Plt Count 720 H, MPV 10.3, Immature Gran % (Auto) 0.500, Neut % (Auto) 95.0 H, Lymph % (Auto) 2.1 L, Norman % (Auto) 2.3, Eos % (Auto) 0.0, Baso % (Auto) 0.1, Absolute Neuts (auto) 9.9 H, Absolute Lymphs (auto) 0.22 L, Nucleated RBC % 0 Micro: Microbiology 12/30/22 23:10 Blood Culture (Wb) - Anticubital Right Blood Culture - Final No growth in 5 days. 12/30/22 23:05 Blood Culture (Wb) - Anticubital Left Blood Culture - Final No growth in 5 days. ABG Data ABG results: ABG 01/04/23 10:44 Specimen Type ART Sample Site L RADIAL pH 7.47 H Bicarbonate Actual 54.4 H Total CO2 > 50 Base Excess > 30 H O2 Saturation 94 L O2 % 60 ABG pCO2 75.4 H* ABG pO2 70 L Finesse Test POS Respiration Rate 12 O2 Delivery Device Bi Pap Vent Mode APRV PH Inspiratory Time 1.15 Pressure High 24.0 Pressure Low 16.0 Crit Call To/Read Back Yes Blood Gas Notified Whom ICU Blood Gas Notified Time 1044 Clinical Comments Radiography Diagnostic Testing: Radiology Impression Chest X-Ray 01/04/23 09:35 IMPRESSION: Slight improvement in the left pleural-parenchymal changes. Stable pleural parenchymal changes at the right lung base. Electronically Signed: Bert Hirsch MD at 13:19 EDT , Physical Exam Const General Appearance: lethargic, ill appearing, frail and on BiPAP HEENT normocephalic and head/scalp atraumatic Eyes PERRL Neck supple General: trachea midline Chest inspection of chest normal Resp normal respiratory effort Auscultation: diminished lung sounds Cardio regular rate and regular rhythm GI normal to inspection, nondistended, normoactive bowel sounds Inspection: GI tube present Extremity General Extremity: edema Skin no rashes or lesions noted Neuro no focal motor deficits Psych Mood & Affect: flat affect Charges/Coding Visit Charges Inpatient E&M: 33556 Subs Hosp L3
--- NOTE | 2023-01-05 07:30 | CPS ---
Bipap was placed on pt by RN after pt desated. Pt was on 100%. Rt weaned pt down to 70% pt sat stayed at 100% with this change
[2023-01-05 07:39] LABS: ALB/GLOB Ratio 0.4 RATIO (0.9-2.4); AST(SGOT) 20 U/L (15-37); Alanine Aminotransfer ALT/SGPT 22 U/L (13-56); Albumin, Serum 1.9 g/dL (3.2-5.0); Alkaline Phosphatase 83 U/L (45-117); BUN 30 mg/dL (7-18); BUN/Creat Ratio 103.4 RATIO (10-20); Calcium,Total 8.4 mg/dL (8.5-10.1); Carbon Dioxide > 45.0 mmol/L (21.0-32.0); Chloride 86 mmol/L (98-107); Creatinine, Serum 0.29 mg/dL (0.55-1.02); EST Glomerular Filtration Rate 246 mL/min (>60); Est Glom Filt Rate - Afr Amer 298 mL/min (>60); Estimated Creatinine Clearance 131.29 ml/min; Globulin 4.4 g/dL (2.2-4.2); Glucose 128 mg/dL (74-106); Potassium 3.5 mmol/L (3.5-5.1); Protein, Total 6.3 g/dL (6.4-8.2); Sodium Level 135 mmol/L (136-145)
[2023-01-05 08:02] LABS: Anisocytosis 2+; Platelet Estimate MKD INC (ADEQ)
--- NOTE | 2023-01-05 08:40 | PCM.PN.HOSP ---
Reason for Visit Reason for Visit: Diagnoses Unspecified diastolic (congestive) heart failure (12/30/22) Acute pulmonary edema (12/30/22) Acute and chronic respiratory failure with hypoxia (12/30/22) Respiratory failure, unspecified, unspecified whether with hypoxia or hypercapnia (12/30/22) Pressure ulcer of unspecified site, unspecified stage (12/30/22) Dependence on other enabling machines and devices (12/30/22) Subjective Subjective Follow-up for acute on chronic hypoxic respiratory failure. Objective Data Objective Data Vital Signs: Vital Signs Temp Pulse Resp BP Pulse Ox O2 Del Method O2 Flow Rate 97.7 F L 88 25 H 98/61 98 High Flow 15 01/05/23 06:00 01/05/23 06:23 01/05/23 06:23 01/05/23 06:00 01/05/23 06:23 01/05/23 06:00 01/05/23 06:00 FiO2 100 01/05/23 06:23 Oxygen Flow Rate (L/min) 15 Oxygen Delivery Method High Flow Weight: 94 lb 12.78 oz Body Mass Index (BMI) 19.9 Intake & Output: Intake and Output for Last 24 Hours 01/03/23 01/04/23 01/05/23 23:59 23:59 23:59 Intake Total 5 / 2045 1095 / 1095 340 / 340 Output Total 1775 / 1775 600 / 600 Balance 2045 / 1845 -680 / -680 -260 / -260 Medical Nutrition Assessment Dietitian: Malnutrition Criteria Met Start: 12/31/22 09:54 Freq: Status: Active Protocol: Document 12/31/22 09:54 AG (Rec: 12/31/22 09:54 [id number]) Nutrition Malnutrition Evidence of Malnutrition Exists Yes Malnutrition (severe): Chronic Evidenced By Suboptimal Energy Intake ( Severe),Physical Changes ( Severe) Clinical Problem Chronic Disease or Condition Related Malnutrition Etiology chronic severe malnutrition related to inadequate energy intake Signs/Symptoms as evidenced by as evidenced by estimated PO intake meeting <75% of estimated energy needs > 3 months, severe fat/ muscle wasting per physical exam in orbital, temporal, clavicle, and acromion areas Status Active Problem Recommendation Dietitian Recommendations/Changes 1) Bolus feeds via PEG- Jevity 1.5 180mL bolus 5x/day w/ 60mL H2O flush before and after each bolus to provide 1350 calories, 57 g protein, and 1284mL fluid/day. 2) John BID via PEG. 3) Daily wts. Lab / Micro Data Result Diagrams: 01/05/23 06:01 01/05/23 06:01 Labs: Laboratory Results - last 24 hr 12/30/22 18:58: Diff Path Review Reviewed 01/02/23 07:00: Diff Path Review Reviewed 01/04/23 04:24: Diff Path Review Reviewed 01/04/23 04:24: B-Natriuretic Peptide 115.6 H 01/05/23 06:01: WBC 10.5, RBC 3.18 L, Hgb 7.8 L, Hct 27.9 L, MCV 87.7, MCH 24.5 L, MCHC 28.0 L, RDW Std Deviation 73.4 H, RDW Coeff of Angie 23.1 H, Plt Count 720 H, MPV 10.3, Immature Gran % (Auto) 0.500, Neut % (Auto) 95.0 H, Lymph % (Auto) 2.1 L, [place] % (Auto) 2.3, Eos % (Auto) 0.0, Baso % (Auto) 0.1, Absolute Neuts (auto) 9.9 H, Absolute Lymphs (auto) 0.22 L, Nucleated RBC % 0, Platelet Estimate MKD INC, Anisocytosis 2+ 01/05/23 06:01: Sodium 135 L, Potassium 3.5, Chloride 86 L, Carbon Dioxide > 45.0 H*, Anion Gap TNP, BUN 30 H, Creatinine 0.29 L, Estim Creat Clear Calc 131.29, Est GFR (MDRD) Af Amer 298, Est GFR (MDRD) Non-Af 246, BUN/Creatinine Ratio 103.4 H, Glucose 128 H, Calcium 8.4 L, Total Bilirubin 0.20, AST 20, ALT 22, Alkaline Phosphatase 83, Total Protein 6.3 L, Albumin 1.9 L, Globulin 4.4 H, Albumin/Globulin Ratio 0.4 L Micro: Microbiology 12/30/22 23:10 Blood Culture (Wb) - Anticubital Right Blood Culture - Final No growth in 5 days. 12/30/22 23:05 Blood Culture (Wb) - Anticubital Left Blood Culture - Final No growth in 5 days. ABG Data ABG results: ABG 01/04/23 10:44 Specimen Type ART Sample Site L RADIAL pH 7.47 H Bicarbonate Actual 54.4 H Total CO2 > 50 Base Excess > 30 H O2 Saturation 94 L O2 % 60 ABG pCO2 75.4 H* ABG pO2 70 L Finesse Test POS Respiration Rate 12 O2 Delivery Device Bi Pap Vent Mode APRV PH Inspiratory Time 1.15 Pressure High 24.0 Pressure Low 16.0 Crit Call To/Read Back Yes Blood Gas Notified Whom ICU Blood Gas Notified Time 1044 Clinical Comments Radiography Diagnostic Testing: Radiology Impression Chest X-Ray 01/04/23 09:35 IMPRESSION: Slight improvement in the left pleural-parenchymal changes. Stable pleural parenchymal changes at the right lung base. Electronically Signed: Bert Hirsch MD at 13:19 EDT , Physical Exam Narrative Patient is still short of breath. Low pitched voice. On BiPAP. Get desaturated on high flow oxygen. Discussed with son and does not want hospice care.. She is also quite talker. Physical exam General: Alert, Oriented x3, Cooperative HEENT: Atraumatic, PERRLA, EOMI, Normocephalic Oral: No Gingival or Mucosal Lesions/ Ulcerations Neck: Supple, No JVD, Negative Carotid Bruits Lungs: Air entry diminished in bilateral lung bases. Kyphotic chest wall. Bilateral coarse crepitation Cardiovascular: Regular rate, Regular Rhythm, Normal S1, Normal S2, systolic murmur. Abdomen: PEG tube. Bowel Sounds Present, Soft, Non Tender, Non-Distended : No renal angle tenderness. No suprapubic tenderness. Extremities: Bilateral leg edema. Capillary Refill Less than 3 Seconds Skin: No rashes, No breakdown Musculoskeletal: No Tenderness to Palpation of Joints or Extremities. RLE shorter than LLE, mild contracture right knee, ROM severely limited. Neurological: Cranial nerves II-XII grossly intact, DTR 2+/4 and Symmetrical, Neuro grossly intact Psych/Mental Status: Flat affect Assessment & Plan Assessment/Plan (1) Heart failure with preserved ejection fraction: (2) Flash pulmonary edema: (3) Decubitus ulcer: PLAN: Plan #Acute on chronic hypoxic respiratory failure secondary to Acute on chronic heart failure with preserved ejection fraction/flash pulm edema, underlying bronchiectasis and recurrent pleural effusion -Discharged earlier the same day of presentation after admission for acute on chronic hypoxic respiratory failure secondary to aspiration pneumonia with possible flash pulmonary edema complicated by recurrent pleural effusions. Chest x-ray demonstrated bilateral pleural effusions though does have chronic effusions but x-ray appeared worse than 2 days prior. On review of medical record, the patient used to follow with with [facility] and several years ago had an FEV1 of 53% and significant COPD 01/04: Patient respiratory status is stabilized on BiPAP/AVAPS at night and high flow oxygen during daytime. Patient being followed by [facility]. On Atrovent aerosol to prevent tachyarrhythmia exacerbation. Recommended transfer to cardiothoracic surgery evaluation as inpatient versus initiation of hospice care. 01/05: Discussed with [facility]. Patient sent to does not want hospice care but rather transfer to tertiary care facility for evaluation of cardiothoracic surgery. Patient cannot be weaned off BiPAP/AVAPS. She was on high flow oxygen for short time but put back on AVAPS, current setting TV 350 mL, RR 12, EPAP 12, P24 to p16 and FiO2 varies 40 to 60%. Patient on respiratory rate 25-30/m. I called [facility] but they do not have bed and they are not taking transfer except the room trauma patient's. I called [facility] and gave clinical detail to the life skills coordinator and waiting for the call back from the physician. #recurrent pleural effusions -Had previous VATS and pleurodesis on the right and in 2019 had Pleurx catheter on the left side in 2019. The patient had R thoracentesis 11/26/22 w/ removal of 525cc stephen colored fluid -01/04: Continuing AVAPS. Diuretics held because of rising bicarbonate #Hx chronic HfpEF/RV dysfunction and mod pulm HTN/recent PE's/bronchiectasis -On bipap, IV diuretics held due to rising bicarbonate -Pulmonology to eval -01/04: Switch back to Eliquis 01/05, bicarb still more than 45. Last echo in 11/23/2022 reported EF 70% severely dilated right ventricle, moderate global RV systolic dysfunction. No MS/MR. Trivial TR, PASP 55 to 60 mmHg. No aortic stenosis. No AI. #Paroxysmal A-fib On amiodarone Eliquis #Leukocytosis -Presentation white count was 18,100 and white count earlier in the same day was 12,200. 01/04: WBC count normal. Leukocytosis resolved #Acute on chronic thrombocytosis -Likely reactive, trend. 01/04: #Chronic anemia -Stable -EGD 12/21 w/ intact gastrostomy w/ gtube and single bleeding angiodysplastic lesion in stomach treated w/ heater probe -Transfuse if <7 -Started on PO iron last admission -Will need outpt colonoscopy and capsule endoscopy #hx CAD s/p stents -[id number] RCA w/ 3.0 x 20 mm Synergy Stent and Prox-Mid RCA w/ 3.5 x 24 mm Synergy Stent 06/18/2020 -Was on triple therapy, only on eliquis and asa now. #Dysphagia/severe protein calorie malnutrition -PEG tube placed 11/30/2022 after she required intubation during hospitalization from 11/21/2022 to 11/27/2022 and had persistent dysphagia.? Continues to maintain nutrition via PEG tube -With tube feeding. Dietitian consult for recommendation. #Stage III decubitus ulcer -Apply wet-to-dry dressing. Wound care consult. #Hypothyroidism -Continue Synthroid #DVT prophylaxis/history of PE On Eliquis. Charges/Coding Visit Charges Inpatient E&M: 404[address] [facility] Hosp L3
[2023-01-05] MEDS: Montelukast 10 MG Tablet GT (08:42)
[2023-01-05] MEDS: Lansoprazole 15 MG Capsule.DR 30 MG GT (08:42)
[2023-01-05] MEDS: Amiodarone 200 MG Tablet GT (08:42)
[2023-01-05] MEDS: Juven (unflavored) Packet 1 PACKET GT ×2 (08:43→17:19)
[2023-01-05] MEDS: APIXABAN 5 MG TABLET GT ×2 (08:43→22:53)
[2023-01-05] MEDS: Aspirin 81 MG TAB.CHEW GT (08:43)
[2023-01-05] MEDS: Iron Polysaccharide Complex 150 MG CAPSULE GT (08:43)
[2023-01-05] MEDS: Acetaminophen 650 MG/20 ML UDC GT ×2 (08:43→19:02)
[2023-01-05] MEDS: Potassium Chloride Oral Tablet 20 MEQ GT (08:43)
[2023-01-05] MEDS: Jevity 1.5. 1,000 ML Bottle 180 ML GT ×5 (08:44→23:52)
--- NOTE | 2023-01-05 09:41 | CASEMGMT ---
Tertiary facilities in-network with patient's insurance: [facility], [place], [facility], [facility], [facility], [facility], [facility] ([facility]), [place], and
[2023-01-05] MEDS: Ipratropium 0.5 MG/2.5 ML SOLUTION INHALATION ×3 (10:44→21:55)
--- NOTE | 2023-01-05 10:45 | WOUNDNOTE ---
wound photo: sacrum
[2023-01-05] MEDS: Atorvastatin Calcium 40 MG Tablet GT (22:53)
[2023-01-06] VITALS (25 sets, daily range): BP systolic 100–102; BP diastolic 61–71; PULSE 87–105; RESP 14–31; TEMP 35.6–36.8; O2SAT 84–100; BMI 22.5
[2023-01-06] MEDS: LORazepam 2 MG/ML Syringe 0.5 MG IV ×7 (00:09→23:31)
[2023-01-06 04:58] LABS: Absolute Lymphocyte Count 0.11 X10^3/uL (0.83-4.51); Absolute Neutrophil Count 8.3 X10^3/uL (2.0-7.7); Hematocrit 27.9 % (37-47); Hemoglobin 7.8 g/dL (12.0-15.0); Lymphocyte # 0.11 X10^3/ul (0.83-4.51); Lymphocyte % 1.2 % (19-41); Mean Corpuscular Hgb 24.5 pg (27.0-32.0); Mean Corpuscular Volume 87.5 fL (81-99); Mean Platelet Vol. 9.8 fl (6.2-12.0); Monocyte# 0.36 X10^3/uL; Monocyte% 4.1 % (0-10); NRBC Flagged by Analyzer 0.2 % (0-5); Neutrophil % 94.1 % (47-70); POSITIVE DIFFERENTIAL YES; POSITIVE MORPHOLOGY YES; Platelet Count 656 K/mm3 (150-450); RBC Distribution Width CV 22.2 % (11.6-14.6); Red Blood Count 3.19 M/mm3 (4.2-5.4); White Blood Count 8.8 K/mm3 (4.4-11.0)
[2023-01-06 05:31] LABS: Differential Indicated SCAN CRITERIA MET
[2023-01-06 05:44] LABS: ALB/GLOB Ratio 0.5 RATIO (0.9-2.4); AST(SGOT) 25 U/L (15-37); Alanine Aminotransfer ALT/SGPT 30 U/L (13-56); Alkaline Phosphatase 80 U/L (45-117); BUN 36 mg/dL (7-18); BUN/Creat Ratio 111.8 RATIO (10-20); Calcium,Total 8.4 mg/dL (8.5-10.1); Carbon Dioxide > 45.0 mmol/L (21.0-32.0); Chloride 88 mmol/L (98-107); Creatinine, Serum 0.32 mg/dL (0.55-1.02); EST Glomerular Filtration Rate 218 mL/min (>60); Est Glom Filt Rate - Afr Amer 264 mL/min (>60); Estimated Creatinine Clearance 118.98 ml/min; Globulin 4.1 g/dL (2.2-4.2); Glucose 147 mg/dL (74-106); Potassium 4.2 mmol/L (3.5-5.1); Protein, Total 6.1 g/dL (6.4-8.2); Sodium Level 137 mmol/L (136-145)
[2023-01-06 05:57] LABS: Platelet Estimate MKD INC (ADEQ)
[2023-01-06 05:58] LABS: Anisocytosis 3+; Macrocytosis 1+; Microcytosis 1+
[2023-01-06 05:59] LABS: Hypochromasia 1+
[2023-01-06] MEDS: 0.9% Saline Lock 10 ML Syringe IV ×3 (06:06→23:31)
[2023-01-06] MEDS: MethylPREDNISolone 125 MG/2 ML Vial 60 MG IV ×3 (06:06→18:39)
[2023-01-06] MEDS: Nystatin Powder 15gm Bottle 1 APPLIC TOPICAL ×3 (06:07→22:31)
[2023-01-06] MEDS: Levothyroxine 88 MCG Tablet GT (06:07)
[2023-01-06] MEDS: guaiFENesin 10 ML UDC (200MG/10ML) GT ×3 (06:07→18:39)
[2023-01-06] MEDS: busPIRone 5 MG Tablet PO ×3 (06:07→22:29)
--- NOTE | 2023-01-06 07:36 | CPS ---
[facility] out of stock on PCU, Pharmacy notified by [employer]
[2023-01-06] MEDS: Jevity 1.5. 1,000 ML Bottle 180 ML GT ×5 (09:00→22:30)
[2023-01-06] MEDS: Iron Polysaccharide Complex 150 MG CAPSULE GT (09:00)
[2023-01-06] MEDS: Aspirin 81 MG TAB.CHEW GT (09:00)
[2023-01-06] MEDS: Juven (unflavored) Packet 1 PACKET GT ×2 (09:00→18:00)
--- NOTE | 2023-01-06 09:13 | PCM.PN.INT ---
Assessment & Plan Assessment/Plan (1) Acute and chronic respiratory failure with hypoxia: PLAN: Plan RECOMMENDATIONS: 1. Continue AVAPS therapy and wean FiO2 for saturations greater than 90%. 2. Continue scheduled Atrovent aerosols to prevent exacerbation of tachyarrhythmia. 3. Continue nutritional support via G-tube. 4. Continue Eliquis per home regimen. 5. Awaiting transfer to [facility]. IMPRESSIONS: 1. Acute on chronic hypoxemic respiratory failure Most likely secondary to flash pulmonary edema. The patient has a known history of underlying bronchiectasis with advanced stage COPD and recurrent pleural effusion, which according to documentation, was previously felt to be cardiac in etiology.? The patient did undergo a VATS and pleurodesis on the right and in 2019 had a Pleurx catheter on the left side in 2019.? The original plan was to allow the patient to improve her nutritional status prior to having an outpatient evaluation by cardiothoracic surgery. However, given the patient's repeated hospitalizations, and request to pursue aggressive measures, it may be necessary to transfer the patient for cardiothoracic evaluation. Ultimately, I feel that the patient would be most appropriate for the initiation of hospice care services. Nevertheless, neither the patient or her son are willing to consider hospice until she is evaluated by cardiothoracic surgery. Underlying metabolic derangements and tenuous hemodynamics have limited the use of diuretics. She will be continued on scheduled bronchodilators, steroids and azithromycin. I do believe that the patient's persistent anxiety is also contributing significantly to her ongoing respiratory decompensation. 2.??History of subsegmental PE with RV dysfunction and pulmonary hypertension Continue Eliquis per home regimen. 3.??COPD with chronic bronchitis Continue scheduled Atrovent aerosols and corticosteroids. 4.??Pulmonary cachexia/hypothyroidism/GERD Complicates care, management, recovery and prognosis.? Continue supportive measures as noted above including tube feeds as tolerated. This note was generated with [employer] dictation software. It may contain incorrect words, spelling, and punctuation that were not noted in checking the note before signing. Subjective Subjective The patient was seen and examined at the bedside this morning. Events from the last 24 hours have been reviewed. The patient is currently afebrile, hemodynamically stable and maintaining appropriate oxygen saturations on BiPAP with an FiO2 of 35%. The patient was able to come off of BiPAP to nasal cannula oxygen for approximately 10 minutes. She apparently becomes anxious during that time, which subsequently leads to decompensation in her oxygenation status. The patient was apparently excepted at [facility] Main campus and transfer, but is still awaiting bed availability. Objective Data Objective Data The patient's most recent lab work, culture data and imaging studies have all been personally reviewed. Surface echocardiogram from November 2022 demonstrated normal LV size with an ejection fraction of 70%. Pulmonary artery systolic pressure was estimated to be 55 to 60 mmHg. Vital Signs: Vital Signs Temp Pulse Resp BP Pulse Ox O2 Del Method O2 Flow Rate 98.2 F 89 25 H 102/66 100 Bi-pap 7 01/06/23 08:00 01/06/23 08:00 01/06/23 08:00 01/06/23 08:00 01/06/23 08:00 01/06/23 08:00 01/06/23 07:49 FiO2 45 01/06/23 08:00 Oxygen Flow Rate (L/min) 7 Oxygen Delivery Method Bi-pap Weight: 107 lb 12.897 oz Body Mass Index (BMI) 22.5 Intake & Output: Intake and Output for Last 24 Hours 01/04/23 01/05/23 01/06/23 23:59 23:59 23:59 Intake Total 1095 / 1095 1315 / 1435 420 / 420 Output Total 1775 / 1775 1300 / 1550 950 / 950 Balance -680 / -680 15 / -115 -530 / -530 Medical Nutrition Assessment Dietitian: Malnutrition Criteria Met Start: 12/31/22 09:54 Freq: Status: Active Protocol: Document 12/31/22 09:54 (Rec: 12/31/22 09:54 [id number]) Nutrition Malnutrition Evidence of Malnutrition Exists Yes Malnutrition (severe): Chronic Evidenced By Suboptimal Energy Intake ( Severe),Physical Changes ( Severe) Clinical Problem Chronic Disease or Condition Related Malnutrition Etiology chronic severe malnutrition related to inadequate energy intake Signs/Symptoms as evidenced by as evidenced by estimated PO intake meeting <75% of estimated energy needs > 3 months, severe fat/ muscle wasting per physical exam in orbital, temporal, clavicle, and acromion areas Status Active Problem Recommendation Dietitian Recommendations/Changes 1) Bolus feeds via PEG- Jevity 1.5 180mL bolus 5x/day w/ 60mL H2O flush before and after each bolus to provide 1350 calories, 57 g protein, and 1284mL fluid/day. 2) John BID via PEG. 3) Daily wts. Lab / Micro Data Attestation: I reviewed the patient's lab results. Result Diagrams: 01/06/23 04:50 01/06/23 04:50 Labs: Laboratory Results - last 24 hr 01/06/23 04:50: WBC 8.8, RBC 3.19 L, Hgb 7.8 L, Hct 27.9 L, MCV 87.5, MCH 24.5 L, MCHC 28.0 L, RDW Std Deviation 70.0 H, RDW Coeff of Angie 22.2 H, Plt Count 656 H, MPV 9.8, Immature Gran % (Auto) 0.600, Neut % (Auto) 94.1 H, Lymph % (Auto) 1.2 L, [place] % (Auto) 4.1, Eos % (Auto) 0.0, Baso % (Auto) 0.0, Absolute Neuts (auto) 8.3 H, Absolute Lymphs (auto) 0.11 L, Nucleated RBC % 0.2, Platelet Estimate MKD INC, Hypochromasia 1+, Anisocytosis 3+, Microcytosis 1+, Macrocytosis 1+ 01/06/23 04:50: Sodium 137, Potassium 4.2, Chloride 88 L, Carbon Dioxide > 45.0 H*, Anion Gap TNP, BUN 36 H, Creatinine 0.32 L, Estim Creat Clear Calc 118.98, Est GFR (MDRD) Af Amer 264, Est GFR (MDRD) Non-Af 218, BUN/Creatinine Ratio 111.8 H, Glucose 147 H, Calcium 8.4 L, Total Bilirubin 0.20, AST 25, ALT 30, Alkaline Phosphatase 80, Total Protein 6.1 L, Albumin 2.0 L, Globulin 4.1, Albumin/Globulin Ratio 0.5 L Micro: Microbiology 12/30/22 23:10 Blood Culture (Wb) - Anticubital Right Blood Culture - Final No growth in 5 days. 12/30/22 23:05 Blood Culture (Wb) - Anticubital Left Blood Culture - Final No growth in 5 days. ABG Data ABG results: ABG 01/04/23 10:44 Specimen Type ART Sample Site L RADIAL pH 7.47 H Bicarbonate Actual 54.4 H Total CO2 > 50 Base Excess > 30 H O2 Saturation 94 L O2 % 60 ABG pCO2 75.4 H* ABG pO2 70 L Finesse Test POS Respiration Rate 12 O2 Delivery Device Bi Pap Vent Mode APRV PH Inspiratory Time 1.15 Pressure High 24.0 Pressure Low 16.0 Crit Call To/Read Back Yes Blood Gas Notified Whom ICU Blood Gas Notified Time 1044 Clinical Comments Radiography Diagnostic Testing: Radiology Impression Chest X-Ray 01/04/23 09:35 IMPRESSION: Slight improvement in the left pleural-parenchymal changes. Stable pleural parenchymal changes at the right lung base. Electronically Signed: Bert Hirsch MD at 13:19 EDT , Physical Exam Const General Appearance: lethargic, ill appearing, frail and on BiPAP HEENT normocephalic and head/scalp atraumatic Eyes PERRL Neck supple General: trachea midline Chest inspection of chest normal Resp normal respiratory effort Auscultation: diminished lung sounds Cardio regular rate and regular rhythm GI normal to inspection, nondistended, normoactive bowel sounds Inspection: GI tube present Extremity General Extremity: edema Skin no rashes or lesions noted Neuro no focal motor deficits Psych Mood & Affect: flat affect Charges/Coding Visit Charges Inpatient E&M: 30929 Subs Hosp L2
--- NOTE | 2023-01-06 09:15 | NURSING ---
I spoke with Mago with [facility] Transfer line she stated they do not have a bed at this time.
[2023-01-06] MEDS: Lansoprazole 15 MG Capsule.DR 30 MG GT (09:34)
[2023-01-06] MEDS: Potassium Chloride Oral Tablet 20 MEQ GT (09:34)
[2023-01-06] MEDS: Amiodarone 200 MG Tablet GT (09:35)
[2023-01-06] MEDS: Montelukast 10 MG Tablet GT (09:35)
[2023-01-06] MEDS: APIXABAN 5 MG TABLET GT ×2 (09:35→22:29)
[2023-01-06] MEDS: Ipratropium 0.5 MG/2.5 ML SOLUTION INHALATION ×3 (10:35→22:40)
[2023-01-06] MEDS: Acetaminophen 650 MG/20 ML UDC GT ×2 (12:06→18:39)
--- NOTE | 2023-01-06 14:44 | PCM.PN.HOSP ---
Reason for Visit Reason for Visit: Diagnoses Unspecified diastolic (congestive) heart failure (12/30/22) Acute pulmonary edema (12/30/22) Acute and chronic respiratory failure with hypoxia (12/30/22) Respiratory failure, unspecified, unspecified whether with hypoxia or hypercapnia (12/30/22) Pressure ulcer of unspecified site, unspecified stage (12/30/22) Dependence on other enabling machines and devices (12/30/22) Subjective Subjective Follow-up for acute on chronic hypoxic respiratory failure due to multiple etiologies. Objective Data Objective Data Vital Signs: Vital Signs Temp Pulse Resp BP Pulse Ox O2 Del Method O2 Flow Rate 96.8 F L 98 14 102/66 100 Bi-pap 7 01/06/23 10:00 01/06/23 10:39 01/06/23 10:39 01/06/23 10:00 01/06/23 12:00 01/06/23 12:00 01/06/23 07:49 FiO2 45 01/06/23 12:00 Oxygen Flow Rate (L/min) 7 Oxygen Delivery Method Bi-pap Weight: 107 lb 12.897 oz Body Mass Index (BMI) 22.5 Intake & Output: Intake and Output for Last 24 Hours 01/04/23 01/05/23 01/06/23 23:59 23:59 23:59 Intake Total 1095 / 1095 1315 / 1435 1635 / 1635 Output Total 1775 / 1775 1300 / 1550 950 / 950 Balance -680 / -680 15 / -115 685 / 685 Medical Nutrition Assessment Dietitian: Malnutrition Criteria Met Start: 12/31/22 09:54 Freq: Status: Active Protocol: Document 12/31/22 09:54 AG (Rec: 12/31/22 09:54 [id number]) Nutrition Malnutrition Evidence of Malnutrition Exists Yes Malnutrition (severe): Chronic Evidenced By Suboptimal Energy Intake ( Severe),Physical Changes ( Severe) Clinical Problem Chronic Disease or Condition Related Malnutrition Etiology chronic severe malnutrition related to inadequate energy intake Signs/Symptoms as evidenced by as evidenced by estimated PO intake meeting <75% of estimated energy needs > 3 months, severe fat/ muscle wasting per physical exam in orbital, temporal, clavicle, and acromion areas Status Active Problem Recommendation Dietitian Recommendations/Changes 1) Bolus feeds via PEG- Jevity 1.5 180mL bolus 5x/day w/ 60mL H2O flush before and after each bolus to provide 1350 calories, 57 g protein, and 1284mL fluid/day. 2) John BID via PEG. 3) Daily wts. Lab / Micro Data Result Diagrams: 01/06/23 04:50 01/06/23 04:50 Labs: Laboratory Results - last 24 hr 01/06/23 04:50: WBC 8.8, RBC 3.19 L, Hgb 7.8 L, Hct 27.9 L, MCV 87.5, MCH 24.5 L, MCHC 28.0 L, RDW Std Deviation 70.0 H, RDW Coeff of Angie 22.2 H, Plt Count 656 H, MPV 9.8, Immature Gran % (Auto) 0.600, Neut % (Auto) 94.1 H, Lymph % (Auto) 1.2 L, [place] % (Auto) 4.1, Eos % (Auto) 0.0, Baso % (Auto) 0.0, Absolute Neuts (auto) 8.3 H, Absolute Lymphs (auto) 0.11 L, Nucleated RBC % 0.2, Platelet Estimate MKD INC, Hypochromasia 1+, Anisocytosis 3+, Microcytosis 1+, Macrocytosis 1+ 01/06/23 04:50: Sodium 137, Potassium 4.2, Chloride 88 L, Carbon Dioxide > 45.0 H*, Anion Gap TNP, BUN 36 H, Creatinine 0.32 L, Estim Creat Clear Calc 118.98, Est GFR (MDRD) Af Amer 264, Est GFR (MDRD) Non-Af 218, BUN/Creatinine Ratio 111.8 H, Glucose 147 H, Calcium 8.4 L, Total Bilirubin 0.20, AST 25, ALT 30, Alkaline Phosphatase 80, Total Protein 6.1 L, Albumin 2.0 L, Globulin 4.1, Albumin/Globulin Ratio 0.5 L Micro: Microbiology 12/30/22 23:10 Blood Culture (Wb) - Anticubital Right Blood Culture - Final No growth in 5 days. 12/30/22 23:05 Blood Culture (Wb) - Anticubital Left Blood Culture - Final No growth in 5 days. Physical Exam Narrative Patient is still short of breath. Low pitched voice. On BiPAP. Discussed with son and does not want hospice care. Patient is still dependent on AVAPS. No improvement. Patient quickly desaturated once off AVAPS. Physical exam General: Awake, oriented x3, Cooperative sometimes lethargy. HEENT: Atraumatic, PERRLA, EOMI, Normocephalic Oral: No Gingival or Mucosal Lesions/ Ulcerations Neck: Supple, No JVD, Negative Carotid Bruits Lungs: Air entry diminished in bilateral lung bases. Kyphotic chest wall. Bilateral coarse crepitation Cardiovascular: Regular rate, Regular Rhythm, Normal S1, Normal S2, systolic murmur over LLSB. Abdomen: PEG tube. Bowel Sounds Present, Soft, Non Tender, Non-Distended : No renal angle tenderness. No suprapubic tenderness. Extremities: Bilateral leg edema. Capillary Refill Less than 3 Seconds Skin: No rashes, No breakdown Musculoskeletal: No Tenderness to Palpation of Joints or Extremities. RLE shorter than LLE, mild contracture right knee, ROM severely limited. Neurological: Cranial nerves II-XII grossly intact, DTR 2+/4 and Symmetrical, Neuro grossly intact Psych/Mental Status: Flat affect Assessment & Plan Assessment/Plan (1) Heart failure with preserved ejection fraction: (2) Flash pulmonary edema: (3) Decubitus ulcer: PLAN: Plan #Acute on chronic hypoxic respiratory failure secondary to Acute on chronic heart failure with preserved ejection fraction/flash pulm edema, underlying bronchiectasis and recurrent pleural effusion -Discharged earlier the same day of presentation after admission for acute on chronic hypoxic respiratory failure secondary to aspiration pneumonia with possible flash pulmonary edema complicated by recurrent pleural effusions. Chest x-ray demonstrated bilateral pleural effusions though does have chronic effusions but x-ray appeared worse than 2 days prior. On review of medical record, the patient used to follow with with [facility] and several years ago had an FEV1 of 53% and significant COPD 01/04: Patient respiratory status is stabilized on BiPAP/AVAPS at night and high flow oxygen during daytime. Patient being followed by hris analyst. On Atrovent aerosol to prevent tachyarrhythmia exacerbation. Recommended transfer to cardiothoracic surgery evaluation as inpatient versus initiation of hospice care. 01/05: Discussed with hris analyst. Patient sent to does not want hospice care but rather transfer to tertiary care facility for evaluation of cardiothoracic surgery. Patient cannot be weaned off BiPAP/AVAPS. She was on high flow oxygen for short time but put back on AVAPS, current setting TV 350 mL, RR 12, EPAP 12, P24 to p16 and FiO2 varies 40 to 60%. Patient on respiratory rate 25-30/m. I called [facility] but they do not have bed and they are not taking transfer except the room trauma patient's. I called [facility] and gave clinical detail to the personnel coordinator and waiting for the call back from the physician. 01/06: Different hospitals were called. [facility] suggested that she will be better served in [facility] as they have advanced interventional pulmonary/thoracic surgery service. [facility] was called and clinical information was exchanged with thoracic surgeon Dr. Shirley Clement and she agreed to see the patient as inpatient consult once patient is admitted in ICU. Afterwards I talked to the chief of vital statistics Dr. Hanley and he accepted the patient in ICU. Patient is pending transfer to [facility] for bed availability #recurrent pleural effusions -Had previous VATS and pleurodesis on the right and in 2019 had Pleurx catheter on the left side in 2019. The patient had R thoracentesis 11/26/22 w/ removal of 525cc stephen colored fluid -01/04: Continuing AVAPS. Diuretics held because of rising bicarbonate 01/06: Chest x-ray reviewed. No significant pleural effusion for thoracocentesis. Patient is also physically compromised for any procedure. #Hx chronic HFpEF/RV dysfunction and mod pulm HTN/recent PE's/bronchiectasis -On bipap, IV diuretics held due to rising bicarbonate -Pulmonology to eval -01/04: Switch back to Eliquis 01/05, bicarb still more than 45. Last echo in 11/23/2022 reported EF 70% severely dilated right ventricle, moderate global RV systolic dysfunction. No MS/MR. Trivial TR, PASP 55 to 60 mmHg. No aortic stenosis. No AI. 01/06 bicarb is still very high. #Paroxysmal A-fib On amiodarone Eliquis #Leukocytosis -Presentation white count was 18,100 and white count earlier in the same day was 12,200. 01/04: WBC count normal. Leukocytosis resolved #Acute on chronic thrombocytosis -Likely reactive, trend. 01/04: #Chronic anemia -Stable -EGD 12/21 w/ intact gastrostomy w/ gtube and single bleeding angiodysplastic lesion in stomach treated w/ heater probe -Transfuse if <7 -Started on PO iron last admission -Will need outpt colonoscopy and capsule endoscopy #hx CAD s/p stents -INL-RRT-Caxycf RCA w/ 3.0 x 20 mm Synergy Stent and Prox-Mid RCA w/ 3.5 x 24 mm Synergy Stent 06/18/2020 -Was on triple therapy, only on eliquis and asa now. #Dysphagia/severe protein calorie malnutrition -PEG tube placed 11/30/2022 after she required intubation during hospitalization from 11/21/2022 to 11/27/2022 and had persistent dysphagia.? Continues to maintain nutrition via PEG tube -With tube feeding. Dietitian consult for recommendation. #Stage III decubitus ulcer -Apply wet-to-dry dressing. Wound care consult. #Hypothyroidism -Continue Synthroid #DVT prophylaxis/history of PE On Eliquis. Charges/Coding Visit Charges Inpatient E&M: 24101 Subs Hosp L2
--- NOTE | 2023-01-06 15:39 | CPS ---
Patient taken of BIPAP for a break, placed on 7L HFNC
[2023-01-06] MEDS: Atorvastatin Calcium 40 MG Tablet GT (22:31)
[2023-01-06] MEDS: Budesonide Respules 0.5 MG/2 ML AMPUL.NEB. INHALATION (22:40)
[2023-01-07] VITALS (15 sets, daily range): BP systolic 99–116; BP diastolic 64–71; PULSE 70–108; RESP 14–28; TEMP 36.2–36.5; O2SAT 95–100; BMI 22.3
[2023-01-07] MEDS: guaiFENesin 10 ML UDC (200MG/10ML) GT ×5 (00:48→23:08)
[2023-01-07] MEDS: MethylPREDNISolone 125 MG/2 ML Vial 60 MG IV ×5 (00:50→23:09)
--- NOTE | 2023-01-07 01:08 | NURSING ---
Spoke with transfer cordinator from [facility] and gave update on pt. no beds available at this time still.
--- NOTE | 2023-01-07 03:50 | CPS ---
BIPAP settings were changed for the patient at this time from AVAPS to S/T mode 15/08 R14 50%. Patient's sat remained 100% and she continued to pull acceptable tidal volumes. These changes were made so that if/when the patient is transported she is able to be placed on transport BIPAP with appropriate settings.
[2023-01-07 06:12] LABS: Absolute Lymphocyte Count 0.09 X10^3/uL (0.83-4.51); Hematocrit 27.4 % (37-47); Hemoglobin 7.6 g/dL (12.0-15.0); Lymphocyte # 0.09 X10^3/ul (0.83-4.51); Lymphocyte % 1.1 % (19-41); Mean Corp Hgb Conc 27.7 g/dL (32-36); Mean Corpuscular Hgb 24.4 pg (27.0-32.0); Mean Corpuscular Volume 88.1 fL (81-99); Monocyte# 0.26 X10^3/uL; Monocyte% 3.1 % (0-10); NRBC Flagged by Analyzer 0 % (0-5); Neutrophil # 7.98 X10^3/uL (2.7-7.7); Neutrophil % 95.3 % (47-70); POSITIVE DIFFERENTIAL YES; POSITIVE MORPHOLOGY YES; Platelet Count 672 K/mm3 (150-450); RBC Distribution Width CV 22.5 % (11.6-14.6); RBC Distribution Width SD 71.2 fl (35.1-43.9); Red Blood Count 3.11 M/mm3 (4.2-5.4); White Blood Count 8.4 K/mm3 (4.4-11.0)
[2023-01-07 06:22] LABS: Differential Indicated SCAN CRITERIA MET
[2023-01-07] MEDS: busPIRone 5 MG Tablet PO ×3 (06:49→23:05)
[2023-01-07] MEDS: Levothyroxine 88 MCG Tablet GT (06:50)
[2023-01-07] MEDS: Nystatin Powder 15gm Bottle 1 APPLIC TOPICAL ×3 (06:50→23:07)
[2023-01-07 06:53] LABS: Anisocytosis 1+; Differential Comment SCANNED; Hypochromasia 1+; Microcytosis 1+
[2023-01-07 07:08] LABS: ALB/GLOB Ratio 0.5 RATIO (0.9-2.4); AST(SGOT) 33 U/L (15-37); Alanine Aminotransfer ALT/SGPT 40 U/L (13-56); Albumin, Serum 1.9 g/dL (3.2-5.0); Alkaline Phosphatase 73 U/L (45-117); BUN 35 mg/dL (7-18); Calcium,Total 8.3 mg/dL (8.5-10.1); Carbon Dioxide > 45.0 mmol/L (21.0-32.0); Chloride 87 mmol/L (98-107); Creatinine, Serum 0.34 mg/dL (0.55-1.02); EST Glomerular Filtration Rate 203 mL/min (>60); Est Glom Filt Rate - Afr Amer 245 mL/min (>60); Estimated Creatinine Clearance 126.04 ml/min; Globulin 3.8 g/dL (2.2-4.2); Glucose 140 mg/dL (74-106); Protein, Total 5.7 g/dL (6.4-8.2); Sodium Level 135 mmol/L (136-145)
[2023-01-07] MEDS: Budesonide Respules 0.5 MG/2 ML AMPUL.NEB. INHALATION ×2 (07:15→19:05)
[2023-01-07] MEDS: Jevity 1.5. 1,000 ML Bottle 180 ML GT ×5 (07:52→23:06)
[2023-01-07] MEDS: Juven (unflavored) Packet 1 PACKET GT ×2 (07:52→17:58)
[2023-01-07] MEDS: Aspirin 81 MG TAB.CHEW GT (07:52)
[2023-01-07] MEDS: Iron Polysaccharide Complex 150 MG CAPSULE GT (07:52)
[2023-01-07] MEDS: Lansoprazole 15 MG Capsule.DR 30 MG GT (07:53)
[2023-01-07] MEDS: Amiodarone 200 MG Tablet GT (07:53)
[2023-01-07] MEDS: Montelukast 10 MG Tablet GT (07:53)
[2023-01-07] MEDS: APIXABAN 5 MG TABLET GT ×2 (07:53→23:05)
[2023-01-07] MEDS: Potassium Chloride Oral Tablet 20 MEQ GT (07:53)
[2023-01-07] MEDS: LORazepam 2 MG/ML Syringe 0.5 MG IV ×4 (08:04→22:59)
[2023-01-07] MEDS: 0.9% Saline Lock 10 ML Syringe IV ×4 (08:12→16:26)
[2023-01-07] MEDS: Ipratropium 0.5 MG/2.5 ML SOLUTION INHALATION ×2 (11:50→14:16)
[2023-01-07] MEDS: Acetaminophen 650 MG/20 ML UDC GT ×2 (13:01→23:04)
--- NOTE | 2023-01-07 16:43 | PCM.PN.HOSP ---
Reason for Visit Reason for Visit: Diagnoses Unspecified diastolic (congestive) heart failure (12/30/22) Acute pulmonary edema (12/30/22) Acute and chronic respiratory failure with hypoxia (12/30/22) Respiratory failure, unspecified, unspecified whether with hypoxia or hypercapnia (12/30/22) Pressure ulcer of unspecified site, unspecified stage (12/30/22) Dependence on other enabling machines and devices (12/30/22) Subjective Subjective No acute change. Patient remained short of breath on AVAPS. Objective Data Objective Data Vital Signs: Vital Signs Temp Pulse Resp BP Pulse Ox O2 Del Method O2 Flow Rate 97.4 F L 96 26 H 103/64 95 Bi-pap 7 01/07/23 14:00 01/07/23 14:17 01/07/23 14:17 01/07/23 14:00 01/07/23 14:17 01/07/23 14:49 01/07/23 08:01 FiO2 50 01/07/23 14:49 Oxygen Flow Rate (L/min) 7 Oxygen Delivery Method Bi-pap Weight: 106 lb 11.26 oz Body Mass Index (BMI) 22.3 Intake & Output: Intake and Output for Last 24 Hours 01/05/23 01/06/23 01/07/23 23:59 23:59 23:59 Intake Total 1315 / 1435 2595 / 3195 1945 / 1945 Output Total 1300 / 1550 1500 / 1850 1500 / 1500 Balance 15 / -115 1095 / 1345 445 / 445 Medical Nutrition Assessment Dietitian: Malnutrition Criteria Met Start: 12/31/22 09:54 Freq: Status: Active Protocol: Document 12/31/22 09:54 AG (Rec: 12/31/22 09:54 [id number]) Nutrition Malnutrition Evidence of Malnutrition Exists Yes Malnutrition (severe): Chronic Evidenced By Suboptimal Energy Intake ( Severe),Physical Changes ( Severe) Clinical Problem Chronic Disease or Condition Related Malnutrition Etiology chronic severe malnutrition related to inadequate energy intake Signs/Symptoms as evidenced by as evidenced by estimated PO intake meeting <75% of estimated energy needs > 3 months, severe fat/ muscle wasting per physical exam in orbital, temporal, clavicle, and acromion areas Status Active Problem Recommendation Dietitian Recommendations/Changes 1) Bolus feeds via PEG- Jevity 1.5 180mL bolus 5x/day w/ 60mL H2O flush before and after each bolus to provide 1350 calories, 57 g protein, and 1284mL fluid/day. 2) John BID via PEG. 3) Daily wts. Lab / Micro Data Result Diagrams: 01/07/23 04:50 01/07/23 04:50 Labs: Laboratory Results - last 24 hr 01/07/23 04:50: WBC 8.4, RBC 3.11 L, Hgb 7.6 L, Hct 27.4 L, MCV 88.1, MCH 24.4 L, MCHC 27.7 L, RDW Std Deviation 71.2 H, RDW Coeff of Angie 22.5 H, Plt Count 672 H, MPV 11.0, Immature Gran % (Auto) 0.500, Neut % (Auto) 95.3 H, Lymph % (Auto) 1.1 L, [place] % (Auto) 3.1, Eos % (Auto) 0.0, Baso % (Auto) 0.0, Absolute Neuts (auto) 8.0 H, Absolute Lymphs (auto) 0.09 L, Nucleated RBC % 0, Differential Comment SCANNED, Hypochromasia 1+, Anisocytosis 1+, Microcytosis 1+ 01/07/23 04:50: Sodium 135 L, Potassium 4.0, Chloride 87 L, Carbon Dioxide > 45.0 H*, Anion Gap TNP, BUN 35 H, Creatinine 0.34 L, Estim Creat Clear Calc 126.04, Est GFR (MDRD) Af Amer 245, Est GFR (MDRD) Non-Af 203, BUN/Creatinine Ratio 102.0 H, Glucose 140 H, Calcium 8.3 L, Total Bilirubin 0.20, AST 33, ALT 40, Alkaline Phosphatase 73, Total Protein 5.7 L, Albumin 1.9 L, Globulin 3.8, Albumin/Globulin Ratio 0.5 L Micro: Microbiology 12/30/22 23:10 Blood Culture (Wb) - Anticubital Right Blood Culture - Final No growth in 5 days. 12/30/22 23:05 Blood Culture (Wb) - Anticubital Left Blood Culture - Final No growth in 5 days. Physical Exam Narrative Physical exam General: Awake, opens eyes. Oriented x3, Cooperative HEENT: Atraumatic, PERRLA, EOMI, Normocephalic Oral: No Gingival or Mucosal Lesions/ Ulcerations Neck: Supple, No JVD, Negative Carotid Bruits Lungs:? Air entry diminished in bilateral lung bases.? Kyphotic chest wall.? No wheezing/rhonchi. Cardiovascular: Regular rate, Regular Rhythm, Normal S1, Normal S2, systolic murmur. Abdomen: PEG tube.? Bowel Sounds Present, Soft, Non Tender, Non-Distended : No renal angle tenderness.? No suprapubic tenderness. Extremities: Bilateral leg edema.? Capillary Refill Less than 3 Seconds Skin: No rashes, No breakdown Musculoskeletal: No Tenderness to Palpation of Joints or Extremities.? RLE shorter than LLE, mild contracture right knee, ROM severely limited. Neurological: Cranial nerves II-XII grossly intact, DTR? 2+/4 and Symmetrical, Neuro grossly intact Psych/Mental Status: Flat affect Assessment & Plan Assessment/Plan (1) BiPAP (biphasic positive airway pressure) dependence: (2) Respiratory failure: PLAN: Plan #Acute on chronic hypoxic respiratory failure secondary to Acute on chronic heart failure with preserved ejection fraction/flash pulm edema, underlying bronchiectasis and recurrent pleural effusion -Discharged earlier the same day of presentation after admission for acute on chronic hypoxic respiratory failure secondary to aspiration pneumonia with possible flash pulmonary edema complicated by recurrent pleural effusions. Chest x-ray demonstrated bilateral pleural effusions though does have chronic effusions but x-ray appeared worse than 2 days prior.? On review of medical record, the patient used to follow with? with [facility] and several years ago had an FEV1 of 53% and significant COPD 01/04: Patient respiratory status is stabilized on BiPAP/AVAPS at night and high flow oxygen during daytime.? Patient being followed by water tester.? On Atrovent aerosol to prevent tachyarrhythmia exacerbation.? Recommended transfer to cardiothoracic surgery evaluation as inpatient versus initiation of hospice care. 01/05: Discussed with water tester.? Patient sent to does not want hospice care but rather transfer to tertiary care facility for evaluation of cardiothoracic surgery.? Patient cannot be weaned off BiPAP/AVAPS.? She was on high flow oxygen for short time but put back on AVAPS, current setting TV 350 mL, RR 12, EPAP 12, P24 to p16 and FiO2 varies 40 to 60%.? Patient on respiratory rate 25-30/m.? I called [facility] but they do not have bed and they are not taking transfer except the room trauma patient's.? I called [facility] and gave clinical detail to the decal transferrer and waiting for the call back from the physician. 01/06: Different hospitals were called.? [facility] suggested that she will be better served in [facility] as they have advanced interventional pulmonary/thoracic surgery service.? [facility] was called and clinical information was exchanged with thoracic surgeon Dr. Shirley Clement and she agreed to see the patient as inpatient consult once patient is admitted in ICU.? Afterwards I talked to the bow rehairer Dr. Hanley and he accepted the patient in ICU.? Patient is pending transfer to [facility] for bed availability 01/07: [facility] still does not have beds open. Charge nurse to call [facility] to find out our priority list. Patient respiratory status is same. #recurrent pleural effusions -Had previous VATS and pleurodesis on the right and in 2019 had Pleurx catheter on the left side in 2019. The patient had R thoracentesis 11/26/22 w/ removal of 525cc stephen colored fluid -01/04: Continuing AVAPS.? Diuretics held because of rising bicarbonate 01/06: Chest x-ray reviewed.? No significant pleural effusion for thoracocentesis.? Patient is also physically compromised for any procedure. #Hx chronic HFpEF/RV dysfunction and mod pulm HTN/recent PE's/bronchiectasis -On bipap, IV diuretics held due to rising bicarbonate -Pulmonology to eval -01/04: Switch back to Eliquis 01/05, bicarb still more than 45.? Last echo in 11/23/2022 reported EF 70% severely dilated right ventricle, moderate global RV systolic dysfunction.? No MS/MR.? Trivial TR, PASP 55 to 60 mmHg.? No aortic stenosis.? No AI. 01/06 bicarb is still very high. #Paroxysmal A-fib On amiodarone Eliquis #Leukocytosis -Presentation white count was 18,100 and white count earlier in the same day was 12,200. 01/04: WBC count normal.? Leukocytosis resolved #Acute on chronic thrombocytosis -Likely reactive, trend. 01/04: #Chronic anemia -Stable -EGD 12/21 w/ intact gastrostomy w/ gtube and single bleeding angiodysplastic lesion in stomach treated w/ heater probe -Transfuse if <7 -Started on PO iron last admission -Will need outpt colonoscopy and capsule endoscopy 01/07: Hemoglobin is still low 7.3. #hx CAD s/p stents -[id number] RCA w/ 3.0 x 20 mm Synergy Stent and Prox-Mid RCA w/ 3.5 x 24 mm Synergy Stent 06/18/2020 -Was on triple therapy, only on eliquis and asa now. #Dysphagia/severe protein calorie malnutrition -PEG tube placed 11/30/2022 after she required intubation during hospitalization from 11/21/2022 to 11/27/2022 and had persistent dysphagia.? Continues to maintain nutrition via PEG tube -With tube feeding.? Dietitian consult for recommendation. #Stage III decubitus ulcer -Apply wet-to-dry dressing.? Wound care consult. #Hypothyroidism -Continue Synthroid #DVT prophylaxis/history of PE On Eliquis. Charges/Coding Visit Charges Inpatient E&M: 28287 Subs Hosp L2
[2023-01-07] MEDS: Atorvastatin Calcium 40 MG Tablet GT (23:07)
[2023-01-08] VITALS (26 sets, daily range): BP systolic 107–127; BP diastolic 64–78; PULSE 88–107; RESP 14–32; TEMP 36.1–36.6; O2SAT 76–100; BMI 22.1
[2023-01-08] MEDS: LORazepam 2 MG/ML Syringe 0.5 MG IV ×7 (01:17→23:00)
[2023-01-08] MEDS: 0.9% Saline Lock 10 ML Syringe IV ×7 (01:17→23:01)
[2023-01-08] MEDS: MethylPREDNISolone 125 MG/2 ML Vial 60 MG IV ×4 (05:59→23:01)
[2023-01-08] MEDS: Nystatin Powder 15gm Bottle 1 APPLIC TOPICAL ×3 (05:59→20:57)
[2023-01-08] MEDS: guaiFENesin 10 ML UDC (200MG/10ML) GT ×4 (05:59→23:01)
[2023-01-08] MEDS: busPIRone 5 MG Tablet PO ×3 (05:59→22:52)
[2023-01-08] MEDS: Levothyroxine 88 MCG Tablet GT (06:00)
[2023-01-08] MEDS: Acetaminophen 650 MG/20 ML UDC GT ×3 (06:05→19:41)
--- NOTE | 2023-01-08 06:28 | NURSING ---
talked to transfer cordinator at [facility], provided update. still waiting on bed
[2023-01-08] MEDS: Budesonide Respules 0.5 MG/2 ML AMPUL.NEB. INHALATION ×2 (07:47→20:30)
[2023-01-08] MEDS: Ipratropium 0.5 MG/2.5 ML SOLUTION INHALATION ×4 (07:48→20:30)
[2023-01-08] MEDS: Juven (unflavored) Packet 1 PACKET GT ×2 (08:34→18:02)
[2023-01-08] MEDS: Jevity 1.5. 1,000 ML Bottle 180 ML GT ×5 (08:34→22:52)
[2023-01-08] MEDS: Iron Polysaccharide Complex 150 MG CAPSULE GT (08:34)
[2023-01-08] MEDS: Aspirin 81 MG TAB.CHEW GT (08:34)
--- NOTE | 2023-01-08 08:38 | PCM.PN.HOSP ---
Reason for Visit Reason for Visit: Diagnoses Unspecified diastolic (congestive) heart failure (12/30/22) Acute pulmonary edema (12/30/22) Acute and chronic respiratory failure with hypoxia (12/30/22) Respiratory failure, unspecified, unspecified whether with hypoxia or hypercapnia (12/30/22) Pressure ulcer of unspecified site, unspecified stage (12/30/22) Dependence on other enabling machines and devices (12/30/22) Objective Data Objective Data Vital Signs: Vital Signs Temp Pulse Resp BP Pulse Ox O2 Del Method O2 Flow Rate 97.2 F L 88 15 119/74 99 Bi-pap 5 01/08/23 08:26 01/08/23 08:26 01/08/23 08:26 01/08/23 08:26 01/08/23 08:26 01/08/23 08:26 01/08/23 04:40 FiO2 35 01/08/23 08:26 Oxygen Flow Rate (L/min) 5 Oxygen Delivery Method Bi-pap Weight: 105 lb 13.15 oz Body Mass Index (BMI) 22.1 Intake & Output: Intake and Output for Last 24 Hours 01/06/23 01/07/23 01/08/23 23:59 23:59 23:59 Intake Total 2595 / 3195 1945 / 2335 390 / 390 Output Total 1500 / 1850 1700 / 2800 1700 / 1700 Balance 1095 / 1345 245 / -465 -1310 / -1310 Medical Nutrition Assessment Dietitian: Malnutrition Criteria Met Start: 12/31/22 09:54 Freq: Status: Active Protocol: Document 12/31/22 09:54 AG (Rec: 12/31/22 09:54 [id number]) Nutrition Malnutrition Evidence of Malnutrition Exists Yes Malnutrition (severe): Chronic Evidenced By Suboptimal Energy Intake ( Severe),Physical Changes ( Severe) Clinical Problem Chronic Disease or Condition Related Malnutrition Etiology chronic severe malnutrition related to inadequate energy intake Signs/Symptoms as evidenced by as evidenced by estimated PO intake meeting <75% of estimated energy needs > 3 months, severe fat/ muscle wasting per physical exam in orbital, temporal, clavicle, and acromion areas Status Active Problem Recommendation Dietitian Recommendations/Changes 1) Bolus feeds via PEG- Jevity 1.5 180mL bolus 5x/day w/ 60mL H2O flush before and after each bolus to provide 1350 calories, 57 g protein, and 1284mL fluid/day. 2) John BID via PEG. 3) Daily wts. Lab / Micro Data Result Diagrams: 01/07/23 04:50 01/07/23 04:50 Micro: Microbiology 12/30/22 23:10 Blood Culture (Wb) - Anticubital Right Blood Culture - Final No growth in 5 days. 12/30/22 23:05 Blood Culture (Wb) - Anticubital Left Blood Culture - Final No growth in 5 days. Physical Exam Narrative Seen and examined. Discussed with the nursing staff. Physical exam General: Awake, opens eyes. Oriented x3, Cooperative HEENT: Atraumatic, PERRLA, EOMI, Normocephalic, low pitched voice. Oral: No Gingival or Mucosal Lesions/ Ulcerations Neck: Supple, No JVD, Negative Carotid Bruits Lungs:? Air entry diminished in bilateral lung bases.? Kyphotic chest wall.? No wheezing/rhonchi. Cardiovascular: Regular rate, Regular Rhythm, Normal S1, Normal S2, systolic murmur. Abdomen: PEG tube.? Bowel Sounds Present, Soft, Non Tender, Non-Distended : Clear urine no renal angle tenderness.? No suprapubic tenderness. Extremities: Bilateral leg edema.? Capillary Refill Less than 3 Seconds Skin: No rashes, No breakdown Musculoskeletal: No Tenderness to Palpation of Joints or Extremities.? RLE shorter than LLE, mild contracture right knee, ROM severely limited. Neurological: Cranial nerves II-XII grossly intact, DTR? 2+/4 and Symmetrical, Neuro grossly intact Psych/Mental Status: Flat affect Assessment & Plan Assessment/Plan (1) BiPAP (biphasic positive airway pressure) dependence: (2) Respiratory failure: PLAN: Plan #Acute on chronic hypoxic respiratory failure secondary to Acute on chronic heart failure with preserved ejection fraction/flash pulm edema, underlying bronchiectasis and recurrent pleural effusion -Discharged earlier the same day of presentation after admission for acute on chronic hypoxic respiratory failure secondary to aspiration pneumonia with possible flash pulmonary edema complicated by recurrent pleural effusions. Chest x-ray demonstrated bilateral pleural effusions though does have chronic effusions but x-ray appeared worse than 2 days prior.? On review of medical record, the patient used to follow with? with [facility] and several years ago had an FEV1 of 53% and significant COPD 01/04: Patient respiratory status is stabilized on BiPAP/AVAPS at night and high flow oxygen during daytime.? Patient being followed by drug enforcement administration agent.? On Atrovent aerosol to prevent tachyarrhythmia exacerbation.? Recommended transfer to cardiothoracic surgery evaluation as inpatient versus initiation of hospice care. 01/05: Discussed with drug enforcement administration agent.? Patient sent to does not want hospice care but rather transfer to tertiary care facility for evaluation of cardiothoracic surgery.? Patient cannot be weaned off BiPAP/AVAPS.? She was on high flow oxygen for short time but put back on AVAPS, current setting TV 350 mL, RR 12, EPAP 12, P24 to p16 and FiO2 varies 40 to 60%.? Patient on respiratory rate 25-30/m.? I called [facility] but they do not have bed and they are not taking transfer except the room trauma patient's.? I called [facility] and gave clinical detail to the credit coordinator and waiting for the call back from the physician. 01/06: Different hospitals were called.? [facility] suggested that she will be better served in [facility] as they have advanced interventional pulmonary/thoracic surgery service.? [facility] was called and clinical information was exchanged with thoracic surgeon Dr. Shirley Clement and she agreed to see the patient as inpatient consult once patient is admitted in ICU.? Afterwards I talked to the biometrics head Dr. Hanley and he accepted the patient in ICU.? Patient is pending transfer to [facility] for bed availability 01/07: [facility] still does not have beds open. Charge nurse to call [facility] to find out our priority list. Patient respiratory status is same. 01/08: [facility] still does not Bed. Patient had a bowel movement. Still on AVAPS. Patient has Andino catheter. #recurrent pleural effusions -Had previous VATS and pleurodesis on the right and in 2019 had Pleurx catheter on the left side in 2019. The patient had R thoracentesis 11/26/22 w/ removal of 525cc stephen colored fluid -01/04: Continuing AVAPS.? Diuretics held because of rising bicarbonate 01/06: Chest x-ray reviewed.? No significant pleural effusion for thoracocentesis.? Patient is also physically compromised for any procedure. #Hx chronic HFpEF/RV dysfunction and mod pulm HTN/recent PE's/bronchiectasis -On bipap, IV diuretics held due to rising bicarbonate -Pulmonology to eval -01/04: Switch back to Eliquis 01/05, bicarb still more than 45.? Last echo in 11/23/2022 reported EF 70% severely dilated right ventricle, moderate global RV systolic dysfunction.? No MS/MR.? Trivial TR, PASP 55 to 60 mmHg.? No aortic stenosis.? No AI. 01/06 bicarb is still very high. #Paroxysmal A-fib On amiodarone Eliquis #Leukocytosis -Presentation white count was 18,100 and white count earlier in the same day was 12,200. 01/04: WBC count normal.? Leukocytosis resolved #Acute on chronic thrombocytosis -Likely reactive, trend. 01/04: #Chronic anemia -Stable -EGD 12/21 w/ intact gastrostomy w/ gtube and single bleeding angiodysplastic lesion in stomach treated w/ heater probe -Transfuse if <7 -Started on PO iron last admission -Will need outpt colonoscopy and capsule endoscopy 01/07: Hemoglobin is still low 7.3. #hx CAD s/p stents -[id number] RCA w/ 3.0 x 20 mm Synergy Stent and Prox-Mid RCA w/ 3.5 x 24 mm Synergy Stent 06/18/2020 -Was on triple therapy, only on eliquis and asa now. #Dysphagia/severe protein calorie malnutrition -PEG tube placed 11/30/2022 after she required intubation during hospitalization from 11/21/2022 to 11/27/2022 and had persistent dysphagia.? Continues to maintain nutrition via PEG tube -With tube feeding.? Dietitian consult for recommendation. #Stage III decubitus ulcer -Apply wet-to-dry dressing.? Wound care consult. #Hypothyroidism -Continue Synthroid #DVT prophylaxis/history of PE On Eliquis. Charges/Coding Visit Charges Inpatient E&M: 90534 Subs Hosp L2
[2023-01-08] MEDS: Lansoprazole 15 MG Capsule.DR 30 MG GT (11:51)
[2023-01-08] MEDS: APIXABAN 5 MG TABLET GT ×2 (11:51→22:52)
[2023-01-08] MEDS: Amiodarone 200 MG Tablet GT (11:51)
[2023-01-08] MEDS: Potassium Chloride Oral Tablet 20 MEQ GT (11:51)
[2023-01-08] MEDS: Montelukast 10 MG Tablet GT (11:52)
--- NOTE | 2023-01-08 13:46 | CASEMGMT ---
ROSMERY spoke with patient's son Damion per his request. Damion wanted to clarify where and why his mom is being transferred. ROSMERY let Damion know patient is going to be transferred to [facility] to be evaluated by a cardiothoracic surgeon. Damion thanked ROSMERY for the update. Gisella Pires BORDER INSPECTOR [employer]ARRAH
--- NOTE | 2023-01-08 16:07 | CASEMGMT ---
ROSMERY received a phone call from patient's son Damion. Damion was confused as he feels it is being implied that he made the decision to pursue further treatment. Damion thinks someone spoke with his brother who is not the healthcare power of policy analyst. ROSMERY went through the notes. ROSMERY did tell Damion that Dr Meredith did let ROSMERY know he spoke with patient about pursuing further treatment of going Hospice. Patient chose further treatment as she would like to know what is wrong. Damion thanked ROSMERY and this relieved him to know it was his mom who made that decision. ROSMERY did let Damion know it does take time to get a bed at [facility]. Gisella Pires ESCALATOR CONSTRUCTOR FARRAH
[2023-01-08] MEDS: Atorvastatin Calcium 40 MG Tablet GT (22:52)
[2023-01-09] VITALS (16 sets, daily range): BP systolic 104–132; BP diastolic 63–83; PULSE 89–110; RESP 14–28; TEMP 35.9–36.8; O2SAT 84–100; BMI 22.1
[2023-01-09] MEDS: 0.9% Saline Lock 10 ML Syringe IV ×6 (01:12→23:01)
[2023-01-09] MEDS: LORazepam 2 MG/ML Syringe 0.5 MG IV ×7 (01:12→21:29)
[2023-01-09] MEDS: busPIRone 5 MG Tablet PO ×3 (05:43→21:20)
[2023-01-09] MEDS: Nystatin Powder 15gm Bottle 1 APPLIC TOPICAL ×3 (05:43→21:20)
[2023-01-09] MEDS: guaiFENesin 10 ML UDC (200MG/10ML) GT ×4 (05:44→23:01)
[2023-01-09] MEDS: Levothyroxine 88 MCG Tablet GT (05:44)
[2023-01-09] MEDS: MethylPREDNISolone 125 MG/2 ML Vial 60 MG IV ×4 (05:44→23:01)
[2023-01-09] MEDS: Ipratropium 0.5 MG/2.5 ML SOLUTION INHALATION ×4 (06:59→19:02)
[2023-01-09] MEDS: Budesonide Respules 0.5 MG/2 ML AMPUL.NEB. INHALATION ×2 (06:59→19:02)
[2023-01-09] MEDS: Iron Polysaccharide Complex 150 MG CAPSULE GT (08:00)
[2023-01-09] MEDS: Jevity 1.5. 1,000 ML Bottle 180 ML GT ×5 (08:00→22:55)
[2023-01-09] MEDS: Aspirin 81 MG TAB.CHEW GT (08:00)
[2023-01-09] MEDS: Juven (unflavored) Packet 1 PACKET GT ×2 (08:00→17:49)
[2023-01-09] MEDS: Lansoprazole 15 MG Capsule.DR 30 MG GT (10:45)
[2023-01-09] MEDS: Potassium Chloride Oral Tablet 20 MEQ GT (10:45)
[2023-01-09] MEDS: APIXABAN 5 MG TABLET GT ×2 (10:46→21:20)
[2023-01-09] MEDS: Montelukast 10 MG Tablet GT (10:47)
[2023-01-09] MEDS: Amiodarone 200 MG Tablet GT (10:47)
[2023-01-09] MEDS: Acetaminophen 650 MG/20 ML UDC GT ×2 (10:59→17:49)
--- NOTE | 2023-01-09 14:32 | PCM.PN.HOSP ---
Reason for Visit Reason for Visit: Diagnoses Unspecified diastolic (congestive) heart failure (12/30/22) Acute pulmonary edema (12/30/22) Acute and chronic respiratory failure with hypoxia (12/30/22) Respiratory failure, unspecified, unspecified whether with hypoxia or hypercapnia (12/30/22) Pressure ulcer of unspecified site, unspecified stage (12/30/22) Dependence on other enabling machines and devices (12/30/22) Subjective Subjective Patient is still on AVAPS. No significant improvement. Objective Data Objective Data Vital Signs: Vital Signs Temp Pulse Resp BP Pulse Ox O2 Del Method O2 Flow Rate 96.9 F L 92 15 132/83 H 97 Bi-pap 5 01/09/23 06:00 01/09/23 10:13 01/09/23 10:13 01/09/23 06:00 01/09/23 06:59 01/09/23 06:00 01/08/23 11:51 FiO2 60 01/09/23 06:59 Oxygen Flow Rate (L/min) 5 Oxygen Delivery Method Bi-pap Weight: 105 lb 13.15 oz Body Mass Index (BMI) 22.1 Intake & Output: Intake and Output for Last 24 Hours 01/07/23 01/08/23 01/09/23 23:59 23:59 23:59 Intake Total 1945 / 2335 990 / 990 Output Total 1700 / 2800 2350 / 2600 800 / 800 Balance 245 / -465 -1360 / -1610 -800 / -800 Medical Nutrition Assessment Dietitian: Malnutrition Criteria Met Start: 12/31/22 09:54 Freq: Status: Active Protocol: Document 12/31/22 09:54 AG (Rec: 12/31/22 09:54 [id number]) Nutrition Malnutrition Evidence of Malnutrition Exists Yes Malnutrition (severe): Chronic Evidenced By Suboptimal Energy Intake ( Severe),Physical Changes ( Severe) Clinical Problem Chronic Disease or Condition Related Malnutrition Etiology chronic severe malnutrition related to inadequate energy intake Signs/Symptoms as evidenced by as evidenced by estimated PO intake meeting <75% of estimated energy needs > 3 months, severe fat/ muscle wasting per physical exam in orbital, temporal, clavicle, and acromion areas Status Active Problem Recommendation Dietitian Recommendations/Changes 1) Bolus feeds via PEG- Jevity 1.5 180mL bolus 5x/day w/ 60mL H2O flush before and after each bolus to provide 1350 calories, 57 g protein, and 1284mL fluid/day. 2) John BID via PEG. 3) Daily wts. Lab / Micro Data Result Diagrams: 01/07/23 04:50 01/07/23 04:50 Micro: Microbiology 12/30/22 23:10 Blood Culture (Wb) - Anticubital Right Blood Culture - Final No growth in 5 days. 12/30/22 23:05 Blood Culture (Wb) - Anticubital Left Blood Culture - Final No growth in 5 days. Physical Exam Narrative Seen and examined. Discussed with the nursing staff. No acute change. Patient is still on AVAPS. Waiting for the [facility] bed to open. Physical exam General: Awake, opens eyes. Oriented x3, Cooperative HEENT: Atraumatic, PERRLA, EOMI, Normocephalic, low pitched voice. Oral: On AVAPS. Neck: Supple, No JVD, Negative Carotid Bruits Lungs:? Air entry diminished in bilateral lung bases.? Kyphotic chest wall.? No wheezing/rhonchi. Cardiovascular: Regular rate, Regular Rhythm, Normal S1, Normal S2, systolic murmur. Abdomen: PEG tube.? Bowel Sounds Present, Soft, Non Tender, Non-Distended : Clear urine no renal angle tenderness.? No suprapubic tenderness. Extremities: Bilateral leg edema.? Capillary Refill Less than 3 Seconds Skin: No rashes, No breakdown Musculoskeletal: No Tenderness to Palpation of Joints or Extremities.? RLE shorter than LLE, mild contracture right knee, ROM severely limited. Neurological: Cranial nerves II-XII grossly intact, DTR? 2+/4 and Symmetrical, Neuro grossly intact Psych/Mental Status: Flat affect Assessment & Plan Assessment/Plan (1) BiPAP (biphasic positive airway pressure) dependence: (2) Respiratory failure: PLAN: Plan #Acute on chronic hypoxic respiratory failure secondary to Acute on chronic heart failure with preserved ejection fraction/flash pulm edema, underlying bronchiectasis and recurrent pleural effusion -Discharged earlier the same day of presentation after admission for acute on chronic hypoxic respiratory failure secondary to aspiration pneumonia with possible flash pulmonary edema complicated by recurrent pleural effusions. Chest x-ray demonstrated bilateral pleural effusions though does have chronic effusions but x-ray appeared worse than 2 days prior.? On review of medical record, the patient used to follow with? with [facility] and several years ago had an FEV1 of 53% and significant COPD 01/04: Patient respiratory status is stabilized on BiPAP/AVAPS at night and high flow oxygen during daytime.? Patient being followed by supervisor stave cutting.? On Atrovent aerosol to prevent tachyarrhythmia exacerbation.? Recommended transfer to cardiothoracic surgery evaluation as inpatient versus initiation of hospice care. 01/05: Discussed with supervisor stave cutting.? Patient sent to does not want hospice care but rather transfer to tertiary care facility for evaluation of cardiothoracic surgery.? Patient cannot be weaned off BiPAP/AVAPS.? She was on high flow oxygen for short time but put back on AVAPS, current setting TV 350 mL, RR 12, EPAP 12, P24 to p16 and FiO2 varies 40 to 60%.? Patient on respiratory rate 25-30/m.? I called [facility] but they do not have bed and they are not taking transfer except the room trauma patient's.? I called [facility] and gave clinical detail to the transfer engineer and waiting for the call back from the physician. 01/06: Different hospitals were called.? [facility] suggested that she will be better served in [facility] as they have advanced interventional pulmonary/thoracic surgery service.? [facility] was called and clinical information was exchanged with thoracic surgeon Dr. Shirley Clement and she agreed to see the patient as inpatient consult once patient is admitted in ICU.? Afterwards I talked to the congressional aide Dr. Hanley and he accepted the patient in ICU.? Patient is pending transfer to [facility] for bed availability 01/07: [facility] still does not have beds open. Charge nurse to call [facility] to find out our priority list. Patient respiratory status is same. 01/08: [facility] still does not Bed. Patient had a bowel movement. Still on AVAPS. Patient has Andino catheter. 01/[address] [facility] we will try to talk to congressional aide, Dr Monzon and he said he has 3 patients on the waiting list therefore she might probably go in the next 24 to 48 hours.. Patient does not have bed. #recurrent pleural effusions -Had previous VATS and pleurodesis on the right and in 2019 had Pleurx catheter on the left side in 2019. The patient had R thoracentesis 11/26/22 w/ removal of 525cc stephen colored fluid -01/04: Continuing AVAPS.? Diuretics held because of rising bicarbonate 01/06: Chest x-ray reviewed.? No significant pleural effusion for thoracocentesis.? Patient is also physically compromised for any procedure. #Hx chronic HFpEF/RV dysfunction and mod pulm HTN/recent PE's/bronchiectasis -On bipap, IV diuretics held due to rising bicarbonate -Pulmonology to eval -01/04: Switch back to Eliquis 01/05, bicarb still more than 45.? Last echo in 11/23/2022 reported EF 70% severely dilated right ventricle, moderate global RV systolic dysfunction.? No MS/MR.? Trivial TR, PASP 55 to 60 mmHg.? No aortic stenosis.? No AI. 01/06 bicarb is still very high. 01/09 1 repeat blood work ordered. #Paroxysmal A-fib On amiodarone Eliquis #Leukocytosis -Presentation white count was 18,100 and white count earlier in the same day was 12,200. 01/04: WBC count normal.? Leukocytosis resolved #Acute on chronic thrombocytosis -Likely reactive, trend. 01/04: #Chronic anemia -Stable -EGD 12/21 w/ intact gastrostomy w/ gtube and single bleeding angiodysplastic lesion in stomach treated w/ heater probe -Transfuse if <7 -Started on PO iron last admission -Will need outpt colonoscopy and capsule endoscopy 01/07: Hemoglobin is still low 7.3. #hx CAD s/p stents -[id number]-[id number] RCA w/ 3.0 x 20 mm Synergy Stent and Prox-Mid RCA w/ 3.5 x 24 mm Synergy Stent 06/18/2020 -Was on triple therapy, only on eliquis and asa now. #Dysphagia/severe protein calorie malnutrition -PEG tube placed 11/30/2022 after she required intubation during hospitalization from 11/21/2022 to 11/27/2022 and had persistent dysphagia.? Continues to maintain nutrition via PEG tube -With tube feeding.? Dietitian consult for recommendation. #Stage III decubitus ulcer -Apply wet-to-dry dressing.? Wound care consult. #Hypothyroidism -Continue Synthroid #DVT prophylaxis/history of PE On Eliquis. Charges/Coding Visit Charges Inpatient E&M: 53987 Subs Hosp L2
[2023-01-09] MEDS: Atorvastatin Calcium 40 MG Tablet GT (21:20)
--- NOTE | 2023-01-09 22:28 | CPS ---
Patient initially on 65% on bipap. Sp02 was 100%, therefore fio2 weaned to 55%. Patient didn't tolerate this however and desat to low 80's. Fio2 increased to 100%.
[2023-01-10] VITALS (25 sets, daily range): BP systolic 105–127; BP diastolic 62–78; PULSE 89–109; RESP 14–35; TEMP 36.2–36.9; O2SAT 85–100; BMI 21.4
[2023-01-10] MEDS: Acetaminophen 650 MG/20 ML UDC GT ×2 (00:04→07:19)
[2023-01-10] MEDS: LORazepam 2 MG/ML Syringe 0.5 MG IV ×8 (05:14→23:37)
[2023-01-10] MEDS: 0.9% Saline Lock 10 ML Syringe IV ×7 (05:14→23:37)
[2023-01-10] MEDS: Nystatin Powder 15gm Bottle 1 APPLIC TOPICAL ×3 (05:15→21:24)
[2023-01-10] MEDS: Jevity 1.5. 1,000 ML Bottle 180 ML GT ×4 (05:19→21:23)
[2023-01-10] MEDS: busPIRone 5 MG Tablet PO ×3 (05:19→21:23)
[2023-01-10] MEDS: Levothyroxine 88 MCG Tablet 132 MCG GT (05:19)
[2023-01-10] MEDS: guaiFENesin 10 ML UDC (200MG/10ML) GT ×3 (05:19→21:23)
[2023-01-10] MEDS: MethylPREDNISolone 125 MG/2 ML Vial 60 MG IV ×3 (05:30→20:05)
[2023-01-10 06:26] LABS: Absolute Lymphocyte Count 0.09 X10^3/uL (0.83-4.51); Absolute Neutrophil Count 11.4 X10^3/uL (2.0-7.7); Basophil# 0.01 X10^3/uL; Basophil% 0.1 % (0-1); Hematocrit 30.6 % (37-47); Hemoglobin 8.7 g/dL (12.0-15.0); Lymphocyte # 0.09 X10^3/ul (0.83-4.51); Lymphocyte % 0.8 % (19-41); Mean Corp Hgb Conc 28.4 g/dL (32-36); Mean Corpuscular Hgb 24.2 pg (27.0-32.0); Monocyte# 0.38 X10^3/uL; Monocyte% 3.2 % (0-10); NRBC Flagged by Analyzer 0 % (0-5); Neutrophil # 11.37 X10^3/uL (2.7-7.7); Neutrophil % 95.3 % (47-70); POSITIVE DIFFERENTIAL YES; POSITIVE MORPHOLOGY YES; Platelet Count 482 K/mm3 (150-450); RBC Distribution Width CV 21.5 % (11.6-14.6); RBC Distribution Width SD 65.2 fl (35.1-43.9); White Blood Count 11.9 K/mm3 (4.4-11.0)
[2023-01-10 06:29] LABS: Differential Indicated SCAN CRITERIA MET
[2023-01-10 06:43] LABS: Anisocytosis 2+; Platelet Estimate SLT INC (ADEQ); Platelet Morphology LARGE
[2023-01-10] MEDS: Ipratropium 0.5 MG/2.5 ML SOLUTION INHALATION ×4 (06:46→20:03)
--- NOTE | 2023-01-10 06:46 | CPS ---
This R.T. changed H2O bag on BIPAP.
[2023-01-10 06:52] LABS: Anion Gap 5 (5-15); BUN 32 mg/dL (7-18); BUN/Creat Ratio 111.9 RATIO (10-20); Calcium,Total 8.1 mg/dL (8.5-10.1); Chloride 92 mmol/L (98-107); Creatinine, Serum 0.29 mg/dL (0.55-1.02); EST Glomerular Filtration Rate 250 mL/min (>60); Est Glom Filt Rate - Afr Amer 303 mL/min (>60); Estimated Creatinine Clearance 141.97 ml/min; Glucose 179 mg/dL (74-106); Sodium Level 136 mmol/L (136-145)
[2023-01-10] MEDS: Juven (unflavored) Packet 1 PACKET GT (08:07)
[2023-01-10] MEDS: Iron Polysaccharide Complex 150 MG CAPSULE GT (08:08)
[2023-01-10] MEDS: Aspirin 81 MG TAB.CHEW GT (08:08)
[2023-01-10] MEDS: Montelukast 10 MG Tablet GT (10:53)
[2023-01-10] MEDS: Lansoprazole 15 MG Capsule.DR 30 MG GT (10:53)
[2023-01-10] MEDS: APIXABAN 5 MG TABLET GT ×2 (10:53→21:25)
[2023-01-10] MEDS: Amiodarone 200 MG Tablet GT (10:53)
[2023-01-10] MEDS: Potassium Chloride Oral Tablet 20 MEQ GT (10:54)
--- NOTE | 2023-01-10 12:03 | PCM.PN.HOSP ---
Reason for Visit Reason for Visit: Diagnoses Unspecified diastolic (congestive) heart failure (12/30/22) Acute pulmonary edema (12/30/22) Acute and chronic respiratory failure with hypoxia (12/30/22) Respiratory failure, unspecified, unspecified whether with hypoxia or hypercapnia (12/30/22) Pressure ulcer of unspecified site, unspecified stage (12/30/22) Dependence on other enabling machines and devices (12/30/22) Subjective Subjective Follow-up for acute hypoxic and hypercarbic respiratory failure. Objective Data Objective Data Vital Signs: Vital Signs Temp Pulse Resp BP Pulse Ox O2 Del Method O2 Flow Rate 98.4 F 100 26 H 114/67 90 Bi-pap 15 01/10/23 09:30 01/10/23 11:14 01/10/23 11:14 01/10/23 09:30 01/10/23 11:14 01/10/23 10:52 01/10/23 09:35 FiO2 50 01/10/23 11:14 Oxygen Flow Rate (L/min) 15 Oxygen Delivery Method Bi-pap Weight: 102 lb 8.239 oz Body Mass Index (BMI) 21.4 Intake & Output: Intake and Output for Last 24 Hours 01/08/23 01/09/23 01/10/23 23:59 23:59 23:59 Intake Total 990 / 990 2280 / 2280 300 / 300 Output Total 2350 / 2600 1650 / 1650 450 / 450 Balance -1360 / -1610 630 / 630 -150 / -150 Medical Nutrition Assessment Dietitian: Malnutrition Criteria Met Start: 12/31/22 09:54 Freq: Status: Active Protocol: Document 12/31/22 09:54 AG (Rec: 12/31/22 09:54 [id number]) Nutrition Malnutrition Evidence of Malnutrition Exists Yes Malnutrition (severe): Chronic Evidenced By Suboptimal Energy Intake ( Severe),Physical Changes ( Severe) Clinical Problem Chronic Disease or Condition Related Malnutrition Etiology chronic severe malnutrition related to inadequate energy intake Signs/Symptoms as evidenced by as evidenced by estimated PO intake meeting <75% of estimated energy needs > 3 months, severe fat/ muscle wasting per physical exam in orbital, temporal, clavicle, and acromion areas Status Active Problem Recommendation Dietitian Recommendations/Changes 1) Bolus feeds via PEG- Jevity 1.5 180mL bolus 5x/day w/ 60mL H2O flush before and after each bolus to provide 1350 calories, 57 g protein, and 1284mL fluid/day. 2) John BID via PEG. 3) Daily wts. Lab / Micro Data Result Diagrams: 01/10/23 05:35 01/10/23 05:35 Labs: Laboratory Results - last 24 hr 01/10/23 05:35: WBC 11.9 H, RBC 3.60 L, Hgb 8.7 L, Hct 30.6 L, MCV 85.0, MCH 24.2 L, MCHC 28.4 L, RDW Std Deviation 65.2 H, RDW Coeff of Angie 21.5 H, Plt Count 482 H, MPV 11.0, Immature Gran % (Auto) 0.600, Neut % (Auto) 95.3 H, Lymph % (Auto) 0.8 L, [place] % (Auto) 3.2, Eos % (Auto) 0.0, Baso % (Auto) 0.1, Absolute Neuts (auto) 11.4 H, Absolute Lymphs (auto) 0.09 L, Nucleated RBC % 0, Platelet Estimate SLT INC, Plt Morphology Comment LARGE, Anisocytosis 2+ 01/10/23 05:35: Sodium 136, Potassium 4.0, Chloride 92 L, Carbon Dioxide 39.0 H, Anion Gap 5, BUN 32 H, Creatinine 0.29 L, Estim Creat Clear Calc 141.97, Est GFR (MDRD) Af Amer 303, Est GFR (MDRD) Non-Af 250, BUN/Creatinine Ratio 111.9 H, Glucose 179 H, Calcium 8.1 L Micro: Microbiology 12/30/22 23:10 Blood Culture (Wb) - Anticubital Right Blood Culture - Final No growth in 5 days. 12/30/22 23:05 Blood Culture (Wb) - Anticubital Left Blood Culture - Final No growth in 5 days. Physical Exam Narrative Seen and examined. Discussed with the nursing staff. No acute change. Patient had bowel movement yesterday and it was hard. Patient is still on AVAPS. Waiting for the [facility] bed to open. Physical exam General: Awake, opens eyes. Oriented x3, could not get off AVAPS. HEENT: Atraumatic, PERRLA, EOMI, Normocephalic, low pitched voice. Oral: On AVAPS. Neck: Supple, No JVD, Negative Carotid Bruits Lungs:? Air entry diminished in bilateral lung bases.? Kyphotic chest wall.? No wheezing/rhonchi. Cardiovascular: Regular rate, Regular Rhythm, Normal S1, Normal S2, systolic murmur. Abdomen: PEG tube feeding..? Bowel Sounds Present, Soft, Non Tender, Non-Distended : Clear urine no renal angle tenderness.? No suprapubic tenderness. Extremities: Bilateral leg edema.? Capillary Refill Less than 3 Seconds Skin: No rashes, No breakdown Musculoskeletal: No Tenderness to Palpation of Joints or Extremities.? RLE shorter than LLE, mild contracture right knee, ROM severely limited. Neurological: Cranial nerves II-XII grossly intact, DTR? 2+/4 and Symmetrical, Neuro grossly intact Psych/Mental Status: Flat affect Assessment & Plan Assessment/Plan (1) BiPAP (biphasic positive airway pressure) dependence: (2) Respiratory failure: PLAN: Plan #Acute on chronic hypoxic respiratory failure secondary to Acute on chronic heart failure with preserved ejection fraction/flash pulm edema, underlying bronchiectasis and recurrent pleural effusion -Discharged earlier the same day of presentation after admission for acute on chronic hypoxic respiratory failure secondary to aspiration pneumonia with possible flash pulmonary edema complicated by recurrent pleural effusions. Chest x-ray demonstrated bilateral pleural effusions though does have chronic effusions but x-ray appeared worse than 2 days prior.? On review of medical record, the patient used to follow with? with [facility] and several years ago had an FEV1 of 53% and significant COPD 01/04: Patient respiratory status is stabilized on BiPAP/AVAPS at night and high flow oxygen during daytime.? Patient being followed by nutrition therapist.? On Atrovent aerosol to prevent tachyarrhythmia exacerbation.? Recommended transfer to cardiothoracic surgery evaluation as inpatient versus initiation of hospice care. 01/05: Discussed with nutrition therapist.? Patient sent to does not want hospice care but rather transfer to tertiary care facility for evaluation of cardiothoracic surgery.? Patient cannot be weaned off BiPAP/AVAPS.? She was on high flow oxygen for short time but put back on AVAPS, current setting TV 350 mL, RR 12, EPAP 12, P24 to p16 and FiO2 varies 40 to 60%.? Patient on respiratory rate 25-30/m.? I called [facility] but they do not have bed and they are not taking transfer except the room trauma patient's.? I called [facility] and gave clinical detail to the hotbed transfer operator and waiting for the call back from the physician. 01/06: Different hospitals were called.? [facility] suggested that she will be better served in [facility] as they have advanced interventional pulmonary/thoracic surgery service.? [facility] was called and clinical information was exchanged with thoracic surgeon Dr. Shirley Clement and she agreed to see the patient as inpatient consult once patient is admitted in ICU.? Afterwards I talked to the environmental compliance technician Dr. Hanley and he accepted the patient in ICU.? Patient is pending transfer to [facility] for bed availability 01/07: [facility] still does not have beds open. Charge nurse to call [facility] to find out our priority list. Patient respiratory status is same. 01/08: [facility] still does not Bed. Patient had a bowel movement. Still on AVAPS. Patient has Andino catheter. 01/09 I called [facility] we will try to talk to environmental compliance technician, Dr Monzon and he said he has 3 patients on the waiting list therefore she might probably go in the next 24 to 48 hours.. Patient does not have bed. 01/10: I had already called [facility] and probably might be discharged today or tomorrow. Rest as already mentioned above. #recurrent pleural effusions -Had previous VATS and pleurodesis on the right and in 2019 had Pleurx catheter on the left side in 2019. The patient had R thoracentesis 11/26/22 w/ removal of 525cc stephen colored fluid -01/04: Continuing AVAPS.? Diuretics held because of rising bicarbonate 01/06: Chest x-ray reviewed.? No significant pleural effusion for thoracocentesis.? Patient is also physically compromised for any procedure. #Hx chronic HFpEF/RV dysfunction and mod pulm HTN/recent PE's/bronchiectasis -On bipap, IV diuretics held due to rising bicarbonate -Pulmonology to eval -01/04: Switch back to Eliquis 01/05, bicarb still more than 45.? Last echo in 11/23/2022 reported EF 70% severely dilated right ventricle, moderate global RV systolic dysfunction.? No MS/MR.? Trivial TR, PASP 55 to 60 mmHg.? No aortic stenosis.? No AI. 01/06 bicarb is still very high. #Paroxysmal A-fib On amiodarone Eliquis #Leukocytosis -Presentation white count was 18,100 and white count earlier in the same day was 12,200. 01/04: WBC count normal.? Leukocytosis resolved #Acute on chronic thrombocytosis -Likely reactive, trend. 01/04: #Chronic anemia -Stable -EGD 12/21 w/ intact gastrostomy w/ gtube and single bleeding angiodysplastic lesion in stomach treated w/ heater probe -Transfuse if <7 -Started on PO iron last admission -Will need outpt colonoscopy and capsule endoscopy 01/07: Hemoglobin is still low 7.3. 01/10: Repeat CBC shows improvement in hemoglobin 8.7. Platelet count 482,000. #hx CAD s/p stents -XVA-JHM-Yzepll RCA w/ 3.0 x 20 mm Synergy Stent and Prox-Mid RCA w/ 3.5 x 24 mm Synergy Stent 06/18/2020 -Was on triple therapy, only on eliquis and asa now. #Dysphagia/severe protein calorie malnutrition -PEG tube placed 11/30/2022 after she required intubation during hospitalization from 11/21/2022 to 11/27/2022 and had persistent dysphagia.? Continues to maintain nutrition via PEG tube -With tube feeding.? Dietitian consult for recommendation. #Stage III decubitus ulcer -Apply wet-to-dry dressing.? Wound care consult. #Hypothyroidism -Continue Synthroid #DVT prophylaxis/history of PE On Eliquis. Charges/Coding Visit Charges Inpatient E&M: 97455 Subs Hosp L2
[2023-01-10] MEDS: Albuterol 2.5 MG/3 ML VIAL.NEB. INHALATION (15:43)
[2023-01-10] MEDS: Budesonide Respules 0.5 MG/2 ML AMPUL.NEB. INHALATION (20:03)
[2023-01-10] MEDS: Atorvastatin Calcium 40 MG Tablet GT (21:25)
[2023-01-11] VITALS (21 sets, daily range): BP systolic 114–144; BP diastolic 70–81; PULSE 91–107; RESP 14–96; TEMP 36.2–36.9; O2SAT 29–100
[2023-01-11] MEDS: MethylPREDNISolone 125 MG/2 ML Vial 60 MG IV ×4 (00:57→21:59)
[2023-01-11] MEDS: 0.9% Saline Lock 10 ML Syringe IV ×10 (00:57→22:15)
[2023-01-11] MEDS: LORazepam 2 MG/ML Syringe 0.5 MG IV ×8 (02:27→21:52)
[2023-01-11] MEDS: guaiFENesin 10 ML UDC (200MG/10ML) GT ×3 (05:09→17:20)
[2023-01-11] MEDS: Levothyroxine 88 MCG Tablet GT (05:10)
[2023-01-11] MEDS: busPIRone 5 MG Tablet PO ×3 (05:10→21:54)
[2023-01-11] MEDS: Jevity 1.5. 1,000 ML Bottle 180 ML GT ×5 (05:10→21:58)
[2023-01-11] MEDS: Acetaminophen 650 MG/20 ML UDC GT ×2 (05:21→22:05)
[2023-01-11] MEDS: Budesonide Respules 0.5 MG/2 ML AMPUL.NEB. INHALATION ×2 (07:23→19:29)
[2023-01-11] MEDS: Ipratropium 0.5 MG/2.5 ML SOLUTION INHALATION ×4 (07:23→19:29)
--- NOTE | 2023-01-11 09:06 | NURSING ---
I spoke with Aline at [facility] Transfer line she stated they are still waiting on a bed and couldn't state if she thought it would be today or not.
[2023-01-11] MEDS: Juven (unflavored) Packet 1 PACKET GT ×2 (09:35→17:20)
[2023-01-11] MEDS: Montelukast 10 MG Tablet GT (09:36)
[2023-01-11] MEDS: Lansoprazole 15 MG Capsule.DR 30 MG GT (09:36)
[2023-01-11] MEDS: APIXABAN 5 MG TABLET GT ×2 (09:36→21:55)
[2023-01-11] MEDS: Aspirin 81 MG TAB.CHEW GT (09:36)
[2023-01-11] MEDS: Amiodarone 200 MG Tablet GT (09:36)
[2023-01-11] MEDS: Potassium Chloride Oral Tablet 20 MEQ GT (09:36)
[2023-01-11] MEDS: Iron Polysaccharide Complex 150 MG CAPSULE GT (09:37)
--- NOTE | 2023-01-11 10:27 | NURSING ---
Update given to [facility]. Will call us when bed is available.
--- NOTE | 2023-01-11 10:36 | WOUNDNOTE ---
wound photo: sacrum
[2023-01-11] MEDS: Nystatin Powder 15gm Bottle 1 APPLIC TOPICAL ×2 (15:05→21:56)
--- NOTE | 2023-01-11 15:47 | PCM.PN.HOSP ---
Reason for Visit Reason for Visit: Shortness of breath Objective Data Objective Data Vital Signs: Vital Signs Temp Pulse Resp BP Pulse Ox O2 Del Method O2 Flow Rate 97.3 F L 103 H 28 H 116/74 29 Bi-pap 15 01/11/23 14:54 01/11/23 15:34 01/11/23 15:34 01/11/23 14:54 01/11/23 15:32 01/11/23 14:54 01/11/23 11:50 FiO2 70 01/11/23 15:32 Oxygen Flow Rate (L/min) 15 Oxygen Delivery Method Bi-pap Weight: 46.5 kg Body Mass Index (BMI) 21.4 Intake & Output: Intake and Output for Last 24 Hours 01/09/23 01/10/23 01/11/23 23:59 23:59 23:59 Intake Total 2280 / 2280 1440 / 1440 300 / 300 Output Total 1650 / 1650 1200 / 1550 1150 / 1150 Balance 630 / 630 240 / -110 -850 / -850 Medical Nutrition Assessment Dietitian: Malnutrition Criteria Met Start: 12/31/22 09:54 Freq: Status: Active Protocol: Document 12/31/22 09:54 AG (Rec: 12/31/22 09:54 [id number]) Nutrition Malnutrition Evidence of Malnutrition Exists Yes Malnutrition (severe): Chronic Evidenced By Suboptimal Energy Intake ( Severe),Physical Changes ( Severe) Clinical Problem Chronic Disease or Condition Related Malnutrition Etiology chronic severe malnutrition related to inadequate energy intake Signs/Symptoms as evidenced by as evidenced by estimated PO intake meeting <75% of estimated energy needs > 3 months, severe fat/ muscle wasting per physical exam in orbital, temporal, clavicle, and acromion areas Status Active Problem Recommendation Dietitian Recommendations/Changes 1) Bolus feeds via PEG- Jevity 1.5 180mL bolus 5x/day w/ 60mL H2O flush before and after each bolus to provide 1350 calories, 57 g protein, and 1284mL fluid/day. 2) John BID via PEG. 3) Daily wts. Lab / Micro Data Result Diagrams: 01/10/23 05:35 01/10/23 05:35 Micro: Microbiology 12/30/22 23:10 Blood Culture (Wb) - Anticubital Right Blood Culture - Final No growth in 5 days. 12/30/22 23:05 Blood Culture (Wb) - Anticubital Left Blood Culture - Final No growth in 5 days. Physical Exam Const alert and no apparent distress; Negative for healthy appearing or well nourished Constitutional Narrative: Thin, frail, upper middle-aged, white female, appears older than stated age, lying in bed on BiPAP, no signs of distress at this time, watching television and nods to interact, unable to assess orientation as patient is on BiPAP and unable to acute indicate verbally HEENT head/scalp atraumatic HEENT Narrative: Mucous membranes appear dry from BiPAP, dentition is poor, Mallampati is 1-2, no thrush Head and Scalp: normocephalic Resp no retractions, no use of accessory muscles and No clear to auscultation bilaterally Resp Narrative: Tachypneic, diminished diffusely but no adventitious sounds Auscultation: Negative for rales, rhonchi or wheezes Cardio regular rhythm, S1 normal heart sound, S2 normal heart sound, no murmurs, no rub, no gallops and no clicks Cardio Narrative: Mild tachycardia, GI normal to inspection, nondistended, normoactive bowel sounds and soft to palpation GI Narrative: PEG in place, abdomen is scaphoid Extremity no clubbing, cyanosis or edema Extremity Narrative: Decreased lean muscle mass Neuro Neuro Narrative: Significant generalized weakness with no focal deficits, unable to fully evaluate speech as she is on continuous BiPAP Sensorium / Orientation: awake and alert Speech: Negative for speech normal Psych Psych Narrative: Affect is flat and mood seems depressed, no signs of anxiety at this time Assessment & Plan Assessment/Plan (1) BiPAP (biphasic positive airway pressure) dependence: (2) Acute and chronic respiratory failure with hypoxia: (3) Severe malnutrition: (4) Anemia: (5) Thrombocytosis: (6) Iron deficiency anemia: PLAN: Plan Acute on chronic hypoxic respiratory failure -Multifactorial--> chronic bronchiectasis/HFpEF/chronic pleural effusions/COPD/chronic aspiration/anxiety/history of PE/PAH -VATS and pleurodesis on the right and in 2020 had a Pleurx catheter on the left side in 2019 -original plan was to allow the patient to improve her nutritional status prior to having an outpatient evaluation by cardiothoracic surgery -Fortunately patient has had so many recurrent admissions that this has not been able to be pursued -PFTs done by previous stamp pad finisher from office visit documented 10/29/2020 shows an FEV1 of 36% predicted -It is not clear exactly when this PFT was performed -Patient has essentially remained on continuous BiPAP for about the last 12 days since readmission -Was discharged on 3 L and doing well and returned within 12 hours of discharge with worsening hypoxia -Extensive discussion has been held with family with regards to recommendations for hospice however they would like CT surgery evaluation for her chronic pleural effusions prior to making her hospice -Overall she seems to be a poor surgical candidate with poor functional status at baseline at this time, poor nutrition, and debility -Patient has been accepted to [facility] on 01/05/2023 however we are waiting for bed availability -It is possible that they may have something tomorrow -Patient has been on antibiotics, diuresis, and steroids without any considerable improvement -Continue tube feed via PEG -We will wean steroids to 60 twice daily -Continue aerosols as ordered -Continue tube feeds via PEG -Patient remains on continuous BiPAP and has been since admission 12 days ago -Diuretics are currently on hold due to contraction alkalosis -We will start Diamox 500 g IV daily and monitor closely Recurrent pleural effusions -See above History of subsegmental pulmonary emboli with RV dysfunction and pulmonary hypertension -Continue Eliquis via PEG Severe malnutrition -Most likely due to pulmonary cachexia -Continue tube feed and supplements as ordered -Dietitian is following History of COPD -Patient with PFTs done -PFTs done by previous stamp pad finisher from office visit documented 10/29/2020 shows an FEV1 of 36% predicted -It is not clear exactly when this PFT was performed\ Chronic HFpEF/RV dysfunction/moderate pulmonary hypertension' -Continue treatment as noted above Hypothyroidism -Continue levothyroxine as ordered -TSH is within normal limits on 11/22/2022 Paroxysmal atrial fibrillation -Currently in sinus rhythm however intermittently tachycardic -Continue amiodarone -Continue Eliquis Leukocytosis -Had normalized but trended up in the last 24 hours and -If remains elevated tomorrow repeat chest x-ray and check UA -Patient is afebrile -Has been on steroids Acute on chronic thrombocytosis -Patient with known history of iron deficiency -Continue oral iron via PEG -Did have EGD on 12/21/2022 which showed intact gastrostomy tube with single bleeding angiodysplastic lesion in the stomach that was treated with heater probe -Continue PPI -Hemoglobin overall stable CAD/HPL/HTN -[id number] RCA w/ 3.0 x 20 mm Synergy Stent and Prox-Mid RCA w/ 3.5 x 24 mm Synergy Stent 06/18/2020 -Had been on triple therapy but with GI bleed was transitioned to only Eliquis and aspirin -No chest pain -Echo is stable -Continue statin -Continue metoprolol Osteoporosis -Continue alendronate Anxiety -Continue BuSpar 5 mg 3 times daily DVT prophylaxis -Fully anticoagulated with apixaban CODE STATUS -DNR CCA no intubation Disposition -Patient was accepted for transfer to [facility] on 01/05/2023. Still awaiting bed availability in the ICU. Plan is for transfer once bed becomes available for CT surgery evaluation. Charges/Coding Visit Charges Inpatient E&M: 08821 Subs Hosp L2
[2023-01-11] MEDS: AcetaZOLAMIDE 500 MG/10 ML Vial IV (18:12)
[2023-01-11] MEDS: Atorvastatin Calcium 40 MG Tablet GT (21:55)
[2023-01-12] MEDS: guaiFENesin 10 ML UDC (200MG/10ML) GT ×2 (00:18→05:44)
[2023-01-12] MEDS: LORazepam 2 MG/ML Syringe 0.5 MG IV ×3 (00:27→08:09)
[2023-01-12] MEDS: 0.9% Saline Lock 10 ML Syringe IV ×2 (00:27→03:51)
[2023-01-12 01:44] VITALS: PULSE 94; RESP 14; RESP 16; O2SAT 97
[2023-01-12 03:26] VITALS: BP 115/70; PULSE 98; RESP 20; TEMP 36.4; O2SAT 96
[2023-01-12 03:34] VITALS: PULSE 92; RESP 14; RESP 16; O2SAT 93
[2023-01-12 03:44] VITALS: BMI 21.3
[2023-01-12 04:13] VITALS: BP 126/73; PULSE 85; RESP 15; TEMP 36.3; O2SAT 93
[2023-01-12] MEDS: busPIRone 5 MG Tablet PO (05:43)
[2023-01-12] MEDS: Jevity 1.5. 1,000 ML Bottle 180 ML GT (05:43)
[2023-01-12] MEDS: Levothyroxine 88 MCG Tablet GT (05:44)
[2023-01-12] MEDS: Ipratropium 0.5 MG/2.5 ML SOLUTION INHALATION (06:57)
[2023-01-12] MEDS: Budesonide Respules 0.5 MG/2 ML AMPUL.NEB. INHALATION (06:57)
[2023-01-12 07:08] LABS: Absolute Lymphocyte Count 0.07 X10^3/uL (0.83-4.51); Absolute Neutrophil Count 21.2 X10^3/uL (2.0-7.7); Basophil# 0.02 X10^3/uL; Basophil% 0.1 % (0-1); Hematocrit 30.5 % (37-47); Hemoglobin 8.5 g/dL (12.0-15.0); Lymphocyte # 0.07 X10^3/ul (0.83-4.51); Lymphocyte % 0.3 % (19-41); Mean Corp Hgb Conc 27.9 g/dL (32-36); Mean Corpuscular Hgb 23.8 pg (27.0-32.0); Mean Corpuscular Volume 85.4 fL (81-99); Mean Platelet Vol. 11.3 fl (6.2-12.0); Monocyte# 0.49 X10^3/uL; Monocyte% 2.2 % (0-10); NRBC Flagged by Analyzer 0 % (0-5); Neutrophil # 21.19 X10^3/uL (2.7-7.7); Neutrophil % 96.6 % (47-70); POSITIVE DIFFERENTIAL YES; POSITIVE MORPHOLOGY YES; Platelet Count 606 K/mm3 (150-450); RBC Distribution Width CV 21.5 % (11.6-14.6); RBC Distribution Width SD 64.9 fl (35.1-43.9); Red Blood Count 3.57 M/mm3 (4.2-5.4)
[2023-01-12 07:10] VITALS: PULSE 91; PULSE 97; RESP 14; RESP 18; RESP 19; O2SAT 94
[2023-01-12 07:12] LABS: Differential Indicated SCAN CRITERIA MET
[2023-01-12 07:49] LABS: Anion Gap 5 (5-15); BUN 30 mg/dL (7-18); BUN/Creat Ratio 119.5 RATIO (10-20); Calcium,Total 8.2 mg/dL (8.5-10.1); Chloride 93 mmol/L (98-107); Creatinine, Serum 0.25 mg/dL (0.55-1.02); EST Glomerular Filtration Rate 291 mL/min (>60); Est Glom Filt Rate - Afr Amer 352 mL/min (>60); Estimated Creatinine Clearance 163.98 ml/min; Glucose 182 mg/dL (74-106); Potassium 3.1 mmol/L (3.5-5.1); Sodium Level 135 mmol/L (136-145)
[2023-01-12 07:56] VITALS: BP 150/94; PULSE 104; RESP 30; TEMP 36.3; O2SAT 91
[2023-01-12 07:56] LABS: Anisocytosis 1+; Platelet Estimate MKD INC (ADEQ); Stomatocyte 1+
--- NOTE | 2023-01-12 08:03 | PCM.DC.SUM ---
Providers Date of Admission: 12/30/22 Date of Discharge: 01/12/23 Primary Care Physician: Dr. Atul Garcia MD Consultations 12/30/22 22:42 Consult: Onc/Wound/rock crusher operator Routine Comment: Reason for Consult:: Sacral decubitus ulcer 12/31/22 05:34 Consult: Stockbroker / Pulmonary Medicine Routine Consulting Provider: Bernard Mcguire Reason for Consult: Persistent pleural effusion EMERGENT Consult: No MD Notified: Yes Date Notified: 12/31/22 Time Notified: 06:52 Method of Notification: Text Reason For Visit: acute on chronic hypoxic respiratory failure Diagnosis Discharge Diagnosis (1) BiPAP (biphasic positive airway pressure) dependence: Status: Acute Code(s): Z99.89 - Dependence on other enabling machines and devices (2) Acute and chronic respiratory failure with hypoxia: Status: Chronic Code(s): J96.21 - Acute and chronic respiratory failure with hypoxia (3) Severe malnutrition: Status: Acute Code(s): E43 - Unspecified severe protein-calorie malnutrition (4) Anemia: Status: Acute Code(s): D64.9 - Anemia, unspecified (5) Thrombocytosis: Status: Acute Code(s): D75.839 - Thrombocytosis, unspecified (6) Iron deficiency anemia: Status: Acute Code(s): D50.9 - Iron deficiency anemia, unspecified Plan Acute on chronic hypoxic respiratory failure -Multifactorial--> chronic bronchiectasis/HFpEF/chronic pleural effusions/COPD/chronic aspiration/anxiety/history of PE/PAH -VATS and pleurodesis on the right and in 2019 had a Pleurx catheter on the left side in 2019 -original plan was to allow the patient to improve her nutritional status prior to having an outpatient evaluation by cardiothoracic surgery -Fortunately patient has had so many recurrent admissions that this has not been able to be pursued -PFTs done by previous agriculture laboratory technician from office visit documented 10/29/2020 shows an FEV1 of 36% predicted -It is not clear exactly when this PFT was performed -Patient has essentially remained on continuous BiPAP for about the last 13 days since readmission -Was discharged on 3 L and doing well and returned within 12 hours of discharge with worsening hypoxia -Extensive discussion has been held with family with regards to recommendations for hospice however they would like CT surgery evaluation for her chronic pleural effusions prior to making her hospice -Overall she seems to be a poor surgical candidate with poor functional status at baseline at this time, poor nutrition, and debility this was relayed to the family in conversation however they would like to persist with evaluation at [facility] -Patient has been accepted to [facility] on 01/05/2023 and bed became available today on 01/12/2023 -Patient has been on antibiotics, diuresis, and steroids without any considerable improvement -Continue tube feed via PEG -We will wean steroids to 60 twice daily -Continue aerosols as ordered -Continue tube feeds via PEG -Patient remains on continuous BiPAP and has been since admission 12 days ago -Diuretics are currently on hold due to contraction alkalosis -We will start Diamox 500 g IV daily and monitor closely Leukocytosis -White count has trended up further through the night -Sputum and blood cultures ordered -UA -Start cefepime and vancomycin -Patient has been on steroids however white count was normal previously on steroids Recurrent pleural effusions -See above History of subsegmental pulmonary emboli with RV dysfunction and pulmonary hypertension -Continue Eliquis via PEG Severe malnutrition -Most likely due to pulmonary cachexia -Continue tube feed and supplements as ordered -Dietitian is following History of COPD -Patient with PFTs done -PFTs done by previous agriculture laboratory technician from office visit documented 10/29/2020 shows an FEV1 of 36% predicted -It is not clear exactly when this PFT was performed\ Chronic HFpEF/RV dysfunction/moderate pulmonary hypertension' -Continue treatment as noted above Hypothyroidism -Continue levothyroxine as ordered -TSH is within normal limits on 11/22/2022 Paroxysmal atrial fibrillation -Currently in sinus rhythm however intermittently tachycardic -Continue amiodarone -Continue Eliquis Leukocytosis -Had normalized but trended up in the last 24 hours and -If remains elevated tomorrow repeat chest x-ray and check UA -Patient is afebrile -Has been on steroids Acute on chronic thrombocytosis -Patient with known history of iron deficiency -Continue oral iron via PEG -Did have EGD on 12/21/2022 which showed intact gastrostomy tube with single bleeding angiodysplastic lesion in the stomach that was treated with heater probe -Continue PPI -Hemoglobin overall stable CAD/HPL/HTN -DZT-IGI-Asqenx RCA w/ 3.0 x 20 mm Synergy Stent and Prox-Mid RCA w/ 3.5 x 24 mm Synergy Stent 06/18/2020 -Had been on triple therapy but with GI bleed was transitioned to only Eliquis and aspirin -No chest pain -Echo is stable -Continue statin -Continue metoprolol Osteoporosis -Continue alendronate Anxiety -Continue BuSpar 5 mg 3 times daily DVT prophylaxis -Fully anticoagulated with apixaban CODE STATUS -DNR CCA no intubation Disposition -Patient was accepted for transfer to [facility] on 01/05/2023. Still awaiting bed availability in the ICU. Plan is for transfer once bed becomes available for CT surgery evaluation. Medications at Discharge Home Medications albuterol sulfate 90 mcg/actuation aerosol inhaler 2 puff inhalation Q4H PRN PRN Bronchodialation 09/07/16 omeprazole 20 mg capsule,delayed release 40 mg PO DAILY GERD 09/07/16 ascorbic acid (vitamin C) 500 mg chewable tablet 500 mg PO BIDCM supplement ##0 06/20/20 budesonide 180 mcg/actuation breath activated powder inhaler 1 inh inhalation BID COPD 02/11/21 montelukast 10 mg tablet 10 mg PO DAILY Breathing 02/11/21 vitamin B complex (B Complex-Vitamin B12 tablet) 1 tab PO DAILY Supplement 02/11/21 colchicine 0.6 mg tablet 0.6 mg PO DAILY gout #30 tabs 01/14/22 levothyroxine 88 mcg tablet 88 mcg PO MOTUWETHFRSA Thyroid 01/20/22 acetaminophen 500 mg tablet 1,000 mg PO Q6H PRN Pain 06/17/22 multivitamin 1 tab PO DAILY supplement 07/08/22 bumetanide 1 mg tablet 1 mg PO DAILY water pill #90 tabs 09/21/22 amiodarone 200 mg tablet 200 mg PO DAILY Heart Rhythm 12/20/22 aspirin 81 mg tablet,delayed release 81 mg PO DAILY Heart health 12/20/22 atorvastatin 40 mg tablet 40 mg PO QHS Cholestrol 12/20/22 ipratropium 20 mcg-albuterol 100 mcg/actuation mist for inhalation 1 puff inhalation Q4H Breathing 12/20/22 alendronate 70 mg tablet 1 tablet PO QWEEK Bone health 30 days #0 tabs 12/30/22 apixaban 5 mg tablet (Eliquis) 5 mg feeding tube BID Blood thinner afib 30 days #0 tabs 12/30/22 arginine 7 gram-glutam 7 gram-CaHMB 1.5 wefl-qpusc-oy-min oral pwd pkt (John (with collagen)) 1 packet G-tube BIDCM Check with primary doctor 12/30/22 arginine 7 gram-glutam 7 gram-CaHMB 1.5 djid-vflrh-hp-min oral pwd pkt (John (with collagen)) 1 packet PO BID Check with primary doctor 12/30/22 guaifenesin 100 mg/5 mL oral liquid 200 mg G-tube Q6 Check with primary doctor 12/30/22 lactose-reduced food with fiber 0.06 gram-1.5 kcal/mL oral liquid (Jevity 1.5 Supa) 180 ml G-tube 0600,1000,1400,2000,2200 Check with primary doctor 12/30/22 lorazepam 0.5 mg tablet 0.5 mg PO BID PRN PRN Anxiety 3 days #6 tabs 12/30/22 metoprolol tartrate 25 mg tablet 12.5 mg PO BID Blood pressure #30 tabs 12/30/22 polysaccharide iron complex 150 mg iron capsule (Ferrex) 150 mg PO DAILYCM Check with primary doctor 12/30/22 potassium chloride 10 mEq tablet,extended release 20 meq PO DAILY Supplement 30 days #0 tabs 12/30/22 Hospital Course Procedures EKG and - (Chest x-ray x3) Summary of Care Provided Minutes Spent on Discharge: 38 Hospital Course: Mrs. Everett is a 67-year-old white female with multiple comorbidities who represented to the emergency department at [facility] on 12/30/2022. She was admitted from 12/23/2022 through 12/30/2022 for acute hypoxic respiratory failure and required BiPAP. It was felt that hospitalization that her respiratory failure was related to aspiration pneumonia and a PEG was placed as well as her chronic bronchiectasis, recent pulmonary emboli, recurrent pleural effusions, pulmonary hypertension, and COPD at baseline. Pulmonology evaluated during the course and she completed a 7-day course of antibiotics. She did have fluctuations in her oxygen requirements through the hospital course and was given some Lasix with improving leg edema and was able to be discharged on 12/30/2022 on 2 L nasal cannula. At that time she was also found to be fecal occult blood positive and underwent an EGD at which time a single bleeding angiodysplastic lesion was noted. She represented later that day after being home for less than 12 hours with worsening shortness of breath that started about an hour and a half prior to presentation from the [facility] to which she was discharged. Upon presentation she complained of feeling like there was something stuck in her throat. She had no other concomitant symptoms other than her respiratory distress and was placed on BiPAP in the emergency department. It was initially felt that her respiratory distress was related to flash pulmonary edema given the rapidity of onset and improvement initially with diuresis however the patient had ongoing respiratory distress throughout her hospital course requiring BiPAP predominantly throughout her hospitalization. Attempts to wean were overall unsuccessful. She was diuresed, placed on steroids which are currently being weaned. She was on 60 every 6 for 8 days which was tapered to 60 twice daily on 01/11/2023. These will need to be slowly tapered. She was also placed on azithromycin for anti-inflammatory purposes. Acute infection was not highly suspected. Pulmonary medicine again evaluated the patient and after extensive review of her previous records which did demonstrate that she did undergo a VATS and pleurodesis on the right and in 2019 had a Pleurx catheter on the left side in 2019.? The original plan was to allow patient to improve her nutritional status prior to having an outpatient evaluation by cardiothoracic surgery. She was found to have an FEV1 of 36% within the last 3 years at her previous pulmonary medicine office. Overall we suspect that her respiratory failure at this point is multifactoria chronic bronchiectasis/HFpEF/chronic pleural effusions/COPD/chronic aspiration/anxiety/history of PE/PAH. Extensive conversation was had multiple times with the patient and family with regards to hospice services but they were insistent that they wanted CT surgery to evaluate the patient as they felt they could fix her overall condition. She overall is likely a poor surgical candidate due to poor functional status and medical complexity however with their insistence transfer to [facility] was pursued. She was excepted for transfer to [facility] on 01/05/2023 and a bed became available on 01/12/2023. On the day of discharge it was noted that her white count had trended up to 20,000. We did order blood cultures, sputum culture and urinalysis prior to discharge as well as ordered vancomycin and cefepime however I am unsure how much this was able to be completed prior to discharge as transfer picked her up at 8:30 AM on 01/12/2023. She was discharged to [facility] [place] in stable but guarded condition. Discharge diagnoses: Acute on chronic hypoxic respiratory failure -Multifactorial-->chronic bronchiectasis/HFpEF/chronic pleural effusions/COPD/chronic aspiration/anxiety/history of PE/PAH New leukocytosis Recurrent pleural effusions History of subsegmental pulmonary emboli with RV dysfunction Pulmonary hypertension Severe malnutrition History of COPD--> most recent FEV1 was 36% predicted Chronic HFpEF Hypothyroidism Paroxysmal atrial fibrillation Acute on chronic thrombocytosis CAD Hypertension Hyperlipidemia Osteoporosis Anxiety Physical Exam Const alert and no apparent distress; Negative for healthy appearing or well nourished Constitutional Narrative: Thin, frail, upper middle-aged, white female, appears older than stated age, sitting up in in bed on BiPAP, no signs of distress at this time, awake but no significant interaction today, nursing at bedside, unable to assess orientation as patient is on BiPAP and unable to acute indicate verbally General Appearance: ill appearing, frail and appears older than stated age Orientation / Consciousness: awake Exam Limitations: other limitations Nutritional Appearance: cachectic HEENT normocephalic, head/scalp atraumatic and hearing grossly normal bilaterally Eyes PERRL and EOMs intact bilaterally Eyes Narrative: Mild conjunctival pallor, no scleral icterus Neck no lymphadenopathy and supple Neck Narrative: Trachea midline, no thyroid enlargement Resp no retractions, no use of accessory muscles and No clear to auscultation bilaterally Resp Narrative: Tachypneic, diminished diffusely but no adventitious sounds Auscultation: Negative for rales, rhonchi or wheezes Cardio regular rhythm, S1 normal heart sound, S2 normal heart sound, no murmurs, no rub, no gallops and no clicks Cardio Narrative: Mild tachycardia, GI normal to inspection, nondistended, normoactive bowel sounds and soft to palpation GI Narrative: PEG in place, abdomen is scaphoid Extremity no clubbing, cyanosis or edema Extremity Narrative: Markedly decreased lean muscle mass Skin no rashes or lesions noted, no wounds, skin turgor normal and no jaundice Skin Narrative: Skin is thin with scattered ecchymosis in various stages of healing Neuro Neuro Narrative: Significant generalized weakness with no focal deficits, unable to fully evaluate speech as she is on continuous BiPAP Sensorium / Orientation: awake and alert Speech: Negative for speech normal Psych Psych Narrative: Affect is flat and mood seems depressed, no signs of anxiety at this time Medical Records Data Medical Nutrition Assessment Dietitian: Malnutrition Criteria Met Start: 12/31/22 09:54 Freq: Status: Active Protocol: Document 12/31/22 09:54 (Rec: 12/31/22 09:54 [id number]) Nutrition Malnutrition Evidence of Malnutrition Exists Yes Malnutrition (severe): Chronic Evidenced By Suboptimal Energy Intake ( Severe),Physical Changes ( Severe) Clinical Problem Chronic Disease or Condition Related Malnutrition Etiology chronic severe malnutrition related to inadequate energy intake Signs/Symptoms as evidenced by as evidenced by estimated PO intake meeting <75% of estimated energy needs > 3 months, severe fat/ muscle wasting per physical exam in orbital, temporal, clavicle, and acromion areas Status Active Problem Recommendation Dietitian Recommendations/Changes 1) Bolus feeds via PEG- Jevity 1.5 180mL bolus 5x/day w/ 60mL H2O flush before and after each bolus to provide 1350 calories, 57 g protein, and 1284mL fluid/day. 2) John BID via PEG. 3) Daily wts. Weight / BMI Weight Weight: 46.3 kg Body Mass Index (BMI) 21.3 ABG / Lab / Microbiology Data Result Diagrams: 01/12/23 06:16 01/12/23 06:16 Laboratory: Laboratory Results - last 24 hr 01/12/23 06:16: WBC 22.0 H, RBC 3.57 L, Hgb 8.5 L, Hct 30.5 L, MCV 85.4, MCH 23.8 L, MCHC 27.9 L, RDW Std Deviation 64.9 H, RDW Coeff of Angie 21.5 H, Plt Count 606 H, MPV 11.3, Immature Gran % (Auto) 0.800, Neut % (Auto) 96.6 H, Lymph % (Auto) 0.3 L, [place] % (Auto) 2.2, Eos % (Auto) 0.0, Baso % (Auto) 0.1, Absolute Neuts (auto) 21.2 H, Absolute Lymphs (auto) 0.07 L, Nucleated RBC % 0, Differential Comment , Platelet Estimate MKD INC, Anisocytosis 1+, Stomatocytes 1+ 01/12/23 06:16: Sodium 135 L, Potassium 3.1 L, Chloride 93 L, Carbon Dioxide 37.0 H, Anion Gap 5, BUN 30 H, Creatinine 0.25 L, Estim Creat Clear Calc 163.98, Est GFR (MDRD) Af Amer 352, Est GFR (MDRD) Non-Af 291, BUN/Creatinine Ratio 119.5 H, Glucose 182 H, Calcium 8.2 L Microbiology: Microbiology 12/30/22 23:10 Blood Culture (Wb) - Anticubital Right Blood Culture - Final No growth in 5 days. 12/30/22 23:05 Blood Culture (Wb) - Anticubital Left Blood Culture - Final No growth in 5 days. Meaningful Use Info Meaningful Use Diagnoses (Choose all that apply): None applicable Discharge Plan Admission Admit Date/Time: 12/30/22 21:34 Primary Reason for Your Visit: Shortness of Breath Attending Provider: Bailey Mcelroy Primary Care Provider: Atul Garcia Consulting Providers: Steve Schaffer ; Bernard Mcguire ; Lakia Kovacs ; Adrian Mcmanus Discharge Orders/Prescriptions Prescriptions: No Action levothyroxine 88 mcg tablet 88 mcg PO MOTUWETHFRSA Rx Instructions: one and one half tablet wednesday montelukast 10 mg tablet 10 mg PO DAILY vitamin B complex [B Complex-Vitamin B12] Tablet 1 tab PO DAILY omeprazole 20 MG capsule 40 mg PO DAILY Label Comments: ACID REFLUX albuterol sulfate 1 INHALER inhaler 2 puff INHALATION Q4H PRN PRN (Reason: Bronchodialation) Label Comments: SHORTNESS OF BREATH multivitamin Tablet 1 tab PO DAILY Label Comments: SUPPLEMENT ascorbic acid (vitamin C) 500 MG tablet,chewable 500 mg PO BIDCM Qty: 0 0RF Rx Instructions: Take with iron budesonide 180 mcg/actuation aerosol powdr breath activated 1 inh INHALATION BID acetaminophen 500 mg Tablet 1,000 mg PO Q6H PRN (Reason: Pain) atorvastatin 40 mg tablet 40 mg PO QHS amiodarone 200 mg tablet 200 mg PO DAILY aspirin 81 mg tablet,delayed release (DR/EC) 81 mg PO DAILY ipratropium-albuterol 20-100 mcg/actuation mist 1 puff inhalation Q4H alendronate 70 mg tablet 1 tablet PO QWEEK 30 Days Qty: 0 0RF potassium chloride 10 mEq tablet extended release 20 meq PO DAILY 30 Days Qty: 0 0RF lorazepam 0.5 MG tablet 0.5 mg PO BID PRN PRN (Reason: Anxiety) 3 Days Qty: 6 0RF Label Comments: Anxiety metoprolol tartrate 25 mg tablet 12.5 mg PO BID Qty: 30 0RF Rx Instructions: Hold for heart rate <60 or SBP <100 Eliquis 5 mg tablet 5 mg feeding tube BID 30 Days Qty: 0 0RF John (with collagen) 7-7-1.5 gram Powder In Packet 1 packet PO BID Rx Instructions: mix 1 packet with 8-10 oz liquid polysaccharide iron complex [Ferrex 150] 150 mg iron capsule 150 mg PO DAILYCM guaifenesin 100 mg/5 mL liquid 200 mg G-tube Q6 Jevity 1.5 Supa 0.06 gram-1.5 kcal/mL liquid 180 ml G-tube 0600,1000,1400,2000,2200 John (with collagen) 7-7-1.5 gram powder in packet 1 packet G-tube BIDCM colchicine 0.6 mg tablet 0.6 mg PO DAILY Qty: 30 11RF bumetanide 1 mg tablet 1 mg PO DAILY Qty: 90 3RF Referrals / Follow Up: Atul Garcia MD [Primary Care Provider] - Disposition Disposition (needs filled in before D/C Order can be placed): Acute Care Hospital Charges/Coding Visit Charges Inpatient E&M: 43513 Disch Hosp >30min
[2023-01-12] MEDS: APIXABAN 5 MG TABLET GT (08:20)
[2023-01-12] MEDS: Amiodarone 200 MG Tablet GT (08:21)
[2023-01-12] MEDS: Aspirin 81 MG TAB.CHEW GT (08:21)
[2023-01-12] MEDS: Montelukast 10 MG Tablet GT (08:21)
[2023-01-12] MEDS: Lansoprazole 15 MG Capsule.DR 30 MG GT (08:21)
[2023-01-12] MEDS: Juven (unflavored) Packet 1 PACKET GT (08:21)
[2023-01-12] MEDS: Acetaminophen 650 MG/20 ML UDC GT (08:27)
--- NOTE | 2023-01-15 12:55 | CASEMGMT ---
Social Work Pt's son Damion stopped into the ICU to inquire about getting an attestation form signed for work, that states he was here 11/23-11/27 when pt was on life support. SW suggested seeing if the doctor can sign as it's not clear on the form if SW can sign. He did already call Dr. Peterson's office, but she is on vacation. SW suggested he follow up w/Dr. Meredith or Dr. Mcguire. He is going to walk over to the office to ask. If they are not able to sign, SW suggested he find out if a director social can sign, and if so, to follow up w/Gisella Pires as she is here every day and this SW is here intermittently. Damion states understanding. Damion did share pt , SW offered support. SW will assist Damion as able should he follow up w/[facility] dept in the future. ADELAIDA Vogt
== END 2023-01-12 08:54 | disposition short-term general hospital (02) | DRG 291 ==
LOC: ED 21:40 → PCU 21:47
PROVIDERS: Internal Medicine; Internal Medicine Critical Care Medicine; Admitting Provider Hospitalist; Emergency Provider Emergency Medicine; PCP Family Medicine; Visit Provider Internal Medicine
DX: I11.0 Hypertensive heart disease with heart failure (principal); J96.21 Acute and chronic respiratory failure with hypoxia; J96.02 Acute respiratory failure with hypercapnia; J69.0 Pneumonitis due to inhalation of food and vomit; E43 Unspecified severe protein-calorie malnutrition; L89.153 Pressure ulcer of sacral region, stage 3; I50.33 Acute on chronic diastolic (congestive) heart failure; J90 Pleural effusion, not elsewhere classified; L89.139 Pressure ulcer of right lower back, unspecified stage; L89.149 Pressure ulcer of left lower back, unspecified stage; I48.0 Paroxysmal atrial fibrillation; I27.20 Pulmonary hypertension, unspecified; J47.9 Bronchiectasis, uncomplicated; Z93.1 Gastrostomy status; D50.9 Iron deficiency anemia, unspecified; I25.10 Atherosclerotic heart disease of native coronary artery without angina pectoris; E03.9 Hypothyroidism, unspecified; D72.829 Elevated white blood cell count, unspecified; E78.5 Hyperlipidemia, unspecified; F41.9 Anxiety disorder, unspecified; Z79.51 Long term (current) use of inhaled steroids; Z87.891 Personal history of nicotine dependence; Z79.899 Other long term (current) drug therapy; Z79.01 Long term (current) use of anticoagulants; Z95.5 Presence of coronary angioplasty implant and graft; Z51.5 Encounter for palliative care; Z66 Do not resuscitate; M81.0 Age-related osteoporosis without current pathological fracture; Z79.83 Long term (current) use of bisphosphonates; Z86.711 Personal history of pulmonary embolism; Z99.89 Dependence on other enabling machines and devices
CPT/HCPCS: 36415; 36600; 71045; 80048; 80053; 82803; 83605; 83735; 83880; 84100; 84145; 84484; 85025; 85610; 85730; 87040; 93005; 94002; 94003; 94640; 94762; 97802; 97803; 99285; J7050; A4216; J1940